=== PATIENT | male | born 1980 | race Hispanic/Latino ===

== ENCOUNTER 2018-06-16 01:34 | Emergency (ER) | payer OTHER, SELFPAY ==
[2018-06-16] MEDS ORDERED: LIDOCAINE 1% W/EPI 1:100,000 MDV 50 ML VIAL ONE (01:48)
[2018-06-16] MEDS ORDERED: TETANUS & DIPHTHERIA TOX,ADULT 0.5 ML VIAL ONE (01:51)
--- NOTE | 2018-06-16 02:40 | ER ---
Nurse's Notes [facility] Name: Jaleel Olivas Age: 37 yrs Sex: Male : 1980 Arrival Date: 06/16/2018 Time: 01:36 Bed 13 Private MD: Diagnosis: Laceration without foreign body of scalp;Laceration without foreign body of eyelid and periocular area-Right Presentation: 06/16 01:44 Presenting complaint: Patient states: his dog jumped in his lap causing him to trip and bb hit the coffee table with his head he denies LOC has small lac to right upper lid and scalp. Transition of care: patient was not received from another setting of care. Mechanism of Injury: The problem was sustained at home, resulted from a fall. Risk considerations:. Onset of symptoms was June 16, 2018. Risk Assessment: Do you want to hurt yourself or someone else? Patient reports no desire to harm self or others. Initial Sepsis Screen: Does the patient meet any 2 criteria? No. Patient's initial sepsis screen is negative. Does the patient have a suspected source of infection? No. Patient's initial sepsis screen is negative. Care prior to arrival: None. 01:44 Method Of Arrival: Ambulatory bb 01:44 Acuity: LARRY 3 bb Triage Assessment: 01:57 Neuro: Reports. tl2 Historical: - Allergies: 01:48 Codeine; bb 01:48 Tape; bb - Home Meds: 01:48 Complera oral oral [Active]; Metformin Oral [Active]; Lisinopril Oral [Active]; bb - PMHx: 01:48 HIV; Diabetes - NIDDM; Hypertension; bb - PSHx: 01:48 Appendectomy; bb - Immunization history:: Adult Immunizations up to date, Last tetanus immunization: unknown. - Social history:: Smoking status: Patient/guardian denies using tobacco, Patient uses alcohol, occasionally. Patient/guardian denies using street drugs. - Ebola Screening: : No symptoms or risks identified at this time. Screenin:54 Abuse screen: Denies threats or abuse. Nutritional screening: No deficits noted. tl2 Tuberculosis screening: No symptoms or risk factors identified. Fall Risk None identified. Assessment: 01:54 General: Appears in no apparent distress. comfortable, Behavior is calm, cooperative, tl2 appropriate for age. Pain: Complains of pain in scalp and face. Neuro: Level of Consciousness is awake, alert, obeys commands, Oriented to person, place, time, situation. Cardiovascular: Denies chest pain. Respiratory: Airway is patent Respiratory effort is even, unlabored, Respiratory pattern is regular, symmetrical. Derm: Skin is pink, warm \T\ dry. Injury Description: Laceration sustained to right eye is clean, 0.5 to 2.5 cm long, not bleeding, was sustained 30-60 minutes ago. a small amount of bleeding noted at this time. Injury Description: Laceration sustained to left parietal area is clean, 0.5 to 2.5 cm long, not bleeding, was sustained 30-60 minutes ago. a small amount of bleeding noted at this time. 02:29 Reassessment: Patient appears in no apparent distress at this time. Patient and/or tl2 family updated on plan of care and expected duration. Pain level reassessed. Patient is alert, oriented x 3, equal unlabored respirations, skin warm/dry/pink. 02:49 Reassessment: Patient appears in no apparent distress at this time. Patient and/or tl2 family updated on plan of care and expected duration. Pain level reassessed. Patient is alert, oriented x 3, equal unlabored respirations, skin warm/dry/pink. Pt verbalized understanding of discharge instructions, need for follow up and wound care. Vital Signs: 01:48 BP 158 / 114; Pulse 83; Resp 16 S; Temp 98.7(O); Pulse Ox 96% on R/A; Weight 77.11 kg bb (R); Height 5 ft. 4 in. (162.56 cm) (R); Pain 7/10; 02:29 BP 155 / 97; Pulse 67; Resp 18; Pulse Ox 98% on R/A; tl2 01:48 Body Mass Index 29.18 (77.11 kg, 162.56 cm) bb [place] Coma Score: 01:41 Eye Response: spontaneous(4). Verbal Response: oriented(5). Motor Response: obeys cp commands(6). Total: 15. 01:44 Eye Response: spontaneous(4). Verbal Response: oriented(5). Motor Response: obeys bb commands(6). Total: 15. 02:38 Eye Response: spontaneous(4). Verbal Response: oriented(5). Motor Response: obeys cp commands(6). Total: 15. ED Course: 01:36 Patient arrived in ED. es 01:39 Matthieu Santiago PA is PHCP. cp 01:39 Wily Bill MD is Attending Physician. cp 01:45 Hali Lopez, RN is Primary Nurse. tl2 01:46 Triage completed. bb 01:48 Arm band placed on Patient placed in an exam room, on a stretcher, on pulse oximetry. bb Family accompanied patient. 01:54 Patient has correct armband on for positive identification. Bed in low position. Call tl2 light in reach. 02:29 Assist provider with laceration repair on right eye that was 2.5 cm. or less using tl2 sutures. Set up tray. Performed by Matthieu BURGOS Dressed with Neosporin, Patient tolerated well. Patient did not have IV access during this emergency room visit. 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 Exp: tl2 07/26/2019. Lot #: [id number]. } Route: IM; Site: right deltoid; 02:59 Follow up: Response: No adverse reaction tl2 Outcome: 02:39 Discharge ordered by . cp 02:49 Discharged to home ambulatory, with family. tl2 02:49 Condition: stable 02:49 Discharge instructions given to patient, family, Instructed on discharge instructions, follow up and referral plans. medication usage, wound care, Demonstrated understanding of instructions, follow-up care, medications, wound care. 02:59 Patient left the ED. tl2 Signatures: Aster Melgar Brenda, RN RN Matthieu Mina PA PA cp Knox, Taylor, RN RN tl2
--- NOTE | 2018-06-16 02:40 | EDPHYS ---
Physician Documentation [facility] Name: Jaleel Olivas Age: 37 yrs Sex: Male : 1980 Arrival Date: 06/16/2018 Time: 01:36 Bed 13 Private MD: ED Physician Wily Bill HPI: 06/16 01:41 This 37 yrs old Male presents to ER via Unassigned with complaints of Head cp Injury-Adult, Eye Injury. 01:41 The patient or guardian reports injury, a laceration. cp 01:41 Context of injury: The problem was sustained at home, resulted from trip and fall with cp head striking coffee table. Onset: The symptoms/episode began/occurred just prior to arrival. Associated signs and symptoms: Loss of consciousness: This patient did not experience any loss of consciousness. Pertinent negatives: nausea, neck pain, vomiting. Historical: - Allergies: 01:48 Codeine; bb 01:48 Tape; bb - Home Meds: 01:48 Complera oral oral [Active]; Metformin Oral [Active]; Lisinopril Oral [Active]; bb - PMHx: 01:48 HIV; Diabetes - NIDDM; Hypertension; bb - PSHx: 01:48 Appendectomy; bb - Immunization history:: Adult Immunizations up to date, Last tetanus immunization: unknown. - Social history:: Smoking status: Patient/guardian denies using tobacco, Patient uses alcohol, occasionally. Patient/guardian denies using street drugs. - Ebola Screening: : No symptoms or risks identified at this time. ROS: 01:48 Eyes: Negative for injury, pain, redness, and discharge. cp 01:48 Constitutional: Negative for body aches, chills, fever, poor PO intake. 01:48 Neck: Negative for pain with movement, pain at rest, stiffness, tenderness, bony tenderness. 01:48 Cardiovascular: Negative for chest pain, edema, palpitations. 01:48 Respiratory: Negative for cough, shortness of breath, wheezing. 01:48 Abdomen/GI: Negative for abdominal pain, nausea, vomiting, diarrhea, constipation. 01:48 Skin: Positive for laceration(s), of the face and scalp. 01:48 Neuro: Negative for altered mental status, headache, loss of consciousness, syncope, near syncope, weakness. 01:48 All other systems are negative. Exam: 01:50 Constitutional: The patient appears in no acute distress, alert, awake, non-toxic, well cp developed, well nourished. 01:50 Head/face: Noted is a laceration(s), that is deep, of the right side of the back of cp head and upper corner right eye, Sinus tenderness, is not appreciated. 01:50 Eyes: Pupils: equal, round, and reactive to light and accomodation, Extraocular movements: intact throughout, Conjunctiva: normal, no exudate, no injection, Sclera: no appreciated abnormality. 01:50 ENT: External ear(s): are unremarkable, Ear canal(s): are normal, clear, Nose: is normal, Mouth: Lips: moist, Oral mucosa: pink and intact, moist, Posterior pharynx: is normal, airway is patent. 01:50 Neck: C-spine: vertebral tenderness, is not appreciated, crepitus, is not appreciated, ROM/movement: is normal, is supple, without pain, no range of motions limitations, no nuchal rigidity. 01:50 Chest/axilla: Inspection: normal, Palpation: is normal, no crepitus, no tenderness. 01:50 Cardiovascular: Rate: normal, Rhythm: regular. 01:50 Respiratory: the patient does not display signs of respiratory distress, Respirations: normal, no use of accessory muscles, no retractions, no splinting, no tachypnea. 01:50 Abdomen/GI: Exam negative for discomfort, distension, guarding, Inspection: abdomen appears normal. 01:50 Back: pain, is absent, ROM is normal. 01:50 Neuro: Orientation: to person, place \T\ time. Mentation: lucid, able to follow commands, Cerebellar function: is grossly normal, Motor: moves all fours, strength is normal, Sensation: no obvious gross deficits. Vital Signs: 01:48 BP 158 / 114; Pulse 83; Resp 16 S; Temp 98.7(O); Pulse Ox 96% on R/A; Weight 77.11 kg bb (R); Height 5 ft. 4 in. (162.56 cm) (R); Pain 7/10; 02:29 BP 155 / 97; Pulse 67; Resp 18; Pulse Ox 98% on R/A; tl2 01:48 Body Mass Index 29.18 (77.11 kg, 162.56 cm) [place] Coma Score: 01:41 Eye Response: spontaneous(4). Verbal Response: oriented(5). Motor Response: obeys cp commands(6). Total: 15. 01:44 Eye Response: spontaneous(4). Verbal Response: oriented(5). Motor Response: obeys bb commands(6). Total: 15. 02:38 Eye Response: spontaneous(4). Verbal Response: oriented(5). Motor Response: obeys cp commands(6). Total: 15. Laceration: 02:35 Wound Repair of 1.5cm ( 0.6in ) subcutaneous laceration to scalp. Linear shaped.. cp Distal neuro/vascular/tendon intact. Anesthesia: none with none. Wound prep: Moderate cleansing by nurse. Skin closed with 2 1-0 Cropsey using staple gun. Dressed with Bacitracin. Patient tolerated well. 02:35 Wound Repair of 1.5cm ( 0.6in ) subcutaneous laceration to corner above right eye. cp Linear shaped.. Distal neuro/vascular/tendon intact. Anesthesia: Wound infiltrated with 2 mls of 1% lidocaine, Local anesthetic administered with 1% lidocaine w/ Epi. Wound prep: Moderate cleansing by nurse. Skin closed with 3 6-0 Prolene using interrupted sutures and sterile technique. Dressed with Bacitracin, bandaid. Patient tolerated well. MDM: 01:39 Patient medically screened. cp 02:38 Data reviewed: vital signs, nurses notes, and as a result, I will discharge patient. 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 Exp: tl2 07/26/2019. Lot #: [id number]. } Route: IM; Site: right deltoid; 02:59 Follow up: Response: No adverse reaction tl2 Disposition: 02:49 Chart complete. cp 03:00 Co-signature as Attending Physician, Wily Bill MD. jennifer Disposition: 06/16/18 02:39 Discharged to Home. Impression: Laceration without foreign body of scalp, Laceration without foreign body of eyelid and periocular area - Right. - Condition is Stable. - Discharge Instructions: Head Injury, Adult, Laceration Care, Adult, Stitches, Cropsey, or Adhesive Wound Closure. - Medication Reconciliation Form, Thank You Letter, Antibiotic Education, Prescription Opioid Use form. - Follow up: Private Physician; When: 5 - 6 days; Reason: Staple/Suture removal. - Problem is new. - Symptoms have improved. Signatures: Wily Bill MD MD pkl Ballard, Brenda RN RN Matthieu Mina PA PA cp Knox, Taylor, RN RN tl2 Corrections: (The following items were deleted from the chart) 02:59 02:39 06/16/2018 02:39 Discharged to Home. Impression: Laceration without foreign body tl2 of scalp; Laceration without foreign body of eyelid and periocular area - Right. Condition is Stable. Forms are Medication Reconciliation Form, Thank You Letter, Antibiotic Education, Prescription Opioid Use. Follow up: Private Physician; When: 5 - 6 days; Reason: Staple/Suture removal. Problem is new. Symptoms have improved. cp
== END 2018-06-16 02:59 | disposition home or self-care (01) ==
LOC: ER 01:34
PROC: 0JQ00ZZ Repair Scalp Subcutaneous Tissue and Fascia, Open Approach (ICD-10-PCS; principal; 2018-06-16)
PROC: 08QNXZZ Repair Right Upper Eyelid, External Approach (ICD-10-PCS; 2018-06-16)
DX: S01.111A Laceration without foreign body of right eyelid and periocular area, initial encounter (principal); S01.01XA Laceration without foreign body of scalp, initial encounter; W01.190A Fall on same level from slipping, tripping and stumbling with subsequent striking against furniture, initial encounter; Y93.01 Activity, walking, marching and hiking; Y92.019 Unspecified place in single-family (private) house as the place of occurrence of the external cause; Z88.5 Allergy status to narcotic agent; Z91.048 Other nonmedicinal substance allergy status; Z21 Asymptomatic human immunodeficiency virus [HIV] infection status; E11.9 Type 2 diabetes mellitus without complications; Z79.84 Long term (current) use of oral hypoglycemic drugs; I10 Essential (primary) hypertension
CPT/HCPCS: 90714; 99283

== ENCOUNTER 2019-04-23 19:08 | Inpatient (IN) | payer OTHER ==
--- OUTSIDE RECORDS SUMMARY | 2019-04-23 19:11 | XMS REPORT ---
:1980 Author Organization [facility] Address [address] [place] [address] Phone Allergies, Adverse Reactions, Alerts Allergy Name Reaction Description Start Date Severity Status Provider CODEJIMI rash Moderate Active Nestor Thomas OD Conditions or Problems Problem Name Problem Onset Status Entry Provider Comment Standard Annotate Code Date Date Description Diabetes 250.00 Active Rupert Diabetes mellitus, 04/17 04/17 Karie MASSEY mellitus without type II mention of complication, type II or unspecified type, not stated as uncontrolled Hyperlipidemi 272.4 Active Rupert Other and a 11/21 07/20 Karie MASSEY unspecified hyperlipidemia Preventive V70.0 Active Rupert Routine general health care 11/21 11/21 Karie MASSEY medical examination at a health care facility ANXIETY Active Dc Anxiety state, DISORDER, 07/21 07/21 Cesar schroederified UNSPECIFIED Hallucination 780.1 Active Dc Hallucinations s 06/09 06/09 Cesar MASSEY HEPATITIS B, 070.32 Active Rupert 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 without mention of hepatic coma, chronic, without mention of hepatitis delta PTSD 309.81 Active Rupert Posttraumatic 05/06 05/06 Karie MASSEY stress disorder HIV INFECTION 042 02/2009 Active Rupert Human No OI's, 04/17 Karie MASSEY immunodeficiency willie ~ virus [HIV] 259 disease Hypertension 401.9 2009 Active Rupert Unspecified 05/06 Karie MASSEY essential hypertension Screening for V77.91 Inactive Rupert Screening for hyperlipidemi 11/21 11/21 Karie MASSEY lipoid disorders a Myopia - OU 367.1 2016/0 Inactive Rupert Myopia 06/09 11/21 Karie MASSEY Myopia - OU 367.1 Inactive Rupert Myopia 06/09 12/21 aKrie MASSEY Myopia - OU ICD-367.1 Inactive Rupert Tiwari MD Regular 367.21 Inactive Rupert Regular astigmatismKarie MD astigmatism bilateral Regular 367.21 Inactive Rupert Regular astigmatismKarie MD astigmatism bilateral Regular ICD-367.21 Inactive Rupert astigmatismKarie MD bilateral Screening V73.89 Inactive Casa Zhang Screening examination for Oneil MASSEY examination for other specified other specified viral diseases viral diseases Screening ICD-V73.89 Inactive Casa Zhang examination for Oneil MASSEY other specified viral diseases ASTIGMATISM 367.20 Inactive Rupert Valdez MD unspecified ASTIGMATISM ICD-367.20 Inactive Rupert Tiwari MD MYOPIA 367.1 Inactive Rupert Tiwari MD Myopia MYOPIA ICD-367.1 Inactive Rupert Tiwari MD SPECIAL V73.89 Inactive Rupert MYERS MD examination for EXAMINATION OTH other specified SPEC VIRAL DZ viral diseases SPECIAL SCREENING ICD-V73.89 Inactive Rupert Tiwari EXAMINATION OTH MD SPEC VIRAL DZ Medication List Medication Instructions Start Stop Generic NDC Status Provider Patient Date Date Name Instruction ANTABUSE 250 1 By DISULFIRAM 89692936583 Active Zishan Active MG ORAL Mouth Samiuddin TABLET Every MD Day METFORMIN HCL 1 by METFORMIN HCL 35890129585 Active Rupert Active 500 MG ORAL mouth Karie MASSEY TABLET twice a day NICOTINE NICOTINE 57178005871 Active Sneha Active 14- [place]st MG/24HR TRANSDERMAL KIT LEXAPRO 10 MG 1 By ESCITALOPRAM 42873782461 Active Dc Active ORAL TABLET Mouth OXALATE Samiuddin Every MD Day LISINOPRIL 20 1 by LISINOPRIL 88594812805 Active Rupert Active MG ORAL mouth Karie MASSEY TABLET every day COMPLERA 1 by EMTRICITAB-RIL 45082694724 Active Rupert Active 200-25-300 MG mouth PIVIR-TENOFOVI Karie MASSEY ORAL TABLET daily R with food RISPERDAL 2 1 By RISPERDAL 2 843756 RISPERIDONE Inactive MG ORAL Mouth at MG ORAL TABLET bedtime TABLET MIRTAZAPINE MIRTAZAPINE MIRTAZAPINE Inactive TABLET TABLET TABS RISPERDAL 1 By RISPERIDONE 82113590067 No Zishan Active 2 MG ORAL Mouth at Longer Samiuddin TABLET bedtime Active MIRTAZAPIN MIRTAZAPINE 45505882943 No Zishan Active E TABLET TABS Longer Samijose c Active Advance Directives Directive Description Start Date DISCUSSED - NO DECISION MADE Immunizations Vaccine Administration Date Value Standard Description influenza immunization given elsewhere influenza virus vaccine, (Flu Vax) has been unspecified formulation administered influenza immunization given elsewhere influenza virus vaccine, (Flu Vax) has been unspecified formulation administered pneumococcal given pneumococcal immunization polysaccharide vaccine, administered 23 valent influenza immunization given influenza virus vaccine, (Flu Vax) has been unspecified formulation administered PEDIATRIC PNEUMOCOCCAL given pneumococcal conjugate VACCINE ([id number]) #1 vaccine, 13 valent Vital Signs Date Name Value Unit Range Description blood pressure, diastolic 99 mm[Hg] BP sethi blood pressure, systolic 155 mm[Hg] BP sys height E&M 65 [in_us] Bdy height pulse rate E&M 91` /min Heart rate weight E&M 157 [lb_av] Weight Measured blood pressure, diastolic, second 86 mm[Hg] BP sethi observation blood pressure, diastolic 86 mm[Hg] BP sethi blood pressure, systolic, second 136 mm[Hg] BP sys observation blood pressure, systolic 136 mm[Hg] BP sys height E&M 65 [in_us] Bdy height pulse rate E&M 102 /min Heart rate respiratory rate E&M 16 /min Resp rate temperature E&M 98.1 [degF] Body temperature weight E&M 153 [lb_av] Weight Measured blood pressure, diastolic 89 mm[Hg] BP sethi blood pressure, systolic 166 mm[Hg] BP sys height E&M 65 [in_us] Bdy height pulse rate E&M 83 /min Heart rate weight E&M 161 [lb_av] Weight Measured Diagnostic Results Date Name Value Unit Range Description Lab Report: CD4/CD8 Ratio Profile, Comp. Metabolic Panel (14), Lipid Munoz ... - Serology Hepatitis B virus DNA, by Polymerase Chain HBV DNA not detected Reaction Lab Report: LIPID PANEL, STANDARD, COMPREHENSIVE METABOLIC PANEL, LYMPHO ... - Chemistry cholesterol, non-HDL, total 154 MG/DL (CALC) mg/dL <130 Lab Report: CD4/CD8 Ratio Profile, Comp. Metabolic Panel (14), Lipid Munoz ... - Chemistry very low density lipoproteins VLDLCH mg/dL mg/dL 5-40 Office Visit: H&P - Chemistry hepatitis B surface antigen reactive Lab Report: HIV 1 RNA, QUANTITATIVE REAL TIME PCR - Chemistry HIV-1 RNA (log 10) <1.30 DETECTED Log copies/mL NOT DETECTED Lab Report: LIPID PANEL, STANDARD, COMPREHENSIVE METABOLIC PANEL, LYMPHO ... - Chemistry chloride, serum 105 mmol/L 98-110 Office Visit: H&P - Microbiology hepatitis A antibody, total Reactive Lab Report: LIPID PANEL, STANDARD, COMPREHENSIVE METABOLIC PANEL, LYMPHO ... - Chemistry urea nitrogen, blood 10 mg/dL 7-25 Lab Report: LIPID PANEL, STANDARD, COMPREHENSIVE METABOLIC PANEL, LYMPHO ... - Hematology Absolute Eosinophil count 100 {Cells}/uL 15-500 Lab Report: QuantiFERON TB Gold (In Tube), QuantiFERON In Tube - Hematology Quantiferon Gold TB blood test for tuberculosis Negative Negative screening Lab Report: LIPID PANEL, STANDARD, COMPREHENSIVE METABOLIC PANEL, LYMPHO ... - Hematology mean corpuscular hemoglobin concentration, RBC 35.4 G/DL % 32.0- 36.0 Lab Report: LIPID PANEL, STANDARD, COMPREHENSIVE METABOLIC PANEL, LYMPHO ... - Chemistry cholesterol/HDL ratio, serum, percent 7.4 (calc) <5.0 Lab Report: LIPID PANEL, STANDARD, COMPREHENSIVE METABOLIC PANEL, LYMPHO ... - Hematology erythrocyte (RBC) count 5.19 MILLION/UL 10*6/mm3 4.20-5.80 Lab Report: CD4/CD8 Ratio Profile, Comp. Metabolic Panel (14), Lipid Munoz ... - Serology hepatitis C antibody, serum 0.1 0.0-0.9 Lab Report: LIPID PANEL, STANDARD, COMPREHENSIVE METABOLIC PANEL, LYMPHO ... - Chemistry absolute CD8 [phone] Lab Report: LIPID PANEL, STANDARD, COMPREHENSIVE METABOLIC PANEL, LYMPHO ... - Hematology mean platelet volume 11.2 fL 7.5-12.5 Lab Report: CD4/CD8 Ratio Profile, Comp. Metabolic Panel (14), Lipid Munoz ... - Chemistry Absolute Neutrophils 7.3 X10E3/UL 10*3/uL 1.4-7.0 Lab Report: LIPID PANEL, STANDARD, COMPREHENSIVE METABOLIC PANEL, LYMPHO ... - Chemistry LDL cholesterol, serum LDL cholesterol not mg/dL calculated. Triglyceride le... mg/dL (calc) urea nitrogen/creatinine ratio, NOT APPLICABLE (calc) 6-22 serum Lab Report: LIPID PANEL, STANDARD, COMPREHENSIVE METABOLIC PANEL, LYMPHO ... - Hematology mean corpuscular volume, RBC 88.1 fL 80.0-100.0 Office Visit: H&P - Serology Hepatitis C virus (HCV) RNA, PCR, quantitative Not-detected [iU]/ mL Lab Report: LIPID PANEL, STANDARD, COMPREHENSIVE METABOLIC PANEL, LYMPHO ... - Chemistry HDL cholesterol, serum 24 mg/dL >40 Lab Report: LIPID PANEL, STANDARD, COMPREHENSIVE METABOLIC PANEL, LYMPHO ... - Hematology monocytes as percent of blood leukocytes 4.2 % Lab Report: LIPID PANEL, STANDARD, COMPREHENSIVE METABOLIC PANEL, LYMPHO ... - Chemistry albumin/globulin ratio, serum 1.7 (calc) 1.0-2.5 creatinine, serum 0.96 mg/dL 0.60-1.35 Lab Report: LIPID PANEL, STANDARD, COMPREHENSIVE METABOLIC PANEL, LYMPHO ... - Hematology Absolute Monocyte count 349 {Cells}/uL 200-950 Lab Report: LIPID PANEL, STANDARD, COMPREHENSIVE METABOLIC PANEL, LYMPHO ... - Chemistry cholesterol, serum 178 mg/dL <200 bilirubin, serum, total 0.7 mg/dL 0.2-1.2 Lab Report: CD4/CD8 Ratio Profile, Comp. Metabolic Panel (14), Lipid Munoz ... - Hematology Eosinophil Absolute Count 0.2 X10E3/UL 10*3/uL 0.0-0.4 Lab Report: Chlamydia/GC Amplification - Lab chlamydia DNA probe Negative Negative Lab Report: LIPID PANEL, STANDARD, COMPREHENSIVE METABOLIC PANEL, LYMPHO ... - Chemistry aspartate aminotransferase (SGOT), serum 51 U/L 10-40 Lab Report: LIPID PANEL, STANDARD, COMPREHENSIVE METABOLIC PANEL, LYMPHO ... - Hematology red blood cell distribution width 13.1 % 11.0-15.0 Lab Report: LIPID PANEL, STANDARD, COMPREHENSIVE METABOLIC PANEL, LYMPHO ... - Chemistry globulins, serum, total 2.6 G/DL (CALC) g/dL 1.9-3.7 Lab Report: LIPID PANEL, STANDARD, COMPREHENSIVE METABOLIC PANEL, LYMPHO ... - Hematology leukocyte count, blood 8.3 THOUSAND/UL 10*3/mm3 3.8-10.8 Lab Report: LIPID PANEL, STANDARD, COMPREHENSIVE METABOLIC PANEL, LYMPHO ... - Chemistry potassium, serum 3.9 mmol/L 3.5-5.3 albumin, serum 4.4 g/dL 3.6-5.1 Lab Report: CD4/CD8 Ratio Profile, Comp. Metabolic Panel (14), Lipid Munoz ... - Chemistry immature granulocytes, percentage of total cells, blood 0 % Not Estab. Lab Report: CD4/CD8 Ratio Profile, Comp. Metabolic Panel (14), Lipid Munoz ... - Hematology lymphocyte count, blood, automated 2.4 X10E3/UL 10*3/mm3 0.7- 3.1 Lab Report: LIPID PANEL, STANDARD, COMPREHENSIVE METABOLIC PANEL, LYMPHO ... - Hematology hematocrit, blood 45.7 % 38.5-50.0 Lab Report: Chlamydia/GC Amplification - Microbiology Neisseria gonorrhoeae DNA probe Negative Negative Lab Report: LIPID PANEL, STANDARD, COMPREHENSIVE METABOLIC PANEL, LYMPHO ... - Chemistry sodium, serum 139 mmol/L 135-146 Office Visit: H&P - Serology toxoplasma gondii antibody, IgG <3 Lab Report: LIPID PANEL, STANDARD, COMPREHENSIVE METABOLIC PANEL, LYMPHO ... - Hematology neutrophils as percent of blood leukocytes 75.3 % basophils as percent of blood leukocytes 0.4 % Lab Report: HIV 1 RNA, QUANTITATIVE REAL TIME PCR - Serology HIV-1RNA, serum, by PCR, <20 DETECTED copies/mL {Copies}/mL NOT DETECTED quantitative Lab Report: LIPID PANEL, STANDARD, COMPREHENSIVE METABOLIC PANEL, LYMPHO ... - Serology rapid plasma reagin antibody, serum REACTIVE NON-REACTIVE Lab Report: LIPID PANEL, STANDARD, COMPREHENSIVE METABOLIC PANEL, LYMPHO ... - Chemistry CD4/CD8 ratio 1.52 0.86-5.00 Absolute Neutrophil count 6250 {Cells}/uL 4201-0670 carbon dioxide, venous blood 24 mmol/L 20-32 triglyceride, serum, fasting 407 mg/dL <150 calcium, serum 9.1 mg/dL 8.6-10.3 alanine aminotransferase (SGPT), serum 79 U/L 9-46 Lab Report: LIPID PANEL, STANDARD, COMPREHENSIVE METABOLIC PANEL, LYMPHO ... - Hematology mean corpuscular hemoglobin, RBC 31.2 pg 27.0-33.0 Lab Report: LIPID PANEL, STANDARD, COMPREHENSIVE METABOLIC PANEL, LYMPHO ... - Chemistry protein, total, serum 7.0 g/dL 6.1-8.1 Lab Report: CD4/CD8 Ratio Profile, Comp. Metabolic Panel (14), Lipid Munoz ... - Lab Treponema pallidum antibodies, by particle Positive Negative agglutination Lab Report: LIPID PANEL, STANDARD, COMPREHENSIVE METABOLIC PANEL, LYMPHO ... - Chemistry alkaline phosphatase, serum 87 U/L 40-115 Lab Report: LIPID PANEL, STANDARD, COMPREHENSIVE METABOLIC PANEL, LYMPHO ... - Hematology T-helper cells (CD4) as percent of blood lymphocytes 44 % 30-61 hemoglobin, blood 16.2 g/dL 13.2-17.1 T-suppressor cells (CD8) as percent of blood 29 % 12-42 lymphocytes lymphocytes as percent of blood leukocytes 18.9 % Lab Report: CD4/CD8 Ratio Profile, Comp. Metabolic Panel (14), Lipid Munoz ... - Chemistry hemoglobin A1C, blood, as % of total hemoglobin 6.4 % 4.8-5.6 Lab Report: LIPID PANEL, STANDARD, COMPREHENSIVE METABOLIC PANEL, LYMPHO ... - Hematology eosinophils as percent of blood leukocytes 1.2 % Lab Report: LIPID PANEL, STANDARD, COMPREHENSIVE METABOLIC PANEL, LYMPHO ... - Genetics/fertility eGFR if 114 mL/min/1.73m2 > OR=60 Lab Report: LIPID PANEL, STANDARD, COMPREHENSIVE METABOLIC PANEL, LYMPHO ... - Hematology basophil count, absolute 33 cells/uL 0-200 Lab Report: CD4/CD8 Ratio Profile, Comp. Metabolic Panel (14), Lipid Munoz ... - Chemistry globulin, serum 2.8 1.5-4.5 Lab Report: LIPID PANEL, STANDARD, COMPREHENSIVE METABOLIC PANEL, LYMPHO ... - Chemistry Estimated Glomerular Filtration 98 mL/min/1.73m2 > OR=60 Rate (calc) lymphocytes, absolute 1569 CELLS/UL 10*3/uL 850-3900 Office Visit: H&P - Serology hepatitis B surface antibody Non-reactive Lab Report: CD4/CD8 Ratio Profile, Comp. Metabolic Panel (14), Lipid Munoz ... - Hematology eosinophils as percent of blood leukocytes 2 % Not Estab. Lab Report: LIPID PANEL, STANDARD, COMPREHENSIVE METABOLIC PANEL, LYMPHO ... - Chemistry blood glucose, random 217 mg/dL 65-99 Lab Report: LIPID PANEL, STANDARD, COMPREHENSIVE METABOLIC PANEL, LYMPHO ... - Serology Treponema pallidum Ab, serum REACTIVE NON-REACTIVE Lab Report: LIPID PANEL, STANDARD, COMPREHENSIVE METABOLIC PANEL, LYMPHO ... - Hematology T-helper cells (CD4) count 663 CELLS/UL uL 490-1740 Lab Report: CD4/CD8 Ratio Profile, Comp. Metabolic Panel (14), Lipid Munoz ... - Hematology monocyte count, blood, automated 0.3 X10E3/UL 10*3/uL 0.1-0.9 Lab Report: LIPID PANEL, STANDARD, COMPREHENSIVE METABOLIC PANEL, LYMPHO ... - Hematology platelet count 230 THOUSAND/UL 10*3/mm3 140-400 Encounters Date Encounter Provider Code Facility Est Patient Exp Dc Guerrero MD CPT-08422 [facility] 10:34:43 PRINTING PRESS OPERATOR APPRENTICE Problem - 66985 [facility] Vst, Est Level Rupert Tiwari MD CPT-10576 [facility] 10:28:43 PRINTING PRESS OPERATOR APPRENTICE IV Est Patient Exp Dc Guerrero MD CPT-13062 [facility] 14:35:11 PRINTING PRESS OPERATOR APPRENTICE Problem - 88630 [facility] Vst, Est Level Rupert Tiwari MD CPT-98661 [facility] 10:30:49 PRINTING PRESS OPERATOR APPRENTICE IV Ofc Vst, Est Level Rupert Tiwari MD CPT-27077 [facility] 13:01:29 CDT IV Ofc Vst, Est Level Rupert Tiwari MD CPT-88728 [facility] 11:52:13 CDT IV Est Patient Exp Dc Guerrero MD CPT-88638 [facility] 17:52:05 PRINTING PRESS OPERATOR APPRENTICE Problem - 83363 [facility] Vst, Est Level Rupert Tiwari MD CPT-19014 [facility] 09:48:56 PRINTING PRESS OPERATOR APPRENTICE IV Est Patient Exp Dc Guerrero MD CPT-87855 [facility] 12:48:05 CDT Problem - 64351 [facility] Vst, New Level Rupert Tiwari MD CPT-41136 [facility] 10:53:43 CDT IV Procedures Code Procedure Name Date Entry Date Standard Description CPT-41683 Est Patient Intermediate Opt - 00285 11:18:32 PRINTING PRESS OPERATOR APPRENTICE CPT-97614 Pneumovax Vaccine PPSV23 12:57:50 CDT CPT-74620 INFLUENZA VACCINE QUADRIVALENT 3 YRS PLUS IM 09:45:57 PRINTING PRESS OPERATOR APPRENTICE CPT-84563 Dispensing Visit (UNLIVSTED OPHTHALMOLOGICAL 09:54:51 CDT SERVICE/PROCEDURE) CPT-79307 Diagnostic evaluation with [facility] - 52714 13:55:50 CDT CPT-07834 Est Patient Intermediate Opt - 19387 09:56:48 CDT CPT-45452 Est Patient Intermediate Opth - 95256 09:13:29 CDT CPT-76704 Prevnar (PCV13) IM 10:33:40 CDT CPT-81659 Dispensing Visit (UNLIVSTED OPHTHALMOLOGICAL 13:23:10 PRINTING PRESS OPERATOR APPRENTICE SERVICE/PROCEDURE) CPT-80825 Est Patient Intermediate Opt - 23791 16:00:58 PRINTING PRESS OPERATOR APPRENTICE CPT-09691 New Patient Intermediate [facility] - 99840 15:26:36 PRINTING PRESS OPERATOR APPRENTICE
--- OUTSIDE RECORDS SUMMARY | 2019-04-23 19:11 | XMS REPORT ---
:1980 Author Organization [facility] Address [address] Daniel [address] [place] [id number] Care Team Providers Name Role Phone Unavailable Unavailable Unavailable Problems This patient has no known problems. Allergies, Adverse Reactions, Alerts This patient has no known allergies or adverse reactions. Medications This patient has no known medications.
--- NOTE | 2019-04-23 19:48 | ER ---
Nurse's Notes [facility] Name: Jaleel Olivas Age: 38 yrs Sex: Male : 1980 Arrival Date: 04/23/2019 Time: 19:10 Bed 19 Private MD: Diagnosis: Type 2 diabetes mellitus;Abscess of anal and rectal regions;Human immunodeficiency virus [HIV] disease;Elevated white blood cell count Presentation: 04/23 19:23 Presenting complaint: Patient states: Cough, fatigue, fever x 1 week; States having lp1 "bumps on my bottom" that were noticed yesterday, pain when sitting. Transition of care: patient was not received from another setting of care. Onset of symptoms was April 23, 2019. Risk Assessment: Do you want to hurt yourself or someone else? Patient reports no desire to harm self or others. Initial Sepsis Screen: Does the patient meet any 2 criteria? No. Patient's initial sepsis screen is negative. Does the patient have a suspected source of infection? No. Patient's initial sepsis screen is negative. Care prior to arrival: None. 19:23 Method Of Arrival: Ambulatory lp1 19:23 Acuity: LARRY 3 lp1 Triage Assessment: 19:38 General: Appears in no apparent distress. Behavior is calm, cooperative, appropriate ak1 for age. Pain: Complains of pain in gluteal cleft. EENT: No signs and/or symptoms were reported regarding the EENT system. Neuro: No deficits noted. Cardiovascular: No deficits noted. Respiratory: No deficits noted. GI: No signs and/or symptoms were reported involving the gastrointestinal system. : No signs and/or symptoms were reported regarding the genitourinary system. Derm: Reports multiple small rectal abscess. Musculoskeletal: No signs and/or symptoms reported regarding the musculoskeletal system. Historical: - Allergies: 19:26 Codeine; lp1 19:26 Tape; lp1 - Home Meds: 19:26 Complera Oral [Active]; lisinopril Oral [Active]; Metformin Oral [Active]; lp1 - PMHx: 19:26 Diabetes - NIDDM; HIV; Hypertension; lp1 - PSHx: 19:26 Appendectomy; lp1 - Immunization history:: Adult Immunizations up to date. - Social history:: Smoking status: Patient/guardian denies using tobacco. - Ebola Screening: : No symptoms or risks identified at this time. - Family history:: not pertinent. Screenin:37 Abuse screen: Denies threats or abuse. Denies injuries from another. Nutritional ak1 screening: No deficits noted. Tuberculosis screening: No symptoms or risk factors identified. Fall Risk None identified. Assessment: 19:39 Reassessment: see triage assessment. General: Appears in no apparent distress. 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 ak1 22:03 Reassessment: Patient appears in no apparent distress at this time. No changes from ak1 previously documented assessment. Patient and/or family updated on plan of care and expected duration. Pain level reassessed. Patient states feeling better. Patient states symptoms have improved. Vital Signs: 19:24 BP 162 / 103; Pulse 118; Resp 18; Temp 99.1(O); Pulse Ox 98% on R/A; Weight 72.57 kg; lp1 Height 5 ft. 5 in. (165.10 cm); Pain 6/10; 22:04 BP 144 / 101; Pulse 99; Resp 16; Temp 98.6(O); Pulse Ox 100% on R/A; Pain 3/10; ak1 19:24 Body Mass Index 26.63 (72.57 kg, 165.10 cm) lp1 ED Course: 19:10 Patient arrived in ED. es 19:24 Triage completed. lp1 19:26 Arm band placed on right wrist. lp1 19:27 Matthieu Bowen MD is Attending Physician. anita 19:37 Giana Hua, NASEEM is Primary Nurse. ak1 19:39 Patient has correct armband on for positive identification. Bed in low position. Call ak1 light in reach. Side rails up X 1. Adult w/ patient. Pulse ox on. NIBP on. 19:46 Addison Gates MD is Hospitalizing Provider. anita 20:12 XRAY Chest (1 view) In Process Unspecified. EDMS 22:02 No provider procedures requiring assistance completed. Inserted saline lock: 20 gauge ak1 in right antecubital area, using aseptic technique. ,using aseptic technique. placed by andie Blood collected. 22:03 Patient admitted, IV remains in place. ak1 Administered Medications: 20:01 Drug: Zofran 4 mg Route: IVP; Site: right antecubital; ak1 21:08 Follow up: Response: No adverse reaction ak1 20:02 Drug: NS 0.9% 1000 ml Route: IV; Rate: 1 bolus; Site: right antecubital; ak1 21:07 Follow up: IV Status: Completed infusion; IV Intake: 1000ml ak1 20:02 Drug: NS 0.9% 1000 ml Route: IV; Rate: 125 ml/hr; Site: right antecubital; ak1 21:52 Follow up: IV Status: Infusion continued upon admission ak1 20: Drug: Zosyn 3.375 grams Route: IVPB; Infused Over: 60 mins; Site: right antecubital; ak1 21:07 Follow up: IV Status: Completed infusion; IV Intake: 100ml ak1 20: Drug: fentaNYL (PF) 50 mcg Route: IVP; Site: right antecubital; ak1 21:08 Follow up: Response: No adverse reaction ak1 21:08 Drug: Flagyl 500 mg Volume: 100 ml; Route: IVPB; Rate: 200 ml/hr; Infused Over: 30 ak1 mins; Site: right antecubital; 21:52 Follow up: IV Status: Completed infusion; IV Intake: 100ml ak1 Point of Care Testing: Blood Glucose: 19:55 Blood Glucose: 274 mg/dL; ak1 Ranges: Intake: 21:07 IV: 100ml; Total: 100ml. ak1 21:07 IV: 1000ml; Total: 1100ml. ak1 21:52 IV: 100ml; Total: 1200ml. ak1 Outcome: 19:47 Decision to Hospitalize by Provider. anita 20:09 Condition: stable ak1 20:09 Instructed on the need for admit. 22:56 Admitted to Med/surg accompanied by tech, family with patient, via wheelchair, room ak1 414, with chart, Report called to [facility] nurse for 414 23:16 Patient left the ED. ak1 Signatures: Dispatcher [employer] Matthieu Dunn MD MD cha Salyer, Edna es Pena, Laura, RN RN lp1 Giana Hua RN RN ak1
--- NOTE | 2019-04-23 19:48 | EDPHYS ---
Physician Documentation [facility] Name: Jaleel Olivas Age: 38 yrs Sex: Male : 1980 Arrival Date: 04/23/2019 Time: 19:10 Bed 19 Private MD: ED Physician Matthieu Bowen HPI: 04/23 19:40 This 38 yrs old Male presents to ER via Ambulatory with complaints of Cyst. anita 19:40 The patient presents with an abscess of the gluteal cleft, The patient presents with anita cellulitis of the gluteal cleft, the patient presents with a swollen area of the gluteal cleft. Description: erythematous, pointed, swollen, tense. Onset: The symptoms/episode began/occurred 3 day(s) ago. Possible cause(s): unknown. Associated signs and symptoms: Pertinent positives: erythema, fever, swelling. Modifying factors: the symptoms are alleviated by remaining still, the symptoms are aggravated by pressure, squeezing the lesion and expressing the contents. The patient has experienced similar episodes in the past, a few times. Historical: - Allergies: 19:26 Codeine; lp1 19:26 Tape; lp1 - Home Meds: 19:26 Complera Oral [Active]; lisinopril Oral [Active]; Metformin Oral [Active]; lp1 - PMHx: 19:26 Diabetes - NIDDM; HIV; Hypertension; lp1 - PSHx: 19:26 Appendectomy; lp1 - Immunization history:: Adult Immunizations up to date. - Social history:: Smoking status: Patient/guardian denies using tobacco. - Ebola Screening: : No symptoms or risks identified at this time. - Family history:: not pertinent. ROS: 19:40 Constitutional: Negative for fever, chills, and weight loss, Eyes: Negative for injury, anita pain, redness, and discharge, ENT: Negative for injury, pain, and discharge, Neck: Negative for injury, pain, and swelling, Cardiovascular: Negative for chest pain, palpitations, and edema, Respiratory: Negative for shortness of breath, cough, wheezing, and pleuritic chest pain, Abdomen/GI: Negative for abdominal pain, nausea, vomiting, diarrhea, and constipation, Back: Negative for injury and pain, : Negative for injury, bleeding, discharge, and swelling, MS/Extremity: Negative for injury and deformity, Neuro: Negative for headache, weakness, numbness, tingling, and seizure, Psych: Negative for depression, anxiety, suicide ideation, homicidal ideation, and hallucinations, Allergy/Immunology: Negative for hives, rash, and allergies, Endocrine: Negative for neck swelling, polydipsia, polyuria, polyphagia, and marked weight changes, Hematologic/Lymphatic: Negative for swollen nodes, abnormal bleeding, and unusual bruising. 19:40 Skin: Positive for cellulitis, of the gluteal cleft. Exam: 19:40 Head/Face: Normocephalic, atraumatic. Eyes: Pupils equal round and reactive to light, anita extra-ocular motions intact. Lids and lashes normal. Conjunctiva and sclera are non-icteric and not injected. Cornea within normal limits. Periorbital areas with no swelling, redness, or edema. ENT: Nares patent. No nasal discharge, no septal abnormalities noted. Tympanic membranes are normal and external auditory canals are clear. Oropharynx with no redness, swelling, or masses, exudates, or evidence of obstruction, uvula midline. Mucous membranes moist. Neck: Trachea midline, no thyromegaly or masses palpated, and no cervical lymphadenopathy. Supple, full range of motion without nuchal rigidity, or vertebral point tenderness. No Meningismus. Chest/axilla: Normal chest wall appearance and motion. Nontender with no deformity. No lesions are appreciated. Respiratory: Lungs have equal breath sounds bilaterally, clear to auscultation and percussion. No rales, rhonchi or wheezes noted. No increased work of breathing, no retractions or nasal flaring. Abdomen/GI: Soft, non-tender, with normal bowel sounds. No distension or tympany. No guarding or rebound. No evidence of tenderness throughout. Back: No spinal tenderness. No costovertebral tenderness. Full range of motion. Male : Normal genitalia with no discharge or lesions. Skin: Warm, dry with normal turgor. Normal color with no rashes, no lesions, and no evidence of cellulitis. 19:40 Constitutional: The patient appears febrile. 19:40 Cardiovascular: Rate: tachycardic, Rhythm: regular, Pulses: Pulses are 4+ in bilateral radial, brachial, femoral, popliteal, posterior tibial and and dorsalis pedis arteries.. Heart sounds: normal, Edema: is not appreciated. 19:40 Abdomen/GI: Inspection: abdomen appears normal, Bowel sounds: normal, Palpation: abdomen is soft and non-tender, Rectal exam: swelling, that is moderate, tenderness, that is moderate, right perirectal abscess. Liver: no appreciated palpable abnormalities, Hernia: not appreciated. Vital Signs: 19:24 BP 162 / 103; Pulse 118; Resp 18; Temp 99.1(O); Pulse Ox 98% on R/A; Weight 72.57 kg; lp1 Height 5 ft. 5 in. (165.10 cm); Pain 6/10; 22:04 BP 144 / 101; Pulse 99; Resp 16; Temp 98.6(O); Pulse Ox 100% on R/A; Pain 3/10; ak1 19:24 Body Mass Index 26.63 (72.57 kg, 165.10 cm) lp1 MDM: 19:27 Patient medically screened. [facility] 19:45 Data reviewed: vital signs, nurses notes, lab test result(s), EKG, radiologic studies, [facility] CT scan, plain films. 04/23 19:40 Order name: Basic Metabolic Panel [facility] 04/23 19:40 Order name: CBC with Diff [facility] 04/23 19:40 Order name: LFT's; Complete Time: 20:35 [facility] 04/23 19:40 Order name: Magnesium; Complete Time: 20:35 [facility] 04/23 19:40 Order name: NT PRO-BNP; Complete Time: 20:35 [facility] 04/23 19:40 Order name: PT-INR; Complete Time: 20:35 [facility] 04/23 19:40 Order name: Troponin (emerg Dept Use Only); Complete Time: 20:35 [facility] 04/23 19:40 Order name: XRAY Chest (1 view); Complete Time: 20:35 [facility] 04/23 19:41 Order name: Basic Metabolic Panel; Complete Time: 20:35 [facility] 04/23 19:42 Order name: CBC with Automated Diff; Complete Time: 20:35 [facility] 04/23 19:45 Order name: CT Abd/Pelvis - PO and IV Contrast [facility] 04/23 19:40 Order name: EKG; Complete Time: 19:42 [facility] 04/23 19:40 Order name: Cardiac monitoring; Complete Time: 20:04 [facility] 04/23 19:40 Order name: EKG - Nurse/Tech; Complete Time: 20:04 [facility] 04/23 19:40 Order name: IV Saline Lock; Complete Time: 20:03 [facility] 04/23 19:40 Order name: Labs collected and sent; Complete Time: 20:03 [facility] 04/23 19:40 Order name: O2 Per Protocol; Complete Time: 20:03 [facility] 04/23 19:40 Order name: O2 Sat Monitoring; Complete Time: 20:03 [facility] 04/23 19:40 Order name: Blood Glucose Level; Complete Time: 20:03 [facility] Administered Medications: 20:01 Drug: Zofran 4 mg Route: IVP; Site: right antecubital; ak1 21:08 Follow up: Response: No adverse reaction ak1 20:02 Drug: NS 0.9% 1000 ml Route: IV; Rate: 1 bolus; Site: right antecubital; ak1 21:07 Follow up: IV Status: Completed infusion; IV Intake: 1000ml ak1 20:02 Drug: NS 0.9% 1000 ml Route: IV; Rate: 125 ml/hr; Site: right antecubital; ak1 21:52 Follow up: IV Status: Infusion continued upon admission ak1 20:02 Drug: Zosyn 3.375 grams Route: IVPB; Infused Over: 60 mins; Site: right antecubital; ak1 21:07 Follow up: IV Status: Completed infusion; IV Intake: 100ml ak1 20:02 Drug: fentaNYL (PF) 50 mcg Route: IVP; Site: right antecubital; ak1 21:08 Follow up: Response: No adverse reaction ak1 21:08 Drug: Flagyl 500 mg Volume: 100 ml; Route: IVPB; Rate: 200 ml/hr; Infused Over: 30 ak1 mins; Site: right antecubital; 21:52 Follow up: IV Status: Completed infusion; IV Intake: 100ml ak1 Point of Care Testing: Blood Glucose: 19:55 Blood Glucose: 274 mg/dL; ak1 Ranges: Critical Glucose Levels:Adult <50 mg/dl or >400 mg/dl <40 mg/dl or >180 mg/dl Disposition: 04/23/19 19:47 Hospitalization ordered by Addison Gates for Inpatient Admission. Preliminary diagnosis are Type 2 diabetes mellitus, Abscess of anal and rectal regions, Human immunodeficiency virus [HIV] disease, Elevated white blood cell count. - Bed requested for Telemetry/Medrg (Inpatient). - Status is Inpatient Admission. ak1 - Condition is Fair. - Problem is new. - Symptoms have improved. UTI on Admission? No Signatures: Dispatcher [employer] Matthieu Dnun MD MD cha Pena, Laura, RN RN lp1 Giana Hua RN RN ak1 Cait Wilder RN RN cg Corrections: (The following items were deleted from the chart) 19:49 19:47 Hospitalization Ordered by Addison Gates MD for Inpatient Admission. Preliminary [facility] diagnosis is Type 2 diabetes mellitus; Abscess of anal and rectal regions. Bed requested for Telemetry/MedSurg (Inpatient). Status is Inpatient Admission. Condition is Fair. Problem is new. Symptoms have improved. UTI on Admission? No. [facility] 20:35 19:49 04/23/2019 19:47 Hospitalization Ordered by Addison Gates MD for Inpatient anita Admission. Preliminary diagnosis is Type 2 diabetes mellitus; Abscess of anal and rectal regions; Human immunodeficiency virus [HIV] disease. Bed requested for Telemetry/MedSurg (Inpatient). Status is Inpatient Admission. Condition is Fair. Problem is new. Symptoms have improved. UTI on Admission? No. [facility] 20:53 20:35 04/23/2019 19:47 Hospitalization Ordered by Addison Gates MD for Inpatient cg Admission. Preliminary diagnosis is Type 2 diabetes mellitus; Abscess of anal and rectal regions; Human immunodeficiency virus [HIV] disease; Elevated white blood cell count. Bed requested for Telemetry/MedSurg (Inpatient). Status is Inpatient Admission. Condition is Fair. Problem is new. Symptoms have improved. UTI on Admission? No. [facility] 23:16 20:53 04/23/2019 19:47 Hospitalization Ordered by Addison Gates MD for Inpatient ak1 Admission. Preliminary diagnosis is Type 2 diabetes mellitus; Abscess of anal and rectal regions; Human immunodeficiency virus [HIV] disease; Elevated white blood cell count. Bed requested for Telemetry/MedSurg (Inpatient). Status is Inpatient Admission. Condition is Fair. Problem is new. Symptoms have improved. UTI on Admission? No. cg
[2019-04-23] MEDS ORDERED: PIPER/TAZO/NS 3.375gm 3.375 GM/100 ML BAG ONE (20:02)
[2019-04-23] MEDS ORDERED: ONDANSETRON 4 MG/2 ML VIAL ONE (20:02)
[2019-04-23] MEDS ORDERED: FENTANYL CITR 100 MCG/2 ML ONE (20:02)
[2019-04-23] MEDS ORDERED: NA CHLORIDE 0.9% 2,000 ML ONE (20:02)
[2019-04-23] MEDS ORDERED: METRONIDAZOLE 500mg IVPB 500 MG/100 ML BAG IV ONE (20:02)
[2019-04-23 20:13] LABS: Absolute Lymphocytes (CBC) 1.6 K/uL (0.7-4.9); Basophils % 0.2 % (0-1.3); Eosinophils % 0.8 % (0-4.4); Hematocrit 49.3 % (39.6-49.0); Lymphocytes % 10.4 % (15.3-44.8); MPV 9.4 fL (7.6-11.3); Monocytes % 6.2 % (3.3-12.3); RBC Red Blood Cell Count 5.55 M/uL (4.33-5.43)
--- NOTE | 2019-04-23 20:20 | RAD REPORT ---
EXAM DESCRIPTION: RAD - Chest Single View - 04/23/2019 8:11 pm CLINICAL HISTORY: COUGH Chest pain. COMPARISON: <Comparisons> FINDINGS: Portable technique limits examination quality. The lungs are grossly clear. The heart is normal in size. No displaced fractures. IMPRESSION: No acute intrathoracic process suspected.
[2019-04-23 20:21] LABS: Protime INR 1.08
[2019-04-23 20:23] LABS: ALT/SGPT 44 U/L (12-78); AST/SGOT 12 U/L (15-37); Alkaline Phosphatase 122 U/L (45-117); BUN Blood Urea Nitrogen 7 mg/dL (7-18); Bicarbonate 24 mmol/L (21-32); Bilirubin Direct 0.2 mg/dL (0-0.2); Bilirubin Total 0.9 mg/dL (0.2-1.0); Glucose Level 297 mg/dL (74-106); Magnesium 2.3 mg/dL (1.8-2.4); NT PRO-BNP 24 pg/mL (<125); Potassium 3.6 mmol/L (3.5-5.1); Protein, Total 7.9 g/dL (6.4-8.2); Sodium Level 137 mmol/L (136-145); Troponin (Emerg Dept Use Only) < 0.02 ng/mL (0.0-0.045)
--- NOTE | 2019-04-23 21:02 | P.HP ---
Certification for Inpatient Patient admitted to: Inpatient With expected LOS: >2 Midnights Practitioner: I am a practitioner with admitting privileges, knowledge of patient current condition, hospital course, and medical plan of care. Services: Services provided to patient in accordance with Admission requirements found in Title 42 Section 412.3 of the Code of Federal Regulations Patient History Date of Service: 04/23/19 Reason for admission: perianal abscess History of Present Illness: Mr Olivas is a 38 years old male with history of HIV, DM II, HTN, who has been with some cough and lethargic for the last week, also subjective fever. Yesterday, he noticed bumps in his buttock area. Today, the bumps became more tender and decided to come to ED for evaluation. At arrival temp was 99.1F, WBC 15.5K. At physical exam, he has multiple perianal bumps. He is not on any distress. Allergies codeine Allergy (Unverified 06/16/18 03:05) Unknown Tape Allergy (Uncoded 06/16/18 03:05) Unknown Home medications list reviewed: Yes - Past Medical/Surgical History -: HIV -: DM II -: HTN -: Appendectomy - Family History Family History: Reviewed- Non-Contributory - Social History Smoking Status: Never smoker Alcohol use: Yes CD- Drugs: No Place of Residence: Home Review of Systems 10-point ROS is otherwise unremarkable Physical Examination - Physical Exam General: Alert, In no apparent distress HEENT: Atraumatic, PERRLA, Mucous membr. moist/pink, EOMI, Sclerae nonicteric Neck: Supple, 2+ carotid pulse no bruit, No LAD, Without JVD or thyroid abnormality Respiratory: Clear to auscultation bilaterally, Normal air movement Cardiovascular: Regular rate/rhythm, Normal S1 S2 Gastrointestinal: Normal bowel sounds, No tenderness Musculoskeletal: No tenderness Integumentary: No rashes, Other (perianal multiple pinpoint lesions, no secretions or ope wounds noted. No crepitus.) Neurological: Normal gait, Normal speech, Normal strength at 5/5 x4 extr, Normal tone, Normal affect Lymphatics: No axilla or inguinal lymphadenopathy - Studies Laboratory Data (last 24 hrs) 04/23/19 19:52: PT 12.7 H, INR 1.08 04/23/19 19:52: WBC 15.5 H, Hgb 16.7, Hct 49.3 H, Plt Count 183 04/23/19 19:52: Sodium 137, Potassium 3.6, BUN 7, Creatinine 1.06, Glucose 297 H , Magnesium 2.3, Total Bilirubin 0.9, AST 12 L, ALT 44, Alkaline Phosphatase 122 H Assessment and Plan - Problems (Diagnosis) (1) Perianal abscess Current Visit: Yes Status: Acute (2) HIV (human immunodeficiency virus infection) Current Visit: Yes Status: Acute Qualifiers: HIV symptom status: asymptomatic Qualified Code(s): Z21 - Asymptomatic human immunodeficiency virus [HIV] infection status (3) HTN (hypertension) Current Visit: Yes Status: Acute Qualifiers: Hypertension type: essential hypertension Qualified Code(s): I10 - Essential (primary) hypertension (4) Diabetes mellitus, type II Current Visit: Yes Status: Acute Qualifiers: Diabetes mellitus termite treater insulin use: without termite treater use Diabetes mellitus complication status: with other specified complication Qualified Code (s): E11.69 - Type 2 diabetes mellitus with other specified complication - Plan Will admit the patient to start IV antibiotics, pending pelvic CT scan, consult Dr Crawley for evaluation and recommendations. - Advance Directives Does patient have a Living Will: No Does patient have a Durable POA for Healthcare: No - Code Status/Comfort Care Code Status Assessed: Yes Code Status: Full Code
[2019-04-23] MEDS ORDERED: ONDANSETRON 4 MG/2 ML VIAL IV PRN (23:19)
[2019-04-23] MEDS: INSULIN -REGULAR HUMAN 50 UNIT/0.5 ML ML SQ SCH (23:19)
[2019-04-23] MEDS ORDERED: POTASSIUM CL SA 10 MEQ TAB PO ONE (23:54)
[2019-04-24] MEDS: NA CHLORIDE 0.9% 1,000 ML IV SCH ×3 (00:06→21:03)
[2019-04-24] MEDS: ACETAMINOPHEN 500 MG TAB PO PRN ×2 (00:06→11:26)
[2019-04-24] MEDS: CIPROFLOXACIN 400mg IV 400 MG/200 ML BAG IV SCH ×4 (01:04→21:04)
[2019-04-24] MEDS: TRAMADOL HCL 50 MG TAB PO PRN ×3 (01:22→23:03)
[2019-04-24 01:58] LABS: Urine Appearance CLEAR; Urine Bilirubin NEGATIVE (NEG); Urine Blood NEGATIVE (NEG); Urine Color YELLOW; Urine Glucose 3+ (NEG); Urine Protein NEGATIVE (NEG); Urine Specific Gravity >=1.030 (1.005-1.030); Urine pH 5.5 (5.0-7.0)
[2019-04-24 02:02] LABS: Urine Microscopic Reflex NO UMIC
[2019-04-24] MEDS: METRONIDAZOLE 500mg IVPB 500 MG/100 ML BAG IV SCH ×3 (02:05→17:00)
[2019-04-24 05:43] LABS: Absolute Lymphocytes (CBC) 2.6 K/uL (0.7-4.9); Basophils % 0.3 % (0-1.3); Eosinophils % 1.3 % (0-4.4); Hematocrit 44.7 % (39.6-49.0); Lymphocytes % 21.1 % (15.3-44.8); MPV 9.2 fL (7.6-11.3); Monocytes % 7.4 % (3.3-12.3); RBC Red Blood Cell Count 5.13 M/uL (4.33-5.43)
[2019-04-24 05:49] LABS: Potassium 3.9 mmol/L (3.5-5.1)
[2019-04-24] MEDS: INSULIN -REGULAR HUMAN 50 UNIT/0.5 ML ML SQ SCH ×4 (07:30→21:03)
--- NOTE | 2019-04-24 07:55 | EKG ---
Test Date: 2019-04-23 Test Time: 19:59:45 Licensed Massage Therapist: [id number] MEASUREMENT RESULTS: Intervals: Rate: 109 WV: 124 QRSD: 76 QT: 310 QTc: 417 [place]: P: 51 WV: 124 QRS: 13 T: 29 INTERPRETIVE STATEMENTS: Sinus tachycardia Minimal voltage criteria for LVH, may be normal variant Borderline ECG No previous ECG available for comparison Electronically Signed On 04-24-19 07:54:27 CDT by Mukesh Daniel
[2019-04-24] MEDS ORDERED: PROPOFOL 200 MG/20 ML VIAL IV ONE ×2 (08:43→09:43)
[2019-04-24] MEDS ORDERED: FENTANYL CITR 100 MCG/2 ML ONE ×2 (08:44→09:48)
[2019-04-24] MEDS ORDERED: LIDOCAINE 2% MPF 5 ML VIAL ONE (08:44)
[2019-04-24] MEDS ORDERED: Mastisol Adhesive Liq ONE (08:47)
[2019-04-24] MEDS ORDERED: POTASSIUM CL SA 10 MEQ TAB PO ONE (09:00)
[2019-04-24] MEDS ORDERED: ENOXAPARIN 40 MG/0.4 ML SQ SCH (09:00)
[2019-04-24] MEDS ORDERED: DEXAMETHASONE 4 MG/ML VIAL ONE (09:24)
[2019-04-24] MEDS ORDERED: ONDANSETRON 4 MG/2 ML VIAL ONE (09:24)
--- NOTE | 2019-04-24 09:58 | RAD REPORT ---
EXAM DESCRIPTION: Abdomen Pelvis W Contrast CLINICAL HISTORY: 38 years Male sasha rectal abscess;Abd pain COMPARISON: None TECHNIQUE: Images were obtained in axial, sagittal, and coronal planes. Intravenous contrast was adm inistered. This exam was performed according to our departmental dose-optimization program which includes use of Automated Exposure Control, adjustment of the mA and/or kV according to patient size and/or use of i terative reconstruction technique. FINDINGS: Suspected fatty change involving the liver. Unremarkable pancreas, gallbladder, and adrena l glands bilaterally. Spleen is enlarged measuring 13.7 cm in greatest dimension. Contrast within sto mach. No obstructing renal calcifications bilaterally. No hydronephrosis bilaterally. Unremarkable bladder. Appendix identified consistent with history of prior appendectomy. No bowel obstruction, perforation, or inflammation. Diverticulosis distal left colon with no associated inflammatory change. Increased attenuation anal fissure with minimal ill-defined fluid. The findings could be consistent with cellul itis and phlegmon. No well-circumscribed enhancing fluid collection sasha-anal region. No dilatation abdominal aorta. Unremarkable portal vein. No adenopathy. Dependent atelectatic change right lung base medially. No acute osseous abnormality. IMPRESSION: Findings consistent with cellulitis and possibly phlegmon in region of anal fissure. No enhancing fluid collection or focal abscess seen. Fatty change involving the liver. Enlarged spleen. Electronically signed by: Jennifer Conley MD 04/23/2019 10:36 PM CDT Due to temporary technical issues with the PACS/Fluency reporting system, reports are being signed by the in house radiologist as a courtesy to ensure prompt reporting. The interpreting radiologist is f ully responsible for the content of the report.
--- NOTE | 2019-04-24 09:59 | P.BOP ---
Preoperative diagnosis: perianal pain, DM, HIV+, perianal abscess Postoperative diagnosis: same Primary procedure: EUA, anoscopy, rigid proctoscopy Secondary procedure: Incision and drainage of perianal complex abscess Estimated blood loss: <10cc Specimen: pus Findings: see dictation Anesthesia: General Complications: None Drain(s): Other (1/" nugauze) Transferred to: Recovery Room Condition: Good
--- NOTE | 2019-04-24 15:12 | HP ---
Date of Admission: 04/23/2019 Diagnoses: Perianal tenderness, perianal abscess. History Of Present Illness: This is the case of a 38-year-old patient with multiple medical problems , comes to us with perianal tenderness. The patient has history of hypertension and HIV positive. Hafsa tian was diagnosed with a perianal abscess and a surgical consult was obtained. He does not remember an y trauma. He remembers that it may be before he was HIV. He has history of a perianal abscess in th e past that sometimes open and close on its own. He does remember any workup done for that. He jose es any dysuria, hematuria, hematochezia, or melena. He denies any recent travelling out of the [facility]. He denies any trauma. Denies any family member sick at home. Past Medical History: HIV positive, diabetes, hypertension. Past Surgical History: Include appendectomy. Social History: He does not smoke. He does not drink alcohol. Review of Systems: Ten points, otherwise unremarkable. Physical Examination: General: The patient is awake and alert. HEENT: Pupils are equal and reactive, anicteric. Neck: Supple. Chest: Clear. Abdomen: Soft and depressible. Nontender, nondistended. Bowel sounds positive. Pelvis: The perianal area is tender, it is difficult to examine due to tenderness, so we going to fi nalize the examination under anesthesia. The patient has perianal tenderness with purulent discharge . Cannot rule out a fistula. Extremities: Good capillary refill. Laboratory Data: Blood work shows a WBC count of 15.5, hemoglobin of 16.7. INR of 1.08. Sodium is 137, creatinine is 1.06. CAT scan of the abdomen and pelvis, official result is still pending, altho ug preliminary shows finding consistent with cellulitis and phlegmon over the perianal region consis tent with an abscess. Impression: This is the case of a 38-year-old patient with perianal abscess. Examination under anes thesia, anoscopy, rigid proctoscopy, incision and drainage of perineal abscess fully explained, which consist but not limited to infection, bleeding, damage to adjacent structures, anesthesia complicati on, anal stricture and incontinence, ME, and even . He also understands this may not relieve mendoza tian symptoms. He might need more than one surgical intervention. He understands he may require wound care. He understand, even though he might have some other pathology in that area, we may not be able to diagnose it at this moment, so he was advised to follow with colorectal surgeon, since based on w hat he is telling us with histories in the past, we cannot rule out that he has been having fistulas in the past. He understood. ELLIE Voice ID: [id number]
--- NOTE | 2019-04-24 16:05 | P.PN ---
Subjective Date of Service: 04/24/19 Chief Complaint: perianal abscess Patient seen and examined at bedside. Chart reviewed and case discussed with nursing staff. Pending surgical I&D today Review of Systems 10-point ROS is otherwise unremarkable Physical Examination - Vital Signs Temperature: 96.5 F Blood Pressure: 149/87 Pulse: 102 Respirations: 19 Pulse Ox (%): 94 - Physical Exam General: Alert, In no apparent distress HEENT: Atraumatic, PERRLA, EOMI Neck: Supple, JVD not distended Respiratory: Clear to auscultation bilaterally, Normal air movement Cardiovascular: Regular rate/rhythm, Normal S1 S2 Gastrointestinal: Normal bowel sounds, No tenderness Musculoskeletal: No tenderness Integumentary: No rashes Neurological: Normal speech, Normal tone, Normal affect Lymphatics: No axilla or inguinal lymphadenopathy - Studies Laboratory Data (last 24 hrs) 04/23/19 19:52: PT 12.7 H, INR 1.08 04/23/19 19:52: WBC 15.5 H, Hgb 16.7, Hct 49.3 H, Plt Count 183 04/23/19 19:52: Sodium 137, Potassium 3.6, BUN 7, Creatinine 1.06, Glucose 297 H , Magnesium 2.3, Total Bilirubin 0.9, AST 12 L, ALT 44, Alkaline Phosphatase 122 H Assessment And Plan - Current Problems (Diagnosis) (1) Perianal abscess Current Visit: Yes Status: Acute Plan: - Continue IV antibiotics - Pending surgical I&D today - Pain control (2) HIV (human immunodeficiency virus infection) Current Visit: Yes Status: Acute Plan: Continue home medications Qualifiers: HIV symptom status: asymptomatic Qualified Code(s): Z21 - Asymptomatic human immunodeficiency virus [HIV] infection status (3) HTN (hypertension) Current Visit: No Status: Chronic Plan: Continue home medications Qualifiers: Hypertension type: essential hypertension Qualified Code(s): I10 - Essential (primary) hypertension (4) Diabetes mellitus, type II Current Visit: No Status: Chronic Plan: Accuchecks and sliding scale insulin Strict BS monitoring Qualifiers: Diabetes mellitus middle or intermediate school principal insulin use: without halfway use Diabetes mellitus complication status: with other specified complication Qualified Code (s): E11.69 - Type 2 diabetes mellitus with other specified complication - Plan DVT prophylaxis: Encourage ambulation GI prophylaxis: None Diet: NPO till surgery; 1800 diabetic diet afterwards Disposition: Pending symptomatic improvement.
--- NOTE | 2019-04-24 16:17 | OP ---
Date of Procedure: 04/24/2019 Surgeon: Edward Crawley MD Preoperative Diagnoses: Perianal pain, diabetes, human immunodeficiency virus-positive, perianal abs cess. Postoperative Diagnoses: Perianal pain, diabetes, human immunodeficiency virus-positive, perianal ab scess. Procedures: Examination under anesthesia, anoscopy, rigid proctoscopy, incision and drainage of a co mplex perianal abscess. Anesthesia: General plus local. Packing: Nu Gauze quarter of an inch. Indications: This is the case of a 38-year-old patient with perianal abscess. Fully explained the b enefits, alternatives, and risks of above suggested procedures which include, but not limited to infe ction, bleeding, damage to adjacent structures, anesthesia complication, anal stricture and incontine nce, IA, and even . He also understands this may not relieve any symptoms. He might need more than one surgical intervention. He states he has those before, so we are recommending to him when th is improves to see his colorectal surgeon to trying to diagnose any other pathology including inflamm atory bowel disease or fistulas that may just be leading to the recurrence of this disease. He under stood, signed a consent. Description Of Procedure: The patient was brought to the operating room, placed in supine position. Anesthesia was done without complication. The patient was placed in lithotomy position for protecti on. Rectal examination was done after the time-out, followed by a rigid proctoscopy all the way abou t 9-10 cm. We could not advance anymore. There was a large amount of stool present. So, we went to the area of the perianal region, put an anoscope, with a window on the side to allow us to identify the anal canal. We could not see any specific fistula coming through this abscess. Once again, with the inflammation and the previous apparently scar tissue in that area, it is hard to diagnose at thi s moment with all the inflammation. We made an incision in the area of abscess, pus was obtained imm ediately. We found a cavity with multiple loculations. We explored all those loculations and remove d the pus, and cultured the pus, obtained hemostasis, and then packed the area with iodoform packing, quarter of an inch. Local anesthetic was applied over the area. The patient tolerated the procedur e well. Sponge count and instrument counts were correct. The patient was sent to Recovery in stable condition. HM/MODL Voice ID: [id number] Report ID: [id number]
[2019-04-24] MEDS: RILPIVIRINE PO SCH (17:33)
[2019-04-24] MEDS: TENOFOV PO SCH (17:33)
[2019-04-24] MEDS: EMTRICITAB PO SCH (17:33)
[2019-04-25] MEDS: METRONIDAZOLE 500mg IVPB 500 MG/100 ML BAG IV SCH ×2 (00:48→08:29)
[2019-04-25 05:54] LABS: BUN Blood Urea Nitrogen 12 mg/dL (7-18); Bicarbonate 23 mmol/L (21-32); Glucose Level 195 mg/dL (74-106); Potassium 3.7 mmol/L (3.5-5.1); Sodium Level 141 mmol/L (136-145)
[2019-04-25] MEDS: TRAMADOL HCL 50 MG TAB PO PRN (06:46)
[2019-04-25] MEDS: INSULIN -REGULAR HUMAN 50 UNIT/0.5 ML ML SQ SCH ×2 (07:30→11:23)
[2019-04-25] MEDS: TENOFOV PO SCH (08:29)
[2019-04-25] MEDS: RILPIVIRINE PO SCH (08:29)
[2019-04-25] MEDS: NA CHLORIDE 0.9% 1,000 ML IV SCH (08:29)
[2019-04-25] MEDS: EMTRICITAB PO SCH (08:29)
[2019-04-25] MEDS ORDERED: EMTRICITAB PO SCH (09:00)
[2019-04-25] MEDS ORDERED: RILPIVIRINE PO SCH (09:00)
[2019-04-25] MEDS ORDERED: LISINOPRIL 20 MG TAB PO SCH (09:00)
[2019-04-25] MEDS ORDERED: TENOFOV PO SCH (09:00)
[2019-04-25] MEDS ORDERED: POTASSIUM CL SA 10 MEQ TAB PO ONE (09:00)
[2019-04-25] MEDS: CIPROFLOXACIN 400mg IV 400 MG/200 ML BAG IV SCH (10:56)
--- NOTE | 2019-04-25 11:07 | P.DS ---
Admission Date: 04/23/19 Discharge Date: 04/25/19 Disposition: ROUTINE DISCHARGE Discharge Condition: GOOD Reason for Admission: perianal abscess Consultations: General surgery, Dr. Crawley Procedures: Perianal abscess, incision and drainage - Problems (1) Perianal abscess Current Visit: Yes Status: Acute (2) HIV (human immunodeficiency virus infection) Current Visit: Yes Status: Acute Qualifiers: HIV symptom status: asymptomatic Qualified Code(s): Z21 - Asymptomatic human immunodeficiency virus [HIV] infection status (3) HTN (hypertension) Current Visit: No Status: Chronic Qualifiers: Hypertension type: essential hypertension Qualified Code(s): I10 - Essential (primary) hypertension (4) Diabetes mellitus, type II Current Visit: No Status: Chronic Qualifiers: Diabetes mellitus long-term insulin use: without regulatory affairs analyst use Diabetes mellitus complication status: with other specified complication Qualified Code (s): E11.69 - Type 2 diabetes mellitus with other specified complication Brief History of Present Illness: Mr Olivas is a 38 years old male with history of HIV, DM II, HTN, who has been with some cough and lethargic for the last week, also subjective fever. Yesterday, he noticed bumps in his buttock area. Today, the bumps became more tender and decided to come to ED for evaluation. At arrival temp was 99.1F, WBC 15.5K. At physical exam, he has multiple perianal bumps. He is not on any distress. Hospital Course: Patient was admitted for perianal abscess. General surgery was consulted. Started on IV antibiotics. He underwent incision and drainage of the perianal abscess. Cultures were sent. His pain was controlled. He was discharged home on oral ciprofloxacin. He will follow up with general surgery in 1-2 weeks. He was taught wound care and instructions were given to him. He otherwise remained stable throughout the stay History of his diagnosis and treatment plan were discussed with him. All questions were answered and he was then discharged home in a safe and stable manner. Vital Signs/Physical Exam: Temp Pulse Resp BP Pulse Ox 97.9 F 78 20 139/83 97 04/25/19 08:00 04/25/19 08:27 04/25/19 08:00 04/25/19 08:27 04/25/19 08:00 General: Alert, In no apparent distress, Oriented x3 HEENT: Atraumatic, PERRLA, EOMI Neck: Supple, JVD not distended Respiratory: Clear to auscultation bilaterally, Normal air movement Cardiovascular: Regular rate/rhythm, Normal S1 S2 Gastrointestinal: Normal bowel sounds, No tenderness Musculoskeletal: No tenderness Integumentary: Other (Perianal abscess status post drainage. Area of incision looks well) Neurological: Normal speech, Normal tone, Normal affect Lymphatics: No axilla or inguinal lymphadenopathy Laboratory Data at Discharge: WBC 12.3 K/uL (4.3-10.9) H D 04/24/19 05:21 Hgb 15.8 g/dL (13.6-17.9) 04/24/19 05:21 Hct 44.7 % (39.6-49.0) 04/24/19 05:21 Plt Count 186 K/uL (152-406) 04/24/19 05:21 PT 12.7 SECONDS (9.5-12.5) H 04/23/19 19:52 INR 1.08 04/23/19 19:52 Sodium 141 mmol/L (136-145) 04/25/19 05:16 Potassium 3.7 mmol/L (3.5-5.1) 04/25/19 05:16 BUN 12 mg/dL (7-18) 04/25/19 05:16 Creatinine 0.80 mg/dL (0.55-1.3) 04/25/19 05:16 Glucose 195 mg/dL (74-106) H 04/25/19 05:16 Magnesium 2.3 mg/dL (1.8-2.4) 04/23/19 19:52 Total Bilirubin 0.9 mg/dL (0.2-1.0) 04/23/19 19:52 AST 12 U/L (15-37) L 04/23/19 19:52 ALT 44 U/L (12-78) 04/23/19 19:52 Alkaline Phosphatase 122 U/L (45-117) H 04/23/19 19:52 Home Medications: Emtricitab/Rilpivirine/Tenofov [Complera Tablet] 1 each PO DAILY 04/24/19 Emtricitab/Rilpivirine/Tenofov [Complera Tablet] 1 tab PO DAILY 04/24/19 Lisinopril [Prinivil*] 1 tab PO DAILY 04/24/19 Metformin HCl 1 tab PO BID 04/24/19 Ciprofloxacin HCl [Cipro 500 MG Tablet] 500 mg PO BID #10 tab 04/25/19 traMADol HCL [Ultram*] 50 mg PO Q6H PRN #30 tab 04/25/19 New Medications: Ciprofloxacin HCl [Cipro 500 MG Tablet] 500 mg PO BID #10 tab traMADol HCL [Ultram*] 50 mg PO Q6H PRN #30 tab PRN Reason: Pain Scale 5-7 (Moderate) Patient Discharge Instructions: bactroban ointment and sterile gauze to perianal area qid. Sitz bath qid. Please follow up with your primary care physician in 1 week. Return to the Emergency room for worsening symptoms. Diet: ADA Activity: No lifting more than 10 lbs Followup: Edward Crawley MD [ACTIVE - CAN ADMIT] - 1 Week Time spent managing pt's care (in minutes): 45
[2019-04-25] MEDS ORDERED: MUPIROCIN 2% OINT 22GM TUBE TOP SCH (13:00)
--- NOTE | 2019-04-25 13:42 | PN ---
Date of Progress Note: 04/25/2019 Status post I and D of perianal abscess. The patient is doing great, tolerating diet. Passing flatu s. Review of Systems: Ten points otherwise unremarkable. Physical Examination: Abdomen: Soft and depressible. Intact perianal area. Extremity: Full range of motion. Culture is still pending. Plan: The patient is under the care of Dr. Perez. She will be discharging the patient most likely t pham. The patient has a friend who will be doing dressing changes although, the area is so sensitive that he might not pack, in that case we are recommending the Bactroban and a sterile gauze over that area with sitz baths 4 times a day and after every bowel movement. We will encourage the patient to take his antibiotics as prescribed. Avoid constipation, avoid any trauma to the area and follow up in my office in 1 week. STEVIE/TULIO Voice ID: [id number] Report ID: [id number]
== END 2019-04-25 13:22 | disposition home or self-care (01) | DRG 348 ==
LOC: ER 19:08 → ERHOLD 20:47 → 4TH 23:07
PROVIDERS: ADMIT Internal Medicine; ATTEND Family Medicine
PROC: 0D9Q8ZZ Drainage of Anus, Via Natural or Artificial Opening Endoscopic (ICD-10-PCS; principal; 2019-04-24 08:45)
DX: K61.0 Anal abscess (principal); B20 Human immunodeficiency virus [HIV] disease; E11.9 Type 2 diabetes mellitus without complications; I10 Essential (primary) hypertension
CPT/HCPCS: 36415; 71045; 74177; 80048; 80076; 81003; 82962; 83605; 83735; 83880; 84484; 85025; 85610; 87070; 87075; 87205; 93005; 96365; 96367; 96375; J0744; J1650; J2405; J2543; J2704; J3010; J7030; Q9967

== ENCOUNTER 2019-11-01 16:40 | Emergency (ER) | payer OTHER ==
--- OUTSIDE RECORDS SUMMARY | 2019-11-01 16:42 | XMS REPORT ---
:1980 [facility] Address [address] Daniel [address] [place] [id number] Care Team Providers Name Role Phone Unavailable Unavailable Unavailable Problems This patient has no known problems. Allergies, Adverse Reactions, Alerts This patient has no known allergies or adverse reactions. Medications This patient has no known medications.
--- OUTSIDE RECORDS SUMMARY | 2019-11-01 16:44 | XMS REPORT ---
:[address] [facility] Address [address] [place] [address] Phone Allergies, Adverse Reactions, Alerts Allergy Name Reaction Description Start Date Severity Status Provider CODEINE rash Moderate Active Nestorgaye Guzman OD Conditions or Problems Problem Name Problem Onset Status Entry Provider Comment Standard Annotate Code Date Date Description abscess, 566 Active Rupert Abscess of anal perianal 04/26 04/26 Karie MASSEY and rectal regions Diabetes 250.00 Active Rupert Diabetes mellitus, 04/17 [...] Dc Anxiety state, DISORDER, 07/21 07/21 Cesar lozano UNSPECIFIED Hallucination 780.1 Active Dc Hallucinations s [...] lipoid disorders a Myopia - OU 367.1 Inactive Rupert Myopia 06/09 11/21 Karie MASSEY Myopia - OU 367.1 Inactive Rupert Myopia 06/09 12/21 Karie MASSEY Myopia - OU ICD-367.1 Inactive Rupert Tiwari MD Regular 367.21 Inactive Rupert Regular astigmatismKarie MD astigmatism bilateral Regular 367.21 Inactive Rupert Regular astigmatismKarie MD astigmatism bilateral Regular ICD-367.21 Inactive Rupert astigmatism, Karie MASSEY bilateral Screening V73.89 Inactive Casa Zhang Screening [...] Rupert Tiwari MD SPECIAL V73.89 Inactive Rupert Pardo SCREENING MD examination for EXAMINATION OTH other specified SPEC VIRAL DZ viral diseases SPECIAL SCREENING ICD-V73.89 Inactive Rupert Tiwari EXAMINATION OTH SPEC VIRAL DZ Medication List Medication Instructions Start Stop Generic NDC Status Provider Patient Date Date Name Instruction ANTABUSE 250 1 By DISULFIRAM 62803422288 Active Zishan Active MG ORAL Mouth Samiuddin TABLET Every MD Day METFORMIN HCL 1 by METFORMIN HCL 14231052331 Active Rupert Active 500 MG ORAL mouth Karie MASSEY TABLET twice a day NICOTINE NICOTINE 38267232669 Active Sneha Active -14-7 [place] MG/24HR TRANSDERMAL KIT LEXAPRO 10 MG 1 By ESCITALOPRAM 22278938395 Active Zishan Active ORAL TABLET Mouth OXALATE Samiuddin Every MD Day LISINOPRIL 20 1 by LISINOPRIL 68587359080 Active Rupert Active MG ORAL mouth Karie MASSEY TABLET every day COMPLERA 1 by EMTRICITAB-RIL 57367019241 Active Rupert Active 200-25-300 MG mouth PIVIR-TENOFOVI Karie MASSEY ORAL TABLET daily R with food RISPERDAL 2 1 By RISPERDAL 2 [id number] RISPERIDONE Inactive MG ORAL Mouth at MG ORAL TABLET bedtime TABLET MIRTAZAPINE MIRTAZAPINE MIRTAZAPINE Inactive TABLET TABLET TABS RISPERDAL 1 By RISPERIDONE [id number] No Zishan Active 2 MG ORAL Mouth at Longer Samiudbrendan TABLET bedtime Active MIRTAZAPIN MIRTAZAPINE 37504060237 No Zishan Active E TABLET TABS Longer Cesar Active Advance Directives Directive Description Start Date [...] administered PEDIATRIC PNEUMOCOCCAL given pneumococcal conjugate VACCINE ([id number]) #1 vaccine, 13 valent Vital Signs Date Name Value Unit Range Description blood pressure, diastolic 98 mm[Hg] BP sethi blood pressure, systolic 144 mm[Hg] BP sys height E&M 65 [in_us] Bdy height pulse rate E&M 112 /min Heart rate temperature E&M 98.1 [degF] Body temperature weight E&M 145 [lb_av] Weight Measured blood pressure, diastolic 99 mm[Hg] BP sethi [...] CD4/CD8 Ratio Profile, Comp. Metabolic Panel (14), HBV RT PC ... - Serology Hepatitis B virus DNA, by Polymerase Chain HBV DNA not detected Reaction Lab Report: Lipid Panel - Chemistry very low density lipoproteins 66 mg/dL 5-40 Lab Report: LIPID PANEL, STANDARD, COMPREHENSIVE METABOLIC PANEL, LYMPHO ... - Chemistry cholesterol, non-HDL, total 154 MG/DL (CALC) mg/dL <130 Office Visit: H&P - Chemistry hepatitis B surface antigen reactive Lab Report: HIV 1 RNA, QUANTITATIVE REAL TIME PCR - Chemistry HIV-1 RNA (log 10) <1.30 DETECTED Log copies/mL NOT DETECTED Lab Report: CD4/CD8 Ratio Profile, Comp. Metabolic Panel (14), HBV RT PC ... - Chemistry chloride, serum 103 mmol/L 96-106 Office Visit: H&P - Microbiology hepatitis A antibody, total Reactive Lab Report: CD4/CD8 Ratio Profile, Comp. Metabolic Panel (14), HBV RT PC ... - Chemistry urea nitrogen, blood 11 mg/dL 6-24 Lab Report: LIPID PANEL, STANDARD, COMPREHENSIVE METABOLIC PANEL, LYMPHO ... - Hematology Absolute Eosinophil count 100 {Cells}/uL 15-500 Lab Report: QuantiFERON TB Gold (In Tube), QuantiFERON In Tube - Hematology Quantiferon Gold TB blood test for tuberculosis Negative Negative screening Lab Report: CD4/CD8 Ratio Profile, Comp. Metabolic Panel (14), HBV RT PC ... - Hematology mean corpuscular hemoglobin 34.7 G/DL % 31.5-35.7 concentration, RBC erythrocyte (RBC) count 5.52 X10E6/UL 10*6/mm3 4.14-5.80 Lab Report: LIPID PANEL, STANDARD, COMPREHENSIVE METABOLIC PANEL, LYMPHO ... - Chemistry cholesterol/HDL ratio, serum, percent 7.4 (calc) <5.0 Lab Report: CD4/CD8 Ratio Profile, Comp. Metabolic Panel (14), HBV RT PC ... - Serology hepatitis C antibody, serum <0.1 0.0-0.9 Lab Report: CD4/CD8 Ratio Profile, Comp. Metabolic Panel (14), HBV RT PC ... - Chemistry absolute CD8 395 483-036 9517/06/21 Absolute Neutrophils 6.9 X10E3/UL 10*3/uL 1.4-7.0 Lab Report: LIPID PANEL, STANDARD, COMPREHENSIVE METABOLIC PANEL, LYMPHO ... - Hematology mean platelet volume 11.2 fL 7.5-12.5 Lab Report: Lipid Panel - Chemistry LDL cholesterol, serum 62 mg/dL 0-99 Lab Report: CD4/CD8 Ratio Profile, Comp. Metabolic Panel (14), HBV RT PC ... - Chemistry urea nitrogen/creatinine ratio, serum 12 9-20 Lab Report: CD4/CD8 Ratio Profile, Comp. Metabolic Panel (14), HBV RT PC ... - Hematology mean corpuscular volume, RBC 88 fL 79-97 Office Visit: H&P - Serology Hepatitis C virus (HCV) RNA, PCR, quantitative Not-detected [iU]/ mL Lab Report: Lipid Panel - Chemistry HDL cholesterol, serum 27 mg/dL >39 Lab Report: CD4/CD8 Ratio Profile, Comp. Metabolic Panel (14), HBV RT PC ... - Hematology monocytes as percent of blood leukocytes 5 % Not Estab. Lab Report: CD4/CD8 Ratio Profile, Comp. Metabolic Panel (14), HBV RT PC ... - Chemistry albumin/globulin ratio, serum 1.6 1.2-2.2 creatinine, serum 0.90 mg/dL 0.76-1.27 Lab Report: LIPID PANEL, STANDARD, COMPREHENSIVE METABOLIC PANEL, LYMPHO ... - Hematology Absolute Monocyte count 349 {Cells}/uL 200-950 Lab Report: Lipid Panel - Chemistry cholesterol, serum 155 mg/dL 100-199 Lab Report: CD4/CD8 Ratio Profile, Comp. Metabolic Panel (14), HBV RT PC ... - Chemistry bilirubin, serum, total 0.3 mg/dL 0.0-1.2 Lab Report: CD4/CD8 Ratio Profile, Comp. Metabolic Panel (14), HBV RT PC ... - Hematology Eosinophil Absolute Count 0.1 X10E3/UL 10*3/uL 0.0-0.4 Lab Report: Chlamydia/GC Amplification - Lab chlamydia DNA probe Negative Negative Lab Report: CD4/CD8 Ratio Profile, Comp. Metabolic Panel (14), HBV RT PC ... - Chemistry aspartate aminotransferase (SGOT), serum 34 U/L 0-40 Lab Report: CD4/CD8 Ratio Profile, Comp. Metabolic Panel (14), HBV RT PC ... - Hematology red blood cell distribution width 13.2 % 12.3-15.4 Lab Report: LIPID PANEL, STANDARD, COMPREHENSIVE METABOLIC PANEL, LYMPHO ... - Chemistry globulins, serum, total 2.6 G/DL (CALC) g/dL 1.9-3.7 Lab Report: CD4/CD8 Ratio Profile, Comp. Metabolic Panel (14), HBV RT PC ... - Hematology leukocyte count, blood 8.9 X10E3/UL 10*3/mm3 3.4-10.8 Lab Report: CD4/CD8 Ratio Profile, Comp. Metabolic Panel (14), HBV RT PC ... - Chemistry potassium, serum 4.5 mmol/L 3.5-5.2 albumin, serum 4.4 g/dL 3.5-5.5 immature granulocytes, percentage of total cells, 1 % Not Estab. blood Lab Report: CD4/CD8 Ratio Profile, Comp. Metabolic Panel (14), HBV RT PC ... - Hematology lymphocyte count, blood, automated 1.3 X10E3/UL 10*3/mm3 0.7- 3.1 hematocrit, blood 48.7 % 37.5-51.0 Lab Report: Chlamydia/GC Amplification - Microbiology Neisseria gonorrhoeae DNA probe Negative Negative Lab Report: CD4/CD8 Ratio Profile, Comp. Metabolic Panel (14), HBV RT PC ... - Chemistry sodium, serum 139 mmol/L 134-144 Office Visit: H&P - Serology toxoplasma gondii antibody, IgG <3 Lab Report: CD4/CD8 Ratio Profile, Comp. Metabolic Panel (14), HBV RT PC ... - Hematology neutrophils as percent of blood leukocytes 78 % Not Estab. basophils as percent of blood leukocytes 0 % Not Estab. Lab Report: CD4/CD8 Ratio Profile, Comp. Metabolic Panel (14), HBV RT PC ... - Serology HIV-1RNA, serum, by PCR, quantitative 30 {Copies}/mL rapid plasma reagin antibody, serum 1:1 NonRea<1:1 Lab Report: CD4/CD8 Ratio Profile, Comp. Metabolic Panel (14), HBV RT PC ... - Chemistry CD4/CD8 ratio 1.45 0.92-3.72 carbon dioxide, venous blood 19 mmol/L 20-29 Lab Report: LIPID PANEL, STANDARD, COMPREHENSIVE METABOLIC PANEL, LYMPHO ... - Chemistry Absolute Neutrophil count 6250 {Cells}/uL 3447-7623 Lab Report: Lipid Panel - Chemistry triglyceride, serum, fasting 331 mg/dL 0-149 Lab Report: CD4/CD8 Ratio Profile, Comp. Metabolic Panel (14), HBV RT PC ... - Chemistry calcium, serum 8.9 mg/dL 8.7-10.2 alanine aminotransferase (SGPT), serum 47 U/L 0-44 Lab Report: CD4/CD8 Ratio Profile, Comp. Metabolic Panel (14), HBV RT PC ... - Hematology mean corpuscular hemoglobin, RBC 30.6 pg 26.6-33.0 Lab Report: CD4/CD8 Ratio Profile, Comp. Metabolic Panel (14), HBV RT PC ... - Chemistry protein, total, serum 7.2 g/dL 6.0-8.5 Lab Report: CD4/CD8 Ratio Profile, Comp. Metabolic Panel (14), HBV RT PC ... - Lab Treponema pallidum antibodies, by particle Positive Negative agglutination Lab Report: CD4/CD8 Ratio Profile, Comp. Metabolic Panel (14), HBV RT PC ... - Chemistry alkaline phosphatase, serum 101 U/L 39-117 Lab Report: CD4/CD8 Ratio Profile, Comp. Metabolic Panel (14), HBV RT PC ... - Hematology T-helper cells (CD4) as percent of blood 44.1 % 30.8-58.5 lymphocytes hemoglobin, blood 16.9 g/dL 13.0-17.7 T-suppressor cells (CD8) as percent of blood 30.4 % 12.0-35.5 lymphocytes lymphocytes as percent of blood leukocytes 15 % Not Estab. Lab Report: CD4/CD8 Ratio Profile, Comp. Metabolic Panel (14), HBV RT PC ... - Chemistry hemoglobin A1C, blood, as % of total hemoglobin 10.3 % 4.8-5.6 Lab Report: LIPID PANEL, STANDARD, COMPREHENSIVE METABOLIC PANEL, LYMPHO ... - Hematology eosinophils as percent of blood leukocytes 1.2 % Lab Report: CD4/CD8 Ratio Profile, Comp. Metabolic Panel (14), HBV RT PC ... - Genetics/fertility eGFR if 123 mL/min/1.73m2 >59 Lab Report: CD4/CD8 Ratio Profile, Comp. Metabolic Panel (14), HBV RT PC ... - Hematology basophil count, absolute 0.0 x10E3/uL 0.0-0.2 Lab Report: CD4/CD8 Ratio Profile, Comp. Metabolic Panel (14), HBV RT PC ... - Chemistry globulin, serum 2.8 1.5-4.5 Estimated Glomerular Filtration Rate (calc) 106 mL/min/1.73m2 > 59 Lab Report: LIPID PANEL, STANDARD, COMPREHENSIVE METABOLIC PANEL, LYMPHO ... - Chemistry lymphocytes, absolute 1569 CELLS/UL 10*3/uL 850-3900 Office Visit: H&P - Serology hepatitis B surface antibody Non-reactive Lab Report: CD4/CD8 Ratio Profile, Comp. Metabolic Panel (14), HBV RT PC ... - Hematology eosinophils as percent of blood leukocytes 1 % Not Estab. Lab Report: CD4/CD8 Ratio Profile, Comp. Metabolic Panel (14), HBV RT PC ... - Chemistry blood glucose, random 325 mg/dL 65-99 Lab Report: LIPID PANEL, STANDARD, COMPREHENSIVE METABOLIC PANEL, LYMPHO ... - Serology Treponema pallidum Ab, serum REACTIVE NON-REACTIVE Lab Report: CD4/CD8 Ratio Profile, Comp. Metabolic Panel (14), HBV RT PC ... - Hematology monocyte count, blood, automated 0.5 X10E3/UL 10*3/uL 0.1-0.9 T-helper cells (CD4) count 573 /UL uL 359-1519 platelet count 267 X10E3/UL 10*3/mm3 150-450 Encounters Date Encounter Provider Code Facility Ofc Vst, Est Level Rupert Tiwari MD CPT-29880 [facility] 16:06:34 CDT IV Est Patient Exp Dc Guerrero MD [facility]-[id number] [facility] 10:34:43 [employer]EDER Problem - 14048 [facility] Ofc Vst, Est Level Rupert Tiwari MD CPT-66399 [facility] 10:28:43 [employer] IV Est Patient Exp Dc Guerrero MD [facility]-63988 [facility] 14:35:11 [employer] Problem - 11106 [facility] Ofc Vst, Est Level Rupert Tiwari MD CPT-90724 [facility] 10:30:49 [employer] IV Ofc Vst, Est Level Rupert Tiwari MD CPT-12801 [facility] 13:01:29 CDT IV Ofc Vst, Est Level Rupert Tiwari MD [facility]-[id number] [facility] 11:52:13 CDT IV Est Patient Exp Dc Guerrero MD [facility]-69634 [facility] 17:52:05 [employer]ER Problem - 09979 [facility] Ofc Vst, Est Level Rupert Tiwari MD CPT-77688 [facility] 09:48:56 [employer] IV Est Patient Exp Dc Guerrero MD [facility]-56447 [facility] 12:48:05 CDT Problem - 93743 [facility] Ofc Vst, New Level Rupert Tiwari MD CPT-72232 [facility] 10:53:43 CDT IV Procedures Code Procedure Name Date Entry Date Standard Description CPT-26036 Est Patient Intermediate Opth - 12098 11:18:32 [employer] CPT-32869 Pneumovax Vaccine PPSV23 12:57:50 CDT CPT-66165 INFLUENZA VACCINE QUADRIVALENT 3 YRS PLUS IM 09:45:57 [employer] CPT-19271 Dispensing Visit (UNLIVSTED OPHTHALMOLOGICAL 09:54:51 CDT SERVICE/PROCEDURE) CPT-89676 Diagnostic evaluation with medical - 42318 13:55:50 CDT CPT-87207 Est Patient Intermediate Opt - 19978 09:56:48 CDT CPT-45328 Est Patient Intermediate Opth - 43708 09:13:29 CDT CPT-29717 Prevnar (PCV13) IM 10:33:40 CDT CPT-83252 Dispensing Visit (UNLIVSTED OPHTHALMOLOGICAL 13:23:10 [employer] SERVICE/PROCEDURE) CPT-46461 Est Patient Intermediate Opt - 68828 16:00:58 [employer] CPT-96376 New Patient Intermediate Opth - 32316 15:26:36 [employer]
--- OUTSIDE RECORDS SUMMARY | 2019-11-01 16:45 | XMS REPORT ---
:1980 Author Name Admin, Johnson Address Unavailable Unavailable , PROBLEMS Condition Status Date Provider Notes abscess, perianal active Rupert Tiwari Diabetes mellitus, type II active Rupert Tiawri Hyperlipidemia active Rupert Tiwari Preventive health care active Rupert Tiwari ANXIETY DISORDER, UNSPECIFIED active Dc Guerrero Hallucinations active Dc Guerrero Screening examination for other completed - [place] specified viral diseases Regular astigmatism, bilateral completed - Rupert Tiwari Myopia - OU completed - Rupert Tiwari HEPATITIS B, CHRONIC active Rupert Tiwari PTSD active Rupert Tiwari SPECIAL SCREENING EXAMINATION completed - Rupert Tiwari OTH SPEC VIRAL DZ MYOPIA completed - Rupert Tiwari ASTIGMATISM completed - Rupert Tiwari ENCOUNTERS Date Type Provider Location Encounter Diagnosis Ambulatory Araceli Thomson [facility] [place] UNK 5 - Encounter Medicine 5 Ambulatory Rupert Emery [facility] [place] UNK 2 - Encounter Karie Sheikhbeth Medicine [place] 2 MedAdherence Ambulatory Rupert Borrero UNK 8 - Encounter Karie [facility] 8 MedAdherence, Ambulatory Johnson Admin YES Prep UNK 1 - Encounter [facility] 1 Health Ambulatory Rupert Emery [facility] [place] UNK 6 - Encounter Karie [place] [facility] [place] 6 MedAdherence Ambulatory Araceli [facility]ameierrez [facility] Adult UNK 2 - Encounter Medicine 2 Ambulatory Rupert Emery [facility] Adult UNK 5 - Encounter [facility] 5 Ambulatory Rupert Emery [facility] Adult UNK 1 - Encounter [facility] 1 Ambulatory Caterina Macedo [facility] [place] UNK 4 - Encounter Derickjesse Wilder [facility] 4 Ambulatory Rupert Emery LM Adult UNK 1 - Encounter [facility] 1 Ambulatory Rupert Emery LM Adult UNK 1 - Encounter [facility] 1 Ambulatory Rupert Emery LM Adult abscess, perianal 1 - Encounter [facility] Derick Medicine Meño 1 Ambulatory Caterina [place] UNK 0 - Encounter Agustina Simpson 0 Ambulatory Rupert Emery LM Adult UNK 0 - Encounter [facility] 0 Ambulatory Rupert Emery [facility] Adult UNK 0 - Encounter [place] Medicine 0 Ambulatory Isabel Gomez UNK 8 - Encounter [facility] 8 Ambulatory Marni Caruso [facility] Adult UNK 4 - Encounter MedAdherence, Medicine 4 Ambulatory Kelli [facility] Public UNK 5 - Encounter [facility] 5 Ambulatory Dc Guerrero [facility] Behavioral UNK 2 - [facility] [address] [facility] UNK 8 - [facility] 8 Health Ambulatory Caterina Macedo [facility] Adult UNK 5 - Encounter Medicine 5 Ambulatory Rupert Emery [facility] Adult UNK 5 - Encounter [facility] 5 Ambulatory Rupert Emery [facility] Adult UNK 5 - Encounter [facility] Caterina Medicine [place] 5 Ambulatory Rupert Emery [facility] Adult UNK 0 - Encounter [place] [facility] Medicine 0 Ambulatory Rupert Emery [facility] Adult UNK 0 - Encounter [place] [facility] Medicine 0 Ambulatory [facility] UNK 0 - Encounter [facility] Lizy Mcgregor [place] [id number] Health Ambulatory Rupert Emery [facility] Adult UNK 0 - Encounter [facility] [place] 0 Ambulatory Rupert Emery [facility] Adult UNK 3 - Encounter [facility] Marni Medicine [place] 3 MedAdherence, Ambulatory Vanessa Loomis [facility] UNK 0 - [facility] Rupert Emery [facility] Adult UNK 6 - Encounter [place] Medicine 6 Ambulatory Rupert Emery [facility] Adult UNK 6 - Encounter [place] [facility] Medicine 6 Ambulatory Rupert Emery [facility] Adult UNK 6 - Encounter [place] [facility] Medicine 6 Ambulatory Rupert Emery [facility] Adult UNK 7 - Encounter [place] [facility] Medicine 7 Ambulatory Rupert Emery [facility] Adult UNK 9 - Encounter [facility] Marni Sr Medicine 9 Ambulatory Rupert Emery [facility] Adult UNK 7 - Encounter [place] [facility] Medicine Marni Sr 7 Ambulatory Rupert Emery [facility] Adult UNK 2 - Encounter [facility] Marni Sr Medicine 2 Ambulatory Rupert Emery LM Adult UNK 1 - Encounter [place] [facility] Medicine Marni Sr 1 Ambulatory Elva Borrero UNK 8 - [facility]counter [facility] 8 Ambulatory Denise Wilder LM Adult UNK 5 - Encounter Medicine 5 Ambulatory Rupert Emery LM Adult UNK 5 - Encounter [facility] Medicine 5 Ambulatory Rupert Emery LM Adult UNK 5 - Encounter [facility] Medicine 5 Ambulatory Rupert Emery [facility] Adult Myopia - OURegular 5 - Encounter [facility] Caterina Medicine astigmatism, bilateral [place] 5 Ambulatory Ashlee Verdugo LM Vision UNK 5 - Encounter 5 Ambulatory Rupert Emery [facility] Adult UNK 9 - Encounter [place] Medicine 9 Ambulatory Ashlee Meloers LM Vision UNK 9 - Encounter 9 Ambulatory Nestor Guzman LM Vision UNK 9 - Encounter 9 Ambulatory Nestor Guzman [facility] Vision UNK 9 - Encounter 9 Ambulatory Nestor Guzman [facility] Vision UNK 9 - Encounter 9 Ambulatory Nestor Rosado [facility] Vision Myopia - OURegular 9 - Encounter Verdugo astigmatism, bilateral 9 Ambulatory Rupert Emery [facility] Adult UNK 7 - Encounter [facility] Marni Sr Medicine 7 Ambulatory Silvia Hassan [facility] Adult UNK 7 - Encounter [facility] Marni Medicine Sr 7 Ambulatory Rupert Emery LM Adult UNK 6 - Encounter [facility] Marni Sr Medicine 6 Ambulatory Silvia Hassan [facility] Adult UNK 1 - Encounter [facility] Marni Medicine Sr 1 Ambulatory Leticia Valle UNK 0 - Encounter Practice 0 Ambulatory Valerie Borrero UNK 0 - Encounter [place] 0 Pediatrics Ambulatory Rupert Emery [facility] Adult UNK 6 - Encounter [facility] Marni Sr Medicine 6 Ambulatory Rupert Emery [facility] Adult UNK 4 - Encounter [facility] Medicine 4 Ambulatory Rupert Emery [facility] Adult Hyperlipidemia 4 - Encounter [facility] Caterina Medicine [place] 4 Ambulatory Rupert Emery [facility] Adult UNK 1 - Encounter [facility] Medicine 1 Ambulatory Denise Meño [facility] Adult UNK 1 - Encounter Medicine 1 Ambulatory Rupert Emery [facility] Adult UNK 0 - Encounter [place] [facility] Medicine 0 Ambulatory Camila Woodard [facility] Social UNK 2 - Encounter Services 2 Ambulatory Samantha Cast [facility] Social UNK 2 - Encounter Services 2 Ambulatory Rupert Emery [facility] Adult UNK 2 - Encounter [place] [facility] Medicine 2 Ambulatory Rupert Emery [facility] Adult UNK 2 - Encounter [facility] Medicine 2 Ambulatory Rupert Emery [facility] Adult Diabetes mellitus, type II 2 - Encounter [facility] Caterina Medicine [place] 2 Ambulatory Kasia Meserve [facility] Social UNK 0 - Encounter Services 0 Ambulatory Kasia Meserve [facility] Social UNK 7 - Encounter Services 7 Ambulatory Kasia Meserve [facility] Social UNK 3 - Encounter Services 3 Ambulatory Kasia Meserve [facility] Social UNK 3 - Encounter Services 3 Ambulatory Kasia Meserve [facility] Social UNK 0 - Encounter Services 0 Ambulatory Robby Masters [facility] Behavioral UNK 7 - Encounter Health 7 Ambulatory Robby Masters [facility] Behavioral UNK 7 - Encounter Health 7 Ambulatory Robby Masters [facility] UNK 6 - Encounter [facility] Health 6 Ambulatory Robby Masters [facility] Behavioral UNK 6 - Encounter [facility] Health 6 Ambulatory Az Islas [facility] Adult UNK 1 - Encounter Medicine 1 Ambulatory Rupert Michelleotilia Rupert [facility] Adult UNK 5 - Encounter [facility] Medicine 5 Ambulatory Rupert Emery [facility] Adult UNK 5 - Encounter [place] [facility] Medicine 5 Ambulatory Saloni Jeffery [facility] Adult UNK 4 - Encounter Medicine 4 Ambulatory Robby Masters [facility] Behavioral UNK 2 - Encounter Health 2 Ambulatory Robby Masters [facility] Behavioral UNK 2 - Encounter Health 2 Ambulatory Rupert Tiwari Rupert [facility] Adult UNK 1 - Encounter [facility] Medicine 1 Ambulatory Rupert Emery [facility] Adult UNK 1 - Encounter [place] [facility] Medicine 1 Ambulatory Sneha Dan [facility] Adult UNK 3 - Encounter Medicine 3 Ambulatory Kasia Betancur [facility] Social UNK 1 - Encounter [facility] Services 1 Ambulatory Kasia Craneerve [facility] Social UNK 1 - Encounter [facility] Services 1 Ambulatory Casa Riggs [facility] Vision UNK 5 - Encounter Casa Riggs [facility] [address] [facility] UNK 5 - En[facility] D[facility] 5 Health Ambulatory Jinregis Guerrero [facility] UNK 5 - Encounter Dc Albarado[facility]ose [facility] Clinic [facility] 5 Health Ambulatory Jinshregis Albaradoiuddin [facility] UNK 2 - Encounter Dc Laraudbrendan Health 2 Ambulatory Jinshregis Albaradoiuddin [facility] Behavioral UNK 2 - Encounter Dc Guerrero Health 2 Ambulatory Zishan Periuddin [facility] Behavioral UNK 2 - Encounter Dc Guerrero Health [facility] 2 Ambulatory Jinregis Albaradoiudbrendan [facility] Behavioral UNK 1 - Encounter Dc Guerrero Health [facility] 1 Ambulatory Rupert Emery [facility] Adult UNK 6 - Encounter [place] [facility] Medicine 6 Ambulatory Rupert Emery [facility] Adult UNK 8 - Encounter [place] [facility] Medicine 8 Ambulatory Rupert Emery [facility] Adult UNK 6 - Encounter [place] [facility] Medicine 6 Ambulatory Rupert Emery [facility] Adult UNK 6 - Encounter [facility] Medicine 6 Ambulatory Caterina Macedo LM Adult UNK 6 - Encounter Medicine 6 Ambulatory Rupert Emery [facility] Adult UNK 6 - Encounter [facility] Medicine 6 Ambulatory Rupert Emery [facility] Adult Myopia - OURegular 6 - Encounter [facility] Caterina Medicine astigmatism, [place] bilateralPreventive health 6 careHyperlipidemia Ambulatory Jinshregis Albaradoiuddin [facility] Behavioral UNK 5 - Encounter Dc Guerrero Health 5 Ambulatory Jinregis Albaradoiuddin [facility] Behavioral UNK 4 - Encounter Dc Guerrero Health [facility] 4 Ambulatory Sneha Dan [facility] Adult UNK 9 - Encounter Medicine 9 Ambulatory Jinshan Periuddin [facility] Behavioral UNK 8 - Encounter Dc Guerrero Health 8 Ambulatory Jinshan Periuddin [facility] Behavioral UNK 8 - Encounter Dc Guerrero Health [facility] 8 Ambulatory Rupert Emery [facility] Adult UNK 0 - Encounter [place] Medicine 0 Ambulatory Rupert Eganraymundootilia Emery [facility] Adult UNK 5 - Encounter [place] [facility] Medicine 5 Ambulatory [facility] ANXIETY DISORDER, UNSPECIFIED 5 - Encounter [facility] 5 Health Ambulatory Shirley Shashank [facility] Vision UNK 5 - Encounter 5 Ambulatory Rupert Karie Emery [facility] UNK 6 - Encounter [facility] 6 Abad Contact Center Ambulatory Jinshregis Albaradoiudbrendan [facility] Behavioral UNK 6 - Encounter Dc Guerrero Health 6 Ambulatory iJnregis Albaardoiuddin [facility] Behavioral UNK 6 - Encounter Jinregis Guerrero Health [facility] 6 Ambulatory Kasia Meserve [facility] Social UNK 0 - Encounter Services 0 Ambulatory Kasia Meserve [facility] Social UNK 9 - Encounter Services 9 Ambulatory Caterina Macedo Legacy UNK 6 - [facility]counter [facility] 6 Contact Center Ambulatory Shirley Encarnacion [facility] Vision UNK 4 - Encounter 4 Ambulatory [facility] Hallucinations 4 - Encounter [facility] Carlos Alberto [facility] 4 Health Ambulatory Casa Riggs [facility] Vision UNK 4 - Encounter [facility] 4 Ambulatory Casa Riggs [facility] Vision UNK 4 - Encounter [facility] 4 Ambulatory Casa Riggs [facility] Vision Screening examination for 4 - Encounter Cas[facility] Riggs other specified viral Nitza Alex diseases 4 Ambulatory Nestor Guzman [facility] Vision UNK 4 - Encounter 4 Ambulatory Nestor Thomas [facility] Vision UNK 4 - Encounter 4 Ambulatory Nestor Thomas [facility] Vision UNK 4 - Encounter 4 Ambulatory Nestor Thomas [facility] Vision Myopia - OURegular 4 - Encounter Shirley Encarnacion astigmatism, bilateral 4 Ambulatory Wan Barnhart C Adult UNK 2 - Encounter Jerome Medicine 2 Ambulatory Kasia Meserve [facility] Social UNK 4 - Encounter Services 4 Ambulatory Kasia Meserve [facility] Social UNK 3 - Encounter Services 3 Ambulatory Kasia Meserve [facility] Social UNK 2 - Encounter Services 2 Ambulatory Kasia Meserve [facility] Social UNK 8 - Encounter Services 8 Ambulatory Rupert Emery [facility] Adult UNK 8 - Encounter [facility] Medicine 8 Ambulatory Kasia Meserve [facility] Social UNK 7 - Encounter Services 7 Ambulatory Kasia Meserve [facility] Social UNK 1 - Encounter Amanda Fuentes Services Yolie Santiago 1 Ambulatory Rupert Emery [facility] Adult UNK 1 - Encounter [facility] Medicine 1 Ambulatory Rupert Emery [facility] Adult UNK 1 - Encounter [facility] Medicine 1 Ambulatory Rupert Emery [facility] Adult ASTIGMATISMMYOPIASPECIAL 1 - Encounter [facility] Amanda Medicine SCREENING EXAMINATION OTH Fuentes Caterina SPEC VIRAL DZPTSDHEPATITIS B, 1 Remington Urbano CHRONIC Santiago Ambulatory Ameena Siomara [facility] Adult UNK 1 - Encounter Medicine 1 Ambulatory Ameena Siomara [facility] Adult UNK 1 - Encounter Medicine 1 Ambulatory Ameena Siomara [facility] Adult UNK 1 - Encounter Medicine 1 Ambulatory Ivory Fontanez [facility] Behavioral UNK 0 - Encounter Health 0 Ambulatory Kaleigh Finney [facility] Adult UNK 3 - Encounter Medicine 3 Ambulatory Kiel Billy [facility] UNK 0 - Encounter [facility] 0 Ambulatory Rupert Emery [facility] UNK 0 - Encounter [facility] 0 Ambulatory Jamal [facility] UNK 0 - Encounter [facility] 0 Ambulatory Nestor Guzman [facility] Vision UNK 0 - Encounter [facility] 0 Ambulatory Shirley Encarnacion C Vision UNK 0 - Encounter 0 Ambulatory Shirley Encarnacion C Vision UNK 1 - Encounter 1 Ambulatory Casa Riggs [facility] Vision SPECIAL SCREENING EXAMINATION 1 - Encounter Cas[facility] Riggs OTH SPEC VIRAL DZ Nitza Alex 1 Ambulatory Nestor Guzman [facility] Vision ASTIGMATISMMYOPIA 1 - Encounter Shirley Encarnacion 1 Ambulatory Alejandro Saenz [facility] Adult UNK 1 - Encounter Medicine 1 VITAL SIGNS No Information Available ALLERGIES Allergy Name Onset Date Reaction Criticality Status CODEINE rash Unable to assess criticality active REASON FOR REFERRAL No Information Available RESULTS Date Observation Value Provider Reference Interpretation Location Range hepatitis C <0.1 [facility] 0.0-0.9 04/26 antibody, serum " Treponema pallidum Positive [facility] Negative Abnormal antibodies, by particle agglutination " rapid plasma 1:1 [facility] NonRea<1:1 High reagin antibody, serum " hemoglobin A1C, 10.3 % [facility] 4.8-5.6 High blood, as % of total hemoglobin " HIV-1RNA, serum, 30 /mL [facility] by PCR, quantitative " Hepatitis B virus HBV DNA not [facility] DNA, by Polymerase detected Chain Reaction " alanine 47 1/L [facility] 0-44 High aminotransferase (SGPT), serum " aspartate 34 1/L [facility] 0-40 aminotransferase (SGOT), serum " alkaline 101 1/L [facility] 39-117 phosphatase, serum " bilirubin, serum, 0.3 mg/dL [facility] 0.0-1.2 total " albumin/globulin 1.6 [facility] 1.2-2.2 ratio, serum " globulin, serum 2.8 [facility] 1.5-4.5 " albumin, serum 4.4 g/dL [facility] 3.5-5.5 " protein, total, 7.2 g/dL [facility] 6.0-8.5 serum " calcium, serum 8.9 mg/dL [facility] 8.7-10.2 " carbon dioxide, 19 mmol/L [facility] 20-29 Low venous blood " chloride, serum 103 mmol/L [facility] 96-106 " potassium, serum 4.5 mmol/L [facility] 3.5-5.2 " sodium, serum 139 mmol/L [facility] 134-144 " urea 12 [facility] 9-20 nitrogen/creatinin e ratio, serum " eGFR if 123 [facility] >59 Czech mL/min/((173/1 00).m2) " Estimated 106 [facility] >59 Glomerular mL/min/((173/1 Filtration Rate 00).m2) (calc) " creatinine, serum 0.90 mg/dL [facility] 0.76-1.27 " urea nitrogen, 11 mg/dL [facility] 6-24 blood " blood glucose, 325 mg/dL [facility] 65-99 High random " immature 1 % [facility] Not Estab. granulocytes, percentage of total cells, blood " basophil count, 0.0 x10E3/uL [facility] 0.0-0.2 absolute " Eosinophil 0.1 X10E3/UL [facility] 0.0-0.4 Absolute Count " monocyte count, 0.5 X10E3/UL [facility] 0.1-0.9 blood, automated " lymphocyte count, 1.3 X10E3/UL [facility] 0.7-3.1 blood, automated " Absolute 6.9 X10E3/UL [facility] 1.4-7.0 Neutrophils " basophils as 0 % [facility] Not Estab. percent of blood leukocytes " eosinophils as 1 % [facility] Not Estab. percent of blood leukocytes " monocytes as 5 % [facility] Not Estab. percent of blood leukocytes " lymphocytes as 15 % [facility] Not Estab. percent of blood leukocytes " neutrophils as 78 % [facility] Not Estab. percent of blood leukocytes " platelet count 267 X10E3/UL [facility] 150-450 " red blood cell 13.2 % [facility] 12.3-15.4 distribution width " mean corpuscular 34.7 G/DL [facility] 31.5-35.7 hemoglobin concentration, RBC " mean corpuscular 30.6 pg [facility] 26.6-33.0 hemoglobin, RBC " mean corpuscular 88 fL [facility] 79-97 volume, RBC " hematocrit, blood 48.7 % [facility] 37.5-51.0 " hemoglobin, blood 16.9 g/dL [facility] 13.0-17.7 " erythrocyte (RBC) 5.52 X10E6/UL [facility] 4.14-5.80 count " leukocyte count, 8.9 X10E3/UL [facility] 3.4-10.8 blood " CD4/CD8 ratio 1.45 [facility] 0.92-3.72 " T-suppressor cells 30.4 % [facility] 12.0-35.5 (CD8) as percent of blood lymphocytes " absolute CD8 395 [facility] 109-897 " T-helper cells 44.1 % [facility] 30.8-58.5 (CD4) as percent of blood lymphocytes " T-helper cells 573 /UL [facility] 359-1519 (CD4) count 2018/ LDL cholesterol, 62 mg/dL [facility] 0-99 6/21 serum " very low density 66 mg/dL [facility] 5-40 High lipoproteins " HDL cholesterol, 27 mg/dL [facility] >39 Low serum " triglyceride, 331 mg/dL [facility] 0-149 High serum, fasting " cholesterol, serum 155 mg/dL [facility] 392-201 2980/1 rapid plasma REACTIVE [facility] NON-REACTIV Abnormal [facility] 12/26 reagin antibody, E Diagnostic serum [facility] [address] [place] [phone] Dr[address] Elijah gaspar;RGA [facility] [address] [place] [phone] Anne Hussein " Treponema pallidum REACTIVE [facility] NON-REACTIV Abnormal [facility] Ab, serum E Diagnostic [facility] [address] [place] [phone] [address] Elijah gaspar;RGA [facility] [address] [place] [phone] Anne Hussein " basophils as 0.4 % [facility] Normal [facility] percent of blood Diagnostic leukocytes [address] [phone] Dr[address] Elijah gaspar;RGA [facility] [address] [place] [phone] Anne Hussein " eosinophils as 1.2 % [facility] Normal [facility] percent of blood Diagnostic leukocytes [facility] [address] [place] [phone] [address] Elijah gaspar;R[facility] [address] [place] [phone] Anne Hussein " monocytes as 4.2 % [facility] Normal [facility] percent of blood Diagnostic leukocytes [facility] [address] [place] [phone] [address] Elijah gaspar;RGA [facility] [address] [place] [phone] Anne Hussein " lymphocytes as 18.9 % [facility] Normal [facility] percent of blood Diagnostic leukocytes [facility] [address] [place] [phone] [address] Elijah gaspar;R[facility] [address] [place] [phone] Anne Hussein " neutrophils as 75.3 % [facility] Normal [facility] percent of blood Diagnostic leukocytes [facility] [address] [place] [phone] [address] Elijah gaspar;RGA [facility] [address] [facility] [phone] Anne Hussein " basophil count, 33 cells/uL [facility] 0-200 Normal [facility] absolute Diagnostic [facility] [address] [place] [phone] [address] Elijah gaspar;RGA [facility] [address] [place] [phone] Anne Hussein " Absolute 100 cells/mcL [facility] 15-500 Normal [facility] Eosinophil count Diagnostic [facility] [address] [place] [phone] Dr[address] Elijah gaspar;RGA [facility] [address] [place] [phone] Anne Hussein " Absolute Monocyte 349 cells/mcL [facility] 200-950 Normal [facility] count Diagnostic [facility] [address] [place] [address] [place] [phone] Dr[address] Elijah gaspar;RGA [facility] [address] [place] [phone] Anne Hussein " Absolute 6250 cells/mcL [facility] 1634-4680 Normal [facility] Neutrophil count Diagnostic [facility] [address] [place] [address] [place] [phone] Dr[address] Elijah gaspar;RGA [facility] [address] [facility] [phone] Anne Hussein " mean platelet 11.2 fL [facility] 7.5-12.5 Normal [facility] volume Diagnostic [facility] [address] [place] [phone] [address] Elijah gaspar;RGA [facility] [address] [facility] [phone] Anne Hussein " platelet count 230 [facility] 140-400 Normal [facility] THOUSAND/UL Diagnostic [facility] [address] [place] [address] [place] [phone] Dr[address] Elijah gaspar;RGA [facility] [address] [facility] [phone] Anne Hussein " red blood cell 13.1 % [facility] 11.0-15.0 Normal [facility] distribution width Diagnostic [facility] [address] [place] [phone] [address] Elijah gaspar;RGA [facility] [address] [place] [phone] Anne Hussein " mean corpuscular 35.4 G/DL [facility] 32.0-36.0 Normal [facility] hemoglobin Diagnostic concentration, RBC [facility] [address] [place] [phone] [address] Elijah gaspar;RGA [facility] [address] [place] [phone] Anne Hussein " mean corpuscular 31.2 pg [facility] 27.0-33.0 Normal [facility] hemoglobin, RBC Diagnostic [facility] [address] [place] [phone] [address] Elijah gaspar;RGA [facility] [address] [place] [phone] Anne Hussein" mean corpuscular 88.1 fL [facility] 80.0-100.0 Normal [facility] volume, RBC Diagnostic [facility] [address] [place] [phone] [address] Elijah gaspar;RGA [facility] [address] [place] [phone] Anne Hussein " hematocrit, blood 45.7 % [facility] 38.5-50.0 Normal [facility] Diagnostic [facility] [address] [place] [phone] [address] Elijah gaspar;RGA [facility] [address] [place] [phone] Anne Hussein" hemoglobin, blood 16.2 g/dL [facility] 13.2-17.1 Normal [facility] Diagnostic [facility] [address] [place] [phone] [address] Elijah gaspar;RGA [facility] [address] [place] [phone] Anne Hussein " erythrocyte (RBC) 5.19 [facility] 4.20-5.80 Normal [facility] count MILLION/UL Diagnostic [facility] [address] [place] [phone] [address] Elijah gaspar;RGA [facility] [address] [place] [phone] Anne Hussein " leukocyte count, 8.3 [facility] 3.8-10.8 Normal [facility] blood THOUSAND/UL Diagnostic [facility] [address] [place] [phone] [address] Elijah gaspar;RGA [facility] [address] [place] [phone] Anne Hussein " lymphocytes, 1569 CELLS/UL LinkLogic [phone] Normal [facility] absolute Diagnostic [facility] [address] [place] [phone] Dr[address] Elijah gaspar;RGA [facility] [address] [place] [phone] Anne Hussein" CD4/CD8 ratio 1.52 LinkLogic 0.86-5.00 Normal [facility] Diagnostic [facility] [address] [place] [phone] Dr[address] Elijah gaspar;RGA [facility] [address] [place] [phone] Anne Hussein " absolute CD8 436 LinkLogic 180-1170 Normal [facility] Diagnostic [facility] [address] [place] [phone] Dr[address] Elijah gaspar;RGA [facility] [address] [place] [phone] Anne Hussein" T-suppressor cells 29 % LinkLogic 12-42 Normal [facility] (CD8) as percent Diagnostic of blood [facility] lymphocytes Lab [address] [place] [address] [place] [phone] Dr[address] Elijah gaspar;RGA [facility] [address] [facility] [phone] Anne Hussein" T-helper cells 663 CELLS/UL LinkLogic 490-1740 Normal [facility] (CD4) count Diagnostic [facility] [address] [place] [phone] [address] Elijah gaspar;RGA [facility] [address] [place] [phone] Anne Hussein" T-helper cells 44 % LinkLogic 30-61 Normal [facility] (CD4) as percent Diagnostic of blood [facility] lymphocytes Lab [address] [place] [phone] [address] Elijah gaspar;RGA [facility] [address] [place] [phone] Anne Hussein" alanine 79 1/L LinkLogic 9-46 High [facility] aminotransferase Diagnostic (SGPT), serum [facility] [address] [place] [phone] [address] Elijah gaspar;RGA [facility] [address] [place] [phone] Anne Hussein" aspartate 51 1/L LinkLogic 10-40 High [facility] aminotransferase Diagnostic (SGOT), serum [facility] [address] [place] [phone] [address] Elijah gaspar;RGA [facility] [address] [place] [phone] Anne Hussein" alkaline 87 1/L LinkLogic 40-115 Normal [facility] phosphatase, serum Diagnostic [facility] [address] [place] [phone] [address] Elijah gaspar;RGA [facility] [address] [place] [phone] Anne Hussein" bilirubin, serum, 0.7 mg/dL LinkLogic 0.2-1.2 Normal [facility] total Diagnostic [facility] [address] [place] [phone] [address] Elijah gaspar;RGA [facility] [address] [place] [phone] Anne Hussein" albumin/globulin 1.7 (calc) LinkLogic 1.0-2.5 Normal [facility] ratio, serum Diagnostic [facility] [address] [place] [phone] [address] Elijah gaspar;RGA [facility] [address] [place] [phone] Anne Hussein" globulins, serum, 2.6 G/DL LinkLogic 1.9-3.7 Normal [facility] total (CALC) Diagnostic [facility] [address] [place] [phone] [address] Elijah gaspar;RGA [facility] [address] [place] [phone] Anne Hussein" albumin, serum 4.4 g/dL LinkLogic 3.6-5.1 Normal [facility] Diagnostic [facility] [address] [place] [phone] [address] Elijah gaspar;RGA [facility] [address] [place] [phone] Anne Hussein" protein, total, 7.0 g/dL LinkLogic 6.1-8.1 Normal [facility] serum Diagnostic [facility] [address] [place] [phone] Dr[address] Elijah gaspar;RGA [facility] [address] [place] [phone] Anne Hussein" calcium, serum 9.1 mg/dL LinkLogic 8.6-10.3 Normal [facility] Diagnostic [facility] [address] [place] [phone] [address] Elijah gaspar;RGA [facility] [address] [place] [phone] Anne Hussein" carbon dioxide, 24 mmol/L LinkLogic 20-32 Normal [facility] venous blood Diagnostic [facility] [address] [place] [phone] [address] Elijah gaspar;RGA [facility] [address] [place] [phone] Anne Hussein" chloride, serum 105 mmol/L LinkLogic 98-110 Normal [facility] Diagnostic [facility] [address] [place] [phone] [address] Elijah gaspar;RGA [facility] [address] [place] [phone] Anne Hussein" potassium, serum 3.9 mmol/L LinkLogic 3.5-5.3 Normal [facility] Diagnostic [facility] [address] [place] [phone] [address] Elijah gaspar;RGA [facility] [address] [place] [phone] Anne Hussein " sodium, serum 139 mmol/L LinkLogic 135-146 Normal [facility] Diagnostic [facility] [address] [place] [phone] [address] Elijah gaspar;A [facility] [address] [place] [phone] Anne Hussein " urea NOT APPLICABLE LinkLogic 6-22 [facility] nitrogen/creatinin (calc) Diagnostic e ratio, serum [facility] [address] [place] [phone] [address] Elijah gaspar;A [facility] [address] [place] [phone] Anne Hussein " eGFR if 114 LinkLogic > OR=60 Normal [facility] Czech mL/min/((173/1 Diagnostic 00).m2) [facility] [address] [place] [phone] [address] Elijah gaspar;A [facility] [address] [place] [phone] Anne Hussein " Estimated 98 LinkLogic > OR=60 Normal [facility] Glomerular mL/min/((173/1 Diagnostic Filtration Rate 00).m2) [facility] (calc) Lab [address] [place] [phone] [address] Elijah gaspar;A [facility] [address] [place] [phone] Anne Hussein " creatinine, serum 0.96 mg/dL LinkLogic 0.60-1.35 Normal [facility] Diagnostic [facility] [address] [place] [phone] [address] Elijah gaspar;RGA [facility] [address] [place] [phone] Anne Hussein " urea nitrogen, 10 mg/dL LinkLogic 7-25 Normal [facility] blood Diagnostic [facility] [address] [place] [phone] [address] Elijah gaspar;RGA [facility] [address] [place] [phone] Anne Hussein" blood glucose, 217 mg/dL LinkLogic 65-99 High [facility] random Diagnostic [facility] [address] [place] [phone] [address] Elijah gaspar;RGA [facility] [address] [facility] [phone] Anne Hussein " cholesterol, 154 MG/DL LinkLogic <130 High [facility] non-HDL, total (CALC) Diagnostic [facility] [address] [place] [phone] [address] Elijah gaspar;RGA [facility] [address] [place] [phone] Anne Hussein " cholesterol/HDL 7.4 (calc) LinkLogic <5.0 High [facility] ratio, serum, Diagnostic percent [facility] [address] [place] [phone] [address] Elijah gaspar;RGA [facility] [address] [place] [phone] Anne Hussein " LDL cholesterol, LDL LinkLogic [facility] serum cholesterol Diagnostic not [facility] calculated. Lab [address] [place] [address]... mg/dL Blvd (calc) [facility] [phone] [address] Elijah gaspar;RGA [facility] [address] [facility] [phone] Anne Hussein" triglyceride, 407 mg/dL LinkLogic <150 High [facility] serum, fasting Diagnostic [facility] [address] [place] [phone] [address] Elijah gaspar;RGA [facility] [address] [facility] [phone] Anne Hussein " HDL cholesterol, 24 mg/dL LinkLogic >40 Low [facility] serum Diagnostic [facility] [address] [place] [phone] [address] Elijah gaspar;RGA [facility] [address] [facility] [phone] Anne Hussein" cholesterol, serum 178 mg/dL LinkLogic <200 Normal [facility] Diagnostic [facility] [address] [place] [address] [place] [phone] Dr. Eljiah Wilson ge;RGA [facility] [address] [facility] [address] [facility] [phone] Anne Hussein HIV-1 RNA (log 10) <1.30 DETECTED LinkLogic NOT Abnormal [facility] 2/20 Log copies/mL DETECTED Diagnostic -[place] [facility] [address] [place] [phone] [address] Elijah Wilson ge " HIV-1RNA, serum, <20 DETECTED LinkLogic NOT Abnormal [facility] by PCR, copies/mL DETECTED Diagnostic quantitative -[place] [address] [place] [phone] [address] Elijah gaspar HIV-1RNA, serum, <20 copies/mL LinkLogic 05/21 by PCR, quantitative Treponema pallidum Positive LinkLogic Negative Abnormal 05/21 antibodies, by particle agglutination " rapid plasma 1:2 LinkLogic NonRea<1:1 High reagin antibody, serum " hemoglobin A1C, 6.4 % LinkLogic 4.8-5.6 High blood, as % of total hemoglobin " Hepatitis B virus HBV DNA not LinkLogic DNA, by Polymerase detected Chain Reaction " LDL cholesterol, TRIGHI mg/dL LinkLogic 0-99 serum " very low density VLDLCH mg/dL LinkLogic 5-40 lipoproteins " HDL cholesterol, 22 mg/dL LinkLogic >39 Low serum " triglyceride, 401 mg/dL LinkLogic 0-149 High serum, fasting " cholesterol, serum 159 mg/dL LinkLogic 100-199 " alanine 121 1/L LinkLogic 0-44 High aminotransferase (SGPT), serum " aspartate 41 1/L LinkLogic 0-40 High aminotransferase (SGOT), serum " alkaline 85 1/L LinkLogic 39-117 phosphatase, serum " bilirubin, serum, 0.3 mg/dL LinkLogic 0.0-1.2 total " albumin/globulin 1.6 LinkLogic 1.2-2.2 ratio, serum " globulin, serum 2.8 LinkLogic 1.5-4.5 " albumin, serum 4.5 g/dL LinkLogic 3.5-5.5 " protein, total, 7.3 g/dL LinkLogic 6.0-8.5 serum " calcium, serum 9.3 mg/dL LinkLogic 8.7-10.2 " carbon dioxide, 21 mmol/L LinkLogic 20-29 venous blood " chloride, serum 102 mmol/L LinkLogic 96-106 " potassium, serum 3.9 mmol/L LinkLogic 3.5-5.2 " sodium, serum 141 mmol/L LinkLogic 134-144 " urea 11 LinkLogic 9-20 nitrogen/creatinin e ratio, serum " eGFR if 101 LinkLogic >59 Czech mL/min/((173/1 00).m2) " Estimated 87 LinkLogic >59 Glomerular mL/min/((173/1 Filtration Rate 00).m2) (calc) " creatinine, serum 1.07 mg/dL LinkLogic 0.76-1.27 " urea nitrogen, 12 mg/dL LinkLogic 6-20 blood " blood glucose, 315 mg/dL LinkLogic 65-99 High random " immature 0 % LinkLogic Not Estab. granulocytes, percentage of total cells, blood " basophil count, 0.0 x10E3/uL LinkLogic 0.0-0.2 absolute " Eosinophil 0.2 X10E3/UL LinkLogic 0.0-0.4 Absolute Count " monocyte count, 0.3 X10E3/UL LinkLogic 0.1-0.9 blood, automated " lymphocyte count, 2.4 X10E3/UL LinkLogic 0.7-3.1 blood, automated " Absolute 7.3 X10E3/UL LinkLogic 1.4-7.0 High Neutrophils " basophils as 0 % LinkLogic Not Estab. percent of blood leukocytes " eosinophils as 2 % LinkLogic Not Estab. percent of blood leukocytes " monocytes as 3 % LinkLogic Not Estab. percent of blood leukocytes " lymphocytes as 24 % LinkLogic Not Estab. percent of blood leukocytes " neutrophils as 71 % LinkLogic Not Estab. percent of blood leukocytes " platelet count 217 X10E3/UL LinkLogic 150-379 " red blood cell 14.2 % LinkLogic 12.3-15.4 distribution width " mean corpuscular 34.6 G/DL LinkLogic 31.5-35.7 hemoglobin concentration, RBC " mean corpuscular 32.6 pg LinkLogic 26.6-33.0 hemoglobin, RBC " mean corpuscular 94 fL LinkLogic 79-97 volume, RBC " hematocrit, blood 47.4 % LinkLogic 37.5-51.0 " hemoglobin, blood 16.4 g/dL LinkLogic 13.0-17.7 " erythrocyte (RBC) 5.03 X10E6/UL LinkLogic 4.14-5.80 count " leukocyte count, 10.2 X10E3/UL LinkLogic 3.4-10.8 blood " CD4/CD8 ratio 1.64 LinkLogic 0.92-3.72 " T-suppressor cells 28.7 % LinkLogic 12.0-35.5 (CD8) as percent of blood lymphocytes " absolute CD8 689 LinkLogic 109-897 " T-helper cells 47.1 % LinkLogic 30.8-58.5 (CD4) as percent of blood lymphocytes " T-helper cells 1130 /UL LinkLogic 359-1519 (CD4) count Quantiferon Gold Negative LinkLogic Negative 05/22 TB blood test for tuberculosis screening hepatitis C 0.1 LinkLogic 0.0-0.9 11/24 antibody, serum " Treponema pallidum Positive LinkLogic Negative Abnormal antibodies, by particle agglutination " rapid plasma 1:2 LinkLogic NonRea<1:1 High reagin antibody, serum " hemoglobin A1C, 6.2 % LinkLogic 4.8-5.6 High blood, as % of total hemoglobin " HIV-1RNA, serum, <20 copies/mL LinkLogic by PCR, quantitative " LDL cholesterol, TRIGHI mg/dL LinkLogic 0-99 serum " very low density VLDLCH mg/dL LinkLogic 5-40 lipoproteins " HDL cholesterol, 22 mg/dL LinkLogic >39 Low serum " triglyceride, 471 mg/dL LinkLogic 0-149 High serum, fasting " cholesterol, serum 159 mg/dL LinkLogic 100-199 " alanine 92 1/L LinkLogic 0-44 High aminotransferase (SGPT), serum " aspartate 49 1/L LinkLogic 0-40 High aminotransferase (SGOT), serum " alkaline 79 1/L LinkLogic 39-117 phosphatase, serum " bilirubin, serum, 0.4 mg/dL LinkLogic 0.0-1.2 total " albumin/globulin 1.5 LinkLogic 1.2-2.2 ratio, serum " globulin, serum 3.1 LinkLogic 1.5-4.5 " albumin, serum 4.6 g/dL LinkLogic 3.5-5.5 " protein, total, 7.7 g/dL LinkLogic 6.0-8.5 serum " calcium, serum 9.6 mg/dL LinkLogic 8.7-10.2 " carbon dioxide, 27 mmol/L LinkLogic 18-29 venous blood " chloride, serum 100 mmol/L LinkLogic 96-106 " potassium, serum 4.6 mmol/L LinkLogic 3.5-5.2 " sodium, serum 143 mmol/L LinkLogic 134-144 " urea 12 LinkLogic 9-20 nitrogen/creatinin e ratio, serum " eGFR if 99 LinkLogic >59 Czech mL/min/((173/1 00).m2) " Estimated 86 LinkLogic >59 Glomerular mL/min/((173/1 Filtration Rate 00).m2) (calc) " creatinine, serum 1.08 mg/dL LinkLogic 0.76-1.27 " urea nitrogen, 13 mg/dL LinkLogic 6-20 blood " blood glucose, 178 mg/dL LinkLogic 65-99 High random " immature 1 % LinkLogic Not Estab. granulocytes, percentage of total cells, blood " basophil count, 0.0 x10E3/uL LinkLogic 0.0-0.2 absolute " Eosinophil 0.1 X10E3/UL LinkLogic 0.0-0.4 Absolute Count " monocyte count, 0.3 X10E3/UL LinkLogic 0.1-0.9 blood, automated " lymphocyte count, 1.9 X10E3/UL LinkLogic 0.7-3.1 blood, automated " Absolute 4.7 X10E3/UL LinkLogic 1.4-7.0 Neutrophils " basophils as 0 % LinkLogic Not Estab. percent of blood leukocytes " eosinophils as 2 % LinkLogic Not Estab. percent of blood leukocytes " monocytes as 4 % LinkLogic Not Estab. percent of blood leukocytes " lymphocytes as 26 % LinkLogic Not Estab. percent of blood leukocytes " neutrophils as 67 % LinkLogic Not Estab. percent of blood leukocytes " platelet count 247 X10E3/UL LinkLogic 150-379 " red blood cell 13.7 % LinkLogic 12.3-15.4 distribution width " mean corpuscular 34.8 G/DL LinkLogic 31.5-35.7 hemoglobin concentration, RBC " mean corpuscular 31.4 pg LinkLogic 26.6-33.0 hemoglobin, RBC " mean corpuscular 90 fL LinkLogic 79-97 volume, RBC " hematocrit, blood 47.7 % LinkLogic 37.5-51.0 " hemoglobin, blood 16.6 g/dL LinkLogic 13.0-17.7 " erythrocyte (RBC) 5.29 X10E6/UL LinkLogic 4.14-5.80 count " leukocyte count, 7.1 X10E3/UL LinkLogic 3.4-10.8 blood " CD4/CD8 ratio 1.39 LinkLogic 0.92-3.72 " T-suppressor cells 32.4 % LinkLogic 12.0-35.5 (CD8) as percent of blood lymphocytes " absolute CD8 616 LinkLogic 109-897 " T-helper cells 44.9 % LinkLogic 30.8-58.5 (CD4) as percent of blood lymphocytes " T-helper cells 853 /UL LinkLogic 359-1519 (CD4) count Treponema pallidum Positive LinkLogic Negative Abnormal 06/16 antibodies, by particle agglutination " rapid plasma 1:4 LinkLogic NonRea<1:1 High reagin antibody, serum " hemoglobin A1C, 6.8 % LinkLogic 4.8-5.6 High blood, as % of total hemoglobin " HIV-1RNA, serum, 40 /mL LinkLogic by PCR, quantitative " LDL cholesterol, 68 mg/dL LinkLogic 0-99 serum " very low density 78 mg/dL LinkLogic 5-40 High lipoproteins " HDL cholesterol, 25 mg/dL LinkLogic >39 Low serum " triglyceride, 390 mg/dL LinkLogic 0-149 High serum, fasting " cholesterol, serum 171 mg/dL LinkLogic 100-199 " alanine 77 1/L LinkLogic 0-44 High aminotransferase (SGPT), serum " aspartate 46 1/L LinkLogic 0-40 High aminotransferase (SGOT), serum " alkaline 89 1/L LinkLogic 39-117 phosphatase, serum " bilirubin, serum, 0.4 mg/dL LinkLogic 0.0-1.2 total " albumin/globulin 1.7 LinkLogic 1.2-2.2 ratio, serum " globulin, serum 2.6 LinkLogic 1.5-4.5 " albumin, serum 4.4 g/dL LinkLogic 3.5-5.5 " protein, total, 7.0 g/dL LinkLogic 6.0-8.5 serum " calcium, serum 9.3 mg/dL LinkLogic 8.7-10.2 " carbon dioxide, 25 mmol/L LinkLogic 18-29 venous blood " chloride, serum 102 mmol/L LinkLogic 96-106 " potassium, serum 4.6 mmol/L LinkLogic 3.5-5.2 " sodium, serum 142 mmol/L LinkLogic 134-144 " urea 9 LinkLogic 9-20 nitrogen/creatinin e ratio, serum " eGFR if 127 LinkLogic >59 Czech mL/min/((173/1 00).m2) " Estimated 110 LinkLogic >59 Glomerular mL/min/((173/1 Filtration Rate 00).m2) (calc) " creatinine, serum 0.86 mg/dL LinkLogic 0.76-1.27 " urea nitrogen, 8 mg/dL LinkLogic 6-20 blood " blood glucose, 236 mg/dL LinkLogic 65-99 High random " immature 0 % LinkLogic granulocytes, percentage of total cells, blood " basophil count, 0.0 x10E3/uL LinkLogic 0.0-0.2 absolute " Eosinophil 0.2 X10E3/UL LinkLogic 0.0-0.4 Absolute Count " monocyte count, 0.3 X10E3/UL LinkLogic 0.1-0.9 blood, automated " lymphocyte count, 2.1 X10E3/UL LinkLogic 0.7-3.1 blood, automated " Absolute 5.2 X10E3/UL LinkLogic 1.4-7.0 Neutrophils " basophils as 1 % LinkLogic percent of blood leukocytes " eosinophils as 2 % LinkLogic percent of blood leukocytes " monocytes as 4 % LinkLogic percent of blood leukocytes " lymphocytes as 26 % LinkLogic percent of blood leukocytes " neutrophils as 67 % LinkLogic percent of blood leukocytes " platelet count 239 X10E3/UL LinkLogic 150-379 " red blood cell 13.0 % LinkLogic 12.3-15.4 distribution width " mean corpuscular 35.0 G/DL LinkLogic 31.5-35.7 hemoglobin concentration, RBC " mean corpuscular 31.1 pg LinkLogic 26.6-33.0 hemoglobin, RBC " mean corpuscular 89 fL LinkLogic 79-97 volume, RBC " hematocrit, blood 46.9 % LinkLogic 37.5-51.0 " hemoglobin, blood 16.4 g/dL LinkLogic 12.6-17.7 " erythrocyte (RBC) 5.27 X10E6/UL LinkLogic 4.14-5.80 count " leukocyte count, 7.8 X10E3/UL LinkLogic 3.4-10.8 blood " CD4/CD8 ratio 1.20 LinkLogic 0.92-3.72 " T-suppressor cells 34.8 % LinkLogic 12.0-35.5 (CD8) as percent of blood lymphocytes " absolute CD8 731 LinkLogic 109-897 " T-helper cells 41.9 % LinkLogic 30.8-58.5 (CD4) as percent of blood lymphocytes " T-helper cells 880 /UL LinkLogic 359-1519 (CD4) count Treponema pallidum Positive LinkLogic Negative Abnormal 01/18 antibodies, by particle agglutination " rapid plasma 1:4 LinkLogic NonRea<1:1 High reagin antibody, serum " HIV-1RNA, serum, <20 copies/mL LinkLogic by PCR, quantitative " Hepatitis B virus <10 LinkLogic DNA, by Polymerase Chain Reaction " LDL cholesterol, TRIGHI mg/dL LinkLogic 0-99 serum " very low density VLDLCH mg/dL LinkLogic 5-40 lipoproteins " HDL cholesterol, 17 mg/dL LinkLogic >39 Low serum " triglyceride, 559 mg/dL LinkLogic 0-149 Panic high serum, fasting " cholesterol, serum 174 mg/dL LinkLogic 100-199 " alanine 90 1/L LinkLogic 0-44 High aminotransferase (SGPT), serum " aspartate 66 1/L LinkLogic 0-40 High aminotransferase (SGOT), serum " alkaline 104 1/L LinkLogic 39-117 phosphatase, serum " bilirubin, serum, 0.4 mg/dL LinkLogic 0.0-1.2 total " albumin/globulin 1.3 LinkLogic 1.2-2.2 ratio, serum " globulin, serum 3.0 LinkLogic 1.5-4.5 " albumin, serum 4.0 g/dL LinkLogic 3.5-5.5 " protein, total, 7.0 g/dL LinkLogic 6.0-8.5 serum " calcium, serum 9.0 mg/dL LinkLogic 8.7-10.2 " carbon dioxide, 22 mmol/L LinkLogic 18-29 venous blood " chloride, serum 100 mmol/L LinkLogic 96-106 " potassium, serum 4.3 mmol/L LinkLogic 3.5-5.2 " sodium, serum 139 mmol/L LinkLogic 134-144 " urea 8 LinkLogic 8-19 nitrogen/creatinin e ratio, serum " eGFR if 107 LinkLogic >59 Czech mL/min/((173/1 00).m2) " Estimated 93 LinkLogic >59 Glomerular mL/min/((173/1 Filtration Rate 00).m2) (calc) " creatinine, serum 1.02 mg/dL LinkLogic 0.76-1.27 " urea nitrogen, 8 mg/dL LinkLogic 6-20 blood " blood glucose, 313 mg/dL LinkLogic 65-99 High random " immature 0 % LinkLogic granulocytes, percentage of total cells, blood " basophil count, 0.0 x10E3/uL LinkLogic 0.0-0.2 absolute " Eosinophil 0.3 X10E3/UL LinkLogic 0.0-0.4 Absolute Count " monocyte count, 0.4 X10E3/UL LinkLogic 0.1-0.9 blood, automated " lymphocyte count, 1.6 X10E3/UL LinkLogic 0.7-3.1 blood, automated " Absolute 5.9 X10E3/UL LinkLogic 1.4-7.0 Neutrophils " basophils as 0 % LinkLogic percent of blood leukocytes " eosinophils as 3 % LinkLogic percent of blood leukocytes " monocytes as 5 % LinkLogic percent of blood leukocytes " lymphocytes as 19 % LinkLogic percent of blood leukocytes " neutrophils as 73 % LinkLogic percent of blood leukocytes " platelet count 192 X10E3/UL LinkLogic 150-379 " red blood cell 13.7 % LinkLogic 12.3-15.4 distribution width " mean corpuscular 34.7 G/DL LinkLogic 31.5-35.7 hemoglobin concentration, RBC " mean corpuscular 32.0 pg LinkLogic 26.6-33.0 hemoglobin, RBC " mean corpuscular 92 fL LinkLogic 79-97 volume, RBC " hematocrit, blood 48.1 % LinkLogic 37.5-51.0 " hemoglobin, blood 16.7 g/dL LinkLogic 12.6-17.7 " erythrocyte (RBC) 5.22 X10E6/UL LinkLogic 4.14-5.80 count " leukocyte count, 8.3 X10E3/UL LinkLogic 3.4-10.8 blood " CD4/CD8 ratio 1.43 LinkLogic 0.92-3.72 " T-suppressor cells 32.0 % LinkLogic 12.0-35.5 (CD8) as percent of blood lymphocytes " absolute CD8 512 LinkLogic 109-897 " T-helper cells 45.9 % LinkLogic 30.8-58.5 (CD4) as percent of blood lymphocytes " T-helper cells 734 /UL LinkLogic 359-1519 (CD4) count Neisseria Negative LinkLogic Negative 01/18 gonorrhoeae DNA probe " chlamydia DNA Negative LinkLogic Negative probe Quantiferon Gold Negative LinkLogic Negative 07/21 TB blood test for tuberculosis screening " Treponema pallidum Positive LinkLogic Negative Abnormal antibodies, by particle agglutination " rapid plasma 1:2 LinkLogic NonRea<1:1 High reagin antibody, serum " HIV-1RNA, serum, <20 copies/mL LinkLogic by PCR, quantitative " LDL cholesterol, TRIGHI mg/dL LinkLogic 0-99 serum " very low density VLDLCH mg/dL LinkLogic 5-40 lipoproteins " HDL cholesterol, 19 mg/dL LinkLogic >39 Low serum " triglyceride, 452 mg/dL LinkLogic 0-149 High serum, fasting " cholesterol, serum 144 mg/dL LinkLogic 100-199 " alanine 128 1/L LinkLogic 0-44 High aminotransferase (SGPT), serum " aspartate 65 1/L LinkLogic 0-40 High aminotransferase (SGOT), serum " alkaline 115 1/L LinkLogic 39-117 phosphatase, serum " bilirubin, serum, 0.6 mg/dL LinkLogic 0.0-1.2 total " albumin/globulin 1.5 LinkLogic 1.1-2.5 ratio, serum " globulin, serum 2.8 LinkLogic 1.5-4.5 " albumin, serum 4.2 g/dL LinkLogic 3.5-5.5 " protein, total, 7.0 g/dL LinkLogic 6.0-8.5 serum " calcium, serum 8.8 mg/dL [facility] 8.7-10.2 " carbon dioxide, 18 mmol/L [facility] 18-29 venous blood " chloride, serum 101 mmol/L [facility] 97-108 " potassium, serum 4.0 mmol/L [facility] 3.5-5.2 " sodium, serum 139 mmol/L [facility] 134-144 " urea 10 [facility] 8-19 nitrogen/creatinin e ratio, serum " eGFR if 121 [facility] >59 Czech mL/min/((173/1 00).m2) " Estimated 105 [facility] >59 Glomerular mL/min/((173/1 Filtration Rate 00).m2) (calc) " creatinine, serum 0.93 mg/dL [facility] 0.76-1.27 " urea nitrogen, 9 mg/dL [facility] 6-20 blood " blood glucose, 362 mg/dL [facility] 65-99 High random " immature 0 % [facility] granulocytes, percentage of total cells, blood " basophil count, 0.0 x10E3/uL [facility] 0.0-0.2 absolute " Eosinophil 0.2 X10E3/UL [facility] 0.0-0.4 Absolute Count " monocyte count, 0.3 X10E3/UL [facility] 0.1-0.9 blood, automated " lymphocyte count, 1.6 X10E3/UL [facility] 0.7-3.1 blood, automated " Absolute 3.7 X10E3/UL [facility] 1.4-7.0 Neutrophils " basophils as 0 % [facility] percent of blood leukocytes " eosinophils as 3 % [facility] percent of blood leukocytes " monocytes as 5 % [facility] percent of blood leukocytes " lymphocytes as 27 % [facility] percent of blood leukocytes " neutrophils as 65 % [facility] percent of blood leukocytes " platelet count 165 X10E3/UL [facility] 150-379 " red blood cell 13.6 % [facility] 12.3-15.4 distribution width " mean corpuscular 34.6 G/DL [facility] 31.5-35.7 hemoglobin concentration, RBC " mean corpuscular 31.0 pg [facility] 26.6-33.0 hemoglobin, RBC " mean corpuscular 90 fL [facility] 79-97 volume, RBC " hematocrit, blood 45.6 % [facility] 37.5-51.0 " hemoglobin, blood 15.8 g/dL [facility] 12.6-17.7 " erythrocyte (RBC) 5.09 X10E6/UL [facility] 4.14-5.80 count " leukocyte count, 5.8 X10E3/UL [facility] 3.4-10.8 blood " CD4/CD8 ratio 1.39 [facility] 0.92-3.72 " T-suppressor cells 31.0 % [facility] 12.0-35.5 (CD8) as percent of blood lymphocytes " absolute CD8 496 [facility] 109-897 " T-helper cells 43.2 % [facility] 30.8-58.5 (CD4) as percent of blood lymphocytes " T-helper cells 691 /UL [facility] 359-1519 (CD4) count hepatitis A Reactive Rupert 6 antibody, total [place] hepatitis B Non-reactive 6 surface antibody [place] T-helper cells 42 % Rupert 6/10 (CD4) as percent [place] of blood lymphocytes HIV-1RNA, serum, <20 Rupert 6/10 by PCR, [place] quantitative T-helper cells 677 uL Rupert 6/10 (CD4) count [place] toxoplasma gondii <3 Rupert 6/10 antibody, IgG [place] rapid plasma 1:2 Rupert 6/10 reagin antibody, [place] serum Hepatitis C virus Not-detected 04/15 (HCV) RNA, PCR, [place] quantitative hepatitis C Non-reactive Rupert 6/10 antibody, serum [place] hepatitis B reactive Rupert 04/15 surface antigen [facility] protein, total, 7.6 g/dL [facility] 04/15 serum [place] " albumin, serum 4.0 g/dL [facility] bilirubin, serum, 0.5 mg/dL [facility] alanine 103 1/L Rupert aminotransferase [place] (SGPT), serum " aspartate 54 1/L [facility] aminotransferase [place] (SGOT), serum erythrocyte (RBC) 5.26 10*6/mm3 [facility] platelet count 228 10*3/mm3 [facility] " hematocrit, blood 46.8 % [facility] hemoglobin, blood 16.5 g/dL [facility] " leukocyte count, 0.74 10*3/mm3 [facility] blood [facility] triglyceride, 330 mg/dL [facility] 04/15 serum, fasting [facility] " LDL cholesterol, 88 mg/dL [facility] serum [facility] " HDL cholesterol, 23 mg/dL [facility] serum [facility] cholesterol, serum 153 mg/dL [facility] 04/15 [facility] creatinine, serum 0.9 mg/dL [facility] " urea nitrogen, 10 mg/dL [facility] blood [facility] " potassium, serum 4.1 mmol/L [facility] sodium, serum 142 mmol/L [facility] 04/15 [facility] HIV-1RNA, serum, 75 /mL [facility] 02/28 by PCR, [facility] quantitative " T-helper cells 783 uL [facility] (CD4) count [facility] HISTORY OF IMMUNIZATIONS No Information Available HISTORY OF MEDICATION USE Medication Instructions Dates Provider Comments ANTABUSE 250 MG ORAL 1 By Mouth Every Day Zishan Samiuddin TABLET METFORMIN HCL 500 MG 1 by mouth twice a Rupert [place] ORAL TABLET day NICOTINE - Sneha Hurst MG/24HR TRANSDERMAL KIT LEXAPRO 10 MG ORAL 1 By Mouth Every Day Zishan Samiuddin TABLET RISPERDAL 2 MG ORAL 1 By Mouth at bedtime - Zishan Samiuddin TABLET LISINOPRIL 20 MG TAKE 1 TABLET BY Naomie S [place] TABLET MOUTH EVERY DAY MedAdherence MIRTAZAPINE TABLET - Dc Larauddin COMPLERA 200-25-300 1 by mouth daily with Rupert [place] MG ORAL TABLET food SOCIAL HISTORY Date Observation Value Provider drug use, illicit Never Derickjesse Wilder " alcohol use Currently Derick Wilder " social history E&M Single. N Derick Meño ot homeless. Born in [place]. City: [place]. State: [place]. E mployed full-time. [employer] . Highest education level: some college. S ex at : Male. Sexual orientation: Botello. Gender identity: Male. Gender of partner(s): Male. Age of first sexual intercourse: 16. Sexually Active: No. kaci fuentes " social history reviewed E&M reviewed today Derickjesse Wilder " sexual orientation Bot[place] Derick Wilder " assessment of health Adequate Derick Meño literacy ([facility] 2014 Standards, 3C10) " passive cigarette smoke No Derick Wilder exposure " smoking status former smoker Derick Wilder " Exercise Program Referral Pool Derickjesse Wilder " Weight Management Counseling Pool Wilder Provided " Nutrition intervention Pool Wilder time of call 04/25/2019 11:55 AM Agustina Simpson time of call 02/08/2019 1:57 PM Kelli Lyles smoking status former smoker Dc Guerrero sexual orientation Bot[place] Rupert Tiwari " assessment of health Adequate Caterina Macedo literacy ([facility] 2014 Standards, 3C10) " drug use, illicit Never Caterina Macedo " alcohol use Currently Caterina Macedo " smoking status former smoker Caterina Macedo " social history E&M Single. N Caterina Macedo ot homeless. Born [place] City: [place]. State: [place]. E mployed full-time. [employer] . Highest education level: some college. S ex at : Male. Sexual orientation: Botello. Gender identity: Male. Gender of partner(s): Male. Age of first sexual intercourse: 16. Sexually Active: No. d gina " social history reviewed E&M reviewed today Caterina Macedo " Exercise Program Referral T Caterina Macedo " Weight Management Counseling T Caterina Macedo Provided " Nutrition intervention T Caterina Macedo smoking status former smoker Dc Guerrero sexual orientation Bot[place] Rupert Tiwari " drug use, illicit Never Caterina Macedo " alcohol use Currently Caterina Macedo " social history E&M Single. N Caterina Macedo ot homeless. Born in [facility]. City: [place]. State: [place]. E mployed full-time. [employer] . Highest education level: some college. S ex at : Male. Sexual orientation: Botello. Gender identity: Male. Gender of partner(s): Male. Age of first sexual intercourse: 16. Sexually Active: No. kaci fuentes " social history reviewed E&M reviewed today Caterina Macedo " passive cigarette smoke No Caterina Macedo exposure " smoking status former smoker Caterina Macedo " assessment of health Adequate Caterina Macedo literacy ([facility] 2014 Standards, 3C10) " Exercise Program Referral T Caterina Macedo " Weight Management Counseling T Caterina Macedo Provided " Nutrition intervention T Caterina Macedo sexual orientation Bot[place] Rupert Tiwari " drug use, illicit Never Caterina Macedo " alcohol use Currently Caterina Macedo " social history E&M Single. N Caterina Macedo ot homeless. Born in [facility]. City: [place]. State: [place]. E mployed full-time. [employer] . Highest education level: some college. S ex at : Male. Sexual orientation: Botello. Gender identity: Male. Gender of partner(s): Male. Age of first sexual intercourse: 16. Sexually Active: No. d gina " social history reviewed E&M reviewed today Caterina Macedo " passive cigarette smoke No Caterina Macedo exposure " smoking status former smoker Caterina Macedo " assessment of health Adequate Caterina Macedo literacy ([facility] 2014 Standards, 3C10) smoking, advice to quit Yes Rupert Eganpatrice " Exercise Program Referral T Caterina Macedo " Weight Management Counseling T Caterina Macedo Provided " Nutrition intervention T Caterina Macedo " assessment of health Adequate Caterina Macedo literacy ([facility] 2014 Standards, 3C10) " passive cigarette smoke No Caterina Macedo exposure " smoking status current every day smoker Caterina Ponceard " social history E&M Single. N Caterina Macedo ot homeless. Born in [facility]. City: [place]. State: [place]. E mployed full-time. [employer] . Highest education level: some college. S ex at : Male. Sexual orientation: Botello. Gender identity: Male. Gender of partner(s): Male. Age of first sexual intercourse: 16. Sexually Active: No. d gina " social history reviewed E&M reviewed today Caterina Macedo " alcohol use Currently Caterina Macedo smoking status current every day smoker Jinelmer Larajose c sexual orientation Botello Rupert Tiwari " smoking, advice to quit Yes Rupert Tiwari " Exercise Program Referral Pool Tiwari " Weight Management Counseling T Rupert Tiwari Provided " Nutrition intervention Pool Tiwari " alcohol use Currently Caterina Macedo " social history E&M Single. N Caterina Macedo ot homeless. Born in [facility]. City: [place]. State: [place]. E mployed full-time. [employer] . Highest education level: some college. S ex at : Male. Sexual orientation: Botello. Gender identity: Male. Gender of partner(s): Male. Age of first sexual intercourse: 16. Sexually Active: No. d gina " social history reviewed E&M reviewed today Caterina Macedo " passive cigarette smoke No Caterina Macedo exposure " smoking status current every day smoker Caterina Macedo smoking/tobacco cessation, Education done, Cessation Sneha Dan patient education and information provided counseling " tobacco use (cigarettes, Currently Sneha Sy cigar, chew, pipe) " smoking status current some day smoker Sneha aDn smoking status current some day smoker Migelregis Cesar time of call 07/12/2016 4:28 PM Maribeth Abad drug use, illicit Never Dc Guerrero " alcohol use, frequency few times per month Dc Guerrero " alcohol use Currently Dc Guerrero " smoking status current some day smoker Dc Guerrero " home/family situation, LIves with sister and his Dc Guerrero assessment father and her 2 sons.Counts on them for work. " family support Grew up in a two parent Dc Guerrero family with a younger sister. 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 sexual orientation Bot[place] Shirley Shashank alcohol use, number maximum 9 drinks per month Rupert Tiwari drinks per occasion " Exercise Program Referral Pool Tiwari " Weight Management Counseling Pool Tiwari Provided " Nutrition intervention Pool Tiwari " drug use, illicit Never Caterina Macedo " alcohol use, frequency few times per month Caterina Macedo " alcohol use Currently Caterina Macedo " social history reviewed E&M reviewed today Caterina Macedo " social history E&M Single. N Caterina Macedo ot homeless. Born in [facility]. City: [place]. State: [place]. E mployed full-time. [employer] . Highest education level: some college. S ex at : Male. Sexual orientation: Botello. Gender identity: Male. Gender of partner(s): Male. Age of first sexual intercourse: 16. Sexually Active: No. d gina " sexual orientation Bot[place] Caterina Macedo " sex at Male Caterinamichael Macedo " Occupation #1 [employer] Caterina Macedo " patient considered to be No Caterina Macedo homeless " passive cigarette smoke No Caterina Macedo exposure " smoking status former smoker Rupert Tiwari smoking status never smoker Shirley Encarnacion " social history reviewed E&M reviewed today Shirley Encarnacion FUNCTIONAL STATUS No Information Available MENTAL STATUS Date Observation Value Provider mental status examination: alert and oriented to Rupert Tiwari orientation E&M person, place, and time " assessment of mood and affect good eye contact, normal Rupert Tiwari E&M affect " Generalized Anxiety Disorder 0 Derick Wilder Questionnaire - Question 2 " Generalized Anxiety Disorder 0 Derick Wilder Questionnaire - Question 1 mental status assessment, good Dc Guerrero judgment " insight (mental status exam) good Zishan Samiuddin " Mental Status Exam: adequate fund of Zishan Samiuddin intelligence information, intact memory processes, oriented to person, oriented to place, oriented to time, oriented to situation, oriented to reality, average " hallucinations none Zishan Samiuddin " thought content (mental lucid Zishan Samiuddin status exam) (E&M) " mental status assessment, goal-directed, logical Zishan Samiuddin process " mental status assessment, alert, attentive, clear Zishan Samiuddin sensorium " affect (mental status exam) congruent, euthymic, normal Zishan Samiuddin intensity, normal range " mood (mental status exam) anxious, pleasant Zishan Samiuddin " mental status assessment, normal flow, normal pace, Zishan Samiuddin speech activity normal pressure, normal rate, normal tone, normal volume, spontaneous " mental status assessment, normal gait, normal Zishan Samiuddin motor activity posture, fidgety " behavior (mental status exam) appropriate, candid, Zishan Samiuddin cooperative, good eye contact, polite, responsive " mental appearance (mental adequate hygiene, Zishan Samiuddin status exam) appropriate dress, looks like stated age, neat mental status examination: alert and oriented to Rupert Tiwari orientation E&M person, place, and time " assessment of mood and affect good eye contact, normal Rupert Tiwari E&M affect mental status assessment, good Zishan Samiuddin judgment " insight (mental status exam) good Zishan Samiuddin " Mental Status Exam: adequate fund of Zishan Samiuddin intelligence information, intact memory processes, oriented to person, oriented to place, oriented to time, oriented to situation, oriented to reality, average " hallucinations none Zishan Samiuddin " thought content (mental lucid Zishan Samiuddin status exam) (E&M) " mental status assessment, goal-directed, logical Zishan Samiuddin process " mental status assessment, alert, attentive, clear Zishan Samiuddin sensorium " affect (mental status exam) congruent, euthymic, normal Zishan Samiuddin intensity, normal range, constricted " mood (mental status exam) anxious, frustrated Zishan Samiuddin " mental status assessment, normal flow, normal pace, Zian Samiuddin speech activity normal pressure, normal rate, normal tone, normal volume, spontaneous " mental status assessment, normal gait, normal Zishan Samiuddin motor activity posture, fidgety " behavior (mental status exam) appropriate, candid, Zishan Samiuddin cooperative, good eye contact, polite, responsive " mental appearance (mental adequate hygiene, [facility]) appropriate dress, looks like stated age, neat mental status examination: alert and oriented to Rupert [place] orientation E&M person, place, and time " assessment of mood and affect good eye contact, normal Rupert [place] E&M affect " Generalized Anxiety Disorder 0 Caterina Macedo Questionnaire - Question 2 " Generalized Anxiety Disorder 0 Caterina Macedo Questionnaire - Question 1 mental status examination: alert and oriented to Rupert [place] orientation E&M person, place, and time " assessment of mood and affect good eye contact, normal Rupert [place] E&M affect " Generalized Anxiety Disorder 0 Caterina Macedo Questionnaire - Question 2 " Generalized Anxiety Disorder 0 Caterina Macedo Questionnaire - Question 1 mental status examination: alert and oriented to Rupert [place] orientation E&M person, place, and time " assessment of mood and affect good eye contact, normal Rupert [place] E&M affect " Generalized Anxiety Disorder 0 Caterina Macedo Questionnaire - Question 2 " Generalized Anxiety Disorder 0 Caterina Macedo Questionnaire - Question 1 mental status assessment, good Dc Albaradoikatdin judgment " insight (mental status exam) good Jinregis Albaradoiuddin " Mental Status Exam: adequate fund of [facility] intelligence information, intact memory processes, oriented to person, oriented to place, oriented to time, oriented to situation, oriented to reality, average " hallucinations none Migelan ePriuddin " thought content (mental lucid [facility] status exam) (E&M) " mental status assessment, able to abstract, Migelan Periuddin process goal-directed, logical " mental status assessment, alert, attentive, clear Dc Albaradoiuddin sensorium " affect (mental status exam) congruent, euthymic, normal Zishan Samiuddin intensity, normal range " mood (mental status exam) pleasant Zishan Samiuddin " mental status assessment, normal flow, normal pace, Zishan Samiuddin speech activity normal pressure, normal rate, normal tone, normal volume, spontaneous " mental status assessment, normal gait, normal posture Zishan Samiuddin motor activity " behavior (mental status exam) appropriate, candid, Zishan Samiuddin cooperative, good eye contact, polite, responsive " mental appearance (mental adequate hygiene, Zishan Samiuddin status exam) appropriate dress, looks like stated age, neat assessment of mood and affect good eye contact, normal Rupert Tiwari E&M affect " Generalized Anxiety Disorder 0 Caterina Macedo Questionnaire - Question 2 " Generalized Anxiety Disorder 0 Caterina Macedo Questionnaire - Question 1 mental status assessment, good Zishan Samiuddin judgment " insight (mental status exam) good Zishan Samiuddin " Mental Status Exam: adequate fund of Zishan Samiuddin intelligence information, intact memory processes, oriented to person, oriented to place, oriented to time, oriented to situation, oriented to reality, average " hallucinations none Zishan Samiuddin " thought content (mental lucid Zishan Samiuddin status exam) (E&M) " mental status assessment, able to abstract, Zishan Samiuddin process goal-directed, logical " mental status assessment, alert, attentive, clear Zishan Samiuddin sensorium " affect (mental status exam) congruent, euthymic, normal Zishan Samiuddin intensity, normal range " mood (mental status exam) pleasant Zishan Samiuddin " mental status assessment, normal flow, normal pace, Zishan Samiuddin speech activity normal pressure, normal rate, normal tone, normal volume, spontaneous " mental status assessment, normal gait, normal posture Zishan Samiuddin motor activity " behavior (mental status exam) appropriate, candid, Zishan Samiuddin cooperative, good eye contact, polite, responsive " mental appearance (mental adequate hygiene, Zishan Samiuddin status exam) appropriate dress, looks like stated age, neat mental status assessment, good Zishan Samiuddin judgment " insight (mental status exam) good Zishan Samiuddin " Mental Status Exam: adequate fund of Dc Laraudbrendan intelligence information, intact memory processes, oriented to person, oriented to place, oriented to time, oriented to situation, oriented to reality, average " hallucinations none Jinelmer Albaradoiuddin " thought content (mental lucid [facility] status exam) (E&M) " mental status assessment, able to abstract, Jinelmer Albaradoiuddin process goal-directed, logical " mental status assessment, alert, attentive, clear Jinelmer Samiuddin sensorium " affect (mental status exam) congruent, euthymic, normal Zishan Samiuddin intensity, normal range " mood (mental status exam) pleasant Dc Albaradoiuddin " mental status assessment, normal flow, normal pace, Zian Samiuddin speech activity normal pressure, normal rate, normal tone, normal volume, spontaneous " mental status assessment, normal gait, normal posture Ziperryan Samiuddin motor activity " behavior (mental status exam) appropriate, candid, Jinelmer Albaradoiuddin cooperative, good eye contact, polite, responsive " mental appearance (mental adequate hygiene, Migelan Samiuddin status exam) appropriate dress, looks like stated age, neat " anxiety worry a lot, restlessness, Dc Albaradoiuddin irritability assessment of mood and affect good eye contact, normal [facility] E&M affect " mental status examination: alert and oriented to [facility] orientation E&M person, place, and time Generalized Anxiety Disorder 0 Caterina Macedo Questionnaire - Question 2 " Generalized Anxiety Disorder 0 Caterina Macedo Questionnaire - Question 1 assessment of mood and affect good eye contact, normal [facility] E&M affect " mental status examination: alert and oriented to [facility] orientation E&M person, place, and time MEDICAL EQUIPMENT No Information Available FAMILY HISTORY No Information Available INSURANCE PROVIDERS Payer name Policy type / Coverage type Covered green party ID Sliding Fee - Cat 3 [employer] insurance [employer] [id number] Copay Assistance - Financial Services Other [id number] Stevo Stephenson 101-200% Other [id number] Sliding Fee - Cat 3 [employer] insurance company Stevo Stephenson 101-200% Other Sliding Fee - Cat 2 [employer] insurance [employer] FAMILY PLANNING*TITLE V Medicaid Primary Health Care Ron Other Stevo White 101-200% Other *Stevo White 0-100% Other Sliding Fee - Cat 1 Commercial insurance company Sliding Fee - Cat 3 Commercial insurance company [id number] Stevo White 101-200% Other [id number] Premium Assistance -Financial Services Other [id number] [facility] Primary Health Care Ron Other [id number] Family Planning/WHFPT Medicaid [id number] Sliding Fee Scale Commercial insurance company Stevo White up to 300% Other [id number] ADVANCE DIRECTIVES Name Date DISCUSSED - NO DECISION MADE TREATMENT PLAN Name return to clinic return to clinic Date Name HBV RT PCR, Quant (Graph) HCV Antibody RPR, Rfx Qn RPR/Confirm TP Comp. Metabolic Panel (14) CBC With Differential/Platelet CD4/CD8 Ratio Profile Lipid Panel RNA, Real Time PCR (Graph) Hemoglobin A1c RPR, Rfx Qn RPR/Confirm TP Comp. Metabolic Panel (14) CBC With Differential/Platelet CD4/CD8 Ratio Profile Lipid Panel RNA, Real Time PCR (Graph) QuantiFERON TB Gold (In Tube) HBV RT PCR, Quant (Graph) RPR, Rfx Qn RPR/Confirm TP Comp. Metabolic Panel (14) CBC With Differential/Platelet CD4/CD8 Ratio Profile Lipid Panel RNA, Real Time PCR (Graph) Hemoglobin A1c Hemoglobin A1c HCV Antibody RPR, Rfx Qn RPR/Confirm TP Comp. Metabolic Panel (14) CBC With Differential/Platelet CD4/CD8 Ratio Profile Lipid Panel RNA, Real Time PCR (Graph) RPR, Rfx Qn RPR/Confirm TP Comp. Metabolic Panel (14) CBC With Differential/Platelet CD4/CD8 Ratio Profile Lipid Panel RNA, Real Time PCR (Graph) Hemoglobin A1c HBV RT PCR, Quant (Graph) RPR, Rfx Qn RPR/Confirm TP Comp. Metabolic Panel (14) CBC With Differential/Platelet CD4/CD8 Ratio Profile Lipid Panel RNA, Real Time PCR (Graph) Chlamydia/GC Amplification (Urine) QuantiFERON TB Gold (In Tube) Lipid Panel RPR, Rfx Qn RPR/Confirm TP Comp. Metabolic Panel (14) CD4/CD8 Ratio Profile RNA, Real Time PCR (Graph) Ofc Vst, Est Level IV Est Patient Exp Problem - 70404 Ofc Vst, Est Level IV Est Patient Exp Problem - 84419 Ofc Vst, Est Level IV INFLUENZA VACCINE QUADRIVALENT 3 YRS PLUS IM Spherocyl, SV, plano to +/- 4.00d sphere, 0.12 to 2.00d cyl, per lens Frames, purchases Est Patient Intermediate Opth - 88180 Ofc Vst, Est Level IV Pneumovax Vaccine [id number] Ofc Vst, Est Level IV Primary Care Medical Case Management Primary Care Medical Case Management Primary Care Medical Case Management Est Patient Exp Problem - 08988 Ofc Vst, Est Level IV INFLUENZA VACCINE QUADRIVALENT 3 YRS PLUS IM Est Patient Exp Problem - 23785 Dispensing Visit (UNLIVSTED OPHTHALMOLOGICAL SERVICE/PROCEDURE) Primary Care Medical Case Management Primary Care Medical Case Management Frames, purchases Spherocyl, SV, plano to +/- 4.00d sphere, 0.12 to 2.00d cyl, per lens Diagnostic evaluation with medical - 20864 Est Patient Intermediate Opth - 74614 Est Patient Intermediate Opth - 22591 Primary Care Medical Case Management Primary Care Medical Case Management Primary Care Medical Case Management Primary Care Medical Case Management Primary Care Medical Case Management Behavioral Health - Psychiatry Primary Care - Service Planning Comprehensive Primary Care - Assesment-Comprehensive [facility] Primary Care Medical Case Management Ofc Vst, New Level IV Behavioral Health - Psychiatry Prevnar (PCV13) IM Dispensing Visit (UNLIVSTED OPHTHALMOLOGICAL SERVICE/PROCEDURE) Frames, purchases Spherocyl, SV, plano to +/- 4.00d sphere, 0.12 to 2.00d cyl, per lens Est Patient Intermediate Opth - 60880 New Patient Intermediate Opth - 46055 HISTORY OF PROCEDURES Procedure Date Procedure Name Provider Procedure Notes Status Spherocyl, SV, plano to Ashlee Verdugo completed +/- 4.00d sphere, 0.12 to 2.00d cyl, per lens Frames, purchases Ashlee Johnston Frame completed Est Patient Intermediate Nestor Guzman completed Opth - 14964 Primary Care Medical Case Kasia Mesjavier Time spent with completed Management patient: 15 Primary Care Medical Case Kasia Mesjavier Time spent with completed Management patient: 10 Primary Care Medical Case Kasia Meserve Time spent with completed Management patient: Dispensing Visit Shirley Encarnacion completed (UNLIVSTED OPHTHALMOLOGICAL SERVICE/PROCEDURE) Primary Care Medical Case Kasia Meserve Time spent with completed Management patient: 15 Primary Care Medical Case Kasia Meserve Time spent with completed Management patient: 30 Frames, purchases Shirley Encarnacion completed Spherocyl, SV, plano to Shirley Encarnacion completed +/- 4.00d sphere, 0.12 to 2.00d cyl, per lens Diagnostic evaluation Dc Guerrero completed with medical - 72320 Est Patient Intermediate Casa Riggs completed Opth - 70625 Est Patient Intermediate Nestor Guzman completed Opth - 23183 Primary Care Medical Case Kasia Meserve Time spent with completed Management patient: 15 Primary Care Medical Case Kasia Meserve Time spent with completed Management patient: 15 Primary Care Medical Case Kasia Meserve Time spent with completed Management patient: 15 Primary Care Medical Case Kasia Meserve Time spent with completed Management patient: 15 Primary Care Medical Case Kasia Meserve Time spent with completed Management patient: 10 Primary Care - Service Kasia Meserve Time spent with completed Planning Comprehensive patient: 30 Primary Care - Kasia Meserve Time spent with completed Assesment-Comprehensive patient: 30 [facility]CM-[facility] Primary Care Medical Case Kasia Meserve Time spent with completed Management patient: 105 Dispensing Visit Shirley Encarnacion completed (UNLIVSTED OPHTHALMOLOGICAL SERVICE/PROCEDURE) Frames, purchases Shirley Encarnacion completed Spherocyl, SV, plano to Shirley Encarnacion completed +/- 4.00d sphere, 0.12 to 2.00d cyl, per lens Est Patient Intermediate Casa Riggs completed Opth - 83412 New Patient Intermediate Nestor Guzman completed Opth - 04298 GOALS No Information Available HEALTH CONCERNS No Information Available
--- NOTE | 2019-11-01 17:35 | RAD REPORT ---
EXAM DESCRIPTION: CT - Stone Protocol - 11/01/2019 5:23 pm CLINICAL HISTORY: Abdominal pain. COMPARISON: April 2019 TECHNIQUE: Computed axial tomography of the abdomen pelvis was obtained without oral or IV contrast. Lack of IV and oral contrast limits evaluation of solid organs, bowel, and vessels. Coronal reformat stefany images were obtained and reviewed. All CT scans are performed using dose optimization technique as appropriate and may include automated exposure control or mA/KV adjustment according to patient size. FINDINGS: A renal calculus is not seen. An ureteral calculus is not noted. A bladder calculus is not present. The liver,, pancreas and adrenals appear grossly normal The spleen is mildly enlarged There is no evidence of diverticulitis. Mild stranding within the subcutaneous fat of the right flank IMPRESSION: Negative for a genitourinary calculus Mild splenomegaly Mild stranding within the subcutaneous fat of the right flank may indicate a mild cellulitis
--- NOTE | 2019-11-01 18:30 | ER ---
Nurse's Notes [facility] Name: Jaleel Olivas Age: 39 yrs Sex: Male : 1980 Arrival Date: 11/01/2019 Time: 16:41 Bed 18 Private MD: Diagnosis: right flank pain, cellulitis right flank Presentation: 11/01 16:58 Presenting complaint: Patient states: R side pain from abdomen to R back spine. Transition of care: patient was not received from another setting of care. Onset of symptoms was October 29, 2019. Risk Assessment: Do you want to hurt yourself or someone else? Patient reports no desire to harm self or others. Initial Sepsis Screen: Does the patient meet any 2 criteria? No. Patient's initial sepsis screen is negative. Does the patient have a suspected source of infection? No. Patient's initial sepsis screen is negative. Care prior to arrival: None. 16:58 Method Of Arrival: Ambulatory 16:58 Acuity: LARRY 3 Triage Assessment: 16:59 General: Appears in no apparent distress. uncomfortable, Behavior is cooperative, appropriate for age. Pain: Complains of pain in right flank, anterior aspect of right lateral abdomen, posterior aspect of right lateral abdomen, right upper quadrant and right lower quadrant Pain currently is 9 out of 10 on a pain scale. Neuro: No deficits noted. Respiratory: No deficits noted. Historical: - Allergies: 16:59 Codeine (Hives); 16:59 Tape; - Home Meds: 16:59 Metformin Oral [Active]; Complera Oral [Active]; lisinopril Oral [Active]; - PMHx: 16:59 Diabetes - NIDDM; HIV; Hypertension; - PSHx: 16:59 Appendectomy; - Immunization history:: Adult Immunizations up to date. - Social history:: Smoking status: Patient/guardian denies using tobacco, Patient/guardian denies using alcohol, street drugs. - Ebola Screening: : Patient negative for fever greater than or equal to 101.5 degrees Fahrenheit, and additional compatible Ebola Virus Disease symptoms Patient denies exposure to infectious person Patient denies travel to an Ebola-affected area in the 21 days before illness onset No symptoms or risks identified at this time. Screenin:59 Abuse screen: Denies threats or abuse. Denies injuries from another. Nutritional ch screening: No deficits noted. Tuberculosis screening: No symptoms or risk factors identified. Fall Risk None identified. Assessment: 17:59 Reassessment: Patient appears in no apparent distress at this time. Patient and/or ch family updated on plan of care and expected duration. Pain level reassessed. Patient is alert, oriented x 3, equal unlabored respirations, skin warm/dry/pink. 18:16 General: Appears in no apparent distress. comfortable, Behavior is cooperative, ae4 anxious. Pain: Complains of pain in anterior aspect of left lateral abdomen, posterior aspect of left lateral abdomen, right upper quadrant and right lower quadrant Pain currently is 6 out of 10 on a pain scale. Pain: Aggravated by repositioning, Patient states he has to lie on his back to be comfortable. Neuro: Level of Consciousness is awake, alert, obeys commands, Oriented to person, place, time, situation, Appropriate for age. Cardiovascular: Patient's skin is warm and dry. Respiratory: Airway is patent Respiratory effort is even, unlabored, Respiratory pattern is regular, symmetrical. GI: Abdomen is round non-distended, Abd is soft Abdomen is tender to palpation in right upper quadrant. : Denies burning with urination, urinary frequency. EENT: No signs and/or symptoms were reported regarding the EENT system. Derm: Skin is normal. Musculoskeletal: No signs and/or symptoms reported regarding the musculoskeletal system. Vital Signs: 16:59 BP 162 / 101; Pulse 84; Resp 16; Temp 98.8(O); Pulse Ox 100% on R/A; Weight 75.75 kg; Height 5 ft. 4 in. (162.56 cm); Pain 9/10; 18:05 BP 161 / 92; Pulse 80; Resp 17; Pulse Ox 98% on R/A; ae4 16:59 Body Mass Index 28.67 (75.75 kg, 162.56 cm) ED Course: 16:41 Patient arrived in ED. ag5 16:58 Triage completed. 16:59 Arm band placed on left wrist. Patient placed in waiting room. 17:17 Hernan Yadav [facility]-C [facility]. la1 17:17 Augie Boland MD is Attending Physician. la1 17:24 CT Stone Protocol In Process Unspecified. EDMS 17:51 Syd Connor, RN is Primary Nurse. ae4 17:59 No apparent distress. Resting quietly. ch 17:59 Patient has correct armband on for positive identification. Bed in low position. Call light in reach. 17:59 No provider procedures requiring assistance completed. 18:06 Augie Boland MD is Attending Physician. kdr 18:58 Patient did not have IV access during this emergency room visit. ae4 Administered Medications: 18:41 Drug: Clindamycin 300 mg Route: PO; ae4 19:00 Follow up: Response: Medication administered at discharge. ae4 18:41 Drug: Bactrim (160 mg-800 mg (DS) 1 tablet Route: PO; ae4 19:00 Follow up: Response: Medication administered at discharge. ae4 Outcome: 18:29 Discharge ordered by . kdr 18:58 Discharged to home ambulatory. ae4 18:58 Condition: stable 18:58 Discharge instructions given to patient, Instructed on discharge instructions, follow up and referral plans. Demonstrated understanding of instructions, Prescriptions given X 3. 19:00 Patient left the ED. ae4 Signatures: Dispatcher [employer] EDMS Camila Amaya, RN RN Augie Boland MD MD kdr Hernan Yadav, [employer]-C [employer] TE[employer]ER-Cla1 Amy Lanza ag5 Syd Connor, RN RN ae4
--- NOTE | 2019-11-01 18:30 | EDPHYS ---
Physician Documentation [facility] Name: Jaleel Olivas Age: 39 yrs Sex: Male : 1980 Arrival Date: 11/01/2019 Time: 16:41 Bed 18 Private MD: ED Physician Augie Boland HPI: 11/01 18:31 This 39 yrs old Male presents to ER via Ambulatory with complaints of Side kdr Pain. 18:31 The patient presents with Right inferior flank pain. Onset: The symptoms/episode kdr began/occurred gradually, 3 day(s) ago. The symptoms do not radiate. Associated signs and symptoms: none. The symptoms are described as achy, steady, vague. Modifying factors: The symptoms are alleviated by nothing, the symptoms are aggravated by movement, touching the area. Severity of pain: At its worst the pain was mild in the emergency department the pain is unchanged. The patient has not experienced similar symptoms in the past. The patient has not recently seen a physician. Historical: - Allergies: 16:59 Codeine (Hives); ch 16:59 Tape; ch - Home Meds: 16:59 Metformin Oral [Active]; Complera Oral [Active]; lisinopril Oral [Active]; ch - PMHx: 16:59 Diabetes - NIDDM; HIV; Hypertension; ch - PSHx: 16:59 Appendectomy; ch - Immunization history:: Adult Immunizations up to date. - Social history:: Smoking status: Patient/guardian denies using tobacco, Patient/guardian denies using alcohol, street drugs. - Ebola Screening: : Patient negative for fever greater than or equal to 101.5 degrees Fahrenheit, and additional compatible Ebola Virus Disease symptoms Patient denies exposure to infectious person Patient denies travel to an Ebola-affected area in the 21 days before illness onset No symptoms or risks identified at this time. ROS: 18:31 Constitutional: Negative for fever, chills, and weight loss, Eyes: Negative for injury, kdr pain, redness, and discharge, Neck: Negative for injury, pain, and swelling, Cardiovascular: Negative for chest pain, palpitations, and edema, Respiratory: Negative for shortness of breath, cough, wheezing, and pleuritic chest pain, Back: Negative for injury and pain, : Negative for injury, bleeding, discharge, and swelling, MS/Extremity: Negative for injury and deformity, Skin: Negative for injury, rash, and discoloration, Neuro: Negative for headache, weakness, numbness, tingling, and seizure activity. 18:31 Abdomen/GI: Positive for abdominal pain, of the anterior aspect of right lateral abdomen and posterior aspect of right lateral abdomen, Negative for diarrhea, constipation, abdominal cramps, abdominal distension, black/tarry stool, rectal pain, rectal bleeding, bowel incontinence. Exam: 18:31 Constitutional: This is a well developed, well nourished patient who is awake, alert, kdr and in no acute distress. Head/Face: Normocephalic, atraumatic. Eyes: Pupils equal round and reactive to light, extra-ocular motions intact. Lids and lashes normal. Conjunctiva and sclera are non-icteric and not injected. Cornea within normal limits. Periorbital areas with no swelling, redness, or edema. Neck: Trachea midline, no thyromegaly or masses palpated, and no cervical lymphadenopathy. Supple, full range of motion without nuchal rigidity, or vertebral point tenderness. No Meningismus. Chest/axilla: Normal chest wall appearance and motion. Nontender with no deformity. No lesions are appreciated. Cardiovascular: Regular rate and rhythm with a normal S1 and S2. No gallops, murmurs, or rubs. Normal PMI, no JVD. No pulse deficits. Respiratory: Lungs have equal breath sounds bilaterally, clear to auscultation and percussion. No rales, rhonchi or wheezes noted. No increased work of breathing, no retractions or nasal flaring. Back: No spinal tenderness. No costovertebral tenderness. Full range of motion. Skin: Warm, dry with normal turgor. Normal color with no rashes, no lesions, and no evidence of cellulitis. MS/ Extremity: Pulses equal, no cyanosis. Neurovascular intact. Full, normal range of motion. Neuro: Awake and alert, GCS 15, oriented to person, place, time, and situation. Cranial nerves II-XII grossly intact. Motor strength 5/5 in all extremities. Sensory grossly intact. Cerebellar exam normal. Normal gait. Psych: Awake, alert, with orientation to person, place and time. Behavior, mood, and affect are within normal limits. 18:31 Abdomen/GI: Inspection: abdomen appears normal, Bowel sounds: normal, Palpation: soft, mild abdominal tenderness, in the anterior aspect of right lateral abdomen and posterior aspect of right lateral abdomen. Vital Signs: 16:59 BP 162 / 101; Pulse 84; Resp 16; Temp 98.8(O); Pulse Ox 100% on R/A; Weight 75.75 kg; ch Height 5 ft. 4 in. (162.56 cm); Pain 9/10; 18:05 BP 161 / 92; Pulse 80; Resp 17; Pulse Ox 98% on R/A; ae4 16:59 Body Mass Index 28.67 (75.75 kg, 162.56 cm) ch MDM: 18:29 Patient medically screened. kdr 18:31 Data reviewed: vital signs, nurses notes, lab test result(s), radiologic studies. kdr Counseling: I had a detailed discussion with the patient and/or guardian regarding: the historical points, exam findings, and any diagnostic results supporting the discharge/admit diagnosis, lab results, radiology results, the need for outpatient follow up. 11/01 18:13 Order name: Urine Dipstick--Ancillary (enter results) hb 11/01 17:12 Order name: CT Stone Protocol; Complete Time: 18:17 snw Administered Medications: 18:41 Drug: Clindamycin 300 mg Route: PO; ae4 19:00 Follow up: Response: Medication administered at discharge. ae4 18:41 Drug: Bactrim (160 mg-800 mg (DS) 1 tablet Route: PO; ae4 19:00 Follow up: Response: Medication administered at discharge. ae4 Disposition: 11/01/19 18:29 Discharged to Home. Impression: right flank pain, cellulitis right flank. - Condition is Stable. - Discharge Instructions: Cellulitis, Adult, Hjrc-ob-Rlut, Flank Pain, Aonl-na-Hlje. - Prescriptions for Clindamycin HCl 300 mg Oral Capsule - take 1 capsule by ORAL route every 6 hours for 10 days; 40 capsule. Tramadol 50 mg Oral Tablet - take 1 tablet by ORAL route every 8 hours as needed; 12 tablet. Bactrim DS 800- 160 mg Oral Tablet - take 1 tablet by ORAL route every 12 hours for 10 days; 20 tablet. - Medication Reconciliation Form, Thank You Letter, Antibiotic Education, Prescription Opioid Use form. - Follow up: Private Physician; When: 2 - 3 days; Reason: If symptoms return, Further diagnostic work-up, Recheck today's complaints, Continuance of care, Re-evaluation by your physician. - Problem is new. - Symptoms have improved. Signatures: Dispatcher [employer] EDCamila Felix, RN RN Augie Boland MD MD kdr Syd Connor RN RN ae4 Corrections: (The following items were deleted from the chart) 19:00 18:29 11/01/2019 18:29 Discharged to Home. Impression: right flank pain, cellulitis ae4 right flank. Condition is Stable. Forms are Medication Reconciliation Form, Thank You Letter, Antibiotic Education, Prescription Opioid Use. Follow up: Private Physician; When: 2 - 3 days; Reason: If symptoms return, Further diagnostic work-up, Recheck today's complaints, Continuance of care, Re-evaluation by your physician. Problem is new. Symptoms have improved. kdr
[2019-11-01] MEDS ORDERED: SMZ./TMP. 800/160 MG TABLET ONE (18:40)
[2019-11-01 18:42] LABS: Urine Blood NEGATIVE (NEG); Urine Glucose 2+ (NEG); Urine Protein TRACE (NEG); Urine Specific Gravity 1.025 (1.005-1.030); Urine pH 5.5 (5.0-7.0)
[2019-11-01 19:09] VITALS: TEMP 98.8
[2019-11-01 19:10] VITALS: BP 161/92; O2SAT 98
== END 2019-11-01 19:00 | disposition home or self-care (01) ==
LOC: ER 16:40
DX: L03.311 Cellulitis of abdominal wall (principal); I10 Essential (primary) hypertension; E11.9 Type 2 diabetes mellitus without complications; Z21 Asymptomatic human immunodeficiency virus [HIV] infection status; Z88.5 Allergy status to narcotic agent; Z91.048 Other nonmedicinal substance allergy status
CPT/HCPCS: 74176; 76377; 81003; 99283

== ENCOUNTER 2019-12-23 20:14 | Emergency (ER) | payer OTHER ==
--- OUTSIDE RECORDS SUMMARY | 2019-12-23 20:16 | XMS REPORT ---
:1980 Author [facility] Address [address] Daniel [address] [place] [id number] Care Team Providers Name Role Phone Unavailable Unavailable Unavailable Problems This patient has no known problems. Allergies, Adverse Reactions, Alerts This patient has no known allergies or adverse reactions. Medications This patient has no known medications.
--- OUTSIDE RECORDS SUMMARY | 2019-12-23 20:17 | XMS REPORT ---
:1980 Author Organization [facility] Address [address] [place] [address] Phone Allergies, Adverse Reactions, Alerts Allergy Name [...] Name Instruction ANTABUSE 250 1 By DISULFIRAM [id number] Active Zishan Active MG ORAL Mouth Samiuddin TABLET Every MD Day METFORMIN HCL 1 by METFORMIN HCL 08326449508 Active Rupert Active 500 MG ORAL mouth Karie MASSEY TABLET twice a day NICOTINE NICOTINE 20625309080 Active Sneha Active -14-7 [place] MG/24HR TRANSDERMAL KIT LEXAPRO 10 MG 1 By ESCITALOPRAM 18403015197 Active Zishan Active ORAL TABLET Mouth OXALATE Samiuddin Every MD Day LISINOPRIL 20 1 by LISINOPRIL 67186430709 Active Rupert Active MG ORAL mouth Kaire MASSEY TABLET every day COMPLERA 1 by EMTRICITAB-RIL 71968870651 Active Rupert Active 200-25-300 MG mouth PIVIR-TENOFOVI Karie MASSEY ORAL TABLET daily R with food RISPERDAL 2 1 By RISPERDAL 2 [id number] RISPERIDONE Inactive MG ORAL Mouth at MG ORAL TABLET bedtime TABLET MIRTAZAPINE MIRTAZAPINE MIRTAZAPINE Inactive TABLET TABLET TABS RISPERDAL 1 By RISPERIDONE [id number] No Zishan Active 2 MG ORAL Mouth at Longer Samiudbrendan TABLET bedtime Active MIRTAZAPIN MIRTAZAPINE 42534952420 No Zishan Active E TABLET TABS Longer [...] administered PEDIATRIC PNEUMOCOCCAL given pneumococcal conjugate VACCINE ([id number]) #1 vaccine, 13 valent Vital Signs Date [...] PC ... - Chemistry absolute CD8 395 928-018 0203/06/21 Absolute Neutrophils 6.9 X10E3/UL 10*3/uL 1.4-7.0 Lab [...] - Chemistry Absolute Neutrophil count 6250 {Cells}/uL [id number] Lab Report: Lipid Panel - Chemistry triglyceride, [...] Ofc Vst, Est Level Rupert Tiwari MD CPT-91026 [facility] 16:06:34 CDT IV Est Patient Exp Dc Guerrero MD [facility]-81785 [facility] 10:34:43 CATTERY OPERATOR Problem - 96510 [facility] Ofc Vst, Est Level Rupert Tiwari MD CPT-28279 [facility] 10:28:43 CATTERY OPERATOR IV Est Patient Exp Dc Guerrero MD [facility]-62624 [facility] 14:35:11 CATTERY OPERATOR Problem - 71552 [facility] Ofc Vst, Est Level Rupert Tiwari MD CPT-68657 [facility] 10:30:49 CATTERY OPERATOR IV Ofc Vst, Est Level Rupert Tiwari MD CPT-34778 [facility] 13:01:29 CDT IV Ofc Vst, Est Level Rupert Tiwari MD [facility]-86550 [facility] 11:52:13 CDT IV Est Patient Exp Dc Guerrero MD [facility]-77133 [facility] 17:52:05 CATTERY OPERATOR Problem - 10720 [facility] Ofc Vst, Est Level Rupert Tiwari MD CPT-49047 [facility] 09:48:56 CATTERY OPERATOR IV Est Patient Exp Dc Guerrero MD [facility]-40342 [facility] 12:48:05 CDT Problem - 60469 [facility] Ofc Vst, New Level Rupert Tiwari MD CPT-20642 [facility] 10:53:43 CDT IV Procedures Code Procedure Name Date Entry Date Standard Description CPT-05104 Est Patient Intermediate Opth - 84753 11:18:32 CATTERY OPERATOR CPT-33445 Pneumovax Vaccine PPSV23 12:57:50 CDT CPT-04806 INFLUENZA VACCINE QUADRIVALENT 3 YRS PLUS IM 09:45:57 CATTERY OPERATOR CPT-14703 Dispensing Visit (UNLIVSTED OPHTHALMOLOGICAL 09:54:51 CDT SERVICE/PROCEDURE) CPT-13400 Diagnostic evaluation with medical - 41008 13:55:50 CDT CPT-92782 Est Patient Intermediate Opt - 67122 09:56:48 CDT CPT-69691 Est Patient Intermediate Opth - 43258 09:13:29 CDT CPT-49276 Prevnar (PCV13) IM 10:33:40 CDT CPT-63154 Dispensing Visit (UNLIVSTED OPHTHALMOLOGICAL 13:23:10 CATTERY OPERATOR SERVICE/PROCEDURE) CPT-98650 Est Patient Intermediate Opt - 11436 16:00:58 CATTERY OPERATOR CPT-24388 New Patient Intermediate Opth - 20269 15:26:36 CATTERY OPERATOR
--- OUTSIDE RECORDS SUMMARY | 2019-12-23 20:21 | XMS REPORT ---
:1980 Author Name Admin, [place] Address Unavailable Unavailable , PROBLEMS Condition Status Date Provider Notes abscess, perianal active Rupert Tiwari Diabetes mellitus, type II active Rupert Tiwari Hyperlipidemia active Rupert Tiwari Preventive health care [...] Date Type Provider Location Encounter Diagnosis Ambulatory Rupert Emery [facility] Adult UNK 8 - Encounter Nempatrice Elva Medicine Saulo Dhillon 8 Ambulatory [place] Extra Hours Legacy UNK 8 - Encounter [facility] 8 Ambulatory [place] Extra Hours Legacy UNK 8 - Encounter [facility] 8 Ambulatory Rupert Levinerose UNK 2 - Encounter [facility] [place] 2 MedAdherence Ambulatory Rupert Emery [facility] Adult UNK 9 - Encounter Karie Nique Medicine White 9 MedAdherence, Ambulatory Araceli Cotterrez [facility] Adult UNK 5 - Encounter Medicine 5 Ambulatory Rpuert Emery [facility] Adult UNK 2 - Encounter Nem[place] Jaci Medicine David 2 MedAdherence Ambulatory [facility] UNK 8 - Encounter Nemecek [facility] 8 MedAdherence, Ambulatory [place] Admin YES Prep UNK 1 - Encounter [facility] 1 Health Ambulatory Rupert Emery [facility] Adult UNK 6 - Encounter Nemraymundok Naomie Medicine S [place] 6 MedAdherence Ambulatory Araceli Cotterrez [facility] Adult UNK 2 - Encounter Medicine 2 Ambulatory Rupert Emery [facility] Adult UNK 5 - Encounter Nemecek [facility] Medicine 5 Ambulatory Rupert Emery [facility] Adult UNK 1 - Encounter Nemecek [facility] Medicine 1 Ambulatory Caterina Macedo [facility] Adult UNK 4 - Encounter Derickjesse Wilder Medicine 4 Ambulatory Rupert Emery [facility] Adult UNK 1 - Encounter Nemecek [facility] Medicine 1 Ambulatory Rupert Emery [facility] Adult UNK 1 - Encounter [place] Medicine 1 Ambulatory Rupert Emery [facility] Adult abscess, perianal 1 - Encounter Nemecek Derick Medicine Meño 1 Ambulatory Caterina Macedo [place] UNK 0 - Encounter Agustina Simpson 0 Ambulatory Rupert Emery [facility] Adult UNK 0 - Encounter [place] Medicine 0 Ambulatory Rupert Emery [facility] Adult UNK 0 - Encounter Nemecek [facility] Medicine 0 Ambulatory Isabel Gomez UNK 8 - Encounter [facility] 8 Ambulatory Marni Caruso [facility] Adult UNK 4 - Encounter MedAdherence, Medicine 4 Ambulatory K[facility] Public UNK 5 - [facility] UNK 2 - Encounter [facility] 2 Ambulatory [facility] UNK 8 [facility] Encounter [facility] Lizy Balbzia Behavioral 8 Health Ambulatory Caterina Macedo [facility] Adult UNK 5 - Encounter Medicine 5 Ambulatory Rupert Emery [facility] Adult UNK 5 - Encounter Nem[place] Medicine 5 Ambulatory Rupert Emery [facility] Adult UNK 5 - Encounter Nemecek Caterina Medicine [place] 5 Ambulatory Rupert Emery [facility] Adult UNK 0 - Encounter Nemecek [facility] Medicine 0 Ambulatory Rupert Emery [facility] Adult UNK 0 - Encounter Nemecek [facility] Medicine 0 Ambulatory [facility] UNK 0 - Encounter [facility] Lizy Deionzia Behavioral 0 Health Ambulatory Rupert Emery [facility] Adult UNK 0 - Encounter Nemecek Tigre Medicine [place] 0 Ambulatory Rupert Emery [facility] Adult UNK 3 - Encounter Nem[place] Marni Medicine Zuly 3 MedAdherence, Ambulatory Vanessa Loomis Legacy UNK [...] Nemecek Marni Sr Medicine 9 Ambulatory Rupert Eganraymundootilia Emery [facility] Adult UNK 7 - Encounter Nemecek [facility] Medicine Marni Sr 7 Ambulatory Rupert Emery [facility] Adult UNK 2 - Encounter [place] Marni Sr Medicine 2 Ambulatory Rupert Eganraymundootilia Emery LM Adult UNK 1 - Encounter Nemecek [facility] Medicine Marni Sr 1 Ambulatory Elva Kevin Roqueacy UNK 8 - [facility]counter [facility] 8 Ambulatory Denise Meño [facility] Adult UNK 5 - Encounter Medicine 5 Ambulatory Rupert Emery LM Adult UNK 5 - Encounter Nemece[place] Medicine 5 Ambulatory Rupert Emery LM Adult UNK 5 - Encounter Nemece[place] Medicine 5 Ambulatory Rupert Emery [facility] Adult Myopia - OURegular 5 - Encounter Nemecek Caterina Medicine astigmatism, bilateral [place] 5 Ambulatory Ashlee Lucina C Vision UNK 5 - Encounter 5 Ambulatory Rupert Emery LM Adult UNK 9 - Encounter Nemecek [facility] Medicine 9 Ambulatory Ashlee Verdugo [facility] Vision UNK 9 - Encounter 9 Ambulatory Nestor Guzman [facility] Vision UNK 9 - Encounter 9 Ambulatory Nestor Guzman [facility] Vision UNK 9 - Encounter 9 Ambulatory Nestor Guzman C Vision UNK 9 - Encounter 9 Ambulatory Nestor Rosado [facility] Vision Myopia - OURegular 9 - Encounter Verdugo astigmatism, bilateral 9 Ambulatory Rupert Emery [facility] Adult UNK 7 - Encounter Nem[place] Marni Sr Medicine 7 Ambulatory Silvia Mo [facility] Adult UNK 7 - Encounter [facility] Marni Medicine Sr 7 Ambulatory Rupert Emery [facility] Adult UNK 6 - Encounter [place] Marni Sr Medicine 6 Ambulatory Silvia Mo [facility] Adult UNK 1 - Encounter LinkLogic Marni Medicine Sr 1 Ambulatory Leticia Jackson [facility] UNK 0 - Encounter Practice 0 Ambulatory Valerie Moore [facility] UNK 0 - Encounter [place] 0 Pediatrics Ambulatory Rupert Emery [facility] Adult UNK 6 - Encounter [place] Marni Sr Medicine 6 Ambulatory Rupert Emery [facility] Adult UNK 4 - Encounter Nemecek Medicine 4 Ambulatory Rupert Emery [facility] Adult Hyperlipidemia 4 - Encounter Nemecek Caterina Medicine [place] 4 Ambulatory Rupert Emery [facility] Adult UNK 1 - Encounter Nemecek [facility] Medicine 1 Ambulatory Denise Wilder [facility] Adult UNK 1 - Encounter Medicine [...] - Encounter [facility] Health 6 Ambulatory Az sIlas [facility] Adult UNK 1 - Encounter Medicine 1 Ambulatory Rupert Emery [facility] Adult UNK 5 - Encounter Nemecek [facility] Medicine 5 Ambulatory Rupert Emery [facility] Adult UNK 5 - Encounter Nemecek [facility] Medicine 5 Ambulatory Saloni Gil [facility] Adult UNK 4 - Encounter Medicine 4 Ambulatory Robby Masters [facility] Behavioral UNK 2 - Encounter Health 2 Ambulatory Robby Masters [facility] Behavioral UNK 2 - Encounter Health 2 Ambulatory Rupert Emery [facility] Adult UNK 1 - Encounter Nemecek [facility] Medicine 1 Ambulatory Rupert Emery [facility] Adult UNK 1 - Encounter Nemecek [facility] Medicine 1 Ambulatory Sneha Dan [facility] Adult UNK 3 - Encounter Medicine 3 Ambulatory Kasia Betancur [facility] Social UNK 1 - Encounter [facility] Services 1 Ambulatory Kasia Betancur [facility] Social UNK 1 - Encounter [facility] Services 1 Ambulatory Casa Riggs [facility] Vision UNK 5 - Encounter Casa Zhang Riggs [facility] 5 [facility] [place] UNK 5 - Encounter [facility] 5 Health [facility] [place] UNK 5 - Encounter [facility] 5 Health Ambulatory Zishan Samiuddin [facility] Behavioral UNK 2 - Encounter Zishan Samiuddin Health 2 Ambulatory Zishan Samiuddin [facility] Behavioral UNK 2 - Encounter Zishan Samiuddin Health 2 Ambulatory Zishan Samiuddin [facility] Behavioral UNK 2 - Encounter Zishan Samiuddin Health [facility] 2 Ambulatory Zishan Samiuddin [facility] Behavioral UNK 1 - Encounter Zishan Samiuddin Health [facility] 1 Ambulatory Rupret Emery [facility] Adult UNK 6 - Encounter Nemecek [facility] Medicine 6 Ambulatory Rupert Emery [facility] Adult UNK 8 - Encounter Nemecek [facility] Medicine 8 Ambulatory Rupert Emery [facility] Adult UNK 6 - Encounter Nemecek [facility] Medicine 6 Ambulatory Rupert Emery [facility] Adult UNK 6 - Encounter Nemecek Medicine 6 Ambulatory Caterina Macedo [facility] Adult UNK 6 - Encounter Medicine 6 Ambulatory Rupert Emery [facility] Adult UNK 6 - Encounter Nemece[place] Medicine 6 Ambulatory Rupert Emery [facility] Adult Myopia - OURegular 6 - Encounter Nemecek Caterina Medicine astigmatism, [facility] bilateralPreventive [facility] 6 careHyperlipidemia Ambulatory Zishan Samiuddin [facility] Behavioral UNK 5 - Encounter Zishan Samiuddin Health 5 Ambulatory Zishan Samiuddin [facility] Behavioral UNK 4 - Encounter Zishan Samiuddin Health [facility] 4 Ambulatory Sneha Dan [facility] Adult UNK 9 - Encounter Medicine 9 Ambulatory Zishan Samiuddin [facility] Behavioral UNK 8 - Encounter Zishan Samiuddin Health 8 Ambulatory Zishan Samiuddin [facility] Behavioral UNK 8 - Encounter Zishan Samiuddin Health [facility] 8 Ambulatory Rupert Emery LM Adult UNK 0 - Encounter Nemecek [facility] Medicine 0 Ambulatory Rupert Emery [facility] Adult UNK 5 - Encounter Nemecek [facility] Medicine 5 Ambulatory [facility] ANXIETY DISORDER, UNSPECIFIED 5 - Encounter [facility] 5 Health Ambulatory Shirley Encarnacion [facility] Vision UNK 5 - Encounter 5 Ambulatory Rupert Emery [facility] UNK 6 - Encounter Karie Vega [facility] 6 [facility] Ambulatory Zishan Samiuddin [facility] Behavioral UNK 6 - Encounter Zishan Samiuddin Health 6 Ambulatory Zishan Samiuddin [facility] Behavioral UNK 6 - Encounter Zishan Samiuddin Health [facility] 6 Ambulatory Kasia Meserve [facility] Social UNK 0 - Encounter Services 0 Ambulatory Kasia Meserve [facility] Social UNK 9 - Encounter Services 9 Ambulatory Caterina Macedo Legacy UNK 6 - Encounter Julio Govea [facility] 6 Contact Center Ambulatory Shirley Encarnacion [facility] Vision UNK 4 - Encounter 4 Ambulatory [facility] Hallucinations 4 - Encounter [facility] Carlos Alberto [place] [address] Health Ambulatory Casa Riggs [facility] Vision UNK 4 - Encounter Casa Riggs 4 Ambulatory Casa Riggs [facility] Vision UNK 4 - Encounter Casa Riggs 4 Ambulatory Casa Riggs [facility] Vision Screening examination for 4 - Encounter Casa Riggs other specified viral Nitza Alex diseases 4 Ambulatory Nestor Dicks [facility] Vision UNK 4 - Encounter 4 Ambulatory Nestor Darios [facility] Vision UNK 4 - Encounter 4 Ambulatory Nestor Darios [facility] Vision UNK 4 - Encounter 4 Ambulatory Nestor Darios C Vision Myopia - OURegular 4 - Encounter Shirley Encarnacion astigmatism, bilateral 4 Ambulatory Wan Barnhart [facility] Adult UNK 2 - Encounter Jerome Medicine [...] - Encounter Nemecek Medicine 8 Ambulatory Kasia Betancur [facility] Social UNK 7 - Encounter Services 7 Ambulatory Kasia Betancur [facility] Social UNK 1 - Encounter Amanda Fuentes Services Yolie Santiago 1 Ambulatory Rupert Emery [facility] Adult UNK 1 - Encounter Nemecek Medicine 1 Ambulatory Rupert Eganpatrice Rupert [facility] Adult UNK 1 - Encounter Nemecek Medicine 1 Ambulatory Rupert Emery [facility] Adult ASTIGMATISMMYOPIASPECIAL 1 - Encounter Nemecek Amanda Medicine SCREENING EXAMINATION OTH Fuentes Caterina SPEC VIRAL DZPTSDHEPATITIS B, 1 [place] Yolie CHRONIC Santiago Ambulatory Ameena Siomara [facility] Adult UNK 1 - Encounter Medicine 1 Ambulatory Ameena Siomara [facility] Adult UNK 1 - Encounter Medicine 1 Ambulatory Ameena Siomara [facility] Adult UNK 1 - Encounter Medicine 1 Ambulatory Thida Fontanez [facility] Behavioral UNK 0 - Encounter Health 0 Ambulatory Kaleigh Finney [facility] Adult UNK 3 - Encounter Medicine 3 Ambulatory Kiel Billy [facility] UNK 0 - Encounter [facility] 0 Ambulatory Rupert Emery [facility] UNK 0 - Encounter Nemecek [facility] 0 Ambulatory Jamal [facility] UNK 0 - Encounter [facility] 0 Ambulatory Nestor Guzman [facility] Vision UNK 0 - Encounter [facility] 0 Ambulatory Shirley Encarnacion [facility] Vision UNK 0 - Encounter 0 Ambulatory Shirley Encarnacion [facility] Vision UNK 1 - Encounter 1 Ambulatory Casa Riggs [facility] Vision SPECIAL SCREENING EXAMINATION 1 - Encounter Casa Riggs OTH SPEC VIRAL DZ Nitza Alex 1 Ambulatory Nestor Guzman [facility] Vision ASTIGMATISMMYOPIA 1 - Encounter Shirley Encarnacion 1 Ambulatory Alejandroregis Saenz [facility] Adult UNK 1 - Encounter Medicine 1 [...] serum " eGFR if 123 [facility] >59 Malagasy mL/min/((173/1 00).m2) " Estimated 106 [facility]ic >59 [...] cells 573 /UL [facility] [phone] (CD4) count LDL cholesterol, 62 mg/dL [facility] 0-99 04/26 serum " very low density 66 mg/dL [facility] 5-40 High lipoproteins " HDL cholesterol, 27 mg/dL [facility] >39 Low serum " triglyceride, 331 mg/dL [facility] 0-149 High serum, fasting " cholesterol, serum 155 mg/dL [facility] [phone]/1 rapid plasma REACTIVE [facility] NON-REACTIV Abnormal [facility] 12/26 reagin antibody, E Diagnostic serum [facility] [address] [place] [phone] [address] Elijah gaspar;RGA [facility] Diagnostic [facility] [address] [place] [phone] Anne Hussein " Treponema pallidum REACTIVE [facility] NON-REACTIV Abnormal [facility] Ab, serum E Diagnostic [facility] [address] [place] [phone] Dr[address] Elijah gaspar;RGA [facility] [address] [place] [phone] Anne Hussein " basophils as 0.4 % [facility] Normal [facility] percent of blood Diagnostic leukocytes [facility] [address] [place] [phone] Dr[address] Elijah gasapr;RGA [facility] [address] [place] [phone] Anne Hussein " eosinophils as 1.2 % [facility] Normal [facility] percent of blood Diagnostic leukocytes [facility] [address] [place] [phone] Dr[address] Elijah gaspar;RGA [facility] [address] [place] [phone] Anne Hussein " monocytes as 4.2 % [facility] Normal [facility] percent of blood Diagnostic leukocytes [facility]-[place] [facility] [address] [facility] [place] [address] Dr. Elijah gaspar;RGA [facility] [address] [facility] [address] Anne Hussein " lymphocytes as 18.9 % [facility] Normal [facility] percent of blood Diagnostic leukocytes [facility] [address] [place] [address] [place] [address] [address] Elijah gaspar;RGA [facility] [address] [facility] [address] Anne Hussein " neutrophils as 75.3 % [facility] Normal [facility] percent of blood Diagnostic leukocytes [facility] [address] [place] [phone] Dr[address] Elijah gaspar;RGA [facility] [address] [place] [phone] Anne Hussein " basophil count, 33 cells/uL [facility] 0-200 Normal [facility] absolute Diagnostic [facility] [address] [place] [address] [place] [address] [address] Elijah gaspar;RGA [facility] [address] [place] [phone] Anne Hussein " Absolute 100 cells/mcL [facility] 15-500 Normal [facility] Eosinophil count Diagnostic [facility] [address] [facility] [place] [address] Dr[address] Elijah gaspar;RGA [facility] [address] [place] [address] Anne Hussein " Absolute Monocyte 349 cells/mcL [facility] 200-950 Normal [facility] count Diagnostic [facility] [address] [facility] [place] [place] [address] Dr[address] Elijah gapsar;RGA [facility] [address] [facility] [address] Anne Hussein " Absolute 6250 cells/mcL [facility] 5424-4696 Normal [facility] Neutrophil count Diagnostic [facility] [address] [place] [address] [place] [phone] [address] Elijah gaspar;RGA [facility] [address] [facility] [address] Anne Hussein " mean platelet 11.2 fL [facility] 7.5-12.5 Normal [facility] volume Diagnostic [facility] [address] [place] [phone] Dr[address] Elijah gaspar;RGA [facility] [address] [place] [phone] Anne Hussein " platelet count 230 [facility] 140-400 Normal [facility] THOUSAND/UL Diagnostic [facility] [address] [place] [address] Dr[address] Elijah gaspar;RGA [facility] [address] [place] [phone] Anne Hussein " red blood cell 13.1 % [facility] 11.0-15.0 Normal [facility] distribution width Diagnostic [facility] [address] [place] [phone] Dr[address] Elijah gaspar;RGA [facility] [address] [place] [address] Anne Hussein " mean corpuscular 35.4 G/DL [facility] 32.0-36.0 Normal [facility] hemoglobin Diagnostic concentration, RBC -[place] [facility] [address] [place] [address] Dr[address] Elijah gaspar;RGA [facility] [address] [place] [address] Anne Hussein" mean corpuscular 31.2 pg [facility]ic 27.0-33.0 Normal [facility] hemoglobin, RBC Diagnostic [facility] [address] [place] [address] Dr[address] Elijah gaspar;RGA [facility] [address] [place] [address] Anne Hussein " mean corpuscular 88.1 fL [facility] 80.0-100.0 Normal [facility] volume, RBC Diagnostic [facility] [address] [place] [address] [place] [address] Dr[address] Elijah gaspar;RGA [facility] [address] [facility] [address] Anne Hussein " hematocrit, blood 45.7 % [facility] 38.5-50.0 Normal [facility] Diagnostic [facility] [address] [place] [phone] Dr[address] Elijah gaspar;RGA [facility] [address] [place] [address] Anne Hussein" hemoglobin, blood 16.2 g/dL [facility] 13.2-17.1 Normal [facility] Diagnostic [facility] [address] [place] [phone] Dr[address] Elijah gaspar;RGA [facility] [address] [place] [address] Anne Hussein" erythrocyte (RBC) 5.19 [facility]ic 4.20-5.80 Normal [facility] count MILLION/UL Diagnostic [facility] [address] [place] [address] Dr[address] Elijah gaspar;RGA [facility] [address] [place] [phone] Anne Hussein" leukocyte count, 8.3 [facility]Logic 3.8-10.8 Normal [facility] blood THOUSAND/UL Diagnostic [facility] [address] [place] [address] Dr[address] Elijah gaspar;RGA [facility] [address] [place] [address] Anne Hussein" lymphocytes, 1569 CELLS/UL [facility]ic 850-3900 Normal [facility] absolute Diagnostic [facility] [address] [place] [address] Dr[address] Elijah gaspar;RGA [facility] [address] [place] [address] Anne Hussein" CD4/CD8 ratio 1.52 [facility] 0.86-5.00 Normal [facility] Diagnostic [facility] [address] [place] [address] Dr[address] Elijah gaspar;RGA [facility] [address] [place] [address] Anne Hussein" absolute CD8 436 [facility]Logic 180-1170 Normal [facility] Diagnostic [facility] [address] [place] [address] Dr[address] Elijah gaspar;RGA [facility] [address] [place] [address] Anne Hussein" T-suppressor cells 29 % [facility] 12-42 Normal [facility] (CD8) as percent Diagnostic of blood [facility] Lab [address] [place] [address] [address] Elijah gaspar;RGA [facility] [address] [place] [address] Anne Hussein " T-helper cells 663 CELLS/UL [facility] 490-1740 Normal [facility] (CD4) count Diagnostic [facility] [address] [place] [address] Dr[address] Elijah gaspar;RGA [facility] [address] [place] [address] Anne Hussein " T-helper cells 44 % [facility]ic 30-61 Normal [facility] (CD4) as percent Diagnostic of blood [facility] lymphocytes Lab [address] [place] [phone] [address] Elijah gaspar;RGA [facility] [address] [place] [address] Anne Hussein " alanine 79 1/L [facility] 9-46 High [facility] aminotransferase Diagnostic (SGPT), serum [facility] [address] [place] [address] Dr[address] Elijah gaspar;RGA [facility] [address] [place] [address] Anne Hussein" aspartate 51 1/L [facility] 10-40 High [facility] aminotransferase Diagnostic (SGOT), [facility] [address] [place] [address] Dr[address] Elijah gaspar;RGA [facility] [address] [place] [address] Anne Hussein" alkaline 87 1/L [facility] 40-115 Normal [facility] phosphatase, serum Diagnostic [facility] [address] [place] [address] Dr[address] Elijah gaspar;RGA [facility] [address] [place] [address] Anne Hussein " bilirubin, serum, 0.7 mg/dL [facility] 0.2-1.2 Normal [facility] total Diagnostic [facility] [address] [place] [address] Dr[address] Elijah gaspar;RGA [facility] [address] [place] [address] Anne Hussein" albumin/globulin 1.7 (calc) [facility]ic 1.0-2.5 Normal [facility] ratio, serum Diagnostic [facility] [address] [place] [address] Dr[address] Elijah gaspar;RGA [facility] [address] [place] [address] Anne Hussein" globulins, serum, 2.6 G/DL [facility] 1.9-3.7 Normal [facility] total (CALC) Diagnostic [facility] [address] [place] [phone] Dr[address] Elijah gaspar;RGA [facility] [address] [place] [address] Anne Hussein" albumin, serum 4.4 g/dL [facility] 3.6-5.1 Normal [facility] Diagnostic [facility] [address] [place] [address] Dr[address] Elijah gaspar;RGA [facility] [address] [place] [address] Anne Hussein" protein, total, 7.0 g/dL [facility] 6.1-8.1 Normal [facility] serum Diagnostic [facility] [address] [place] [address] Dr[address] Elijah gaspar;RGA [facility] [address] [place] [address] Anne Hussein" calcium, serum 9.1 mg/dL [facility] 8.6-10.3 Normal [facility] Diagnostic [facility] [address] [place] [address] Dr[address] Elijah gaspar;RGA [facility] [address] [place] [address] Anne Hussein" carbon dioxide, 24 mmol/L [facility] 20-32 Normal [facility] venous blood Diagnostic [facility] [address] [place] [phone] [address] Elijah gaspar;RGA [facility] [facility] [address] [place] [phone] Anne Hussein" chloride, serum 105 mmol/L LinkLogic 98-110 Normal [facility] [address] [place] [phone] Dr[address] Elijah gaspar;RGA [facility] [address] [place] [phone] Anne Hussein" potassium, serum 3.9 mmol/L LinkLogic 3.5-5.3 Normal [facility] [address] [place] [phone] Dr. Elijah gaspar;RGA [facility] [address] [place] [phone] Anne Hussein" sodium, serum 139 mmol/L LinkLogic 135-146 Normal [facility] [address] [place] [phone] Dr[address] Elijah gaspar;RGA [facility] [address] [place] [phone] Anne Hussein " urea NOT APPLICABLE LinkLogic 6-22 [facility] nitrogen/creatinin (calc) Diagnostic e ratio, serum [facility] [address] [place] [phone] [address] Elijah gaspar;A [facility] [address] [place] [phone] Anne Hussein " eGFR if 114 LinkLogic > OR=60 Normal IG [facility] Malagasy mL/min/((173/1 Diagnostic 00).m2) [facility] [facility] [address] [place] [phone] Dr[address] Elijah gaspar;A [facility] [address] [place] [phone] Anne Hussein " Estimated 98 LinkLogic > OR=60 Normal [facility] Glomerular mL/min/((173/1 Diagnostic Filtration Rate 00).m2) [facility] (calc) Lab [address] [place] [phone] Dr[address] Elijah gaspar;RGA [facility] [address] [facility] [phone] Anne Hussein" creatinine, serum 0.96 mg/dL LinkLogic 0.60-1.35 Normal IG [facility] [address] [place] [address] [place] [phone] Dr[address] Elijah gaspar;RGA [facility] [address] [place] [phone] Anne Hussein" urea nitrogen, 10 mg/dL LinkLogic 7-25 Normal IG [facility] blood Diagnostic [facility] [address] [place], [place] [address] [place] [phone] Dr[address] Elijah gaspar;RGA [facility] [address] [place] [phone] Anne Hussein " blood glucose, 217 mg/dL LinkLogic 65-99 High IG [facility] random [facility] [address] [place] [address] [place] [phone] Dr[address] Eljiah gaspar;RGA [facility] [address] [place] [phone] Anne Hussein " cholesterol, 154 MG/DL LinkLogic <130 High IG [facility] non-HDL, total (CALC) Diagnostic [facility] [address] [facility] [place] [phone] [address] Elijah gaspar;RGA [facility] [address] [place] [phone] Anne Hussein" cholesterol/HDL 7.4 (calc) LinkLogic <5.0 High [facility] ratio, serum, Diagnostic percent [facility] [address] [facility] [place] [phone] Dr[address] Elijah gaspar;RGA [facility] [address] [place] [phone] Anne Hussein" LDL cholesterol, LDL LinkLogic IG [facility] serum cholesterol Diagnostic not [facility] calculated. Lab [address] [place] [address]... mg/dL Blvd (calc) [place] [phone] Dr. Elijah gaspar;RGA [facility] [address] [facility] [phone] Anne Hussein " triglyceride, 407 mg/dL LinkLogic <150 High IG [facility] serum, fasting Diagnostic [facility] [address] [place] [phone] Dr[address] Elijah gaspar;RGA [facility] [address] [place] [phone] Anne Hussein " HDL cholesterol, 24 mg/dL LinkLogic >40 Low IG [facility] serum Diagnostic [facility] [address] [place] [phone] Dr[address] Elijah gaspar;RGA [facility] [address] [place] [phone] Anne Hussein " cholesterol, serum 178 mg/dL LinkLogic <200 Normal [facility] [address] [place] [phone] Dr[address] Elijah gaspar;RGA [facility] [address] [place] [phone] Anne Hussein HIV-1 RNA (log 10) <1.30 DETECTED LinkLogic NOT Abnormal [facility] 2/20 Log copies/mL DETECTED Diagnostic [facility] [address] [place] [phone] [address] Elijah gaspar " HIV-1RNA, serum, <20 DETECTED LinkLogic NOT Abnormal [facility] by PCR, copies/mL DETECTED Diagnostic quantitative [facility] [address] [place] [phone] [address] Elijah gaspar HIV-1RNA, serum, <20 copies/mL [...] serum " eGFR if 101 LinkLogic >59 Malagasy mL/min/((173/1 00).m2) " Estimated 87 LinkLogic >59 [...] serum " eGFR if 99 LinkLogic >59 Malagasy mL/min/((173/1 00).m2) " Estimated 86 LinkLogic >59 [...] serum " eGFR if 127 LinkLogic >59 Malagasy mL/min/((173/1 00).m2) " Estimated 110 LinkLogic >59 [...] serum " eGFR if 107 LinkLogic >59 Malagasy mL/min/((173/1 00).m2) " Estimated 93 LinkLogic >59 [...] " chlamydia DNA Negative LinkLogic Negative probe 2016/0 Quantiferon Gold Negative LinkLogic Negative 07/21 TB [...] serum " eGFR if 121 LinkLogic >59 Malagasy mL/min/((173/1 00).m2) " Estimated 105 LinkLogic >59 [...] [phone] (CD4) count hepatitis A Reactive Rupert 6/10 antibody, total [place] hepatitis B Non-reactive 04/15 surface antibody [place] T-helper cells 42 % 04/15 (CD4) as percent [place] of blood lymphocytes HIV-1RNA, serum, <20 04/15 by PCR, [place] quantitative T-helper cells 677 uL 04/15 (CD4) count [facility] toxoplasma gondii <3 Rupert 04/15 antibody, IgG [facility] rapid plasma 1:2 04/15 reagin antibody, [place] serum Hepatitis C virus Not-detected 04/15 (HCV) RNA, PCR, [place] quantitative hepatitis C Non-reactive 04/15 antibody, serum [place] hepatitis B reactive 04/15 surface antigen [facility] protein, total, 7.6 g/dL 04/15 serum [place] " albumin, serum 4.0 g/dL [facility] bilirubin, serum, 0.5 mg/dL Rupert 04/15 total [place] " alanine 103 1/L Rupert aminotransferase [place] (SGPT), serum " aspartate 54 1/L Rupert aminotransferase [place] (SGOT), serum erythrocyte (RBC) 5.26 10*6/mm3 04/15 count [facility] platelet count 228 10*3/mm3 04/15 [facility] " hematocrit, blood 46.8 % [facility] hemoglobin, blood 16.5 g/dL Rupert 04/15 [facility] " leukocyte count, 0.74 10*3/mm3 [facility] [place] [facility], 330 mg/dL Rupert 04/15 serum, fasting [place] " LDL cholesterol, 88 mg/dL [facility] [place] [facility] serum [facility] " HDL cholesterol, 23 mg/dL [facility] [place] [facility] serum [facility] cholesterol, serum 153 mg/dL 04/15 [facility] creatinine, serum 0.9 mg/dL 04/15 [facility] " urea nitrogen, 10 mg/dL [facility] [place] [facility] blood [facility] " potassium, serum 4.1 mmol/L [facility] sodium, serum 142 mmol/L 04/15 [facility] HIV-1RNA, serum, 75 /mL Casa Zhang 02/28 by PCR, [facility] quantitative " T-helper cells 783 uL Casa Zhang (CD4) count [facility] HISTORY OF IMMUNIZATIONS No Information Available HISTORY OF MEDICATION USE Medication Instructions Dates Provider Comments ANTABUSE 250 MG ORAL 1 By Mouth Every Day Zishan Samiuddin TABLET METFORMIN HCL 500 MG 1 by mouth twice a Rupert Eganecek ORAL TABLET day NICOTINE - Sneha Hurst MG/24HR TRANSDERMAL KIT LEXAPRO 10 MG ORAL 1 By Mouth Every Day Zian Samiuddin TABLET RISPERDAL 2 MG ORAL 1 By Mouth at bedtime - Zishan Samiuddin TABLET LISINOPRIL 20 MG TAKE 1 TABLET BY Naomie S Cuau[place]em[place] TABLET MOUTH EVERY DAY [facility] MIRTAZAPINE TABLET - Zian Samiuddin COMPLERA TAKE ONE TABLET BY Naomie S Cu[place]em[place] MOUTH ONCE DAILY WITH [facility] FOOD. STORE IN ORIGINAL BOTTLE AT ROOM TEMPERATURE. SOCIAL HISTORY Date Observation Value Provider drug use, illicit Never Derick Wilder " alcohol use Currently Derick Wilder " social history E&M Single. N Derick Wilder ot homeless. Born in [facility]. City: [place]. State: [place]. E mployed full-time. [employer] . Highest education level: some college. S ex at : Male. Sexual orientation: Botello. Gender identity: Male. Gender of partner(s): Male. Age of first sexual intercourse: 16. Sexually Active: No. d bradleyen " social history reviewed E&M reviewed today Derick Wilder " sexual orientation Botello Derick Wilder " assessment of health Adequate Derick Wilder literacy ([facility] 2014 Standards, 3C10) " passive cigarette smoke No Derick Wilder exposure " smoking status former smoker Derick Wilder " Exercise Program Referral Pool Wilder " Weight Management Counseling Pool Wilder Provided " Nutrition intervention Pool Wilder time of call 04/25/2019 11:55 AM Agustina Simpson time of call 02/08/2019 1:57 PM Kelli Lyles smoking status former smoker Dc Guerrero sexual orientation Botello Rupert Tiwari " assessment of health Adequate Caterina Macedo literacy ([facility] 2014 Standards, 3C10) " drug use, illicit Never Caterina Macedo " alcohol use Currently Caterina Macedo " smoking status former smoker Caterina Macedo " social history E&M Single. N Caterina Macedo ot homeless. Born in [facility]. City: [place]. State: [place]. E mployed full-time. [employer] . Highest [...] Rupert Tiwari " drug use, illicit Never Caetrina Macedo " alcohol use Currently Caterina Macedo " social history E&M Single. N Caterina Macedo ot homeless. Born in [facility]. City: [place]. State: [place]. E mployed full-time. [employer] . Highest [...] assessment of health Adequate Caterina Macedo literacy ([facility] 2014 Standards, 3C10) " Exercise Program Referral T Caterina Macedo " Weight Management Counseling T Caterina Macedo Provided " Nutrition intervention T Caterina Macedo sexual orientation Botello Rupert Michelleotilia " drug use, illicit Never Caterina Macedo " alcohol use Currently Caterina Macedo " social history E&M Single. N Caterina Macedo ot homeless. Born in [facility]. City: [place]. State: [place]. E mployed full-time. [employer] [...] assessment of health Adequate Caterina Macedo literacy ([facility] 2014 Standards, 3C10) smoking, advice to quit Yes Rupert Nemecek " Exercise Program Referral T Caterina Macedo " Weight Management Counseling T Caterina Macedo Provided " Nutrition intervention T Caterina Macedo " assessment of health Adequate Caterina Macedo literacy ([facility] 2014 Standards, 3C10) " passive cigarette smoke No Caterina Macedo exposure " smoking status current every day smoker Caterina Macedo " social history E&M Single. N Caterina Macedo ot homeless. Born in [facility]. City: [place]. State: [place]. E mployed full-time. [employer] . Highest education level: some college. S ex at : Male. Sexual orientation: Botello. Gender identity: Male. Gender of partner(s): Male. Age of first sexual intercourse: 16. Sexually Active: No. d riven " social history reviewed E&M reviewed today Caterina Macedo " alcohol use Currently Caterina Macedo smoking status current every day smoker Dc Guerrero sexual orientation Botello Rupert Tiwari " smoking, advice to quit Yes Rupert Jigneshecek " Exercise Program Referral T Rupert Michellek " Weight Management Counseling T Rupert Martinezk Provided " Nutrition intervention T Rupert Nemraymundok " alcohol use Currently Caterina Macedo " social history E&M Single. N Caterina Macedo ot homeless. Born in [facility]. City: [place]. State: [place]. E mployed full-time. [employer] [...] counseling " tobacco use (cigarettes, Currently Sneha Cates cigar, chew, pipe) " smoking status current some day smoker Sneha Dan smoking status current some day smoker Dc Guerrero time of call 07/12/2016 4:28 PM Maribeth Pollo drug use, illicit Never Dc Guerrero " [...] with a younger sister. Father was a [employer] employee and mother worked as a postal employee mother of scleroderma. sexual orientation Botello Shirley Encarnacion alcohol use, number maximum 9 drinks per [...] N Caterina Macedo ot homeless. Born in [facility]. City: [place]. State: [place]. E mployed full-time. [employer] . Highest education level: some college. S ex at : Male. Sexual orientation: Botello. Gender identity: Male. Gender of partner(s): Male. Age of first sexual intercourse: 16. Sexually Active: No. d gina " sexual orientation Botello Caterina Macedo " sex at Male Caterina Macedo " Occupation #1 [employer] Caterina Macedo " patient considered to be No Caterina Macedo homeless " passive cigarette smoke No Caterina Macedo exposure " smoking status former smoker Rupert Eganpatrice smoking status never smoker Shirley Encarnacion " [...] 2 " Generalized Anxiety Disorder 0 Derick Meño Questionnaire - Question 1 mental status assessment, [...] judgment " insight (mental status exam) good [facility] Al[facility]adoi[facility] " Mental Status Exam: adequate fund of [facility] Larajose c intelligence information, intact memory processes, oriented to person, oriented to place, oriented to time, oriented to situation, oriented to reality, average " hallucinations none [facility] " thought content (mental lucid [facility] status exam) (E&M) " mental status assessment, goal-directed, logical [facility] Albaradoananthudbrendan process " mental status assessment, alert, attentive, clear [facility] Albaradoiuddin sensorium " affect (mental status exam) congruent, euthymic, normal [facility] Samiuddin intensity, normal range, constricted " mood (mental status exam) anxious, frustrated [facility] Albaradoiuddin " mental status assessment, normal flow, normal pace, [facility] Periuddin speech activity normal pressure, normal rate, normal tone, normal volume, spontaneous " mental status assessment, normal gait, normal [facility] Samiuddin motor activity posture, fidgety " behavior (mental status exam) appropriate, candid, Jinregis Albaradoiudbrendan cooperative, good eye contact, polite, responsive " mental appearance (mental adequate hygiene, [facility] Preiuddin status exam) appropriate dress, looks like stated [...] neat " anxiety worry a lot, restlessness, Zishan Samiuddin irritability assessment of mood and affect good eye contact, normal Casa Riggs E&M affect " mental status examination: alert and oriented to Casa Riggs orientation E&M person, place, and time [...] name Policy type / Coverage type Covered democrat ID Sliding Fee - Cat 1 Commercial insurance company *Stevo White 0-100% Other Stveo White 101-200% Other Stevo White 101-200% Other FAMILY PLANNING*TITLE V Medicaid Primary Health Care Ron Other Stevo White 101-200% Other Copay Assistance - Financial Services Other [id number] Sliding Fee - Cat 3 Commercial insurance company [id number] Stevo White 101-200% Other [id number] Sliding Fee - Cat 3 Commercial insurance company Stevo White 101-200% Other Sliding Fee - Cat 2 Commercial insurance company FAMILY PLANNING*TITLE V Medicaid Primary Health Care Ron Other Stevo White 101-200% Other Sliding Fee - Cat 3 Commercial insurance company [id number] Stevo White 101-200% Other [id number] Premium Assistance -Financial Services Other [id number] P[place] BCBS HMO MEDICAL/MARKETPLACE Blue Shield Primary Health Care Ron Other [id number] Family Planning/WHFPT Medicaid [id number] Sliding Fee Scale Commercial insurance company Stevo White up to 300% Other [id number] ADVANCE DIRECTIVES Name Date DISCUSSED - NO DECISION MADE TREATMENT PLAN Name return to clinic return to clinic Date Name RPR, Rfx Qn RPR/Confirm TP Comp. Metabolic Panel (14) CBC With Differential/Platelet CD4/CD8 Ratio Profile Lipid Panel RNA, Real Time PCR (Graph) HBV RT PCR, Quant (Graph) HCV Antibody [...] Level IV Est Patient Exp Problem - 05433 Ofc Vst, Est Level IV Est Patient Exp Problem - 22213 Ofc Vst, Est Level IV INFLUENZA VACCINE QUADRIVALENT 3 YRS PLUS IM Spherocyl, SV, plano to +/- 4.00d sphere, 0.12 [address] 2.[address]d cyl, per lens Frames, purchases Est Patient Intermediate Opth - 21618 Ofc Vst, Est Level IV Pneumovax Vaccine PPSV23 Ofc Vst, Est Level IV Primary Care Medical Case Management Primary Care Medical Case Management Primary Care Medical Case Management Est Patient Exp Problem - 41563 Ofc Vst, Est Level IV INFLUENZA VACCINE QUADRIVALENT 3 YRS PLUS IM Est Patient Exp Problem - 67767 Dispensing Visit (UNLIVSTED OPHTHALMOLOGICAL SERVICE/PROCEDURE) Primary Care Medical Case Management Primary Care Medical Case Management Frames, purchases Spherocyl, SV, plano to +/- 4.00d sphere, 0.12 to 2.00d cyl, per lens Diagnostic evaluation with medical - 04940 Est Patient Intermediate Opth - 26624 Est Patient Intermediate Opth - 63138 Primary Care Medical Case Management Primary Care Medical Case Management Primary Care Medical Case Management Primary Care Medical Case Management Primary Care Medical Case Management Behavioral Health - Psychiatry Primary Care - Service Planning Comprehensive Primary Care - Assesment-Comprehensive [facility] Primary Care Medical Case Management Ofc Vst, New Level IV Behavioral Health - Psychiatry Prevnar (PCV13) IM Dispensing Visit (UNLIVSTED OPHTHALMOLOGICAL SERVICE/PROCEDURE) Frames, purchases Spherocyl, SV, plano to +/- 4.00d sphere, 0.12 to 2.00d cyl, per lens Est Patient Intermediate Opth - 81151 New Patient Intermediate Opth - 21479 HISTORY OF PROCEDURES Procedure Date Procedure Name Provider Procedure Notes Status Spherocyl, SV, plano to Ashlee Verdugo completed +/- 4.00d sphere, 0.12 to 2.00d cyl, per lens Frames, purchases Ashlee Johnston Narinder completed Est Patient Intermediate Nestor Guzman completed Opth - 96345 Primary Care Medical Case Kasia Meserve Time spent with completed Management patient: 15 Primary Care Medical Case Kasia Meserve Time spent with completed Management patient: 10 Primary Care Medical Case Kasia Meserve Time spent with completed Management patient: 10 Dispensing Visit Shirley Encarnacion completed (UNLIVSTED OPHTHALMOLOGICAL SERVICE/PROCEDURE) Primary Care Medical Case Kasia Meserve Time spent with completed Management patient: 15 Primary Care Medical Case Kasia Meserve Time spent with completed Management patient: 30 Frames, purchases Shirley Encarnacion completed Spherocyl, SV, plano to Shirley Encarnacion completed +/- 4.00d sphere, 0.12 to 2.00d cyl, per lens Diagnostic evaluation Dc Guerrero completed with [facility] - 48697 Est Patient Intermediate Casa Riggs completed Opt - 84334 Est Patient Intermediate Nestor Guzman completed Opt - 46044 Primary Care Medical Case Kasia Meserve Time [...] Patient Intermediate Casa Riggs completed Opth - 05218 New Patient Intermediate eNstor Guzman completed Opth - 56867 GOALS No Information Available HEALTH CONCERNS No Information Available
--- OUTSIDE RECORDS SUMMARY | 2019-12-23 20:23 | XMS REPORT | Summary of Care ---
:1980 Author Organization [facility] Address [address] [place] [address] Care Team Providers Name Role Phone Rupert Tiwari MD Primary Care Provider Reason for Referral (Routine) Status Reason Specialty Diagnoses / Referred By Referred To Procedures Contact Contact New Request Endocrinology Diagnoses Type 2 diabetes mellitus without complication, without long-term current use of insulin Apolinar Smith, Diabetes & Procedures CONSULT/REFERRAL DIABETES EDUCATION CLASS PA Metabolism [address] [facility] [id number] [place] [address] Reason for Visit Reason Comments Establish Care Encounter Details Date Type Department Care Team Description 12/02/2019 Office Visit [facility] Apolinar Smith, Human immunodeficiency virus (HIV) disease (Primary Dx); Infectious Diseases- [place] History of latent syphilis; [address] Type 2 diabetes mellitus without complication, without long- term current use of insulin; [facility] [id number] Chronic hepatitis B; [address] [place], [place] Hyperlipidemia, unspecified hyperlipidemia [address] [address] [place], [place] [phone] [id number] Allergies Active Allergy Reactions Severity Noted Date Comments Codeine Rash High 04/06/2011 documented as of this encounter (statuses as of 12/10/2019) Medications Medication Sig Dispensed Refills Start Date End Date Status geftixjtqf-ltukcyyd-c Take 200 mg 90 tablet 3 12/10/2019 Active enofo ala (ODEFSEY) by mouth 200-25-25 mg daily. Take TabIndications: Human one immunodeficiency 200/25/25 virus (HIV) disease mg tablet once daily with food mirtazapine (REMERON) Take 1 Tab 30 Tab 5 06/24/2015 Discontinued 15 mg tablet by mouth at 0 bedtime. lisinopril Take 1 Tab 30 Tab 5 01/27/2016 Discontinued (PRINIVIL,ZESTRIL) 10 by mouth 0 (Reorder) mg tablet daily. emtricitab-rilpivirin TAKE ONE 30 Tab 3 02/09/2016 Discontinued e-tenofov (COMPLERA) TABLET BY 0 200-25-300 mg per MOUTH ONE tablet TIME DAILY WITH A FULL MEAL. risperiDONE Take 1 30 tablet 5 05/20/2016 Discontinued (RISPERDAL) 0.5 mg tablet by 0 tablet mouth every morning. metFORMIN 500 mg Take 1 0 12/02/2019 Discontinued tablet tablet by 0 (Reorder) mouth 2 (two) times daily with meals. lisinopril 20 mg 1 po once 0 12/02/2019 Discontinued tablet daily 0 (Reorder) documented as of this encounter (statuses as of 12/10/2019) Active Problems Problem Noted Date Intractable diarrhea 11/29/2014 Hypertriglyceridemia 02/06/2013 Depressive disorder 08/01/2012 Overview: ICD10 Diagnosis Term Industrial Registered Nurse Utility History of latent syphilis 02/29/2012 Chronic hepatitis B 10/24/2011 Herpes zoster 04/06/2011 Overview: ICD10 Diagnosis Term Industrial Registered Nurse Utility Human immunodeficiency virus (HIV) disease 04/06/2011 documented as of this encounter (statuses as of 12/10/2019) Resolved Problems Problem Noted Date Resolved Date Preauricular lymphadenopathy 12/09/2011 05/30/2012 HCV (hepatitis C virus) 04/06/2011 10/24/2011 Early syphilis, other primary syphilis 04/06/2011 02/29/2012 documented as of this encounter (statuses as of 12/10/2019) Immunizations Name Administration Dates Next Due HEPATITIS A 04/23/2014, 01/08/2010, 04/16/2009 Influenza Virus Vaccine 09/18/2019, 08/01/2012, 07/25/2011 Influenza Virus Vaccine Quad IM 3+ 09/17/2014 YRS Influenza Virus Vaccine Quad IM 6-35 09/17/2014 (Deferred: Vaccine [place] Unavailable) PPD (TB) 08/01/2012, 04/19/2011, 07/02/2010 Pneumococcal 13 Conjugate, PCV13 09/17/2014 (Prevnar 13) Pneumococcal Polysaccharide, PPSV23 04/19/2011, 04/16/2009 (PNEUMOVAX) TDAP (ADACEL) VACCINE 04/19/2011 Tdap 04/16/2009 documented as of this encounter Social History Tobacco Use Types Packs/Day Years Used Date Former Smoker Cigarettes 0.3 7 Quit: 12/07/2013 Smokeless Tobacco: Never Used Alcohol Use Drinks/Week oz/Week Comments No Sex Assigned at Date Recorded Not on file Job Start Date Occupation Industry Not on file Not on file Not on file Travel History Travel Start Travel End No recent travel history available. documented as of this encounter Last Filed Vital Signs Vital Sign Reading Time Taken Comments Blood Pressure 175/95 12/02/2019 10:14 AM FOURDRINIER TENDER Pulse 103 12/02/2019 10:14 AM FOURDRINIER TENDER Temperature 36.9 C (98.5 F) 12/02/2019 10:14 AM FOURDRINIER TENDER Respiratory Rate 18 12/02/2019 10:14 AM FOURDRINIER TENDER Oxygen Saturation - - Inhaled Oxygen Concentration - - Weight 67.3 kg (148 lb 4.8 oz) 12/02/2019 10:14 AM FOURDRINIER TENDER Height 165.1 cm (5' 5") 12/02/2019 10:14 AM FOURDRINIER TENDER Body Mass Index 24.68 12/02/2019 10:14 AM FOURDRINIER TENDER documented in this encounter Progress Notes Apolinar Smith PA - 12/02/2019 10:30 AM CST [facility] ID Clinic Visit ROBERT: 12/02/2019 Chief Complaint: HIV patient re-establishing care Jaleel Olivas is a 39 year old male with PMH seen below who is here today to re -establish HIV care.Patient was last seen at our clinic in 2015 and then transferred to [facility] due to insurance coverage. Patient was not happy with his care at [facility] so decided to come back. He was first diagnosed with HIV in 2008 and has only been on Complera ART. He is tolerating Complera well and reports good adherence. Patient has not had any opportunistic infections or STDs since last seen at our clinic. Patient was hospitalized at [facility] for a week for a perianal abscess on 09/2019. His was on antibiotics and his sister had to pack his wound. His wound is healed and has had no complications. Patient has had RUQ abdominal pain every day for ~ a year. He describes it as a sharp, constant painthat last 10-15 minutes. He does not associate this pain after eating food. He has tried antacids but does not improve symptoms. Patient has lost ~ 15 lbs within last 6 months. He has had chronic non-bloody diarrhea 4x day but denies fever, N/V, jaundice, hematuria, polydipsia, or hx or kidney stones. Patient was diagnosed with T2DM ~ 3years ago and is currently taking Metformin. He complains of increased frequency and nocturia x5. He checks his blood glucose before breakfast, lunch and dinner everyday with glucose ranging from 160-300. He reports eating a lot of swedish food, candy and cokes. Patient's father has hx of T2DM. He denies polydipsia, dysuria, vision changes, or paresthias of lower extremities. ALLERGIES Allergies Allergen Reactions Codeine Rash MEDICATIONS Current Outpatient Medications Medication Sig Dispense Refill lisinopril 20 mg tablet 1 po once daily metFORMIN 500 mg tablet Take 1 tablet by mouth 2 (two) times daily with meals. No current facility-administered medications for this visit. HISTORY Past Medical History: Diagnosis Date Anxiety disorder 05/16/11 Chronic hepatitis B 2008 HBeAg seroconversion in 07/17 Depressive disorder followed by Dr. Dorado Diabetes mellitus Herpes zoster HIV (human immunodeficiency virus infection) 2008 baseline genotype - K103N per outside facility clinic note HTN (hypertension) 10/24/11 Hypertriglyceridemia Nonalcoholic hepatosteatosis 11/29/14 - CT scan, obesity, trigs, HBV infection PTSD (post-traumatic stress disorder) 05/16/11 Social phobia 05/16/11 Syphilis 2009 probably latent (titer at that time unknown), Bicillin injection x 3, RPR persistently (+) since then Family History Problem Relation Age of Onset Psychiatry Father bipolar No family status information on file. REVIEW OF SYSTEMS General: (+) weight loss, (-) fever, (-) chills, (-) dizziness, (-) fatigue Skin: (-) rash, (-) lesion HEENT: (+) dry mouth, (-) headache, (-) change in vision, (-) nasal discharge, ( -) sore throat Neck: (-) pain, (-) difficulty swallowing Hem/Lymph: (-) bleeding disorder Respiratory system: (-) cough, (-) shortness of breath, (-) dyspnea on exertion Cardiovascular: (-) chest pain, (-) palpitations Gastrointestinal: (+) abdominal pain, (+) diarrhea, (-) nausea, (-) vomiting, (- ) constipation Genitourinary: (+) increased frequency, (+) nocturia, (-) dysuria, (-) hematuria Endocrine: (-) heat intolerance, (-) cold intolerance, (-) polydipsia Neurological: (-) numbness, (-) tingling, (-) weakness Back: (-) pain Extremities / musculoskeletal: (-) muscle pain, (-) joint pain Psycho / social: (+) anxiety, (+) depression PHYSICAL EXAM BP (!) 175/95 | Pulse 103 | Temp 36.9 C (98.5 F) (Oral) | Resp 18 | Ht 5 ' 5" (1.651 m) | Wt148 lb 4.8 oz (67.3 kg) | BMI 24.68 kg/m Wt Readings from Last 2 Encounters: 12/02/19 148 lb 4.8 oz (67.3 kg) 02/28/19 163 lb (73.9 kg) General:elevated BP on exam (did not take BP medication), well appearing, NAD HEENT:PERRL; EOMI; oropharynx clear; moist mucous membranes Neck:supple, no lymphadenopathy Lungs:CTAB, no wheezing or rhonchi Cardio: not tachycardic on exam; RRR; S1, S2 normal; no murmurs, rubs or gallops Abdomen:LUQ pain to palpation, soft, non-distended abdomen with normactive bowel sounds; no hepatosplenomegaly Extremities:no clubbing, cyanosis, or edema Skin:no rashes Neuro:cranial nerves II through XII grossly intact; sensation grossly intact; muscle strength 5 out of 5 in all four extremities Lymphatic:no significant lymphadenopathy LABORATORY 01/27/2016 CO6=005 (48%) 12/02/2019 HIV- INL=574 copies/mL Component Latest Ref Rng & Units 12/02/2019 1:00 PM GLUCOSE-Q 65 - 99 mg/dL 211 (H) UREA NITROGEN (BUN)-Q 7 - 25 mg/dL 10 CREATININE-Q 0.60 - 1.35 mg/dL 1.01 eGFR NON-AFR. IRISH-Q > OR=60 mL/min/1.73m2 92 eGFR -Q > OR=60 mL/min/1.73m2 107 BUN/CREATININE RATIO-Q 6 - 22 (calc) NOT APPLICABLE SODIUM-Q 135 - 146 mmol/L 139 POTASSIUM-Q 3.5 - 5.3 mmol/L 4.0 CHLORIDE-Q 98 - 110 mmol/L 105 CARBON DIOXIDE-Q 20 - 32 mmol/L 27 CALCIUM-Q 8.6 - 10.3 mg/dL 9.3 PROTEIN, TOTAL-Q 6.1 - 8.1 g/dL 8.3 (H) ALBUMIN-Q 3.6 - 5.1 g/dL 4.4 GLOBULIN-Q 1.9 - 3.7 g/dL (calc) 3.9 (H) ALBUMIN/GLOBULIN RATIO-Q 1.0 - 2.5 (calc) 1.1 BILIRUBIN, TOTAL-Q 0.2 - 1.2 mg/dL 0.6 ALKALINE PHOSPHATASE-Q 40 - 115 U/L 78 AST-Q 10 - 40 U/L 32 ALT-Q 9 - 46 U/L 50 (H) Component Latest Ref Rng & Units 12/02/2019 1:00 PM WHITE BLOOD CELL COUNT-Q 3.8 - 10.8 Thousand/uL 6.7 RED BLOOD CELL COUNT-Q 4.20 - 5.80 Million/uL 5.96 (H) HEMOGLOBIN-Q 13.2 - 17.1 g/dL 17.9 (H) HEMATOCRIT-Q 38.5 - 50.0 % 52.0 (H) MCV-Q 80.0 - 100.0 fL 87.2 MCH-Q 27.0 - 33.0 pg 30.0 MCHC-Q 32.0 - 36.0 g/dL 34.4 RDW-Q 11.0 - 15.0 % 16.0 (H) PLATELET COUNT-Q 140 - 400 Thousand/uL 176 MPV-Q 7.5 - 12.5 fL 10.2 Component Latest Ref Rng & Units 12/02/2019 1:00 PM HEMOGLOBIN A1c-Q <5.7 % of total Hgb 6.9 (H) Component Latest Ref Rng & Units 12/02/2019 1:00 PM CHOLESTEROL, TOTAL-Q <200 mg/dL 170 HDL CHOLESTEROL-Q >40 mg/dL 28 (L) TRIGLYCERIDES-Q <150 mg/dL 463 (H) [id number] mg/dL (calc) SEE NOTE CHOL/HDLC RATIO-Q <5.0 (calc) 6.1 (H) NON-HDL CHOLESTEROL-Q <130 mg/dL (calc) 142 (H) ASSESSMENT/PLAN 1. HIV - patient was diagnosed with HIV in 2008, was receiving care at [facility] before coming here - patient's last VL was 300 copies/mL and CD4 was 895 - stop Complera - start taking Odefsey 2. T2DM without complications - patient was diagnosed ~3 years ago, has increased urinary frequency, nocturia x5, weight loss but denies paresthesia - patient's diabetes was being monitored by PCP at [facility] - continue taking metformin 500 mg BID - patient's HbA1C was 6.9 today - discussed with patient may need to go on insulin (Lantus) if blood sugars are not controlled - educated patient on proper diet and limiting sugars, carbohydrates - continue checking blood glucose before breakfast, lunch, and dinner 3. H/o latent Syphilis - diagnosed in 2008, patient's last RPR was 1:4 on 04/23/2014 - repeat RPR 4. Chronic Hep B - patient's lab results include: HBsAB negative, HBsAg positive, HBV PCR pending - patient has RUQ pain with no fever, jaundice, N/V - Odefsey used to treat Hep B 5. Hyperlipidemia - patient's triglycerides were 463 (patient was not fasting) - need to repeat labs when patient has been fasting - may need to add a fibrate medication 6. Essential Hypertension - patient's blood pressure was 175/95 (did not take BP in the morning) - continue taking lisinopril 20 mg 7. Healthcare Maintenance - received influenza vaccine 09/2019 RTC in 2 weeks documented in this encounter Plan of Treatment Date Type Specialty Care Team Description 12/17/2019 Office Visit Infectious Disease Apolinar Smith PA [id number] [place] [address] [phone] Name Type Priority Associated Diagnoses Order Schedule LIPID PANEL LAB Routine Hyperlipidemia, unspecified Expected: (56513)(TOTAL hyperlipidemia type 12/02/2019, CHOLESTEROL, Expires: 12/02/2020 TRIGLYCERIDES, HDL) COMP. METABOLIC PANEL LAB Routine Human immunodeficiency virus Expected: ([id number]) (HIV) disease 12/02/2019, Expires: 12/02/2020 CBC WITH DIFF LAB Routine Human immunodeficiency virus Expected: (HIV) disease 12/02/2019, Expires: 12/02/2020 PROTHROMBIN TIME / INR LAB Routine Chronic hepatitis B Expected: 12/02/2019, Expires: 12/02/2020 HEPATITIS B SURFACE AG LAB Routine Chronic hepatitis B Expected: 12/02/2019, Expires: 12/02/2020 HEPATITIS B SURFACE AB LAB Routine Chronic hepatitis B Expected: 12/02/2019, Expires: 12/02/2020 HEPATITIS BE AB LAB Routine Chronic hepatitis B Expected: 12/02/2019, Expires: 12/02/2020 HEPATITIS BE AG LAB Routine Chronic hepatitis B Expected: 12/02/2019, Expires: 12/02/2020 THYROID STIMULATING LAB Routine Hyperlipidemia, unspecified Expected: HORMONE (tsh) hyperlipidemia type 12/02/2019, Expires: 12/02/2020 GLYCOSYLATED HEMOGLOBIN LAB Routine Type 2 diabetes mellitus Expected: (A1C) without complication, 12/02/2019, without long-term current Expires: 12/02/2020 use of insulin URINALYSIS LAB Routine Type 2 diabetes mellitus Expected: without complication, 12/02/2019, without long-term current Expires: 12/02/2020 use of insulin Misc. Sendout- HIV-1 RNA LAB Routine Human immunodeficiency virus Expected: Quantitative RT-PCR (HIV) disease 12/02/2019, ([id number]) via [facility] Expires: 12/02/2020 Diagnostics Misc. Sendout- LAB Routine Human immunodeficiency virus Expected: Lymphocyte Subset Panel (HIV) disease 12/02/2019, 5 (5051) via [facility] Expires: 12/02/2020 Diagnostics MICROALBUMIN URINE LAB Routine Type 2 diabetes mellitus Expected: without complication, 12/02/2019, without long-term current Expires: 12/02/2020 use of insulin SYPHILIS FOLLOW UP LAB Routine History of latent syphilis Expected: 12/02/2019, Expires: 12/02/2020 HBV BY REAL-TIME PCR LAB Routine Chronic hepatitis B Expected: 12/02/2019, Expires: 12/02/2020 Health Maintenance Due Date Last Done Comments EYE EXAM 1988 FOOT EXAM 1996 HgA1C 06/01/2020 12/02/2019 CREATININE (SERUM) 12/02/2020 12/02/2019, 02/28/2019, 01/27/2016, Additional history exists LDL-C 12/02/2020 12/02/2019, 01/27/2016, 04/23/2014, Additional history exists URINE MICROALBUMIN 12/02/2020 12/02/2019 DTaP,Tdap,and Td Vaccines (3 - Td) 04/19/2021 04/19/2011, 04/16/2009 PNEUMOCOCCAL 0-64 YEARS COMBINED Completed 09/17/2014, 04/19/2011, SERIES 04/16/2009 INFLUENZA VACCINE Completed 09/18/2019, 09/17/2014, 08/01/2012, Additional history exists documented as of this encounter Results Not on filedocumented in this encounter Visit Diagnoses Diagnosis Human immunodeficiency virus (HIV) disease - Primary Human immunodeficiency virus [HIV] disease History of latent syphilis Personal history of other infectious and parasitic disease Type 2 diabetes mellitus without complication, without long-term current use of insulin Chronic hepatitis B Viral hepatitis B without mention of hepatic coma, chronic, without mention of hepatitis delta Hyperlipidemia, unspecified hyperlipidemia type documented in this encounter (Work) [id number] documented as of this encounter Advance Directives Type Date 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
--- OUTSIDE RECORDS SUMMARY | 2019-12-23 20:23 | XMS REPORT | Summary of Care ---
:1980 Author Organization [facility] - [facility] Address [address] [place] [address] Care Team Providers Name Role Phone Rupert Tiwari MD Primary Care Provider Reason for Visit Reason Comments LAB Encounter Details Date Type Department Care Team Description 12/02/2019 Yarn Sizer Visit [facility] Apolinar Smith PA [address] [facility] [id number] [place], [place] [id number] Chronic hepatitis B [facility] Allergies Active Allergy Reactions Severity Noted Date Comments Codeine Rash High 04/06/2011 documented as of this encounter (statuses as of 12/02/2019) Medications Medication Sig Dispensed Refills Start Date End Date Status emtricitab-rilpivirine TAKE ONE TABLET BY 30 Tab 3 02/09/2016 Active -tenofov (COMPLERA) MOUTH ONE TIME 200-25-300 mg per DAILY WITH A FULL tablet MEAL. metFORMIN 500 mg Take 1 tablet by 0 12/02/2019 Active tablet mouth 2 (two) times daily with meals. lisinopril 20 mg 1 po once daily 0 12/02/2019 Active tablet documented as of this encounter (statuses as of 12/02/2019) Active Problems Problem Noted Date Intractable diarrhea 11/29/2014 Hypertriglyceridemia 02/06/2013 Depressive disorder 08/01/2012 Overview: ICD10 Diagnosis Term Maintenance Trainer Utility History of latent syphilis 02/29/2012 Chronic hepatitis B 10/24/2011 Herpes zoster 04/06/2011 Overview: ICD10 Diagnosis Term Maintenance Trainer Utility Human immunodeficiency virus (HIV) disease 04/06/2011 documented as of this encounter (statuses as of 12/02/2019) Resolved Problems Problem Noted Date Resolved Date Preauricular lymphadenopathy 12/09/2011 05/30/2012 HCV (hepatitis C virus) 04/06/2011 10/24/2011 Early syphilis, other primary syphilis 04/06/2011 02/29/2012 documented as of this encounter (statuses as of 12/02/2019) Immunizations Name Administration Dates Next Due HEPATITIS [...] of this encounter Last Filed Vital Signs Not on filedocumented in this encounter Plan of Treatment Date Type Specialty Care Team Description 12/17/2019 Office Visit Infectious Disease Apolinar Smith PA [address] [facility] [facility] [id number] [place], [place] [id number] Health Maintenance Due Date Last Done Comments HgA1C 1979 EYE EXAM 1988 URINE MICROALBUMIN 1988 FOOT EXAM 1996 LDL-C 01/26/2017 01/27/2016, 04/23/2014, 02/06/2013, Additional history exists CREATININE (SERUM) 02/29/2020 02/28/2019, 01/27/2016, 06/24/2015, Additional history exists INFLUENZA VACCINE (#1) 2020 09/17/2014, 08/01/2012, Postponed from 07/25/2011 07/07/2019 (Refused) DTaP,Tdap,and Td Vaccines 04/19/2021 04/19/2011, 04/16/2009 (3 - Td) PNEUMOCOCCAL 0-64 YEARS Completed 09/17/2014, 04/19/2011, COMBINED SERIES 04/16/2009 documented as of this encounter Results Not on filedocumented in this encounter Visit Diagnoses Diagnosis Chronic hepatitis B Viral hepatitis B without mention of hepatic coma, chronic, without mention of hepatitis delta documented in this encounter (Work) [id number] documented as of this encounter Advance Directives Type Date Recorded 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
--- OUTSIDE RECORDS SUMMARY | 2019-12-23 20:23 | XMS REPORT | Summary of Care ---
:1980 Author Organization [facility] - Health Address [address] [place] [address] Care Team Providers Name Role Phone Rupert Tiwari MD Primary Care Provider Encounter Details Date Type Department Care Team Description 12/02/2019 Orders Only [facility] Doctor Unassigned, No [address] [facility] [place] [address] [address] [place] [address] Allergies Active Allergy Reactions Severity Noted Date Comments Codeine Rash High 04/06/2011 documented as of this encounter (statuses as of 12/02/2019) Medications Medication Sig Dispensed Refills Start Date End Date Status mirtazapine (REMERON) Take 1 Tab by 30 Tab 5 06/24/2015 Active 15 mg tablet mouth at bedtime. lisinopril Take 1 Tab by 30 Tab 5 01/27/2016 Active (PRINIVIL,ZESTRIL) 10 mouth daily. mg tablet emtricitab-rilpivirine- TAKE ONE TABLET 30 Tab 3 02/09/2016 Active tenofov (COMPLERA) BY MOUTH ONE TIME 200-25-300 mg per DAILY WITH A FULL tablet MEAL. risperiDONE (RISPERDAL) Take 1 tablet by 30 tablet 5 05/20/2016 Active 0.5 mg tablet mouth every morning. documented as of this encounter (statuses as of 12/02/2019) Active Problems Problem Noted Date Intractable diarrhea 11/29/2014 Hypertriglyceridemia 02/06/2013 Depressive disorder 08/01/2012 Overview: ICD10 Diagnosis Term Finish Machine Tender Utility History of latent syphilis 02/29/2012 Chronic hepatitis B 10/24/2011 Herpes zoster 04/06/2011 Overview: ICD10 Diagnosis Term Finish Machine Tender Utility Human immunodeficiency virus (HIV) disease 04/06/2011 documented as of this encounter (statuses as of 12/02/2019) Resolved Problems Problem Noted Date Resolved Date Preauricular lymphadenopathy 12/09/2011 05/30/2012 HCV (hepatitis C virus) 04/06/2011 10/24/2011 Early syphilis, other primary syphilis 04/06/2011 02/29/2012 documented as of this encounter (statuses as of 12/02/2019) Immunizations Name Administration Dates Next Due HEPATITIS A 04/23/2014, 01/08/2010, 04/16/2009 Influenza Virus Vaccine 08/01/2012, 07/25/2011 Influenza Virus Vaccine Quad IM [...] Treatment Date Type Specialty Care Team Description 12/02/2019 Office Visit Infectious Disease [facility] [id number] [place] [address] [phone] Health Maintenance Due Date Last Done Comments INFLUENZA VACCINE (#1) 2019 09/17/2014, 08/01/2012, 07/25/2011 DTaP,Tdap,and Td Vaccines (3 - Td) 04/19/2021 04/19/2011, 04/16/2009 PNEUMOCOCCAL 0-64 YEARS COMBINED Completed 09/17/2014, 04/19/2011, SERIES 04/16/2009 documented as of this encounter Procedures Procedure Name Priority Date/Time Associated Diagnosis Comments ASSIGNMENT OF BENEFITS Routine 12/02/2019 9:30 AM POOLROOM/POOLHALL MANAGER documented in this encounter Results Not on filedocumented in this encounter Insurance Payer Benefit Plan / Group Subscriber ID Effective Dates Phone Address Type [employer]ETNA A[employer] [facility] [id number] 2017-Present PPO documented as of this encounter Advance Directives Type Date Recorded 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
--- OUTSIDE RECORDS SUMMARY | 2019-12-23 20:23 | XMS REPORT | Summary of Care ---
:1980 Author Organization [address] [address] Care Team Providers Name Role Phone Rupert Tiwari MD Primary Care Provider Reason for Visit Reason Comments Case Management Faxed diagnosis proof to [facility] Encounter Details Date Type Department Care Team Description 12/02/2019 Case Management [facility] Sofya Hightower MA Case Management [address] (Faxed diagnosis Diseases- [place] [facility] [place] [address] [place] [address], [address] [place] [address] Allergies Active Allergy Reactions Severity Noted Date Comments Codeine Rash High 04/06/2011 documented as of this encounter (statuses as of 12/02/2019) Medications Medication Sig Dispensed Refills Start Date End Date Status metFORMIN 500 mg Take 1 tablet by 0 12/02/2019 Active tablet mouth 2 (two) times daily with meals. lisinopril 20 mg 1 po once daily 0 12/02/2019 Active tablet documented as of this encounter (statuses as of 12/02/2019) Active Problems Problem Noted Date Intractable diarrhea 11/29/2014 Hypertriglyceridemia 02/06/2013 Depressive disorder 08/01/2012 Overview: ICD10 Diagnosis Term Donor Services Technician Utility History of latent syphilis 02/29/2012 Chronic hepatitis B 10/24/2011 Herpes zoster 04/06/2011 Overview: ICD10 Diagnosis Term Donor Services Technician Utility Human immunodeficiency virus (HIV) disease 04/06/2011 [...] Signs Not on filedocumented in this encounter Progress Notes Sofya Hightower MA - 12/02/2019 4:10 PM CSTReceived faxed [facility], a written authorization to release this information, signed by the patient, was attached to the request. Completed verification of diagnosis form, obtained clinic provider's signature, and faxed to [facility]. Received confirmation that fax was successful. A total of 30 minutes was taken to complete this encounter for a non-Stevo White patient. documented in this encounter Plan of Treatment Date Type Specialty Care Team Description 12/17/2019 Office Visit Infectious Disease Apolinar Smith PA [id number] [place] [address] [phone] Health Maintenance Due Date Last Done Comments [...] Effective Dates Phone Address Type AETNA AETNA [facility] C[facility] [id number] 2017-Present PPO documented as of this encounter Advance Directives Type Date Recorded Patient Rfid Analyst Explanation Advance Directives and Living 06/24/2015 10:21 AM Will Power of Crossbow Maker 06/24/2015 10:21 AM
--- OUTSIDE RECORDS SUMMARY | 2019-12-23 20:23 | XMS REPORT ---
:1980 Author Name Admin, [place] Address Unavailable Unavailable , PROBLEMS Condition Status Date Provider Notes abscess, perianal active Rupert Tiwari Diabetes mellitus, type II active Rupert Tiwari Hyperlipidemia active Rupert Tiwari Preventive health care active Rupert Tiwari ANXIETY DISORDER, UNSPECIFIED active cD Guerrero Hallucinations active Dc Guerrero Screening examination [...] Provider Location Encounter Diagnosis Ambulatory Rupert Emery [facility] [place] UNK 5 - Encounter [facility] Uzair [facility] Ramirez Stefanie 5 Ambulatory Araceli Thomson [facility] [place] UNK 0 - Encounter Medicine 0 Ambulatory Rupert Emery [facility] [place] UNK 8 - Encounter [place] [facility] Medicine 8 Ambulatory Rupert Emery [facility] [place] UNK 8 - Encounter [place] Elva Medicine Saulo Dhillon 8 Ambulatory [place] Extra Hours [facility] UNK 8 - Encounter [facility] 2019/12/2 Health Services 8 Ambulatory [place] Extra Hours [facility] UNK 8 - Encounter [facility] 8 Ambulatory Rupert Franco UNK 2 - Encounter [facility] [place] 2 MedAdherence Ambulatory Rupert Tiwari [facility] Adult UNK 9 - Encounter [place] Nique Medicine White 9 MedAdherence, Ambulatory Araceli Cotterrez [facility] Adult UNK 5 - Encounter Medicine 5 Ambulatory Rupert Emery [facility] Adult UNK 2 - Encounter [place] Jaci Medicine Brink 2 MedAdherence Ambulatory Rupert Jigneshraymundootilia Rupert Borrero UNK 8 - Encounter [place] Marni [facility] 8 MedAdherence, Ambulatory [place] Admin YES Prep UNK 1 - Encounter [facility] Behavioral 1 Health Ambulatory Rupert Emery [facility] Adult UNK 6 - Encounter [place] Naomie Medicine S [place] 6 MedAdherence Ambulatory Araceli Thomson [facility] Adult UNK 2 - Encounter Medicine 2 Ambulatory Rupert Emery [facility] Adult UNK 5 - Encounter [place] [facility] Medicine 5 Ambulatory Rupert Emery [facility] Adult UNK 1 - Encounter [place] [facility] Medicine 1 Ambulatory Caterinabryon Palafox [facility] Adult UNK 4 - Encounter Derick Meño Medicine 4 Ambulatory Rupert Emery [facility] Adult UNK 1 - Encounter [place] [facility] Medicine 1 Ambulatory Rupert Emery [facility] Adult UNK 1 - Encounter [place] Medicine 1 Ambulatory Rupert Emery [facility] Adult abscess, perianal 1 - Encounter [place] Derick Medicine Meño 1 Ambulatory Acterina [place] UNK 0 - Encounter Agustina Simpson 0 Ambulatory Rupert Emery [facility] Adult UNK 0 - Encounter [place] Medicine 0 Ambulatory Rupert Emery [facility] Adult UNK 0 - Encounter [place] [facility] Medicine 0 Ambulatory Isabel Gomez UNK 8 - Encounter [facility] 8 Ambulatory Marni Caruso [facility] [place]K 4 - Encounter MedAdherence, Medicine 4 Ambulatory K[facility] Public UNK 5 - Encounter [facility] 5 Ambulatory [facility] Behavioral UNK 2 - Encounter [facility] 2 Ambulatory [facility] UNK 8 - Encounter [facility] Lizy Mcgregor [facility] 8 Health Ambulatory Caterina Palafox [facility] Adult UNK 5 - Encounter Medicine 5 Ambulatory Rupert Emery [facility] Adult UNK 5 - Encounter [place] Medicine 5 Ambulatory Rupert Emery [facility] Adult UNK 5 - Encounter [place] Caterina Medicine Pal[place] 5 Ambulatory Rupert Emery [facility] Adult UNK 0 - Encounter [place] [facility] Medicine 0 Ambulatory Rupert Emery [facility] Adult UNK 0 - Encounter [place] [facility] Medicine 0 Ambulatory [facility] UNK 0 - Encounter [facility] Lizy Mcgregor Behavioral 0 Health Ambulatory Rupert Emery [facility] Adult UNK 0 - Encounter [facility]re [facility] [place] 0 Ambulatory Rupert Emery [facility] Adult UNK 3 - Encounter [place] Marni Medicine Josekenyettaeybelen 3 MedAdherence, Ambulatory Vanessa Borrero UNK 0 - Encounter [facility] [...] [place] Marni Sr Medicine 9 Ambulatory Rupert mEery [facility] Adult UNK 7 - Encounter [place] [facility] Medicine Marni Orin 7 Ambulatory Rupert Emery [facility] Adult UNK 2 - Encounter [place] Marni Sr Medicine 2 Ambulatory Rupert Emery [facility] Adult UNK 1 - Encounter [place] [facility] Medicine Marni Sr 1 Ambulatory Elva [facility] UNK 8 - [facility] 8 Ambulatory Denise Wilder [facility] Adult UNK 5 - Encounter Medicine 5 Ambulatory Rupert Emery [facility] Adult UNK 5 - Encounter [place] Medicine 5 Ambulatory Rupert Emery [facility] Adult UNK 5 - Encounter [place] Medicine 5 Ambulatory Rupert Emery LM Adult Myopia - OURegular 5 - Encounter [place] Caterina Medicine astigmatism, bilateral Palafox 5 Ambulatory Ashlee Verdugo [facility] Vision UNK 5 - Encounter 5 Ambulatory Rupert Emery LM Adult UNK 9 - Encounter [place] [facility] Medicine 9 Ambulatory Ashlee Verdugo [facility] Vision UNK 9 - Encounter 9 Ambulatory Nestor Bishophamzah [facility] Vision UNK 9 - Encounter 9 Ambulatory Nestor Guzman [facility] Vision UNK 9 - Encounter 9 Ambulatory Nestor Bishophamzah [facility] Vision UNK 9 - Encounter 9 Ambulatory Nestor Guzman Ashlee [facility] Vision Myopia - OURegular 9 - Encounter Ver[place]go astigmatism, bilateral 9 Ambulatory Rupert Emery C Adult UNK 7 - Encounter [place] Marni Sr Medicine 7 Ambulatory Silvia Mo [facility] Adult UNK 7 - Encounter [facility] Marni Medicine Sr 7 Ambulatory Rupert Emery [facility] [place] UNK 6 - Encounter [place] Marni Sr Medicine 6 Ambulatory Silvia Hassan [facility] Adult UNK 1 - Encounter [facility] Marni Medicine Sr 1 Ambulatory Leticia [facility] UNK 0 - Encounter Practice 0 Ambulatory Valerie Oscar [facility] UNK 0 - Encounter [place] 0 Pediatrics Ambulatory Rupert Emery [facility] [place] UNK 6 - Encounter [place] Marni Sr Medicine 6 Ambulatory Rupert Emery [facility] Adult UNK 4 - Encounter [place] Medicine 4 Ambulatory Rupert Emery [facility] Adult Hyperlipidemia 4 - Encounter [place] Caterina Medicine Palaf[place] 4 Ambulatory Rupert Emery [facility] Adult UNK 1 - Encounter [place] [facility] Medicine 1 Ambulatory Denise Wilder [facility] Adult UNK 1 - Encounter Medicine 1 Ambulatory Rupert Emery [facility] [place] UNK 0 - Encounter [place] [facility] Medicine 0 Ambulatory Camila Woodard [facility] Social UNK 2 - Encounter Services 2 Ambulatory Samantha Cast [facility] Social UNK 2 - Encounter Services 2 Ambulatory Rupert Jigneshraymundootilia Rupert [facility] Adult UNK 2 - Encounter [place] [facility] Medicine 2 Ambulatory Rupert Emery [facility] Adult UNK 2 - Encounter [place] Medicine 2 Ambulatory Rupert Michelleotilia Emery [facility] Adult Diabetes mellitus, type II 2 - Encounter [place] Caterina Medicine Pal[place] 2 Ambulatory Kasia Meserve [facility] Social UNK [...] - Encounter [facility] Services 1 Ambulatory Casa Zhang Oneil [facility] Vision UNK 5 - Encounter Casa Riggs [facility] UNK 5 - Encounter [facility] Kiel Billy [facility] 5 Health [facility] UNK 5 - Encounter [facility]an [facility] [...] Encounter Zishan Samiudd[facility] Health [facility] 1 Ambulatory Rupert Emery [facility] Adult UNK 6 - Encounter [place] [facility] Medicine 6 Ambulatory Rupert Emery [facility] Adult UNK 8 - Encounter [place] [facility] Medicine 8 Ambulatory Rupert Emery [facility] Adult UNK 6 - Encounter [place] [facility] Medicine 6 Ambulatory Rupert Jigneshpatrice Emery [facility] Adult UNK 6 - Encounter [place] Medicine 6 Ambulatory Caterina Palafox [facility] Adult UNK 6 - Encounter Medicine 6 Ambulatory Rupert Michelleotilia Emery [facility] Adult UNK 6 - Encounter [place] Medicine 6 Ambulatory Rupert Tiwari Rupert [facility] Adult Myopia - OURegular 6 - Encounter [place] Caterina Medicine astigmatism, Palafox bilateralPreventive health 6 careHyperlipidemia Ambulatory Zishan Samiuddin [facility] Behavioral UNK 5 - [facility] 5 Ambulatory Zishan Samiuddin C Behavioral UNK 4 - Encounter [facility] 4 Ambulatory Sneha Dan [facility] Adult UNK 9 - Encounter Medicine 9 Ambulatory Zishan Samiuddin [facility] Behavioral UNK 8 - Encounter Zishan Samiuddin Health 8 Ambulatory Zishan Samiuddin [facility] Behavioral UNK 8 - Encounter [facility] 8 Ambulatory Rupert Emery [facility] Adult UNK 0 - Encounter [place] [facility] Medicine 0 Ambulatory Rupert Emery [facility] Adult UNK 5 - Encounter [place] [facility] Medicine 5 [facility] ANXIETY DISORDER, UNSPECIFIED 5 - Encounter [facility] Kiel Billy Behavioral 5 Health Ambulatory Shirley Encarnacion [facility] Vision UNK 5 - Encounter 5 Ambulatory Rupert Emery [facility] UNK 6 - Encounter Karie Vega [facility] 6 Abad [facility] Ambulatory [facility]ian [facility] UNK 6 - Encounter Jin[facility]is [facility] 6 Ambulatory Zian Periuddin [facility] Behavioral UNK 6 - Encounter [facility] 6 Ambulatory Kasia Meserve [facility] Social UNK 0 - Encounter Services 0 Ambulatory Kasia Meserve [facility] Social UNK 9 - Encounter Services 9 Ambulatory Caterina Palafox [facility] UNK 6 - Encounter Julio Govea [facility] 6 Contact Center Ambulatory Shirley Encarnacion [facility] Vision UNK 4 - Encounter 4 Ambulatory [facility] Hallucinations 4 - Encounter [facility] Carlos Alberto Bowen Behavior[facility] 4 Health Ambulatory Casa Riggs C Vision UNK 4 - Encounter Casa Zhang Riggs 4 Ambulatory Casa Zhang Riggs [facility] Vision UNK 4 - Encounter Casa Cosmeyer 4 Ambulatory Casa Zhang Riggs C Vision Screening examination for 4 - Encounter Casa Riggs other specified viral Nitza Alex diseases 4 Ambulatory Nestorgaye Bishops [facility] Vision UNK 4 - Encounter 4 Ambulatory Nestorgaye Bishops [facility] Vision UNK 4 - Encounter 4 Ambulatory Nestorgaye Bishops [facility] Vision UNK 4 - Encounter 4 Ambulatory Nestorgaye Bishops [facility] Vision Myopia - OURegular 4 - Encounter Shirley Shashank astigmatism, bilateral 4 Ambulatory Wan Boggsh [facility] Adult UNK 2 - Encounter Jerome [...] Fuentes Caterina SPEC VIRAL DZPTSDHEPATITIS B, 1 Palafox Yolie CHRONIC Santiago Ambulatory Ameena Siomara [facility] [...] - Encounter [facility] 0 Ambulatory Nestor Guzman [facility] Vision UNK 0 - Encounter [facility] 0 Ambulatory Shirley Encarnacion [facility] Vision UNK 0 - Encounter 0 Ambulatory Shirley Encarnacion [facility] Vision UNK 1 - Encounter 1 Ambulatory Casa Riggs [facility] Vision SPECIAL SCREENING EXAMINATION 1 - Encounter Casa Riggs OTH SPEC VIRAL DZ Nitza Alex 1 Ambulatory Nestor Guzman [facility] Vision ASTIGMATISMMYOPIA 1 - Encounter Shirley Encarnacion 1 Ambulatory Alejandro Saenz [facility] [place] UNK 1 - Encounter Medicine 1 VITAL SIGNS Date Observation Value Provider temperature E&M 98.1 [degF] Derick Wilder " blood pressure, diastolic 98 mm[Hg] Derick Wilder " blood pressure, systolic 144 mm[Hg] Derick Wilder " pulse rate E&M 112 /min Derick Wilder " oxygen saturation, oximetry 98 % Derick Wilder " weight E&M 145 lbs. Derick Wilder " weight in kilograms E&M 65.91 kg Derick Wilder " blood pressure, site #1 left arm Derick Wilder " Blood Pressure Position 01 sitting Derick Wilder " method used to obtain blood pressure automatic Derick Wilder " temperature site oral Derick Wilder " height E&M 65 [in_i] Derick Wilder " height in centimeters E&M 165.10 cm Derick Wilder method used to obtain blood pressure automatic Lizy Balbir " Blood Pressure Position 01 sitting Lizy Balbir " blood pressure, site #1 right arm Lizy Balbir " blood pressure, diastolic 99 mm[Hg] Lizy Balbir " blood pressure, systolic 155 mm[Hg] Lizy Balbir " pulse rate E&M 91` Lizy Deionoa " weight E&M 157 lbs. Lizy Balboa " weight in kilograms E&M 71.36 kg Lizy Mcgregor " height E&M 65 [in_i] Lizy Balbir " height in centimeters E&M 165.10 cm Lizy Mcgregor BP diastolic #1 105 mm[Hg] Rupert Tiwari " BP systolic #1 171 mm[Hg] Rupert Tiwari " blood pressure, diastolic, second observation 86 mm[Hg] Rupert Tiwari " blood pressure, systolic, second observation 136 mm[Hg] Rupert Tiwari " weight E&M 153 lbs. Caterina Palafox " weight in kilograms E&M 69.55 kg Caterina Palafox " oxygen saturation, oximetry 98 % Caterina Palafox " method used to obtain blood pressure automatic Caterina Palafox " Blood Pressure Position 01 sitting Caterina Palafox " blood pressure, site #1 left arm Caterina Palafox " blood pressure, diastolic 86 mm[Hg] Rupert Tiwari " blood pressure, systolic 136 mm[Hg] Rupert Tiwari " respiratory rate E&M 16 /min Caterina Palafox " pulse rate E&M 102 /min Caterina Palafox " temperature site oral Caterina Palafox " temperature E&M 98.1 [degF] Caterina Palafox " height E&M 65 [in_i] Caterina Palafox " height in centimeters E&M 165.10 cm Caterina Palafox method used to obtain blood pressure automatic Lizy Balboa " Blood Pressure Position 01 sitting Lizy Deionoa " blood pressure, site #1 right arm Lizy Deionoa " blood pressure, diastolic 89 mm[Hg] Lizy Deionoa " blood pressure, systolic 166 mm[Hg] Lizy Balboa " pulse rate E&M 83 /min Lizy Deionoa " weight E&M 161 lbs. Lizy Deionoa " weight in kilograms E&M 73.18 kg Lizy Deionoa " height E&M 65 [in_i] Lizy Balboa " height in centimeters E&M 165.10 cm Lizy Balboa blood pressure, diastolic 90 mm[Hg] Caterina Palafox " blood pressure, systolic 139 mm[Hg] Caterina Palafox " method used to obtain blood pressure automatic Caterina Palafox " Blood Pressure Position 01 sitting Caterina Palafox " blood pressure, site #1 left arm Caterina Palafox " respiratory rate E&M 16 /min Caterina Palafox " pulse rate E&M 66 /min Caterina Palafox " oxygen saturation, oximetry 98 % Caterina Palafox " temperature site tympanic Caterina Palafox " temperature E&M 98.1 [degF] Caterina Palafox " height E&M 65 [in_i] Caterina Palafox " height in centimeters E&M 165.10 cm Caterina Palafox " weight E&M 161 lbs. Caterina Palafox " weight in kilograms E&M 73.18 kg Caterina Palafox blood pressure, diastolic 87 mm[Hg] Caterina Palafox " blood pressure, systolic 138 mm[Hg] Caterina Palafox " pulse rate E&M 76 /min Caterina Palafox " respiratory rate E&M 16 /min Caterina Palafox " method used to obtain blood pressure automatic Caterina Palafox " Blood Pressure Position 01 sitting Caterina Palafox " blood pressure, site #1 left arm Caterina Palafox " temperature site tympanic Caterina Palafox " oxygen saturation, oximetry 97 % Caterina Palafox " temperature E&M 98.7 [degF] Caterina Palafox " weight E&M 161.80 lbs. Caterina Palafox " weight in kilograms E&M 73.55 kg Caterina Palafox " height E&M 65 [in_i] Caterina Palafox " height in centimeters E&M 165.10 cm Caterina Palafox method used to obtain blood pressure manual Caterina Palafox " blood pressure, diastolic 100 mm[Hg] Caterina Palafox " blood pressure, systolic 138 mm[Hg] Caterina Palafox " Blood Pressure Position 01 sitting Caterina Palafox " blood pressure, site #1 right arm Caterina Palafox " temperature site tympanic Caterina Palafox " pulse rate E&M 103 /min Caterina Palafox " respiratory rate E&M 16 /min Caterina Palafox " oxygen saturation, oximetry 98 % Caterina Palafox " temperature E&M 99.5 [degF] Caterina Palafox " weight E&M 151 lbs. Caterina Palafox " weight in kilograms E&M 68.64 kg Caterina Palafox " height E&M 65 [in_i] Caterina Palafox " height in centimeters E&M 165.10 cm Caterinamichael Palafox method used to obtain blood pressure automatic Kiel Billy " Blood Pressure Position 01 sitting Kiel Billy " blood pressure, site #1 right arm Kiel Billy " blood pressure, diastolic 88 mm[Hg] Kiel Billy " blood pressure, systolic 135 mm[Hg] Kiel Billy " pulse rate E&M 92 /min Kiel Billy " weight E&M 175.13 lbs. Kiel Billy " weight in kilograms E&M 79.60 kg Kiel Billy " height E&M 65 [in_i] Kiel Billy " height in centimeters E&M 165.10 cm Kiel Billy method used to obtain blood pressure manual Caterina Palafox " blood pressure, diastolic 80 mm[Hg] Caterina Palafox " blood pressure, systolic 130 mm[Hg] Caterina Palafox " pulse rate E&M 85 /min Caterina Palafox " Blood Pressure Position 01 sitting Caterinamichael Palafox " blood pressure, site #1 right arm Caterina Palafox " temperature site tympanic Caterina Palafox " oxygen saturation, oximetry 98 % Caterina Palafox " temperature E&M 97.5 [degF] Caterina Palafox " weight E&M 175 lbs. Caterina Palafox " weight in kilograms E&M 79.55 kg Caterina Palafox " height E&M 65 [in_i] Caterina Palafox " height in centimeters E&M 165.10 cm Caterina Palafox method used to obtain blood pressure automatic Kiel Billy " Blood Pressure Position 01 sitting Kiel Billy " blood pressure, site #1 right arm Kiel Billy " blood pressure, diastolic 87 mm[Hg] Kiel Billy " blood pressure, systolic 138 mm[Hg] Kiel Billy " pulse rate E&M 96 /min Kiel Billy " weight E&M 175.25 lbs. Kiel Billy " weight in kilograms E&M 79.66 kg Kiel Billy " height E&M 65 [in_i] Kiel Billy " height in centimeters E&M 165.10 cm Kiel Billy method used to obtain blood pressure automatic Carlos Alberto Andrés " Blood Pressure Position 01 sitting Carlos Albreto Andrés " blood pressure, site #1 left arm Carlos Alberto Andrés " blood pressure, diastolic 90 mm[Hg] Carlos Alberto Andrés " blood pressure, systolic 132 mm[Hg] Carlos Alberto Andrés " pulse rate E&M 89 /min Carlos Alberto Bowen " height E&M 65 [in_i] Carlos Alberto Andrés " height in centimeters E&M 165.10 cm Carlos Alberto Bowen blood pressure, diastolic 84 mm[Hg] Caterina Palafox " blood pressure, systolic 132 mm[Hg] Caterina Palafox " method used to obtain blood pressure automatic Caterina Palafox " Blood Pressure Position 01 sitting Caterina Palafox " blood pressure, site #1 left arm Caterina Palafox " temperature site tympanic Caterina Palafox " pulse rate E&M 97 /min Caterina Palafox " temperature E&M 97.5 [degF] Caterina Palafox " oxygen saturation, oximetry 98 % Caterina Palafox " weight E&M 181.60 lbs. Caterina Palafox " weight in kilograms E&M 82.55 kg Caterina Palafox " height E&M 65 [in_i] Caterina Palafox " height in centimeters E&M 165.10 cm Caterina Palafox ALLERGIES Allergy Name Onset Date Reaction Criticality Status CODEINE rash Unable to assess criticality active REASON FOR REFERRAL No Information Available RESULTS Date Observation Value Provider Reference Interpretation Location Range Treponema pallidum Reactive [facility] Non Abnormal 01/03 antibodies, by Reactive particle agglutination " rapid plasma 1:2 [facility] NonRea<1:1 High reagin antibody, serum " HIV-1RNA, serum, 500 /mL [facility] by PCR, quantitative " LDL cholesterol, 89 mg/dL [facility] 0-99 serum " very low density 54 mg/dL [facility] 5-40 High lipoproteins " HDL cholesterol, 29 mg/dL [facility] >39 Low serum " triglyceride, 272 mg/dL [facility] 0-149 High serum, fasting " cholesterol, serum 172 mg/dL [facility] 100-199 " alanine 63 1/L [facility] 0-44 High aminotransferase (SGPT), serum " aspartate 37 1/L [facility] 0-40 aminotransferase (SGOT), serum " alkaline 80 1/L [facility] 39-117 phosphatase, serum " bilirubin, serum, 0.6 mg/dL [facility] 0.0-1.2 total " albumin/globulin 1.2 [facility] 1.2-2.2 ratio, serum " globulin, serum 3.7 [facility] 1.5-4.5 " albumin, serum 4.3 g/dL [facility] 3.5-5.5 " protein, total, 8.0 g/dL [facility] 6.0-8.5 serum " calcium, serum 8.8 mg/dL [facility] 8.7-10.2 " carbon dioxide, 20 mmol/L [facility] 20-29 venous blood " chloride, serum 100 mmol/L [facility] 96-106 " potassium, serum 4.0 mmol/L [facility] 3.5-5.2 " sodium, serum 134 mmol/L [facility] 134-144 " urea 12 [facility] 9-20 nitrogen/creatinin e ratio, serum " eGFR if 101 [facility] >59 [place] mL/min/((173/1 00).m2) " Estimated 88 [facility] >59 Gl[place] mL/min/((173/1 Filtration Rate 00).m2) (calc) " creatinine, serum 1.05 mg/dL [facility] 0.76-1.27 " urea nitrogen, 13 mg/dL [facility] 6-24 blood " blood glucose, 327 mg/dL [facility] 65-99 High random " immature 0 % [facility] Not Estab. granulocytes, percentage of total cells, blood " basophil count, 0.0 x10E3/uL [facility] 0.0-0.2 absolute " Eosinophil 0.1 X10E3/UL [facility] 0.0-0.4 Absolute Count " monocyte count, 0.2 X10E3/UL [facility] 0.1-0.9 blood, automated " lymphocyte count, 1.6 X10E3/UL [facility] 0.7-3.1 blood, automated " Absolute 3.9 X10E3/UL [facility] 1.4-7.0 Neutrophils " basophils as 0 % [facility] Not Estab. percent of blood leukocytes " eosinophils as 2 % [facility] Not Estab. percent of blood leukocytes " monocytes as 4 % [facility] Not Estab. percent of blood leukocytes " lymphocytes as 28 % [facility] Not Estab. percent of blood leukocytes " neutrophils as 66 % [facility] Not Estab. percent of blood leukocytes " platelet count 177 X10E3/UL [facility] 150-450 " red blood cell 14.7 % [facility] 12.3-15.4 distribution width " mean corpuscular 34.5 G/DL [facility] 31.5-35.7 hemoglobin concentration, RBC " mean corpuscular 29.3 pg [facility] 26.6-33.0 hemoglobin, RBC " mean corpuscular 85 fL [facility] 79-97 volume, RBC " hematocrit, blood 44.0 % [facility] 37.5-51.0 " hemoglobin, blood 15.2 g/dL [facility] 13.0-17.7 " erythrocyte (RBC) 5.19 X10E6/UL [facility] 4.14-5.80 count " leukocyte count, 5.9 X10E3/UL [facility] 3.4-10.8 blood " CD4/CD8 ratio 0.81 [facility] 0.92-3.72 Low " T-suppressor cells 46.6 % [facility] 12.0-35.5 High (CD8) as percent of blood lymphocytes " absolute CD8 746 [facility] 109-897 " T-helper cells 37.8 % [facility] 30.8-58.5 (CD4) as percent of blood lymphocytes " T-helper cells 605 /UL [facility] 359-1519 (CD4) count 2019/0 hepatitis C <0.1 [facility] 0.0-0.9 04/26 antibody, [...] serum " eGFR if 123 [facility] >59 [place] mL/min/((173/1 00).m2) " Estimated 106 [facility] >59 [...] count LDL cholesterol, 62 mg/dL [facility] 0-99 6 serum " very low density 66 mg/dL [facility] 5-40 High lipoproteins " HDL cholesterol, 27 mg/dL [facility] >39 Low serum " triglyceride, 331 mg/dL [facility] 0-149 High serum, fasting " cholesterol, serum 155 mg/dL [facility] 786-325 9471/1 rapid plasma REACTIVE [facility] NON-REACTIV Abnormal [facility] 12/26 reagin antibody, E Diagnostic serum [facility] [address] [facility] [phone] [address] Elijah Wilson ge;RGA [facility] [address] [facility] [phone] Anne Hussein " Treponema pallidum REACTIVE [facility] NON-REACTIV Abnormal [facility] Ab, serum [facility] [address] [place] [address] [place] [phone] [address] Elijah gaspar;RGA [facility] [address] [facility] [place] [phone] Anne Hussein " basophils as 0.4 % [facility] Normal [facility] percent of blood Diagnostic leukocytes -[facility] [address] [place] [phone] [address] Elijah gaspar;RGA [facility] [address] [facility] [place] [phone] Anne Hussein " eosinophils as 1.2 % [facility] Normal [facility] percent of blood Diagnostic leukocytes -[facility] [address] [place] [phone] [address] Elijah gaspar;RGA [facility] [address] [facility] [phone] Anne Hussein " monocytes as 4.2 % [facility] Normal [facility] percent of blood Diagnostic leukocytes [facility] [address] [place] [phone] [address] Elijah gaspar;RGA [facility] [address] [place] [phone] Anne Hussein " lymphocytes as 18.9 % LinkLogic Normal [facility] percent of blood Diagnostic leukocytes [facility] [address] [place] [address] [place] [address] [address] Eliajh gaspar;R[facility] Diagnostic [facility] [address] [facility] [address] Anne Hussein " neutrophils as 75.3 % LinkLogic Normal [facility] percent of blood Diagnostic leukocytes -[facility] [address] [place] [address] [place] [address] [address] Elijah gaspar;RGA [facility] [address] [facility] [place] [address] Anne Hussein " basophil count, 33 cells/uL LinkLogic 0-200 Normal [facility] absolute Diagnostic [facility] [address] [place] [phone] [address] Elijah gaspar;RGA [facility] [address] [facility] [place] [address] Anne Hussein " Absolute 100 cells/mcL LinkLogic 15-500 Normal [facility] Eosinophil count Diagnostic [facility] [address] [facility] [place] [place] [address] Dr. Elijah gaspar;RGA [facility] [address] [facility] [place] [facility] [address] Anne Hussein " Absolute Monocyte 349 cells/mcL LinkLogic 200-950 Normal [facility] count Diagnostic [facility] [address] [place] [address] [place] [address] Dr[address] Elijah gaspar;RGA [facility] [address] [facility] [place] [facility] [address] Anne Hussein " Absolute 6250 cells/mcL LinkLogic 5789-9382 Normal [facility] Neutrophil count Diagnostic [facility] [address] [place] [address] [place] [address] [address] Elijah gaspar;RGA [facility] [address] [place] [address] Anne Hussein" mean platelet 11.2 fL LinkLogic 7.5-12.5 Normal [facility] volume Diagnostic [facility] [address] [facility] [place] [place] [address] Dr[address] Elijah gaspar;RGA [facility] [address] [facility] [place] [facility] [address] Anne Hussein " platelet count 230 LinkLogic 140-400 Normal [facility] THOUSAND/UL Diagnostic [facility] [address] [facility] [address] Dr. Elijah gaspar;RGA [facility] [address] [facility] [place] [facility] [address] Anne Hussein " red blood cell 13.1 % LinkLogic 11.0-15.0 Normal [facility] distribution width Diagnostic [facility] [address] [facility] [place] [place] [address] Dr[address] Elijah gaspar;RGA [facility] [address] [facility] [place] [facility] [address] Anne Hussein " mean corpuscular 35.4 G/DL LinkLogic 32.0-36.0 Normal [facility] hemoglobin Diagnostic concentration, RBC [facility] [address] [facility] [address] Dr[address] Elijah gaspar;RGA [facility] [address] [place] [address] Anne Hussein" mean corpuscular 31.2 pg LinkLogic 27.0-33.0 Normal [facility] hemoglobin, RBC Diagnostic [facility] [address] [place] [address] [address] Elijah gaspar;RGA [facility] [address] [place] [address] Anne Hussein" mean corpuscular 88.1 fL LinkLogic 80.0-100.0 Normal [facility] volume, RBC Diagnostic [facility] [address] [place] [address] [address] Elijah gaspar;RGA [facility] [address] [place] [address] Anne Hussein" hematocrit, blood 45.7 % LinkLogic 38.5-50.0 Normal [facility] Diagnostic [facility] [address] [place] [phone] [address] Elijah gaspar;RGA [facility] [address] [place] [address] Anne Hussein" hemoglobin, blood 16.2 g/dL LinkLogic 13.2-17.1 Normal [facility] Diagnostic [facility] [address] [place] [address] [address] Elijah gaspar;RGA [facility] [address] [place] [address] Anne Hussein" erythrocyte (RBC) 5.19 LinkLogic 4.20-5.80 Normal [facility] count MILLION/UL Diagnostic [facility] [address] [place] [address] [address] Elijah gaspar;RGA [facility] [address] [place] [address] Anne Hussein" leukocyte count, 8.3 LinkLogic 3.8-10.8 Normal [facility] blood THOUSAND/UL Diagnostic [facility] [address] [place] [phone] [address] Elijah gaspar;RGA [facility] [address] [place] [address] Anne Hussein " lymphocytes, 1569 CELLS/UL LinkLogic 850-3900 Normal [facility] absolute Diagnostic [facility] [address] [place] [address] [address] Elijah gaspar;RGA [facility] [address] [place] [address] Anne Hussein" CD4/CD8 ratio 1.52 LinkLogic 0.86-5.00 Normal [facility] Diagnostic [facility] [address] [place] [phone] [address] Elijah gaspar;RGA [facility] [address] [place] [address] Anne Hussein" absolute CD8 436 LinkLogic 180-1170 Normal [facility] Diagnostic [facility] [address] [place] [address] [address] Elijah gaspar;RGA [facility] [address] [place] [address] Anne Hussein " T-suppressor cells 29 % LinkLogic 12-42 Normal [facility] (CD8) as percent Diagnostic of blood [facility] lymphocytes Lab [address] [place] [phone] [address] Elijah gaspar;RGA [facility] [address] [place] [address] Anne Hussein " T-helper cells 663 CELLS/UL LinkLogic 490-1740 Normal [facility] (CD4) count Diagnostic [facility] [address] [place] [phone] [address] Elijah gaspar;RGA [facility] [address] [place] [address] Anne Hussein " T-helper cells 44 % LinkLogic 30-61 Normal [facility] (CD4) as percent Diagnostic of blood [facility] lymphocytes Lab [address] [place] [phone] [address] Elijah gaspar;RGA [facility] [address] [place] [address] Anne Hussein" alanine 79 1/L LinkLogic 9-46 High [facility] aminotransferase Diagnostic (SGPT), serum [facility] [address] [place] [phone] [address] Elijah gaspar;RGA [facility] [address] [place] [phone] Anne Hussein" aspartate 51 1/L LinkLogic 10-40 High [facility] aminotransferase Diagnostic (SGOT), serum [facility] [address] [place] [address] [place] [address] Dr[address] Elijah gaspar;RGA [facility] [address] [place] [address] Anne Hussein" alkaline 87 1/L LinkLogic 40-115 Normal [facility] phosphatase, serum Diagnostic [facility] [address] [place] [address] [place] [address] Dr[address] Elijah gaspar;RGA [facility] [address] [place] [address] Anne Hussein" bilirubin, serum, 0.7 mg/dL LinkLogic 0.2-1.2 Normal [facility] total Diagnostic [facility] [address] [place] [address] [place] [address] Dr[address] Elijah gaspar;RGA [facility] [address] [place] [address] Anne Hussein" albumin/globulin 1.7 (calc) LinkLogic 1.0-2.5 Normal [facility] ratio, serum Diagnostic [facility] [address] [place] [address] [place] [address] Dr[address] Elijah gaspar;RGA [facility] [address] [place] [phone] Anne Hussein" globulins, serum, 2.6 G/DL LinkLogic 1.9-3.7 Normal [facility] total (CALC) Diagnostic [facility] [address] [place] [address] [place] [address] Dr[address] Elijah gaspar;RGA [facility] [address] [place] [phone] Anne Hussein" albumin, serum 4.4 g/dL LinkLogic 3.6-5.1 Normal [facility] Diagnostic [facility] [address] [place] [address] [place] [address] Dr[address] Elijah gaspar;RGA [facility] [address] [place] [address] Anne Hussein" protein, total, 7.0 g/dL LinkLogic 6.1-8.1 Normal [facility] serum Diagnostic [facility] [address] [place] [phone] [address] Elijah gaspar;RGA [facility] [address] [place] [address] Anne Hussein" calcium, serum 9.1 mg/dL LinkLogic 8.6-10.3 Normal [facility] Diagnostic [facility] [address] [place] [phone] [address] Elijah gaspar;RGA [facility] [address] [place] [address] Anne Hussein" carbon dioxide, 24 mmol/L LinkLogic 20-32 Normal [facility] venous blood Diagnostic [facility] [address] [place] [phone] [address] Elijah gaspar;RGA [facility] [address] [place] [address] Anne Hussein" chloride, serum 105 mmol/L LinkLogic 98-110 Normal [facility] Diagnostic [facility] [address] [place] [address] [address] Elijah gaspar;RGA [facility] [address] [place] [phone] Anne Hussein" potassium, serum 3.9 mmol/L LinkLogic 3.5-5.3 Normal [facility] Diagnostic [facility] [address] [place] [phone] [address] Elijah gaspar;RGA [facility] [address] [place] [address] Anne Hussein" sodium, serum 139 mmol/L LinkLogic 135-146 Normal [facility] Diagnostic [facility] [address] [place] [phone] [address] Elijah gaspar;RGA [facility] [address] [place] [address] Anne Hussein" urea NOT APPLICABLE LinkLogic 6-22 [facility] nitrogen/creatinin (calc) Diagnostic e ratio, serum [facility] [address] [place] [phone] [address] Elijah gaspar;RGA [facility] [address] [place] [address] Anne Hussein " eGFR if 114 LinkLogic > OR=60 Normal [facility] Nigerien mL/min/((173/1 Diagnostic 00).m2) [facility] [address] [place] [phone] [address] Elijah gaspar;RGA [facility] [address] [place] [address] Anne Hussein " Estimated 98 LinkLogic > OR=60 Normal [facility] Glomerular mL/min/((173/1 Diagnostic Filtration Rate 00).m2) [facility] (calc) Lab [address] [place] [phone] [address] Elijah gaspar;RGA [facility] [address] [place] [phone] Anne Hussein " creatinine, serum 0.96 mg/dL LinkLogic 0.60-1.35 Normal [facility] Diagnostic [facility] [address] [place] [phone] Dr[address] Elijah gaspar;RGA [facility] [address] [place] [address] Anne Hussein " urea nitrogen, 10 mg/dL LinkLogic 7-25 Normal [facility] blood Diagnostic [facility] [address] [place] [phone] [address] Elijah gaspar;RGA [facility] [address] [place] [address] Anne Hussein " blood glucose, 217 mg/dL LinkLogic 65-99 High [facility] random Diagnostic [facility] [address] [place] [phone] [address] Elijah gapsar;RGA [facility] [address] [place] [address] Anne Hussein " cholesterol, 154 MG/DL LinkLogic <130 High [facility] non-HDL, total (CALC) Diagnostic [facility] [address] [place] [phone] [address] Elijah gaspar;RGA [facility] [address] [facility] [place] [facility] [address] Anne Hussein " cholesterol/HDL 7.4 (calc) LinkLogic <5.0 High [facility] ratio, serum, Diagnostic percent [facility] [address] [place] [phone] [address] Elijah gaspar;RGA [facility] [address] [place] [phone] Anne Hussein " LDL cholesterol, LDL LinkLogic [facility] serum cholesterol Diagnostic not [facility] calculated. Lab [facility] Triglyceride [place] le... mg/dL Blvd (calc) [facility] [address] Dr[address] Elijah gaspar;RGA [facility] [address] [place] [phone] Anne Hussein " triglyceride, 407 mg/dL LinkLogic <150 High [facility] serum, fasting Diagnostic [facility] [address] [place] [address] [place] [address] Dr[address] Elijah gaspar;RGA [facility] [address] [place] [address] Anne Hussein " HDL cholesterol, 24 mg/dL LinkLogic >40 Low [facility] serum Diagnostic [facility] [address] [place] [phone] [address] Elijah gaspar;RGA [facility] [address] [place] [phone] Anne Hussein " cholesterol, serum 178 mg/dL LinkLogic <200 Normal [facility] Diagnostic [facility] [address] [place] [address] [place] [address] Dr[address] Elijah gaspar;RGA [facility] [address] [place] [address] Anne Hussein HIV-1 RNA (log 10) <1.30 DETECTED LinkLogic NOT Abnormal [facility] 2/20 Log copies/mL DETECTED Diagnostic [facility] [address] [place] [phone] [address] Elijah gaspar " HIV-1RNA, serum, <20 DETECTED LinkLogic NOT Abnormal [facility] by PCR, copies/mL DETECTED Diagnostic quantitative [facility] [address] [facility] [place] [address] [address] Elijah Wilson HIV-1RNA, serum, <20 copies/mL LinkLogic 05/21 by [...] serum " eGFR if 101 LinkLogic >59 Nigerien mL/min/((173/1 00).m2) " Estimated 87 LinkLogic >59 [...] serum " eGFR if 99 LinkLogic >59 Nigerien mL/min/((173/1 00).m2) " Estimated 86 LinkLogic >59 [...] serum " eGFR if 127 LinkLogic >59 Nigerien mL/min/((173/1 00).m2) " Estimated 110 LinkLogic >59 [...] serum " eGFR if 107 LinkLogic >59 Nigerien mL/min/((173/1 00).m2) " Estimated 93 LinkLogic >59 [...] serum " eGFR if 121 LinkLogic >59 Nigerien mL/min/((173/1 00).m2) " Estimated 105 LinkLogic >59 [...] LinkLogic 359-1519 (CD4) count hepatitis A Reactive 04/15 antibody, total [place] hepatitis B Non-reactive 04/15 surface antibody [place] T-helper cells 42 % Rupert 04/15 (CD4) as percent [place] of blood lymphocytes HIV-1RNA, serum, <20 [facility] 04/15 by PCR, [place] quantitative T-helper cells 677 uL [facility] 04/15 (CD4) count [place] toxoplasma gondii <3 04/15 antibody, IgG [place] rapid plasma 1:2 04/15 reagin antibody, [place] serum Hepatitis C virus Not-detected 04/15 (HCV) RNA, PCR, [place] quantitative hepatitis C Non-reactive 04/15 antibody, serum [place] hepatitis B reactive 04/15 surface antigen [place] protein, total, 7.6 g/dL [facility] 04/15 serum [place] " albumin, serum 4.0 g/dL [facility] [place] bilirubin, serum, 0.5 mg/dL [facility] 04/15 total [place] " alanine 103 1/L [facility] aminotransferase [place] (SGPT), serum " aspartate 54 1/L [facility] aminotransferase [place] (SGOT), serum erythrocyte (RBC) 5.26 10*6/mm3 [facility] 04/[address] [facility] platelet count 228 10*3/mm3 [facility] 04/[address] [facility] " hematocrit, blood 46.8 % [facility] hemoglobin, blood 16.5 g/dL [facility] 04/[address] [facility] " leukocyte count, 0.74 10*3/mm3 [facility] triglyceride, 330 mg/dL [facility] 04/15 serum, fasting [facility]" LDL cholesterol, 88 mg/dL [facility] serum [facility]" HDL cholesterol, 23 mg/dL [facility] serum [facility] cholesterol, serum 153 mg/dL [facility] 04/[address] [facility] creatinine, serum 0.9 mg/dL [facility] 04/15 [facility]" urea nitrogen, 10 mg/dL [facility]" potassium, serum 4.1 mmol/L [facility] sodium, serum 142 mmol/L [facility] 04/[address] [facility] HIV-1RNA, serum, 75 /mL [facility] 02/28 by PCR, [facility] quantitative " T-helper cells 783 uL [facility] (CD4) count [facility] HISTORY OF IMMUNIZATIONS No Information Available HISTORY OF MEDICATION USE Medication Instructions Dates Provider Comments ANTABUSE 250 MG ORAL 1 By Mouth Every Day [facility] METFORMIN HCL 500 MG 1 by mouth twice a Rupert Martinezk ORAL TABLET day NICOTINE -14-7 Sneha Hurst MG/24HR TRANSDERMAL KIT LEXAPRO 10 MG ORAL 1 By Mouth Every Day [facility] TABLET RISPERDAL 2 MG ORAL 1 By Mouth at bedtime - Zian Samiuddin TABLET LISINOPRIL 20 MG TAKE 1 TABLET BY Naomie S [place] TABLET MOUTH EVERY DAY [facility] COMPLERA TAKE ONE TABLET BY Naomie S [place] MOUTH ONCE DAILY WITH [facility] FOOD. STORE IN ORIGINAL BOTTLE AT ROOM TEMPERATURE. SOCIAL HISTORY Date Observation Value Provider drug use, illicit Never Derick Wilder " alcohol use Currently Derick Wilder " social history E&M Single. N Derick Wilder ot homeless. Born in [facility]. City: [place]. State: [place]. E mployed full-time. [employer] . Highest education level: some college. S ex at : Male. Sexual orientation: Botello. Gender identity: Male. Gender of partner(s): Male. Age of first sexual intercourse: 16. Sexually Active: No. d riven " social history reviewed E&M reviewed today Derick Wilder " sexual orientation [place] Derick Wilder " assessment of health Adequate Derick Wilder literacy ([employer] 2014 Standards, 3C10) " passive cigarette smoke No Derick Wilder exposure " smoking status former smoker Derick Wilder " Exercise Program Referral Pool Wilder " Weight Management Counseling Pool Wilder Provided " Nutrition intervention Pool Wilder time of call 04/25/2019 11:55 AM Agustina Simpson time of call 02/08/2019 1:57 PM Kelli Lyles smoking status former smoker Dc Cesar sexual orientation [place] Rupert Tiwari " assessment of health Adequate Caterina Palafox literacy ([employer] 2014 Standards, 3C10) " drug use, illicit Never Caterina Palafox " alcohol use Currently Caterina Palafox " smoking status former smoker Caterina Palafox " social history E&M Single. N Caterina Palafox ot homeless. Born in [facility]. City: [place]. State: [place]. E mployed full-time. [employer] . Highest education level: some college. S ex at : Male. Sexual orientation: Botello. Gender identity: Male. Gender of partner(s): Male. Age of first sexual intercourse: 16. Sexually Active: No. d riven " social history reviewed E&M reviewed today Caterina Palafox " Exercise Program Referral T Caterina Palafox " Weight Management Counseling T Caterina Palafox Provided " Nutrition intervention T Caterina Palafox smoking status former smoker Dc Laarjose c sexual orientation [place] Rupert Karie " drug use, illicit Never Caterina Palafox " alcohol use Currently Caterina Palafox " social history E&M Single. N Caterina Palafox ot homeless. Born in [facility]. City: [place]. State: [place]. E mployed full-time. [employer] . Highest education level: some college. S ex at : Male. Sexual orientation: Botello. Gender identity: Male. Gender of partner(s): Male. Age of first sexual intercourse: 16. Sexually Active: No. d gina " social history reviewed E&M reviewed today Caterina Palafox " passive cigarette smoke No Caterina Palafox exposure " smoking status former smoker Caterina Palafox " assessment of health Adequate Caterina Palafox literacy ([employer] 2014 Standards, 3C10) " Exercise Program Referral T Caterina Palafox " Weight Management Counseling T Caterina Palafox Provided " Nutrition intervention T Caterina Palafox sexual orientation [place] Rupert Tiwari " drug use, illicit Never Caterina Palafox " alcohol use Currently Caterina Palafox " social history E&M Single. N Caterina Palafox ot homeless. Born in [facility]. City: [place]. State: [place]. E mployed full-time. [employer] . Highest education level: some college. S ex at : Male. Sexual orientation: Botello. Gender identity: Male. Gender of partner(s): Male. Age of first sexual intercourse: 16. Sexually Active: No. d gina " social history reviewed E&M reviewed today Caterina Palafox " passive cigarette smoke No Caterina Palafox exposure " smoking status former smoker Caterina Palafox " assessment of health Adequate Caterina Palafox literacy ([employer] 2014 Standards, 3C10) smoking, advice to quit Yes Rupert Tiwari " Exercise Program Referral T Caterina Palafox " Weight Management Counseling T Caterina Palafox Provided " Nutrition intervention T Caterina Palafox " assessment of health Adequate Caterina Palafox literacy ([employer] 2014 Standards, 3C10) " passive cigarette smoke No Caterina Palafox exposure " smoking status current every day smoker Caterina Palafox " social history E&M Single. N Caterina Palafox ot homeless. Born [place]. City: [place]. State: [place]. E mployed full-time. [employer] . Highest education level: some college. S ex at : Male. Sexual orientation: Botello. Gender identity: Male. Gender of partner(s): Male. Age of first sexual intercourse: 16. Sexually Active: No. d gina " social history reviewed E&M reviewed today Caterina Palafox " alcohol use Currently Caterina Palafox smoking status current every day smoker Dc Guerrero sexual orientation Rosmery Tiwari " smoking, advice to quit Yes Rupert Tiwari " Exercise Program Referral Pool Tiwari " Weight Management Counseling T Rupert Tiwari Provided " Nutrition intervention T Rupert Tiwari " alcohol use Currently Caterina Palafox " social history E&M Single. N Caterina Palafox ot homeless. Born in [facility]. City: [place]. State: [place]. E mployed full-time. [employer] . Highest education level: some college. S ex at : Male. Sexual orientation: Botello. Gender identity: Male. Gender of partner(s): Male. Age of first sexual intercourse: 16. Sexually Active: No. kaci fuentes " social history reviewed E&M reviewed today Caterina Palafox " passive cigarette smoke No Caterina Palafox exposure " smoking status current every day smoker Caterina Palafox smoking/tobacco cessation, Education done, Cessation Sneha Dan patient education and information provided counseling " tobacco use (cigarettes, Currently Sneha Hurst cigar, chew, pipe) " smoking status current some day smoker Sneha Dan smoking status current some day smoker Dc Guerrero time of call 07/12/2016 4:28 PM Maribeth Abad drug use, illicit Never Dc Larajose c " alcohol use, frequency few times per month Jinelmer Larajose c " alcohol use Currently Dc Guerrero " smoking status current some day smoker Dc Larajose c " home/family situation, LIves with sister and his Dc Guerrero assessment father and her 2 sons.Counts on them for work. " family support Grew up in a two parent Dc Guerrero family with a younger sister. 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 sexual orientation Rosmery Encarnacion alcohol use, number maximum 9 drinks per month Rupert Tiwari drinks per occasion " Exercise Program Referral Pool Tiwari " Weight Management Counseling Pool Tiwari Provided " Nutrition intervention Pool Tiwari " drug use, illicit Never Caterina Palafox " alcohol use, frequency few times per month Caterinamichael Palafox " alcohol use Currently Caterinamichael Palafox " social history reviewed E&M reviewed today Caterina Palafox " social history E&M Single. N Caterina Palafox ot homeless. Born in [facility]. City: [place]. State: [place]. E mployed full-time. [employer] . Highest education level: some college. S ex at : Male. Sexual orientation: Botello. Gender identity: Male. Gender of partner(s): Male. Age of first sexual intercourse: 16. Sexually Active: No. d bradleyen " sexual orientation Botello Caterina Palafox " sex at Male Caterina Palafox " Occupation #1 [employer] Caterina Palafox " patient considered to be No Caterina Palafox homeless " passive cigarette smoke No Caterinamichael Palafox exposure " smoking status former smoker Rupert [...] judgment " insight (mental status exam) good Dc Guerrero " Mental Status Exam: adequate fund of Dc Guerrero intelligence information, intact memory processes, oriented to person, oriented to place, oriented to time, oriented to situation, oriented to reality, average " hallucinations none Dc Guerrero " thought content (mental lucid Dc Guerrero status exam) (E&M) " mental status assessment, goal-directed, logical Dc Guerrero process " mental status assessment, alert, attentive, [...] affect " Generalized Anxiety Disorder 0 Caterina Palafox Questionnaire - Question 2 " Generalized Anxiety Disorder 0 Caterina Palafox Questionnaire - Question 1 mental status examination: alert and oriented to Rupert Nemecek orientation E&M person, place, and time " assessment of mood and affect good eye contact, normal Rupert Nemecek E&M affect " Generalized Anxiety Disorder 0 Caterina Palafox Questionnaire - Question 2 " Generalized Anxiety Disorder 0 Caterina Palafox Questionnaire - Question 1 mental status examination: alert and oriented to Rupert Nemecek orientation E&M person, place, and time " assessment of mood and affect good eye contact, normal Rupert Nemecek E&M affect " Generalized Anxiety Disorder 0 Caterina Palafox Questionnaire - Question 2 " Generalized Anxiety Disorder 0 Caterina Palafox Questionnaire - Question 1 mental status assessment, [...] affect " Generalized Anxiety Disorder 0 Caterina Palafox Questionnaire - Question 2 " Generalized Anxiety Disorder 0 Caterina Palafox Questionnaire - Question 1 mental status assessment, [...] " mental status assessment, alert, attentive, clear Migelan Cesar sensorium " affect (mental status exam) congruent, euthymic, normal Migelan Samiuddin intensity, normal range " mood (mental status exam) pleasant Zishan Samiuddin " mental status assessment, normal flow, normal pace, Ziperryan Samiuddin speech activity normal pressure, normal rate, normal tone, normal volume, spontaneous " mental status assessment, normal gait, normal posture Dc Albaradoijose c motor activity " behavior (mental status exam) appropriate, candid, Dc Samiuddin cooperative, good eye contact, polite, responsive " mental appearance (mental adequate hygiene, Migelan Samiuddin status exam) appropriate dress, looks like stated age, neat " anxiety worry a lot, restlessness, Dc Samiudbrendan irritability assessment of mood and affect good eye contact, normal [place] E&M affect " mental status examination: alert and oriented to [place] orientation E&M person, place, and time Generalized Anxiety Disorder 0 Caterina Palafox Questionnaire - Question 2 " Generalized Anxiety Disorder 0 Caterina Palafox Questionnaire - Question 1 assessment of mood and affect good eye contact, normal [place] E&M affect " mental status examination: alert and oriented to [place] orientation E&M person, place, and time MEDICAL EQUIPMENT No Information Available FAMILY HISTORY No Information Available INSURANCE PROVIDERS Payer name Policy type / Coverage type Covered alliance party ID Stevo White 101-200% Other [id number] Title X Other [id number] Sliding Fee - Cat 3 Rep[employer]Pal insurance [employer] [id number] Stevo White 101-200% Other FAMILY PLANNING*TITLE V Medicaid Primary Health Care Ron Other Stevo White 101-200% Other Copay Assistance - Financial Services Other [id number] Sliding Fee - Cat 3 Commercial insurance [employer] [id number] Stevo White 101-200% Other [id number] Sliding Fee - Cat 3 Commercial insurance company Stevo White 101-200% Other Sliding Fee - Cat 2 Commercial insurance company FAMILY PLANNING*TITLE V Medicaid Primary Health Care Ron Other Stevo White 101-200% Other *Stevo White 0-100% Other Sliding Fee - Cat 1 Commercial insurance company Sliding Fee - Cat 3 Commercial insurance [employer] [id number] Stevo White 101-200% Other [id number] Premium Assistance -Financial Services Other [id number] Pymt [facility] HMO MEDICAL/MARKETPLACE [facility] Primary Health Care Ron Other [id number] Family Planning/WHFPT Medicaid [id number] Sliding Fee Scale Commercial insurance [employer] Stevo Stephenson up to 300% Other [id number] ADVANCE DIRECTIVES Name Date DISCUSSED - NO [...] Level IV Est Patient Exp Problem - 49408 Ofc Vst, Est Level IV Est Patient Exp Problem - 64391 Ofc Vst, Est Level IV INFLUENZA VACCINE QUADRIVALENT 3 YRS PLUS IM Spherocyl, SV, plano to +/- 4.00d sphere, 0.12 to 2.00d cyl, per lens Frames, purchases Est Patient Intermediate Opth - 41700 Ofc Vst, Est Level IV Pneumovax Vaccine PPSV23 Ofc Vst, Est Level IV Primary Care Medical Case Management Primary Care Medical Case Management Primary Care Medical Case Management Est Patient Exp Problem - 51017 Ofc Vst, Est Level IV INFLUENZA VACCINE QUADRIVALENT 3 YRS PLUS IM Est Patient Exp Problem - 82447 Dispensing Visit (UNLIVSTED OPHTHALMOLOGICAL SERVICE/PROCEDURE) Primary Care Medical Case Management Primary Care Medical Case Management Frames, purchases Spherocyl, SV, plano to +/- 4.00d sphere, 0.12 to 2.00d cyl, per lens Diagnostic evaluation with medical - 02297 Est Patient Intermediate Opth - 92764 Est Patient Intermediate Opth - 05665 Primary Care Medical Case Management Primary Care Medical Case Management Primary Care Medical Case Management Primary Care Medical Case Management Primary Care Medical Case Management Behavioral Health - Psychiatry Primary Care - Service Planning Comprehensive Primary Care - Assesment-Comprehensive [facility] Primary Care Medical Case Management Ofc Vst, New Level IV Behavioral Health - Psychiatry Prevnar (PCV13) IM Dispensing Visit (UNLIVSTED OPHTHALMOLOGICAL SERVICE/PROCEDURE) Frames, purchases Spherocyl, SV, plano to +/- 4.00d sphere, 0.12 to 2.00d cyl, per lens Est Patient Intermediate Opth - 50508 New Patient Intermediate Opth - 47644 HISTORY OF PROCEDURES Procedure Date Procedure Name Provider Procedure Notes Status Spherocyl, SV, plano to Ashlee Verdugo completed +/- 4.00d sphere, 0.12 to 2.00d cyl, per lens Frames, purchases Ashlee Barcenas completed Est Patient Intermediate Nestor Guzman completed Opth - 03502 Primary Care Medical Case Kasia Betancur Time spent with completed Management patient: 15 Primary Care Medical Case Kasia Betancur Time spent with completed Management patient: 10 Primary Care Medical Case Kasia Betancur Time spent with completed Management patient: Dispensing [...] evaluation Dc Guerrero completed with medical - 15070 Est Patient Intermediate Casa Riggs completed Opth - 86465 Est Patient Intermediate Nestor Guzman completed Opth - 92538 Primary Care Medical Case Kasia Meserve Time [...] Patient Intermediate Cas[place] Riggs completed Opth - 65734 New Patient Intermediate Nestor Guzman completed Opth - 08191 GOALS No Information Available HEALTH CONCERNS No Information Available
--- OUTSIDE RECORDS SUMMARY | 2019-12-23 20:24 | XMS REPORT | Summary of Care ---
:1980 Author Organization [facility] - [facility] Address [address] [place] [address] Care Team Providers Name Role Phone Rupert Tiwari MD Primary Care Provider Reason for Visit Reason Comments Refill Request Encounter Details Date Type Department Care Team Description 12/07/2019 Refill [facility], LORETTA Jiang Refill Request Diseases- [address] [id number] [place] [address] [place] [phone] [place] [address] Allergies Active Allergy Reactions Severity Noted Date Comments Codeine Rash High 04/06/2011 documented as of this encounter (statuses as of 12/23/2019) Medications Medication Sig Dispensed Refills Start Date End Date Status xuwucqbxdn-mlogoafy-cker Take 200 mg by 90 tablet 3 12/10/2019 Active fo ala (ODEFSEY) mouth daily. 200-25-25 mg Take one TabIndications: Human 200/25/25 mg immunodeficiency virus tablet once (HIV) disease daily with food amoxicillin 500 mg Take 1 capsule 20 capsule 0 12/06/2019 Active capsuleIndications: by mouth 2 Strep pharyngitis (two) times daily. lisinopril 20 mg 1 po once daily 30 tablet 11 12/06/2019 Active tabletIndications: Essential hypertension metFORMIN 1,000 mg 1 po BID 60 tablet 11 12/06/2019 Active tabletIndications: Type 2 diabetes mellitus without complication, without long-term current use of insulin documented as of this encounter (statuses as of 12/23/2019) Active Problems Problem Noted Date Intractable diarrhea 11/29/2014 Hypertriglyceridemia 02/06/2013 Depressive disorder 08/01/2012 Overview: ICD10 Diagnosis Term Continuous Improvement Consultant Utility History of latent syphilis 02/29/2012 Chronic hepatitis B 10/24/2011 Herpes zoster 04/06/2011 Overview: ICD10 Diagnosis Term Continuous Improvement Consultant Utility Human immunodeficiency virus (HIV) disease 04/06/2011 documented as of this encounter (statuses as of 12/23/2019) Resolved Problems Problem Noted Date Resolved Date Preauricular lymphadenopathy 12/09/2011 05/30/2012 HCV (hepatitis C virus) 04/06/2011 10/24/2011 Early syphilis, other primary syphilis 04/06/2011 02/29/2012 documented as of this encounter (statuses as of 12/23/2019) Immunizations Name Administration Dates Next Due HEPATITIS [...] Treatment Date Type Specialty Care Team Description 01/13/2020 Appointment Radiology Apolinar Smith PA [id number] [place] [address] [phone] 03/16/2020 Office Visit Infectious Disease Apolinar Smith PA [id number] [place] [address] [phone] Health Maintenance Due Date Last Done Comments [...] filedocumented in this encounter Visit Diagnoses Diagnosis Type 2 diabetes mellitus without complication, without long-term current use of insulin Essential hypertension Unspecified essential hypertension documented in this encounter Insurance Payer Benefit Plan / Group Subscriber ID Effective Dates Phone Address Type AETNA AETNA [facility] [id number] 2017-Present PPO documented as of this encounter Advance Directives Type Date Recorded 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
--- OUTSIDE RECORDS SUMMARY | 2019-12-23 20:24 | XMS REPORT | Summary of Care ---
:1980 Author Organization [facility] Address [address] [place] [address] Care Team Providers Name Role Phone Rupert Tiwari MD Primary Care Provider Reason for Referral (Routine) Status Reason Specialty Diagnoses / Referred By Referred To Procedures Contact Contact New Request Endocrinology Diagnoses Type 2 diabetes mellitus without complication, without long-term current use of insulin Apolinar Smith, Diabetes & Procedures CONSULT/REFERRAL DIABETES EDUCATION CLASS PA Metabolism [address] [facility] [id number] [place] [address] Reason for Visit Reason Comments Establish Care Encounter Details Date Type Department Care Team Description 12/02/2019 Office Visit [facility] Apolinar Smith, Human immunodeficiency virus (HIV) disease (Primary Dx); Infectious Diseases- [place] History of latent syphilis; [address] Type 2 diabetes mellitus without complication, without long- term current use of insulin; [facility] [id number] Chronic hepatitis B; [address] [place], [place] Hyperlipidemia, unspecified hyperlipidemia type [address] [address] [place], [place] [phone] [address] Allergies Active Allergy Reactions Severity Noted Date Comments Codeine Rash High 04/06/2011 documented as of this encounter (statuses as of 12/10/2019) Medications Medication Sig Dispensed Refills Start Date End Date Status jgwmblqplj-uutkjdjc-w Take 200 mg 90 tablet 3 12/10/2019 [...] Depressive disorder 08/01/2012 Overview: ICD10 Diagnosis Term Urinalysis Technician Utility History of latent syphilis 02/29/2012 Chronic hepatitis B 10/24/2011 Herpes zoster 04/06/2011 Overview: ICD10 Diagnosis Term Urinalysis Technician Utility Human immunodeficiency virus (HIV) disease [...] Comments Blood Pressure 175/95 12/02/2019 10:14 AM SEPARATIONS SCIENTIST Pulse 103 12/02/2019 10:14 AM SEPARATIONS SCIENTIST Temperature 36.9 C (98.5 F) 12/02/2019 10:14 AM SEPARATIONS SCIENTIST Respiratory Rate 18 12/02/2019 10:14 AM SEPARATIONS SCIENTIST Oxygen Saturation - - Inhaled Oxygen Concentration - - Weight 67.3 kg (148 lb 4.8 oz) 12/02/2019 10:14 AM SEPARATIONS SCIENTIST Height 165.1 cm (5' 5") 12/02/2019 10:14 AM SEPARATIONS SCIENTIST Body Mass Index 24.68 12/02/2019 10:14 AM SEPARATIONS SCIENTIST documented in this encounter Progress Notes Apolinar Smith PA - 12/02/2019 10:30 AM CST [facility] ID Clinic Visit ROBERT: 12/02/2019 Chief Complaint: HIV patient re-establishing care Jaleel Olivas is a 39 year old male with PMH seen below who is here today to re -establish HIV care.Patient was last seen at our clinic in 2015 and then transferred to [facility] due to insurance coverage. Patient was not happy with his care at [facility] so decided to come back. He was first diagnosed with HIV in 2008 and has only been on Complera ART. He is tolerating Complera well and reports good adherence. Patient has not had any opportunistic infections or STDs since last seen at our clinic. Patient was hospitalized at [facility] for a week for a perianal [...] 160-300. He reports eating a lot of estonian food, candy and cokes. Patient's father has [...] four extremities Lymphatic:no significant lymphadenopathy LABORATORY 01/27/2016 XW4=688 (48%) 12/02/2019 HIV- WXI=483 copies/mL Component Latest Ref Rng & Units 12/02/2019 1:00 PM GLUCOSE-Q 65 - 99 mg/dL 211 (H) UREA NITROGEN (BUN)-Q 7 - 25 mg/dL 10 CREATININE-Q 0.60 - 1.35 mg/dL 1.01 eGFR NON-AFR. LATVIAN-Q > OR=60 mL/min/1.73m2 92 eGFR -Q > [...] 28 (L) TRIGLYCERIDES-Q <150 mg/dL 463 (H) EQV-DOAUSPMHPSV-M mg/dL (calc) SEE NOTE CHOL/HDLC RATIO-Q <5.0 (calc) 6.1 (H) NON-HDL CHOLESTEROL-Q <130 mg/dL (calc) 142 (H) ASSESSMENT/PLAN 1. HIV - patient was diagnosed with HIV in 2008, was receiving care at [facility] before coming here - patient's last VL was 300 copies/mL and CD4 was 895 - stop Complera - start taking Odefsey 2. T2DM without complications - patient was diagnosed ~3 years ago, has increased urinary frequency, nocturia x5, weight loss but denies paresthesia - patient's diabetes was being monitored by PCP at [facility] - continue taking metformin 500 mg BID [...] Disease Apolinar Smith PA [id number] [place] [address] [phone] Name Type Priority Associated Diagnoses Order Schedule LIPID PANEL LAB Routine Hyperlipidemia, unspecified Expected: ([id number])(TOTAL hyperlipidemia type 12/02/2019, CHOLESTEROL, Expires: 12/02/2020 TRIGLYCERIDES, HDL) COMP. METABOLIC PANEL LAB Routine Human immunodeficiency virus Expected: (07544) (HIV) disease 12/02/2019, Expires: 12/02/2020 CBC WITH [...] virus Expected: Quantitative RT-PCR (HIV) disease 12/02/2019, ([id number]) via [facility] Expires: 12/02/2020 Diagnostics Misc. Sendout- LAB Routine Human immunodeficiency virus Expected: Lymphocyte Subset Panel (HIV) disease 12/02/2019, 5 (2177) via [facility] Expires: 12/02/2020 Diagnostics MICROALBUMIN URINE [...] hyperlipidemia type documented in this encounter (Work) 04196 documented as of this encounter Advance Directives Type Date Recorded Patient Record Filing Clerk Explanation Advance Directives and Living 06/24/2015 10:21 AM Will Power of Assembler [employer] 06/24/2015 10:21 AM
[2019-12-23] MEDS ORDERED: ONDANSETRON 4 MG/2 ML VIAL ONE (20:54)
[2019-12-23] MEDS ORDERED: MAGNE/ALUM HYDROXD 30 ML UCUP ONE (20:54)
[2019-12-23] MEDS ORDERED: MORPHINE 4 MG/ML SYR ONE (20:54)
[2019-12-23] MEDS ORDERED: FAMOTIDINE 20 MG/2 ML VIAL IV ONE (20:54)
[2019-12-23] MEDS ORDERED: LIDOCAINE VISCOUS 2% SOLN 15 ML UDC ONE (20:54)
[2019-12-23] MEDS ORDERED: NA CHLORIDE 0.9% 1,000 ML ONE (20:54)
[2019-12-23 21:05] LABS: Basophils % 0.4 % (0-1.3); Hematocrit 48.1 % (39.6-49.0); Lymphocytes % 11.9 % (15.3-44.8); MPV 8.3 fL (7.6-11.3); RBC Red Blood Cell Count 5.44 M/uL (4.33-5.43)
[2019-12-23 21:19] LABS: Albumin 3.6 g/dL (3.4-5.0); Bilirubin Direct 0.3 mg/dL (0-0.2); Bilirubin Total 1.1 mg/dL (0.2-1.0); Potassium 3.6 mmol/L (3.5-5.1); Protein, Total 8.3 g/dL (6.4-8.2)
[2019-12-23 21:41] LABS: Platelet Estimate ADEQ; Urine White Blood Cell Casts OK
[2019-12-23 21:42] LABS: Blood Morphology Comment NOT SEEN (NOT SEEN); Platelets, Giant SEEN
--- NOTE | 2019-12-23 22:31 | ER ---
Nurse's Notes [facility] Name: Jaleel Olivas Age: 39 yrs Sex: Male : 1980 Arrival Date: 12/23/2019 Time: 20:16 Bed 15 Private MD: Diagnosis: Upper abdominal pain, unspecified;Acute upper respiratory infection, unspecified Presentation: 12/23 20:28 Presenting complaint: Patient states: FEVER STARTED THIS MORNING AT 8AM. TOOK TYLENOL, rv LAST DOSE WAS AT 3PM. ALSO COMPLAINING OF ABDOMINAL PAIN, 06/15. Transition of care: patient was not received from another setting of care. Onset of symptoms was December 23, 2019 at 08:00. Risk Assessment: Do you want to hurt yourself or someone else? Patient reports no desire to harm self or others. Initial Sepsis Screen: Does the patient meet any 2 criteria? HR > 90 bpm. No. Patient's initial sepsis screen is negative. Does the patient have a suspected source of infection? Yes: Acute abdominal pain. Care prior to arrival: None. 20:28 Method Of Arrival: Ambulatory rv 20:28 Acuity: LARRY 3 rv Triage Assessment: 21:21 General: Behavior is calm, cooperative. rv Historical: - Allergies: 20:35 Codeine (Hives); rv 20:35 Tape; rv - PMHx: 20:35 Diabetes - NIDDM; HIV; Hypertension; rv - PSHx: 20:35 Appendectomy; rv - Immunization history:: Adult Immunizations up to date. - Coronavirus screen:: The patient has NOT traveled to [place] in the past 14 days. Proceed with normal triage process as indicated. The patient has NOT had contact with known/suspected case of Coronavirus? Proceed with normal triage procedures. - Social history:: Patient/guardian denies using alcohol, street drugs, The patient lives with family, Smoking status: Reported history of juuling and/or vaping. - Family history:: not pertinent. - Ebola Screening: : No symptoms or risks identified at this time. Screenin:36 Abuse screen: Denies threats or abuse. Denies injuries from another. Nutritional rv screening: No deficits noted. Tuberculosis screening: No symptoms or risk factors identified. Fall Risk None identified. Assessment: 20:36 General: Appears in no apparent distress. Pain: Complains of pain in abdomen. Neuro: rv Level of Consciousness is awake, alert, obeys commands, Oriented to person, place, time, situation. Cardiovascular: Patient's skin is warm and dry. Respiratory: Airway is patent. GI: Abdomen is flat, non-distended, Bowel sounds present X 4 quads. Abd is soft and non tender X 4 quads. Derm: Skin is intact. 22:39 Reassessment: Patient appears in no apparent distress at this time. Patient and/or rv family updated on plan of care and expected duration. Pain level reassessed. Patient is alert, oriented x 3, equal unlabored respirations, skin warm/dry/pink. DR MERCEDES WEXPLAINED THE TEST RESULTS TO THE PATIENT AND THE PLAN OF CARE AFTER DISHCARGE., ADVISED TO FF UP WITH GI DOCTOR. Vital Signs: 20:27 BP 150 / 103; Pulse 118; Resp 20; Temp 100.1; Pulse Ox 94% on R/A; Weight 68.04 kg; rv Height 5 ft. 5 in. (165.10 cm); Pain 8/10; 21:15 BP 150 / 95; Pulse 116; Resp 18; Pulse Ox 96% on R/A; rv 21:25 Temp 99.7(O); rv 22:00 BP 141 / 95; Pulse 114; Resp 18; Pulse Ox 96% on R/A; rv 22:40 BP 144 / 96; Pulse 106; Resp 19; Pulse Ox 96% on R/A; rv 20:27 Body Mass Index 24.96 (68.04 kg, 165.10 cm) rv ED Course: 20:16 Patient arrived in ED. ag3 20:22 Alfonso Mercedes MD is Attending Physician. ma2 20:27 Robson Hernandez RN is Primary Nurse. rv 20:34 Triage completed. rv 20:37 Arm band placed on right wrist. rv 20:37 Patient has correct armband on for positive identification. Pulse ox on. NIBP on. rv 20:45 Inserted saline lock: 18 gauge in right antecubital area, using aseptic technique. cm6 22:30 Michael Mandujano MD is Referral Physician. ma2 22:40 No provider procedures requiring assistance completed. IV discontinued, intact, rv bleeding controlled, No redness/swelling at site. Pressure dressing applied. Administered Medications: 20:58 Drug: GI Cocktail without - (Maalox Suspension 30 ml, Lidocaine Liquid 2 % 15 rv ml) Route: PO; 22:18 Follow up: Response: No adverse reaction; Pain is decreased rv 20:58 Drug: NS 0.9% 1000 ml Route: IV; Rate: 1 bolus; Site: right antecubital; rv 22:18 Follow up: IV Status: Completed infusion; IV Intake: 1000ml rv 20:59 Drug: Pepcid 20 mg Route: IVP; Site: right antecubital; rv 22:18 Follow up: Response: No adverse reaction rv 20:59 Drug: Zofran 4 mg Route: IVP; Site: right antecubital; rv 22:18 Follow up: Response: No adverse reaction rv 20:59 Drug: morphine 4 mg {Note: RASS 0.} Route: IVP; Site: right antecubital; rv 22:20 Follow up: Response: No adverse reaction; Pain is decreased; RASS: Alert and Calm (0) rv Intake: 22:18 IV: 1000ml; Total: 1000ml. rv Outcome: 22:30 Discharge ordered by MD. rodriguez 22:40 Discharged to home ambulatory. rv 22:40 Condition: good 22:40 Discharge instructions given to patient, Instructed on discharge instructions, follow up and referral plans. medication usage, Demonstrated understanding of instructions, follow-up care, medications, Prescriptions given X 2. 22:41 Patient left the ED. rv Signatures: Alfonso Mercedes MD MD ma2 Robson Hernandez RN RN Bela Billy 3 Rocio Cassidy 6
--- NOTE | 2019-12-23 22:31 | EDPHYS ---
Physician Documentation [facility] Name: Jaleel Olivas Age: 39 yrs Sex: Male : 1980 Arrival Date: 12/23/2019 Time: 20:16 Bed 15 Private MD: ED Physician Alfonso De Dios HPI: 12/23 22:27 This 39 yrs old Male presents to ER via Ambulatory with complaints of Fever. ma2 22:27 The patient reports fever, not measured (subjective). Onset: The symptoms/episode ma2 began/occurred gradually. Associated signs and symptoms: Pertinent positives: chest pain, nausea, runny nose, sinus congestion, sinus drainage, Pertinent negatives: abdominal pain, arthralgias, backache, cough, nausea, runny nose. Severity of symptoms: At their worst the symptoms were moderate in the emergency department the symptoms are unchanged. The patient has not experienced similar symptoms in the past. has URI symptoms, and epigastric burning . Historical: - Allergies: 20:35 Codeine (Hives); rv 20:35 Tape; rv - PMHx: 20:35 Diabetes - NIDDM; HIV; Hypertension; rv - PSHx: 20:35 Appendectomy; rv - Immunization history:: Adult Immunizations up to date. - Coronavirus screen:: The patient has NOT traveled to [place] in the past 14 days. Proceed with normal triage process as indicated. The patient has NOT had contact with known/suspected case of Coronavirus? Proceed with normal triage procedures. - Social history:: Patient/guardian denies using alcohol, street drugs, The patient lives with family, Smoking status: Reported history of juuling and/or vaping. - Family history:: not pertinent. - Ebola Screening: : No symptoms or risks identified at this time. ROS: 22:27 Constitutional: Negative for fever, chills, and weight loss. ma2 22:27 All other systems are negative. Exam: 22:27 Constitutional: This is a well developed, well nourished patient who is awake, alert, ma2 and in no acute distress. Eyes: Pupils equal round and reactive to light, extra-ocular motions intact. Lids and lashes normal. Conjunctiva and sclera are non-icteric and not injected. Cornea within normal limits. Periorbital areas with no swelling, redness, or edema. ENT: red oropharynx, otherwise Nares patent. No nasal discharge, no septal abnormalities noted. Tympanic membranes are normal and external auditory canals are clear. Oropharynx with no redness, swelling, or masses, exudates, or evidence of obstruction, uvula midline. Mucous membranes moist. Neck: Trachea midline, no thyromegaly or masses palpated, and no cervical lymphadenopathy. Supple, full range of motion without nuchal rigidity, or vertebral point tenderness. No Meningismus. Chest/axilla: Normal chest wall appearance and motion. Nontender with no deformity. No lesions are appreciated. Cardiovascular: Regular rate and rhythm with a normal S1 and S2. No gallops, murmurs, or rubs. Normal PMI, no JVD. No pulse deficits. Respiratory: Lungs have equal breath sounds bilaterally, clear to auscultation and percussion. No rales, rhonchi or wheezes noted. No increased work of breathing, no retractions or nasal flaring. Abdomen/GI: Soft, non-tender, with normal bowel sounds. No distension or tympany. No guarding or rebound. No evidence of tenderness throughout. Skin: Warm, dry with normal turgor. Normal color with no rashes, no lesions, and no evidence of cellulitis. MS/ Extremity: Pulses equal, no cyanosis. Neurovascular intact. Full, normal range of motion. Neuro: Awake and alert, GCS 15, oriented to person, place, time, and situation. Cranial nerves II-XII grossly intact. Motor strength 5/5 in all extremities. Sensory grossly intact. Cerebellar exam normal. Normal gait. Vital Signs: 20:27 BP 150 / 103; Pulse 118; Resp 20; Temp 100.1; Pulse Ox 94% on R/A; Weight 68.04 kg; rv Height 5 ft. 5 in. (165.10 cm); Pain 8/10; 21:15 BP 150 / 95; Pulse 116; Resp 18; Pulse Ox 96% on R/A; rv 21:25 Temp 99.7(O); rv 22:00 BP 141 / 95; Pulse 114; Resp 18; Pulse Ox 96% on R/A; rv 22:40 BP 144 / 96; Pulse 106; Resp 19; Pulse Ox 96% on R/A; rv 20:27 Body Mass Index 24.96 (68.04 kg, 165.10 cm) rv MDM: 20:22 Patient medically screened. ma2 22:27 Differential diagnosis: viral Infection, URI, gastroenteritis. Data reviewed: vital ma2 signs, nurses notes. Counseling: I had a detailed discussion with the patient and/or guardian regarding: the historical points, exam findings, and any diagnostic results supporting the discharge/admit diagnosis, the presence of at least one elevated blood pressure reading (>120/80) during this emergency department visit, the need for outpatient follow up. Response to treatment: the patient's symptoms have markedly improved after treatment. 12/23 20:34 Order name: Basic Metabolic Panel; Complete Time: 22:23 tn2 12/23 20:34 Order name: CBC with Diff; Complete Time: 22:23 [facility] 12/23 20:34 Order name: Creatinine for Radiology; Complete Time: 22:23 tn2 12/23 20:34 Order name: Hepatic Function; Complete Time: 22:23 tn2 12/23 20:34 Order name: Lipase; Complete Time: 22:23 [facility] 12/23 20:34 Order name: Flu; Complete Time: 22:23 tn2 12/23 20:34 Order name: Strep; Complete Time: 22:23 tn2 12/23 21:32 Order name: Throat Culture [facility] 12/23 21:43 Order name: CBC Smear Scan; Complete Time: 22:23 [facility] 12/23 22:28 Order name: Urine Dipstick--Ancillary (enter results) [place] 12/23 20:34 Order name: IV Saline Lock; Complete Time: 20:58 tn2 12/23 20:34 Order name: Labs collected and sent; Complete Time: 20:58 tn2 12/23 20:34 Order name: Urine Dipstick-Ancillary (obtain specimen); Complete Time: 22:18 ma2 Administered Medications: 20:58 Drug: GI Cocktail without - (Maalox Suspension 30 ml, Lidocaine Liquid 2 % 15 rv ml) Route: PO; 22:18 Follow up: Response: No adverse reaction; Pain is decreased rv 20:58 Drug: NS 0.9% 1000 ml Route: IV; Rate: 1 bolus; Site: right antecubital; rv 22:18 Follow up: IV Status: Completed infusion; IV Intake: 1000ml rv 20:59 Drug: Pepcid 20 mg Route: IVP; Site: right antecubital; rv 22:18 Follow up: Response: No adverse reaction rv 20:59 Drug: Zofran 4 mg Route: IVP; Site: right antecubital; rv 22:18 Follow up: Response: No adverse reaction rv 20:59 Drug: morphine 4 mg {Note: RASS 0.} Route: IVP; Site: right antecubital; rv 22:20 Follow up: Response: No adverse reaction; Pain is decreased; RASS: Alert and Calm (0) rv Disposition: 12/23/19 22:30 Discharged to Home. Impression: Upper abdominal pain, unspecified, Acute upper respiratory infection, unspecified. - Condition is Stable. - Discharge Instructions: Gastritis, Adult, Upper Respiratory Infection, Adult. - Prescriptions for Zithromax Z- Cecilio 250 mg Oral Tablet - take 1 tablet by ORAL route as directed for 5 days Day 1 - take two (2) tablets one time. Day 2, 3, 4 , 5 take one (1) tablet once daily.; 6 tablet. Pepcid 20 mg Oral Tablet - take 1 tablet by ORAL route once daily; 20 tablet. - Medication Reconciliation Form, Thank You Letter, Antibiotic Education, Prescription Opioid Use, Work release form form. - Follow up: Private Physician; When: Tomorrow; Reason: Continuance of care. Follow up: Michael Mandujano MD; When: Tomorrow; Reason: Continuance of care. Signatures: Dispatcher [employer] EDMS Alfonso De Dios MD MD ma2 Robson Hernandez RN RN rv Corrections: (The following items were deleted from the chart) 22:41 22:30 12/23/2019 22:30 Discharged to Home. Impression: Upper abdominal pain, rv unspecified; Acute upper respiratory infection, unspecified. Condition is Stable. Forms are Medication Reconciliation Form, Thank You Letter, Antibiotic Education, Prescription Opioid Use. Follow up: Private Physician; When: Tomorrow; Reason: Continuance of care. Follow up: Michael Mandujano; When: Tomorrow; Reason: Continuance of care. jennifer
[2019-12-23 22:33] LABS: Urine Blood NEGATIVE (NEG); Urine Glucose TRACE (NEG); Urine Protein 1+ (NEG); Urine pH 5.5 (5.0-7.0)
[2019-12-24 01:23] VITALS: TEMP 99.7; O2SAT 96
[2019-12-24 01:26] VITALS: BP 144/96
== END 2019-12-23 22:41 | disposition home or self-care (01) ==
LOC: ER 20:14
DX: J06.9 Acute upper respiratory infection, unspecified (principal); R10.10 Upper abdominal pain, unspecified; Z88.6 Allergy status to analgesic agent
CPT/HCPCS: 96361; 87070; 85025; 80048; 36415; 80076; 87081; 81003; 83690; 87804 ×2; 96375; 96374; 99284; J7030; J2405

== ENCOUNTER 2020-04-24 09:00 | Emergency (ER) | payer OTHER ==
--- OUTSIDE RECORDS SUMMARY | 2020-04-24 09:39 | XMS REPORT | Continuity of Care Document ---
:1980 Author Organization [facility] t Address [address] [place] [address] Care Team Providers Name Role Phone Luis BURGOS Attending Clinician Problems This patient has no known problems. Allergies, Adverse Reactions, Alerts This patient has no known allergies or adverse reactions. Medications This patient has no known medications. Procedures This patient has no known procedures. Encounters Start End Encounter Admission Attending Care Care Encounter Source Date/Time Date/Time Type Type Clinicians Facility Department ID 2020-03-26 2020-03-26 Telephone [place] [id number] 00:00:00 00:00:00 [facility] [id number] [place] [id number] 2020-02-26 2020-02-26 [facility] [id number] 00:00:00 00:00:00 [facility] [id number] [place] [id number] 2019-12-06 2019-12-06 Telephone [facility] [id number] 00:00:00 00:00:00 [facility] [id number] Results This patient has no known results.
--- OUTSIDE RECORDS SUMMARY | 2020-04-24 09:40 | XMS REPORT | Summary of Care ---
:1980 Author Organization [facility] - [facility] Address [address] [place] [address] Care Team Providers Name Role Phone Apolinar Smith Primary Care Provider Encounter Details Date Type Department Care Team Description 12/26/2019 Patient Secure [facility] Internal Doctor Denis ramírez, [facility] [address], [place], [place] [address] 105 [place] [address] Allergies Active Allergy Reactions Severity Noted Date Comments Codeine Rash High 04/06/2011 documented as of this encounter (statuses as of 02/01/2020) Medications Medication Sig Dispensed Refills Start Date End Date Status lisinopril 20 mg 1 po once daily 30 tablet 11 12/06/2019 Active tabletIndications: Essential hypertension metFORMIN 1,000 mg 1 po BID 60 tablet 11 12/06/2019 Active tabletIndications: Type 2 diabetes mellitus without complication, without long-term current use of insulin traMADol 100 mg 24 hr Take 1 tablet by 12 tablet 0 12/26/2019 Active tabletIndications: mouth daily. Abdominal pain, unspecified abdominal location documented as of this encounter (statuses as of 02/01/2020) Active Problems Problem Noted Date Intractable diarrhea 11/29/2014 Hypertriglyceridemia 02/06/2013 Depressive disorder 08/01/2012 Overview: ICD10 Diagnosis Term Geophysical Data Technician Utility History of latent syphilis 02/29/2012 Chronic hepatitis B 10/24/2011 Herpes zoster 04/06/2011 Overview: ICD10 Diagnosis Term Geophysical Data Technician Utility Human immunodeficiency virus (HIV) disease 04/06/2011 documented as of this encounter (statuses as of 02/01/2020) Resolved Problems Problem Noted Date Resolved Date Preauricular lymphadenopathy 12/09/2011 05/30/2012 HCV (hepatitis C virus) 04/06/2011 10/24/2011 Early syphilis, other primary syphilis 04/06/2011 0 02/29/2012 documented as of this encounter (statuses as of 02/01/2020) Immunizations Name Administration Dates Next Due HEPATITIS A 04/23/2014, 01/08/2010, 04/16/2009 Influenza Virus Vaccine 09/18/2019, 08/01/2012, 07/25/2011 Influenza Virus Vaccine Quad IM 3+ 09/17/2014 YRS Influenza Virus Vaccine Quad IM 6-35 09/17/2014 (Deferred: V accine [place] Unavailable) PPD (TB) 08/01/2012, 04/19/2011, 07/02/2010 Pneumococcal 13 Conjugate, PCV13 09/17/2014 (Prevnar 13) Pneumococcal Polysaccharide, PPSV23 04/19/2011, 04/16/2009 (PNEUMOVAX) TDAP (ADACEL) VACCINE 04/19/2011 Tdap 04/16/2009 documented as of this encounter Social History Tobacco Use Types Packs/Day Years Used Date Former Smoker Cigarettes 0.3 7 Quit: 12/07/19 14 Smokeless Tobacco: Never Used Alcohol Use Drinks/Week [...] Treatment Date Type Specialty Care Team Description 02/04/2020 Telemedicine Visit Gastroenterology Sheryl Aquino am, MD [address] [place] [address] [phone] 03/16/2020 Office Visit Infectious Disease Apolinar Smith PA [address] [place] [phone] Health Maintenance Due Date Last Done Comments EYE EXAM 1988 FOOT EXAM 1996 HgA1C 06/01/2020 12/02/2019 LDL-C 12/02/2020 12/02/2019, 01/27/2016, 04/23/2014, Additional history exists URINE MICROALBUMIN 12/02/2020 12/02/2019 CREATININE (SERUM) 12/26/2020 12/26/2019, 12/02/2019, 02/28/2019, Additional history exists DTaP,Tdap,and Td Vaccines (3 - Td) 04/19/2021 04/19/2011, 0 04/16/2009 PNEUMOCOCCAL 0-64 YEARS COMBINED Completed 09/17/2014, , SERIES 04/16/2009 INFLUENZA VACCINE Completed 09/18/2019, 09/17/2014, 08/01/2012, Additional history exists documented as of this encounter Results Not on filedocumented in this encounter Insurance Payer Benefit Plan / Group Subscriber ID Effective Dates Phone Address Type AETNA AETNA [facility] C[facility] [id number] 2017-Present PPO documented as of this encounter Advance Directives Type Date Recorded Patient Drafter Apprentice Explanati on Advance Directives and Living 06/24/2015 10:21 AM Will Power of Rotary Pump Operator 06/24/2015 10:21 AM
--- OUTSIDE RECORDS SUMMARY | 2020-04-24 09:40 | XMS REPORT | Summary of Care ---
:1980 Author Organization [facility] - [facility] Address [address] [place] [address] Care Team Providers Name Role Phone Apolinar Smith Primary Care Provider Reason for Visit Reason Comments Refill Request Encounter Details Date Type Department Care Team Description 01/27/2020 Refill [facility] Infectious Jarvis Smith PA Refill Request Diseases- [id number] [place] [address] [place] [address] [place] [address] Allergies Active Allergy Reactions Severity Noted Date Comments Codeine Rash High 04/06/2011 documented as of this encounter (statuses as of 01/27/2020) Medications Medication Sig Dispensed Refills Start End Date Status Date lisinopril 20 mg 1 po once 30 tablet 11 Act debbie tabletIndications: daily 0 Essential hypertension metFORMIN 1,000 mg 1 po BID 60 tablet 11 A ctive tabletIndications: 0 Type 2 diabetes mellitus without complication, without long-term current use of insulin traMADol 100 mg 24 hr Take 1 12 tablet 0 Active tabletIndications: tablet by 0 Abdominal pain, mouth daily. unspecified abdominal location aamthnrwul-kiqpgzwl-r Take 200 mg 90 tablet 3 Active enofo ala (ODEFSEY) by mouth 0 200-25-25 mg daily. Take TabIndications: Human one immunodeficiency 200/25/25 mg virus (HIV) disease tablet once daily with food ihwrqrolxb-ptcaxvjn-r Take 200 mg 90 tablet 3 Discontinued enofo ala (ODEFSEY) by mouth 0 20 (Reorder) 200-25-25 mg daily. Take TabIndications: Human one immunodeficiency 200/25/25 mg virus (HIV) disease tablet once daily with food amoxicillin 500 mg Take 1 20 capsule 0 01/27/20 Discontinued capsuleIndications: capsule by 0 20 Strep pharyngitis mouth 2 (two) times daily. documented as of this encounter (statuses as of 01/27/2020) Active Problems Problem Noted Date Intractable diarrhea 11/29/2014 Hypertriglyceridemia 02/06/2013 Depressive disorder 08/01/2012 Overview: ICD10 Diagnosis Term Etcher Photoengraving Utility History of latent syphilis 02/29/2012 Chronic hepatitis B 10/24/2011 Herpes zoster 04/06/2011 Overview: ICD10 Diagnosis Term Etcher Photoengraving Utility Human immunodeficiency virus (HIV) disease 04/06/2011 documented as of this encounter (statuses as of 01/27/2020) Resolved Problems Problem Noted Date Resolved Date Preauricular lymphadenopathy 12/09/2011 05/30/2012 HCV (hepatitis C virus) 04/06/2011 10/24/2011 Early syphilis, other primary syphilis 04/06/2011 0 02/29/2012 documented as of this encounter (statuses as of 01/27/2020) Immunizations Name Administration Dates Next Due HEPATITIS [...] Date Type Specialty Care Team Description 02/04/2020 Office Visit Gastroenterology Sheryl Aquino MD [address] [place] [phone] 03/16/2020 Office Visit Infectious Disease Apolinar Smith PA [address] [place] [phone] Health Maintenance Due Date Last Done [...] Visit Diagnoses Diagnosis Human immunodeficiency virus (HIV) disea se Human immunodeficiency virus [HIV] disea se documented in this encounter Insurance Payer Benefit Plan / Group Subscriber ID Effective Dates Phone Address Type AETNA AETNA [facility] [id number] 2017-Present PPO documented as of this encounter Advance Directives Type Date Recorded Patient 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
--- OUTSIDE RECORDS SUMMARY | 2020-04-24 09:40 | XMS REPORT | Summary of Care ---
:1980 Author Organization [facility] Address [address] [place] [address] Care Team Providers Name Role Phone Apolinar Smith Primary Care Provider Reason for Visit Reason Comments Abdominal Pain Encounter Details Date Type Department Care Team Description 02/04/2020 Telemedicine Visit [facility] Jacky Guadalupe MD [address] [place] [phone] ERRONEOUS Gastroenterology-G Sheryl Aquino MD [address] [place] [phone] ENCOUNTER--DISREGLYDIA Lombardo (Primary Dx) [address] [place] [address] Allergies Active Allergy Reactions Severity Noted Date Comments Codeine Rash High 04/06/2011 documented as of this encounter (statuses as of 02/04/2020) Medications Medication Sig Dispensed Refills Start Date End Date Status lisinopril 20 mg 1 po once daily 30 tablet 11 12/06/2019 Active tabletIndications: Essential hypertension metFORMIN 1,000 mg 1 po BID 60 tablet 11 12/06/2019 Active tabletIndications: Type 2 diabetes mellitus without complication, without long-term current use of insulin traMADol 100 mg 24 hr Take 1 tablet 12 tablet 0 12/26/2019 Active tabletIndications: by mouth daily. Abdominal pain, unspecified abdominal location gipyjsiqor-kqwrqdol-qbqsk Take 200 mg by 90 tablet 3 0 Active o ala (ODEFSEY) 200-25-25 mouth daily. mg TabIndications: Human Take one immunodeficiency virus 200/25/25 mg (HIV) disease tablet once daily with food documented as of this encounter (statuses as of 02/04/2020) Active Problems Problem Noted Date Intractable diarrhea 11/29/2014 Hypertriglyceridemia 02/06/2013 Depressive disorder 08/01/2012 Overview: ICD10 Diagnosis Term Prescriptionist Utility History of latent syphilis 02/29/2012 Chronic hepatitis B 10/24/2011 Herpes zoster 04/06/2011 Overview: ICD10 Diagnosis Term Prescriptionist Utility Human immunodeficiency virus (HIV) disease 04/06/2011 documented as of this encounter (statuses as of 02/04/2020) Resolved Problems Problem Noted Date Resolved Date Preauricular lymphadenopathy 12/09/2011 05/30/2012 HCV (hepatitis C virus) 04/06/2011 10/24/2011 Early syphilis, other primary syphilis 04/06/2011 0 02/29/2012 documented as of this encounter (statuses as of 02/04/2020) Immunizations Name Administration Dates Next Due HEPATITIS [...] on filedocumented in this encounter Progress Notes Tayyem, Obada Hisham Sa'Eed, MD - 02/04/2020 8:30 AM CDTMultiple attempts to call the patient were unsuccessful. Left a VM for the patient to call back documented in this encounter Plan of Treatment Date Type Specialty Care Team Description 03/16/2020 Office Visit Infectious Disease East[facility] PA [address] [place] [phone] Health Maintenance Due Date Last Done [...] filedocumented in this encounter Visit Diagnoses Diagnosis ERRONEOUS ENCOUNTER--DISREGARD - Primary documented in this encounter Insurance Payer Benefit Plan / Subscriber ID Effective Dates Phone Addre ss Type Group AETNA AETNA T[employer] CARE [id number] 2017-Present PPO AGENCY GENERIC AGENCY GENERIC [id number] 2019-Present Agency (Work) [id number] documented as of this encounter Advance Directives Type Date Recorded Patient Speech Communication Professor Explanati on Advance Directives and Living 06/24/2015 10:21 AM Will Power of Engineer Station Mainline 06/24/2015 10:21 AM
--- OUTSIDE RECORDS SUMMARY | 2020-04-24 09:40 | XMS REPORT | Summary of Care ---
:1980 Author Organization [facility] - [address] [address] Care Team Providers Name Role Phone Apolinar Smith Primary Care Provider Reason for Referral (Routine) Status Reason Specialty Diagnoses / Referred By Referred To Procedures Contact Contact New Request Psychiatry Diagnoses Bipolar affective disorder, remission status unspecified PTSD (post-traumatic stress disorder) Apolinar Smith PA Procedures CONSULT/REFERRAL PSYCHIATRY ADULT [address] [place] [address] Reason for Visit Reason Comments Referral/consult Encounter Details Date Type Department Care Team Description 02/14/2020 Telephone [facility] Infectious Jarvis Smith PA Referral/consult Diseases- [place] [address] [place] [phone] Allergies Active Allergy Reactions Severity Noted Date Comments Codeine Rash High 04/06/2011 documented as of this encounter (statuses as of 02/14/2020) Medications Medication Sig Dispensed Refills Start Date [...] mouth daily. Abdominal pain, unspecified abdominal location ewnuzgdxee-ntwksags-psiri Take 200 mg by 90 tablet 3 0 Active o ala (ODEFSEY) 200-25-25 mouth daily. mg TabIndications: Human Take one immunodeficiency virus 200/25/25 mg (HIV) disease tablet once daily with food documented as of this encounter (statuses as of 02/14/2020) Active Problems Problem Noted Date Intractable diarrhea 11/29/2014 Hypertriglyceridemia 02/06/2013 Depressive disorder 08/01/2012 Overview: ICD10 Diagnosis Term Extrusion Press Supervisor Utility History of latent syphilis 02/29/2012 Chronic hepatitis B 10/24/2011 Herpes zoster 04/06/2011 Overview: ICD10 Diagnosis Term Extrusion Press Supervisor Utility Human immunodeficiency virus (HIV) disease 04/06/2011 documented as of this encounter (statuses as of 02/14/2020) Resolved Problems Problem Noted Date Resolved Date Preauricular lymphadenopathy 12/09/2011 05/30/2012 HCV (hepatitis C virus) 04/06/2011 10/24/2011 Early syphilis, other primary syphilis 04/06/2011 0 02/29/2012 documented as of this encounter (statuses as of 02/14/2020) Immunizations Name Administration Dates Next Due HEPATITIS A 04/23/2014, 01/08/2010, 04/16/2009 Influenza Virus Vaccine 09/18/2019, 08/01/2012, 07/25/2011 Influenza Virus Vaccine Quad IM 3+ 09/17/2014 YRS Influenza Virus Vaccine Quad IM 6-35 09/17/2014 (Deferred: [place] Unavailable) PPD (TB) 08/01/2012, 04/19/2011, 07/02/2010 [...] filedocumented in this encounter Plan of Treatment Health Maintenance Due Date Last Done Comments [...] filedocumented in this encounter Visit Diagnoses Diagnosis Bipolar affective disorder, remission st atus unspecified - Primary PTSD (post-traumatic stress disorder) Posttraumatic stress disorder documented in this encounter Insurance Payer Benefit Plan / Subscriber ID Effective Dates Phone Addre ss Type Group AETNA AETNA [facility] CARE [id number] 2017-Present PPO AGENCY GENERIC AGENCY GENERIC [id number] 2019-Present Agency documented as of this encounter Advance Directives Type Date Recorded Patient Spinning Supervisor Explanati on Advance Directives and Living 06/24/2015 10:21 AM Will Power of Heater Mechanic 06/24/2015 10:21 AM
--- OUTSIDE RECORDS SUMMARY | 2020-04-24 09:41 | XMS REPORT | Summary of Care ---
:1980 Author Organization [facility] Address [address] [place] [address] Care Team Providers Name Role Phone Apolinar Smith Primary Care Provider Reason for Visit Reason Comments Refill Request Encounter Details Date Type Department Care Team Description 02/26/2020 Refill [facility] Infectious Jarvis Smith PA Refill Request Diseases- [address] [id number] [place] [address] [place] [address] [place] [address] Allergies Active Allergy Reactions Severity Noted Date Comments Codeine Rash High 04/06/2011 documented as of this encounter (statuses as of 02/26/2020) Medications Medication Sig Dispensed Refills Start Date End Date Status metFORMIN 1,000 mg 1 po BID 60 tablet 11 12/06/2019 Active tabletIndications: Type 2 diabetes mellitus without complication, without long-term current use of insulin traMADol 100 mg 24 hr Take 1 12 tablet 0 12/26/2019 Active tabletIndications: tablet by Abdominal pain, mouth unspecified abdominal daily. location [id number] Take 200 mg 90 tablet 3 01/27/2020 Active enofo ala (ODEFSEY) by mouth 200-25-25 mg daily. Take TabIndications: Human one immunodeficiency 200/25/25 virus (HIV) disease mg tablet once daily with food lisinopril 20 mg 1 po once 90 tablet 1 02/26/2020 Ac tive tabletIndications: daily Essential hypertension lisinopril 20 mg 1 po once 30 tablet 11 12/06/2019 Di scontinued tabletIndications: daily 0 ( Reorder) Essential hypertension documented as of this encounter (statuses as of 02/26/2020) Active Problems Problem Noted Date Intractable diarrhea 11/29/2014 Hypertriglyceridemia 02/06/2013 Depressive disorder 08/01/2012 Overview: ICD10 Diagnosis Term Marketing Effectiveness Manager Utility History of latent syphilis 02/29/2012 Chronic hepatitis B 10/24/2011 Herpes zoster 04/06/2011 Overview: ICD10 Diagnosis Term Marketing Effectiveness Manager Utility Human immunodeficiency virus (HIV) disease 04/06/2011 documented as of this encounter (statuses as of 02/26/2020) Resolved Problems Problem Noted Date Resolved Date Preauricular lymphadenopathy 12/09/2011 05/30/2012 HCV (hepatitis C virus) 04/06/2011 10/24/2011 Early syphilis, other primary syphilis 04/06/2011 0 02/29/2012 documented as of this encounter (statuses as of 02/26/2020) Immunizations Name Administration Dates Next Due HEPATITIS [...] filedocumented in this encounter Visit Diagnoses Diagnosis Essential hypertension Unspecified essential hypertension documented in this encounter Insurance Payer Benefit Plan / Subscriber ID Effective Dates Phone Addre ss Type Group AETNA AETNA [facility] [id number] 2017-Present PPO AGENCY GENERIC AGENCY GENERIC [id number] 2019-Present Agency documented as of this encounter Advance Directives Type Date Recorded Patient Machine Clothing Worker Explanati on Advance Directives and Living 06/24/2015 10:21 AM Will Power of Automatic Nailing Machine Feeder 06/24/2015 10:21 AM
--- OUTSIDE RECORDS SUMMARY | 2020-04-24 09:41 | XMS REPORT | Summary of Care ---
:1980 Author Organization [facility] Address [address] [place] [address] Care Team Providers Name Role Phone Rupert Tiwari MD Primary Care Provider Reason for Visit Reason Comments Sore Throat Encounter Details Date Type Department Care Team Description 12/06/2019 Telephone [facility], LORETTA Valderrama Sore Throat Diseases[address] [id number] [place] [address] [place] [address] [place] [address] Allergies Active Allergy Reactions Severity Noted Date Comments Codeine Rash High 04/06/2011 documented as of this encounter (statuses as of 02/26/2020) Medications Medication Sig Dispensed Refills Start Date End Date Status lisinopril 20 mg 1 po once 30 tablet 11 12/06/2019 Ac tive tabletIndications: daily Essential hypertension metFORMIN 1,000 mg 1 po BID 60 tablet 11 12/06/2019 Active tabletIndications: Type 2 diabetes mellitus without complication, without long-term current use of insulin metFORMIN 500 mg Take 1 0 12/02/2019 Di scontinued tablet tablet by 0 (Reorder) mouth 2 (two) times daily with meals. lisinopril 20 mg 1 po once 0 12/02/2019 Di scontinued tablet daily 0 (Reorder) amoxicillin 500 mg Take 1 20 capsule 0 12/06/2019 Discontinued capsuleIndications capsule by 0 : Strep mouth 2 pharyngitis (two) times daily. documented as of this encounter (statuses as of 02/26/2020) Active Problems Problem Noted Date Intractable diarrhea 11/29/2014 Hypertriglyceridemia 02/06/2013 Depressive disorder 08/01/2012 Overview: ICD10 Diagnosis Term Truck Unloader Utility History of latent syphilis 02/29/2012 Chronic hepatitis B 10/24/2011 Herpes zoster 04/06/2011 Overview: ICD10 Diagnosis Term Truck Unloader Utility Human immunodeficiency virus (HIV) disease 04/06/2011 [...] this encounter Visit Diagnoses Diagnosis Essential hypertension - Primary Unspecified essential hypertension Type 2 diabetes mellitus without complic ation, without long-term current use of insulin Strep pharyngitis Streptococcal sore throat documented in this encounter Insurance Payer Benefit Plan / Group Subscriber ID Effective Dates Phone Address Type AETNA AETNA [facility] [id number] 2017-Present PPO documented as of this encounter Advance Directives Type Date Recorded Patient Gamemaster Explanati on Advance Directives and Living 06/24/2015 10:21 AM Will Power of Gold Miner 06/24/2015 10:21 AM
--- OUTSIDE RECORDS SUMMARY | 2020-04-24 09:41 | XMS REPORT | Summary of Care ---
:1980 Author Organization [facility] Address [address] [place] [id number] Care Team Providers Name Role Phone Rupert Tiwari MD Primary Care Provider Reason for Visit Reason Comments Sore Throat Encounter Details Date Type Department Care Team Description 12/06/2019 Telephone [facility], LORETTA Valderrama Sore Throat Diseases[address] EX[address] [place] [address] [place] [address] [place] [address] Allergies Active Allergy Reactions [...] Depressive disorder 08/01/2012 Overview: ICD10 Diagnosis Term Pickle Water Pump Operator Utility History of latent syphilis 02/29/2012 Chronic hepatitis B 10/24/2011 Herpes zoster 04/06/2011 Overview: ICD10 Diagnosis Term Pickle Water Pump Operator Utility Human immunodeficiency virus (HIV) disease 04/06/2011 [...] Effective Dates Phone Address Type AETNA AETNA [facility] [id number] 2017-Present PPO documented as of this encounter Advance Directives Type Date Recorded Patient Hand Coper Explanati on Advance Directives and Living 06/24/2015 10:21 AM Will Power of Medical Educator 06/24/2015 10:21 AM
--- OUTSIDE RECORDS SUMMARY | 2020-04-24 09:42 | XMS REPORT | Summary of Care ---
:1980 Author Organization [facility] Address [address] [place] [address] Care Team Providers Name Role Phone Apolinar Smith Primary Care Provider Reason for Visit Reason Comments Erroneous encounter-disregard Encounter Details Date Type Department Care Team Description 03/26/2020 Telephone [facility] Infectious Jarvis Smith PA Erroneous Diseases- [address] encounter-disregard [facility] Clinics GE[address] [facility] [place], [place] 6th Floor [address] [place], [place] [phone] [address] Allergies Active Allergy Reactions Severity Noted Date Comments Codeine Rash High 04/06/2011 documented as of this encounter (statuses as of 04/01/2020) Medications Medication Sig Dispensed Refills Start Date End Date Status metFORMIN 1,000 mg 1 po BID 60 tablet 11 12/06/2019 Active tabletIndications: Type 2 diabetes mellitus without complication, without long-term current use of insulin traMADol 100 mg 24 hr Take 1 tablet 12 tablet 0 12/26/2019 Active tabletIndications: by mouth daily. Abdominal pain, unspecified abdominal location [id number] Take 200 mg by 90 tablet 3 0 Active o ala (ODEFSEY) 200-25-25 mouth daily. mg TabIndications: Human Take one immunodeficiency virus 200/25/25 mg (HIV) disease tablet once daily with food lisinopril 20 mg 1 po once daily 90 tablet 1 02/26/2020 Active tabletIndications: Essential hypertension documented as of this encounter (statuses as of 04/01/2020) Active Problems Problem Noted Date Intractable diarrhea 11/29/2014 Hypertriglyceridemia 02/06/2013 Depressive disorder 08/01/2012 Overview: ICD10 Diagnosis Term Client Technologies Analyst Utility History of latent syphilis 02/29/2012 Chronic hepatitis B 10/24/2011 Herpes zoster 04/06/2011 Overview: ICD10 Diagnosis Term Client Technologies Analyst Utility Human immunodeficiency virus (HIV) disease 04/06/2011 documented as of this encounter (statuses as of 04/01/2020) Resolved Problems Problem Noted Date Resolved Date Preauricular lymphadenopathy 12/09/2011 05/30/2012 HCV (hepatitis C virus) 04/06/2011 10/24/2011 Early syphilis, other primary syphilis 04/06/2011 0 02/29/2012 documented as of this encounter (statuses as of 04/01/2020) Immunizations Name Administration Dates Next Due HEPATITIS [...] Phone Addre ss Type Group AETNA AETNA [facility] [id number] 2017-Present PPO AGENCY GENERIC AGENCY GENERIC [id number] 2019-Present Agency documented as of this encounter Advance Directives Type Date Recorded Patient Storage Facility Rental Clerk Explanati on Advance Directives and Living 06/24/2015 10:21 AM Will Power of Webmaster 06/24/2015 10:21 AM
[2020-04-24] MEDS ORDERED: BUPIVACAINE 0.5% PF 10 ML VIAL ONE (09:53)
[2020-04-24] MEDS ORDERED: LIDOCAINE 1% MPF 5 ML VIAL ONE (09:53)
--- NOTE | 2020-04-24 11:00 | EDPHYS ---
Physician Documentation [facility] Name: Jaleel Olivas Age: 39 yrs Sex: Male : 1980 Arrival Date: 04/24/2020 Time: 09:03 Bed 16 Private MD: ED Physician Augie Boland HPI: 04/24 09:46 This 39 yrs old Male presents to ER via Ambulatory with complaints of Finger kdr Swelling - Right index. 09:46 The patient or guardian reports deformity, pain, swelling, tenderness. The complaints kdr affect the dorsal aspect of distal phalanx of right index finger. Context: The problem was sustained at work, resulted from an unknown cause. Onset: The symptoms/episode began/occurred gradually, 1 week(s) ago. Modifying factors: The symptoms are alleviated by nothing, the symptoms are aggravated by movement, Touching the area and pressure. Associated signs and symptoms: The patient has no apparent associated signs or symptoms. Severity of symptoms: At their worst the symptoms were mild, in the emergency department the symptoms are unchanged. The patient has not experienced similar symptoms in the past. The patient has not recently seen a physician. Historical: - Allergies: 09:38 Codeine (Hives); sv 09:38 Tape; sv - PMHx: 09:38 Diabetes - NIDDM; HIV; Hypertension; sv - PSHx: 09:38 Appendectomy; sv - Immunization history:: Adult Immunizations up to date, Flu vaccine is up to date. - Social history:: Smoking status: . ROS: 09:46 Constitutional: Negative for fever, chills, and weight loss, Eyes: Negative for injury, kdr pain, redness, and discharge, Neck: Negative for injury, pain, and swelling, Cardiovascular: Negative for chest pain, palpitations, and edema, Respiratory: Negative for shortness of breath, cough, wheezing, and pleuritic chest pain, Abdomen/GI: Negative for abdominal pain, nausea, vomiting, diarrhea, and constipation, Back: Negative for injury and pain, : Negative for injury, bleeding, discharge, and swelling, Skin: Negative for injury, rash, and discoloration, Neuro: Negative for headache, weakness, numbness, tingling, and seizure activity. Psych: Negative for depression, anxiety, suicide ideation, homicidal ideation, and hallucinations, Allergy/Immunology: Negative for hives, rash, and allergies, Endocrine: Negative for neck swelling, polydipsia, polyuria, polyphagia, and marked weight changes, Hematologic/Lymphatic: Negative for swollen nodes, abnormal bleeding, and unusual bruising. 09:46 MS/extremity: Positive for erythema, pain, swelling, tenderness, warmth, of the dorsal aspect of distal phalanx of right index finger. Exam: 09:46 Constitutional: This is a well developed, well nourished patient who is awake, alert, kdr and in no acute distress. Head/Face: Normocephalic, atraumatic. Eyes: Pupils equal round and reactive to light, extra-ocular motions intact. Lids and lashes normal. Conjunctiva and sclera are non-icteric and not injected. Cornea within normal limits. Periorbital areas with no swelling, redness, or edema. 09:46 Musculoskeletal/extremity: Extremities: grossly normal except: noted in the dorsal aspect of distal phalanx of right index finger: decreased ROM, erythema, pain, swelling, tenderness. Vital Signs: 09:36 BP 148 / 115; Pulse 82; Resp 18; Temp 98.2; Pulse Ox 99% ; Weight 72.57 kg; Height 5 sv ft. 4 in. (162.56 cm); Pain 8/10; 10:14 BP 126 / 85; Pulse 82; Resp 16; Pulse Ox 98% ; sv 09:36 Body Mass Index 27.46 (72.57 kg, 162.56 cm) sv Procedures: 10:54 I \T\ D: Incision and drainage was performed for an abscess of the left Index finger kdr paronychium Prepped with Betadine, Anesthetized with 3 ml's 1% Lidocaine. .25% Marcaine 3 ml. Incised with Blunt scissor dissection. Drained small amount purulent fluid. Dressing: sterile 4x4 gauze, the patient tolerated the procedure well. Nerve block: (digital) of dorsal aspect of distal phalanx of left index finger Medication: Lidocaine 1% without epinephrine Marcaine 0.5%, Amount: 6 mls were injected, Effect: the patient's symptoms are improved, Set up for procedure. Performed by Augie Boland MD Patient tolerated well. MDM: 09:17 Patient medically screened. kb 09:46 Data reviewed: vital signs, nurses notes. Counseling: I had a detailed discussion with kdr the patient and/or guardian regarding: the historical points, exam findings, and any diagnostic results supporting the discharge/admit diagnosis, the need for outpatient follow up. 04/24 10:10 Order name: I\T\D Setup; Complete Time: 10:10 sv Administered Medications: 10:29 Drug: Lidocaine (1 %) 5 mg {Note: given to Dr Boland for procedure.} Route: sv Infiltration; 10:29 Drug: Marcaine (0.25 %) 5 ml {Note: given to Dr Boland for procedure.} Route: sv Infiltration; Disposition: 04/24/20 11:00 Discharged to Home. Impression: Paronychia - left index finger. - Condition is Stable. - Discharge Instructions: Paronychia, [id number]. - Prescriptions for Keflex 500 mg Oral Capsule - take 1 capsule by ORAL route every 8 hours for 10 days; 30 capsule. Tramadol 50 mg Oral Tablet - take 1 tablet by ORAL route every 8 hours as needed; 12 tablet. - Work release form, Medication Reconciliation Form, Thank You Letter, Antibiotic Education, Prescription Opioid Use form. - Follow up: Private Physician; When: 2 - 3 days; Reason: If symptoms return, Further diagnostic work-up, Recheck today's complaints, Continuance of care, Re-evaluation by your physician. - Problem is new. - Symptoms have improved. Signatures: Batsheva Barkley, CHURCH HISTORY PROFESSOR-C CHURCH HISTORY PROFESSOR-Ckb Regina Ascencio RN RN Augie Mahoney MD MD [facility] [employer]: (The following items were deleted from the chart) 11:25 11:00 04/24/2020 11:00 Discharged to Home. Impression: Paronychia - left index finger. sv Condition is Stable. Discharge Instructions: Paronychia, [id number]. Prescriptions for Keflex 500 mg Oral Capsule - take 1 capsule by ORAL route every 8 hours for 10 days; 30 capsule, Tramadol 50 mg Oral Tablet - take 1 tablet by ORAL route every 8 hours as needed; 12 tablet. and Forms are Medication Reconciliation Form, Thank You Letter, Antibiotic Education, Prescription Opioid Use. Follow up: Private Physician; When: 2 - 3 days; Reason: If symptoms return, Further diagnostic work-up, Recheck today's complaints, Continuance of care, Re-evaluation by your physician. Problem is new. Symptoms have improved. kdr
--- NOTE | 2020-04-24 11:00 | ER ---
Nurse's Notes [facility] Name: Jaleel Olivas Age: 39 yrs Sex: Male : 1980 Arrival Date: 04/24/2020 Time: 09:03 Bed 16 Private MD: Diagnosis: Paronychia - left index finger Presentation: 04/24 09:36 Chief complaint: Patient states: left 2nd digit swelling and pain. Reports about 2 sv weeks ago it started swelling and he popped it and it drained but the swelling started again. Reports pressure and sharp pain shooting up his hand. Coronavirus screen: Proceed with normal triage. Patient denies a cough. Patient denies shortness of breath or difficulty breathing. Patient denies measured and/or subjective temperature greater than 100.4F prior to today's visit. Patient denies travel on a cruise ship or to a country the [facility] currently lists as an affected area. Patient denies contact with known and/or suspected case of COVID-19. Ebola Screen: No symptoms or risks identified at this time. Initial Sepsis Screen: Does the patient meet any 2 criteria? No. Patient's initial sepsis screen is negative. Does the patient have a suspected source of infection? Yes: Skin breakdown/wound. Risk Assessment: Do you want to hurt yourself or someone else? Patient reports no desire to harm self or others. Onset of symptoms was April 2020. 09:36 Method Of Arrival: Ambulatory sv 09:36 Acuity: LARRY 2 sv Triage Assessment: 09:36 General: Appears in no apparent distress. uncomfortable, well developed, Behavior is sv cooperative, appropriate for age, anxious. Pain: Complains of pain in dorsal aspect of distal phalanx of right index finger Pain radiates to right hand Pain currently is 8 out of 10 on a pain scale. Quality of pain is described as pressure, sharp, Pain began 2 weeks ago Is continuous. Neuro: Level of Consciousness is awake, alert, obeys commands, Oriented to person, place, time, situation, Moves all extremities. Full function Gait is steady, Speech is normal. Respiratory: Airway is patent Respiratory effort is even, unlabored, Respiratory pattern is regular, symmetrical. Derm: Skin is pink, warm \T\ dry. Abscess located on dorsal aspect of distal phalanx of right index finger has no drainage, is red, was lanced by patient prior to arrival, swelling noted. Musculoskeletal: Range of motion: limited in DIP of right index finger. Historical: - Allergies: 09:38 Codeine (Hives); sv 09:38 Tape; sv - PMHx: 09:38 Diabetes - NIDDM; HIV; Hypertension; sv - PSHx: 09:38 Appendectomy; sv - Immunization history:: Adult Immunizations up to date, Flu vaccine is up to date. - Social history:: Smoking status: . Screenin:36 Abuse screen: Denies threats or abuse. Denies injuries from another. Nutritional sv screening: No deficits noted. Tuberculosis screening: No symptoms or risk factors identified. Fall Risk None identified. Assessment: 10:13 Reassessment: Patient appears in no apparent distress at this time. No changes from previously documented assessment. Patient and/or family updated on plan of care and expected duration. Pain level reassessed. Patient is alert, oriented x 3, equal unlabored respirations, skin warm/dry/pink. Waiting for I\T\D to be done. 11:25 Reassessment: Patient appears in no apparent distress at this time. Patient and/or sv family updated on plan of care and expected duration. Pain level reassessed. Patient is alert, oriented x 3, equal unlabored respirations, skin warm/dry/pink. Patient denies pain at this time. Patient states feeling better. Patient states symptoms have improved. Vital Signs: 09:36 BP 148 / 115; Pulse 82; Resp 18; Temp 98.2; Pulse Ox 99% ; Weight 72.57 kg; Height 5 sv ft. 4 in. (162.56 cm); Pain 8/10; 10:14 BP 126 / 85; Pulse 82; Resp 16; Pulse Ox 98% ; sv 09:36 Body Mass Index 27.46 (72.57 kg, 162.56 cm) sv ED Course: 09:03 Patient arrived in ED. as 09:15 Regina Ascencio RN is Primary Nurse. sv 09:17 Batsheva Barkley FNP-C is PHCP. kb 09:17 Augie Boland MD is Attending Physician. kb 09:36 Arm band placed on. sv 09:36 Patient has correct armband on for positive identification. Bed in low position. Call sv light in reach. Pulse ox on. NIBP on. Door closed. Head of bed elevated. 09:37 Triage completed. sv 09:50 Assist provider with I \T\ D: Set up I\T\D tray. sv 10:53 Assist provider with I \T\ D: of an abscess on right index finger Performed by Augie Boland MD Patient tolerated well. 11:25 Patient did not have IV access during this emergency room visit. sv Administered Medications: 10:29 Drug: Lidocaine (1 %) 5 mg {Note: given to Dr Boland for procedure.} Route: sv Infiltration; 10:29 Drug: Marcaine (0.25 %) 5 ml {Note: given to Dr Boland for procedure.} Route: sv Infiltration; Outcome: 11:00 Discharge ordered by . kdr 11:25 Discharged to home ambulatory. sv 11:25 Condition: stable 11:25 Discharge instructions given to patient, Instructed on discharge instructions, follow up and referral plans. no drinking with medication, no driving heavy equipment, medication usage, wound care, Demonstrated understanding of instructions, follow-up care, medications, wound care, Prescriptions given X 2. 11:25 Patient left the ED. sv Signatures: Batsheva Barkley, FIELD CONTROL INSPECTOR-C FIELD CONTROL INSPECTOR-Regina العلي, Augie Zamudio RN, MD MD kdr Martinez, Amelia as
[2020-04-24 11:31] VITALS: TEMP 98.2
[2020-04-24 11:32] VITALS: BP 126/85; O2SAT 98
== END 2020-04-24 11:25 | disposition home or self-care (01) ==
LOC: ER 09:00
PROC: 0H9GXZZ Drainage of Left Hand Skin, External Approach (ICD-10-PCS; principal; 2020-04-24)
DX: L03.012 Cellulitis of left finger (principal); Z88.6 Allergy status to analgesic agent
CPT/HCPCS: 64450; 99284

== ENCOUNTER 2021-03-22 00:44 | Emergency (ER) | payer OTHER, SELFPAY ==
--- OUTSIDE RECORDS SUMMARY | 2021-03-22 00:51 | XMS REPORT | Continuity of Care Document ---
:1980 Author Organization [facility] t Address [address] [place] [address] Care Team Providers Name Role Phone Luis BURGOS Attending Clinician Chan Erickson DO Attending Clinician Karie Attending Clinician [phone] James Watts Attending Clinician Unavailable Berto Attending Clinician Unavailable Saulo Dhillon Attending Clinician Unavailable Extra Hours Attending Clinician Unavailable Cuauhtemoc MedAdherence, S Attending Clinician Unavailable Christopher MedAdherence, Attending Clinician Unavailable David MedAdherence Attending Clinician Unavailable Zuly MedAdherence, Attending Clinician Unavailable Calin Attending Clinician Unavailable Vivienne Attending Clinician Unavailable Meño Attending Clinician Unavailable Calvin Attending Clinician Unavailable Meño Attending Clinician Unavailable Nato Attending Clinician Unavailable Rafal Attending Clinician Unavailable Cesar Attending Clinician [phone] Balbir Attending Clinician [phone] Harsh Attending Clinician Unavailable Ebonie Attending Clinician Unavailable Orin Attending Clinician Unavailable Kevin Attending Clinician Unavailable Meño Attending Clinician Unavailable Lucina Attending Clinician Unavailable Thomas Attending Clinician [phone] Mo Attending Clinician Unavailable Kailash Attending Clinician Unavailable Oscar Attending Clinician Unavailable Yamilet Attending Clinician [phone] Cast Attending Clinician Unavailable Pipe Attending Clinician [phone] Grace Attending Clinician [phone] Roshan Attending Clinician Unavailable Jeffery Attending Clinician Unavailable Sy Attending Clinician Unavailable Wenceslao Attending Clinician Unavailable Leatha Riggs Attending Clinician [phone] Shashank Attending Clinician [phone] Pollo Attending Clinician Unavailable Xuan Attending Clinician Unavailable Reg Attending Clinician Unavailable Andrés Attending Clinician Unavailable Abi Attending Clinician [phone] Bronwyn Jerome Attending Clinician Unavailable Gina Attending Clinician [phone] Jack Attending Clinician Unavailable Siomara Attending Clinician Unavailable Estee Attending Clinician [phone] Garcia Attending Clinician [phone] Dany Attending Clinician Unavailable Karie Unavailable [phone] Cesar Unavailable [phone] Riggs Leatha Unavailable [phone] Payers Payer Name Policy Type Policy Number Effective Date Expiration Date S chetna Stephenson 11 [id number] 2019 2020 Legacy 101-200% 00:00:00 00:00:00 [facility] Stevo Stephenson 11 [id number] 2019 2020 Legacy 101-200% 00:00:00 00:00:00 [facility] Stevo [facility] CI [id number] 2019 2020 Legacy 101-200% 00:00:00 00:00:00 [facility] Stevo Stephenson 11 [id number] 2018 2019 Legacy 101-200% 00:00:00 00:00:00 [facility] Stevo Stephenson 11 [id number] 2016 2017 Legacy 101-200% 00:00:00 00:00:00 [facility] Stevo Stephenson 11 [id number] 2012 2017 Legacy 101-200% 00:00:00 00:00:00 [facility] Health Problems Condition Condition Condition Status Onset Resolution Last Treating Co mments Source Name Details Category Date Date Treatment Clinician Date abscess, Condition Active 2019-04-26 Nempatrice, [facility] perianal 04-26 16:07:35 Rupert Clark i 00:00: ty 00 Health Diabetes Condition Active 2017-12-21 Nemecek, [facility] mellitus, 04-17 10:15:14 Rupert lezama type II 00:00: ty 00 Health Hyperlipid Condition Active 2015-112017-07-20 Nemecek, [facility] emia 11-21 20:06:19 Rupert Garcia 00:00: ty 00 Health Preventive Condition Active 2015-112017-04-17 Nemecek, [facility] health 11-21 11:44:53 Rupert Garcia care 00:00: ty 00 Health ANXIETY Condition Active 2016-09-21 Cesar [facility] DISORDER, 07-21 09:37:47 Zishan Commu ni UNSPECIFIE 00:00: ty D 00 Health Hallucinat Condition Active 2016-09-21 Adair Guerrero ions 06-09 09:37:47 Dc Garcia 00:00: ty 00 Health HEPATITIS Condition Active 2017-04-17 Adair Tiwari B, CHRONIC 05-06 11:44:53 Rupert Quevedo uni 00:00: ty 00 Health PTSD Condition Active 2016-09-21 Jerry Tiwari egacy 05-06 09:37:47 Rupert Clarki 00:00: ty 00 Health History of Past Illness Condition Condition Condition Status Onset Resolution Last Treating Co mments Source Name Details Category Date Date Treatment Clinician Date Regular Condition Inactiv 2017-12-21 2017-12-21 Adair Tiwari astigmatis e 06-09 00:00:00 10:31:37 Rupert Villagomez mmuni m, 00:00: ty bilateral 00 Health Myopia - Condition Inactiv 2017-12-21 2017-12-21 Adair Tiwari OU e 06-09 00:00:00 10:31:37 Rupert Commun i 00:00: ty 00 Health Screening Condition Inactiv 2016-06-16 2016-06-09 Adair Riggs examinatio e 06-09 00:00:00 09:56:49 [facility] for 00:00: ty other 00 Health specified viral diseases SPECIAL Condition Inactiv 2011-112016-05-06 2016-05-06 Adair Tiwari SCREENING e 12-17 00:00:00 10:53:58 Rupert rosado EXAMINATIO 00:00: ty N OTH SPEC 00 Health VIRAL DZ MYOPIA Condition Inactiv 2011-112016-05-06 2016-05-06 Adair Tiwari e 12-17 00:00:00 10:53:58 Rupert Commun i 00:00: ty 00 Health ASTIGMATIS Condition Inactiv 2011-112016-05-06 2016-05-06 Adair Tiwari M e 12-17 00:00:00 10:53:58 Rupert Commun i 00:00: ty 00 Health Allergies, Adverse Reactions, Alerts Allergy Allergy Status Severity Reaction(s) Onset Inactive Treating Comm ents Source Name Type Date Date Clinician CODEINE Drug Active rash 2011-11 [facility] allergy 2-11 Communi (disorde 00:00: ty r) 00 Health Social History Social Habit Start Date Stop Date Quantity Comments Source social history 2019-04-26 2019-04-26 reviewed today [facility] reviewed E&M 15:28:24 15:28:24 Health drug use, illicit 2019-04-26 2019-04-26 Never [facility] 15:28:24 15:28:24 Health alcohol use 2019-04-26 2019-04-26 Currently [facility] ity 15:28:24 15:28:24 Health social history E&M 2019-04-26 2019-04-26 Single. Not [facility] 15:28:24 15:28:24 homeless. Born Health in [facility]. City: [place]. State: [place]. Employed full-time. [employer] . Highest education level: some college. Sex at : Male. Sexual orientation: Botello. Gender identity: Male. Gender of partner(s): Male. Age of first sexual intercourse: 16. Sexually Active: No. driven sexual orientation 2019-04-26 2019-04-26 Bot[place] [facility] 15:28:24 15:28:24 Health passive cigarette 2019-04-26 2019-04-26 No [facility] smoke exposure 15:28:24 15:28:24 Health assessment of 2019-04-26 2019-04-26 Adequate [facility] unity health literacy 15:28:24 15:28:24 Health ([facility] 2014 Standards, 3C10) time of call 2019-04-25 2019-04-25 04/25/2019 11:55 [facility] 11:55:04 11:55:04 AM Health smoking, advice to 2017-04-17 2017-04-17 Yes [facility] quit 10:47:27 10:47:27 Health tobacco use 2016-09-14 2016-09-14 Currently [facility] (cigarettes, cigar, 10:38:38 10:38:38 Healt h chew, pipe) alcohol use, 2016-06-09 2016-06-09 few times per [facility] Co mmunity frequency 11:43:33 11:43:33 month Health home/family 2016-06-09 2016-06-09 LIves with [facility] ity situation, 11:43:33 11:43:33 sister and his Health assessment father and her 2 sons.Counts on them for work. family support 2016-06-09 2016-06-09 Grew up in a two [facility] 11:43:33 11:43:33 parent family Health with a younger sister. Father was a [employer] employee and mother worked as a postal employee mother of scleroderma. alcohol use, number 2016-05-06 2016-05-06 9 drinks per Leg [facility] maximum drinks per 09:53:46 09:53:46 month Health occasion sex at 2016-05-06 2016-05-06 Male [facility] Commu nity 09:53:46 09:53:46 Health Occupation #1 2016-05-06 2016-05-06 [facility] 09:53:46 09:53:46 Health patient considered 2016-05-06 2016-05-06 No [facility] to be homeless 09:53:46 09:53:46 Health Smoking Status Start Date Stop Date Source Ex-smoker (finding) 2019-04-26 15:28:24 2019-04-26 [facility] [employer] 15:28:24 Smokes tobacco daily 2017-04-17 10:47:27 [facility] (finding) Occasional tobacco smoker 2016-09-14 10:38:38 [facility] (finding) Never smoked tobacco [facility] (finding) Medications Ordered Filled Start Stop Current Ordering Indication Dosage Frequency Signature Comments Components Source Medication Medication Date Date Medication? Clinician (SIG) Name Name GELA 2018-11 Yes Rupert TAKE ONE [facility] (EMTRICITAB 1-27 Nemecek TABLET BY Communi -RILPIVIR-T 00:00: MOUTH ONCE ty ENOFOVIR) 00 DAILY WITH [facility] 200-25-300 FOOD. MG TABS STORE IN ORIGINAL BOTTLE AT ROOM TEMPERATUR E. (LISINOPRIL Yes Rupert 1{Table 1xD TAKE 1 L egacy ) 20 MG 7-15 Nemecek t} TABLET BY Comm uni TABS 00:00: MOUTH ty 00 EVERY DAY Health ANTABUSE 2017-11 Yes Zishan 1{Table 1xD 1 By Mouth [facility] (DISULFIRAM 2-20 Samiuddin t} Every Day Communi ) 250 MG 00:00: ty TABS 00 Health (METFORMIN Yes Rupert 1 by mouth L egacy HCL) 500 MG 6-12 Nemecek twice a Co mmuni TABS 00:00: day ty 00 Health (NICOTINE) 2015-11 Yes [facility] -14-7 1-25 Communi MG/24HR KIT 00:00: ty 00 Health LEXAPRO Yes Zishan 1 By Mouth Mala riojas (ESCITALOPR 9-15 Samiuddin Every Day Communi AM OXALATE) 00:00: ty 10 MG TABS 00 Health RISPERDAL 2018- No Robby 1 By Mouth L egacy (RISPERIDON 06-09 Masters at bedtime Communi E) 2 MG 00:00: 00:00 ty TABS 00 :00 Health MIRTAZAPINE 2011-11 2018- No [facility] (MIRTAZAPIN 12-17 Communi E TABS) 00:00: 00:00 ty TABS 00 :00 Health Vital Signs Vital Name Observation Time Observation Value Comments Source temperature E&M 2019-04-26 15:28:24 98.1 [degF] [facility] Health blood pressure, 2019-04-26 15:28:24 98 mm[Hg] [facility] diastolic Health blood pressure, 2019-04-26 15:28:24 144 mm[Hg] [facility] systolic Health pulse rate E&M 2019-04-26 15:28:24 112 /min [facility] oxygen saturation, 2019-04-26 15:28:24 98 % Mala riojas [facility] oximetry Health weight E&M 2019-04-26 15:28:24 145 [lb_av] [facility] weight in kilograms 2019-04-26 15:28:24 65.91 kg L egacy [facility] E& Health temperature site 2019-04-26 15:28:24 oral Lega cy [facility] Health height in 2019-04-26 15:28:24 165.10 cm [facility] C ommunity centimeters E&M Health blood pressure, 2018-12-24 09:50:41 99 mm[Hg] [facility] diastolic Health blood pressure, 2018-12-24 09:50:41 155 mm[Hg] [facility] systolic Health pulse rate E&M 2018-12-24 09:50:41 91` /min [facility] weight E&M 2018-12-24 09:50:41 157 [lb_av] [facility] C ommunity Health weight in kilograms 2018-12-24 09:50:41 71.36 [address] [facility] E&M Health height in 2018-12-24 09:50:41 165.10 cm [facility] C ommunity centimeters E&M Health blood pressure, 2018-12-21 09:56:09 86 mm[Hg] Leg[facility] diastolic Health blood pressure, 2018-12-21 09:56:09 136 mm[Hg] [facility] systolic Health weight E&M 2018-12-21 09:56:09 153 [lb_av] [facility] C ommunity Health weight in kilograms 2018-12-21 09:56:09 69.55 kg L [facility] E&M Health oxygen saturation, 2018-12-21 09:56:09 98 % [facility] oximetry Health respiratory rate E&M 2018-12-21 09:56:09 16 /min [facility] Health pulse rate E&M 2018-12-21 09:56:09 102 /min [facility] Health temperature site 2018-12-21 09:56:09 oral Lega [facility] Health temperature E&M 2018-12-21 09:56:09 98.1 [degF] [facility] Health height in 2018-12-21 09:56:09 165.10 cm [facility] C ommunity centimeters E&M Health blood pressure, 2018-10-25 11:52:22 89 mm[Hg] [facility] diastolic Health blood pressure, 2018-10-25 11:52:22 166 mm[Hg] [facility] systolic Health pulse rate E&M 2018-10-25 11:52:22 83 /min [facility] Health weight E&M 2018-10-25 11:52:22 161 [lb_av] [facility] C ommunity Health weight in kilograms 2018-10-25 11:52:22 73.18 kg L [facility] E& Health height in 2018-10-25 11:52:22 165.10 cm [facility] C ommunity centimeters E&M Health blood pressure, 2017-12-21 10:04:46 90 mm[Hg] [facility] diastolic Health blood pressure, 2017-12-21 10:04:46 139 mm[Hg] Leg[facility] y [facility] systolic Health respiratory rate E&M 2017-12-21 10:04:46 16 /min [facility] Health pulse rate E&M 2017-12-21 10:04:46 66 /min [facility] oxygen saturation, 2017-12-21 10:04:46 98 % [facility] oximetry Health temperature site 2017-12-21 10:04:46 tympanic Lega [facility] Health temperature E&M 2017-12-21 10:04:46 98.1 [degF] [facility] Health height in 2017-12-21 10:04:46 165.10 cm [facility] C ommunity centimeters E&M Health weight E&M 2017-12-21 10:04:46 161 [lb_av] [facility] weight in kilograms 2017-12-21 10:04:46 73.18 kg L [facility] E& Health blood pressure, 2017-07-20 12:39:39 87 mm[Hg] [facility] diastolic Health blood pressure, 2017-07-20 12:39:39 138 mm[Hg] [facility] systolic Health pulse rate E&M 2017-07-20 12:39:39 76 /min [facility] Health respiratory rate E&M 2017-07-20 12:39:39 16 /min [facility] temperature site 2017-07-20 12:39:39 tympanic Lega [facility] oxygen saturation, 2017-07-20 12:39:39 97 % [facility] temperature E&M 2017-07-20 12:39:39 98.7 [degF] [facility] Health weight E&M 2017-07-20 12:39:39 161.80 [lb_av] [facility] Health weight in kilograms 2017-07-20 12:39:39 73.55 kg [facility] E& Health height in 2017-07-20 12:39:39 165.10 cm [facility] C ommunity centimeters E&M Health blood pressure, 2017-04-17 10:47:27 100 mm[Hg] [facility] diastolic Health blood pressure, 2017-04-17 10:47:27 138 mm[Hg] [facility] systolic Health temperature site 2017-04-17 10:47:27 tympanic Lega [facility] Health pulse rate E&M 2017-04-17 10:47:27 103 /min [facility] Health respiratory rate E&M 2017-04-17 10:47:27 16 /min [facility] oxygen saturation, 2017-04-17 10:47:27 98 % [facility] oximetry Health temperature E&M 2017-04-17 10:47:27 99.5 [degF] [facility] Health weight E&M 2017-04-17 10:47:27 151 [lb_av] [facility] weight in kilograms 2017-04-17 10:47:27 68.64 kg L [facility] E& Health height in 2017-04-17 10:47:27 165.10 cm [facility] C ommunity centimeters E&M Health blood pressure, 2016-10-20 10:15:15 88 mm[Hg] [facility] diastolic Health blood pressure, 2016-10-20 10:15:15 135 mm[Hg] [facility] systolic Health pulse rate E&M 2016-10-20 10:15:15 92 /min [facility] Health weight E&M 2016-10-20 10:15:15 175.13 [lb_av] [facility] weight [facility] 2016-10-20 10:15:15 79.60 kg [facility] E& Health height in 2016-10-20 10:15:15 165.10 [facility] centimeters E&M Health blood pressure, 2016-09-21 09:13:37 80 mm[Hg] [facility] diastolic Health blood pressure, 2016-09-21 09:13:37 130 mm[Hg] Leg[facility] y [facility] systolic Health pulse rate E&M 2016-09-21 09:13:37 85 /min [facility] temperature site 2016-09-21 09:13:37 tympanic Lega [facility] Health oxygen saturation, 2016-09-21 09:13:37 98 % [facility] oximetry Health temperature E&M 2016-09-21 09:13:37 97.5 [degF] [facility] Health weight E&M 2016-09-21 09:13:37 175 [lb_av] [facility] C ommunity Health weight in kilograms 2016-09-21 09:13:37 79.55 kg [facility] E&M Health height in 2016-09-21 09:13:37 165.10 cm [facility] C ommunity centimeters E&M Health blood pressure, 2016-07-21 12:17:59 87 mm[Hg] Leg[facility] y [facility] diastolic Health blood pressure, 2016-07-21 12:17:59 138 mm[Hg] Leg[facility] y [facility] systolic Health pulse rate E&M 2016-07-21 12:17:59 96 /min [facility] Health weight E&M 2016-07-21 12:17:59 175.25 [lb_av] [facility] Health weight in kilograms 2016-07-21 12:17:59 79.66 kg [facility] E& Health height in 2016-07-21 12:17:59 165.10 cm [facility] C ommunity centimeters E&M Health blood pressure, 2016-06-09 11:43:33 90 mm[Hg] Leg[facility] diastolic Health blood pressure, 2016-06-09 11:43:33 132 mm[Hg] Leg[facility] systolic Health pulse rate E&M 2016-06-09 11:43:33 89 /min [facility] height in 2016-06-09 11:43:33 165.10 cm [facility] C ommunity centimeters E&M Health blood pressure, 2016-05-06 09:53:46 84 mm[Hg] Leg[facility] y [facility] diastolic Health blood pressure, 2016-05-06 09:53:46 132 mm[Hg] [facility] systolic Health temperature site 2016-05-06 09:53:46 tympanic Lega cy [facility] Health pulse rate E&M 2016-05-06 09:53:46 97 /min [facility] Health temperature E&M 2016-05-06 09:53:46 97.5 [degF] [facility] Health oxygen saturation, 2016-05-06 09:53:46 98 % [facility] oximetry Health weight E&M 2016-05-06 09:53:46 181.60 [lb_av] [facility] Health weight in kilograms 2016-05-06 09:53:46 82.55 kg [facility] E&M Health height in 2016-05-06 09:53:46 165.10 cm [facility] C ommunity centimeters E&M Health Procedures Procedure Date / Time Performing Clinician Source Performed Spherocyl, SV, plano to +/- 2017-11-26 11:18:56 Ashlee Verdugo [facility] 4.00d sphere, 0.12 to 2.00d Heal th cyl, per lens Frames, purchases 2017-11-26 11:18:34 Ashlee Verdugo [facility] Est Patient Intermediate 2017-11-24 11:18:26 Nestor Guzman [facility] [id number] [place] [address] Primary Care Medical Case 2017-02-23 17:27:29 Kasia Betancur [facility] Primary Care Medical Case 2017-02-16 17:56:43 [facility] Primary Care Medical Case 2017-02-13 18:42:43 Kasia Betancur [facility] Dispensing Visit (UNLIVSTED 2016-07-21 09:54:30 [facility]EDURE[facility] Primary Care Medical Case 2016-07-05 19:13:18 Kasia Bteancur [facility] Primary Care Medical Case 2016-07-04 17:24:31 [facility] Frames, purchases 2016-06-14 10:10:24 Shirley Encarnacion [facility] Spherocyl, SV, plano to +/- 2016-06-14 10:09:52 Shirley Encarnacion [facility] 4.00d sphere, 0.12 to 2.00d Heal th cyl, per lens Diagnostic evaluation with 2016-06-09 13:54:25 Dc Guerrero [facility] [address] Health Est Patient Intermediate 2016-06-09 09:55:53 Casa Riggs [facility] [address] Health Est Patient Intermediate 2016-06-09 09:13:24 Nestor Guzman [facility] [id number] [place] [address] Primary Care Medical Case 2016-05-19 16:23:45 Kasia Betancur [facility] Primary Care Medical Case 2016-05-18 18:11:23 Kasia Betancur [facility] Primary Care Medical Case 2016-05-17 17:22:38 Kasia Betancur [facility] Primary Care Medical Case 2016-05-13 16:51:20 Kasia Betancur [facility] Primary Care Medical Case 2016-05-12 17:31:08 Kasia Betancur [facility] Primary Care - Service 2016-05-06 13:01:[address] [facility] Primary Care - 2016-05-06 13:01:29 Marimar Betancurasmita Roqueje Commu nity Assesment-Comprehensive Health [facility] Primary Care Medical Case 2016-05-06 13:01:29 Kasia Betancur [facility] Health Dispensing Visit (UNLIVSTED 2012-10-25 13:23:10 [facility] SERVICE/PROCEDURE) Frames, purchases 2012-10-16 16:24:53 [facility] Health Spherocyl, SV, plano to +/- 2012-10-16 16:24:23 [facility] Shirley [facility] 4.00d sphere, 0.12 to 2.00d Heal th cyl, per lens Est Patient Intermediate 2012-10-16 16:00:28 Casa Riggs [facility] [address] [facility] New Patient Intermediate 2012-10-16 15:26:36 Nestor Guzman [facility] [address] Health Encounters Start End Encounter Admission Attending Care Care Encounter Source Date/Time Date/Time Type Type Clinicians Facility Department ID 2021-02-12 2021-02-12 Refill [facility] [id number] 00:00:00 00:00:00 [facility] [id number] CLINICS [id number] 2021-02-11 2021-02-11 Telephone [facility] [id number] 00:00:00 00:00:00 [facility] [id number] CLINICS [id number] 2021-02-10 2021-02-[address]840[address]114 [id number] 00:00:00 00:00:00 [facility] [id number] CLINICS [id number] 2021-02-08 2021-02-[id number] 1545 [id number] 00:00:00 00:00:00 [facility] [id number] [facility] [id number] 2021-02-07 2021-02-[id number] 00:00:00 00:00:00 [facility] [id number] [facility] [id number] 2021-02-03 2021-02-[id number] 00:00:00 00:00:00 [facility] [id number] [facility] [id number] 2021-01-21 2021-01-21 Patient [facility] [id number] 00:00:00 00:00:00 Outreach [facility] [id number] [facility] [id number] GOPI [id number] 2020-10-26 2020-10-[id number] 10:46:04 11:16:04 Visit [facility] [id number] CLINICS [id number] 2019-11-20 2019-11-20 Office Rupert Tiwari [facility] Adult En counter/ [facility] 00:00:00 00:00:00 Visit Uzair Sidhu Medic ine [id number] [facility] [id number] [facility] 2019-11-15 2019-11-15 Office Berto [facility] Adult Encou nter/ [facility] 00:00:00 00:00:00 Visit Araceli Medicine [id number] Co mmuni [id number] [facility] 2019-11-02 2019-11-02 Office LATA TiwariFORMERLY [facility] Adult Encount er/ [facility] 00:00:00 00:00:00 Visit Rupert Medicine [id number] Co mmuni [id number] [facility] 2019-11-02 2019-11-02 Office KarieRupert LATAFORMERLY [facility] Adult En counter/ Legacy 00:00:00 00:00:00 Visit Elva Nur [facility] [id number] [facility] [id number] [facility] 2019-11-02 2019-11-02 Office Extra [facility] Legacy Encounter/ Legacy 00:00:00 00:00:00 Visit Hours, [facility] [id number] [facility] [id number] [facility] 2019-11-02 2019-11-02 Office Extra [facility] Legacy Encounter/ Legacy 00:00:00 00:00:00 Visit [facility], [facility] [id number] [facility] [id number] [facility] 2019-10-17 2019-10-17 Office Rupert Tiwari [facility] Legacy Enco unter/ Legacy 00:00:00 00:00:00 Visit Naomie Nick [id number] [facility] [id number] [facility] 2019-10-14 2019-10-14 Office Rupert TiwariFORMERLY [facility] Adult En counter/ Legacy 00:00:00 00:00:00 Visit Chaney Nique Medi [facility] [id number] [facility] [id number] [facility] 2019-09-30 2019-09-30 Office Berto [facility] Adult Encou nter/ Legacy 00:00:00 00:00:00 Visit Araceli Medicine [id number] Co mmuni 852476 [facility] 2019-09-17 2019-09-17 Office Rupert Tiwari [facility] Adult En counter/ Legacy 00:00:00 00:00:00 Visit Jaci Gallardo Medicine [id number] [facility] 135062 [facility] 2019-08-23 2019-08-23 Office Rupert Tiwari Legacy Enco unter/ Legacy 00:00:00 00:00:00 Visit Zuly Cristobal,Marni ommunity [id number] [facility] [id number] [facility] Health 2019-07-17 2019-07-17 Signal Repairer, [facility] YES Prep Encounter / Legacy 00:00:00 00:00:00 Visit [facility] [id number] [facility] [id number] [facility] 2019-05-21 2019-05-21 Office Rupert Tiwari [facility] Adult En counter/ Legacy 00:00:00 00:00:00 Visit Naomie Nick Medicine [id number] [facility] 899105 [facility] 2019-05-17 2019-05-17 Office Berto [facility] Adult Encou nter/ Legacy 00:00:00 00:00:00 Visit Araceli Agustin [id number] Co mmuni [id number] [facility] 2019-04-30 2019-04-30 Office Karie [facility] Adult Encount er/ Legacy 00:00:00 00:00:00 Visit Rupert Agustin [id number] Co mmuni [id number] [facility] 2019-04-29 2019-04-29 Office Caterina Palafox [facility] Adult Encounter/ Legacy 00:00:00 00:00:00 Visit Derick Wilder [id number] [facility] 854909 [facility] 2019-04-26 2019-04-26 Office Karie [facility] Adult Encount er/ Legacy 00:00:00 00:00:00 Visit Rupert Agustin [id number] Co mmuni [id number] [facility] 2019-04-26 2019-04-26 Office Karie [facility] Adult Encount er/ Legacy 00:00:00 00:00:00 Visit Rupert Agustin [id number] Co mmuni 813339 [facility] 2019-04-26 2019-04-26 Office Karie [facility] Adult Encount er/ Legacy 00:00:00 00:00:00 Visit Rupert Agustin [id number] Co mmuni 522016 [facility] 2019-04-26 2019-04-26 Office Rueprt Tiwari [facility] Adult En counter/ Legacy 00:00:00 00:00:00 Visit Derick Wilder [id number] [facility] 132725 Health 2019-04-25 2019-04-25 Office Caterina Palafox [facility] Mary Ann Ridguerrero e Encounter/ Legacy 00:00:00 00:00:00 Visit Agustina Simpson [id number] [facility] 941133 ty Health 2019-04-25 2019-04-25 Office Karie [facility] Adult Encount er/ Legacy 00:00:00 00:00:00 Visit [facility] [id number] Co mmuni [id number] Health 2019-04-25 2019-04-25 Office Karie [facility] Adult Encount er/ Legacy 00:00:00 00:00:00 Visit Rupert [facility] [id number] Co mmuni 845274 Health 2019-03-13 2019-03-13 Office Isabel Wilder [facility] [place] nto Encounter/ Legacy 00:00:00 00:00:00 Visit Clarissa Dutton Family [id number] [facility] Practice 138250 [facility] 2019-02-27 2019-02-27 Office Zuly [facility] Adult Encount er/ Legacy 00:00:00 00:00:00 [facility] [id number] 9 [facility] e,, Marni [id number] Health 2019-02-08 2019-02-08 Office [facility]ter/ Legacy 00:00:00 00:00:00 [id number] monii Services 183617 [facility] 2019-01-15 2019-01-15 Office Cesar [facility] Encount er/ Legacy 00:00:00 00:00:00 Visit Dc Saldana [id number] [facility] 147476 Health 2018-12-24 2018-12-24 Office Dc Guerrero [facility] Kenzie Encounter/ Legacy 00:00:00 00:00:00 Visit Lizy Mcgregor [place] [id number] [facility] 527435 [facility] 2018-12-21 2018-12-21 Office Vivienne [facility] Adult Encounte r/ Legacy 00:00:00 00:00:00 Visit Caterina [facility] [id number] Co mmuni [id number] Health 2018-12-21 2018-12-21 Office Karie [facility] Adult Encount er/ Legacy 00:00:00 00:00:00 Visit Rupert [facility] [id number] Co mmuni [id number] [facility] 2018-12-21 2018-12-21 Office Rupert TiwariFORMERLY [facility] Adult En counter/ Legacy 00:00:00 00:00:00 Visit Caterina Palafox [facility] [id number] Communi 448860 [facility] 2018-10-25 2018-10-25 Office Karie [facility] Adult Encount er/ Legacy 00:00:00 00:00:00 Visit Rupert [facility] [id number] Co mmuni [id number] [facility] 2018-10-25 2018-10-25 Office Karie [facility] Adult Encount er/ Legacy 00:00:00 00:00:00 Visit Rupert [facility] [id number] Co mmuni [id number] [facility] 2018-10-25 2018-10-25 Office Dc Guerrero [facility] Branard Encounter/ Legacy 00:00:00 00:00:00 Visit [facility] [id number] [facility] [id number] [facility] 2018-10-25 2018-10-25 Office Rupert Tiwari [facility] Adult En counter/ Legacy 00:00:00 00:00:00 Visit [facility] [id number] Communi 730983 [facility] 2018-10-08 2018-10-08 Office Rupert Tiwari [facility] Adult En counter/ Legacy 00:00:00 00:00:00 Visit Greer Lori M edicine [id number] Commun [id number] [facility] 2018-10-05 2018-10-05 Office SANJAY Loomis Legje Encounter / Legacy 00:00:00 00:00:00 [facility] [id number] [facility] [id number] [facility] Health 2018-05-22 2018-05-22 Office Karie [facility] Adult Encount er/ Legacy 00:00:00 00:00:00 Visit [facility] [id number] Co mmuni 250296 [facility] 2018-05-21 2018-05-21 Office Karie [facility] Adult Encount er/ Legacy 00:00:00 00:00:00 Visit Rupert [facility] [id number] Co mmviveki [id number] Health 2018-05-21 2018-05-21 Office LATA TiwariFORMERLY [facility] Adult Encount er/ Legacy 00:00:00 00:00:00 Visit Rupert [facility] [id number] Co mmuni [id number] [facility] 2018-05-21 2018-05-21 Office Karie [facility] Adult Encount er/ Legacy 00:00:00 00:00:00 Visit Rupert [facility] [id number] Co mmuni [id number] [facility] 2018-04-03 2018-04-03 Office Rupert Tiwari [facility] Adult En counter/ Legacy 00:00:00 00:00:00 Visit Marni Sr Medicine [id number] Commun [id number] [facility] 2018-04-01 2018-04-01 Office Rupert Tiwari [facility] Adult En counter/ Legacy 00:00:00 00:00:00 Visit Marni Sr Medicine [id number] Commun [id number] [facility] 2018-03-07 2018-03-07 Office Rupert Tiwari [facility] Adult En counter/ Legacy 00:00:00 00:00:00 Visit Marni Sr Medicine [id number] Communi [id number] [facility] 2018-03-06 2018-03-06 Office Rupert TiwariFORMERLY [facility] Adult En counter/ Legacy 00:00:00 00:00:00 Visit Marni Sr Medicine [id number] Commun [id number] [facility] 2018-01-03 2018-01-03 Office LATA Brown Legje Encounter/ Legacy 00:00:00 00:00:00 Visit [facility] [id number] C [facility] 228318 [facility] 2017-12-21 2017-12-21 Office LATA WilderFORMERLY [facility] Adult Encounte r/ Legacy 00:00:00 00:00:00 Visit Denise [facility] [id number] [facility] 287534 [facility] 2017-12-21 2017-12-21 Office Karie [facility] Adult Encount er/ Legacy 00:00:00 00:00:00 Visit [facility] [id number] Co mmuni [id number] [facility] 2017-12-21 2017-12-21 Office Karie [facility] Adult Encount er/ Legacy 00:00:00 00:00:00 Visit [facility] [id number] Co mmuni 213236 [facility] 2017-12-21 2017-12-21 Office Rupert Tiwari [facility] Adult En counter/ Legacy 00:00:00 00:00:00 Visit Caterina Palafox [facility] [id number] Communi 680776 [facility] 2017-12-21 2017-12-21 Office Lucina [facility] Vision Encoun ter/ Legacy 00:00:00 00:00:00 Visit Ashlee [id number] Com alonzo 065750 [facility] 2017-11-24 2017-11-24 Office Jigneshraymundootilia [facility] Adult Encount er/ Legacy 00:00:00 00:00:00 Visit [facility] [id number] Co mmuni [id number] [facility] 2017-11-24 2017-11-24 Office Lucina [facility] Vision Encoun ter/ Legacy 00:00:00 00:00:00 Visit Ashlee [id number] Com alonzo 095916 [facility] 2017-11-24 2017-11-24 Office Nestor Guzman [facility] Vision Enc ounter/ Legacy 00:00:00 00:00:00 Visit [id number] Com alonzo 710500 [facility] 2017-11-24 2017-11-24 Office Nestor Guzman [facility] Vision Enc ounter/ Legacy 00:00:00 00:00:00 Visit [id number] Com alonzo 284865 [facility] 2017-11-24 2017-11-24 Office Nestor Guzman [facility] Vision Enc ounter/ Legacy 00:00:00 00:00:00 Visit [id number] Com alonzo 074978 [facility] 2017-11-24 2017-11-24 Office Nestor Guzman [facility] Vision Enc ounter/ Legacy 00:00:00 00:00:00 Visit Ashlee Verdugo [id number] Communi 797106 [facility] 2017-11-22 2017-11-22 Office Rupert TiwariFORMERLY [facility] Adult En counter/ Legacy 00:00:00 00:00:00 Visit Marni Sr Medicine [id number] Communi [id number] Health 2017-11-22 2017-11-22 Office Silvia Hassan LM Adult En counter/ Legacy 00:00:00 00:00:00 Visit Marni Sr Medicine [id number] Communi [id number] [facility] 2017-11-21 2017-11-21 Office Rupert Tiwari LM Adult En counter/ Legacy 00:00:00 00:00:00 Visit Marni Sr Medicine [id number] Communi 529046 [facility] 2017-11-16 2017-11-16 Office MoSilviaFORMERLY [facility] Adult En counter/ Legacy 00:00:00 00:00:00 Visit Marni Sr Medicine [id number] Communi 328883 [facility] 2017-11-15 2017-11-15 Office LATA Linder Jackson Encount er/ Legacy 00:00:00 00:00:00 Visit Leticia Family [id number] [facility] alonzo Practice 577477 [facility] 2017-10-05 2017-10-05 Office LATA Moore Legacy Encounte r/ Legacy 00:00:00 00:00:00 Visit Valerie Fernandes [id number] [facility] Piyush [id number] ty Pediatrics Healt h 2017-08-01 2017-08-01 Office Rupert TiwariFORMERLY [facility] Adult En counter/ Legacy 00:00:00 00:00:00 Visit Marni Sr Medicine [id number] Communi 577302 [facility] 2017-07-20 2017-07-20 Office LATA TiwariFORMERLY [facility] Adult Encount er/ Legacy 00:00:00 00:00:00 Visit Rupert Medicine [id number] Co mmuni 490253 [facility] 2017-07-20 2017-07-20 Office Rupert TiwariFORMERLY [facility] Adult En counter/ Legacy 00:00:00 00:00:00 Visit Caterina Palafox Medicine [id number] Communi 205636 [facility] 2017-06-16 2017-06-16 Office LATA TiwariFORMERLY [facility] Adult Encount er/ Legacy 00:00:00 00:00:00 Visit Rupert Medicine [id number] Co mmuni 428241 Health 2017-06-16 2017-06-16 Office Meño [facility] Adult Encounte r/ Legacy 00:00:00 00:00:00 Visit [facility] [id number] [facility] [id number] Health 2017-05-15 2017-05-15 Office Karie [facility] Adult Encount er/ Legacy 00:00:00 00:00:[facility] [id number] Co mmuni [id number] Health 2017-04-17 2017-04-17 Office Yamilet [facility] Social Encoun ter/ Legacy 00:00:00 00:00:00 Visit Camila Services [id number] Communi [id number] [facility] 2017-04-17 2017-04-17 Office Cast [facility] Social Enc ounter/ Legacy 00:00:00 00:00:00 Visit Samantha Services [id number] Co mmuni [id number] [facility] 2017-04-17 2017-04-17 Office Karie [facility] Adult Encount er/ Legacy 00:00:00 00:00:00 [facility] [id number] Co mmuni [id number] Health 2017-04-17 2017-04-17 Office Karie [facility] Adult Encount er/ Legacy 00:00:00 00:00:00 Visit Rupert Medicine [id number] Co mmuni [id number] [facility] 2017-04-17 2017-04-17 Office Rupert Tiwari [facility] Adult En counter/ Legacy 00:00:00 00:00:00 Visit Caterina Palafox Medicine [id number] Communi [id number] Health 2017-02-23 2017-02-23 Office Pipe [facility] Social Encoun ter/ Legacy 00:00:00 00:00:00 Visit Kasia Services [id number] Co mmuni [id number] ty Health 2017-02-20 2017-02-20 Office Pipe [facility] Social Encoun ter/ Legacy 00:00:00 00:00:00 Visit Kasia Services [id number] Co mmuni 028123 ty Health 2017-02-16 2017-02-16 Office Meserve, [facility] Social Encoun ter/ Legacy 00:00:00 00:00:00 Visit Kasia Services [id number] Co mmuni 459216 ty Health 2017-02-16 2017-02-16 Office Meserve, [facility] Social Encoun ter/ Legacy 00:00:00 00:00:00 Visit Kasia Services [id number] Co mmuni 167981 ty Health 2017-02-13 2017-02-13 Office Meserve, [facility] Social Encoun ter/ Legacy 00:00:00 00:00:00 Visit Kasia Services [id number] Co mmuni [id number] Health 2017-01-30 2017-01-30 Office [facility] En[facility] / Legacy 00:00:00 00:00:00 Visit Robby Behavioral [id number] [facility] Health [id number] Health 2017-01-30 2017-01-30 Office [facility] Encounter / Legacy 00:00:00 00:00:00 Visit [facility] [id number] [facility] Health 570273 Health 2017-01-29 2017-01-29 Office [facility] En[facility] / Legacy 00:00:00 00:00:00 Visit Robby Behavioral [id number] [facility] Health 952372 ty Health 2017-01-29 2017-01-29 [facility] LM Encounter / Legacy 00:00:00 00:00:00 Visit [facility] Behavioral [id number] [facility] Health 262136 Health 2017-01-24 2017-01-24 Office [facility] Adult Encount er/ Legacy 00:00:00 00:00:00 Visit Az Medicine [id number] C ommuni 525905 ty Health 2017-01-18 2017-01-18 Office [facility] Adult Encount er/ Legacy 00:00:00 00:00:00 Visit Rupert Medicine [id number] Co mmuni 174097 ty Health 2017-01-18 2017-01-18 Office Karie [facility] Adult Encount er/ Legacy 00:00:00 00:00:00 Visit Rupert Medicine [id number] Co mmuni [id number] [facility] 2017-01-17 2017-01-17 Office Jeffery [facility] Adult Encounte r/ Legacy 00:00:00 00:00:00 Visit Saloni Medicine [id number] Co mmuni [id number] ty Health 2016-12-28 2016-12-28 Office [facility] Encounter / Legacy 00:00:00 00:00:00 Visit Robby Behavioral [id number] [facility] [id number] ty Health 2016-12-28 2016-12-28 Office [facility] Encounter / Legacy 00:00:00 00:00:00 Visit Robby Behavioral [id number] [facility] 949483 Health 2016-11-28 2016-11-28 Office Sy [facility] Adult Encounte r/ Legacy 00:00:00 00:00:00 Visit Sneha Agustin [id number] [facility] [id number] Health 2016-10-20 2016-10-20 Office Dc Guerrero [facility] Kenzie Encounter/ Legacy 00:00:00 00:00:00 Visit Wenceslao [facility] [id number] [facility] 952769 ty Behavioral Healt Health 2016-10-20 2016-10-20 Office Dc Guerrero [facility] Kenzie Encounter/ Legacy 00:00:00 00:00:00 Visit Wenceslao [facility] [id number] [facility] 788165 ty Behavioral Healt h Health 2016-10-17 2016-10-17 Office Cesar [facility] Encount er/ Legacy 00:00:00 00:00:00 Visit Dc Saldana [id number] [facility] 432184 Health 2016-10-17 2016-10-17 Office Cesar [facility] Encount er/ Legacy 00:00:00 00:00:00 Visit Dc Saldana [id number] [facility] [id number] Health 2016-10-17 2016-10-17 Office Cesar [facility] Encount er/ Legacy 00:00:00 00:00:00 Visit Dc Saldana [id number] [facility] [id number] Health 2016-10-16 2016-10-16 Office Cesar [facility] Encount er/ Legacy 00:00:00 00:00:00 Visit Dc Behavioral [id number] [facility] Health [id number] ty Health 2016-09-21 2016-09-21 Office Michelle [facility] Adult Encount er/ Legacy 00:00:00 00:00:00 Visit [facility] [id number] Co mmuni [id number] ty Health 2016-09-21 2016-09-21 Office [facility] Adult Encount er/ Legacy 00:00:00 00:00:00 Visit [facility] [id number] Co mmuni 186945 ty Health 2016-09-21 2016-09-21 [facility]/ Legacy 00:00:00 00:00:00 Visit [facility] [id number] Co mmuni [id number] ty Health 2016-09-21 2016-09-21 Office Vivienne [facility] Adult Encounte r/ Legacy 00:00:00 00:00:00 Visit Caterina Medicine [id number] Co mmuni 978919 ty Health 2016-09-21 2016-09-21 Office Karie [facility] Adult Encount er/ Legacy 00:00:00 00:00:00 Visit [facility] [id number] Co mmuni [id number] ty Health 2016-09-21 2016-09-21 Office Rupert Tiwari [facility] Adult En counter/ Legacy 00:00:00 00:00:00 Visit Caterina Palafox Medicine [id number] [facility] 453206 ty Health 2016-09-20 2016-09-20 Office Cesar [facility] Encount er/ Legacy 00:00:00 00:00:00 Visit Dc Behavioral [id number] [facility] Health 572017 ty Health 2016-09-19 2016-09-19 Office Cesar [facility] Encount er/ Legacy 00:00:00 00:00:00 Visit Dc Behavioral [id number] [facility] Health 059911 ty Health 2016-09-14 2016-09-14 Office Sy [facility] Adult Encounte r/ Legacy 00:00:00 00:00:00 Visit Sneha Agustin [id number] [facility] [id number] Health 2016-09-02 2016-09-02 Office Cesar [facility] Encount er/ Legacy 00:00:00 00:00:00 Visit Dc Saldana [id number] [facility] [id number] Health 2016-09-02 2016-09-02 Office Cesar [facility] Encount er/ Legacy 00:00:00 00:00:00 Visit Dc Saldana [id number] [facility] [id number] Health 2016-07-21 2016-07-21 Office Oneil [facility] Vision Encount er/ Legacy 00:00:00 00:00:00 Visit Casa Zhang [id number] Co mmuni [id number] Health 2016-07-21 2016-07-21 Office Karie [facility] Adult Encount er/ Legacy 00:00:00 00:00:00 Visit Rupert Agustin [id number] Co mmuni [id number] Health 2016-07-21 2016-07-21 Office Dc Guerrero [facility] Branard Encounter/ Legacy 00:00:00 00:00:00 Visit [facility]enceslao [facility] [id number] [facility] [id number] [facility] Health 2016-07-21 2016-07-21 Office Shashank [facility] Vision Encoun ter/ Legacy 00:00:00 00:00:00 Visit Shirley [id number] [facility] alonzo [id number] Health 2016-07-12 2016-07-12 Office Rupert Tiwari [facility] Legacy Enco unter/ Legacy 00:00:00 00:00:00 Visit Silvia Hassan [facility] [id number] [facility] 375908 [facility] Health [facility] 2016-07-12 2016-07-12 Office Cesar [facility] Encount er/ Legacy 00:00:00 00:00:00 Visit Dc Saldana [id number] [facility] 911489 Health 2016-07-12 2016-07-12 Office Cesar [facility] Encount er/ Legacy 00:00:00 00:00:00 Visit Dc Saldana [id number] [facility] 236402 [facility] 2016-07-05 2016-07-05 Office Pipe [facility] Social Encoun ter/ Legacy 00:00:00 00:00:00 Visit Kasia Services [id number] Co mmuni [id number] Health 2016-07-04 2016-07-04 Office Pipe [facility] Social Encoun ter/ Legacy 00:00:00 00:00:00 Visit Kasia Services [id number] Co mmuni [id number] [facility] 2016-07-01 2016-07-01 Office Palafox Caterina [facility] Legacy En counter/ Legacy 00:00:00 00:00:00 Visit Julio Govea [facility] [id number] [facility] 649314 [facility] Health Contact Center 2016-06-09 2016-06-09 Office Shashank [facility] Vision Encoun ter/ Legacy 00:00:00 00:00:00 Visit Shirley [id number] Com alonzo [id number] [facility] 2016-06-09 2016-06-09 Office Dc Guerrero [facility] Kenzie Encounter/ Legacy 00:00:00 00:00:00 Visit [facility] [id number] [facility] 934309 [facility] 2016-06-09 2016-06-09 Office Oneil [facility] Vision Encount er/ Legacy 00:00:00 00:00:00 Visit aCsa Zhang [id number] Co mmuni [id number] [facility] 2016-06-09 2016-06-09 Office Oneil [facility] Vision Encount er/ Legacy 00:00:00 00:00:00 Visit Casa Zhang [id number] Co mmuni [id number] Health 2016-06-09 2016-06-09 Office Casa Riggs [facility] Visio n Encounter/ Legacy 00:00:00 00:00:00 Visit Nitza Alex [id number] [facility] [id number] [facility] 2016-06-09 2016-06-09 Office Nestor Guzman [facility] Vision Enc ounter/ Legacy 00:00:00 00:00:00 Visit [id number] Com alonzo [id number] Health 2016-06-09 2016-06-09 Office Nestor Guzman [facility] Vision Enc ounter/ Legacy 00:00:00 00:00:00 Visit [id number] Com alonzo 370010 ty Health 2016-06-09 2016-06-09 Office Nestor Guzman [facility] Vision Enc ounter/ Legacy 00:00:00 00:00:00 Visit [id number] Com alonzo [id number] ty Health 2016-06-09 2016-06-09 Office Nestor Guzman [facility] Vision Enc ounter/ Legacy 00:00:00 00:00:00 Visit Shirley Encarnacion [id number] [facility] [id number] Health 2016-06-07 2016-06-07 Office Queenie [facility] Adult Encounte r/ Legacy 00:00:00 00:00:00 Visit [facility] [id number] [facility] [id number] [facility] 2016-05-19 2016-05-19 [facility] Social Encoun ter/ Legacy 00:00:00 00:00:00 Visit [facility] [id number] [facility] [id number] [facility] 2016-05-18 2016-05-18 [facility] Social Encoun ter/ Legacy 00:00:00 00:00:00 Visit [facility] [id number] [facility] [id number] [facility] 2016-05-17 2016-05-17 [facility] Encoun ter/ Legacy 00:00:00 00:00:00 Visit [facility] [id number] [facility] [id number] Health 2016-05-13 2016-05-13 [facility] Adult Encount er/ Legacy 00:00:00 00:00:00 Visit [facility] [id number] [facility] [id number] Health 2016-05-13 2016-05-13 [facility] Social Encoun ter/ Legacy 00:00:00 00:00:00 Visit [facility] [id number] [facility] [id number] Health 2016-05-13 2016-05-13 Office Karie [facility] Adult Encount er/ Legacy 00:00:00 00:00:00 Visit [facility] [id number] [facility] m[facility] [id number] ty Health 2016-05-12 2016-05-12 Office Pipe [facility] Social Encoun ter/ Legacy 00:00:00 00:00:00 Visit [facility] [id number] [facility] [id number] [facility] 2016-05-06 2016-05-06 [facility] Legacy 00:00:00 00:00:00 Visit [facility] [id number] [facility] [id number] ty Health 2016-05-06 2016-05-06 [facility] Legacy 00:00:00 00:00:00 Visit [facility] [id number] [facility] [id number] ty Health 2016-05-06 2016-05-06 [facility] Encoun ter/ Legacy 00:00:00 00:00:00 Visit [facility] [id number] [facility] [id number] ty Health 2016-05-06 2016-05-06 Office Pipe [facility] Social Encoun ter/ Legacy 00:00:00 00:00:00 Visit [facility] [id number] [facility] [id number] ty Health 2016-05-06 2016-05-06 Office Kasia Betancur [facility] Social E ncounter/ Legacy 00:00:00 00:00:00 Visit Amanda Fuentes [id number] Yolie Santiago [id number] Health 2016-05-06 2016-05-06 [facility] Adult Encount er/ Legacy 00:00:00 00:00:00 Visit [facility] [id number] [facility] [id number] ty [facility] 2016-05-06 2016-05-06 [facility] Legacy 00:00:00 00:00:00 Visit [facility] [id number] [facility] [id number] ty Health 2016-05-06 2016-05-06 Office Rupert Tiwari [facility] Adult En counter/ Legacy 00:00:00 00:00:00 Visit Amanda [facility] [id number] Caterina [place] [id number] ty Santiago, [facility] 2016-05-06 2016-05-06 Office Siomara, [facility] Adult Encounte r/ Legacy 00:00:00 00:00:00 Visit [facility] [id number] [facility] [id number] Health 2016-05-06 2016-05-06 Office Siomara, [facility] Adult Encounte r/ Legacy 00:00:00 00:00:00 Visit [facility] [id number] [facility] [id number] Health 2016-05-06 2016-05-06 [facility] Adult Encounte r/ Legacy 00:00:00 00:00:00 Visit [facility] [id number] [facility] [id number] Health 2016-05-05 2016-05-05 Office Ivory Fontanez [facility] Encoun ter/ Legacy 00:00:00 00:00:00 Visit Behavioral [id number] [facility] [id number] [facility] 2016-04-28 2016-04-28 Office Rge [facility] Adult Encount er/ Legacy 00:00:00 00:00:00 Visit [facility] [id number] [facility] [id number] Health 2016-04-15 2016-04-15 Office Karie [facility] Adult Encount er/ Legacy 00:00:00 00:00:00 Visit [facility] [id number] [facility] [id number] Health 2016-04-15 2016-04-15 Office Kiel Billy [facility] Legacy Encoun ter/ Legacy 00:00:00 00:00:00 Visit [facility] [id number] [facility] [id number] 2016-04-15 2016-04-15 Office Karie [facility] Legacy Encounter / Legacy 00:00:00 00:00:00 [facility] [id number] [facility] [id number] 2014-09-04 2014-09-04 Office Garcia [facility] Manuel Encounter/ Legacy 00:00:00 00:00:00 Visit [facility] [id number] [facility] alonzo [id number] [facility] 2012-10-25 2012-10-25 Office Nestor Guzman [facility] Vision Enc ounter/ Legacy 00:00:00 00:00:00 Visit [id number] Com alonzo [id number] [facility] 2012-10-25 2012-10-25 Office Shashank [facility] Vision Encoun ter/ Legacy 00:00:00 00:00:00 Visit Shirley [id number] Com alonzo [id number] [facility] 2012-10-16 2012-10-16 Office Shashank [facility] Vision Encoun ter/ Legacy 00:00:00 00:00:00 Visit Shirley [id number] [facility] alonzo [id number] [facility] 2012-10-16 2012-10-16 Office Casa Riggs [facility] Visio n Encounter/ Legacy 00:00:00 00:00:00 [id number] [facility] [id number] 2012-10-16 2012-10-16 Office Nestor Guzman [facility] Vision Enc ounter/ Legacy 00:00:00 00:00:00 Visit Shirley Encarnacion [id number] [facility] 713434 [facility] 2012-10-16 2012-10-16 Office Dany [facility] Adult Encounte r/ Legacy 00:00:00 00:00:00 Visit [facility] [id number] [facility] [id number] [facility] Results Test Description Test Time Test Comments Results Result Comments Source Treponema pallidum antibodies, by particle agglutination 07-18-28 11:10:00 Test Item Value Reference Range Interpretation Comme nts Treponema pallidum antibodies, by particle agglutination Reactiv e Non Reactive A (test code = 94464-1) [facility] Center[facility] reagin antibody, [id number] 11:10:00 Test Item Value Reference Range Interpretation Comments rapid plasma reagin antibody, serum 1:2 NonRea<1:1 H (test code = 308) [facility] CenterHIV-1RNA, serum, by PCR, [id number] 11:10:00 Test Item Value Reference Range Interpretation Comments HIV-1RNA, serum, by PCR, quantitative 500 /mL (test code = 52176) [facility] CenterLDL cholesterol, [id number] 11:10:00 Test Item Value Reference Range Interpretation Comments LDL cholesterol, serum (test code = 89 mg/dL 0-99 2088-1) [facility] Centervery low density sokihwshxeei1870-95-57 11:10:00 Test Item Value Reference Range Interpretation Comments very low density lipoproteins (test 54 mg/dL 5-40 H code = 2548) [facility] CenterHDL cholesterol, [id number] 11:10:00 Test Item Value Reference Range Interpretation Comments HDL cholesterol, serum (test code = 29 mg/dL >39 L 2084-9) [facility] Centertriglyceride, serum, [id number] 11:10:00 Test Item Value Reference Range Interpretation Comments triglyceride, serum, fasting (test 272 mg/dL 0-149 H code = 2571-8) [facility] Centercholesterol, [id number] 11:10:00 Test Item Value Reference Range Interpretation Comments cholesterol, serum (test code = 172 mg/dL 293-189 3957-3) [facility] Centeralanine aminotransferase (SGPT), [id number] 11:10:00 Test Item Value Reference Range Interpretation Comments alanine aminotransferase (SGPT), serum 63 1/L 0-44 H (test code = 40) [facility] Centeraspartate aminotransferase (SGOT), [id number] 11:10:00 Test Item Value Reference Range Interpretation Comments aspartate aminotransferase (SGOT), 37 1/L 0-40 serum (test code = 39) [facility] Centeralkaline phosphatase, [id number] 11:10:00 Test Item Value Reference Range Interpretation Comments alkaline phosphatase, serum (test code 80 1/L 39-117 = 3) [facility] Centerbilirubin, serum, [id number] 11:10:00 Test Item Value Reference Range Interpretation Comments bilirubin, serum, total (test code 0.6 mg/dL 0.0-1.2 = 43) [facility] Centeralbumin/globulin ratio, [id number] 11:10:00 Test Item Value Reference Range Interpretation Comments albumin/globulin ratio, serum (test 1.2 1.2-2.2 code = 146) [facility] Healthglobulin, [id number] 11:10:00 Test Item Value Reference Range Interpretation Comments globulin, serum (test code = 3059) 3.7 1.5-4.5 [facility] Centeralbumin, [id number] 11:10:00 Test Item Value Reference Range Interpretation Comments albumin, serum (test code = 2) 4.3 g/dL 3.5-5.5 [facility] Healthprotein, total, [id number] 11:10:00 Test Item Value Reference Range Interpretation Comments protein, total, serum (test code = 8.0 g/dL 6.0-8.5 36) [facility] Healthcalcium, [id number] 11:10:00 Test Item Value Reference Range Interpretation Comments calcium, serum (test code = 11) 8.8 mg/dL 8.7-10.2 [facility] Centercarbon dioxide, venous [id number] 11:10:00 Test Item Value Reference Range Interpretation Comments carbon dioxide, venous blood (test 20 mmol/L code = 15) [facility] Centerchloride, [id number] 11:10:00 Test Item Value Reference Range Interpretation Comments chloride, serum (test code = 13) 100 mmol/L 96-106 [facility] Centerpotassium, [id number] 11:10:00 Test Item Value Reference Range Interpretation Comments potassium, serum (test code = 35) 4.0 mmol/L 3.5-5.2 [facility] Centersodium, [id number] 11:10:00 Test Item Value Reference Range Interpretation Comments sodium, serum (test code = 159) 134 mmol/L 134-144 [facility] Centerurea nitrogen/creatinine ratio, [id number] 11:10:00 Test Item Value Reference Range Interpretation Comments urea nitrogen/creatinine ratio, serum 12 9-20 (test code = 2462) [facility] HealtheGFR if [id number] 11:10:00 Test Item Value Reference Range Interpretation Comments eGFR if 101 >59 (test code = 744976) mL/min/((173/100).m2) [facility] CenterEstimated Glomerular Filtration Rate (calc)2019-11-02 11:10:00 Test Item Value Reference Range Interpretation Comments Estimated Glomerular 88 >59 Filtration Rate (calc) mL/min/((173/100).m2 (test code = 98546) ) [facility] Centercreatinine, [id number] 11:10:00 Test Item Value Reference Range Interpretation Comments creatinine, serum (test code = 18) 1.05 mg/dL 0.76-1.27 [facility] Healthurea nitrogen, [id number] 11:10:00 Test Item Value Reference Range Interpretation Comments urea nitrogen, blood (test code = 9) 13 mg/dL 6-24 [facility] Centerblood glucose, [id number] 11:10:00 Test Item Value Reference Range Interpretation Comments blood glucose, random (test code = 327 mg/dL 65-99 H 8) [facility] Centerimmature granulocytes, percentage of total cells, blood 2019-11-02 11:10:00 Test Item Value Reference Range Interpretation Comments immature granulocytes, percentage of 0 % total cells, blood (test code = 010627) [facility] Centerbasophil count, [id number] 11:10:00 Test Item Value Reference Range Interpretation Comments basophil count, absolute (test 0.0 x10E3/uL 0.0-0.2 code = 57365) [facility] CenterEosinophil Absolute [id number] 11:10:00 Test Item Value Reference Range Interpretation Comments Eosinophil Absolute Count (test 0.1 X10E3/UL 0.0-0.4 code = 999049) [facility] Centermonocyte count, blood, [id number] 11:10:00 Test Item Value Reference Range Interpretation Comments monocyte count, blood, automated 0.2 X10E3/UL 0.1-0.9 (test code = 3076) [facility] Centerlymphocyte count, blood, [id number] 11:10:00 Test Item Value Reference Range Interpretation Comments lymphocyte count, blood, 1.6 X10E3/UL 0.7-3.1 automated (test code = 3074) [facility] CenterAbsolute [id number] 11:10:00 Test Item Value Reference Range Interpretation Comments Absolute Neutrophils (test code 3.9 X10E3/UL 1.4-7.0 = 63162) [facility] Centerbasophils as percent of blood [id number] 11:10:00 Test Item Value Reference Range Interpretation Comments basophils as percent of blood 0 % leukocytes (test code = 2426) [facility] Centereosinophils as percent of blood [id number] 11:10:00 Test Item Value Reference Range Interpretation Comments eosinophils as percent of blood 2 % leukocytes (test code = 4170) [facility] Healthmonocytes as percent of blood [id number] 11:10:00 Test Item Value Reference Range Interpretation Comments monocytes as percent of blood 4 % leukocytes (test code = 2421) [facility] Centerlymphocytes as percent of blood [id number] 11:10:00 Test Item Value Reference Range Interpretation Comments lymphocytes as percent of blood 28 % leukocytes (test code = 317) [facility] Healthneutrophils as percent of blood okfmzjpuqm6763-10-68 11:10:00 Test Item Value Reference Range Interpretation Comments neutrophils as percent of blood 66 % leukocytes (test code = 316) [facility] Centerplatelet [id number] 11:10:00 Test Item Value Reference Range Interpretation Comments platelet count (test code = 66) 177 X10E3/UL 150-450 [facility] Centerred blood cell distribution [id number] 11:10:00 Test Item Value Reference Range Interpretation Comments red blood cell distribution width 14.7 % 12.3-15.4 (test code = 1030) [facility] corpuscular hemoglobin concentration, [id number] 11:10:00 Test Item Value Reference Range Interpretation Comments mean corpuscular hemoglobin 34.5 G/DL 31.5-35.7 concentration, RBC (test code = 1029) [facility] corpuscular hemoglobin, [id number] 11:10:00 Test Item Value Reference Range Interpretation Comments mean corpuscular hemoglobin, RBC 29.3 pg 26.6-33.0 (test code = 1031) [facility] Centeran corpuscular volume, [id number] 11:10:00 Test Item Value Reference Range Interpretation Comments mean corpuscular volume, RBC (test code 85 fL 79-97 = 315) [facility] Centerhematocrit, [id number] 11:10:00 Test Item Value Reference Range Interpretation Comments hematocrit, blood (test code = 64) 44.0 % 37.5-51.0 [facility] Centerhemoglobin, [id number] 11:10:00 Test Item Value Reference Range Interpretation Comments hemoglobin, blood (test code = 65) 15.2 g/dL 13.0-17.7 [facility] Centererythrocyte (RBC) [id number] 11:10:00 Test Item Value Reference Range Interpretation Comments erythrocyte (RBC) count (test 5.19 X10E6/UL 4.14-5.80 code = 67) [facility] Centerleukocyte count, [id number] 11:10:00 Test Item Value Reference Range Interpretation Comments leukocyte count, blood (test 5.9 X10E3/UL 3.4-10.8 code = 68) [facility] CenterCD4/CD8 [id number] 11:10:00 Test Item Value Reference Range Interpretation Comments CD4/CD8 ratio (test code = 75644) 0.81 0.92-3.72 L [facility] CenterT-suppressor cells (CD8) as percent of blood lymphocytes 2019-11-02 11:10:00 Test Item Value Reference Range Interpretation Comments T-suppressor cells (CD8) as percent of 46.6 % 12.0-35.5 H blood lymphocytes (test code = 3517) [facility] Centerabsolute [id number] 11:10:00 Test Item Value Reference Range Interpretation Comments absolute CD8 (test code = 13071) 626 109-262 [facility] CenterT-helper cells (CD4) as percent of blood lymphocytes 2019-11-02 11:10:00 Test Item Value Reference Range Interpretation Comments T-helper cells (CD4) as percent of 37.8 % 30.8-58.5 blood lymphocytes (test code = 8123-2) [facility] CenterT-helper cells (CD4) [id number] 11:10:00 Test Item Value Reference Range Interpretation Comments T-helper cells (CD4) count (test code 605 /UL 359-1519 = 01821-9) [facility] CenterLDL cholesterol, [id number] 16:37:00 Test Item Value Reference Range Interpretation Comments LDL cholesterol, serum (test code = 62 mg/dL 0-99 9-1) [facility] [id number] 16:37:00 Test Item Value Reference Range Interpretation Comments very low density lipoproteins (test 66 mg/dL 5-40 H code = 2548) [facility] CenterHDL cholesterol, [id number] 16:37:00 Test Item Value Reference Range Interpretation Comments HDL cholesterol, serum (test code = 27 mg/dL >39 L 5-9) [facility] Centertriglyceride, serum, [id number] 16:37:00 Test Item Value Reference Range Interpretation Comments triglyceride, serum, fasting (test 331 mg/dL 0-149 H code = 2571-8) [facility] Centercholesterol, [id number] 16:37:00 Test Item Value Reference Range Interpretation Comments cholesterol, serum (test code = 155 mg/dL 871-546 0884-3) [facility] Centerhepatitis C antibody, [id number] 16:26:00 Test Item Value Reference Range Interpretation Comments hepatitis C antibody, serum (test code <0.1 0.0-0.9 = 2722) [facility] CenterTreponema pallidum antibodies, by particle agglutination 2019-04-26 16:26:00 Test Item Value Reference Range Interpretation Comments Treponema pallidum antibodies, by Positive Negative A particle agglutination (test code = 24102-8) [facility] Centerrapid plasma reagin antibody, [id number] 16:26:00 Test Item Value Reference Range Interpretation Comments rapid plasma reagin antibody, serum 1:1 NonRea<1:1 H (test code = 308) [facility] Centerhemoglobin A1C, blood, as % of total [id number] 16:26:00 Test Item Value Reference Range Interpretation Comments hemoglobin A1C, blood, as % of total 10.3 % 4.8-5.6 H hemoglobin (test code = 4548-4) [facility] CenterHIV-1RNA, serum, by PCR, [id number] 16:26:00 Test Item Value Reference Range Interpretation Comments HIV-1RNA, serum, by PCR, quantitative 30 /mL (test code = 39725) [facility], by Polymer[facility] Chain Reaction 2019-04-26 16:26:00 Test Item Value Reference Range Interpretation Comments Hepatitis B virus DNA, HBV DNA not detected by Polymerase Chain Reaction (test code = 73556) [facility] Centeralanine aminotransferase (SGPT), [id number] 16:26:00 Test Item Value Reference Range Interpretation Comments alanine aminotransferase (SGPT), serum 47 1/L 0-44 H (test code = 40) [facility] Healthaspartate aminotransferase (SGOT), [id number] 16:26:00 Test Item Value Reference Range Interpretation Comments aspartate aminotransferase (SGOT), 34 1/L 0-40 serum (test code = 39) [facility] Centeralkaline phosphatase, [id number] 16:26:00 Test Item Value Reference Range Interpretation Comments alkaline phosphatase, serum (test 101 1/L 39-117 code = 3) [facility] Centerbilirubin, serum, [id number] 16:26:00 Test Item Value Reference Range Interpretation Comments bilirubin, serum, total (test code 0.3 mg/dL 0.0-1.2 = 43) [facility] Healthalbumin/globulin ratio, [id number] 16:26:00 Test Item Value Reference Range Interpretation Comments albumin/globulin ratio, serum (test 1.6 1.2-2.2 code = 146) [facility] Healthglobulin, [id number] 16:26:00 Test Item Value Reference Range Interpretation Comments globulin, serum (test code = 3059) 2.8 1.5-4.5 [facility] Healthalbumin, [id number] 16:26:00 Test Item Value Reference Range Interpretation Comments albumin, serum (test code = 2) 4.4 g/dL 3.5-5.5 [facility] Centerprotein, total, [id number] 16:26:00 Test Item Value Reference Range Interpretation Comments protein, total, serum (test code = 7.2 g/dL 6.0-8.5 36) [facility] Centercalcium, [id number] 16:26:00 Test Item Value Reference Range Interpretation Comments calcium, serum (test code = 11) 8.9 mg/dL 8.7-10.2 [facility] Centercarbon dioxide, venous [id number] 16:26:00 Test Item Value Reference Range Interpretation Comments carbon dioxide, venous blood (test 19 mmol/L 20-29 L code = 15) [facility] Centerchloride, [id number] 16:26:00 Test Item Value Reference Range Interpretation Comments chloride, serum (test code = 13) 103 mmol/L 96-106 [facility] Healthpotassium, [id number] 16:26:00 Test Item Value Reference Range Interpretation Comments potassium, serum (test code = 35) 4.5 mmol/L 3.5-5.2 [facility] Centersodium, [id number] 16:26:00 Test Item Value Reference Range Interpretation Comments sodium, serum (test code = 159) 139 mmol/L 134-144 [facility] Centerurea nitrogen/creatinine ratio, [id number] 16:26:00 Test Item Value Reference Range Interpretation Comments urea nitrogen/creatinine ratio, serum 12 9-20 (test code = 2462) [facility] CentereGFR if [id number] 16:26:00 Test Item Value Reference Range Interpretation Comments eGFR if 123 >59 (test code = 040387) mL/min/((173/100).m2) [facility] CenterEstimated Glomerular Filtration Rate (calc)2019-04-26 16:26:00 Test Item Value Reference Range Interpretation Comments Estimated Glomerular 106 >59 Filtration Rate (calc) mL/min/((173/100).m2 (test code = 38177) ) [facility] Centercreatinine, [id number] 16:26:00 Test Item Value Reference Range Interpretation Comments creatinine, serum (test code = 18) 0.90 mg/dL 0.76-1.27 [facility] Centerurea nitrogen, [id number] 16:26:00 Test Item Value Reference Range Interpretation Comments urea nitrogen, blood (test code = 9) 11 mg/dL 6-24 [facility] Centerblood glucose, [id number] 16:26:00 Test Item Value Reference Range Interpretation Comments blood glucose, random (test code = 325 mg/dL 65-99 H 8) [facility] Centerimmature granulocytes, percentage of total cells, blood 2019-04-26 16:26:00 Test Item Value Reference Range Interpretation Comments immature granulocytes, percentage of 1 % total cells, blood (test code = 489574) [facility] Centerbasophil count, [id number] 16:26:00 Test Item Value Reference Range Interpretation Comments basophil count, absolute (test 0.0 x10E3/uL 0.0-0.2 code = 26985) [facility] CenterEosinophil Absolute [id number] 16:26:00 Test Item Value Reference Range Interpretation Comments Eosinophil Absolute Count (test 0.1 X10E3/UL 0.0-0.4 code = 581085) [facility] Healthmonocyte count, blood, [id number] 16:26:00 Test Item Value Reference Range Interpretation Comments monocyte count, blood, automated 0.5 X10E3/UL 0.1-0.9 (test code = 3076) [facility] Centerlymphocyte count, blood, [id number] 16:26:00 Test Item Value Reference Range Interpretation Comments lymphocyte count, blood, 1.3 X10E3/UL 0.7-3.1 automated (test code = 3074) [facility] HealthAbsolute [id number] 16:26:00 Test Item Value Reference Range Interpretation Comments Absolute Neutrophils (test code 6.9 X10E3/UL 1.4-7.0 = 59157) [facility] percent of blood xlyoypbgfw5672-00-05 16:26:00 Test Item Value Reference Range Interpretation Comments basophils as percent of blood 0 % leukocytes (test code = 2426) [facility] Centereosinophils as percent of blood [id number] 16:26:00 Test Item Value Reference Range Interpretation Comments eosinophils as percent of blood 1 % leukocytes (test code = 4170) [facility] Healthmonocytes as percent of blood wkkrnawwcm6305-01-81 16:26:00 Test Item Value Reference Range Interpretation Comments monocytes as percent of blood 5 % leukocytes (test code = 2421) [facility] Centerlymphocytes as percent of blood [id number] 16:26:00 Test Item Value Reference Range Interpretation Comments lymphocytes as percent of blood 15 % leukocytes (test code = 317) [facility] Centerneutrophils as percent of blood cfafzqsriz2066-71-10 16:26:00 Test Item Value Reference Range Interpretation Comments neutrophils as percent of blood 78 % leukocytes (test code = 316) [facility] Centerplatelet mlahe0060-07-15 16:26:00 Test Item Value Reference Range Interpretation Comments platelet count (test code = 66) 267 X10E3/UL 150-450 [facility] Centerred blood cell distribution [id number] 16:26:00 Test Item Value Reference Range Interpretation Comments red blood cell distribution width 13.2 % 12.3-15.4 (test code = 1030) [facility] corpuscular hemoglobin concentration, [id number] 16:26:00 Test Item Value Reference Range Interpretation Comments mean corpuscular hemoglobin 34.7 G/DL 31.5-35.7 concentration, RBC (test code = 1029) [facility] corpuscular hemoglobin, [id number] 16:26:00 Test Item Value Reference Range Interpretation Comments mean corpuscular hemoglobin, RBC 30.6 pg 26.6-33.0 (test code = 1031) [facility] corpuscular volume, [id number] 16:26:00 Test Item Value Reference Range Interpretation Comments mean corpuscular volume, RBC (test code 88 fL 79-97 = 315) [facility] Centerhematocrit, [id number] 16:26:00 Test Item Value Reference Range Interpretation Comments hematocrit, blood (test code = 64) 48.7 % 37.5-51.0 [facility] Centerhemoglobin, [id number] 16:26:00 Test Item Value Reference Range Interpretation Comments hemoglobin, blood (test code = 65) 16.9 g/dL 13.0-17.7 [facility] Centererythrocyte (RBC) [id number] 16:26:00 Test Item Value Reference Range Interpretation Comments erythrocyte (RBC) count (test 5.52 X10E6/UL 4.14-5.80 code = 67) [facility] Centerleukocyte count, [id number] 16:26:00 Test Item Value Reference Range Interpretation Comments leukocyte count, blood (test 8.9 X10E3/UL 3.4-10.8 code = 68) [facility] CenterCD4/CD8 [id number] 16:26:00 Test Item Value Reference Range Interpretation Comments CD4/CD8 ratio (test code = 95278) 1.45 0.92-3.72 [facility] CenterT-suppressor cells (CD8) as percent of blood lymphocytes 2019-04-26 16:26:00 Test Item Value Reference Range Interpretation Comments T-suppressor cells (CD8) as percent of 30.4 % 12.0-35.5 blood lymphocytes (test code = 3517) [facility] Centerabsolute [id number] 16:26:00 Test Item Value Reference Range Interpretation Comments absolute CD8 (test code = 30958) 395 109-897 [facility] CenterT-helper cells (CD4) as percent of blood lymphocytes 2019-04-26 16:26:00 Test Item Value Reference Range Interpretation Comments T-helper cells (CD4) as percent of 44.1 % 30.8-58.5 blood lymphocytes (test code = 8123-2) [facility] CenterT-helper cells (CD4) [id number] 16:26:00 Test Item Value Reference Range Interpretation Comments T-helper cells (CD4) count (test code 573 /UL 359-8249 = 48801-4) [facility] CenterHIV-1 RNA (log 10)2018-10-25 10:41:00 Test Item Value Reference Range Interpretation Comments HIV-1 RNA (log 10) <1.30 DETECTED Log NOT DETECTED A (test code = 34815) copies/mL [facility] CenterHIV-1RNA, serum, by PCR, [id number] 10:41:00 Test Item Value Reference Range Interpretation Comments HIV-1RNA, serum, by PCR, <20 DETECTED NOT DETECTED A quantitative (test code = copies/mL 25287) [facility] Centerrapid plasma reagin antibody, [id number] 10:40:00 Test Item Value Reference Range Interpretation Comments rapid plasma reagin antibody, serum REACTIVE NON-REACTIVE A (test code = 308) [facility] CenterTreponema pallidum Ab, [id number] 10:40:00 Test Item Value Reference Range Interpretation Comments Treponema pallidum Ab, serum (test REACTIVE NON-REACTIVE A code = 08131-5) [facility] Centerbasophils as percent of blood dxppekwwbc3165-19-96 10:40:00 Test Item Value Reference Range Interpretation Comments basophils as percent of blood 0.4 % N leukocytes (test code = 2426) [facility] Centereosinophils as percent of blood mhjyccsjpx1460-22-22 10:40:00 Test Item Value Reference Range Interpretation Comments eosinophils as percent of blood 1.2 % N leukocytes (test code = 1019) [facility] Healthmonocytes as percent of blood qqcbgyulul1526-09-76 10:40:00 Test Item Value Reference Range Interpretation Comments monocytes as percent of blood 4.2 % N leukocytes (test code = 2421) [facility] Centerlymphocytes as percent of blood [id number] 10:40:00 Test Item Value Reference Range Interpretation Comments lymphocytes as percent of blood 18.9 % N leukocytes (test code = 317) [facility] Centerneutrophils as percent of blood dtqpgvxbpo0750-00-39 10:40:00 Test Item Value Reference Range Interpretation Comments neutrophils as percent of blood 75.3 % N leukocytes (test code = 316) [facility] Centerbasophil count, cplwxugn4276-21-62 10:40:00 Test Item Value Reference Range Interpretation Comments basophil count, absolute (test 33 cells/uL 0-200 N code = 83651) [facility] CenterAbsolute Eosinophil [id number] 10:40:00 Test Item Value Reference Range Interpretation Comments Absolute Eosinophil count (test 100 cells/mcL 15-500 N code = 49778) [facility] CenterAbsolute Monocyte [id number] 10:40:00 Test Item Value Reference Range Interpretation Comments Absolute Monocyte count (test 349 cells/mcL 200-950 N code = 01383) [facility] CenterAbsolute Neutrophil [id number] 10:40:00 Test Item Value Reference Range Interpretation Comments Absolute Neutrophil count 6250 cells/mcL 7033-7294 N (test code = 05507) [facility]an platelet [id number] 10:40:00 Test Item Value Reference Range Interpretation Comments mean platelet volume (test code = 11.2 fL 7.5-12.5 N 2784) [facility] Centerplatelet [id number] 10:40:00 Test Item Value Reference Range Interpretation Comments platelet count (test code = 230 THOUSAND/UL 140-400 N 66) [facility] Centerred blood cell distribution etada1879-06-10 10:40:00 Test Item Value Reference Range Interpretation Comments red blood cell distribution width 13.1 % 11.0-15.0 N (test code = 1030) [facility] Centeran corpuscular hemoglobin concentration, [id number] 10:40:00 Test Item Value Reference Range Interpretation Comments mean corpuscular hemoglobin 35.4 G/DL 32.0-36.0 N concentration, RBC (test code = 1029) [facility] Centermean corpuscular hemoglobin, [id number] 10:40:00 Test Item Value Reference Range Interpretation Comments mean corpuscular hemoglobin, RBC 31.2 pg 27.0-33.0 N (test code = 1031) [facility] Centermean corpuscular volume, [id number] 10:40:00 Test Item Value Reference Range Interpretation Comments mean corpuscular volume, RBC (test 88.1 fL 80.0-100.0 N code = 315) [facility] Centerhematocrit, [id number] 10:40:00 Test Item Value Reference Range Interpretation Comments hematocrit, blood (test code = 64) 45.7 % 38.5-50.0 N [facility] Centerhemoglobin, [id number] 10:40:00 Test Item Value Reference Range Interpretation Comments hemoglobin, blood (test code = 65) 16.2 g/dL 13.2-17.1 N [facility] Centererythrocyte (RBC) [id number] 10:40:00 Test Item Value Reference Range Interpretation Comments erythrocyte (RBC) count (test 5.19 MILLION/UL 4.20-5.80 N code = 67) [facility] Centerleukocyte count, [id number] 10:40:00 Test Item Value Reference Range Interpretation Comments leukocyte count, blood (test 8.3 THOUSAND/UL 3.8-10.8 N code = 68) [facility] Centerlymphocytes, [id number] 10:40:00 Test Item Value Reference Range Interpretation Comments lymphocytes, absolute (test 1569 CELLS/UL 850-3900 N code = 71155) [facility] CenterCD4/CD8 [id number] 10:40:00 Test Item Value Reference Range Interpretation Comments CD4/CD8 ratio (test code = 79277) 1.52 0.86-5.00 N [facility] Centerabsolute [id number] 10:40:00 Test Item Value Reference Range Interpretation Comments absolute CD8 (test code = 16965) 471 619-8287 N [facility] CenterT-suppressor cells (CD8) as percent of blood lymphocytes 2018-10-25 10:40:00 Test Item Value Reference Range Interpretation Comments T-suppressor cells (CD8) as percent of 29 % 12-42 N blood lymphocytes (test code = 3517) [facility] CenterT-helper cells (CD4) [id number] 10:40:00 Test Item Value Reference Range Interpretation Comments T-helper cells (CD4) count (test 663 CELLS/UL 490-1740 N code = 64042-7) [facility] CenterT-helper cells (CD4) as percent of blood lymphocytes 2018-10-25 10:40:00 Test Item Value Reference Range Interpretation Comments T-helper cells (CD4) as percent of 44 % 30-61 N blood lymphocytes (test code = 8123-2) [facility] Centeralanine aminotransferase (SGPT), [id number] 10:40:00 Test Item Value Reference Range Interpretation Comments alanine aminotransferase (SGPT), serum 79 1/L 9-46 H (test code = 40) [facility] Centeraspartate aminotransferase (SGOT), [id number] 10:40:00 Test Item Value Reference Range Interpretation Comments aspartate aminotransferase (SGOT), 51 1/L 10-40 H serum (test code = 39) [facility] Centeralkaline phosphatase, [id number] 10:40:00 Test Item Value Reference Range Interpretation Comments alkaline phosphatase, serum (test code 87 1/L 40-115 N = 3) [facility] Centerbilirubin, serum, [id number] 10:40:00 Test Item Value Reference Range Interpretation Comments bilirubin, serum, total (test code 0.7 mg/dL 0.2-1.2 N = 43) [facility] Centeralbumin/globulin ratio, [id number] 10:40:00 Test Item Value Reference Range Interpretation Comments albumin/globulin ratio, serum 1.7 (calc) 1.0-2.5 N (test code = 146) [facility] Centerglobulins, serum, [id number] 10:40:00 Test Item Value Reference Range Interpretation Comments globulins, serum, total (test 2.6 G/DL (CALC) 1.9-3.7 N code = 3078) [facility] Centeralbumin, [id number] 10:40:00 Test Item Value Reference Range Interpretation Comments albumin, serum (test code = 2) 4.4 g/dL 3.6-5.1 N [facility] Centerprotein, total, [id number] 10:40:00 Test Item Value Reference Range Interpretation Comments protein, total, serum (test code = 7.0 g/dL 6.1-8.1 N 36) [facility] Centercalcium, [id number] 10:40:00 Test Item Value Reference Range Interpretation Comments calcium, serum (test code = 11) 9.1 mg/dL 8.6-10.3 N [facility] Centercarbon dioxide, venous [id number] 10:40:00 Test Item Value Reference Range Interpretation Comments carbon dioxide, venous blood (test 24 mmol/L 20-32 N code = 15) [facility] Centerchloride, [id number] 10:40:00 Test Item Value Reference Range Interpretation Comments chloride, serum (test code = 13) 105 mmol/L 98-110 N [facility] Centerpotassium, [id number] 10:40:00 Test Item Value Reference Range Interpretation Comments potassium, serum (test code = 35) 3.9 mmol/L 3.5-5.3 N [facility] Centersodium, [id number] 10:40:00 Test Item Value Reference Range Interpretation Comments sodium, serum (test code = 159) 139 mmol/L 135-146 N [facility] Centerurea nitrogen/creatinine ratio, [id number] 10:40:00 Test Item Value Reference Range Interpretation Comments urea NOT APPLICABLE (calc) 6-22 nitrogen/creatinine ratio, serum (test code = 2462) [facility] CentereGFR if [id number] 10:40:00 Test Item Value Reference Range Interpretation Comments eGFR if 114 > OR = 60 N (test code = 985810) mL/min/((173/100).m2) [facility] CenterEstimated Glomerular Filtration Rate (calc)2018-10-25 10:40:00 Test Item Value Reference Range Interpretation Comments Estimated Glomerular 98 > OR = 60 N Filtration Rate (calc) mL/min/((173/100).m2 (test code = 06561) ) [facility]creatinine, [id number] 10:40:00 Test Item Value Reference Range Interpretation Comments creatinine, serum (test code = 18) 0.96 mg/dL 0.60-1.35 N [facility] Centerurea nitrogen, [id number] 10:40:00 Test Item Value Reference Range Interpretation Comments urea nitrogen, blood (test code = 9) 10 mg/dL 7-25 N [facility] Centerblood glucose, [id number] 10:40:00 Test Item Value Reference Range Interpretation Comments blood glucose, random (test code = 217 mg/dL 65-99 H 8) [facility] Centercholesterol, non-HDL, [id number] 10:40:00 Test Item Value Reference Range Interpretation Comments cholesterol, non-HDL, total 154 MG/DL (CALC) <130 H (test code = 67959) [facility] Centercholesterol/HDL ratio, serum, [id number] 10:40:00 Test Item Value Reference Range Interpretation Comments cholesterol/HDL ratio, serum, 7.4 (calc) <5.0 H percent (test code = 2404) [facility] CenterLDL cholesterol, [id number] 10:40:00 Test Item Value Reference Range Interpretation Comments LDL cholesterol, LDL cholesterol not serum (test code = calculated. Triglyceride 9-1) le... mg/dL (calc) [facility] Centertriglyceride, serum, [id number] 10:40:00 Test Item Value Reference Range Interpretation Comments triglyceride, serum, fasting (test 407 mg/dL <150 H code = 2571-8) [facility] CenterHDL cholesterol, [id number] 10:40:00 Test Item Value Reference Range Interpretation Comments HDL cholesterol, serum (test code = 24 mg/dL >40 L 5-9) [facility] Centercholesterol, [id number] 10:40:00 Test Item Value Reference Range Interpretation Comments cholesterol, serum (test code = 178 mg/dL <200 N 2093-3) [facility] CenterQuantiferon Gold TB blood test for tuberculosis screening 2018-05-22 09:03:00 Test Item Value Reference Range Interpretation Comments Quantiferon Gold TB blood test for Negative Negative tuberculosis screening (test code = 102912) [facility] CenterHIV-1RNA, serum, by PCR, [id number] 08:46:00 Test Item Value Reference Range Interpretation Comments HIV-1RNA, serum, by PCR, <20 copies/mL quantitative (test code = 77776) [facility] CenterTreponema pallidum antibodies, by particle agglutination 2018-05-21 08:44:00 Test Item Value Reference Range Interpretation Comments Treponema pallidum antibodies, by Positive Negative A particle agglutination (test code = 42717-6) [facility] Centerrapid plasma reagin antibody, [id number] 08:44:00 Test Item Value Reference Range Interpretation Comments rapid plasma reagin antibody, serum 1:2 NonRea<1:1 H (test code = 308) [facility] Centerhemoglobin A1C, blood, as % of total [id number] 08:44:00 Test Item Value Reference Range Interpretation Comments hemoglobin A1C, blood, as % of total 6.4 % 4.8-5.6 H hemoglobin (test code = 4548-4) [facility] CenterHepatitis B virus DNA, by Polymerase Chain Reaction 2018-05-21 08:44:00 Test Item Value Reference Range Interpretation Comments Hepatitis B virus DNA, HBV DNA not detected by Polymerase Chain Reaction (test code = 41770) [facility] CenterLDL cholesterol, [id number] 08:44:00 Test Item Value Reference Range Interpretation Comments LDL cholesterol, serum (test TRIGHI mg/dL 0-99 code = 2089-1) [facility] Centervery low density [id number] 08:44:00 Test Item Value Reference Range Interpretation Comments very low density lipoproteins VLDLCH mg/dL 5-40 (test code = 2548) [facility] CenterHDL cholesterol, [id number] 08:44:00 Test Item Value Reference Range Interpretation Comments HDL cholesterol, serum (test code = 22 mg/dL >39 L 2085-9) [facility] Centertriglyceride, serum, [id number] 08:44:00 Test Item Value Reference Range Interpretation Comments triglyceride, serum, fasting (test 401 mg/dL 0-149 H code = 2571-8) [facility] Centercholesterol, [id number] 08:44:00 Test Item Value Reference Range Interpretation Comments cholesterol, serum (test code = 159 mg/dL 939-844 7000-3) [facility] Centeralanine aminotransferase (SGPT), [id number] 08:44:00 Test Item Value Reference Range Interpretation Comments alanine aminotransferase (SGPT), 121 1/L 0-44 H serum (test code = 40) [facility] Centeraspartate aminotransferase (SGOT), [id number] 08:44:00 Test Item Value Reference Range Interpretation Comments aspartate aminotransferase (SGOT), 41 1/L 0-40 H serum (test code = 39) [facility] Centeralkaline phosphatase, [id number] 08:44:00 Test Item Value Reference Range Interpretation Comments alkaline phosphatase, serum (test code 85 1/L 39-117 = 3) [facility] Centerbilirubin, serum, [id number] 08:44:00 Test Item Value Reference Range Interpretation Comments bilirubin, serum, total (test code 0.3 mg/dL 0.0-1.2 = 43) [facility] Healthalbumin/globulin ratio, [id number] 08:44:00 Test Item Value Reference Range Interpretation Comments albumin/globulin ratio, serum (test 1.6 1.2-2.2 code = 146) [facility] Healthglobulin, [id number] 08:44:00 Test Item Value Reference Range Interpretation Comments globulin, serum (test code = 3059) 2.8 1.5-4.5 [facility] Healthalbumin, [id number] 08:44:00 Test Item Value Reference Range Interpretation Comments albumin, serum (test code = 2) 4.5 g/dL 3.5-5.5 [facility] Centerprotein, total, [id number] 08:44:00 Test Item Value Reference Range Interpretation Comments protein, total, serum (test code = 7.3 g/dL 6.0-8.5 36) [facility] Centercalcium, [id number] 08:44:00 Test Item Value Reference Range Interpretation Comments calcium, serum (test code = 11) 9.3 mg/dL 8.7-10.2 [facility] Centercarbon dioxide, venous [id number] 08:44:00 Test Item Value Reference Range Interpretation Comments carbon dioxide, venous blood (test 21 mmol/L 20-29 code = 15) [facility] Healthchloride, [id number] 08:44:00 Test Item Value Reference Range Interpretation Comments chloride, serum (test code = 13) 102 mmol/L 96-106 [facility] Healthpotassium, [id number] 08:44:00 Test Item Value Reference Range Interpretation Comments potassium, serum (test code = 35) 3.9 mmol/L 3.5-5.2 [facility] Centersodium, [id number] 08:44:00 Test Item Value Reference Range Interpretation Comments sodium, serum (test code = 159) 141 mmol/L 134-144 [facility] Centerurea nitrogen/creatinine ratio, [id number] 08:44:00 Test Item Value Reference Range Interpretation Comments urea nitrogen/creatinine ratio, serum 11 9-20 (test code = 2462) [facility] HealtheGFR if Hjgcsvmr3421-22-06 08:44:00 Test Item Value Reference Range Interpretation Comments eGFR if 101 >59 (test code = 495691) mL/min/((173/100).m2) [facility] CenterEstimated Glomerular Filtration Rate (calc)2018-05-21 08:44:00 Test Item Value Reference Range Interpretation Comments Estimated Glomerular 87 >59 Filtration Rate (calc) mL/min/((173/100).m2 (test code = 93096) ) [facility] Centercreatinine, [id number] 08:44:00 Test Item Value Reference Range Interpretation Comments creatinine, serum (test code = 18) 1.07 mg/dL 0.76-1.27 [facility] Centerurea nitrogen, [id number] 08:44:00 Test Item Value Reference Range Interpretation Comments urea nitrogen, blood (test code = 9) 12 mg/dL 6-20 [facility] Centerblood glucose, [id number] 08:44:00 Test Item Value Reference Range Interpretation Comments blood glucose, random (test code = 315 mg/dL 65-99 H 8) [facility] Centerimmature granulocytes, percentage of total cells, blood 2018-05-21 08:44:00 Test Item Value Reference Range Interpretation Comments immature granulocytes, percentage of 0 % total cells, blood (test code = 623398) [facility] Centerbasophil count, [id number] 08:44:00 Test Item Value Reference Range Interpretation Comments basophil count, absolute (test 0.0 x10E3/uL 0.0-0.2 code = 38761) [facility] HealthEosinophil Absolute [id number] 08:44:00 Test Item Value Reference Range Interpretation Comments Eosinophil Absolute Count (test 0.2 X10E3/UL 0.0-0.4 code = 616337) [facility] Healthmonocyte count, blood, [id number] 08:44:00 Test Item Value Reference Range Interpretation Comments monocyte count, blood, automated 0.3 X10E3/UL 0.1-0.9 (test code = 3076) [facility] Healthlymphocyte count, blood, bzqzszurs7855-38-79 08:44:00 Test Item Value Reference Range Interpretation Comments lymphocyte count, blood, 2.4 X10E3/UL 0.7-3.1 automated (test code = 3074) [facility] HealthAbsolute [id number] 08:44:00 Test Item Value Reference Range Interpretation Comments Absolute Neutrophils (test code 7.3 X10E3/UL 1.4-7.0 H = 41370) [facility] Healthbasophils as percent of blood migufmahat8430-60-80 08:44:00 Test Item Value Reference Range Interpretation Comments basophils as percent of blood 0 % leukocytes (test code = 2426) [facility] Healtheosinophils as percent of blood sckhmfjykb7157-26-46 08:44:00 Test Item Value Reference Range Interpretation Comments eosinophils as percent of blood 2 % leukocytes (test code = 4170) [facility] Healthmonocytes as percent of blood ecwhgvfgmh3245-00-22 08:44:00 Test Item Value Reference Range Interpretation Comments monocytes as percent of blood 3 % leukocytes (test code = 2421) [facility] Healthlymphocytes as percent of blood qamirdrzcr7143-49-05 08:44:00 Test Item Value Reference Range Interpretation Comments lymphocytes as percent of blood 24 % leukocytes (test code = 317) [facility] Centerneutrophils as percent of blood hwvsanorsj8145-09-98 08:44:00 Test Item Value Reference Range Interpretation Comments neutrophils as percent of blood 71 % leukocytes (test code = 316) [facility] Healthplatelet [id number] 08:44:00 Test Item Value Reference Range Interpretation Comments platelet count (test code = 66) 217 X10E3/UL 150-379 [facility] Centerred [facility] cell distribution [id number] 08:44:00 Test Item Value Reference Range Interpretation Comments red blood cell distribution width 14.2 % 12.3-15.4 (test code = 1030) [facility] corpus[facility] hemoglobin concentration, [id number] 08:44:00 Test Item Value Reference Range Interpretation Comments mean corpuscular hemoglobin 34.6 G/DL 31.5-35.7 concentration, RBC (test code = 1029) [facility] Centeran corpuscular hemoglobin, [id number] 08:44:00 Test Item Value Reference Range Interpretation Comments mean corpuscular hemoglobin, RBC 32.6 pg 26.6-33.0 (test code = 1031) [facility] corpuscular volume, [id number] 08:44:00 Test Item Value Reference Range Interpretation Comments mean corpuscular volume, RBC (test code 94 fL 79-97 = 315) [facility] Centerhematocrit, [id number] 08:44:00 Test Item Value Reference Range Interpretation Comments hematocrit, blood (test code = 64) 47.4 % 37.5-51.0 [facility] Centerhemoglobin, [id number] 08:44:00 Test Item Value Reference Range Interpretation Comments hemoglobin, blood (test code = 65) 16.4 g/dL 13.0-17.7 [facility] Centererythrocyte (RBC) [id number] 08:44:00 Test Item Value Reference Range Interpretation Comments erythrocyte (RBC) count (test 5.03 X10E6/UL 4.14-5.80 code = 67) [facility] Centerleukocyte count, [id number] 08:44:00 Test Item Value Reference Range Interpretation Comments leukocyte count, blood (test 10.2 X10E3/UL 3.4-10.8 code = 68) [facility] CenterCD4/CD8 [id number] 08:44:00 Test Item Value Reference Range Interpretation Comments CD4/CD8 ratio (test code = 37257) 1.64 0.92-3.72 [facility] CenterT-suppressor cells (CD8) as percent of blood lymphocytes 2018-05-21 08:44:00 Test Item Value Reference Range Interpretation Comments T-suppressor cells (CD8) as percent of 28.7 % 12.0-35.5 blood lymphocytes (test code = 3517) [facility] Centerabsolute [id number] 08:44:00 Test Item Value Reference Range Interpretation Comments absolute CD8 (test code = 61279) 689 109-897 [facility] CenterT-helper cells (CD4) as percent of blood lymphocytes 2018-05-21 08:44:00 Test Item Value Reference Range Interpretation Comments T-helper cells (CD4) as percent of 47.1 % 30.8-58.5 blood lymphocytes (test code = 8123-2) [facility] CenterT-helper cells (CD4) [id number] 08:44:00 Test Item Value Reference Range Interpretation Comments T-helper cells (CD4) count (test 1130 /UL 359-1519 code = 40539-5) [facility] Centerhepatitis C antibody, [id number] 11:58:00 Test Item Value Reference Range Interpretation Comments hepatitis C antibody, serum (test code 0.1 0.0-0.9 = 2722) [facility] CenterTreponema pallidum antibodies, by particle agglutination 2017-11-24 11:58:00 Test Item Value Reference Range Interpretation Comments Treponema pallidum antibodies, by Positive Negative A particle agglutination (test code = 14262-4) [facility] Centerrapid plasma reagin antibody, [id number] 11:58:00 Test Item Value Reference Range Interpretation Comments rapid plasma reagin antibody, serum 1:2 NonRea<1:1 H (test code = 308) [facility] Centerhemoglobin A1C, blood, as % of total [id number] 11:58:00 Test Item Value Reference Range Interpretation Comments hemoglobin A1C, blood, as % of total 6.2 % 4.8-5.6 H hemoglobin (test code = 4548-4) [facility] CenterHIV-1RNA, serum, by PCR, [id number] 11:58:00 Test Item Value Reference Range Interpretation Comments HIV-1RNA, serum, by PCR, <20 copies/mL quantitative (test code = 42948) [facility] CenterLDL cholesterol, [id number] 11:58:00 Test Item Value Reference Range Interpretation Comments LDL cholesterol, serum (test TRIGHI mg/dL 0-99 code = 2089-1) [facility] Centervery low density ubqajqhuzpgs0283-87-99 11:58:00 Test Item Value Reference Range Interpretation Comments very low density lipoproteins VLDLCH mg/dL 5-40 (test code = 2548) [facility] CenterHDL cholesterol, [id number] 11:58:00 Test Item Value Reference Range Interpretation Comments HDL cholesterol, serum (test code = 22 mg/dL >39 L 5-9) [facility] Centertriglyceride, serum, [id number] 11:58:00 Test Item Value Reference Range Interpretation Comments triglyceride, serum, fasting (test 471 mg/dL 0-149 H code = 2571-8) [facility] Centercholesterol, [id number] 11:58:00 Test Item Value Reference Range Interpretation Comments cholesterol, serum (test code = 159 mg/dL 136-882 5501-3) [facility] Centeralanine aminotransferase (SGPT), [id number] 11:58:00 Test Item Value Reference Range Interpretation Comments alanine aminotransferase (SGPT), serum 92 1/L 0-44 H (test code = 40) [facility] Centeraspartate aminotransferase (SGOT), [id number] 11:58:00 Test Item Value Reference Range Interpretation Comments aspartate aminotransferase (SGOT), 49 1/L 0-40 H serum (test code = 39) [facility] Centeralkaline phosphatase, [id number] 11:58:00 Test Item Value Reference Range Interpretation Comments alkaline phosphatase, serum (test code 79 1/L 39-117 = 3) [facility] Centerbilirubin, serum, [id number] 11:58:00 Test Item Value Reference Range Interpretation Comments bilirubin, serum, total (test code 0.4 mg/dL 0.0-1.2 = 43) [facility] Centeralbumin/globulin ratio, [id number] 11:58:00 Test Item Value Reference Range Interpretation Comments albumin/globulin ratio, serum (test 1.5 1.2-2.2 code = 146) [facility] Centerglobulin, [id number] 11:58:00 Test Item Value Reference Range Interpretation Comments globulin, serum (test code = 3059) 3.1 1.5-4.5 [facility] Healthalbumin, [id number] 11:58:00 Test Item Value Reference Range Interpretation Comments albumin, serum (test code = 2) 4.6 g/dL 3.5-5.5 [facility] Centerprotein, total, [id number] 11:58:00 Test Item Value Reference Range Interpretation Comments protein, total, serum (test code = 7.7 g/dL 6.0-8.5 36) [facility] Centercalcium, [id number] 11:58:00 Test Item Value Reference Range Interpretation Comments calcium, serum (test code = 11) 9.6 mg/dL 8.7-10.2 [facility] Centercarbon dioxide, venous [id number] 11:58:00 Test Item Value Reference Range Interpretation Comments carbon dioxide, venous blood (test 27 mmol/L - code = 15) [facility] Centerchloride, [id number] 11:58:00 Test Item Value Reference Range Interpretation Comments chloride, serum (test code = 13) 100 mmol/L 96-106 [facility] Centerpotassium, [id number] 11:58:00 Test Item Value Reference Range Interpretation Comments potassium, serum (test code = 35) 4.6 mmol/L 3.5-5.2 [facility] Centersodium, [id number] 11:58:00 Test Item Value Reference Range Interpretation Comments sodium, serum (test code = 159) 143 mmol/L 134-144 [facility] Centerurea nitrogen/creatinine ratio, [id number] 11:58:00 Test Item Value Reference Range Interpretation Comments urea nitrogen/creatinine ratio, serum 12 9-20 (test code = 2462) [facility] CentereGFR if [id number] 11:58:00 Test Item Value Reference Range Interpretation Comments eGFR if 99 >59 (test code = 469568) mL/min/((173/100).m2) [facility] CenterEstimated Glomerular Filtration Rate (calc)2017-11-24 11:58:00 Test Item Value Reference Range Interpretation Comments Estimated Glomerular 86 >59 Filtration Rate (calc) mL/min/((173/100).m2 (test code = 24196) ) [facility] Healthcreatinine, [id number] 11:58:00 Test Item Value Reference Range Interpretation Comments creatinine, serum (test code = 18) 1.08 mg/dL 0.76-1.27 [facility] Centerurea nitrogen, [id number] 11:58:00 Test Item Value Reference Range Interpretation Comments urea nitrogen, blood (test code = 9) 13 mg/dL 6-20 [facility] Centerblood glucose, [id number] 11:58:00 Test Item Value Reference Range Interpretation Comments blood glucose, random (test code = 178 mg/dL 65-99 H 8) [facility] Centerimmature granulocytes, percentage of total cells, blood 2017-11-24 11:58:00 Test Item Value Reference Range Interpretation Comments immature granulocytes, percentage of 1 % total cells, blood (test code = 273248) [facility] Centerbasophil count, [id number] 11:58:00 Test Item Value Reference Range Interpretation Comments basophil count, absolute (test 0.0 x10E3/uL 0.0-0.2 code = 93231) [facility] CenterEosinophil Absolute [id number] 11:58:00 Test Item Value Reference Range Interpretation Comments Eosinophil Absolute Count (test 0.1 X10E3/UL 0.0-0.4 code = 233692) [facility] Centermonocyte count, blood, [id number] 11:58:00 Test Item Value Reference Range Interpretation Comments monocyte count, blood, automated 0.3 X10E3/UL 0.1-0.9 (test code = 3076) [facility] Centerlymphocyte count, blood, ndjjqcpsm5573-33-15 11:58:00 Test Item Value Reference Range Interpretation Comments lymphocyte count, blood, 1.9 X10E3/UL 0.7-3.1 automated (test code = 3074) [facility] CenterAbsolute Njfptvcbenx3005-27-79 11:58:00 Test Item Value Reference Range Interpretation Comments Absolute Neutrophils (test code 4.7 X10E3/UL 1.4-7.0 = 54169) [facility] Centerbasophils as percent of blood rewmcbenxf5838-66-82 11:58:00 Test Item Value Reference Range Interpretation Comments basophils as percent of blood 0 % leukocytes (test code = 2426) [facility] Centereosinophils as percent of blood sgkgzejshq2595-42-88 11:58:00 Test Item Value Reference Range Interpretation Comments eosinophils as percent of blood 2 % leukocytes (test code = 4170) [facility] Healthmonocytes as percent of blood ptwclzpncx9024-85-00 11:58:00 Test Item Value Reference Range Interpretation Comments monocytes as percent of blood 4 % leukocytes (test code = 2421) [facility] Centerlymphocytes as percent of blood fdwliagvcb4992-72-35 11:58:00 Test Item Value Reference Range Interpretation Comments lymphocytes as percent of blood 26 % leukocytes (test code = 317) [facility] Centerneutrophils as percent of blood adislzttde4983-33-04 11:58:00 Test Item Value Reference Range Interpretation Comments neutrophils as percent of blood 67 % leukocytes (test code = 316) [facility] Centerplatelet [id number] 11:58:00 Test Item Value Reference Range Interpretation Comments platelet count (test code = 66) 247 X10E3/UL 150-379 [facility] Centerred blood cell distribution [id number] 11:58:00 Test Item Value Reference Range Interpretation Comments red blood cell distribution width 13.7 % 12.3-15.4 (test code = 1030) [facility] corpuscular hemoglobin concentration, [id number] 11:58:00 Test Item Value Reference Range Interpretation Comments mean corpuscular hemoglobin 34.8 G/DL 31.5-35.7 concentration, RBC (test code = 1029) [facility] corpuscular hemoglobin, [id number] 11:58:00 Test Item Value Reference Range Interpretation Comments mean corpuscular hemoglobin, RBC 31.4 pg 26.6-33.0 (test code = 1031) [facility] corpuscular volume, [id number] 11:58:00 Test Item Value Reference Range Interpretation Comments mean corpuscular volume, RBC (test code 90 fL 79-97 = 315) [facility] Centerhematocrit, [id number] 11:58:00 Test Item Value Reference Range Interpretation Comments hematocrit, blood (test code = 64) 47.7 % 37.5-51.0 [facility] Centerhemoglobin, [id number] 11:58:00 Test Item Value Reference Range Interpretation Comments hemoglobin, blood (test code = 65) 16.6 g/dL 13.0-17.7 [facility] Centererythrocyte (RBC) [id number] 11:58:00 Test Item Value Reference Range Interpretation Comments erythrocyte (RBC) count (test 5.29 X10E6/UL 4.14-5.80 code = 67) [facility] Centerleukocyte count, [id number] 11:58:00 Test Item Value Reference Range Interpretation Comments leukocyte count, blood (test 7.1 X10E3/UL 3.4-10.8 code = 68) [facility] CenterCD4/CD8 [id number] 11:58:00 Test Item Value Reference Range Interpretation Comments CD4/CD8 ratio (test code = 81596) 1.39 0.92-3.72 [facility] CenterT-suppressor cells (CD8) as percent of blood lymphocytes 2017-11-24 11:58:00 Test Item Value Reference Range Interpretation Comments T-suppressor cells (CD8) as percent of 32.4 % 12.0-35.5 blood lymphocytes (test code = 3517) [facility] Centerabsolute [id number] 11:58:00 Test Item Value Reference Range Interpretation Comments absolute CD8 (test code = 24778) 616 109-827 [facility] CenterT-helper cells (CD4) as percent of blood lymphocytes 2017-11-24 11:58:00 Test Item Value Reference Range Interpretation Comments T-helper cells (CD4) as percent of 44.9 % 30.8-58.5 blood lymphocytes (test code = 8123-2) [facility] CenterT-helper cells (CD4) [id number] 11:58:00 Test Item Value Reference Range Interpretation Comments T-helper cells (CD4) count (test code 853 /UL 359-1519 = 91734-8) [facility] CenterTreponema pallidum antibodies, by particle agglutination 2017-06-16 09:37:00 Test Item Value Reference Range Interpretation Comments Treponema pallidum antibodies, by Positive Negative A particle agglutination (test code = 55176-1) [facility] Centerrapid plasma reagin antibody, [id number] 09:37:00 Test Item Value Reference Range Interpretation Comments rapid plasma reagin antibody, serum 1:4 NonRea<1:1 H (test code = 308) [facility] Centerhemoglobin A1C, blood, as % of total [id number] 09:37:00 Test Item Value Reference Range Interpretation Comments hemoglobin A1C, blood, as % of total 6.8 % 4.8-5.6 H hemoglobin (test code = 4548-4) [facility] CenterHIV-1RNA, serum, by PCR, [id number] 09:37:00 Test Item Value Reference Range Interpretation Comments HIV-1RNA, serum, by PCR, quantitative 40 /mL (test code = 64771) [facility] CenterLDL cholesterol, [id number] 09:37:00 Test Item Value Reference Range Interpretation Comments LDL cholesterol, serum (test code = 68 mg/dL 0-99 2088-1) [facility] Centervery low density hehljbflnfkc5285-83-98 09:37:00 Test Item Value Reference Range Interpretation Comments very low density lipoproteins (test 78 mg/dL 5-40 H code = 2548) [facility] CenterHDL cholesterol, [id number] 09:37:00 Test Item Value Reference Range Interpretation Comments HDL cholesterol, serum (test code = 25 mg/dL >39 L 5-9) [facility] Centertriglyceride, serum, [id number] 09:37:00 Test Item Value Reference Range Interpretation Comments triglyceride, serum, fasting (test 390 mg/dL 0-149 H code = 2571-8) [facility] Centercholesterol, [id number] 09:37:00 Test Item Value Reference Range Interpretation Comments cholesterol, serum (test code = 171 mg/dL 295-958 2589-3) [facility] Centeralanine aminotransferase (SGPT), [id number] 09:37:00 Test Item Value Reference Range Interpretation Comments alanine aminotransferase (SGPT), serum 77 1/L 0-44 H (test code = 40) [facility] Centeraspartate aminotransferase (SGOT), [id number] 09:37:00 Test Item Value Reference Range Interpretation Comments aspartate aminotransferase (SGOT), 46 1/L 0-40 H serum (test code = 39) [facility] Centeralkaline phosphatase, [id number] 09:37:00 Test Item Value Reference Range Interpretation Comments alkaline phosphatase, serum (test code 89 1/L 39-117 = 3) [facility] Centerbilirubin, serum, [id number] 09:37:00 Test Item Value Reference Range Interpretation Comments bilirubin, serum, total (test code 0.4 mg/dL 0.0-1.2 = 43) [facility] Healthalbumin/globulin ratio, [id number] 09:37:00 Test Item Value Reference Range Interpretation Comments albumin/globulin ratio, serum (test 1.7 1.2-2.2 code = 146) [facility] Healthglobulin, [id number] 09:37:00 Test Item Value Reference Range Interpretation Comments globulin, serum (test code = 3059) 2.6 1.5-4.5 [facility] Healthalbumin, [id number] 09:37:00 Test Item Value Reference Range Interpretation Comments albumin, serum (test code = 2) 4.4 g/dL 3.5-5.5 [facility] Centerprotein, total, [id number] 09:37:00 Test Item Value Reference Range Interpretation Comments protein, total, serum (test code = 7.0 g/dL 6.0-8.5 36) [facility] Centercalcium, [id number] 09:37:00 Test Item Value Reference Range Interpretation Comments calcium, serum (test code = 11) 9.3 mg/dL 8.7-10.2 [facility] Centercarbon dioxide, venous [id number] 09:37:00 Test Item Value Reference Range Interpretation Comments carbon dioxide, venous blood (test 25 mmol/L 18-29 code = 15) [facility] Centerchloride, [id number] 09:37:00 Test Item Value Reference Range Interpretation Comments chloride, serum (test code = 13) 102 mmol/L 96-106 [facility] Centerpotassium, [id number] 09:37:00 Test Item Value Reference Range Interpretation Comments potassium, serum (test code = 35) 4.6 mmol/L 3.5-5.2 [facility] Centersodium, [id number] 09:37:00 Test Item Value Reference Range Interpretation Comments sodium, serum (test code = 159) 142 mmol/L 134-144 [facility] Centerurea nitrogen/creatinine ratio, [id number] 09:37:00 Test Item Value Reference Range Interpretation Comments urea nitrogen/creatinine ratio, serum 9 9-20 (test code = 2462) [facility] HealtheGFR if Apyqcvqb6756-71-80 09:37:00 Test Item Value Reference Range Interpretation Comments eGFR if 127 >59 (test code = 773057) mL/min/((173/100).m2) [facility] CenterEstimated Glomerular Filtration Rate (calc)2017-06-16 09:37:00 Test Item Value Reference Range Interpretation Comments Estimated Glomerular 110 >59 Filtration Rate (calc) mL/min/((173/100).m2 (test code = 96457) ) [facility] Centercreatinine, [id number] 09:37:00 Test Item Value Reference Range Interpretation Comments creatinine, serum (test code = 18) 0.86 mg/dL 0.76-1.27 [facility] Centerurea nitrogen, [id number] 09:37:00 Test Item Value Reference Range Interpretation Comments urea nitrogen, blood (test code = 9) 8 mg/dL 6-20 [facility] Centerblood glucose, [id number] 09:37:00 Test Item Value Reference Range Interpretation Comments blood glucose, random (test code = 236 mg/dL 65-99 H 8) [facility] Centerimmature granulocytes, percentage of total cells, blood 2017-06-16 09:37:00 Test Item Value Reference Range Interpretation Comments immature granulocytes, percentage of 0 % total cells, blood (test code = 110442) [facility] Centerbasophil count, [id number] 09:37:00 Test Item Value Reference Range Interpretation Comments basophil count, absolute (test 0.0 x10E3/uL 0.0-0.2 code = 79397) [facility] CenterEosinophil Absolute [id number] 09:37:00 Test Item Value Reference Range Interpretation Comments Eosinophil Absolute Count (test 0.2 X10E3/UL 0.0-0.4 code = 297034) [facility] Centermonocyte count, blood, [id number] 09:37:00 Test Item Value Reference Range Interpretation Comments monocyte count, blood, automated 0.3 X10E3/UL 0.1-0.9 (test code = 3076) [facility] Centerlymphocyte count, blood, [id number] 09:37:00 Test Item Value Reference Range Interpretation Comments lymphocyte count, blood, 2.1 X10E3/UL 0.7-3.1 automated (test code = 3074) [facility] CenterAbsolute Ljsuyhjnele8023-65-61 09:37:00 Test Item Value Reference Range Interpretation Comments Absolute Neutrophils (test code 5.2 X10E3/UL 1.4-7.0 = 23554) [facility] Centerbasophils as percent of blood oyfybmpkli3849-08-20 09:37:00 Test Item Value Reference Range Interpretation Comments basophils as percent of blood 1 % leukocytes (test code = 2426) [facility] Centereosinophils as percent of blood dxaynldeoh4367-66-64 09:37:00 Test Item Value Reference Range Interpretation Comments eosinophils as percent of blood 2 % leukocytes (test code = 4170) [facility] Healthmonocytes as percent of blood snbnjsnckn8129-92-93 09:37:00 Test Item Value Reference Range Interpretation Comments monocytes as percent of blood 4 % leukocytes (test code = 2421) [facility] Centerlymphocytes as percent of blood uxgquufzmh2940-82-81 09:37:00 Test Item Value Reference Range Interpretation Comments lymphocytes as percent of blood 26 % leukocytes (test code = 317) [facility] Centerneutrophils as percent of blood rxachulzsc1525-93-87 09:37:00 Test Item Value Reference Range Interpretation Comments neutrophils as percent of blood 67 % leukocytes (test code = 316) [facility] Centerplatelet [id number] 09:37:00 Test Item Value Reference Range Interpretation Comments platelet count (test code = 66) 239 X10E3/UL 150-379 [facility] Centerred blood cell distribution vnyxa3821-07-19 09:37:00 Test Item Value Reference Range Interpretation Comments red blood cell distribution width 13.0 % 12.3-15.4 (test code = 1030) [facility] Centermean corpuscular hemoglobin concentration, [id number] 09:37:00 Test Item Value Reference Range Interpretation Comments mean corpuscular hemoglobin 35.0 G/DL 31.5-35.7 concentration, RBC (test code = 1029) [facility] Centermean corpuscular hemoglobin, [id number] 09:37:00 Test Item Value Reference Range Interpretation Comments mean corpuscular hemoglobin, RBC 31.1 pg 26.6-33.0 (test code = 1031) [facility]an corpuscular volume, [id number] 09:37:00 Test Item Value Reference Range Interpretation Comments mean corpuscular volume, RBC (test code 89 fL 79-97 = 315) [facility] Centerhematocrit, [id number] 09:37:00 Test Item Value Reference Range Interpretation Comments hematocrit, blood (test code = 64) 46.9 % 37.5-51.0 [facility] Centerhemoglobin, [id number] 09:37:00 Test Item Value Reference Range Interpretation Comments hemoglobin, blood (test code = 65) 16.4 g/dL 12.6-17.7 [facility] Centererythrocyte (RBC) [id number] 09:37:00 Test Item Value Reference Range Interpretation Comments erythrocyte (RBC) count (test 5.27 X10E6/UL 4.14-5.80 code = 67) [facility] Centerleukocyte count, [id number] 09:37:00 Test Item Value Reference Range Interpretation Comments leukocyte count, blood (test 7.8 X10E3/UL 3.4-10.8 code = 68) [facility] CenterCD4/CD8 [id number] 09:37:00 Test Item Value Reference Range Interpretation Comments CD4/CD8 ratio (test code = 34549) 1.20 0.92-3.72 [facility] CenterT-suppressor cells (CD8) as percent of blood lymphocytes 2017-06-16 09:37:00 Test Item Value Reference Range Interpretation Comments T-suppressor cells (CD8) as percent of 34.8 % 12.0-35.5 blood lymphocytes (test code = 3517) [facility] Centerabsolute [id number] 09:37:00 Test Item Value Reference Range Interpretation Comments absolute CD8 (test code = 67575) 731 109-897 [facility] CenterT-helper cells (CD4) as percent of blood lymphocytes 2017-06-16 09:37:00 Test Item Value Reference Range Interpretation Comments T-helper cells (CD4) as percent of 41.9 % 30.8-58.5 blood lymphocytes (test code = 8123-2) [facility] CenterT-helper cells (CD4) [id number] 09:37:00 Test Item Value Reference Range Interpretation Comments T-helper cells (CD4) count (test code 880 /UL 359-1519 = 60680-4) [facility] CenterNeisseria gonorrhoeae DNA [id number] 09:48:00 Test Item Value Reference Range Interpretation Comments Neisseria gonorrhoeae DNA probe Negative Negative (test code = 13645-8) [facility] Centerchlamydia DNA [id number] 09:48:00 Test Item Value Reference Range Interpretation Comments chlamydia DNA probe (test code = Negative Negative 49261-8) [facility] CenterTreponema pallidum antibodies, by particle agglutination 2017-01-18 09:31:00 Test Item Value Reference Range Interpretation Comments Treponema pallidum antibodies, by Positive Negative A particle agglutination (test code = 27415-2) [facility] Centerrapid plasma reagin antibody, [id number] 09:31:00 Test Item Value Reference Range Interpretation Comments rapid plasma reagin antibody, serum 1:4 NonRea<1:1 H (test code = 308) [facility] CenterHIV-1RNA, serum, by PCR, [id number] 09:31:00 Test Item Value Reference Range Interpretation Comments HIV-1RNA, serum, by PCR, <20 copies/mL quantitative (test code = 47813) [facility] CenterHepatitis B virus DNA, by Polymerase Chain Reaction 2017-01-18 09:31:00 Test Item Value Reference Range Interpretation Comments Hepatitis B virus DNA, by Polymerase <10 Chain Reaction (test code = 31448) [facility] CenterLDL cholesterol, gqrfm5029-04-19 09:31:00 Test Item Value Reference Range Interpretation Comments LDL cholesterol, serum (test TRIGHI mg/dL 0-99 code = 2089-1) [facility] Centervery low density arczklcmgqtp2436-19-39 09:31:00 Test Item Value Reference Range Interpretation Comments very low density lipoproteins VLDLCH mg/dL 5-40 (test code = 2548) [facility] CenterHDL cholesterol, [id number] 09:31:00 Test Item Value Reference Range Interpretation Comments HDL cholesterol, serum (test code = 17 mg/dL >39 L 5-9) [facility] Centertriglyceride, serum, [id number] 09:31:00 Test Item Value Reference Range Interpretation Comments triglyceride, serum, fasting (test 559 mg/dL 0-149 HH code = 2571-8) [facility] Centercholesterol, [id number] 09:31:00 Test Item Value Reference Range Interpretation Comments cholesterol, serum (test code = 174 mg/dL 919-373 2790-3) [facility] Centeralanine aminotransferase (SGPT), [id number] 09:31:00 Test Item Value Reference Range Interpretation Comments alanine aminotransferase (SGPT), serum 90 1/L 0-44 H (test code = 40) [facility] Centeraspartate aminotransferase (SGOT), [id number] 09:31:00 Test Item Value Reference Range Interpretation Comments aspartate aminotransferase (SGOT), 66 1/L 0-40 H serum (test code = 39) [facility] Centeralkaline phosphatase, [id number] 09:31:00 Test Item Value Reference Range Interpretation Comments alkaline phosphatase, serum (test 104 1/L 39-117 code = 3) [facility] Centerbilirubin, serum, [id number] 09:31:00 Test Item Value Reference Range Interpretation Comments bilirubin, serum, total (test code 0.4 mg/dL 0.0-1.2 = 43) [facility] Centeralbumin/globulin ratio, [id number] 09:31:00 Test Item Value Reference Range Interpretation Comments albumin/globulin ratio, serum (test 1.3 1.2-2.2 code = 146) [facility] Centerglobulin, [id number] 09:31:00 Test Item Value Reference Range Interpretation Comments globulin, serum (test code = 3059) 3.0 1.5-4.5 [facility] Centeralbumin, [id number] 09:31:00 Test Item Value Reference Range Interpretation Comments albumin, serum (test code = 2) 4.0 g/dL 3.5-5.5 [facility] Healthprotein, total, [id number] 09:31:00 Test Item Value Reference Range Interpretation Comments protein, total, serum (test code = 7.0 g/dL 6.0-8.5 36) [facility] Centercalcium, [id number] 09:31:00 Test Item Value Reference Range Interpretation Comments calcium, serum (test code = 11) 9.0 mg/dL 8.7-10.2 [facility] Centercarbon dioxide, venous [id number] 09:31:00 Test Item Value Reference Range Interpretation Comments carbon dioxide, venous blood (test 22 mmol/L 18-29 code = 15) [facility] Centerchloride, [id number] 09:31:00 Test Item Value Reference Range Interpretation Comments chloride, serum (test code = 13) 100 mmol/L 96-106 [facility] Centerpotassium, [id number] 09:31:00 Test Item Value Reference Range Interpretation Comments potassium, serum (test code = 35) 4.3 mmol/L 3.5-5.2 [facility] Centersodium, [id number] 09:31:00 Test Item Value Reference Range Interpretation Comments sodium, serum (test code = 159) 139 mmol/L 134-144 [facility] Centerurea nitrogen/creatinine ratio, [id number] 09:31:00 Test Item Value Reference Range Interpretation Comments urea nitrogen/creatinine ratio, serum 8 8-19 (test code = 2462) [facility] HealtheGFR if Mkwmpqoa0328-58-52 09:31:00 Test Item Value Reference Range Interpretation Comments eGFR if 107 >59 (test code = 604004) mL/min/((173/100).m2) [facility] CenterEstimated Glomerular Filtration Rate (calc)2017-01-18 09:31:00 Test Item Value Reference Range Interpretation Comments Estimated Glomerular 93 >59 Filtration Rate (calc) mL/min/((173/100).m2 (test code = 26871) ) [facility] Centercreatinine, [id number] 09:31:00 Test Item Value Reference Range Interpretation Comments creatinine, serum (test code = 18) 1.02 mg/dL 0.76-1.27 [facility] Healthurea nitrogen, [id number] 09:31:00 Test Item Value Reference Range Interpretation Comments urea nitrogen, blood (test code = 9) 8 mg/dL 6-20 [facility] Centerblood glucose, [id number] 09:31:00 Test Item Value Reference Range Interpretation Comments blood glucose, random (test code = 313 mg/dL 65-99 H 8) [facility] Centerimmature granulocytes, percentage of total cells, blood 2017-01-18 09:31:00 Test Item Value Reference Range Interpretation Comments immature granulocytes, percentage of 0 % total cells, blood (test code = 404911) [facility] Centerbasophil count, [id number] 09:31:00 Test Item Value Reference Range Interpretation Comments basophil count, absolute (test 0.0 x10E3/uL 0.0-0.2 code = 61668) [facility] CenterEosinophil Absolute [id number] 09:31:00 Test Item Value Reference Range Interpretation Comments Eosinophil Absolute Count (test 0.3 X10E3/UL 0.0-0.4 code = 059869) [facility] Centermonocyte count, blood, dsmucdudr2309-57-57 09:31:00 Test Item Value Reference Range Interpretation Comments monocyte count, blood, automated 0.4 X10E3/UL 0.1-0.9 (test code = 3076) [facility] Centerlymphocyte count, blood, dlksyptcf4499-74-15 09:31:00 Test Item Value Reference Range Interpretation Comments lymphocyte count, blood, 1.6 X10E3/UL 0.7-3.1 automated (test code = 3074) [facility] CenterAbsolute Kuqzyetkbfv4740-80-08 09:31:00 Test Item Value Reference Range Interpretation Comments Absolute Neutrophils (test code 5.9 X10E3/UL 1.4-7.0 = 53825) [facility] Centerbasophils as percent of blood cpjgaujxog7213-86-57 09:31:00 Test Item Value Reference Range Interpretation Comments basophils as percent of blood 0 % leukocytes (test code = 2426) [facility] Centereosinophils as percent of blood azabsfbxnx5957-34-66 09:31:00 Test Item Value Reference Range Interpretation Comments eosinophils as percent of blood 3 % leukocytes (test code = 4170) [facility] Healthmonocytes as percent of blood elmliqchau7195-24-29 09:31:00 Test Item Value Reference Range Interpretation Comments monocytes as percent of blood 5 % leukocytes (test code = 2421) [facility] Centerlymphocytes as percent of blood abymwywini4154-02-01 09:31:00 Test Item Value Reference Range Interpretation Comments lymphocytes as percent of blood 19 % leukocytes (test code = 317) [facility] Centerneutrophils as percent of blood qypegbbjpx2036-55-21 09:31:00 Test Item Value Reference Range Interpretation Comments neutrophils as percent of blood 73 % leukocytes (test code = 316) [facility] Centerplatelet [id number] 09:31:00 Test Item Value Reference Range Interpretation Comments platelet count (test code = 66) 192 X10E3/UL 150-379 [facility] Centerred blood cell distribution ysfww2379-01-01 09:31:00 Test Item Value Reference Range Interpretation Comments red blood cell distribution width 13.7 % 12.3-15.4 (test code = 1030) [facility] corpuscular hemoglobin concentration, [id number] 09:31:00 Test Item Value Reference Range Interpretation Comments mean corpuscular hemoglobin 34.7 G/DL 31.5-35.7 concentration, RBC (test code = 1029) [facility] corpuscular hemoglobin, [id number] 09:31:00 Test Item Value Reference Range Interpretation Comments mean corpuscular hemoglobin, RBC 32.0 pg 26.6-33.0 (test code = 1031) [facility] corpuscular volume, [id number] 09:31:00 Test Item Value Reference Range Interpretation Comments mean corpuscular volume, RBC (test code 92 fL 79-97 = 315) [facility] Centerhematocrit, [id number] 09:31:00 Test Item Value Reference Range Interpretation Comments hematocrit, blood (test code = 64) 48.1 % 37.5-51.0 [facility] Centerhemoglobin, [id number] 09:31:00 Test Item Value Reference Range Interpretation Comments hemoglobin, blood (test code = 65) 16.7 g/dL 12.6-17.7 [facility] Centererythrocyte (RBC) [id number] 09:31:00 Test Item Value Reference Range Interpretation Comments erythrocyte (RBC) count (test 5.22 X10E6/UL 4.14-5.80 code = 67) [facility] Centerleukocyte count, [id number] 09:31:00 Test Item Value Reference Range Interpretation Comments leukocyte count, blood (test 8.3 X10E3/UL 3.4-10.8 code = 68) [facility] CenterCD4/CD8 [id number] 09:31:00 Test Item Value Reference Range Interpretation Comments CD4/CD8 ratio (test code = 74330) 1.43 0.92-3.72 [facility] CenterT-suppressor cells (CD8) as percent of blood lymphocytes 2017-01-18 09:31:00 Test Item Value Reference Range Interpretation Comments T-suppressor cells (CD8) as percent of 32.0 % 12.0-35.5 blood lymphocytes (test code = 3517) [facility] Centerabsolute [id number] 09:31:00 Test Item Value Reference Range Interpretation Comments absolute CD8 (test code = 87710) 512 109-897 [facility] CenterT-helper cells (CD4) as percent of blood lymphocytes 2017-01-18 09:31:00 Test Item Value Reference Range Interpretation Comments T-helper cells (CD4) as percent of 45.9 % 30.8-58.5 blood lymphocytes (test code = 8123-2) [facility] CenterT-helper cells (CD4) [id number] 09:31:00 Test Item Value Reference Range Interpretation Comments T-helper cells (CD4) count (test code 734 /UL 359-1519 = 84388-8) [facility] CenterQuantiferon Gold TB blood test for tuberculosis screening 2016-07-21 10:14:00 Test Item Value Reference Range Interpretation Comments Quantiferon Gold TB blood test for Negative Negative tuberculosis screening (test code = 169977) [facility] CenterTreponema pallidum antibodies, by particle agglutination 2016-07-21 10:14:00 Test Item Value Reference Range Interpretation Comments Treponema pallidum antibodies, by Positive Negative A particle agglutination (test code = 48951-1) [facility] Centerrapid plasma reagin antibody, [id number] 10:14:00 Test Item Value Reference Range Interpretation Comments rapid plasma reagin antibody, serum 1:2 NonRea<1:1 H (test code = 308) [facility] CenterHIV-1RNA, serum, by PCR, rzjjtvnapkwf2214-03-14 10:14:00 Test Item Value Reference Range Interpretation Comments HIV-1RNA, serum, by PCR, <20 copies/mL quantitative (test code = 99686) [facility] CenterLDL cholesterol, [id number] 10:14:00 Test Item Value Reference Range Interpretation Comments LDL cholesterol, serum (test TRIGHI mg/dL 0-99 code = 2089-1) [facility] Centervery low density zwaffsvetaos1143-19-29 10:14:00 Test Item Value Reference Range Interpretation Comments very low density lipoproteins VLDLCH mg/dL 5-40 (test code = 2548) [facility] CenterHDL cholesterol, [id number] 10:14:00 Test Item Value Reference Range Interpretation Comments HDL cholesterol, serum (test code = 19 mg/dL >39 L 5-9) [facility] Centertriglyceride, serum, [id number] 10:14:00 Test Item Value Reference Range Interpretation Comments triglyceride, serum, fasting (test 452 mg/dL 0-149 H code = 2571-8) [facility] Centercholesterol, [id number] 10:14:00 Test Item Value Reference Range Interpretation Comments cholesterol, serum (test code = 144 mg/dL 797-851 5815-3) [facility] Centeralanine aminotransferase (SGPT), [id number] 10:14:00 Test Item Value Reference Range Interpretation Comments alanine aminotransferase (SGPT), 128 1/L 0-44 H serum (test code = 40) [facility] Centeraspartate aminotransferase (SGOT), [id number] 10:14:00 Test Item Value Reference Range Interpretation Comments aspartate aminotransferase (SGOT), 65 1/L 0-40 H serum (test code = 39) [facility] Centeralkaline phosphatase, [id number] 10:14:00 Test Item Value Reference Range Interpretation Comments alkaline phosphatase, serum (test 115 1/L 39-117 code = 3) [facility]bilirubin, serum, [id number] 10:14:00 Test Item Value Reference Range Interpretation Comments bilirubin, serum, total (test code 0.6 mg/dL 0.0-1.2 = 43) [facility] Healthalbumin/globulin ratio, [id number] 10:14:00 Test Item Value Reference Range Interpretation Comments albumin/globulin ratio, serum (test 1.5 1.1-2.5 code = 146) [facility] Healthglobulin, [id number] 10:14:00 Test Item Value Reference Range Interpretation Comments globulin, serum (test code = 3059) 2.8 1.5-4.5 [facility] Healthalbumin, [id number] 10:14:00 Test Item Value Reference Range Interpretation Comments albumin, serum (test code = 2) 4.2 g/dL 3.5-5.5 [facility] Healthprotein, total, [id number] 10:14:00 Test Item Value Reference Range Interpretation Comments protein, total, serum (test code = 7.0 g/dL 6.0-8.5 36) [facility] Healthcalcium, [id number] 10:14:00 Test Item Value Reference Range Interpretation Comments calcium, serum (test code = 11) 8.8 mg/dL 8.7-10.2 [facility] Centercarbon dioxide, venous [id number] 10:14:00 Test Item Value Reference Range Interpretation Comments carbon dioxide, venous blood (test 18 mmol/L 18-29 code = 15) [facility] Healthchloride, [id number] 10:14:00 Test Item Value Reference Range Interpretation Comments chloride, serum (test code = 13) 101 mmol/L 97-108 [facility] Healthpotassium, [id number] 10:14:00 Test Item Value Reference Range Interpretation Comments potassium, serum (test code = 35) 4.0 mmol/L 3.5-5.2 [facility] Centersodium, [id number] 10:14:00 Test Item Value Reference Range Interpretation Comments sodium, serum (test code = 159) 139 mmol/L 134-144 [facility] Centerurea nitrogen/creatinine ratio, [id number] 10:14:00 Test Item Value Reference Range Interpretation Comments urea nitrogen/creatinine ratio, serum 10 8-19 (test code = 2462) [facility] HealtheGFR if Nvriewsm0698-84-74 10:14:00 Test Item Value Reference Range Interpretation Comments eGFR if 121 >59 (test code = 658839) mL/min/((173/100).m2) [facility] CenterEstimated Glomerular Filtration Rate (calc)2016-07-21 10:14:00 Test Item Value Reference Range Interpretation Comments Estimated Glomerular 105 >59 Filtration Rate (calc) mL/min/((173/100).m2 (test code = 85868) ) [facility] Centercreatinine, [id number] 10:14:00 Test Item Value Reference Range Interpretation Comments creatinine, serum (test code = 18) 0.93 mg/dL 0.76-1.27 [facility] Centerurea nitrogen, [id number] 10:14:00 Test Item Value Reference Range Interpretation Comments urea nitrogen, blood (test code = 9) 9 mg/dL 6-20 [facility] Centerblood glucose, [id number] 10:14:00 Test Item Value Reference Range Interpretation Comments blood glucose, random (test code = 362 mg/dL 65-99 H 8) [facility] Centerimmature granulocytes, percentage of total cells, blood 2016-07-21 10:14:00 Test Item Value Reference Range Interpretation Comments immature granulocytes, percentage of 0 % total cells, blood (test code = 715575) [facility] Centerbasophil count, [id number] 10:14:00 Test Item Value Reference Range Interpretation Comments basophil count, absolute (test 0.0 x10E3/uL 0.0-0.2 code = 52668) [facility] CenterEosinophil Absolute [id number] 10:14:00 Test Item Value Reference Range Interpretation Comments Eosinophil Absolute Count (test 0.2 X10E3/UL 0.0-0.4 code = 256178) [facility] Centermonocyte count, blood, eoyhlntvt3819-64-34 10:14:00 Test Item Value Reference Range Interpretation Comments monocyte count, blood, automated 0.3 X10E3/UL 0.1-0.9 (test code = 3076) [facility] Centerlymphocyte count, blood, wmibozjvf5093-52-01 10:14:00 Test Item Value Reference Range Interpretation Comments lymphocyte count, blood, 1.6 X10E3/UL 0.7-3.1 automated (test code = 3074) [facility] CenterAbsolute Ehpxbzizefi4892-19-44 10:14:00 Test Item Value Reference Range Interpretation Comments Absolute Neutrophils (test code 3.7 X10E3/UL 1.4-7.0 = 79673) [facility] Centerbasophils as percent of blood fgsgxhorix5677-93-89 10:14:00 Test Item Value Reference Range Interpretation Comments basophils as percent of blood 0 % leukocytes (test code = 2426) [facility] Centereosinophils as percent of blood bmnvlylivc9867-80-69 10:14:00 Test Item Value Reference Range Interpretation Comments eosinophils as percent of blood 3 % leukocytes (test code = 4170) [facility] Healthmonocytes as percent of blood yxbhnyohsg9285-08-88 10:14:00 Test Item Value Reference Range Interpretation Comments monocytes as percent of blood 5 % leukocytes (test code = 2421) [facility] Centerlymphocytes as percent of blood oicolxcsaz1337-94-73 10:14:00 Test Item Value Reference Range Interpretation Comments lymphocytes as percent of blood 27 % leukocytes (test code = 317) [facility] Centerneutrophils as percent of blood icetizhbvs0454-98-55 10:14:00 Test Item Value Reference Range Interpretation Comments neutrophils as percent of blood 65 % leukocytes (test code = 316) [facility] Centerplatelet [id number] 10:14:00 Test Item Value Reference Range Interpretation Comments platelet count (test code = 66) 165 X10E3/UL 150-379 [facility] Centerred blood cell distribution [id number] 10:14:00 Test Item Value Reference Range Interpretation Comments red blood cell distribution width 13.6 % 12.3-15.4 (test code = 1030) [facility]an corpuscular hemoglobin concentration, [id number] 10:14:00 Test Item Value Reference Range Interpretation Comments mean corpuscular hemoglobin 34.6 G/DL 31.5-35.7 concentration, RBC (test code = 1029) [facility] Centeran corpuscular hemoglobin, [id number] 10:14:00 Test Item Value Reference Range Interpretation Comments mean corpuscular hemoglobin, RBC 31.0 pg 26.6-33.0 (test code = 1031) [facility] Centermean corpuscular volume, [id number] 10:14:00 Test Item Value Reference Range Interpretation Comments mean corpuscular volume, RBC (test code 90 fL 79-97 = 315) [facility] Centerhematocrit, [id number] 10:14:00 Test Item Value Reference Range Interpretation Comments hematocrit, blood (test code = 64) 45.6 % 37.5-51.0 [facility] Centerhemoglobin, [id number] 10:14:00 Test Item Value Reference Range Interpretation Comments hemoglobin, blood (test code = 65) 15.8 g/dL 12.6-17.7 [facility] Centererythrocyte (RBC) [id number] 10:14:00 Test Item Value Reference Range Interpretation Comments erythrocyte (RBC) count (test 5.09 X10E6/UL 4.14-5.80 code = 67) [facility] Centerleukocyte count, [id number] 10:14:00 Test Item Value Reference Range Interpretation Comments leukocyte count, blood (test 5.8 X10E3/UL 3.4-10.8 code = 68) [facility] CenterCD4/CD8 brvva1789-70-37 10:14:00 Test Item Value Reference Range Interpretation Comments CD4/CD8 ratio (test code = 73659) 1.39 0.92-3.72 [facility] CenterT-suppressor cells (CD8) as percent of blood lymphocytes 2016-07-21 10:14:00 Test Item Value Reference Range Interpretation Comments T-suppressor cells (CD8) as percent of 31.0 % 12.0-35.5 blood lymphocytes (test code = 3517) [facility] Centerabsolute [id number] 10:14:00 Test Item Value Reference Range Interpretation Comments absolute CD8 (test code = 25718) 520 109-455 [facility] CenterT-helper cells (CD4) as percent of blood lymphocytes 2016-07-21 10:14:00 Test Item Value Reference Range Interpretation Comments T-helper cells (CD4) as percent of 43.2 % 30.8-58.5 blood lymphocytes (test code = 8123-2) [facility] HealthT-helper cells (CD4) [id number] 10:14:00 Test Item Value Reference Range Interpretation Comments T-helper cells (CD4) count (test code 691 /UL 359-1519 = 41053-9) [facility] Centerhepatitis A antibody, [id number] 12:15:41 Test Item Value Reference Range Interpretation Comments hepatitis A antibody, total (test Reactive code = 75) [facility] [id number] 12:14:34 Test Item Value Reference Range Interpretation Comments hepatitis B surface antibody Non-reactive (test code = 78) [facility] CenterT-helper cells (CD4) as percent of blood lymphocytes 2016-04-15 12:13:24 Test Item Value Reference Range Interpretation Comments T-helper cells (CD4) as percent of 42 % blood lymphocytes (test code = 8123-2) [facility] CenterHIV-1RNA, serum, by PCR, [id number] 12:13:09 Test Item Value Reference Range Interpretation Comments HIV-1RNA, serum, by PCR, quantitative <20 (test code = 41162) [facility] CenterT-[facility] cells (CD4) [id number] 12:12:46 Test Item Value Reference Range Interpretation Comments T-helper cells (CD4) count (test code 677 uL = 73197-2) [facility] Centertoxoplasma gondii antibody, [id number] 12:11:51 Test Item Value Reference Range Interpretation Comments toxoplasma gondii antibody, IgG (test <3 code = 2430) [facility] Centerrapid plasma reagin antibody, [id number] 12:11:28 Test Item Value Reference Range Interpretation Comments rapid plasma reagin antibody, serum 1:2 (test code = 308) [facility] PCR, [id number] 12:10:46 Test Item Value Reference Range Interpretation Comments Hepatitis C virus (HCV) RNA, Not-detected PCR, quantitative (test code = 94689) [facility] [id number] 12:10:17 Test Item Value Reference Range Interpretation Comments hepatitis C antibody, serum Non-reactive (test code = 2722) [facility] surface [id number] 12:09:48 Test Item Value Reference Range Interpretation Comments hepatitis B surface antigen (test reactive code = 79) [facility] Healthprotein, total, [id number] 12:08:51 Test Item Value Reference Range Interpretation Comments protein, total, serum (test code = 7.6 g/dL 36) [facility] Healthalbumin, [id number] 12:08:51 Test Item Value Reference Range Interpretation Comments albumin, serum (test code = 2) 4.0 g/dL [facility]bilirubin, serum, [id number] 12:08:50 Test Item Value Reference Range Interpretation Comments bilirubin, serum, total (test code 0.5 mg/dL = 43) [facility] Centeralanine aminotransferase (SGPT), [id number] 12:08:50 Test Item Value Reference Range Interpretation Comments alanine aminotransferase (SGPT), 103 1/L serum (test code = 40) [facility] Centeraspartate aminotransferase (SGOT), [id number] 12:08:50 Test Item Value Reference Range Interpretation Comments aspartate aminotransferase (SGOT), 54 1/L serum (test code = 39) [facility] Centererythrocyte (RBC) [id number] 12:07:48 Test Item Value Reference Range Interpretation Comments erythrocyte (RBC) count (test 5.26 10*6/mm3 code = 67) [facility] Healthplatelet [id number] 12:07:47 Test Item Value Reference Range Interpretation Comments platelet count (test code = 66) 228 10*3/mm3 [facility] Centerhematocrit, [id number] 12:07:47 Test Item Value Reference Range Interpretation Comments hematocrit, blood (test code = 64) 46.8 % [facility] Centerhemoglobin, [id number] 12:07:46 Test Item Value Reference Range Interpretation Comments hemoglobin, blood (test code = 65) 16.5 g/dL [facility] Centerleukocyte count, [id number] 12:07:46 Test Item Value Reference Range Interpretation Comments leukocyte count, blood (test 0.74 10*3/mm3 code = 68) [facility] Centertriglyceride, serum, [id number] 12:06:54 Test Item Value Reference Range Interpretation Comments triglyceride, serum, fasting (test 330 mg/dL code = 2571-8) [facility] CenterLDL cholesterol, [id number] 12:06:54 Test Item Value Reference Range Interpretation Comments LDL cholesterol, serum (test code = 88 mg/dL 2088-11) [facility] CenterHDL cholesterol, [id number] 12:06:54 Test Item Value Reference Range Interpretation Comments HDL cholesterol, serum (test code = 23 mg/dL 2085-07) [facility] Centercholesterol, [id number] 12:06:53 Test Item Value Reference Range Interpretation Comments cholesterol, serum (test code = 153 mg/dL 2092-) [facility] Centercreatinine, [id number] 12:06:25 Test Item Value Reference Range Interpretation Comments creatinine, serum (test code = 18) 0.9 mg/dL [facility] Centerurea nitrogen, [id number] 12:06:25 Test Item Value Reference Range Interpretation Comments urea nitrogen, blood (test code = 9) 10 mg/dL [facility] Centerpotassium, [id number] 12:06:25 Test Item Value Reference Range Interpretation Comments potassium, serum (test code = 35) 4.1 mmol/L [facility] Centersodium, [id number] 12:06:24 Test Item Value Reference Range Interpretation Comments sodium, serum (test code = 159) 142 mmol/L [facility] CenterHIV-1RNA, serum, by PCR, [id number] 15:52:58 Test Item Value Reference Range Interpretation Comments HIV-1RNA, serum, by PCR, quantitative 75 /mL (test code = 46589) [facility] CenterT-helper cells (CD4) [id number] 15:52:58 Test Item Value Reference Range Interpretation Comments T-helper cells (CD4) count (test code 783 uL = 54766-7) [facility]
--- NOTE | 2021-03-22 03:25 | ER ---
Nurse's Notes [facility] Name: Jaleel Olivas Age: 40 yrs Sex: Male : 1980 Arrival Date: 03/22/2021 Time: 00:47 Bed 27 Private MD: Diagnosis: Dental pain. Dental caries Presentation: 03/22 01:05 Chief complaint: Patient states: has a broken infected tooth on bottom left side, is iw having a lot of pain 10/10. Coronavirus screen: At this time, the client does not indicate any symptoms associated with coronavirus-19. Ebola Screen: Patient negative for fever greater than or equal to 101.5 degrees Fahrenheit, and additional compatible Ebola Virus Disease symptoms Patient denies exposure to infectious person. Patient denies travel to an Ebola-affected area in the 21 days before illness onset. No symptoms or risks identified at this time. Initial Sepsis Screen: Does the patient meet any 2 criteria? No. Patient's initial sepsis screen is negative. Does the patient have a suspected source of infection? No. Patient's initial sepsis screen is negative. Risk Assessment: Do you want to hurt yourself or someone else? Patient reports no desire to harm self or others. Onset of symptoms was March 18, 2021. 01:05 Method Of Arrival: Ambulatory iw 01:05 Acuity: LARRY 4 iw Historical: - Allergies: 01:07 Codeine (Hives); iw 01:07 Tape; iw - PMHx: 01:07 Diabetes - NIDDM; HIV; Hypertension; iw - PSHx: 01:07 Appendectomy; iw - Immunization history:: Adult Immunizations Client reports receiving the 2nd dose of the Covid vaccine. - Social history:: Smoking status: Patient denies any tobacco usage or history of. Vital Signs: 01:05 BP 162 / 110; Pulse 88; Resp 16; Temp 97.4; Pulse Ox 100% on R/A; Weight 68.04 kg; iw Height 5 ft. 6 in. (167.64 cm); Pain 10/10; 01:05 Body Mass Index 24.21 (68.04 kg, 167.64 cm) iw ED Course: 00:47 Patient arrived in ED. am4 01:07 Triage completed. iw 01:07 Arm band placed on. iw 02:36 Wily Bill MD is Attending Physician. pkl 03:14 Marilu Farley, RN is Primary Nurse. iw Administered Medications: 03:26 Drug: TORadol (ketorolac) 30 mg Route: IM; Site: left deltoid; iw 03:26 Drug: Clindamycin 300 mg Route: PO; iw Outcome: 03:25 Discharge ordered by . pkl 04:04 Patient left the ED. iw Signatures: Wily Bill MD MD pkl Marilu Farley, RN RN Alondra Crawley [place]
--- NOTE | 2021-03-22 03:26 | EDPHYS ---
Physician Documentation [facility] Name: Jaleel Olivas Age: 40 yrs Sex: Male : 1980 Arrival Date: 03/22/2021 Time: 00:47 Bed 27 Private MD: ED Physician Wily Bill HPI: 03/22 03:19 This 40 yrs old Male presents to ER via Ambulatory with complaints of pkl Toothache. 03:19 The patient presents with broken tooth/teeth, pain. Onset: The symptoms/episode pkl began/occurred 3 day(s) ago. The patient has experienced similar episodes in the past, several times. Historical: - Allergies: 01:07 Codeine (Hives); iw 01:07 Tape; iw - PMHx: 01:07 Diabetes - NIDDM; HIV; Hypertension; iw - PSHx: 01:07 Appendectomy; iw - Immunization history:: Adult Immunizations Client reports receiving the 2nd dose of the Covid vaccine. - Social history:: Smoking status: Patient denies any tobacco usage or history of. ROS: 03:19 Eyes: Negative for injury, pain, redness, and discharge. pkl 03:19 ENT: Positive for dental pain. 03:19 Neck: Negative for stiffness. 03:19 Cardiovascular: Negative for chest pain. 03:19 Respiratory: Negative for cough, shortness of breath. 03:19 Abdomen/GI: Negative for abdominal pain, nausea, vomiting, and diarrhea. 03:19 Back: Negative for acute changes. 03:19 : Negative for urinary symptoms. 03:19 MS/extremity: Negative for acute changes. 03:19 Skin: Negative for rash. 03:19 Neuro: Negative for altered mental status. Exam: 03:19 Head/Face: Normocephalic, atraumatic. pkl 03:19 Eyes: Exam is negative for acute changes. 03:19 ENT: Dental exam: dental caries, that is moderate, specifically in the lower left second molar (#18). 03:19 Neck: Exam negative for acute changes. 03:19 Chest/axilla: Exam negative for acute changes. 03:19 Cardiovascular: Rate: normal, Rhythm: regular. 03:19 Respiratory: the patient does not display signs of respiratory distress, Respirations: normal, Breath sounds: are clear throughout. 03:19 Abdomen/GI: Bowel sounds: normal, Palpation: abdomen is soft and non-tender, in all quadrants. 03:19 Back: Exam negative for acute changes. 03:19 : Exam negative for acute changes. 03:19 Musculoskeletal/extremity: Exam is negative for acute changes. 03:19 Skin: Exam negative for rash. 03:19 Neuro: Orientation: is normal, Mentation: is normal, Cranial nerves: grossly normal, Motor: is normal. Vital Signs: 01:05 BP 162 / 110; Pulse 88; Resp 16; Temp 97.4; Pulse Ox 100% on R/A; Weight 68.04 kg; iw Height 5 ft. 6 in. (167.64 cm); Pain 10/10; 01:05 Body Mass Index 24.21 (68.04 kg, 167.64 cm) iw MDM: 02:36 Patient medically screened. pkl 03:19 Data reviewed: vital signs, nurses notes. pkl Administered Medications: 03:26 Drug: TORadol (ketorolac) 30 mg Route: IM; Site: left deltoid; iw 03:26 Drug: Clindamycin 300 mg Route: PO; iw Disposition: 03/22/21 03:25 Discharged to Home. Impression: Dental pain. Dental caries. - Condition is Stable. - Prescriptions for Clindamycin HCl 300 mg Oral Capsule - take 1 capsule by ORAL route every 6 hours for 7 days; 28 capsule. - Medication Reconciliation Form, Thank You Letter, Antibiotic Education, Prescription Opioid Use form. - Follow up: Private Physician; When: 1 - 2 days; Reason: Re-evaluation by your physician. - Problem is new. - Symptoms are unchanged. Signatures: Wily Bill MD MD pkl Marilu Farley RN RN Corrections: (The following items were deleted from the chart) 04:04 03:25 03/22/2021 03:25 Discharged to Home. Impression: Dental pain. Dental caries. iw Condition is Stable. Forms are Medication Reconciliation Form, Thank You Letter, Antibiotic Education, Prescription Opioid Use. Follow up: Private Physician; When: 1 - 2 days; Reason: Re-evaluation by your physician. Problem is new. Symptoms are unchanged. pkl
[2021-03-22] MEDS ORDERED: KETOROLAC 30 MG/ML INJ ONE (03:37)
[2021-03-22 04:09] VITALS: BP 162/110; TEMP 97.4; O2SAT 100
== END 2021-03-22 04:04 | disposition home or self-care (01) ==
LOC: ER 00:44
DX: K02.9 Dental caries, unspecified (principal); E11.9 Type 2 diabetes mellitus without complications; I10 Essential (primary) hypertension
CPT/HCPCS: 96372; 99282

== ENCOUNTER 2021-06-08 15:34 | Emergency (ER) | payer BC ==
--- OUTSIDE RECORDS SUMMARY | 2021-06-08 15:41 | XMS REPORT | Continuity of Care Document ---
:1980 Author Organization [facility] t Address [address] [place] [address] Care Team Providers Name Role Phone [place] Attending Clinician Karie Attending Clinician [phone] Meño Attending Clinician Unavailable Cesar Attending Clinician [phone] Balbir Attending Clinician [phone] Vivienne Attending Clinician Unavailable Thomas Attending Clinician [phone] Lucina Attending Clinician Unavailable Wenceslao Attending Clinician Unavailable Shashank Attending Clinician [id number] Gina Attending Clinician [phone] Jack Attending Clinician Unavailable Karie Unavailable [phone] Cesar Unavailable [phone] Leatha Riggs Unavailable [phone] Problems Condition Condition Condition Status Onset Resolution Last Treating Co mments Source Name Details Category Date Date Treatment Clinician Date abscess, Condition Active 2019-04-26 Adair Tiwari perianal 04-26 16:07:35 Rupert Clark i 00:00: ty 00 Health Diabetes Condition Active 2017-12-21 Adair Tiwari mellitus, 6- 10:15:14 Rupert Barajas ni type II 00:00: ty 00 Health Hyperlipid Condition Active 2015-112017-07-20 Adair Tiwari emia 11-21 20:06:19 Rupert Garcia 00:00: ty 00 Health Preventive Condition Active 2015-112017-04-17 Adair Tiwari health 11-21 11:44:53 Rupert Garcia care 00:00: ty 00 Health ANXIETY Condition Active 2016-09-21 Samiuddin, [facility] DISORDER, 07-21 09:37:47 Dc Commu ni UNSPECIFIE 00:00: ty D 00 Health Hallucinat Condition Active 2016-09-21 Perrosy, [facility] ions 06-09 09:37:47 Dc Garcia 00:00: ty 00 Health HEPATITIS Condition Active 2017-04-17 Adair Tiwari B, CHRONIC 05-06 11:44:53 Rupert Comm uni 00:00: ty 00 Health PTSD Condition Active 2016-09-21 Karie L egacy 05-06 09:37:47 Rupert Garcia 00:00: ty 00 Health Hypertensi Condition Active 2017-12-21 Mya Tiwariacy on 10:15:14 Rupert Clarki ty Health HIV Condition Active 2017-12-21 Karie, No OI's, [facility] INFECTION 10:15:14 Rupert willie ~ Comm uni 259 ty Health History of Past Illness Condition Condition Condition Status Onset Resolution Last Treating Co mments Source Name Details Category Date Date Treatment Clinician Date Regular Condition Inactiv 2017-12-21 2017-12-21 Adair Tiwari astigmatis e 06-09 00:00:00 10:31:37 Rupert Villagomez mmuni m, 00:00: ty bilateral 00 Health Myopia - Condition Inactiv 2017-12-21 2017-12-21 Adair Tiwari OU e 06-09 00:00:00 10:31:37 Rupert Clark i 00:00: ty 00 Health Screening Condition Inactiv 2016-06-16 2016-06-09 Adair Riggs examinatio e 06-09 00:00:00 09:56:49 Casa Garcia n for 00:00: ty other 00 Health specified viral diseases SPECIAL Condition Inactiv 2011-112016-05-06 2016-05-06 Mya Tiwariacy SCREENING e 12-17 00:00:00 10:53:58 Rupert rosado EXAMINATIO 00:00: ty N OTH SPEC 00 Health VIRAL DZ MYOPIA Condition Inactiv 2011-112016-05-06 2016-05-06 Karie [facility] e 12-17 00:00:00 10:53:58 Rupert Calrk i 00:00: ty 00 Health ASTIGMATIS Condition Inactiv 2011-112016-05-06 2016-05-06 Adair Tiwari e 2-11 00:00:00 10:53:58 Rupert Commun i 00:00: ty 00 Health Allergies, Adverse Reactions, Alerts Allergy Allergy Status Severity Reaction(s) Onset Inactive Treating Comm ents Source Name Type Date Date Clinician CODEINE Drug Active Low rash 2011-11 [facility] allergy Criticali 2-11 Commun i (disorde ty 00:00: ty r) 00 Health Social History Social Habit Start Date Stop Date Quantity Comments Source albumin, serum 2019-11-02 2019-11-02 4.3 g/dL [facility] munity 11:10:00 11:10:00 Health drug use 2019-04-26 2019-04-26 Never [facility] ty 15:28:24 15:28:24 Health alcohol use 2019-04-26 2019-04-26 Currently Legacy [facility] ity 15:28:24 15:28:24 Health passive cigarette 2019-04-26 2019-04-26 No [facility] smoke exposure 15:28:24 15:28:24 Health social history 2019-04-26 2019-04-26 reviewed today [facility] reviewed E&M 15:28:24 15:28:24 Health social history E&M 2019-04-26 2019-04-26 Single. Not [facility] 15:28:24 15:28:24 homeless. Born Health in [facility]. City: [place]. State: [place]. Employed full-time. [employer] . Highest education level: some college. Sex at : Male. Sexual orientation: [place]. Gender identity: Male. Gender of partner(s): Male. Age of first sexual intercourse: 16. Sexually Active: No. driven sexual orientation 2019-04-26 2019-04-26 [place] [facility] 15:28:24 15:28:24 Health PHQ2 Questionairre 2019-04-26 2019-04-26 [facility] Score 15:28:24 15:28:24 Health assessment of health 2019-04-26 2019-04-26 Adequate [facility] literacy ([facility] 15:28:24 15:28:24 Healt 2014 Standards, 3C10) time of call 2019-04-25 2019-04-25 04/25/2019 11:55 [facility] 11:55:04 11:55:04 AM Health smoking, advice to 2017-04-17 2017-04-17 Yes [facility] quit 10:47:27 10:47:27 Health cigarettes, number 2016-09-21 2016-09-21 [facility] smoked per day 09:13:37 09:13:37 Health age when patient 2016-09-14 2016-09-14 [facility] began smoking 10:38:38 10:38:38 Health tobacco use 2016-09-14 2016-09-14 Currently [facility] (cigarettes, cigar, 10:38:38 10:38:38 Healt h chew, pipe) alcohol use, 2016-06-09 2016-06-09 few times per [facility] frequency 11:43:33 11:43:33 month Health home/family 2016-06-09 2016-06-09 LIves with [facility] situation, assessment 11:43:33 11:43:33 sister and his Health father and her 2 sons.Counts on them for work. family support 2016-06-09 2016-06-09 Grew up in a two [facility] 11:43:33 11:43:33 parent family Health with a younger sister. Father was a [employer] employee and mother worked as a postal employee mother of scleroderma. Occupation #1 2016-05-06 2016-05-06 [employer] [facility] Comm unity 09:53:46 09:53:46 Health alcohol use, number 2016-05-06 2016-05-06 9 drinks per [facility] maximum drinks per 09:53:46 09:53:46 month Health occasion smoking, year quit 2016-05-06 2016-05-06 [facility] 09:53:46 09:53:46 Health sex at 2016-05-06 2016-05-06 Male [facility] 09:53:46 09:53:46 Health patient considered to 2016-05-06 2016-05-06 No [facility] be homeless 09:53:46 09:53:46 Health Smoking Status Start Date Stop Date Source Ex-smoker (finding) 2019-04-26 15:28:24 2019-04-26 [facility] Health 15:28:24 Smokes tobacco daily 2017-04-17 10:47:27 [facility] (finding) Occasional tobacco smoker 2016-09-14 10:38:38 [place]a shine [facility] (finding) Never smoked tobacco [facility] (finding) Medications Ordered Filled Start Stop Current Ordering Indication Dosage Frequency Signature Comments Components Source Medication Medication Date Date Medication? Clinician (SIG) Name Name GELA 2018-11 Yes Rupert TAKE ONE [facility] (EMTRICITAB 1-27 [place] TABLET BY Communi -RILPIVIR-T 00:00: MOUTH ONCE ty ENOFOVIR) 00 DAILY WITH [facility] [phone] FOOD. MG TABS STORE IN ORIGINAL BOTTLE AT ROOM TEMPERATUR E. (LISINOPRIL Yes Rupert 1{Table 1xD TAKE 1 L egacy ) 20 MG 7-15 [place] t} TABLET BY Comm uni TABS 00:00: MOUTH ty 00 EVERY DAY Health ANTABUSE 2017-11 Yes Zishan 1 1xD 1 By Mouth L egacy 250 MG ORAL 2-20 Samiuddin Every Day Communi TABLET 00:00: ty 00 Health (METFORMIN Yes Rupert 1 by mouth L egacy HCL) 500 MG 6-12 [place] twice a Co mmuni TABS 00:00: day ty 00 Health (NICOTINE) 2015-11 Yes [facility] 21-14-7 1-25 Communi MG/24HR KIT 00:00: ty 00 Health LEXAPRO Yes Zishan 1 By Mouth Mala riojas (ESCITALOPR 9-15 Samiuddin Every Day Communi AM OXALATE) 00:00: ty 10 MG TABS 00 Health RISPERDAL 2018- No Robby 1 By Mouth L egacy (RISPERIDON 8 12-20 Masters at bedtime Communi E) 2 MG 00:00: 00:00 ty TABS 00 :00 Health MIRTAZAPINE 2011- 2018- No [facility] (MIRTAZAPIN 2-11 12-20 Communi E TABS) 00:00: 00:00 ty TABS 00 :00 Health Immunizations Ordered Immunization Filled Immunization Date Status Commen ts Source Name Name flu vax 2018-07-07 Completed [facility] ty 10:03:13 Health flu vax 2017-09-06 Completed [facility] ty 11:35:57 Health pneumovax 2017-07-20 Completed [facility] ty 12:39:39 Health flu vax 2016-09-21 Completed [facility] Communi ty 09:13:37 Health pneumped1 2016-05-06 Completed [facility] ty 09:53:46 Health Vital Signs Vital Name Observation Time Observation Value Comments Source temperature E&M 2019-04-26 15:28:24 98.1 [degF] [facility] blood pressure, 2019-04-26 15:28:24 98 mm[Hg] [facility] diastolic Health blood pressure, 2019-04-26 15:28:24 144 mm[Hg] [facility] systolic Health pulse rate 2019-04-26 15:28:24 112 /min [facility] Health oxygen saturation, 2019-04-26 15:28:24 98 [facility] weight E&M 2019-04-26 15:28:24 145 [lb_av] [facility] Health weight in kilograms 2019-04-26 15:28:24 65.91 kg [facility] E&M Health height in 2019-04-26 15:28:24 165.10 cm [facility] centimeters E&M Health temperature site 2019-04-26 15:28:24 oral [facility] blood pressure, 2018-12-24 09:50:41 99 mm[Hg] [facility] diastolic Health blood pressure, 2018-12-24 09:50:41 155 mm[Hg] [facility] systolic Health pulse rate 2018-12-24 09:50:41 91` /min [facility] Health weight E&M 2018-12-24 09:50:41 157 [lb_av] [facility] Health weight in kilograms 2018-12-24 09:50:41 71.36 kg [facility] E&M Health height in 2018-12-24 09:50:41 165.10 cm [facility]ity centimeters E&M Health blood pressure, 2018-12-21 09:56:09 86 mm[Hg] [facility] Community diastolic Health blood pressure, 2018-12-21 09:56:09 136 mm[Hg] [facility] systolic Health weight E&M 2018-12-21 09:56:09 153 [lb_av] [facility] Health weight in kilograms 2018-12-21 09:56:09 69.55 kg [facility] E& Health oxygen saturation, 2018-12-21 09:56:09 98 /min Mala [facility] oximetry Health respiratory rate E&M 2018-12-21 09:56:09 16 [facility] 2018-12-21 09:56:09 102 /min [facility] Health temperature E&M 2018-12-21 09:56:09 98.1 [degF] [facility] Health height in 2018-12-21 09:56:09 165.10 cm [facility] om[facility]ity centimeters E&M Health temperature site 2018-12-21 09:56:09 oral [facility] Health blood pressure, 2018-10-25 11:52:22 89 mm[Hg] [facility] diastolic Health blood pressure, 2018-10-25 11:52:22 166 mm[Hg] Leg[facility] systolic Health pulse rate 2018-10-25 11:52:22 83 /min [facility] Health weight E&M 2018-10-25 11:52:22 161 [lb_av] [facility] Health weight in kilograms 2018-10-25 11:52:22 73.18 kg [facility] E& Health height in 2018-10-25 11:52:22 165.10 cm [facility] om[facility] centimeters E&M Health blood pressure, 2017-12-21 10:04:46 90 mm[Hg] Leg[facility] diastolic Health blood pressure, 2017-12-21 10:04:46 139 mm[Hg] [facility] systolic Health respiratory rate E&M 2017-12-21 10:04:46 16 [facility] 2017-12-21 10:04:46 66 /min [facility] Health oxygen saturation, 2017-12-21 10:04:46 98 /min [facility] oximetry Health temperature E&M 2017-12-21 10:04:46 98.1 [degF] [facility] Health height in 2017-12-21 10:04:46 165.10 cm [facility] om[facility] centimeters E&M Health weight E&M 2017-12-21 10:04:46 161 [lb_av] [facility] Health weight in kilograms 2017-12-21 10:04:46 73.18 kg [facility] E& Health temperature site 2017-12-21 10:04:46 tympanic [facility] Health blood pressure, 2017-07-20 12:39:39 87 mm[Hg] [facility] diastolic Health blood pressure, 2017-07-20 12:39:39 138 mm[Hg] [facility] systolic Health pulse rate 2017-07-20 12:39:39 76 /min [facility] respiratory rate E&M 2017-07-20 12:39:39 16 /min [facility] oxygen saturation, 2017-07-20 12:39:39 97 /min [facility] oximetry Health temperature E&M 2017-07-20 12:39:39 98.7 [degF] [facility] Health weight E&M 2017-07-20 12:39:39 161.80 [lb_av] [facility] Health weight in kilograms 2017-07-20 12:39:39 73.55 kg [facility] E& Health height in 2017-07-20 12:39:39 165.10 cm [facility] centimeters E&M Health temperature site 2017-07-20 12:39:39 tympanic [facility] Health blood pressure, 2017-04-17 10:47:27 100 mm[Hg] Leg[facility] diastolic Health blood pressure, 2017-04-17 10:47:27 138 mm[Hg] [facility] systolic Health pulse rate 2017-04-17 10:47:27 103 /min [facility] Health respiratory rate E&M 2017-04-17 10:47:27 16 /min [facility] oxygen saturation, 2017-04-17 10:47:27 98 /min [facility] oximetry Health temperature E&M 2017-04-17 10:47:27 99.5 [degF] [facility] Health weight E&M 2017-04-17 10:47:27 151 [lb_av] [facility] weight in kilograms 2017-04-17 10:47:27 68.64 kg [facility] E& Health height in 2017-04-17 10:47:27 165.10 cm [facility] centimeters E&M Health temperature site 2017-04-17 10:47:27 tympanic [facility] Health blood pressure, 2016-10-20 10:15:15 88 mm[Hg] Leg[facility] diastolic Health blood pressure, 2016-10-20 10:15:15 135 mm[Hg] [facility] systolic Health pulse rate 2016-10-20 10:15:15 92 /min [facility] Health weight E&M 2016-10-20 10:15:15 175.13 [facility]av[facility] 2016-10-20 10:15:15 79.60 kg [facility] E& Health height in 2016-10-20 10:15:15 165.10 cm [facility] om[facility] centimeters E&M Health blood pressure, 2016-09-21 09:13:37 80 mm[Hg] Leg[facility] diastolic Health blood pressure, 2016-09-21 09:13:37 130 mm[Hg] [facility] systolic Health pulse rate 2016-09-21 09:13:37 85 /[facility], 2016-09-21 09:13:37 98 /min [facility] oximetry Health temperature E&M 2016-09-21 09:13:37 97.5 [degF] [facility] Health weight E&M 2016-09-21 09:13:37 175 [lb_av] [facility] in [facility] 2016-09-21 09:13:37 79.55 kg [facility] E& Health height in 2016-09-21 09:13:37 165.10 cm [facility] om[facility] centimeters E&M Health temperature site 2016-09-21 09:13:37 tympanic [facility] Health blood pressure, 2016-07-21 12:17:59 87 mm[Hg] Leg[facility] diastolic Health blood pressure, 2016-07-21 12:17:59 138 mm[Hg] [facility] systolic Health pulse rate 2016-07-21 12:17:59 96 /min [facility] Health weight E&M 2016-07-21 12:17:59 175.25 [lb_av] [facility] weight [facility] 2016-07-21 12:17:59 79.66 kg [facility] E&M Health height in 2016-07-21 12:17:59 165.10 cm [facility] ommunity centimeters E&M Health blood pressure, 2016-06-09 11:43:33 90 mm[Hg] Leg[facility] diastolic Health blood pressure, 2016-06-09 11:43:33 132 mm[Hg] Leg[facility] systolic Health pulse rate 2016-06-09 11:43:33 89 /min [facility] Health height in 2016-06-09 11:43:33 165.10 cm [facility] ommunity centimeters E&M Health blood pressure, 2016-05-06 09:53:46 84 mm[Hg] Leg[facility] diastolic Health blood pressure, 2016-05-06 09:53:46 132 mm[Hg] [facility] systolic Health pulse rate 2016-05-06 09:53:46 97 /min [facility] Health temperature E&M 2016-05-06 09:53:46 97.5 [degF] [facility] Health oxygen saturation, 2016-05-06 09:53:46 98 /min [facility] oximetry Health weight E&M 2016-05-06 09:53:46 181.60 [lb_av] [facility] weight in kilograms 2016-05-06 09:53:46 82.55 kg [facility] E& Health height in 2016-05-06 09:53:46 165.10 cm [facility] ommunity centimeters E&M Health temperature site 2016-05-06 09:53:46 tympanic [facility] Health Procedures Procedure Date / Time Performing Clinician Source Performed Spherocyl, SV, plano to +/- 2017-11-26 11:18:56 Carlos Verdugoie Adair [facility] 4.00d sphere, 0.12 to 2.00d Heal th cyl, per lens Frames, purchases 2017-11-26 11:18:34 Carlos Verdugoie Adair [facility] Health Est Patient Intermediate 2017-11-24 11:18:[address] [facility] [id number] [facility] Primary Care Medical Case 2017-02-23 17:27:29 Kasia Betancur [facility] Primary Care Medical Case 2017-02-16 17:56:43 Kasia Betancur [facility] Primary Care Medical Case 2017-02-13 18:42:43 Kasia Betancur [facility] Health Dispensing Visit (UNLIVSTED 2016-07-21 09:54:30 Shirley Encranacion [facility] OPHTHALMOLOGICAL Health SERVICE/PROCEDURE) Primary Care Medical Case 2016-07-05 19:13:18 Kasia Betancur [facility] Primary Care Medical Case 2016-07-04 17:24:31 RoyceKasia herrera [facility] Health Frames, purchases 2016-06-14 10:10:24 Shirley Encarnacion Co [facility]ity Health Spherocyl, SV, plano to +/- 2016-06-14 10:09:52 Shirley Encarnacion [facility] 4.00d sphere, 0.12 to 2.00d Heal th cyl, per lens Diagnostic evaluation with 2016-06-09 13:54:25 Dc Guerrero [facility] [id number] Health Est Patient Intermediate 2016-06-09 09:55:53 Casa Riggs [facility] [address] Health Est Patient Intermediate 2016-06-09 09:13:[address] [facility] [id number] [place] [address] Primary Care Medical Case 2016-05-19 16:23:45 PipeKasia [facility] Primary Care Medical Case 2016-05-18 18:11:23 PipeKasia [facility] Primary Care Medical Case 2016-05-17 17:22:38 Pipe Kasia Medeiros [facility] Primary Care Medical Case 2016-05-13 16:51:20 Pipe [facility] Primary Care Medical Case 2016-05-12 17:31:08 Pipe Kasia Le shine [facility] Health Behavioral Health - 2016-05-12 14:26:13 Kasia Betancur C ommunity Psychiatry Health Primary Care - Service 2016-05-06 13:01:29 Kasia Betancur y Community Planning Comprehensive Health Primary Care - 2016-05-06 13:01:29 [facility] Primary Care Medical Case 2016-05-06 13:01:29 Kasia Betancur ericakeya [facility] Management Health Behavioral Health - 2016-05-06 10:34:33 Rupert Tiwari ommunity Psychiatry Health Dispensing Visit (UNLIVSTED 2012-10-25 13:23:10 Shirley Encarnacion [facility] OPHTHALMOLOGICAL Health SERVICE/PROCEDURE) Frames, purchases 2012-10-16 16:24:53 Shirley Encarnacion Hi mmunity Health Spherocyl, SV, plano to +/- 2012-10-16 16:24:23 Shirley Encarnacion [facility] 4.00d sphere, 0.12 to 2.00d Heal th cyl, per lens Est Patient Intermediate 2012-10-16 16:00:28 Casa Riggs [facility] [address] [facility] New Patient Intermediate 2012-10-16 15:26:[address] [facility] [address] Health Encounters Start End Encounter Admission Attending Care Care Encounter Source Date/Time Date/Time Type Type Clinicians Facility Department ID 2021-05-24 2021-05-24 Office [facility] [id number] 09:45:39 10:15:39 Visit [facility] [id number] [facility] [id number] 2019-04-26 2019-04-26 Office Rupert Tiwari [facility] [id number] [id number] [facility] 00:00:00 00:00:00 Visit Derick Wilder [id number] formerly [facility] 2018-12-24 2018-12-24 Office Dc Guerrero [facility] [id number] [facility] 00:00:00 00:00:00 Visit Lizy Mcgregor [id number] formerly [facility] 2018-12-21 2018-12-21 Office Rupert Tiwari [facility] [id number] [facility] 00:00:00 00:00:00 Visit Caterina Palafox [id number] formerly [facility] 2018-10-25 2018-10-25 Office Dc Guerrero [facility] [id number] [facility] 00:00:00 00:00:00 Visit Lizy Mcgregor [id number] formerly [facility] 2017-12-21 2017-12-21 Office KarieRupert [facility] [id number] [id number] [facility] 00:00:00 00:00:00 Visit Caterina Palafox [id number] formerly [facility] 2017-11-24 2017-11-24 [facility] [id number] [facility] 00:00:00 00:00:00 Visit Ashlee Verdugo [id number] [facility] 2017-07-20 2017-07-20 [facility] 1533 [id number] [facility] 00:00:00 00:00:00 Visit Caterina Palafox [id number] formerly [facility] 2017-04-17 2017-04-17 Office KarieRupert [facility] 1533 [id number] [facility] 00:00:00 00:00:00 Visit Caterina Palafox [id number] formerly [facility] 2016-10-20 2016-10-20 Office MarcoDc woodall [facility] [id number] [facility] 00:00:00 00:00:00 Visit Kiel Billy [id number] [facility] 2016-09-21 2016-09-21 Office Rupert Tiwari [facility] [id number] [facility] 00:00:00 00:00:00 Visit Caterina Palafox [id number] formerly [facility] 2016-07-21 2016-07-21 Office MarcoDc woodall [facility] [id number] [facility] 00:00:00 00:00:00 Visit Kiel Billy [id number] [facility] 2016-06-09 2016-06-09 Office Nestor Guzman [facility] [id number] [facility] 00:00:00 00:00:00 Visit Shirley Encarnacion [id number] formerly [facility] 2016-05-06 2016-05-06 Office Rupert Tiwari [facility] [id number] [facility] 00:00:00 00:00:00 Visit [facility] Fu[facility] [address] [facility] Results Test Description Test Time Test Comments Results Result Comments Source Treponema pallidum antibodies, by particle agglutination 07-18-28 11:10:00 Test Item Value Reference Range Interpretation Comme nts Treponema pallidum antibodies, by particle agglutination Reactiv e Non Reactive A (test code = 31486-6) [facility] [id number] 11:10:00 Test Item Value Reference Range Interpretation Comments LDL cholesterol, serum (test code = 89 mg/dL 0-99 2088-1) [facility], [id number] 11:10:00 Test Item Value Reference Range Interpretation Comments HDL cholesterol, serum (test code = 29 mg/dL >39 L 2085-07) [facility], serum, [id number] 11:10:00 Test Item Value Reference Range Interpretation Comments triglyceride, serum, fasting (test 272 mg/dL 0-149 H code = 2571-8) [facility], [id number] 11:10:00 Test Item Value Reference Range Interpretation Comments cholesterol, serum (test code = 172 mg/dL 398-625 9521-3) [facility] cells (CD4) as percent of blood lymphocytes 2019-11-02 11:10:00 Test Item Value Reference Range Interpretation Comments T-helper cells (CD4) as percent of 37.8 % 30.8-58.5 blood lymphocytes (test code = 8123-2) [facility] (CD4) [id number] 11:10:00 Test Item Value Reference Range Interpretation Comments T-helper cells (CD4) count (test code 605 /UL [id number] = 59285-8) [facility] cells (CD8) as percent of blood lymphocytes 2019-11-02 11:10:00 Test Item Value Reference Range Interpretation Comments T-suppressor cells (CD8) as percent of 46.6 % 12.0-35.5 H blood lymphocytes (test code = 3517) [facility] [id number] 11:10:00 Test Item Value Reference Range Interpretation Comments absolute CD8 (test code = 897 (unknown unit) [phone]) [facility]id [facility] reagin antibody, [id number] 11:10:00 Test Item Value Reference Range Interpretation Comments rapid plasma reagin 1:2 See_Comment H [Automa stefany message] The antibody, serum (test system which generated code = 5291-0) this result t ransmitted reference range : NonRea<1:1. The reference range was not u sed to interpret this result as normal/abnormal . [facility] HospitalHIV-1RNA, serum, by PCR, luxoxcucpdnq0828-70-76 11:10:00 Test Item Value Reference Range Interpretation Comments HIV-1RNA, serum, by PCR, quantitative 500 /mL (test code = 90403) [facility] Hospitalvery low density [id number] 11:10:00 Test Item Value Reference Range Interpretation Comments very low density lipoproteins (test 54 mg/dL 5-40 H code = 2091-7) [facility] Hospitalalanine aminotransferase (SGPT), [id number] 11:10:00 Test Item Value Reference Range Interpretation Comments alanine aminotransferase (SGPT), serum 63 1/L 0-44 H (test code = 1742-6) [facility] Hospitalaspartate aminotransferase (SGOT), opakq7677-95-74 11:10:00 Test Item Value Reference Range Interpretation Comments aspartate aminotransferase (SGOT), 37 1/L 0-40 serum (test code = 1920-8) [facility] Hospitalalkaline phosphatase, [id number] 11:10:00 Test Item Value Reference Range Interpretation Comments alkaline phosphatase, serum (test code 80 1/L 39-117 = 1783-0) [facility] Hospitalbilirubin, serum, [id number] 11:10:00 Test Item Value Reference Range Interpretation Comments bilirubin, serum, total (test code 0.6 mg/dL 0.0-1.2 = 1975-2) [facility] Hospitalalbumin/globulin ratio, [id number] 11:10:00 Test Item Value Reference Range Interpretation Comments albumin/globulin ratio, 1.2 (unknown unit) 1.2-2.2 serum (test code = 1759-0) [facility] Hospitalglobulin, [id number] 11:10:00 Test Item Value Reference Range Interpretation Comments globulin, serum (test code 3.7 (unknown unit) 1.5-4.5 = 2336-6) [facility] Healthalbumin, [id number] 11:10:00 Test Item Value Reference Range Interpretation Comments albumin, serum (test code = 1751-7) 4.3 g/dL 3.5-5.5 [facility] Hospitalprotein, total, vqmoj0031-96-81 11:10:00 Test Item Value Reference Range Interpretation Comments protein, total, serum (test code = 8.0 g/dL 6.0-8.5 2885-2) [facility] Hospitalcalcium, [id number] 11:10:00 Test Item Value Reference Range Interpretation Comments calcium, serum (test code = 1999-8) 8.8 mg/dL 8.7-10.2 [facility] Hospitalcarbon dioxide, venous [id number] 11:10:00 Test Item Value Reference Range Interpretation Comments carbon dioxide, venous blood (test 20 mmol/L code = 7-1) [facility] Hospitalchloride, [id number] 11:10:00 Test Item Value Reference Range Interpretation Comments chloride, serum (test code = 100 mmol/L 96-106 5-0) [facility] Hospitalpotassium, sxkno7936-09-48 11:10:00 Test Item Value Reference Range Interpretation Comments potassium, serum (test code = 4.0 mmol/L 3.5-5.2 2823-3) [facility] Hospitalsodium, [id number] 11:10:00 Test Item Value Reference Range Interpretation Comments sodium, serum (test code = 2951-2) 134 mmol/L 134-144 [facility] Hospitalurea nitrogen/creatinine ratio, qoeet4617-64-41 11:10:00 Test Item Value Reference Range Interpretation Comments urea nitrogen/creatinine 12 (unknown unit) 9-20 ratio, serum (test code = 3097-3) [facility] HealtheGFR if Qeszidvp6912-56-68 11:10:00 Test Item Value Reference Range Interpretation Comments eGFR if 101 mL/min/{1.73 m2} >59 (test code = 99756-3) [facility] HospitalEstimated Glomerular Filtration Rate (calc)2019-11-02 11:10:00 Test Item Value Reference Range Interpretation Comments Estimated Glomerular 88 mL/min/{1.73 m2} >59 Filtration Rate (calc) (test code = 27471-2) [facility] Healthcreatinine, [id number] 11:10:00 Test Item Value Reference Range Interpretation Comments creatinine, serum (test code = 1.05 mg/dL 0.76-1.27 2160-0) [facility] Hospitalurea nitrogen, [id number] 11:10:00 Test Item Value Reference Range Interpretation Comments urea nitrogen, blood (test code = 13 mg/dL 6-24 3094-0) [facility] Hospitalblood glucose, zblmxj4067-82-27 11:10:00 Test Item Value Reference Range Interpretation Comments blood glucose, random (test code = 327 mg/dL 65-99 H 2339-0) [facility] Hospitalimmature granulocytes, percentage of total cells, blood 2019-11-02 11:10:00 Test Item Value Reference Range Interpretation Comments immature granulocytes, percentage of 0 % total cells, blood (test code = 14041-3) [facility] Hospitalbasophil count, ftdkkvdf8047-39-42 11:10:00 Test Item Value Reference Range Interpretation Comments basophil count, absolute (test 0.0 x10E3/uL 0.0-0.2 code = 10067-6) [facility] HospitalEosinophil Absolute Fyghq5324-80-17 11:10:00 Test Item Value Reference Range Interpretation Comments Eosinophil Absolute Count (test 0.1 X10E3/UL 0.0-0.4 code = 15834-4) [facility] Hospitalmonocyte count, blood, crgapevpo5626-19-22 11:10:00 Test Item Value Reference Range Interpretation Comments monocyte count, blood, automated 0.2 X10E3/UL 0.1-0.9 (test code = 742-7) [facility] Hospitallymphocyte count, blood, qisdlfanv8020-11-88 11:10:00 Test Item Value Reference Range Interpretation Comments lymphocyte count, blood, 1.6 X10E3/UL 0.7-3.1 automated (test code = 731-0) [facility] HospitalAbsolute Mvdfapcekgw2970-26-48 11:10:00 Test Item Value Reference Range Interpretation Comments Absolute Neutrophils (test code 3.9 X10E3/UL 1.4-7.0 = 73324-8) [facility] percent of blood fjrvvdmfuw4169-45-09 11:10:00 Test Item Value Reference Range Interpretation Comments basophils as percent of blood 0 % leukocytes (test code = 707-0) [facility] Healtheosinophils as percent of blood wvwcqecmzt1650-25-07 11:10:00 Test Item Value Reference Range Interpretation Comments eosinophils as percent of blood 2 % leukocytes (test code = 713-8) [facility] Healthmonocytes as percent of blood zhtfsjqnnu2686-45-47 11:10:00 Test Item Value Reference Range Interpretation Comments monocytes as percent of blood 4 % leukocytes (test code = 5905-5) [facility] Hospitallymphocytes as percent of blood gzjbeccacs2431-36-12 11:10:00 Test Item Value Reference Range Interpretation Comments lymphocytes as percent of blood 28 % leukocytes (test code = 736-9) [facility] Hospitalneutrophils as percent of blood efkljhuirk7902-56-13 11:10:00 Test Item Value Reference Range Interpretation Comments neutrophils as percent of blood 66 % leukocytes (test code = 770-8) [facility] Hospitalplatelet mypbu0940-00-77 11:10:00 Test Item Value Reference Range Interpretation Comments platelet count (test code = 177 X10E3/UL 150-450 777-3) [facility] Hospitalred blood cell distribution [id number] 11:10:00 Test Item Value Reference Range Interpretation Comments red blood cell distribution width 14.7 % 12.3-15.4 (test code = 788-0) [facility] corpuscular hemoglobin concentration, [id number] 11:10:00 Test Item Value Reference Range Interpretation Comments mean corpuscular hemoglobin 34.5 G/DL 31.5-35.7 concentration, RBC (test code = 786-4) [facility], [id number] 11:10:00 Test Item Value Reference Range Interpretation Comments mean corpuscular hemoglobin, RBC 29.3 pg 26.6-33.0 (test code = 785-6) [facility] corpuscular volume, [id number] 11:10:00 Test Item Value Reference Range Interpretation Comments mean corpuscular volume, RBC (test code 85 fL 79-97 = 787-2) [facility] Hospitalhematocrit, scxye5222-75-19 11:10:00 Test Item Value Reference Range Interpretation Comments hematocrit, blood (test code = 4544-3) 44.0 % 37.5-51.0 [facility] Hospitalhemoglobin, cjiwn4383-27-57 11:10:00 Test Item Value Reference Range Interpretation Comments hemoglobin, blood (test code = 15.2 g/dL 13.0-17.7 718-7) [facility] Hospitalerythrocyte (RBC) rzayr0891-28-43 11:10:00 Test Item Value Reference Range Interpretation Comments erythrocyte (RBC) count (test 5.19 X10E6/UL 4.14-5.80 code = 789-8) [facility] Hospitalleukocyte count, atpgh2276-82-35 11:10:00 Test Item Value Reference Range Interpretation Comments leukocyte count, blood (test 5.9 X10E3/UL 3.4-10.8 code = 6690-2) [facility] HospitalCD4/CD8 horpi9443-33-39 11:10:00 Test Item Value Reference Range Interpretation Comments CD4/CD8 ratio (test code 0.81 (unknown unit) 0.92-3.72 L = 68506) [facility] HospitalLDL cholesterol, [id number] 16:37:00 Test Item Value Reference Range Interpretation Comments LDL cholesterol, serum (test code = 62 mg/dL 0-99 2088-1) [facility] HospitalHDL cholesterol, [id number] 16:37:00 Test Item Value Reference Range Interpretation Comments HDL cholesterol, serum (test code = 27 mg/dL >39 L 5-9) [facility] Hospitaltriglyceride, serum, [id number] 16:37:00 Test Item Value Reference Range Interpretation Comments triglyceride, serum, fasting (test 331 mg/dL 0-149 H code = 2571-8) [facility] Hospitalcholesterol, wpakg2660-94-22 16:37:00 Test Item Value Reference Range Interpretation Comments cholesterol, serum (test code = 155 mg/dL 488-143 9212-3) [facility] Hospitalvery low density qamfcwqcpjrr3981-32-41 16:37:00 Test Item Value Reference Range Interpretation Comments very low density lipoproteins (test 66 mg/dL 5-40 H code = 2091-7) [facility] HospitalTreponema pallidum antibodies, by particle agglutination 2019-04-26 16:26:00 Test Item Value Reference Range Interpretation Comments Treponema pallidum antibodies, by Positive Negative A particle agglutination (test code = 02333-5) [facility] Hospitalhemoglobin A1C, blood, as % of total xvnlqpwgzu5668-96-86 16:26:00 Test Item Value Reference Range Interpretation Comments hemoglobin A1C, blood, as % of total 10.3 % 4.8-5.6 H hemoglobin (test code = 4548-4) [facility] HospitalT-helper cells (CD4) as percent of blood lymphocytes 2019-04-26 16:26:00 Test Item Value Reference Range Interpretation Comments T-helper cells (CD4) as percent of 44.1 % 30.8-58.5 blood lymphocytes (test code = 8123-2) [facility] HospitalT-helper cells (CD4) adzym9959-99-09 16:26:00 Test Item Value Reference Range Interpretation Comments T-helper cells (CD4) count (test code 573 /UL 359-3049 = 96055-2) [facility] Hospitalhepatitis C antibody, [id number] 16:26:00 Test Item Value Reference Range Interpretation Comments hepatitis C antibody, serum (test code <0.1 0.0-0.9 = 5199-5) [facility] Hospitalrapid plasma reagin antibody, [id number] 16:26:00 Test Item Value Reference Range Interpretation Comments rapid plasma reagin 1:1 See_Comment H [Automa stefany message] The antibody, serum (test system which generated code = 5291-0) this result t ransmitted reference range : NonRea<1:1. The reference range was not u sed to interpret this result as normal/abnormal . [facility] HospitalHIV-1RNA, serum, by PCR, sxewzrhxeloj6265-98-53 16:26:00 Test Item Value Reference Range Interpretation Comments HIV-1RNA, serum, by PCR, quantitative 30 /mL (test code = 89337) [facility] Phoenixtis B virus DNA, by Polymerase Chain Reaction 2019-04-26 16:26:00 Test Item Value Reference Range Interpretation Comments Hepatitis B virus DNA, HBV DNA not detected by Polymerase Chain Reaction (test code = 24244) [facility] Hospitalalanine aminotransferase (SGPT), rhgef5233-35-07 16:26:00 Test Item Value Reference Range Interpretation Comments alanine aminotransferase (SGPT), serum 47 1/L 0-44 H (test code = 1742-6) [facility] Hospitalaspartate aminotransferase (SGOT), abdmh4543-91-36 16:26:00 Test Item Value Reference Range Interpretation Comments aspartate aminotransferase (SGOT), 34 1/L 0-40 serum (test code = 1920-8) [facility] Hospitalalkaline phosphatase, fgekc3507-88-92 16:26:00 Test Item Value Reference Range Interpretation Comments alkaline phosphatase, serum (test 101 1/L 39-117 code = 1783-0) [facility] Hospitalbilirubin, serum, [id number] 16:26:00 Test Item Value Reference Range Interpretation Comments bilirubin, serum, total (test code 0.3 mg/dL 0.0-1.2 = 1975-2) [facility] Healthalbumin/globulin ratio, pnpwh8522-12-25 16:26:00 Test Item Value Reference Range Interpretation Comments albumin/globulin ratio, 1.6 (unknown unit) 1.2-2.2 serum (test code = 1759-0) [facility] Healthglobulin, wjfwm9427-36-04 16:26:00 Test Item Value Reference Range Interpretation Comments globulin, serum (test code 2.8 (unknown unit) 1.5-4.5 = 2336-6) [facility] Healthalbumin, [id number] 16:26:00 Test Item Value Reference Range Interpretation Comments albumin, serum (test code = 1751-7) 4.4 g/dL 3.5-5.5 [facility] Hospitalprotein, total, [id number] 16:26:00 Test Item Value Reference Range Interpretation Comments protein, total, serum (test code = 7.2 g/dL 6.0-8.5 2885-2) [facility] Hospitalcalcium, tudrx2932-31-09 16:26:00 Test Item Value Reference Range Interpretation Comments calcium, serum (test code = 2000-8) 8.9 mg/dL 8.7-10.2 [facility] Hospitalcarbon dioxide, venous [id number] 16:26:00 Test Item Value Reference Range Interpretation Comments carbon dioxide, venous blood (test 19 mmol/L 20-29 L code = 7-1) [facility] Healthchloride, [id number] 16:26:00 Test Item Value Reference Range Interpretation Comments chloride, serum (test code = 103 mmol/L 96-106 2075-0) [facility] Healthpotassium, leofe8411-01-70 16:26:00 Test Item Value Reference Range Interpretation Comments potassium, serum (test code = 4.5 mmol/L 3.5-5.2 2823-3) [facility] Hospitalsodium, [id number] 16:26:00 Test Item Value Reference Range Interpretation Comments sodium, serum (test code = 2951-2) 139 mmol/L 134-144 [facility] Hospitalurea nitrogen/creatinine ratio, wiqza4190-35-86 16:26:00 Test Item Value Reference Range Interpretation Comments urea nitrogen/creatinine 12 (unknown unit) 9-20 ratio, serum (test code = 3097-3) [facility] HealtheGFR if Ywmmzwdp8543-41-31 16:26:00 Test Item Value Reference Range Interpretation Comments eGFR if 123 mL/min/{1.73 m2} >59 (test code = 37795-4) [facility] HospitalEstimated Glomerular Filtration Rate (calc)2019-04-26 16:26:00 Test Item Value Reference Range Interpretation Comments Estimated Glomerular 106 mL/min/{1.73 m2} >59 Filtration Rate (calc) (test code = 36858-4) [facility] Hospitalcreatinine, dwdea6445-00-00 16:26:00 Test Item Value Reference Range Interpretation Comments creatinine, serum (test code = 0.90 mg/dL 0.76-1.27 2160-0) [facility] Hospitalurea nitrogen, acvin1155-75-82 16:26:00 Test Item Value Reference Range Interpretation Comments urea nitrogen, blood (test code = 11 mg/dL 6-24 3094-0) [facility] Hospitalblood glucose, iiuqnt0629-26-31 16:26:00 Test Item Value Reference Range Interpretation Comments blood glucose, random (test code = 325 mg/dL 65-99 H 2339-0) [facility] Hospitalimmature granulocytes, percentage of total cells, blood 2019-04-26 16:26:00 Test Item Value Reference Range Interpretation Comments immature granulocytes, percentage of 1 % total cells, blood (test code = 67340-5) [facility] Hospitalbasophil count, [id number] 16:26:00 Test Item Value Reference Range Interpretation Comments basophil count, absolute (test 0.0 x10E3/uL 0.0-0.2 code = 17521-4) [facility] HealthEosinophil Absolute Zrnpm2789-21-11 16:26:00 Test Item Value Reference Range Interpretation Comments Eosinophil Absolute Count (test 0.1 X10E3/UL 0.0-0.4 code = 01686-9) [facility] Hospitalmonocyte count, blood, fjxbstjsq2869-62-15 16:26:00 Test Item Value Reference Range Interpretation Comments monocyte count, blood, automated 0.5 X10E3/UL 0.1-0.9 (test code = 742-7) [facility] Hospitallymphocyte count, blood, usgztfnrn7330-44-35 16:26:00 Test Item Value Reference Range Interpretation Comments lymphocyte count, blood, 1.3 X10E3/UL 0.7-3.1 automated (test code = 731-0) [facility] HealthAbsolute Lvkqkbekbgh8689-17-92 16:26:00 Test Item Value Reference Range Interpretation Comments Absolute Neutrophils (test code 6.9 X10E3/UL 1.4-7.0 = 39233-9) [facility] Hospitalbasophils as percent of blood juvitpjzbx3667-82-91 16:26:00 Test Item Value Reference Range Interpretation Comments basophils as percent of blood 0 % leukocytes (test code = 707-0) [facility] Healtheosinophils as percent of blood ulsviwzqdz6216-60-71 16:26:00 Test Item Value Reference Range Interpretation Comments eosinophils as percent of blood 1 % leukocytes (test code = 713-8) [facility] Healthmonocytes as percent of blood sencttmvuk6162-66-73 16:26:00 Test Item Value Reference Range Interpretation Comments monocytes as percent of blood 5 % leukocytes (test code = 5905-5) [facility] Hospitallymphocytes as percent of blood cuinrhpcbb7547-07-67 16:26:00 Test Item Value Reference Range Interpretation Comments lymphocytes as percent of blood 15 % leukocytes (test code = 736-9) [facility] Hospitalneutrophils as percent of blood chfxoahloi2346-56-58 16:26:00 Test Item Value Reference Range Interpretation Comments neutrophils as percent of blood 78 % leukocytes (test code = 770-8) [facility] Hospitalplatelet qstyk4389-63-63 16:26:00 Test Item Value Reference Range Interpretation Comments platelet count (test code = 267 X10E3/UL 150-450 777-3) [facility] Hospitalred blood cell distribution skngb0087-27-77 16:26:00 Test Item Value Reference Range Interpretation Comments red blood cell distribution width 13.2 % 12.3-15.4 (test code = 788-0) [facility] corpuscular hemoglobin concentration, [id number] 16:26:00 Test Item Value Reference Range Interpretation Comments mean corpuscular hemoglobin 34.7 G/DL 31.5-35.7 concentration, RBC (test code = 786-4) [facility] corpuscular hemoglobin, [id number] 16:26:00 Test Item Value Reference Range Interpretation Comments mean corpuscular hemoglobin, RBC 30.6 pg 26.6-33.0 (test code = 785-6) [facility] corpuscular volume, [id number] 16:26:00 Test Item Value Reference Range Interpretation Comments mean corpuscular volume, RBC (test code 88 fL 79-97 = 787-2) [facility] Hospitalhematocrit, [id number] 16:26:00 Test Item Value Reference Range Interpretation Comments hematocrit, blood (test code = 4544-3) 48.7 % 37.5-51.0 [facility] Hospitalhemoglobin, [id number] 16:26:00 Test Item Value Reference Range Interpretation Comments hemoglobin, blood (test code = 16.9 g/dL 13.0-17.7 718-7) [facility] Hospitalerythrocyte (RBC) nzujz8400-48-85 16:26:00 Test Item Value Reference Range Interpretation Comments erythrocyte (RBC) count (test 5.52 X10E6/UL 4.14-5.80 code = 789-8) [facility] Hospitalleukocyte count, yfpvh1113-33-15 16:26:00 Test Item Value Reference Range Interpretation Comments leukocyte count, blood (test 8.9 X10E3/UL 3.4-10.8 code = 6690-2) [facility] HospitalCD4/CD8 agiob0945-10-08 16:26:00 Test Item Value Reference Range Interpretation Comments CD4/CD8 ratio (test code 1.45 (unknown unit) 0.92-3.72 = 07032) [facility] HospitalT-suppressor cells (CD8) as percent of blood lymphocytes 2019-04-26 16:26:00 Test Item Value Reference Range Interpretation Comments T-suppressor cells (CD8) as percent of 30.4 % 12.0-35.5 blood lymphocytes (test code = 3517) [facility] Hospitalabsolute [id number] 16:26:00 Test Item Value Reference Range Interpretation Comments absolute CD8 (test code = 395 (unknown unit) 109-611 20328) [facility] HospitalHIV-1 RNA (log 10)2018-10-25 10:41:00 Test Item Value Reference Range Interpretation Comments HIV-1 RNA (log 10) <1.30 DETECTED Log NOT DETECTED A (test code = 76860) copies/mL [facility] HospitalHIV-1RNA, serum, by PCR, psfuuhwdgueo8909-36-88 10:41:00 Test Item Value Reference Range Interpretation Comments HIV-1RNA, serum, by PCR, <20 DETECTED NOT DETECTED A quantitative (test code = copies/mL 52453) [facility] HospitalTreponema pallidum Ab, xpdni2660-35-24 10:40:00 Test Item Value Reference Range Interpretation Comments Treponema pallidum Ab, serum (test REACTIVE NON-REACTIVE A code = 89115-0) [facility] HospitalT-helper cells (CD4) uhjkd3985-35-02 10:40:00 Test Item Value Reference Range Interpretation Comments T-helper cells (CD4) count (test 663 CELLS/UL 490-1740 N code = 37668-7) [facility] HospitalT-helper cells (CD4) as percent of blood lymphocytes 2018-10-25 10:40:00 Test Item Value Reference Range Interpretation Comments T-helper cells (CD4) as percent of 44 % 30-61 N blood lymphocytes (test code = 8123-2) [facility] HospitalLDL cholesterol, mamwv0449-51-26 10:40:00 Test Item Value Reference Range Interpretation Comments LDL cholesterol, LDL cholesterol not serum (test code = calculated. Triglyceride 9-1) le... mg/dL (calc) [facility] Hospitaltriglyceride, serum, bqngead3634-20-24 10:40:00 Test Item Value Reference Range Interpretation Comments triglyceride, serum, fasting (test 407 mg/dL <150 H code = 2571-8) [facility] HospitalHDL cholesterol, fvvxl9559-84-71 10:40:00 Test Item Value Reference Range Interpretation Comments HDL cholesterol, serum (test code = 24 mg/dL >40 L 5-9) [facility] Hospitalcholesterol, qtacn0764-23-55 10:40:00 Test Item Value Reference Range Interpretation Comments cholesterol, serum (test code = 178 mg/dL <200 N 3-3) [facility] Hospitalrapid plasma reagin antibody, [id number] 10:40:00 Test Item Value Reference Range Interpretation Comments rapid plasma reagin antibody, serum REACTIVE NON-REACTIVE A (test code = 5291-0) [facility] Hospitalbasophils as percent of blood vhuralnham5929-81-17 10:40:00 Test Item Value Reference Range Interpretation Comments basophils as percent of blood 0.4 % N leukocytes (test code = 707-0) [facility] Hospitaleosinophils as percent of blood bbmtfokurp7338-54-25 10:40:00 Test Item Value Reference Range Interpretation Comments eosinophils as percent of blood 1.2 % N leukocytes (test code = 714-6) [facility] Healthmonocytes as percent of blood mhljrktzdw9114-69-60 10:40:00 Test Item Value Reference Range Interpretation Comments monocytes as percent of blood 4.2 % N leukocytes (test code = 5905-5) [facility] Hospitallymphocytes as percent of blood nglbjvxirk9882-42-68 10:40:00 Test Item Value Reference Range Interpretation Comments lymphocytes as percent of blood 18.9 % N leukocytes (test code = 736-9) [facility] Hospitalneutrophils as percent of blood idulwdsoft4847-49-55 10:40:00 Test Item Value Reference Range Interpretation Comments neutrophils as percent of blood 75.3 % N leukocytes (test code = 770-8) [facility] Hospitalbasophil count, xtvzsxzq0389-89-96 10:40:00 Test Item Value Reference Range Interpretation Comments basophil count, absolute (test 33 cells/uL 0-200 N code = 25625-5) [facility] HospitalAbsolute Eosinophil [id number] 10:40:00 Test Item Value Reference Range Interpretation Comments Absolute Eosinophil count (test 100 cells/mcL 15-500 N code = 12292-1) [facility] HospitalAbsolute Monocyte xjmmn4419-13-95 10:40:00 Test Item Value Reference Range Interpretation Comments Absolute Monocyte count (test 349 cells/mcL 200-950 N code = 82216-2) [facility]il [id number] 10:40:00 Test Item Value Reference Range Interpretation Comments Absolute Neutrophil count 6250 cells/mcL 8737-8249 N (test code = 75194-1) [facility] [id number] 10:40:00 Test Item Value Reference Range Interpretation Comments mean platelet volume (test code = 11.2 fL 7.5-12.5 N 776-5) [facility] [id number] 10:40:00 Test Item Value Reference Range Interpretation Comments platelet count (test code = 230 THOUSAND/UL 140-400 N 777-3) [facility]red [facility] cell distribution [id number] 10:40:00 Test Item Value Reference Range Interpretation Comments red blood cell distribution width 13.1 % 11.0-15.0 N (test code = 788-0) [facility] corpuscular hemoglobin concentration, [id number] 10:40:00 Test Item Value Reference Range Interpretation Comments mean corpuscular hemoglobin 35.4 G/DL 32.0-36.0 N concentration, RBC (test code = 786-4) [facility] corpuscular hemoglobin, [id number] 10:40:00 Test Item Value Reference Range Interpretation Comments mean corpuscular hemoglobin, RBC 31.2 pg 27.0-33.0 N (test code = 785-6) [facility] corpuscular volume, [id number] 10:40:00 Test Item Value Reference Range Interpretation Comments mean corpuscular volume, RBC (test 88.1 fL 80.0-100.0 N code = 787-2) [facility] Hospitalhematocrit, gsiwe9367-07-70 10:40:00 Test Item Value Reference Range Interpretation Comments hematocrit, blood (test code = 4544-3) 45.7 % 38.5-50.0 N [facility] Hospitalhemoglobin, [id number] 10:40:00 Test Item Value Reference Range Interpretation Comments hemoglobin, blood (test code = 16.2 g/dL 13.2-17.1 N 718-7) [facility] Hospitalerythrocyte (RBC) izmbp9867-78-07 10:40:00 Test Item Value Reference Range Interpretation Comments erythrocyte (RBC) count (test 5.19 MILLION/UL 4.20-5.80 N code = 789-8) [facility] Hospitalleukocyte count, [id number] 10:40:00 Test Item Value Reference Range Interpretation Comments leukocyte count, blood (test 8.3 THOUSAND/UL 3.8-10.8 N code = 6690-2) [facility] Hospitallymphocytes, tvrayeiy3310-34-81 10:40:00 Test Item Value Reference Range Interpretation Comments lymphocytes, absolute (test 1569 CELLS/UL 850-3900 N code = 51737-6) [facility] HospitalCD4/CD8 [id number] 10:40:00 Test Item Value Reference Range Interpretation Comments CD4/CD8 ratio (test code 1.52 (unknown unit) 0.86-5.00 N = 45074) [facility] Hospitalabsolute [id number] 10:40:00 Test Item Value Reference Range Interpretation Comments absolute CD8 (test code = 436 (unknown unit) 180-1170 N 03890) [facility] HospitalT-suppressor cells (CD8) as percent of blood lymphocytes 2018-10-25 10:40:00 Test Item Value Reference Range Interpretation Comments T-suppressor cells (CD8) as percent of 29 % 12-42 N blood lymphocytes (test code = 3517) [facility] Hospitalalanine aminotransferase (SGPT), ujgeg5229-97-53 10:40:00 Test Item Value Reference Range Interpretation Comments alanine aminotransferase (SGPT), serum 79 1/L 9-46 H (test code = 1742-6) [facility] Hospitalaspartate aminotransferase (SGOT), zryjy5849-35-43 10:40:00 Test Item Value Reference Range Interpretation Comments aspartate aminotransferase (SGOT), 51 1/L 10-40 H serum (test code = 1920-8) [facility] Hospitalalkaline phosphatase, [id number] 10:40:00 Test Item Value Reference Range Interpretation Comments alkaline phosphatase, serum (test code 87 1/L 40-115 N = 1783-0) [facility] Hospitalbilirubin, serum, [id number] 10:40:00 Test Item Value Reference Range Interpretation Comments bilirubin, serum, total (test code 0.7 mg/dL 0.2-1.2 N = 1975-2) [facility] Hospitalalbumin/globulin ratio, [id number] 10:40:00 Test Item Value Reference Range Interpretation Comments albumin/globulin ratio, serum 1.7 (calc) 1.0-2.5 N (test code = 1759-0) [facility] Hospitalglobulins, serum, [id number] 10:40:00 Test Item Value Reference Range Interpretation Comments globulins, serum, total (test 2.6 G/DL (CALC) 1.9-3.7 N code = 2336-6) [facility] Hospitalalbumin, [id number] 10:40:00 Test Item Value Reference Range Interpretation Comments albumin, serum (test code = 1751-7) 4.4 g/dL 3.6-5.1 N [facility] Hospitalprotein, total, [id number] 10:40:00 Test Item Value Reference Range Interpretation Comments protein, total, serum (test code = 7.0 g/dL 6.1-8.1 N 2885-2) [facility] Hospitalcalcium, [id number] 10:40:00 Test Item Value Reference Range Interpretation Comments calcium, serum (test code = 1999-8) 9.1 mg/dL 8.6-10.3 N [facility] Hospitalcarbon dioxide, venous [id number] 10:40:00 Test Item Value Reference Range Interpretation Comments carbon dioxide, venous blood (test 24 mmol/L 20-32 N code = 2026-1) [facility] Hospitalchloride, [id number] 10:40:00 Test Item Value Reference Range Interpretation Comments chloride, serum (test code = 105 mmol/L 98-110 N 2075-0) [facility] Healthpotassium, [id number] 10:40:00 Test Item Value Reference Range Interpretation Comments potassium, serum (test code = 3.9 mmol/L 3.5-5.3 N 2823-3) [facility] Hospitalsodium, [id number] 10:40:00 Test Item Value Reference Range Interpretation Comments sodium, serum (test code = 2951-2) 139 mmol/L 135-146 N [facility] Hospitalurea nitrogen/creatinine ratio, [id number] 10:40:00 Test Item Value Reference Range Interpretation Comments urea NOT APPLICABLE (calc) 6-22 nitrogen/creatinine ratio, serum (test code = 3097-3) [facility] HospitaleGFR if Zhogvdfr9215-37-93 10:40:00 Test Item Value Reference Range Interpretation Comments eGFR if 114 See_Comment N [Automated message] Trin[place]adian (test mL/min/{1.73 The system wh ich code = 00864-3) m2} generated th is result transmitted ref erence range: > OR = 6 0. The reference range was not used to int erpret this result as normal/abnormal . [facility] HospitalEstimated Glomerular Filtration Rate (calc)2018-10-25 10:40:00 Test Item Value Reference Range Interpretation Comments Estimated Glomerular 98 See_Comment N [Autom ated message] Filtration Rate mL/min/{1.73 [facility] ([facility]) (test code = m2} generate d this 54048-6) result transmit stefany reference range : > OR = 60. The reference range was not used to interpret this result as normal/abnormal . [facility] Hospitalcreatinine, [id number] 10:40:00 Test Item Value Reference Range Interpretation Comments creatinine, serum (test code = 0.96 mg/dL 0.60-1.35 N 2160-0) [facility] Hospitalurea nitrogen, [id number] 10:40:00 Test Item Value Reference Range Interpretation Comments urea nitrogen, blood (test code = 10 mg/dL 7-25 N 3094-0) [facility] Hospitalblood glucose, [id number] 10:40:00 Test Item Value Reference Range Interpretation Comments blood glucose, random (test code = 217 mg/dL 65-99 H 2339-0) [facility] Hospitalcholesterol, non-HDL, axjvs3652-14-98 10:40:00 Test Item Value Reference Range Interpretation Comments cholesterol, non-HDL, total 154 MG/DL (CALC) <130 H (test code = 43845) [facility] Hospitalcholesterol/HDL ratio, serum, [id number] 10:40:00 Test Item Value Reference Range Interpretation Comments cholesterol/HDL ratio, serum, 7.4 (calc) <5.0 H percent (test code = 2404) [facility] HospitalQuantiferon Gold TB blood test for tuberculosis screening 2018-05-22 09:03:00 Test Item Value Reference Range Interpretation Comments Quantiferon Gold TB blood test for Negative Negative tuberculosis screening (test code = 52551-8) [facility] HospitalHIV-1RNA, serum, by PCR, ymvgglmwwixp2122-59-27 08:46:00 Test Item Value Reference Range Interpretation Comments HIV-1RNA, serum, by PCR, <20 copies/mL quantitative (test code = 94012) [facility] HospitalTreponema pallidum antibodies, by particle agglutination 2018-05-21 08:44:00 Test Item Value Reference Range Interpretation Comments Treponema pallidum antibodies, by Positive Negative A particle agglutination (test code = 26277-7) [facility] Hospitalhemoglobin A1C, blood, as % of total zjoifmfsgs5229-93-35 08:44:00 Test Item Value Reference Range Interpretation Comments hemoglobin A1C, blood, as % of total 6.4 % 4.8-5.6 H hemoglobin (test code = 4548-4) [facility] HospitalLDL cholesterol, [id number] 08:44:00 Test Item Value Reference Range Interpretation Comments LDL cholesterol, serum (test TRIGHI mg/dL 0-99 code = 2089-1) [facility] HospitalHDL cholesterol, [id number] 08:44:00 Test Item Value Reference Range Interpretation Comments HDL cholesterol, serum (test code = 22 mg/dL >39 L 5-9) [facility] Hospitaltriglyceride, serum, [id number] 08:44:00 Test Item Value Reference Range Interpretation Comments triglyceride, serum, fasting (test 401 mg/dL 0-149 H code = 2571-8) [facility] Hospitalcholesterol, [id number] 08:44:00 Test Item Value Reference Range Interpretation Comments cholesterol, serum (test code = 159 mg/dL 871-594 5554-3) [facility] HospitalT-helper cells (CD4) as percent of blood lymphocytes 2018-05-21 08:44:00 Test Item Value Reference Range Interpretation Comments T-helper cells (CD4) as percent of 47.1 % 30.8-58.5 blood lymphocytes (test code = 8123-2) [facility] HospitalT-helper cells (CD4) [id number] 08:44:00 Test Item Value Reference Range Interpretation Comments T-helper cells (CD4) count (test 1130 /UL 359-1519 code = 15609-3) [facility] Hospitalrapid plasma reagin antibody, rginz0809-11-14 08:44:00 Test Item Value Reference Range Interpretation Comments rapid plasma reagin 1:2 See_Comment H [Automa stefany message] The antibody, serum (test system which generated code = 5291-0) this result t ransmitted reference range : NonRea<1:1. The reference range was not u sed to interpret this result as normal/abnormal . [facility] HospitalHepatitis B virus DNA, by Polymerase Chain Reaction 2018-05-21 08:44:00 Test Item Value Reference Range Interpretation Comments Hepatitis B virus DNA, HBV DNA not detected by Polymerase Chain Reaction (test code = 43458) [facility] Hospitalvery low density uhmhgfqolnrc5026-74-86 08:44:00 Test Item Value Reference Range Interpretation Comments very low density lipoproteins VLDLCH mg/dL 5-40 (test code = 2091-7) [facility] Hospitalalanine aminotransferase (SGPT), idhuj2613-70-85 08:44:00 Test Item Value Reference Range Interpretation Comments alanine aminotransferase (SGPT), 121 1/L 0-44 H serum (test code = 1742-6) [facility] Hospitalaspartate aminotransferase (SGOT), [id number] 08:44:00 Test Item Value Reference Range Interpretation Comments aspartate aminotransferase (SGOT), 41 1/L 0-40 H serum (test code = 1920-8) [facility]alk[facility], [id number] 08:44:00 Test Item Value Reference Range Interpretation Comments alkaline phosphatase, serum (test code 85 1/L 39-117 = 1783-0) [facility] Healthbilirubin, serum, [id number] 08:44:00 Test Item Value Reference Range Interpretation Comments bilirubin, serum, total (test code 0.3 mg/dL 0.0-1.2 = 1975-2) [facility] Healthalbumin/globulin ratio, mwjfe6400-08-04 08:44:00 Test Item Value Reference Range Interpretation Comments albumin/globulin ratio, 1.6 (unknown unit) 1.2-2.2 serum (test code = 1759-0) [facility] Healthglobulin, [id number] 08:44:00 Test Item Value Reference Range Interpretation Comments globulin, serum (test code 2.8 (unknown unit) 1.5-4.5 = 2336-6) [facility] Healthalbumin, uwgat5049-84-83 08:44:00 Test Item Value Reference Range Interpretation Comments albumin, serum (test code = 1751-7) 4.5 g/dL 3.5-5.5 [facility] Hospitalprotein, total, [id number] 08:44:00 Test Item Value Reference Range Interpretation Comments protein, total, serum (test code = 7.3 g/dL 6.0-8.5 2885-2) [facility] Hospitalcalcium, [id number] 08:44:00 Test Item Value Reference Range Interpretation Comments calcium, serum (test code = 1999-8) 9.3 mg/dL 8.7-10.2 [facility] Hospitalcarbon dioxide, venous jmqxd7832-23-18 08:44:00 Test Item Value Reference Range Interpretation Comments carbon dioxide, venous blood (test 21 mmol/L 20-29 code = 2026-1) [facility] Healthchloride, arsnz2640-49-31 08:44:00 Test Item Value Reference Range Interpretation Comments chloride, serum (test code = 102 mmol/L 96-106 5-0) [facility] Hospitalpotassium, [id number] 08:44:00 Test Item Value Reference Range Interpretation Comments potassium, serum (test code = 3.9 mmol/L 3.5-5.2 2823-3) [facility] Hospitalsodium, vwtue6376-05-11 08:44:00 Test Item Value Reference Range Interpretation Comments sodium, serum (test code = 2951-2) 141 mmol/L 134-144 [facility] Hospitalurea nitrogen/creatinine ratio, [id number] 08:44:00 Test Item Value Reference Range Interpretation Comments urea nitrogen/creatinine 11 (unknown unit) 9-20 ratio, serum (test code = 3097-3) [facility] HealtheGFR if Shhdaayo5826-15-35 08:44:00 Test Item Value Reference Range Interpretation Comments eGFR if 101 mL/min/{1.73 m2} >59 (test code = 41197-2) [facility] HospitalEstimated Glomerular Filtration Rate (calc)2018-05-21 08:44:00 Test Item Value Reference Range Interpretation Comments Estimated Glomerular 87 mL/min/{1.73 m2} >59 Filtration Rate (calc) (test code = 05140-8) [facility] Hospitalcreatinine, [id number] 08:44:00 Test Item Value Reference Range Interpretation Comments creatinine, serum (test code = 1.07 mg/dL 0.76-1.27 2160-0) [facility] Hospitalurea nitrogen, [id number] 08:44:00 Test Item Value Reference Range Interpretation Comments urea nitrogen, blood (test code = 12 mg/dL 6-20 3094-0) [facility] Hospitalblood glucose, biorlq1837-18-24 08:44:00 Test Item Value Reference Range Interpretation Comments blood glucose, random (test code = 315 mg/dL 65-99 H 2339-0) [facility] Hospitalimmature granulocytes, percentage of total cells, blood 2018-05-21 08:44:00 Test Item Value Reference Range Interpretation Comments immature granulocytes, percentage of 0 % total cells, blood (test code = 12983-2) [facility] Hospitalbasophil count, zpysgsrk9717-99-28 08:44:00 Test Item Value Reference Range Interpretation Comments basophil count, absolute (test 0.0 x10E3/uL 0.0-0.2 code = 22534-9) [facility] HospitalEosinophil Absolute [id number] 08:44:00 Test Item Value Reference Range Interpretation Comments Eosinophil Absolute Count (test 0.2 X10E3/UL 0.0-0.4 code = 87898-7) [facility] Healthmonocyte count, blood, zjagrohtp8305-78-53 08:44:00 Test Item Value Reference Range Interpretation Comments monocyte count, blood, automated 0.3 X10E3/UL 0.1-0.9 (test code = 742-7) [facility] Hospitallymphocyte count, blood, flhdgfgvw7038-70-50 08:44:00 Test Item Value Reference Range Interpretation Comments lymphocyte count, blood, 2.4 X10E3/UL 0.7-3.1 automated (test code = 731-0) [facility] HospitalAbsolute Uydloorealk2650-60-69 08:44:00 Test Item Value Reference Range Interpretation Comments Absolute Neutrophils (test code 7.3 X10E3/UL 1.4-7.0 H = 15887-0) [facility] Hospitalbasophils as percent of blood kjhqmsduey3369-94-58 08:44:00 Test Item Value Reference Range Interpretation Comments basophils as percent of blood 0 % leukocytes (test code = 707-0) [facility] Hospitaleosinophils as percent of blood mncuybufqe2910-45-99 08:44:00 Test Item Value Reference Range Interpretation Comments eosinophils as percent of blood 2 % leukocytes (test code = 713-8) [facility] Healthmonocytes as percent of blood tozgcobgtg7113-12-44 08:44:00 Test Item Value Reference Range Interpretation Comments monocytes as percent of blood 3 % leukocytes (test code = 5905-5) [facility] Hospitallymphocytes as percent of blood kwmcmddrmm4407-35-79 08:44:00 Test Item Value Reference Range Interpretation Comments lymphocytes as percent of blood 24 % leukocytes (test code = 736-9) [facility] Hospitalneutrophils as percent of blood fsuccpnepw8822-91-08 08:44:00 Test Item Value Reference Range Interpretation Comments neutrophils as percent of blood 71 % leukocytes (test code = 770-8) [facility] Hospitalplatelet vaohe3716-53-38 08:44:00 Test Item Value Reference Range Interpretation Comments platelet count (test code = 217 X10E3/UL 150-379 777-3) [facility] Hospitalred blood cell distribution esphr6159-08-52 08:44:00 Test Item Value Reference Range Interpretation Comments red blood cell distribution width 14.2 % 12.3-15.4 (test code = 788-0) [facility] Hospitalmean corpuscular hemoglobin concentration, [id number] 08:44:00 Test Item Value Reference Range Interpretation Comments mean corpuscular hemoglobin 34.6 G/DL 31.5-35.7 concentration, RBC (test code = 786-4) [facility] Hospitalmean corpuscular hemoglobin, [id number] 08:44:00 Test Item Value Reference Range Interpretation Comments mean corpuscular hemoglobin, RBC 32.6 pg 26.6-33.0 (test code = 785-6) [facility] corpuscular volume, [id number] 08:44:00 Test Item Value Reference Range Interpretation Comments mean corpuscular volume, RBC (test code 94 fL 79-97 = 787-2) [facility] Hospitalhematocrit, kkfma1462-24-55 08:44:00 Test Item Value Reference Range Interpretation Comments hematocrit, blood (test code = 4544-3) 47.4 % 37.5-51.0 [facility] Hospitalhemoglobin, [id number] 08:44:00 Test Item Value Reference Range Interpretation Comments hemoglobin, blood (test code = 16.4 g/dL 13.0-17.7 718-7) [facility] Hospitalerythrocyte (RBC) mohqs7858-21-93 08:44:00 Test Item Value Reference Range Interpretation Comments erythrocyte (RBC) count (test 5.03 X10E6/UL 4.14-5.80 code = 789-8) [facility] Hospitalleukocyte count, qqnon6933-92-00 08:44:00 Test Item Value Reference Range Interpretation Comments leukocyte count, blood (test 10.2 X10E3/UL 3.4-10.8 code = 6690-2) [facility] HospitalCD4/CD8 petew0746-01-66 08:44:00 Test Item Value Reference Range Interpretation Comments CD4/CD8 ratio (test code 1.64 (unknown unit) 0.92-3.72 = 28678) [facility] HospitalT-suppressor cells (CD8) as percent of blood lymphocytes 2018-05-21 08:44:00 Test Item Value Reference Range Interpretation Comments T-suppressor cells (CD8) as percent of 28.7 % 12.0-35.5 blood lymphocytes (test code = 3517) [facility] Hospitalabsolute [id number] 08:44:00 Test Item Value Reference Range Interpretation Comments absolute CD8 (test code = 689 (unknown unit) 016-832 20232) [facility] HospitalTreponema pallidum antibodies, by particle agglutination 2017-11-24 11:58:00 Test Item Value Reference Range Interpretation Comments Treponema pallidum antibodies, by Positive Negative A particle agglutination (test code = 69994-2) [facility] Hospitalhemoglobin A1C, blood, as % of total jfjnditddi4182-89-25 11:58:00 Test Item Value Reference Range Interpretation Comments hemoglobin A1C, blood, as % of total 6.2 % 4.8-5.6 H hemoglobin (test code = 4548-4) [facility] HospitalLDL cholesterol, jcglo8834-12-71 11:58:00 Test Item Value Reference Range Interpretation Comments LDL cholesterol, serum (test TRIGHI mg/dL 0-99 code = 2089-1) [facility] HospitalHDL cholesterol, snfcj0919-76-79 11:58:00 Test Item Value Reference Range Interpretation Comments HDL cholesterol, serum (test code = 22 mg/dL >39 L 5-9) [facility] Hospitaltriglyceride, serum, ftzbiuq8055-67-47 11:58:00 Test Item Value Reference Range Interpretation Comments triglyceride, serum, fasting (test 471 mg/dL 0-149 H code = 2571-8) [facility] Hospitalcholesterol, [id number] 11:58:00 Test Item Value Reference Range Interpretation Comments cholesterol, serum (test code = 159 mg/dL 232-527 2757-3) [facility] HospitalT-helper cells (CD4) as percent of blood lymphocytes 2017-11-24 11:58:00 Test Item Value Reference Range Interpretation Comments T-helper cells (CD4) as percent of 44.9 % 30.8-58.5 blood lymphocytes (test code = 8123-2) [facility] HospitalT-helper cells (CD4) fhmnu0016-19-53 11:58:00 Test Item Value Reference Range Interpretation Comments T-helper cells (CD4) count (test code 853 /UL 359-1519 = 42072-7) [facility] Hospitalhepatitis C antibody, [id number] 11:58:00 Test Item Value Reference Range Interpretation Comments hepatitis C antibody, 0.1 (unknown unit) 0.0-0.9 serum (test code = 5199-5) [facility] Hospitalrapid plasma reagin antibody, [id number] 11:58:00 Test Item Value Reference Range Interpretation Comments rapid plasma reagin 1:2 See_Comment H [Automa stefany message] The antibody, serum (test system which generated code = 5291-0) this result t ransmitted reference range : NonRea<1:1. The reference range was not u sed to interpret this result as normal/abnormal . [facility] HospitalHIV-1RNA, serum, by PCR, luofkaiyagcs4177-57-76 11:58:00 Test Item Value Reference Range Interpretation Comments HIV-1RNA, serum, by PCR, <20 copies/mL quantitative (test code = 05946) [facility] vwpbthzviyls0819-53-37 11:58:00 Test Item Value Reference Range Interpretation Comments very low density lipoproteins VLDLCH mg/dL 5-40 (test code = 2091-7) [facility] Hospitalalanine aminotransferase (SGPT), xvsja6444-33-21 11:58:00 Test Item Value Reference Range Interpretation Comments alanine aminotransferase (SGPT), serum 92 1/L 0-44 H (test code = 1742-6) [facility] Hospitalaspartate aminotransferase (SGOT), oldnf2569-68-53 11:58:00 Test Item Value Reference Range Interpretation Comments aspartate aminotransferase (SGOT), 49 1/L 0-40 H serum (test code = 1920-8) [facility] Hospitalalkaline phosphatase, uqaje7161-33-27 11:58:00 Test Item Value Reference Range Interpretation Comments alkaline phosphatase, serum (test code 79 1/L 39-117 = 1783-0) [facility] Hospitalbilirubin, serum, [id number] 11:58:00 Test Item Value Reference Range Interpretation Comments bilirubin, serum, total (test code 0.4 mg/dL 0.0-1.2 = 1975-2) [facility] Hospitalalbumin/globulin ratio, [id number] 11:58:00 Test Item Value Reference Range Interpretation Comments albumin/globulin ratio, 1.5 (unknown unit) 1.2-2.2 serum (test code = 1759-0) [facility] Healthglobulin, mtnpq6258-88-60 11:58:00 Test Item Value Reference Range Interpretation Comments globulin, serum (test code 3.1 (unknown unit) 1.5-4.5 = 2336-6) [facility] Healthalbumin, [id number] 11:58:00 Test Item Value Reference Range Interpretation Comments albumin, serum (test code = 1751-7) 4.6 g/dL 3.5-5.5 [facility] Healthprotein, total, [id number] 11:58:00 Test Item Value Reference Range Interpretation Comments protein, total, serum (test code = 7.7 g/dL 6.0-8.5 2885-2) [facility] Healthcalcium, fyjmf4054-10-20 11:58:00 Test Item Value Reference Range Interpretation Comments calcium, serum (test code = 2000-8) 9.6 mg/dL 8.7-10.2 [facility] Hospitalcarbon dioxide, venous dsyxu8024-88-14 11:58:00 Test Item Value Reference Range Interpretation Comments carbon dioxide, venous blood (test 27 mmol/L code = 2026-1) [facility] Healthchloride, duudo9671-69-98 11:58:00 Test Item Value Reference Range Interpretation Comments chloride, serum (test code = 100 mmol/L 96-106 5-0) [facility] Healthpotassium, pbkph5298-99-24 11:58:00 Test Item Value Reference Range Interpretation Comments potassium, serum (test code = 4.6 mmol/L 3.5-5.2 2823-3) [facility] Healthsodium, eohoq8889-94-06 11:58:00 Test Item Value Reference Range Interpretation Comments sodium, serum (test code = 2951-2) 143 mmol/L 134-144 [facility] Healthurea nitrogen/creatinine ratio, vpctx0826-08-00 11:58:00 Test Item Value Reference Range Interpretation Comments urea nitrogen/creatinine 12 (unknown unit) 9-20 ratio, serum (test code = 3097-3) [facility] HealtheGFR if Qupvledm1938-33-65 11:58:00 Test Item Value Reference Range Interpretation Comments eGFR if 99 mL/min/{1.73 m2} >59 (test code = 62409-6) [facility]Estim[facility] Glomer[facility] Filtration Rate (calc)2017-11-24 11:58:00 Test Item Value Reference Range Interpretation Comments Estimated Glomerular 86 mL/min/{1.73 m2} >59 Filtration Rate (calc) (test code = 34236-4) [facility] Hospitalcreatinine, xrjim7587-17-78 11:58:00 Test Item Value Reference Range Interpretation Comments creatinine, serum (test code = 1.08 mg/dL 0.76-1.27 2160-0) [facility] Hospitalurea nitrogen, zbqxk8416-69-18 11:58:00 Test Item Value Reference Range Interpretation Comments urea nitrogen, blood (test code = 13 mg/dL 6-20 3094-0) [facility] Hospitalblood glucose, fkrrnq7429-97-89 11:58:00 Test Item Value Reference Range Interpretation Comments blood glucose, random (test code = 178 mg/dL 65-99 H 2339-0) [facility] Hospitalimmature granulocytes, percentage of total cells, blood 2017-11-24 11:58:00 Test Item Value Reference Range Interpretation Comments immature granulocytes, percentage of 1 % total cells, blood (test code = 65446-0) [facility] Hospitalbasophil count, gwktihln9377-13-48 11:58:00 Test Item Value Reference Range Interpretation Comments basophil count, absolute (test 0.0 x10E3/uL 0.0-0.2 code = 49276-8) [facility] HospitalEosinophil Absolute Hgkff3700-94-90 11:58:00 Test Item Value Reference Range Interpretation Comments Eosinophil Absolute Count (test 0.1 X10E3/UL 0.0-0.4 code = 40168-5) [facility] Hospitalmonocyte count, blood, smusndffc0982-18-72 11:58:00 Test Item Value Reference Range Interpretation Comments monocyte count, blood, automated 0.3 X10E3/UL 0.1-0.9 (test code = 742-7) [facility] Hospitallymphocyte count, blood, xjyssswty0369-27-75 11:58:00 Test Item Value Reference Range Interpretation Comments lymphocyte count, blood, 1.9 X10E3/UL 0.7-3.1 automated (test code = 731-0) [facility] HospitalAbsolute Dprmthusqxt7857-35-73 11:58:00 Test Item Value Reference Range Interpretation Comments Absolute Neutrophils (test code 4.7 X10E3/UL 1.4-7.0 = 54849-2) [facility] Hospitalbasophils as percent of blood ctmrrflrbc7925-01-55 11:58:00 Test Item Value Reference Range Interpretation Comments basophils as percent of blood 0 % leukocytes (test code = 707-0) [facility] Healtheosinophils as percent of blood lyxbtiwavk3639-29-79 11:58:00 Test Item Value Reference Range Interpretation Comments eosinophils as percent of blood 2 % leukocytes (test code = 713-8) [facility] Healthmonocytes as percent of blood vhsliqceqx5337-10-73 11:58:00 Test Item Value Reference Range Interpretation Comments monocytes as percent of blood 4 % leukocytes (test code = 5905-5) [facility] Hospitallymphocytes as percent of blood orzyepzvag3821-08-36 11:58:00 Test Item Value Reference Range Interpretation Comments lymphocytes as percent of blood 26 % leukocytes (test code = 736-9) [facility] Hospitalneutrophils as percent of blood buuncuhbev4290-27-43 11:58:00 Test Item Value Reference Range Interpretation Comments neutrophils as percent of blood 67 % leukocytes (test code = 770-8) [facility] Hospitalplatelet yyjdj6632-27-26 11:58:00 Test Item Value Reference Range Interpretation Comments platelet count (test code = 247 X10E3/UL 150-379 777-3) [facility] Hospitalred blood cell distribution spjph0151-86-25 11:58:00 Test Item Value Reference Range Interpretation Comments red blood cell distribution width 13.7 % 12.3-15.4 (test code = 788-0) [facility], OAX2768-09-32 11:58:00 Test Item Value Reference Range Interpretation Comments mean corpuscular hemoglobin 34.8 G/DL 31.5-35.7 concentration, RBC (test code = 786-4) [facility] hemoglobin, WXE2703-37-62 11:58:00 Test Item Value Reference Range Interpretation Comments mean corpuscular hemoglobin, RBC 31.4 pg 26.6-33.0 (test code = 785-6) [facility] Hospitalmean corpuscular volume, YNZ2643-03-66 11:58:00 Test Item Value Reference Range Interpretation Comments mean corpuscular volume, RBC (test code 90 fL 79-97 = 787-2) [facility] Hospitalhematocrit, mqwek0032-10-97 11:58:00 Test Item Value Reference Range Interpretation Comments hematocrit, blood (test code = 4544-3) 47.7 % 37.5-51.0 [facility] Hospitalhemoglobin, suwpw9425-76-59 11:58:00 Test Item Value Reference Range Interpretation Comments hemoglobin, blood (test code = 16.6 g/dL 13.0-17.7 718-7) [facility] Hospitalerythrocyte (RBC) ivvwc3731-22-91 11:58:00 Test Item Value Reference Range Interpretation Comments erythrocyte (RBC) count (test 5.29 X10E6/UL 4.14-5.80 code = 789-8) [facility] Hospitalleukocyte count, wrhqq0165-25-32 11:58:00 Test Item Value Reference Range Interpretation Comments leukocyte count, blood (test 7.1 X10E3/UL 3.4-10.8 code = 6690-2) [facility] HospitalCD4/CD8 xakto8872-70-97 11:58:00 Test Item Value Reference Range Interpretation Comments CD4/CD8 ratio (test code 1.39 (unknown unit) 0.92-3.72 = 18708) [facility] HospitalT-suppressor cells (CD8) as percent of blood lymphocytes 2017-11-24 11:58:00 Test Item Value Reference Range Interpretation Comments T-suppressor cells (CD8) as percent of 32.4 % 12.0-35.5 blood lymphocytes (test code = 3517) [facility] Hospitalabsolute [id number] 11:58:00 Test Item Value Reference Range Interpretation Comments absolute CD8 (test code = 616 (unknown unit) [phone]) [facility] HospitalTreponema pallidum antibodies, by particle agglutination 2017-06-16 09:37:00 Test Item Value Reference Range Interpretation Comments Treponema pallidum antibodies, by Positive Negative A particle agglutination (test code = 14230-5) [facility] Hospitalhemoglobin A1C, blood, as % of total ljcesycidp9312-20-05 09:37:00 Test Item Value Reference Range Interpretation Comments hemoglobin A1C, blood, as % of total 6.8 % 4.8-5.6 H hemoglobin (test code = 4548-4) [facility] HospitalLDL cholesterol, fullq6585-93-15 09:37:00 Test Item Value Reference Range Interpretation Comments LDL cholesterol, serum (test code = 68 mg/dL 0-99 2088-1) [facility] HospitalHDL cholesterol, nxhdv1849-64-85 09:37:00 Test Item Value Reference Range Interpretation Comments HDL cholesterol, serum (test code = 25 mg/dL >39 L 2084-9) [facility] Hospitaltriglyceride, serum, pubacht8834-36-12 09:37:00 Test Item Value Reference Range Interpretation Comments triglyceride, serum, fasting (test 390 mg/dL 0-149 H code = 2571-8) [facility] Hospitalcholesterol, pzxce2811-36-26 09:37:00 Test Item Value Reference Range Interpretation Comments cholesterol, serum (test code = 171 mg/dL 789-387 5499-3) [facility] HospitalT-helper cells (CD4) as percent of blood lymphocytes 2017-06-16 09:37:00 Test Item Value Reference Range Interpretation Comments T-helper cells (CD4) as percent of 41.9 % 30.8-58.5 blood lymphocytes (test code = 8123-2) [facility] HospitalT-helper cells (CD4) yzrwn4689-02-03 09:37:00 Test Item Value Reference Range Interpretation Comments T-helper cells (CD4) count (test code 880 /UL 359-1519 = 41101-1) [facility] Hospitalrapid plasma reagin antibody, iuxxz9203-35-43 09:37:00 Test Item Value Reference Range Interpretation Comments rapid plasma reagin 1:4 See_Comment H [Automa stefany message] The antibody, serum (test system which generated code = 5291-0) this result t ransmitted reference range : NonRea<1:1. The reference range was not u sed to interpret this result as normal/abnormal . [facility]HIV-1RNA, serum, by PCR, iwvnydedsjjj7258-52-20 09:37:00 Test Item Value Reference Range Interpretation Comments HIV-1RNA, serum, by PCR, quantitative 40 /mL (test code = 78206) [facility] Hospitalvery low density mwhlmhgjkocu0806-09-15 09:37:00 Test Item Value Reference Range Interpretation Comments very low density lipoproteins (test 78 mg/dL 5-40 H code = 2091-7) [facility] Hospitalalanine aminotransferase (SGPT), rrxnk3344-90-53 09:37:00 Test Item Value Reference Range Interpretation Comments alanine aminotransferase (SGPT), serum 77 1/L 0-44 H (test code = 1742-6) [facility] Hospitalaspartate aminotransferase (SGOT), szqqv0699-01-43 09:37:00 Test Item Value Reference Range Interpretation Comments aspartate aminotransferase (SGOT), 46 1/L 0-40 H serum (test code = 1920-8) [facility] Hospitalalkaline phosphatase, dtkle9308-11-86 09:37:00 Test Item Value Reference Range Interpretation Comments alkaline phosphatase, serum (test code 89 1/L 39-117 = 1783-0) [facility] Hospitalbilirubin, serum, hpjus3128-03-36 09:37:00 Test Item Value Reference Range Interpretation Comments bilirubin, serum, total (test code 0.4 mg/dL 0.0-1.2 = 1975-2) [facility] Hospitalalbumin/globulin ratio, qqgoj0894-64-06 09:37:00 Test Item Value Reference Range Interpretation Comments albumin/globulin ratio, 1.7 (unknown unit) 1.2-2.2 serum (test code = 1759-0) [facility] Healthglobulin, pfixc3183-57-86 09:37:00 Test Item Value Reference Range Interpretation Comments globulin, serum (test code 2.6 (unknown unit) 1.5-4.5 = 2336-6) [facility] Hospitalalbumin, jmdiw4581-83-06 09:37:00 Test Item Value Reference Range Interpretation Comments albumin, serum (test code = 1751-7) 4.4 g/dL 3.5-5.5 [facility] Hospitalprotein, total, ctyez0265-64-12 09:37:00 Test Item Value Reference Range Interpretation Comments protein, total, serum (test code = 7.0 g/dL 6.0-8.5 2885-2) [facility] Hospitalcalcium, fqqbq0173-76-51 09:37:00 Test Item Value Reference Range Interpretation Comments calcium, serum (test code = 1999-8) 9.3 mg/dL 8.7-10.2 [facility] Hospitalcarbon dioxide, venous bdchv5896-91-44 09:37:00 Test Item Value Reference Range Interpretation Comments carbon dioxide, venous blood (test 25 mmol/L 18-29 code = 7-1) [facility] Hospitalchloride, gxvfm8459-89-24 09:37:00 Test Item Value Reference Range Interpretation Comments chloride, serum (test code = 102 mmol/L 96-106 5-0) [facility] Hospitalpotassium, manlw2160-54-82 09:37:00 Test Item Value Reference Range Interpretation Comments potassium, serum (test code = 4.6 mmol/L 3.5-5.2 2823-3) [facility] Hospitalsodium, cwipy0079-56-21 09:37:00 Test Item Value Reference Range Interpretation Comments sodium, serum (test code = 2951-2) 142 mmol/L 134-144 [facility] Hospitalurea nitrogen/creatinine ratio, egpff6875-36-78 09:37:00 Test Item Value Reference Range Interpretation Comments urea nitrogen/creatinine 9 (unknown unit) 9-20 ratio, serum (test code = 3097-3) [facility] HealtheGFR if Hrlunmqb1283-55-10 09:37:00 Test Item Value Reference Range Interpretation Comments eGFR if 127 mL/min/{1.73 m2} >59 (test code = 22997-9) [facility] HospitalEstimated Glomerular Filtration Rate (calc)2017-06-16 09:37:00 Test Item Value Reference Range Interpretation Comments Estimated Glomerular 110 mL/min/{1.73 m2} >59 Filtration Rate (calc) (test code = 35793-4) [facility] Hospitalcreatinine, vlwhs1837-17-74 09:37:00 Test Item Value Reference Range Interpretation Comments creatinine, serum (test code = 0.86 mg/dL 0.76-1.27 0-0) [facility] Hospitalurea nitrogen, yfxii9789-86-39 09:37:00 Test Item Value Reference Range Interpretation Comments urea nitrogen, blood (test code = 8 mg/dL 6-20 3094-0) [facility] Hospitalblood glucose, oozayt5568-56-17 09:37:00 Test Item Value Reference Range Interpretation Comments blood glucose, random (test code = 236 mg/dL 65-99 H 2339-0) [facility] Hospitalimmature granulocytes, percentage of total cells, blood 2017-06-16 09:37:00 Test Item Value Reference Range Interpretation Comments immature granulocytes, percentage of 0 % total cells, blood (test code = 78167-5) [facility] Hospitalbasophil count, wnibrffu0623-45-83 09:37:00 Test Item Value Reference Range Interpretation Comments basophil count, absolute (test 0.0 x10E3/uL 0.0-0.2 code = 39336-3) [facility] HospitalEosinophil Absolute Njmmv7390-17-31 09:37:00 Test Item Value Reference Range Interpretation Comments Eosinophil Absolute Count (test 0.2 X10E3/UL 0.0-0.4 code = 01458-6) [facility] Hospitalmonocyte count, blood, ouwrxazve2901-78-17 09:37:00 Test Item Value Reference Range Interpretation Comments monocyte count, blood, automated 0.3 X10E3/UL 0.1-0.9 (test code = 742-7) [facility] Hospitallymphocyte count, blood, mplmiieew5848-72-74 09:37:00 Test Item Value Reference Range Interpretation Comments lymphocyte count, blood, 2.1 X10E3/UL 0.7-3.1 automated (test code = 731-0) [facility] HospitalAbsolute Raetdrtpdzn7431-15-37 09:37:00 Test Item Value Reference Range Interpretation Comments Absolute Neutrophils (test code 5.2 X10E3/UL 1.4-7.0 = 58523-4) [facility] Hospitalbasophils as percent of blood wzpvlulyry2916-50-89 09:37:00 Test Item Value Reference Range Interpretation Comments basophils as percent of blood 1 % leukocytes (test code = 707-0) [facility] Hospitaleosinophils as percent of blood gfafjxveiu5083-72-66 09:37:00 Test Item Value Reference Range Interpretation Comments eosinophils as percent of blood 2 % leukocytes (test code = 713-8) [facility] Hospitalmonocytes as percent of blood hketfaqdig8632-87-64 09:37:00 Test Item Value Reference Range Interpretation Comments monocytes as percent of blood 4 % leukocytes (test code = 5905-5) [facility] Hospitallymphocytes as percent of blood krqyvcanbi2475-46-45 09:37:00 Test Item Value Reference Range Interpretation Comments lymphocytes as percent of blood 26 % leukocytes (test code = 736-9) [facility] Hospitalneutrophils as percent of blood kcdvjnlisd5117-27-22 09:37:00 Test Item Value Reference Range Interpretation Comments neutrophils as percent of blood 67 % leukocytes (test code = 770-8) [facility] Hospitalplatelet jxigd4201-33-02 09:37:00 Test Item Value Reference Range Interpretation Comments platelet count (test code = 239 X10E3/UL 150-379 777-3) [facility] Hospitalred blood cell distribution hliqs3806-21-91 09:37:00 Test Item Value Reference Range Interpretation Comments red blood cell distribution width 13.0 % 12.3-15.4 (test code = 788-0) [facility] corpuscular hemoglobin concentration, [id number] 09:37:00 Test Item Value Reference Range Interpretation Comments mean corpuscular hemoglobin 35.0 G/DL 31.5-35.7 concentration, RBC (test code = 786-4) [facility] corpuscular hemoglobin, [id number] 09:37:00 Test Item Value Reference Range Interpretation Comments mean corpuscular hemoglobin, RBC 31.1 pg 26.6-33.0 (test code = 785-6) [facility] corpuscular volume, [id number] 09:37:00 Test Item Value Reference Range Interpretation Comments mean corpuscular volume, RBC (test code 89 fL 79-97 = 787-2) [facility] Hospitalhematocrit, rydoi3925-89-73 09:37:00 Test Item Value Reference Range Interpretation Comments hematocrit, blood (test code = 4544-3) 46.9 % 37.5-51.0 [facility] Hospitalhemoglobin, jpokp2818-96-47 09:37:00 Test Item Value Reference Range Interpretation Comments hemoglobin, blood (test code = 16.4 g/dL 12.6-17.7 718-7) [facility] Hospitalerythrocyte (RBC) lxbqm2062-66-05 09:37:00 Test Item Value Reference Range Interpretation Comments erythrocyte (RBC) count (test 5.27 X10E6/UL 4.14-5.80 code = 789-8) [facility] Hospitalleukocyte count, bvbae6803-46-52 09:37:00 Test Item Value Reference Range Interpretation Comments leukocyte count, blood (test 7.8 X10E3/UL 3.4-10.8 code = 6690-2) [facility] HospitalCD4/CD8 smugr2686-01-24 09:37:00 Test Item Value Reference Range Interpretation Comments CD4/CD8 ratio (test code 1.20 (unknown unit) 0.92-3.72 = 99324) [facility] HospitalT-suppressor cells (CD8) as percent of blood lymphocytes 2017-06-16 09:37:00 Test Item Value Reference Range Interpretation Comments T-suppressor cells (CD8) as percent of 34.8 % 12.0-35.5 blood lymphocytes (test code = 3517) [facility] Hospitalabsolute [id number] 09:37:00 Test Item Value Reference Range Interpretation Comments absolute CD8 (test code = 731 (unknown unit) [phone]) [facility] HospitalNeisseria gonorrhoeae DNA wtofm2637-00-48 09:48:00 Test Item Value Reference Range Interpretation Comments Neisseria gonorrhoeae DNA probe Negative Negative (test code = 36202-4) [facility] Hospitalchlamydia DNA yipwo9873-80-79 09:48:00 Test Item Value Reference Range Interpretation Comments chlamydia DNA probe (test code = Negative Negative 93123-6) [facility] HospitalTreponema pallidum antibodies, by particle agglutination 2017-01-18 09:31:00 Test Item Value Reference Range Interpretation Comments Treponema pallidum antibodies, by Positive Negative A particle agglutination (test code = 24961-9) [facility] HospitalLDL cholesterol, jnaob6688-52-56 09:31:00 Test Item Value Reference Range Interpretation Comments LDL cholesterol, serum (test TRIGHI mg/dL 0-99 code = 2089-1) [facility] HospitalHDL cholesterol, awovv7267-52-79 09:31:00 Test Item Value Reference Range Interpretation Comments HDL cholesterol, serum (test code = 17 mg/dL >39 L 2085-9) [facility] Hospitaltriglyceride, serum, dejhenv2936-31-26 09:31:00 Test Item Value Reference Range Interpretation Comments triglyceride, serum, fasting (test 559 mg/dL 0-149 HH code = 2571-8) [facility] Hospitalcholesterol, ebqat4604-52-70 09:31:00 Test Item Value Reference Range Interpretation Comments cholesterol, serum (test code = 174 mg/dL 556-587 2007-3) [facility] HospitalT-helper cells (CD4) as percent of blood lymphocytes 2017-01-18 09:31:00 Test Item Value Reference Range Interpretation Comments T-helper cells (CD4) as percent of 45.9 % 30.8-58.5 blood lymphocytes (test code = 8123-2) [facility] HospitalT-helper cells (CD4) uevdm6746-01-23 09:31:00 Test Item Value Reference Range Interpretation Comments T-helper cells (CD4) count (test code 734 /UL 359-1519 = 09492-9) [facility] Hospitalrapid plasma reagin antibody, mgdsm9911-36-69 09:31:00 Test Item Value Reference Range Interpretation Comments rapid plasma reagin 1:4 See_Comment H [[employer] stefany message] The antibody, serum (test system which generated code = 5291-0) this result t ransmitted reference range : NonRea<1:1. The reference range was not u sed to interpret this result as normal/abnormal . [facility] HospitalHIV-1RNA, serum, by PCR, vfsoxipvswls4011-37-24 09:31:00 Test Item Value Reference Range Interpretation Comments HIV-1RNA, serum, by PCR, <20 copies/mL quantitative (test code = 49527) [facility] HospitalHepatitis B virus DNA, by Polymerase Chain Reaction 2017-01-18 09:31:00 Test Item Value Reference Range Interpretation Comments Hepatitis B virus DNA, by Polymerase <10 Chain Reaction (test code = 35290) [facility] Hospitalver low density ardruluryeeo4142-97-55 09:31:00 Test Item Value Reference Range Interpretation Comments very low density lipoproteins VLDLCH mg/dL 5-40 (test code = 2091-7) [facility] Hospitalalanine aminotransferase (SGPT), irrss5375-19-92 09:31:00 Test Item Value Reference Range Interpretation Comments alanine aminotransferase (SGPT), serum 90 1/L 0-44 H (test code = 1742-6) [facility] Hospitalaspartate aminotransferase (SGOT), qqqcn4221-25-46 09:31:00 Test Item Value Reference Range Interpretation Comments aspartate aminotransferase (SGOT), 66 1/L 0-40 H serum (test code = 1920-8) [facility] Hospitalalkaline phosphatase, hwinn7070-11-92 09:31:00 Test Item Value Reference Range Interpretation Comments alkaline phosphatase, serum (test 104 1/L 39-117 code = 1783-0) [facility] Hospitalbilirubin, serum, xgjsu4980-76-27 09:31:00 Test Item Value Reference Range Interpretation Comments bilirubin, serum, total (test code 0.4 mg/dL 0.0-1.2 = 1975-2) [facility] Hospitalalbumin/globulin ratio, wwdbi4679-93-99 09:31:00 Test Item Value Reference Range Interpretation Comments albumin/globulin ratio, 1.3 (unknown unit) 1.2-2.2 serum (test code = 1759-0) [facility] Healthglobulin, uqtwk4227-78-22 09:31:00 Test Item Value Reference Range Interpretation Comments globulin, serum (test code 3.0 (unknown unit) 1.5-4.5 = 2336-6) [facility] Healthalbumin, pqefz9731-30-66 09:31:00 Test Item Value Reference Range Interpretation Comments albumin, serum (test code = 1751-7) 4.0 g/dL 3.5-5.5 [facility] Hospitalprotein, total, mwuoy7187-15-85 09:31:00 Test Item Value Reference Range Interpretation Comments protein, total, serum (test code = 7.0 g/dL 6.0-8.5 2885-2) [facility] Hospitalcalcium, [id number] 09:31:00 Test Item Value Reference Range Interpretation Comments calcium, serum (test code = 2000-8) 9.0 mg/dL 8.7-10.2 [facility] Hospitalcarbon dioxide, venous mtagp7318-29-32 09:31:00 Test Item Value Reference Range Interpretation Comments carbon dioxide, venous blood (test 22 mmol/L 18-29 code = 2027-1) [facility] Healthchloride, xlmso3871-03-38 09:31:00 Test Item Value Reference Range Interpretation Comments chloride, serum (test code = 100 mmol/L 96-106 2075-0) [facility] Healthpotassium, nwxik3053-13-01 09:31:00 Test Item Value Reference Range Interpretation Comments potassium, serum (test code = 4.3 mmol/L 3.5-5.2 2823-3) [facility] Hospitalsodium, iomkt2345-52-50 09:31:00 Test Item Value Reference Range Interpretation Comments sodium, serum (test code = 2951-2) 139 mmol/L 134-144 [facility] Hospitalurea nitrogen/creatinine ratio, yujgg5373-03-05 09:31:00 Test Item Value Reference Range Interpretation Comments urea nitrogen/creatinine 8 (unknown unit) 8-19 ratio, serum (test code = 3097-3) [facility] HealtheGFR if Wxccolel3569-70-29 09:31:00 Test Item Value Reference Range Interpretation Comments eGFR if 107 mL/min/{1.73 m2} >59 (test code = 18324-4) [facility] HospitalEstimated Glomerular Filtration Rate (calc)2017-01-18 09:31:00 Test Item Value Reference Range Interpretation Comments Estimated Glomerular 93 mL/min/{1.73 m2} >59 Filtration Rate (calc) (test code = 91880-6) [facility] Hospitalcreatinine, dlxkm1347-25-64 09:31:00 Test Item Value Reference Range Interpretation Comments creatinine, serum (test code = 1.02 mg/dL 0.76-1.27 2160-0) [facility] Hospitalurea nitrogen, vkcso1478-82-56 09:31:00 Test Item Value Reference Range Interpretation Comments urea nitrogen, blood (test code = 8 mg/dL 6-20 3094-0) [facility] Hospitalblood glucose, jdzmbl2790-65-77 09:31:00 Test Item Value Reference Range Interpretation Comments blood glucose, random (test code = 313 mg/dL 65-99 H 2339-0) [facility] Hospitalimmature granulocytes, percentage of total cells, blood 2017-01-18 09:31:00 Test Item Value Reference Range Interpretation Comments immature granulocytes, percentage of 0 % total cells, blood (test code = 16103-4) [facility], [id number] 09:31:00 Test Item Value Reference Range Interpretation Comments basophil count, absolute (test 0.0 x10E3/uL 0.0-0.2 code = 52118-1) [facility] HealthEosinophil Absolute [id number] 09:31:00 Test Item Value Reference Range Interpretation Comments Eosinophil Absolute Count (test 0.3 X10E3/UL 0.0-0.4 code = 30569-8) [facility] Healthmonocyte count, blood, [id number] 09:31:00 Test Item Value Reference Range Interpretation Comments monocyte count, blood, automated 0.4 X10E3/UL 0.1-0.9 (test code = 742-7) [facility]allymph[facility], blood, gsnjszlnf7528-78-19 09:31:00 Test Item Value Reference Range Interpretation Comments lymphocyte count, blood, 1.6 X10E3/UL 0.7-3.1 automated (test code = 731-0) [facility] HealthAbsolute Eabpbqbtnws9312-58-16 09:31:00 Test Item Value Reference Range Interpretation Comments Absolute Neutrophils (test code 5.9 X10E3/UL 1.4-7.0 = 35194-2) [facility]basophils as percent of blood avgqrnxyyk7105-05-35 09:31:00 Test Item Value Reference Range Interpretation Comments basophils as percent of blood 0 % leukocytes (test code = 707-0) [facility] Healtheosinophils as percent of blood jlmqqiowty3827-28-57 09:31:00 Test Item Value Reference Range Interpretation Comments eosinophils as percent of blood 3 % leukocytes (test code = 713-8) [facility] Healthmonocytes as percent of blood ouqkyuurla3995-41-00 09:31:00 Test Item Value Reference Range Interpretation Comments monocytes as percent of blood 5 % leukocytes (test code = 5905-5) [facility]allymphocytes as percent of blood hojxnmscat9854-91-53 09:31:00 Test Item Value Reference Range Interpretation Comments lymphocytes as percent of blood 19 % leukocytes (test code = 736-9) [facility] Hospitalneutrophils as percent of blood njflrlrwly1838-07-05 09:31:00 Test Item Value Reference Range Interpretation Comments neutrophils as percent of blood 73 % leukocytes (test code = 770-8) [facility] Hospitalplatelet [id number] 09:31:00 Test Item Value Reference Range Interpretation Comments platelet count (test code = 192 X10E3/UL 150-379 777-3) [facility] Hospitalred blood cell distribution hbhne0447-65-74 09:31:00 Test Item Value Reference Range Interpretation Comments red blood cell distribution width 13.7 % 12.3-15.4 (test code = 788-0) [facility], [id number] 09:31:00 Test Item Value Reference Range Interpretation Comments mean corpuscular hemoglobin 34.7 G/DL 31.5-35.7 concentration, RBC (test code = 786-4) [facility] corpuscular hemoglobin, [id number] 09:31:00 Test Item Value Reference Range Interpretation Comments mean corpuscular hemoglobin, RBC 32.0 pg 26.6-33.0 (test code = 785-6) [facility] corpuscular volume, [id number] 09:31:00 Test Item Value Reference Range Interpretation Comments mean corpuscular volume, RBC (test code 92 fL 79-97 = 787-2) [facility] Hospitalhematocrit, [id number] 09:31:00 Test Item Value Reference Range Interpretation Comments hematocrit, blood (test code = 4544-3) 48.1 % 37.5-51.0 [facility] Hospitalhemoglobin, gimdr6840-72-51 09:31:00 Test Item Value Reference Range Interpretation Comments hemoglobin, blood (test code = 16.7 g/dL 12.6-17.7 718-7) [facility] Hospitalerythrocyte (RBC) plzos8989-96-85 09:31:00 Test Item Value Reference Range Interpretation Comments erythrocyte (RBC) count (test 5.22 X10E6/UL 4.14-5.80 code = 789-8) [facility] Hospitalleukocyte count, ftvcy6225-83-08 09:31:00 Test Item Value Reference Range Interpretation Comments leukocyte count, blood (test 8.3 X10E3/UL 3.4-10.8 code = 6690-2) [facility] HospitalCD4/CD8 ldrci3475-73-73 09:31:00 Test Item Value Reference Range Interpretation Comments CD4/CD8 ratio (test code 1.43 (unknown unit) 0.92-3.72 = 21161) [facility] HospitalT-suppressor cells (CD8) as percent of blood lymphocytes 2017-01-18 09:31:00 Test Item Value Reference Range Interpretation Comments T-suppressor cells (CD8) as percent of 32.0 % 12.0-35.5 blood lymphocytes (test code = 3517) [facility] Hospitalabsolute [id number] 09:31:00 Test Item Value Reference Range Interpretation Comments absolute CD8 (test code = 512 (unknown unit) 959-337 14850) [facility] HospitalTreponema pallidum antibodies, by particle agglutination 2016-07-21 10:14:00 Test Item Value Reference Range Interpretation Comments Treponema pallidum antibodies, by Positive Negative A particle agglutination (test code = 38344-2) [facility] HospitalLDL cholesterol, [id number] 10:14:00 Test Item Value Reference Range Interpretation Comments LDL cholesterol, serum (test TRIGHI mg/dL 0-99 code = 2089-1) [facility] HospitalHDL cholesterol, qknha0533-18-51 10:14:00 Test Item Value Reference Range Interpretation Comments HDL cholesterol, serum (test code = 19 mg/dL >39 L 5-9) [facility] Hospitaltriglyceride, serum, txuomjg8146-27-02 10:14:00 Test Item Value Reference Range Interpretation Comments triglyceride, serum, fasting (test 452 mg/dL 0-149 H code = 2571-8) [facility] Hospitalcholesterol, rixtz8752-74-77 10:14:00 Test Item Value Reference Range Interpretation Comments cholesterol, serum (test code = 144 mg/dL 977-712 7104-3) [facility] HospitalT-helper cells (CD4) as percent of blood lymphocytes 2016-07-21 10:14:00 Test Item Value Reference Range Interpretation Comments T-helper cells (CD4) as percent of 43.2 % 30.8-58.5 blood lymphocytes (test code = 8123-2) [facility] HospitalT-helper cells (CD4) qtllv2459-45-91 10:14:00 Test Item Value Reference Range Interpretation Comments T-helper cells (CD4) count (test code 691 /UL 359-1519 = 72451-9) [facility] HospitalQuantiferon Gold TB blood test for tuberculosis screening 2016-07-21 10:14:00 Test Item Value Reference Range Interpretation Comments Quantiferon Gold TB blood test for Negative Negative tuberculosis screening (test code = 11668-1) [facility] Hospitalrapid plasma reagin antibody, [id number] 10:14:00 Test Item Value Reference Range Interpretation Comments rapid plasma reagin 1:2 See_Comment H [Automa stefany message] The antibody, serum (test system which generated code = 5291-0) this result t ransmitted reference range : NonRea<1:1. The reference range was not u sed to interpret this result as normal/abnormal . [facility] HospitalHIV-1RNA, serum, by PCR, [id number] 10:14:00 Test Item Value Reference Range Interpretation Comments HIV-1RNA, serum, by PCR, <20 copies/mL quantitative (test code = 74443) [facility] low density jxorbnszouua0063-34-42 10:14:00 Test Item Value Reference Range Interpretation Comments very low density lipoproteins VLDLCH mg/dL 5-40 (test code = 2091-7) [facility] Hospitalalanine aminotransferase (SGPT), [id number] 10:14:00 Test Item Value Reference Range Interpretation Comments alanine aminotransferase (SGPT), 128 1/L 0-44 H serum (test code = 1742-6) [facility] Hospitalaspartate aminotransferase (SGOT), zzijo3588-69-70 10:14:00 Test Item Value Reference Range Interpretation Comments aspartate aminotransferase (SGOT), 65 1/L 0-40 H serum (test code = 1920-8) [facility] Hospitalalkaline phosphatase, pswtg4319-93-27 10:14:00 Test Item Value Reference Range Interpretation Comments alkaline phosphatase, serum (test 115 1/L 39-117 code = 1783-0) [facility] Hospitalbilirubin, serum, [id number] 10:14:00 Test Item Value Reference Range Interpretation Comments bilirubin, serum, total (test code 0.6 mg/dL 0.0-1.2 = 1975-2) [facility] Healthalbumin/globulin ratio, dyrlq1034-16-36 10:14:00 Test Item Value Reference Range Interpretation Comments albumin/globulin ratio, 1.5 (unknown unit) 1.1-2.5 serum (test code = 1759-0) [facility] Healthglobulin, [id number] 10:14:00 Test Item Value Reference Range Interpretation Comments globulin, serum (test code 2.8 (unknown unit) 1.5-4.5 = 2336-6) [facility] Healthalbumin, [id number] 10:14:00 Test Item Value Reference Range Interpretation Comments albumin, serum (test code = 1751-7) 4.2 g/dL 3.5-5.5 [facility] Healthprotein, total, [id number] 10:14:00 Test Item Value Reference Range Interpretation Comments protein, total, serum (test code = 7.0 g/dL 6.0-8.5 2885-2) [facility] Healthcalcium, wbzoz8919-15-50 10:14:00 Test Item Value Reference Range Interpretation Comments calcium, serum (test code = 1999-8) 8.8 mg/dL 8.7-10.2 [facility] Hospitalcarbon dioxide, venous [id number] 10:14:00 Test Item Value Reference Range Interpretation Comments carbon dioxide, venous blood (test 18 mmol/L 18-29 code = 2026-1) [facility] Healthchloride, [id number] 10:14:00 Test Item Value Reference Range Interpretation Comments chloride, serum (test code = 101 mmol/L 97-108 5-0) [facility] Healthpotassium, [id number] 10:14:00 Test Item Value Reference Range Interpretation Comments potassium, serum (test code = 4.0 mmol/L 3.5-5.2 2823-3) [facility] Hospitalsodium, ymjgd9565-79-73 10:14:00 Test Item Value Reference Range Interpretation Comments sodium, serum (test code = 2951-2) 139 mmol/L 134-144 [facility] Hospitalurea nitrogen/creatinine ratio, feapa0303-11-13 10:14:00 Test Item Value Reference Range Interpretation Comments urea nitrogen/creatinine 10 (unknown unit) 8-19 ratio, serum (test code = 3097-3) [facility] HealtheGFR if Wvvdyqnf0596-83-45 10:14:00 Test Item Value Reference Range Interpretation Comments eGFR if 121 mL/min/{1.73 m2} >59 (test code = 01482-4) [facility] HospitalEstimated Glomerular Filtration Rate (calc)2016-07-21 10:14:00 Test Item Value Reference Range Interpretation Comments Estimated Glomerular 105 mL/min/{1.73 m2} >59 Filtration Rate (calc) (test code = 67902-6) [facility] Hospitalcreatinine, [id number] 10:14:00 Test Item Value Reference Range Interpretation Comments creatinine, serum (test code = 0.93 mg/dL 0.76-1.27 2160-0) [facility] Hospitalurea nitrogen, gqfzs7168-06-17 10:14:00 Test Item Value Reference Range Interpretation Comments urea nitrogen, blood (test code = 9 mg/dL 6-20 3094-0) [facility] Hospitalblood glucose, skqhwd2815-34-98 10:14:00 Test Item Value Reference Range Interpretation Comments blood glucose, random (test code = 362 mg/dL 65-99 H 2339-0) [facility] Hospitalimmature granulocytes, percentage of total cells, blood 2016-07-21 10:14:00 Test Item Value Reference Range Interpretation Comments immature granulocytes, percentage of 0 % total cells, blood (test code = 08567-4) [facility] Hospitalbasophil count, nemubalg5956-39-15 10:14:00 Test Item Value Reference Range Interpretation Comments basophil count, absolute (test 0.0 x10E3/uL 0.0-0.2 code = 54315-3) [facility] HospitalEosinophil Absolute Agzci8022-90-59 10:14:00 Test Item Value Reference Range Interpretation Comments Eosinophil Absolute Count (test 0.2 X10E3/UL 0.0-0.4 code = 86012-2) [facility] Hospitalmonocyte count, blood, mvulucjvu3171-38-42 10:14:00 Test Item Value Reference Range Interpretation Comments monocyte count, blood, automated 0.3 X10E3/UL 0.1-0.9 (test code = 742-7) [facility] Hospitallymphocyte count, blood, szjmfezst3447-23-66 10:14:00 Test Item Value Reference Range Interpretation Comments lymphocyte count, blood, 1.6 X10E3/UL 0.7-3.1 automated (test code = 731-0) [facility] HospitalAbsolute Sbnucwhdezk4503-51-63 10:14:00 Test Item Value Reference Range Interpretation Comments Absolute Neutrophils (test code 3.7 X10E3/UL 1.4-7.0 = 25211-7) [facility] Hospitalbasophils as percent of blood dtbuqoczfv3518-90-64 10:14:00 Test Item Value Reference Range Interpretation Comments basophils as percent of blood 0 % leukocytes (test code = 707-0) [facility] Hospitaleosinophils as percent of blood hjpcxxwqar1342-70-81 10:14:00 Test Item Value Reference Range Interpretation Comments eosinophils as percent of blood 3 % leukocytes (test code = 713-8) [facility] Healthmonocytes as percent of blood lorduambax4687-92-91 10:14:00 Test Item Value Reference Range Interpretation Comments monocytes as percent of blood 5 % leukocytes (test code = 5905-5) [facility] Hospitallymphocytes as percent of blood lajyamdzrm8881-86-95 10:14:00 Test Item Value Reference Range Interpretation Comments lymphocytes as percent of blood 27 % leukocytes (test code = 736-9) [facility] Hospitalneutrophils as percent of blood gwtuezogyq8664-84-64 10:14:00 Test Item Value Reference Range Interpretation Comments neutrophils as percent of blood 65 % leukocytes (test code = 770-8) [facility] Hospitalplatelet ayqfy1763-09-68 10:14:00 Test Item Value Reference Range Interpretation Comments platelet count (test code = 165 X10E3/UL 150-379 777-3) [facility] Hospitalred blood cell distribution vhlco7350-37-20 10:14:00 Test Item Value Reference Range Interpretation Comments red blood cell distribution width 13.6 % 12.3-15.4 (test code = 788-0) [facility] Hospitalmean corpuscular hemoglobin concentration, [id number] 10:14:00 Test Item Value Reference Range Interpretation Comments mean corpuscular hemoglobin 34.6 G/DL 31.5-35.7 concentration, RBC (test code = 786-4) [facility] Hospitalmean corpuscular hemoglobin, [id number] 10:14:00 Test Item Value Reference Range Interpretation Comments mean corpuscular hemoglobin, RBC 31.0 pg 26.6-33.0 (test code = 785-6) [facility] Hospitalmean corpuscular volume, [id number] 10:14:00 Test Item Value Reference Range Interpretation Comments mean corpuscular volume, RBC (test code 90 fL 79-97 = 787-2) [facility] Hospitalhematocrit, zztoo8214-85-11 10:14:00 Test Item Value Reference Range Interpretation Comments hematocrit, blood (test code = 4544-3) 45.6 % 37.5-51.0 [facility] Hospitalhemoglobin, qzjad0284-00-40 10:14:00 Test Item Value Reference Range Interpretation Comments hemoglobin, blood (test code = 15.8 g/dL 12.6-17.7 718-7) [facility] Hospitalerythrocyte (RBC) mkhbb3327-88-72 10:14:00 Test Item Value Reference Range Interpretation Comments erythrocyte (RBC) count (test 5.09 X10E6/UL 4.14-5.80 code = 789-8) [facility] Hospitalleukocyte count, kyhrz7792-07-87 10:14:00 Test Item Value Reference Range Interpretation Comments leukocyte count, blood (test 5.8 X10E3/UL 3.4-10.8 code = 6690-2) [facility] HospitalCD4/CD8 xwxrn0099-00-36 10:14:00 Test Item Value Reference Range Interpretation Comments CD4/CD8 ratio (test code 1.39 (unknown unit) 0.92-3.72 = 30556) [facility] HospitalT-suppressor cells (CD8) as percent of blood lymphocytes 2016-07-21 10:14:00 Test Item Value Reference Range Interpretation Comments T-suppressor cells (CD8) as percent of 31.0 % 12.0-35.5 blood lymphocytes (test code = 3517) [facility] Hospitalabsolute [id number] 10:14:00 Test Item Value Reference Range Interpretation Comments absolute CD8 (test code = 496 (unknown unit) [phone]) [facility] Hospitalhepatitis A antibody, [id number] 12:15:41 Test Item Value Reference Range Interpretation Comments hepatitis A antibody, total (test Reactive code = 75) [facility] Hospitalhepatitis B surface ewpypncv3797-34-82 12:14:34 Test Item Value Reference Range Interpretation Comments hepatitis B surface antibody Non-reactive (test code = 78) [facility] HospitalT-helper cells (CD4) as percent of blood lymphocytes 2016-04-15 12:13:24 Test Item Value Reference Range Interpretation Comments T-helper cells (CD4) as percent of 42 % blood lymphocytes (test code = 8123-2) [facility] HospitalHIV-1RNA, serum, by PCR, tvfbqngdhqme3933-76-20 12:13:09 Test Item Value Reference Range Interpretation Comments HIV-1RNA, serum, by PCR, quantitative <20 (test code = 29189) [facility] HospitalT-helper cells (CD4) uxrsq7610-89-58 12:12:46 Test Item Value Reference Range Interpretation Comments T-helper cells (CD4) count (test code 677 uL = 23597-6) [facility] Hospitaltoxoplasma gondii antibody, [id number] 12:11:51 Test Item Value Reference Range Interpretation Comments toxoplasma gondii antibody, IgG (test <3 code = 2430) [facility] Hospitalrapid plasma reagin antibody, [id number] 12:11:28 Test Item Value Reference Range Interpretation Comments rapid plasma reagin antibody, serum 1:2 (test code = 5291-0) [facility]pat[facility] virus (HCV) RNA, PCR, kgiktjzunjxp5155-68-53 12:10:46 Test Item Value Reference Range Interpretation Comments Hepatitis C virus (HCV) RNA, Not-detected PCR, quantitative (test code = 43645) [facility] [id number] 12:10:17 Test Item Value Reference Range Interpretation Comments hepatitis C antibody, serum Non-reactive (test code = 5199-5) [facility] surface afcoweh8960-46-32 12:09:48 Test Item Value Reference Range Interpretation Comments hepatitis B surface antigen (test reactive code = 79) [facility] Hospitalprotein, total, [id number] 12:08:51 Test Item Value Reference Range Interpretation Comments protein, total, serum (test code = 7.6 g/dL 2885-2) [facility] Healthalbumin, cwrsh7952-84-82 12:08:51 Test Item Value Reference Range Interpretation Comments albumin, serum (test code = 1751-7) 4.0 g/dL [facility] Hospitalbilirubin, serum, [id number] 12:08:50 Test Item Value Reference Range Interpretation Comments bilirubin, serum, total (test code 0.5 mg/dL = 1975-2) [facility] Hospitalalanine aminotransferase (SGPT), ofaue0740-80-69 12:08:50 Test Item Value Reference Range Interpretation Comments alanine aminotransferase (SGPT), 103 1/L serum (test code = 1742-6) [facility] Hospitalaspartate aminotransferase (SGOT), rqudo0098-74-94 12:08:50 Test Item Value Reference Range Interpretation Comments aspartate aminotransferase (SGOT), 54 1/L serum (test code = 1920-8) [facility] Hospitalerythrocyte (RBC) [id number] 12:07:48 Test Item Value Reference Range Interpretation Comments erythrocyte (RBC) count (test 5.26 10*6/mm3 code = 789-8) [facility] Hospitalplatelet [id number] 12:07:47 Test Item Value Reference Range Interpretation Comments platelet count (test code = 228 10*3/mm3 777-3) [facility] Hospitalhematocrit, fotqw3025-91-96 12:07:47 Test Item Value Reference Range Interpretation Comments hematocrit, blood (test code = 4544-3) 46.8 % [facility] Hospitalhemoglobin, [id number] 12:07:46 Test Item Value Reference Range Interpretation Comments hemoglobin, blood (test code = 16.5 g/dL 718-7) [facility] Hospitalleukocyte count, dnjxf4163-92-75 12:07:46 Test Item Value Reference Range Interpretation Comments leukocyte count, blood (test 0.74 10*3/mm3 code = 6690-2) [facility] Hospitaltriglyceride, serum, ngrcefm1025-16-75 12:06:54 Test Item Value Reference Range Interpretation Comments triglyceride, serum, fasting (test 330 mg/dL code = 2571-8) [facility] HospitalLDL cholesterol, [id number] 12:06:54 Test Item Value Reference Range Interpretation Comments LDL cholesterol, serum (test code = 88 mg/dL 2088-1) [facility] HospitalHDL cholesterol, lrbho3023-08-90 12:06:54 Test Item Value Reference Range Interpretation Comments HDL cholesterol, serum (test code = 23 mg/dL 2084-9) [facility] Hospitalcholesterol, ubdsw2110-01-60 12:06:53 Test Item Value Reference Range Interpretation Comments cholesterol, serum (test code = 153 mg/dL 3-3) [facility] Hospitalcreatinine, ffymn3749-56-31 12:06:25 Test Item Value Reference Range Interpretation Comments creatinine, serum (test code = 0.9 mg/dL 2160-0) [facility] Hospitalurea nitrogen, [id number] 12:06:25 Test Item Value Reference Range Interpretation Comments urea nitrogen, blood (test code = 10 mg/dL 3094-0) [facility] Hospitalpotassium, vioeo8761-95-62 12:06:25 Test Item Value Reference Range Interpretation Comments potassium, serum (test code = 4.1 mmol/L 2823-3) [facility] Hospitalsodium, vrlfd9862-85-98 12:06:24 Test Item Value Reference Range Interpretation Comments sodium, serum (test code = 2951-2) 142 mmol/L [facility] HospitalT-helper cells (CD4) [id number] 15:52:58 Test Item Value Reference Range Interpretation Comments T-helper cells (CD4) count (test code 783 uL = 16875-3) [facility] HospitalHIV-1RNA, serum, by PCR, googhwfqdvlk6825-47-43 15:52:58 Test Item Value Reference Range Interpretation Comments HIV-1RNA, serum, by PCR, quantitative 75 /mL (test code = 28973) [facility]
[2021-06-08 17:32] LABS: Absolute Lymphocytes (CBC) 0.5 K/uL (0.7-4.9); Basophils % 0.4 % (0-1.3); Hematocrit 50.7 % (39.6-49.0); Lymphocytes % 3.6 % (15.3-44.8); MPV 8.3 fL (7.6-11.3); RBC Red Blood Cell Count 5.67 M/uL (4.33-5.43)
[2021-06-08 17:43] LABS: Protime INR 1.09
[2021-06-08 17:50] LABS: ALT/SGPT 31 U/L (12-78); AST/SGOT 13 U/L (15-37); Albumin 4.6 g/dL (3.4-5.0); Alkaline Phosphatase 74 U/L (45-117); BUN Blood Urea Nitrogen 18 mg/dL (7-18); Bicarbonate 25 mmol/L (21-32); Bilirubin Direct 0.2 mg/dL (0-0.2); Bilirubin Total 1.2 mg/dL (0.2-1.0); Glucose Level 153 mg/dL (74-106); Magnesium 2.3 mg/dL (1.8-2.4); NT PRO-BNP 48 pg/mL (<125); Protein, Total 8.4 g/dL (6.4-8.2); Sodium Level 144 mmol/L (136-145); Troponin (Emerg Dept Use Only) < 0.02 ng/mL (0.0-0.045)
[2021-06-08 17:53] LABS: Blood Morphology Comment NOT SEEN (NOT SEEN); Platelet Estimate ADEQ; White Blood Cell Scan OK (OK)
--- NOTE | 2021-06-08 18:07 | RAD REPORT ---
EXAM DESCRIPTION: Ricky Single View06/08/2021 5:22 pm CLINICAL HISTORY: Chest pain COMPARISON: 2014 FINDINGS: The lungs appear clear of acute infiltrate. The heart is normal size IMPRESSION: No acute abnormalities displayed
--- NOTE | 2021-06-08 19:43 | RAD REPORT ---
EXAM DESCRIPTION: CT - Abdomen Pelvis W Contrast - 06/08/2021 7:23 pm CLINICAL HISTORY: Abdominal pain COMPARISON: 2019 TECHNIQUE: Computed axial tomography of the abdomen pelvis was obtained. 100 cc Isovue-300 was admin istered intravenously. Oral contrast was not requested which limits evaluation of bowel. All CT scans are performed using dose optimization technique as appropriate and may include automated exposure control or mA/KV adjustment according to patient size. FINDINGS: The liver, spleen, pancreas, adrenal and kidneys appear unremarkable. There is no evidence of diverticulitis. Fluid within nondilated small bowel. Mild gastric distention. Small umbilical hernia IMPRESSION: Mild gastric distention Fluid within nondilated small bowel is a nonspecific finding but can be seen with an enteritis
[2021-06-08] MEDS ORDERED: NA CHLORIDE 0.9% 1,000 ML ONE (19:50)
[2021-06-08] MEDS ORDERED: ONDANSETRON 4 MG/2 ML VIAL ONE (19:50)
[2021-06-08] MEDS ORDERED: MORPHINE 4 MG/ML SYR ONE (19:50)
[2021-06-08] MEDS ORDERED: KETOROLAC 30 MG/ML INJ ONE (20:47)
--- NOTE | 2021-06-08 20:55 | EDPHYS ---
Physician Documentation [facility] Name: Jaleel Olivas Age: 40 yrs Sex: Male : 1980 Arrival Date: 06/08/2021 Time: 15:37 Bed 24 Private MD: ED Physician Matthieu Bowen HPI: 06/08 18:17 This 40 yrs old Male presents to ER via Ambulatory with complaints of Back pm1 Pain, Abdominal Pain. 18:17 The patient presents with abdominal pain in the upper abdomen. Onset: The pm1 symptoms/episode began/occurred today. The symptoms do not radiate. Associated signs and symptoms: Pertinent positives: nausea, vomiting, and diarrhea, chest pain, Pertinent negatives: shortness of breath. The symptoms are described as crampy. Modifying factors: The symptoms are alleviated by nothing, the symptoms are aggravated by nothing. Severity of pain: in the emergency department the pain has improved. The patient has experienced similar episodes in the past, multiple times. The patient has been recently seen by a physician: an infectious disease specialist, Informed that his counts are good. Patient presents to the ER with complaints of abdominal pain to upper quadrant with nausea vomiting and diarrhea that started today. Patient is also reports right-sided chest pain radiating to right arm. He has had multiple episodes of the same presentation of abdominal pain and chest pain for the past year that come and go.. Historical: - Allergies: 16:57 Codeine (Hives); aa5 16:57 Tape; aa5 - Home Meds: 16:57 lisinopril Oral [Active]; Metformin Oral [Active]; aa5 16:58 Odefsey oral [Active]; lamotrigine 25 mg oral tab [Active]; Trulicity 1.5 mg/0.5 mL aa5 subcutaneous pnij [Active]; fenofibrate 40 mg oral tab [Active]; 21:18 Complera Oral [Active]; iw - PMHx: 16:57 Diabetes - NIDDM; HIV; Hypertension; aa5 - Immunization history:: David and David Flu vaccine is up to date. - Social history:: Smoking status: Reported history of juuling and/or vaping. ROS: 18:17 Constitutional: Negative for fever, chills, and weight loss. pm1 18:17 Respiratory: Negative for shortness of breath, cough, wheezing, and pleuritic chest pain, Back: Negative for injury and pain, : Negative for injury, bleeding, discharge, and swelling, MS/Extremity: Negative for injury and deformity, Skin: Negative for injury, rash, and discoloration, Neuro: Negative for headache, weakness, numbness, tingling, and seizure. 18:17 Cardiovascular: Positive for chest pain, Negative for edema, palpitations. 18:17 Abdomen/GI: Positive for abdominal pain, nausea, vomiting, and diarrhea, Negative for constipation. 18:17 All other systems are negative. Exam: 18:17 Constitutional: This is a well developed, well nourished patient who is awake, alert, pm1 and in no acute distress. Head/Face: Normocephalic, atraumatic. 18:17 Back: No spinal tenderness. No costovertebral tenderness. Full range of motion. Skin: Warm, dry with normal turgor. Normal color with no rashes, no lesions, and no evidence of cellulitis. MS/ Extremity: Pulses equal, no cyanosis. Neurovascular intact. Full, normal range of motion. 18:17 Eyes: Exam is negative for acute changes, Periorbital structures: appear normal, Extraocular movements: no acute changes. 18:17 ENT: Exam is negative for acute changes, Mouth: Lips: normal, Oral mucosa: normal, pink and intact, moist. 18:17 Chest/axilla: Exam negative for acute changes. 18:17 Cardiovascular: Exam negative for acute changes, Rate: normal, Rhythm: regular, Pulses: no pulse deficits are appreciated. 18:17 Respiratory: Exam negative for acute changes, respiratory distress, shortness of breath, Breath sounds: are clear throughout. 18:17 Abdomen/GI: Inspection: abdomen appears normal, Bowel sounds: normal, Palpation: abdomen is soft and non-tender, in all quadrants. 18:17 Neuro: Exam negative for acute changes, Orientation: is normal, Mentation: is normal, Motor: is normal, moves all fours. Vital Signs: 16:56 BP 136 / 99; Pulse 117; Resp 18 S; Temp 99.2(TE); Pulse Ox 99% on R/A; Weight 62.14 kg aa5 (R); Height 5 ft. 5 in. (165.10 cm) (R); Pain 9/10; 21:09 BP 116 / 81; Pulse 87; Resp 16; Pulse Ox 98% on R/A; ak2 16:56 Body Mass Index 22.80 (62.14 kg, 165.10 cm) aa5 MDM: 18:17 Patient medically screened. pm1 20:23 Data reviewed: vital signs. Data interpreted: Pulse oximetry: on room air is 99 %. pm1 Interpretation: normal. 20:23 Counseling: I had a detailed discussion with the patient and/or guardian regarding: the pm1 historical points, exam findings, and any diagnostic results supporting the discharge/admit diagnosis. 06/08 17:05 Order name: Basic Metabolic Panel; Complete Time: 18:17 aa5 06/08 17:06 Order name: CBC with Diff; Complete Time: 18:17 aa5 06/08 17:06 Order name: LFT's; Complete Time: 18:17 aa5 06/08 17:06 Order name: Magnesium; Complete Time: 18:17 aa5 06/08 17:06 Order name: NT PRO-BNP; Complete Time: 18:17 aa5 06/08 17:06 Order name: PT-INR; Complete Time: 18:17 aa5 06/08 17:06 Order name: Troponin (emerg Dept Use Only); Complete Time: 18:17 aa5 06/08 17:06 Order name: XRAY Chest (1 view); Complete Time: 18:17 aa5 06/08 17:53 Order name: CBC Smear Scan; Complete Time: 18:17 EDMS 06/08 18:40 Order name: CT Abd/Pelvis - IV Contrast Only; Complete Time: 19:47 pm1 06/08 20:29 Order name: Flu; Complete Time: 03:17 pm1 06/08 17:05 Order name: EKG - Nurse/Tech; Complete Time: 17:05 aa5 06/08 17:06 Order name: IV Saline Lock; Complete Time: 18:11 aa5 06/08 17:06 Order name: Labs collected and sent; Complete Time: 18:11 aa5 Administered Medications: 19:29 Drug: NS 0.9% 1000 ml Route: IV; Rate: 1000 ml; Site: left antecubital; iw 20:20 Follow up: IV Status: Completed infusion iw 21:20 Follow up: IV Intake: 1000ml iw 19:29 Drug: morphine 4 mg Route: IVP; Site: left antecubital; iw 21:19 Follow up: Response: No adverse reaction iw 19:29 Drug: Zofran (Ondansetron) 4 mg Route: IVP; Site: left antecubital; iw 21:20 Follow up: Response: No adverse reaction iw 20:34 Drug: Ketorolac 15 mg Route: IVP; Site: left antecubital; ak2 21:20 Follow up: Response: No adverse reaction iw 20:56 Drug: Flagyl (metroNIDAZOLE) 500 mg Volume: 100 ml; Route: IVPB; Rate: 200 ml/hr; ak2 Infused Over: 30 mins; Site: left antecubital; 21:19 Follow up: Response: No adverse reaction; IV Intake: 100ml iw 21:20 Follow up: IV Status: Completed infusion iw 21:28 Follow up: Response: No adverse reaction; IV Intake: 250ml iw 20:56 Drug: Cipro (ciprofloxacin) 500 mg Route: PO; ak2 21:19 Follow up: Response: No adverse reaction iw Disposition: 06/09 07:08 Co-signature as Attending Physician, Matthieu Bowen MD I agree with the assessment and anita plan of care. Disposition Summary: 06/08/21 20:54 Discharge Ordered Location: Home pm1 Problem: new pm1 Symptoms: have improved pm1 Condition: Stable pm1 Diagnosis - Vomiting pm1 - Diarrhea, unspecified pm1 - Abdominal pain, unspecified pm1 Followup: pm1 - With: Emergency Department - When: As needed - Reason: Worsening of condition Followup: pm1 - With: Private Physician - When: 2 - 3 days - Reason: Recheck today's complaints, Continuance of care, Re-evaluation by your physician Discharge Instructions: - Discharge Summary Sheet pm1 - Abdominal Pain, Adult pm1 - Food Choices to Help Relieve Diarrhea, Adult pm1 - Diarrhea, Adult pm1 - Nausea and Vomiting, Adult pm1 Forms: - Medication Reconciliation Form pm1 - Thank You Letter pm1 - Antibiotic Education pm1 - Prescription Opioid Use pm1 Prescriptions: - dicyclomine 20 mg Oral tablet - take 1 tablet by ORAL route every 6 hours As needed; 20 tablet; Refills: 0, pm1 Product Selection Permitted - ondansetron 4 mg Oral tablet,disintegrating - place 1 tablet by TRANSLINGUAL route every 8 hours As needed; 15 tablet; pm1 Refills: 0, Product Selection Permitted - Flagyl 500 mg Oral Tablet - take 1 tablet by ORAL route every 8 hours for 10 days; 30 tablet; Refills: 0, pm1 Product Selection Permitted - Cipro 500 mg Oral Tablet - take 1 tablet by ORAL route every 12 hours for 10 days; 20 tablet; Refills: 0, pm1 Product Selection Permitted Signatures: Dispatcher [employer] EDMS Matthieu Bowen MD MD cha Williams, Irene RN Paulette Pardo RN RN aa5 Olegario Urban, CLIP WRAPPER CLIP WRAPPER pm1 Kaleb Palafox2 Corrections: (The following items were deleted from the chart) 06/08 17:07 17:06 CBC without Diff+H.LAB.BRZ ordered. EDMS EDMS 20:50 20:30 CORONAVIRUS+MR.LAB.BRZ ordered. EDMS EDMS
--- NOTE | 2021-06-08 20:55 | ER ---
Nurse's Notes [facility] Name: Jaleel Olivas Age: 40 yrs Sex: Male : 1980 Arrival Date: 06/08/2021 Time: 15:37 Bed 24 Private MD: Diagnosis: Vomiting;Diarrhea, unspecified;Abdominal pain, unspecified Presentation: 06/08 16:56 Chief complaint: Patient states: upper abd pain and vomiting/diarrhea that began today. aa5 Pt also reports tingling to right arm that began this morning and upper back pain. Coronavirus screen: At this time, the client does not indicate any symptoms associated with coronavirus-19. Ebola Screen: Patient negative for fever greater than or equal to 101.5 degrees Fahrenheit, and additional compatible Ebola Virus Disease symptoms. Initial Sepsis Screen: Does the patient meet any 2 criteria? No. Patient's initial sepsis screen is negative. Does the patient have a suspected source of infection? No. Patient's initial sepsis screen is negative. Risk Assessment: Do you want to hurt yourself or someone else? Patient reports no desire to harm self or others. Onset of symptoms was June 08, 2021. 16:56 Method Of Arrival: Ambulatory aa5 16:56 Acuity: LARRY 3 aa5 Triage Assessment: 21:18 General: Appears in no apparent distress. Behavior is calm, cooperative. Pain: Denies iw pain. Cardiovascular: No deficits noted. Historical: - Allergies: 16:57 Codeine (Hives); aa5 16:57 Tape; aa5 - Home Meds: 16:57 lisinopril Oral [Active]; Metformin Oral [Active]; aa5 16:58 Odefsey oral [Active]; lamotrigine 25 mg oral tab [Active]; Trulicity 1.5 mg/0.5 mL aa5 subcutaneous pnij [Active]; fenofibrate 40 mg oral tab [Active]; 21:18 Complera Oral [Active]; iw - PMHx: 16:57 Diabetes - NIDDM; HIV; Hypertension; aa5 - Immunization history:: David and David Flu vaccine is up to date. - Social history:: Smoking status: Reported history of juuling and/or vaping. Screenin:17 Abuse screen: Denies threats or abuse. Denies injuries from another. Nutritional iw screening: No deficits noted. Tuberculosis screening: No symptoms or risk factors identified. Fall Risk None identified. Assessment: 21:18 Pain: Pain does not radiate. Pain began suddenly. iw Vital Signs: 16:56 BP 136 / 99; Pulse 117; Resp 18 S; Temp 99.2(TE); Pulse Ox 99% on R/A; Weight 62.14 kg aa5 (R); Height 5 ft. 5 in. (165.10 cm) (R); Pain 9/10; 21:09 BP 116 / 81; Pulse 87; Resp 16; Pulse Ox 98% on R/A; ak2 16:56 Body Mass Index 22.80 (62.14 kg, 165.10 cm) aa5 ED Course: 15:37 Patient arrived in ED. mr 16:56 Arm band placed on. aa5 16:57 Triage completed. aa5 17:15 Initial lab(s) drawn, by me, sent to lab. Inserted saline lock: 20 gauge in left aa5 forearm, using aseptic technique. Blood collected. 17:16 Patient placed in waiting room, Patient notified of wait time. aa5 17:22 XRAY Chest (1 view) In Process Unspecified. EDMS 17:39 Marilu Farley, NASEEM is Primary Nurse. iw 18:12 Olegario Urban NP is PHCP. pm1 18:12 Matthieu Bowen MD is Attending Physician. pm1 19:23 CT Abd/Pelvis - IV Contrast Only In Process Unspecified. EDMS 21:18 Patient has correct armband on for positive identification. cardiac monitor on. Pulse iw ox on. NIBP on. 21:18 No provider procedures requiring assistance completed. Patient did not have IV access iw during this emergency room visit. 21:18 Patient maintains SpO2 saturation greater than 95% on room air. iw Administered Medications: 19:29 Drug: NS 0.9% 1000 ml Route: IV; Rate: 1000 ml; Site: left antecubital; iw 20:20 Follow up: IV Status: Completed infusion iw 21:20 Follow up: IV Intake: 1000ml iw 19:29 Drug: morphine 4 mg Route: IVP; Site: left antecubital; iw 21:19 Follow up: Response: No adverse reaction iw 19:29 Drug: Zofran (Ondansetron) 4 mg Route: IVP; Site: left antecubital; iw 21:20 Follow up: Response: No adverse reaction iw 20:34 Drug: Ketorolac 15 mg Route: IVP; Site: left antecubital; ak2 21:20 Follow up: Response: No adverse reaction iw 20:56 Drug: Flagyl (metroNIDAZOLE) 500 mg Volume: 100 ml; Route: IVPB; Rate: 200 ml/hr; ak2 Infused Over: 30 mins; Site: left antecubital; 21:19 Follow up: Response: No adverse reaction; IV Intake: 100ml iw 21:20 Follow up: IV Status: Completed infusion iw 21:28 Follow up: Response: No adverse reaction; IV Intake: 250ml iw 20:56 Drug: Cipro (ciprofloxacin) 500 mg Route: PO; ak2 21:19 Follow up: Response: No adverse reaction iw Intake: 21:19 IV: 100ml; Total: 100ml. iw 21:20 IV: 1000ml; Total: 1100ml. iw 21:28 IV: 250ml; Total: 1350ml. iw Outcome: 20:54 Discharge ordered by . pm1 21:09 Discharged to home ambulatory. ak2 21:09 Condition: good 21:09 Discharge instructions given to patient. 21:10 Patient left the ED. ak2 Signatures: Dispatcher [employer] Clover Shafer Irene, RN RN iw Paulette Bishop RN RN aa5 Olegario Urban, CHELSIE SPRINKLER INSTALLER pm1 Kaleb Palafox ak2
[2021-06-08] MEDS ORDERED: METRONIDAZOLE 500mg IVPB 500 MG/100 ML BAG IV ONE (20:58)
[2021-06-08] MEDS ORDERED: CIPROFLOXACIN HCL 500 MG TAB ONE (20:58)
[2021-06-08 21:52] VITALS: TEMP 99.2
[2021-06-08 21:53] VITALS: BP 116/81; O2SAT 98
--- NOTE | 2021-06-09 17:00 | EKG ---
Test Date: 2021-06-08 Test Time: 17:03:03 Scrap Sorter: CHER MEASUREMENT RESULTS: Intervals: Rate: 117 OH: 112 QRSD: 70 QT: 290 QTc: 404 Damar: P: 60 OH: 112 QRS: 48 T: 65 INTERPRETIVE STATEMENTS: Sinus tachycardia Otherwise normal ECG Compared to ECG 04/23/2019 19:59:45 Left ventricular hypertrophy no longer present Electronically Signed On 06-09-21 16:58:53 CDT by Brent Bradford
== END 2021-06-08 21:10 | disposition home or self-care (01) ==
LOC: ER 15:34
DX: R19.7 Diarrhea, unspecified (principal); R11.10 Vomiting, unspecified; I10 Essential (primary) hypertension; E11.9 Type 2 diabetes mellitus without complications; Z21 Asymptomatic human immunodeficiency virus [HIV] infection status; Z88.5 Allergy status to narcotic agent; Z91.048 Other nonmedicinal substance allergy status; Z20.822 Contact with and (suspected) exposure to COVID-19
CPT/HCPCS: 93005; 85025; 80048; 36415; 83735; 85610; 80076; 84484; 83880; 87804 ×2; 74177; 71045; U0003; J7030; J2405; 96361; 96365; 96375; 99285

== ENCOUNTER 2021-08-20 23:38 | Emergency (ER) | payer BC ==
[2021-08-21] MEDS ORDERED: CASIRIVIMAB/IMDEVIMAB 10 ML VIAL ONE (02:11)
[2021-08-21] MEDS ORDERED: NA CHLORIDE 0.9% 250 ML ONE (02:13)
[2021-08-21 02:14] LABS: Absolute Lymphocytes (CBC) 1.4 K/uL (0.7-4.9); Basophils % 0.4 % (0-1.3); Hematocrit 43.5 % (39.6-49.0); Lymphocytes % 22.3 % (15.3-44.8); MPV 8.3 fL (7.6-11.3); RBC Red Blood Cell Count 4.88 M/uL (4.33-5.43)
[2021-08-21 02:15] LABS: Protime INR 1.15
[2021-08-21 02:38] LABS: ALT/SGPT 37 U/L (12-78); AST/SGOT 21 U/L (15-37); Albumin 4.1 g/dL (3.4-5.0); Alkaline Phosphatase 80 U/L (45-117); BUN Blood Urea Nitrogen 12 mg/dL (7-18); Bicarbonate 24 mmol/L (21-32); Bilirubin Direct 0.2 mg/dL (0-0.2); Bilirubin Total 0.7 mg/dL (0.2-1.0); Ferritin 126.9 ng/mL (26-388); Glucose Level 99 mg/dL (74-106); Magnesium 2.4 mg/dL (1.8-2.4); Potassium 3.3 mmol/L (3.5-5.1); Protein, Total 7.9 g/dL (6.4-8.2); Sodium Level 141 mmol/L (136-145); Troponin (Emerg Dept Use Only) < 0.02 ng/mL (0.0-0.045)
[2021-08-21] MEDS ORDERED: POTASSIUM 25 MEQ EFFERV TAB ONE (04:05)
--- NOTE | 2021-08-21 04:13 | ER ---
Nurse's Notes [facility] Name: Jaleel Olivas Age: 40 yrs Sex: Male : 1980 Arrival Date: 08/20/2021 Time: 23:44 Bed 25 Private MD: Diagnosis: SARS-associated coronavirus as the cause of diseases classified elsewhere Presentation: 08/21 00:25 Chief complaint: Patient states: C/o headache, dry cough, body aches, chills, dry mouth sj1 since 08/18/21. + covid test on 08/19/21. Coronavirus screen: Vaccine status: Patient reports receiving the 1st dose of the Covid vaccine. David \T\ David chills, congestion, cough unrelated to allergies, diarrhea, fatigue, headache, sore throat, Client presents with at least one sign or symptom that may indicate coronavirus-19. Standard/surgical mask placed on the client. Client reports previous positive COVID test result. Date of collection: August 19, 2021. Ebola Screen: Patient negative for fever greater than or equal to 101.5 degrees Fahrenheit, and additional compatible Ebola Virus Disease symptoms Patient denies exposure to infectious person. Patient denies travel to an Ebola-affected area in the 21 days before illness onset. No symptoms or risks identified at this time. Initial Sepsis Screen: Does the patient meet any 2 criteria? No. Patient's initial sepsis screen is negative. Does the patient have a suspected source of infection? No. Patient's initial sepsis screen is negative. Risk Assessment: Do you want to hurt yourself or someone else? Patient reports no desire to harm self or others. Onset of symptoms was August 18, 2021. 00:25 Method Of Arrival: Ambulatory sj1 00:25 Acuity: LARRY 3 sj1 Triage Assessment: 00:30 General: Appears in no apparent distress. Behavior is calm, cooperative, appropriate sj1 for age. Pain: Complains of pain in headache, gen body aches. EENT: Reports sore throat. Neuro: No deficits noted. Cardiovascular: No deficits noted. Respiratory: Reports cough that is dry, Onset: The symptoms/episode began/occurred 08/18/21. Respiratory: the patient has mild shortness of breath. GI: No deficits noted. : No deficits noted. Derm: No deficits noted. Musculoskeletal: Reports gen body aches. Historical: - Allergies: 00:30 Codeine (Hives); sj1 00:30 Tape; sj1 - PMHx: 00:30 Diabetes - NIDDM; HIV; Hypertension; sj1 - Immunization history:: Adult Immunizations up to date, Client reports receiving the David \T\ David single-dose vaccine. - Social history:: Smoking status: Reported history of juuling and/or vaping. Patient/guardian denies using alcohol, street drugs. Screenin:23 Abuse screen: Denies threats or abuse. Denies injuries from another. Nutritional mr2 screening: No deficits noted. Tuberculosis screening: No symptoms or risk factors identified. Never had TB. Possible symptoms: None. Fall Risk IV access (20 points). Gait-. Assessment: 01:00 Cardiovascular: Rhythm is sinus rhythm. Respiratory: Airway is patent Respiratory mr2 effort is even, Breath sounds are clear. Vital Signs: 00:25 BP 155 / 100; Pulse 91; Resp 17 S; Temp 98.7(O); Pulse Ox 99% on R/A; Weight 68.04 kg sj1 (R); Height 5 ft. 5 in. (165.10 cm) (R); Pain 10/10; 02:00 BP 138 / 88; Pulse 84; Resp 17; Temp 98.5; Pulse Ox 100% on R/A; Weight 74.84 kg; mr2 Height 5 ft. 7 in. (170.18 cm); Pain 3/10; 02:00 Body Mass Index 25.84 (74.84 kg, 170.18 cm) mr2 ED Course: 08/20 23:44 Patient arrived in ED. ja2 08/21 00:06 Matthieu Santiago PA is PHCP. cp 00:06 Isauro Santamaria MD is Attending Physician. cp 00:30 Triage completed. sj1 00:39 Fly Newell, NASEEM is Primary Nurse. mr2 01:28 XRAY Chest (1 view) In Process Unspecified. EDMS 01:30 No provider procedures requiring assistance completed. Inserted saline lock: 20 gauge mr2 in left antecubital area, using aseptic technique. 02:50 Patient has correct armband on for positive identification. Bed in low position. Call mr2 light in reach. Side rails up X2. 04:14 IV discontinued. mr2 04:15 Arm band placed on right wrist. mr2 Administered Medications: 02:06 Drug: NS 0.9% 1000 ml Route: IV; Rate: 1 bolus; Site: left antecubital; mr2 02:06 Drug: Casirivimab-Imdevimab Dose Pack 120 mg/mL-120 mg/mL (EUA) 260 ml Route: IV; Rate: mr2 calculated rate; Site: left antecubital; 02:07 Drug: NS 0.9% 1000 ml Route: IV; Rate: 1 bolus; Site: left antecubital; mr2 03:50 Drug: Potassium Effervescent Tablet 50 mEq Route: PO; mr2 Outcome: 04:12 Discharge ordered by . german 04:15 Discharged to home ambulatory. mr2 04:15 Condition: stable 04:15 Instructed on discharge instructions, medication usage. 06:40 Patient left the ED. mr2 Signatures: Dispatcher [employer] EDMS Matthieu Santiago PA PA cp Alexander, Jessica ja2 Reynard, Mike, RN RN mr2 Geetha Hernandez RN RN sj1
--- NOTE | 2021-08-21 04:13 | EDPHYS ---
Physician Documentation [facility] Name: Jaleel Olivas Age: 40 yrs Sex: Male : 1980 Arrival Date: 08/20/2021 Time: 23:44 Bed 25 Private MD: ED Physician Isauro Santamaria HPI: 08/21 01:18 This 40 yrs old Male presents to ER via Ambulatory with complaints of cp Breathing Difficulty, Cough, Headache, COVID+. 01:18 The patient or guardian reports cough, that is intermittent. cp 01:18 Onset: The symptoms/episode began/occurred 3 day(s) ago. cp 01:18 Patient reports testing positive for COVID-19 2 days ago with symptoms starting 3 days cp ago. Patient reports he did receive the [employer] David COVID-19 vaccine in the past. Historical: - Allergies: 00:30 Codeine (Hives); sj1 00:30 Tape; sj1 - PMHx: 00:30 Diabetes - NIDDM; HIV; Hypertension; sj1 - Immunization history:: Adult Immunizations up to date, Client reports receiving the David \T\ David single-dose vaccine. - Social history:: Smoking status: Reported history of juuling and/or vaping. Patient/guardian denies using alcohol, street drugs. ROS: 01:20 Constitutional: Negative for chills, fever, poor PO intake. cp 01:20 Eyes: Negative for injury, pain, redness, and discharge. cp 01:20 ENT: Negative for ear pain, sore throat, difficulty swallowing, difficulty handling secretions. 01:20 Cardiovascular: Negative for chest pain, edema, palpitations. 01:20 Respiratory: Positive for cough, with no reported sputum, shortness of breath. 01:20 Abdomen/GI: Negative for abdominal pain, vomiting, diarrhea, constipation. 01:20 Neuro: Positive for headache, Negative for altered mental status, weakness. Exam: 01:25 Constitutional: The patient appears in no acute distress, alert, awake, cp non-diaphoretic, non-toxic, well developed, well nourished. 01:25 Head/Face: Normocephalic, atraumatic. cp 01:25 Eyes: Periorbital structures: appear normal, Conjunctiva: normal, no exudate, no injection, Sclera: no appreciated abnormality, Lids and lashes: appear normal, bilaterally. 01:25 ENT: External ear(s): are unremarkable, Nose: is normal, Mouth: Lips: moist, Oral mucosa: moist, Posterior pharynx: Airway: no evidence of obstruction, patent. 01:25 Neck: ROM/movement: is normal, is supple, without pain, no range of motions limitations, no meningismus. 01:25 Chest/axilla: Inspection: normal, Palpation: is normal, no crepitus, no tenderness. 01:25 Cardiovascular: Rate: normal, Rhythm: regular, Edema: is not appreciated, JVD: is not appreciated. 01:25 Respiratory: the patient does not display signs of respiratory distress, Respirations: normal, no use of accessory muscles, no retractions, labored breathing, is not present, Breath sounds: are clear throughout, no decreased breath sounds, no stridor, no wheezing. 01:25 Abdomen/GI: Inspection: abdomen appears normal, Palpation: abdomen is soft and non-tender, in all quadrants. 01:25 Back: pain, is absent, ROM is normal. 01:25 Neuro: Orientation: to person, place \T\ time. Mentation: is normal. 04:10 ECG was reviewed by the Attending Physician. cp Vital Signs: 00:25 BP 155 / 100; Pulse 91; Resp 17 S; Temp 98.7(O); Pulse Ox 99% on R/A; Weight 68.04 kg sj1 (R); Height 5 ft. 5 in. (165.10 cm) (R); Pain 10/10; 02:00 BP 138 / 88; Pulse 84; Resp 17; Temp 98.5; Pulse Ox 100% on R/A; Weight 74.84 kg; mr2 Height 5 ft. 7 in. (170.18 cm); Pain 3/10; 02:00 Body Mass Index 25.84 (74.84 kg, 170.18 cm) mr2 MDM: 00:39 Patient medically screened. cp 01:30 Differential diagnosis: bronchitis, flu, pneumonia, respiratory failure, pulmonary cp embolism. 03:10 Data reviewed: vital signs, nurses notes, lab test result(s), radiologic studies, plain cp films. 08/21 01:16 Order name: Basic Metabolic Panel cp 08/21 01:16 Order name: CBC with Diff cp 08/21 01:16 Order name: LFT's cp 08/21 01:16 Order name: Magnesium cp 08/21 01:16 Order name: PT-INR; Complete Time: 02:34 cp 08/21 02:38 Interpretation: Normal except: PT 13.2. cp 08/21 01:16 Order name: Troponin (emerg Dept Use Only); Complete Time: 03:08 cp 08/21 01:16 Order name: XRAY Chest (1 view) cp 08/21 01:16 Order name: CRP; Complete Time: 03:08 cp 08/21 03:08 Interpretation: Abnormal: C-REACTIVE PROT 11.30. cp 08/21 01:16 Order name: Ferritin; Complete Time: 03:08 cp 08/21 01:16 Order name: Basic Metabolic Panel; Complete Time: 03:08 EDMS 08/21 03:09 Interpretation: Normal except: K 3.3; CL 109; GFR 66; CA 8.4. 08/21 01:16 Order name: CBC with Automated Diff; Complete Time: 02:34 EDMS 08/21 02:35 Interpretation: Reviewed. cp 08/21 01:16 Order name: Liver (Hepatic) Function; Complete Time: 03:08 EDMS 08/21 03:09 Interpretation: Normal except: GLOB 3.8. cp 08/21 01:16 Order name: Magnesium; Complete Time: 03:08 EDMS 08/21 01:25 Order name: D-Dimer; Complete Time: 02:34 cp 08/21 02:36 Interpretation: Within normal limits: D-DIMER < 215. 08/21 01:16 Order name: EKG; Complete Time: 01:16 cp 08/21 01:16 Order name: Cardiac monitoring 08/21 01:16 Order name: EKG - Nurse/Tech 08/21 01:16 Order name: IV Saline Lock 08/21 01:16 Order name: Labs collected and sent 08/21 01:16 Order name: O2 Per Protocol 08/21 01:16 Order name: O2 Sat Monitoring EC:10 Rate is 85 beats/min. Rhythm is regular. NH interval is normal. QRS interval is normal. cp QT interval is normal. T waves are Inverted in lead aVR. Interpreted by me. Reviewed by me. Administered Medications: 02:06 Drug: NS 0.9% 1000 ml Route: IV; Rate: 1 bolus; Site: left antecubital; mr2 02:06 Drug: Casirivimab-Imdevimab Dose Pack 120 mg/mL-120 mg/mL (EUA) 260 ml Route: IV; Rate: mr2 calculated rate; Site: left antecubital; 02:07 Drug: NS 0.9% 1000 ml Route: IV; Rate: 1 bolus; Site: left antecubital; mr2 03:50 Drug: Potassium Effervescent Tablet 50 mEq Route: PO; mr2 Disposition: 06:44 Co-signature as Attending Physician, Isauro Santamaria MD Did not see or evaluate patient. ps1 Signature is for administrative purposes and not an endorsement of care provided. . Disposition Summary: 08/21/21 04:12 Discharge Ordered Location: Home cp Problem: new cp Symptoms: have improved cp Condition: Stable cp Diagnosis - SARS-associated coronavirus as the cause of diseases classified elsewhere cp Followup: cp - With: Private Physician - When: 2 - 3 days - Reason: Worsening of condition Discharge Instructions: - Discharge Summary Sheet cp - COVID-19 cp - Things to Know about the COVID-19 Pandemic - [facility] cp - 10 Things You Can Do to Manage Your COVID-19 Symptoms at Home - [facility] cp - COVID-19: Quarantine vs. Isolation - [facility] cp - Prevent the Spread of COVID-19 if You Are Sick - [facility] cp Forms: - Medication Reconciliation Form cp - Thank You Letter cp - Antibiotic Education cp - Prescription Opioid Use cp Prescriptions: - Ibuprofen 800 mg Oral Tablet - take 1 tablet by ORAL route every 8 hours As needed take with food; 30 tablet; cp Refills: 0, Product Selection Permitted - Tessalon Perles 100 mg Oral Capsule - take 2 capsule by ORAL route every 8 hours As needed; 20 capsule; Refills: 0, cp Product Selection Permitted Signatures: Dispatcher [employer] EDMS Matthieu Santiago PA PA cp Isauro Santamaria MD MD ps1 Fly Newell RN RN mr2 Geetha Hernandez RN RN sj1 Corrections: (The following items were deleted from the chart) 03:09 03:09 Normal except: K 3.3; CL 109; GFR 66. cp cp
[2021-08-21 06:48] VITALS: BP 138/88; TEMP 98.5; O2SAT 100
--- NOTE | 2021-08-21 07:40 | RAD REPORT ---
EXAM DESCRIPTION: RAD - Chest Single View - 08/21/2021 1:28 am CLINICAL HISTORY: SOB COMPARISON: Single-view chest June 08 TECHNIQUE: AP portable chest image was obtained 08/21/2021 1:28 am . FINDINGS: Lung volumes are low. No acute lung parenchymal process seen. Interstitial pattern matches comparison. Heart and vasculature are normal. No measurable pleural effusion and no pneumothorax. No acute bony abnormality seen. No acute aortic findings suspected. IMPRESSION: No acute cardiopulmonary process. No significant change from comparison study.
--- NOTE | 2021-08-23 09:03 | EKG ---
Test Date: 2021-08-21 Test Time: 04:04:28 [employer] Operator: EYAL MEASUREMENT RESULTS: Intervals: Rate: 85 WA: 134 QRSD: 80 QT: 358 QTc: 426 [place]: P: 32 WA: 134 QRS: 41 T: 49 INTERPRETIVE STATEMENTS: Normal sinus rhythm Normal ECG Compared to ECG 06/08/2021 17:03:03 Sinus tachycardia no longer present Electronically Signed On 08-23-21 08:57:52 CDT by Brent Bradford
== END 2021-08-21 06:40 | disposition home or self-care (01) ==
LOC: ER 23:38
DX: U07.1 COVID-19 (principal); I10 Essential (primary) hypertension; Z21 Asymptomatic human immunodeficiency virus [HIV] infection status; Z88.5 Allergy status to narcotic agent; Z91.048 Other nonmedicinal substance allergy status
CPT/HCPCS: 93005; 85025; 80048; 36415; 83735; 85610; 85379; 80076; 84484; 82728; 86140; 71045; 96374; 99284; J7050

== ENCOUNTER 2022-07-05 10:10 | Emergency (ER) | payer BC ==
--- OUTSIDE RECORDS SUMMARY | 2022-07-05 10:18 | XMS REPORT | Continuity of Care Document ---
:1980 Author Organization [facility] t Address [address] [place] [place] [address] Care Team Providers Name Role Phone Lesly Lea MD Primary Care Physician [email or web address] Attending Clinician Unavailable DAVE SMITH Attending Clinician Unavailable Chari Siddiqi MD Attending Clinician [phone] Dave Lam Attending Clinician Rupert Tiwari Attending Clinician [phone] Derick Wilder Attending Clinician Unavailable Dc Guerrero Attending Clinician [phone] Lizy Mcgregor Attending Clinician [phone] Caterina Palafox Attending Clinician Unavailable Nestor Guzman Attending Clinician [phone] Ashlee Verdugo Attending Clinician Unavailable Kiel Billy Attending Clinician Unavailable Shirley Encarnacion Attending Clinician [phone] Amanda Fuentes Attending Clinician [phone] Yolie Santiago Attending Clinician Unavailable Rupert Tiwari Unavailable [phone] Dc Guerrero Unavailable [phone] Casa Riggs Unavailable [phone] Payers Payer Name Policy Type Policy Number Effective Date Expiration Date S chetna Sliding Fee - Cat P [id number] 2019 2020 3 00:00:00 00:00:00 Sliding Fee - Cat P [id number] 2017 3 00:00:00 [facility] NIYAH FARIAS [id number] 2021 ADVANTAGE HMO 00:00:00 AGENCY GENERIC [id number] 2022 2022 00:00:00 00:00:00 Problems Condition Condition Condition Status Onset Resolution Last Treating Co mments Source Name Details Category Date Date Treatment Clinician Date abscess, Condition Active 2019-04-26 Adair Tiwari perianal 04-26 16:07:35 Rupert Clark i 00:00: ty 00 Health Diabetes Condition Active 2017-12-21 Adair Tiwari mellitus, 04-17 10:15:14 Rupert Commu ni type II 00:00: ty 00 Health Hyperlipid Condition Active 2015-112017-07-20 Adair Tiwari emia 11-21 20:06:19 Rupert Garcia 00:00: ty 00 Health Preventive Condition Active 2015-112017-04-17 Adair Tiwari health 11-21 11:44:53 Rupert Garcia care 00:00: ty 00 Health ANXIETY Condition Active 2016-09-21 Samiuddin, [facility] DISORDER, 07-21 09:37:47 Dc Barajas ni UNSPECIFIE 00:00: ty D 00 Health Hallucinat Condition Active 2016-09-21 Samiuddin, [facility] ions 06-09 09:37:47 Dc Garcia 00:00: ty 00 Health HEPATITIS Condition Active 2017-04-17 Adair Tiwari B, CHRONIC 05-06 11:44:53 Rupert aleman 00:00: ty 00 Health PTSD Condition Active 2016-09-21 Michelleotilia L egacy 05-06 09:37:47 Rupert Garcia 00:00: ty 00 Health Intractabl Intractabl Disease Active U [place] e diarrhea e diarrhea 1-24 it y of 00:00: [place] 00 Medical Branch Hypertrigl Hypertrigl Disease Active U lidiaers yceridemia yceridemia 4-03 it y of 00:00: [place] 00 Medical Branch Depressive Depressive Disease Active Overview : Univers disorder disorder 9- Formattin ity of 00:00: g of this [place] 00 note Medical might be Branch different from the original. ICD10 Diagnosis Term Curtain Stitcher Utility History of History of Disease Active U [place] latent latent 4-25 ity of syphilis syphilis 00:00: [place] 00 Medical Branch Chronic Chronic Disease Recurre 2010-11 Lilian s hepatitis hepatitis nce 2-19 ity of B B 00:00: [place] 00 Medical Branch Herpes Herpes Disease Active Overview: Lilian s zoster zoster - Formattin ity of 00:00: g of this [place] 00 note Medical might be Branch different from the original. 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 04-06 it y of ciency ciency 00:00: [place] virus virus 00 Medical (HIV) (HIV) Branch disease disease Hypertensi Condition Active 2017-12-21 Adair Tiwari on 10:15:14 Rupert Garcia ty Health HIV Condition Active 2017-12-21 Karie, No OI's, Adair INFECTION 10:15:14 Rupert willie ~ Comm uni [...] Adair Tiwari e 12-17 00:00:00 10:53:58 Rupert Clark i 00:00: ty 00 Health ASTIGMATIS Condition Inactiv 2011-112016-05-06 2016-05-06 Nemecek, [facility] M e 2-11 00:00:00 10:53:58 Rupert Commun i 00:00: ty 00 Health Allergies, Adverse Reactions, Alerts Allergy Allergy Status Severity Reaction(s) Onset Inactive Treating Comm ents Source Name Type Date Date Clinician CODEINE Drug Active Low rash 2011- [facility] allergy Criticali 2-11 Commun i (disorde ty 00:00: ty r) 00 Health CODEINE DRUG Active High Rash Univers INGREDI 04-06 ity of 00:00: [place] 00 Medical Branch Codeine Propensi Active Rash 2010- Univers ty to 04-06 ity of adverse 00:00: [place] reaction 00 Medical s to Branch drug Social History Social Habit Start Date Stop Date Quantity Comments Source Exposure to 2022-04-13 2022-04-23 Not sure University SARS-CoV-2 (event) 00:00:00 07:57:00 [facility] Alcohol intake 2021-12-28 2021-12-28 Current University of 00:00:00 00:00:00 non-drinker of [facility] alcohol Branch (finding) albumin, serum 2019-11-02 2019-11-02 4.3 g/dL [facility] 11:10:00 11:10:00 Health drug use 2019-04-26 2019-04-26 Never [facility] ty 15:28:24 15:28:24 Health alcohol use 2019-04-26 2019-04-26 Currently [facility] ity 15:28:24 15:28:24 Health social history 2019-04-26 2019-04-26 reviewed today [facility] reviewed E&M 15:28:24 15:28:24 Health social history E&M 2019-04-26 2019-04-26 Single. Not [facility] [facility] 15:28:24 15:28:24 homeless. Born Health in [facility]. City: [place]. State: [place]. Employed full-time. [employer] . Highest education level: some college. Sex at : Male. Sexual orientation: [place]. Gender identity: Male. Gender of partner(s): Male. Age of first sexual intercourse: 16. Sexually Active: No. driven sexual orientation 2019-04-26 2019-04-26 [facility] 15:28:24 15:28:24 Health PHQ2 Questionairre 2019-04-26 2019-04-26 [facility] Score 15:28:24 15:28:24 Health assessment of health 2019-04-26 2019-04-26 Adequate [place] [facility] literacy (NC[facility] 15:28:24 15:28:24 Steve ross 2014 Standards, 3C10) time of call 2019-04-25 2019-04-25 04/25/2019 11:55 [facility] 11:55:04 11:55:04 AM Health smoking, advice to 2017-04-17 2017-04-17 Yes [facility] quit 10:47:27 10:47:27 Health cigarettes, number 2016-09-21 2016-09-21 [facility] smoked per day 09:13:37 09:13:37 Health age when patient 2016-09-14 2016-09-14 [facility] began smoking 10:38:38 10:38:38 Health tobacco use 2016-09-14 2016-09-14 Currently [facility] ity (cigarettes, cigar, 10:38:38 10:38:38 Steve ross chew, pipe) alcohol use, 2016-06-09 2016-06-09 few times per [facility] frequency 11:43:33 11:43:33 month Health home/family 2016-06-09 2016-06-09 LIves with [facility] ity situation, 11:43:33 11:43:33 sister and his Health assessment father and her 2 sons.Counts on them for work. family support 2016-06-09 2016-06-09 Grew up in a two [place] [facility] 11:43:33 11:43:33 parent family Health with a younger sister. Father was a [employer] employee and mother worked as a postal employee mother of scleroderma. Occupation #1 2016-05-06 2016-05-06 [employer] [facility] 09:53:46 09:53:46 Health alcohol use, number 2016-05-06 2016-05-06 9 drinks per [facility] Community maximum drinks per 09:53:46 09:53:46 month Health occasion smoking, year quit 2016-05-06 2016-05-06 [facility] 09:53:46 09:53:46 Health sex at 2016-05-06 2016-05-06 Male [facility] 09:53:46 09:53:46 Health patient considered 2016-05-06 2016-05-06 No [facility] to be homeless 09:53:46 09:53:46 Health Tobacco use and 2014-04-23 2014-04-23 Smokeless Universit y of exposure 00:00:00 00:00:00 tobacco non-user [facility] dical Branch Cigarettes smoked 2014-04-23 2014-04-23 Univers ity of current (pack per 00:00:00 [facility] - Reported Branch Cigarette pack-years 2014-04-23 2014-04-23 [facility] ersity of 00:00:00 00:00:00 [facility] History of tobacco 2013-12-07 Cigarette Smoker University of use 00:00:00 [facility] Sex Ass[birth year] At [birth year] Universit y of 00:00:00 00:00:00 [facility] Smoking Status Start Date Stop Date Source Smokes tobacco daily 2017-04-17 10:47:27 [facility] Health (finding) Occasional tobacco 2016-09-14 10:38:38 [facility] Vendalize smoker (finding) Ex-smoker 2014-04-23 00:00:00 2014-04-23 [place] o f [place] 00:00:00 Medical [place] [facility] [employer] (finding) Medications Ordered Filled Start Stop Current Ordering Indication Dosage Frequency Signature Comments Components Source Medication Medication Date Date Medication? Clinician (SIG) Name Name CELIA Yes USE [employer] HELEN 14 7- DIRECTED ity of DAY SENSOR 00:00: EVERY 14 Zaki as Kit DAYS Medical Branch [facility] Yes USE [employer] HELEN 14 7-05 DIRECTED ity of DAY SENSOR 00:00: EVERY 14 Zaki as Kit 00 DAYS Medical [facility] Yes [id number] INJECT U nivers 1.5 mg/0.5 6-09 1.5MG ity of mL PnIj 00:00: UNDER THE [place] SKIN Medical WEEKLY Branch [facility] Yes [id number] INJECT U nivers 1.5 mg/0.5 6-09 1.5MG ity of mL PnIj 00:00: UNDER THE [place] SKIN Medical WEEKLY Branch [facility] Yes [id number] INJECT U nivers 1.5 mg/0.5 6-09 1.5MG ity of mL PnIj 00:00: UNDER THE [place] 00 SKIN Medical WEEKLY Branch ODEFSEY 2021-0 Yes [id number] TAKE 1 Univ ers 200-25-25 3-07 TABLET BY ity o f mg Tab 00:00: MOUTH [place] 00 EVERY DAY Medical WITH FOOD Branch lisinopriL 2021-0 Yes [id number] TAKE 1 U nivers 20 mg 3-07 TABLET BY ity of tablet 00:00: MOUTH EVERY DAY Medical Branch metFORMIN 2021-0 Yes [id number] TAKE 1 U nivers 1,000 mg 3-07 TABLET BY ity of tablet 00:00: MOUTH 00 TWICE A Medical DAY Branch ODEFSEY 2021-0 Yes [id number] TAKE 1 Univ ers 200-25-25 3-07 TABLET BY ity o f mg Tab 00:00: MOUTH EVERY DAY Medical WITH FOOD Branch lisinopriL 2021-0 Yes [id number] TAKE 1 U nivers 20 mg 3-07 TABLET BY ity of tablet 00:00: MOUTH EVERY DAY Medical Branch metFORMIN 2021-0 Yes [id number] TAKE 1 U nivers 1,000 mg 3-07 TABLET BY ity of tablet 00:00: MOUTH 00 TWICE A Medical DAY Branch ODEFSEY 2021-0 Yes [id number] TAKE 1 Univ ers 200-25-25 3-07 TABLET BY ity o f mg Tab 00:00: MOUTH EVERY DAY Medical WITH FOOD Branch lisinopriL 2021-0 Yes [id number] TAKE 1 U nivers 20 mg 3-07 TABLET BY ity of tablet 00:00: MOUTH 00 EVERY DAY Medical Branch metFORMIN 2021-0 Yes [id number] TAKE 1 U nivers 1,000 mg 3-07 TABLET BY ity of tablet 00:00: MOUTH 00 TWICE A Medical DAY Branch FENOFIBRATE 2021-0 Yes [id number] TAKE ONE Univers 48 mg 3-04 TABLET BY ity of tablet 00:00: MOUTH [place] 00 DAILY Medical Branch FENOFIBRATE 2021-0 Yes [id number] TAKE ONE Univers 48 mg 3-04 TABLET BY ity of tablet 00:00: MOUTH 00 DAILY Medical Branch FENOFIBRATE 2021-0 Yes [id number] TAKE ONE Univers 48 mg 3-04 TABLET BY ity of tablet 00:00: MOUTH [place] 00 DAILY Medical Branch FENOFIBRATE 2021- No [id number] TAKE ONE Univers 48 mg 11-1104 TABLET BY ity of tablet 00:00: 00:00 MOUTH [place] 00 :00 DAILY Medical Branch FENOFIBRATE 2021- No [id number] TAKE ONE Univers 48 mg 11-11-04 TABLET BY ity of tablet 00:00: 00:00 MOUTH [place] 00 :00 DAILY Medical Branch ondansetron 2020-11 Yes [id number] 8mg Take 1 Univers (ZOFRAN 0-14 tablet by ity of ODT) 8 mg 00:00: mouth [place] disintegrat 00 every 8 Medic al ing tablet (eight) Branch hours as needed for Nausea and Vomiting (N/V). ondansetron 2020-11 Yes [id number] 8mg Take 1 Univers (ZOFRAN 0-14 tablet by ity of ODT) 8 mg 00:00: mouth [place] disintegrat 00 every 8 Medic al ing tablet (eight) Branch hours as needed for Nausea and Vomiting (N/V). ondansetron 2020-11 Yes [id number] 8mg Take 1 Univers (ZOFRAN 0-14 tablet by ity of ODT) 8 mg 00:00: mouth [place] disintegrat 00 every 8 Medic al ing tablet (eight) Branch hours as needed for Nausea and Vomiting (N/V). dulaglutide Yes [id number] 1.5mg inject 1.5 Univers (TRULICITY) 7-19 mg under ity of 1.5 mg/0.5 00:00: the skin Zaki as mL PnIj 00 weekly. Medical Branch dulaglutide Yes [id number] 1.5mg inject 1.5 Univers (TRULICITY) 7-19 mg under ity of 1.5 mg/0.5 00:00: the skin [place]aki as mL PnIj 00 weekly. Medical Branch dulaglutide 2021- No [id number] 1.5mg inject 1.5 Univers (TRULICITY) 7-19 06-09 mg under ity of 1.5 mg/0.5 00:00: 00:00 [place] mL PnIj 00 :00 weekly. Medical Branch flash Yes [id number] 1{kit} 1 Kit as U nivers glucose 6-21 needed (to ity of scanning 00:00: check [place] reader 00 glucose Medical (FREESTYLE levels). [facility] HELEN 14 DAY READER) [facility] flash Yes [id number] 1{kit} 1 Kit as U nivers glucose 6-21 needed (to ity of scanning 00:00: check [place] reader 00 glucose Medical (FREESTYLE levels). [facility] HELEN 14 DAY READER) [facility] flash Yes [id number] 1{kit} 1 Kit as U nivers glucose 6-21 needed (to ity of scanning 00:00: check [place] reader 00 glucose Medical (FREESTYLE levels). [facility] HELEN 14 DAY READER) [facility] flash Yes [id number] 1{kit} 1 Kit as U nivers glucose 6-21 needed (to ity of scanning 00:00: check [place] reader 00 glucose Medical (FREESTYLE levels). [facility] HELEN 14 DAY READER) [facility] flash Yes [id number] 1{kit} 1 Kit as U nivers glucose 6-21 needed (to ity of scanning 00:00: check [place] reader 00 glucose Medical (FREESTYLE levels). [facility] HELEN 14 DAY READER) [facility] emtricitab- 2021- No [id number] 200mg Take 200 Univers rilpivir-te 02-12 mg by ity of nofo ala 00:00: 00:00 mouth [place] (ODPORSHASEY) 00 :00 daily. Medical 200-25-25 Take one Branch mg Tab 200/25/25 mg tablet once daily with food lisinopriL 2021- No [id number] 1 po once Univers 20 mg 02-12 daily ity of tablet 00:00: 00:00 [place] 00 :00 Medical Branch metFORMIN 2020-2021- No [id number] 1 po BID Univers 1,000 mg 02-12 ity of tablet 00:00: 00:00 [place] 00 :00 Medical Branch emtricitab- 2020-2021- No [id number] 200mg Take 200 Univers rilpivir-te 02-12 mg by ity of nofo ala 00:00: 00:00 mouth [place] (ODEFSEY) 00 :00 daily. Medical 200-25-25 Take one Branch mg Tab 200/25/25 mg tablet once daily with food lisinopriL 2021- No [id number] 1 po once Univers 20 mg 02-12 daily ity of tablet 00:00: 00:00 [place] 00 :00 Medical Branch metFORMIN 2021- No [id number] 1 po BID Univers 1,000 mg 02-12 ity of tablet 00:00: 00:00 [place] 00 : Medical Branch lamoTRIgine Yes 25mg Take 25 mg Univers 25 mg 4-01 by mouth ity of tablet 00:00: daily. Medical Branch lamoTRIgine Yes 25mg Take 25 mg Univers 25 mg 4-01 by mouth ity of tablet 00:00: daily. Medical Branch lamoTRIgine Yes 25mg Take 25 mg Univers 25 mg 4-01 by mouth ity of tablet 00:00: daily. [place] Medical Branch COMPLERA 2018-11 Yes Rupert TAKE ONE [facility] (EMTRICITAB 1-27 [place] TABLET BY Communi -RILPIVIR-T 00:00: MOUTH ONCE ty ENOFOVIR) 00 DAILY WITH [facility] 200-25-300 FOOD. MG TABS STORE IN ORIGINAL BOTTLE AT ROOM TEMPERATUR E. (LISINOPRIL Yes Rupert 1{Table 1xD TAKE 1 L egacy ) 20 MG 7-15 Nemecek t} TABLET BY Comm uni TABS 00:00: MOUTH ty 00 EVERY DAY Health ANTABUSE 2017-11 Yes Ziperryan 1 1xD 1 By Mouth L egacy 250 MG ORAL 2-20 Samiuddin Every Day Communi TABLET 00:00: ty 00 Health (METFORMIN Yes Rupert 1 by mouth L egacy HCL) 500 MG 6-12 [place] twice a Co mmuni TABS 00:00: day ty 00 Health (NICOTINE) 2015-11 Yes [facility] 21-14-7 1-25 Communi MG/24HR KIT 00:00: ty 00 Health LEXAPRO Yes Zishan 1 By Mouth Le g[place] (ESCITALOPR 9-15 Samiuddin Every Day Communi AM OXALATE) 00:00: ty 10 MG TABS 00 Health RISPERDAL No Robby 1 By Mouth L egacy (RISPERIDON 06-09 Masters at bedtime Communi E) 2 MG 00:00: 00:00 ty TABS 00 :00 Health MIRTAZAPINE 2011- 2018- No [place] [facility] (MIRTAZAPIN 12-17 Communi E TABS) 00:00: 00:00 ty TABS 00 :00 Health Immunizations Ordered Immunization Filled Immunization Date Status Commen ts Source Name Name Meningococcal 2022-04-25 Completed University of Polysaccharide 00:00:00 [place] Medi richard (groups A, C, Y and Branc h W-135) conjugate vaccine (MCV4P) Meningococcal 2022-04-25 Completed University of Polysaccharide 00:00:00 [place] Medi richard (groups A, C, Y and Branc h W-135) conjugate vaccine (MCV4P) SARS-COV-2 COVID-19 2021-09-14 Completed Unive rsity of MODERNA 0.25ML 00:00:00 [place] Medi richard BOOSTER VACCINE Branch SARS-COV-2 COVID-19 2021-09-14 Completed Unive rsity of MODERNA 0.25ML 00:00:00 [place] Medi richard BOOSTER VACCINE Branch SARS-COV-2 COVID-19 2021-09-14 Completed Unive rsity of MODERNA 0.25ML 00:00:00 [place] Medi richard BOOSTER VACCINE Branch SARS-COV-2 COVID-19 2021-09-14 Completed Unive rsity of MODERNA 0.25ML 00:00:00 [place] Medi richard BOOSTER VACCINE Branch SARS-COV-2 COVID-19 2021-09-14 Completed Unive rsity of MODERNA 0.25ML 00:00:00 [place] Medi richard BOOSTER VACCINE Branch Influenza Virus 2021-08-11 Completed Universit y of Vaccine Quad IM 6-35 00:00:00 Zaki s Medical MO Branch Influenza Virus 2021-08-11 Completed Universit y of Vaccine Quad IM, 00:00:00 [place] Me dical Preserv and ABX Free Bran ch 6 MO-64 YRS Pneumococcal 2021-08-11 Completed University o f Polysaccharide, 00:00:00 [place] Med ical PPSV23 (PNEUMOVAX) Branch Influenza Virus 2021-08-11 Completed Universit y of Vaccine Quad IM 6-35 00:00:00 [facility] Influenza Virus 2021-08-11 Completed Universit y of Vaccine Quad IM, 00:00:00 [facility] dical Preserv and ABX Free Bran ch 6 MO-64 YRS Pneumococcal 2021-08-11 Completed University o f Polysaccharide, 00:00:00 [place] Med ical PPSV23 (PNEUMOVAX) Branch Influenza Virus 2021-08-11 Completed Universit y of Vaccine Quad IM 6-35 00:00:00 [facility] Influenza Virus 2021-08-11 Completed Universit y of Vaccine Quad IM, 00:00:00 [facility] dical Preserv and ABX Free Bran ch 6 MO-64 YRS Pneumococcal 2021-08-11 Completed University o f Polysaccharide, 00:00:00 [place] Med ical PPSV23 (PNEUMOVAX) Branch Influenza Virus 2021-08-11 Completed Universit y of Vaccine Quad IM 6-35 00:00:00 [facility] Influenza Virus 2021-08-11 Completed Universit y of Vaccine Quad IM, 00:00:00 [facility] dical Preserv and ABX Free Bran ch 6 MO-64 YRS Pneumococcal 2021-08-11 Completed University o f Polysaccharide, 00:00:00 [place] Med ical PPSV23 (PNEUMOVAX) Branch Influenza Virus 2021-08-11 Completed Universit y of Vaccine Quad IM 6-35 00:00:00 [facility] Influenza Virus 2021-08-11 Completed Universit y of Vaccine Quad IM, 00:00:00 [facility] dical Preserv and ABX Free Bran ch 6 MO-64 YRS Pneumococcal 2021-08-11 Completed University o f Polysaccharide, 00:00:00 [place] Med ical PPSV23 (PNEUMOVAX) Branch Influenza Virus 2019-09-18 Completed Universit y of Vaccine 00:00:00 [facility] Influenza Virus 2019-09-18 Completed Universit y of Vaccine 00:00:00 [facility] Influenza Virus 2019-09-18 Completed Universit y of Vaccine 00:00:00 [facility] Influenza Virus 2019-09-18 Completed Universit y of Vaccine 00:00:00 [facility] Influenza Virus 2019-09-18 Completed Universit y of Vaccine 00:00:00 [facility] flu vax 2018-07-07 Completed [facility] ty 10:03:13 Health flu vax 2017-09-06 Completed [facility] ty 11:35:57 Health pneumovax 2017-07-20 Completed [facility] ty 12:39:39 Health flu vax 2016-09-21 Completed [facility] ty 09:13:37 Health pneumped1 2016-05-06 Completed [facility] ty 09:53:46 Health Pneumococcal 13 2014-09-17 Completed Universit y of Conjugate, PCV13 00:00:00 [place] Me dical (Prevnar 13) [place] Influenza Virus 2014-09-17 Completed Universit y of Vaccine Quad IM 3+ 00:00:00 [facility] Pneumococcal 13 2014-09-17 Completed Universit y of Conjugate, PCV13 00:00:00 [place] Me dical (Prevnar 13) [place] Influenza Virus 2014-09-17 Completed Universit y of Vaccine Quad IM 3+ 00:00:00 [facility] Pneumococcal 13 2014-09-17 Completed Universit y of Conjugate, PCV13 00:00:00 [place] Me dical (Prevnar 13) [place] Influenza Virus 2014-09-17 Completed Universit y of Vaccine Quad IM 3+ 00:00:00 [facility] Pneumococcal 13 2014-09-17 Completed Universit y of Conjugate, PCV13 00:00:00 [place] Me dical (Prevnar 13) [place] Influenza Virus 2014-09-17 Completed Universit y of Vaccine Quad IM 3+ 00:00:00 [facility] Pneumococcal 13 2014-09-17 Completed Universit y of Conjugate, PCV13 00:00:00 [facility] dical (Prevnar 13) [place] Influenza Virus 2014-09-17 Completed Universit y of Vaccine Quad IM 3+ 00:00:00 [facility] HEPATITIS A 2014-04-23 Completed University of 00:00:00 [facility] HEPATITIS A 2014-04-23 Completed University of 00:00:00 [facility] HEPATITIS A 2014-04-23 Completed University of 00:00:00 [facility] HEPATITIS A 2014-04-23 Completed University of 00:00:00 [facility] HEPATITIS A 2014-04-23 Completed University of 00:00:00 [facility] PPD (TB) 2012-08-01 Completed University of 00:00:00 [facility] Influenza Virus 2012-08-01 Completed Universit y of Vaccine 00:00:00 [facility] PPD (TB) 2012-08-01 Completed University of 00:00:00 [facility] Influenza Virus 2012-08-01 Completed Universit y of Vaccine 00:00:00 [facility] PPD (TB) 2012-08-01 Completed University of 00:00:00 [facility] Influenza Virus 2012-08-01 Completed Universit y of Vaccine 00:00:00 [facility] PPD (TB) 2012-08-01 Completed University of 00:00:00 [facility] Influenza Virus 2012-08-01 Completed Universit y of Vaccine 00:00:00 [facility] PPD (TB) 2012-08-01 Completed University of 00:00:00 [facility] Influenza Virus 2012-08-01 Completed Universit y of Vaccine 00:00:00 [facility] Influenza Virus 2011-07-25 Completed Universit y of Vaccine 00:00:00 [facility] Influenza Virus 2011-07-25 Completed Universit y of Vaccine 00:00:00 [facility] Influenza Virus 2011-07-25 Completed Universit y of Vaccine 00:00:00 [facility] Influenza Virus 2011-07-25 Completed Universit y of Vaccine 00:00:00 [facility] Influenza Virus 2011-07-25 Completed Universit y of Vaccine 00:00:00 [facility] TDAP (ADACEL) VACCINE 2011-04-19 Completed Uni versity of 00:00:00 [facility] Pneumococcal 2011-04-19 Completed University o f Polysaccharide, 00:00:00 [place] Med ical PPSV23 (PNEUMOVAX) Branch PPD (TB) 2011-04-19 Completed University of 00:00:00 [facility] TDAP (ADACEL) VACCINE 2011-04-19 Completed Uni versity of 00:00:00 [facility] Pneumococcal 2011-04-19 Completed University o f Polysaccharide, 00:00:00 [place] Med ical PPSV23 (PNEUMOVAX) Branch PPD (TB) 2011-04-19 Completed University of 00:00:00 [facility] TDAP (ADACEL) VACCINE 2011-04-19 Completed Uni versity of 00:00:00 [facility] Pneumococcal 2011-04-19 Completed University o f Polysaccharide, 00:00:00 [place] [facility] PPSV23 (PNEUMOVAX) Branch PPD (TB) 2011-04-19 Completed [facility] 00:00:00 [facility] TDAP (ADACEL) VACCINE 2011-04-19 Completed Uni versity of 00:00:00 [facility] Pneumococcal 2011-04-19 Completed University o f Polysaccharide, 00:00:00 [place] [facility] PPSV23 (PNEUMOVAX) Branch PPD (TB) 2011-04-19 Completed [facility] of 00:00:00 [facility] TDAP (ADACEL) VACCINE 2011-04-19 Completed Uni versity of 00:00:00 [facility] Pneumococcal 2011-04-19 Completed University o f Polysaccharide, 00:00:00 [place] [facility] PPSV23 (PNEUMOVAX) Branch PPD (TB) 2011-04-19 Completed [facility] 00:00:00 [facility] PPD (TB) 2010-07-02 Completed [facility] of 00:00:00 [facility] PPD (TB) 2010-07-02 Completed [facility] of 00:00:00 [facility] PPD (TB) 2010-07-02 Completed University of 00:00:00 [facility] PPD (TB) 2010-07-02 Completed University of 00:00:00 [facility] PPD (TB) 2010-07-02 Completed [facility] of 00:00:00 [facility] HEPATITIS A 2010-01-08 Completed University of 00:00:00 [facility] HEPATITIS A 2010-01-08 Completed University of 00:00:00 [facility] HEPATITIS A 2010-01-08 Completed University of 00:00:00 [facility] HEPATITIS A 2010-01-08 Completed University of 00:00:00 [facility] HEPATITIS A 2010-01-08 Completed University of 00:00:00 [facility] HEPATITIS A 2009-04-16 Completed [facility] of 00:00:00 [facility] Pneumococcal 2009-04-16 Completed University o f Polysaccharide, 00:00:00 [place] [facility] PPSV23 (PNEUMOVAX) Branch TDAP 2009-04-16 Completed [facility] of 00:00:00 [facility] HEPATITIS A 2009-04-16 Completed [facility] of 00:00:00 [facility] Pneumococcal 2009-04-16 Completed University o f Polysaccharide, 00:00:00 [place] [facility] PPSV23 (PNEUMOVAX) Branch TDAP 2009-04-16 Completed [facility] of 00:00:00 [facility] HEPATITIS A 2009-04-16 Completed [facility] of 00:00:00 [facility] Pneumococcal 2009-04-16 Completed University o f Polysaccharide, 00:00:00 [place] [facility] PPSV23 (PNEUMOVAX) Branch TDAP 2009-04-16 Completed [facility] of 00:00:00 [facility] HEPATITIS A 2009-04-16 Completed [facility] of 00:00:00 [facility] Pneumococcal 2009-04-16 Completed University o f Polysaccharide, 00:00:00 [place] [facility] PPSV23 (PNEUMOVAX) Branch TDAP 2009-04-16 Completed [facility] of 00:00:00 [facility] HEPATITIS A 2009-04-16 Completed [facility] of 00:00:00 [facility] Pneumococcal 2009-04-16 Completed University o f Polysaccharide, 00:00:00 [place] [facility] PPSV23 (PNEUMOVAX) Branch TD 2009-04-16 Completed [facility] of 00:00:00 [facility] Vital Signs Vital Name Observation Time Observation Value Comments Source Systolic blood 2021-12-28 22:18:00 150 mm[Hg] [facility] Diastolic blood 2021-12-28 22:18:00 91 mm[Hg[facility] 2021-12-28 22:18:00 85 /min [facility] Body temperature 2021-12-28 22:16:00 36.78 Christin [facility] Respiratory rate 2021-12-28 22:16:00 16 /min [facility] Body height 2021-12-28 22:16:00 165.1 cm [facility] Body weight 2021-12-28 22:16:00 67.586 kg [facility] BMI 2021-12-28 22:16:00 24.79 kg/m2 [facility] temperature E&M 2019-04-26 15:28:24 98.1 [degF] [facility] blood pressure, 2019-04-26 15:28:24 98 mm[Hg] [facility] diastolic Health blood pressure, 2019-04-26 15:28:24 144 mm[Hg] [facility] systolic Health pulse rate 2019-04-26 15:28:24 112 /min [facility], 2019-04-26 15:28:24 98 /min Mala riojas [facility] oximetry Health weight E&M 2019-04-26 15:28:24 145 [lb_av] [facility] weight in kilograms 2019-04-26 15:28:24 65.91 kg L [facility] E& Health height in 2019-04-26 15:28:24 165.10 cm [facility] centimeters E&M Health temperature site 2019-04-26 15:28:24 oral Lega cy [facility] Health blood pressure, 2018-12-24 09:50:41 99 mm[Hg] [facility] y [facility] diastolic Health blood pressure, 2018-12-24 09:50:41 155 mm[Hg] [facility] systolic Health pulse rate 2018-12-24 09:50:41 91` /min [facility] weight E&M 2018-12-24 09:50:41 157 [lb_av] [facility] weight in kilograms 2018-12-24 09:50:41 71.36 kg L [facility] E& Health height in 2018-12-24 09:50:41 165.10 cm [facility] centimeters [facility] blood pressure, 2018-12-21 09:56:09 86 mm[Hg] [facility] y [facility] diastolic Health blood pressure, 2018-12-21 09:56:09 136 mm[Hg] [facility] y [facility] systolic Health weight E&M 2018-12-21 09:56:09 153 [lb_av] [facility] weight in kilograms 2018-12-21 09:56:09 69.55 kg L [facility] E& Health oxygen saturation, 2018-12-21 09:56:09 98 /min [facility] oximetry Health respiratory rate E&M 2018-12-21 09:56:09 16 /min [facility] Health pulse rate 2018-12-21 09:56:09 102 /min [facility] Health temperature E&M 2018-12-21 09:56:09 98.1 [degF] [facility] Health height in 2018-12-21 09:56:09 165.10 cm [facility] centimeters [facility]&M Health temperature site 2018-12-21 09:56:09 oral Lega [facility] Health blood pressure, 2018-10-25 11:52:22 89 mm[Hg] [facility] diastolic Health blood pressure, 2018-10-25 11:52:22 166 mm[Hg] [facility] y [facility] systolic Health pulse rate 2018-10-25 11:52:22 83 /min [facility] weight E&M 2018-10-25 11:52:22 161 [lb_av] [facility] weight in kilograms 2018-10-25 11:52:22 73.18 kg L [facility] E&M Health height in 2018-10-25 11:52:22 165.10 cm [facility] centimeters [facility] blood pressure, 2017-12-21 10:04:46 90 mm[Hg] [facility] y [facility] diastolic Health blood pressure, 2017-12-21 10:04:46 139 mm[Hg] [facility] y [facility] systolic Health respiratory rate E&M 2017-12-21 10:04:46 16 /min [facility] Health pulse rate 2017-12-21 10:04:46 66 /min [facility] oxygen saturation, 2017-12-21 10:04:46 98 /min [facility] oximetry Health temperature E&M 2017-12-21 10:04:46 98.1 [degF] [facility] y [facility] Health height in 2017-12-21 10:04:46 165.10 cm [facility] centimeters [facility]M Health weight E&M 2017-12-21 10:04:46 161 [lb_av] [facility] weight in kilograms 2017-12-21 10:04:46 73.18 kg L [facility] E&M Health temperature site 2017-12-21 10:04:46 tympanic Lega cy [facility] Health blood pressure, 2017-07-20 12:39:39 87 mm[Hg] [facility] y [facility] diastolic Health blood pressure, 2017-07-20 12:39:39 138 mm[Hg] [facility] systolic Health pulse rate 2017-07-20 12:39:39 76 /min [facility] respiratory rate E&M 2017-07-20 12:39:39 16 /min [facility] Health oxygen saturation, 2017-07-20 12:39:39 97 /min [facility] oximetry Health temperature E&M 2017-07-20 12:39:39 98.7 [degF] [facility] Health weight E&M 2017-07-20 12:39:39 161.80 [lb_av] [facility] weight in kilograms 2017-07-20 12:39:39 73.55 kg L [facility] E& Health height in 2017-07-20 12:39:39 165.10 [facility] temperature site 2017-07-20 12:39:39 tympanic Lega [facility] Health blood pressure, 2017-04-17 10:47:27 100 mm[Hg] [facility] diastolic Health blood pressure, 2017-04-17 10:47:27 138 mm[Hg] [facility] systolic Health pulse rate 2017-04-17 10:47:27 103 /min [facility] Health respiratory rate E&M 2017-04-17 10:47:27 16 /min [facility] oxygen saturation, 2017-04-17 10:47:27 98 /min [facility] oximetry Health temperature E&M 2017-04-17 10:47:27 99.5 [degF] [facility] 2017-04-17 10:47:27 151 [facility]lb[facility]av[facility] in [facility] 2017-04-17 10:47:27 68.64 kg L [facility] E& Health height in 2017-04-17 10:47:27 165.10 cm [facility] centimeters [facility]M Health temperature site 2017-04-17 10:47:27 tympanic Lega [facility] Health blood pressure, 2016-10-20 10:15:15 88 mm[Hg] [facility] diastolic Health blood pressure, 2016-10-20 10:15:15 135 mm[Hg] [facility] systolic Health pulse rate 2016-10-20 10:15:15 92 /min [facility] weight E&M 2016-10-20 10:15:15 175.13 [lb_av] [facility] Health weight in kilograms 2016-10-20 10:15:15 79.60 kg L [facility] E& Health height in 2016-10-20 10:15:15 165.10 cm [facility] centimeters [facility] Health blood pressure, 2016-09-21 09:13:37 80 mm[Hg] [facility] diastolic Health blood pressure, 2016-09-21 09:13:37 130 mm[Hg] [facility] systolic Health pulse rate 2016-09-21 09:13:37 85 /min [facility] oxygen saturation, 2016-09-21 09:13:37 98 /min Mala riojas [facility] oximetry Health temperature E&M 2016-09-21 09:13:37 97.5 [degF] [facility] Health weight E&M 2016-09-21 09:13:37 175 [lb_av] [facility] weight in kilograms 2016-09-21 09:13:37 79.55 kg L [facility] E&M Health height in 2016-09-21 09:13:37 165.10 cm [facility] centimeters [facility] Health temperature site 2016-09-21 09:13:37 tympanic Lega cy [facility] Health blood pressure, 2016-07-21 12:17:59 87 mm[Hg] [facility] y [facility] diastolic Health blood pressure, 2016-07-21 12:17:59 138 mm[Hg] [facility] systolic Health pulse rate 2016-07-21 12:17:59 96 /min [facility] Health weight E&M 2016-07-21 12:17:59 175.25 [lb_av] [facility] weight in kilograms 2016-07-21 12:17:59 79.66 kg L [facility] E& Health height in 2016-07-21 12:17:59 165.10 cm [facility] centimeters [facility] blood pressure, 2016-06-09 11:43:33 90 mm[Hg] [facility] diastolic Health blood pressure, 2016-06-09 11:43:33 132 mm[Hg] [facility] systolic Health pulse rate 2016-06-09 11:43:33 89 /min [facility] height in 2016-06-09 11:43:33 165.10 cm [facility] centimeters [facility] blood pressure, 2016-05-06 09:53:46 84 mm[Hg] [facility] diastolic Health blood pressure, 2016-05-06 09:53:46 132 mm[Hg] [facility] Health pulse rate 2016-05-06 09:53:46 97 /min [facility] Health temperature E&M 2016-05-06 09:53:46 97.5 [degF] [facility] oxygen saturation, 2016-05-06 09:53:46 98 /min [facility] oximetry Health weight E&M 2016-05-06 09:53:46 181.60 [lb_av] [facility] weight in kilograms 2016-05-06 09:53:46 82.55 kg L [facility] E&M Health height in 2016-05-06 09:53:46 165.10 cm [facility] centimeters [facility]M Health temperature site 2016-05-06 09:53:46 tympanic Lega [facility] Procedures Procedure Date / Time Performing Clinician Source Performed Spherocyl, SV, plano to +/- 2017-11-26 11:18:56 Ashlee Verdugo [facility] 4.00d sphere, 0.12 to 2.00d Heal th cyl, per lens Frames, purchases 2017-11-26 11:18:34 Ashlee Verdugo [facility] Est Patient Intermediate 2017-11-24 11:18:26 Nestor Guzman [facility] [address] [facility] Primary Care Medical Case 2017-02-23 17:27:29 Kasia Betancur [facility] Primary Care Medical Case 2017-02-16 17:56:43 Kasia Betancur [facility] Primary Care Medical Case 2017-02-13 18:42:43 Kasia Betancur [facility] Health Dispensing Visit (UNLIVSTED 2016-07-21 09:54:30 Shirley Encarnacion [facility] OPHTHALMOLOGICAL Health SERVICE/PROCEDURE) Primary Care Medical Case 2016-07-05 19:13:18 Kasia Betancur [facility] Primary Care Medical Case 2016-07-04 17:24:31 Kasia Betancur [facility] Health Frames, purchases 2016-06-14 10:10:24 Shirley Encarnacion [facility] Health Spherocyl, SV, plano to +/- 2016-06-14 10:09:52 Shirley Encarnacion [facility] 4.00d sphere, 0.12 to 2.00d Heal th cyl, per lens Diagnostic evaluation with 2016-06-09 13:54:25 Dc Guerrero [facility] [id number] Health Est Patient Intermediate 2016-06-09 09:55:53 Casa Riggs [facility] 8[address] Health Est Patient Intermediate 2016-06-09 09:13:24 Nestor Guzman [facility] [id number] [place] [address] Primary Care Medical Case 2016-05-19 16:23:45 Pipe Kasia Le [facility] Primary Care Medical Case 2016-05-18 18:11:23 Pipe Kasia Le [facility] Primary Care Medical Case 2016-05-17 17:22:38 [facility] Medical Case 2016-05-13 16:51:20 Pipe [facility] Primary [facility] Medical Case 2016-05-12 17:31:08 Pipe Kasia Le shine [facility] - 2016-05-12 14:26:13 Kasia Betancur ommunity Psychiatry [facility] Primary Care - Service 2016-05-06 13:01:29 Kasia Betancur y [facility] Primary Care - 2016-05-06 13:01:29 Kasia Betancuru nity Assesment-Comprehensive [facility] Primary Care Medical Case 2016-05-06 13:01:29 Kasia Betancur ericakeya [facility] - 2016-05-06 10:34:33 Rupert Tiwari ommunity Psychiatry Health Dispensing Visit (UNLIVSTED 2012-10-25 13:23:10 Shirley Encarnacion [facility] OPHTHALMOLOGICAL Health SERVICE/PROCEDURE) Frames, purchases 2012-10-16 16:24:53 Shirley Encarnacion Ms [facility]ity Health Spherocyl, SV, plano to +/- 2012-10-16 16:24:23 Shirley Encarnacion [facility] 4.00d sphere, 0.12 to 2.00d Heal th cyl, per lens Est Patient Intermediate 2012-10-16 16:00:28 Casa Riggs [facility] [address] [facility] New Patient Intermediate 2012-10-16 15:26:36 Nestor Guzman [facility] [address] [facility] Encounters Start End Encounter Admission Attending Care Care Encounter Source Date/Time Date/Time Type Type Clinicians Facility Department ID 2021-08-22 Outpatient [email or web address] [facility] [id number] [facility] 11:53:14 [id number] [facility] 2021-08-22 Outpatient [email or web address] [facility] [id number] [facility] 11:24:01 [id number] [facility] 2021-08-19 Outpatient [email or web address] [facility] [id number] [facility] 21:31:10 [id number] [facility] 2021-08-19 [email or web address] [id number] [facility] 20:07:41 [id number] [facility] 2021-08-19 [email or web address] [id number] [facility] 20:00:57 [id number] [facility] 2022-07-25 2022-07-25 Outpatient [facility] [id number] Univers 14:30:00 14:30:00 DAVE [id number] [facility] 2022-07-25 2022-07-25 Outpatient [facility] [id number] Univers 14:30:00 14:30:00 DAVE [facility] 2022-05-30 2022-05-30 CAMACHO Nolan [id number] Univers 00:00:00 00:00:00 [facility] [id number] ity [facility] [id number] Fly goodson [id number] [address] 2022-05-11 2022-05-11 Outpatient [facility] [id number] Univers 00:00:00 00:00:00 DAVE [id number] [facility] 2022-05-11 2022-05-11 Outpatient [facility] [id number] Univers 00:00:00 00:00:00 DAVE [facility] 2022-05-02 2022-05-02 [facility] [id number] Univers 00:00:00 00:00:00 Chari A Y HEALTH [id number] ity [id number] [id number] [address] 2022-04-25 2022-04-25 Outpatient R [facility] [id number] Univers 14:00:00 14:00:00 [place] [id number] [facility] 2022-04-25 2022-04-25 Outpatient R [facility] [id number] Univers 14:00:00 14:00:00 [facility] 2022-04-19 2022-04-19 Outpatient R [facility] [id number] Univers 10:30:00 10:30:00 [place] [id number] [facility] 2022-04-05 2022-04-05 [facility], [facility] [id number] Univers 00:00:00 00:00:00 Chari Smith HEALTH [id number] [id number] [address] 2022-03-29 2022-03-29 Outpatient R [facility] [id number] Univers 14:00:00 14:00:00 [place] [id number] [facility] 2022-03-29 2022-03-29 Outpatient R [facility] [id number] Univers 14:00:00 14:00:00 [facility] 2021-12-28 2021-12-28 Office [facility], [facility] [id number] Univers 16:30:00 17:00:00 Visit Dave HEALTH [id number] i ty of [id number] [id number] [address] 2021-11-30 2021-11-30 [facility] [id number] Univers 11:30:00 11:30:00 DAVE keya [facility] 2021-05-24 2021-05-24 Office CAMACHO Smith [id number] 09:45:39 10:15:39 Visit Dave [facility] [id number] [facility] [id number] 2019-04-26 2019-04-26 [facility] 1533 [id number] Legacy 00:00:00 00:00:00 Visit Derick Wilder 11137 [facility] Vend[facility] 2018-12-24 2018-12-24 Office Dc Guerrero [facility] [id number] Legacy 00:00:00 00:00:00 Visit Lizy Mcgregor [id number] [facility] 2018-12-21 2018-12-21 Office Rupert Tiwari [facility] 1533 [id number] Legacy 00:00:00 00:00:00 Visit PalafoxCaterina 47637 [facility] 2018-10-25 2018-10-25 Office Dc Guerrero [facility] [id number] Legacy 00:00:00 00:00:00 Visit Balbir Lizy 13267 [facility] Health 2017-12-21 2017-12-21 Office Rupert Tiwari [facility] 1533 [id number] Legacy 00:00:00 00:00:00 Visit PalafoxCaterina 50436 [facility] 2017-11-24 2017-11-24 Office Nestor Guzman [facility] [id number] Legacy 00:00:00 00:00:00 Visit Ashlee Verdugo 43255 [facility] 2017-07-20 2017-07-20 Office Rupert Tiwari [facility] 1533 [id number] Legacy 00:00:00 00:00:00 Visit PalafoxCaterina 29254 [facility] 2017-04-17 2017-04-17 [facility] 15[facility] [id number] Legacy 00:00:00 00:00:00 Visit Caterina Palafox 072[address] [facility] 2016-10-20 2016-10-20 Office Dc Guerrero [facility] [id number] Legacy 00:00:00 00:00:00 Visit Kiel Billy 09075 [facility] 2016-09-21 2016-09-21 Office Rupert Tiwari [facility] 1533 [id number] Legacy 00:00:00 00:00:00 Visit Caterina Palafox 19344 [facility] 2016-07-21 2016-07-21 Office Dc Guerrero [facility] [id number] Legacy 00:00:00 00:00:00 Visit Kiel Billy 54544 [facility] 2016-06-09 2016-06-09 Office Nestor Guzman [facility] [id number] Legacy 00:00:00 00:00:00 Visit Shirley Encarnacion 82128 [facility] 2016-05-06 2016-05-06 Office Rupert Tiwari [facility] 1533 [id number] Legacy 00:00:00 00:00:00 Visit [facility] Fuentes 6[address] [facility] Results Test Description Test Time Test Comments Results Result Comments Source Treponema pallidum antibodies, by particle agglutination 07-18-28 11:10:00 Test Item Value Reference Range Interpretation Comme nts Treponema pallidum antibodies, by particle agglutination Reactiv e Non Reactive A (test code = 43092-3) [facility] [id number] 11:10:00 Test Item Value Reference Range Interpretation Comments LDL cholesterol, serum (test code = 89 mg/dL 0-99 2088-1) [facility], [id number] 11:10:00 Test Item Value Reference Range Interpretation Comments HDL cholesterol, serum (test code = 29 mg/dL >39 L 2084-9) [facility], serum, [id number] 11:10:00 Test Item Value Reference Range Interpretation Comments triglyceride, serum, fasting (test 272 mg/dL 0-149 H code = 2571-8) [facility] [id number] 11:10:00 Test Item Value Reference Range Interpretation Comments cholesterol, serum (test code = 172 mg/dL 251-954 1282-3) [facility] cells (CD4) as percent of blood lymphocytes 2019-11-02 11:10:00 Test Item Value Reference Range Interpretation Comments T-helper cells (CD4) as percent of 37.8 % 30.8-58.5 blood lymphocytes (test code = 8123-2) [facility] cells (CD4) [id number] 11:10:00 Test Item Value Reference Range Interpretation Comments T-helper cells (CD4) count (test code 605 /UL 359-1519 = 02678-8) [facility]-suppressor cells (CD8) as percent of blood lymphocytes 2019-11-02 11:10:00 Test Item Value Reference Range Interpretation Comments T-suppressor cells (CD8) as percent of 46.6 % 12.0-35.5 H blood lymphocytes (test code = 3517) [facility] [id number] 11:10:00 Test Item Value Reference Range Interpretation Comments absolute CD8 (test code = 746 (unknown unit) 109-042 11169) [facility] Creek[facility] plasma reagin antibody, [id number] 11:10:00 Test Item Value Reference Range Interpretation Comments rapid plasma reagin 1:2 See_Comment H [Automa stefany message] The antibody, serum (test system which generated code = 5291-0) this result t ransmitted reference range : NonRea<1:1. The reference range was not u sed to interpret this result as normal/abnormal . [facility]-1RNA, serum, by PCR, [id number] 11:10:00 Test Item Value Reference Range Interpretation Comments HIV-1RNA, serum, by PCR, quantitative 500 /mL (test code = 46326) [facility] low density wxtpaicjeigt8716-88-05 11:10:00 Test Item Value Reference Range Interpretation Comments very low density lipoproteins (test 54 mg/dL 5-40 H code = 2091-7) [facility] ([facility]), vxelh1690-91-94 11:10:00 Test Item Value Reference Range Interpretation Comments alanine aminotransferase (SGPT), serum 63 1/L 0-44 H (test code = 1742-6) [facility] Healthaspartate aminotransferase (SGOT), [id number] 11:10:00 Test Item Value Reference Range Interpretation Comments aspartate aminotransferase (SGOT), 37 1/L 0-40 serum (test code = 1920-8) [facility], [id number] 11:10:00 Test Item Value Reference Range Interpretation Comments alkaline phosphatase, serum (test code 80 1/L 39-117 = 1783-0) [facility] Healthbilirubin, serum, [id number] 11:10:00 Test Item Value Reference Range Interpretation Comments bilirubin, serum, total (test code 0.6 mg/dL 0.0-1.2 = 1975-2) [facility] Healthalbumin/globulin ratio, [id number] 11:10:00 Test Item Value Reference Range Interpretation Comments albumin/globulin ratio, 1.2 (unknown unit) 1.2-2.2 serum (test code = 1759-0) [facility] Healthglobulin, [id number] 11:10:00 Test Item Value Reference Range Interpretation Comments globulin, serum (test code 3.7 (unknown unit) 1.5-4.5 = 2336-6) [facility] Healthalbumin, [id number] 11:10:00 Test Item Value Reference Range Interpretation Comments albumin, serum (test code = 1751-7) 4.3 g/dL 3.5-5.5 [facility], total, [id number] 11:10:00 Test Item Value Reference Range Interpretation Comments protein, total, serum (test code = 8.0 g/dL 6.0-8.5 2885-2) [facility]calcium, [id number] 11:10:00 Test Item Value Reference Range Interpretation Comments calcium, serum (test code = 1999-8) 8.8 mg/dL 8.7-10.2 [facility], venous epxdg2519-26-82 11:10:00 Test Item Value Reference Range Interpretation Comments carbon dioxide, venous blood (test 20 mmol/L 20-29 code = 7-1) [facility] Healthchloride, [id number] 11:10:00 Test Item Value Reference Range Interpretation Comments chloride, serum (test code = 100 mmol/L 96-106 2075-0) [facility] Healthpotassium, [id number] 11:10:00 Test Item Value Reference Range Interpretation Comments potassium, serum (test code = 4.0 mmol/L 3.5-5.2 2823-3) [facility]odium, kdzgl1874-80-93 11:10:00 Test Item Value Reference Range Interpretation Comments sodium, serum (test code = 2951-2) 134 mmol/L 134-144 [facility] Creekurea nitrogen/creatinine ratio, malvv8171-16-40 11:10:00 Test Item Value Reference Range Interpretation Comments urea nitrogen/creatinine 12 (unknown unit) 9-20 ratio, serum (test code = 3097-3) [facility] HealtheGFR if Zixlxgky5855-17-12 11:10:00 Test Item Value Reference Range Interpretation Comments eGFR if 101 mL/min/{1.73 m2} >59 (test code = 74303-1) [facility] CreekEstimated Glomerular Filtration Rate (calc)2019-11-02 11:10:00 Test Item Value Reference Range Interpretation Comments Estimated Glomerular 88 mL/min/{1.73 m2} >59 Filtration Rate (calc) (test code = 27796-5) [facility]creatinine, yrkzt8352-62-17 11:10:00 Test Item Value Reference Range Interpretation Comments creatinine, serum (test code = 1.05 mg/dL 0.76-1.27 2160-0) [facility] Creekurea nitrogen, tmfbz2975-71-01 11:10:00 Test Item Value Reference Range Interpretation Comments urea nitrogen, blood (test code = 13 mg/dL 6-24 3094-0) [facility]blood glucose, jejezu9209-72-37 11:10:00 Test Item Value Reference Range Interpretation Comments blood glucose, random (test code = 327 mg/dL 65-99 H 2339-0) [facility] Creekimmature granulocytes, percentage of total cells, blood 2019-11-02 11:10:00 Test Item Value Reference Range Interpretation Comments immature granulocytes, percentage of 0 % total cells, blood (test code = 36186-2) [facility]bas[facility], vkdpxfbe0935-47-19 11:10:00 Test Item Value Reference Range Interpretation Comments basophil count, absolute (test 0.0 x10E3/uL 0.0-0.2 code = 11719-9) [facility] HealthEosinophil Absolute [id number] 11:10:00 Test Item Value Reference Range Interpretation Comments Eosinophil Absolute Count (test 0.1 X10E3/UL 0.0-0.4 code = 87792-4) [facility] Healthmonocyte count, blood, [id number] 11:10:00 Test Item Value Reference Range Interpretation Comments monocyte count, blood, automated 0.2 X10E3/UL 0.1-0.9 (test code = 742-7) [facility]lymphocyte count, blood, rumefrbnj7984-96-99 11:10:00 Test Item Value Reference Range Interpretation Comments lymphocyte count, blood, 1.6 X10E3/UL 0.7-3.1 automated (test code = 731-0) [facility]Absolute Lzvkshegudz6411-54-99 11:10:00 Test Item Value Reference Range Interpretation Comments Absolute Neutrophils (test code 3.9 X10E3/UL 1.4-7.0 = 37959-4) [facility] Healthbasophils as percent of blood zvbsylvhsd9313-70-12 11:10:00 Test Item Value Reference Range Interpretation Comments basophils as percent of blood 0 % leukocytes (test code = 707-0) [facility] Healtheosinophils as percent of blood ewokpstnja7101-14-99 11:10:00 Test Item Value Reference Range Interpretation Comments eosinophils as percent of blood 2 % leukocytes (test code = 713-8) [facility] Healthmonocytes as percent of blood mipjeasinz2371-20-59 11:10:00 Test Item Value Reference Range Interpretation Comments monocytes as percent of blood 4 % leukocytes (test code = 5905-5) [facility]lymphocytes as percent of blood ddothpjnum6552-81-03 11:10:00 Test Item Value Reference Range Interpretation Comments lymphocytes as percent of blood 28 % leukocytes (test code = 736-9) [facility] Creekneutrophils as percent of blood nbrgxkfnfi7468-25-05 11:10:00 Test Item Value Reference Range Interpretation Comments neutrophils as percent of blood 66 % leukocytes (test code = 770-8) [facility] Creekplatelet btibd6883-02-56 11:10:00 Test Item Value Reference Range Interpretation Comments platelet count (test code = 177 X10E3/UL 150-450 777-3) [facility]red blood cell distribution gvmoz9686-04-18 11:10:00 Test Item Value Reference Range Interpretation Comments red blood cell distribution width 14.7 % 12.3-15.4 (test code = 788-0) [facility] corpuscular hemoglobin concentration, HFM6082-08-54 11:10:00 Test Item Value Reference Range Interpretation Comments mean corpuscular hemoglobin 34.5 G/DL 31.5-35.7 concentration, RBC (test code = 786-4) [facility] corpuscular hemoglobin, [id number] 11:10:00 Test Item Value Reference Range Interpretation Comments mean corpuscular hemoglobin, RBC 29.3 pg 26.6-33.0 (test code = 785-6) [facility] corpuscular volume, [id number] 11:10:00 Test Item Value Reference Range Interpretation Comments mean corpuscular volume, RBC (test code 85 fL 79-97 = 787-2) [facility]hematocrit, mddid7719-49-44 11:10:00 Test Item Value Reference Range Interpretation Comments hematocrit, blood (test code = 4544-3) 44.0 % 37.5-51.0 [facility] Creekhemoglobin, [id number] 11:10:00 Test Item Value Reference Range Interpretation Comments hemoglobin, blood (test code = 15.2 g/dL 13.0-17.7 718-7) [facility] Creekerythrocyte (RBC) mszdo8185-80-22 11:10:00 Test Item Value Reference Range Interpretation Comments erythrocyte (RBC) count (test 5.19 X10E6/UL 4.14-5.80 code = 789-8) [facility]leukocyte count, lmlwf0483-96-18 11:10:00 Test Item Value Reference Range Interpretation Comments leukocyte count, blood (test 5.9 X10E3/UL 3.4-10.8 code = 6690-2) [facility] CreekCD4/CD8 srxzi6684-21-70 11:10:00 Test Item Value Reference Range Interpretation Comments CD4/CD8 ratio (test code 0.81 (unknown unit) 0.92-3.72 L = 00764) [facility] CreekLDL cholesterol, ehswe8141-83-84 16:37:00 Test Item Value Reference Range Interpretation Comments LDL cholesterol, serum (test code = 62 mg/dL 0-99 9-1) [facility]HDL cholesterol, [id number] 16:37:00 Test Item Value Reference Range Interpretation Comments HDL cholesterol, serum (test code = 27 mg/dL >39 L 5-9) [facility] Creektriglyceride, serum, vdpcuzs6385-35-01 16:37:00 Test Item Value Reference Range Interpretation Comments triglyceride, serum, fasting (test 331 mg/dL 0-149 H code = 2571-8) [facility]cholesterol, glcno2214-78-12 16:37:00 Test Item Value Reference Range Interpretation Comments cholesterol, serum (test code = 155 mg/dL 233-500 7759-3) [facility] Creekvery low density feaxhfwbhjnn6063-77-20 16:37:00 Test Item Value Reference Range Interpretation Comments very low density lipoproteins (test 66 mg/dL 5-40 H code = 2091-7) [facility] CreekTreponema pallidum antibodies, by particle agglutination 2019-04-26 16:26:00 Test Item Value Reference Range Interpretation Comments Treponema pallidum antibodies, by Positive Negative A particle agglutination (test code = 16326-1) [facility] Creekhemoglobin A1C, blood, as % of total gjtydpsplh0781-86-38 16:26:00 Test Item Value Reference Range Interpretation Comments hemoglobin A1C, blood, as % of total 10.3 % 4.8-5.6 H hemoglobin (test code = 4548-4) [facility] CreekT-helper cells (CD4) as percent of blood lymphocytes 2019-04-26 16:26:00 Test Item Value Reference Range Interpretation Comments T-helper cells (CD4) as percent of 44.1 % 30.8-58.5 blood lymphocytes (test code = 8123-2) [facility] CreekT-helper cells (CD4) cslab0713-13-99 16:26:00 Test Item Value Reference Range Interpretation Comments T-helper cells (CD4) count (test code 573 /UL 359-1519 = 54669-7) [facility] Creekhepatitis C antibody, rjyda6439-95-46 16:26:00 Test Item Value Reference Range Interpretation Comments hepatitis C antibody, serum (test code <0.1 0.0-0.9 = 5199-5) [facility] Creekrapid plasma reagin antibody, [id number] 16:26:00 Test Item Value Reference Range Interpretation Comments rapid plasma reagin 1:1 See_Comment H [Automa stefany message] The antibody, serum (test system which generated code = 5291-0) this result t ransmitted reference range : NonRea<1:1. The reference range was not u sed to interpret this result as normal/abnormal . [facility]HIV-1RNA, serum, by PCR, pcrvmwcqgogg9758-41-18 16:26:00 Test Item Value Reference Range Interpretation Comments HIV-1RNA, serum, by PCR, quantitative 30 /mL (test code = 50581) [facility], by Polymer[facility] Chain Reaction 2019-04-26 16:26:00 Test Item Value Reference Range Interpretation Comments Hepatitis B virus DNA, HBV DNA not detected by Polymerase Chain Reaction (test code = 95498) [facility] aminotransferase (SGPT), [id number] 16:26:00 Test Item Value Reference Range Interpretation Comments alanine aminotransferase (SGPT), serum 47 1/L 0-44 H (test code = 1742-6) [facility] Creekaspartate aminotransferase (SGOT), reucg2515-08-46 16:26:00 Test Item Value Reference Range Interpretation Comments aspartate aminotransferase (SGOT), 34 1/L 0-40 serum (test code = 1920-8) [facility] Creekalkaline phosphatase, kqoev9684-90-32 16:26:00 Test Item Value Reference Range Interpretation Comments alkaline phosphatase, serum (test 101 1/L 39-117 code = 1783-0) [facility]bilirubin, serum, [id number] 16:26:00 Test Item Value Reference Range Interpretation Comments bilirubin, serum, total (test code 0.3 mg/dL 0.0-1.2 = 1975-2) [facility] Healthalbumin/globulin ratio, [id number] 16:26:00 Test Item Value Reference Range Interpretation Comments albumin/globulin ratio, 1.6 (unknown unit) 1.2-2.2 serum (test code = 1759-0) [facility] Healthglobulin, [id number] 16:26:00 Test Item Value Reference Range Interpretation Comments globulin, serum (test code 2.8 (unknown unit) 1.5-4.5 = 2336-6) [facility] Healthalbumin, [id number] 16:26:00 Test Item Value Reference Range Interpretation Comments albumin, serum (test code = 1751-7) 4.4 g/dL 3.5-5.5 [facility]protein, total, wbjfe1468-71-04 16:26:00 Test Item Value Reference Range Interpretation Comments protein, total, serum (test code = 7.2 g/dL 6.0-8.5 2885-2) [facility]calcium, ewulv3714-55-34 16:26:00 Test Item Value Reference Range Interpretation Comments calcium, serum (test code = 1999-) 8.9 mg/dL 8.7-10.2 [facility]carbon dioxide, venous [id number] 16:26:00 Test Item Value Reference Range Interpretation Comments carbon dioxide, venous blood (test 19 mmol/L 20-29 L code = 2026-1) [facility] Creekchloride, gluml0780-63-52 16:26:00 Test Item Value Reference Range Interpretation Comments chloride, serum (test code = 103 mmol/L 96-106 5-0) [facility] Creekpotassium, [id number] 16:26:00 Test Item Value Reference Range Interpretation Comments potassium, serum (test code = 4.5 mmol/L 3.5-5.2 2823-3) [facility] C[facility]ksodium, gdjyy6461-21-91 16:26:00 Test Item Value Reference Range Interpretation Comments sodium, serum (test code = 2951-2) 139 mmol/L 134-144 [facility] Creekurea nitrogen/creatinine ratio, [id number] 16:26:00 Test Item Value Reference Range Interpretation Comments urea nitrogen/creatinine 12 (unknown unit) 9-20 ratio, serum (test code = 3097-3) [facility] HealtheGFR if Loyaykqz1537-79-89 16:26:00 Test Item Value Reference Range Interpretation Comments eGFR if 123 mL/min/{1.73 m2} >59 (test code = 44774-6) [facility] CreekEstimated Glomerular Filtration Rate (calc)2019-04-26 16:26:00 Test Item Value Reference Range Interpretation Comments Estimated Glomerular 106 mL/min/{1.73 m2} >59 Filtration Rate (calc) (test code = 74785-6) [facility]creatinine, [id number] 16:26:00 Test Item Value Reference Range Interpretation Comments creatinine, serum (test code = 0.90 mg/dL 0.76-1.27 2160-0) [facility]urea nitrogen, qvfgq1665-79-36 16:26:00 Test Item Value Reference Range Interpretation Comments urea nitrogen, blood (test code = 11 mg/dL 6-24 3094-0) [facility]blood glucose, mbywas5078-87-80 16:26:00 Test Item Value Reference Range Interpretation Comments blood glucose, random (test code = 325 mg/dL 65-99 H 2339-0) [facility] Creekimmature granulocytes, percentage of total cells, blood 2019-04-26 16:26:00 Test Item Value Reference Range Interpretation Comments immature granulocytes, percentage of 1 % total cells, blood (test code = 48719-6) [facility] Creekbasophil count, yqojkhyg8448-20-92 16:26:00 Test Item Value Reference Range Interpretation Comments basophil count, absolute (test 0.0 x10E3/uL 0.0-0.2 code = 57081-5) [facility] CreekEosinophil Absolute Whwth4409-54-52 16:26:00 Test Item Value Reference Range Interpretation Comments Eosinophil Absolute Count (test 0.1 X10E3/UL 0.0-0.4 code = 21793-8) [facility] Creekmonocyte count, blood, cnochktse7103-25-33 16:26:00 Test Item Value Reference Range Interpretation Comments monocyte count, blood, automated 0.5 X10E3/UL 0.1-0.9 (test code = 742-7) [facility] Creeklymphocyte count, blood, lfecwseni7794-75-40 16:26:00 Test Item Value Reference Range Interpretation Comments lymphocyte count, blood, 1.3 X10E3/UL 0.7-3.1 automated (test code = 731-0) [facility]Absolute Echjvrlwrmi3560-31-67 16:26:00 Test Item Value Reference Range Interpretation Comments Absolute Neutrophils (test code 6.9 X10E3/UL 1.4-7.0 = 55563-3) [facility] Creekbasophils as percent of blood snemryrdru9963-96-51 16:26:00 Test Item Value Reference Range Interpretation Comments basophils as percent of blood 0 % leukocytes (test code = 707-0) [facility] Creekeosinophils as percent of blood svtexyhaco4365-57-82 16:26:00 Test Item Value Reference Range Interpretation Comments eosinophils as percent of blood 1 % leukocytes (test code = 713-8) [facility] Creekmonocytes as percent of blood kwzzizvphc4991-81-70 16:26:00 Test Item Value Reference Range Interpretation Comments monocytes as percent of blood 5 % leukocytes (test code = 5905-5) [facility] Creeklymphocytes as percent of blood cjnlebfigw8694-13-31 16:26:00 Test Item Value Reference Range Interpretation Comments lymphocytes as percent of blood 15 % leukocytes (test code = 736-9) [facility] Creekneutrophils as percent of blood bxnxdhdflg1892-77-30 16:26:00 Test Item Value Reference Range Interpretation Comments neutrophils as percent of blood 78 % leukocytes (test code = 770-8) [facility] Creekplatelet efdgu0620-48-44 16:26:00 Test Item Value Reference Range Interpretation Comments platelet count (test code = 267 X10E3/UL 150-450 777-3) [facility] Creekred blood cell distribution luuxu1980-36-73 16:26:00 Test Item Value Reference Range Interpretation Comments red blood cell distribution width 13.2 % 12.3-15.4 (test code = 788-0) [facility] Creekmean corpuscular hemoglobin concentration, [id number] 16:26:00 Test Item Value Reference Range Interpretation Comments mean corpuscular hemoglobin 34.7 G/DL 31.5-35.7 concentration, RBC (test code = 786-4) [facility]mean corpuscular hemoglobin, [id number] 16:26:00 Test Item Value Reference Range Interpretation Comments mean corpuscular hemoglobin, RBC 30.6 pg 26.6-33.0 (test code = 785-6) [facility]mean corpuscular volume, [id number] 16:26:00 Test Item Value Reference Range Interpretation Comments mean corpuscular volume, RBC (test code 88 fL 79-97 = 787-2) [facility]hematocrit, dczah6583-54-01 16:26:00 Test Item Value Reference Range Interpretation Comments hematocrit, blood (test code = 4544-3) 48.7 % 37.5-51.0 [facility] Creekhemoglobin, vulkr4168-35-64 16:26:00 Test Item Value Reference Range Interpretation Comments hemoglobin, blood (test code = 16.9 g/dL 13.0-17.7 718-7) [facility] Creekerythrocyte (RBC) ymbwn8734-51-71 16:26:00 Test Item Value Reference Range Interpretation Comments erythrocyte (RBC) count (test 5.52 X10E6/UL 4.14-5.80 code = 789-8) [facility] Creekleukocyte count, xpasr9289-36-39 16:26:00 Test Item Value Reference Range Interpretation Comments leukocyte count, blood (test 8.9 X10E3/UL 3.4-10.8 code = 6690-2) [facility] CreekCD4/CD8 jonkp7816-51-27 16:26:00 Test Item Value Reference Range Interpretation Comments CD4/CD8 ratio (test code 1.45 (unknown unit) 0.92-3.72 = 21189) [facility] CreekT-suppressor cells (CD8) as percent of blood lymphocytes 2019-04-26 16:26:00 Test Item Value Reference Range Interpretation Comments T-suppressor cells (CD8) as percent of 30.4 % 12.0-35.5 blood lymphocytes (test code = 3517) [facility] Creekabsolute [id number] 16:26:00 Test Item Value Reference Range Interpretation Comments absolute CD8 (test code = 395 (unknown unit) 044-472 56425) [facility]HIV-1 RNA (log 10)2018-10-25 10:41:00 Test Item Value Reference Range Interpretation Comments HIV-1 RNA (log 10) <1.30 DETECTED Log NOT DETECTED A (test code = 86246) copies/mL [facility]HIV-1RNA, serum, by PCR, ycdlkyipgrgl8947-62-20 10:41:00 Test Item Value Reference Range Interpretation Comments HIV-1RNA, serum, by PCR, <20 DETECTED NOT DETECTED A quantitative (test code = copies/mL 86498) [facility] CreekTreponema pallidum Ab, yybfv0628-40-03 10:40:00 Test Item Value Reference Range Interpretation Comments Treponema pallidum Ab, serum (test REACTIVE NON-REACTIVE A code = 30329-1) [facility] CreekT-helper cells (CD4) dvdqm6779-17-23 10:40:00 Test Item Value Reference Range Interpretation Comments T-helper cells (CD4) count (test 663 CELLS/UL 490-1740 N code = 10063-9) [facility] CreekT-helper cells (CD4) as percent of blood lymphocytes 2018-10-25 10:40:00 Test Item Value Reference Range Interpretation Comments T-helper cells (CD4) as percent of 44 % 30-61 N blood lymphocytes (test code = 8123-2) [facility] CreekLDL cholesterol, aqjem5487-34-73 10:40:00 Test Item Value Reference Range Interpretation Comments LDL cholesterol, LDL cholesterol not serum (test code = calculated. Triglyceride 9-1) le... mg/dL (calc) [facility]triglyceride, serum, nhytigj6945-07-94 10:40:00 Test Item Value Reference Range Interpretation Comments triglyceride, serum, fasting (test 407 mg/dL <150 H code = 2571-8) [facility] CreekHDL cholesterol, ejpdc8680-22-31 10:40:00 Test Item Value Reference Range Interpretation Comments HDL cholesterol, serum (test code = 24 mg/dL >40 L 5-9) [facility] Creekcholesterol, xsmtj6250-12-89 10:40:00 Test Item Value Reference Range Interpretation Comments cholesterol, serum (test code = 178 mg/dL <200 N 2093-3) [facility] Creekrapid plasma reagin antibody, eoltd7877-93-51 10:40:00 Test Item Value Reference Range Interpretation Comments rapid plasma reagin antibody, serum REACTIVE NON-REACTIVE A (test code = 5291-0) [facility] Healthbasophils as percent of blood hnqinwegve6439-83-67 10:40:00 Test Item Value Reference Range Interpretation Comments basophils as percent of blood 0.4 % N leukocytes (test code = 707-0) [facility] Creekeosinophils as percent of blood lhrmeifjoc9785-99-21 10:40:00 Test Item Value Reference Range Interpretation Comments eosinophils as percent of blood 1.2 % N leukocytes (test code = 714-6) [facility] Healthmonocytes as percent of blood dpewhexvsk1643-86-22 10:40:00 Test Item Value Reference Range Interpretation Comments monocytes as percent of blood 4.2 % N leukocytes (test code = 5905-5) [facility] Creeklymphocytes as percent of blood bskgpgnvzc8249-62-52 10:40:00 Test Item Value Reference Range Interpretation Comments lymphocytes as percent of blood 18.9 % N leukocytes (test code = 736-9) [facility] Creekneutrophils as percent of blood viykasiqqq8607-43-41 10:40:00 Test Item Value Reference Range Interpretation Comments neutrophils as percent of blood 75.3 % N leukocytes (test code = 770-8) [facility] Creekbasophil count, ihunmwtz1927-82-86 10:40:00 Test Item Value Reference Range Interpretation Comments basophil count, absolute (test 33 cells/uL 0-200 N code = 61952-1) [facility]Absolute Eosinophil ttwns3106-10-45 10:40:00 Test Item Value Reference Range Interpretation Comments Absolute Eosinophil count (test 100 cells/mcL 15-500 N code = 99102-7) [facility]Absolute Monocyte twasi0251-15-76 10:40:00 Test Item Value Reference Range Interpretation Comments Absolute Monocyte count (test 349 cells/mcL 200-950 N code = 79236-0) [facility]Absolute Neutrophil ibvok3264-02-27 10:40:00 Test Item Value Reference Range Interpretation Comments Absolute Neutrophil count 6250 cells/mcL 8802-8359 N (test code = 05982-8) [facility]mean platelet ictwjl6879-58-06 10:40:00 Test Item Value Reference Range Interpretation Comments mean platelet volume (test code = 11.2 fL 7.5-12.5 N 776-5) [facility] Creekplatelet mhnzx7919-07-03 10:40:00 Test Item Value Reference Range Interpretation Comments platelet count (test code = 230 THOUSAND/UL 140-400 N 777-3) [facility] Creekred blood cell distribution iygdu5294-07-85 10:40:00 Test Item Value Reference Range Interpretation Comments red blood cell distribution width 13.1 % 11.0-15.0 N (test code = 788-0) [facility] corpuscular hemoglobin concentration, [id number] 10:40:00 Test Item Value Reference Range Interpretation Comments mean corpuscular hemoglobin 35.4 G/DL 32.0-36.0 N concentration, RBC (test code = 786-4) [facility] corpuscular hemoglobin, [id number] 10:40:00 Test Item Value Reference Range Interpretation Comments mean corpuscular hemoglobin, RBC 31.2 pg 27.0-33.0 N (test code = 785-6) [facility] corpuscular volume, [id number] 10:40:00 Test Item Value Reference Range Interpretation Comments mean corpuscular volume, RBC (test 88.1 fL 80.0-100.0 N code = 787-2) [facility]oc[facility] [id number] 10:40:00 Test Item Value Reference Range Interpretation Comments hematocrit, blood (test code = 4544-3) 45.7 % 38.5-50.0 N [facility]hemoglobin, [id number] 10:40:00 Test Item Value Reference Range Interpretation Comments hemoglobin, blood (test code = 16.2 g/dL 13.2-17.1 N 718-7) [facility] Creekerythrocyte (RBC) [id number] 10:40:00 Test Item Value Reference Range Interpretation Comments erythrocyte (RBC) count (test 5.19 MILLION/UL 4.20-5.80 N code = 789-8) [facility]leukocyte count, [id number] 10:40:00 Test Item Value Reference Range Interpretation Comments leukocyte count, blood (test 8.3 THOUSAND/UL 3.8-10.8 N code = 6690-2) [facility]lymphocytes, [id number] 10:40:00 Test Item Value Reference Range Interpretation Comments lymphocytes, absolute (test 1569 CELLS/UL 850-3900 N code = 55778-5) [facility] CreekCD4/CD8 [id number] 10:40:00 Test Item Value Reference Range Interpretation Comments CD4/CD8 ratio (test code 1.52 (unknown unit) 0.86-5.00 N = 76241) [facility]absolute [id number] 10:40:00 Test Item Value Reference Range Interpretation Comments absolute CD8 (test code = 436 (unknown unit) 180-1170 N 85179) [facility] CreekT-suppressor cells (CD8) as percent of blood lymphocytes 2018-10-25 10:40:00 Test Item Value Reference Range Interpretation Comments T-suppressor cells (CD8) as percent of 29 % 12-42 N blood lymphocytes (test code = 3517) [facility]alanine aminotransferase (SGPT), [id number] 10:40:00 Test Item Value Reference Range Interpretation Comments alanine aminotransferase (SGPT), serum 79 1/L 9-46 H (test code = 1742-6) [facility] Creekaspartate aminotransferase (SGOT), [id number] 10:40:00 Test Item Value Reference Range Interpretation Comments aspartate aminotransferase (SGOT), 51 1/L 10-40 H serum (test code = 1920-8) [facility] Creekalkaline phosphatase, [id number] 10:40:00 Test Item Value Reference Range Interpretation Comments alkaline phosphatase, serum (test code 87 1/L 40-115 N = 1783-0) [facility]bilirubin, serum, [id number] 10:40:00 Test Item Value Reference Range Interpretation Comments bilirubin, serum, total (test code 0.7 mg/dL 0.2-1.2 N = 1975-2) [facility]albumin/globulin ratio, [id number] 10:40:00 Test Item Value Reference Range Interpretation Comments albumin/globulin ratio, serum 1.7 (calc) 1.0-2.5 N (test code = 1759-0) [facility]globulins, serum, [id number] 10:40:00 Test Item Value Reference Range Interpretation Comments globulins, serum, total (test 2.6 G/DL (CALC) 1.9-3.7 N code = 2336-6) [facility] Healthalbumin, [id number] 10:40:00 Test Item Value Reference Range Interpretation Comments albumin, serum (test code = 1751-7) 4.4 g/dL 3.6-5.1 N [facility] Healthprotein, total, [id number] 10:40:00 Test Item Value Reference Range Interpretation Comments protein, total, serum (test code = 7.0 g/dL 6.1-8.1 N 2885-2) [facility]calcium, [id number] 10:40:00 Test Item Value Reference Range Interpretation Comments calcium, serum (test code = 1999-8) 9.1 mg/dL 8.6-10.3 N [facility] Creekcarbon dioxide, venous [id number] 10:40:00 Test Item Value Reference Range Interpretation Comments carbon dioxide, venous blood (test 24 mmol/L 20-32 N code = 2026-1) [facility] Creekchloride, [id number] 10:40:00 Test Item Value Reference Range Interpretation Comments chloride, serum (test code = 105 mmol/L 98-110 N 5-0) [facility]potassium, [id number] 10:40:00 Test Item Value Reference Range Interpretation Comments potassium, serum (test code = 3.9 mmol/L 3.5-5.3 N 2823-3) [facility] Creeksodium, [id number] 10:40:00 Test Item Value Reference Range Interpretation Comments sodium, serum (test code = 2951-2) 139 mmol/L 135-146 N [facility] Creekurea nitrogen/creatinine ratio, [id number] 10:40:00 Test Item Value Reference Range Interpretation Comments urea NOT APPLICABLE (calc) 6-22 nitrogen/creatinine ratio, serum (test code = 3097-3) [facility] HealtheGFR if Skwmjnxm3214-34-76 10:40:00 Test Item Value Reference Range Interpretation Comments eGFR if 114 See_Comment N [Automated message] Sudanese (test mL/min/{1.73 The system wh ich code = 17693-9) m2} generated th is result transmitted ref erence range: > OR = 6 0. The reference range was not used to int erpret this result as normal/abnormal . [facility] CreekEstimated Glomerular Filtration Rate (calc)2018-10-25 10:40:00 Test Item Value Reference Range Interpretation Comments Estimated Glomerular 98 See_Comment N [Autom ated message] Filtration Rate mL/min/{1.73 The system w hich (calc) (test code = m2} generate d this 53304-8) result transmit stefany reference range : > OR = 60. The reference range was not used to interpret this result as normal/abnormal . [facility] Creekcreatinine, [id number] 10:40:00 Test Item Value Reference Range Interpretation Comments creatinine, serum (test code = 0.96 mg/dL 0.60-1.35 N 2160-0) [facility] Creekurea nitrogen, [id number] 10:40:00 Test Item Value Reference Range Interpretation Comments urea nitrogen, blood (test code = 10 mg/dL 7-25 N 3094-0) [facility]blood glucose, [id number] 10:40:00 Test Item Value Reference Range Interpretation Comments blood glucose, random (test code = 217 mg/dL 65-99 H 2339-0) [facility]cholesterol, non-HDL, [id number] 10:40:00 Test Item Value Reference Range Interpretation Comments cholesterol, non-HDL, total 154 MG/DL (CALC) <130 H (test code = 71326) [facility]cholesterol/HDL ratio, serum, doydrvb7922-26-85 10:40:00 Test Item Value Reference Range Interpretation Comments cholesterol/HDL ratio, serum, 7.4 (calc) <5.0 H percent (test code = 2404) [facility] CreekQuantiferon Gold TB blood test for tuberculosis screening 2018-05-22 09:03:00 Test Item Value Reference Range Interpretation Comments Quantiferon Gold TB blood test for Negative Negative tuberculosis screening (test code = 75208-6) [facility] CreekHIV-1RNA, serum, by PCR, bqoaqfxjrrgp2633-03-94 08:46:00 Test Item Value Reference Range Interpretation Comments HIV-1RNA, serum, by PCR, <20 copies/mL quantitative (test code = 98485) [facility] CreekTreponema pallidum antibodies, by particle agglutination 2018-05-21 08:44:00 Test Item Value Reference Range Interpretation Comments Treponema pallidum antibodies, by Positive Negative A particle agglutination (test code = 80869-3) [facility] Creekhemoglobin A1C, blood, as % of total rcudkzdazo1099-22-60 08:44:00 Test Item Value Reference Range Interpretation Comments hemoglobin A1C, blood, as % of total 6.4 % 4.8-5.6 H hemoglobin (test code = 4548-4) [facility] CreekLDL cholesterol, [id number] 08:44:00 Test Item Value Reference Range Interpretation Comments LDL cholesterol, serum (test TRIGHI mg/dL 0-99 code = 2089-1) [facility] CreekHDL cholesterol, [id number] 08:44:00 Test Item Value Reference Range Interpretation Comments HDL cholesterol, serum (test code = 22 mg/dL >39 L 5-9) [facility] Creektriglyceride, serum, [id number] 08:44:00 Test Item Value Reference Range Interpretation Comments triglyceride, serum, fasting (test 401 mg/dL 0-149 H code = 2571-8) [facility]cholesterol, [id number] 08:44:00 Test Item Value Reference Range Interpretation Comments cholesterol, serum (test code = 159 mg/dL 500-154 9158-3) [facility] CreekT-helper cells (CD4) as percent of blood lymphocytes 2018-05-21 08:44:00 Test Item Value Reference Range Interpretation Comments T-helper cells (CD4) as percent of 47.1 % 30.8-58.5 blood lymphocytes (test code = 8123-2) [facility] CreekT-helper cells (CD4) [id number] 08:44:00 Test Item Value Reference Range Interpretation Comments T-helper cells (CD4) count (test 1130 /UL 359-1519 code = 63818-4) [facility] Creekrapid plasma reagin antibody, [id number] 08:44:00 Test Item Value Reference Range Interpretation Comments rapid plasma reagin 1:2 See_Comment H [Automa stefany message] The antibody, serum (test system which generated code = 5291-0) this result t ransmitted reference range : NonRea<1:1. The reference range was not u sed to interpret this result as normal/abnormal . [facility] CreekHepatitis B virus DNA, by Polymerase Chain Reaction 2018-05-21 08:44:00 Test Item Value Reference Range Interpretation Comments Hepatitis B virus DNA, HBV DNA not detected by Polymerase Chain Reaction (test code = 12305) [facility] Creekvery low density [id number] 08:44:00 Test Item Value Reference Range Interpretation Comments very low density lipoproteins VLDLCH mg/dL 5-40 (test code = 2091-7) [facility]alanine aminotransferase (SGPT), oxtyu7681-08-28 08:44:00 Test Item Value Reference Range Interpretation Comments alanine aminotransferase (SGPT), 121 1/L 0-44 H serum (test code = 1742-6) [facility] Creekaspartate aminotransferase (SGOT), [id number] 08:44:00 Test Item Value Reference Range Interpretation Comments aspartate aminotransferase (SGOT), 41 1/L 0-40 H serum (test code = 1920-8) [facility] Creekalkaline phosphatase, [id number] 08:44:00 Test Item Value Reference Range Interpretation Comments alkaline phosphatase, serum (test code 85 1/L 39-117 = 1783-0) [facility]bilirubin, serum, [id number] 08:44:00 Test Item Value Reference Range Interpretation Comments bilirubin, serum, total (test code 0.3 mg/dL 0.0-1.2 = 1975-2) [facility]albumin/globulin ratio, [id number] 08:44:00 Test Item Value Reference Range Interpretation Comments albumin/globulin ratio, 1.6 (unknown unit) 1.2-2.2 serum (test code = 1759-0) [facility] Creekglobulin, [id number] 08:44:00 Test Item Value Reference Range Interpretation Comments globulin, serum (test code 2.8 (unknown unit) 1.5-4.5 = 2336-6) [facility] Creekalbumin, [id number] 08:44:00 Test Item Value Reference Range Interpretation Comments albumin, serum (test code = 1751-7) 4.5 g/dL 3.5-5.5 [facility] Healthprotein, total, [id number] 08:44:00 Test Item Value Reference Range Interpretation Comments protein, total, serum (test code = 7.3 g/dL 6.0-8.5 2885-2) [facility]calcium, [id number] 08:44:00 Test Item Value Reference Range Interpretation Comments calcium, serum (test code = 1999-8) 9.3 mg/dL 8.7-10.2 [facility]carbon dioxide, venous [id number] 08:44:00 Test Item Value Reference Range Interpretation Comments carbon dioxide, venous blood (test 21 mmol/L - code = 7-1) [facility] Creekchloride, [id number] 08:44:00 Test Item Value Reference Range Interpretation Comments chloride, serum (test code = 102 mmol/L 96-106 5-0) [facility] Creekpotassium, [id number] 08:44:00 Test Item Value Reference Range Interpretation Comments potassium, serum (test code = 3.9 mmol/L 3.5-5.2 2823-3) [facility]reeksodium, [id number] 08:44:00 Test Item Value Reference Range Interpretation Comments sodium, serum (test code = 2951-2) 141 mmol/L 134-144 [facility] Creekurea nitrogen/creatinine ratio, [id number] 08:44:00 Test Item Value Reference Range Interpretation Comments urea nitrogen/creatinine 11 (unknown unit) 9-20 ratio, serum (test code = 3097-3) [facility] HealtheGFR if [id number] 08:44:00 Test Item Value Reference Range Interpretation Comments eGFR if 101 mL/min/{1.73 m2} >59 (test code = 81398-8) [facility] CreekEstimated Glomerular Filtration Rate (calc)2018-05-21 08:44:00 Test Item Value Reference Range Interpretation Comments Estimated Glomerular 87 mL/min/{1.73 m2} >59 Filtration Rate (calc) (test code = 18497-8) [facility] Creekcreatinine, [id number] 08:44:00 Test Item Value Reference Range Interpretation Comments creatinine, serum (test code = 1.07 mg/dL 0.76-1.27 2160-0) [facility] Healthurea nitrogen, [id number] 08:44:00 Test Item Value Reference Range Interpretation Comments urea nitrogen, blood (test code = 12 mg/dL 6-20 3094-0) [facility]blood glucose, [id number] 08:44:00 Test Item Value Reference Range Interpretation Comments blood glucose, random (test code = 315 mg/dL 65-99 H 2339-0) [facility] Creekimmature granulocytes, percentage of total cells, blood 2018-05-21 08:44:00 Test Item Value Reference Range Interpretation Comments immature granulocytes, percentage of 0 % total cells, blood (test code = 82495-1) [facility] Creekbasophil count, [id number] 08:44:00 Test Item Value Reference Range Interpretation Comments basophil count, absolute (test 0.0 x10E3/uL 0.0-0.2 code = 84494-2) [facility] CreekEosinophil Absolute [id number] 08:44:00 Test Item Value Reference Range Interpretation Comments Eosinophil Absolute Count (test 0.2 X10E3/UL 0.0-0.4 code = 01443-4) [facility] Creekmonocyte count, blood, lpwnvdwtx0675-21-89 08:44:00 Test Item Value Reference Range Interpretation Comments monocyte count, blood, automated 0.3 X10E3/UL 0.1-0.9 (test code = 742-7) [facility] Creeklymphocyte count, blood, zctkkyhlg9023-45-58 08:44:00 Test Item Value Reference Range Interpretation Comments lymphocyte count, blood, 2.4 X10E3/UL 0.7-3.1 automated (test code = 731-0) [facility] CreekAbsolute Odyprwieoms7529-56-24 08:44:00 Test Item Value Reference Range Interpretation Comments Absolute Neutrophils (test code 7.3 X10E3/UL 1.4-7.0 H = 96508-9) [facility] Creekbasophils as percent of blood jpftcerqec7456-10-89 08:44:00 Test Item Value Reference Range Interpretation Comments basophils as percent of blood 0 % leukocytes (test code = 707-0) [facility] Healtheosinophils as percent of blood fphuinairu1157-45-04 08:44:00 Test Item Value Reference Range Interpretation Comments eosinophils as percent of blood 2 % leukocytes (test code = 713-8) [facility] Healthmonocytes as percent of blood flbriozexc4176-02-49 08:44:00 Test Item Value Reference Range Interpretation Comments monocytes as percent of blood 3 % leukocytes (test code = 5905-5) [facility]lymphocytes as percent of blood njbubzxjbj7356-96-51 08:44:00 Test Item Value Reference Range Interpretation Comments lymphocytes as percent of blood 24 % leukocytes (test code = 736-9) [facility] Creekneutrophils as percent of blood sazgyekuvw8070-77-49 08:44:00 Test Item Value Reference Range Interpretation Comments neutrophils as percent of blood 71 % leukocytes (test code = 770-8) [facility] Creekplatelet kvbuo1883-19-97 08:44:00 Test Item Value Reference Range Interpretation Comments platelet count (test code = 217 X10E3/UL 150-379 777-3) [facility] Creekred blood cell distribution icrig8774-29-84 08:44:00 Test Item Value Reference Range Interpretation Comments red blood cell distribution width 14.2 % 12.3-15.4 (test code = 788-0) [facility] corpuscular hemoglobin concentration, [id number] 08:44:00 Test Item Value Reference Range Interpretation Comments mean corpuscular hemoglobin 34.6 G/DL 31.5-35.7 concentration, RBC (test code = 786-4) [facility] corpuscular hemoglobin, [id number] 08:44:00 Test Item Value Reference Range Interpretation Comments mean corpuscular hemoglobin, RBC 32.6 pg 26.6-33.0 (test code = 785-6) [facility] corpuscular volume, [id number] 08:44:00 Test Item Value Reference Range Interpretation Comments mean corpuscular volume, RBC (test code 94 fL 79-97 = 787-2) [facility]hematocrit, omgmr9286-01-07 08:44:00 Test Item Value Reference Range Interpretation Comments hematocrit, blood (test code = 4544-3) 47.4 % 37.5-51.0 [facility] Creekhemoglobin, [id number] 08:44:00 Test Item Value Reference Range Interpretation Comments hemoglobin, blood (test code = 16.4 g/dL 13.0-17.7 718-7) [facility] Creekerythrocyte (RBC) [id number] 08:44:00 Test Item Value Reference Range Interpretation Comments erythrocyte (RBC) count (test 5.03 X10E6/UL 4.14-5.80 code = 789-8) [facility] Creekleukocyte count, [id number] 08:44:00 Test Item Value Reference Range Interpretation Comments leukocyte count, blood (test 10.2 X10E3/UL 3.4-10.8 code = 6690-2) [facility] CreekCD4/CD8 ppbzp1177-55-65 08:44:00 Test Item Value Reference Range Interpretation Comments CD4/CD8 ratio (test code 1.64 (unknown unit) 0.92-3.72 = 13765) [facility] CreekT-suppressor cells (CD8) as percent of blood lymphocytes 2018-05-21 08:44:00 Test Item Value Reference Range Interpretation Comments T-suppressor cells (CD8) as percent of 28.7 % 12.0-35.5 blood lymphocytes (test code = 3517) [facility] Creekabsolute [id number] 08:44:00 Test Item Value Reference Range Interpretation Comments absolute CD8 (test code = 689 (unknown unit) 552-574 08947) [facility] CreekTreponema pallidum antibodies, by particle agglutination 2017-11-24 11:58:00 Test Item Value Reference Range Interpretation Comments Treponema pallidum antibodies, by Positive Negative A particle agglutination (test code = 69918-1) [facility]hemoglobin A1C, blood, as % of total swdfjnvchz7585-60-53 11:58:00 Test Item Value Reference Range Interpretation Comments hemoglobin A1C, blood, as % of total 6.2 % 4.8-5.6 H hemoglobin (test code = 4548-4) [facility] CreekLDL cholesterol, [id number] 11:58:00 Test Item Value Reference Range Interpretation Comments LDL cholesterol, serum (test TRIGHI mg/dL 0-99 code = 2089-1) [facility] CreekHDL cholesterol, [id number] 11:58:00 Test Item Value Reference Range Interpretation Comments HDL cholesterol, serum (test code = 22 mg/dL >39 L 5-9) [facility] Creektriglyceride, serum, [id number] 11:58:00 Test Item Value Reference Range Interpretation Comments triglyceride, serum, fasting (test 471 mg/dL 0-149 H code = 2571-8) [facility]cholesterol, [id number] 11:58:00 Test Item Value Reference Range Interpretation Comments cholesterol, serum (test code = 159 mg/dL 020-508 0051-3) [facility] CreekT-helper cells (CD4) as percent of blood lymphocytes 2017-11-24 11:58:00 Test Item Value Reference Range Interpretation Comments T-helper cells (CD4) as percent of 44.9 % 30.8-58.5 blood lymphocytes (test code = 8123-2) [facility] CreekT-helper cells (CD4) [id number] 11:58:00 Test Item Value Reference Range Interpretation Comments T-helper cells (CD4) count (test code 853 /UL 359-1519 = 40084-9) [facility] Creekhepatitis C antibody, [id number] 11:58:00 Test Item Value Reference Range Interpretation Comments hepatitis C antibody, 0.1 (unknown unit) 0.0-0.9 serum (test code = 5199-5) [facility] Creekrapid plasma reagin antibody, [id number] 11:58:00 Test Item Value Reference Range Interpretation Comments rapid plasma reagin 1:2 See_Comment H [Automa stefany message] The antibody, serum (test system which generated code = 5291-0) this result t ransmitted reference range : NonRea<1:1. The reference range was not u sed to interpret this result as normal/abnormal . [facility] CreekHIV-1RNA, serum, by PCR, dhxyhnkczqsr8453-04-15 11:58:00 Test Item Value Reference Range Interpretation Comments HIV-1RNA, serum, by PCR, <20 copies/mL quantitative (test code = 41143) [facility] Creekvery low density vqqavxemanno7572-51-65 11:58:00 Test Item Value Reference Range Interpretation Comments very low density lipoproteins VLDLCH mg/dL 5-40 (test code = 2091-7) [facility] Creekalanine aminotransferase (SGPT), [id number] 11:58:00 Test Item Value Reference Range Interpretation Comments alanine aminotransferase (SGPT), serum 92 1/L 0-44 H (test code = 1742-6) [facility] Creekaspartate aminotransferase (SGOT), krhky6059-61-33 11:58:00 Test Item Value Reference Range Interpretation Comments aspartate aminotransferase (SGOT), 49 1/L 0-40 H serum (test code = 1920-8) [facility] Creekalkaline phosphatase, [id number] 11:58:00 Test Item Value Reference Range Interpretation Comments alkaline phosphatase, serum (test code 79 1/L 39-117 = 1783-0) [facility]bilirubin, serum, [id number] 11:58:00 Test Item Value Reference Range Interpretation Comments bilirubin, serum, total (test code 0.4 mg/dL 0.0-1.2 = 1975-2) [facility] Creekalbumin/globulin ratio, [id number] 11:58:00 Test Item Value Reference Range Interpretation Comments albumin/globulin ratio, 1.5 (unknown unit) 1.2-2.2 serum (test code = 1759-0) [facility] Healthglobulin, [id number] 11:58:00 Test Item Value Reference Range Interpretation Comments globulin, serum (test code 3.1 (unknown unit) 1.5-4.5 = 2336-6) [facility] Healthalbumin, [id number] 11:58:00 Test Item Value Reference Range Interpretation Comments albumin, serum (test code = 1751-7) 4.6 g/dL 3.5-5.5 [facility]protein, total, [id number] 11:58:00 Test Item Value Reference Range Interpretation Comments protein, total, serum (test code = 7.7 g/dL 6.0-8.5 2885-2) [facility] Creekcalcium, [id number] 11:58:00 Test Item Value Reference Range Interpretation Comments calcium, serum (test code = 1999-8) 9.6 mg/dL 8.7-10.2 [facility]carbon dioxide, venous liglz1646-95-85 11:58:00 Test Item Value Reference Range Interpretation Comments carbon dioxide, venous blood (test 27 mmol/L code = 2026-1) [facility] Creekchloride, [id number] 11:58:00 Test Item Value Reference Range Interpretation Comments chloride, serum (test code = 100 mmol/L 96-106 2075-0) [facility] Healthpotassium, [id number] 11:58:00 Test Item Value Reference Range Interpretation Comments potassium, serum (test code = 4.6 mmol/L 3.5-5.2 2823-3) [facility] Creeksodium, [id number] 11:58:00 Test Item Value Reference Range Interpretation Comments sodium, serum (test code = 2951-2) 143 mmol/L 134-144 [facility] Creekurea nitrogen/creatinine ratio, [id number] 11:58:00 Test Item Value Reference Range Interpretation Comments urea nitrogen/creatinine 12 (unknown unit) 9-20 ratio, serum (test code = 3097-3) [facility] HealtheGFR if Gnrneimf1713-45-11 11:58:00 Test Item Value Reference Range Interpretation Comments eGFR if 99 mL/min/{1.73 m2} >59 (test code = 21049-1) [facility] CreekEstimated Glomerular Filtration Rate (calc)2017-11-24 11:58:00 Test Item Value Reference Range Interpretation Comments Estimated Glomerular 86 mL/min/{1.73 m2} >59 Filtration Rate (calc) (test code = 66589-6) [facility] Creekcreatinine, [id number] 11:58:00 Test Item Value Reference Range Interpretation Comments creatinine, serum (test code = 1.08 mg/dL 0.76-1.27 2160-0) [facility] Creekurea nitrogen, ltwes3871-47-23 11:58:00 Test Item Value Reference Range Interpretation Comments urea nitrogen, blood (test code = 13 mg/dL 6-20 3094-0) [facility], dkurac4938-66-13 11:58:00 Test Item Value Reference Range Interpretation Comments blood glucose, random (test code = 178 mg/dL 65-99 H 2339-0) [facility] Creekimmature granulocytes, percentage of total cells, blood 2017-11-24 11:58:00 Test Item Value Reference Range Interpretation Comments immature granulocytes, percentage of 1 % total cells, blood (test code = 19159-7) [facility] Healthbasophil count, attuvmkq4757-56-03 11:58:00 Test Item Value Reference Range Interpretation Comments basophil count, absolute (test 0.0 x10E3/uL 0.0-0.2 code = 61899-6) [facility] HealthEosinophil Absolute Eswde9764-79-28 11:58:00 Test Item Value Reference Range Interpretation Comments Eosinophil Absolute Count (test 0.1 X10E3/UL 0.0-0.4 code = 74318-5) [facility]monocyte count, blood, ajlmmomjg4484-90-63 11:58:00 Test Item Value Reference Range Interpretation Comments monocyte count, blood, automated 0.3 X10E3/UL 0.1-0.9 (test code = 742-7) [facility]lymphocyte count, blood, xjryrcnto1724-55-34 11:58:00 Test Item Value Reference Range Interpretation Comments lymphocyte count, blood, 1.9 X10E3/UL 0.7-3.1 automated (test code = 731-0) [facility]Absolute Lvschdtscmb9216-65-56 11:58:00 Test Item Value Reference Range Interpretation Comments Absolute Neutrophils (test code 4.7 X10E3/UL 1.4-7.0 = 87314-1) [facility]basophils as percent of blood jlwpikceec4347-04-17 11:58:00 Test Item Value Reference Range Interpretation Comments basophils as percent of blood 0 % leukocytes (test code = 707-0) [facility] Healtheosinophils as percent of blood qdwuvitazi6389-23-22 11:58:00 Test Item Value Reference Range Interpretation Comments eosinophils as percent of blood 2 % leukocytes (test code = 713-8) [facility] Healthmonocytes as percent of blood wyisuseppc1098-26-46 11:58:00 Test Item Value Reference Range Interpretation Comments monocytes as percent of blood 4 % leukocytes (test code = 5905-5) [facility]lymphocytes as percent of blood vguvggnbpj2392-46-22 11:58:00 Test Item Value Reference Range Interpretation Comments lymphocytes as percent of blood 26 % leukocytes (test code = 736-9) [facility] Creekneutrophils as percent of blood wzhzmmhvsx7437-83-58 11:58:00 Test Item Value Reference Range Interpretation Comments neutrophils as percent of blood 67 % leukocytes (test code = 770-8) [facility] Creekplatelet abxks7927-46-93 11:58:00 Test Item Value Reference Range Interpretation Comments platelet count (test code = 247 X10E3/UL 150-379 777-3) [facility]red blood cell distribution lgevu5650-04-03 11:58:00 Test Item Value Reference Range Interpretation Comments red blood cell distribution width 13.7 % 12.3-15.4 (test code = 788-0) [facility] corpuscular hemoglobin concentration, QFA1233-60-95 11:58:00 Test Item Value Reference Range Interpretation Comments mean corpuscular hemoglobin 34.8 G/DL 31.5-35.7 concentration, RBC (test code = 786-4) [facility] corpuscular hemoglobin, [id number] 11:58:00 Test Item Value Reference Range Interpretation Comments mean corpuscular hemoglobin, RBC 31.4 pg 26.6-33.0 (test code = 785-6) [facility] corpuscular volume, [id number] 11:58:00 Test Item Value Reference Range Interpretation Comments mean corpuscular volume, RBC (test code 90 fL 79-97 = 787-2) [facility]hematocrit, iisxk3275-89-51 11:58:00 Test Item Value Reference Range Interpretation Comments hematocrit, blood (test code = 4544-3) 47.7 % 37.5-51.0 [facility]hemoglobin, kpvdq9401-98-64 11:58:00 Test Item Value Reference Range Interpretation Comments hemoglobin, blood (test code = 16.6 g/dL 13.0-17.7 718-7) [facility] Creekerythrocyte (RBC) rlema8865-43-14 11:58:00 Test Item Value Reference Range Interpretation Comments erythrocyte (RBC) count (test 5.29 X10E6/UL 4.14-5.80 code = 789-8) [facility] Creekleukocyte count, upbyt4032-40-61 11:58:00 Test Item Value Reference Range Interpretation Comments leukocyte count, blood (test 7.1 X10E3/UL 3.4-10.8 code = 6690-2) [facility] CreekCD4/CD8 xcqmr6945-96-33 11:58:00 Test Item Value Reference Range Interpretation Comments CD4/CD8 ratio (test code 1.39 (unknown unit) 0.92-3.72 = 80837) [facility] CreekT-suppressor cells (CD8) as percent of blood lymphocytes 2017-11-24 11:58:00 Test Item Value Reference Range Interpretation Comments T-suppressor cells (CD8) as percent of 32.4 % 12.0-35.5 blood lymphocytes (test code = 3517) [facility]absolute [id number] 11:58:00 Test Item Value Reference Range Interpretation Comments absolute CD8 (test code = 616 (unknown unit) 248-508 12072) [facility] CreekTreponema pallidum antibodies, by particle agglutination 2017-06-16 09:37:00 Test Item Value Reference Range Interpretation Comments Treponema pallidum antibodies, by Positive Negative A particle agglutination (test code = 31328-6) [facility] Creekhemoglobin A1C, blood, as % of total niatyplnas6586-20-30 09:37:00 Test Item Value Reference Range Interpretation Comments hemoglobin A1C, blood, as % of total 6.8 % 4.8-5.6 H hemoglobin (test code = 4548-4) [facility]LDL cholesterol, jkgbu4640-07-15 09:37:00 Test Item Value Reference Range Interpretation Comments LDL cholesterol, serum (test code = 68 mg/dL 0-99 2088-) [facility]HDL cholesterol, nygpp0172-82-38 09:37:00 Test Item Value Reference Range Interpretation Comments HDL cholesterol, serum (test code = 25 mg/dL >39 L 2084-9) [facility] Creektriglyceride, serum, kkmcjmg5906-56-34 09:37:00 Test Item Value Reference Range Interpretation Comments triglyceride, serum, fasting (test 390 mg/dL 0-149 H code = 2571-8) [facility]cholesterol, [id number] 09:37:00 Test Item Value Reference Range Interpretation Comments cholesterol, serum (test code = 171 mg/dL 636-242 1677-3) [facility] CreekT-helper cells (CD4) as percent of blood lymphocytes 2017-06-16 09:37:00 Test Item Value Reference Range Interpretation Comments T-helper cells (CD4) as percent of 41.9 % 30.8-58.5 blood lymphocytes (test code = 8123-2) [facility] CreekT-helper cells (CD4) vnqoe0339-86-65 09:37:00 Test Item Value Reference Range Interpretation Comments T-helper cells (CD4) count (test code 880 /UL 359-1519 = 93779-3) [facility] Creekrapid plasma reagin antibody, vbuqv1367-54-14 09:37:00 Test Item Value Reference Range Interpretation Comments rapid plasma reagin 1:4 See_Comment H [Automa stefany message] The antibody, serum (test system which generated code = 5291-0) this result t ransmitted reference range : NonRea<1:1. The reference range was not u sed to interpret this result as normal/abnormal . [facility] CreekHIV-1RNA, serum, by PCR, uweagipkstym9152-74-24 09:37:00 Test Item Value Reference Range Interpretation Comments HIV-1RNA, serum, by PCR, quantitative 40 /mL (test code = 98417) [facility] Creekvery low density ppvovxbifbdt4269-85-92 09:37:00 Test Item Value Reference Range Interpretation Comments very low density lipoproteins (test 78 mg/dL 5-40 H code = 2091-7) [facility]alanine aminotransferase (SGPT), fnmlf0843-17-88 09:37:00 Test Item Value Reference Range Interpretation Comments alanine aminotransferase (SGPT), serum 77 1/L 0-44 H (test code = 1742-6) [facility] Creekaspartate aminotransferase (SGOT), wderz2555-69-67 09:37:00 Test Item Value Reference Range Interpretation Comments aspartate aminotransferase (SGOT), 46 1/L 0-40 H serum (test code = 1920-8) [facility] Creekalkaline phosphatase, qeiyq4124-21-21 09:37:00 Test Item Value Reference Range Interpretation Comments alkaline phosphatase, serum (test code 89 1/L 39-117 = 1783-0) [facility] Healthbilirubin, serum, lipmg8727-69-09 09:37:00 Test Item Value Reference Range Interpretation Comments bilirubin, serum, total (test code 0.4 mg/dL 0.0-1.2 = 1975-2) [facility] Healthalbumin/globulin ratio, htgvl0213-59-42 09:37:00 Test Item Value Reference Range Interpretation Comments albumin/globulin ratio, 1.7 (unknown unit) 1.2-2.2 serum (test code = 1759-0) [facility] Healthglobulin, xmfww2124-88-30 09:37:00 Test Item Value Reference Range Interpretation Comments globulin, serum (test code 2.6 (unknown unit) 1.5-4.5 = 2336-6) [facility] Healthalbumin, nhxcc0984-07-30 09:37:00 Test Item Value Reference Range Interpretation Comments albumin, serum (test code = 1751-7) 4.4 g/dL 3.5-5.5 [facility] Healthprotein, total, lqavm1940-07-45 09:37:00 Test Item Value Reference Range Interpretation Comments protein, total, serum (test code = 7.0 g/dL 6.0-8.5 2885-2) [facility] Healthcalcium, jzhjw5486-66-18 09:37:00 Test Item Value Reference Range Interpretation Comments calcium, serum (test code = 1999-8) 9.3 mg/dL 8.7-10.2 [facility]carbon dioxide, venous ysbyg2331-87-36 09:37:00 Test Item Value Reference Range Interpretation Comments carbon dioxide, venous blood (test 25 mmol/L 18-29 code = 7-1) [facility] Healthchloride, sjdyi1603-78-05 09:37:00 Test Item Value Reference Range Interpretation Comments chloride, serum (test code = 102 mmol/L 96-106 5-0) [facility]potassium, huphz0077-47-13 09:37:00 Test Item Value Reference Range Interpretation Comments potassium, serum (test code = 4.6 mmol/L 3.5-5.2 2823-3) [facility] Creeksodium, fjfbw2547-43-54 09:37:00 Test Item Value Reference Range Interpretation Comments sodium, serum (test code = 2951-2) 142 mmol/L 134-144 [facility] Creekurea nitrogen/creatinine ratio, yxbtv2861-52-29 09:37:00 Test Item Value Reference Range Interpretation Comments urea nitrogen/creatinine 9 (unknown unit) 9-20 ratio, serum (test code = 3097-3) [facility] HealtheGFR if Tevdnevc8158-26-32 09:37:00 Test Item Value Reference Range Interpretation Comments eGFR if 127 mL/min/{1.73 m2} >59 (test code = 47471-1) [facility] CreekEstimated Glomerular Filtration Rate (calc)2017-06-16 09:37:00 Test Item Value Reference Range Interpretation Comments Estimated Glomerular 110 mL/min/{1.73 m2} >59 Filtration Rate (calc) (test code = 26149-7) [facility]creatinine, jfsak6119-06-84 09:37:00 Test Item Value Reference Range Interpretation Comments creatinine, serum (test code = 0.86 mg/dL 0.76-1.27 2160-0) [facility] Creekurea nitrogen, adkvl7085-95-03 09:37:00 Test Item Value Reference Range Interpretation Comments urea nitrogen, blood (test code = 8 mg/dL 6-20 3094-0) [facility]blood glucose, uzfteq1379-21-58 09:37:00 Test Item Value Reference Range Interpretation Comments blood glucose, random (test code = 236 mg/dL 65-99 H 2339-0) [facility] Creekimmature granulocytes, percentage of total cells, blood 2017-06-16 09:37:00 Test Item Value Reference Range Interpretation Comments immature granulocytes, percentage of 0 % total cells, blood (test code = 09411-2) [facility] Creekbasophil count, gaiqpvqd6651-60-65 09:37:00 Test Item Value Reference Range Interpretation Comments basophil count, absolute (test 0.0 x10E3/uL 0.0-0.2 code = 28587-1) [facility] CreekEosinophil Absolute Obzdr1774-09-17 09:37:00 Test Item Value Reference Range Interpretation Comments Eosinophil Absolute Count (test 0.2 X10E3/UL 0.0-0.4 code = 52108-9) [facility] Healthmonocyte count, blood, cqmcaugbz3760-35-58 09:37:00 Test Item Value Reference Range Interpretation Comments monocyte count, blood, automated 0.3 X10E3/UL 0.1-0.9 (test code = 742-7) [facility]lymphocyte count, blood, wyaxszapu2582-05-19 09:37:00 Test Item Value Reference Range Interpretation Comments lymphocyte count, blood, 2.1 X10E3/UL 0.7-3.1 automated (test code = 731-0) [facility] HealthAbsolute Cbytrpgfnrk7581-37-41 09:37:00 Test Item Value Reference Range Interpretation Comments Absolute Neutrophils (test code 5.2 X10E3/UL 1.4-7.0 = 56650-2) [facility]basophils as percent of blood ynuqdvwlua2246-60-52 09:37:00 Test Item Value Reference Range Interpretation Comments basophils as percent of blood 1 % leukocytes (test code = 707-0) [facility] Creekeosinophils as percent of blood xtdzphvjmg5172-73-78 09:37:00 Test Item Value Reference Range Interpretation Comments eosinophils as percent of blood 2 % leukocytes (test code = 713-8) [facility] Healthmonocytes as percent of blood abnmfcohsh2878-56-25 09:37:00 Test Item Value Reference Range Interpretation Comments monocytes as percent of blood 4 % leukocytes (test code = 5905-5) [facility]lymphocytes as percent of blood tkxjtdcksf9001-70-31 09:37:00 Test Item Value Reference Range Interpretation Comments lymphocytes as percent of blood 26 % leukocytes (test code = 736-9) [facility] Creekneutrophils as percent of blood vqajbbwcct4812-88-00 09:37:00 Test Item Value Reference Range Interpretation Comments neutrophils as percent of blood 67 % leukocytes (test code = 770-8) [facility] Creekplatelet mukwv8618-76-05 09:37:00 Test Item Value Reference Range Interpretation Comments platelet count (test code = 239 X10E3/UL 150-379 777-3) [facility]red blood cell distribution vdshl1926-21-19 09:37:00 Test Item Value Reference Range Interpretation Comments red blood cell distribution width 13.0 % 12.3-15.4 (test code = 788-0) [facility] corpuscular hemoglobin concentration, [id number] 09:37:00 Test Item Value Reference Range Interpretation Comments mean corpuscular hemoglobin 35.0 G/DL 31.5-35.7 concentration, RBC (test code = 786-4) [facility] corpuscular hemoglobin, [id number] 09:37:00 Test Item Value Reference Range Interpretation Comments mean corpuscular hemoglobin, RBC 31.1 pg 26.6-33.0 (test code = 785-6) [facility] corpuscular volume, IYF0593-20-50 09:37:00 Test Item Value Reference Range Interpretation Comments mean corpuscular volume, RBC (test code 89 fL 79-97 = 787-2) [facility]hematocrit, guorp0866-49-46 09:37:00 Test Item Value Reference Range Interpretation Comments hematocrit, blood (test code = 4544-3) 46.9 % 37.5-51.0 [facility] Creekhemoglobin, wmoir1781-14-36 09:37:00 Test Item Value Reference Range Interpretation Comments hemoglobin, blood (test code = 16.4 g/dL 12.6-17.7 718-7) [facility] Creekerythrocyte (RBC) vlvek8442-63-71 09:37:00 Test Item Value Reference Range Interpretation Comments erythrocyte (RBC) count (test 5.27 X10E6/UL 4.14-5.80 code = 789-8) [facility]leukocyte count, xcchy3034-33-44 09:37:00 Test Item Value Reference Range Interpretation Comments leukocyte count, blood (test 7.8 X10E3/UL 3.4-10.8 code = 6690-2) [facility] CreekCD4/CD8 cwwys7867-24-15 09:37:00 Test Item Value Reference Range Interpretation Comments CD4/CD8 ratio (test code 1.20 (unknown unit) 0.92-3.72 = 35131) [facility] CreekT-suppressor cells (CD8) as percent of blood lymphocytes 2017-06-16 09:37:00 Test Item Value Reference Range Interpretation Comments T-suppressor cells (CD8) as percent of 34.8 % 12.0-35.5 blood lymphocytes (test code = 3517) [facility] Healthabsolute [id number] 09:37:00 Test Item Value Reference Range Interpretation Comments absolute CD8 (test code = 731 (unknown unit) [phone]) [facility] CreekNeisseria gonorrhoeae DNA vddeu1551-86-71 09:48:00 Test Item Value Reference Range Interpretation Comments Neisseria gonorrhoeae DNA probe Negative Negative (test code = 26684-8) [facility] Creekchlamydia DNA eohpk6842-07-25 09:48:00 Test Item Value Reference Range Interpretation Comments chlamydia DNA probe (test code = Negative Negative 06958-7) [facility] CreekTreponema pallidum antibodies, by particle agglutination 2017-01-18 09:31:00 Test Item Value Reference Range Interpretation Comments Treponema pallidum antibodies, by Positive Negative A particle agglutination (test code = 92309-0) [facility] CreekLDL cholesterol, emrjp4849-64-43 09:31:00 Test Item Value Reference Range Interpretation Comments LDL cholesterol, serum (test TRIGHI mg/dL 0-99 code = 2089-1) [facility]HDL cholesterol, irwrj0413-28-18 09:31:00 Test Item Value Reference Range Interpretation Comments HDL cholesterol, serum (test code = 17 mg/dL >39 L 5-9) [facility]triglyceride, serum, bxdrona8425-88-12 09:31:00 Test Item Value Reference Range Interpretation Comments triglyceride, serum, fasting (test 559 mg/dL 0-149 HH code = 2571-8) [facility]cholesterol, oozpj1794-39-42 09:31:00 Test Item Value Reference Range Interpretation Comments cholesterol, serum (test code = 174 mg/dL 170-924 7412-3) [facility] CreekT-helper cells (CD4) as percent of blood lymphocytes 2017-01-18 09:31:00 Test Item Value Reference Range Interpretation Comments T-helper cells (CD4) as percent of 45.9 % 30.8-58.5 blood lymphocytes (test code = 8123-2) [facility] CreekT-helper cells (CD4) xmfrt8017-05-90 09:31:00 Test Item Value Reference Range Interpretation Comments T-helper cells (CD4) count (test code 734 /UL 359-1519 = 60282-1) [facility] Creekrapid plasma reagin antibody, wilqy1839-83-02 09:31:00 Test Item Value Reference Range Interpretation Comments rapid plasma reagin 1:4 See_Comment H [[employer] stefany message] The antibody, serum (test system which generated code = 5291-0) this result t ransmitted reference range : NonRea<1:1. The reference range was not u sed to interpret this result as normal/abnormal . [facility]HIV-1RNA, serum, by PCR, unrqdjikhumo7808-98-85 09:31:00 Test Item Value Reference Range Interpretation Comments HIV-1RNA, serum, by PCR, <20 copies/mL quantitative (test code = 33272) [facility] CreekHepatitis B virus DNA, by Polymerase Chain Reaction 2017-01-18 09:31:00 Test Item Value Reference Range Interpretation Comments Hepatitis B virus DNA, by Polymerase <10 Chain Reaction (test code = 55060) [facility] Creekvery low density buvbskgtlibz7408-45-44 09:31:00 Test Item Value Reference Range Interpretation Comments very low density lipoproteins VLDLCH mg/dL 5-40 (test code = 2091-7) [facility]alanine aminotransferase (SGPT), efjag3297-02-64 09:31:00 Test Item Value Reference Range Interpretation Comments alanine aminotransferase (SGPT), serum 90 1/L 0-44 H (test code = 1742-6) [facility] Creekaspartate aminotransferase (SGOT), omism3195-95-90 09:31:00 Test Item Value Reference Range Interpretation Comments aspartate aminotransferase (SGOT), 66 1/L 0-40 H serum (test code = 1920-8) [facility] Creekalkaline phosphatase, kraib1697-24-82 09:31:00 Test Item Value Reference Range Interpretation Comments alkaline phosphatase, serum (test 104 1/L 39-117 code = 1783-0) [facility]bilirubin, serum, dhngi6066-75-26 09:31:00 Test Item Value Reference Range Interpretation Comments bilirubin, serum, total (test code 0.4 mg/dL 0.0-1.2 = 1975-2) [facility]album[facility]/globulin ratio, xwaiq2567-49-17 09:31:00 Test Item Value Reference Range Interpretation Comments albumin/globulin ratio, 1.3 (unknown unit) 1.2-2.2 serum (test code = 1759-0) [facility] Healthglobulin, senry6359-28-55 09:31:00 Test Item Value Reference Range Interpretation Comments globulin, serum (test code 3.0 (unknown unit) 1.5-4.5 = 2336-6) [facility] Healthalbumin, asrrl2607-98-64 09:31:00 Test Item Value Reference Range Interpretation Comments albumin, serum (test code = 1751-7) 4.0 g/dL 3.5-5.5 [facility]protein, total, jmscg2617-60-71 09:31:00 Test Item Value Reference Range Interpretation Comments protein, total, serum (test code = 7.0 g/dL 6.0-8.5 2885-2) [facility] Creekcalcium, deewc7172-38-20 09:31:00 Test Item Value Reference Range Interpretation Comments calcium, serum (test code = 1999-8) 9.0 mg/dL 8.7-10.2 [facility]carbon dioxide, venous ascct3429-67-25 09:31:00 Test Item Value Reference Range Interpretation Comments carbon dioxide, venous blood (test 22 mmol/L 18-29 code = 2026-1) [facility] Creekchloride, bdgdr2011-05-19 09:31:00 Test Item Value Reference Range Interpretation Comments chloride, serum (test code = 100 mmol/L 96-106 5-0) [facility] Creekpotassium, vxojx3859-80-57 09:31:00 Test Item Value Reference Range Interpretation Comments potassium, serum (test code = 4.3 mmol/L 3.5-5.2 2823-3) [facility] Creeksodium, wmqmx3640-86-35 09:31:00 Test Item Value Reference Range Interpretation Comments sodium, serum (test code = 2951-2) 139 mmol/L 134-144 [facility] Creekurea nitrogen/creatinine ratio, ygvby1757-31-26 09:31:00 Test Item Value Reference Range Interpretation Comments urea nitrogen/creatinine 8 (unknown unit) 8-19 ratio, serum (test code = 3097-3) [facility] HealtheGFR if Pbbkpmhe4091-26-22 09:31:00 Test Item Value Reference Range Interpretation Comments eGFR if 107 mL/min/{1.73 m2} >59 (test code = 19840-1) [facility] CreekEstimated Glomerular Filtration Rate (calc)2017-01-18 09:31:00 Test Item Value Reference Range Interpretation Comments Estimated Glomerular 93 mL/min/{1.73 m2} >59 Filtration Rate (calc) (test code = 41477-7) [facility] Creekcreatinine, menge6136-44-53 09:31:00 Test Item Value Reference Range Interpretation Comments creatinine, serum (test code = 1.02 mg/dL 0.76-1.27 2160-0) [facility] Creekurea nitrogen, bqfql0068-19-74 09:31:00 Test Item Value Reference Range Interpretation Comments urea nitrogen, blood (test code = 8 mg/dL 6-20 3094-0) [facility]blood glucose, hiywxh5503-06-20 09:31:00 Test Item Value Reference Range Interpretation Comments blood glucose, random (test code = 313 mg/dL 65-99 H 2339-0) [facility] Creekimmature granulocytes, percentage of total cells, blood 2017-01-18 09:31:00 Test Item Value Reference Range Interpretation Comments immature granulocytes, percentage of 0 % total cells, blood (test code = 66713-6) [facility] Creekbasophil count, ndpocnqr2982-58-11 09:31:00 Test Item Value Reference Range Interpretation Comments basophil count, absolute (test 0.0 x10E3/uL 0.0-0.2 code = 48686-5) [facility] CreekEosinophil Absolute Mlslo1670-37-54 09:31:00 Test Item Value Reference Range Interpretation Comments Eosinophil Absolute Count (test 0.3 X10E3/UL 0.0-0.4 code = 43571-7) [facility] Creekmonocyte count, blood, nrdajswoi8580-66-15 09:31:00 Test Item Value Reference Range Interpretation Comments monocyte count, blood, automated 0.4 X10E3/UL 0.1-0.9 (test code = 742-7) [facility] Creeklymphocyte count, blood, kdehabtuh8219-46-14 09:31:00 Test Item Value Reference Range Interpretation Comments lymphocyte count, blood, 1.6 X10E3/UL 0.7-3.1 automated (test code = 731-0) [facility] CreekAbsolute Chldgojawsg7266-13-37 09:31:00 Test Item Value Reference Range Interpretation Comments Absolute Neutrophils (test code 5.9 X10E3/UL 1.4-7.0 = 64226-1) [facility] Creekbasophils as percent of blood kbuiaeihkf6428-46-17 09:31:00 Test Item Value Reference Range Interpretation Comments basophils as percent of blood 0 % leukocytes (test code = 707-0) [facility] C[facility]keosinophils as percent of blood umdgdlbejy0235-75-04 09:31:00 Test Item Value Reference Range Interpretation Comments eosinophils as percent of blood 3 % leukocytes (test code = 713-8) [facility] Creekmonocytes as percent of blood xtuicbdrnj8438-64-92 09:31:00 Test Item Value Reference Range Interpretation Comments monocytes as percent of blood 5 % leukocytes (test code = 5905-5) [facility] percent of blood [id number] 09:31:00 Test Item Value Reference Range Interpretation Comments lymphocytes as percent of blood 19 % leukocytes (test code = 736-9) [facility]neutrophils as percent of blood mapgysuqky1249-52-87 09:31:00 Test Item Value Reference Range Interpretation Comments neutrophils as percent of blood 73 % leukocytes (test code = 770-8) [facility] Creekplatelet [id number] 09:31:00 Test Item Value Reference Range Interpretation Comments platelet count (test code = 192 X10E3/UL 150-379 777-3) [facility]red blood cell distribution [id number] 09:31:00 Test Item Value Reference Range Interpretation Comments red blood cell distribution width 13.7 % 12.3-15.4 (test code = 788-0) [facility] corpuscular hemoglobin concentration, [id number] 09:31:00 Test Item Value Reference Range Interpretation Comments mean corpuscular hemoglobin 34.7 G/DL 31.5-35.7 concentration, RBC (test code = 786-4) [facility], [id number] 09:31:00 Test Item Value Reference Range Interpretation Comments mean corpuscular hemoglobin, RBC 32.0 pg 26.6-33.0 (test code = 785-6) [facility] corpuscular volume, [id number] 09:31:00 Test Item Value Reference Range Interpretation Comments mean corpuscular volume, RBC (test code 92 fL 79-97 = 787-2) [facility]hematocrit, [id number] 09:31:00 Test Item Value Reference Range Interpretation Comments hematocrit, blood (test code = 4544-3) 48.1 % 37.5-51.0 [facility]hemoglobin, [id number] 09:31:00 Test Item Value Reference Range Interpretation Comments hemoglobin, blood (test code = 16.7 g/dL 12.6-17.7 718-7) [facility] Creekerythrocyte (RBC) [id number] 09:31:00 Test Item Value Reference Range Interpretation Comments erythrocyte (RBC) count (test 5.22 X10E6/UL 4.14-5.80 code = 789-8) [facility]leukocyte count, [id number] 09:31:00 Test Item Value Reference Range Interpretation Comments leukocyte count, blood (test 8.3 X10E3/UL 3.4-10.8 code = 6690-2) [facility] CreekCD4/CD8 [id number] 09:31:00 Test Item Value Reference Range Interpretation Comments CD4/CD8 ratio (test code 1.43 (unknown unit) 0.92-3.72 = 31191) [facility] CreekT-suppressor cells (CD8) as percent of blood lymphocytes 2017-01-18 09:31:00 Test Item Value Reference Range Interpretation Comments T-suppressor cells (CD8) as percent of 32.0 % 12.0-35.5 blood lymphocytes (test code = 3517) [facility]absolute [id number] 09:31:00 Test Item Value Reference Range Interpretation Comments absolute CD8 (test code = 512 (unknown unit) [phone]) [facility] CreekTreponema pallidum antibodies, by particle agglutination 2016-07-21 10:14:00 Test Item Value Reference Range Interpretation Comments Treponema pallidum antibodies, by Positive Negative A particle agglutination (test code = 49775-4) [facility] CreekLDL cholesterol, [id number] 10:14:00 Test Item Value Reference Range Interpretation Comments LDL cholesterol, serum (test TRIGHI mg/dL 0-99 code = 2089-1) [facility]HDL cholesterol, [id number] 10:14:00 Test Item Value Reference Range Interpretation Comments HDL cholesterol, serum (test code = 19 mg/dL >39 L 5-9) [facility]triglyceride, serum, [id number] 10:14:00 Test Item Value Reference Range Interpretation Comments triglyceride, serum, fasting (test 452 mg/dL 0-149 H code = 2571-8) [facility]cholesterol, [id number] 10:14:00 Test Item Value Reference Range Interpretation Comments cholesterol, serum (test code = 144 mg/dL 453-665 6343-3) [facility] CreekT-helper cells (CD4) as percent of blood lymphocytes 2016-07-21 10:14:00 Test Item Value Reference Range Interpretation Comments T-helper cells (CD4) as percent of 43.2 % 30.8-58.5 blood lymphocytes (test code = 8123-2) [facility] CreekT-helper cells (CD4) [id number] 10:14:00 Test Item Value Reference Range Interpretation Comments T-helper cells (CD4) count (test code 691 /UL 359-1519 = 28269-7) [facility] CreekQuantiferon Gold TB blood test for tuberculosis screening 2016-07-21 10:14:00 Test Item Value Reference Range Interpretation Comments Quantiferon Gold TB blood test for Negative Negative tuberculosis screening (test code = 67551-2) [facility] Creekrapid plasma reagin antibody, [id number] 10:14:00 Test Item Value Reference Range Interpretation Comments rapid plasma reagin 1:2 See_Comment H [Automa stefany message] The antibody, serum (test system which generated code = 5291-0) this result t ransmitted reference range : NonRea<1:1. The reference range was not u sed to interpret this result as normal/abnormal . [facility] CreekHIV-1RNA, serum, by PCR, [id number] 10:14:00 Test Item Value Reference Range Interpretation Comments HIV-1RNA, serum, by PCR, <20 copies/mL quantitative (test code = 82734) [facility] Creekvery low density oranqiitxcap5504-42-16 10:14:00 Test Item Value Reference Range Interpretation Comments very low density lipoproteins VLDLCH mg/dL 5-40 (test code = 2091-7) [facility]alanine aminotransferase (SGPT), [id number] 10:14:00 Test Item Value Reference Range Interpretation Comments alanine aminotransferase (SGPT), 128 1/L 0-44 H serum (test code = 1742-6) [facility] Creekaspartate aminotransferase (SGOT), [id number] 10:14:00 Test Item Value Reference Range Interpretation Comments aspartate aminotransferase (SGOT), 65 1/L 0-40 H serum (test code = 1920-8) [facility] Creekalkaline phosphatase, [id number] 10:14:00 Test Item Value Reference Range Interpretation Comments alkaline phosphatase, serum (test 115 1/L 39-117 code = 1783-0) [facility]bilirubin, serum, [id number] 10:14:00 Test Item Value Reference Range Interpretation Comments bilirubin, serum, total (test code 0.6 mg/dL 0.0-1.2 = 1975-2) [facility]albumin/globulin ratio, [id number] 10:14:00 Test Item Value Reference Range Interpretation Comments albumin/globulin ratio, 1.5 (unknown unit) 1.1-2.5 serum (test code = 1759-0) [facility] Healthglobulin, [id number] 10:14:00 Test Item Value Reference Range Interpretation Comments globulin, serum (test code 2.8 (unknown unit) 1.5-4.5 = 2336-6) [facility] Healthalbumin, [id number] 10:14:00 Test Item Value Reference Range Interpretation Comments albumin, serum (test code = 1751-7) 4.2 g/dL 3.5-5.5 [facility]protein, total, [id number] 10:14:00 Test Item Value Reference Range Interpretation Comments protein, total, serum (test code = 7.0 g/dL 6.0-8.5 2885-2) [facility] Creekcalcium, [id number] 10:14:00 Test Item Value Reference Range Interpretation Comments calcium, serum (test code = 1999-8) 8.8 mg/dL 8.7-10.2 [facility]carbon dioxide, venous [id number] 10:14:00 Test Item Value Reference Range Interpretation Comments carbon dioxide, venous blood (test 18 mmol/L 18-29 code = 2026-1) [facility] Creekchloride, [id number] 10:14:00 Test Item Value Reference Range Interpretation Comments chloride, serum (test code = 101 mmol/L 97-108 5-0) [facility] Healthpotassium, [id number] 10:14:00 Test Item Value Reference Range Interpretation Comments potassium, serum (test code = 4.0 mmol/L 3.5-5.2 2823-3) [facility] Creeksodium, [id number] 10:14:00 Test Item Value Reference Range Interpretation Comments sodium, serum (test code = 2951-2) 139 mmol/L 134-144 [facility] Creekurea nitrogen/creatinine ratio, [id number] 10:14:00 Test Item Value Reference Range Interpretation Comments urea nitrogen/creatinine 10 (unknown unit) 8-19 ratio, serum (test code = 3097-3) [facility] HealtheGFR if Avvfbgkz3640-46-62 10:14:00 Test Item Value Reference Range Interpretation Comments eGFR if 121 mL/min/{1.73 m2} >59 (test code = 51300-8) [facility] CreekEstimated Glomerular Filtration Rate (calc)2016-07-21 10:14:00 Test Item Value Reference Range Interpretation Comments Estimated Glomerular 105 mL/min/{1.73 m2} >59 Filtration Rate (calc) (test code = 78941-8) [facility] Creekcreatinine, [id number] 10:14:00 Test Item Value Reference Range Interpretation Comments creatinine, serum (test code = 0.93 mg/dL 0.76-1.27 0-0) [facility] Creekurea nitrogen, [id number] 10:14:00 Test Item Value Reference Range Interpretation Comments urea nitrogen, blood (test code = 9 mg/dL 6-20 3094-0) [facility]blood glucose, [id number] 10:14:00 Test Item Value Reference Range Interpretation Comments blood glucose, random (test code = 362 mg/dL 65-99 H 2339-0) [facility] Creekimmature granulocytes, percentage of total cells, blood 2016-07-21 10:14:00 Test Item Value Reference Range Interpretation Comments immature granulocytes, percentage of 0 % total cells, blood (test code = 34677-5) [facility] Creekbasophil count, [id number] 10:14:00 Test Item Value Reference Range Interpretation Comments basophil count, absolute (test 0.0 x10E3/uL 0.0-0.2 code = 55131-3) [facility] CreekEosinophil Absolute [id number] 10:14:00 Test Item Value Reference Range Interpretation Comments Eosinophil Absolute Count (test 0.2 X10E3/UL 0.0-0.4 code = 54221-5) [facility] Creekmonocyte count, blood, uwdqzfwsy0474-67-82 10:14:00 Test Item Value Reference Range Interpretation Comments monocyte count, blood, automated 0.3 X10E3/UL 0.1-0.9 (test code = 742-7) [facility]lymphocyte count, blood, [id number] 10:14:00 Test Item Value Reference Range Interpretation Comments lymphocyte count, blood, 1.6 X10E3/UL 0.7-3.1 automated (test code = 731-0) [facility] CreekAbsolute Npjjpxlnimm7695-81-24 10:14:00 Test Item Value Reference Range Interpretation Comments Absolute Neutrophils (test code 3.7 X10E3/UL 1.4-7.0 = 25982-9) [facility] Creekbasophils as percent of blood xohnvmjcwa4965-59-57 10:14:00 Test Item Value Reference Range Interpretation Comments basophils as percent of blood 0 % leukocytes (test code = 707-0) [facility] Creekeosinophils as percent of blood hegruptwgi6473-43-98 10:14:00 Test Item Value Reference Range Interpretation Comments eosinophils as percent of blood 3 % leukocytes (test code = 713-8) [facility] Healthmonocytes as percent of blood [id number] 10:14:00 Test Item Value Reference Range Interpretation Comments monocytes as percent of blood 5 % leukocytes (test code = 5905-5) [facility] Creeklymphocytes as percent of blood mdigibosba9756-04-26 10:14:00 Test Item Value Reference Range Interpretation Comments lymphocytes as percent of blood 27 % leukocytes (test code = 736-9) [facility] Creekneutrophils as percent of blood pplqatjljd4990-79-41 10:14:00 Test Item Value Reference Range Interpretation Comments neutrophils as percent of blood 65 % leukocytes (test code = 770-8) [facility] Creekplatelet [id number] 10:14:00 Test Item Value Reference Range Interpretation Comments platelet count (test code = 165 X10E3/UL 150-379 777-3) [facility] Creekred blood cell distribution [id number] 10:14:00 Test Item Value Reference Range Interpretation Comments red blood cell distribution width 13.6 % 12.3-15.4 (test code = 788-0) [facility] corpuscular hemoglobin concentration, [id number] 10:14:00 Test Item Value Reference Range Interpretation Comments mean corpuscular hemoglobin 34.6 G/DL 31.5-35.7 concentration, RBC (test code = 786-4) [facility] corpuscular hemoglobin, [id number] 10:14:00 Test Item Value Reference Range Interpretation Comments mean corpuscular hemoglobin, RBC 31.0 pg 26.6-33.0 (test code = 785-6) [facility] corpuscular volume, [id number] 10:14:00 Test Item Value Reference Range Interpretation Comments mean corpuscular volume, RBC (test code 90 fL 79-97 = 787-2) [facility]hematocrit, [id number] 10:14:00 Test Item Value Reference Range Interpretation Comments hematocrit, blood (test code = 4544-3) 45.6 % 37.5-51.0 [facility] Creekhemoglobin, [id number] 10:14:00 Test Item Value Reference Range Interpretation Comments hemoglobin, blood (test code = 15.8 g/dL 12.6-17.7 718-7) [facility] Creekerythrocyte (RBC) [id number] 10:14:00 Test Item Value Reference Range Interpretation Comments erythrocyte (RBC) count (test 5.09 X10E6/UL 4.14-5.80 code = 789-8) [facility] Creekleukocyte count, [id number] 10:14:00 Test Item Value Reference Range Interpretation Comments leukocyte count, blood (test 5.8 X10E3/UL 3.4-10.8 code = 6690-2) [facility] CreekCD4/CD8 [id number] 10:14:00 Test Item Value Reference Range Interpretation Comments CD4/CD8 ratio (test code 1.39 (unknown unit) 0.92-3.72 = 72405) [facility] CreekT-suppressor cells (CD8) as percent of blood lymphocytes 2016-07-21 10:14:00 Test Item Value Reference Range Interpretation Comments T-suppressor cells (CD8) as percent of 31.0 % 12.0-35.5 blood lymphocytes (test code = 3517) [facility] Creekabsolute [id number] 10:14:00 Test Item Value Reference Range Interpretation Comments absolute CD8 (test code = 496 (unknown unit) 991-561 66994) [facility] Creekhepatitis A antibody, [id number] 12:15:41 Test Item Value Reference Range Interpretation Comments hepatitis A antibody, total (test Reactive code = 75) [facility] surface ewmikpgx2673-24-20 12:14:34 Test Item Value Reference Range Interpretation Comments hepatitis B surface antibody Non-reactive (test code = 78) [facility] CreekT-helper cells (CD4) as percent of blood lymphocytes 2016-04-15 12:13:24 Test Item Value Reference Range Interpretation Comments T-helper cells (CD4) as percent of 42 % blood lymphocytes (test code = 8123-2) [facility] CreekHIV-1RNA, serum, by PCR, [id number] 12:13:09 Test Item Value Reference Range Interpretation Comments HIV-1RNA, serum, by PCR, quantitative <20 (test code = 47435) [facility] CreekT-helper cells (CD4) cjzys4397-81-91 12:12:46 Test Item Value Reference Range Interpretation Comments T-helper cells (CD4) count (test code 677 uL = 23848-2) [facility] Creektoxoplasma gondii antibody, [id number] 12:11:51 Test Item Value Reference Range Interpretation Comments toxoplasma gondii antibody, IgG (test <3 code = 2430) [facility] Creekrapid plasma reagin antibody, [id number] 12:11:28 Test Item Value Reference Range Interpretation Comments rapid plasma reagin antibody, serum 1:2 (test code = 5291-0) [facility] CreekHepatitis C virus (HCV) RNA, PCR, udyihmxszevx3867-54-15 12:10:46 Test Item Value Reference Range Interpretation Comments Hepatitis C virus (HCV) RNA, Not-detected PCR, quantitative (test code = 49800) [facility] antibody, [id number] 12:10:17 Test Item Value Reference Range Interpretation Comments hepatitis C antibody, serum Non-reactive (test code = 5199-5) [facility] Creekhepatitis B surface [id number] 12:09:48 Test Item Value Reference Range Interpretation Comments hepatitis B surface antigen (test reactive code = 79) [facility] Creekprotein, total, [id number] 12:08:51 Test Item Value Reference Range Interpretation Comments protein, total, serum (test code = 7.6 g/dL 2885-2) [facility] Healthalbumin, vhqor0086-27-02 12:08:51 Test Item Value Reference Range Interpretation Comments albumin, serum (test code = 1751-7) 4.0 g/dL [facility]bilirubin, serum, [id number] 12:08:50 Test Item Value Reference Range Interpretation Comments bilirubin, serum, total (test code 0.5 mg/dL = 1975-2) [facility]alanine aminotransferase (SGPT), [id number] 12:08:50 Test Item Value Reference Range Interpretation Comments alanine aminotransferase (SGPT), 103 1/L serum (test code = 1742-6) [facility] Creekaspartate aminotransferase (SGOT), [id number] 12:08:50 Test Item Value Reference Range Interpretation Comments aspartate aminotransferase (SGOT), 54 1/L serum (test code = 1920-8) [facility] Creekerythrocyte (RBC) tcdjd1509-12-00 12:07:48 Test Item Value Reference Range Interpretation Comments erythrocyte (RBC) count (test 5.26 10*6/mm3 code = 789-8) [facility] Healthplatelet [id number] 12:07:47 Test Item Value Reference Range Interpretation Comments platelet count (test code = 228 10*3/mm3 777-3) [facility]hematocrit, [id number] 12:07:47 Test Item Value Reference Range Interpretation Comments hematocrit, blood (test code = 4544-3) 46.8 % [facility]hemoglobin, gejrv0501-23-43 12:07:46 Test Item Value Reference Range Interpretation Comments hemoglobin, blood (test code = 16.5 g/dL 718-7) [facility]leukocyte count, [id number] 12:07:46 Test Item Value Reference Range Interpretation Comments leukocyte count, blood (test 0.74 10*3/mm3 code = 6690-2) [facility] Creektriglyceride, serum, idkjvpe8784-89-89 12:06:54 Test Item Value Reference Range Interpretation Comments triglyceride, serum, fasting (test 330 mg/dL code = 2571-8) [facility] CreekLDL cholesterol, [id number] 12:06:54 Test Item Value Reference Range Interpretation Comments LDL cholesterol, serum (test code = 88 mg/dL 2088-) [facility]HDL cholesterol, [id number] 12:06:54 Test Item Value Reference Range Interpretation Comments HDL cholesterol, serum (test code = 23 mg/dL 2084-9) [facility]cholesterol, lxlsl8563-76-22 12:06:53 Test Item Value Reference Range Interpretation Comments cholesterol, serum (test code = 153 mg/dL 2092-3) [facility] Creekcreatinine, [id number] 12:06:25 Test Item Value Reference Range Interpretation Comments creatinine, serum (test code = 0.9 mg/dL 0-0) [facility] Creekurea nitrogen, jhkyg3939-33-38 12:06:25 Test Item Value Reference Range Interpretation Comments urea nitrogen, blood (test code = 10 mg/dL 3094-0) [facility] Creekpotassium, btyqw9654-07-59 12:06:25 Test Item Value Reference Range Interpretation Comments potassium, serum (test code = 4.1 mmol/L 2823-3) [facility] [id number] 12:06:24 Test Item Value Reference Range Interpretation Comments sodium, serum (test code = 2951-2) 142 mmol/L [facility] CreekT-helper cells (CD4) [id number] 15:52:58 Test Item Value Reference Range Interpretation Comments T-helper cells (CD4) count (test code 783 uL = 17429-8) [facility]HIV-1RNA, serum, by PCR, kzwdxcvhgfit1293-26-87 15:52:58 Test Item Value Reference Range Interpretation Comments HIV-1RNA, serum, by PCR, quantitative 75 /mL (test code = 74940) [facility]
[2022-07-05] MEDS ORDERED: FAMOTIDINE 20 MG/2 ML VIAL IV ONE (11:01)
[2022-07-05] MEDS ORDERED: NA CHLORIDE 0.9% 1,000 ML ONE (11:01)
[2022-07-05] MEDS ORDERED: ONDANSETRON 4 MG/2 ML VIAL ONE (11:01)
[2022-07-05 11:28] LABS: Albumin 4.1 g/dL (3.4-5.0); Bilirubin Total 0.6 mg/dL (0.2-1.0); Potassium 3.8 mmol/L (3.5-5.1); Protein, Total 7.8 g/dL (6.4-8.2)
[2022-07-05 11:52] LABS: Absolute Lymphocytes (CBC) 1.9 K/uL (0.7-4.9); Hematocrit 48.4 % (39.6-49.0); Lymphocytes % 28.2 % (15.3-44.8); MCV 89.4 fL (80-100); RBC Red Blood Cell Count 5.41 M/uL (4.33-5.43)
--- NOTE | 2022-07-05 12:35 | ER ---
Nurse's Notes [facility] Name: Jaleel Olivas Age: 41 yrs Sex: Male : 1980 Arrival Date: 07/05/2022 Time: 10:12 Bed 26 Private MD: Diagnosis: Noninfective gastroenteritis and colitis, unspecified Presentation: 07/05 10:29 Chief complaint: Patient states: abd pain + body aches since last . +D,+N, tw2 intolerance of food. liquid stools. bloating. 10:32 Coronavirus screen: diarrhea, nausea, Client presents with at least one sign or symptom tw2 that may indicate coronavirus-19. Standard/surgical mask placed on the client. Provider contacted for isolation considerations. Ebola Screen: Patient denies travel to an Ebola-affected area in the 21 days before illness onset. Initial Sepsis Screen: Does the patient meet any 2 criteria? No. Patient's initial sepsis screen is negative. Does the patient have a suspected source of infection? No. Patient's initial sepsis screen is negative. Risk Assessment: Do you want to hurt yourself or someone else? Patient reports no desire to harm self or others. Onset of symptoms was July 05, 2022. 10:32 Acuity: LARRY 3 tw2 10:32 Method Of Arrival: Ambulatory tw2 Triage Assessment: 10:33 General: Appears in no apparent distress. slender, well groomed, Behavior is calm, tw2 cooperative, appropriate for age. Pain: Complains of pain in abdomen. Neuro: Level of Consciousness is awake, alert, obeys commands, Oriented to person, place, time, situation. GI: Reports lower abdominal pain, upper abdominal pain, bloating, diarrhea, nausea. Historical: - Allergies: 10:31 Codeine (Hives); tw2 10:31 Tape; tw2 - PMHx: 10:31 HIV; Diabetes - NIDDM; Hypertension; tw2 - Immunization history:: Adult Immunizations Client reports receiving the 2nd dose of the Covid vaccine. - Social history:: Smoking status: Reported history of juuling and/or vaping. Patient uses alcohol, only on a social basis. Screenin:53 Abuse screen: Denies threats or abuse. Nutritional screening: No deficits noted. tw2 Tuberculosis screening: No symptoms or risk factors identified. Fall Risk None identified. Assessment: 10:53 Neuro: Level of Consciousness is awake, alert, obeys commands, Oriented to person, tw2 place, time, situation. Respiratory: Airway is patent Respiratory effort is even, unlabored, Respiratory pattern is regular, symmetrical. GI: na Abd is soft X 4 quads. 12:05 General: Received care of pt from triage, ambulatory without distress. Pt reports upper kb3 abdominal bloating and pressure, diarrhea, nausea, body aches since . Pt reports feeling better since medications were administered in triage. States no needs at this time. Call light within reach. Placed on monitors. Vital Signs: 10:32 BP 173 / 104; Pulse 81; Resp 17; Temp 98.6(O); Pulse Ox 100% on R/A; Weight 68.04 kg; tw2 Height 5 ft. 4 in. (162.56 cm); Pain 8/10; 12:05 BP 175 / 94; Pulse 64; Resp 20; Pulse Ox 100% ; kb3 12:51 BP 156 / 99; Pulse 60; Resp 16; Pulse Ox 100% ; Pain 2/10; kb3 10:32 Body Mass Index 25.75 (68.04 kg, 162.56 cm) tw2 ED Course: 10:12 Patient arrived in ED. mr 10:16 [facility] jh7 10:16 Sergio Ghotra DO is Attending Physician. jh7 10:29 Arm band placed on. tw2 10:33 Triage completed. tw2 10:53 Bed in low position. Call light in reach. tw2 11:01 Inserted saline lock: 20 gauge in left antecubital area, using aseptic technique. Blood kc6 collected. 11:02 COVID-19 SARS RT PCR (Document "Date of Onset" if Symptomatic) Sent. kc6 11:02 Flu Sent. kc6 11:02 CMP Sent. kc6 11:02 CBC with Diff Sent. kc6 11:36 Marilu Farley, RN is Primary Nurse. iw 12:11 Primary Nurse role handed off by Marilu Farley, RN kb3 12:11 Ira Ponce, RN is Primary Nurse. kb3 12:51 No provider procedures requiring assistance completed. IV discontinued, intact, kb3 bleeding controlled, No redness/swelling at site. Administered Medications: 11:05 Drug: Zofran (Ondansetron) 4 mg Route: IVP; Site: left antecubital; tw2 12:52 Follow up: Response: No adverse reaction kb3 11:07 Drug: NS 0.9% 1000 ml Route: IV; Rate: 1 bolus; Site: left antecubital; tw2 12:15 Follow up: Response: No adverse reaction; IV Status: Completed infusion; IV Intake: kb3 1000ml 11:07 Drug: Pepcid (famotidine) 20 mg Route: IVP; Site: left antecubital; tw2 12:52 Follow up: Response: No adverse reaction kb3 12:43 Drug: Ketorolac 15 mg Route: IVP; Site: left antecubital; kb3 12:52 Follow up: Response: No adverse reaction kb3 12:43 Drug: Bentyl (dicyclomine) 20 mg Route: PO; kb3 12:52 Follow up: Response: No adverse reaction kb3 Medication: 10:35 VIS not applicable for this client. tw2 Intake: 12:15 IV: 1000ml; Total: 1000ml. kb3 Outcome: 12:34 Discharge ordered by . 7 12:51 Discharged to home ambulatory. kb3 12:51 Condition: stable 12:51 Discharge instructions given to patient, Instructed on discharge instructions, follow up and referral plans. medication usage, Demonstrated understanding of instructions, follow-up care, medications, Prescriptions given X 2. 12:53 Patient left the ED. kb3 Signatures: Clover Minor Marilu Farley, RN NASEEM iw Katharina Villela RN RN tw2 Stacie Vann FNP CLIENT SOLUTIONS MANAGER 7 Waleska Boyer 6 Ira Ponce, RN RN kb3 Corrections: (The following items were deleted from the chart) 10:33 10:29 Chief complaint: Patient states: abd pain + body aches since last . tw2 +D,+N, intolerance of food. liquid stools. tw2
--- NOTE | 2022-07-05 12:35 | EDPHYS ---
Physician Documentation [facility] Name: Jaleel Olivas Age: 41 yrs Sex: Male : 1980 Arrival Date: 07/05/2022 Time: 10:12 Bed 26 Private MD: ED Physician Sergio Ghotra HPI: 07/05 10:37 This 41 yrs old Male presents to ER via Ambulatory with complaints of jh7 Abdominal Pain, Body aches. 10:37 The patient presents with abdominal pain that is diffuse. Onset: The symptoms/episode jh7 began/occurred 6 day(s) ago. Associated signs and symptoms: Pertinent positives: nausea, vomiting, and diarrhea, Body aches. 41-year-old male presents with diffuse abdominal pain, body aches, nausea/vomiting/diarrhea since last . Denies any recent travel. The patient is HIV positive and is compliant with medications.. Historical: - Allergies: 10:31 Codeine (Hives); tw2 10:31 Tape; tw2 - PMHx: 10:31 HIV; Diabetes - NIDDM; Hypertension; tw2 - Immunization history:: Adult Immunizations Client reports receiving the 2nd dose of the Covid vaccine. - Social history:: Smoking status: Reported history of juuling and/or vaping. Patient uses alcohol, only on a social basis. ROS: 10:37 Eyes: Negative for injury, pain, redness, and discharge, ENT: Negative for injury, jh7 pain, and discharge, Neck: Negative for injury, pain, and swelling, Cardiovascular: Negative for chest pain, palpitations, and edema, Respiratory: Negative for shortness of breath, cough, wheezing, and pleuritic chest pain, Back: Negative for injury and pain, Skin: Negative for injury, rash, and discoloration, Neuro: Negative for headache, weakness, numbness, tingling, and seizure. 10:37 Constitutional: Positive for body aches, Negative for fever. 10:37 Abdomen/GI: Positive for abdominal pain, nausea, vomiting, and diarrhea, abdominal cramps, Negative for black/tarry stool, rectal pain. 10:37 All other systems are negative. Exam: 10:37 Constitutional: This is a well developed, well nourished patient who is awake, alert, jh7 and in no acute distress. Head/Face: Normocephalic, atraumatic. ENT: Nares patent. No nasal discharge, no septal abnormalities noted. Oropharynx with no redness, swelling, or masses, exudates, or evidence of obstruction, uvula midline. Mucous membranes moist. Neck: Trachea midline, no thyromegaly or masses palpated, and no cervical lymphadenopathy. Supple, full range of motion without nuchal rigidity, or vertebral point tenderness. No Meningismus. Cardiovascular: Regular rate and rhythm with a normal S1 and S2. No gallops, murmurs, or rubs. Normal PMI, no JVD. No pulse deficits. Respiratory: Lungs have equal breath sounds bilaterally, clear to auscultation and percussion. No rales, rhonchi or wheezes noted. No increased work of breathing, no retractions or nasal flaring. Back: No spinal tenderness. No costovertebral tenderness. Full range of motion. Skin: Warm, dry with normal turgor. Normal color with no rashes, no lesions, and no evidence of cellulitis. MS/ Extremity: Pulses equal, no cyanosis. Neurovascular intact. Full, normal range of motion. Neuro: Awake and alert, GCS 15, oriented to person, place, time, and situation. Motor strength 5/5 in all extremities. Sensory grossly intact. Normal gait. 10:37 Abdomen/GI: Inspection: abdomen appears normal, Bowel sounds: hyperactive, Palpation: abdomen is soft and non-tender. Vital Signs: 10:32 BP 173 / 104; Pulse 81; Resp 17; Temp 98.6(O); Pulse Ox 100% on R/A; Weight 68.04 kg; tw2 Height 5 ft. 4 in. (162.56 cm); Pain 8/10; 12:05 BP 175 / 94; Pulse 64; Resp 20; Pulse Ox 100% ; kb3 12:51 BP 156 / 99; Pulse 60; Resp 16; Pulse Ox 100% ; Pain 2/10; kb3 10:32 Body Mass Index 25.75 (68.04 kg, 162.56 cm) tw2 MDM: 10:16 Patient medically screened. [facility] 13:15 Differential diagnosis: non-specific abd pain, Gastroenteritis. Data reviewed: [facility] signs, nurses notes, lab test result(s). Data interpreted: Pulse oximetry: is 100 %. Interpretation: normal. Counseling: I had a detailed discussion with the patient and/or guardian regarding: the historical points, exam findings, and any diagnostic results supporting the discharge/admit diagnosis, to return to the emergency department if symptoms worsen or persist or if there are any questions or concerns that arise at home. Response to treatment: the patient's symptoms have markedly improved after treatment. 07/05 10:35 Order name: CBC with Diff; Complete Time: 12: [facility] 07/05 10:35 Order name: CMP; Complete Time: 11:52 [facility] 07/05 10:35 Order name: Flu; Complete Time: 12: [facility] 07/05 10:35 Order name: COVID-19 SARS RT PCR (Document "Date of Onset" if Symptomatic); Complete [facility] Time: 12:33 07/05 10:35 Order name: IV Start; Complete Time: 11:02 tw2 Administered Medications: 11:05 Drug: Zofran (Ondansetron) 4 mg Route: IVP; Site: left antecubital; tw2 12:52 Follow up: Response: No adverse reaction kb3 11:07 Drug: NS 0.9% 1000 ml Route: IV; Rate: 1 bolus; Site: left antecubital; tw2 12:15 Follow up: Response: No adverse reaction; IV Status: Completed infusion; IV Intake: kb3 1000ml 11:07 Drug: Pepcid (famotidine) 20 mg Route: IVP; Site: left antecubital; tw2 12:52 Follow up: Response: No adverse reaction kb3 12:43 Drug: Ketorolac 15 mg Route: IVP; Site: left antecubital; kb3 12:52 Follow up: Response: No adverse reaction kb3 12:43 Drug: Bentyl (dicyclomine) 20 mg Route: PO; kb3 12:52 Follow up: Response: No adverse reaction kb3 Disposition: 11:26 Co-signature as Attending Physician, Sergio Ghotra DO I agree with the assessment and ms3 plan of care. Disposition Summary: 07/05/22 12:34 Discharge Ordered Location: Home jh Problem: new jh7 Symptoms: have improved jh7 Condition: Stable jh7 Diagnosis - Noninfective gastroenteritis and colitis, unspecified jh7 Followup: [facility] - With: Private Physician - When: 2 - 3 days - Reason: Recheck today's complaints Discharge Instructions: - Discharge Summary Sheet jh7 - Diarrhea, Adult jh7 - Viral Gastroenteritis, Adult jh7 Forms: - Medication Reconciliation Form jh7 - Thank You Letter jh7 Prescriptions: - ondansetron 4 mg Oral tablet,disintegrating - place 1 tablet by TRANSLINGUAL route 4 times per day As needed; 20 tablet; jh7 Refills: 0, Product Selection Permitted - Levsin 0.125 mg Oral Tablet - take 1 tablet by ORAL route every 8 hours; 30 tablet; Refills: 0, Product jh7 Selection Permitted Signatures: Dispatcher [employer] Katharina Majano, RN RN tw2 Sergio Ghotra, DO ms3 Stacie Vann, CASINO [employer]AGE SUPERVISOR [employer] SUPERVISOR jh7 Ira Ponce, RN RN kb3
[2022-07-05] MEDS ORDERED: KETOROLAC 30 MG/ML INJ ONE (12:48)
[2022-07-05] MEDS ORDERED: DICYCLOMINE HCL 10 MG CAP ONE (12:48)
[2022-07-05 13:15] VITALS: TEMP 98.6; O2SAT 100
[2022-07-05 13:33] VITALS: BP 156/99
== END 2022-07-05 12:53 | disposition home or self-care (01) ==
LOC: ER 10:10
DX: K52.9 Noninfective gastroenteritis and colitis, unspecified (principal); I10 Essential (primary) hypertension; E11.9 Type 2 diabetes mellitus without complications; Z21 Asymptomatic human immunodeficiency virus [HIV] infection status; Z88.5 Allergy status to narcotic agent; Z91.048 Other nonmedicinal substance allergy status; Z20.822 Contact with and (suspected) exposure to COVID-19
CPT/HCPCS: 85025; 36415; 80053; 87804 ×2; U0003; J7030; J2405

== ENCOUNTER 2022-11-14 13:45 | Emergency (ER) | payer BC ==
--- OUTSIDE RECORDS SUMMARY | 2022-11-14 13:57 | XMS REPORT | Continuity of Care Document ---
:1980 Author Organization [facility] t Address [address] [place]. [address] [place] [address] Care Team Providers Name Role Phone Lesly Lea MD Primary Care Physician APOLINAR SMIHT Attending Clinician Unavailable Myrna Pratt Attending Clinician Unavailable Apolinar Lam Attending Clinician Visit, [facility] Id Nurse Attending Clinician Unavailable [facility] Attending Clinician Unavailable Doctor Unassigned, [place] Attending Clinician Unavailable Chari Siddiqi MD Attending Clinician [phone] BRAD HARRIS Attending Clinician Unavailable Regis Amanda RN, Awa Rodriguez Attending Clinician Unavailable Nurse, Pcp Immunization Attending Clinician Unavailable Hiram Erickson DO Attending Clinician HIRAM ERICKSON Attending Clinician Unavailable Cait Hendrickson RN Attending Clinician Unavailable Josep Cobos Attending Clinician JOSEP GUERRIER Attending Clinician Unavailable Patti García RN Attending Clinician Unavailable Only, Ang Db Test Attending Clinician Unavailable Unknown, Attending Attending Clinician Unavailable UNKNOWN, ATTENDING Attending Clinician Unavailable [facility] Attending Clinician Unavailable SEE BLACKWELL Attending Clinician Unavailable FIONA ESCOBEDO Attending Clinician Unavailable Lab, Adc Fam Pob I Attending Clinician Unavailable Fiona Kwon Attending Clinician Anatoly GUSMAN, Anastasia Edwards Attending Clinician Unavailable Reid Pelayo DO Attending Clinician ELISA MONTENEGRO Attending Clinician Unavailable Sheryl Aquino MD Attending Clinician [phone] Jacky Guadalupe MD Attending Clinician MARISOL ODONNELL Attending Clinician Unavailable Marisol Patrick Attending Clinician Sofya Hightower MA Attending Clinician Unavailable Cecy Tiwari Attending Clinician [phone] Uzair Sidhu Attending Clinician Unavailable Araceli Thomson Attending Clinician Unavailable Extra Hours, Salo Attending Clinician Unavailable Elva Nur Attending Clinician Unavailable Cuauhtemoc MedAdherence, Naomie Zhang Attending Clinician Unavailab Luna MedAdherence,, Chuck Attending Clinician Unavailable David MedAdherence, Jaci Attending Clinician Unavailaltagracia Caruso MedAdherence,, Marni Attending Clinician Unavailable Admin, [place] Attending Clinician Unavailable Caterina Palafox Attending Clinician Unavailable Derick Wilder Attending Clinician Unavailable Agustina Simpson Attending Clinician Unavailable Isabel Wilder Attending Clinician Unavailable Clarissa Dutton Attending Clinician Unavailable Kelli Lyles Attending Clinician Unavailable Dc Guerrero Attending Clinician [phone] Lizy Mcgregor Attending Clinician [phone] Tigre House Attending Clinician Unavailable Vanessa Loomis Attending Clinician Unavailable Marni Sr Attending Clinician Unavailable Elva Brown Attending Clinician Unavailable Denise Wilder Attending Clinician Unavailable Ashlee Verdugo Attending Clinician Unavailable Nestor Guzman Attending Clinician [phone] Silvia Hassan Attending Clinician Unavailable Leticia Linder Attending Clinician Unavailable Valerie Moore Attending Clinician Unavailable Camila Woodard Attending Clinician [phone] Samantha Cast Attending Clinician Unavailable Kasia Betancur Attending Clinician [phone] Robby Edwards Attending Clinician [phone] Az Islas Attending Clinician Unavailable Saloni Gil Attending Clinician Unavailable Sneha Dan Attending Clinician Unavailable Kiel Billy Attending Clinician Unavailable Casa Riggs Attending Clinician [phone] Shirley Encarnacion Attending Clinician [phone] Maribeth Abad Attending Clinician Unavailable Julio Govea Attending Clinician Unavailable Kaleigh Finney Attending Clinician Unavailable Carlos Alberto Bowen Attending Clinician Unavailable Nitza Alex Attending Clinician [phone] Wan Jeromeh Attending Clinician Unavailable Amanda Fuentes Attending Clinician [phone] Yolie Santiago Attending Clinician Unavailable Ameena Stringer Attending Clinician Unavailable Ivory Fontanez Attending Clinician [phone] Jamal Zelaya Attending Clinician [phone] Alejandro Saenz Attending Clinician Unavailable MARISOL ODONNELL Admitting Clinician Unavailable Cecy Tiwari Unavailable [phone] Dc Guerrero Unavailable [phone] [facility] Leatha Unavailable [id number] Payers Payer Name Policy Type Policy Number Effective Date Expiration Date S chetna [employer]ETNA [facility] [id number] 2017 00:00:00 AGENCY GENERIC [id number] 2019 00:00:00 [facility] BCBS BLUE [id number] 2021 [facility] AETNA 11 [id number] 2019 2020 [facility] 00:00:00 00:00:00 [facility] AETNA 11 [id number] 2019 2020 [facility] 00:00:00 00:00:00 [facility] AETNA CI [id number] 2019 2020 [facility] 00:00:00 00:00:00 [facility] AETNA 11 [id number] 2018 2019 [facility] 00:00:00 00:00:00 [facility] AETNA 11 [id number] 2016 2017 [facility] 00:00:00 00:00:00 [facility] AETNA 11 [id number] 2012 2017 [facility] 00:00:00 00:00:00 Community [facility] Problems Condition Condition Condition Status Onset Resolution Last Treating Co mments Source Name Details Category Date Date Treatment Clinician Date abscess, Condition Active 2019-04-26 Karie Legje perianal 04-26 16:07:35 Cecy Clark i 00:00: ty [address] [place] [address] Diabetes Condition Active 2017-12-21 Karie Adair mellitus, 04-17 10:15:14 Cecy Commu ni type II 00:00: ty 00 Health Hyperlipid Condition Active 2015-112017-07-20 Adair Tiwari emia 11-21 20:06:19 Cecy Garcia 00:00: ty 00 Health Preventive Condition Active 2015-112017-04-17 Adair Tiwari health 11-21 11:44:53 Cecy Clarki care 00:00: ty 00 Health ANXIETY Condition Active 2016-09-21 Cesar [facility] DISORDER, 07-21 09:37:47 Jinregis Commu ni UNSPECIFIE 00:00: ty D 00 Health Hallucinat Condition Active 2016-09-21 Adair Guerrero ions 06-09 09:37:47 Dc Garcia 00:00: ty 00 Health HEPATITIS Condition Active 2017-04-17 Adair Tiwari B, CHRONIC 05-06 11:44:53 Cecy Quevedo uni 00:00: ty 00 Health PTSD Condition Active 2016-09-21 Jerry Tiwari egacy 05-06 09:37:47 Cecy Garcia 00:00: ty 00 Health Intractabl Intractabl Disease Active U nivers e diarrhea e diarrhea 1-24 it y of 00:00: [place] 00 Medical Branch Hypertrigl Hypertrigl Disease Active U nivers yceridemia yceridemia 4-03 it y of 00:00: [place] 00 Medical Branch 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 ICD10 Diagnosis Term Behavioral Sciences Department Chair Utility History of History of Disease Active U nivers latent latent 4-25 ity of syphilis syphilis 00:00: [place] 00 Medical Branch Chronic Chronic Disease Recurre 2010-11 Univer s hepatitis hepatitis nce 2-19 ity of B B 00:00: [place] 00 Medical Branch Herpes Herpes Disease Active Overview: Univer s zoster zoster 04-06 Formattin ity of 00:00: g of this note Medical might be Branch different from the original. 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 04-06 it y of ciency ciency 00:00: [place] virus virus 00 Medical (HIV) (HIV) Branch disease disease Hypertensi Condition Active 2017-12-21 Adair Tiwari on 10:15:14 Cecy Communi ty Health HIV Condition Active 2017-12-21 Karie, No OI's, [facility] INFECTION 10:15:14 Cecy willie ~ Comm uni 259 ty Health History of Past Illness Condition Condition Condition Status Onset Resolution Last Treating Co mments Source Name Details Category Date Date Treatment Clinician Date Regular Condition Inactiv 2017-12-21 2017-12-21 Adair Tiwari astigmatis e 06-09 00:00:00 10:31:37 Cecy Co mmuni m, 00:00: ty bilateral 00 Health Myopia - Condition Inactiv 2017-12-21 2017-12-21 Adair Tiwari OU e 06-09 00:00:00 10:31:37 Ceyc Clark i 00:00: ty 00 Health Screening Condition Inactiv 2016-06-16 2016-06-09 Adair Riggs examinatio e 06-09 00:00:00 09:56:49 Casa Garcia n for 00:00: ty other 00 Health specified viral diseases SPECIAL Condition Inactiv 2011-112016-05-06 2016-05-06 Adair Tiwari SCREENING e 12-17 00:00:00 10:53:58 Cecy rosado EXAMINATIO 00:00: ty N OTH SPEC 00 Health VIRAL DZ MYOPIA Condition Inactiv 2011-112016-05-06 2016-05-06 Adair Tiwari e 12-17 00:00:00 10:53:58 Cecy Clark i 00:00: ty 00 Health ASTIGMATIS Condition Inactiv 2011-112016-05-06 2016-05-06 Adair Tiwari M e 12-17 00:00:00 10:53:58 Cecy Clark i 00:00: ty 00 Health Allergies, Adverse Reactions, Alerts Allergy Allergy Status Severity Reaction(s) Onset Inactive Treating Comm ents Source Name Type Date Date Clinician CODEINE Drug Active Low rash 2011-11 [facility] allergy Criticali 12-17 Commun i (disorde ty 00:00: ty r) 00 Health CODEINE DRUG Active High Rash Univers INGREDI 04-06 ity of 00:00: [place] 00 Medical Branch Codeine Propensi Active Rash Univers ty to 04-06 ity of adverse 00:00: [place] reaction 00 Medical s to Branch drug Social History Social Habit Start Date Stop Date Quantity Comments Source Exposure to 2022-09-30 2022-10-10 Not sure University SARS-CoV-2 (event) 00:00:00 11:13:00 [facility] Alcohol intake 2022-10-10 2022-10-10 Current University of 00:00:00 00:00:00 non-drinker of [facility] alcohol [place] (finding) Cigarettes smoked 2022-09-12 2022-09-12 Univers ity of current (pack per 00:00:00 00:00:00 [facility] ) - Reported Branch Cigarette pack-years 2022-09-12 2022-09-12 Univ ersity of 00:00:00 00:00:00 [facility] Tobacco use and 2022-09-12 2022-09-12 Smokeless Universit y of exposure 00:00:00 00:00:00 tobacco non-user [facility] albumin, serum 2019-11-02 2019-11-02 4.3 g/dL [facility] Com munity 11:10:00 11:10:00 Health drug use 2019-04-26 2019-04-26 Never [facility] Communi ty 15:28:24 15:28:24 Health alcohol use 2019-04-26 2019-04-26 Currently [facility] ity 15:28:24 15:28:24 Health social history 2019-04-26 2019-04-26 reviewed today [facility] reviewed E&M 15:28:24 15:28:24 Health social history E&M 2019-04-26 2019-04-26 Single. Not [facility] Community 15:28:24 15:28:24 homeless. Born Health in [facility]. City: [place]. State: [place]. Employed full-time. [employer] . Highest education [...] 2019-04-26 Adequate [facility] literacy (NCQA [facility] 15:28:24 15:28:24 Steve ross 2014 Standards, 3C10) time of call 2019-04-25 2019-04-25 04/25/2019 11:55 [facility] 11:55:04 11:55:04 AM Health smoking, advice to 2017-04-17 2017-04-17 Yes [facility] quit 10:47:27 10:47:27 Health cigarettes, number 2016-09-21 2016-09-[facility] 09:13:37 09:13:37 Health age [...] with a younger sister. Father was a [employer] employee and mother worked as a postal [...] 09:53:46 Health patient considered 2016-05-06 2016-05-06 [facility] 09:53:46 09:53:46 Health History of tobacco 2013-12-07 Cigarette Smoker University of use 00:00:00 [facility] Sex [birth year] At [birth year] Universit y of 00:00:00 00:00:00 [facility] Smoking Status Start Date Stop Date Source Ex-smoker 2022-09-12 00:00:00 2022-09-12 University o f [place] 00:00:[address] [facility] Smokes tobacco daily 2017-04-17 10:47:27 [facility] (finding) Occasional tobacco 2016-09-14 10:38:38 [facility] smoker (finding) Never smoked tobacco [facility] (finding) Medications Ordered Filled Start Stop Current Ordering Indication Dosage Frequency Signature Comments Components Source Medication Medication Date Date Medication? Clinician (SIG) Name Name [facility] 2021-11 Yes [id number] INJECT U nivers 1.5 mg/0.5 2-21 1.5MG ity of mL PnIj 00:00: UNDER THE [place] 00 SKIN Medical WEEKLY Branch lisinopriL 2021-11 Yes [id number] TAKE ONE Univers 40 mg 1-07 TABLET BY ity of tablet 00:00: MOUTH [place] DAILY Medical Branch lisinopriL 2021-11 Yes [id number] TAKE ONE Univers 40 mg 1-07 TABLET BY ity of tablet 00:00: [facility] DAILY Medical Branch lisinopriL 2021-11 Yes [id number] TAKE ONE Univers 40 mg 1-07 TABLET BY ity of tablet 00:00: MOUTH [place] DAILY Medical Branch lisinopriL 2021-11 Yes [id number] TAKE ONE Univers 40 mg 1-07 TABLET BY ity of tablet 00:00: MOUTH [place] DAILY Medical Branch lisinopriL 2021-11 Yes [id number] TAKE ONE Univers 40 mg 1-07 TABLET BY ity of tablet 00:00: MOUTH [place] DAILY Medical Branch lisinopriL 2021-11 Yes [id number] TAKE ONE Univers 40 mg 1-07 TABLET BY ity of tablet 00:00: MOUTH [place] DAILY Medical [facility] Yes [id number] INJECT U nivers 1.5 mg/0.5 9-28 1.5MG ity of mL PnIj 00:00: UNDER THE [place] SKIN Medical WEEKLY Branch TRULICITY Yes [id number] INJECT U nivers 1.5 mg/0.5 9-28 1.5MG ity of mL PnIj 00:00: UNDER THE SKIN Medical WEEKLY Branch TRULICITY 2021-0 Yes [id number] INJECT U nivers 1.5 mg/0.5 9-28 1.5MG ity of mL PnIj 00:00: UNDER THE [place] SKIN Medical WEEKLY Branch TRULICITY 2021-0 Yes [id number] INJECT U nivers 1.5 mg/0.5 9-28 1.5MG ity of mL PnIj 00:00: UNDER THE [place] SKIN Medical WEEKLY Branch TRULICITY Yes [id number] INJECT U nivers 1.5 mg/0.5 9-28 1.5MG ity of mL PnIj 00:00: UNDER THE [place] SKIN Medical WEEKLY Branch TRULICITY Yes [id number] INJECT U nivers 1.5 mg/0.5 9-28 1.5MG ity of mL PnIj 00:00: UNDER THE [place] SKIN Medical WEEKLY Branch TRULICITY 0 2021- No [id number] INJECT Univers 1.5 mg/0.5 9-28 12-21 1.5MG ity of mL PnIj 00:00: 00:00 UNDER THE [facility] 00 :00 SKIN Medical WEEKLY Branch FENOFIBRATE 2021-0 Yes [id number] TAKE ONE Univers 48 mg 9-09 TABLET BY ity of tablet 00:00: MOUTH DAILY Medical Branch metFORMIN 2-0 Yes [id number] TAKE ONE Univers 1,000 mg 9-09 TABLET BY ity of tablet 00:00: MOUTH TWICE A Medical DAY Branch lisinopriL 2021-0 Yes [id number] TAKE ONE Univers 20 mg 9-09 TABLET BY ity of tablet 00:00: MOUTH DAILY Medical Branch ODEFSEY 2021-0 Yes [id number] TAKE ONE Un nilsa 200-25-25 9-09 TABLET BY ity o f mg Tab 00:00: MOUTH DAILY WITH Medical FOOD Branch FENOFIBRATE 2021-0 Yes [id number] TAKE ONE Univers 48 mg 9-09 TABLET BY ity of tablet 00:00: MOUTH [place] 00 DAILY Medical Branch metFORMIN 2022-0 Yes [id number] TAKE ONE Univers 1,000 mg 9-09 TABLET BY ity of tablet 00:00: MOUTH [place] 00 TWICE A Medical DAY Branch lisinopriL 2022-0 Yes [id number] TAKE ONE Univers 20 mg 9-09 TABLET BY ity of tablet 00:00: MOUTH [place] 00 DAILY Medical Branch ODEFSEY 2022-0 Yes [id number] TAKE ONE Un nilsa 200-25-25 9-09 TABLET BY ity o f mg Tab 00:00: MOUTH [place] 00 DAILY WITH Medical FOOD Branch FENOFIBRATE 2022-0 Yes [id number] TAKE ONE Univers 48 mg 9-09 TABLET BY ity of tablet 00:00: MOUTH [place] 00 DAILY Medical Branch metFORMIN 2022-0 Yes [id number] TAKE ONE Univers 1,000 mg 9-09 TABLET BY ity of tablet 00:00: MOUTH [place] 00 TWICE A Medical DAY Branch lisinopriL 2022-0 Yes [id number] TAKE ONE Univers 20 mg 9-09 TABLET BY ity of tablet 00:00: MOUTH [place] 00 DAILY Medical Branch ODEFSEY 2022-0 Yes [id number] TAKE ONE Un nilsa 200-25-25 9-09 TABLET BY ity o f mg Tab 00:00: MOUTH [place] 00 DAILY WITH Medical FOOD Branch FENOFIBRATE 2022-0 Yes [id number] TAKE ONE Univers 48 mg 9-09 TABLET BY ity of tablet 00:00: MOUTH [place] 00 DAILY Medical Branch metFORMIN 2022-0 Yes [id number] TAKE ONE Univers 1,000 mg 9-09 TABLET BY ity of tablet 00:00: MOUTH [place] 00 TWICE A Medical DAY Branch lisinopriL 2022-0 Yes [id number] TAKE ONE Univers 20 mg 9-09 TABLET BY ity of tablet 00:00: MOUTH [place] 00 DAILY Medical Branch ODEFSEY 2022-0 Yes [id number] TAKE ONE Un nilsa 200-25-25 9-09 TABLET BY ity o f mg Tab 00:00: MOUTH [place] 00 DAILY WITH Medical FOOD Branch FENOFIBRATE 2022-0 Yes [id number] TAKE ONE Univers 48 mg 9-09 TABLET BY ity of tablet 00:00: MOUTH [place] 00 DAILY Medical Branch metFORMIN 2022-0 Yes [id number] TAKE ONE Univers 1,000 mg 9-09 TABLET BY ity of tablet 00:00: MOUTH [place] 00 TWICE A Medical DAY Branch ODEFSEY 2022-0 Yes [id number] TAKE ONE Un nilsa 200-25-25 9-09 TABLET BY ity o f mg Tab 00:00: MOUTH [place] 00 DAILY WITH Medical FOOD Branch FENOFIBRATE 2022-0 Yes [id number] TAKE ONE Univers 48 mg 9-09 TABLET BY ity of tablet 00:00: MOUTH [place] 00 DAILY Medical Branch metFORMIN 2022-0 Yes [id number] TAKE ONE Univers 1,000 mg 9-09 TABLET BY ity of tablet 00:00: MOUTH [place] 00 TWICE A Medical DAY Branch ODEFSEY 2022-0 Yes [id number] TAKE ONE Un nilsa 200-25-25 9-09 TABLET BY ity o f mg Tab 00:00: MOUTH [place] 00 DAILY WITH Medical FOOD Branch FENOFIBRATE 2-0 Yes [id number] TAKE ONE Univers 48 mg 9-09 TABLET BY ity of tablet 00:00: MOUTH [place] 00 DAILY Medical Branch metFORMIN 2022-0 Yes [id number] TAKE ONE Univers 1,000 mg 9-09 TABLET BY ity of tablet 00:00: MOUTH [place] 00 TWICE A Medical DAY Branch ODEFSEY 2022-0 Yes [id number] TAKE ONE Un nilsa 200-25-25 9-09 TABLET BY ity o f mg Tab 00:00: MOUTH [place] 00 DAILY WITH Medical FOOD Branch FENOFIBRATE 2022-0 Yes [id number] TAKE ONE Univers 48 mg 9-09 TABLET BY ity of tablet 00:00: MOUTH [place] 00 DAILY Medical Branch metFORMIN 2022-0 Yes [id number] TAKE ONE Univers 1,000 mg 9-09 TABLET BY ity of tablet 00:00: MOUTH [place] 00 TWICE A Medical DAY Branch ODEFSEY 2022-0 Yes [id number] TAKE ONE Un nilsa 200-25-25 9-09 TABLET BY ity o f mg Tab 00:00: MOUTH [place] 00 DAILY WITH Medical FOOD Branch FENOFIBRATE 2022-0 Yes [id number] TAKE ONE Univers 48 mg 9-09 TABLET BY ity of tablet 00:00: MOUTH [place] 00 DAILY Medical Branch metFORMIN 2022-0 Yes [id number] TAKE ONE Univers 1,000 mg 9-09 TABLET BY ity of tablet 00:00: MOUTH [place] 00 TWICE A Medical DAY Branch ODEFSEY 2022-0 Yes [id number] TAKE ONE Un nilsa 200-25-25 9-09 TABLET BY ity o f mg Tab 00:00: MOUTH 00 DAILY WITH Medical FOOD Branch FENOFIBRATE 2021-0 Yes [id number] TAKE ONE Univers 48 mg 9-09 TABLET BY ity of tablet 00:00: MOUTH [place] 00 DAILY Medical Branch metFORMIN 2021-0 Yes [id number] TAKE ONE Univers 1,000 mg 9-09 TABLET BY ity of tablet 00:00: MOUTH 00 TWICE A Medical DAY Branch ODEFSEY 2021-0 Yes [id number] TAKE ONE Un nilsa 200-25-25 9-09 TABLET BY ity o f mg Tab 00:00: MOUTH 00 DAILY WITH Medical FOOD Branch FREESTYLE Yes USE Univer s HELEN 14 7-05 DIRECTED ity of DAY SENSOR 00:00: EVERY 14 [place] DAYS Medical Branch FREESTYLE Yes USE Univer s HELEN 14 7-05 DIRECTED ity of DAY SENSOR 00:00: EVERY 14 [place] DAYS Medical Branch FREESTYLE Yes USE Univer s HELEN 14 7-05 DIRECTED ity of DAY SENSOR 00:00: EVERY 14 [place] 00 DAYS Medical Branch FREESTYLE 2021-0 Yes USE Univer s HELEN 14 7-05 DIRECTED ity of DAY SENSOR 00:00: EVERY 14 [place] DAYS Medical Branch FREESTYLE 2021-0 Yes USE Univer s HELEN 14 7-05 DIRECTED ity of DAY SENSOR 00:00: EVERY 14 [place] 00 DAYS Medical Branch FREESTYLE 2021-0 Yes USE Univer s HELEN 14 7-05 DIRECTED ity of DAY SENSOR 00:00: EVERY 14 [place] 00 DAYS Medical Branch FREESTYLE 2021-0 Yes USE Univer s HELEN 14 7-05 DIRECTED ity of DAY SENSOR 00:00: EVERY 14 [place] 00 DAYS Medical Branch FREESTYLE 2021-0 Yes USE Univer s HELEN 14 7-05 DIRECTED ity of DAY SENSOR 00:00: EVERY 14 [place] 00 DAYS Medical Branch FREESTYLE 0 Yes USE Univer s HELEN 14 7-05 DIRECTED ity of DAY SENSOR 00:00: EVERY 14 [place] 00 DAYS Medical Branch FREESTYLE 0 Yes USE Univer s HELEN 14 7-05 DIRECTED ity of DAY SENSOR 00:00: EVERY 14 [place] 00 Medical Branch TRULICITY Yes [id number] INJECT U nivers 1.5 mg/0.5 6-09 1.5MG ity of mL PnIj 00:00: UNDER THE [place] SKIN Medical WEEKLY Branch TRULICITY Yes [id number] INJECT U nivers 1.5 mg/0.5 6-09 1.5MG ity of mL PnIj 00:00: UNDER THE [place] SKIN Medical WEEKLY Branch TRULICITY 0 2021- No [id number] INJECT Univers 1.5 mg/0.5 -08-03 1.5MG ity of mL PnIj 00:00: 00:00 [place] THE [place] 00 :[place] SKIN Medical WEEKLY Branch ODEFSEY Yes [id number] TAKE 1 Univ ers 200-25-25 3-07 TABLET BY ity o f mg Tab 00:00: MOUTH [place] 00 EVERY DAY Medical WITH FOOD Branch lisinopriL Yes [id number] TAKE 1 U nivers 20 mg 3-07 TABLET BY ity of tablet 00:00: MOUTH [place] 00 EVERY DAY Medical Branch metFORMIN 2021-0 Yes [id number] TAKE 1 U nivers 1,000 mg 3-07 TABLET BY ity of tablet 00:00: MOUTH [place] 00 TWICE A Medical DAY Branch ODEFSEY 2021-0 2021- No [id number] TAKE 1 Uni vers 200-25-25 3-07 -09 TABLET BY ity of mg Tab 00:00: 00:00 MOUTH [place] 00 :00 EVERY DAY Medical WITH FOOD Branch lisinopriL 2021-0 2- No [id number] TAKE 1 Univers 20 mg 3-07 - TABLET BY ity of tablet 00:00: 00:00 MOUTH [place] 00 :00 EVERY DAY Medical Branch metFORMIN 2021-0 2021- No [id number] TAKE 1 Univers 1,000 mg 3-07 -09 TABLET BY ity o f tablet 00:00: 00:00 MOUTH [place] 00 :00 TWICE A Medical DAY Branch FENOFIBRATE 2021-0 Yes [id number] TAKE ONE Univers 48 mg 3-04 TABLET BY ity of tablet 00:00: MOUTH [place] 00 DAILY Medical Branch FENOFIBRATE 2021- No [id number] TAKE ONE Univers 48 mg 3-04 09-09 TABLET BY ity of tablet 00:00: 00:00 MOUTH [place] 00 :00 DAILY Medical Branch ondansetron 2020-11- No [id number] 8mg Take 1 Univers (ZOFRAN 0-14 06-20 tablet by ity of ODT) 8 mg 00:00: 00:00 mouth [place] disintegrat 00 :00 every 8 Medic al ing tablet (eight) Branch hours as needed for Nausea and Vomiting (N/V). flash Yes [id number] 1{kit} 1 Kit as U nivers glucose 6-21 needed (to ity of scanning 00:00: check [place] reader 00 glucose Medical (FREESTYLE levels). [facility] HELEN 14 DAY READER) [facility] flash Yes [id number] 1{kit} 1 Kit as U nivers glucose 6-21 needed (to ity of scanning 00:00: check [place] reader 00 glucose Medical (FREESTYLE levels). [facility] HELEN 14 DAY READER) [facility] flash Yes [id number] 1{kit} 1 Kit as U nivers glucose 6-21 needed (to ity of scanning 00:00: check [place] reader 00 glucose Medical (FREESTYLE levels). [facility] HELEN 14 DAY READER) [facility] flash Yes [id number] 1{kit} 1 Kit as U nivers glucose 6-21 needed (to ity of scanning 00:00: check [place] reader 00 glucose Medical (FREESTYLE levels). [facility] HELEN 14 DAY READER) [facility] flash Yes [id number] 1{kit} 1 Kit as U nivers glucose 6-21 needed (to ity of scanning 00:00: check [place] reader 00 glucose Medical (FREESTYLE levels). [facility] HELEN 14 DAY READER) [facility] flash Yes [id number] 1{kit} 1 Kit as U nivers glucose 6-21 needed (to ity of scanning 00:00: check [place] reader 00 glucose Medical (FREESTYLE levels). [facility] HELEN 14 DAY READER) [facility] flash Yes [id number] 1{kit} 1 Kit as U nivers glucose 6-21 needed (to ity of scanning 00:00: check [place] reader 00 glucose Medical (FREESTYLE levels). [facility] h HELEN 14 DAY READER) [facility] flash Yes [id number] 1{kit} 1 Kit as U nivers glucose 6-21 needed (to ity of scanning 00:00: check [place] reader 00 glucose Medical (FREESTYLE levels). [facility] HELEN 14 DAY READER) [facility] flash Yes [id number] 1{kit} 1 Kit as U nivers glucose 6-21 needed (to ity of scanning 00:00: check [place] reader 00 glucose Medical (FREESTYLE levels). [facility] HELEN 14 DAY READER) [facility] flash Yes [id number] 1{kit} 1 Kit as U nivers glucose 6-21 needed (to ity of scanning 00:00: check [place] reader 00 glucose Medical (FREESTYLE levels). [facility] HELEN 14 DAY READER) [facility] flash Yes [id number] 1{kit} 1 Kit as U nivers glucose 6-21 needed (to ity of scanning 00:00: check [place] reader 00 glucose Medical (FREESTYLE levels). [facility] HELEN 14 DAY READER) [facility] lamoTRIgine 2021- No 25mg Take 25 mg Univers 25 mg 02-04-20 by mouth ity of tablet 00:00: 00:00 daily. [place] 00 :00 Medical Branch COMPLERA 2018-11 Yes Cecy TAKE ONE [place] [facility] (EMTRICITAB 1-27 [place] TABLET BY Communi -RILPIVIR-T 00:00: MOUTH ONCE ty ENOFOVIR) [address] [facility] 200-25-300 FOOD. MG TABS STORE IN ORIGINAL BOTTLE AT ROOM TEMPERATUR E. (LISINOPRIL Yes Cecy 1{Table 1xD TAKE 1 L egacy ) 20 MG 7-15 [place] t} TABLET BY Comm uni TABS 00:00: MOUTH ty 00 EVERY DAY Health ANTABUSE 2017-11 Yes Zishan 1 1xD 1 By Mouth L egacy 250 MG ORAL 2-20 Samiuddin Every Day Communi TABLET 00:00: ty 00 Health (METFORMIN Yes Cecy 1 by mouth L egacy HCL) 500 MG 6-12 [place] twice a Co mmuni TABS 00:00: day ty 00 Health (NICOTINE) 2015-11 Yes [facility] -14-7 1-25 Communi MG/24HR KIT 00:00: ty 00 Health LEXAPRO Yes Zishan 1 By Mouth Le shine (ESCITALOPR 9-15 Samiudd[facility] Every Day Communi AM OXALATE) 00:00: ty 10 MG TABS 00 Health RISPERDAL 2018- No Robby 1 By Mouth L egacy (RISPERIDON 06-09 [facility] at bedtime Communi E) 2 MG 00:00: 00:00 ty TABS 00 :00 Health MIRTAZAPINE 2011-11 2018- No [facility] y (MIRTAZAPIN 2-10-25 Communi E TABS) 00:00: 00:00 ty TABS 00 :00 Health Immunizations Ordered Immunization Filled Immunization Date Status Commen ts Source Name Name VACCINIA, SMALLPOX 2022-10-11 Completed Univer sity of MONKEYPOX VACCINE 00:00:00 [place] [facility] LIVE, ADULT LOW DOSE Bran ch 0.1ML, PF,ID SMALLPOX MONKEYPOX 2022-10-11 Completed Univer sity of VACCINE LIVE JYNNEOS, 00:00:00 [facility] ADULT LOW DOSE 0.1ML, [facility] PF,ID Influenza Virus 2022-09-12 Completed Universit y of Vaccine Quad IM, 00:00:00 [facility] dical Preserv and ABX Free Bran ch 6 MO-64 YRS SARS-COV-2 COVID-19 2022-09-12 Completed Unive rsity of VACCINE 12 YRS+, 00:00:00 [place] [facility] BIVALENT 0.5ML, IM, Branc h (MODERNA BOOSTER) VACCINIA, SMALLPOX 2022-09-12 Completed Univer sity of MONKEYPOX VACCINE 00:00:00 [place] [facility] LIVE, 0.5ML, PF,SQ Branch Influenza Virus 2022-09-12 Completed Universit y of Vaccine Quad IM, 00:00:00 [place] [facility] Preserv and ABX Free Bran ch 6 MO-64 YRS SARS-COV-2 COVID-19 2022-09-12 Completed Unive rsity of VACCINE 12 YRS+, 00:00:00 [place] [facility] BIVALENT 0.5ML, IM, Branc h (MODERNA BOOSTER) VACCINIA, SMALLPOX 2022-09-12 Completed Univer sity of MONKEYPOX VACCINE 00:00:00 [place] [facility] LIVE, 0.5ML, PF,SQ Branch Influenza Virus 2022-09-12 Completed Universit y of Vaccine Quad IM, 00:00:00 [place] [facility] Preserv and ABX Free Bran ch 6 MO-64 YRS SARS-COV-2 COVID-19 2022-09-12 Completed Unive rsity of VACCINE 12 YRS+, 00:00:00 [place] [facility] BIVALENT 0.5ML, IM, Branc h (MODERNA BOOSTER) VACCINIA, SMALLPOX 2022-09-12 Completed Univer sity of MONKEYPOX VACCINE 00:00:00 [place] [facility] LIVE, 0.5ML, PF,SQ Branch Influenza Virus 2022-09-12 Completed Universit y of Vaccine Quad IM, 00:00:00 [place] [facility] Preserv and ABX Free Bran ch 6 MO-64 YRS SARS-COV-2 COVID-19 2022-09-12 Completed Unive rsity of VACCINE 12 YRS+, 00:00:00 [place] [facility] BIVALENT 0.5ML, IM, Branc h (MODERNA BOOSTER) VACCINIA, SMALLPOX 2022-09-12 Completed Univer sity of MONKEYPOX VACCINE 00:00:00 [place] [facility] LIVE, 0.5ML, PF,SQ Branch Influenza Virus 2022-09-12 Completed Universit y of Vaccine Quad IM, 00:00:00 [place] [facility] Preserv and ABX Free Bran ch 6 MO-64 YRS SARS-COV-2 COVID-19 2022-09-12 Completed Unive rsity of VACCINE 12 YRS+, 00:00:00 [place] [facility] BIVALENT 0.5ML, IM, Branc h (MODERNA BOOSTER) SMALLPOX MONKEYPOX 2022-09-12 Completed Univer sity of VACCINE LIVE JYNNEOS, 00:00:00 [facility] 0.5ML,PF,SQ Branch Meningococcal 2022-04-25 Completed University of Polysaccharide 00:00:00 [place] [facility] richard (groups A, C, Y and Branc h W-135) conjugate vaccine (MCV4P) Meningococcal 2022-04-25 Completed University of Polysaccharide 00:00:00 [place] [facility] (groups A, C, Y and Branc h W-135) conjugate vaccine (MCV4P) Meningococcal 2022-04-25 Completed University of Polysaccharide 00:00:00 [place] [facility] (groups A, C, Y and Branc h W-135) conjugate vaccine (MCV4P) Meningococcal 2022-04-25 Completed University of Polysaccharide 00:00:00 [place] [facility] (groups A, C, Y and Branc h W-135) conjugate vaccine (MCV4P) Meningococcal 2022-04-25 Completed University of Polysaccharide 00:00:00 [place] [facility] (groups A, C, Y and Branc h W-135) conjugate vaccine (MCV4P) Meningococcal 2022-04-25 Completed University of Polysaccharide 00:00:00 [place] [facility] (groups A, C, Y and Branc h W-135) conjugate vaccine (MCV4P) Meningococcal 2022-04-25 Completed University of Polysaccharide 00:00:00 [place] [facility] (groups A, C, Y and Branc h W-135) conjugate vaccine (MCV4P) Meningococcal 2022-04-25 Completed University of Polysaccharide 00:00:00 [place] [facility] (groups A, C, Y and Branc h W-135) conjugate vaccine (MCV4P) Meningococcal 2022-04-25 Completed University of Polysaccharide 00:00:00 [place] [facility] (groups A, C, Y and Branc h W-135) conjugate vaccine (MCV4P) Meningococcal 2022-04-25 Completed University of Polysaccharide 00:00:00 [place] [facility] (groups A, C, Y and Branc h W-135) conjugate vaccine (MCV4P) Meningococcal 2022-04-25 Completed University of Polysaccharide 00:00:00 [place] [facility] (groups A, C, Y and [...] y of Vaccine Quad IM 6-35 00:00:00 [facility] Influenza Virus 2021-08-11 Completed Universit y of Vaccine Quad IM, 00:00:00 [facility] dical Preserv and ABX Free Bran ch 6 MO-64 YRS Pneumococcal 2021-08-11 Completed University o f Polysaccharide, 00:00:00 [facility] ical PPSV23 (PNEUMOVAX) Branch Influenza Virus 2021-08-11 Completed Universit y of Vaccine Quad IM 6-35 00:00:00 [facility] Influenza Virus 2021-08-11 Completed Universit y of Vaccine Quad IM, 00:00:00 [facility] dical Preserv and ABX Free Bran ch 6 MO-64 YRS Pneumococcal 2021-08-11 Completed University o f Polysaccharide, 00:00:00 [facility] ical PPSV23 (PNEUMOVAX) [place] Influenza Virus 2021-08-11 Completed Universit y of Vaccine Quad IM 6-35 00:00:00 [facility] Influenza Virus 2021-08-11 Completed Universit y of Vaccine Quad IM, 00:00:00 [facility] dical Preserv and ABX Free Bran ch 6 MO-64 YRS Pneumococcal 2021-08-11 Completed University o f Polysaccharide, 00:00:00 [facility] ical PPSV23 (PNEUMOVAX) [place] Influenza Virus 2021-08-11 Completed Universit y of Vaccine Quad IM 6-35 00:00:00 [facility] Influenza Virus 2021-08-11 Completed Universit y of Vaccine Quad IM, 00:00:00 [facility] dical Preserv and ABX Free Bran ch 6 MO-64 YRS Pneumococcal 2021-08-11 Completed University o f Polysaccharide, 00:00:00 [facility] ical PPSV23 (PNEUMOVAX) [place] Influenza Virus 2021-08-11 Completed Universit y of Vaccine Quad IM 6-35 00:00:00 [facility] Influenza Virus 2021-08-11 Completed Universit y of Vaccine Quad IM, 00:00:00 [facility] dical Preserv and ABX Free Bran ch 6 MO-64 YRS Pneumococcal 2021-08-11 Completed University o f Polysaccharide, 00:00:00 [facility] ical PPSV23 (PNEUMOVAX) [place] Influenza Virus 2021-08-11 Completed Universit y of Vaccine Quad IM 6-35 00:00:00 [facility] Influenza Virus 2021-08-11 Completed Universit y of Vaccine Quad IM, 00:00:00 [facility] dical Preserv and ABX Free Bran ch 6 MO-64 YRS Pneumococcal 2021-08-11 Completed University o f Polysaccharide, 00:00:00 [facility] ical PPSV23 (PNEUMOVAX) [place] Influenza Virus 2021-08-11 Completed Universit y of Vaccine Quad IM 6-35 00:00:00 [facility] Influenza Virus 2021-08-11 Completed Universit y of Vaccine Quad IM, 00:00:00 [facility] dical Preserv and ABX Free Bran ch 6 MO-64 YRS Pneumococcal 2021-08-11 Completed University o f Polysaccharide, 00:00:00 [facility] ical PPSV23 (PNEUMOVAX) [place] Influenza Virus 2021-08-11 Completed Universit y of Vaccine Quad IM 6-35 00:00:00 [facility] Influenza Virus 2021-08-11 Completed Universit y of Vaccine Quad IM, 00:00:00 [facility] dical Preserv and ABX Free Bran ch 6 MO-64 YRS Pneumococcal 2021-08-11 Completed University o f Polysaccharide, 00:00:00 [facility] ical PPSV23 (PNEUMOVAX) [place] Influenza Virus 2021-08-11 Completed Universit y of Vaccine Quad IM 6-35 00:00:00 [facility] Influenza Virus 2021-08-11 Completed Universit y of Vaccine Quad IM, 00:00:00 [facility] dical Preserv and ABX Free Bran ch 6 MO-64 YRS Pneumococcal 2021-08-11 Completed University o f Polysaccharide, 00:00:00 [facility] ical PPSV23 (PNEUMOVAX) [place] Influenza Virus 2021-08-11 Completed Universit y of Vaccine Quad IM 6-35 00:00:00 [facility] Influenza Virus 2021-08-11 Completed Universit y of Vaccine Quad IM, 00:00:00 [facility] dical Preserv and ABX Free Bran ch 6 MO-64 YRS Pneumococcal 2021-08-11 Completed University o f Polysaccharide, 00:00:00 [facility] ical PPSV23 (PNEUMOVAX) [place] Influenza Virus 2021-08-11 Completed Universit y of Vaccine Quad IM 6-35 00:00:00 [facility] Influenza Virus 2021-08-11 Completed Universit y of Vaccine Quad IM, 00:00:00 [facility] dical Preserv and ABX Free Bran ch 6 MO-64 YRS Pneumococcal 2021-08-11 Completed University o f Polysaccharide, 00:00:00 [facility] ical PPSV23 (PNEUMOVAX) [place] Influenza Virus 2019-09-18 Completed Universit y of Vaccine 00:00:00 [facility] Influenza Virus 2019-09-18 Completed Universit y of Vaccine 00:00:00 [facility] Influenza Virus 2019-09-18 Completed Universit y of Vaccine 00:00:00 [facility] Influenza Virus 2019-09-18 Completed Universit y of Vaccine 00:00:00 [facility] Influenza Virus 2019-09-18 Completed Universit y of Vaccine 00:00:00 [facility] Influenza Virus 2019-09-18 Completed Universit y of Vaccine 00:00:00 [facility] Influenza Virus 2019-09-18 Completed Universit y of Vaccine 00:00:00 [facility] Influenza Virus 2019-09-18 Completed Universit y of Vaccine 00:00:00 [facility] Influenza Virus 2019-09-18 Completed Universit y of Vaccine 00:00:00 [facility] Influenza Virus 2019-09-18 Completed Universit y of Vaccine 00:00:00 [facility] Influenza Virus 2019-09-18 Completed Universit y of Vaccine 00:00:00 [facility] flu vax 2018-07-07 Completed [facility] 10:03:13 [facility] flu vax 2017-09-06 Completed [facility] 11:35:57 Health pneumovax 2017-07-20 Completed [facility] 12:39:39 Health flu vax 2016-09-21 Completed [facility] 09:13:37 Health pneumped1 2016-05-06 Completed [facility] 09:53:46 Health Pneumococcal 13 2014-09-17 Completed Universit y of Conjugate, PCV13 00:00:00 [place] [facility] (Prevnar 13) Branch Influenza Virus 2014-09-17 Completed Universit y of Vaccine Quad IM 3+ 00:00:00 [facility] Pneumococcal 13 2014-09-17 Completed Universit y of Conjugate, PCV13 00:00:00 [place] [facility] (Prevnar 13) Branch Influenza Virus 2014-09-17 Completed Universit y of Vaccine Quad IM 3+ 00:00:00 [facility] Pneumococcal 13 2014-09-17 Completed Universit y of Conjugate, PCV13 00:00:00 [place] [facility] (Prevnar 13) Branch Influenza Virus 2014-09-17 Completed Universit y of Vaccine Quad IM 3+ 00:00:00 [facility] Pneumococcal 13 2014-09-17 Completed Universit y of Conjugate, PCV13 00:00:00 [place] [facility] (Prevnar 13) [place] Influenza Virus 2014-09-17 Completed Universit y of Vaccine Quad IM 3+ 00:00:00 [facility] Pneumococcal 13 2014-09-17 Completed Universit y of Conjugate, PCV13 00:00:00 [place] [facility] (Prevnar 13) [place] Influenza Virus 2014-09-17 Completed Universit y of Vaccine Quad IM 3+ 00:00:00 [facility] Pneumococcal 13 2014-09-17 Completed Universit y of Conjugate, PCV13 00:00:00 [place] [facility] (Prevnar 13) [place] Influenza Virus 2014-09-17 Completed Universit y of Vaccine Quad IM 3+ 00:00:00 [facility] Pneumococcal 13 2014-09-17 Completed Universit y of Conjugate, PCV13 00:00:00 [facility] dical (Prevnar 13) [place] Influenza Virus 2014-09-17 Completed Universit y of Vaccine Quad IM 3+ 00:00:00 [facility] Pneumococcal 13 2014-09-17 Completed Universit y of Conjugate, PCV13 00:00:00 [facility] dical (Prevnar 13) [place] Influenza Virus 2014-09-17 Completed Universit y of Vaccine Quad IM 3+ 00:00:00 [facility] Pneumococcal 13 2014-09-17 Completed Universit y of Conjugate, PCV13 00:00:00 [facility] dical (Prevnar 13) [place] Influenza Virus 2014-09-17 Completed Universit y of Vaccine Quad IM 3+ 00:00:00 [facility] Pneumococcal 13 2014-09-17 Completed Universit y of Conjugate, PCV13 00:00:00 [facility] dical (Prevnar 13) [place] Influenza Virus 2014-09-17 Completed Universit y of Vaccine Quad IM 3+ 00:00:00 [facility] Pneumococcal 13 2014-09-17 Completed Universit y of Conjugate, PCV13 00:00:00 [facility] dical (Prevnar 13) [place] Influenza Virus 2014-09-17 Completed Universit y of Vaccine Quad IM 3+ 00:00:00 [facility] HEPATITIS A 2014-04-23 Completed University of 00:00:00 [facility] HEPATITIS A 2014-04-23 Completed University of 00:00:00 [facility] HEPATITIS A 2014-04-23 Completed University of 00:00:00 [facility] HEPATITIS A 2014-04-23 Completed University of 00:00:00 [facility] HEPATITIS A 2014-04-23 Completed University of 00:00:00 [facility] HEPATITIS A 2014-04-23 Completed University of 00:00:00 [facility] HEPATITIS A 2014-04-23 Completed University of 00:00:00 [facility] HEPATITIS A 2014-04-23 Completed University of 00:00:00 [facility] HEPATITIS A 2014-04-23 Completed University of 00:00:00 [facility] HEPATITIS A 2014-04-23 Completed University of 00:00:00 [facility] HEPATITIS A 2014-04-23 Completed University of 00:00:00 [facility] PPD (TB) 2012-08-01 Completed University of 00:00:00 [facility] Influenza Virus 2012-08-01 Completed Universit y of Vaccine 00:00:00 [facility] PPD (TB) 2012-08-01 Completed University of 00:00:00 [facility] Influenza Virus 2012-08-01 Completed Universit y of Vaccine 00:00:00 [facility] PPD (TB) 2012-08-01 Completed University of 00:00:00 [facility] Influenza Virus 2012-08-01 Completed Universit y of Vaccine 00:00:00 [facility] PPD (TB) 2012-08-01 Completed University of 00:00:00 [facility] Influenza Virus 2012-08-01 Completed Universit y of Vaccine 00:00:00 [facility] PPD (TB) 2012-08-01 Completed University of 00:00:00 [facility] Influenza Virus 2012-08-01 Completed Universit y of Vaccine 00:00:00 [facility] PPD (TB) 2012-08-01 Completed University of 00:00:00 [facility] Influenza Virus 2012-08-01 Completed Universit y of Vaccine 00:00:00 [facility] PPD (TB) 2012-08-01 Completed University of 00:00:00 [facility] Influenza Virus 2012-08-01 Completed Universit y of Vaccine 00:00:00 [facility] PPD (TB) 2012-08-01 Completed University of 00:00:00 [facility] Influenza Virus 2012-08-01 Completed Universit y of Vaccine 00:00:00 [facility] PPD (TB) 2012-08-01 Completed University of 00:00:00 [facility] Influenza Virus 2012-08-01 Completed Universit y of Vaccine 00:00:00 [facility] PPD (TB) 2012-08-01 Completed University of 00:00:00 [facility] Influenza Virus 2012-08-01 Completed Universit y of Vaccine 00:00:00 [facility] PPD (TB) 2012-08-01 Completed University of 00:00:00 [facility] Influenza Virus 2012-08-01 Completed Universit y of Vaccine 00:00:00 [facility] Influenza Virus 2011-07-25 Completed Universit y of Vaccine 00:00:00 [facility] Influenza Virus 2011-07-25 Completed Universit y of Vaccine 00:00:00 [facility] Influenza Virus 2011-07-25 Completed Universit y of Vaccine 00:00:00 [facility] Influenza Virus 2011-07-25 Completed Universit y of Vaccine 00:00:00 [facility] Influenza Virus 2011-07-25 Completed Universit y of Vaccine 00:00:00 [facility] Influenza Virus 2011-07-25 Completed Universit y of Vaccine 00:00:00 [facility] Influenza Virus 2011-07-25 Completed Universit y of Vaccine 00:00:00 [facility] Influenza Virus 2011-07-25 Completed Universit y of Vaccine 00:00:00 [facility] Influenza Virus 2011-07-25 Completed Universit y of Vaccine 00:00:00 [facility] Influenza Virus 2011-07-25 Completed Universit y of Vaccine 00:00:00 [facility] Influenza Virus 2011-07-25 Completed Universit y of Vaccine 00:00:00 [facility] TDAP (ADACEL) VACCINE 2011-04-19 Completed Uni versity of 00:00:00 [facility] Pneumococcal 2011-04-19 Completed University o f Polysaccharide, 00:00:00 [place] [facility] PPSV23 (PNEUMOVAX) Branch PPD (TB) 2011-04-19 Completed University of 00:00:00 [facility] TDAP (ADACEL) VACCINE 2011-04-19 Completed Uni versity of 00:00:00 [facility] Pneumococcal 2011-04-19 Completed University o f Polysaccharide, 00:00:00 [place] [facility] PPSV23 (PNEUMOVAX) Branch PPD (TB) 2011-04-19 Completed University of 00:00:00 [facility] TDAP (ADACEL) VACCINE 2011-04-19 Completed Uni versity of 00:00:00 [facility] Pneumococcal 2011-04-19 Completed University o f Polysaccharide, 00:00:00 [place] [facility] PPSV23 (PNEUMOVAX) Branch PPD (TB) 2011-04-19 Completed University of 00:00:00 [facility] TDAP (ADACEL) VACCINE 2011-04-19 Completed Uni versity of 00:00:00 [facility] Pneumococcal 2011-04-19 Completed University o f Polysaccharide, 00:00:00 [place] [facility] PPSV23 (PNEUMOVAX) Branch PPD (TB) 2011-04-19 Completed University of 00:00:00 [facility] TDAP (ADACEL) VACCINE 2011-04-19 Completed Uni versity of 00:00:00 [facility] Pneumococcal 2011-04-19 Completed University o f Polysaccharide, 00:00:00 [place] [facility] PPSV23 (PNEUMOVAX) Branch PPD (TB) 2011-04-19 Completed University of 00:00:00 [facility] TDAP (ADACEL) VACCINE 2011-04-19 Completed Uni versity of 00:00:00 [facility] Pneumococcal 2011-04-19 Completed University o f Polysaccharide, 00:00:00 [place] [facility] PPSV23 (PNEUMOVAX) Branch PPD (TB) 2011-04-19 Completed University of 00:00:00 [facility] TDAP (ADACEL) VACCINE 2011-04-19 Completed Uni versity of 00:00:00 [facility] Pneumococcal 2011-04-19 Completed University o f Polysaccharide, 00:00:00 [place] [facility] PPSV23 (PNEUMOVAX) Branch PPD (TB) 2011-04-19 Completed University of 00:00:00 [facility] TDAP (ADACEL) VACCINE 2011-04-19 Completed Uni versity of 00:00:00 [facility] Pneumococcal 2011-04-19 Completed University o f Polysaccharide, 00:00:00 [place] [facility] PPSV23 (PNEUMOVAX) Branch PPD (TB) 2011-04-19 Completed University of 00:00:00 [facility] TDAP (ADACEL) VACCINE 2011-04-19 Completed Uni versity of 00:00:00 [facility] Pneumococcal 2011-04-19 Completed University o f Polysaccharide, 00:00:00 [place] [facility] PPSV23 (PNEUMOVAX) Branch PPD (TB) 2011-04-19 Completed University of 00:00:00 [facility] TDAP (ADACEL) VACCINE 2011-04-19 Completed Uni versity of 00:00:00 [facility] Pneumococcal 2011-04-19 Completed University o f Polysaccharide, 00:00:00 [place] [facility] PPSV23 (PNEUMOVAX) Branch PPD (TB) 2011-04-19 Completed University of 00:00:00 [facility] TDAP (ADACEL) VACCINE 2011-04-19 Completed Uni versity of 00:00:00 [facility] Pneumococcal 2011-04-19 Completed University o f Polysaccharide, 00:00:00 [facility] ical PPSV23 (PNEUMOVAX) Branch PPD (TB) 2011-04-19 Completed University of 00:00:00 [facility] PPD (TB) 2010-07-02 Completed University of 00:00:00 [facility] PPD (TB) 2010-07-02 Completed University of 00:00:00 [facility] PPD (TB) 2010-07-02 Completed University of 00:00:00 [facility] PPD (TB) 2010-07-02 Completed University of 00:00:00 [facility] PPD (TB) 2010-07-02 Completed University of 00:00:00 [facility] PPD (TB) 2010-07-02 Completed University of 00:00:00 [facility] PPD (TB) 2010-07-02 Completed University of 00:00:00 [facility] PPD (TB) 2010-07-02 Completed University of 00:00:00 [facility] PPD (TB) 2010-07-02 Completed University of 00:00:00 [facility] PPD (TB) 2010-07-02 Completed University of 00:00:00 [facility] PPD (TB) 2010-07-02 Completed University of 00:00:00 [facility] HEPATITIS A 2010-01-08 Completed University of 00:00:00 [facility] HEPATITIS A 2010-01-08 Completed University of 00:00:00 [facility] HEPATITIS A 2010-01-08 Completed University of 00:00:00 [facility] HEPATITIS A 2010-01-08 Completed University of 00:00:00 [facility] HEPATITIS A 2010-01-08 Completed University of 00:00:00 [facility] HEPATITIS A 2010-01-08 Completed University of 00:00:00 [facility] HEPATITIS A 2010-01-08 Completed University of 00:00:00 [facility] HEPATITIS A 2010-01-08 Completed University of 00:00:00 [facility] HEPATITIS A 2010-01-08 Completed University of 00:00:00 [facility] HEPATITIS A 2010-01-08 Completed University of 00:00:00 [facility] HEPATITIS A 2010-01-08 Completed University of 00:00:00 [facility] TDAP 2009-04-16 Completed University of 00:00:00 [facility] HEPATITIS A 2009-04-16 Completed University of 00:00:00 [facility] Branch Pneumococcal 2009-04-16 Completed University o f Polysaccharide, 00:00:00 [place] [facility] PPSV23 (PNEUMOVAX) Branch TDAP 2009-04-16 Completed University of 00:00:00 [facility] HEPATITIS A 2009-04-16 Completed University of 00:00:00 [facility] Pneumococcal 2009-04-16 Completed University o f Polysaccharide, 00:00:00 [place] [facility] PPSV23 (PNEUMOVAX) Branch TDAP 2009-04-16 Completed University of 00:00:00 [facility] HEPATITIS A 2009-04-16 Completed University of 00:00:00 [facility] Branch Pneumococcal 2009-04-16 Completed University o f Polysaccharide, 00:00:00 [place] [facility] PPSV23 (PNEUMOVAX) Branch TDAP 2009-04-16 Completed University of 00:00:00 [facility] HEPATITIS A 2009-04-16 Completed University of 00:00:00 [facility] Pneumococcal 2009-04-16 Completed University o f Polysaccharide, 00:00:00 [place] [facility] PPSV23 (PNEUMOVAX) Branch TDAP 2009-04-16 Completed University of 00:00:00 [facility] HEPATITIS A 2009-04-16 Completed University of 00:00:00 [facility] Pneumococcal 2009-04-16 Completed University o f Polysaccharide, 00:00:00 [place] [facility] PPSV23 (PNEUMOVAX) Branch TDAP 2009-04-16 Completed University of 00:00:00 [facility] HEPATITIS A 2009-04-16 Completed University of 00:00:00 [facility] Pneumococcal 2009-04-16 Completed University o f Polysaccharide, 00:00:00 [place] [facility] PPSV23 (PNEUMOVAX) Branch TDAP 2009-04-16 Completed University of 00:00:00 [facility] HEPATITIS A 2009-04-16 Completed University of 00:00:00 [facility] Pneumococcal 2009-04-16 Completed University o f Polysaccharide, 00:00:00 [place] [facility] PPSV23 (PNEUMOVAX) Branch TDAP 2009-04-16 Completed University of 00:00:00 [facility] HEPATITIS A 2009-04-16 Completed University of 00:00:00 [facility] Pneumococcal 2009-04-16 Completed University o f Polysaccharide, 00:00:00 [place] [facility] PPSV23 (PNEUMOVAX) Branch TDAP 2009-04-16 Completed University of 00:00:00 [facility] HEPATITIS A 2009-04-16 Completed University of 00:00:00 [facility] Pneumococcal 2009-04-16 Completed University o f Polysaccharide, 00:00:00 [place] [facility] PPSV23 (PNEUMOVAX) Branch TDAP 2009-04-16 Completed University of 00:00:00 [facility] HEPATITIS A 2009-04-16 Completed University of 00:00:00 [facility] Pneumococcal 2009-04-16 Completed University o f Polysaccharide, 00:00:00 [place] [facility] PPSV23 (PNEUMOVAX) Branch TDAP 2009-04-16 Completed University of 00:00:00 [facility] HEPATITIS A 2009-04-16 Completed [facility] of 00:00:00 [facility] Pneumococcal 2009-04-16 Completed University o f Polysaccharide, 00:00:00 [place] [facility] PPSV23 (PNEUMOVAX) Branch Vital Signs Vital Name Observation Time Observation Value Comments Source Systolic blood 2022-10-10 18:03:00 147 mm[Hg] Univer sity of pressure [facility] Diastolic blood 2022-10-10 18:03:00 94 mm[Hg] Unive [facility] Heart rate 2022-10-10 18:03:00 86 /min [facility] Body temperature 2022-10-10 18:01:00 36.89 Christin [facility] Respiratory rate 2022-10-10 18:01:00 18 /min [facility] Body height 2022-10-10 18:01:[address] [facility] Body weight 2022-10-10 18:01:[address] [facility] BMI 2022-10-10 18:01:00 24.46 kg/m2 [facility] Oxygen saturation in 2022-10-10 18:01:00 98 /min [facility] Arterial blood by [facility] Pulse oximetry Branch Systolic blood 2022-04-25 19:06:00 164 mm[Hg] Univer sity of pressure [facility] Diastolic blood 2022-04-25 19:06:00 93 mm[Hg] Unive rsity of pressure [facility] Heart rate 2022-04-25 19:06:00 76 /min [facility] Body temperature 2022-04-25 19:05:00 36.67 [facility]in [facility] 2022-04-25 19:05:[address] [facility] Body weight 2022-04-25 19:05:[address] [facility] BMI 2022-04-25 19:05:00 25.95 kg/m2 [facility] temperature E&M 2019-04-26 15:28:24 98.1 [degF] Legac [facility] Health blood pressure, 2019-04-26 15:28:24 98 mm[Hg] Legac [facility] diastolic Health blood pressure, 2019-04-26 15:28:24 144 mm[Hg] Legac y [facility] systolic Health pulse rate 2019-04-26 15:28:24 112 /min [facility] oxygen saturation, 2019-04-26 15:28:24 98 /min [facility] oximetry Health weight E&M 2019-04-26 15:28:24 145 [lb_av] [facility] weight in kilograms 2019-04-26 15:28:24 65.91 kg L [facility] Health height in 2019-04-26 15:28:24 165.10 cm [facility] centimeters [facility] Health temperature site 2019-04-26 15:28:24 oral Lega cy [facility] Health blood pressure, 2018-12-24 09:50:41 99 mm[Hg] Legac y [facility] diastolic Health blood pressure, 2018-12-24 09:50:41 155 mm[Hg] Legac y [facility] systolic Health pulse rate 2018-12-24 09:50:41 91` /min [facility] weight E&M 2018-12-24 09:50:41 157 [lb_av] [facility] weight in kilograms 2018-12-24 09:50:41 71.36 kg L [facility] height in 2018-12-24 09:50:41 165.10 cm [facility] centimeters [facility] blood pressure, 2018-12-21 09:56:09 86 mm[Hg] Legac y [facility] diastolic Health blood pressure, 2018-12-21 09:56:09 136 mm[Hg] Legac y [facility] systolic Health weight E&M 2018-12-21 09:56:09 153 [lb_av] [facility] weight in kilograms 2018-12-21 09:56:09 69.55 kg L [facility] oxygen saturation, 2018-12-21 09:56:09 98 /min Tadeo [facility] oximetry Health respiratory rate E&M 2018-12-21 09:56:09 16 /min [facility] pulse rate 2018-12-21 09:56:09 102 /min [facility] temperature E&M 2018-12-21 09:56:09 98.1 [degF] Legac y [facility] Health height in 2018-12-21 09:56:09 165.10 cm [facility] centimeters [facility]M Health temperature site 2018-12-21 09:56:09 oral Lega cy [facility] Health blood pressure, 2018-10-25 11:52:22 89 mm[Hg] Legac y [facility] diastolic Health blood pressure, 2018-10-25 11:52:22 166 mm[Hg] Legac y [facility] systolic Health pulse rate 2018-10-25 11:52:22 83 /min [facility] weight E&M 2018-10-25 11:52:22 161 [lb_av] [facility] weight in kilograms 2018-10-25 11:52:22 73.18 kg L [facility] E& Health height in 2018-10-25 11:52:22 165.10 cm [facility] centimeters [facility] Health blood pressure, 2017-12-21 10:04:46 90 mm[Hg] Legac y [facility] diastolic Health blood pressure, 2017-12-21 10:04:46 139 mm[Hg] Legac y [facility] systolic Health respiratory rate E&M 2017-12-21 10:04:46 16 /min [facility] Health pulse rate 2017-12-21 10:04:46 66 /min [facility] oxygen saturation, 2017-12-21 10:04:46 98 /[facility] 2017-12-21 10:04:46 98.1 [degF] Legac [facility] Health height in 2017-12-21 10:04:46 165.10 cm [facility] E&M Health weight E&M 2017-12-21 10:04:46 161 [lb_av] [facility] weight in kilograms 2017-12-21 10:04:46 73.18 kg L [facility] E& Health temperature site 2017-12-21 10:04:46 tympanic Lega [facility] Health blood pressure, 2017-07-20 12:39:39 87 mm[Hg] Legac [facility] diastolic Health blood pressure, 2017-07-20 12:39:39 138 mm[Hg] Legac [facility] systolic Health pulse rate 2017-07-20 12:39:39 76 /min [facility] Health respiratory rate E&M 2017-07-20 12:39:39 16 /min [facility] oxygen saturation, 2017-07-20 12:39:39 97 /min [facility] E&M 2017-07-20 12:39:39 98.7 [degF] [facility] E&M 2017-07-20 12:39:39 161.80 [lb_av] [facility] Health weight in kilograms 2017-07-20 12:39:39 73.55 kg L [facility] E Health height in 2017-07-20 12:39:39 165.10 cm [facility] centimeters E&M Health temperature site 2017-07-20 12:39:39 tympanic Lega [facility] Health blood pressure, 2017-04-17 10:47:27 100 mm[Hg] Legac [facility] diastolic Health blood pressure, 2017-04-17 10:47:27 138 mm[Hg] Legac [facility] systolic Health pulse rate 2017-04-17 10:47:27 103 /min [facility] respiratory rate E&M 2017-04-17 10:47:27 16 /min [facility] oxygen saturation, 2017-04-17 10:47:27 98 /min [facility] E&M 2017-04-17 10:47:27 99.5 [degF] Legac y [facility] Health weight E&M 2017-04-17 10:47:27 151 [lb_av] [facility] weight in kilograms 2017-04-17 10:47:27 68.64 kg L [facility] height in 2017-04-17 10:47:27 165.10 cm [facility] centimeters [facility]M Health temperature site 2017-04-17 10:47:27 tympanic Lega [facility] Health blood pressure, 2016-10-20 10:15:15 88 mm[Hg] Legac y [facility] diastolic Health blood pressure, 2016-10-20 10:15:15 135 mm[Hg] Legac y [facility] systolic Health pulse rate 2016-10-20 10:15:15 92 /min [facility] weight E&M 2016-10-20 10:15:15 175.13 [lb_av] [facility] weight in kilograms 2016-10-20 10:15:15 79.60 kg L [facility] E& Health height in 2016-10-20 10:15:15 165.10 cm [facility] centimeters E& Health blood pressure, 2016-09-21 09:13:37 80 mm[Hg] Legac y [facility] diastolic Health blood pressure, 2016-09-21 09:13:37 130 mm[Hg] Legac y [facility] systolic Health pulse rate 2016-09-21 09:13:37 85 /min [facility] oxygen saturation, 2016-09-21 09:13:37 98 /min Tadeo riojas [facility] oximetry Health temperature E&M 2016-09-21 09:13:37 97.5 [degF] Legac y [facility] Health weight E&M 2016-09-21 09:13:37 175 [lb_av] [facility] weight in kilograms 2016-09-21 09:13:37 79.55 kg L [facility] height in 2016-09-21 09:13:37 165.10 cm [facility] centimeters [facility] Health temperature site 2016-09-21 09:13:37 tympanic Lega [facility] Health blood pressure, 2016-07-21 12:17:59 87 mm[Hg] Legac y [facility] diastolic Health blood pressure, 2016-07-21 12:17:59 138 mm[Hg] Legac y [facility] systolic Health pulse rate 2016-07-21 12:17:59 96 /min [facility] weight E&M 2016-07-21 12:17:59 175.25 [lb_av] [facility] weight in kilograms 2016-07-21 12:17:59 79.66 kg L [facility] height in 2016-07-21 12:17:59 165.10 cm [facility] centimeters E&M Health blood pressure, 2016-06-09 11:43:33 90 mm[Hg] Legac y [facility] diastolic Health blood pressure, 2016-06-09 11:43:33 132 mm[Hg] Legac [facility] systolic Health pulse rate 2016-06-09 11:43:33 89 /min [facility] height in 2016-06-09 11:43:33 165.10 [facility] E[facility]M Health blood pressure, 2016-05-06 09:53:46 84 mm[Hg] Legac y [facility] diastolic Health blood pressure, 2016-05-06 09:53:46 132 mm[Hg] Legac y [facility] systolic Health pulse rate 2016-05-06 09:53:46 97 /min [facility] temperature E&M 2016-05-06 09:53:46 97.5 [degF] [facility] oxygen saturation, 2016-05-06 09:53:46 98 /min Tadeo shine [facility] oximetry Health weight E&M 2016-05-06 09:53:46 181.60 [lb_av] [facility] weight in kilograms 2016-05-06 09:53:46 82.55 kg L [facility] E& Health height in 2016-05-06 09:53:46 165.10 cm [facility] centimeters E&M Health temperature site 2016-05-06 09:53:46 tympanic Lega [facility] Procedures Procedure Date / Time Performing Clinician Source Performed SMALLPOX, MONKEYPOX 2022-10-10 17:45:22 Luis, [facility] VACCINE, 18+ YRS, 0.1 Medical Br anch ML,ID IMMTRAC2 CONSENT 2022-10-10 06:01:00 Doctor Unassigned, [facility] [place] [facility] IMMTRAC2 CONSENT 2022-09-12 06:01:00 Doctor Unassigned, [facility] [place] [facility] MENACTRA (MCV4-D) VACCINE 2022-04-25 20:08:00 Apolinar Smith [facility] Spherocyl, SV, plano to 2017-11-26 11:18:56 Verdugo, Ashlee freeman Community +/- 4.00d sphere, 0.12 to Health 2.00d cyl, per lens Frames, purchases 2017-11-26 11:18:[address] [facility] munity Health Est Patient Intermediate 2017-11-24 11:18:26 Nestor Guzman [facility] [id number] [place] [address] Primary Care Medical Case 2017-02-23 17:27:29 Kasia Betancur [facility] Primary Care Medical Case 2017-02-16 17:56:43 Kasia Betancur [facility] Primary Care Medical Case 2017-02-13 18:42:43 [facility] Health Dispensing Visit 2016-07-21 09:54:30 Shirley Encarnacion Com munity (UNLIVSTED Health OPHTHALMOLOGICAL SERVICE/PROCEDURE) Primary Care Medical Case 2016-07-05 19:13:18 [facility] Primary Care Medical Case 2016-07-04 17:24:31 [facility] Health Frames, purchases 2016-06-14 10:10:24 Shirley [facility]acion [facility] Health Spherocyl, SV, plano to 2016-06-14 10:09:52 Shirley Encarnacion [facility] +/- 4.00d sphere, 0.12 to Health 2.00d cyl, per lens Diagnostic evaluation with 2016-06-09 13:54:25 [facility] [address] Health Est Patient Intermediate 2016-06-09 09:55:53 Casa Riggs [facility] Opt - [id number] Health Est Patient Intermediate 2016-06-09 09:13:24 Nestor Guzman [facility] [address] [facility] Primary Care Medical Case 2016-05-19 16:23:45 Kasia Betancur [facility] Primary Care Medical Case 2016-05-18 18:11:23 Kasia Betancur [facility] Primary Care Medical Case 2016-05-17 17:22:38 Kasia Betancur [facility] Primary Care Medical Case 2016-05-13 16:51:20 Kasia Betancur [facility] Primary Care Medical Case 2016-05-12 17:31:08 Kasia Betancur [facility] Health Behavioral Health - 2016-05-12 14:26:13 Kasia Betancur ommunity Psychiatry [facility] Primary Care - Service 2016-05-06 13:01:29 Kasia Betancur y [facility] Primary Care - 2016-05-06 13:01:29 Kasia Betancur Commu nity Assesment-Comprehensive Health [facility] Primary Care Medical Case 2016-05-06 13:01:29 Kasia Betancur [facility] Behavioral Health - 2016-05-06 10:34:33 Cecy Tiwari ommunity Psychiatry Health Dispensing Visit 2012-10-25 13:23:10 Shirley Encarnacion Com munity (UNLIVSTED Health OPHTHALMOLOGICAL SERVICE/PROCEDURE) Frames, purchases 2012-10-16 16:24:53 Shirley Encarnacion Co mmunity Health Spherocyl, SV, plano to 2012-10-16 16:24:23 Shirley Encarnacion [facility] +/- 4.00d sphere, 0.12 to Health 2.00d cyl, per lens Est Patient Intermediate 2012-10-16 16:00:28 Casa Riggs [facility] [address] [facility] New Patient Intermediate 2012-10-16 15:26:36 Nestor Guzman [facility] [address] Health Encounters Start End Encounter Admission Attending Care Care Encounter Source Date/Time Date/Time Type Type Clinicians Facility Department ID 2022-08-04 Outpatient CHW W [id number] [facility] 14:33:[address] [place] [address] 2021-09-04 Emergency [facility] [id number] Univers 03:30:10 ity [facility] 2023-03-13 2023-03-13 [facility] [id number] Univers 13:00:00 13:00:00 APOLINAR morgan [facility] 2022-10-24 2022-10-24 Outpatient Santa, ALDEN W [id number] [facility] 14:09:00 14:09:00 [facility] 2022-10-24 2022-10-24 Refill Luis, UNIVERSIT [id number] Univers 00:00:00 00:00:00 [facility] 350.1.13.10 i ty [place] [id number] [facility] [address] [place] 2022-10-10 2022-10-10 Nurse Visit, [facility] Id Nurse UNIVERSIT 1.2. [id number] Univers 13:30:00 13:45:00 Visit Apolinar Smith [facility] 350.1.13.10 ity of [place] [id number] [place] [id number] [place] 2022-10-10 2022-10-10 [facility] [id number] Univers 13:30:00 13:30:00 APOLINAR keya [facility] 2022-10-10 2022-10-10 Pot Operator [facility] UNIVERSIT [id number] Univers 12:45:00 13:00:00 Visit Apolinar Smith [facility] 350.1.13.10 ity [place] [id number] [facility] [address] 2022-10-10 2022-10-10 Orders Doctor CECY [id number] Univers 00:00:00 00:00:00 Only Unassigned, LISA 350.1.13.10 ity of [place] [facility] 4.2.7.2.686 Zaki as [id number] [facility] [address] 2022-09-12 2022-09-12 Pot Operator [facility] UNIVERSIT [id number] Univers 15:00:00 15:15:00 Visit Apolinar Smith [facility] 350.1.13.10 it[place] [id number] [facility] [address] 2022-09-12 2022-09-12 Outpatient [facility] [id number] Univers 15:00:00 15:00:00 [facility] 2022-09-12 2022-09-12 Orders Doctor CECY [id number] Univers 00:00:00 00:00:00 Only Unassigned, LISA 350.1.13.10 ity of [place] [facility] 4.2.7.2.686 Zaki as [id number] [facility] [address] 2022-08-02 2022-08-02 [facility] 1.2.840.114 [id number] Univers 00:00:00 00:00:00 Chari Smith HEALTH 350.1.13.10 it[place] [id number] [facility] [address] 2022-07-25 2022-07-25 Outpatient R [facility] [id number] Univers 14:30:00 14:30:00 [facility] 2022-07-12 2022-07-12 Refjared Manzano [facility] 1.2.840.114 [id number] Univers 00:00:00 00:00:00 Chari Smith HEALTH 350.1.13.10 ity [place] [id number] [facility] [address] 2022-07-12 2022-07-12 [facility] [id number] Univers 00:00:00 00:00:00 [facility] HEALTH 350.1.13.10 i ty [place] [id number] [facility] [address] [place] 2022-06-27 2022-06-27 [facility] [id number] Univers 00:00:00 00:00:00 Apolinar Y HEALTH 350.1.13.10 i [place] [id number] [address] 2022-05-30 2022-05-30 [facility] Manzano, UNIVERSIT 1.2.840.114 [id number] Univers 00:00:00 00:00:00 Chari A Y HEALTH 350.1.13.10 [place] [id number] [address] 2022-05-11 2022-05-11 Outpatient [facility] [id number] Univers 00:00:00 00:00:00 [facility] 2022-05-02 2022-05-02 [facility], UNIVERSIT 1.2.840.114 [id number] Univers 00:00:00 00:00:00 Chari A [place] HEALTH 350.1.13.10 ity [place] [id number] [address] 2022-04-25 2022-04-25 Office [facility] [id number] Univers 14:00:00 14:30:00 Visit Apolinar Y HEALTH 350.1.13.10 i ty [place] [id number] [address] 2022-04-25 2022-04-25 Outpatient R [facility] [id number] Univers 14:00:00 14:00:00 [facility] 2022-04-05 2022-04-05 [facility], UNIVERSIT 1.2.840.114 [id number] Univers 00:00:00 00:00:00 Chari A [place] HEALTH 350.1.13.10 ity [place] [id number] [address] 2022-03-29 2022-03-29 Outpatient R [facility] [id number] Univers 14:00:00 14:00:00 APOLINAR morgan [facility] 2022-01-21 2022-01-21 [facility] [id number] Univers 13:00:00 13:00:00 BRAD morgan [facility] 2022-01-12 2022-01-12 Pot Operator [facility] UNIVERSIT 1.2.840.114 [id number] Univers 08:15:00 08:30:00 Visit Apolinar Smith [facility] 350.1.13.10 ity [place] [id number] [facility] [address] 2022-01-12 2022-01-12 Outpatient R [facility] [id number] Univers 08:15:00 08:15:00 APOLINAR [facility] 2022-01-07 2022-01-07 [facility] [id number] Univers 00:00:00 00:00:00 [facility] 350.1.13.10 i ty of [place] [id number] [place] [address] [place] 2022-01-07 2022-01-07 Refill Devang [facility] 1.2.840.114 [id number] Univers 00:00:00 00:00:00 Chari A HEALTH 350.1.13.10 ity of [place] [id number] [place] [address] [place] 2021-12-28 2021-12-28 Office [facility] [id number] Univers 16:30:00 17:00:00 Visit [facility] 350.1.13.10 i ty of [place] [id number] [place] [address] [place] 2021-12-28 2021-12-28 Outpatient R [facility] [id number] Univers 16:30:00 16:30:00 [facility] 2021-12-28 2021-12-28 Case Regis Amanda, UN[facility]ERS[facility] 1.2.840.114 [id number] Univers 00:00:00 00:00:00 Management Awa Smith [facility] 350.1.13.10 ity of [place] [id number] [facility] [address] 2021-12-21 2021-12-21 Outpatient R [facility] [id number] Univers 15:00:00 15:00:00 [facility] 2021-11-30 2021-11-30 Outpatient R [facility] [id number] Univers 11:30:00 11:30:00 [facility] 2021-11-30 2021-11-30 Outpatient R [facility] [id number] Univers 11:30:00 11:30:00 [facility] 2021-11-12 2021-11-12 Outpatient R [facility] [id number] Univers 10:00:00 10:00:00 [facility] 2021-11-10 2021-11-10 Refjared Smith [facility] [id number] Univers 00:00:00 00:00:00 [facility] 350.1.13.10 i ty of [place] [id number] [facility] [address] 2021-09-24 2021-09-24 Orders Doctor CECY 1.2.840.114 [id number] Univers 00:00:00 00:00:00 Only Unassigned, LISA 350.1.13.10 ity of [place] [facility] 4.2.7.2.686 Zaki as [id number] [facility] [address] 2021-09-14 2021-09-14 Imm/Inj Nurse, Pcp Immunization [facility] 1. 2.840.114 [id number] Univers 16:48:04 16:58:04 Visit Hiram Erickson PRIMARY 350.1.13. 10 ity of [place] [facility] [id number] Wi dical [address] 2021-09-14 2021-09-14 Outpatient R DRE [facility] [id number] Univers 16:50:00 16:50:00 HIRAM [facility] 2021-09-14 2021-09-14 [facility] [id number] Univers 00:00:00 00:00:00 [facility] 350.1.13.10 i ty of [place] [id number] [facility] [address] 2021-08-20 2021-08-20 Telephone CECY Hendrickson [id number] Univers 00:00:00 00:00:00 Cait GONZALEZ 350.1.13.10 it y of [facility] 4.2.7.2.686 Zaki as [id number] [facility] [address] [place] 2021-08-19 2021-08-19 Urgent [facility] 1.2.840.114 [id number] Univers 09:47:45 10:07:45 Care [facility] 350.1.13.10 it y [facility] 4.2.7.2.686 Zaki as Nixon?Blea [id number] [address] Medical Office Building 2021-08-19 2021-08-19 [facility] [id number] Univers 10:00:00 10:00:00 [facility] 2021-08-11 2021-08-11 Pot Operator [facility] UNIVERSIT 1.2.840.114 [id number] Univers 10:49:45 10:58:54 Visit Luis [facility] 350.1.13.10 ity of [place] [id number] [facility] [address] 2021-08-11 2021-08-11 Office [facility] 1.2.287.258 [id number] Univers 10:00:00 10:30:00 Visit [facility] 350.1.13.10 i ty [place] [id number] [facility] [address] 2021-08-11 2021-08-11 Outpatient R [facility] [id number] Univers 10:00:00 10:00:00 [facility] 2021-08-11 2021-08-11 [facility] [id number] Univers 10:00:00 10:00:00 APOLINAR keya [facility] 2021-08-07 2021-08-07 Letter CECY García 1.2.840.114 [id number] Univers 00:00:00 00:00:00 (Out) Patti GONZALEZ 350.1.13.10 it y of [facility] 4.2.7.2.686 Zaki as [id number] [facility] [address] 2021-08-06 2021-08-06 Laboratory Only, Ang Db Test [facility] 1.2.8 40.114 [id number] Univers 10:48:16 11:16:47 Only Unknown, Attending Health 350.1.13.10 ity [facility] 4.2.7.2.686 Zaki as Nixon?Blea [phone] [address] Medical Office Building 2021-08-06 2021-08-06 Outpatient R SREE [facility] [id number] Univers 11:00:00 11:00:00 ATTENDING [facility] 2021-07-27 2021-07-27 Outpatient R ZAHRAA [facility] [id number] Univers 09:00:00 09:00:00 SHAWNEE keya [facility] 2021-07-26 2021-07-26 [facility] [id number] Univers 13:00:00 13:00:00 APOLINAR [facility] 2021-07-26 2021-07-26 CAMACHO Zavaleta 1.2.613.690 [id number] Univers 00:00:00 00:00:00 Apolinar [facility] 350.1.13.10 i ty of [facility] [place].7.2.[place] [id number] [facility] [address] 2021-06-23 2021-06-23 Outpatient R ROSALVA [facility] [id number] Univers 13:15:00 13:15:00 SEE keya [facility] 2021-05-24 2021-05-24 [facility] [id number] Univers 10:30:00 10:30:00 APOLINAR morgan [facility] 2021-05-24 2021-05-24 [facility] 1.2.775.164 [id number] Univers 09:45:39 10:15:39 Visit Apolinar Smith [facility] 350.1.13.10 i ty of [place] [id number] [place] [address] [place] 2021-05-24 2021-05-24 Office [facility] 1.2.513.970 [id number] 09:45:39 10:15:39 Visit Apolinar Smith [facility] 350.1.13.10 CLINICS 4.2.7.2.686 [id number] [facility] 2021-05-05 2021-05-05 Refill [facility] 1.2.888.619 [id number] Univers 00:00:00 00:00:00 Aoplinar Smith [facility] 350.1.13.10 i ty of [place] [id number] [place] [address] [place] 2021-04-26 2021-04-26 Pot Operator [facility] UNIVERSIT 1.2.840.114 [id number] Univers 11:56:12 12:11:12 Visit Apolinar Smith [facility] 350.1.13.10 ity of [place] [id number] [facility] [address] 2021-04-26 2021-04-26 Office [facility] 1.2.736.451 [id number] Univers 11:02:28 11:55:04 Visit Apolinar Smith [facility] 350.1.13.10 i ty of [place] [id number] [place] [address] [place] 2021-04-26 2021-04-26 Outpatient R [facility] [id number] Univers 11:00:00 11:55:04 APOLINAR keya [facility] 2021-04-26 2021-04-26 Outpatient R [facility] [id number] Univers 11:00:00 11:00:00 APOLINAR [facility] 2021-02-12 2021-02-12 [facility] 1.2.799.967 [id number] Univers 00:00:00 00:00:00 [facility] HEALTH 350.1.13.10 i ty of [place] [id number] [place] [address] 2021-02-11 2021-02-11 Telephone [facility] 1.2.840.114 [id number] Univers 00:00:00 00:00:00 [facility] HEALTH 350.1.13.10 i ty [place] [id number] [address] 2021-02-10 2021-02-10 Outpatient DRE [facility] [id number] Univers 15:10:00 15:10:00 HIRAM morgan [facility] 2021-02-10 2021-02-10 [facility] 1.2.840.114 [id number] Univers 00:00:00 00:00:00 [facility] 350.1.13.10 i ty [place] [id number] [address] 2021-02-08 2021-02-08 [facility] 1.2.046.005 [id number] Univers 00:00:00 00:00:00 [facility]ALTH 350.1.13.10 i ty of [place] [id number] [address] 2021-02-07 2021-02-07 [facility] 1.2.146.625 [id number] Univers 00:00:00 00:00:00 [facility] HEALTH 350.1.13.10 i ty [place] [id number] [address] 2021-02-03 2021-02-03 Telephone [facility] 1.2.840.114 [id number] Univers 00:00:00 00:00:00 [facility] HEALTH 350.1.13.10 i ty [place] [id number] [address] 2021-01-21 2021-01-21 Patient Dre [facility] 1.2.840.114 [id number] Univers 00:00:00 00:00:00 Outreach Hiram PRIMARY 350.1.13.10 i ty of [facility] [place].2.7.2.[place] [id number] Wi dical [address] 2020-11-30 2020-11-30 Outpatient R DOUGLAS [facility] [id number] Univers 18:20:00 18:20:00 FIONA [facility] 2020-11-30 2020-11-30 Laboratory Lab, [facility] Fam Pob I [facility] 1.2. 840.114 [id number] Univers 17:53:14 18:13:14 Only [facility] 350.1.13.10 ity of [place] 4.2.7.2.686 Zaki as Xuan [phone] Wi dical nal [address] Office Building One 2020-10-26 2020-10-26 Pot Operator [facility] UNIVERSIT 1.2.840.114 [id number] Univers 11:41:13 11:56:13 Visit Luis [facility] 350.1.13.10 ity of CL[place] [id number] [facility] [address] 2020-10-26 2020-10-26 Office [facility] 1.2.071.386 [id number] Univers 10:46:04 11:16:04 Visit [facility] 350.1.13.10 i ty of [place] [id number] [place] [address] [place] 2020-10-26 2020-10-26 Outpatient R LUIS [facility] [id number] Univers 11:00:00 11:00:00 APOLINAR [facility] 2020-09-12 2020-09-12 Telephone Mitch SAM 1.2.840.114 [id number] Univers 00:00:00 00:00:00 Anastasia colón 350.1.13.10 ity of [facility] 4.2.7.2.686 Zaki as [id number] [facility] [address] 2020-09-10 2020-09-10 Emergency Pierce, TRAUMA 1.2.102.638 [id number] Univers 15:49:00 20:08:00 [facility] 350.1.13.10 it[place] [id number] [facility] [address] 2020-03-26 2020-03-26 Telephone [facility] 1.2.840.114 [id number] Univers 00:00:00 00:00:00 [facility] 350.1.13.10 i ty [place] [id number] [address] 2020-02-26 2020-02-26 Refill [facility] 1.2.111.198 [id number] Univers 00:00:00 00:00:00 [facility] 350.1.13.10 i ty [place] [id number] [address] 2020-02-24 2020-02-24 Outpatient R SELF, [facility] [id number] Univers 10:15:00 10:15:00 ELISA ity o f [facility] 2020-02-14 2020-02-14 Telephone [facility] 1.2.840.114 [id number] Univers 00:00:00 00:00:00 [facility] 350.1.13.10 i ty of [place] [id number] [address] 2020-02-04 2020-02-04 Outpatient R [facility] [id number] Univers 08:30:00 08:30:00 ity of [facility] 2020-02-04 2020-02-04 Telemedici Sheryl Aquino UNIVERSIT 1.2.840.114 [id number] Univers 07:20:02 07:50:02 ne Visit AnayeliJacky [facility] 350.1.13.1 0 ity of CL[place] [id number] [address] 2020-01-27 2020-01-27 Refill [place], UNIVERSIT 1.2.362.218 [id number] Univers 00:00:00 00:00:00 [facility] HEALTH 350.1.13.10 i ty of [place] [id number] [address] 2019-12-26 2019-12-26 Emergency X BELLE, [facility] ERT [id number] Univers 14:27:10 19:05:00 MARISOL ity [facility] 2019-12-26 2019-12-26 Emergency Odonnell, TRAUMA 1.2.840.114 [id number] Univers 14:27:10 19:05:00 [facility] 350.1.13.10 it y of [place].2.[place] [id number] [facility] [address] 2019-12-26 2019-12-26 Patient Doctor [facility] 1.2.840.114 [id number] Univers 00:00:00 00:00:00 Secure Msg Unassigned, PRIMARY 350.1.13.10 ity of [place].2.7.2.[place]AV[place] [phone] Wi dical [address] 2019-12-25 2019-12-25 Telephone East, [facility] 1.2.840.114 [id number] Univers 00:00:00 00:00:00 [facility] HEALTH 350.1.13.10 i ty [place] [id number] [address] 2019-12-17 2019-12-17 Outpatient R [facility] [id number] Univers 10:30:00 11:59:42 APOLINAR ity [facility] 2019-12-17 2019-12-17 Office East, [facility] 1.2.659.254 [id number] Univers 10:08:35 11:59:42 Visit [facility] 350.1.13.10 i ty of [place] [id number] [address] 2019-12-14 2019-12-14 Patient Doctor CECY 1.2.840.114 [id number] Univers 00:00:00 00:00:00 Secure Msg Unassigned, LISA 350.1.13.10 ity of [place] [facility] 4.2.7.2.686 Zaki as [id number] [facility] [address] 2019-12-07 2019-12-07 Refill [facility] 1.2.246.556 [id number] Univers 00:00:00 00:00:00 [facility] 350.1.13.10 i ty of [place] [id number] [facility] [address] 2019-12-06 2019-12-06 Telephone [facility] 1.2.840.114 [id number] Univers 00:00:00 00:00:00 [facility] 350.1.13.10 i ty of [place] [id number] [place] [address] [place] 2019-12-02 2019-12-02 Pot Operator [facility] UNIVERSIT 1.2.840.114 [id number] Univers 12:24:39 13:04:27 Visit Luis [facility] 350.1.13.10 ity of CL[place] [id number] [facility] [address] 2019-12-02 2019-12-02 Office [facility] 1.2.994.933 [id number] Univers 09:31:38 12:19:07 Visit [facility] 350.1.13.10 i ty of [place] [id number] [facility] [address] 2019-12-02 2019-12-02 Orders Doctor CECY 1.2.840.114 [id number] Univers 00:00:00 00:00:00 Only Unassigned, LISA 350.1.13.10 ity of [place] [facility] 4.2.7.2.686 Zaki as [id number] [facility] [address] 2019-12-02 2019-12-02 [facility] 1.2.088.485 [id number] Univers 00:00:00 00:00:00 Management Sofya [facility] HEALTH 350.1.13.10 ity of [place] [id number] Medi richard [address] 2019-11-20 2019-11-20 Office Karie Cecy [facility] Adult En counter/ Legacy 00:00:00 00:00:00 Visit Uzair Sidhu Medic ine [id number] [facility] 452402 ty Health 2019-11-15 2019-11-15 Office Thomson, LC LM Adult Encou nter/ Legacy 00:00:00 00:00:00 Visit Araceli Medicine [id number] Co mmuni 262191 ty Health 2019-11-02 2019-11-02 Office Extra [facility] Legacy Encounter/ Legacy 00:00:00 00:00:00 Visit [facility] [id number] [facility] 231133 ty Services Health 2019-11-02 2019-11-02 Office Extra LC Legacy Encounter/ Legacy 00:00:00 00:00:00 Visit [facility] [id number] [facility] 327421 Services Health 2019-11-02 2019-11-[address] [facility] Adult Encount er/ Legacy 00:00:00 00:00:00 Visit [facility] [id number] Co mmuni 672977 [facility] 2019-11-02 2019-11-[address] [facility] Adult En counter/ Legacy 00:00:00 00:00:00 Visit Elva Nur Medicine [id number] [facility] 048233 ty Health 2019-10-17 2019-10-17 Office Cecy Tiwari Legacy Enco unter/ Legacy 00:00:00 00:00:00 Visit Naomie Nick [id number] [facility] 791692 Pharmacy Health 2019-10-14 2019-10-[address] [facility] Adult En counter/ Legacy 00:00:00 00:00:00 Visit Chaney Nique Medi [facility] [id number] [facility] 611075 ty Health 2019-09-30 2019-09-30 Office Berto [facility] Adult Encou nter/ Legacy 00:00:00 00:00:00 Visit Araceli Medicine [id number] Co mmuni 349991 [facility] 2019-09-17 2019-09-17 Office Cecy Tiwari [facility] Adult En counter/ Legacy 00:00:00 00:00:00 Visit Jaci Gallardo [facility] [id number] [facility] 861507 [facility] 2019-08-23 2019-08-23 Office Cecy Tiwari [facility] Legacy Enco unter/ Legacy 00:00:00 00:00:00 Visit Zuly Cristobal,Marni ommunity [id number] [facility] 964670 [facility] 2019-07-17 2019-07-17 Product Manager Financial Services [facility] YES Prep Encounter / Legacy 00:00:00 00:00:00 Visit [facility] [id number] [facility] [place] 592487 [facility] 2019-05-21 2019-05-21 Office Cecy Tiwari [facility] Adult En counter/ Legacy 00:00:00 00:00:00 Visit Naomie Nick [facility] [id number] [facility] 619975 [facility] 2019-05-17 2019-05-17 Office Berto [facility] Adult Encou nter/ Legacy 00:00:00 00:00:00 Visit Araceli [facility] [id number] Co mmuni 976706 [facility] 2019-04-30 2019-04-30 Office Karie [facility] Adult Encount er/ Legacy 00:00:00 00:00:00 Visit Cecy [facility] [id number] Co mmuni 921988 [facility] 2019-04-29 2019-04-29 Office Caterina Palafox [facility] Adult Encounter/ Legacy 00:00:00 00:00:00 Visit Derick Wilder [id number] [facility] 469407 [facility] 2019-04-26 2019-04-26 Office Karie [facility] Adult Encount er/ Legacy 00:00:00 00:00:00 Visit Cecy [facility] [id number] Co mmuni 273684 [facility] 2019-04-26 2019-04-26 Office Karie [facility] Adult Encount er/ Legacy 00:00:00 00:00:00 Visit Cecy [facility] [id number] Co mmuni 288932 ty Health 2019-04-26 2019-04-26 Office Karie [facility] Adult Encount er/ Legacy 00:00:00 00:00:00 Visit Cecy [facility] [id number] Co mmuni 856032 ty Health 2019-04-26 2019-04-26 Office Cecy iTwari [facility] Adult En counter/ Legacy 00:00:00 00:00:00 Visit Derick Wilder [id number] Communi 954101 ty Health 2019-04-25 2019-04-25 Office Caterina Palafox [facility] Maptadeo Ridg e Encounter/ Legacy 00:00:00 00:00:00 Visit Agustina Simpson [id number] [facility] 076278 ty Health 2019-04-25 2019-04-25 Office Karie [facility] Adult Encount er/ Legacy 00:00:00 00:00:00 Visit Cecy [facility] [id number] Co annmarieuni 694589 Health 2019-04-25 2019-04-25 Office Karie [facility] Adult Encount er/ Legacy 00:00:00 00:00:00 Visit Cecy [facility] [id number] Co mmuni 803658 Health 2019-03-13 2019-03-13 Office Isabel Wilder [facility] Poe Jeana nto Encounter/ Legacy 00:00:00 00:00:00 Visit Clarissa Dutton Family [id number] [facility] Practice 971092 Health 2019-02-27 2019-02-27 Office Zuly [facility] Adult Encount er/ Legacy 00:00:00 [facility]:00[id number] Communi e,, Marni 207770 Health 2019-02-08 2019-02-08 Office Mariano-Evert [facility] Public Enc ounter/ Legacy 00:00:00 00:00:00 Visit Kelli short [facility] [id number] Co mmviveki Services 300141 Health 2019-01-15 2019-01-15 Office Cesar [facility] Encount er/ Legacy 00:00:00 00:00:00 Visit Dc Saldana [id number] [facility] 100619 Health 2018-12-24 2018-12-24 Office Dc Guerrero [facility] Branard Encounter/ Legacy 00:00:00 00:00:00 Visit [facility] 083740 2264 [facility] 738567 [facility] Health 2018-12-21 2018-12-21 Office Vivienne [facility] Adult Encounte r/ Legacy 00:00:00 00:00:00 Visit Caterina [facility] [id number] Co mmuni 436617 [facility] 2018-12-21 2018-12-21 Office Karie [facility] Adult Encount er/ Legacy 00:00:00 00:00:00 Visit [facility] [id number] Co mmuni 946619 [facility] 2018-12-21 2018-12-21 Office Cecy Tiwari [facility] Adult En counter/ Legacy 00:00:00 00:00:00 Visit Caterina Palafox [facility] 52660 73513 [facility] 615300 [facility] 2018-10-25 2018-10-25 Office Karie [facility] Adult Encount er/ Legacy 00:00:00 00:00:00 Visit [facility] [id number] Co mmuni 462304 [facility] 2018-10-25 2018-10-25 Office Karie [facility] Adult Encount er/ Legacy 00:00:00 00:00:00 Visit [facility] [id number] Co mmuni 530678 [facility] 2018-10-25 2018-10-25 Office Dc Guerrero [facility] Kenzie Encounter/ Legacy 00:00:00 00:00:00 Visit [facility] 451914 3513 [facility] 569842 [facility] 2018-10-25 2018-10-25 Office Cecy Tiwari [facility] Adult En counter/ Legacy 00:00:00 00:00:00 Visit [place] [id number] 564 [facility] 506904 Health 2018-10-08 2018-10-08 Office Cecy Tiwari [facility] Adult En counter/ Legacy 00:00:00 00:00:00 Visit Zuly Cristobal,Marni edicine [id number] [facility] 393719 [facility] 2018-10-05 2018-10-05 Office Ebonie [facility] Legacy Encounter / Legacy 00:00:00 00:00:00 Visit [facility] [id number] [facility] 506704 [facility] Health 2018-05-22 2018-05-[address] [facility] Adult Encount er/ Legacy 00:00:00 00:00:00 Visit [facility] [id number] Co mmuni 318724 [facility] 2018-05-21 2018-05-21 Office Nemraymundok [facility] Adult Encount er/ Legacy 00:00:00 00:00:00 Visit [facility] [id number] Co mmuni 525156 [facility] 2018-05-21 2018-05-21 Office Karie [facility] Adult Encount er/ Legacy 00:00:00 00:00:00 Visit [facility] [id number] Co mmuni 702253 [facility] 2018-05-21 2018-05-21 Office Karie [facility] Adult Encount er/ Legacy 00:00:00 00:00:00 Visit [facility] [id number] Co mmuni 313113 [facility] 2018-04-03 2018-04-03 Office Cecy Tiwari [facility] Adult En counter/ Legacy 00:00:00 00:00:00 Visit Marni Sr [id number] Commun 787427 [facility] 2018-04-01 2018-04-[address] [facility] Adult En counter/ Legacy 00:00:00 00:00:00 Visit Marni Sr Medicine [id number] Communi 513699 [facility] 2018-03-07 2018-03-[address] [facility] Adult En counter/ Legacy 00:00:00 00:00:00 Visit Marni Sr Medicine [id number] Communi 757328 [facility] 2018-03-06 2018-03-[address] [facility] Adult En counter/ Legacy 00:00:00 00:00:00 Visit Marni Sr Medicine [id number] Communi 424080 [facility] 2018-01-03 2018-01-03 Office LATA Brown Legacy Encounter/ Legacy 00:00:00 00:00:00 Visit [facility] [id number] C [facility] 239985 [facility] 2017-12-21 2017-12-21 Office Meño [facility] Adult Encounte r/ Legacy 00:00:00 00:00:00 Visit [facility] [id number] C ommuni 698932 [facility] 2017-12-21 2017-12-21 Office Karie [facility] Adult Encount er/ Legacy 00:00:00 00:00:00 Visit [facility] [id number] Co mmuni 647327 [facility] 2017-12-21 2017-12-21 Office Karie [facility] Adult Encount er/ Legacy 00:00:00 00:00:00 Visit [facility] [id number] Co mmuni 294596 [facility] 2017-12-21 2017-12-21 Office Cecy Tiwari [facility] Adult En counter/ Legacy 00:00:00 00:00:00 Visit Caterina Palafox [facility] [id number] 10224 Communi 256927 [facility] 2017-12-21 2017-12-21 Office Lucina [facility] Vision Encoun ter/ Legacy 00:00:00 00:00:00 Visit Ashlee [id number] Com alonzo 059391 [facility] 2017-11-24 2017-11-24 Office Nestor Guzman [facility] Vision Enc ounter/ Legacy 00:00:00 00:00:00 Visit [id number] Com alonzo 637996 [facility] 2017-11-24 2017-11-24 Office Nestor Guzman [facility] Vision Enc ounter/ Legacy 00:00:00 00:00:00 Visit [id number] Com alonzo 247543 [facility] 2017-11-24 2017-11-24 Office Nestor Guzman [facility] Vision Enc ounter/ Legacy 00:00:00 00:00:00 Visit [id number] Com alonzo 082019 [facility] 2017-11-24 2017-11-24 Office Nestor Guzman [facility] Vision Enc ounter/ Legacy 00:00:00 00:00:00 Visit Ashlee Verdugo [id number] Communi 233452 [facility] 2017-11-24 2017-11-24 Office Karie [facility] Adult Encount er/ Legacy 00:00:00 00:00:00 Visit Cecy [facility] [id number] Co mmuni 609868 Health 2017-11-24 2017-11-24 Office Verdugo [facility] Vision Encoun ter/ Legacy 00:00:00 00:00:00 Visit Ashlee [id number] [facility] alonzo 753641 Health 2017-11-22 2017-11-22 Office Cecy Tiwari [facility] Adult En counter/ Legacy 00:00:00 00:00:00 Visit Marni Sr Medicine [id number] Communi 703833 Health 2017-11-22 2017-11-22 Office Silvia Hassan [facility] Adult En counter/ Legacy 00:00:00 00:00:00 Visit Marni Sr Medicine [id number] Communi 958625 [facility] 2017-11-21 2017-11-21 Office Cecy Tiwari [facility] Adult En counter/ Legacy 00:00:00 00:00:00 Visit Marni Sr Medicine [id number] Communi [id number] [facility] 2017-11-16 2017-11-16 Office Silvia Hassan [facility] Adult En counter/ Legacy 00:00:00 00:00:00 Visit Marni Sr Medicine [id number] Communi 534505 [facility] 2017-11-15 2017-11-15 Office Kailash [facility] Jackson Encount er/ Legacy 00:00:00 00:00:00 Visit Leticia Family [id number] Com [facility] Practice [id number] Health 2017-10-05 2017-10-05 Office Oscar [facility] Legacy Encounte r/ Legacy 00:00:00 00:00:00 Visit Valerie Fernandes [id number] Communi Piyush 910185 ty Pediatrics Healt h 2017-08-01 2017-08-01 Office Cecy Tiwari [facility] Adult En counter/ Legacy 00:00:00 00:00:00 Visit Marni Sr Medicine [id number] Communi [id number] Health 2017-07-20 2017-07-20 Office Karie [facility] Adult Encount er/ Legacy 00:00:00 00:00:00 Visit [facility] [id number] Co mmuni 428063 [facility] 2017-07-20 2017-07-20 Office Cecy Tiwari [facility] Adult En counter/ Legacy 00:00:00 00:00:00 Visit Caterina Palafox Medicine [id number] Eduardoi 651028 [facility] 2017-06-16 2017-06-16 Office Karie [facility] Adult Encount er/ Legacy 00:00:00 00:00:00 Visit [facility] [id number] Co mmuni 425797 [facility] 2017-06-16 2017-06-16 Office Meño [facility] Adult Encounte r/ Legacy 00:00:00 00:00:00 Visit [facility] [id number] Kristi sinha 915776 [facility] 2017-05-15 2017-05-15 Office Karie [facility] Adult Encount er/ Legacy 00:00:00 00:00:00 Visit [facility] [id number] Co mmuni 788325 [facility] 2017-04-17 2017-04-17 Office Yamilet [facility] Social Encoun ter/ Legacy 00:00:00 00:00:00 Visit Camila Services [id number] Communi 731578 [facility] 2017-04-17 2017-04-17 [facility]ter/ Legacy 00:00:00 00:00:00 Visit Samantha Services [id number] Co mmuni 709963 [facility] 2017-04-17 2017-04-17 Office Karie [facility] Adult Encount er/ Legacy 00:00:00 00:00:00 Visit [facility] [id number] Co mmuni 535735 [facility] 2017-04-17 2017-04-17 Office Karie [facility] Adult Encount er/ Legacy 00:00:00 00:00:00 Visit [facility] [id number] Co mmuni 289080 [facility] 2017-04-17 2017-04-17 Office Cecy Tiwari [facility] Adult En counter/ Legacy 00:00:00 00:00:00 Visit Caterina Palafox Medicine [id number] [facility] 973528 ty Health 2017-02-23 2017-02-23 Office Meserve, [facility] Social Encoun ter/ Legacy 00:00:00 00:00:00 Visit Kasia Services [id number] Co mmuni 634300 ty Health 2017-02-20 2017-02-20 Office Meserve, [facility] Social Encoun ter/ Legacy 00:00:00 00:00:00 Visit Kasia Services [id number] Co mmuni 052867 ty Health 2017-02-16 2017-02-16 Office Meserve, [facility] Social Encoun ter/ Legacy 00:00:00 00:00:00 Visit Kasia Services [id number] Co mmuni 671066 ty Health 2017-02-16 2017-02-16 Office Meserve, [facility] Social Encoun ter/ Legacy 00:00:00 00:00:00 Visit Kasia Services [id number] Co mmuni 393016 ty Health 2017-02-13 2017-02-13 Office Meserve, [facility] Social Encoun ter/ Legacy 00:00:00 00:00:00 Visit Kasia Services [id number] Co mmuni 819518 ty Health 2017-01-30 2017-01-30 Office Masters, [facility] LM Encounter / Legacy 00:00:00 00:00:00 Visit [facility] [id number] [facility] Health 643220 ty Health 2017-01-30 2017-01-30 Office Masters, [facility] Encounter / Legacy 00:00:00 00:00:00 Visit [facility] [id number] [facility] 414569 ty Health 2017-01-29 2017-01-29 Office Masters, [facility] Encounter / Legacy 00:00:00 00:00:00 Visit [facility] [id number] [facility] 022410 ty Health 2017-01-29 2017-01-29 Office Masters, [facility] Encounter / Legacy 00:00:00 00:00:00 Visit [facility] [id number] [facility] Health 244037 ty Health 2017-01-24 2017-01-24 Office Islas, [facility] LM Adult Encount er/ Legacy 00:00:00 00:00:00 Visit Az Medicine [id number] Kristi ommuni 771690 Health 2017-01-18 2017-01-18 [facility] Legacy 00:00:00 00:00:00 Visit Cecy Medicine [id number] Co mmuni [id number] Health 2017-01-18 2017-01-18 Office Karie [facility] Adult Encount er/ Legacy 00:00:00 00:00:00 Visit Cecy Medicine [id number] Co mmuni 543775 Health 2017-01-17 2017-01-17 [facility]/ Legacy 00:00:00 00:00:00 Visit Saloni Medicine [id number] Co mmuni 441420 Health 2016-12-28 2016-12-28 Office [facility] Encounter / Legacy 00:00:00 00:00:00 Visit Robby Behavioral [id number] [facility] 829086 [facility] 2016-12-28 2016-12-28 Office [facility] Encounter / Legacy 00:00:00 00:00:00 Visit Robby Behavioral [id number] [facility] 729263 [facility] 2016-11-28 2016-11-28 [facility] En[facility]te r/ Legacy 00:00:00 00:00:00 Visit Sneha Agustin [id number] [facility] 702819 [facility] 2016-10-20 2016-10-20 Office Dc Guerrero [facility] Branrobb Encounter/ Legacy 00:00:00 00:00:00 Visit Kiel Billy [place] [id number] [facility] 925079 Behavioral [facility] Health 2016-10-20 2016-10-20 Office Dc Guerrero [facility] Kenzie Encounter/ Legacy 00:00:00 00:00:00 Visit Kiel Billy [place] [id number] [facility] 630559 Behavioral [facility] Health 2016-10-17 2016-10-17 Office Cesar [facility] Encount er/ Legacy 00:00:00 00:00:00 Visit Dc Saldana [id number] [facility] 644237 Health 2016-10-17 2016-10-17 Office Cesar [facility] Encount er/ Legacy 00:00:00 00:00:00 Visit Dc Behavioral [id number] [facility] Health 841006 ty Health 2016-10-17 2016-10-17 Office Cesar [facility] Encount er/ Legacy 00:00:00 00:00:00 Visit Dc Behavioral [id number] [facility] 675664 Health 2016-10-16 2016-10-16 Office Cesar [facility] Encount er/ Legacy 00:00:00 00:00:00 Visit Dc Behavioral [id number] [facility] Health 114837 ty Health 2016-09-21 2016-09-21 Office Karie [facility] Adult Encount er/ Legacy 00:00:00 00:00:00 Visit Cecy Medicine [id number] Co mmuni 559028 ty Health 2016-09-21 2016-09-21 Office Karie [facility] Adult Encount er/ Legacy 00:00:00 00:00:00 Visit Cecy Medicine [id number] Co mmuni 618612 ty Health 2016-09-21 2016-09-21 Office Karie [facility] Adult Encount er/ Legacy 00:00:00 00:00:00 Visit Cecy Medicine [id number] Co mmuni 388760 ty Health 2016-09-21 2016-09-21 Office Vivienne [facility] Adult Encounte r/ Legacy 00:00:00 00:00:00 Visit Caterina Medicine [id number] Co mmuni 845331 ty Health 2016-09-21 2016-09-21 Office Karie [facility] Adult Encount er/ Legacy 00:00:00 00:00:00 Visit Cecy Medicine [id number] Co mmuni 012321 ty Health 2016-09-21 2016-09-21 Office Cecy Tiwari [facility] Adult En counter/ Legacy 00:00:00 00:00:00 Visit Caterina Palafox [id number] [facility] 759878 ty Health 2016-09-20 2016-09-20 Office Cesar [facility] Encount er/ Legacy 00:00:00 00:00:00 Visit Dc Behavioral [id number] [facility] 046138 Health 2016-09-19 2016-09-19 Office Cesar [facility] Encount er/ Legacy 00:00:00 00:00:00 Visit Dc Behavioral [id number] [facility] 891094 Health 2016-09-14 2016-09-14 Office Sy [facility] Adult Encounte r/ Legacy 00:00:00 00:00:00 Visit Sneha Agustin [id number] [facility] 297996 Health 2016-09-02 2016-09-02 Office Cesar [facility] Encount er/ Legacy 00:00:00 00:00:00 Visit Dc Behavioral [id number] [facility] 443656 Health 2016-09-02 2016-09-02 Office Perjose c [facility] Encount er/ Legacy 00:00:00 00:00:00 Visit Dc Behavioral [id number] [facility] 427419 Health 2016-07-21 2016-07-21 Office Oneil [facility] Vision Encount er/ Legacy 00:00:00 00:00:00 Visit Casa Zhang [id number] Co mmuni 756418 Health 2016-07-21 2016-07-21 Office Karie [facility] Adult Encount er/ Legacy 00:00:00 00:00:00 Visit Cecy Agustin [id number] Co mmuni 778690 Health 2016-07-21 2016-07-21 Office Dc Guerrero [facility] Branard Encounter/ Legacy 00:00:00 00:00:00 Visit Wenceslao [facility] [id number] [facility] 837086 Behavioral Healt h Health 2016-07-21 2016-07-21 Office Shashank [facility] Vision Encoun ter/ Legacy 00:00:00 00:00:00 Visit Shirley [id number] [facility] alonzo 435195 Health 2016-07-12 2016-07-12 Office Cecy Tiwari [facility] Legacy Enco unter/ Legacy 00:00:00 00:00:00 Visit Silvia Hassan [facility] [id number] [facility] 732965 [facility] Health Contact Center 2016-07-12 2016-07-12 Office Cesar [facility] Encount er/ Legacy 00:00:00 00:00:00 Visit Dc Behavioral [id number] [facility] 825450 Health 2016-07-12 2016-07-12 Office Cesar [facility] Encount er/ Legacy 00:00:00 00:00:00 Visit Dc Behavioral [id number] [facility] 557348 Health 2016-07-05 2016-07-05 Office Pipe [facility] Social Encoun ter/ Legacy 00:00:00 00:00:00 Visit Kasia Services [id number] Co mmuni 443524 Health 2016-07-04 2016-07-04 Office Pipe [facility] Social Encoun ter/ Legacy 00:00:00 00:00:00 Visit Kasia Services [id number] Co mmuni 155121 [facility] 2016-07-01 2016-07-01 Office Caterina Palafox [facility] Legacy En counter/ Legacy 00:00:00 00:00:00 Visit Julio Govea [facility] [id number] [facility] 969402 [facility] Health Contact Center 2016-06-09 2016-06-09 Office Shashank [facility] Vision Encoun ter/ Legacy 00:00:00 00:00:00 Visit Shirley [id number] [facility] alonzo 577465 Health 2016-06-09 2016-06-09 Office Dc Guerrero [facility] Branard Encounter/ Legacy 00:00:00 00:00:00 Visit Andrés Carlos Alberto [place] [id number] [facility] 247058 [facility] Health 2016-06-09 2016-06-09 Office Oneil [facility] Vision Encount er/ Legacy 00:00:00 00:00:00 Visit Casa Zhang [id number] Co mmuni 719458 Health 2016-06-09 2016-06-09 Office Oneil [facility] Vision Encount er/ Legacy 00:00:00 00:00:00 Visit Casa Zhang [id number] Co mmuni 333459 Health 2016-06-09 2016-06-09 Office Casa Riggs [facility] Visio n Encounter/ Legacy 00:00:00 00:00:00 Visit Nitza Alex [id number] [facility] 751042 [facility] 2016-06-09 2016-06-09 Office Nestor Guzman [facility] Vision Enc ounter/ Legacy 00:00:00 00:00:00 Visit [id number] Com alonzo [id number] Health 2016-06-09 2016-06-09 Office Nestor Guzman [facility] Vision Enc ounter/ Legacy 00:00:00 00:00:00 Visit [id number] Com alonzo 170582 [facility] 2016-06-09 2016-06-09 Office Nestor Guzman [facility] Vision Enc ounter/ Legacy 00:00:00 00:00:00 Visit [id number] Com alonzo 242529 [facility] 2016-06-09 2016-06-09 Office Nestor Guzman [facility] Vision Enc ounter/ Legacy 00:00:00 00:00:00 Visit Shirley Encarnacion [id number] [facility] 528875 [facility] 2016-06-07 2016-06-07 Office Queenie [facility] Adult Encounte r/ Legacy 00:00:00 00:00:00 Visit [facility] [id number] [facility] 800496 [facility] 2016-05-19 2016-05-19 [facility] Encoun ter/ Legacy 00:00:00 00:00:00 Visit Kasia Services [id number] Co mmuni 479242 [facility] 2016-05-18 2016-05-18 [facility] Social Encoun ter/ Legacy 00:00:00 00:00:00 Visit Kasia Services [id number] Co mmuni 425373 [facility] 2016-05-17 2016-05-17 [facility] Encoun ter/ Legacy 00:00:00 00:00:00 Visit Kasia Services [id number] Co mmuni 304637 [facility] 2016-05-13 2016-05-13 Office Karie [facility] Adult Encount er/ Legacy 00:00:00 00:00:00 Visit [facility] [id number] Co mmuni 300505 ty Health 2016-05-13 2016-05-13 Office Pipe, [facility] Social Encoun ter/ Legacy 00:00:00 00:00:00 Visit Aksia Services [id number] Co mmuni 311815 ty Health 2016-05-13 2016-05-13 [facility]/ Legacy 00:00:00 00:00:00 Visit Cecy Medicine [id number] Co mmuni 507907 ty Health 2016-05-12 2016-05-12 Office [facility], [facility] Social Encoun ter/ Legacy 00:00:00 00:00:00 Visit Kasia Services [id number] Co mmuni 306452 ty Health 2016-05-06 2016-05-06 [facility] Encount er/ Legacy 00:00:00 00:00:00 Visit Cecy Medicine [id number] Co mmuni 632173 ty Health 2016-05-06 2016-05-06 [facility] Encount er/ Legacy 00:00:00 00:00:00 Visit Cecy Medicine [id number] Co mmuni 238043 ty Health 2016-05-06 2016-05-06 [facility] Encoun ter/ Legacy 00:00:00 00:00:00 Visit Kasia Services [id number] Co mmuni 870278 ty Health 2016-05-06 2016-05-06 [facility] Social Encoun ter/ Legacy 00:00:00 00:00:00 Visit Kasia Services [id number] Co mmuni 538017 ty Health 2016-05-06 2016-05-06 Office Kasia Betancur [facility] Social E ncounter/ Legacy 00:00:00 00:00:00 Visit Amanda Fuentes [id number] Yolie Swartz 305093 ty Health 2016-05-06 2016-05-06 [facility]/ Legacy 00:00:00 00:00:00 Visit Cecy Medicine [id number] Co mmuni 208280 ty Health 2016-05-06 2016-05-06 Office Karie [facility] Adult Encount er/ Legacy 00:00:00 00:00:00 Visit Cecy Medicine [id number] Co mmuni 429545 Health 2016-05-06 2016-05-06 Office Cecy Tiwari [facility] Adult En counter/ Legacy 00:00:00 00:00:00 Visit Amanda Fuentes Medicine [id number] [facility] Palafox Caterina 443307 [facility] 2016-05-06 2016-05-06 [facility] Encounte r/ Legacy 00:00:00 00:00:00 Visit [facility] Medicine [id number] Co mmuni 934061 Health 2016-05-06 2016-05-06 [facility] Encounte r/ Legacy 00:00:00 00:00:00 Visit [facility] Medicine [id number] Co mmuni 323923 Health 2016-05-06 2016-05-06 Office Siomara [facility] Adult Encounte r/ Legacy 00:00:00 00:00:00 [facility] [id number] Co mmuni 146140 Health 2016-05-05 2016-05-05 Office Ivory Fontanez [facility] Encoun ter/ Legacy 00:00:00 00:00:00 Visit Behavioral [id number] [facility] 658318 [facility] 2016-04-28 2016-04-28 Office Reg [facility] Adult Encount er/ Legacy 00:00:00 00:00:00 Visit Kaleigh Medicine [id number] Co mmuni 580797 Health 2016-04-15 2016-04-15 Office Karie [facility] Adult Encount er/ Legacy 00:00:00 00:00:00 Visit Cecy [facility] [id number] Co mmuni 253699 Health 2016-04-15 2016-04-15 Office Kiel Billy [facility] En[facility] ter/ Legacy 00:00:00 00:00:00 Visit [facility] [id number] [facility] 216730 [facility] Health 2016-04-15 2016-04-15 Office Karie [facility] Encounter / Legacy 00:00:00 00:00:00 Visit [facility] [id number] [facility] 677921 [facility] Health 2014-09-04 2014-09-04 Office Garcia [facility] Manuel Encounter/ Legacy 00:00:00 00:00:00 Visit [facility] [id number] Com alonzo 503057 [facility] 2012-10-25 2012-10-25 Office Nestor Guzman [facility] Vision Enc ounter/ Legacy 00:00:00 00:00:00 Visit [id number] Com alonzo 741329 [facility] 2012-10-25 2012-10-25 Office Shashank [facility] Vision Encoun ter/ Legacy 00:00:00 00:00:00 Visit Shirley [id number] Com alonzo 996489 [facility] 2012-10-16 2012-10-16 Office Shashank [facility] Vision Encoun ter/ Legacy 00:00:00 00:00:00 Visit Shirley [id number] Com alonzo 824019 [facility] 2012-10-16 2012-10-16 Office Casa Riggs [facility] Visio n Encounter/ Legacy 00:00:00 00:00:00 Visit Nitza Alex [id number] Communi 071230 [facility] 2012-10-16 2012-10-16 Office Nestor Guzman [facility] Vision Enc ounter/ Legacy 00:00:00 00:00:00 Visit Shirley Encarnacion [id number] Communi 224789 [facility] 2012-10-16 2012-10-16 Office Dany [facility] Adult Encounte r/ Legacy 00:00:00 00:00:00 Visit [facility] [id number] Co mmuni 054586 [facility] Results Test Description Test Time Test Comments Results Result Comments Source Treponema pallidum antibodies, by particle agglutination 07-18-28 11:10:00 Test Item Value Reference Range Interpretation Comme nts Treponema pallidum antibodies, by particle agglutination Reactiv e Non Reactive A (test code = 90473-0) [facility], [id number] 11:10:00 Test Item Value Reference Range Interpretation Comments LDL cholesterol, serum (test code = 89 mg/dL 02088-11) [facility], [id number] 11:10:00 Test Item Value Reference Range Interpretation Comments HDL cholesterol, serum (test code = 29 mg/dL >39 L 2084-9) [facility]rig[facility], serum, [id number] 11:10:00 Test Item Value Reference Range Interpretation Comments triglyceride, serum, fasting (test 272 mg/dL 0-149 H code = 2571-8) [facility]cholesterol, [id number] 11:10:00 Test Item Value Reference Range Interpretation Comments cholesterol, serum (test code = 172 mg/dL 090-334 6285-3) [facility]-helper cells (CD4) as percent of blood lymphocytes 2019-11-02 11:10:00 Test Item Value Reference Range Interpretation Comments T-helper cells (CD4) as percent of 37.8 % 30.8-58.5 blood lymphocytes (test code = 8123-2) [facility] cells (CD4) [id number] 11:10:00 Test Item Value Reference Range Interpretation Comments T-helper cells (CD4) count (test code 605 /UL 359-8719 = 73977-3) [facility]-suppressor cells (CD8) as percent of blood lymphocytes 2019-11-02 11:10:00 Test Item Value Reference Range Interpretation Comments T-suppressor cells (CD8) as percent of 46.6 % 12.0-35.5 H blood lymphocytes (test code = 3517) [facility] [id number] 11:10:00 Test Item Value Reference Range Interpretation Comments absolute CD8 (test code = 746 (unknown unit) 285-601 42690) [facility] Johnston[facility]id plasma reagin antibody, [id number] 11:10:00 Test Item Value Reference Range Interpretation Comments rapid plasma reagin 1:2 See_Comment H [Automa stefany message] The antibody, serum (test system which generated code = 5291-0) this result t ransmitted reference range : NonRea<1:1. The reference range was not u sed to interpret this result as normal/abnormal . [facility]HIV-1RNA, serum, by PCR, [id number] 11:10:00 Test Item Value Reference Range Interpretation Comments HIV-1RNA, serum, by PCR, quantitative 500 /mL (test code = 57149) [facility] Johnstonvery low density [id number] 11:10:00 Test Item Value Reference Range Interpretation Comments very low density lipoproteins (test 54 mg/dL 5-40 H code = 2091-7) [facility] Johnstonalanine aminotransferase (SGPT), [id number] 11:10:00 Test Item Value Reference Range Interpretation Comments alanine aminotransferase (SGPT), serum 63 1/L 0-44 H (test code = 1742-6) [facility] Johnstonaspartate aminotransferase (SGOT), [id number] 11:10:00 Test Item Value Reference Range Interpretation Comments aspartate aminotransferase (SGOT), 37 1/L 0-40 serum (test code = 1920-8) [facility] Johnstonalkaline phosphatase, [id number] 11:10:00 Test Item Value Reference Range Interpretation Comments alkaline phosphatase, serum (test code 80 1/L 39-117 = 1783-0) [facility] Johnstonbilirubin, serum, [id number] 11:10:00 Test Item Value Reference Range Interpretation Comments bilirubin, serum, total (test code 0.6 mg/dL 0.0-1.2 = 1975-2) [facility] Johnstonalbumin/globulin ratio, [id number] 11:10:00 Test Item Value Reference Range Interpretation Comments albumin/globulin ratio, 1.2 (unknown unit) 1.2-2.2 serum (test code = 1759-0) [facility] Healthglobulin, [id number] 11:10:00 Test Item Value Reference Range Interpretation Comments globulin, serum (test code 3.7 (unknown unit) 1.5-4.5 = 2336-6) [facility] Healthalbumin, [id number] 11:10:00 Test Item Value Reference Range Interpretation Comments albumin, serum (test code = 1751-7) 4.3 g/dL 3.5-5.5 [facility], total, [id number] 11:10:00 Test Item Value Reference Range Interpretation Comments protein, total, serum (test code = 8.0 g/dL 6.0-8.5 2885-2) [facility] Johnstoncalcium, [id number] 11:10:00 Test Item Value Reference Range Interpretation Comments calcium, serum (test code = 1999-8) 8.8 mg/dL 8.7-10.2 [facility]carbon dioxide, venous [id number] 11:10:00 Test Item Value Reference Range Interpretation Comments carbon dioxide, venous blood (test 20 mmol/L 20- code = 2026-1) [facility] Healthchloride, [id number] 11:10:00 Test Item Value Reference Range Interpretation Comments chloride, serum (test code = 100 mmol/L 96-106 5-0) [facility] Healthpotassium, [id number] 11:10:00 Test Item Value Reference Range Interpretation Comments potassium, serum (test code = 4.0 mmol/L 3.5-5.2 2823-3) [facility] Johnstonsodium, [id number] 11:10:00 Test Item Value Reference Range Interpretation Comments sodium, serum (test code = 2951-2) 134 mmol/L 134-144 [facility] Johnstonurea nitrogen/creatinine ratio, [id number] 11:10:00 Test Item Value Reference Range Interpretation Comments urea nitrogen/creatinine 12 (unknown unit) 9-20 ratio, serum (test code = 3097-3) [facility] JohnstoneGFR if [id number] 11:10:00 Test Item Value Reference Range Interpretation Comments eGFR if 101 mL/min/{1.73 m2} >59 (test code = 76550-0) [facility] JohnstonEstimated Glomerular Filtration Rate (calc)2019-11-02 11:10:00 Test Item Value Reference Range Interpretation Comments Estimated Glomerular 88 mL/min/{1.73 m2} >59 Filtration Rate (calc) (test code = 54511-9) [facility] Johnstoncreatinine, [id number] 11:10:00 Test Item Value Reference Range Interpretation Comments creatinine, serum (test code = 1.05 mg/dL 0.76-1.27 2160-0) [facility] Johnston[facility] nitrogen, [id number] 11:10:00 Test Item Value Reference Range Interpretation Comments urea nitrogen, blood (test code = 13 mg/dL 24 3094-0) [facility] [id number] 11:10:00 Test Item Value Reference Range Interpretation Comments blood glucose, random (test code = 327 mg/dL 65-99 H 2339-0) [facility]imm[facility] granulocytes, percentage of total cells, blood 2019-11-02 11:10:00 Test Item Value Reference Range Interpretation Comments immature granulocytes, percentage of 0 % total cells, blood (test code = 28618-0) [facility] Healthbasophil count, axmtohav1128-61-04 11:10:00 Test Item Value Reference Range Interpretation Comments basophil count, absolute (test 0.0 x10E3/uL 0.0-0.2 code = 60192-1) [facility] HealthEosinophil Absolute [id number] 11:10:00 Test Item Value Reference Range Interpretation Comments Eosinophil Absolute Count (test 0.1 X10E3/UL 0.0-0.4 code = 23976-8) [facility] count, blood, [id number] 11:10:00 Test Item Value Reference Range Interpretation Comments monocyte count, blood, automated 0.2 X10E3/UL 0.1-0.9 (test code = 742-7) [facility]lymph[facility], blood, sxxoftncr8658-31-40 11:10:00 Test Item Value Reference Range Interpretation Comments lymphocyte count, blood, 1.6 X10E3/UL 0.7-3.1 automated (test code = 731-0) [facility] Rtvvdtsqjjv1444-40-16 11:10:00 Test Item Value Reference Range Interpretation Comments Absolute Neutrophils (test code 3.9 X10E3/UL 1.4-7.0 = 22269-5) [facility]ophils as percent of blood kiugxqwmxf3421-24-85 11:10:00 Test Item Value Reference Range Interpretation Comments basophils as percent of blood 0 % leukocytes (test code = 707-0) [facility] Healtheosinophils as percent of blood okhkzxvpxu7303-29-82 11:10:00 Test Item Value Reference Range Interpretation Comments eosinophils as percent of blood 2 % leukocytes (test code = 713-8) [facility] Healthmonocytes as percent of blood vyflrhsukj2552-89-00 11:10:00 Test Item Value Reference Range Interpretation Comments monocytes as percent of blood 4 % leukocytes (test code = 5905-5) [facility]lymphocytes as percent of blood xszceuilza4749-84-78 11:10:00 Test Item Value Reference Range Interpretation Comments lymphocytes as percent of blood 28 % leukocytes (test code = 736-9) [facility] Johnstonneutrophils as percent of blood dbouxzsonw9504-34-32 11:10:00 Test Item Value Reference Range Interpretation Comments neutrophils as percent of blood 66 % leukocytes (test code = 770-8) [facility] Johnstonplatelet qmzlp1879-12-86 11:10:00 Test Item Value Reference Range Interpretation Comments platelet count (test code = 177 X10E3/UL 150-450 777-3) [facility] cell distribution bqnjv1761-70-18 11:10:00 Test Item Value Reference Range Interpretation Comments red blood cell distribution width 14.7 % 12.3-15.4 (test code = 788-0) [facility] corpuscular hemoglobin concentration, [id number] 11:10:00 Test Item Value Reference Range Interpretation Comments mean corpuscular hemoglobin 34.5 G/DL 31.5-35.7 concentration, RBC (test code = 786-4) [facility] corpuscular hemoglobin, [id number] 11:10:00 Test Item Value Reference Range Interpretation Comments mean corpuscular hemoglobin, RBC 29.3 pg 26.6-33.0 (test code = 785-6) [facility] corpuscular volume, [id number] 11:10:00 Test Item Value Reference Range Interpretation Comments mean corpuscular volume, RBC (test code 85 fL 79-97 = 787-2) [facility]hematocrit, osmkz6009-88-88 11:10:00 Test Item Value Reference Range Interpretation Comments hematocrit, blood (test code = 4544-3) 44.0 % 37.5-51.0 [facility]hemoglobin, clrer4797-74-13 11:10:00 Test Item Value Reference Range Interpretation Comments hemoglobin, blood (test code = 15.2 g/dL 13.0-17.7 718-7) [facility]erythrocyte (RBC) wdzri0596-52-88 11:10:00 Test Item Value Reference Range Interpretation Comments erythrocyte (RBC) count (test 5.19 X10E6/UL 4.14-5.80 code = 789-8) [facility]leukocyte count, xzcox1702-89-65 11:10:00 Test Item Value Reference Range Interpretation Comments leukocyte count, blood (test 5.9 X10E3/UL 3.4-10.8 code = 6690-2) [facility] JohnstonCD4/CD8 xoany5889-35-51 11:10:00 Test Item Value Reference Range Interpretation Comments CD4/CD8 ratio (test code 0.81 (unknown unit) 0.92-3.72 L = 14453) [facility] JohnstonLDL cholesterol, njjbg0582-40-06 16:37:00 Test Item Value Reference Range Interpretation Comments LDL cholesterol, serum (test code = 62 mg/dL 0-99 2088-1) [facility]HDL cholesterol, tyjyo7049-89-54 16:37:00 Test Item Value Reference Range Interpretation Comments HDL cholesterol, serum (test code = 27 mg/dL >39 L 2084-9) [facility]stontriglyceride, serum, melusoq9633-73-03 16:37:00 Test Item Value Reference Range Interpretation Comments triglyceride, serum, fasting (test 331 mg/dL 0-149 H code = 2571-8) [facility]cholesterol, sfict2606-89-90 16:37:00 Test Item Value Reference Range Interpretation Comments cholesterol, serum (test code = 155 mg/dL 304-101 5947-3) [facility]very low density wkekhqmauanu3427-61-61 16:37:00 Test Item Value Reference Range Interpretation Comments very low density lipoproteins (test 66 mg/dL 5-40 H code = 2091-7) [facility] JohnstonTreponema pallidum antibodies, by particle agglutination 2019-04-26 16:26:00 Test Item Value Reference Range Interpretation Comments Treponema pallidum antibodies, by Positive Negative A particle agglutination (test code = 54289-9) [facility] Johnstonhemoglobin A1C, blood, as % of total uslzauvmfq0044-18-33 16:26:00 Test Item Value Reference Range Interpretation Comments hemoglobin A1C, blood, as % of total 10.3 % 4.8-5.6 H hemoglobin (test code = 4548-4) [facility] JohnstonT-helper cells (CD4) as percent of blood lymphocytes 2019-04-26 16:26:00 Test Item Value Reference Range Interpretation Comments T-helper cells (CD4) as percent of 44.1 % 30.8-58.5 blood lymphocytes (test code = 8123-2) [facility] JohnstonT-helper cells (CD4) ucvcd7487-98-59 16:26:00 Test Item Value Reference Range Interpretation Comments T-helper cells (CD4) count (test code 573 /UL 359-1519 = 85447-6) [facility] Johnstonhepatitis C antibody, mesmp9546-42-51 16:26:00 Test Item Value Reference Range Interpretation Comments hepatitis C antibody, serum (test code <0.1 0.0-0.9 = 5199-5) [facility] Johnstonrapid plasma reagin antibody, madla8907-45-87 16:26:00 Test Item Value Reference Range Interpretation Comments rapid plasma reagin 1:1 See_Comment H [Automa stefany message] The antibody, serum (test system which generated code = 5291-0) this result t ransmitted reference range : NonRea<1:1. The reference range was not u sed to interpret this result as normal/abnormal . [facility]HIV-1RNA, serum, by PCR, uazcsjbhqias4664-71-54 16:26:00 Test Item Value Reference Range Interpretation Comments HIV-1RNA, serum, by PCR, quantitative 30 /mL (test code = 50244) [facility], by Polymer[facility] Chain Reaction 2019-04-26 16:26:00 Test Item Value Reference Range Interpretation Comments Hepatitis B virus DNA, HBV DNA not detected by Polymerase Chain Reaction (test code = 48989) [facility] Johnstonalanine aminotransferase (SGPT), [id number] 16:26:00 Test Item Value Reference Range Interpretation Comments alanine aminotransferase (SGPT), serum 47 1/L 0-44 H (test code = 1742-6) [facility] Johnstonaspartate aminotransferase (SGOT), hawey1354-84-15 16:26:00 Test Item Value Reference Range Interpretation Comments aspartate aminotransferase (SGOT), 34 1/L 0-40 serum (test code = 1920-8) [facility] Johnstonalkaline phosphatase, ectrd1846-84-23 16:26:00 Test Item Value Reference Range Interpretation Comments alkaline phosphatase, serum (test 101 1/L 39-117 code = 1783-0) [facility] Healthbilirubin, serum, [id number] 16:26:00 Test Item Value Reference Range Interpretation Comments bilirubin, serum, total (test code 0.3 mg/dL 0.0-1.2 = 1975-2) [facility] Healthalbumin/globulin ratio, [id number] 16:26:00 Test Item Value Reference Range Interpretation Comments albumin/globulin ratio, 1.6 (unknown unit) 1.2-2.2 serum (test code = 1759-0) [facility] Healthglobulin, muwnn3907-17-20 16:26:00 Test Item Value Reference Range Interpretation Comments globulin, serum (test code 2.8 (unknown unit) 1.5-4.5 = 2336-6) [facility] Healthalbumin, ukqhx8306-08-64 16:26:00 Test Item Value Reference Range Interpretation Comments albumin, serum (test code = 1751-7) 4.4 g/dL 3.5-5.5 [facility]protein, total, [id number] 16:26:00 Test Item Value Reference Range Interpretation Comments protein, total, serum (test code = 7.2 g/dL 6.0-8.5 2885-2) [facility]calcium, [id number] 16:26:00 Test Item Value Reference Range Interpretation Comments calcium, serum (test code = 1999-8) 8.9 mg/dL 8.7-10.2 [facility]carbon dioxide, venous qszng9054-06-68 16:26:00 Test Item Value Reference Range Interpretation Comments carbon dioxide, venous blood (test 19 mmol/L 20-29 L code = 2026-1) [facility] Johnstonchloride, afbzd6843-72-05 16:26:00 Test Item Value Reference Range Interpretation Comments chloride, serum (test code = 103 mmol/L 96-106 5-0) [facility] Johnstonpotassium, rlyci0199-55-64 16:26:00 Test Item Value Reference Range Interpretation Comments potassium, serum (test code = 4.5 mmol/L 3.5-5.2 2823-3) [facility] Johnstonsodium, venuq2479-90-03 16:26:00 Test Item Value Reference Range Interpretation Comments sodium, serum (test code = 2951-2) 139 mmol/L 134-144 [facility] Johnstonurea nitrogen/creatinine ratio, [id number] 16:26:00 Test Item Value Reference Range Interpretation Comments urea nitrogen/creatinine 12 (unknown unit) 9-20 ratio, serum (test code = 3097-3) [facility] HealtheGFR if Nfvspalh7273-47-81 16:26:00 Test Item Value Reference Range Interpretation Comments eGFR if 123 mL/min/{1.73 m2} >59 (test code = 78680-5) [facility] JohnstonEstimated Glomerular Filtration Rate (calc)2019-04-26 16:26:00 Test Item Value Reference Range Interpretation Comments Estimated Glomerular 106 mL/min/{1.73 m2} >59 Filtration Rate (calc) (test code = 10229-2) [facility] Johnstoncreatinine, [id number] 16:26:00 Test Item Value Reference Range Interpretation Comments creatinine, serum (test code = 0.90 mg/dL 0.76-1.27 2160-0) [facility] Johnstonurea nitrogen, kooxq9531-38-96 16:26:00 Test Item Value Reference Range Interpretation Comments urea nitrogen, blood (test code = 11 mg/dL 6-24 3094-0) [facility]blood glucose, [id number] 16:26:00 Test Item Value Reference Range Interpretation Comments blood glucose, random (test code = 325 mg/dL 65-99 H 2339-0) [facility] Johnstonimmature granulocytes, percentage of total cells, blood 2019-04-26 16:26:00 Test Item Value Reference Range Interpretation Comments immature granulocytes, percentage of 1 % total cells, blood (test code = 91388-9) [facility] Johnstonbasophil count, dwnhhkhu9487-11-44 16:26:00 Test Item Value Reference Range Interpretation Comments basophil count, absolute (test 0.0 x10E3/uL 0.0-0.2 code = 67339-6) [facility] JohnstonEosinophil Absolute Dfrbt0510-03-16 16:26:00 Test Item Value Reference Range Interpretation Comments Eosinophil Absolute Count (test 0.1 X10E3/UL 0.0-0.4 code = 38798-8) [facility] Healthmonocyte count, blood, mvakhhhqp5834-73-79 16:26:00 Test Item Value Reference Range Interpretation Comments monocyte count, blood, automated 0.5 X10E3/UL 0.1-0.9 (test code = 742-7) [facility] Johnstonlymphocyte count, blood, uwgaviczu6992-27-60 16:26:00 Test Item Value Reference Range Interpretation Comments lymphocyte count, blood, 1.3 X10E3/UL 0.7-3.1 automated (test code = 731-0) [facility]Absolute Jpuhrolfhjb4357-37-17 16:26:00 Test Item Value Reference Range Interpretation Comments Absolute Neutrophils (test code 6.9 X10E3/UL 1.4-7.0 = 37655-8) [facility] Johnstonbasophils as percent of blood qpimtbickd6015-50-80 16:26:00 Test Item Value Reference Range Interpretation Comments basophils as percent of blood 0 % leukocytes (test code = 707-0) [facility] Johnstoneosinophils as percent of blood lgpcckunct3644-09-68 16:26:00 Test Item Value Reference Range Interpretation Comments eosinophils as percent of blood 1 % leukocytes (test code = 713-8) [facility] Healthmonocytes as percent of blood jjpthaiays4465-88-23 16:26:00 Test Item Value Reference Range Interpretation Comments monocytes as percent of blood 5 % leukocytes (test code = 5905-5) [facility] Johnstonlymphocytes as percent of blood nwwbrigwrl8725-38-95 16:26:00 Test Item Value Reference Range Interpretation Comments lymphocytes as percent of blood 15 % leukocytes (test code = 736-9) [facility] Johnstonneutrophils as percent of blood evxmnmlzoj0517-60-07 16:26:00 Test Item Value Reference Range Interpretation Comments neutrophils as percent of blood 78 % leukocytes (test code = 770-8) [facility] Johnstonplatelet vfbmo8184-43-98 16:26:00 Test Item Value Reference Range Interpretation Comments platelet count (test code = 267 X10E3/UL 150-450 777-3) [facility] Johnstonred blood cell distribution mluur4311-72-36 16:26:00 Test Item Value Reference Range Interpretation Comments red blood cell distribution width 13.2 % 12.3-15.4 (test code = 788-0) [facility] corpuscular hemoglobin concentration, [id number] 16:26:00 Test Item Value Reference Range Interpretation Comments mean corpuscular hemoglobin 34.7 G/DL 31.5-35.7 concentration, RBC (test code = 786-4) [facility] hemoglobin, [id number] 16:26:00 Test Item Value Reference Range Interpretation Comments mean corpuscular hemoglobin, RBC 30.6 pg 26.6-33.0 (test code = 785-6) [facility] corpuscular volume, [id number] 16:26:00 Test Item Value Reference Range Interpretation Comments mean corpuscular volume, RBC (test code 88 fL 79-97 = 787-2) [facility]hematocrit, xpisn3284-56-64 16:26:00 Test Item Value Reference Range Interpretation Comments hematocrit, blood (test code = 4544-3) 48.7 % 37.5-51.0 [facility]hemoglobin, [id number] 16:26:00 Test Item Value Reference Range Interpretation Comments hemoglobin, blood (test code = 16.9 g/dL 13.0-17.7 718-7) [facility] Johnstonerythrocyte (RBC) bgyqu5518-34-96 16:26:00 Test Item Value Reference Range Interpretation Comments erythrocyte (RBC) count (test 5.52 X10E6/UL 4.14-5.80 code = 789-8) [facility]leukocyte count, eibqo6362-66-48 16:26:00 Test Item Value Reference Range Interpretation Comments leukocyte count, blood (test 8.9 X10E3/UL 3.4-10.8 code = 6690-2) [facility] JohnstonCD4/CD8 ljwja7682-38-20 16:26:00 Test Item Value Reference Range Interpretation Comments CD4/CD8 ratio (test code 1.45 (unknown unit) 0.92-3.72 = 46033) [facility] JohnstonT-suppressor cells (CD8) as percent of blood lymphocytes 2019-04-26 16:26:00 Test Item Value Reference Range Interpretation Comments T-suppressor cells (CD8) as percent of 30.4 % 12.0-35.5 blood lymphocytes (test code = 3517) [facility]absolute [id number] 16:26:00 Test Item Value Reference Range Interpretation Comments absolute CD8 (test code = 395 (unknown unit) [phone]) [facility]HIV-1 RNA (log 10)2018-10-25 10:41:00 Test Item Value Reference Range Interpretation Comments HIV-1 RNA (log 10) <1.30 DETECTED Log NOT DETECTED A (test code = 31059) copies/mL [facility]HIV-1RNA, serum, by PCR, pirqqokqkxqj6963-25-78 10:41:00 Test Item Value Reference Range Interpretation Comments HIV-1RNA, serum, by PCR, <20 DETECTED NOT DETECTED A quantitative (test code = copies/mL 58287) [facility] JohnstonTreponema pallidum Ab, vikla4074-42-46 10:40:00 Test Item Value Reference Range Interpretation Comments Treponema pallidum Ab, serum (test REACTIVE NON-REACTIVE A code = 67584-0) [facility] JohnstonT-helper cells (CD4) atssp0003-90-73 10:40:00 Test Item Value Reference Range Interpretation Comments T-helper cells (CD4) count (test 663 CELLS/UL 490-1740 N code = 03670-7) [facility] JohnstonT-helper cells (CD4) as percent of blood lymphocytes 2018-10-25 10:40:00 Test Item Value Reference Range Interpretation Comments T-helper cells (CD4) as percent of 44 % 30-61 N blood lymphocytes (test code = 8123-2) [facility] JohnstonLDL cholesterol, nlrwi8721-88-46 10:40:00 Test Item Value Reference Range Interpretation Comments LDL cholesterol, LDL cholesterol not serum (test code = calculated. Triglyceride 9-1) le... mg/dL (calc) [facility]stontriglyceride, serum, vsxkxfp0674-70-74 10:40:00 Test Item Value Reference Range Interpretation Comments triglyceride, serum, fasting (test 407 mg/dL <150 H code = 2571-8) [facility] JohnstonHDL cholesterol, buswk8967-45-47 10:40:00 Test Item Value Reference Range Interpretation Comments HDL cholesterol, serum (test code = 24 mg/dL >40 L 2085-9) [facility] Johnstoncholesterol, wayhs4844-46-23 10:40:00 Test Item Value Reference Range Interpretation Comments cholesterol, serum (test code = 178 mg/dL <200 N 2093-3) [facility] Johnstonrapid plasma reagin antibody, hyklr7757-59-15 10:40:00 Test Item Value Reference Range Interpretation Comments rapid plasma reagin antibody, serum REACTIVE NON-REACTIVE A (test code = 5291-0) [facility] Healthbasophils as percent of blood fxpfhvppfc3311-92-78 10:40:00 Test Item Value Reference Range Interpretation Comments basophils as percent of blood 0.4 % N leukocytes (test code = 707-0) [facility]stoneosinophils as percent of blood kyjzmrrmgj9027-18-97 10:40:00 Test Item Value Reference Range Interpretation Comments eosinophils as percent of blood 1.2 % N leukocytes (test code = 714-6) [facility] Johnstonmonocytes as percent of blood rwpeazrqtf0084-93-47 10:40:00 Test Item Value Reference Range Interpretation Comments monocytes as percent of blood 4.2 % N leukocytes (test code = 5905-5) [facility] Johnstonlymphocytes as percent of blood htjruzabzt0982-13-81 10:40:00 Test Item Value Reference Range Interpretation Comments lymphocytes as percent of blood 18.9 % N leukocytes (test code = 736-9) [facility] Johnstonneutrophils as percent of blood zqfealazhm1790-48-70 10:40:00 Test Item Value Reference Range Interpretation Comments neutrophils as percent of blood 75.3 % N leukocytes (test code = 770-8) [facility]basophil count, tcnqvhpb5015-30-47 10:40:00 Test Item Value Reference Range Interpretation Comments basophil count, absolute (test 33 cells/uL 0-200 N code = 36887-1) [facility]Absolute Eosinophil rrwez3555-87-06 10:40:00 Test Item Value Reference Range Interpretation Comments Absolute Eosinophil count (test 100 cells/mcL 15-500 N code = 42185-9) [facility]Absolute Monocyte wsqld2910-96-20 10:40:00 Test Item Value Reference Range Interpretation Comments Absolute Monocyte count (test 349 cells/mcL 200-950 N code = 58380-7) [facility]Absolute Neutrophil crtuh2147-45-01 10:40:00 Test Item Value Reference Range Interpretation Comments Absolute Neutrophil count 6250 cells/mcL 7242-5815 N (test code = 19371-0) [facility] platelet qzpxzn5822-82-22 10:40:00 Test Item Value Reference Range Interpretation Comments mean platelet volume (test code = 11.2 fL 7.5-12.5 N 776-5) [facility] Johnstonplatelet pnxxl6188-77-97 10:40:00 Test Item Value Reference Range Interpretation Comments platelet count (test code = 230 THOUSAND/UL 140-400 N 777-3) [facility] Johnstonred blood cell distribution tmhne0201-03-34 10:40:00 Test Item Value Reference Range Interpretation Comments red blood cell distribution width 13.1 % 11.0-15.0 N (test code = 788-0) [facility] corpuscular hemoglobin concentration, [id number] 10:40:00 Test Item Value Reference Range Interpretation Comments mean corpuscular hemoglobin 35.4 G/DL 32.0-36.0 N concentration, RBC (test code = 786-4) [facility] corpuscular hemoglobin, [id number] 10:40:00 Test Item Value Reference Range Interpretation Comments mean corpuscular hemoglobin, RBC 31.2 pg 27.0-33.0 N (test code = 785-6) [facility] corpuscular volume, [id number] 10:40:00 Test Item Value Reference Range Interpretation Comments mean corpuscular volume, RBC (test 88.1 fL 80.0-100.0 N code = 787-2) [facility]hematocrit, ytpfb8315-15-16 10:40:00 Test Item Value Reference Range Interpretation Comments hematocrit, blood (test code = 4544-3) 45.7 % 38.5-50.0 N [facility] Johnstonhemoglobin, [id number] 10:40:00 Test Item Value Reference Range Interpretation Comments hemoglobin, blood (test code = 16.2 g/dL 13.2-17.1 N 718-7) [facility] Johnstonerythrocyte (RBC) cbmkt5282-63-64 10:40:00 Test Item Value Reference Range Interpretation Comments erythrocyte (RBC) count (test 5.19 MILLION/UL 4.20-5.80 N code = 789-8) [facility] Johnstonleukocyte count, giaxh1487-19-22 10:40:00 Test Item Value Reference Range Interpretation Comments leukocyte count, blood (test 8.3 THOUSAND/UL 3.8-10.8 N code = 6690-2) [facility] Johnstonlymphocytes, lxwojtca3595-73-97 10:40:00 Test Item Value Reference Range Interpretation Comments lymphocytes, absolute (test 1569 CELLS/UL 850-3900 N code = 73684-7) [facility] JohnstonCD4/CD8 rfywa1845-97-22 10:40:00 Test Item Value Reference Range Interpretation Comments CD4/CD8 ratio (test code 1.52 (unknown unit) 0.86-5.00 N = 57268) [facility]absolute [id number] 10:40:00 Test Item Value Reference Range Interpretation Comments absolute CD8 (test code = 436 (unknown unit) 180-1170 N 32818) [facility] JohnstonT-suppressor cells (CD8) as percent of blood lymphocytes 2018-10-25 10:40:00 Test Item Value Reference Range Interpretation Comments T-suppressor cells (CD8) as percent of 29 % 12-42 N blood lymphocytes (test code = 3517) [facility] Johnstonalanine aminotransferase (SGPT), iyrmv7213-09-07 10:40:00 Test Item Value Reference Range Interpretation Comments alanine aminotransferase (SGPT), serum 79 1/L 9-46 H (test code = 1742-6) [facility] Johnstonaspartate aminotransferase (SGOT), vdbpc7956-35-79 10:40:00 Test Item Value Reference Range Interpretation Comments aspartate aminotransferase (SGOT), 51 1/L 10-40 H serum (test code = 1920-8) [facility] Johnstonalkaline phosphatase, hfvhd0624-10-24 10:40:00 Test Item Value Reference Range Interpretation Comments alkaline phosphatase, serum (test code 87 1/L 40-115 N = 1783-0) [facility] Johnstonbilirubin, serum, [id number] 10:40:00 Test Item Value Reference Range Interpretation Comments bilirubin, serum, total (test code 0.7 mg/dL 0.2-1.2 N = 1975-2) [facility] Healthalbumin/globulin ratio, wsuyi1916-71-45 10:40:00 Test Item Value Reference Range Interpretation Comments albumin/globulin ratio, serum 1.7 (calc) 1.0-2.5 N (test code = 1759-0) [facility] Johnstonglobulins, serum, nxxtw3631-10-29 10:40:00 Test Item Value Reference Range Interpretation Comments globulins, serum, total (test 2.6 G/DL (CALC) 1.9-3.7 N code = 2336-6) [facility] Healthalbumin, [id number] 10:40:00 Test Item Value Reference Range Interpretation Comments albumin, serum (test code = 175-7) 4.4 g/dL 3.6-5.1 N [facility] Johnstonprotein, total, tjwnq7012-75-55 10:40:00 Test Item Value Reference Range Interpretation Comments protein, total, serum (test code = 7.0 g/dL 6.1-8.1 N 5-2) [facility] Johnstoncalcium, zvtou7141-98-37 10:40:00 Test Item Value Reference Range Interpretation Comments calcium, serum (test code = 2000-06) 9.1 mg/dL 8.6-10.3 N [facility] Johnstoncarbon dioxide, venous boube1148-12-82 10:40:00 Test Item Value Reference Range Interpretation Comments carbon dioxide, venous blood (test 24 mmol/L 20-32 N code = 2026-1) [facility] Johnstonchloride, evqvj5474-48-07 10:40:00 Test Item Value Reference Range Interpretation Comments chloride, serum (test code = 105 mmol/L 98-110 N 5-0) [facility] [id number] 10:40:00 Test Item Value Reference Range Interpretation Comments potassium, serum (test code = 3.9 mmol/L 3.5-5.3 N 2823-3) [facility]onsodium, hnjwc0657-55-72 10:40:00 Test Item Value Reference Range Interpretation Comments sodium, serum (test code = 2951-2) 139 mmol/L 135-146 N [facility] Johnstonurea nitrogen/creatinine ratio, innct6454-77-47 10:40:00 Test Item Value Reference Range Interpretation Comments urea NOT APPLICABLE (calc) 6-22 nitrogen/creatinine ratio, serum (test code = 3097-3) [facility] JohnstoneGFR if Bzowmlsy1525-15-44 10:40:00 Test Item Value Reference Range Interpretation Comments eGFR if 114 See_Comment N [Automated message] Beninese (test mL/min/{1.73 The system wh ich code = 86787-3) m2} generated th is result transmitted ref erence range: > OR = 6 0. The reference range was not used to int erpret this result as normal/abnormal . [facility] JohnstonEstimated Glomerular Filtration Rate (calc)2018-10-25 10:40:00 Test Item Value Reference Range Interpretation Comments Estimated Glomerular 98 See_Comment N [Autom ated message] Filtration Rate mL/min/{1.73 The system w hich (calc) (test code = m2} generate d this 04130-3) result transmit stefany reference range : > OR = 60. The reference range was not used to interpret this result as normal/abnormal . [facility] Johnstoncreatinine, ltmue5016-86-67 10:40:00 Test Item Value Reference Range Interpretation Comments creatinine, serum (test code = 0.96 mg/dL 0.60-1.35 N 2160-0) [facility] nitrogen, scnfr9528-88-82 10:40:00 Test Item Value Reference Range Interpretation Comments urea nitrogen, blood (test code = 10 mg/dL 7-25 N 3094-0) [facility] Johnstonblood glucose, eesjuj4310-04-36 10:40:00 Test Item Value Reference Range Interpretation Comments blood glucose, random (test code = 217 mg/dL 65-99 H 2339-0) [facility]cholesterol, non-HDL, reety8504-22-16 10:40:00 Test Item Value Reference Range Interpretation Comments cholesterol, non-HDL, total 154 MG/DL (CALC) <130 H (test code = 20943) [facility]ch[facility]/HDL ratio, serum, mxvnqdz9621-09-48 10:40:00 Test Item Value Reference Range Interpretation Comments cholesterol/HDL ratio, serum, 7.4 (calc) <5.0 H percent (test code = 2404) [facility] JohnstonQuantiferon Gold TB blood test for tuberculosis screening 2018-05-22 09:03:00 Test Item Value Reference Range Interpretation Comments Quantiferon Gold TB blood test for Negative Negative tuberculosis screening (test code = 08941-7) [facility]HIV-1RNA, serum, by PCR, egecprgehozv4005-32-65 08:46:00 Test Item Value Reference Range Interpretation Comments HIV-1RNA, serum, by PCR, <20 copies/mL quantitative (test code = 51738) [facility] JohnstonTreponema pallidum antibodies, by particle agglutination 2018-05-21 08:44:00 Test Item Value Reference Range Interpretation Comments Treponema pallidum antibodies, by Positive Negative A particle agglutination (test code = 74271-6) [facility] Johnstonhemoglobin A1C, blood, as % of total famtjyrmdo0044-71-40 08:44:00 Test Item Value Reference Range Interpretation Comments hemoglobin A1C, blood, as % of total 6.4 % 4.8-5.6 H hemoglobin (test code = 4548-4) [facility] JohnstonLDL cholesterol, vfzku8400-10-40 08:44:00 Test Item Value Reference Range Interpretation Comments LDL cholesterol, serum (test TRIGHI mg/dL 0-99 code = 2089-1) [facility] JohnstonHDL cholesterol, vftrn4832-34-39 08:44:00 Test Item Value Reference Range Interpretation Comments HDL cholesterol, serum (test code = 22 mg/dL >39 L 5-9) [facility]stontriglyceride, serum, xjpodnj3302-29-67 08:44:00 Test Item Value Reference Range Interpretation Comments triglyceride, serum, fasting (test 401 mg/dL 0-149 H code = 2571-8) [facility] Johnstoncholesterol, [id number] 08:44:00 Test Item Value Reference Range Interpretation Comments cholesterol, serum (test code = 159 mg/dL 062-892 6769-3) [facility] JohnstonT-helper cells (CD4) as percent of blood lymphocytes 2018-05-21 08:44:00 Test Item Value Reference Range Interpretation Comments T-helper cells (CD4) as percent of 47.1 % 30.8-58.5 blood lymphocytes (test code = 8123-2) [facility] JohnstonT-helper cells (CD4) fveza7776-33-75 08:44:00 Test Item Value Reference Range Interpretation Comments T-helper cells (CD4) count (test 1130 /UL 359-1519 code = 26243-5) [facility] Johnstonrapid plasma reagin antibody, ojvdc5078-35-85 08:44:00 Test Item Value Reference Range Interpretation Comments rapid plasma reagin 1:2 See_Comment H [Automa stefany message] The antibody, serum (test system which generated code = 5291-0) this result t ransmitted reference range : NonRea<1:1. The reference range was not u sed to interpret this result as normal/abnormal . [facility] JohnstonHepatitis B virus DNA, by Polymerase Chain Reaction 2018-05-21 08:44:00 Test Item Value Reference Range Interpretation Comments Hepatitis B virus DNA, HBV DNA not detected by Polymerase Chain Reaction (test code = 03087) [facility] Johnstonvery low density bduqxneuhwvi9249-35-20 08:44:00 Test Item Value Reference Range Interpretation Comments very low density lipoproteins VLDLCH mg/dL 5-40 (test code = 2091-7) [facility] Johnstonalanine aminotransferase (SGPT), tlazg6520-20-26 08:44:00 Test Item Value Reference Range Interpretation Comments alanine aminotransferase (SGPT), 121 1/L 0-44 H serum (test code = 1742-6) [facility] Johnstonaspartate aminotransferase (SGOT), fdjqk8700-41-99 08:44:00 Test Item Value Reference Range Interpretation Comments aspartate aminotransferase (SGOT), 41 1/L 0-40 H serum (test code = 1920-8) [facility] Johnstonalkaline phosphatase, sswfj0746-10-62 08:44:00 Test Item Value Reference Range Interpretation Comments alkaline phosphatase, serum (test code 85 1/L 39-117 = 1783-0) [facility]bilirubin, serum, dokjs2338-31-38 08:44:00 Test Item Value Reference Range Interpretation Comments bilirubin, serum, total (test code 0.3 mg/dL 0.0-1.2 = 1975-2) [facility] Johnstonalbumin/globulin ratio, frtkb0226-90-40 08:44:00 Test Item Value Reference Range Interpretation Comments albumin/globulin ratio, 1.6 (unknown unit) 1.2-2.2 serum (test code = 1759-0) [facility] Healthglobulin, cookf3491-69-27 08:44:00 Test Item Value Reference Range Interpretation Comments globulin, serum (test code 2.8 (unknown unit) 1.5-4.5 = 2336-6) [facility] Healthalbumin, coiwv2248-01-00 08:44:00 Test Item Value Reference Range Interpretation Comments albumin, serum (test code = 1751-7) 4.5 g/dL 3.5-5.5 [facility] Healthprotein, total, rzkbc1776-27-61 08:44:00 Test Item Value Reference Range Interpretation Comments protein, total, serum (test code = 7.3 g/dL 6.0-8.5 2885-2) [facility] Healthcalcium, rmdwh2043-04-57 08:44:00 Test Item Value Reference Range Interpretation Comments calcium, serum (test code = 1999-8) 9.3 mg/dL 8.7-10.2 [facility] Johnstoncarbon dioxide, venous vpcit4822-34-31 08:44:00 Test Item Value Reference Range Interpretation Comments carbon dioxide, venous blood (test 21 mmol/L 20-29 code = 2026-1) [facility] Healthchloride, khbnw7136-00-91 08:44:00 Test Item Value Reference Range Interpretation Comments chloride, serum (test code = 102 mmol/L 96-106 5-0) [facility] Healthpotassium, [id number] 08:44:00 Test Item Value Reference Range Interpretation Comments potassium, serum (test code = 3.9 mmol/L 3.5-5.2 2823-3) [facility] Healthsodium, jreqc3376-79-70 08:44:00 Test Item Value Reference Range Interpretation Comments sodium, serum (test code = 2951-2) 141 mmol/L 134-144 [facility]urea nitrogen/creatinine ratio, quszp2339-87-79 08:44:00 Test Item Value Reference Range Interpretation Comments urea nitrogen/creatinine 11 (unknown unit) 9-20 ratio, serum (test code = 3097-3) [facility] HealtheGFR if Jcrcztzj3906-64-85 08:44:00 Test Item Value Reference Range Interpretation Comments eGFR if 101 mL/min/{1.73 m2} >59 (test code = 95368-7) [facility] JohnstonEstimated Glomerular Filtration Rate (calc)2018-05-21 08:44:00 Test Item Value Reference Range Interpretation Comments Estimated Glomerular 87 mL/min/{1.73 m2} >59 Filtration Rate (calc) (test code = 68699-4) [facility] Johnstoncreatinine, rwfvt1980-58-02 08:44:00 Test Item Value Reference Range Interpretation Comments creatinine, serum (test code = 1.07 mg/dL 0.76-1.27 2160-0) [facility]ure[facility] nitrogen, pwgkb7525-25-36 08:44:00 Test Item Value Reference Range Interpretation Comments urea nitrogen, blood (test code = 12 mg/dL 6-20 3094-0) [facility] Johnstonblood glucose, khxben0840-96-64 08:44:00 Test Item Value Reference Range Interpretation Comments blood glucose, random (test code = 315 mg/dL 65-99 H 2339-0) [facility] Johnstonimmature granulocytes, percentage of total cells, blood 2018-05-21 08:44:00 Test Item Value Reference Range Interpretation Comments immature granulocytes, percentage of 0 % total cells, blood (test code = 78065-5) [facility] Johnstonbasophil count, frhwisaj2794-93-25 08:44:00 Test Item Value Reference Range Interpretation Comments basophil count, absolute (test 0.0 x10E3/uL 0.0-0.2 code = 45581-2) [facility] JohnstonEosinophil Absolute Agzoy4513-79-47 08:44:00 Test Item Value Reference Range Interpretation Comments Eosinophil Absolute Count (test 0.2 X10E3/UL 0.0-0.4 code = 71355-6) [facility] Johnstonmonocyte count, blood, brzopvnni5403-86-39 08:44:00 Test Item Value Reference Range Interpretation Comments monocyte count, blood, automated 0.3 X10E3/UL 0.1-0.9 (test code = 742-7) [facility] Johnstonlymphocyte count, blood, lrczoivbp5472-64-60 08:44:00 Test Item Value Reference Range Interpretation Comments lymphocyte count, blood, 2.4 X10E3/UL 0.7-3.1 automated (test code = 731-0) [facility] JohnstonAbsolute Lhhjuugplan1482-55-75 08:44:00 Test Item Value Reference Range Interpretation Comments Absolute Neutrophils (test code 7.3 X10E3/UL 1.4-7.0 H = 18548-3) [facility] Johnstonbasophils as percent of blood uiqfgcbzoh9347-30-46 08:44:00 Test Item Value Reference Range Interpretation Comments basophils as percent of blood 0 % leukocytes (test code = 707-0) [facility] Johnstoneosinophils as percent of blood bpvoknmwqq6953-36-49 08:44:00 Test Item Value Reference Range Interpretation Comments eosinophils as percent of blood 2 % leukocytes (test code = 713-8) [facility] Healthmonocytes as percent of blood nlyaoudpvu2150-53-64 08:44:00 Test Item Value Reference Range Interpretation Comments monocytes as percent of blood 3 % leukocytes (test code = 5905-5) [facility] Johnstonlymphocytes as percent of blood kyiieqhthl2517-67-39 08:44:00 Test Item Value Reference Range Interpretation Comments lymphocytes as percent of blood 24 % leukocytes (test code = 736-9) [facility] Johnstonneutrophils as percent of blood iefetwgpqw8444-30-16 08:44:00 Test Item Value Reference Range Interpretation Comments neutrophils as percent of blood 71 % leukocytes (test code = 770-8) [facility] Johnstonplatelet iwopr0587-31-02 08:44:00 Test Item Value Reference Range Interpretation Comments platelet count (test code = 217 X10E3/UL 150-379 777-3) [facility] Johnstonred blood cell distribution mywaw0698-68-65 08:44:00 Test Item Value Reference Range Interpretation Comments red blood cell distribution width 14.2 % 12.3-15.4 (test code = 788-0) [facility] corpuscular hemoglobin concentration, [id number] 08:44:00 Test Item Value Reference Range Interpretation Comments mean corpuscular hemoglobin 34.6 G/DL 31.5-35.7 concentration, RBC (test code = 786-4) [facility] corpuscular hemoglobin, [id number] 08:44:00 Test Item Value Reference Range Interpretation Comments mean corpuscular hemoglobin, RBC 32.6 pg 26.6-33.0 (test code = 785-6) [facility]mean corpuscular volume, [id number] 08:44:00 Test Item Value Reference Range Interpretation Comments mean corpuscular volume, RBC (test code 94 fL 79-97 = 787-2) [facility] Johnstonhematocrit, qxhpj8084-04-26 08:44:00 Test Item Value Reference Range Interpretation Comments hematocrit, blood (test code = 4544-3) 47.4 % 37.5-51.0 [facility] Johnstonhemoglobin, jowgq0337-10-54 08:44:00 Test Item Value Reference Range Interpretation Comments hemoglobin, blood (test code = 16.4 g/dL 13.0-17.7 718-7) [facility] Johnstonerythrocyte (RBC) movxh2507-19-64 08:44:00 Test Item Value Reference Range Interpretation Comments erythrocyte (RBC) count (test 5.03 X10E6/UL 4.14-5.80 code = 789-8) [facility] Johnstonleukocyte count, bydih8214-43-70 08:44:00 Test Item Value Reference Range Interpretation Comments leukocyte count, blood (test 10.2 X10E3/UL 3.4-10.8 code = 6690-2) [facility] JohnstonCD4/CD8 ccgsk0729-88-06 08:44:00 Test Item Value Reference Range Interpretation Comments CD4/CD8 ratio (test code 1.64 (unknown unit) 0.92-3.72 = 60410) [facility] JohnstonT-suppressor cells (CD8) as percent of blood lymphocytes 2018-05-21 08:44:00 Test Item Value Reference Range Interpretation Comments T-suppressor cells (CD8) as percent of 28.7 % 12.0-35.5 blood lymphocytes (test code = 3517) [facility] Johnstonabsolute [id number] 08:44:00 Test Item Value Reference Range Interpretation Comments absolute CD8 (test code = 689 (unknown unit) 365-514 88964) [facility] JohnstonT-suppressor cells (CD8) as percent of blood lymphocytes 2017-11-24 11:58:00 Test Item Value Reference Range Interpretation Comments T-suppressor cells (CD8) as percent of 32.4 % 12.0-35.5 blood lymphocytes (test code = 3517) [facility] Healthabsolute [id number] 11:58:00 Test Item Value Reference Range Interpretation Comments absolute CD8 (test code = 616 (unknown unit) [phone]) [facility] JohnstonTreponema pallidum antibodies, by particle agglutination 2017-11-24 11:58:00 Test Item Value Reference Range Interpretation Comments Treponema pallidum antibodies, by Positive Negative A particle agglutination (test code = 27617-2) [facility] Johnstonhemoglobin A1C, blood, as % of total mgmrcrmzvs0678-47-80 11:58:00 Test Item Value Reference Range Interpretation Comments hemoglobin A1C, blood, as % of total 6.2 % 4.8-5.6 H hemoglobin (test code = 4548-4) [facility] JohnstonLDL cholesterol, vkbse7368-39-61 11:58:00 Test Item Value Reference Range Interpretation Comments LDL cholesterol, serum (test TRIGHI mg/dL 0-99 code = 2089-1) [facility] JohnstonHDL cholesterol, lsadx6421-68-70 11:58:00 Test Item Value Reference Range Interpretation Comments HDL cholesterol, serum (test code = 22 mg/dL >39 L 5-9) [facility] Johnstontriglyceride, serum, rmddynh3692-61-99 11:58:00 Test Item Value Reference Range Interpretation Comments triglyceride, serum, fasting (test 471 mg/dL 0-149 H code = 2571-8) [facility] Johnstoncholesterol, hiyui0627-69-32 11:58:00 Test Item Value Reference Range Interpretation Comments cholesterol, serum (test code = 159 mg/dL 617-748 7265-3) [facility] JohnstonT-helper cells (CD4) as percent of blood lymphocytes 2017-11-24 11:58:00 Test Item Value Reference Range Interpretation Comments T-helper cells (CD4) as percent of 44.9 % 30.8-58.5 blood lymphocytes (test code = 8123-2) [facility] JohnstonT-helper cells (CD4) fewwu3154-95-53 11:58:00 Test Item Value Reference Range Interpretation Comments T-helper cells (CD4) count (test code 853 /UL 359-1519 = 28956-2) [facility] Johnstonhepatitis C antibody, ruhki8973-42-43 11:58:00 Test Item Value Reference Range Interpretation Comments hepatitis C antibody, 0.1 (unknown unit) 0.0-0.9 serum (test code = 5199-5) [facility] Johnstonrapid plasma reagin antibody, fcbkh5653-12-91 11:58:00 Test Item Value Reference Range Interpretation Comments rapid plasma reagin 1:2 See_Comment H [Automa stefany message] The antibody, serum (test system which generated code = 5291-0) this result t ransmitted reference range : NonRea<1:1. The reference range was not u sed to interpret this result as normal/abnormal . [facility]HIV-1RNA, serum, by PCR, zhzodqxlphhr2187-02-32 11:58:00 Test Item Value Reference Range Interpretation Comments HIV-1RNA, serum, by PCR, <20 copies/mL quantitative (test code = 66154) [facility] Johnstonvery low density usynqqxjlzut5431-38-76 11:58:00 Test Item Value Reference Range Interpretation Comments very low density lipoproteins VLDLCH mg/dL 5-40 (test code = 2091-7) [facility] Johnstonalanine aminotransferase (SGPT), kdlbv6260-06-41 11:58:00 Test Item Value Reference Range Interpretation Comments alanine aminotransferase (SGPT), serum 92 1/L 0-44 H (test code = 1742-6) [facility] Johnstonaspartate aminotransferase (SGOT), jhcuj3626-50-77 11:58:00 Test Item Value Reference Range Interpretation Comments aspartate aminotransferase (SGOT), 49 1/L 0-40 H serum (test code = 1920-8) [facility] Johnstonalkaline phosphatase, quqwy8665-13-19 11:58:00 Test Item Value Reference Range Interpretation Comments alkaline phosphatase, serum (test code 79 1/L 39-117 = 1783-0) [facility] Johnstonbilirubin, serum, ixgtw6764-35-93 11:58:00 Test Item Value Reference Range Interpretation Comments bilirubin, serum, total (test code 0.4 mg/dL 0.0-1.2 = 1975-2) [facility] Johnstonalbumin/globulin ratio, nhwht8726-72-48 11:58:00 Test Item Value Reference Range Interpretation Comments albumin/globulin ratio, 1.5 (unknown unit) 1.2-2.2 serum (test code = 1759-0) [facility] Healthglobulin, ihhhy9890-64-73 11:58:00 Test Item Value Reference Range Interpretation Comments globulin, serum (test code 3.1 (unknown unit) 1.5-4.5 = 2336-6) [facility] Healthalbumin, mhnlg6688-93-29 11:58:00 Test Item Value Reference Range Interpretation Comments albumin, serum (test code = 1751-7) 4.6 g/dL 3.5-5.5 [facility] Healthprotein, total, vuenx4697-77-67 11:58:00 Test Item Value Reference Range Interpretation Comments protein, total, serum (test code = 7.7 g/dL 6.0-8.5 2885-2) [facility] Healthcalcium, rgqda2121-73-55 11:58:00 Test Item Value Reference Range Interpretation Comments calcium, serum (test code = 2000-8) 9.6 mg/dL 8.7-10.2 [facility] Johnstoncarbon dioxide, venous bjgax0745-14-31 11:58:00 Test Item Value Reference Range Interpretation Comments carbon dioxide, venous blood (test 27 mmol/L - code = 2026-1) [facility] Healthchloride, yqzrj6057-43-10 11:58:00 Test Item Value Reference Range Interpretation Comments chloride, serum (test code = 100 mmol/L 96-106 5-0) [facility] Johnstonpotassium, kzbwv3162-34-06 11:58:00 Test Item Value Reference Range Interpretation Comments potassium, serum (test code = 4.6 mmol/L 3.5-5.2 2823-3) [facility] Healthsodium, etets4383-32-53 11:58:00 Test Item Value Reference Range Interpretation Comments sodium, serum (test code = 2951-2) 143 mmol/L 134-144 [facility] Johnstonurea nitrogen/creatinine ratio, llzca1608-93-67 11:58:00 Test Item Value Reference Range Interpretation Comments urea nitrogen/creatinine 12 (unknown unit) 9-20 ratio, serum (test code = 3097-3) [facility] HealtheGFR if Ipgatgft3590-37-15 11:58:00 Test Item Value Reference Range Interpretation Comments eGFR if 99 mL/min/{1.73 m2} >59 (test code = 85510-5) [facility] JohnstonEstimated Glomerular Filtration Rate (calc)2017-11-24 11:58:00 Test Item Value Reference Range Interpretation Comments Estimated Glomerular 86 mL/min/{1.73 m2} >59 Filtration Rate (calc) (test code = 23950-1) [facility] Johnstoncreatinine, hvunb2933-25-98 11:58:00 Test Item Value Reference Range Interpretation Comments creatinine, serum (test code = 1.08 mg/dL 0.76-1.27 2160-0) [facility] Johnstonurea nitrogen, oyvwi7034-12-22 11:58:00 Test Item Value Reference Range Interpretation Comments urea nitrogen, blood (test code = 13 mg/dL 6-20 3094-0) [facility] Johnstonblood glucose, gvhtne4443-24-94 11:58:00 Test Item Value Reference Range Interpretation Comments blood glucose, random (test code = 178 mg/dL 65-99 H 2339-0) [facility] Johnstonimmature granulocytes, percentage of total cells, blood 2017-11-24 11:58:00 Test Item Value Reference Range Interpretation Comments immature granulocytes, percentage of 1 % total cells, blood (test code = 68946-0) [facility] Johnstonbasophil count, myrnkmbo1651-75-66 11:58:00 Test Item Value Reference Range Interpretation Comments basophil count, absolute (test 0.0 x10E3/uL 0.0-0.2 code = 08921-9) [facility] JohnstonEosinophil Absolute Vkbnd3679-30-34 11:58:00 Test Item Value Reference Range Interpretation Comments Eosinophil Absolute Count (test 0.1 X10E3/UL 0.0-0.4 code = 48352-3) [facility] Johnstonmonocyte count, blood, lnmhymrqb5776-37-65 11:58:00 Test Item Value Reference Range Interpretation Comments monocyte count, blood, automated 0.3 X10E3/UL 0.1-0.9 (test code = 742-7) [facility] Johnstonlymphocyte count, blood, bbacmfvno1904-22-21 11:58:00 Test Item Value Reference Range Interpretation Comments lymphocyte count, blood, 1.9 X10E3/UL 0.7-3.1 automated (test code = 731-0) [facility] JohnstonAbsolute Thjospswpwz0297-16-24 11:58:00 Test Item Value Reference Range Interpretation Comments Absolute Neutrophils (test code 4.7 X10E3/UL 1.4-7.0 = 65982-1) [facility] Johnstonbasophils as percent of blood kkzevqulnq1235-42-20 11:58:00 Test Item Value Reference Range Interpretation Comments basophils as percent of blood 0 % leukocytes (test code = 707-0) [facility] Johnstoneosinophils as percent of blood wvmwywwxtk9597-49-74 11:58:00 Test Item Value Reference Range Interpretation Comments eosinophils as percent of blood 2 % leukocytes (test code = 713-8) [facility] Johnstonmonocytes as percent of blood djumffakzf4422-91-82 11:58:00 Test Item Value Reference Range Interpretation Comments monocytes as percent of blood 4 % leukocytes (test code = 5905-5) [facility] Johnstonlymphocytes as percent of blood yarwstdsxk9151-60-37 11:58:00 Test Item Value Reference Range Interpretation Comments lymphocytes as percent of blood 26 % leukocytes (test code = 736-9) [facility] Johnstonneutrophils as percent of blood zlvighzizi3933-03-44 11:58:00 Test Item Value Reference Range Interpretation Comments neutrophils as percent of blood 67 % leukocytes (test code = 770-8) [facility] Johnstonplatelet vlwcy1579-88-62 11:58:00 Test Item Value Reference Range Interpretation Comments platelet count (test code = 247 X10E3/UL 150-379 777-3) [facility] Johnstonred blood cell distribution iibgu4123-46-04 11:58:00 Test Item Value Reference Range Interpretation Comments red blood cell distribution width 13.7 % 12.3-15.4 (test code = 788-0) [facility], NGY6423-21-17 11:58:00 Test Item Value Reference Range Interpretation Comments mean corpuscular hemoglobin 34.8 G/DL 31.5-35.7 concentration, RBC (test code = 786-4) [facility] hemoglobin, [id number] 11:58:00 Test Item Value Reference Range Interpretation Comments mean corpuscular hemoglobin, RBC 31.4 pg 26.6-33.0 (test code = 785-6) [facility]mean corpuscular volume, [id number] 11:58:00 Test Item Value Reference Range Interpretation Comments mean corpuscular volume, RBC (test code 90 fL 79-97 = 787-2) [facility] Johnstonhematocrit, uucij2318-37-51 11:58:00 Test Item Value Reference Range Interpretation Comments hematocrit, blood (test code = 4544-3) 47.7 % 37.5-51.0 [facility] Johnstonhemoglobin, tcafs1949-40-46 11:58:00 Test Item Value Reference Range Interpretation Comments hemoglobin, blood (test code = 16.6 g/dL 13.0-17.7 718-7) [facility] Johnstonerythrocyte (RBC) ayjuq4344-27-09 11:58:00 Test Item Value Reference Range Interpretation Comments erythrocyte (RBC) count (test 5.29 X10E6/UL 4.14-5.80 code = 789-8) [facility] Johnstonleukocyte count, bddzo3670-89-82 11:58:00 Test Item Value Reference Range Interpretation Comments leukocyte count, blood (test 7.1 X10E3/UL 3.4-10.8 code = 6690-2) [facility] JohnstonCD4/CD8 lbiyx7419-85-43 11:58:00 Test Item Value Reference Range Interpretation Comments CD4/CD8 ratio (test code 1.39 (unknown unit) 0.92-3.72 = 64524) [facility] pallid[facility], by particle agglutination 2017-06-16 09:37:00 Test Item Value Reference Range Interpretation Comments Treponema pallidum antibodies, by Positive Negative A particle agglutination (test code = 66427-4) [facility] Johnstonhemoglobin A1C, blood, as % of total smpwuzqgmz7003-54-44 09:37:00 Test Item Value Reference Range Interpretation Comments hemoglobin A1C, blood, as % of total 6.8 % 4.8-5.6 H hemoglobin (test code = 4548-4) [facility] JohnstonLDL cholesterol, ltzyx4354-01-26 09:37:00 Test Item Value Reference Range Interpretation Comments LDL cholesterol, serum (test code = 68 mg/dL 0-99 2088-1) [facility] JohnstonHDL cholesterol, [id number] 09:37:00 Test Item Value Reference Range Interpretation Comments HDL cholesterol, serum (test code = 25 mg/dL >39 L 5-9) [facility]stontriglyceride, serum, kenwavu2803-10-41 09:37:00 Test Item Value Reference Range Interpretation Comments triglyceride, serum, fasting (test 390 mg/dL 0-149 H code = 2571-8) [facility] Johnstoncholesterol, vrgmy4642-92-64 09:37:00 Test Item Value Reference Range Interpretation Comments cholesterol, serum (test code = 171 mg/dL 743-450 6138-3) [facility] JohnstonT-helper cells (CD4) as percent of blood lymphocytes 2017-06-16 09:37:00 Test Item Value Reference Range Interpretation Comments T-helper cells (CD4) as percent of 41.9 % 30.8-58.5 blood lymphocytes (test code = 8123-2) [facility] cells (CD4) [id number] 09:37:00 Test Item Value Reference Range Interpretation Comments T-helper cells (CD4) count (test code 880 /UL 359-1519 = 32106-7) [facility] Johnstonrapid plasma reagin antibody, [id number] 09:37:00 Test Item Value Reference Range Interpretation Comments rapid plasma reagin 1:4 See_Comment H [Automa stefany message] The antibody, serum (test system which generated code = 5291-0) this result t ransmitted reference range : NonRea<1:1. The reference range was not u sed to interpret this result as normal/abnormal . [facility]HIV-1RNA, serum, by PCR, [id number] 09:37:00 Test Item Value Reference Range Interpretation Comments HIV-1RNA, serum, by PCR, quantitative 40 /mL (test code = 08581) [facility] low density pjknhimgpgzp9850-25-97 09:37:00 Test Item Value Reference Range Interpretation Comments very low density lipoproteins (test 78 mg/dL 5-40 H code = 2091-7) [facility]onalanine aminotransferase (SGPT), [id number] 09:37:00 Test Item Value Reference Range Interpretation Comments alanine aminotransferase (SGPT), serum 77 1/L 0-44 H (test code = 1742-6) [facility] Johnstonaspartate aminotransferase (SGOT), rquty2012-61-50 09:37:00 Test Item Value Reference Range Interpretation Comments aspartate aminotransferase (SGOT), 46 1/L 0-40 H serum (test code = 1920-8) [facility] Johnstonalkaline phosphatase, whbjk1437-44-40 09:37:00 Test Item Value Reference Range Interpretation Comments alkaline phosphatase, serum (test code 89 1/L 39-117 = 1783-0) [facility]bilirubin, serum, [id number] 09:37:00 Test Item Value Reference Range Interpretation Comments bilirubin, serum, total (test code 0.4 mg/dL 0.0-1.2 = 1975-2) [facility] Healthalbumin/globulin ratio, [id number] 09:37:00 Test Item Value Reference Range Interpretation Comments albumin/globulin ratio, 1.7 (unknown unit) 1.2-2.2 serum (test code = 1759-0) [facility] Healthglobulin, [id number] 09:37:00 Test Item Value Reference Range Interpretation Comments globulin, serum (test code 2.6 (unknown unit) 1.5-4.5 = 2336-6) [facility] Healthalbumin, qfdwp1086-93-01 09:37:00 Test Item Value Reference Range Interpretation Comments albumin, serum (test code = 1751-7) 4.4 g/dL 3.5-5.5 [facility] Healthprotein, total, [id number] 09:37:00 Test Item Value Reference Range Interpretation Comments protein, total, serum (test code = 7.0 g/dL 6.0-8.5 2885-2) [facility] Johnstoncalcium, kbtjv7411-93-87 09:37:00 Test Item Value Reference Range Interpretation Comments calcium, serum (test code = 2000-8) 9.3 mg/dL 8.7-10.2 [facility] Johnstoncarbon dioxide, venous zookd2110-57-04 09:37:00 Test Item Value Reference Range Interpretation Comments carbon dioxide, venous blood (test 25 mmol/L 18-29 code = 2027-1) [facility] Healthchloride, [id number] 09:37:00 Test Item Value Reference Range Interpretation Comments chloride, serum (test code = 102 mmol/L 96-106 5-0) [facility] Healthpotassium, gdbgl8724-27-91 09:37:00 Test Item Value Reference Range Interpretation Comments potassium, serum (test code = 4.6 mmol/L 3.5-5.2 2823-3) [facility] Johnstonsodium, xpnlx1675-06-10 09:37:00 Test Item Value Reference Range Interpretation Comments sodium, serum (test code = 2951-2) 142 mmol/L 134-144 [facility] Johnstonurea nitrogen/creatinine ratio, uxkxl8765-36-49 09:37:00 Test Item Value Reference Range Interpretation Comments urea nitrogen/creatinine 9 (unknown unit) 9-20 ratio, serum (test code = 3097-3) [facility] HealtheGFR if Liwcaknj0161-75-96 09:37:00 Test Item Value Reference Range Interpretation Comments eGFR if 127 mL/min/{1.73 m2} >59 (test code = 04159-9) [facility] JohnstonEstimated Glomerular Filtration Rate (calc)2017-06-16 09:37:00 Test Item Value Reference Range Interpretation Comments Estimated Glomerular 110 mL/min/{1.73 m2} >59 Filtration Rate (calc) (test code = 27800-2) [facility] Johnstoncreatinine, clurh0724-61-67 09:37:00 Test Item Value Reference Range Interpretation Comments creatinine, serum (test code = 0.86 mg/dL 0.76-1.27 2160-0) [facility] Johnstonurea nitrogen, [id number] 09:37:00 Test Item Value Reference Range Interpretation Comments urea nitrogen, blood (test code = 8 mg/dL 6-20 3094-0) [facility] Johnstonblood glucose, aundxz2016-71-05 09:37:00 Test Item Value Reference Range Interpretation Comments blood glucose, random (test code = 236 mg/dL 65-99 H 2339-0) [facility] Johnstonimmature granulocytes, percentage of total cells, blood 2017-06-16 09:37:00 Test Item Value Reference Range Interpretation Comments immature granulocytes, percentage of 0 % total cells, blood (test code = 50620-4) [facility] Johnstonbasophil count, cflffewd5116-44-45 09:37:00 Test Item Value Reference Range Interpretation Comments basophil count, absolute (test 0.0 x10E3/uL 0.0-0.2 code = 85366-4) [facility] HealthEosinophil Absolute Kbuxy0966-05-68 09:37:00 Test Item Value Reference Range Interpretation Comments Eosinophil Absolute Count (test 0.2 X10E3/UL 0.0-0.4 code = 71122-8) [facility] Healthmonocyte count, blood, droirtnsm4326-95-75 09:37:00 Test Item Value Reference Range Interpretation Comments monocyte count, blood, automated 0.3 X10E3/UL 0.1-0.9 (test code = 742-7) [facility] Johnstonlymphocyte count, blood, vmgqgtiru0205-46-48 09:37:00 Test Item Value Reference Range Interpretation Comments lymphocyte count, blood, 2.1 X10E3/UL 0.7-3.1 automated (test code = 731-0) [facility] JohnstonAbsolute Iszjnzninem7341-16-35 09:37:00 Test Item Value Reference Range Interpretation Comments Absolute Neutrophils (test code 5.2 X10E3/UL 1.4-7.0 = 12758-7) [facility] Johnstonbasophils as percent of blood mwmegweryg1613-63-59 09:37:00 Test Item Value Reference Range Interpretation Comments basophils as percent of blood 1 % leukocytes (test code = 707-0) [facility] Healtheosinophils as percent of blood avdokcpdri9521-73-22 09:37:00 Test Item Value Reference Range Interpretation Comments eosinophils as percent of blood 2 % leukocytes (test code = 713-8) [facility] Healthmonocytes as percent of blood juvkscjujg9365-12-31 09:37:00 Test Item Value Reference Range Interpretation Comments monocytes as percent of blood 4 % leukocytes (test code = 5905-5) [facility] Johnstonlymphocytes as percent of blood isbbtzlznx0204-65-28 09:37:00 Test Item Value Reference Range Interpretation Comments lymphocytes as percent of blood 26 % leukocytes (test code = 736-9) [facility] Healthneutrophils as percent of blood kkuopaanue2261-31-13 09:37:00 Test Item Value Reference Range Interpretation Comments neutrophils as percent of blood 67 % leukocytes (test code = 770-8) [facility] Johnstonplatelet dindk9413-30-15 09:37:00 Test Item Value Reference Range Interpretation Comments platelet count (test code = 239 X10E3/UL 150-379 777-3) [facility] Johnstonred blood cell distribution nqtrl9119-76-84 09:37:00 Test Item Value Reference Range Interpretation Comments red blood cell distribution width 13.0 % 12.3-15.4 (test code = 788-0) [facility] corpuscular hemoglobin concentration, [id number] 09:37:00 Test Item Value Reference Range Interpretation Comments mean corpuscular hemoglobin 35.0 G/DL 31.5-35.7 concentration, RBC (test code = 786-4) [facility] corpuscular hemoglobin, [id number] 09:37:00 Test Item Value Reference Range Interpretation Comments mean corpuscular hemoglobin, RBC 31.1 pg 26.6-33.0 (test code = 785-6) [facility], [id number] 09:37:00 Test Item Value Reference Range Interpretation Comments mean corpuscular volume, RBC (test code 89 fL 79-97 = 787-2) [facility]hematocrit, snefi3410-97-24 09:37:00 Test Item Value Reference Range Interpretation Comments hematocrit, blood (test code = 4544-3) 46.9 % 37.5-51.0 [facility] Johnstonhemoglobin, lnnqp9699-36-07 09:37:00 Test Item Value Reference Range Interpretation Comments hemoglobin, blood (test code = 16.4 g/dL 12.6-17.7 718-7) [facility] Johnstonerythrocyte (RBC) ouowt5758-98-40 09:37:00 Test Item Value Reference Range Interpretation Comments erythrocyte (RBC) count (test 5.27 X10E6/UL 4.14-5.80 code = 789-8) [facility] Johnstonleukocyte count, [id number] 09:37:00 Test Item Value Reference Range Interpretation Comments leukocyte count, blood (test 7.8 X10E3/UL 3.4-10.8 code = 6690-2) [facility] JohnstonCD4/CD8 vqejv7294-87-26 09:37:00 Test Item Value Reference Range Interpretation Comments CD4/CD8 ratio (test code 1.20 (unknown unit) 0.92-3.72 = 04020) [facility] JohnstonT-suppressor cells (CD8) as percent of blood lymphocytes 2017-06-16 09:37:00 Test Item Value Reference Range Interpretation Comments T-suppressor cells (CD8) as percent of 34.8 % 12.0-35.5 blood lymphocytes (test code = 3517) [facility] Johnstonabsolute [id number] 09:37:00 Test Item Value Reference Range Interpretation Comments absolute CD8 (test code = 731 (unknown unit) 525-701 29967) [facility] JohnstonNeisseria gonorrhoeae DNA zruyk8365-15-77 09:48:00 Test Item Value Reference Range Interpretation Comments Neisseria gonorrhoeae DNA probe Negative Negative (test code = 04778-2) [facility] Johnstonchlamydia DNA rtzdg1676-63-25 09:48:00 Test Item Value Reference Range Interpretation Comments chlamydia DNA probe (test code = Negative Negative 85987-1) [facility] JohnstonTreponema pallidum antibodies, by particle agglutination 2017-01-18 09:31:00 Test Item Value Reference Range Interpretation Comments Treponema pallidum antibodies, by Positive Negative A particle agglutination (test code = 69027-0) [facility] JohnstonLDL cholesterol, ycxzl1644-13-28 09:31:00 Test Item Value Reference Range Interpretation Comments LDL cholesterol, serum (test TRIGHI mg/dL 0-99 code = 2089-1) [facility] JohnstonHDL cholesterol, sveia4226-85-43 09:31:00 Test Item Value Reference Range Interpretation Comments HDL cholesterol, serum (test code = 17 mg/dL >39 L 5-9) [facility] Johnstontriglyceride, serum, zjvjhpn5886-41-37 09:31:00 Test Item Value Reference Range Interpretation Comments triglyceride, serum, fasting (test 559 mg/dL 0-149 HH code = 2571-8) [facility] Johnstoncholesterol, [id number] 09:31:00 Test Item Value Reference Range Interpretation Comments cholesterol, serum (test code = 174 mg/dL 347-950 9131-3) [facility] JohnstonT-helper cells (CD4) as percent of blood lymphocytes 2017-01-18 09:31:00 Test Item Value Reference Range Interpretation Comments T-helper cells (CD4) as percent of 45.9 % 30.8-58.5 blood lymphocytes (test code = 8123-2) [facility] JohnstonT-helper cells (CD4) hgcpk3544-98-32 09:31:00 Test Item Value Reference Range Interpretation Comments T-helper cells (CD4) count (test code 734 /UL 359-1519 = 41846-6) [facility] Johnstonrapid plasma reagin antibody, vqafx5240-40-75 09:31:00 Test Item Value Reference Range Interpretation Comments rapid plasma reagin 1:4 See_Comment H [[employer]oma stefany message] The antibody, serum (test system which generated code = 5291-0) this result t ransmitted reference range : NonRea<1:1. The reference range was not u sed to interpret this result as normal/abnormal . [facility]HIV-1RNA, serum, by PCR, brjclmhnrqbu1379-83-53 09:31:00 Test Item Value Reference Range Interpretation Comments HIV-1RNA, serum, by PCR, <20 copies/mL quantitative (test code = 25260) [facility] JohnstonHepatitis B virus DNA, by Polymerase Chain Reaction 2017-01-18 09:31:00 Test Item Value Reference Range Interpretation Comments Hepatitis B virus DNA, by Polymerase <10 Chain Reaction (test code = 38347) [facility] low density rlopppfqsdec6655-02-33 09:31:00 Test Item Value Reference Range Interpretation Comments very low density lipoproteins VLDLCH mg/dL 5-40 (test code = 2091-7) [facility] Johnstonalanine aminotransferase (SGPT), ahfze8834-29-64 09:31:00 Test Item Value Reference Range Interpretation Comments alanine aminotransferase (SGPT), serum 90 1/L 0-44 H (test code = 1742-6) [facility] Johnstonaspartate aminotransferase (SGOT), nlasm8278-91-10 09:31:00 Test Item Value Reference Range Interpretation Comments aspartate aminotransferase (SGOT), 66 1/L 0-40 H serum (test code = 1920-8) [facility] Healthalkaline phosphatase, lricf8391-02-33 09:31:00 Test Item Value Reference Range Interpretation Comments alkaline phosphatase, serum (test 104 1/L 39-117 code = 1783-0) [facility] Healthbilirubin, serum, [id number] 09:31:00 Test Item Value Reference Range Interpretation Comments bilirubin, serum, total (test code 0.4 mg/dL 0.0-1.2 = 1975-2) [facility] Healthalbumin/globulin ratio, gxrth8150-01-29 09:31:00 Test Item Value Reference Range Interpretation Comments albumin/globulin ratio, 1.3 (unknown unit) 1.2-2.2 serum (test code = 1759-0) [facility] Healthglobulin, jhhgt7314-23-52 09:31:00 Test Item Value Reference Range Interpretation Comments globulin, serum (test code 3.0 (unknown unit) 1.5-4.5 = 2336-6) [facility] Healthalbumin, yxfum5545-05-06 09:31:00 Test Item Value Reference Range Interpretation Comments albumin, serum (test code = 1751-7) 4.0 g/dL 3.5-5.5 [facility] Healthprotein, total, riuty2872-56-59 09:31:00 Test Item Value Reference Range Interpretation Comments protein, total, serum (test code = 7.0 g/dL 6.0-8.5 2885-2) [facility] Johnstoncalcium, bgawj8555-70-72 09:31:00 Test Item Value Reference Range Interpretation Comments calcium, serum (test code = 1999-8) 9.0 mg/dL 8.7-10.2 [facility] Johnstoncarbon dioxide, venous cxwyt8410-75-38 09:31:00 Test Item Value Reference Range Interpretation Comments carbon dioxide, venous blood (test 22 mmol/L 18-29 code = 7-1) [facility] Johnstonchloride, tzvlq0656-38-04 09:31:00 Test Item Value Reference Range Interpretation Comments chloride, serum (test code = 100 mmol/L 96-106 5-0) [facility] Johnstonpotassium, hwsqu0070-42-99 09:31:00 Test Item Value Reference Range Interpretation Comments potassium, serum (test code = 4.3 mmol/L 3.5-5.2 2823-3) [facility] Johnstonsodium, yiigc5045-36-85 09:31:00 Test Item Value Reference Range Interpretation Comments sodium, serum (test code = 2951-2) 139 mmol/L 134-144 [facility] Johnstonurea nitrogen/creatinine ratio, gcewi3102-14-58 09:31:00 Test Item Value Reference Range Interpretation Comments urea nitrogen/creatinine 8 (unknown unit) 8-19 ratio, serum (test code = 3097-3) [facility] JohnstoneGFR if Wnpcfydo4348-92-03 09:31:00 Test Item Value Reference Range Interpretation Comments eGFR if 107 mL/min/{1.73 m2} >59 (test code = 20082-9) [facility] JohnstonEstimated Glomerular Filtration Rate (calc)2017-01-18 09:31:00 Test Item Value Reference Range Interpretation Comments Estimated Glomerular 93 mL/min/{1.73 m2} >59 Filtration Rate (calc) (test code = 15844-6) [facility] Johnstoncreatinine, jkjkv3668-85-08 09:31:00 Test Item Value Reference Range Interpretation Comments creatinine, serum (test code = 1.02 mg/dL 0.76-1.27 2160-0) [facility] Johnstonurea nitrogen, rkoro1804-87-52 09:31:00 Test Item Value Reference Range Interpretation Comments urea nitrogen, blood (test code = 8 mg/dL 6-20 3094-0) [facility] Johnstonblood glucose, kdgtyz8430-11-73 09:31:00 Test Item Value Reference Range Interpretation Comments blood glucose, random (test code = 313 mg/dL 65-99 H 2339-0) [facility] Johnstonimmature granulocytes, percentage of total cells, blood 2017-01-18 09:31:00 Test Item Value Reference Range Interpretation Comments immature granulocytes, percentage of 0 % total cells, blood (test code = 71929-8) [facility] Johnstonbasophil count, ikutkiow3339-44-18 09:31:00 Test Item Value Reference Range Interpretation Comments basophil count, absolute (test 0.0 x10E3/uL 0.0-0.2 code = 82625-2) [facility] JohnstonEosinophil Absolute Eyesl5093-56-65 09:31:00 Test Item Value Reference Range Interpretation Comments Eosinophil Absolute Count (test 0.3 X10E3/UL 0.0-0.4 code = 53421-7) [facility] Healthmonocyte count, blood, swezrxjuq3640-36-65 09:31:00 Test Item Value Reference Range Interpretation Comments monocyte count, blood, automated 0.4 X10E3/UL 0.1-0.9 (test code = 742-7) [facility] Johnstonlymphocyte count, blood, zluvuqxrg8410-71-04 09:31:00 Test Item Value Reference Range Interpretation Comments lymphocyte count, blood, 1.6 X10E3/UL 0.7-3.1 automated (test code = 731-0) [facility] JohnstonAbsolute Sswpavvndgv9457-81-36 09:31:00 Test Item Value Reference Range Interpretation Comments Absolute Neutrophils (test code 5.9 X10E3/UL 1.4-7.0 = 48064-3) [facility] Johnstonbasophils as percent of blood fujldxbmwe3864-61-59 09:31:00 Test Item Value Reference Range Interpretation Comments basophils as percent of blood 0 % leukocytes (test code = 707-0) [facility] Johnstoneosinophils as percent of blood xqzeobftbh3615-70-10 09:31:00 Test Item Value Reference Range Interpretation Comments eosinophils as percent of blood 3 % leukocytes (test code = 713-8) [facility] Healthmonocytes as percent of blood oalkijhftk3985-85-47 09:31:00 Test Item Value Reference Range Interpretation Comments monocytes as percent of blood 5 % leukocytes (test code = 5905-5) [facility] Johnstonlymphocytes as percent of blood nljxbjojcs8128-94-32 09:31:00 Test Item Value Reference Range Interpretation Comments lymphocytes as percent of blood 19 % leukocytes (test code = 736-9) [facility] Johnstonneutrophils as percent of blood yrcikfwymh5421-18-04 09:31:00 Test Item Value Reference Range Interpretation Comments neutrophils as percent of blood 73 % leukocytes (test code = 770-8) [facility] Johnstonplatelet flpee7184-47-84 09:31:00 Test Item Value Reference Range Interpretation Comments platelet count (test code = 192 X10E3/UL 150-379 777-3) [facility] Johnstonred blood cell distribution mlcqm1341-55-95 09:31:00 Test Item Value Reference Range Interpretation Comments red blood cell distribution width 13.7 % 12.3-15.4 (test code = 788-0) [facility] corpuscular hemoglobin concentration, [id number] 09:31:00 Test Item Value Reference Range Interpretation Comments mean corpuscular hemoglobin 34.7 G/DL 31.5-35.7 concentration, RBC (test code = 786-4) [facility] corpuscular hemoglobin, HBU1204-74-85 09:31:00 Test Item Value Reference Range Interpretation Comments mean corpuscular hemoglobin, RBC 32.0 pg 26.6-33.0 (test code = 785-6) [facility] corpuscular volume, XKQ2271-45-03 09:31:00 Test Item Value Reference Range Interpretation Comments mean corpuscular volume, RBC (test code 92 fL 79-97 = 787-2) [facility] Johnstonhematocrit, xeevm7491-21-71 09:31:00 Test Item Value Reference Range Interpretation Comments hematocrit, blood (test code = 4544-3) 48.1 % 37.5-51.0 [facility] Johnstonhemoglobin, xdeyq0398-27-00 09:31:00 Test Item Value Reference Range Interpretation Comments hemoglobin, blood (test code = 16.7 g/dL 12.6-17.7 718-7) [facility] Johnstonerythrocyte (RBC) ljcsw7083-16-77 09:31:00 Test Item Value Reference Range Interpretation Comments erythrocyte (RBC) count (test 5.22 X10E6/UL 4.14-5.80 code = 789-8) [facility] Johnstonleukocyte count, weodt5151-62-74 09:31:00 Test Item Value Reference Range Interpretation Comments leukocyte count, blood (test 8.3 X10E3/UL 3.4-10.8 code = 6690-2) [facility] JohnstonCD4/CD8 rlvtq9692-35-25 09:31:00 Test Item Value Reference Range Interpretation Comments CD4/CD8 ratio (test code 1.43 (unknown unit) 0.92-3.72 = 81581) [facility] JohnstonT-suppressor cells (CD8) as percent of blood lymphocytes 2017-01-18 09:31:00 Test Item Value Reference Range Interpretation Comments T-suppressor cells (CD8) as percent of 32.0 % 12.0-35.5 blood lymphocytes (test code = 3517) [facility] Johnstonabsolute [id number] 09:31:00 Test Item Value Reference Range Interpretation Comments absolute CD8 (test code = 512 (unknown unit) 302.345.28193) [facility] JohnstonTreponema pallidum antibodies, by particle agglutination 2016-07-21 10:14:00 Test Item Value Reference Range Interpretation Comments Treponema pallidum antibodies, by Positive Negative A particle agglutination (test code = 59733-7) [facility] JohnstonLDL cholesterol, ziabg6592-52-17 10:14:00 Test Item Value Reference Range Interpretation Comments LDL cholesterol, serum (test TRIGHI mg/dL 0-99 code = 2089-1) [facility] JohnstonHDL cholesterol, pihuk7365-50-25 10:14:00 Test Item Value Reference Range Interpretation Comments HDL cholesterol, serum (test code = 19 mg/dL >39 L 5-9) [facility] Johnstontriglyceride, serum, wbqvxba6277-11-80 10:14:00 Test Item Value Reference Range Interpretation Comments triglyceride, serum, fasting (test 452 mg/dL 0-149 H code = 2571-8) [facility] Johnstoncholesterol, rpskw6222-97-38 10:14:00 Test Item Value Reference Range Interpretation Comments cholesterol, serum (test code = 144 mg/dL 097-974 0293-3) [facility] JohnstonT-helper cells (CD4) as percent of blood lymphocytes 2016-07-21 10:14:00 Test Item Value Reference Range Interpretation Comments T-helper cells (CD4) as percent of 43.2 % 30.8-58.5 blood lymphocytes (test code = 8123-2) [facility] JohnstonT-helper cells (CD4) kxkgu7730-98-65 10:14:00 Test Item Value Reference Range Interpretation Comments T-helper cells (CD4) count (test code 691 /UL 359-1519 = 40500-8) [facility] JohnstonQuantiferon Gold TB blood test for tuberculosis screening 2016-07-21 10:14:00 Test Item Value Reference Range Interpretation Comments Quantiferon Gold TB blood test for Negative Negative tuberculosis screening (test code = 56717-9) [facility] Johnstonrapid plasma reagin antibody, tmhym3451-96-48 10:14:00 Test Item Value Reference Range Interpretation Comments rapid plasma reagin 1:2 See_Comment H [[employer] stefany message] The antibody, serum (test system which generated code = 5291-0) this result t ransmitted reference range : NonRea<1:1. The reference range was not u sed to interpret this result as normal/abnormal . [facility] JohnstonHIV-1RNA, serum, by PCR, urexotlmddwg3250-16-63 10:14:00 Test Item Value Reference Range Interpretation Comments HIV-1RNA, serum, by PCR, <20 copies/mL quantitative (test code = 60736) [facility] low density gotvzsljxtfu5905-00-76 10:14:00 Test Item Value Reference Range Interpretation Comments very low density lipoproteins VLDLCH mg/dL 5-40 (test code = 2091-7) [facility]), [id number] 10:14:00 Test Item Value Reference Range Interpretation Comments alanine aminotransferase (SGPT), 128 1/L 0-44 H serum (test code = 1742-6) [facility] Johnstonaspartate aminotransferase (SGOT), [id number] 10:14:00 Test Item Value Reference Range Interpretation Comments aspartate aminotransferase (SGOT), 65 1/L 0-40 H serum (test code = 1920-8) [facility] Johnstonalk[facility] phosphatase, [id number] 10:14:00 Test Item Value Reference Range Interpretation Comments alkaline phosphatase, serum (test 115 1/L 39-117 code = 1783-0) [facility], serum, [id number] 10:14:00 Test Item Value Reference Range Interpretation Comments bilirubin, serum, total (test code 0.6 mg/dL 0.0-1.2 = 1975-2) [facility]onalbumin/globulin ratio, [id number] 10:14:00 Test Item Value Reference Range Interpretation Comments albumin/globulin ratio, 1.5 (unknown unit) 1.1-2.5 serum (test code = 1759-0) [facility]onglobulin, [id number] 10:14:00 Test Item Value Reference Range Interpretation Comments globulin, serum (test code 2.8 (unknown unit) 1.5-4.5 = 2336-6) [facility] Healthalbumin, [id number] 10:14:00 Test Item Value Reference Range Interpretation Comments albumin, serum (test code = 1751-7) 4.2 g/dL 3.5-5.5 [facility] Healthprotein, total, [id number] 10:14:00 Test Item Value Reference Range Interpretation Comments protein, total, serum (test code = 7.0 g/dL 6.0-8.5 2885-2) [facility]calcium, [id number] 10:14:00 Test Item Value Reference Range Interpretation Comments calcium, serum (test code = 2000-8) 8.8 mg/dL 8.7-10.2 [facility] dioxide, venous [id number] 10:14:00 Test Item Value Reference Range Interpretation Comments carbon dioxide, venous blood (test 18 mmol/L 18-29 code = 7-1) [facility] Johnstonchloride, [id number] 10:14:00 Test Item Value Reference Range Interpretation Comments chloride, serum (test code = 101 mmol/L 97-108 5-0) [facility]potassium, [id number] 10:14:00 Test Item Value Reference Range Interpretation Comments potassium, serum (test code = 4.0 mmol/L 3.5-5.2 2823-3) [facility]onsodium, [id number] 10:14:00 Test Item Value Reference Range Interpretation Comments sodium, serum (test code = 2951-2) 139 mmol/L 134-144 [facility] Johnstonurea nitrogen/creatinine ratio, [id number] 10:14:00 Test Item Value Reference Range Interpretation Comments urea nitrogen/creatinine 10 (unknown unit) 8-19 ratio, serum (test code = 3097-3) [facility] HealtheGFR if [id number] 10:14:00 Test Item Value Reference Range Interpretation Comments eGFR if 121 mL/min/{1.73 m2} >59 (test code = 53308-5) [facility] JohnstonEstimated Glomerular Filtration Rate (calc)2016-07-21 10:14:00 Test Item Value Reference Range Interpretation Comments Estimated Glomerular 105 mL/min/{1.73 m2} >59 Filtration Rate (calc) (test code = 44657-9) [facility] Johnstoncreatinine, [id number] 10:14:00 Test Item Value Reference Range Interpretation Comments creatinine, serum (test code = 0.93 mg/dL 0.76-1.27 2160-0) [facility] nitrogen, [id number] 10:14:00 Test Item Value Reference Range Interpretation Comments urea nitrogen, blood (test code = 9 mg/dL 6-20 3094-0) [facility] Johnstonblood glucose, [id number] 10:14:00 Test Item Value Reference Range Interpretation Comments blood glucose, random (test code = 362 mg/dL 65-99 H 2339-0) [facility] Johnstonimmature granulocytes, percentage of total cells, blood 2016-07-21 10:14:00 Test Item Value Reference Range Interpretation Comments immature granulocytes, percentage of 0 % total cells, blood (test code = 40178-4) [facility] Johnstonbasophil count, [id number] 10:14:00 Test Item Value Reference Range Interpretation Comments basophil count, absolute (test 0.0 x10E3/uL 0.0-0.2 code = 18947-0) [facility] JohnstonEosinophil Absolute [id number] 10:14:00 Test Item Value Reference Range Interpretation Comments Eosinophil Absolute Count (test 0.2 X10E3/UL 0.0-0.4 code = 17480-7) [facility] Johnstonmonocyte count, blood, [id number] 10:14:00 Test Item Value Reference Range Interpretation Comments monocyte count, blood, automated 0.3 X10E3/UL 0.1-0.9 (test code = 742-7) [facility] Johnstonlymphocyte count, blood, [id number] 10:14:00 Test Item Value Reference Range Interpretation Comments lymphocyte count, blood, 1.6 X10E3/UL 0.7-3.1 automated (test code = 731-0) [facility]Absolute Euwafdwfzsx7085-76-38 10:14:00 Test Item Value Reference Range Interpretation Comments Absolute Neutrophils (test code 3.7 X10E3/UL 1.4-7.0 = 62710-2) [facility] Johnstonbasophils as percent of blood [id number] 10:14:00 Test Item Value Reference Range Interpretation Comments basophils as percent of blood 0 % leukocytes (test code = 707-0) [facility]stoneosinophils as percent of blood quctqkxqxw4007-82-98 10:14:00 Test Item Value Reference Range Interpretation Comments eosinophils as percent of blood 3 % leukocytes (test code = 713-8) [facility] Healthmonocytes as percent of blood infkyvhmml4862-99-05 10:14:00 Test Item Value Reference Range Interpretation Comments monocytes as percent of blood 5 % leukocytes (test code = 5905-5) [facility] Johnstonlymphocytes as percent of blood yfxgocliqy8148-10-76 10:14:00 Test Item Value Reference Range Interpretation Comments lymphocytes as percent of blood 27 % leukocytes (test code = 736-9) [facility] Johnstonneutrophils as percent of blood qkuejsypha4134-61-67 10:14:00 Test Item Value Reference Range Interpretation Comments neutrophils as percent of blood 65 % leukocytes (test code = 770-8) [facility] Johnstonplatelet [id number] 10:14:00 Test Item Value Reference Range Interpretation Comments platelet count (test code = 165 X10E3/UL 150-379 777-3) [facility] Johnstonred blood cell distribution siuzv8632-95-29 10:14:00 Test Item Value Reference Range Interpretation Comments red blood cell distribution width 13.6 % 12.3-15.4 (test code = 788-0) [facility] corpuscular hemoglobin concentration, [id number] 10:14:00 Test Item Value Reference Range Interpretation Comments mean corpuscular hemoglobin 34.6 G/DL 31.5-35.7 concentration, RBC (test code = 786-4) [facility] corpuscular hemoglobin, [id number] 10:14:00 Test Item Value Reference Range Interpretation Comments mean corpuscular hemoglobin, RBC 31.0 pg 26.6-33.0 (test code = 785-6) [facility] corpuscular volume, [id number] 10:14:00 Test Item Value Reference Range Interpretation Comments mean corpuscular volume, RBC (test code 90 fL 79-97 = 787-2) [facility]hematocrit, [id number] 10:14:00 Test Item Value Reference Range Interpretation Comments hematocrit, blood (test code = 4544-3) 45.6 % 37.5-51.0 [facility] Johnstonhemoglobin, [id number] 10:14:00 Test Item Value Reference Range Interpretation Comments hemoglobin, blood (test code = 15.8 g/dL 12.6-17.7 718-7) [facility] Johnstonerythrocyte (RBC) [id number] 10:14:00 Test Item Value Reference Range Interpretation Comments erythrocyte (RBC) count (test 5.09 X10E6/UL 4.14-5.80 code = 789-8) [facility]leukocyte count, [id number] 10:14:00 Test Item Value Reference Range Interpretation Comments leukocyte count, blood (test 5.8 X10E3/UL 3.4-10.8 code = 6690-2) [facility] JohnstonCD4/CD8 [id number] 10:14:00 Test Item Value Reference Range Interpretation Comments CD4/CD8 ratio (test code 1.39 (unknown unit) 0.92-3.72 = 22454) [facility] JohnstonT-suppressor cells (CD8) as percent of blood lymphocytes 2016-07-21 10:14:00 Test Item Value Reference Range Interpretation Comments T-suppressor cells (CD8) as percent of 31.0 % 12.0-35.5 blood lymphocytes (test code = 3517) [facility]absolute [id number] 10:14:00 Test Item Value Reference Range Interpretation Comments absolute CD8 (test code = 496 (unknown unit) [phone]) [facility] Johnstonhepatitis A antibody, [id number] 12:15:41 Test Item Value Reference Range Interpretation Comments hepatitis A antibody, total (test Reactive code = 75) [facility] Johnstonhepatitis B surface [id number] 12:14:34 Test Item Value Reference Range Interpretation Comments hepatitis B surface antibody Non-reactive (test code = 78) [facility] JohnstonT-helper cells (CD4) as percent of blood lymphocytes 2016-04-15 12:13:24 Test Item Value Reference Range Interpretation Comments T-helper cells (CD4) as percent of 42 % blood lymphocytes (test code = 8123-2) [facility] JohnstonHIV-1RNA, serum, by PCR, loqkuleqqzgf2433-22-00 12:13:09 Test Item Value Reference Range Interpretation Comments HIV-1RNA, serum, by PCR, quantitative <20 (test code = 57327) [facility] JohnstonT-helper cells (CD4) [id number] 12:12:46 Test Item Value Reference Range Interpretation Comments T-helper cells (CD4) count (test code 677 uL = 90010-5) [facility]stontoxoplasma gondii antibody, [id number] 12:11:51 Test Item Value Reference Range Interpretation Comments toxoplasma gondii antibody, IgG (test <3 code = 2430) [facility] Johnstonrapid plasma reagin antibody, [id number] 12:11:28 Test Item Value Reference Range Interpretation Comments rapid plasma reagin antibody, serum 1:2 (test code = 5291-0) [facility], PCR, inzvrscjronc8406-46-30 12:10:46 Test Item Value Reference Range Interpretation Comments Hepatitis C virus (HCV) RNA, Not-detected PCR, quantitative (test code = 37225) [facility], [id number] 12:10:17 Test Item Value Reference Range Interpretation Comments hepatitis C antibody, serum Non-reactive (test code = 5199-5) [facility]he[facility] B surface [id number] 12:09:48 Test Item Value Reference Range Interpretation Comments hepatitis B surface antigen (test reactive code = 79) [facility] Johnstonprotein, total, [id number] 12:08:51 Test Item Value Reference Range Interpretation Comments protein, total, serum (test code = 7.6 g/dL 2885-2) [facility] Healthalbumin, [id number] 12:08:51 Test Item Value Reference Range Interpretation Comments albumin, serum (test code = 1751-7) 4.0 g/dL [facility]bilirubin, serum, [id number] 12:08:50 Test Item Value Reference Range Interpretation Comments bilirubin, serum, total (test code 0.5 mg/dL = 1975-2) [facility]onalanine aminotransferase (SGPT), [id number] 12:08:50 Test Item Value Reference Range Interpretation Comments alanine aminotransferase (SGPT), 103 1/L serum (test code = 1742-6) [facility] Johnstonaspartate aminotransferase (SGOT), [id number] 12:08:50 Test Item Value Reference Range Interpretation Comments aspartate aminotransferase (SGOT), 54 1/L serum (test code = 1920-8) [facility] Johnstonerythrocyte (RBC) [id number] 12:07:48 Test Item Value Reference Range Interpretation Comments erythrocyte (RBC) count (test 5.26 10*6/mm3 code = 789-8) [facility] Healthplatelet [id number] 12:07:47 Test Item Value Reference Range Interpretation Comments platelet count (test code = 228 10*3/mm3 777-3) [facility]hematocrit, [id number] 12:07:47 Test Item Value Reference Range Interpretation Comments hematocrit, blood (test code = 4544-3) 46.8 % [facility] Johnstonhemoglobin, [id number] 12:07:46 Test Item Value Reference Range Interpretation Comments hemoglobin, blood (test code = 16.5 g/dL 718-7) [facility]leukocyte count, [id number] 12:07:46 Test Item Value Reference Range Interpretation Comments leukocyte count, blood (test 0.74 10*3/mm3 code = 6690-2) [facility]ontriglyceride, serum, [id number] 12:06:54 Test Item Value Reference Range Interpretation Comments triglyceride, serum, fasting (test 330 mg/dL code = 2571-8) [facility] JohnstonLDL cholesterol, [id number] 12:06:54 Test Item Value Reference Range Interpretation Comments LDL cholesterol, serum (test code = 88 mg/dL 2088-11) [facility] JohnstonHDL cholesterol, [id number] 12:06:54 Test Item Value Reference Range Interpretation Comments HDL cholesterol, serum (test code = 23 mg/dL 2085-07) [facility] Johnstoncholesterol, [id number] 12:06:53 Test Item Value Reference Range Interpretation Comments cholesterol, serum (test code = 153 mg/dL 2093-3) [facility] Johnstoncreatinine, [id number] 12:06:25 Test Item Value Reference Range Interpretation Comments creatinine, serum (test code = 0.9 mg/dL 2160-0) [facility] Johnstonurea nitrogen, [id number] 12:06:25 Test Item Value Reference Range Interpretation Comments urea nitrogen, blood (test code = 10 mg/dL 3094-0) [facility] Johnstonpotassium, ewgup1975-02-29 12:06:25 Test Item Value Reference Range Interpretation Comments potassium, serum (test code = 4.1 mmol/L 2823-3) [facility]stonsodium, [id number] 12:06:24 Test Item Value Reference Range Interpretation Comments sodium, serum (test code = 2951-2) 142 mmol/L [facility] JohnstonT-helper cells (CD4) [id number] 15:52:58 Test Item Value Reference Range Interpretation Comments T-helper cells (CD4) count (test code 783 uL = 87632-0) [facility]HIV-1RNA, serum, by PCR, [id number] 15:52:58 Test Item Value Reference Range Interpretation Comments HIV-1RNA, serum, by PCR, quantitative 75 /mL (test code = 98286) [facility]
[2022-11-14] MEDS ORDERED: PANTOPRAZOLE 40 MG INJ ONE (14:43)
[2022-11-14] MEDS ORDERED: ONDANSETRON 4 MG/2 ML VIAL ONE (14:43)
[2022-11-14] MEDS ORDERED: NA CHLORIDE 0.9% 1,000 ML ONE (14:43)
[2022-11-14 15:11] LABS: Absolute Lymphocytes (CBC) 1.5 K/uL (0.7-4.9); Hematocrit 47.8 % (39.6-49.0); Lymphocytes % 21.9 % (15.3-44.8); MCV 90.2 fL (80-100); MPV 8.4 fL (7.6-11.3)
[2022-11-14 15:32] LABS: Bilirubin Total 0.4 mg/dL (0.2-1.0); Potassium 3.8 mmol/L (3.5-5.1); Protein, Total 7.7 g/dL (6.4-8.2)
--- NOTE | 2022-11-14 15:59 | RAD REPORT ---
EXAM DESCRIPTION: CTAbdomen Pelvis W Contrast - 11/14/2022 3:45 pm CLINICAL HISTORY: Abdominal pain. Abdominal pain, acute, nonlocalized COMPARISON: Abdomen Pelvis W Contrast dated 06/08/2021; Abdomen Pelvis W Contrast dated 04/23/2019 TECHNIQUE: Biphasic CT imaging of the abdomen and pelvis was performed with 100 ml non-ionic IV cont rast. All CT scans are performed using dose optimization technique as appropriate and may include automated exposure control or mA/KV adjustment according to patient size. FINDINGS: The lung bases are clear. The liver, spleen, pancreas, adrenal glands and kidneys are within normal limits. No bowel obstruction, free air, free fluid or abscess. Nonvisualized appendix. Moderate stool retenti on throughout the colon. No evidence of significant lymphadenopathy. No suspicious bony findings. IMPRESSION: No acute intra-abdominal or pelvic finding.
--- NOTE | 2022-11-14 16:06 | EDPHYS ---
Physician Documentation [facility] Name: Jaleel Olivas Age: 42 yrs Sex: Male : 1980 Arrival Date: 11/14/2022 Time: 13:49 Bed 30 Private MD: ED Physician Matthieu Bowen HPI: 11/14 15:04 This 42 yrs old Male presents to ER via Ambulatory with complaints of Rectal en Bleeding, Abdominal Pain. 15:04 42-year-old male with HIV on retroviral's presents to ED with diffuse abdominal pain by en 2 days with loose maroon stools by 4 days. He reports night sweats without weight loss. No fevers or chills. No cough, shortness of breath, dyspnea exertion. Last CD4 count was 2 months ago. He does not recall the number but reports his viral load was undetectable at that time.. Historical: - Allergies: 14:08 Codeine (Hives); iw 14:08 Tape; iw - Home Meds: 14:08 HIV med [Active]; Metformin Oral [Active]; Lisinopril Oral [Active]; Trulicity iw subcutaneous [Active]; - PMHx: 14:08 Diabetes - NIDDM; HIV; Hypertension; iw - PSHx: 14:08 Appendectomy; iw - Immunization history:: Client reports receiving the 2nd dose of the Covid vaccine. - Social history:: Smoking status: Reported history of juuling and/or vaping. ROS: 15:04 Constitutional: + Night sweats. No fevers or chills en 15:04 Abdomen/GI: Positive for abdominal pain, nausea, diarrhea, With maroon stool. 15:04 Back: 15:04 All other systems are negative. Exam: 15:04 Constitutional: This is a well developed, well nourished patient who is awake, alert, en and in no acute distress. Head/Face: Normocephalic, atraumatic. ENT: Nares patent. No nasal discharge, no septal abnormalities noted. Tympanic membranes are normal and external auditory canals are clear. Oropharynx with no redness, swelling, or masses, exudates, or evidence of obstruction, uvula midline. Mucous membranes moist. Cardiovascular: Regular rate and rhythm with a normal S1 and S2. No gallops, murmurs, or rubs. Normal PMI, no JVD. No pulse deficits. Respiratory: Lungs have equal breath sounds bilaterally, clear to auscultation and percussion. No rales, rhonchi or wheezes noted. No increased work of breathing, no retractions or nasal flaring. Abdomen/GI: Soft, non-tender, with normal bowel sounds. No distension or tympany. No guarding or rebound. No evidence of tenderness throughout. Back: No spinal tenderness. No costovertebral tenderness. Full range of motion. Vital Signs: 14:10 BP 173 / 103; Pulse 88; Resp 18; Temp 98.6; Pulse Ox 100% on R/A; Weight 65.77 kg; iw Height 5 ft. 5 in. (165.10 cm); Pain 8/10; 15:15 BP 182 / 107; Pulse 87; Resp 18; Pulse Ox 100% on R/A; eh3 14:10 Body Mass Index 24.13 (65.77 kg, 165.10 cm) iw MDM: 14:04 Patient medically screened. en 15:04 Differential diagnosis: hemorrhoids, fissure, abscess, Colitis, ischemic colitis, lower en GI bleeding, diverticulitis, peptic ulcer disease. Data reviewed: vital signs, nurses notes, lab test result(s), radiologic studies, CT scan. 16:04 ED course: CT of the abdomen reviewed. No acute process identified. Given patient's en immunocompromise status, will DC home with Rudi and Idania for infectious colitis. He is followed by a clinic in [place] is instructed to follow-up with them for stool study should symptoms persist. Patient also with elevated blood pressure in the ED. He is asymptomatic. Instructed to keep a blood pressure log and follow-up with primary care doctor.. 11/14 14:31 Order name: CBC with Diff; Complete Time: 15:19 en 11/14 14:31 Order name: CMP; Complete Time: 15:45 en 11/14 14:31 Order name: Lipase; Complete Time: 15:45 en 11/14 14:31 Order name: CT Abd/Pelvis - IV Contrast Only; Complete Time: 16:04 en 11/14 14:31 Order name: IV Saline Lock; Complete Time: 15:01 en 11/14 14:31 Order name: Labs collected and sent; Complete Time: 15:01 en Administered Medications: 14:50 Drug: NS 0.9% 1000 ml Route: IV; Rate: 1 bolus; Site: left antecubital; 3 16:17 Follow up: IV Status: Completed infusion; IV Intake: 1000ml 3 14:50 Drug: Zofran (Ondansetron) 4 mg Route: IVP; Site: left antecubital; 3 16:17 Follow up: Response: No adverse reaction 3 14:50 Drug: ProTONIX (pantoprazole) 40 mg Route: IVP; Site: left antecubital; 3 16:17 Follow up: Response: No adverse reaction 3 Disposition Summary: 11/14/22 16:05 Discharge Ordered Location: Home en Problem: new en Symptoms: are unchanged en Condition: Stable en Diagnosis - Diarrhea, unspecified en - Essential (primary) hypertension en Followup: en - With: Private Physician - When: 1 - 2 days - Reason: Recheck today's complaints Discharge Instructions: - Discharge Summary Sheet en - Hypertension, Adult, Ygaj-fh-Vuzx en - Diarrhea, Adult, Uilz-sr-Swis en Forms: - Medication Reconciliation Form en - Thank You Letter en - Antibiotic Education en - Prescription Opioid Use en Prescriptions: - Flagyl 500 mg Oral Tablet - take 1 tablet by ORAL route every 6 hours for 10 days; 40 tablet; Refills: 0, en Product Selection Permitted - Cipro 500 mg Oral Tablet - take 1 tablet by ORAL route every 12 hours for 7 days; 14 tablet; Refills: 0, en Product Selection Permitted Signatures: Dispatcher [employer] Marilu Montana RN RN Madai Morrow RN RN 3 Jaci Hyman PA PA en Corrections: (The following items were deleted from the chart) 16:07 16:04 ED course: CT of the abdomen reviewed. No acute process identified. Given en patient's immunocompromise status, will DC home with Cipro and Flagyl for infectious colitis. He is followed by a clinic in [place] is instructed to follow-up with them for stool study should symptoms persist.. en
--- NOTE | 2022-11-14 16:06 | ER ---
Nurse's Notes [facility] Name: Jaleel Olivas Age: 42 yrs Sex: Male : 1980 Arrival Date: 11/14/2022 Time: 13:49 Bed 30 Private MD: Diagnosis: Diarrhea, unspecified;Essential (primary) hypertension Presentation: 11/14 14:08 Chief complaint: Patient states: abd pain and rectal bleeding since yesterday. iw Coronavirus screen: At this time, the client does not indicate any symptoms associated with coronavirus-19. Ebola Screen: Patient negative for fever greater than or equal to 101.5 degrees Fahrenheit, and additional compatible Ebola Virus Disease symptoms Patient denies exposure to infectious person. Patient denies travel to an Ebola-affected area in the 21 days before illness onset. No symptoms or risks identified at this time. Initial Sepsis Screen: Does the patient meet any 2 criteria? No. Patient's initial sepsis screen is negative. Does the patient have a suspected source of infection? No. Patient's initial sepsis screen is negative. Risk Assessment: Do you want to hurt yourself or someone else? Patient reports no desire to harm self or others. Onset of symptoms was November 13, 2022. 14:08 Method Of Arrival: Ambulatory iw 14:08 Method Of Arrival: Ambulatory iw 14:08 Acuity: LARRY 3 iw Historical: - Allergies: 14:08 Codeine (Hives); iw 14:08 Tape; iw - Home Meds: 14:08 HIV med [Active]; Metformin Oral [Active]; Lisinopril Oral [Active]; Trulicity iw subcutaneous [Active]; - PMHx: 14:08 Diabetes - NIDDM; HIV; Hypertension; iw - PSHx: 14:08 Appendectomy; iw - Immunization history:: Client reports receiving the 2nd dose of the Covid vaccine. - Social history:: Smoking status: Reported history of juuling and/or vaping. Screenin:30 [facility] ED Fall Risk Assessment (Adult) History of falling in the last 3 months, eh3 including since admission No falls in past 3 months (0 pts) Confusion or Disorientation No (0 pts) Intoxicated or Sedated No (0 pts) Impaired Gait No (0 pts) Mobility Assist Device Used No (0 pt) Altered Elimination Yes (1 pt) Score/Fall Risk Level 0 - 2 = Low Risk. Abuse screen: Denies threats or abuse. Denies injuries from another. Nutritional screening: No deficits noted. Tuberculosis screening: No symptoms or risk factors identified. Assessment: 14:30 General: Appears in no apparent distress. comfortable, Behavior is calm, cooperative, eh3 appropriate for age. Pain: Denies pain. Neuro: Level of Consciousness is awake, alert, obeys commands, Oriented to person, place, time, situation. Cardiovascular: Capillary refill < 3 seconds Patient's skin is warm and dry. Respiratory: Airway is patent Respiratory effort is even, unlabored, Respiratory pattern is regular, symmetrical. GI: Abdomen is round non-distended, Bowel sounds present X 4 quads. Abd is soft and non tender Reports rectal bleeding. : No signs and/or symptoms were reported regarding the genitourinary system. EENT: No signs and/or symptoms were reported regarding the EENT system. Derm: No signs and/or symptoms reported regarding the dermatologic system. Musculoskeletal: No signs and/or symptoms reported regarding the musculoskeletal system. 15:15 Reassessment: Patient appears in no apparent distress at this time. Patient and/or eh3 family updated on plan of care and expected duration. Pain level reassessed. Patient is alert, oriented x 3, equal unlabored respirations, skin warm/dry/pink. Vital Signs: 14:10 BP 173 / 103; Pulse 88; Resp 18; Temp 98.6; Pulse Ox 100% on R/A; Weight 65.77 kg; iw Height 5 ft. 5 in. (165.10 cm); Pain 8/10; 15:15 BP 182 / 107; Pulse 87; Resp 18; Pulse Ox 100% on R/A; eh3 14:10 Body Mass Index 24.13 (65.77 kg, 165.10 cm) iw ED Course: 13:49 Patient arrived in ED. rg4 14:03 Jaci Hyman PA is PHCP. en 14:03 Matthieu Bowen MD is Attending Physician. en 14:08 Triage completed. iw 14:10 Arm band placed on. iw 14:30 Patient has correct armband on for positive identification. Placed in gown. Bed in low eh3 position. Call light in reach. Side rails up X2. Pulse ox on. NIBP on. Door closed. Noise minimized. Lights dimmed. Warm blanket given. 14:34 Madai Morrow, RN is Primary Nurse. eh3 14:45 Inserted saline lock: 20 gauge in left antecubital area, using aseptic technique. Blood eh3 collected. 15:47 CT Abd/Pelvis - IV Contrast Only In Process Unspecified. EDMS 16:18 No provider procedures requiring assistance completed. IV discontinued, intact, eh3 bleeding controlled, No redness/swelling at site. Pressure dressing applied. Administered Medications: 14:50 Drug: NS 0.9% 1000 ml Route: IV; Rate: 1 bolus; Site: left antecubital; eh3 16:17 Follow up: IV Status: Completed infusion; IV Intake: 1000ml eh3 14:50 Drug: Zofran (Ondansetron) 4 mg Route: IVP; Site: left antecubital; eh3 16:17 Follow up: Response: No adverse reaction eh3 14:50 Drug: ProTONIX (pantoprazole) 40 mg Route: IVP; Site: left antecubital; eh3 16:17 Follow up: Response: No adverse reaction eh3 Medication: 16:18 VIS not applicable for this client. eh3 Intake: 16:17 IV: 1000ml; Total: 1000ml. eh3 Outcome: 16:05 Discharge ordered by . en 16:18 Discharged to home ambulatory. eh3 16:18 Condition: stable 16:18 Discharge instructions given to patient, Instructed on discharge instructions, follow up and referral plans. medication usage, Demonstrated understanding of instructions, follow-up care, medications, Prescriptions given X 2. 16:18 Patient left the ED. eh3 Signatures: Dispatcher [employer] EDMS Marilu Farley RN RN iw Garcia, Rubi rg4 Madai Morrow, NASEEM RN eh3 Jaci Hyman PA PA en Corrections: (The following items were deleted from the chart) 14:11 14:10 Pulse 88bpm; Resp 18bpm; Pulse Ox 100% RA; Temp 98.6F; 65.77 kg; Height 5 ft. 5 iw in.; BMI: 24.1; Pain 8/10; iw
[2022-11-14 18:38] VITALS: TEMP 98.6; O2SAT 100
[2022-11-14 18:40] VITALS: BP 182/107
== END 2022-11-14 16:18 | disposition home or self-care (01) ==
LOC: ER 13:45
DX: R19.7 Diarrhea, unspecified (principal); I10 Essential (primary) hypertension; Z21 Asymptomatic human immunodeficiency virus [HIV] infection status; Z88.5 Allergy status to narcotic agent; Z91.048 Other nonmedicinal substance allergy status
CPT/HCPCS: 85025; 36415; 83690; 80053; 74177; Q9967; C9113; J7030; J2405; 96361; 96374; 96375; 99284

== ENCOUNTER 2023-01-24 12:11 | Emergency (ER) | payer BC ==
--- OUTSIDE RECORDS SUMMARY | 2023-01-24 12:23 | XMS REPORT | Continuity of Care Document ---
:1980 Author Organization [facility] t Address [address] [facility]. [address] [place] [address] Care Team Providers Name Role Phone Lesly Lea MD Primary Care Physician APOLINAR SMITH Attending Clinician Unavailable Apolinar Lam Attending Clinician Myrna Pratt Attending Clinician Unavailable Visit, [facility] Id Nurse Attending Clinician Unavailable [facility]-Lab Attending Clinician Unavailable Doctor Unassigned, [place] Attending Clinician Unavailable Chari Siddiqi MD Attending Clinician [phone] BRAD HARRIS Attending Clinician Unavailable Regis [...] Clinician Unavailable Sheryl Aquino MD Attending Clinician [phone] Jacky Guadalupe MD Attending Clinician MARISOL ODONNELL Attending Clinician Unavailable Marisol Patrick Attending Clinician Sofya Hightower MA Attending Clinician Unavailable Cecy Tiwari Attending Clinician [phone] Uzair Sidhu Attending Clinician Unavailable Araceli Thomson Attending Clinician Unavailable Elva Nur Attending Clinician Unavailable Extra Hours, [place] Attending Clinician Unavailable Cuauhtemoc MedAdherence, Naomie Goodson Attending Clinician Unavailab Luna MedAdherence,, Chuck Attending Clinician Unavailable David MedAdherence, Jaci Attending Clinician Unavailaltagracia Caruso MedAdherence,, Marni Attending Clinician Unavailable Admin, [place] Attending Clinician Unavailable Caterina Palafox Attending Clinician Unavailable Derick Wilder Attending Clinician Unavailable Agustina Simpson Attending Clinician Unavailable Isabel Wilder Attending Clinician Unavailable Clarissa Dutton Attending Clinician Unavailable Kelli Lyles Attending Clinician Unavailable Dc Guerrero Attending Clinician [phone] Lizy Mcgregor Attending Clinician [phone] Tigre House Attending Clinician Unavailable Vanessa Loomis Attending Clinician Unavailable Marni Sr Attending Clinician Unavailable Elva Brown Attending Clinician Unavailable Denise Wilder Attending Clinician Unavailable Ashlee Verdugo Attending Clinician Unavailable Nestor Guzman Attending Clinician [phone] Silvia Hassan Attending Clinician Unavailable Leticia Linder Attending Clinician Unavailable Valerie Moore Attending Clinician Unavailable Camila Woodard Attending Clinician [phone] Samantha Cast Attending Clinician Unavailable Kasia Betancur Attending Clinician [phone] Robby Edwards Attending Clinician [phone] Az Islas Attending Clinician Unavailable Saloni Gil Attending Clinician Unavailable Sneha Dan Attending Clinician Unavailable Kiel Billy Attending Clinician Unavailable Casa Riggs Attending Clinician [phone] Shirley Encarnacion Attending Clinician [phone] Maribeth Abad Attending Clinician Unavailable Julio Govea Attending Clinician Unavailable Kaleigh Finney Attending Clinician Unavailable Carlos Alberto Bowen Attending Clinician Unavailable Nitza Alex Attending Clinician [phone] Wan Jeromeh Attending Clinician Unavailable Amanda Fuentes Attending Clinician [phone] Yolie Santiago Attending Clinician Unavailable Ameena Stringer Attending Clinician Unavailable Ivory Fontanez Attending Clinician [phone] Jamal Zelaya Attending Clinician [phone] Alejandro Saenz Attending Clinician Unavailable MARISOL ODONNELL Admitting Clinician Unavailable Cecy Tiwari Unavailable [phone] Dc Guerrero Unavailable [phone] RiggsCasa Leatha Unavailable [id number] Payers Payer Name Policy Type Policy Number Effective Date Expiration Date S chetna AETNA [facility] [id number] 2017 00:00:00 [facility] [id number] 2019 00:00:00 [facility] BCBS BLUE [id number] 2021 ADVANTAGE O 00:00:00 AETNA 11 [id number] 2019 2020 [facility] 00:00:00 00:00:00 [facility] Health AETNA 11 [id number] 2019 2020 [facility] 00:00:00 00:00:00 [facility] AETNA CI [id number] 2019 2020 [facility] 00:00:00 00:00:00 [facility] Health AETNA 11 [id number] 2018 2019 [facility] 00:00:00 00:00:00 [facility] Health AETNA 11 [id number] 2016 2017 [facility] 00:00:00 00:00:00 [facility] Health AETNA 11 [id number] 2012 2017 [facility] 00:00:00 00:00:00 Community Health Problems Condition Condition Condition Status Onset Resolution Last Treating Co mments Source Name Details Category Date Date Treatment Clinician Date abscess, Condition Active 2019-04-26 Karie Legje perianal 04-26 16:07:35 Cecy Clark i 00:00: ty [address] [place] [address] Diabetes Condition Active 2017-12-21 [place], [facility] mellitus, 6-12 10:15:14 Cecy Quevedou ni type II 00:00: ty 00 Health Hyperlipid Condition Active 2015-112017-07-20 Adair Tiwari emia 11-21 20:06:19 Cecy Garcia 00:00: ty 00 Health Preventive Condition Active 2015-112017-04-17 Adair Tiwari health 11-21 11:44:53 Cecy Garcia care 00:00: ty 00 Health ANXIETY Condition Active 2016-09-21 Adair Guerrero DISORDER, 07-21 09:37:47 Jinregis Quevedou ni UNSPECIFIE 00:00: ty D 00 Health Hallucinat Condition Active 2016-09-21 Adair Guerrero ions 06-09 09:37:47 Dc Garcia 00:00: ty 00 Health HEPATITIS Condition Active 2017-04-17 Adair Tiwari B, CHRONIC 05-06 11:44:53 Cecy aleman 00:00: ty 00 Health PTSD Condition [...] different from the original. ICD10 Diagnosis Term Radio [employer] Utility History of History of Disease Active [...] different from the original. ICD10 Diagnosis Term Radio [employer] Utility Human Human Disease Active Univers immunodefi [...] Adair Tiwari OU e 06-09 00:00:00 10:31:37 Cecy Commun i 00:00: ty 00 Health Screening [...] Tiwari M e 12-17 00:00:00 10:53:58 Cecy Commun i 00:00: ty 00 Health Allergies, Adverse Reactions, Alerts Allergy Allergy Status Severity Reaction(s) Onset Inactive Treating Comm ents Source Name Type Date Date Clinician CODEINE Drug Active Low rash 2011-11 [facility] allergy Criticali -11 Commun i (disorde ty 00:00: ty r) [...] Not sure University SARS-CoV-2 (event) 00:00:00 11:13:00 [facility] Alcohol intake 2022-10-10 2022-10-10 Current University of 00:00:00 00:00:00 non-drinker of [facility] alcohol Branch (finding) Cigarettes smoked 2022-09-12 2022-09-12 Univers ity of current (pack per 00:00:00 00:00:00 [facility] ) - Reported Branch Cigarette pack-years 2022-09-12 2022-09-12 Univ ersity of 00:00:00 00:00:00 [facility] Tobacco use and 2022-09-12 2022-09-12 Smokeless Universit y of exposure 00:00:00 00:00:00 tobacco non-user [facility] albumin, serum 2019-11-02 2019-11-02 4.3 g/dL [facility]unity 11:10:00 11:10:00 Health drug use 2019-04-26 2019-04-26 Never [facility] ty 15:28:24 15:28:24 Health alcohol use 2019-04-26 2019-04-26 Currently [facility] ity 15:28:24 15:28:24 Health social history 2019-04-26 2019-04-26 reviewed today [facility] reviewed E&M 15:28:24 15:28:24 Health social history E&M 2019-04-26 2019-04-26 Single. Not [facility] Community 15:28:24 15:28:24 homeless. Born Health in [facility]. City: [place]. State: [place]. Employed full-time. [employer] . Highest education [...] [facility] 15:28:24 15:28:24 Healpetar ross 2014 Standards, 3C10) time of call 2019-04-25 2019-04-25 04/25/2019 11:55 [facility] 11:55:04 11:55:04 AM Health smoking, advice to 2017-04-17 2017-04-17 Yes [facility] quit 10:47:27 10:47:27 Health cigarettes, number 2016-09-21 2016-09-21 [facility] smoked per day 09:13:37 09:13:37 Health age when patient 2016-09-14 2016-09-14 [facility] began smoking 10:38:38 10:38:38 Health tobacco use 2016-09-14 2016-09-14 Currently [facility] (cigarettes, cigar, 10:38:38 10:38:38 Healpetar ross chew, pipe) alcohol use, 2016-06-09 2016-06-09 [...] with a younger sister. Father was a [employer] employee and mother worked as a postal [...] 09:53:46 Health patient considered 2016-05-06 2016-05-06 No [facility] to be homeless 09:53:46 09:53:46 Health History of tobacco 2013-12-07 Cigarette Smoker University of use 00:00:00 [facility] Sex [birth year] At [birth year] Universit y of 00:00:00 00:00:00 [facility] Smoking Status Start Date Stop Date Source Ex-smoker 2022-09-12 00:00:00 2022-09-12 University o [facility] [place] 00:00:00 [facility] Smokes tobacco daily 2017-04-17 10[facility]47:[facility] Occasional tobacco 2016-09-14 10:38:38 [facility] smoker (finding) Never smoked tobacco [facility] (finding) Medications Ordered Filled Start Stop Current Ordering Indication Dosage Frequency Signature Comments Components Source Medication Medication Date Date Medication? Clinician (SIG) Name Name dulaglutide Yes [id number] INJECT Univers (TRULICITY) 2-16 1.5MG ity of 1.5 mg/0.5 00:00: [place] SKIN Medical WEEKLY Branch FENOFIBRATE Yes [id number] TAKE ONE Univers 48 mg 1-19 TABLET BY ity of tablet 00:00: MOUTH [place] DAILY Medical Branch FENOFIBRATE Yes [id number] TAKE ONE Univers 48 mg 1-19 TABLET BY ity of tablet 00:00: MOUTH [place] DAILY Medical Branch TRULICITY 2021-11 Yes [id number] INJECT U nivers 1.5 mg/0.5 2-21 1.5MG ity of mL PnIj 00:00: UNDER THE [place] SKIN Medical WEEKLY Branch TRULICITY 2021-11 Yes [id number] INJECT U nivers 1.5 mg/0.5 2-21 1.5MG ity of mL PnIj 00:00: UNDER THE [place] SKIN Medical WEEKLY Branch TRULICITY 2021-11- No [id number] INJECT Univers 1.5 mg/0.5 2-21 02-16 1.5MG ity of mL PnIj 00:00[place] 00[place] Medical WEEKLY Branch lisinopriL 2022-1 Yes [id number] TAKE ONE Univers 40 mg 1-07 TABLET BY ity of tablet 00:00: [facility] DAILY Medical Branch lisinopriL 2021- Yes [id number] TAKE ONE Univers 40 mg 1-07 TABLET BY ity of tablet 00:00: [facility] DAILY Medical Branch lisinopriL 2021- Yes [id number] TAKE ONE Univers 40 mg 1-07 TABLET BY ity of tablet 00:00: [facility] DAILY Medical Branch lisinopriL 2021-11 Yes [id number] TAKE ONE Univers 40 mg 1-07 TABLET BY ity of tablet 00:00: [facility] DAILY Medical Branch lisinopriL 2021-11 Yes [id number] TAKE ONE Univers 40 mg 1-07 TABLET BY ity of tablet 00:00: [facility] DAILY Medical Branch lisinopriL 2021-11 Yes [id number] TAKE ONE Univers 40 mg 1-07 TABLET BY ity of tablet 00:00: [facility] DAILY Medical Branch lisinopriL 2021-11 Yes [id number] TAKE ONE Univers 40 mg 1-07 TABLET BY ity of tablet 00:00: [facility] DAILY Medical Branch lisinopriL 2021- Yes [id number] TAKE ONE Univers 40 mg 1-07 TABLET BY ity of tablet 00:00: [facility] DAILY Medical Branch lisinopriL 2021-11 Yes [id number] TAKE ONE Univers 40 mg 1-07 TABLET BY ity of tablet 00:00: [facility] DAILY Medical Branch lisinopriL 2021-11 Yes [id number] TAKE ONE Univers 40 mg 1-07 TABLET BY ity of tablet 00:00: [facility] DAILY Medical Branch TRULICITY 2021-0 Yes [id number] INJECT U nivers 1.5 mg/0.5 9-28 1.5MG ity of mL PnIj 00:00: UNDER THE [place] SKIN Medical WEEKLY Branch TRULICITY 2-0 Yes [id number] INJECT U nivers 1.5 mg/0.5 9-28 1.5MG ity of mL PnIj 00:00: UNDER THE [place] SKIN Medical WEEKLY Branch TRULICITY 2021-0 Yes [id number] INJECT U nivers 1.5 mg/0.5 9-28 1.5MG ity of mL PnIj 00:00: UNDER THE [place] SKIN Medical WEEKLY Branch TRULICITY Yes [id number] INJECT U nivers 1.5 mg/0.5 9-28 1.5MG ity of mL PnIj 00:00: UNDER THE [place] SKIN Medical WEEKLY Branch TRULICITY Yes [id number] INJECT U nivers 1.5 mg/0.5 9-28 1.5MG ity of mL PnIj 00:00: UNDER THE [place] SKIN Medical WEEKLY Branch ULICITY Yes [id number] INJECT U nivers 1.5 mg/0.5 9-28 1.5MG ity of mL PnIj 00:00: UNDER THE [place] SKIN Medical WEEKLY Branch TRULICITY 2021- No [id number] INJECT Univers 1.5 mg/0.5 9-28 12-21 1.5MG ity of mL PnIj 00:00: 00:00 UNDER THE [facility] 00 :00 SKIN Medical WEEKLY Branch ULICITY 2021- No [id number] INJECT Univers 1.5 mg/0.5 9-28 12-21 1.5MG ity of mL PnIj 00:00: 00:00 UNDER THE [facility] 00 :00 SKIN Medical WEEKLY Branch ULICITY 2021- No [id number] INJECT Univers 1.5 mg/0.5 9-28 12-21 1.5MG ity of mL PnIj 00:00: 00:00 UNDER THE [facility] 00 :00 SKIN Medical WEEKLY Branch FENOFIBRATE 2021-0 Yes [id number] TAKE ONE Univers 48 mg 9-09 TABLET BY ity of tablet 00:00: MOUTH 00 DAILY Medical Branch metFORMIN 2021-0 Yes [id number] TAKE ONE Univers 1,000 mg 9-09 TABLET BY ity of tablet 00:00: MOUTH TWICE A Medical DAY Branch lisinopriL 2021-0 Yes [id number] TAKE ONE Univers 20 mg 9-09 TABLET BY ity of tablet 00:00: MOUTH DAILY Medical Branch ODEFSEY 2021-0 Yes [id number] TAKE ONE Un nilsa 200-25-25 9-09 TABLET BY ity o f mg Tab 00:00: MOUTH DAILY WITH Medical FOOD Branch FENOFIBRATE 2021-0 Yes [id number] TAKE ONE Univers 48 mg 9-09 TABLET BY ity of tablet 00:00: MOUTH [place] 00 DAILY Medical Branch metFORMIN 2022-0 Yes [id number] TAKE ONE Univers 1,000 mg 9-09 TABLET BY ity of tablet 00:00: MOUTH [place] 00 TWICE A Medical DAY Branch lisinopriL 2022-0 Yes [id number] TAKE ONE Univers 20 mg 9-09 TABLET BY ity of tablet 00:00: MOUTH [place] 00 DAILY Medical Branch ODEFSEY 2022-0 Yes [id number] TAKE ONE Un nilsa 200-25-25 9-09 TABLET BY ity o f mg Tab 00:00: MOUTH [place] 00 DAILY WITH Medical FOOD Branch FENOFIBRATE 2022-0 Yes [id number] TAKE ONE Univers 48 mg 9-09 TABLET BY ity of tablet 00:00: MOUTH [place] 00 DAILY Medical Branch metFORMIN 2022-0 Yes [id number] TAKE ONE Univers 1,000 mg 9-09 TABLET BY ity of tablet 00:00: MOUTH [place] 00 TWICE A Medical DAY Branch lisinopriL 2022-0 Yes [id number] TAKE ONE Univers 20 mg 9-09 TABLET BY ity of tablet 00:00: MOUTH [place] 00 DAILY Medical Branch ODEFSEY 2022-0 Yes [id number] TAKE ONE Un nilsa 200-25-25 9-09 TABLET BY ity o f mg Tab 00:00: MOUTH [place] 00 DAILY WITH Medical FOOD Branch FENOFIBRATE 2022-0 Yes [id number] TAKE ONE Univers 48 mg 9-09 TABLET BY ity of tablet 00:00: MOUTH [place] 00 DAILY Medical Branch metFORMIN 2022-0 Yes [id number] TAKE ONE Univers 1,000 mg 9-09 TABLET BY ity of tablet 00:00: MOUTH [place] 00 TWICE A Medical DAY Branch lisinopriL 2022-0 Yes [id number] TAKE ONE Univers 20 mg 9-09 TABLET BY ity of tablet 00:00: MOUTH [place] 00 DAILY Medical Branch ODEFSEY 2022-0 Yes [id number] TAKE ONE Un nilsa 200-25-25 9-09 TABLET BY ity o f mg Tab 00:00: MOUTH [place] 00 DAILY WITH Medical FOOD Branch FENOFIBRATE 2022-0 Yes [id number] TAKE ONE Univers 48 mg 9-09 TABLET BY ity of tablet 00:00: MOUTH [place] 00 DAILY Medical Branch metFORMIN 2022-0 Yes [id number] TAKE ONE Univers 1,000 mg 9-09 TABLET BY ity of tablet 00:00: MOUTH [place] 00 TWICE A Medical DAY Branch ODEFSEY 2022-0 Yes [id number] TAKE ONE Un nilsa 200-25-25 9-09 TABLET BY ity o f mg Tab 00:00: MOUTH [place] 00 DAILY WITH Medical FOOD Branch FENOFIBRATE 2022-0 Yes [id number] TAKE ONE Univers 48 mg 9-09 TABLET BY ity of tablet 00:00: MOUTH [place] 00 DAILY Medical Branch metFORMIN 2022-0 Yes [id number] TAKE ONE Univers 1,000 mg 9-09 TABLET BY ity of tablet 00:00: MOUTH [place] 00 TWICE A Medical DAY Branch ODEFSEY 2022-0 Yes [id number] TAKE ONE Un nilsa 200-25-25 9-09 TABLET BY ity o f mg Tab 00:00: MOUTH [place] 00 DAILY WITH Medical FOOD Branch FENOFIBRATE 2022-0 Yes [id number] TAKE ONE Univers 48 mg 9-09 TABLET BY ity of tablet 00:00: MOUTH [place] 00 DAILY Medical Branch metFORMIN 2022-0 Yes [id number] TAKE ONE Univers 1,000 mg 9-09 TABLET BY ity of tablet 00:00: MOUTH [place] 00 TWICE A Medical DAY Branch ODEFSEY 2022-0 Yes [id number] TAKE ONE Un nilsa 200-25-25 9-09 TABLET BY ity o f mg Tab 00:00: MOUTH [place] 00 DAILY WITH Medical FOOD Branch FENOFIBRATE 2022-0 Yes [id number] TAKE ONE Univers 48 mg 9-09 TABLET BY ity of tablet 00:00: MOUTH [place] 00 DAILY Medical Branch metFORMIN 2022-0 Yes [id number] TAKE ONE Univers 1,000 mg 9-09 TABLET BY ity of tablet 00:00: MOUTH [place] 00 TWICE A Medical DAY Branch ODEFSEY 2022-0 Yes [id number] TAKE ONE Un nilsa 200-25-25 9-09 TABLET BY ity o f mg Tab 00:00: MOUTH [place] 00 DAILY WITH Medical FOOD Branch FENOFIBRATE 2022-0 Yes [id number] TAKE ONE Univers 48 mg 9-09 TABLET BY ity of tablet 00:00: MOUTH [place] 00 DAILY Medical Branch metFORMIN 2022-0 Yes [id number] TAKE ONE Univers 1,000 mg 9-09 TABLET BY ity of tablet 00:00: MOUTH [place] 00 TWICE A Medical DAY Branch ODEFSEY 2022-0 Yes [id number] TAKE ONE Un nilsa 200-25-25 9-09 TABLET BY ity o f mg Tab 00:00: MOUTH [place] 00 DAILY WITH Medical FOOD Branch FENOFIBRATE 2022-0 Yes [id number] TAKE ONE Univers 48 mg 9-09 TABLET BY ity of tablet 00:00: MOUTH [place] 00 DAILY Medical Branch metFORMIN 2022-0 Yes [id number] TAKE ONE Univers 1,000 mg 9-09 TABLET BY ity of tablet 00:00: MOUTH [place] 00 TWICE A Medical DAY Branch ODEFSEY 2022-0 Yes [id number] TAKE ONE Un nilsa 200-25-25 9-09 TABLET BY ity o f mg Tab 00:00: MOUTH [place] 00 DAILY WITH Medical FOOD Branch metFORMIN 2022-0 Yes [id number] TAKE ONE Univers 1,000 mg 9-09 TABLET BY ity of tablet 00:00: MOUTH [place] 00 TWICE A Medical DAY Branch ODEFSEY 2022-0 Yes [id number] TAKE ONE Un nilsa 200-25-25 9-09 TABLET BY ity o f mg Tab 00:00: MOUTH [place] 00 DAILY WITH Medical FOOD Branch metFORMIN 2022-0 Yes [id number] TAKE ONE Univers 1,000 mg 9-09 TABLET BY ity of tablet 00:00: MOUTH [place] 00 TWICE A Medical DAY Branch ODEFSEY 2-0 Yes [id number] TAKE ONE Un nilsa 200-25-25 9-09 TABLET BY ity o f mg Tab 00:00: MOUTH [place] 00 DAILY WITH Medical FOOD Branch metFORMIN 2022-0 Yes [id number] TAKE ONE Univers 1,000 mg 9-09 TABLET BY ity of tablet 00:00: MOUTH [place] 00 TWICE A Medical DAY Branch ODEFSEY 2022-0 Yes [id number] TAKE ONE Un nilsa 200-25-25 9-09 TABLET BY ity o f mg Tab 00:00: MOUTH [place] 00 DAILY WITH Medical FOOD Branch metFORMIN 2022-0 Yes [id number] TAKE ONE Univers 1,000 mg 9-09 TABLET BY ity of tablet 00:00: MOUTH [place] 00 TWICE A Medical DAY Branch ODEFSEY 2022-0 Yes [id number] TAKE ONE Un nilsa 200-25-25 9-09 TABLET BY ity o f mg Tab 00:00: MOUTH [place] 00 DAILY WITH Medical FOOD Branch FENOFIBRATE 2022-0 2023- No [id number] TAKE ONE Univers 48 mg 9-09 -19 TABLET BY ity of tablet 00:00: 00:00 [facility] 00 :00 DAILY Medical Branch FENOFIBRATE 2021-0 3- No [id number] TAKE ONE Univers 48 mg 07-15 TABLET BY ity of tablet 00:00: 00:00 MOUTH [place] 00 :00 DAILY Medical Branch FENOFIBRATE 2021-0 3- No [id number] TAKE ONE Univers 48 mg 07-15 TABLET BY ity of tablet 00:00: 00:00 [facility] 00 :00 DAILY Medical Branch lisinopriL 2021-0 2022- No [id number] TAKE ONE Univers 20 mg 07-15 TABLET BY ity of tablet 00:00: 00:00 [facility] 00 :00 DAILY Medical Branch lisinopriL 2021-0 2- No [id number] TAKE ONE Univers 20 mg 07-15 TABLET BY ity of tablet 00:00: 00:00 [facility] 00 :00 DAILY Medical Branch FREESTYLE 0 Yes USE Univer [...] SENSOR 00:00: EVERY 14 [place] as Kit Medical Branch FREESTYLE 2021-0 Yes USE Univer s HELEN 14 7-05 DIRECTED ity of DAY SENSOR 00:00: EVERY 14 [place] 00 DAYS Medical Branch FREESTYLE Yes USE Univer s HELEN 14 7- DIRECTED ity of DAY SENSOR 00:00: EVERY 14 [place] 00 Medical Branch FREESTYLE 2021-0 Yes USE Univer s HELEN 14 7-05 DIRECTED ity of DAY SENSOR 00:00: EVERY 14 [place] Medical Branch FREESTYLE 2021- Yes USE Univer s HELEN 14 7- DIRECTED ity of DAY SENSOR 00:00: EVERY 14 [place] Medical Branch FREESTYLE Yes USE Univer s HELEN 14 - DIRECTED ity of DAY SENSOR 00:00: EVERY 14 [place] Medical Branch FREESTYLE Yes USE Univer s HELEN 14 - DIRECTED ity of DAY SENSOR 00:00: EVERY 14 [place] Medical Branch FREESTYLE Yes USE Univer s HELEN 14 05-10 DIRECTED ity of DAY SENSOR 00:00: EVERY 14 [place] Medical Branch TRULICITY Yes [id number] INJECT U nivers 1.5 mg/0.5 6-09 1.5MG ity of mL PnIj 00:00: UNDER THE [place] SKIN Medical WEEKLY Branch TRULICITY 2021-0 Yes [id number] INJECT U nivers 1.5 mg/0.5 6-09 1.5MG ity of mL PnIj 00:00: UNDER THE [place] SKIN Medical WEEKLY Branch TRULICITY 202-0 2021- No [id number] INJECT Univers 1.5 mg/0.5 6- 09-28 1.5MG ity of mL PnIj 00:00: 00[facility]EEK[facility] Branch ODEFSEY 2021-0 Yes [id number] TAKE 1 Univ ers 200-25-25 3-07 TABLET BY ity o f mg Tab 00:00: MOUTH DAY Medical WITH FOOD Branch lisinopriL 0 Yes [id number] TAKE 1 U nivers 20 mg 3-07 TABLET BY ity of tablet 00:00: MOUTH EVERY DAY Medical Branch metFORMIN 2021-0 Yes [id number] TAKE 1 U nivers 1,000 mg 3-07 TABLET BY ity of tablet 00:00: MOUTH [place] 00 TWICE A Medical DAY Branch ODEFSEY 2021- No [id number] TAKE 1 Uni vers 200-25-25 3-05 14- TABLET BY ity of mg Tab 00:00: 00:00 MOUTH [place] 00 :00 EVERY DAY Medical WITH FOOD Branch lisinopriL 2021- No [id number] TAKE 1 Univers 20 mg 01-10 TABLET BY ity of tablet 00:00: 00:00 MOUTH [place] 00 :00 EVERY DAY Medical Branch metFORMIN 2021- No [id number] TAKE 1 Univers 1,000 mg 01-10 TABLET BY ity o f tablet 00:00: 00:00 MOUTH [place] 00 :00 TWICE A Medical DAY Branch FENOFIBRATE Yes [id number] TAKE ONE Univers 48 mg 3-04 TABLET BY ity of tablet 00:00: MOUTH [place] 00 DAILY Medical Branch FENOFIBRATE 2021- No [id number] TAKE ONE Univers 48 mg 3-04 - TABLET BY ity of tablet 00:00: 00:00 MOUTH [place] 00 :00 DAILY Medical Branch ondansetron 2020-11- No [id number] 8mg Take 1 Univers (ZOFRAN 0-14 06-20 tablet by ity of ODT) 8 mg 00:00: 00:00 mouth [place] disintegrat 00 :00 every 8 Medic al ing tablet (eight) Branch hours as needed for Nausea and Vomiting (N/V). flash Yes [id number] 1{kit} 1 Kit as U nivers glucose 6-21 needed (to ity of scanning 00:00: check [place] reader 00 glucose Medical (FREESTYLE levels). [facility] h HELEN 14 DAY READER) [facility] flash Yes [id number] 1{kit} 1 Kit as U nivers glucose 6-21 needed (to ity of scanning 00:00: check [place] reader 00 glucose Medical (FREESTYLE levels). [facility] h HELEN 14 DAY READER) [facility] flash Yes [id number] 1{kit} 1 Kit as U nivers glucose 6-21 needed (to ity of scanning 00:00: check [place] reader 00 glucose Medical (FREESTYLE levels). [facility] HELEN 14 DAY READER) Mis flash 2020-0 Yes [id number] 1{kit} 1 Kit as U nivers glucose 6-21 needed (to ity of scanning 00:00: check [place] reader 00 glucose Medical (FREESTYLE levels). [facility] HELEN 14 DAY READER) Mis flash 2020-0 Yes [id number] 1{kit} 1 Kit as U nivers glucose 6-21 needed (to ity of scanning 00:00: check [place] reader 00 glucose Medical (FREESTYLE levels). [facility] HELEN 14 DAY READER) Mis flash 2020-0 Yes [id number] 1{kit} 1 Kit as U nivers glucose 6-21 needed (to ity of scanning 00:00: check [place] reader 00 glucose Medical (FREESTYLE levels). [facility] HELEN 14 DAY READER) Mis flash 2020- Yes [id number] 1{kit} 1 Kit as U nivers glucose 6-21 needed (to ity of scanning 00:00: check [place] reader 00 glucose Medical (FREESTYLE levels). [facility] HELEN 14 DAY READER) Mis flash 2020- Yes [id number] 1{kit} 1 Kit as U nivers glucose 6-21 needed (to ity of scanning 00:00: check [place] reader 00 glucose Medical (FREESTYLE levels). [facility] HELEN 14 DAY READER) Mis flash 2020- Yes [id number] 1{kit} 1 Kit as U nivers glucose 6-21 needed (to ity of scanning 00:00: check [place] reader 00 glucose Medical (FREESTYLE levels). [facility] HELEN 14 DAY READER) Mis flash 2020- Yes [id number] 1{kit} 1 Kit as U nivers glucose 6-21 needed (to ity of scanning 00:00: check [place] reader 00 glucose Medical (FREESTYLE levels). [facility] HELEN 14 DAY READER) Mis flash 2020-0 Yes [id number] 1{kit} 1 Kit as U nivers glucose 6-21 needed (to ity of scanning 00:00: check [place] reader 00 glucose Medical (FREESTYLE levels). [facility] HELEN 14 DAY READER) Mis flash 2020- Yes [id number] 1{kit} 1 Kit as U nivers glucose 6-21 needed (to ity of scanning 00:00: check [place] reader 00 glucose Medical (FREESTYLE levels). [facility] h HELEN 14 DAY READER) [facility] flash Yes [id number] 1{kit} 1 Kit as U nivers glucose 6-21 needed (to ity of scanning 00:00: check [place] reader 00 glucose Medical (FREESTYLE levels). [facility] HELEN 14 DAY READER) [facility] flash Yes [id number] 1{kit} 1 Kit as U nivers glucose 6-21 needed (to ity of scanning 00:00: check [place] reader 00 glucose Medical (FREESTYLE levels). [facility] HELEN 14 DAY READER) [facility] flash Yes [id number] 1{kit} 1 Kit as U nivers glucose 6-21 needed (to ity of scanning 00:00: check [place] reader 00 glucose Medical (FREESTYLE levels). [facility] HELEN 14 DAY READER) [facility] lamoTRIgine 2021- No 25mg Take 25 mg Univers 25 mg 4 06-20 by mouth ity of tablet 00:00: 00:00 daily. [place] 00 :00 Medical Branch COMPLERA 2018-11 Yes Cecy TAKE ONE [place] (EMTRICITAB 1-27 [place] TABLET BY Communi -RILPIVIR-T 00:00: MOUTH ONCE ty ENOFOVIR) 00 DAILY WITH [facility] [id number] FOOD. MG TABS STORE IN ORIGINAL BOTTLE AT ROOM TEMPERATUR E. (LISINOPRIL Yes Cecy 1{Table 1xD TAKE 1 L egacy ) 20 MG 7-15 Nem[place]k t} TABLET BY Comm uni TABS 00:00: MOUTH ty 00 EVERY DAY Health ANTABUSE 2017-11 Yes Dc 1 1xD 1 By Mouth L egacy [...] RISPERDAL 2018- No Robby 1 By Mouth Jerry otto (RISPERIDON 06-09 [facility] at bedtime Communi E) 2 MG 00:00: 00:00 ty TABS 00 :00 Health MIRTAZAPINE 2011-11 2018- No [place] [facility] (MIRTAZAPIN 12-17 Communi E TABS) 00:00: 00:00 ty TABS 00 :00 Health Immunizations Ordered Immunization Filled Immunization Date Status Commen ts Source Name Name VACCINIA, SMALLPOX 2022-10-11 Completed Univer sity of MONKEYPOX VACCINE 00:00:00 [place] [facility] LIVE, ADULT LOW DOSE Bran ch 0.1ML, PF,ID SMALLPOX MONKEYPOX 2022-10-11 Completed Univer sity of VACCINE LIVE JYNNEOS, 00:00:00 [facility] ADULT LOW DOSE 0.1ML, Bra nch PF,ID SMALLPOX MONKEYPOX 2022-10-11 Completed Univer sity of VACCINE LIVE JYNNEOS, 00:00:00 [facility] ADULT LOW DOSE 0.1ML, Bra nch PF,ID SMALLPOX MONKEYPOX 2022-10-11 Completed Univer sity of VACCINE LIVE JYNNEOS, 00:00:00 [facility] ADULT LOW DOSE 0.1ML, Bra nch PF,ID Influenza Virus 2022-09-12 Completed Universit y of Vaccine Quad IM, 00:00:00 [place] [facility] Preserv and ABX Free Bran ch 6 MO-64 YRS SARS-COV-2 COVID-19 2022-09-12 Completed Unive rsity of VACCINE 12 YRS+, 00:00:00 [place] [facility] BIVALENT 0.5ML, IM, Branc h (MODERNA BOOSTER) VACCINIA, SMALLPOX 2022-09-12 Completed Univer sity of MONKEYPOX VACCINE 00:00:00 [facility] edical LIVE, 0.5ML, PF,SQ Branch Influenza Virus 2022-09-12 Completed Universit y of Vaccine Quad IM, 00:00:00 [place] [facility] Preserv and ABX Free Bran [...] JYNNEOS, 00:00:00 [facility] 0.5ML,PF,SQ Branch Influenza Virus 2022-09-12 Completed Universit y of Vaccine Quad IM, 00:00:00 [place] [facility] Preserv and ABX Free Bran ch 6 MO-64 YRS SARS-COV-2 COVID-19 2022-09-12 Completed Unive rsity of VACCINE 12 YRS+, 00:00:00 [place] [facility] BIVALENT 0.5ML, IM, Branc h (MODERNA BOOSTER) SMALLPOX MONKEYPOX 2022-09-12 Completed Univer sity of VACCINE LIVE JYNNEOS, 00:00:00 [facility] 0.5ML,PF,SQ Branch Influenza Virus 2022-09-12 Completed Universit y of Vaccine Quad IM, 00:00:00 [place] [facility] Preserv and ABX Free Bran ch 6 MO-64 YRS SARS-COV-2 COVID-19 2022-09-12 Completed Unive rsity of VACCINE 12 YRS+, 00:00:00 [place] [facility] BIVALENT 0.5ML, IM, Branc h (MODERNA BOOSTER) SMALLPOX MONKEYPOX 2022-09-12 Completed Univer sity of VACCINE LIVE JYNNEOS, 00:00:00 [facility] 0.5ML,PF,SQ Branch Influenza Virus 2022-09-12 Completed Universit y of Vaccine Quad IM, 00:00:00 [place] [facility] Preserv and ABX Free Bran ch 6 MO-64 YRS SARS-COV-2 COVID-19 2022-09-12 Completed Unive rsity of VACCINE 12 YRS+, 00:00:00 [place] [facility] BIVALENT 0.5ML, IM, Branc h (MODERNA BOOSTER) SMALLPOX MONKEYPOX 2022-09-12 Completed Univer sity of VACCINE LIVE JYNNEOS, 00:00:00 [facility] 0.5ML,PF,SQ Branch Influenza Virus 2022-09-12 Completed Universit y [...] Completed Unive rsity of MODERNA 0.25ML 00:00:00 [place] [facility] richard BOOSTER VACCINE Branch SARS-COV-2 COVID-19 2021-09-14 Completed Unive rsity of MODERNA 0.25ML 00:00:00 [place] [facility] richard BOOSTER VACCINE Branch SARS-COV-2 COVID-19 2021-09-14 Completed Unive rsity of MODERNA 0.25ML 00:00:00 [place] [facility] richard BOOSTER VACCINE Branch SARS-COV-2 COVID-19 2021-09-14 Completed Unive rsity of MODERNA 0.25ML 00:00:00 [place] [facility] richard BOOSTER VACCINE Branch SARS-COV-2 COVID-19 2021-09-14 Completed Unive rsity of MODERNA 0.25ML 00:00:00 [place] [facility] richard BOOSTER VACCINE Branch SARS-COV-2 COVID-19 2021-09-14 Completed Unive rsity of MODERNA 0.25ML 00:00:00 [facility] richard BOOSTER VACCINE Branch Influenza Virus 2021-08-11 Completed Universit y of Vaccine Quad IM 6-35 00:00:00 [facility] Influenza Virus 2021-08-11 Completed Universit y of Vaccine Quad IM, 00:00:00 [facility] dical Preserv and ABX Free Bran ch 6 MO-64 YRS Pneumococcal 2021-08-11 Completed University o f Polysaccharide, 00:00:00 [place] [facility] PPSV23 (PNEUMOVAX) Branch Influenza Virus 2021-08-11 Completed Universit y of Vaccine Quad IM 6-35 00:00:00 [facility] Influenza Virus 2021-08-11 Completed Universit y of Vaccine Quad IM, 00:00:00 [facility] dical Preserv and ABX Free Bran ch 6 MO-64 YRS Pneumococcal 2021-08-11 Completed University o f Polysaccharide, 00:00:00 [place] [facility] PPSV23 (PNEUMOVAX) Branch Influenza Virus 2021-08-11 Completed Universit y of Vaccine Quad IM 6-35 00:00:00 [facility] Influenza Virus 2021-08-11 Completed Universit y of Vaccine Quad IM, 00:00:00 [place] [facility] Preserv and ABX Free Bran ch 6 MO-64 YRS Pneumococcal 2021-08-11 Completed University o f Polysaccharide, 00:00:00 [place] [facility] PPSV23 (PNEUMOVAX) [place] Influenza Virus 2021-08-11 Completed Universit y of Vaccine Quad IM 6-35 00:00:00 [facility] Influenza Virus 2021-08-11 Completed Universit y of Vaccine Quad IM, 00:00:00 [place] [facility] Preserv and ABX Free Bran ch 6 MO-64 YRS Pneumococcal 2021-08-11 Completed University o f Polysaccharide, 00:00:00 [facility] ical PPSV23 (PNEUMOVAX) [place] Influenza Virus 2021-08-11 Completed Universit y of Vaccine Quad IM 6-35 00:00:00 [facility] Influenza Virus 2021-08-11 Completed Universit y of Vaccine Quad IM, 00:00:00 [place] [facility] Preserv and ABX Free Bran ch 6 MO-64 YRS Pneumococcal 2021-08-11 Completed University o f Polysaccharide, 00:00:00 [facility] ical PPSV23 (PNEUMOVAX) [place] Influenza Virus 2021-08-11 Completed Universit y of Vaccine Quad IM 6-35 00:00:00 [facility] Influenza Virus 2021-08-11 Completed Universit y of Vaccine Quad IM, 00:00:00 [facility] dical Preserv and ABX Free Bran ch 6 MO-64 YRS Pneumococcal 2021-08-11 Completed University o f Polysaccharide, 00:00:00 [facility] ical PPSV23 (PNEUMOVAX) [place] Influenza Virus 2021-08-11 Completed Universit y of Vaccine Quad IM 6-35 00:00:00 [facility] Influenza Virus 2021-08-11 Completed Universit y of Vaccine Quad IM, 00:00:00 [facility] dical Preserv and ABX Free Bran ch 6 MO-64 YRS Pneumococcal 2021-08-11 Completed University o f Polysaccharide, 00:00:00 [facility] ical PPSV23 (PNEUMOVAX) [place] Influenza Virus 2021-08-11 Completed Universit y of Vaccine Quad IM 6-35 00:00:00 [place] [facility] Influenza Virus 2021-08-11 Completed Universit y of Vaccine Quad IM, 00:00:00 [place] [facility] Preserv and ABX Free Bran ch 6 MO-64 YRS Pneumococcal 2021-08-11 Completed University o f Polysaccharide, 00:00:00 [facility] ical PPSV23 (PNEUMOVAX) [place] Influenza Virus 2021-08-11 Completed Universit y of Vaccine Quad IM 6-35 00:00:00 [facility] Influenza Virus 2021-08-11 Completed Universit y of Vaccine Quad IM, 00:00:00 [place] [facility] Preserv and ABX Free Bran ch 6 MO-64 YRS Pneumococcal 2021-08-11 Completed University o f Polysaccharide, 00:00:00 [facility] ical PPSV23 (PNEUMOVAX) [place] Influenza Virus 2021-08-11 Completed Universit y of Vaccine Quad IM 6-35 00:00:00 [place] [facility] Influenza Virus 2021-08-11 Completed Universit y of Vaccine Quad IM, 00:00:00 [place] [facility] Preserv and ABX Free Bran ch 6 MO-64 YRS Pneumococcal 2021-08-11 Completed University o f Polysaccharide, 00:00:00 [facility] ical PPSV23 (PNEUMOVAX) [place] Influenza Virus 2021-08-11 Completed Universit y of Vaccine Quad IM 6-35 00:00:00 [facility] Influenza Virus 2021-08-11 Completed Universit y of Vaccine Quad IM, 00:00:00 [facility] dical Preserv and ABX Free Bran ch 6 MO-64 YRS Pneumococcal 2021-08-11 Completed University o f Polysaccharide, 00:00:00 [facility] ical PPSV23 (PNEUMOVAX) [place] Influenza Virus 2021-08-11 Completed Universit y of Vaccine Quad IM 6-35 00:00:00 [facility] Influenza Virus 2021-08-11 Completed Universit y of Vaccine Quad IM, 00:00:00 [facility] dical Preserv and ABX Free Bran ch 6 MO-64 YRS Pneumococcal 2021-08-11 Completed University o f Polysaccharide, 00:00:00 [facility] ical PPSV23 (PNEUMOVAX) [place] Influenza Virus 2021-08-11 Completed Universit y of Vaccine Quad IM 6-35 00:00:00 [facility] Influenza Virus 2021-08-11 Completed Universit y of Vaccine Quad IM, 00:00:00 [place] [facility] Preserv and ABX Free Bran ch 6 MO-64 YRS Pneumococcal 2021-08-11 Completed University o f Polysaccharide, 00:00:00 [facility] ical PPSV23 (PNEUMOVAX) [place] Influenza Virus 2021-08-11 Completed Universit y of Vaccine Quad IM 6-35 00:00:00 [facility] Influenza Virus 2021-08-11 Completed Universit y of Vaccine Quad IM, 00:00:00 [place] [facility] Preserv and ABX Free Bran ch 6 MO-64 YRS Pneumococcal 2021-08-11 Completed University o f Polysaccharide, 00:00:00 [facility] ical PPSV23 (PNEUMOVAX) [place] Influenza Virus 2021-08-11 Completed Universit y of Vaccine Quad IM 6-35 00:00:00 [facility] Influenza Virus 2021-08-11 Completed Universit y of Vaccine Quad IM, 00:00:00 [place] [facility] Preserv and ABX Free Bran ch 6 MO-64 YRS Pneumococcal 2021-08-11 Completed University o f Polysaccharide, 00:00:00 [facility] ical PPSV23 (PNEUMOVAX) [place] Influenza Virus 2019-09-18 Completed Universit y of Vaccine 00:00:00 [facility] Influenza Virus 2019-09-18 Completed Universit y of Vaccine 00:00:00 [facility] Influenza Virus 2019-09-18 Completed Universit y of Vaccine 00:00:00 [facility] Influenza Virus 2019-09-18 Completed Universit y of Vaccine 00:00:00 [facility] Influenza Virus 2019-09-18 Completed Universit y of Vaccine 00:00:00 [facility] Influenza Virus 2019-09-18 Completed Universit y of Vaccine 00:00:00 [facility] Influenza Virus 2019-09-18 Completed Universit y of Vaccine 00:00:00 [facility] Influenza Virus 2019-09-18 Completed Universit y of Vaccine 00:00:00 [facility] Influenza Virus 2019-09-18 Completed Universit y of Vaccine 00:00:00 [facility] Influenza Virus 2019-09-18 Completed Universit y of Vaccine 00:00:00 [facility] Influenza Virus 2019-09-18 Completed Universit y of Vaccine 00:00:00 [facility] Influenza Virus 2019-09-18 Completed Universit y of Vaccine 00:00:00 [facility] Influenza Virus 2019-09-18 Completed Universit y of Vaccine 00:00:00 [facility] Influenza Virus 2019-09-18 Completed Universit y of Vaccine 00:00:00 [facility] Influenza Virus 2019-09-18 Completed Universit y of Vaccine 00:00:00 [facility] flu vax 2018-07-07 Completed [facility] 10:03:13 Health flu vax 2017-09-06 Completed [facility] 11:35:57 Health pneumovax 2017-07-20 Completed [facility] 12:39:39 Health flu vax 2016-09-21 Completed [facility] 09:13:37 Health pneumped1 2016-05-06 Completed [facility] 09:53:46 Health Pneumococcal 13 2014-09-17 Completed Universit y of Conjugate, PCV13 00:00:00 [place] [facility] (Prevnar 13) Branch Influenza Virus 2014-09-17 Completed Universit y of Vaccine Quad IM 3+ 00:00:00 [facility] Pneumococcal 13 2014-09-17 Completed Universit y of Conjugate, PCV13 00:00:00 [place] [facility] (Prevnar 13) Branch Influenza Virus 2014-09-17 Completed Universit y of Vaccine Quad IM 3+ 00:00:00 [facility] Pneumococcal 13 2014-09-17 Completed Universit y of Conjugate, PCV13 00:00:00 [place] [facility] (Prevnar 13) Branch Influenza Virus 2014-09-17 Completed Universit y of Vaccine Quad IM 3+ 00:00:00 [facility] Pneumococcal 13 2014-09-17 Completed Universit y of Conjugate, PCV13 00:00:00 [place] [facility] (Prevnar 13) Branch Influenza Virus 2014-09-17 Completed Universit y of Vaccine Quad IM 3+ 00:00:00 [facility] Pneumococcal 13 2014-09-17 Completed Universit y of Conjugate, PCV13 00:00:00 [place] [facility] (Prevnar 13) Branch Influenza Virus 2014-09-17 Completed Universit y of Vaccine Quad IM 3+ 00:00:00 [facility] Pneumococcal 13 2014-09-17 Completed Universit y of Conjugate, PCV13 00:00:00 [place] [facility] (Prevnar 13) Branch Influenza Virus 2014-09-17 Completed Universit y of Vaccine Quad IM 3+ 00:00:00 [facility] Pneumococcal 13 2014-09-17 Completed Universit y of Conjugate, PCV13 00:00:00 [place] [facility] (Prevnar 13) Branch Influenza Virus 2014-09-17 Completed Universit y of Vaccine Quad IM 3+ 00:00:00 [facility] Branch Pneumococcal 13 2014-09-17 Completed Universit y of Conjugate, PCV13 00:00:00 [place] [facility] (Prevnar 13) Branch Influenza Virus 2014-09-17 Completed Universit y of Vaccine Quad IM 3+ 00:00:00 [facility] Pneumococcal 13 2014-09-17 Completed Universit y of Conjugate, PCV13 00:00:00 [place] [facility] (Prevnar 13) Branch Influenza Virus 2014-09-17 Completed Universit y of Vaccine Quad IM 3+ 00:00:00 [facility] Pneumococcal 13 2014-09-17 Completed Universit y of Conjugate, PCV13 00:00:00 [place] [facility] (Prevnar 13) Branch Influenza Virus 2014-09-17 Completed Universit y of Vaccine Quad IM 3+ 00:00:00 [facility] Pneumococcal 13 2014-09-17 Completed Universit y of Conjugate, PCV13 00:00:00 [place] [facility] (Prevnar 13) Branch Influenza Virus 2014-09-17 Completed Universit y of Vaccine Quad IM 3+ 00:00:00 [facility] Pneumococcal 13 2014-09-17 Completed Universit y of Conjugate, PCV13 00:00:00 [place] [facility] (Prevnar 13) Branch Influenza Virus 2014-09-17 Completed Universit y of Vaccine Quad IM 3+ 00:00:00 [facility] Pneumococcal 13 2014-09-17 Completed Universit y of Conjugate, PCV13 00:00:00 [place] [facility] (Prevnar 13) Branch Influenza Virus 2014-09-17 Completed Universit y of Vaccine Quad IM 3+ 00:00:00 [facility] Pneumococcal 13 2014-09-17 Completed Universit y of Conjugate, PCV13 00:00:00 [place] [facility] (Prevnar 13) Branch Influenza Virus 2014-09-17 Completed Universit y of Vaccine Quad IM 3+ 00:00:00 [facility] Pneumococcal 13 2014-09-17 Completed Universit y of Conjugate, PCV13 00:00:00 [place] [facility] (Prevnar 13) Branch Influenza Virus 2014-09-17 Completed Universit y of Vaccine Quad IM 3+ 00:00:00 [facility] HEPATITIS A 2014-04-23 Completed University of 00:00:00 [facility] HEPATITIS A 2014-04-23 Completed University of 00:00:00 [facility] HEPATITIS A 2014-04-23 Completed University of 00:00:00 [facility] Branch HEPATITIS A 2014-04-23 Completed University of 00:00:00 [place] [facility] HEPATITIS A 2014-04-23 Completed University of 00:00:00 [facility] Branch HEPATITIS A 2014-04-23 Completed University of 00:00:00 [facility] Branch HEPATITIS A 2014-04-23 Completed University of 00:00:00 [facility] Branch HEPATITIS A 2014-04-23 Completed University of 00:00:00 [facility] Branch HEPATITIS A 2014-04-23 Completed University of 00:00:00 [facility] Branch HEPATITIS A 2014-04-23 Completed University of 00:00:00 [facility] Branch HEPATITIS A 2014-04-23 Completed University of 00:00:00 [facility] Branch HEPATITIS A 2014-04-23 Completed University of 00:00:00 [facility] Branch HEPATITIS A 2014-04-23 Completed University of 00:00:00 [facility] HEPATITIS A 2014-04-23 Completed University of 00:00:00 [facility] HEPATITIS A 2014-04-23 Completed University of 00:00:00 [facility] PPD (TB) 2012-08-01 Completed University of 00:00:00 [facility] Influenza Virus 2012-08-01 Completed Universit y of Vaccine 00:00:00 [facility] PPD (TB) 2012-08-01 Completed University of 00:00:00 [facility] Influenza Virus 2012-08-01 Completed Universit y of Vaccine 00:00:00 [facility] PPD (TB) 2012-08-01 Completed University of 00:00:00 [facility] Influenza Virus 2012-08-01 Completed Universit y of Vaccine 00:00:00 [facility] PPD (TB) 2012-08-01 Completed University of 00:00:00 [facility] Influenza Virus 2012-08-01 Completed Universit y of Vaccine 00:00:00 [facility] PPD (TB) 2012-08-01 Completed University of 00:00:00 [facility] Influenza Virus 2012-08-01 Completed Universit y of Vaccine 00:00:00 [facility] PPD (TB) 2012-08-01 Completed University of 00:00:00 [facility] Influenza Virus 2012-08-01 Completed Universit y of Vaccine 00:00:00 [facility] PPD (TB) 2012-08-01 Completed University of 00:00:00 [facility] Influenza Virus 2012-08-01 Completed Universit y of Vaccine 00:00:00 [facility] PPD (TB) 2012-08-01 Completed University of 00:00:00 [facility] Influenza Virus 2012-08-01 Completed Universit y of Vaccine 00:00:00 [facility] PPD (TB) 2012-08-01 Completed University of 00:00:00 [facility] Influenza Virus 2012-08-01 Completed Universit y of Vaccine 00:00:00 [facility] PPD (TB) 2012-08-01 Completed University of 00:00:00 [facility] Influenza Virus 2012-08-01 Completed Universit y of Vaccine 00:00:00 [facility] PPD (TB) 2012-08-01 Completed University of 00:00:00 [facility] Influenza Virus 2012-08-01 Completed Universit y of Vaccine 00:00:00 [facility] PPD (TB) 2012-08-01 Completed University of 00:00:00 [facility] Influenza Virus 2012-08-01 Completed Universit y of Vaccine 00:00:00 [facility] PPD (TB) 2012-08-01 Completed University of 00:00:00 [facility] Influenza Virus 2012-08-01 Completed Universit y of Vaccine 00:00:00 [facility] PPD (TB) 2012-08-01 Completed University of 00:00:00 [facility] Influenza Virus 2012-08-01 Completed Universit y of Vaccine 00:00:00 [facility] PPD (TB) 2012-08-01 Completed University of 00:00:00 [facility] Influenza Virus 2012-08-01 Completed Universit y of Vaccine 00:00:00 [facility] Influenza Virus 2011-07-25 Completed Universit y of Vaccine 00:00:00 [facility] Influenza Virus 2011-07-25 Completed Universit y of Vaccine 00:00:00 [facility] Influenza Virus 2011-07-25 Completed Universit y of Vaccine 00:00:00 [facility] Influenza Virus 2011-07-25 Completed Universit y of Vaccine 00:00:00 [facility] Influenza Virus 2011-07-25 Completed Universit y of Vaccine 00:00:00 [facility] Influenza Virus 2011-07-25 Completed Universit y of Vaccine 00:00:00 [facility] Influenza Virus 2011-07-25 Completed Universit y of Vaccine 00:00:00 [facility] Influenza Virus 2011-07-25 Completed Universit y of Vaccine 00:00:00 [facility] Influenza Virus 2011-07-25 Completed Universit y of Vaccine 00:00:00 [facility] Influenza Virus 2011-07-25 Completed Universit y of Vaccine 00:00:00 [facility] Influenza Virus 2011-07-25 Completed Universit y of Vaccine 00:00:00 [facility] Influenza Virus 2011-07-25 Completed Universit y of Vaccine 00:00:00 [facility] Influenza Virus 2011-07-25 Completed Universit y of Vaccine 00:00:00 [facility] Influenza Virus 2011-07-25 Completed Universit y of Vaccine 00:00:00 [facility] Influenza Virus 2011-07-25 Completed Universit y of Vaccine 00:00:00 [facility] TDAP (ADACEL) VACCINE 2011-04-19 Completed Uni versity of 00:00:00 [facility] Pneumococcal 2011-04-19 Completed University o f Polysaccharide, 00:00:00 [place] [facility] PPSV23 (PNEUMOVAX) Branch PPD (TB) 2011-04-19 Completed University of 00:00:00 [facility] TDAP (ADACEL) VACCINE 2011-04-19 Completed Uni versity of 00:00:00 [facility] Pneumococcal 2011-04-19 Completed University o f Polysaccharide, 00:00:00 [place] [facility] PPSV23 (PNEUMOVAX) Branch PPD (TB) 2011-04-19 Completed University of 00:00:00 [facility] TDAP (ADACEL) VACCINE 2011-04-19 Completed Uni versity of 00:00:00 [facility] Pneumococcal 2011-04-19 Completed University o f Polysaccharide, 00:00:00 [place] [facility] PPSV23 (PNEUMOVAX) Branch PPD (TB) 2011-04-19 Completed University of 00:00:00 [facility] TDAP (ADACEL) VACCINE 2011-04-19 Completed Uni versity of 00:00:00 [facility] Pneumococcal 2011-04-19 Completed University o f Polysaccharide, 00:00:00 [place] [facility] PPSV23 (PNEUMOVAX) Branch PPD (TB) 2011-04-19 Completed University of 00:00:00 [facility] TDAP (ADACEL) VACCINE 2011-04-19 Completed Uni versity of 00:00:00 [facility] Pneumococcal 2011-04-19 Completed University o f Polysaccharide, 00:00:00 [place] [facility] PPSV23 (PNEUMOVAX) Branch PPD (TB) 2011-04-19 Completed University of 00:00:00 [facility] TDAP (ADACEL) VACCINE 2011-04-19 Completed Uni versity of 00:00:00 [facility] Pneumococcal 2011-04-19 Completed University o f Polysaccharide, 00:00:00 [place] [facility] PPSV23 (PNEUMOVAX) Branch PPD (TB) 2011-04-19 Completed University of 00:00:00 [facility] TDAP (ADACEL) VACCINE 2011-04-19 Completed Uni versity of 00:00:00 [facility] Pneumococcal 2011-04-19 Completed University o f Polysaccharide, 00:00:00 [place] [facility] PPSV23 (PNEUMOVAX) Branch PPD (TB) 2011-04-19 Completed University of 00:00:00 [facility] TDAP (ADACEL) VACCINE 2011-04-19 Completed Uni versity of 00:00:00 [facility] Pneumococcal 2011-04-19 Completed University o f Polysaccharide, 00:00:00 [place] [facility] PPSV23 (PNEUMOVAX) Branch PPD (TB) 2011-04-19 Completed University of 00:00:00 [facility] TDAP (ADACEL) VACCINE 2011-04-19 Completed Uni versity of 00:00:00 [facility] Pneumococcal 2011-04-19 Completed University o f Polysaccharide, 00:00:00 [place] [facility] PPSV23 (PNEUMOVAX) Branch PPD (TB) 2011-04-19 Completed University of 00:00:00 [facility] TDAP (ADACEL) VACCINE 2011-04-19 Completed Uni versity of 00:00:00 [facility] Pneumococcal 2011-04-19 Completed University o f Polysaccharide, 00:00:00 [place] [facility] PPSV23 (PNEUMOVAX) Branch PPD (TB) 2011-04-19 Completed [facility] of 00:00:00 [facility] TDAP (ADACEL) VACCINE 2011-04-19 Completed Uni versity of 00:00:00 [facility] Pneumococcal 2011-04-19 Completed University o f Polysaccharide, 00:00:00 [place] [facility] PPSV23 (PNEUMOVAX) Branch PPD (TB) 2011-04-19 Completed [facility] 00:00:00 [facility] TDAP (ADACEL) VACCINE 2011-04-19 Completed Uni versity of 00:00:00 [facility] Pneumococcal 2011-04-19 Completed University o f Polysaccharide, 00:00:00 [place] [facility] PPSV23 (PNEUMOVAX) Branch PPD (TB) 2011-04-19 Completed [facility] of 00:00:00 [facility] TDAP (ADACEL) VACCINE 2011-04-19 Completed Uni versity of 00:00:00 [facility] Pneumococcal 2011-04-19 Completed University o f Polysaccharide, 00:00:00 [place] [facility] PPSV23 (PNEUMOVAX) Branch PPD (TB) 2011-04-19 Completed [facility] of 00:00:00 [facility] TDAP (ADACEL) VACCINE 2011-04-19 Completed Uni versity of 00:00:00 [facility] Pneumococcal 2011-04-19 Completed University o f Polysaccharide, 00:00:00 [place] [facility] PPSV23 (PNEUMOVAX) Branch PPD (TB) 2011-04-19 Completed [facility] of 00:00:00 [facility] TDAP (ADACEL) VACCINE 2011-04-19 Completed Uni versity of 00:00:00 [facility] Pneumococcal 2011-04-19 Completed University o f Polysaccharide, 00:00:00 [place] [facility] PPSV23 (PNEUMOVAX) Branch PPD (TB) 2011-04-19 Completed [facility] of 00:00:00 [facility] PPD (TB) 2010-07-02 Completed [facility] of 00:00:00 [facility] PPD (TB) 2010-07-02 Completed [facility] of 00:00:00 [facility] PPD (TB) 2010-07-02 Completed [facility] of 00:00:00 [facility] PPD (TB) 2010-07-02 Completed [facility] of 00:00:00 [facility] PPD (TB) 2010-07-02 Completed [facility] of 00:00:00 [facility] PPD (TB) 2010-07-02 Completed [facility] of 00:00:00 [facility] PPD (TB) 2010-07-02 Completed [facility] of 00:00:00 [facility] PPD (TB) 2010-07-02 Completed [facility] of 00:00:00 [facility] PPD (TB) 2010-07-02 Completed [facility] of 00:00:00 [facility] PPD (TB) 2010-07-02 Completed [facility] of 00:00:00 [facility] PPD (TB) 2010-07-02 Completed [facility] of 00:00:00 [facility] PPD (TB) 2010-07-02 Completed [facility] of 00:00:00 [facility] PPD (TB) 2010-07-02 Completed [facility] of 00:00:00 [facility] PPD (TB) 2010-07-02 Completed [facility] of 00:00:00 [facility] PPD (TB) 2010-07-02 Completed [facility] of 00:00:00 [facility] HEPATITIS A 2010-01-08 Completed [facility] of 00:00:00 [facility] HEPATITIS A 2010-01-08 Completed [facility] of 00:00:00 [facility] HEPATITIS A 2010-01-08 Completed [facility] of 00:00:00 [facility] HEPATITIS A 2010-01-08 Completed [facility] of 00:00:00 [facility] HEPATITIS A 2010-01-08 Completed [facility] of 00:00:00 [facility] HEPATITIS A 2010-01-08 Completed [facility] of 00:00:00 [facility] HEPATITIS A 2010-01-08 Completed [facility] of 00:00:00 [facility] HEPATITIS A 2010-01-08 Completed [facility] of 00:00:00 [facility] HEPATITIS A 2010-01-08 Completed [facility] of 00:00:00 [facility] HEPATITIS A 2010-01-08 Completed [facility] of 00:00:00 [facility] HEPATITIS A 2010-01-08 Completed [facility] of 00:00:00 [facility] HEPATITIS A 2010-01-08 Completed [facility] of 00:00:00 [facility] HEPATITIS A 2010-01-08 Completed [facility] of 00:00:00 [facility] HEPATITIS A 2010-01-08 Completed [facility] of 00:00:00 [facility] HEPATITIS A 2010-01-08 Completed [facility] of 00:00:00 [facility] HEPATITIS A 2009-04-16 Completed [facility] of 00:00:00 [facility] Pneumococcal 2009-04-16 Completed University o f Polysaccharide, 00:00:00 [place] [facility] PPSV23 (PNEUMOVAX) Branch TDAP 2009-04-16 Completed [facility] of 00:00:00 [facility] HEPATITIS A 2009-04-16 Completed [facility] of 00:00:00 [facility] Pneumococcal 2009-04-16 Completed University o f Polysaccharide, 00:00:00 [place] [facility] PPSV23 (PNEUMOVAX) Branch TDAP 2009-04-16 Completed [facility] of 00:00:00 [facility] HEPATITIS A 2009-04-16 Completed [facility] of 00:00:00 [facility] Pneumococcal 2009-04-16 Completed University o f Polysaccharide, 00:00:00 [place] [facility] PPSV23 (PNEUMOVAX) Branch TDAP 2009-04-16 Completed [facility] of 00:00:00 [facility] HEPATITIS A 2009-04-16 Completed [facility] of 00:00:00 [facility] Pneumococcal 2009-04-16 Completed University o f Polysaccharide, 00:00:00 [place] [facility] PPSV23 (PNEUMOVAX) Branch TDAP 2009-04-16 Completed [facility] of 00:00:00 [facility] HEPATITIS A 2009-04-16 Completed [facility] 00:00:00 [facility] Pneumococcal 2009-04-16 Completed University o f Polysaccharide, 00:00:00 [place] [facility] PPSV23 (PNEUMOVAX) Branch TDAP 2009-04-16 Completed [facility] of 00:00:00 [facility] HEPATITIS A 2009-04-16 Completed [facility] of 00:00:00 [facility] Pneumococcal 2009-04-16 Completed University o f Polysaccharide, 00:00:00 [place] [facility] PPSV23 (PNEUMOVAX) Branch TDAP 2009-04-16 Completed [facility] 00:00:00 [facility] HEPATITIS A 2009-04-16 Completed [facility] of 00:00:00 [facility] Pneumococcal 2009-04-16 Completed University o f Polysaccharide, 00:00:00 [place] [facility] PPSV23 (PNEUMOVAX) Branch TDAP 2009-04-16 Completed [facility] of 00:00:00 [facility] HEPATITIS A 2009-04-16 Completed [facility] of 00:00:00 [facility] Pneumococcal 2009-04-16 Completed University o f Polysaccharide, 00:00:00 [place] [facility] PPSV23 (PNEUMOVAX) Branch TDAP 2009-04-16 Completed [facility] of 00:00:00 [facility] HEPATITIS A 2009-04-16 Completed [facility] of 00:00:00 [facility] Pneumococcal 2009-04-16 Completed University o f Polysaccharide, 00:00:00 [place] [facility] PPSV23 (PNEUMOVAX) Branch TDAP 2009-04-16 Completed [facility] of 00:00:00 [facility] HEPATITIS A 2009-04-16 Completed [facility] of 00:00:00 [facility] Pneumococcal 2009-04-16 Completed University o f Polysaccharide, 00:00:00 [place] [facility] PPSV23 (PNEUMOVAX) Branch TDAP 2009-04-16 Completed [facility] 00:00:00 [facility] HEPATITIS A 2009-04-16 Completed [facility] of 00:00:00 [facility] Pneumococcal 2009-04-16 Completed [facility] o f Polysaccharide, 00:00:00 [place] [facility] PPSV23 (PNEUMOVAX) Branch TDAP 2009-04-16 Completed [facility] 00:00:00 [facility] HEPATITIS A 2009-04-16 Completed [facility] of 00:00:00 [facility] Pneumococcal 2009-04-16 Completed [facility] o f Polysaccharide, 00:00:00 [place] [facility] PPSV23 (PNEUMOVAX) Branch TDAP 2009-04-16 Completed [facility] of 00:00:00 [facility] HEPATITIS A 2009-04-16 Completed [facility] of 00:00:00 [facility] Pneumococcal 2009-04-16 Completed [facility] o f Polysaccharide, 00:00:00 [place] [facility] PPSV23 (PNEUMOVAX) Branch TDAP 2009-04-16 Completed [facility] 00:00:00 [facility] HEPATITIS A 2009-04-16 Completed [facility] of 00:00:00 [facility] Pneumococcal 2009-04-16 Completed University o f Polysaccharide, 00:00:00 [place] [facility] PPSV23 (PNEUMOVAX) Branch TDAP 2009-04-16 Completed [facility] 00:00:00 [facility] HEPATITIS A 2009-04-16 Completed [facility] of 00:00:00 [facility] Pneumococcal 2009-04-16 Completed [facility] o f Polysaccharide, 00:00:00 [place] [facility] PPSV23 (PNEUMOVAX) Branch TDAP 2009-04-16 Completed [facility] 00:00:00 [facility] Vital Signs Vital Name Observation Time Observation Value Comments Source Systolic blood 2022-10-10 18:03:00 147 mm[Hg] Univer sity of pressure [facility] Diastolic blood 2022-10-10 18:03:00 94 mm[Hg] Unive rsity of [facility] Heart rate 2022-10-10 18:03:00 86 /min [facility] Body temperature 2022-10-10 18:01:00 36.89 Christin [facility] Respiratory rate 2022-10-10 18:01:00 18 /min [facility] Body height 2022-10-10 18:01:00 165.1 cm [facility] Body weight 2022-10-10 18:01:00 66.679 kg [facility] BMI 2022-10-10 18:01:00 24.46 kg/m2 [facility] Oxygen saturation in 2022-10-10 18:01:00 98 /min [facility] of Arterial blood by [facility] Pulse oximetry Branch Systolic blood 2022-09-12 19:31:00 161 mm[Hg] Univer sity of pressure [facility] Diastolic blood 2022-09-12 19:31:00 90 mm[Hg] Unive rsity of pressure [facility] Heart rate 2022-09-12 19:31:00 83 /min [facility] Body temperature 2022-09-12 19:28:00 36.33 Christin Univ ersity of [facility] Respiratory rate 2022-09-12 19:28:00 18 /min Univ ers[facility] Body height 2022-09-12 19:28:00 165.1 cm [facility] Body weight 2022-09-12 19:28:00 66.679 kg [facility] BMI 2022-09-12 19:28:00 24.46 kg/m2 [facility] Oxygen saturation in 2022-09-12 19:28:00 97 /min [facility] of Arterial blood by [facility] Pulse oximetry Branch Systolic blood 2022-04-25 19:06:00 164 mm[Hg] Univer sity of pressure [facility] Diastolic blood 2022-04-25 19:06:00 93 mm[Hg] Unive rsity of pressure [facility] Heart rate 2022-04-25 19:06:00 76 /min [facility] Body temperature 2022-04-25 19:05:00 36.67 Christin [facility] ers[facility] Body height 2022-04-25 19:05:00 162.6 cm [facility] Body weight 2022-04-25 19:05:00 68.584 kg [facility] BMI 2022-04-25 19:05:00 25.95 kg/m2 [facility] temperature E&M 2019-04-26 15:28:24 98.1 [degF] [facility] blood pressure, 2019-04-26 15:28:24 98 mm[Hg] [facility] blood pressure, 2019-04-26 15:28:24 144 mm[Hg] [facility] systolic [facility] pulse rate 2019-04-26 15:28:24 112 /min [facility] oxygen saturation, 2019-04-26 15:28:24 98 /min [facility] oximetry Health weight E&M 2019-04-26 15:28:24 145 [lb_av] [facility] weight in kilograms 2019-04-26 15:28:24 65.91 kg L [facility] E&M Health height in 2019-04-26 15:28:24 165.10 cm [facility] temperature site 2019-04-26 15:28:24 oral [facility] blood pressure, 2018-12-24 09:50:41 99 mm[Hg] [facility] blood pressure, 2018-12-24 09:50:41 155 mm[Hg] [facility] pulse rate 2018-12-24 09:50:41 91` /min [facility] weight E&M 2018-12-24 09:50:41 157 [lb_av] [facility] weight in kilograms 2018-12-24 09:50:41 71.36 kg L [facility] height in 2018-12-24 09:50:41 165.10 cm [facility] blood pressure, 2018-12-21 09:56:09 86 mm[Hg] [facility] blood pressure, 2018-12-21 09:56:09 136 mm[Hg] [facility] weight E&M 2018-12-21 09:56:09 153 [lb_av] [facility] weight in kilograms 2018-12-21 09:56:09 69.55 kg L [facility] oxygen saturation, 2018-12-21 09:56:09 98 /min Mal[facility] oximetry Health respiratory rate E&M 2018-12-21 09:56:09 16 /min [facility] Health pulse rate 2018-12-21 09:56:09 102 /[facility] temperature E&M 2018-12-21 09:56:09 98.1 [degF] [facility] Health height in 2018-12-21 09:56:09 [facility] temperature site 2018-12-21 09:56:09 oral [facility] Health blood pressure, 2018-10-25 11:52:22 89 mm[Hg] [facility] diastolic Health blood pressure, 2018-10-25 11:52:22 166 mm[Hg] [facility] systolic Health pulse rate 2018-10-25 11:52:22 83 /[facility] weight E&M 2018-10-25 11:52:22 161 [lb_av] [facility] weight in kilograms 2018-10-25 11:52:22 73.18 kg L [facility] E[facility]M Health height in 2018-10-25 11:52:22 [facility] blood pressure, 2017-12-21 10:04:46 90 mm[Hg] [facility] diastolic Health blood pressure, 2017-12-21 10:04:46 139 mm[Hg] [facility] systolic Health respiratory rate E&M 2017-12-21 10:04:46 16 /min [facility] Health pulse rate 2017-12-21 10:04:46 66 /min [facility] oxygen saturation, 2017-12-21 10:04:46 98 /min [facility] oximetry Health temperature E&M 2017-12-21 10:04:46 98.1 [degF] [facility] Health height in 2017-12-21 10:04:46 [facility]M [facility] weight E&M 2017-12-21 10:04:46 161 [lb_av] [facility] weight in kilograms 2017-12-21 10:04:46 73.18 kg L [facility] E&M Health temperature site 2017-12-21 10:04:46 tympanic [facility] Health blood pressure, 2017-07-20 12:39:39 87 mm[Hg] [facility] diastolic Health blood pressure, 2017-07-20 12:39:39 138 mm[Hg] [facility] systolic Health pulse rate 2017-07-20 12:39:39 76 /[facility] respiratory rate E&M 2017-07-20 12:39:39 16 /min [facility] oxygen saturation, 2017-07-20 12:39:39 97 /min [facility] 2017-07-20 12:39:39 98.7 [degF] [facility] Health weight E&M 2017-07-20 12:39:39 161.80 [lb_av] [facility] weight in kilograms 2017-07-20 12:39:39 73.55 kg L [facility] E&M Health height in 2017-07-20 12:39:39 165[facility]10 [facility] temperature site 2017-07-20 12:39:39 tympanic [facility] Health blood pressure, 2017-04-17 10:47:27 100 mm[Hg] [facility] diastolic Health blood pressure, 2017-04-17 10:47:27 138 mm[Hg] [facility] systolic Health pulse rate 2017-04-17 10:47:27 103 /min [facility] respiratory rate E&M 2017-04-17 10:47:27 16 /min [facility] oxygen saturation, 2017-04-17 10:47:27 98 /min [facility] temperature E&M 2017-04-17 10:47:27 99.5 [degF] [facility] Health weight E&M 2017-04-17 10:47:27 151 [lb_av] [facility] weight in kilograms 2017-04-17 10:47:27 68.64 kg L [facility] E& Health height in 2017-04-17 10:47:27 165[facility]10 [facility]M [facility] temperature site 2017-04-17 10:47:27 tympanic [facility] Health blood pressure, 2016-10-20 10:15:15 88 mm[Hg] [facility] diastolic Health blood pressure, 2016-10-20 10:15:15 135 mm[Hg] [facility] systolic Health pulse rate 2016-10-20 10:15:15 92 /min [facility] weight E&M 2016-10-20 10:15:15 175.13 [lb_av] [facility] weight in kilograms 2016-10-20 10:15:15 79.60 kg L [facility] E& Health height in 2016-10-20 10:15:[address] [facility] ommunity centimeters E& Health blood pressure, 2016-09-21 09:13:37 80 mm[Hg] [facility] diastolic Health blood pressure, 2016-09-21 09:13:37 130 mm[Hg] [facility] systolic Health pulse rate 2016-09-21 09:13:37 85 /min [facility] oxygen saturation, 2016-09-21 09:13:37 98 /min [facility] oximetry Health temperature E&M 2016-09-21 09:13:37 97.5 [degF] [facility] Health weight E&M 2016-09-21 09:13:37 175 [lb_av] [facility] weight in kilograms 2016-09-21 09:13:37 79.55 kg L [facility] E& Health height in 2016-09-21 09:13:[address] [facility] ommunity centimeters E&M Health temperature site 2016-09-21 09:13:37 tympanic [facility] Health blood pressure, 2016-07-21 12:17:59 87 mm[Hg] [facility] diastolic Health blood pressure, 2016-07-21 12:17:59 138 mm[Hg] [facility] systolic Health pulse rate 2016-07-21 12:17:59 96 /[facility] weight E&M 2016-07-21 12:17:59 175.25 [lb_av] [facility] weight in kilograms 2016-07-21 12:17:59 79.66 kg L [facility] E& Health height in 2016-07-21 12:17:[address] [facility] ommunity centimeters E&M Health blood pressure, 2016-06-09 11:43:33 90 mm[Hg] [facility] diastolic Health blood pressure, 2016-06-09 11:43:33 132 mm[Hg] [facility] systolic Health pulse rate 2016-06-09 11:43:33 89 /min [facility] height in 2016-06-09 11:43:[address] [facility] ommunity centimeters E&M Health blood pressure, 2016-05-06 09:53:46 84 mm[Hg] [facility] diastolic Health blood pressure, 2016-05-06 09:53:46 132 mm[Hg] [facility] systolic Health pulse rate 2016-05-06 09:53:46 97 /min [facility] temperature E&M 2016-05-06 09:53:46 97.5 [degF] [facility] oxygen saturation, 2016-05-06 09:53:46 98 /min [facility] oximetry Health weight E&M 2016-05-06 09:53:46 181.60 [lb_av] [facility] weight in kilograms 2016-05-06 09:53:46 82.55 [facility] Health height in 2016-05-06 09:53:46 165.10 cm [facility] ommunity centimeters E& Health temperature site 2016-05-06 09:53:46 tympanic [facility] Procedures Procedure Date / Time Performing Clinician Source Performed SMALLPOX, MONKEYPOX 2022-10-10 17:45:22 Apolinar Smith [facility] VACCINE, 18+ YRS, 0.1 Medical Br anch ML,ID IMMTRAC2 CONSENT 2022-10-10 06:01:00 Doctor Unassigned, [facility] [place] [facility] SMALLPOX, MONKEYPOX 2022-09-12 20:46:33 Luis Apolinar [facility] VACCINE, 0.5ML,SQ Medical Branch FLU VACC ([id number]), 6 2022-09-12 20:14:06 [facility]62 [facility], .5ML, IM, QUAD Medica l Branch (FLUCELVAX) SARS-COV-2 COVID-19 2022-09-12 20:14:06 Apolinar Smith [facility] VACCINE 12 YRS+, BIVALENT Medica l Branch 0.5ML, IM (MODERNA BOOSTER) IMMTRAC2 CONSENT 2022-09-12 06:01:00 Doctor Unassigned, [facility] MENACTRA (MCV4-D) VACCINE 2022-04-25 20:08:00 Apolinar Smith [facility] Spherocyl, SV, plano to 2017-11-26 11:18:56 VerdugoAshlee tejada [facility] +/- 4.00d sphere, 0.12 to Health 2.00d cyl, per lens Frames, purchases 2017-11-26 11:18:34 Ashlee Verdugo [facility] Health Est Patient Intermediate 2017-11-24 11:18:26 Nestor Guzman [facility] [id number] [place] [address] Primary Care Medical Case 2017-02-23 17:27:29 [facility] Primary Care Medical Case 2017-02-16 17:56:43 Kasia Betancur [facility] Primary Care Medical Case 2017-02-13 18:42:43 Kasia Betancur [facility] Health Dispensing Visit 2016-07-21 09:54:30 Shirley Encarnacion [facility] (UNLIVSTED Health OPHTHALMOLOGICAL SERVICE/PROCEDURE) Primary Care Medical Case 2016-07-05 19:13:18 Kasia Betancur [facility] Primary Care Medical Case 2016-07-04 17:24:31 Kasia Betancur [facility] Health Frames, purchases 2016-06-14 10:10:24 [facility] Spherocyl, SV, plano to 2016-06-14 10:09:52 Shirley Encarnacion [facility] +/- 4.00d sphere, 0.12 to Health 2.00d cyl, per lens Diagnostic evaluation with 2016-06-09 13:54:25 Dc Guerrero [facility] [id number] Health Est Patient Intermediate 2016-06-09 09:55:53 Casa Riggs [facility] Opt - [id number] Health Est Patient Intermediate 2016-06-09 09:13:24 Nestor Guzman [facility] [address] [facility] Primary Care Medical Case 2016-05-19 16:23:45 Kasia Betancur [facility] Primary Care Medical Case 2016-05-18 18:11:23 Kasia Betancur [facility] Primary Care Medical Case 2016-05-17 17:22:38 Kasia Betancur [facility] Primary Care Medical Case 2016-05-13 16:51:20 Kasia Betancur [facility] Primary Care Medical Case 2016-05-12 17:31:08 Kaisa Betancur [facility] Behavioral Health - 2016-05-12 14:26:13 Kasia Betancur [facility] Psych[facility] Primary Care - Service 2016-05-06 13:01:29 Kasia Betancur [facility] Primary Care - 2016-05-06 13:01:29 Kasia Betancur [facility] Primary Care Medical Case 2016-05-06 13:01:29 Kasia Betancur [facility] Behavioral Health - 2016-05-06 10:34:33 Cecy Tiwari [facility] Psychiatry Health Dispensing Visit 2012-10-25 13:23:10 Shirley Encarnacion Com munity (UNLIVSTED Health OPHTHALMOLOGICAL SERVICE/PROCEDURE) Frames, purchases 2012-10-16 16:24:53 Shirley Encarnacion [facility] Spherocyl, SV, plano to 2012-10-16 16:24:23 Shirley Encarnacion [facility] +/- 4.00d sphere, 0.12 to Health 2.00d cyl, per lens Est Patient Intermediate 2012-10-16 16:00:28 Casa Riggs [facility] [id number] Health New Patient Intermediate 2012-10-16 15:26:36 Nestor Guzman [facility] - [id number] Health Encounters Start End Encounter Admission Attending Care Care Encounter Source Date/Time Date/Time Type Type Clinicians Facility Department ID 2022-08-04 Outpatient [facility] [id number] [facility] 14:33:04 [facility] 2021-09-04 Emergency [facility] [facility] [id number] Univers 03:30[facility]23-[facility]-[address] [facility] [id number] Univers 13:00:00 13:00:00 APOLINAR keya [facility] 2022-12-20 2022-12-20 [facility]ill [facility], [facility]IT 1.2.672.442 [id number] Univers 00:00:00 00:00:00 [facility] 350.1.13.10 i [place] [id number] [address] 2022-11-24 2022-11-24 [facility]ill [facility], [facility] 1.2.032.974 [id number] Univers 00:00:00 00:00:00 [facility] 350.1.13.10 i [place] [id number] [address] 2022-10-24 2022-10-24 Outpatient Santa, ALDEN CHW [id number] [facility] 14:09:00 14:09:00 [facility] 2022-10-24 2022-10-24 [facility] 1.2.618.833 [id number] Univers 00:00:00 00:00:00 [facility] 350.1.13.10 i [place] [id number] [address] 2022-10-10 2022-10-10 Nurse Visit, [facility] Id Nurse UNIVERSIT 1.2. 840.114 [id number] Univers 13:30:00 13:45:00 Visit [facility] 350.1.13.10 ity [place] [id number] [address] 2022-10-10 2022-10-[address] [facility] [id number] Univers 13:30:00 13:30:00 [facility] 2022-10-10 2022-10-10 Content Engineer [facility] UNIVERSIT 1.2.840.114 [id number] Univers 12:45:00 13:00:00 Visit Apolinar Smith [facility] 350.1.13.10 ity of CL[place] [id number] [facility] [address] 2022-10-10 2022-10-10 Orders Doctor CECY 1.2.840.114 [id number] Univers 00:00:00 00:00:00 Only Unassigned, LISA 350.1.13.10 ity of [place] [facility] 4.2.7.2.686 Zaki as [id number] [facility] [address] 2022-09-12 2022-09-12 Content Engineer [facility] UNIVERSIT 1.2.840.114 [id number] Univers 15:00:00 15:15:00 Visit Apolinar Smith [facility] 350.1.13.10 ity of [place] [id number] [facility] [address] 2022-09-12 2022-09-12 Office [facility] 1.2.436.124 [id number] Univers 13:30:00 14:00:00 Visit [facility] 350.1.13.10 i ty [place] [id number] [facility] [address] 2022-09-12 2022-09-[address] [facility] [id number] Univers 13:30:00 13:30:00 APOLINAR ity [facility] 2022-09-12 2022-09-12 Orders Doctor CECY 1.2.840.114 [id number] Univers 00:00:00 00:00:00 Only Unassigned, LISA 350.1.13.10 ity of [place] [facility] 4.2.7.2.686 Zaki as [id number] [facility] [address] 2022-08-02 2022-08-02 Eva [facility] 1.2.840.114 [id number] Univers 00:00:00 00:00:00 [facility] 350.1.13.10 ity of [place] [id number] [address] 2022-07-25 2022-07-[address] [facility] [id number] Univers 14:30:00 14:30:00 APOLINAR morgan [facility] 2022-07-12 2022-07-12 [facility] 1.2.840.114 [id number] Univers 00:00:00 00:00:00 Chari A Y HEALTH 350.1.13.10 ity [place] [id number] [address] 2022-07-12 2022-07-12 [facility] 1.2.649.482 [id number] Univers 00:00:00 00:00:00 Apolinar Y HEALTH 350.1.13.10 i ty [place] [id number] [address] 2022-06-27 2022-06-27 [facility] 1.2.066.024 [id number] Univers 00:00:00 00:00:00 Apolinar Y HEALTH 350.1.13.10 i ty [place] [id number] [address] 2022-05-30 2022-05-30 [facility] 1.2.840.114 [id number] Univers 00:00:00 00:00:00 Chari A Y HEALTH 350.1.13.10 ity of [place] [id number] [address] 2022-05-11 2022-05-[address] [facility] [id number] Univers 00:00:00 00:00:00 APOLINAR morgan [facility] 2022-05-02 2022-05-02 [facility] 1.2.840.114 [id number] Univers 00:00:00 00:00:00 Chari A Y HEALTH 350.1.13.10 ity [place] [id number] [address] 2022-04-25 2022-04-25 Office [facility], [facility] 1.2.157.686 [id number] Univers 14:00:00 14:30:00 Visit [facility] 350.1.13.10 i ty of [place] [id number] [place] [address] [place] 2022-04-25 2022-04-[address] [facility] [id number] Univers 14:00:00 14:00:00 APOLINAR [facility] 2022-04-05 2022-04-05 Refjared Siddiqi UNIVERSIT 1.2.840.114 [id number] Univers 00:00:00 00:00:00 [facility] 350.1.13.10 ity of [place] [id number] [address] 2022-03-29 2022-03-[address] [facility] [id number] Univers 14:00:00 14:00:00 [facility] 2022-01-21 2022-01-21 Outpatient [facility] [id number] Univers 13:00:00 13:00:00 BRAD [facility] 2022-01-12 2022-01-12 Content Engineer [facility] UNIVERSIT 1.2.840.114 [id number] Univers 08:15:00 08:30:00 Visit Luis [facility] 350.1.13.10 ity of [place] [id number] [address] 2022-01-12 2022-01-[address] [facility] [id number] Univers 08:15:00 08:15:00 [facility] 2022-01-07 2022-01-07 Refill Luis [facility] 1.2.875.697 [id number] Univers 00:00:00 00:00:00 [facility] 350.1.13.10 i ty [place] [id number] [address] 2022-01-07 2022-01-07 Refjared Josebeckymaikolasmita, UNIVERSIT 1.2.840.114 [id number] Univers 00:00:00 00:00:00 Chari A HEALTH 350.1.13.10 ity of [place] [id number] [address] 2021-12-28 2021-12-28 Office [facility] 1.2.889.444 [id number] Univers 16:30:00 17:00:00 Visit [facility] 350.1.13.10 i ty of [place] [id number] [address] 2021-12-28 2021-12-[address] [facility] [id number] Univers 16:30:00 16:30:00 [facility] 2021-12-28 2021-12-28 Felipe Leslie, UNIVERSIT 1.2.840.114 [id number] Univers 00:00:00 00:00:00 Management Awa R HEALTH 350.1.13.10 ity of [place] [id number] [address] 2021-12-21 2021-12-[address] [facility] [id number] Univers 15:00:00 15:00:00 [facility] 2021-11-30 2021-11-[address] [facility] [id number] Univers 11:30:00 11:30:00 [facility] 2021-11-30 2021-11-[address] [facility] [id number] Univers 11:30:00 11:30:00 [facility] 2021-11-12 2021-11-[address] [facility] [id number] Univers 10:00:00 10:00:00 [facility] 2021-11-10 2021-11-10 Refill [facility] 1.2.633.204 [id number] Univers 00:00:00 00:00:00 [facility] 350.1.13.10 i ty [place] [id number] [facility] [address] 2021-09-24 2021-09-24 Orders Doctor CECY 1.2.840.114 [id number] Univers 00:00:00 00:00:00 Only Unassigned, LISA 350.1.13.10 ity of [place] [facility] 4.2.7.2.686 Zaki as [id number] [facility] [address] 2021-09-14 2021-09-14 Imm/Inj Nurse, Pcp Immunization [facility] 1. 2.840.114 [id number] Univers 16:48:04 16:58:04 Visit Hiram [facility] 350.1.13. 10 ity of C[place] [id number] [facility] [address] 2021-09-14 2021-09-14 Outpatient R DRE [facility] [id number] Univers 16:50:00 16:50:00 HIRAM ity [facility] 2021-09-14 2021-09-14 [facility] 1.2.528.621 [id number] Univers 00:00:00 00:00:00 [facility] 350.1.13.10 i ty of [place] [id number] [facility] [address] 2021-08-20 2021-08-20 Telephone CECY Hendrickson 1.2.961.551 [id number] Univers 00:00:00 00:00:00 Cait GONZALEZ 350.1.13.10 it y of HOSPITAL 4.2.7.2.686 Zaki as [id number] [facility] [address] 2021-08-19 2021-08-19 Urgent Adan [facility] 1.2.840.114 [id number] Univers 09:47:45 10:07:45 [facility] 350.1.13.10 it y of [place] 4.2.7.2.686 Zaki as Nixon?Blea [phone] Pa dical kney [address] [facility] 2021-08-19 2021-08-19 Outpatient R ADAN [facility] [id number] Univers 10:00:00 10:00:00 JOSEP [facility] 2021-08-11 2021-08-11 Content Engineer [facility] UNIVERSIT 1.2.840.114 [id number] Univers 10:49:45 10:58:54 Visit Apolinar Smith [facility] 350.1.13.10 ity of CL[place] [id number] [facility] [address] 2021-08-11 2021-08-11 Office Luis, [facility] 1.2.603.968 [id number] Univers 10:00:00 10:30:00 [facility] 350.1.13.10 i ty [place] [id number] [facility] [address] 2021-08-11 2021-08-11 [facility] [id number] Univers 10:00:00 10:00:00 [facility] 2021-08-11 2021-08-[address] [facility] [id number] Univers 10:00:00 10:00:00 [facility] 2021-08-07 2021-08-07 Letter CECY García 1.2.840.114 [id number] Univers 00:00:00 00:00:00 (Out) Patti GONZALEZ 350.1.13.10 it y of [facility] 4.2.7.2.686 Zaki as [id number] [facility] [address] 2021-08-06 2021-08-06 Laboratory Only, Ang Db Test [facility] 1.2.8 40.114 [id number] Univers 10:48:16 11:16:47 Only Unknown, [facility] Health 350.1.13.10 ity [facility] 4.2.7.2.686 Zaki as Nixon?Blea [phone] [address] [facility] Office Building 2021-08-06 2021-08-06 Outpatient R UNKNOWN, [facility] [id number] Univers 11:00:00 11:00:00 ATTENDING [facility] 2021-07-27 2021-07-27 Outpatient [facility] [id number] Univers 09:00:00 09:00:00 SHAWNEE morgan [facility] 2021-07-26 2021-07-26 Outpatient [facility] [id number] Univers 13:00:00 13:00:00 APOLINAR keya [facility] 2021-07-26 2021-07-26 [facility] 1.2.439.662 [id number] Univers 00:00:00 00:00:00 [facility] 350.1.13.10 i [place] [id number] [address] 2021-06-23 2021-06-23 Outpatient [facility] [id number] Univers 13:15:00 13:15:00 SEE morgan [facility] 2021-05-24 2021-05-24 Outpatient [facility] [id number] Univers 10:30:00 10:30:00 APOLIANR morgan [facility] 2021-05-24 2021-05-24 Office East, UNIVERSIT 1.2.513.961 [id number] 09:45:39 10:15:39 Visit [facility] 350.1.13.10 CLINICS 4.2.7.2.686 [id number] [facility] 2021-05-24 2021-05-24 Office [facility], [facility] 1.2.721.068 [id number] Univers 09:45:39 10:15:39 Visit [facility] 350.1.13.10 i ty [place] [id number] [address] 2021-05-05 2021-05-05 [facility] 1.2.806.922 [id number] Univers 00:00:00 00:00:00 [facility] 350.1.13.10 i ty [place] [id number] [address] 2021-04-26 2021-04-26 Content Engineer [facility] UNIVERSIT 1.2.840.114 [id number] Univers 11:56:12 12:11:12 Visit Luis [facility] 350.1.13.10 ity of CLINICS [place] [id number] [facility] [address] 2021-04-26 2021-04-26 Office [facility] 1.2.354.292 [id number] Univers 11:02:28 11:55:04 Visit [facility] 350.1.13.10 i ty of CL[place] [id number] [place] [address] [place] 2021-04-26 2021-04-[address] [facility] [id number] Univers 11:00:00 11:55:04 [facility] 2021-04-26 2021-04-[address] [facility] [id number] Univers 11:00:00 11:00:00 [facility] 2021-02-12 2021-02-12 Refill [facility] 1.2.949.834 [id number] Univers 00:00:00 00:00:00 [facility] 350.1.13.10 i ty of [place] [id number] [address] 2021-02-11 2021-02-11 Telephone [facility] 1.2.840.114 [id number] Univers 00:00:00 00:00:00 [facility] 350.1.13.10 i ty of CL[place]ICS [place].2.[place] [id number] [place] [address] [place] 2021-02-10 2021-02-10 Outpatient [facility] [id number] Univers 15:10:00 15:10:00 HIRAM [facility] 2021-02-10 2021-02-10 Telephone [facility] 1.2.840.114 [id number] Univers 00:00:00 00:00:00 [facility] 350.1.13.10 i ty of [place] [id number] [address] 2021-02-08 2021-02-08 [facility] 1.2.845.079 [id number] Univers 00:00:00 00:00:00 [facility] 350.1.13.10 i ty of [place] [id number] [address] 2021-02-07 2021-02-07 [facility] 1.2.469.366 [id number] Univers 00:00:00 00:00:00 [facility] 350.1.13.10 i ty [place] [id number] [address] 2021-02-03 2021-02-03 [facility] 1.2.840.114 [id number] Univers 00:00:00 00:00:00 [facility] 350.1.13.10 i ty of CL[place] [id number] [address] 2021-01-21 2021-01-21 [facility] 1.2.840.114 [id number] Univers 00:00:00 00:00:00 Outreach [facility] 350.1.13.10 i ty of [facility] 4.2.7.2.[place] [id number] Pa dical [address] [place] [address] 2020-11-30 2020-11-30 Outpatient R DOUGLAS [facility] [id number] Univers 18:20:00 18:20:00 FIONA morgan [facility] 2020-11-30 2020-11-30 Laboratory Lab, Adc Fam Pob I [facility] 1.2. 840.114 [id number] Univers 17:53:14 18:13:14 Only [facility] 350.1.13.10 ity [facility] 4.2.7.2.686 Zaki as Professio [phone] Pa dical nal [address] Office Building One 2020-10-26 2020-10-26 Content Engineer [facility] 1.2.840.114 [id number] Univers 11:41:13 11:56:13 Visit [facility] 350.1.13.10 ity of CLINICS 4.2.[place].2.[place] [id number] [facility] [address] 2020-10-26 2020-10-26 Office [facility] 1.2.514.306 [id number] Univers 10:46:04 11:16:04 Visit [facility] 350.1.13.10 i ty of CLINICS [place].2.[place] [id number] [place] [address] [place] 2020-10-26 2020-10-26 Outpatient [facility] [id number] Univers 11:00:00 11:00:00 [facility] 2020-09-12 2020-09-12 Telephone Mitch SAM 1.2.840.114 [id number] Univers 00:00:00 00:00:00 Anastasia colón LISA 350.1.13.10 ity of [facility] 4.2.7.2.686 Zaki as [id number] [facility] [address] 2020-09-10 2020-09-10 Emergency Pierce, TRAUMA 1.2.305.621 [id number] Univers 15:49:00 20:08:00 [facility] 350.1.13.10 it[place]2.[place].2.[place] [id number] [facility] [address] 2020-03-26 2020-03-26 Telephone [facility] 1.2.840.114 [id number] Univers 00:00:00 00:00:00 [facility] 350.1.13.10 i ty of CL[place]ICS [place].2.[place] [id number] [place] [address] [place] 2020-02-26 2020-02-26 Refill [facility] 1.2.786.220 [id number] Univers 00:00:00 00:00:00 [facility] HEALTH 350.1.13.10 i ty of CL[place] [id number] [address] 2020-02-24 2020-02-24 Outpatient R [facility] [id number] Univers 10:15:00 10:15:00 ELISA ity o f [facility] 2020-02-14 2020-02-14 Telephone East, UNIVERSIT 1.2.840.114 [id number] Univers 00:00:00 00:00:00 [facility] 350.1.13.10 i ty of CL[place]ICS 4[place]2.[place].2.[place] [id number] [place] [address] [place] 2020-02-04 2020-02-04 Outpatient R [facility] [id number] Univers 08:30:00 08:30:00 ity of [facility] 2020-02-04 2020-02-04 Telemedici [facility] 1.2.840.114 [id number] Univers 07:20:02 07:50:02 ne Visit Jacky Guadalupe [facility] 350.1.13.1 0 ity of CLINICS 4[place]2.[place].2.[place] [id number] [facility] [address] 2020-01-27 2020-01-27 Refill Luis, UNIVERSIT 1.2.498.531 [id number] Univers 00:00:00 00:00:00 [facility] 350.1.13.10 i ty of CL[place]ICS [place] [id number] [facility] [address] 2019-12-26 2019-12-26 Emergency X BELLE, [facility] ERT [id number] Univers 14:27:10 19:05:00 MARISOL ity of [facility] 2019-12-26 2019-12-26 Emergency Odonnell, TRAUMA 1.2.840.114 [id number] Univers 14:27:10 19:05:00 [facility] 350.1.13.10 it [place] of [place].2.[place] [id number] [facility] [address] 2019-12-26 2019-12-26 Patient Doctor [facility] 1.2.840.114 [id number] Univers 00:00:00 00:00:00 Secure Msg Unassigned, PRIMARY 350.1.13.10 ity of [place] CARE 4.2.7.2.[place]AV[place] [phone] Pa dical [address] 2019-12-25 2019-12-25 Telephone [facility], [facility] 1.2.840.114 [id number] Univers 00:00:00 00:00:00 [facility] 350.1.13.10 i ty of CL[place] [id number] [address] 2019-12-17 2019-12-17 Outpatient [facility] [id number] Univers 10:30:00 11:59:42 [place] ity [facility] 2019-12-17 2019-12-17 Office [facility] 1.2.848.891 [id number] Univers 10:08:35 11:59:42 Visit [facility] 350.1.13.10 i ty of CL[place] [id number] [address] 2019-12-14 2019-12-14 Patient Doctor CECY 1.2.840.114 [id number] Univers 00:00:00 00:00:00 Secure Msg Unassigned, [place] 350.1.13.10 ity of [place] [facility] 4.2.7.2.686 Zaki as [id number] [address] 2019-12-07 2019-12-07 Refill [facility] 1.2.991.081 [id number] Univers 00:00:00 00:00:00 [facility] 350.1.13.10 i ty of CL[place] [id number] [address] 2019-12-06 2019-12-06 Telephone [facility] 1.2.840.114 [id number] Univers 00:00:00 00:00:00 [facility] 350.1.13.10 i ty of CL[place]2.[place] [id number] [address] 2019-12-02 2019-12-02 Content Engineer [facility] UNIVERSIT 1.2.840.114 [id number] Univers 12:24:39 13:04:27 [facility] 350.1.13.10 ity of CL[place] [id number] [facility] [address] 2019-12-02 2019-12-02 Office East, UNIVERSIT 1.2.091.680 [id number] Univers 09:31:38 12:19:07 Visit Apolinar Smith HEALTH 350.1.13.10 i ty of CLINICS 4[place]2.[place].2.[place] [id number] [facility] [address] 2019-12-02 2019-12-02 Orders Doctor CECY 1.2.840.114 [id number] Univers 00:00:00 00:00:00 Only Unassigned, LISA 350.1.13.10 ity of [place] [facility] 4.2.7.2.686 Zaki as [id number] [facility] [address] 2019-12-02 2019-12-02 Case Campbell, UNIVERSIT 1.2.237.007 [id number] Univers 00:00:00 00:00:00 Management Sofya Smith HEALTH 350.1.13.10 ity of CL[place] [id number] [facility] [address] 2019-11-20 2019-11-20 Office Cecy Tiwari [facility] Adult En counter/ Legacy 00:00:00 00:00:00 Visit Uzair Sidhu Medic ine [id number] Communi 829987 [facility] 2019-11-15 2019-11-15 Office Berto [facility] Adult Encou nter/ Legacy 00:00:00 00:00:00 Visit Araceli Medicine [id number] Co mmuni 407778 [facility] 2019-11-02 2019-11-02 Office Karie [facility] Adult Encount er/ Legacy 00:00:00 00:00:00 Visit Cecy Medicine [id number] Co mmuni 563884 [facility] 2019-11-02 2019-11-02 Office Cecy Tiwari [facility] Adult En counter/ Legacy 00:00:00 00:00:00 Visit Elva Nur 18 [id number] Communi 574168 [facility] 2019-11-02 2019-11-02 Office Extra [facility] Legacy Encounter/ Legacy 00:00:00 00:00:00 Visit [facility], [facility] [id number] C [facility] 917248 [facility] 2019-11-02 2019-11-02 Office Extra LATA Legacy Encounter/ Legacy 00:00:00 00:00:00 Visit Beverley, [facility] [id number] C bharath Leong [facility] 784035 [facility] 2019-10-17 2019-10-17 Office Cecy Tiwari Legacy Enco unter/ Legacy 00:00:00 00:00:00 Visit Cuauhtemoc BrownAdherenceNaomie [id number] [facility] 548314 [facility] 2019-10-14 2019-10-14 Office [facility] En counter/ Legacy 00:00:00 00:00:00 Visit Christopher Cristobal,Chuck [facility] [id number] [facility] 291718 [facility] 2019-09-30 2019-09-30 Office LATA Thomson JOE Adult Encou nter/ Legacy 00:00:00 00:00:00 Visit Araceli Medicine [id number] Ga mmuni [id number] [facility] 2019-09-17 2019-09-17 Office [facility] En counter/ Legacy 00:00:00 00:00:00 Visit Jaci Gallardo Medicine [id number] [facility] [id number] [facility] 2019-08-23 2019-08-23 Office Cecy Tiwari Legacy Enco unter/ Legacy 00:00:00 00:00:00 Visit Zuly Cristobal,Marni ommunity [id number] [facility] 135415 [facility] 2019-07-17 2019-07-17 [employer] BuilderLATA YES Prep Encounter / Legacy 00:00:00 00:00:00 Visit [facility] [id number] [facility] [id number] [facility] 2019-05-21 2019-05-21 Office [facility] En counter/ Legacy 00:00:00 00:00:00 Visit Cuauhtemoc MedAdherenceNaomie Medicine [id number] [facility] [id number] [facility] 2019-05-17 2019-05-17 Office Berto [facility] Adult Encou nter/ Legacy 00:00:00 00:00:00 Visit Araceli [facility] [id number] Co mmuni [id number] [facility] 2019-04-30 2019-04-30 Office Karie [facility] Adult Encount er/ Legacy 00:00:00 00:00:00 Visit Cecy [facility] [id number] Co mmviveki [id number] [facility] 2019-04-29 2019-04-29 Office Caterina Palafox [facility] Adult Encounter/ Legacy 00:00:00 00:00:00 Visit Derick Wilder [facility] [id number] 477 Communi [id number] Health 2019-04-26 2019-04-26 Office Karie [facility] Adult Encount er/ Legacy 00:00:00 00:00:00 Visit [facility] Center [id number] Co mmuni [id number] [facility] 2019-04-26 2019-04-26 Office Karie [facility] Adult Encount er/ Legacy 00:00:00 00:00:00 Visit Cecy [facility] [id number] Co mmuni [id number] [facility] 2019-04-26 2019-04-26 Office Karie [facility] Adult Encount er/ Legacy 00:00:00 00:00:00 Visit Cecy [facility] [id number] Co mmuni [id number] [facility] 2019-04-26 2019-04-26 Office Cecy Tiwari [facility] Adult En counter/ Legacy 00:00:00 00:00:00 Visit Derick Wilder Medicine [id number] Communi 828552 [facility] 2019-04-25 2019-04-25 Office Caterina Palafox [facility] [place] Encounter/ Legacy 00:00:00 00:00:00 Visit Agustina Simpson [id number] Communi [id number] [facility] 2019-04-25 2019-04-25 Office Karie [facility] Adult Encount er/ Legacy 00:00:00 00:00:00 Visit Cecy [facility] [id number] Co mmuni [id number] [facility] 2019-04-25 2019-04-25 Office Karie [facility] Adult Encount er/ Legacy 00:00:00 00:00:00 Visit [facility] [id number] Co annmarieuni 247496 [facility] 2019-03-13 2019-03-13 Office Isabel Wilder [facility] [place] ntvandana Encounter/ Legacy 00:00:00 00:00:00 Visit Clarissa Dutton [id number] [facility] [id number] [facility] 2019-02-27 2019-02-27 Office Zuly [facility] Adult Encount er/ Legacy 00:00:00 00:00:00 Visit [facility] Medicine [id number] [facility] asmita,Marni 567895 [facility] 2019-02-08 2019-02-08 Office Hao [facility] Public Enc ounter/ Legacy 00:00:00 00:00:00 [id number] Co alex Services [id number] [facility] 2019-01-15 2019-01-15 Office Cesar [facility] Encount er/ Legacy 00:00:00 00:00:00 Visit Dc Saldana [id number] [facility] 617019 [facility] 2018-12-24 2018-12-24 Office Dc Guerrero [facility] Kenzie Encounter/ Legacy 00:00:00 00:00:00 Visit [facility] [id number] [facility] 243923 [facility] 2018-12-21 2018-12-21 Office Vivienne [facility] Adult Encounte r/ Legacy 00:00:00 00:00:00 Visit Caterina Medicine [id number] Co monii [id number] [facility] 2018-12-21 2018-12-21 Office Karie [facility] Adult Encount er/ Legacy 00:00:00 00:00:00 Visit Cecy Agustin [id number] Co annmarieuni 838147 [facility] 2018-12-21 2018-12-21 Office Cecy Tiwari [facility] Adult En counter/ Legacy 00:00:00 00:00:00 Visit Caterina Palafox [id number] [facility] 540722 [facility] 2018-10-25 2018-10-25 Office Karie [facility] Adult Encount er/ Legacy 00:00:00 00:00:00 Visit [facility] [id number] Co mmuni [id number] Health 2018-10-25 2018-10-25 Office Karie [facility] Adult Encount er/ Legacy 00:00:00 00:00:00 Visit Cecy [facility] [id number] Co mmuni [id number] ty Health 2018-10-25 2018-10-25 Office Dc Guerrero [facility] Branard Encounter/ Legacy 00:00:00 00:00:00 Visit [facility] [id number] 6935 [facility] 578804 [facility] 2018-10-25 2018-10-25 Office Cecy Tiwari [facility] Adult En counter/ Legacy 00:00:00 00:00:00 [facility] [id number] [facility] [id number] Health 2018-10-08 2018-10-08 Office Cecy Tiwari [facility] Adult En counter/ Legacy 00:00:00 00:00:00 Visit [facility]uly [facility] [place] edicine [id number] [facility] [id number] [facility] 2018-10-05 2018-10-05 Office Ebonie [facility] Legje Encounter / Legacy 00:00:00 00:00:00 Visit [facility] [id number] On license of [facility] [id number] [facility] Health 2018-05-22 2018-05-22 Office Karie [facility] Adult Encount er/ Legacy 00:00:00 00:00:00 Visit Cecy [facility] [id number] Co mmuni [id number] ty [facility] 2018-05-21 2018-05-21 Office Karie [facility] Adult Encount er/ Legacy 00:00:00 00:00:00 Visit [facility] [id number] Co mmuni [id number] ty Health 2018-05-21 2018-05-21 Office Karie [facility] Adult Encount er/ Legacy 00:00:00 00:00:00 Visit Cecy [facility] [id number] Co mmuni [id number] ty Health 2018-05-21 2018-05-21 Office Karie [facility] Adult Encount er/ Legacy 00:00:00 00:00:00 Visit [facility] [id number] Co mmuni [id number] [facility] 2018-04-03 2018-04-03 Office Jigneshpatrice Cecy [facility] Adult En counter/ Legacy 00:00:00 00:00:00 Visit Marni Sr Medicine [id number] [facility] 457965 [facility] 2018-04-01 2018-04-01 Office KarieCecy [facility] Adult En counter/ Legacy 00:00:00 00:00:00 Visit Marni Sr Medicine [id number] [facility] 166838 [facility] 2018-03-07 2018-03-07 Office Karie Cecy [facility] Adult En counter/ Legacy 00:00:00 00:00:00 Visit Marni Sr Medicine [id number] [facility] [id number] [facility] 2018-03-06 2018-03-06 Office KarieCeyc [facility] Adult En counter/ Legacy 00:00:00 00:00:00 Visit Marni Sr Medicine [id number] [facility] 503767 [facility] 2018-01-03 2018-01-03 Office Kevin [facility] Legacy Encounter/ Legacy 00:00:00 00:00:00 Visit [facility] [id number] On license of [facility] 849783 [facility] 2017-12-21 2017-12-21 Office Meño [facility] Adult Encounte r/ Legacy 00:00:00 00:00:00 Visit Denise [facility] [id number] [facility] 464204 [facility] 2017-12-21 2017-12-21 Office Karie [facility] Adult Encount er/ Legacy 00:00:00 00:00:00 Visit Cecy [facility] [id number] Co mmuni [id number] [facility] 2017-12-21 2017-12-21 Office Karie [facility] Adult Encount er/ Legacy 00:00:00 00:00:00 Visit Cecy [facility] [id number] Co mmuni [id number] [facility] 2017-12-21 2017-12-21 Office Cecy Tiwari [facility] Adult En counter/ Legacy 00:00:00 00:00:00 Visit Caterina Palafox [id number] [facility] 321318 [facility] 2017-12-21 2017-12-21 Office Lucina [facility] Vision Encoun ter/ Legacy 00:00:00 00:00:00 Visit Ashlee [id number] Com alonzo [id number] [facility] 2017-11-24 2017-11-24 Office Karie [facility] Adult Encount er/ Legacy 00:00:00 00:00:00 Visit Cecy Agustin [id number] Co mmuni [id number] [facility] 2017-11-24 2017-11-24 Office Lucina [facility] Vision Encoun ter/ Legacy 00:00:00 00:00:00 Visit Ashlee [id number] Com alonzo 125443 [facility] 2017-11-24 2017-11-24 Office Nestor Guzman [facility] Vision Enc ounter/ Legacy 00:00:00 00:00:00 Visit [id number] Com alonzo 634140 [facility] 2017-11-24 2017-11-24 Office Nestor Guzman [facility] Vision Enc ounter/ Legacy 00:00:00 00:00:00 Visit [id number] Com alonzo [id number] [facility] 2017-11-24 2017-11-24 Office DarioNestor goodson [facility] Vision Enc ounter/ Legacy 00:00:00 00:00:00 Visit [id number] Com alonzo 764605 [facility] 2017-11-24 2017-11-24 Office Nestor Guzman [facility] Vision Enc ounter/ Legacy 00:00:00 00:00:00 Visit VerdugoAshlee [id number] Communi 582331 [facility] 2017-11-22 2017-11-22 Office Cecy Tiwari [facility] Adult En counter/ Legacy 00:00:00 00:00:00 Visit Marni Sr Medicine [id number] Communi [id number] [facility] 2017-11-22 2017-11-22 Office Silvia Hassan [facility] Adult En counter/ Legacy 00:00:00 00:00:00 Visit Marni Sr Medicine [id number] Communi 363144 [facility] 2017-11-21 2017-11-21 Office Cecy Tiwari [facility] Adult En counter/ Legacy 00:00:00 00:00:00 Visit Marni Sr Medicine [id number] Communi 728603 [facility] 2017-11-16 2017-11-16 Office Silvia Hassan [facility] Adult En counter/ Legacy 00:00:00 00:00:00 Visit Marni Sr Medicine [id number] [facility] 5100[facility] Health 2017-11-15 2017-11-15 Office Kailash [facility] Jackson Encount er/ Legacy 00:00:00 00:00:00 Visit Letciia Valle [id number] [facility] [id number] Health 2017-10-05 2017-10-05 Office Oscar [facility] Legacy Encounte r/ Legacy 00:00:00 00:00:00 Visit Valerie Fernandes [id number] [facility] Piyush 227990 ty Pediatrics Healt h 2017-08-01 2017-08-01 Office Cecy Tiwari [facility] Adult En counter/ Legacy 00:00:00 00:00:00 Visit Marni Sr Medicine [id number] [facility] 5785[facility] 2017-07-20 2017-07-20 Office Karie [facility] Adult Encount er/ Legacy 00:00:00 00:00:00 Visit Cecy [facility] [id number] Co mmuni [id number] Health 2017-07-20 2017-07-20 Office Cecy Tiwari [facility] Adult En counter/ Legacy 00:00:00 00:00:00 Visit Caterina Palafox Medicine [id number] [facility] 280926 Health 2017-06-16 2017-06-16 Office Karie [facility] Adult Encount er/ Legacy 00:00:00 00:00:00 Visit Cecy [facility] [id number] Co mmuni [id number] ty Health 2017-06-16 2017-06-16 Office Meño [facility] Adult Encounte r/ Legacy 00:00:00 00:00:[facility] [id number] Kristi ommuni 873405 Health 2017-05-15 2017-05-15 Office Karie [facility] Adult Encount er/ Legacy 00:00:00 00:00:00 Visit Cecy [facility] [id number] Co mmuni [id number] Health 2017-04-17 2017-04-17 Office Yamilet [facility] Social Encoun ter/ Legacy 00:00:00 00:00:00 Visit Camila Services [id number] Communi [id number] ty Health 2017-04-17 2017-04-17 Office Cast [facility] Social Enc ounter/ Legacy 00:00:00 00:00:00 Visit Samantha Services [id number] Co mmuni [id number] ty Health 2017-04-17 2017-04-17 Office Karie [facility] Adult Encount er/ Legacy 00:00:00 00:00:00 Visit [facility] Medicine [id number] Co mmuni 745853 ty Health 2017-04-17 2017-04-17 Office Karie [facility] Adult Encount er/ Legacy 00:00:00 00:00:00 Visit Cecy Medicine [id number] Co mmuni [id number] ty Health 2017-04-17 2017-04-17 Office Cecy Tiwari [facility] Adult En counter/ Legacy 00:00:00 00:00:00 Visit Vivienne Caterina Medicine [id number] Communi 148717 ty Health 2017-02-23 2017-02-23 Office [facility] Social Encoun ter/ Legacy 00:00:00 00:00:00 Visit Kasia Services [id number] Co mmuni 834649 ty Health 2017-02-20 2017-02-20 Office [facility] Social Encoun ter/ Legacy 00:00:00 00:00:00 Visit Kasia Services [id number] Co mmuni [id number] ty Health 2017-02-16 2017-02-16 Office Pipe, [facility] Social Encoun ter/ Legacy 00:00:00 00:00:00 Visit Kasia Services [id number] Co mmuni [id number] ty Health 2017-02-16 2017-02-16 Office [facility] Social Encoun ter/ Legacy 00:00:00 00:00:00 Visit Kasia Services [id number] Co mmuni [id number] ty Health 2017-02-13 2017-02-13 Office Pipe, [facility] Social Encoun ter/ Legacy 00:00:00 00:00:00 Visit Kasia Services [id number] Co mmuni [id number] Health 2017-01-30 2017-01-30 Office Masters, [facility] LM Encounter / Legacy 00:00:00 00:00:00 Visit Robby Behavioral [id number] [facility] Health [id number] Health 2017-01-30 2017-01-30 [facility] En[facility] / Legacy 00:00:00 00:00:00 Visit [facility] [id number] [facility] Health 612050 ty Health 2017-01-29 2017-01-29 [facility] LM Encounter / Legacy 00:00:00 00:00:00 Visit [facility] [id number] [facility] Health [id number] ty Health 2017-01-29 2017-01-29 Office [facility] Encounter / Legacy 00:00:00 00:00:00 Visit Robby Behavioral [id number] [facility] Health 868674 Health 2017-01-24 2017-01-24 Office [facility] Adult Encount er/ Legacy 00:00:00 00:00:00 Visit Az Medicine [id number] C ommuni [id number] Health 2017-01-18 2017-01-18 [facility]/ Legacy 00:00:00 00:00:00 Visit Cecy Medicine [id number] Co mmuni [id number] Health 2017-01-18 2017-01-18 Office [facility] Adult Encount er/ Legacy 00:00:00 00:00:00 Visit Cecy Medicine [id number] Co mmuni [id number] Health 2017-01-17 2017-01-17 Office [facility] Adult Encounte r/ Legacy 00:00:00 00:00:00 Visit Saloni Medicine [id number] Co mmuni [id number] Health 2016-12-28 2016-12-28 [facility] LM Encounter / Legacy 00:00:00 00:00:00 Visit Robby Behavioral [id number] [facility] Health [id number] Health 2016-12-28 2016-12-28 [facility] LM Encounter / Legacy 00:00:00 00:00:00 Visit Robby Behavioral [id number] [facility] [id number] Health 2016-11-28 2016-11-28 Office Sy [facility] Adult Encounte r/ Legacy 00:00:00 00:00:00 Visit Sneha Agustin [id number] [facility] 550366 Health 2016-10-20 2016-10-20 [address] [facility] card[facility]aregis [facility] Kenzie Encounter/ Legacy 00:00:00 00:00:00 Visit Wenceslao [facility] [id number] [facility] 009577 Behavioral [facility] 2016-10-20 2016-10-20 Office [facility] Branrobb Encounter/ Legacy 00:00:00 00:00:00 Visit Wenceslao [facility] [id number] [facility] 919683 Behavioral [facility] 2016-10-17 2016-10-[address] [facility] Encount er/ Legacy 00:00:00 00:00:00 Visit Jinregis Behavioral [id number] [facility] [id number] Health 2016-10-17 2016-10-17 [facility] er/ Legacy 00:00:00 00:00:00 [facility] [id number] [facility] [id number] Health 2016-10-17 2016-10-[address] [facility] Encount er/ Legacy 00:00:00 00:00:00 Visit Dc Behavioral [id number] [facility] [id number] Health 2016-10-16 2016-10-16 Office [facility] Encount er/ Legacy 00:00:00 00:00:00 Visit Dc Behavioral [id number] [facility] [id number] Health 2016-09-21 2016-09-21 [facility] er/ Legacy 00:00:00 00:00:00 Visit [facility] [id number] Co alex [id number] ty Health 2016-09-21 2016-09-21 [facility] Encount er/ Legacy 00:00:00 00:00:00 Visit Cecy Agustin [id number] Co alex [id number] ty Health 2016-09-21 2016-09-21 Office [facility] Adult Encount er/ Legacy 00:00:00 00:00:00 Visit [facility] [id number] Co mmuni [id number] ty Health 2016-09-21 2016-09-21 Office Palafox [facility] Adult Encounte r/ Legacy 00:00:00 00:00:00 Visit [facility] [id number] Co mmuni [id number] ty Health 2016-09-21 2016-09-21 Office [facility]ilia [facility] Adult Encount er/ Legacy 00:00:00 00:00:00 Visit [facility] [id number] Co mmuni [id number] ty Health 2016-09-21 2016-09-21 Office Cecy Tiwari [facility] Adult En counter/ Legacy 00:00:00 00:00:00 Visit Caterina Palafox [facility] [id number] [facility] 197920 Health 2016-09-20 2016-09-20 Office Perjose [facility] Encount er/ Legacy 00:00:00 00:00:00 Visit Dc Behavioral [id number] [facility] Health 184345 Health 2016-09-19 2016-09-19 [facility] Encount er/ Legacy 00:00:00 00:00:00 Visit Dc Behavioral [id number] [facility] Health 989015 ty Health 2016-09-14 2016-09-14 Office Sy [facility] Adult Encounte r/ Legacy 00:00:00 00:00:00 [facility] [id number] [facility] [id number] Health 2016-09-02 2016-09-02 Office [facility] Encount er/ Legacy 00:00:00 00:00:00 Visit Dc Behavioral [id number] [facility] Health 122359 ty Health 2016-09-02 2016-09-02 Office [facility] Encount er/ Legacy 00:00:00 00:00:00 Visit Dc Behavioral [id number] [facility] Health 249342 ty Health 2016-07-21 2016-07-21 Office Oneil [facility] Vision Encount er/ Legacy 00:00:00 00:00:00 Visit Casa Goodson [id number] Co mmuni [id number] Health 2016-07-21 2016-07-21 Office Karie [facility] Adult Encount er/ Legacy 00:00:00 00:00:00 Visit Cecy Agustin [id number] Co mmuni [id number] Health 2016-07-21 2016-07-21 Office Dc Guerrero [facility] Branard Encounter/ Legacy 00:00:00 00:00:00 Visit Wenceslao [facility] [id number] [facility] [id number] Behavioral [facility] 2016-07-21 2016-07-21 Office Shashank [facility] Vision Encoun ter/ Legacy 00:00:00 00:00:00 Visit Shirley [id number] [facility] 755769 Health 2016-07-12 2016-07-12 Office Cecy Tiwari [facility] unter/ Legacy 00:00:00 00:00:00 Visit Silvia Hassan [facility] [id number] [facility] 910761 [facility] Health [facility] 2016-07-12 2016-07-12 Office Cesar [facility] Encount er/ Legacy 00:00:00 00:00:00 Visit Dc Saldana [id number] [facility] 450458 [facility] 2016-07-12 2016-07-12 Office Cesar [facility] Encount er/ Legacy 00:00:00 00:00:00 Visit Dc Saldana [id number] [facility] 025206 [facility] 2016-07-05 2016-07-05 Office Pipe [facility] Social Encoun ter/ Legacy 00:00:00 00:00:00 Visit Kasia Services [id number] Co mmuni [id number] Health 2016-07-04 2016-07-04 Office Pipe [facility] Social Encoun ter/ Legacy 00:00:00 00:00:00 Visit Kasia Services [id number] Co mmuni [id number] Health 2016-07-01 2016-07-01 Office Caterina Palafox [facility] Legacy En counter/ Legacy 00:00:00 00:00:00 [facility] [id number] [facility] Kaleigh Finney [facility] 518122 Services Health [facility] 2016-06-09 2016-06-09 Office LATA [facility] Vision Encoun ter/ Legacy 00:00:00 00:00:00 Visit Shirley [id number] Com alonzo 563143 [facility] 2016-06-09 2016-06-09 Office Dc Guerrero [facility] Branard Encounter/ Legacy 00:00:00 00:00:00 Visit [facility] [id number] [facility] 080369 [facility] 2016-06-09 2016-06-09 Office Oneil [facility] Vision Encount er/ Legacy 00:00:00 00:00:00 Visit Casa Goodson [id number] Co mmuni [id number] [facility] 2016-06-09 2016-06-09 Office Oneil [facility] Vision Encount er/ Legacy 00:00:00 00:00:00 Visit Casa Goodson [id number] Co mmuni [id number] [facility] 2016-06-09 2016-06-09 Office Casa Riggs [facility] Visio n Encounter/ Legacy 00:00:00 00:00:00 Visit Nitza Alex [id number] [facility] 416857 [facility] 2016-06-09 2016-06-09 Office Nestor Guzman [facility] Vision Enc ounter/ Legacy 00:00:00 00:00:00 Visit [id number] Com alonzo 997679 [facility] 2016-06-09 2016-06-09 Office Nestor Guzman [facility] Vision Enc ounter/ Legacy 00:00:00 00:00:00 Visit [id number] Com alnozo [id number] [facility] 2016-06-09 2016-06-09 Office Nestor Guzman [facility] Vision Enc ounter/ Legacy 00:00:00 00:00:00 Visit [id number] Com alonzo 080330 [facility] 2016-06-09 2016-06-09 Office Nestor Guzman [facility] Vision Enc ounter/ Legacy 00:00:00 00:00:00 Visit Shirley Encarnacion [id number] Commun 278129 [facility] 2016-06-07 2016-06-07 Office [facility] Adult Encounte r/ Legacy 00:00:00 00:00:00 Visit Wan Medicine [id number] [facility] [id number] Health 2016-05-19 2016-05-19 Office Pipe, [facility] Social Encoun ter/ Legacy 00:00:00 00:00:00 Visit Kasia Services [id number] Co mmuni [id number] ty Health 2016-05-18 2016-05-18 Office Mesjavier, [facility] Social Encoun ter/ Legacy 00:00:00 00:00:00 Visit Kasia Services [id number] Co mmuni [id number] ty Health 2016-05-17 2016-05-17 Office Pipe, [facility] Social Encoun ter/ Legacy 00:00:00 00:00:00 Visit Kasia Services [id number] Co mmuni [id number] Health 2016-05-13 2016-05-13 Office [facility] Adult Encount er/ Legacy 00:00:00 00:00:00 Visit Cecy Medicine [id number] Co mmuni [id number] ty Health 2016-05-13 2016-05-13 Office Pipe, [facility] Social Encoun ter/ Legacy 00:00:00 00:00:00 Visit Kasia Services [id number] Co mmuni [id number] ty Health 2016-05-13 2016-05-13 Office [facility] Adult Encount er/ Legacy 00:00:00 00:00:00 Visit Cecy Medicine [id number] Co mmuni [id number] ty Health 2016-05-12 2016-05-12 Office [facility], [facility] Social Encoun ter/ Legacy 00:00:00 00:00:00 Visit Kasia Services [id number] Co mmuni [id number] ty Health 2016-05-06 2016-05-06 Office [facility] Adult Encount er/ Legacy 00:00:00 00:00:00 Visit [facility]y [facility] [id number] Co mmuni [id number] ty Health 2016-05-06 2016-05-06 [facility] Adult Encount er/ Legacy 00:00:00 00:00:00 Visit [facility] [id number] Co mmuni [id number] Health 2016-05-06 2016-05-06 [facility] Social Encoun ter/ Legacy 00:00:00 00:00:00 Visit Kasia [facility] [id number] Co mmuni [id number] ty Health 2016-05-06 2016-05-06 Office Pipe [facility] Social Encoun ter/ Legacy 00:00:00 00:00:00 Visit [facility] [id number] Co mmuni [id number] Health 2016-05-06 2016-05-06 Office Kasia Betancur [facility] Social E ncounter/ Legacy 00:00:00 00:00:00 Visit Amanda Fuentes [facility] [id number] [facility] Eduardo Santiago Yolie [id number] Health 2016-05-06 2016-05-06 Office [facility] Adult Encount er/ Legacy 00:00:00 00:00:00 Visit Cecy Medicine [id number] Co mmuni [id number] [facility] 2016-05-06 2016-05-06 [facility] Legacy 00:00:00 00:00:00 Visit [facility] Medicine [id number] Co mmuni [id number] [facility] 2016-05-06 2016-05-06 Office Cecy Tiwari [facility] Adult En counter/ Legacy 00:00:00 00:00:00 Visit Amanda Fuentes Medicine [id number] 059 Caterina [place] [id number] [facility] 2016[facility] 2016-05-06 Office [facility] Adult Encounte r/ Legacy 00:00:00 00:00:00 Visit Ameena Medicine [id number] Co mmuni [id number] Health 2016-05-06 2016-05-06 Office [facility] Adult Encounte r/ Legacy 00:00:00 00:00:00 Visit Ameena Medicine [id number] Co mmuni [id number] Health 2016-05-06 2016-05-06 Office [facility] Adult Encounte r/ Legacy 00:00:00 00:00:00 Visit Ameena Medicine [id number] Co mmuni [id number] Health 2016-05-05 2016-05-05 Office Ivory Fontanez [facility] Encoun ter/ Legacy 00:00:00 00:00:00 Visit Behavioral [id number] [facility] [id number] Health 2016-04-28 2016-04-28 Office Reg [facility] Adult Encount er/ Legacy 00:00:00 00:00:00 Visit Kaleigh Medicine [id number] Co mmuni [id number] Health 2016-04-15 2016-04-15 Office Jigneshpatrice [facility] Adult Encount er/ Legacy 00:00:00 00:00:00 Visit [facility] [id number] [place] m[place] [id number] Health 2016-04-15 2016-04-15 Office Kiel Billy [facility] Legacy Encoun ter/ Legacy 00:00:00 00:00:00 Visit [facility] [id number] [facility] [place] [id number] [facility] Health 2016-04-15 2016-04-15 Office Karie [facility] Legacy Encounter / Legacy 00:00:00 00:00:00 Visit [facility] [id number] [facility] [id number] [facility] 2014-09-04 2014-09-04 Office Garcia [facility] Manuel Encounter/ Legacy 00:00:00 00:00:00 Visit [facility] [id number] Com alonzo [id number] [facility] 2012-10-25 2012-10-25 Office Nestor Guzman [facility] Vision Enc ounter/ Legacy 00:00:00 00:00:00 Visit [id number] Com alonzo [id number] [facility] 2012-10-25 2012-10-25 Office Shashank [facility] Vision Encoun ter/ Legacy 00:00:00 00:00:00 Visit Shirley [id number] Com alonzo [id number] Health 2012-10-16 2012-10-16 Office Shashank [facility] Vision Encoun ter/ Legacy 00:00:00 00:00:00 Visit Shirley [id number] Com alonzo [id number] Health 2012-10-16 2012-10-16 Office Casa Riggs [facility] Visio n Encounter/ Legacy 00:00:00 00:00:00 Visit Nitza Alex [id number] [facility] [id number] [facility] 2012-10-16 2012-10-16 Office Nestor Guzman [facility] Vision Enc ounter/ Legacy 00:00:00 00:00:00 Visit Shirley Encarnacion [id number] Commun [id number] [facility] 2012-10-16 2012-10-16 Office Dany [facility] Adult Encounte r/ Legacy 00:00:00 00:00:00 Visit [facility] [id number] Ga mmuni [id number] [facility] Results Test Description Test Time Test Comments Results Result Comments Source Treponema pallidum antibodies, by particle agglutination 07-18-28 11:10:00 Test Item Value Reference Range Interpretation Comme nts Treponema pallidum antibodies, by particle agglutination Reactiv e Non Reactive A (test code = 98533-2) [facility] cholesterol, [id number] 11:10:00 Test Item Value Reference Range Interpretation Comments LDL cholesterol, serum (test code = 89 mg/dL 0-99 2088-1) [facility] CarolinaHDL cholesterol, [id number] 11:10:00 Test Item Value Reference Range Interpretation Comments HDL cholesterol, serum (test code = 29 mg/dL >39 L 2084-9) [facility]inatriglyceride, serum, [id number] 11:10:00 Test Item Value Reference Range Interpretation Comments triglyceride, serum, fasting (test 272 mg/dL 0-149 H code = 2571-8) [facility] Carolinacholesterol, [id number] 11:10:00 Test Item Value Reference Range Interpretation Comments cholesterol, serum (test code = 172 mg/dL 704-356 6506-3) [facility] CarolinaT-helper cells (CD4) as percent of blood lymphocytes 2019-11-02 11:10:00 Test Item Value Reference Range Interpretation Comments T-helper cells (CD4) as percent of 37.8 % 30.8-58.5 blood lymphocytes (test code = 8123-2) [facility] CarolinaT-helper cells (CD4) [id number] 11:10:00 Test Item Value Reference Range Interpretation Comments T-helper cells (CD4) count (test code 605 /UL 359-1519 = 55706-2) [facility] CarolinaT-suppressor cells (CD8) as percent of blood lymphocytes 2019-11-02 11:10:00 Test Item Value Reference Range Interpretation Comments T-suppressor cells (CD8) as percent of 46.6 % 12.0-35.5 H blood lymphocytes (test code = 3517) [facility] Carolinaabsolute [id number] 11:10:00 Test Item Value Reference Range Interpretation Comments absolute CD8 (test code = 746 (unknown unit) [phone]) [facility] Carolinarapid plasma reagin antibody, [id number] 11:10:00 Test Item Value Reference Range Interpretation Comments rapid plasma reagin 1:2 See_Comment H [Automa stefany message] The antibody, serum (test system which generated code = 5291-0) this result t ransmitted reference range : NonRea<1:1. The reference range was not u sed to interpret this result as normal/abnormal . [facility] CarolinaHIV-1RNA, serum, by PCR, [id number] 11:10:00 Test Item Value Reference Range Interpretation Comments HIV-1RNA, serum, by PCR, quantitative 500 /mL (test code = 56095) [facility] Carolinavery low density wkpzqxjnvahb5444-84-40 11:10:00 Test Item Value Reference Range Interpretation Comments very low density lipoproteins (test 54 mg/dL 5-40 H code = 2091-7) [facility] Carolinaalanine aminotransferase (SGPT), pylht0689-16-00 11:10:00 Test Item Value Reference Range Interpretation Comments alanine aminotransferase (SGPT), serum 63 1/L 0-44 H (test code = 1742-6) [facility] Carolinaaspartate aminotransferase (SGOT), [id number] 11:10:00 Test Item Value Reference Range Interpretation Comments aspartate aminotransferase (SGOT), 37 1/L 0-40 serum (test code = 1920-8) [facility] Carolinaalkaline phosphatase, [id number] 11:10:00 Test Item Value Reference Range Interpretation Comments alkaline phosphatase, serum (test code 80 1/L 39-117 = 1783-0) [facility] Carolinabilirubin, serum, [id number] 11:10:00 Test Item Value Reference Range Interpretation Comments bilirubin, serum, total (test code 0.6 mg/dL 0.0-1.2 = 1975-2) [facility] Healthalbumin/globulin ratio, [id number] 11:10:00 Test Item Value Reference Range Interpretation Comments albumin/globulin ratio, 1.2 (unknown unit) 1.2-2.2 serum (test code = 1759-0) [facility] Healthglobulin, [id number] 11:10:00 Test Item Value Reference Range Interpretation Comments globulin, serum (test code 3.7 (unknown unit) 1.5-4.5 = 2336-6) [facility] Healthalbumin, [id number] 11:10:00 Test Item Value Reference Range Interpretation Comments albumin, serum (test code = 1751-7) 4.3 g/dL 3.5-5.5 [facility] Carolinaprotein, total, lixkr3847-30-25 11:10:00 Test Item Value Reference Range Interpretation Comments protein, total, serum (test code = 8.0 g/dL 6.0-8.5 2885-2) [facility] Healthcalcium, [id number] 11:10:00 Test Item Value Reference Range Interpretation Comments calcium, serum (test code = 1999-8) 8.8 mg/dL 8.7-10.2 [facility] Carolinacarbon dioxide, venous [id number] 11:10:00 Test Item Value Reference Range Interpretation Comments carbon dioxide, venous blood (test 20 mmol/L code = 2026-1) [facility] Carolinachloride, [id number] 11:10:00 Test Item Value Reference Range Interpretation Comments chloride, serum (test code = 100 mmol/L 96-106 5-0) [facility] Carolinapotassium, [id number] 11:10:00 Test Item Value Reference Range Interpretation Comments potassium, serum (test code = 4.0 mmol/L 3.5-5.2 2823-3) [facility] Carolinasodium, [id number] 11:10:00 Test Item Value Reference Range Interpretation Comments sodium, serum (test code = 2951-2) 134 mmol/L 134-144 [facility] Carolinaurea nitrogen/creatinine ratio, ltlmn8134-28-93 11:10:00 Test Item Value Reference Range Interpretation Comments urea nitrogen/creatinine 12 (unknown unit) 9-20 ratio, serum (test code = 3097-3) [facility] CarolinaeGFR if Etvglndu4478-88-76 11:10:00 Test Item Value Reference Range Interpretation Comments eGFR if 101 mL/min/{1.73 m2} >59 (test code = 04126-4) [facility] CarolinaEstimated Glomerular Filtration Rate (calc)2019-11-02 11:10:00 Test Item Value Reference Range Interpretation Comments Estimated Glomerular 88 mL/min/{1.73 m2} >59 Filtration Rate (calc) (test code = 30436-6) [facility] Carolinacreatinine, [id number] 11:10:00 Test Item Value Reference Range Interpretation Comments creatinine, serum (test code = 1.05 mg/dL 0.76-1.27 2160-0) [facility] Carolinaurea nitrogen, [id number] 11:10:00 Test Item Value Reference Range Interpretation Comments urea nitrogen, blood (test code = 13 mg/dL 6-24 3094-0) [facility] Carolinablood glucose, [id number] 11:10:00 Test Item Value Reference Range Interpretation Comments blood glucose, random (test code = 327 mg/dL 65-99 H 2339-0) [facility] Carolinaimmature granulocytes, percentage of total cells, blood 2019-11-02 11:10:00 Test Item Value Reference Range Interpretation Comments immature granulocytes, percentage of 0 % total cells, blood (test code = 08712-2) [facility] Carolinabasophil count, qzwjpiml2839-87-88 11:10:00 Test Item Value Reference Range Interpretation Comments basophil count, absolute (test 0.0 x10E3/uL 0.0-0.2 code = 69341-1) [facility] CarolinaEosinophil Absolute [id number] 11:10:00 Test Item Value Reference Range Interpretation Comments Eosinophil Absolute Count (test 0.1 X10E3/UL 0.0-0.4 code = 31901-6) [facility] Carolinamonocyte count, blood, jvyqeswmg0065-87-11 11:10:00 Test Item Value Reference Range Interpretation Comments monocyte count, blood, automated 0.2 X10E3/UL 0.1-0.9 (test code = 742-7) [facility] Carolinalymphocyte count, blood, zthoxenyq8825-79-58 11:10:00 Test Item Value Reference Range Interpretation Comments lymphocyte count, blood, 1.6 X10E3/UL 0.7-3.1 automated (test code = 731-0) [facility] CarolinaAbsolute Wdcknynahcb2347-43-04 11:10:00 Test Item Value Reference Range Interpretation Comments Absolute Neutrophils (test code 3.9 X10E3/UL 1.4-7.0 = 73156-3) [facility] Carolinabasophils as percent of blood xymmdilron2272-69-33 11:10:00 Test Item Value Reference Range Interpretation Comments basophils as percent of blood 0 % leukocytes (test code = 707-0) [facility] Carolinaeosinophils as percent of blood hntonazzmp6111-24-51 11:10:00 Test Item Value Reference Range Interpretation Comments eosinophils as percent of blood 2 % leukocytes (test code = 713-8) [facility] Carolinamonocytes as percent of blood pttsdrtyoa6873-17-25 11:10:00 Test Item Value Reference Range Interpretation Comments monocytes as percent of blood 4 % leukocytes (test code = 5905-5) [facility] Carolinalymphocytes as percent of blood sptkckpksz3174-50-03 11:10:00 Test Item Value Reference Range Interpretation Comments lymphocytes as percent of blood 28 % leukocytes (test code = 736-9) [facility] Carolinaneutrophils as percent of blood qpjgbybzub9275-37-75 11:10:00 Test Item Value Reference Range Interpretation Comments neutrophils as percent of blood 66 % leukocytes (test code = 770-8) [facility] Carolinaplatelet ndqun3390-59-75 11:10:00 Test Item Value Reference Range Interpretation Comments platelet count (test code = 177 X10E3/UL 150-450 777-3) [facility] Carolinared blood cell distribution [id number] 11:10:00 Test Item Value Reference Range Interpretation Comments red blood cell distribution width 14.7 % 12.3-15.4 (test code = 788-0) [facility] Carolinamean corpuscular hemoglobin concentration, [id number] 11:10:00 Test Item Value Reference Range Interpretation Comments mean corpuscular hemoglobin 34.5 G/DL 31.5-35.7 concentration, RBC (test code = 786-4) [facility] Carolinamean corpuscular hemoglobin, [id number] 11:10:00 Test Item Value Reference Range Interpretation Comments mean corpuscular hemoglobin, RBC 29.3 pg 26.6-33.0 (test code = 785-6) [facility] Carolinamean corpuscular volume, [id number] 11:10:00 Test Item Value Reference Range Interpretation Comments mean corpuscular volume, RBC (test code 85 fL 79-97 = 787-2) [facility] Carolinahematocrit, [id number] 11:10:00 Test Item Value Reference Range Interpretation Comments hematocrit, blood (test code = 4544-3) 44.0 % 37.5-51.0 [facility] Carolinahemoglobin, [id number] 11:10:00 Test Item Value Reference Range Interpretation Comments hemoglobin, blood (test code = 15.2 g/dL 13.0-17.7 718-7) [facility] Carolinaerythrocyte (RBC) [id number] 11:10:00 Test Item Value Reference Range Interpretation Comments erythrocyte (RBC) count (test 5.19 X10E6/UL 4.14-5.80 code = 789-8) [facility] Carolinaleukocyte count, calkr9230-17-77 11:10:00 Test Item Value Reference Range Interpretation Comments leukocyte count, blood (test 5.9 X10E3/UL 3.4-10.8 code = 6690-2) [facility] CarolinaCD4/CD8 [id number] 11:10:00 Test Item Value Reference Range Interpretation Comments CD4/CD8 ratio (test code 0.81 (unknown unit) 0.92-3.72 L = 01596) [facility] CarolinaLDL cholesterol, [id number] 16:37:00 Test Item Value Reference Range Interpretation Comments LDL cholesterol, serum (test code = 62 mg/dL 0-99 2088-11) [facility] CarolinaHDL cholesterol, [id number] 16:37:00 Test Item Value Reference Range Interpretation Comments HDL cholesterol, serum (test code = 27 mg/dL >39 L 2085-07) [facility] Carolinatriglyceride, serum, [id number] 16:37:00 Test Item Value Reference Range Interpretation Comments triglyceride, serum, fasting (test 331 mg/dL 0-149 H code = 2571-8) [facility] Carolinacholesterol, [id number] 16:37:00 Test Item Value Reference Range Interpretation Comments cholesterol, serum (test code = 155 mg/dL 957-563 8982-3) [facility] Carolinavery low density jokvmjcwmqts6348-24-82 16:37:00 Test Item Value Reference Range Interpretation Comments very low density lipoproteins (test 66 mg/dL 5-40 H code = 2091-7) [facility] CarolinaTreponema pallidum antibodies, by particle agglutination 2019-04-26 16:26:00 Test Item Value Reference Range Interpretation Comments Treponema pallidum antibodies, by Positive Negative A particle agglutination (test code = 67456-9) [facility] Carolinahemoglobin A1C, blood, as % of total jnsymqehhe5208-14-18 16:26:00 Test Item Value Reference Range Interpretation Comments hemoglobin A1C, blood, as % of total 10.3 % 4.8-5.6 H hemoglobin (test code = 4548-4) [facility] CarolinaT-helper cells (CD4) as percent of blood lymphocytes 2019-04-26 16:26:00 Test Item Value Reference Range Interpretation Comments T-helper cells (CD4) as percent of 44.1 % 30.8-58.5 blood lymphocytes (test code = 8123-2) [facility] CarolinaT-helper cells (CD4) [id number] 16:26:00 Test Item Value Reference Range Interpretation Comments T-helper cells (CD4) count (test code 573 /UL 359-1519 = 33881-9) [facility] Carolinahepatitis C antibody, [id number] 16:26:00 Test Item Value Reference Range Interpretation Comments hepatitis C antibody, serum (test code <0.1 0.0-0.9 = 5199-5) [facility] Carolinarapid plasma reagin antibody, [id number] 16:26:00 Test Item Value Reference Range Interpretation Comments rapid plasma reagin 1:1 See_Comment H [Automa tsefany message] The antibody, serum (test system which generated code = 5291-0) this result t ransmitted reference range : NonRea<1:1. The reference range was not u sed to interpret this result as normal/abnormal . [facility] CarolinaHIV-1RNA, serum, by PCR, frqgkyefjvvz3782-34-04 16:26:00 Test Item Value Reference Range Interpretation Comments HIV-1RNA, serum, by PCR, quantitative 30 /mL (test code = 18852) [facility] CarolinaHepatitis B virus DNA, by Polymerase Chain Reaction 2019-04-26 16:26:00 Test Item Value Reference Range Interpretation Comments Hepatitis B virus DNA, HBV DNA not detected by Polymerase Chain Reaction (test code = 70458) [facility] Carolinaalanine aminotransferase (SGPT), [id number] 16:26:00 Test Item Value Reference Range Interpretation Comments alanine aminotransferase (SGPT), serum 47 1/L 0-44 H (test code = 1742-6) [facility] Carolinaaspartate aminotransferase (SGOT), [id number] 16:26:00 Test Item Value Reference Range Interpretation Comments aspartate aminotransferase (SGOT), 34 1/L 0-40 serum (test code = 1920-8) [facility] Carolinaalkaline phosphatase, [id number] 16:26:00 Test Item Value Reference Range Interpretation Comments alkaline phosphatase, serum (test 101 1/L 39-117 code = 1783-0) [facility] Carolinabilirubin, serum, [id number] 16:26:00 Test Item Value Reference Range Interpretation Comments bilirubin, serum, total (test code 0.3 mg/dL 0.0-1.2 = 1975-2) [facility] Carolinaalbumin/globulin ratio, [id number] 16:26:00 Test Item Value Reference Range Interpretation Comments albumin/globulin ratio, 1.6 (unknown unit) 1.2-2.2 serum (test code = 1759-0) [facility] Carolinaglobulin, [id number] 16:26:00 Test Item Value Reference Range Interpretation Comments globulin, serum (test code 2.8 (unknown unit) 1.5-4.5 = 2336-6) [facility] Carolinaalbumin, [id number] 16:26:00 Test Item Value Reference Range Interpretation Comments albumin, serum (test code = 1751-7) 4.4 g/dL 3.5-5.5 [facility] Healthprotein, total, [id number] 16:26:00 Test Item Value Reference Range Interpretation Comments protein, total, serum (test code = 7.2 g/dL 6.0-8.5 2885-2) [facility] Carolinacalcium, [id number] 16:26:00 Test Item Value Reference Range Interpretation Comments calcium, serum (test code = 1999-8) 8.9 mg/dL 8.7-10.2 [facility] Carolinacarbon dioxide, venous [id number] 16:26:00 Test Item Value Reference Range Interpretation Comments carbon dioxide, venous blood (test 19 mmol/L 20-29 L code = 7-1) [facility] Carolinachloride, [id number] 16:26:00 Test Item Value Reference Range Interpretation Comments chloride, serum (test code = 103 mmol/L 96-106 2075-0) [facility] Carolinapotassium, [id number] 16:26:00 Test Item Value Reference Range Interpretation Comments potassium, serum (test code = 4.5 mmol/L 3.5-5.2 2823-3) [facility] Carolinasodium, [id number] 16:26:00 Test Item Value Reference Range Interpretation Comments sodium, serum (test code = 2951-2) 139 mmol/L 134-144 [facility] Carolinaurea nitrogen/creatinine ratio, [id number] 16:26:00 Test Item Value Reference Range Interpretation Comments urea nitrogen/creatinine 12 (unknown unit) 9-20 ratio, serum (test code = 3097-3) [facility] HealtheGFR if [id number] 16:26:00 Test Item Value Reference Range Interpretation Comments eGFR if 123 mL/min/{1.73 m2} >59 (test code = 80057-7) [facility] CarolinaEstimated Glomerular Filtration Rate (calc)2019-04-26 16:26:00 Test Item Value Reference Range Interpretation Comments Estimated Glomerular 106 mL/min/{1.73 m2} >59 Filtration Rate (calc) (test code = 61277-4) [facility] Carolinacreatinine, [id number] 16:26:00 Test Item Value Reference Range Interpretation Comments creatinine, serum (test code = 0.90 mg/dL 0.76-1.27 2160-0) [facility] Healthurea nitrogen, [id number] 16:26:00 Test Item Value Reference Range Interpretation Comments urea nitrogen, blood (test code = 11 mg/dL 6-24 3094-0) [facility] Carolinablood glucose, wqypha6719-80-94 16:26:00 Test Item Value Reference Range Interpretation Comments blood glucose, random (test code = 325 mg/dL 65-99 H 2339-0) [facility] Carolinaimmature granulocytes, percentage of total cells, blood 2019-04-26 16:26:00 Test Item Value Reference Range Interpretation Comments immature granulocytes, percentage of 1 % total cells, blood (test code = 54414-5) [facility] Carolinabasophil count, pxuobmtu5289-98-33 16:26:00 Test Item Value Reference Range Interpretation Comments basophil count, absolute (test 0.0 x10E3/uL 0.0-0.2 code = 33074-9) [facility] CarolinaEosinophil Absolute [id number] 16:26:00 Test Item Value Reference Range Interpretation Comments Eosinophil Absolute Count (test 0.1 X10E3/UL 0.0-0.4 code = 24616-8) [facility] Carolinamonocyte count, blood, gzeeykebe9497-37-28 16:26:00 Test Item Value Reference Range Interpretation Comments monocyte count, blood, automated 0.5 X10E3/UL 0.1-0.9 (test code = 742-7) [facility] Carolinalymphocyte count, blood, xtodjipkg9193-73-92 16:26:00 Test Item Value Reference Range Interpretation Comments lymphocyte count, blood, 1.3 X10E3/UL 0.7-3.1 automated (test code = 731-0) [facility] CarolinaAbsolute Ruzxhbetpif0802-62-88 16:26:00 Test Item Value Reference Range Interpretation Comments Absolute Neutrophils (test code 6.9 X10E3/UL 1.4-7.0 = 08348-7) [facility] Carolinabasophils as percent of blood oeyofkqudu6206-58-16 16:26:00 Test Item Value Reference Range Interpretation Comments basophils as percent of blood 0 % leukocytes (test code = 707-0) [facility] Carolinaeosinophils as percent of blood qgayumaica8491-42-25 16:26:00 Test Item Value Reference Range Interpretation Comments eosinophils as percent of blood 1 % leukocytes (test code = 713-8) [facility] Healthmonocytes as percent of blood [id number] 16:26:00 Test Item Value Reference Range Interpretation Comments monocytes as percent of blood 5 % leukocytes (test code = 5905-5) [facility] as percent of blood [id number] 16:26:00 Test Item Value Reference Range Interpretation Comments lymphocytes as percent of blood 15 % leukocytes (test code = 736-9) [facility]inaneutrophils as percent of blood husxjnatnq2072-02-63 16:26:00 Test Item Value Reference Range Interpretation Comments neutrophils as percent of blood 78 % leukocytes (test code = 770-8) [facility] Carolinaplatelet [id number] 16:26:00 Test Item Value Reference Range Interpretation Comments platelet count (test code = 267 X10E3/UL 150-450 777-3) [facility] Carolinared blood cell distribution [id number] 16:26:00 Test Item Value Reference Range Interpretation Comments red blood cell distribution width 13.2 % 12.3-15.4 (test code = 788-0) [facility] corpuscular hemoglobin concentration, [id number] 16:26:00 Test Item Value Reference Range Interpretation Comments mean corpuscular hemoglobin 34.7 G/DL 31.5-35.7 concentration, RBC (test code = 786-4) [facility] corpuscular hemoglobin, [id number] 16:26:00 Test Item Value Reference Range Interpretation Comments mean corpuscular hemoglobin, RBC 30.6 pg 26.6-33.0 (test code = 785-6) [facility]) corpuscular volume, [id number] 16:26:00 Test Item Value Reference Range Interpretation Comments mean corpuscular volume, RBC (test code 88 fL 79-97 = 787-2) [facility] Carolinahematocrit, [id number] 16:26:00 Test Item Value Reference Range Interpretation Comments hematocrit, blood (test code = 4544-3) 48.7 % 37.5-51.0 [facility] Carolinahemoglobin, [id number] 16:26:00 Test Item Value Reference Range Interpretation Comments hemoglobin, blood (test code = 16.9 g/dL 13.0-17.7 718-7) [facility] Carolinaerythrocyte (RBC) [id number] 16:26:00 Test Item Value Reference Range Interpretation Comments erythrocyte (RBC) count (test 5.52 X10E6/UL 4.14-5.80 code = 789-8) [facility]inaleukocyte count, [id number] 16:26:00 Test Item Value Reference Range Interpretation Comments leukocyte count, blood (test 8.9 X10E3/UL 3.4-10.8 code = 6690-2) [facility] CarolinaCD4/CD8 [id number] 16:26:00 Test Item Value Reference Range Interpretation Comments CD4/CD8 ratio (test code 1.45 (unknown unit) 0.92-3.72 = 60633) [facility] CarolinaT-suppressor cells (CD8) as percent of blood lymphocytes 2019-04-26 16:26:00 Test Item Value Reference Range Interpretation Comments T-suppressor cells (CD8) as percent of 30.4 % 12.0-35.5 blood lymphocytes (test code = 3517) [facility] Carolinaabsolute [id number] 16:26:00 Test Item Value Reference Range Interpretation Comments absolute CD8 (test code = 395 (unknown unit) 342-455 98244) [facility] CarolinaHIV-1 RNA (log 10)2018-10-25 10:41:00 Test Item Value Reference Range Interpretation Comments HIV-1 RNA (log 10) <1.30 DETECTED Log NOT DETECTED A (test code = 99302) copies/mL [facility] CarolinaHIV-1RNA, serum, by PCR, euydsrnzfqbo0748-79-28 10:41:00 Test Item Value Reference Range Interpretation Comments HIV-1RNA, serum, by PCR, <20 DETECTED NOT DETECTED A quantitative (test code = copies/mL 21853) [facility] CarolinaTreponema pallidum Ab, [id number] 10:40:00 Test Item Value Reference Range Interpretation Comments Treponema pallidum Ab, serum (test REACTIVE NON-REACTIVE A code = 51787-5) [facility] CarolinaT-helper cells (CD4) [id number] 10:40:00 Test Item Value Reference Range Interpretation Comments T-helper cells (CD4) count (test 663 CELLS/UL 490-1740 N code = 01554-6) [facility] CarolinaT-helper cells (CD4) as percent of blood lymphocytes 2018-10-25 10:40:00 Test Item Value Reference Range Interpretation Comments T-helper cells (CD4) as percent of 44 % 30-61 N blood lymphocytes (test code = 8123-2) [facility] CarolinaLDL cholesterol, [id number] 10:40:00 Test Item Value Reference Range Interpretation Comments LDL cholesterol, LDL cholesterol not serum (test code = calculated. Triglyceride 9-1) le... mg/dL (calc) [facility]inatriglyceride, serum, [id number] 10:40:00 Test Item Value Reference Range Interpretation Comments triglyceride, serum, fasting (test 407 mg/dL <150 H code = 2571-8) [facility] CarolinaHDL cholesterol, [id number] 10:40:00 Test Item Value Reference Range Interpretation Comments HDL cholesterol, serum (test code = 24 mg/dL >40 L 5-9) [facility]inacholesterol, [id number] 10:40:00 Test Item Value Reference Range Interpretation Comments cholesterol, serum (test code = 178 mg/dL <200 N 2093-3) [facility] Carolinarapid plasma reagin antibody, [id number] 10:40:00 Test Item Value Reference Range Interpretation Comments rapid plasma reagin antibody, serum REACTIVE NON-REACTIVE A (test code = 5291-0) [facility]inabasophils as percent of blood wsdrxcjrel4766-01-48 10:40:00 Test Item Value Reference Range Interpretation Comments basophils as percent of blood 0.4 % N leukocytes (test code = 707-0) [facility] Carolinaeosinophils as percent of blood wosdrpuctx8396-17-46 10:40:00 Test Item Value Reference Range Interpretation Comments eosinophils as percent of blood 1.2 % N leukocytes (test code = 714-6) [facility] Carolinamonocytes as percent of blood nmfwwefbdd9965-39-35 10:40:00 Test Item Value Reference Range Interpretation Comments monocytes as percent of blood 4.2 % N leukocytes (test code = 5905-5) [facility] Carolinalymphocytes as percent of blood clumyuyxxl0903-47-58 10:40:00 Test Item Value Reference Range Interpretation Comments lymphocytes as percent of blood 18.9 % N leukocytes (test code = 736-9) [facility]inaneutrophils as percent of blood khkbrmxzbm6576-05-80 10:40:00 Test Item Value Reference Range Interpretation Comments neutrophils as percent of blood 75.3 % N leukocytes (test code = 770-8) [facility]inabasophil count, [id number] 10:40:00 Test Item Value Reference Range Interpretation Comments basophil count, absolute (test 33 cells/uL 0-200 N code = 81316-3) [facility] CarolinaAbsolute Eosinophil [id number] 10:40:00 Test Item Value Reference Range Interpretation Comments Absolute Eosinophil count (test 100 cells/mcL 15-500 N code = 88538-5) [facility] CarolinaAbsolute Monocyte [id number] 10:40:00 Test Item Value Reference Range Interpretation Comments Absolute Monocyte count (test 349 cells/mcL 200-950 N code = 05770-2) [facility] CarolinaAbsolute Neutrophil [id number] 10:40:00 Test Item Value Reference Range Interpretation Comments Absolute Neutrophil count 6250 cells/mcL 4526-5790 N (test code = 54290-0) [facility] [id number] 10:40:00 Test Item Value Reference Range Interpretation Comments mean platelet volume (test code = 11.2 fL 7.5-12.5 N 776-5) [facility] Carolinaplatelet [id number] 10:40:00 Test Item Value Reference Range Interpretation Comments platelet count (test code = 230 THOUSAND/UL 140-400 N 777-3) [facility]inared blood cell distribution [id number] 10:40:00 Test Item Value Reference Range Interpretation Comments red blood cell distribution width 13.1 % 11.0-15.0 N (test code = 788-0) [facility] corpus[facility] hemoglobin concentration, [id number] 10:40:00 Test Item Value Reference Range Interpretation Comments mean corpuscular hemoglobin 35.4 G/DL 32.0-36.0 N concentration, RBC (test code = 786-4) [facility]inamean corpuscular hemoglobin, [id number] 10:40:00 Test Item Value Reference Range Interpretation Comments mean corpuscular hemoglobin, RBC 31.2 pg 27.0-33.0 N (test code = 785-6) [facility]inamean corpuscular volume, [id number] 10:40:00 Test Item Value Reference Range Interpretation Comments mean corpuscular volume, RBC (test 88.1 fL 80.0-100.0 N code = 787-2) [facility] Carolinahematocrit, [id number] 10:40:00 Test Item Value Reference Range Interpretation Comments hematocrit, blood (test code = 4544-3) 45.7 % 38.5-50.0 N [facility] Carolinahemoglobin, [id number] 10:40:00 Test Item Value Reference Range Interpretation Comments hemoglobin, blood (test code = 16.2 g/dL 13.2-17.1 N 718-7) [facility] Carolinaerythrocyte (RBC) [id number] 10:40:00 Test Item Value Reference Range Interpretation Comments erythrocyte (RBC) count (test 5.19 MILLION/UL 4.20-5.80 N code = 789-8) [facility]inaleukocyte count, [id number] 10:40:00 Test Item Value Reference Range Interpretation Comments leukocyte count, blood (test 8.3 THOUSAND/UL 3.8-10.8 N code = 6690-2) [facility] Carolinalymphocytes, twhfjcsq3269-20-39 10:40:00 Test Item Value Reference Range Interpretation Comments lymphocytes, absolute (test 1569 CELLS/UL 850-3900 N code = 00941-3) [facility] CarolinaCD4/CD8 [id number] 10:40:00 Test Item Value Reference Range Interpretation Comments CD4/CD8 ratio (test code 1.52 (unknown unit) 0.86-5.00 N = 39796) [facility] Carolinaabsolute [id number] 10:40:00 Test Item Value Reference Range Interpretation Comments absolute CD8 (test code = 436 (unknown unit) 180-1170 N 17103) [facility] CarolinaT-suppressor cells (CD8) as percent of blood lymphocytes 2018-10-25 10:40:00 Test Item Value Reference Range Interpretation Comments T-suppressor cells (CD8) as percent of 29 % 12-42 N blood lymphocytes (test code = 3517) [facility] Carolinaalanine aminotransferase (SGPT), [id number] 10:40:00 Test Item Value Reference Range Interpretation Comments alanine aminotransferase (SGPT), serum 79 1/L 9-46 H (test code = 1742-6) [facility] Carolinaaspartate aminotransferase (SGOT), kjotz5678-68-82 10:40:00 Test Item Value Reference Range Interpretation Comments aspartate aminotransferase (SGOT), 51 1/L 10-40 H serum (test code = 1920-8) [facility] Carolinaalkaline phosphatase, [id number] 10:40:00 Test Item Value Reference Range Interpretation Comments alkaline phosphatase, serum (test code 87 1/L 40-115 N = 1783-0) [facility] Carolinabilirubin, serum, [id number] 10:40:00 Test Item Value Reference Range Interpretation Comments bilirubin, serum, total (test code 0.7 mg/dL 0.2-1.2 N = 1975-2) [facility] Carolinaalbumin/globulin ratio, [id number] 10:40:00 Test Item Value Reference Range Interpretation Comments albumin/globulin ratio, serum 1.7 (calc) 1.0-2.5 N (test code = 1759-0) [facility] Carolinaglobulins, serum, [id number] 10:40:00 Test Item Value Reference Range Interpretation Comments globulins, serum, total (test 2.6 G/DL (CALC) 1.9-3.7 N code = 2336-6) [facility] Carolinaalbumin, [id number] 10:40:00 Test Item Value Reference Range Interpretation Comments albumin, serum (test code = 1751-7) 4.4 g/dL 3.6-5.1 N [facility]inaprotein, total, [id number] 10:40:00 Test Item Value Reference Range Interpretation Comments protein, total, serum (test code = 7.0 g/dL 6.1-8.1 N 2885-2) [facility] Carolinacalcium, [id number] 10:40:00 Test Item Value Reference Range Interpretation Comments calcium, serum (test code = 1999-8) 9.1 mg/dL 8.6-10.3 N [facility]inacarbon dioxide, venous [id number] 10:40:00 Test Item Value Reference Range Interpretation Comments carbon dioxide, venous blood (test 24 mmol/L 20-32 N code = 2026-1) [facility]inachloride, [id number] 10:40:00 Test Item Value Reference Range Interpretation Comments chloride, serum (test code = 105 mmol/L 98-110 N 2074-0) [facility]inapotassium, [id number] 10:40:00 Test Item Value Reference Range Interpretation Comments potassium, serum (test code = 3.9 mmol/L 3.5-5.3 N 2823-3) [facility] Carolinasodium, [id number] 10:40:00 Test Item Value Reference Range Interpretation Comments sodium, serum (test code = 2951-2) 139 mmol/L 135-146 N [facility] Carolinaurea nitrogen/creatinine ratio, [id number] 10:40:00 Test Item Value Reference Range Interpretation Comments urea NOT APPLICABLE (calc) 6-22 nitrogen/creatinine ratio, serum (test code = 3097-3) [facility] CarolinaeGFR if Rtnpoqnw5559-59-75 10:40:00 Test Item Value Reference Range Interpretation Comments eGFR if 114 See_Comment N [Automated message] [place] (test mL/min/{1.73 The system ich code = 11418-2) m2} generated th is result transmitted ref erence range: > OR = 6 0. The reference range was not used to int erpret this result as normal/abnormal . [facility] CarolinaEstimated Glomerular Filtration Rate (calc)2018-10-25 10:40:00 Test Item Value Reference Range Interpretation Comments Estimated Glomerular 98 See_Comment N [Autom ated message] Filtration Rate mL/min/{1.73 The system w [facility] (calc) (test code = m2} generate d this 78034-2) result transmit stefany reference range : > OR = 60. The reference range was not used to interpret this result as normal/abnormal . [facility]inacreatinine, [id number] 10:40:00 Test Item Value Reference Range Interpretation Comments creatinine, serum (test code = 0.96 mg/dL 0.60-1.35 N 2160-0) [facility] Carolinaurea nitrogen, [id number] 10:40:00 Test Item Value Reference Range Interpretation Comments urea nitrogen, blood (test code = 10 mg/dL 7-25 N 3094-0) [facility] Carolinablood glucose, [id number] 10:40:00 Test Item Value Reference Range Interpretation Comments blood glucose, random (test code = 217 mg/dL 65-99 H 2339-0) [facility] Carolinacholesterol, non-HDL, [id number] 10:40:00 Test Item Value Reference Range Interpretation Comments cholesterol, non-HDL, total 154 MG/DL (CALC) <130 H (test code = 73671) [facility] Carolinacholesterol/HDL ratio, serum, [id number] 10:40:00 Test Item Value Reference Range Interpretation Comments cholesterol/HDL ratio, serum, 7.4 (calc) <5.0 H percent (test code = 2404) [facility] CarolinaQuantiferon Gold TB blood test for tuberculosis screening 2018-05-22 09:03:00 Test Item Value Reference Range Interpretation Comments Quantiferon Gold TB blood test for Negative Negative tuberculosis screening (test code = 83614-3) [facility] CarolinaHIV-1RNA, serum, by PCR, mmdvoxohoohw6856-41-66 08:46:00 Test Item Value Reference Range Interpretation Comments HIV-1RNA, serum, by PCR, <20 copies/mL quantitative (test code = 36246) [facility] CarolinaTreponema pallidum antibodies, by particle agglutination 2018-05-21 08:44:00 Test Item Value Reference Range Interpretation Comments Treponema pallidum antibodies, by Positive Negative A particle agglutination (test code = 09245-6) [facility] Carolinahemoglobin A1C, blood, as % of total ratqjnkfex8004-42-03 08:44:00 Test Item Value Reference Range Interpretation Comments hemoglobin A1C, blood, as % of total 6.4 % 4.8-5.6 H hemoglobin (test code = 4548-4) [facility] CarolinaLDL cholesterol, [id number] 08:44:00 Test Item Value Reference Range Interpretation Comments LDL cholesterol, serum (test TRIGHI mg/dL 0-99 code = 2089-1) [facility] CarolinaHDL cholesterol, [id number] 08:44:00 Test Item Value Reference Range Interpretation Comments HDL cholesterol, serum (test code = 22 mg/dL >39 L 5-9) [facility] Carolinatriglyceride, serum, [id number] 08:44:00 Test Item Value Reference Range Interpretation Comments triglyceride, serum, fasting (test 401 mg/dL 0-149 H code = 2571-8) [facility] Carolinacholesterol, [id number] 08:44:00 Test Item Value Reference Range Interpretation Comments cholesterol, serum (test code = 159 mg/dL 158-575 5535-3) [facility] CarolinaT-helper cells (CD4) as percent of blood lymphocytes 2018-05-21 08:44:00 Test Item Value Reference Range Interpretation Comments T-helper cells (CD4) as percent of 47.1 % 30.8-58.5 blood lymphocytes (test code = 8123-2) [facility] CarolinaT-helper cells (CD4) [id number] 08:44:00 Test Item Value Reference Range Interpretation Comments T-helper cells (CD4) count (test 1130 /UL 359-1519 code = 82169-8) [facility] Carolinarapid plasma reagin antibody, [id number] 08:44:00 Test Item Value Reference Range Interpretation Comments rapid plasma reagin 1:2 See_Comment H [Automa stefany message] The antibody, serum (test system which generated code = 5291-0) this result t ransmitted reference range : NonRea<1:1. The reference range was not u sed to interpret this result as normal/abnormal . [facility] CarolinaHepatitis B virus DNA, by Polymerase Chain Reaction 2018-05-21 08:44:00 Test Item Value Reference Range Interpretation Comments Hepatitis B virus DNA, HBV DNA not detected by Polymerase Chain Reaction (test code = 34218) [facility] Carolinavery low density kypptriyhddr8421-13-75 08:44:00 Test Item Value Reference Range Interpretation Comments very low density lipoproteins VLDLCH mg/dL 5-40 (test code = 2091-7) [facility] Healthalanine aminotransferase (SGPT), [id number] 08:44:00 Test Item Value Reference Range Interpretation Comments alanine aminotransferase (SGPT), 121 1/L 0-44 H serum (test code = 1742-6) [facility] Carolinaaspartate aminotransferase (SGOT), [id number] 08:44:00 Test Item Value Reference Range Interpretation Comments aspartate aminotransferase (SGOT), 41 1/L 0-40 H serum (test code = 1920-8) [facility] Carolinaalkaline phosphatase, [id number] 08:44:00 Test Item Value Reference Range Interpretation Comments alkaline phosphatase, serum (test code 85 1/L 39-117 = 1783-0) [facility] Carolinabilirubin, serum, [id number] 08:44:00 Test Item Value Reference Range Interpretation Comments bilirubin, serum, total (test code 0.3 mg/dL 0.0-1.2 = 1975-2) [facility] Healthalbumin/globulin ratio, [id number] 08:44:00 Test Item Value Reference Range Interpretation Comments albumin/globulin ratio, 1.6 (unknown unit) 1.2-2.2 serum (test code = 1759-0) [facility] Healthglobulin, [id number] 08:44:00 Test Item Value Reference Range Interpretation Comments globulin, serum (test code 2.8 (unknown unit) 1.5-4.5 = 2336-6) [facility] Healthalbumin, [id number] 08:44:00 Test Item Value Reference Range Interpretation Comments albumin, serum (test code = 1751-7) 4.5 g/dL 3.5-5.5 [facility]inaprotein, total, [id number] 08:44:00 Test Item Value Reference Range Interpretation Comments protein, total, serum (test code = 7.3 g/dL 6.0-8.5 2885-2) [facility] Carolinacalcium, [id number] 08:44:00 Test Item Value Reference Range Interpretation Comments calcium, serum (test code = 1999-8) 9.3 mg/dL 8.7-10.2 [facility] Carolinacarbon dioxide, venous [id number] 08:44:00 Test Item Value Reference Range Interpretation Comments carbon dioxide, venous blood (test 21 mmol/L 20-29 code = 2027-1) [facility] Healthchloride, [id number] 08:44:00 Test Item Value Reference Range Interpretation Comments chloride, serum (test code = 102 mmol/L 96-106 2075-0) [facility] Healthpotassium, [id number] 08:44:00 Test Item Value Reference Range Interpretation Comments potassium, serum (test code = 3.9 mmol/L 3.5-5.2 2823-3) [facility] Carolinasodium, [id number] 08:44:00 Test Item Value Reference Range Interpretation Comments sodium, serum (test code = 2951-2) 141 mmol/L 134-144 [facility] Carolinaurea nitrogen/creatinine ratio, [id number] 08:44:00 Test Item Value Reference Range Interpretation Comments urea nitrogen/creatinine 11 (unknown unit) 9-20 ratio, serum (test code = 3097-3) [facility] HealtheGFR if Ruikqasp5102-70-49 08:44:00 Test Item Value Reference Range Interpretation Comments eGFR if 101 mL/min/{1.73 m2} >59 (test code = 57024-3) [facility] CarolinaEstimated Glomerular Filtration Rate (calc)2018-05-21 08:44:00 Test Item Value Reference Range Interpretation Comments Estimated Glomerular 87 mL/min/{1.73 m2} >59 Filtration Rate (calc) (test code = 07091-1) [facility]inacreatinine, [id number] 08:44:00 Test Item Value Reference Range Interpretation Comments creatinine, serum (test code = 1.07 mg/dL 0.76-1.27 2160-0) [facility] Carolinaurea nitrogen, [id number] 08:44:00 Test Item Value Reference Range Interpretation Comments urea nitrogen, blood (test code = 12 mg/dL 6-20 3094-0) [facility] Carolinablood glucose, sfomtz5771-48-90 08:44:00 Test Item Value Reference Range Interpretation Comments blood glucose, random (test code = 315 mg/dL 65-99 H 2339-0) [facility] Carolinaimmature granulocytes, percentage of total cells, blood 2018-05-21 08:44:00 Test Item Value Reference Range Interpretation Comments immature granulocytes, percentage of 0 % total cells, blood (test code = 59826-3) [facility] Healthbasophil count, [id number] 08:44:00 Test Item Value Reference Range Interpretation Comments basophil count, absolute (test 0.0 x10E3/uL 0.0-0.2 code = 47354-1) [facility] HealthEosinophil Absolute [id number] 08:44:00 Test Item Value Reference Range Interpretation Comments Eosinophil Absolute Count (test 0.2 X10E3/UL 0.0-0.4 code = 73698-5) [facility] Healthmonocyte count, blood, [id number] 08:44:00 Test Item Value Reference Range Interpretation Comments monocyte count, blood, automated 0.3 X10E3/UL 0.1-0.9 (test code = 742-7) [facility] Carolinalymphocyte count, blood, catzlaaek8166-65-11 08:44:00 Test Item Value Reference Range Interpretation Comments lymphocyte count, blood, 2.4 X10E3/UL 0.7-3.1 automated (test code = 731-0) [facility] HealthAbsolute Dxfrjkovkbb7113-81-65 08:44:00 Test Item Value Reference Range Interpretation Comments Absolute Neutrophils (test code 7.3 X10E3/UL 1.4-7.0 H = 21986-2) [facility]inabasophils as percent of blood mngmehioxs4217-21-72 08:44:00 Test Item Value Reference Range Interpretation Comments basophils as percent of blood 0 % leukocytes (test code = 707-0) [facility] Healtheosinophils as percent of blood dvrzpdmvkm1765-52-82 08:44:00 Test Item Value Reference Range Interpretation Comments eosinophils as percent of blood 2 % leukocytes (test code = 713-8) [facility] Healthmonocytes as percent of blood mdnubggcxi1273-98-41 08:44:00 Test Item Value Reference Range Interpretation Comments monocytes as percent of blood 3 % leukocytes (test code = 5905-5) [facility] Carolinalymphocytes as percent of blood plmfnsihtg0878-56-19 08:44:00 Test Item Value Reference Range Interpretation Comments lymphocytes as percent of blood 24 % leukocytes (test code = 736-9) [facility]inaneutrophils as percent of blood eewmjaewqu1088-59-97 08:44:00 Test Item Value Reference Range Interpretation Comments neutrophils as percent of blood 71 % leukocytes (test code = 770-8) [facility] Carolinaplatelet [id number] 08:44:00 Test Item Value Reference Range Interpretation Comments platelet count (test code = 217 X10E3/UL 150-379 777-3) [facility] Carolinared blood cell distribution [id number] 08:44:00 Test Item Value Reference Range Interpretation Comments red blood cell distribution width 14.2 % 12.3-15.4 (test code = 788-0) [facility] ([facility]) corpuscular hemoglobin concentration, [id number] 08:44:00 Test Item Value Reference Range Interpretation Comments mean corpuscular hemoglobin 34.6 G/DL 31.5-35.7 concentration, RBC (test code = 786-4) [facility] ([facility]) corpuscular hemoglobin, [id number] 08:44:00 Test Item Value Reference Range Interpretation Comments mean corpuscular hemoglobin, RBC 32.6 pg 26.6-33.0 (test code = 785-6) [facility] ([facility]) corpuscular volume, [id number] 08:44:00 Test Item Value Reference Range Interpretation Comments mean corpuscular volume, RBC (test code 94 fL 79-97 = 787-2) [facility] Carolinahematocrit, glays6967-38-37 08:44:00 Test Item Value Reference Range Interpretation Comments hematocrit, blood (test code = 4544-3) 47.4 % 37.5-51.0 [facility] Carolinahemoglobin, [id number] 08:44:00 Test Item Value Reference Range Interpretation Comments hemoglobin, blood (test code = 16.4 g/dL 13.0-17.7 718-7) [facility] Carolinaerythrocyte (RBC) [id number] 08:44:00 Test Item Value Reference Range Interpretation Comments erythrocyte (RBC) count (test 5.03 X10E6/UL 4.14-5.80 code = 789-8) [facility]inaleukocyte count, krvgv7621-14-15 08:44:00 Test Item Value Reference Range Interpretation Comments leukocyte count, blood (test 10.2 X10E3/UL 3.4-10.8 code = 6690-2) [facility] CarolinaCD4/CD8 [id number] 08:44:00 Test Item Value Reference Range Interpretation Comments CD4/CD8 ratio (test code 1.64 (unknown unit) 0.92-3.72 = 81443) [facility] CarolinaT-suppressor cells (CD8) as percent of blood lymphocytes 2018-05-21 08:44:00 Test Item Value Reference Range Interpretation Comments T-suppressor cells (CD8) as percent of 28.7 % 12.0-35.5 blood lymphocytes (test code = 3517) [facility] Carolinaabsolute [id number] 08:44:00 Test Item Value Reference Range Interpretation Comments absolute CD8 (test code = 689 (unknown unit) 154-123 52838) [facility] CarolinaTreponema pallidum antibodies, by particle agglutination 2017-11-24 11:58:00 Test Item Value Reference Range Interpretation Comments Treponema pallidum antibodies, by Positive Negative A particle agglutination (test code = 00800-3) [facility] Carolinahemoglobin A1C, blood, as % of total lbemjqcejp3594-86-10 11:58:00 Test Item Value Reference Range Interpretation Comments hemoglobin A1C, blood, as % of total 6.2 % 4.8-5.6 H hemoglobin (test code = 4548-4) [facility] CarolinaLDL cholesterol, nymjm8604-49-43 11:58:00 Test Item Value Reference Range Interpretation Comments LDL cholesterol, serum (test TRIGHI mg/dL 0-99 code = 2089-1) [facility] CarolinaHDL cholesterol, [id number] 11:58:00 Test Item Value Reference Range Interpretation Comments HDL cholesterol, serum (test code = 22 mg/dL >39 L 5-9) [facility]inatriglyceride, serum, [id number] 11:58:00 Test Item Value Reference Range Interpretation Comments triglyceride, serum, fasting (test 471 mg/dL 0-149 H code = 2571-8) [facility]inacholesterol, [id number] 11:58:00 Test Item Value Reference Range Interpretation Comments cholesterol, serum (test code = 159 mg/dL 822-076 1270-3) [facility] CarolinaT-helper cells (CD4) as percent of blood lymphocytes 2017-11-24 11:58:00 Test Item Value Reference Range Interpretation Comments T-helper cells (CD4) as percent of 44.9 % 30.8-58.5 blood lymphocytes (test code = 8123-2) [facility] CarolinaT-helper cells (CD4) [id number] 11:58:00 Test Item Value Reference Range Interpretation Comments T-helper cells (CD4) count (test code 853 /UL 359-1519 = 24640-8) [facility] Carolinahepatitis C antibody, tnudd1418-26-08 11:58:00 Test Item Value Reference Range Interpretation Comments hepatitis C antibody, 0.1 (unknown unit) 0.0-0.9 serum (test code = 5199-5) [facility] Carolinarapid plasma reagin antibody, [id number] 11:58:00 Test Item Value Reference Range Interpretation Comments rapid plasma reagin 1:2 See_Comment H [Automa stefany message] The antibody, serum (test system which generated code = 5291-0) this result t ransmitted reference range : NonRea<1:1. The reference range was not u sed to interpret this result as normal/abnormal . [facility] CarolinaHIV-1RNA, serum, by PCR, [id number] 11:58:00 Test Item Value Reference Range Interpretation Comments HIV-1RNA, serum, by PCR, <20 copies/mL quantitative (test code = 29824) [facility] Carolinavery low density ctjzoexecmnj3073-75-98 11:58:00 Test Item Value Reference Range Interpretation Comments very low density lipoproteins VLDLCH mg/dL 5-40 (test code = 2091-7) [facility] Carolinaalanine aminotransferase (SGPT), xfjze3842-63-71 11:58:00 Test Item Value Reference Range Interpretation Comments alanine aminotransferase (SGPT), serum 92 1/L 0-44 H (test code = 1742-6) [facility] Carolinaaspartate aminotransferase (SGOT), [id number] 11:58:00 Test Item Value Reference Range Interpretation Comments aspartate aminotransferase (SGOT), 49 1/L 0-40 H serum (test code = 1920-8) [facility] Healthalkaline phosphatase, [id number] 11:58:00 Test Item Value Reference Range Interpretation Comments alkaline phosphatase, serum (test code 79 1/L 39-117 = 1783-0) [facility] Healthbilirubin, serum, [id number] 11:58:00 Test Item Value Reference Range Interpretation Comments bilirubin, serum, total (test code 0.4 mg/dL 0.0-1.2 = 1975-2) [facility] Healthalbumin/globulin ratio, [id number] 11:58:00 Test Item Value Reference Range Interpretation Comments albumin/globulin ratio, 1.5 (unknown unit) 1.2-2.2 serum (test code = 1759-0) [facility] Healthglobulin, [id number] 11:58:00 Test Item Value Reference Range Interpretation Comments globulin, serum (test code 3.1 (unknown unit) 1.5-4.5 = 2336-6) [facility] Healthalbumin, [id number] 11:58:00 Test Item Value Reference Range Interpretation Comments albumin, serum (test code = 1751-7) 4.6 g/dL 3.5-5.5 [facility]inaprotein, total, [id number] 11:58:00 Test Item Value Reference Range Interpretation Comments protein, total, serum (test code = 7.7 g/dL 6.0-8.5 2885-2) [facility]inacalcium, [id number] 11:58:00 Test Item Value Reference Range Interpretation Comments calcium, serum (test code = 1999-8) 9.6 mg/dL 8.7-10.2 [facility]inacarbon dioxide, venous [id number] 11:58:00 Test Item Value Reference Range Interpretation Comments carbon dioxide, venous blood (test 27 mmol/L - code = 2026-1) [facility]inachloride, axhys6060-27-83 11:58:00 Test Item Value Reference Range Interpretation Comments chloride, serum (test code = 100 mmol/L 96-106 2075-0) [facility]inapotassium, [id number] 11:58:00 Test Item Value Reference Range Interpretation Comments potassium, serum (test code = 4.6 mmol/L 3.5-5.2 2823-3) [facility]inasodium, lbaia0843-08-17 11:58:00 Test Item Value Reference Range Interpretation Comments sodium, serum (test code = 2951-2) 143 mmol/L 134-144 [facility] Carolinaurea nitrogen/creatinine ratio, khbuj1122-20-53 11:58:00 Test Item Value Reference Range Interpretation Comments urea nitrogen/creatinine 12 (unknown unit) 9-20 ratio, serum (test code = 3097-3) [facility] HealtheGFR if Xwrgentj3692-88-58 11:58:00 Test Item Value Reference Range Interpretation Comments eGFR if 99 mL/min/{1.73 m2} >59 (test code = 04215-3) [facility] CarolinaEstimated Glomerular Filtration Rate (calc)2017-11-24 11:58:00 Test Item Value Reference Range Interpretation Comments Estimated Glomerular 86 mL/min/{1.73 m2} >59 Filtration Rate (calc) (test code = 10398-4) [facility]inacreatinine, [id number] 11:58:00 Test Item Value Reference Range Interpretation Comments creatinine, serum (test code = 1.08 mg/dL 0.76-1.27 2160-0) [facility] Carolinaurea nitrogen, [id number] 11:58:00 Test Item Value Reference Range Interpretation Comments urea nitrogen, blood (test code = 13 mg/dL 6-20 3094-0) [facility]inablood glucose, joacrs3429-81-14 11:58:00 Test Item Value Reference Range Interpretation Comments blood glucose, random (test code = 178 mg/dL 65-99 H 2339-0) [facility] Carolinaimmature granulocytes, percentage of total cells, blood 2017-11-24 11:58:00 Test Item Value Reference Range Interpretation Comments immature granulocytes, percentage of 1 % total cells, blood (test code = 75741-2) [facility] Carolinabasophil count, stomwjlq8385-16-78 11:58:00 Test Item Value Reference Range Interpretation Comments basophil count, absolute (test 0.0 x10E3/uL 0.0-0.2 code = 74074-6) [facility] CarolinaEosinophil Absolute Wnyzb4085-49-33 11:58:00 Test Item Value Reference Range Interpretation Comments Eosinophil Absolute Count (test 0.1 X10E3/UL 0.0-0.4 code = 02007-7) [facility] Healthmonocyte count, blood, tlgwhsrjs9353-50-70 11:58:00 Test Item Value Reference Range Interpretation Comments monocyte count, blood, automated 0.3 X10E3/UL 0.1-0.9 (test code = 742-7) [facility] Carolinalymphocyte count, blood, gcvghlqmr6544-51-61 11:58:00 Test Item Value Reference Range Interpretation Comments lymphocyte count, blood, 1.9 X10E3/UL 0.7-3.1 automated (test code = 731-0) [facility] CarolinaAbsolute Swluacperzk9578-90-59 11:58:00 Test Item Value Reference Range Interpretation Comments Absolute Neutrophils (test code 4.7 X10E3/UL 1.4-7.0 = 25491-4) [facility]inabasophils as percent of blood komojgaepo4161-97-77 11:58:00 Test Item Value Reference Range Interpretation Comments basophils as percent of blood 0 % leukocytes (test code = 707-0) [facility] Carolinaeosinophils as percent of blood oompeleyys0240-91-13 11:58:00 Test Item Value Reference Range Interpretation Comments eosinophils as percent of blood 2 % leukocytes (test code = 713-8) [facility] Healthmonocytes as percent of blood qwohxnykke0648-63-56 11:58:00 Test Item Value Reference Range Interpretation Comments monocytes as percent of blood 4 % leukocytes (test code = 5905-5) [facility] Carolinalymphocytes as percent of blood kmvodclswu0711-69-51 11:58:00 Test Item Value Reference Range Interpretation Comments lymphocytes as percent of blood 26 % leukocytes (test code = 736-9) [facility] Carolinaneutrophils as percent of blood uyinxzuqxw9121-45-77 11:58:00 Test Item Value Reference Range Interpretation Comments neutrophils as percent of blood 67 % leukocytes (test code = 770-8) [facility] Carolinaplatelet sphky3163-23-81 11:58:00 Test Item Value Reference Range Interpretation Comments platelet count (test code = 247 X10E3/UL 150-379 777-3) [facility]inared blood cell distribution [id number] 11:58:00 Test Item Value Reference Range Interpretation Comments red blood cell distribution width 13.7 % 12.3-15.4 (test code = 788-0) [facility] ([facility]) corpuscular hemoglobin concentration, [id number] 11:58:00 Test Item Value Reference Range Interpretation Comments mean corpuscular hemoglobin 34.8 G/DL 31.5-35.7 concentration, RBC (test code = 786-4) [facility], [id number] 11:58:00 Test Item Value Reference Range Interpretation Comments mean corpuscular hemoglobin, RBC 31.4 pg 26.6-33.0 (test code = 785-6) [facility] ([facility]) corpuscular volume, [id number] 11:58:00 Test Item Value Reference Range Interpretation Comments mean corpuscular volume, RBC (test code 90 fL 79-97 = 787-2) [facility] Carolinahematocrit, yeeus4501-88-83 11:58:00 Test Item Value Reference Range Interpretation Comments hematocrit, blood (test code = 4544-3) 47.7 % 37.5-51.0 [facility] Carolinahemoglobin, [id number] 11:58:00 Test Item Value Reference Range Interpretation Comments hemoglobin, blood (test code = 16.6 g/dL 13.0-17.7 718-7) [facility] Carolinaerythrocyte (RBC) cvdib2580-36-98 11:58:00 Test Item Value Reference Range Interpretation Comments erythrocyte (RBC) count (test 5.29 X10E6/UL 4.14-5.80 code = 789-8) [facility]inaleukocyte count, iuqzq2434-72-81 11:58:00 Test Item Value Reference Range Interpretation Comments leukocyte count, blood (test 7.1 X10E3/UL 3.4-10.8 code = 6690-2) [facility] CarolinaCD4/CD8 [id number] 11:58:00 Test Item Value Reference Range Interpretation Comments CD4/CD8 ratio (test code 1.39 (unknown unit) 0.92-3.72 = 18797) [facility] CarolinaT-suppressor cells (CD8) as percent of blood lymphocytes 2017-11-24 11:58:00 Test Item Value Reference Range Interpretation Comments T-suppressor cells (CD8) as percent of 32.4 % 12.0-35.5 blood lymphocytes (test code = 3517) [facility] Healthabsolute [id number] 11:58:00 Test Item Value Reference Range Interpretation Comments absolute CD8 (test code = 616 (unknown unit) [phone]) [facility] CarolinaTreponema pallidum antibodies, by particle agglutination 2017-06-16 09:37:00 Test Item Value Reference Range Interpretation Comments Treponema pallidum antibodies, by Positive Negative A particle agglutination (test code = 82175-8) [facility] Carolinahemoglobin A1C, blood, as % of total fmldkyopay0895-86-46 09:37:00 Test Item Value Reference Range Interpretation Comments hemoglobin A1C, blood, as % of total 6.8 % 4.8-5.6 H hemoglobin (test code = 4548-4) [facility] CarolinaLDL cholesterol, dimkx1680-31-81 09:37:00 Test Item Value Reference Range Interpretation Comments LDL cholesterol, serum (test code = 68 mg/dL 0-99 2088-1) [facility] CarolinaHDL cholesterol, [id number] 09:37:00 Test Item Value Reference Range Interpretation Comments HDL cholesterol, serum (test code = 25 mg/dL >39 L 5-9) [facility]inatriglyceride, serum, gukoxhf1510-01-76 09:37:00 Test Item Value Reference Range Interpretation Comments triglyceride, serum, fasting (test 390 mg/dL 0-149 H code = 2571-8) [facility]inacholesterol, jbfjw5470-90-50 09:37:00 Test Item Value Reference Range Interpretation Comments cholesterol, serum (test code = 171 mg/dL 108-251 3736-3) [facility] CarolinaT-helper cells (CD4) as percent of blood lymphocytes 2017-06-16 09:37:00 Test Item Value Reference Range Interpretation Comments T-helper cells (CD4) as percent of 41.9 % 30.8-58.5 blood lymphocytes (test code = 8123-2) [facility] CarolinaT-helper cells (CD4) pixcp3635-97-17 09:37:00 Test Item Value Reference Range Interpretation Comments T-helper cells (CD4) count (test code 880 /UL 359-1519 = 03696-3) [facility] Carolinarapid plasma reagin antibody, sxguk7771-85-97 09:37:00 Test Item Value Reference Range Interpretation Comments rapid plasma reagin 1:4 See_Comment H [Automa stefany message] The antibody, serum (test system which generated code = 5291-0) this result t ransmitted reference range : NonRea<1:1. The reference range was not u sed to interpret this result as normal/abnormal . [facility] CarolinaHIV-1RNA, serum, by PCR, bgujcbuwhwjp6153-13-90 09:37:00 Test Item Value Reference Range Interpretation Comments HIV-1RNA, serum, by PCR, quantitative 40 /mL (test code = 29143) [facility] low density bcljrftytgfw8137-55-19 09:37:00 Test Item Value Reference Range Interpretation Comments very low density lipoproteins (test 78 mg/dL 5-40 H code = 2091-7) [facility] Carolinaalanine aminotransferase (SGPT), [id number] 09:37:00 Test Item Value Reference Range Interpretation Comments alanine aminotransferase (SGPT), serum 77 1/L 0-44 H (test code = 1742-6) [facility] Carolinaaspartate aminotransferase (SGOT), [id number] 09:37:00 Test Item Value Reference Range Interpretation Comments aspartate aminotransferase (SGOT), 46 1/L 0-40 H serum (test code = 1920-8) [facility] Carolinaalkaline phosphatase, [id number] 09:37:00 Test Item Value Reference Range Interpretation Comments alkaline phosphatase, serum (test code 89 1/L 39-117 = 1783-0) [facility] Carolinabilirubin, serum, [id number] 09:37:00 Test Item Value Reference Range Interpretation Comments bilirubin, serum, total (test code 0.4 mg/dL 0.0-1.2 = 1975-2) [facility] Carolinaalbumin/globulin ratio, [id number] 09:37:00 Test Item Value Reference Range Interpretation Comments albumin/globulin ratio, 1.7 (unknown unit) 1.2-2.2 serum (test code = 1759-0) [facility]inaglobulin, [id number] 09:37:00 Test Item Value Reference Range Interpretation Comments globulin, serum (test code 2.6 (unknown unit) 1.5-4.5 = 2336-6) [facility] Healthalbumin, [id number] 09:37:00 Test Item Value Reference Range Interpretation Comments albumin, serum (test code = 1751-7) 4.4 g/dL 3.5-5.5 [facility] Healthprotein, total, ovkva3216-07-85 09:37:00 Test Item Value Reference Range Interpretation Comments protein, total, serum (test code = 7.0 g/dL 6.0-8.5 2885-2) [facility] Healthcalcium, [id number] 09:37:00 Test Item Value Reference Range Interpretation Comments calcium, serum (test code = 2000-8) 9.3 mg/dL 8.7-10.2 [facility]inacarbon dioxide, venous mgmkc3444-73-91 09:37:00 Test Item Value Reference Range Interpretation Comments carbon dioxide, venous blood (test 25 mmol/L 18-29 code = 7-1) [facility] Healthchloride, [id number] 09:37:00 Test Item Value Reference Range Interpretation Comments chloride, serum (test code = 102 mmol/L 96-106 5-0) [facility]inapotassium, paxlx1177-55-89 09:37:00 Test Item Value Reference Range Interpretation Comments potassium, serum (test code = 4.6 mmol/L 3.5-5.2 2823-3) [facility]inasodium, gupld4046-40-42 09:37:00 Test Item Value Reference Range Interpretation Comments sodium, serum (test code = 2951-2) 142 mmol/L 134-144 [facility] Carolinaurea nitrogen/creatinine ratio, cgabr6376-97-23 09:37:00 Test Item Value Reference Range Interpretation Comments urea nitrogen/creatinine 9 (unknown unit) 9-20 ratio, serum (test code = 3097-3) [facility] HealtheGFR if Xqtqykvr2382-84-05 09:37:00 Test Item Value Reference Range Interpretation Comments eGFR if 127 mL/min/{1.73 m2} >59 (test code = 21633-7) [facility] CarolinaEstimated Glomerular Filtration Rate (calc)2017-06-16 09:37:00 Test Item Value Reference Range Interpretation Comments Estimated Glomerular 110 mL/min/{1.73 m2} >59 Filtration Rate (calc) (test code = 63415-8) [facility]inacreatinine, eypgq1419-12-40 09:37:00 Test Item Value Reference Range Interpretation Comments creatinine, serum (test code = 0.86 mg/dL 0.76-1.27 2160-0) [facility] Carolinaurea nitrogen, dhmxc5975-61-43 09:37:00 Test Item Value Reference Range Interpretation Comments urea nitrogen, blood (test code = 8 mg/dL 6-20 3094-0) [facility]inablood glucose, xrqoba1149-57-16 09:37:00 Test Item Value Reference Range Interpretation Comments blood glucose, random (test code = 236 mg/dL 65-99 H 2339-0) [facility] Carolinaimmature granulocytes, percentage of total cells, blood 2017-06-16 09:37:00 Test Item Value Reference Range Interpretation Comments immature granulocytes, percentage of 0 % total cells, blood (test code = 52906-5) [facility] Carolinabasophil count, ppuorzjx5910-48-43 09:37:00 Test Item Value Reference Range Interpretation Comments basophil count, absolute (test 0.0 x10E3/uL 0.0-0.2 code = 53235-3) [facility] CarolinaEosinophil Absolute Moclt4527-69-64 09:37:00 Test Item Value Reference Range Interpretation Comments Eosinophil Absolute Count (test 0.2 X10E3/UL 0.0-0.4 code = 95011-9) [facility] Carolinamonocyte count, blood, jwhyzxfay9015-38-20 09:37:00 Test Item Value Reference Range Interpretation Comments monocyte count, blood, automated 0.3 X10E3/UL 0.1-0.9 (test code = 742-7) [facility] Carolinalymphocyte count, blood, pgoeecfeq4718-95-32 09:37:00 Test Item Value Reference Range Interpretation Comments lymphocyte count, blood, 2.1 X10E3/UL 0.7-3.1 automated (test code = 731-0) [facility] CarolinaAbsolute Lfqhmzrbuoh2628-53-74 09:37:00 Test Item Value Reference Range Interpretation Comments Absolute Neutrophils (test code 5.2 X10E3/UL 1.4-7.0 = 12551-0) [facility]inabasophils as percent of blood wjjrfdgadf2940-50-34 09:37:00 Test Item Value Reference Range Interpretation Comments basophils as percent of blood 1 % leukocytes (test code = 707-0) [facility] Carolinaeosinophils as percent of blood dstdexvlnx5520-18-99 09:37:00 Test Item Value Reference Range Interpretation Comments eosinophils as percent of blood 2 % leukocytes (test code = 713-8) [facility] Healthmonocytes as percent of blood qqdfzulbme5223-59-31 09:37:00 Test Item Value Reference Range Interpretation Comments monocytes as percent of blood 4 % leukocytes (test code = 5905-5) [facility] Carolinalymphocytes as percent of blood akvqutfskn6370-98-85 09:37:00 Test Item Value Reference Range Interpretation Comments lymphocytes as percent of blood 26 % leukocytes (test code = 736-9) [facility] Carolinaneutrophils as percent of blood teydptjtnr9789-69-95 09:37:00 Test Item Value Reference Range Interpretation Comments neutrophils as percent of blood 67 % leukocytes (test code = 770-8) [facility] Carolinaplatelet jtprn5473-27-72 09:37:00 Test Item Value Reference Range Interpretation Comments platelet count (test code = 239 X10E3/UL 150-379 777-3) [facility] Carolinared blood cell distribution rztni1940-14-85 09:37:00 Test Item Value Reference Range Interpretation Comments red blood cell distribution width 13.0 % 12.3-15.4 (test code = 788-0) [facility] corpuscular hemoglobin concentration, [id number] 09:37:00 Test Item Value Reference Range Interpretation Comments mean corpuscular hemoglobin 35.0 G/DL 31.5-35.7 concentration, RBC (test code = 786-4) [facility]) corpuscular hemoglobin, [id number] 09:37:00 Test Item Value Reference Range Interpretation Comments mean corpuscular hemoglobin, RBC 31.1 pg 26.6-33.0 (test code = 785-6) [facility], [id number] 09:37:00 Test Item Value Reference Range Interpretation Comments mean corpuscular volume, RBC (test code 89 fL 79-97 = 787-2) [facility] Carolinahematocrit, [id number] 09:37:00 Test Item Value Reference Range Interpretation Comments hematocrit, blood (test code = 4544-3) 46.9 % 37.5-51.0 [facility] Carolinahemoglobin, [id number] 09:37:00 Test Item Value Reference Range Interpretation Comments hemoglobin, blood (test code = 16.4 g/dL 12.6-17.7 718-7) [facility] Carolinaerythrocyte (RBC) [id number] 09:37:00 Test Item Value Reference Range Interpretation Comments erythrocyte (RBC) count (test 5.27 X10E6/UL 4.14-5.80 code = 789-8) [facility]inaleukocyte count, [id number] 09:37:00 Test Item Value Reference Range Interpretation Comments leukocyte count, blood (test 7.8 X10E3/UL 3.4-10.8 code = 6690-2) [facility] CarolinaCD4/CD8 [id number] 09:37:00 Test Item Value Reference Range Interpretation Comments CD4/CD8 ratio (test code 1.20 (unknown unit) 0.92-3.72 = 47321) [facility] CarolinaT-suppressor cells (CD8) as percent of blood lymphocytes 2017-06-16 09:37:00 Test Item Value Reference Range Interpretation Comments T-suppressor cells (CD8) as percent of 34.8 % 12.0-35.5 blood lymphocytes (test code = 3517) [facility] Carolinaabsolute [id number] 09:37:00 Test Item Value Reference Range Interpretation Comments absolute CD8 (test code = 731 (unknown unit) 781-653 60474) [facility] CarolinaNeisseria gonorrhoeae DNA [id number] 09:48:00 Test Item Value Reference Range Interpretation Comments Neisseria gonorrhoeae DNA probe Negative Negative (test code = 69180-7) [facility] Carolinachlamydia DNA [id number] 09:48:00 Test Item Value Reference Range Interpretation Comments chlamydia DNA probe (test code = Negative Negative 28738-6) [facility] CarolinaTreponema pallidum antibodies, by particle agglutination 2017-01-18 09:31:00 Test Item Value Reference Range Interpretation Comments Treponema pallidum antibodies, by Positive Negative A particle agglutination (test code = 91443-8) [facility] CarolinaLDL cholesterol, [id number] 09:31:00 Test Item Value Reference Range Interpretation Comments LDL cholesterol, serum (test TRIGHI mg/dL 0-99 code = 2089-1) [facility] CarolinaHDL cholesterol, [id number] 09:31:00 Test Item Value Reference Range Interpretation Comments HDL cholesterol, serum (test code = 17 mg/dL >39 L 5-9) [facility]inatriglyceride, serum, [id number] 09:31:00 Test Item Value Reference Range Interpretation Comments triglyceride, serum, fasting (test 559 mg/dL 0-149 HH code = 2571-8) [facility] Carolinacholesterol, [id number] 09:31:00 Test Item Value Reference Range Interpretation Comments cholesterol, serum (test code = 174 mg/dL 823-986 5471-3) [facility] CarolinaT-helper cells (CD4) as percent of blood lymphocytes 2017-01-18 09:31:00 Test Item Value Reference Range Interpretation Comments T-helper cells (CD4) as percent of 45.9 % 30.8-58.5 blood lymphocytes (test code = 8123-2) [facility] CarolinaT-helper cells (CD4) [id number] 09:31:00 Test Item Value Reference Range Interpretation Comments T-helper cells (CD4) count (test code 734 /UL 359-1519 = 37905-6) [facility] Carolinarapid plasma reagin antibody, [id number] 09:31:00 Test Item Value Reference Range Interpretation Comments rapid plasma reagin 1:4 See_Comment H [Automa stefany message] The antibody, serum (test system which generated code = 5291-0) this result t ransmitted reference range : NonRea<1:1. The reference range was not u sed to interpret this result as normal/abnormal . [facility] CarolinaHIV-1RNA, serum, by PCR, [id number] 09:31:00 Test Item Value Reference Range Interpretation Comments HIV-1RNA, serum, by PCR, <20 copies/mL quantitative (test code = 09444) [facility] CarolinaHepatitis B virus DNA, by Polymerase Chain Reaction 2017-01-18 09:31:00 Test Item Value Reference Range Interpretation Comments Hepatitis B virus DNA, by Polymerase <10 Chain Reaction (test code = 28066) [facility] Carolinaver low density acjaybziwwsq3323-75-49 09:31:00 Test Item Value Reference Range Interpretation Comments very low density lipoproteins VLDLCH mg/dL 5-40 (test code = 2091-7) [facility] Carolinaalanine aminotransferase (SGPT), [id number] 09:31:00 Test Item Value Reference Range Interpretation Comments alanine aminotransferase (SGPT), serum 90 1/L 0-44 H (test code = 1742-6) [facility] Carolinaaspartate aminotransferase (SGOT), qykan0243-43-85 09:31:00 Test Item Value Reference Range Interpretation Comments aspartate aminotransferase (SGOT), 66 1/L 0-40 H serum (test code = 1920-8) [facility] Carolinaalkaline phosphatase, [id number] 09:31:00 Test Item Value Reference Range Interpretation Comments alkaline phosphatase, serum (test 104 1/L 39-117 code = 1783-0) [facility] Carolinabilirubin, serum, [id number] 09:31:00 Test Item Value Reference Range Interpretation Comments bilirubin, serum, total (test code 0.4 mg/dL 0.0-1.2 = 1975-2) [facility] Carolinaalbumin/globulin ratio, [id number] 09:31:00 Test Item Value Reference Range Interpretation Comments albumin/globulin ratio, 1.3 (unknown unit) 1.2-2.2 serum (test code = 1759-0) [facility] Healthglobulin, [id number] 09:31:00 Test Item Value Reference Range Interpretation Comments globulin, serum (test code 3.0 (unknown unit) 1.5-4.5 = 2336-6) [facility] Carolinaalbumin, [id number] 09:31:00 Test Item Value Reference Range Interpretation Comments albumin, serum (test code = 1751-7) 4.0 g/dL 3.5-5.5 [facility] Healthprotein, total, [id number] 09:31:00 Test Item Value Reference Range Interpretation Comments protein, total, serum (test code = 7.0 g/dL 6.0-8.5 2885-2) [facility] Carolinacalcium, [id number] 09:31:00 Test Item Value Reference Range Interpretation Comments calcium, serum (test code = 1999-8) 9.0 mg/dL 8.7-10.2 [facility] Carolinacarbon dioxide, venous [id number] 09:31:00 Test Item Value Reference Range Interpretation Comments carbon dioxide, venous blood (test 22 mmol/L 18-29 code = 7-1) [facility] Carolinachloride, [id number] 09:31:00 Test Item Value Reference Range Interpretation Comments chloride, serum (test code = 100 mmol/L 96-106 5-0) [facility] Carolinapotassium, [id number] 09:31:00 Test Item Value Reference Range Interpretation Comments potassium, serum (test code = 4.3 mmol/L 3.5-5.2 2823-3) [facility] Carolinasodium, [id number] 09:31:00 Test Item Value Reference Range Interpretation Comments sodium, serum (test code = 2951-2) 139 mmol/L 134-144 [facility] Carolinaurea nitrogen/creatinine ratio, [id number] 09:31:00 Test Item Value Reference Range Interpretation Comments urea nitrogen/creatinine 8 (unknown unit) 8-19 ratio, serum (test code = 3097-3) [facility] CarolinaeGFR if Sprmjuaw9786-77-50 09:31:00 Test Item Value Reference Range Interpretation Comments eGFR if 107 mL/min/{1.73 m2} >59 (test code = 21233-5) [facility] CarolinaEstimated Glomerular Filtration Rate (calc)2017-01-18 09:31:00 Test Item Value Reference Range Interpretation Comments Estimated Glomerular 93 mL/min/{1.73 m2} >59 Filtration Rate (calc) (test code = 99125-3) [facility] Carolinacreatinine, [id number] 09:31:00 Test Item Value Reference Range Interpretation Comments creatinine, serum (test code = 1.02 mg/dL 0.76-1.27 2160-0) [facility] Healthurea nitrogen, [id number] 09:31:00 Test Item Value Reference Range Interpretation Comments urea nitrogen, blood (test code = 8 mg/dL 6-20 3094-0) [facility] Carolinablood glucose, nvzkvl3303-88-63 09:31:00 Test Item Value Reference Range Interpretation Comments blood glucose, random (test code = 313 mg/dL 65-99 H 2339-0) [facility] Carolinaimmature granulocytes, percentage of total cells, blood 2017-01-18 09:31:00 Test Item Value Reference Range Interpretation Comments immature granulocytes, percentage of 0 % total cells, blood (test code = 24469-9) [facility] Carolinabasophil count, [id number] 09:31:00 Test Item Value Reference Range Interpretation Comments basophil count, absolute (test 0.0 x10E3/uL 0.0-0.2 code = 75673-3) [facility] CarolinaEosinophil Absolute Trlvo8468-67-81 09:31:00 Test Item Value Reference Range Interpretation Comments Eosinophil Absolute Count (test 0.3 X10E3/UL 0.0-0.4 code = 85037-5) [facility] Carolinamonocyte count, blood, orcohapkd5711-12-64 09:31:00 Test Item Value Reference Range Interpretation Comments monocyte count, blood, automated 0.4 X10E3/UL 0.1-0.9 (test code = 742-7) [facility] Carolinalymphocyte count, blood, mitworlzn8045-12-91 09:31:00 Test Item Value Reference Range Interpretation Comments lymphocyte count, blood, 1.6 X10E3/UL 0.7-3.1 automated (test code = 731-0) [facility] CarolinaAbsolute Gvtnlympkzs3084-71-78 09:31:00 Test Item Value Reference Range Interpretation Comments Absolute Neutrophils (test code 5.9 X10E3/UL 1.4-7.0 = 88614-9) [facility]inabasophils as percent of blood fyhgzlguuo6119-60-97 09:31:00 Test Item Value Reference Range Interpretation Comments basophils as percent of blood 0 % leukocytes (test code = 707-0) [facility] Carolinaeosinophils as percent of blood wmxadtxpbe9098-44-60 09:31:00 Test Item Value Reference Range Interpretation Comments eosinophils as percent of blood 3 % leukocytes (test code = 713-8) [facility] Healthmonocytes as percent of blood gvawmdtemz0895-08-91 09:31:00 Test Item Value Reference Range Interpretation Comments monocytes as percent of blood 5 % leukocytes (test code = 5905-5) [facility] Carolinalymphocytes as percent of blood nzzpcsbqak2390-37-89 09:31:00 Test Item Value Reference Range Interpretation Comments lymphocytes as percent of blood 19 % leukocytes (test code = 736-9) [facility] Carolinaneutrophils as percent of blood rvuhnzvtye8523-79-92 09:31:00 Test Item Value Reference Range Interpretation Comments neutrophils as percent of blood 73 % leukocytes (test code = 770-8) [facility] Carolinaplatelet slvkx6505-63-69 09:31:00 Test Item Value Reference Range Interpretation Comments platelet count (test code = 192 X10E3/UL 150-379 777-3) [facility] Carolinared blood cell distribution [id number] 09:31:00 Test Item Value Reference Range Interpretation Comments red blood cell distribution width 13.7 % 12.3-15.4 (test code = 788-0) [facility] corpuscular hemoglobin concentration, [id number] 09:31:00 Test Item Value Reference Range Interpretation Comments mean corpuscular hemoglobin 34.7 G/DL 31.5-35.7 concentration, RBC (test code = 786-4) [facility] corpuscular hemoglobin, [id number] 09:31:00 Test Item Value Reference Range Interpretation Comments mean corpuscular hemoglobin, RBC 32.0 pg 26.6-33.0 (test code = 785-6) [facility], [id number] 09:31:00 Test Item Value Reference Range Interpretation Comments mean corpuscular volume, RBC (test code 92 fL 79-97 = 787-2) [facility] Carolinahematocrit, [id number] 09:31:00 Test Item Value Reference Range Interpretation Comments hematocrit, blood (test code = 4544-3) 48.1 % 37.5-51.0 [facility] Carolinahemoglobin, [id number] 09:31:00 Test Item Value Reference Range Interpretation Comments hemoglobin, blood (test code = 16.7 g/dL 12.6-17.7 718-7) [facility] Carolinaerythrocyte (RBC) [id number] 09:31:00 Test Item Value Reference Range Interpretation Comments erythrocyte (RBC) count (test 5.22 X10E6/UL 4.14-5.80 code = 789-8) [facility]inaleukocyte count, [id number] 09:31:00 Test Item Value Reference Range Interpretation Comments leukocyte count, blood (test 8.3 X10E3/UL 3.4-10.8 code = 6690-2) [facility] CarolinaCD4/CD8 djynt9806-60-93 09:31:00 Test Item Value Reference Range Interpretation Comments CD4/CD8 ratio (test code 1.43 (unknown unit) 0.92-3.72 = 54448) [facility] CarolinaT-suppressor cells (CD8) as percent of blood lymphocytes 2017-01-18 09:31:00 Test Item Value Reference Range Interpretation Comments T-suppressor cells (CD8) as percent of 32.0 % 12.0-35.5 blood lymphocytes (test code = 3517) [facility] Carolinaabsolute [id number] 09:31:00 Test Item Value Reference Range Interpretation Comments absolute CD8 (test code = 512 (unknown unit) 728-199 59242) [facility] CarolinaHIV-1RNA, serum, by PCR, qubxdksjnvov8527-80-33 10:14:00 Test Item Value Reference Range Interpretation Comments HIV-1RNA, serum, by PCR, <20 copies/mL quantitative (test code = 73267) [facility] Carolinavery low density trxsyengnsql9303-70-75 10:14:00 Test Item Value Reference Range Interpretation Comments very low density lipoproteins VLDLCH mg/dL 5-40 (test code = 2091-7) [facility] Carolinaalanine aminotransferase (SGPT), [id number] 10:14:00 Test Item Value Reference Range Interpretation Comments alanine aminotransferase (SGPT), 128 1/L 0-44 H serum (test code = 1742-6) [facility] Healthaspartate aminotransferase (SGOT), [id number] 10:14:00 Test Item Value Reference Range Interpretation Comments aspartate aminotransferase (SGOT), 65 1/L 0-40 H serum (test code = 1920-8) [facility] Carolinaalkaline phosphatase, [id number] 10:14:00 Test Item Value Reference Range Interpretation Comments alkaline phosphatase, serum (test 115 1/L 39-117 code = 1783-0) [facility] Carolinabilirubin, serum, [id number] 10:14:00 Test Item Value Reference Range Interpretation Comments bilirubin, serum, total (test code 0.6 mg/dL 0.0-1.2 = 1975-2) [facility] Healthalbumin/globulin ratio, [id number] 10:14:00 Test Item Value Reference Range Interpretation Comments albumin/globulin ratio, 1.5 (unknown unit) 1.1-2.5 serum (test code = 1759-0) [facility] Healthglobulin, [id number] 10:14:00 Test Item Value Reference Range Interpretation Comments globulin, serum (test code 2.8 (unknown unit) 1.5-4.5 = 2336-6) [facility] Healthalbumin, [id number] 10:14:00 Test Item Value Reference Range Interpretation Comments albumin, serum (test code = 1751-7) 4.2 g/dL 3.5-5.5 [facility]inaprotein, total, [id number] 10:14:00 Test Item Value Reference Range Interpretation Comments protein, total, serum (test code = 7.0 g/dL 6.0-8.5 2885-2) [facility] Carolinacalcium, [id number] 10:14:00 Test Item Value Reference Range Interpretation Comments calcium, serum (test code = 1999-8) 8.8 mg/dL 8.7-10.2 [facility] Carolinacarbon dioxide, venous [id number] 10:14:00 Test Item Value Reference Range Interpretation Comments carbon dioxide, venous blood (test 18 mmol/L 18-29 code = 7-1) [facility] Carolinachloride, [id number] 10:14:00 Test Item Value Reference Range Interpretation Comments chloride, serum (test code = 101 mmol/L 97-108 2074-0) [facility] Healthpotassium, [id number] 10:14:00 Test Item Value Reference Range Interpretation Comments potassium, serum (test code = 4.0 mmol/L 3.5-5.2 2823-3) [facility]inasodium, [id number] 10:14:00 Test Item Value Reference Range Interpretation Comments sodium, serum (test code = 2951-2) 139 mmol/L 134-144 [facility] Carolinaurea nitrogen/creatinine ratio, [id number] 10:14:00 Test Item Value Reference Range Interpretation Comments urea nitrogen/creatinine 10 (unknown unit) 8-19 ratio, serum (test code = 3097-3) [facility] HealtheGFR if Hlxkijpj6934-15-67 10:14:00 Test Item Value Reference Range Interpretation Comments eGFR if 121 mL/min/{1.73 m2} >59 (test code = 07882-1) [facility] CarolinaEstimated Glomerular Filtration Rate (calc)2016-07-21 10:14:00 Test Item Value Reference Range Interpretation Comments Estimated Glomerular 105 mL/min/{1.73 m2} >59 Filtration Rate (calc) (test code = 74797-3) [facility]inacreatinine, [id number] 10:14:00 Test Item Value Reference Range Interpretation Comments creatinine, serum (test code = 0.93 mg/dL 0.76-1.27 2160-0) [facility] Carolinaurea nitrogen, [id number] 10:14:00 Test Item Value Reference Range Interpretation Comments urea nitrogen, blood (test code = 9 mg/dL 6-20 3094-0) [facility] Carolinablood glucose, qejrts8537-26-02 10:14:00 Test Item Value Reference Range Interpretation Comments blood glucose, random (test code = 362 mg/dL 65-99 H 2339-0) [facility] Carolinaimmature granulocytes, percentage of total cells, blood 2016-07-21 10:14:00 Test Item Value Reference Range Interpretation Comments immature granulocytes, percentage of 0 % total cells, blood (test code = 81536-0) [facility] Carolinabasophil count, avzwnrqt0389-00-57 10:14:00 Test Item Value Reference Range Interpretation Comments basophil count, absolute (test 0.0 x10E3/uL 0.0-0.2 code = 43036-4) [facility] HealthEosinophil Absolute Efozd1951-98-31 10:14:00 Test Item Value Reference Range Interpretation Comments Eosinophil Absolute Count (test 0.2 X10E3/UL 0.0-0.4 code = 51738-4) [facility] Healthmonocyte count, blood, vwywqvgbw6741-14-21 10:14:00 Test Item Value Reference Range Interpretation Comments monocyte count, blood, automated 0.3 X10E3/UL 0.1-0.9 (test code = 742-7) [facility] Healthlymphocyte count, blood, yfnldltts4819-51-31 10:14:00 Test Item Value Reference Range Interpretation Comments lymphocyte count, blood, 1.6 X10E3/UL 0.7-3.1 automated (test code = 731-0) [facility] HealthAbsolute Lkfneeabrjq2327-98-35 10:14:00 Test Item Value Reference Range Interpretation Comments Absolute Neutrophils (test code 3.7 X10E3/UL 1.4-7.0 = 67182-8) [facility] Healthbasophils as percent of blood kwxzsoyglt1015-09-15 10:14:00 Test Item Value Reference Range Interpretation Comments basophils as percent of blood 0 % leukocytes (test code = 707-0) [facility] Healtheosinophils as percent of blood txroldxunj2298-13-80 10:14:00 Test Item Value Reference Range Interpretation Comments eosinophils as percent of blood 3 % leukocytes (test code = 713-8) [facility] Healthmonocytes as percent of blood lqevjjwzqk0390-89-73 10:14:00 Test Item Value Reference Range Interpretation Comments monocytes as percent of blood 5 % leukocytes (test code = 5905-5) [facility] Healthlymphocytes as percent of blood kyfwievqpb6217-71-20 10:14:00 Test Item Value Reference Range Interpretation Comments lymphocytes as percent of blood 27 % leukocytes (test code = 736-9) [facility] Healthneutrophils as percent of blood knovqhxeyz5128-56-89 10:14:00 Test Item Value Reference Range Interpretation Comments neutrophils as percent of blood 65 % leukocytes (test code = 770-8) [facility] Healthplatelet zwvgc9171-91-49 10:14:00 Test Item Value Reference Range Interpretation Comments platelet count (test code = 165 X10E3/UL 150-379 777-3) [facility] Carolinared blood cell distribution [id number] 10:14:00 Test Item Value Reference Range Interpretation Comments red blood cell distribution width 13.6 % 12.3-15.4 (test code = 788-0) [facility] corpus[facility] hemoglobin concentration, [id number] 10:14:00 Test Item Value Reference Range Interpretation Comments mean corpuscular hemoglobin 34.6 G/DL 31.5-35.7 concentration, RBC (test code = 786-4) [facility] corpuscular hemoglobin, [id number] 10:14:00 Test Item Value Reference Range Interpretation Comments mean corpuscular hemoglobin, RBC 31.0 pg 26.6-33.0 (test code = 785-6) [facility] corpuscular volume, [id number] 10:14:00 Test Item Value Reference Range Interpretation Comments mean corpuscular volume, RBC (test code 90 fL 79-97 = 787-2) [facility] Carolinahematocrit, [id number] 10:14:00 Test Item Value Reference Range Interpretation Comments hematocrit, blood (test code = 4544-3) 45.6 % 37.5-51.0 [facility] Carolinahemoglobin, [id number] 10:14:00 Test Item Value Reference Range Interpretation Comments hemoglobin, blood (test code = 15.8 g/dL 12.6-17.7 718-7) [facility] Carolinaerythrocyte (RBC) [id number] 10:14:00 Test Item Value Reference Range Interpretation Comments erythrocyte (RBC) count (test 5.09 X10E6/UL 4.14-5.80 code = 789-8) [facility]inaleukocyte count, opwco6578-92-18 10:14:00 Test Item Value Reference Range Interpretation Comments leukocyte count, blood (test 5.8 X10E3/UL 3.4-10.8 code = 6690-2) [facility] CarolinaCD4/CD8 rtyjv3917-03-23 10:14:00 Test Item Value Reference Range Interpretation Comments CD4/CD8 ratio (test code 1.39 (unknown unit) 0.92-3.72 = 05655) [facility] CarolinaT-suppressor cells (CD8) as percent of blood lymphocytes 2016-07-21 10:14:00 Test Item Value Reference Range Interpretation Comments T-suppressor cells (CD8) as percent of 31.0 % 12.0-35.5 blood lymphocytes (test code = 3517) [facility] Carolinaabsolute [id number] 10:14:00 Test Item Value Reference Range Interpretation Comments absolute CD8 (test code = 496 (unknown unit) 031-735 55220) [facility] CarolinaTreponema pallidum antibodies, by particle agglutination 2016-07-21 10:14:00 Test Item Value Reference Range Interpretation Comments Treponema pallidum antibodies, by Positive Negative A particle agglutination (test code = 82747-0) [facility] CarolinaLDL cholesterol, bjfoh2271-29-04 10:14:00 Test Item Value Reference Range Interpretation Comments LDL cholesterol, serum (test TRIGHI mg/dL 0-99 code = 2089-1) [facility] CarolinaHDL cholesterol, zylis6116-44-23 10:14:00 Test Item Value Reference Range Interpretation Comments HDL cholesterol, serum (test code = 19 mg/dL >39 L 5-9) [facility]inatriglyceride, serum, rapoftt5267-07-20 10:14:00 Test Item Value Reference Range Interpretation Comments triglyceride, serum, fasting (test 452 mg/dL 0-149 H code = 2571-8) [facility] Carolinacholesterol, [id number] 10:14:00 Test Item Value Reference Range Interpretation Comments cholesterol, serum (test code = 144 mg/dL 535-714 0938-3) [facility] CarolinaT-helper cells (CD4) as percent of blood lymphocytes 2016-07-21 10:14:00 Test Item Value Reference Range Interpretation Comments T-helper cells (CD4) as percent of 43.2 % 30.8-58.5 blood lymphocytes (test code = 8123-2) [facility] CarolinaT-helper cells (CD4) juthm6101-55-05 10:14:00 Test Item Value Reference Range Interpretation Comments T-helper cells (CD4) count (test code 691 /UL 359-1519 = 99824-4) [facility] TB blood test for tuberculosis screening 2016-07-21 10:14:00 Test Item Value Reference Range Interpretation Comments Quantiferon Gold TB blood test for Negative Negative tuberculosis screening (test code = 39988-3) [facility]apid plasma reagin antibody, [id number] 10:14:00 Test Item Value Reference Range Interpretation Comments rapid plasma reagin 1:2 See_Comment H [Automa stefany message] The antibody, serum (test system which generated code = 5291-0) this result t ransmitted reference range : NonRea<1:1. The reference range was not u sed to interpret this result as normal/abnormal . [facility] Carolina[facility]patitis A antibody, [id number] 12:15:41 Test Item Value Reference Range Interpretation Comments hepatitis A antibody, total (test Reactive code = 75) [facility] Carolina[facility]patitis B surface [id number] 12:14:34 Test Item Value Reference Range Interpretation Comments hepatitis B surface antibody Non-reactive (test code = 78) [facility] CarolinaT-helper cells (CD4) as percent of blood lymphocytes 2016-04-15 12:13:24 Test Item Value Reference Range Interpretation Comments T-helper cells (CD4) as percent of 42 % blood lymphocytes (test code = 8123-2) [facility] CarolinaHIV-1RNA, serum, by PCR, [id number] 12:13:09 Test Item Value Reference Range Interpretation Comments HIV-1RNA, serum, by PCR, quantitative <20 (test code = 15430) [facility] CarolinaT-helper cells (CD4) [id number] 12:12:46 Test Item Value Reference Range Interpretation Comments T-helper cells (CD4) count (test code 677 uL = 29453-7) [facility] Carolinatoxoplasma gondii antibody, [id number] 12:11:51 Test Item Value Reference Range Interpretation Comments toxoplasma gondii antibody, IgG (test <3 code = 2430) [facility]inarapid plasma reagin antibody, [id number] 12:11:28 Test Item Value Reference Range Interpretation Comments rapid plasma reagin antibody, serum 1:2 (test code = 5291-0) [facility] (HCV) RNA, PCR, [id number] 12:10:46 Test Item Value Reference Range Interpretation Comments Hepatitis C virus (HCV) RNA, Not-detected PCR, quantitative (test code = 47955) [facility] C antibody, [id number] 12:10:17 Test Item Value Reference Range Interpretation Comments hepatitis C antibody, serum Non-reactive (test code = 5199-5) [facility] Carolinahepatitis B surface [id number] 12:09:48 Test Item Value Reference Range Interpretation Comments hepatitis B surface antigen (test reactive code = 79) [facility] Healthprotein, total, [id number] 12:08:51 Test Item Value Reference Range Interpretation Comments protein, total, serum (test code = 7.6 g/dL 2885-2) [facility] Healthalbumin, [id number] 12:08:51 Test Item Value Reference Range Interpretation Comments albumin, serum (test code = 1751-7) 4.0 g/dL [facility]abilirubin, serum, [id number] 12:08:50 Test Item Value Reference Range Interpretation Comments bilirubin, serum, total (test code 0.5 mg/dL = 1975-2) [facility] Carolinaalanine aminotransferase (SGPT), [id number] 12:08:50 Test Item Value Reference Range Interpretation Comments alanine aminotransferase (SGPT), 103 1/L serum (test code = 1742-6) [facility] Carolinaaspartate aminotransferase (SGOT), [id number] 12:08:50 Test Item Value Reference Range Interpretation Comments aspartate aminotransferase (SGOT), 54 1/L serum (test code = 1920-8) [facility] Carolinaerythrocyte (RBC) [id number] 12:07:48 Test Item Value Reference Range Interpretation Comments erythrocyte (RBC) count (test 5.26 10*6/mm3 code = 789-8) [facility] Carolinaplatelet [id number] 12:07:47 Test Item Value Reference Range Interpretation Comments platelet count (test code = 228 10*3/mm3 777-3) [facility] Carolinahematocrit, [id number] 12:07:47 Test Item Value Reference Range Interpretation Comments hematocrit, blood (test code = 4544-3) 46.8 % [facility] Carolinahemoglobin, [id number] 12:07:46 Test Item Value Reference Range Interpretation Comments hemoglobin, blood (test code = 16.5 g/dL 718-7) [facility]inaleukocyte count, [id number] 12:07:46 Test Item Value Reference Range Interpretation Comments leukocyte count, blood (test 0.74 10*3/mm3 code = 6690-2) [facility]inatriglyceride, serum, [id number] 12:06:54 Test Item Value Reference Range Interpretation Comments triglyceride, serum, fasting (test 330 mg/dL code = 2571-8) [facility] CarolinaLDL cholesterol, [id number] 12:06:54 Test Item Value Reference Range Interpretation Comments LDL cholesterol, serum (test code = 88 mg/dL 2088-) [facility] CarolinaHDL cholesterol, [id number] 12:06:54 Test Item Value Reference Range Interpretation Comments HDL cholesterol, serum (test code = 23 mg/dL 2084-9) [facility]inacholesterol, [id number] 12:06:53 Test Item Value Reference Range Interpretation Comments cholesterol, serum (test code = 153 mg/dL 3-3) [facility]inacreatinine, [id number] 12:06:25 Test Item Value Reference Range Interpretation Comments creatinine, serum (test code = 0.9 mg/dL 2160-0) [facility] Carolinaurea nitrogen, [id number] 12:06:25 Test Item Value Reference Range Interpretation Comments urea nitrogen, blood (test code = 10 mg/dL 3094-0) [facility]inapotassium, [id number] 12:06:25 Test Item Value Reference Range Interpretation Comments potassium, serum (test code = 4.1 mmol/L 2823-3) [facility] Carolinasodium, [id number] 12:06:24 Test Item Value Reference Range Interpretation Comments sodium, serum (test code = 2951-2) 142 mmol/L [facility] CarolinaT-helper cells (CD4) [id number] 15:52:58 Test Item Value Reference Range Interpretation Comments T-helper cells (CD4) count (test code 783 uL = 88482-1) [facility] CarolinaHIV-1RNA, serum, by PCR, [id number] 15:52:58 Test Item Value Reference Range Interpretation Comments HIV-1RNA, serum, by PCR, quantitative 75 /mL (test code = 07607) [facility]
--- NOTE | 2023-01-24 13:23 | RAD REPORT ---
EXAM DESCRIPTION: RAD - Chest Pa And Lat (2 Views) - 01/24/2023 1:16 pm CLINICAL HISTORY: COUGH Chest pain. COMPARISON: Chest Single View dated 08/21/2021; Chest Single View dated 06/08/2021; Chest Single View dated 04/23/2019 FINDINGS: The lungs are clear. The heart is normal in size. No displaced fractures. IMPRESSION: No acute or concerning finding suspected.
[2023-01-24] MEDS ORDERED: KETOROLAC 30 MG/ML INJ ONE (13:56)
[2023-01-24] MEDS ORDERED: ONDANSETRON 4 MG/2 ML VIAL ONE (13:56)
[2023-01-24] MEDS ORDERED: NA CHLORIDE 0.9% 1,000 ML ONE (13:56)
[2023-01-24 13:58] LABS: Absolute Lymphocytes (CBC) 1.6 K/uL (0.7-4.9); Hematocrit 46.3 % (39.6-49.0); Lymphocytes % 14.1 % (15.3-44.8); MCV 89.8 fL (80-100); MPV 8.6 fL (7.6-11.3); RBC Red Blood Cell Count 5.16 M/uL (4.33-5.43)
[2023-01-24 14:09] LABS: Potassium 3.7 mEq/L (3.5-5.1)
[2023-01-24 14:11] LABS: Bilirubin Total 0.6 mg/dL (0.2-1.0); Protein, Total 7.2 g/dL (6.4-8.2)
[2023-01-24 14:12] LABS: Albumin 3.6 g/dL (3.4-5.0)
[2023-01-24 14:15] LABS: Specific Gravity > 1.030 (1.005-1.030); Urine Bilirubin NEGATIVE (Negative); Urine Blood Negative (Negative); Urine Clarity Clear (Clear); Urine Color Light-Yellow (Yellow); Urine Glucose 4+ (Over) (Negative); Urine Protein NEGATIVE (Negative); Urine Urobilinogen Normal (Normal); Urine pH 5.5 (5.0-7.0)
[2023-01-24 14:16] LABS: SARS-COV-2 RT PCR NEGATIVE (NEGATIVE)
--- NOTE | 2023-01-24 15:32 | ER ---
Nurse's Notes [facility] Name: Jaleel Olivas Age: 42 yrs Sex: Male : 1980 Arrival Date: 01/24/2023 Time: 12:13 Bed 10 Private MD: Diagnosis: Vomiting;Asymptomatic human immunodeficiency virus [HIV] infection status Presentation: 01/24 12:42 Chief complaint: Patient states: Body aches, chills, hot flashes and N/V since vg1 01/19/2023, intolerance to food and fluids. Also states drainage. Coronavirus screen: Vaccine status: Patient reports receiving the 2nd dose of the covid vaccine. Client denies travel out of the [place] in the last 14 days. Ebola Screen: Patient negative for fever greater than or equal to 101.5 degrees Fahrenheit, and additional compatible Ebola Virus Disease symptoms Patient denies exposure to infectious person. Patient denies travel to an Ebola-affected area in the 21 days before illness onset. Initial Sepsis Screen: Does the patient meet any 2 criteria? No. Patient's initial sepsis screen is negative. Does the patient have a suspected source of infection? No. Patient's initial sepsis screen is negative. Risk Assessment: Do you want to hurt yourself or someone else? Patient reports no desire to harm self or others. Onset of symptoms was January 19, 2023. 12:42 Method Of Arrival: Ambulatory vg1 12:42 Acuity: LARRY 3 vg1 Triage Assessment: 12:42 General: Appears in no apparent distress. uncomfortable, Behavior is calm, cooperative. vg1 Pain: Complains of pain in generalize body Pain currently is 7 out of 10 on a pain scale. Quality of pain is described as aching. Neuro: Level of Consciousness is awake, alert, obeys commands, Oriented to person, place, time, situation. Cardiovascular: Patient's skin is warm and dry. GI: Reports intolerance of fluids, intolerance of food, nausea, vomiting. Historical: - Allergies: 12:48 Codeine (Hives); vg1 12:48 Tape; vg1 - Home Meds: 12:48 Metformin Oral [Active]; lisinopril Oral [Active]; Trulicity subcutaneous [Active]; vg1 Odefsey oral [Active]; - PMHx: 12:48 Diabetes - NIDDM; HIV; Hypertension; vg1 - PSHx: 12:48 Appendectomy; vg1 - Immunization history:: Adult Immunizations up to date. - Social history:: Smoking status: Reported history of juuling and/or vaping. Screenin:30 Abuse screen: Denies threats or abuse. Denies injuries from another. iw Assessment: 15:00 General: Appears in no apparent distress. comfortable, Behavior is calm, cooperative. iw Neuro: Level of Consciousness is awake, alert, obeys commands, Oriented to person, place, time, situation, Moves all extremities. Full function. Cardiovascular: Patient's skin is warm and dry. Respiratory: Respiratory effort is even, unlabored, Respiratory pattern is regular. 16:00 Reassessment: Patient appears in no apparent distress at this time. Patient and/or iw family updated on plan of care and expected duration. Pain level reassessed. Patient is alert, oriented x 3, equal unlabored respirations, skin warm/dry/pink. GI: Abdomen is non-distended. Vital Signs: 12:42 BP 147 / 97; Pulse 87; Resp 16; Temp 98.9(O); Pulse Ox 100% on R/A; Weight 68.04 kg vg1 (R); Height 5 ft. 5 in. (R); Pain 7/10; 12:42 Body Mass Index 24.96 (68.04 kg, 165.1 cm) vg1 12:42 Pain Scale: Adult vg1 ED Course: 12:13 Patient arrived in ED. rg4 12:24 Matthieu Bowen MD is Attending Physician. anita 12:47 Triage completed. vg1 12:48 Arm band placed on. vg1 12:55 COVID-19/FLU A+B Sent. hb 13:17 Chest Pa And Lat (2 Views) XRAY In Process Unspecified. EDMS 13:46 Marilu Farley, RN is Primary Nurse. iw 16:32 No provider procedures requiring assistance completed. IV discontinued, intact, iw bleeding controlled, No redness/swelling at site. Pressure dressing applied. Administered Medications: 14:01 Drug: NS 0.9% IV 1000 ml Route: IV; Rate: 1 bolus; Site: right antecubital; iw 15:00 Follow up: IV Status: Completed infusion iw 14:01 Drug: Ketorolac IVP 30 mg Route: IVP; Site: right antecubital; iw 15:00 Follow up: Response: No adverse reaction; Pain is decreased iw 14:01 Drug: Ondansetron IVP 4 mg Route: IVP; Site: right antecubital; iw 14:30 Follow up: Response: No adverse reaction iw Outcome: 15:31 Discharge ordered by MD. howard 16:30 Discharged to home ambulatory. iw 16:30 Condition: good 16:30 Discharge instructions given to patient, Instructed on discharge instructions, follow up and referral plans. medication usage, Demonstrated understanding of instructions, follow-up care, medications, Prescriptions given X 1. 16:33 Patient left the ED. iw Signatures: Dispatcher [employer] EDMS Matthieu Bowen MD MD cha Williams, Irene, RN RN Kathleen Anguiano, RN Catia Hernandez 4 Afsaneh Wilder RN RN vg1 Corrections: (The following items were deleted from the chart) 12:48 12:42 Pulse 87bpm; Resp 16bpm; Pulse Ox 100% RA; Temp 98.9F Oral; 68.04 kg Reported; vg1 Height 5 ft. 5 in. Reported; BMI: 24.9; Pain 710, Adult; vg1 12:51 12:48 Home Meds: HIV med; vg1 vg1
--- NOTE | 2023-01-24 15:32 | EDPHYS ---
Physician Documentation [facility] Name: Jaleel Olivas Age: 42 yrs Sex: Male : 1980 Arrival Date: 01/24/2023 Time: 12:13 Bed 10 Private MD: ANGELA Physician Matthieu Bowen HPI: 01/24 15:26 This 42 yrs old Male presents to ER via Ambulatory with complaints of anita Vomiting, Body Aches. 15:26 The patient presents to the emergency department with nausea, vomiting, that is anita continuous. Onset: The symptoms/episode began/occurred 1 day(s) ago. Possible causes: unknown. The symptoms are aggravated by nothing. The symptoms are alleviated by nothing. Associated signs and symptoms: Pertinent positives: nausea, vomiting. Severity of symptoms: At their worst the symptoms were mild in the emergency department the symptoms have improved mildly. The patient has experienced similar episodes in the past, several times. Historical: - Allergies: 12:48 Codeine (Hives); vg1 12:48 Tape; vg1 - Home Meds: 12:48 Metformin Oral [Active]; lisinopril Oral [Active]; Trulicity subcutaneous [Active]; vg1 Odefsey oral [Active]; - PMHx: 12:48 Diabetes - NIDDM; HIV; Hypertension; vg1 - PSHx: 12:48 Appendectomy; vg1 - Immunization history:: Adult Immunizations up to date. - Social history:: Smoking status: Reported history of juuling and/or vaping. ROS: 15:28 Constitutional: Negative for fever, chills, and weight loss, Eyes: Negative for injury, anita pain, redness, and discharge, ENT: Negative for injury, pain, and discharge, Neck: Negative for injury, pain, and swelling, Cardiovascular: Negative for chest pain, palpitations, and edema, Respiratory: Negative for shortness of breath, cough, wheezing, and pleuritic chest pain, Back: Negative for injury and pain, : Negative for injury, bleeding, discharge, and swelling, MS/Extremity: Negative for injury and deformity, Skin: Negative for injury, rash, and discoloration, Neuro: Negative for headache, weakness, numbness, tingling, and seizure, Psych: Negative for depression, anxiety, suicide ideation, homicidal ideation, and hallucinations, Allergy/Immunology: Negative for hives, rash, and allergies, Endocrine: Negative for neck swelling, polydipsia, polyuria, polyphagia, and marked weight changes, Hematologic/Lymphatic: Negative for swollen nodes, abnormal bleeding, and unusual bruising. 15:28 Abdomen/GI: Positive for nausea and vomiting. Exam: 15:28 Constitutional: This is a well developed, well nourished patient who is awake, alert, anita and in no acute distress. Head/Face: Normocephalic, atraumatic. Eyes: Pupils equal round and reactive to light, extra-ocular motions intact. Lids and lashes normal. Conjunctiva and sclera are non-icteric and not injected. Cornea within normal limits. Periorbital areas with no swelling, redness, or edema. ENT: Nares patent. No nasal discharge, no septal abnormalities noted. Tympanic membranes are normal and external auditory canals are clear. Oropharynx with no redness, swelling, or masses, exudates, or evidence of obstruction, uvula midline. Mucous membranes moist. Neck: Trachea midline, no thyromegaly or masses palpated, and no cervical lymphadenopathy. Supple, full range of motion without nuchal rigidity, or vertebral point tenderness. No Meningismus. Chest/axilla: Normal chest wall appearance and motion. Nontender with no deformity. No lesions are appreciated. Cardiovascular: Regular rate and rhythm with a normal S1 and S2. No gallops, murmurs, or rubs. Normal PMI, no JVD. No pulse deficits. Respiratory: Lungs have equal breath sounds bilaterally, clear to auscultation and percussion. No rales, rhonchi or wheezes noted. No increased work of breathing, no retractions or nasal flaring. Abdomen/GI: Soft, non-tender, with normal bowel sounds. No distension or tympany. No guarding or rebound. No evidence of tenderness throughout. Back: No spinal tenderness. No costovertebral tenderness. Full range of motion. Male : Normal genitalia with no discharge or lesions. Skin: Warm, dry with normal turgor. Normal color with no rashes, no lesions, and no evidence of cellulitis. 15:28 Musculoskeletal/extremity: DVT Exam: No signs of deep vein thrombosis. no pain, no swelling, no tenderness, negative Homans' sign noted on exam, no appreciated bluish discoloration, no erythema, no increased warmth. Vital Signs: 12:42 BP 147 / 97; Pulse 87; Resp 16; Temp 98.9(O); Pulse Ox 100% on R/A; Weight 68.04 kg vg1 (R); Height 5 ft. 5 in. (R); Pain 7/10; 12:42 Body Mass Index 24.96 (68.04 kg, 165.1 cm) vg1 12:42 Pain Scale: Adult vg1 MDM: 12:24 Patient medically screened. [facility] 15:29 Differential diagnosis: Nonspecific abd pain, gastritis, viral gastroenteritis, anita gastroenteritis. Differential Diagnosis flu. Data reviewed: vital signs, nurses notes, lab test result(s), EKG, radiologic studies, plain films. Consideration of Admission/Observation Escalation of care including admission/observation considered. I considered the following discharge prescriptions or medication management in the emergency department Medications were administered in the Emergency Department. See MAR. Test considered but Not performed: CT: no ct abd pelvis. Care significantly affected by the following chronic conditions: Diabetes, Hypertension, hiv. 01/24 12:27 Order name: CBC with Diff; Complete Time: 15:22 [facility] 01/24 12:27 Order name: Comprehensive Metabolic Panel; Complete Time: 15:22 [facility] 01/24 12:27 Order name: COVID-19/FLU A+B; Complete Time: 15:22 [facility] 01/24 12:27 Order name: Lipase; Complete Time: 15:22 [facility] 01/24 12:27 Order name: Urinalysis (UA w/ reflexes); Complete Time: 15:22 [facility] 01/24 12:27 Order name: Troponin High Sensitivity; Complete Time: 15:22 [facility] 01/24 12:27 Order name: Chest Pa And Lat (2 Views) XRAY; Complete Time: 15:22 [facility] 01/24 12:27 Order name: EKG; Complete Time: 12:28 [facility] 01/24 12:27 Order name: EKG - Nurse/Tech; Complete Time: 16:18 [facility] Administered Medications: 14:01 Drug: NS 0.9% IV 1000 ml Route: IV; Rate: 1 bolus; Site: right antecubital; iw 15:00 Follow up: IV Status: Completed infusion iw 14:01 Drug: Ketorolac IVP 30 mg Route: IVP; Site: right antecubital; iw 15:00 Follow up: Response: No adverse reaction; Pain is decreased iw 14:01 Drug: Ondansetron IVP 4 mg Route: IVP; Site: right antecubital; iw 14:30 Follow up: Response: No adverse reaction iw Disposition Summary: 01/24/23 15:31 Discharge Ordered Location: Home anita Problem: new anita Symptoms: have improved anita Condition: Stable anita Diagnosis - Vomiting anita - Asymptomatic human immunodeficiency virus [HIV] infection status anita Followup: anita - With: Private Physician - When: 2 - 3 days - Reason: Recheck today's complaints, Continuance of care, Re-evaluation by your physician Discharge Instructions: - Discharge Summary Sheet anita - Weakness anita - Fatigue anita - Weakness, [id number] anita - Vomiting, Adult anita Forms: - Medication Reconciliation Form anita - Thank You Letter anita - Antibiotic Education anita - Prescription Opioid Use anita Prescriptions: - Zofran 4 mg Oral Tablet - take 1 tablet by ORAL route every 12 hours As needed; 20 tablet; Refills: 0, anita Product Selection Permitted Signatures: Dispatcher [employer] Matthieu Dunn MD MD cha Williams, Irene, RN RN Afsaneh Givens RN RN vg1 Corrections: (The following items were deleted from the chart) 12:51 12:48 Home Meds: HIV med; vg1 vg1
[2023-01-24] MEDS ORDERED: INSULIN -REGULAR HUMAN 50 UNIT/0.5 ML ML ONE (16:25)
[2023-01-24 17:28] VITALS: BP 147/97; TEMP 98.9; O2SAT 100
--- NOTE | 2023-01-25 17:23 | EKG ---
Test Date: 2023-01-24 Test Time: 16:09:49 Senior Estimator: LILI MEASUREMENT RESULTS: Intervals: Rate: 69 PA: 134 QRSD: 80 QT: 404 QTc: 432 [place]: P: 37 PA: 134 QRS: 75 T: 14 INTERPRETIVE STATEMENTS: Normal sinus rhythm Possible Anterior infarct, age undetermined Abnormal ECG Compared to ECG 01/24/2023 16:09:15 No significant changes Electronically Signed On 01-25-23 17:20:46 CDT by Woody Baker
--- NOTE | 2023-01-25 17:23 | EKG ---
Test Date: 2023-01-24 Test Time: 16:09:15 Informal Waiter/Waitress: LILI MEASUREMENT RESULTS: Intervals: Rate: 69 IA: 134 QRSD: 80 QT: 394 QTc: 422 [place]: P: 42 IA: 134 QRS: 70 T: 11 INTERPRETIVE STATEMENTS: Normal sinus rhythm Possible Anterior infarct, age undetermined Abnormal ECG Compared to ECG 08/21/2021 04:04:28 Myocardial infarct finding now present Electronically Signed On 01-25-23 17:20:47 CDT by Woody Baker
== END 2023-01-24 16:33 | disposition home or self-care (01) ==
LOC: ER 12:11
DX: R11.10 Vomiting, unspecified (principal); Z21 Asymptomatic human immunodeficiency virus [HIV] infection status; E11.9 Type 2 diabetes mellitus without complications; Z20.822 Contact with and (suspected) exposure to COVID-19; Z88.5 Allergy status to narcotic agent; Z91.048 Other nonmedicinal substance allergy status
CPT/HCPCS: 85025; 36415; 81003; 84484; 83690; 80053; 0240U; 71046; J1815; J2405; J7030; 93005; 96361; 96374; 96375; 99284

== ENCOUNTER → 2024-01-31 | Emergency (ER) | payer BC ==
[~2024-01-31] MED LIST: INSULIN GLARGINE 100 UNIT/ML SQ ONE; NA CHLORIDE 0.9% 1,000 ML ONE
--- OUTSIDE RECORDS SUMMARY | 2024-01-31 10:37 | XMS REPORT | Continuity of Care Document ---
Author Name Unknown Address [address] [facility] [address]. [address] [place] [address] [facility] Address [address] [facility]. [address] [place] [address] Care Team Providers Care Insurance Sales Producer Name Role Phone Lesly Lea DO Primary Care Physician [phone] APOLINAR SMITH Attending Clinician Unavailable Sammy Romero MD Attending Clinician [phone] Apolinar Lam Attending Clinician [phone] [facility] Attending Clinician Unavailable Myrna Pratt Attending Clinician Unavailable Visit, [facility] Id Nurse Attending Clinician Unavaila ble Doctor Unassigned, [place] Attending Clinician U Chari Garduno MD Attending Clinician [phone] BRAD HARRIS Attending Clinician Unavailable Regis Amanda RN, Awa Rodriguez Attending Clinician Unava ilpeggy Nurse, Pcp Immunization Attending Clinician Unav ailHiram Sanchez DO Attending Clinician [phone] HIRAM DUPONT Attending Clinician Unavail able Cait Hendrickson RN Attending Clinician Unavailable Josep Cobos Attending Clinician [phone] JOSEP GUERRIER Attending Clinician Unavailable Patti García RN Attending Clinician Unavailab le Only, Ang Db Test Attending Clinician Unavailabl e Unknown, Attending Attending Clinician Unavailab le UNKNOWN, ATTENDING Attending Clinician Unavailab SHAWNEE Tubbs Attending Clinician Unavailabl SEE Mueller Attending Clinician Unavail able FIONA ESCOBEDO Attending Clinician Unavailable Lab, Adc Fam Pob I Attending Clinician Unavailab le Ebrahim Fiona MERA Attending Clinician + [phone] Anatoly GUSMAN, Anastasia Edwards Attending Clinician U kristal Piercevandana OCONNOR VikasMadiha Attending Clinician [phone] ELISA MONTENEGRO Attending Clinician Unavailable Kenia MASSEY, Sheryl Sloan Attending Clinici an Jacky Guadalupe MD Attending Clinician [phone] MARISOL ODONNELL Attending Clinician Unavailable David MERA, Marisol Attending Clinician [phone] Sofya Hightower MA Attending Clinician Unavailab Rupert Rao Attending Clinician [phone] Uzair Sidhu Attending Clinician Melonie Araceli Cheung Attending Clinician Unavailab Elva Wise Attending Clinician Unavailab tadeo Extra HoursSalo Attending Clinician Unavailab tadeo Posadas MedAdherence, Naomie Zhang Attending Clinici an Unavailable Christopher MedAdherence,, Chuck Attending Clinician Un available David Med[facility], Jaci Attending Clinicia n Unavailable Zuly MedAdherence,, Marni Attending Clinician Unavailable Admin, [place] Attending Clinician Unavailable Caterina Palafox Attending Clinician Unavailable Derick Wilder Attending Clinician Unavailable Agustina Simpson Attending Clinician Unavailable Isabel Wilder Attending Clinician Unavailabl Clarissa Reardon Attending Clinician Unavailabl Kelli Ward Attending Clinician Unavaila Dc Darden Attending Clinician [phone] Lizy Mcgregor Attending Clinician [phone] [facility] Attending Clinician Unavailable Vanessa Loomis Attending Clinician Unavailable Marni Sr Attending Clinician Unavailable Elva Brown Attending Clinician Unavailable Denise Wilder Attending Clinician Unavailable Ashlee Verdugo Attending Clinician Unavailable Nestor Guzman Attending Clinician [phone] Silvia Hassan Attending Clinician Unavailable Leticia Linder Attending Clinician Unavailab Valerie Sloan Attending Clinician Unavailable Camila Woodard Attending Clinician [phone] Samantha Cast Attending Clinician UnavailKasia Coronel Attending Clinician [phone] Robby Edwards Attending Clinician [phone] Az Islas Attending Clinician UnavailSaloni Samuel Attending Clinician Unavailable Sneha Dan Attending Clinician Unavailable Kiel Billy Attending Clinician Unavailable Casa Riggs Attending Clinician [phone] Shirley Encarnacion Attending Clinician [phone] Maribeth Abad Attending Clinician Unavailable Julio Govea Attending Clinician Unavailable Kaleigh Finney Attending Clinician Unavailable Carlos Alberto Bowen Attending Clinician Unavailable Nitza Alex Attending Clinician [phone] Wan Jerome Attending Clinician Un available Amanda Fuentes Attending Clinician [phone] Yolie Santiago Attending Clinician Unavailable Ameena Stringer Attending Clinician Unavailable Ivory Fontanez Attending Clinician [phone] Jamal Zelaya Attending Clinician [phone] Alejandro Saenz Attending Clinician Unavailable MARISOL ODONNELL Admitting Clinician Unavailable Rupert Tiwari Unavailable [phone] Dc Guerrero Unavailable [phone] Casa Riggs Unavailable [id number] Payers Payer Name Policy Type Policy Number Effective Date Expirati on Date Source [employer]ET[employer] [facility] [id number] 2017 00:00:00 [place] [facility] [id number] 2019 00:00:00 AETNA 11 [id number] 2019 00:00:00 2020 00:00:00 [facility] AETNA 11 [id number] 2019 00:00:00 2020 00:00:00 [facility] AETNA CI [id number] 2019 00:00:00 2020 00:00:00 [facility] AETNA 11 [id number] 2018 00:00:00 2019 00:00:00 [facility] AETNA 11 [id number] 2016 00:00:00 2017 00:00:00 [facility] [employer]ET[employer] 11 [id number] 2012 00:00:00 2017 00:00:00 [facility] [employer] [facility] Problems Condition Name Condition Details Condition Category Status Onset Date Resolution Date Last Treatment Date Treating Clinician Comments Source abscess, perianal Condition Active 04-26 00:00: 00 2019-04-26 16:07:35 MichelleRupert bingham [facility] Diabetes mellitus, type II Condition Active 04-17 00:00: 00 2017-12-21 10:15:14 KarieRupert [employer] Hyperlipid emia Condition Active 2015-11 00:00: 00 2017-07-20 20:06:19 KarieRupert [facility] Preventive health care Condition Active 2015-11 00:00: 00 2017-04-17 11:44:53 JigneshRupert ibrahim [facility] ANXIETY DISORDER, UNSPECIFIE D Condition Active 07-21 00:00: 00 2016-09-21 09:37:47 CesarDc [facility] Hallucinat ions Condition Active 06-09 00:00: 00 2016-09-21 09:37:47 Cesar Migelregis [facility] HEPATITIS B, CHRONIC Condition Active 05-06 00:00: 00 2017-04-17 11:44:53 MichelleRupert bingham [facility] PTSD Condition Active 05-06 00:00: 00 2016-09-21 09:37:47 KarieRupert [facility] Intractabl e diarrhea Intractabl e diarrhea Disease Active 11-29 00:00: 00 [facility] Hypertrigl yceridemia Hypertrigl yceridemia Disease Active 02-06 00:00: 00 [facility] Depressive disorder Depressive disorder Disease Active 08-01 00:00: 00 Overview: Formattin g of this note might be different from the original. ICD10 Diagnosis Term Care Director Utility [facility] History of latent syphilis History of latent syphilis Disease Active 02-28 00:00: 00 [facility] Chronic hepatitis B Chronic hepatitis B Disease Recurre nce 2010-11 00:00: 00 [facility] Herpes zoster Herpes zoster Disease Active 04-06 00:00: 00 Overview: Formattin g of this note might be different from the original. ICD10 Diagnosis Term Care Director Utility [facility] Human immunodefi ciency virus (HIV) disease Human immunodefi ciency virus (HIV) disease Disease Active 04-06 00:00: 00 [facility] Hypertensi on Condition Active 2017-12-21 10:15:14 Rupert Tiwari [facility] HIV INFECTION Condition Active 2017-12-21 10:15:14 Rupert Tiwari No OI's, willie ~ [address] [facility] History of Past Illness Condition Name Condition Details Condition Category Status Onset Date Resolution Date Last Treatment Date Treating Clinician Comments Source Regular astigmatis m, bilateral Condition Inactiv e 06-09 00:00: 00 2017-12-21 00:00:00 2017-12-21 10:31:37 Rupert Tiwari [facility] Myopia - OU Condition Inactiv e 06-09 00:00: 00 2017-12-21 00:00:00 2017-12-21 10:31:37 Rupert Tiwari [facility] Screening examinatio n for other specified viral diseases Condition Inactiv e 06-09 00:00: 00 2016-06-16 00:00:00 2016-06-09 09:56:49 Casa Riggs [facility] SPECIAL SCREENING EXAMINATIO N OTH SPEC VIRAL DZ Condition Inactiv e 2011-11 00:00: 00 2016-05-06 00:00:00 2016-05-06 10:53:58 Rupert Tiwari [facility] MYOPIA Condition Inactiv e 2011-11 00:00: 00 2016-05-06 00:00:00 2016-05-06 10:53:58 Rupert Tiwari [facility] ASTIGMATIS M Condition Inactiv e 2011-11 00:00: 00 2016-05-06 00:00:00 2016-05-06 10:53:58 Rupert Tiwari [facility] Allergies, Adverse Reactions, Alerts Allergy Name Allergy Type Status Severity Reaction(s) Onset Date Inactive Date Treating Clinician Comments Source CODEINE Drug allergy (disorde r) Active Low Criticali ty rash 2011-11 00:00: [facility] CODE[facility] DRUG INGREDI Active High Rash 04-06 00:00: 00 [facility] Codeine Propensi ty to adverse reaction s to drug Active Rash 04-06 00:00: 00 [facility] Social History Social Habit Start Date Stop Date Quantity Comments [facility] intake 2023-11-28 00:00:00 2023-11-28 00:00:00 Current non-drinker of alcohol (finding) [facility] Exposure to SARS-CoV-2 (event) 2023-04-07 00:00:00 2023-04-17 11:19:00 Not sure [facility] History of Social function 2023-04-17 00:00:00 2023-04-17 00:00:00 [facility] Cigarettes smoked current (pack per day) - Reported 2022-09-12 00:00:00 2022-09-12 00:00:00 [facility] Cigarette pack-years 2022-09-12 00:00:00 2022-09-12 00:00:00 [facility] Tobacco use and exposure 2022-09-12 00:00:00 2022-09-12 00:00:00 Smokeless tobacco non-user [facility] albumin, serum 2019-11-02 11:10:00 2019-11-02 11:10:00 4.3 g/dL [facility] drug use 2019-04-26 15:28:24 2019-04-26 15:28:24 Never [facility] alcohol use 2019-04-26 15:28:24 2019-04-26 15:28:24 Currently Count Includes [facility] social history reviewed E&M 2019-04-26 15:28:24 2019-04-26 15:28:24 reviewed today [facility] social history E&M 2019-04-26 15:28:24 2019-04-26 15:28:24 Single. Not homeless. Born in [facility]. City: [place]. State: [place]. Employed full-time. [employer] . Highest education level: some college. Sex at : Male. Sexual orientation: [place]. Gender identity: Male. Gender of partner(s): Male. Age of first sexual intercourse: 16. Sexually Active: No. driven Count Includes [facility] sexual orientation 2019-04-26 15:28:24 2019-04-26 15:28:24 [place] Count Includes [facility] PHQ2 Questionairre Score 2019-04-26 15:28:24 2019-04-26 15:28:24 Count Includes [facility] assessment of health literacy ([facility] 2014 Standards, 3C10) 2019-04-26 15:28:24 2019-04-26 15:28:24 Adequate Count Includes [facility] time of call 2019-04-25 11:55:04 2019-04-25 11:55:04 04/25/2019 11:55 AM Count Includes [facility] smoking, advice to quit 2017-04-17 10:47:27 2017-04-17 10:47:27 Yes Count Includes [facility] cigarettes, number smoked per day 2016-09-21 09:13:37 2016-09-21 09:13:37 Count Includes [facility] age when patient began smoking 2016-09-14 10:38:38 2016-09-14 10:38:38 Count Includes [facility] tobacco use (cigarettes, cigar, chew, pipe) 2016-09-14 10:38:38 2016-09-14 10:38:38 Currently Count Includes [facility] alcohol use, frequency 2016-06-09 11:43:33 2016-06-09 11:43:33 few times per month Count Includes [facility] home/family situation, assessment 2016-06-09 11:43:33 2016-06-09 11:43:33 LIves with sister and his father and her 2 sons.Counts on them for work. Count Includes [facility] family support 2016-06-09 11:43:33 2016-06-09 11:43:33 Grew up in a two parent family with a younger sister. Father was a [employer] employee and mother worked as a postal employee mother of scleroderma. Count Includes [facility] Occupation #1 2016-05-06 09:53:46 2016-05-06 09:53:46 [employer] Count Includes [facility] alcohol use, number maximum drinks per occasion 2016-05-06 09:53:46 2016-05-06 09:53:46 9 drinks per month Count Includes [facility] smoking, year quit 2016-05-06 09:53:46 2016-05-06 09:53:46 Count Includes [facility] sex at 2016-05-06 09:53:46 2016-05-06 09:53:46 Male Count Includes [facility] patient considered to be homeless 2016-05-06 09:53:46 2016-05-06 09:53:46 No Count Includes [facility] History of tobacco use 2013-12-07 00:00:00 Cigarette Smoker [facility] Sex Assigned At 1980 00:00:00 1980 00:00:00 [facility] Smoking Status Start Date Stop Date Source Ex-smoker 2022-09-12 00:00:00 2022-09-12 00:00:00 [facility] Smokes tobacco daily (finding) 2017-04-17 10:47:27 [facility] Occasional tobacco smoker (finding) 2016-09-14 10:38:38 [facility] Never smoked tobacco (finding) [facility] Medications Ordered Medication Name Filled Medication Name Start Date Stop Date Current Medication? Ordering Clinician Indication Dosage Frequency Signature (SIG) Comments Components Source flash glucose sensor (FREESTYLE HELEN 14 DAY SENSOR) Kit 01-14 00:00: 00 Yes [id number] USE DIRECT EVERY 14 DAY [facility] metformin ER 500 mg 24 hr tablet 01-11 00:00: 00 Yes [id number] Take 4 tabs once daily [facility] fenofibrate 48 mg tablet 01-11 00:00: 00 Yes [id number] 48mg Take 1 tablet by mouth in the morning. [facility] dulaglutide (TRULICITY) 3 mg/0.5 mL PnIj 01-11 00:00: 00 Yes [id number] 3mg inject 1 Pen under the skin weekly. [facility] emtricitab- rilpivir-te nofo ala (ODEFSEY) 200-25-25 mg Tab 01-11 00:00: 00 Yes [id number] 1{tbl} Take 1 tablet by mouth in the morning. [facility] lisinopriL 40 mg tablet 01-11 00:00: 00 Yes [id number] 40mg Take 1 tablet by mouth in the morning. [facility] metformin ER 500 mg 24 hr tablet 01-11 00:00: 00 Yes [id number] Take 4 tabs once daily [facility] fenofibrate 48 mg tablet 01-11 00:00: 00 Yes [id number] 48mg Take 1 tablet by mouth in the morning. [facility] dulaglutide (TRULICITY) 3 mg/0.5 mL PnIj 01-11 00:00: 00 Yes [id number] 3mg inject 1 Pen under the skin weekly. [facility] emtricitab- rilpivir-te nofo ala (ODEFSEY) 200-25-25 mg Tab 01-11 00:00: 00 Yes [id number] 1{tbl} Take 1 tablet by mouth in the morning. [facility] lisinopriL 40 mg tablet 01-11 00:00: 00 Yes [id number] 40mg Take 1 tablet by mouth in the morning. [facility] LISINOPRIL 40 mg tablet 2022-11 00:00: 00 Yes [id number] TAKE ONE TABLET BY MOUTH DAILY [facility] LISINOPRIL 40 mg tablet 2022-11 00:00: 00 Yes [id number] TAKE ONE TABLET BY MOUTH DAILY [facility] LISINOPRIL 40 mg tablet 2022-11 00:00: 00 01-09 00:00 :00 No [id number] TAKE ONE TABLET BY MOUTH DAILY [facility] emtricitab- rilpivir-te nofo ala (ODEFSEY) 200-25-25 mg Tab 08-02 00:00: 00 Yes [id number] TAKE ONE TABLET BY MOUTH DAILY WITH FOOD [facility] emtricitab- rilpivir-te nofo ala (ODEFSEY) 200-25-25 mg Tab 2023-0 9-27 00:00: 00 Yes [id number] TAKE ONE TABLET BY MOUTH DAILY WITH FOOD [facility] emtricitab- rilpivir-te nofo ala (ODEFSEY) 200-25-25 mg Tab 2023-0 9-27 00:00: 00 Yes [id number] TAKE ONE TABLET BY MOUTH DAILY WITH FOOD [facility] emtricitab- rilpivir-te nofo ala (ODEFSEY) 200-25-25 mg Tab 2023-0 9-27 00:00: 00 Yes [id number] TAKE ONE TABLET BY MOUTH DAILY WITH FOOD [facility] emtricitab- rilpivir-te nofo ala (ODEFSEY) 200-25-25 mg Tab 3-0 9-27 00:00: 00 Yes [id number] TAKE ONE TABLET BY MOUTH DAILY WITH FOOD [facility] emtricitab- rilpivir-te nofo ala (ODEFSEY) 200-25-25 mg Tab 2023-0 9-27 00:00: 00 Yes [id number] TAKE ONE TABLET BY MOUTH DAILY WITH FOOD [facility] emtricitab- rilpivir-te nofo ala (ODEFSEY) 200-25-25 mg Tab 3-0 9-27 00:00: 00 Yes [id number] TAKE ONE TABLET BY MOUTH DAILY WITH FOOD [facility] emtricitab- rilpivir-te nofo ala (ODEFSEY) 200-25-25 mg Tab 2023-0 9-27 00:00: 00 Yes [id number] TAKE ONE TABLET BY MOUTH DAILY WITH FOOD [facility] emtricitab- rilpivir-te nofo ala (ODEFSEY) 200-25-25 mg Tab 2023-0 9-27 00:00: 00 Yes [id number] TAKE ONE TABLET BY MOUTH DAILY WITH FOOD [facility] emtricitab- rilpivir-te nofo ala (ODEFSEY) 200-25-25 mg Tab 2023-0 9-27 00:00: 00 01-09 00:00 :00 No [id number] TAKE ONE TABLET BY MOUTH DAILY WITH FOOD [facility] fenofibrate 48 mg tablet 3-0 6-15 00:00: 00 Yes [id number] TAKE ONE TABLET BY MOUTH DAILY [facility] dulaglutide (TRULICITY) 3 mg/0.5 mL PnIj 2023-0 6-15 00:00: 00 Yes [id number] 3mg inject 1 Pen under the skin weekly. [facility] fenofibrate 48 mg tablet 2022-0 6-15 00:00: 00 Yes [id number] TAKE ONE TABLET BY MOUTH DAILY [facility] dulaglutide (TRULICITY) 3 mg/0.5 mL PnIj 2023-0 6-15 00:00: 00 Yes [id number] 3mg inject 1 Pen under the skin weekly. [facility] fenofibrate 48 mg tablet 2022-0 6-15 00:00: 00 Yes [id number] TAKE ONE TABLET BY MOUTH DAILY [facility] dulaglutide (TRULICITY) 3 mg/0.5 mL PnIj 2023-0 6-15 00:00: 00 Yes [id number] 3mg inject 1 Pen under the skin weekly. [facility] fenofibrate 48 mg tablet 2022-0 6-15 00:00: 00 Yes [id number] TAKE ONE TABLET BY MOUTH DAILY [facility] dulaglutide (TRULICITY) 3 mg/0.5 mL PnIj 2023-0 6-15 00:00: 00 Yes [id number] 3mg inject 1 Pen under the skin weekly. [facility] fenofibrate 48 mg tablet 2022-0 6-15 00:00: 00 Yes [id number] TAKE ONE TABLET BY MOUTH DAILY [facility] dulaglutide (TRULICITY) 3 mg/0.5 mL PnIj 2023-0 6-15 00:00: 00 Yes [id number] 3mg inject 1 Pen under the skin weekly. [facility] fenofibrate 48 mg tablet 3-0 6-15 00:00: 00 Yes [id number] TAKE ONE TABLET BY MOUTH DAILY [facility] dulaglutide (TRULICITY) 3 mg/0.5 mL PnIj 2023-0 6-15 00:00: 00 Yes [id number] 3mg inject 1 Pen under the skin weekly. [facility] fenofibrate 48 mg tablet 3-0 6-15 00:00: 00 Yes [id number] TAKE ONE TABLET BY MOUTH DAILY [facility] dulaglutide (TRULICITY) 3 mg/0.5 mL PnIj 3-0 6-15 00:00: 00 Yes [id number] 3mg inject 1 Pen under the skin weekly. [facility] fenofibrate 48 mg tablet 3-0 6-15 00:00: 00 Yes [id number] TAKE ONE TABLET BY MOUTH DAILY [facility] dulaglutide (TRULICITY) 3 mg/0.5 mL PnIj 2023-0 6-15 00:00: 00 Yes [id number] 3mg inject 1 Pen under the skin weekly. [facility] fenofibrate 48 mg tablet 3-0 6-15 00:00: 00 Yes [id number] TAKE ONE TABLET BY MOUTH DAILY [facility] dulaglutide (TRULICITY) 3 mg/0.5 mL PnIj 3-0 6-15 00:00: 00 Yes [id number] 3mg inject 1 Pen under the skin weekly. [facility] fenofibrate 48 mg tablet 2022-0 6-15 00:00: 00 Yes [id number] TAKE ONE TABLET BY MOUTH DAILY [facility] dulaglutide (TRULICITY) 3 mg/0.5 mL PnIj 3-0 6-15 00:00: 00 Yes [id number] 3mg inject 1 Pen under the skin weekly. [facility] fenofibrate 48 mg tablet 3-0 6-15 00:00: 00 01-09 00:00 :00 No [id number] TAKE ONE TABLET BY MOUTH DAILY [facility] dulaglutide (TRULICITY) 3 mg/0.5 mL PnIj 2023-0 6-15 00:00: 00 01-09 00:00 :00 No [id number] 3mg inject 1 Pen under the skin weekly. [facility] dulaglutide (TRULICITY) 1.5 mg/0.5 mL PnIj 2023-0 6-12 00:00: 00 Yes [id number] 1.5mg inject 1 Pen under the skin weekly. [facility] metformin ER 500 mg 24 hr tablet 04-17 00:00: 00 Yes [id number] Take 4 tabs once daily [facility] dulaglutide (TRULICITY) 1.5 mg/0.5 mL PnIj 04-17 00:00: 00 Yes [id number] 1.5mg inject 1 Pen under the skin weekly. [facility] metformin ER 500 mg 24 hr tablet 04-17 00:00: 00 Yes [id number] Take 4 tabs once daily [facility] metformin ER 500 mg 24 hr tablet 04-17 00:00: 00 Yes [id number] Take 4 tabs once daily [facility] metformin ER 500 mg 24 hr tablet 04-17 00:00: 00 Yes [id number] [facility] 24 hr tablet 04-17 00:00: 00 Yes [id number] Take 4 tabs once daily [facility] metformin ER 500 mg 24 hr tablet 04-17 00:00: 00 Yes [id number] Take 4 tabs once daily [facility] metformin ER 500 mg 24 hr tablet 04-17 00:00: 00 Yes [id number] Take 4 tabs once daily [facility] mg 24 hr tablet 04-17 00:00: 00 Yes [id number] Take 4 tabs once daily [facility] metformin ER 500 mg 24 hr tablet 04-17 00:00: 00 Yes [id number] Take 4 tabs once daily [facility] metformin ER 500 mg 24 hr tablet 04-17 00:00: 00 Yes [id number] Take 4 tabs once daily [facility] metformin ER 500 mg 24 hr tablet 04-17 00:00: 00 Yes [id number] Take 4 tabs once daily [facility] 500 mg 24 hr tablet 04-17 00:00: 00 Yes [id number] Take 4 tabs once daily [facility] metformin ER 500 mg 24 hr tablet 3-0 -12 00:00: 00 01-09 00:00 :00 No [id number] Take 4 tabs once daily [facility] dulaglutide (TRULICITY) 1.5 mg/0.5 mL PnIj 3-0 6-12 00:00: 00 04-20 00:00 :00 No [id number] 1.5mg inject 1 Pen under the skin weekly. [facility] dulaglutide (TRULICITY) 1.5 mg/0.5 mL PnIj 2023-0 5-25 00:00: 00 Yes [id number] 1.5mg inject 1 Pen under the skin weekly. Please call our office at to schedule your follow up appointmen t. Thank you [facility] dulaglutide (TRULICITY) 1.5 mg/0.5 mL PnIj 3-0 5-25 00:00: 00 Yes [id number] 1.5mg inject 1 Pen under the skin weekly. Please call our office at [phone] to schedule your follow up appointmen t. Thank you [facility] dulaglutide (TRULICITY) 1.5 mg/0.5 mL PnIj 3-0 5-25 00:00: 00 Yes [id number] 1.5mg inject 1 Pen under the skin weekly. Please call our office at to schedule your follow up appointmen t. Thank you [facility] dulaglutide (TRULICITY) 1.5 mg/0.5 mL PnIj 3-0 5-25 00:00: 00 04-17 00:00 :00 No [id number] 1.5mg inject 1 Pen under the skin weekly. Please call our office at to schedule your follow up appointmen t. Thank you [facility] dulaglutide (TRULICITY) 1.5 mg/0.5 mL PnIj 2023-0 5-25 00:00: 00 04-17 00:00 :00 No [id number] 1.5mg inject 1 Pen under the skin weekly. Please call our office at to schedule your follow up appointmarcelle menjivar Thank you [facility] flash glucose sensor (FREESTYLE HELEN 14 DAY SENSOR) Kit 4-13 00:00: 00 Yes USE DIRECTED EVERY 14 DAYS [facility] flash glucose sensor (FREESTYLE HELEN 14 DAY SENSOR) Kit 0 4-13 00:00: 00 Yes USE DIRECTED EVERY 14 DAYS [facility] flash glucose sensor (FREESTYLE HELEN 14 DAY SENSOR) Kit 4-13 00:00: 00 Yes USE DIRECTED EVERY 14 DAYS [facility] flash glucose sensor (FREESTYLE HELEN 14 DAY SENSOR) Kit 4-13 00:00: 00 04-17 00:00 :00 No USE DIRECTED EVERY 14 DAYS [facility] flash glucose sensor (FREESTYLE HELEN 14 DAY SENSOR) Kit 4-13 00:00: 00 04-17 00:00 :00 No USE DIRECTED EVERY 14 DAYS [facility] dulaglutide (TRULICITY) 1.5 mg/0.5 mL PnIj 0 2-16 00:00: 00 Yes [id number] INJECT 1.5MG UNDER THE SKIN WEEKLY [facility] dulaglutide (TRULICITY) 1.5 mg/0.5 mL PnIj 2022-0 2-16 00:00: 00 Yes [id number] INJECT 1.5MG UNDER THE SKIN WEEKLY [facility] dulaglutide (TRULICITY) 1.5 mg/0.5 mL PnIj 0 2-16 00:00: 00 03-30 00:00 :00 No [id number] INJECT 1.5MG UNDER THE SKIN WEEKLY [facility] FENOFIBRATE 48 mg tablet 1-19 00:00: 00 Yes [id number] TAKE ONE TABLET BY MOUTH DAILY [facility] FENOFIBRATE 48 mg tablet 1-19 00:00: 00 Yes [id number] TAKE ONE TABLET BY MOUTH DAILY [facility] FENOFIBRATE 48 mg tablet 2022-0 1-19 00:00: 00 Yes [id number] TAKE ONE TABLET [facility] MOUTH [facility] mg tablet 0 11-24 00:00: 00 Yes [id number] TAKE ONE TABLET BY MOUTH DAILY [facility] FENOFIBRATE 48 mg tablet 0 11-24 00:00: 00 Yes [id number] TAKE ONE TABLET BY MOUTH DAILY [facility] F[facility] mg tablet 0 11-24 00:00: 00 Yes [id number] TAKE ONE TABLET BY MOUTH DAILY [facility] FENOFIB[facility] 48 mg tablet 0 11-24 00:00: 00 Yes [id number] TAKE ONE TABLET BY MOUTH DAILY [facility] FENOFIBRATE 48 mg tablet 0 11-24 00:00: 00 Yes [id number] TAKE ONE TABLET BY MOUTH DAILY [facility] FENOFIBRATE 48 mg tablet 0 11-24 00:00: 00 04-20 00:00 :00 No [id number] TAKE ONE TABLET BY MOUTH DAILY [facility] TRULICITY 1.5 mg/0.5 mL PnIj 2021-11 00:00: 00 Yes [id number] INJECT 1.5MG UNDER THE SKIN WEEKLY [facility] TRULICITY 1.5 mg/0.5 mL PnIj 2021-11 00:00: 00 Yes [id number] INJECT 1.5MG UNDER THE SKIN WEEKLY [facility] TRULICITY 1.5 mg/0.5 mL PnIj 2021-11 00:00: 00 12-22 00:00 :00 No [id number] INJECT 1.5MG UNDER THE SKIN WEEKLY [facility] lisinopriL 40 mg tablet 2021-11 00:00: 00 Yes [id number] TAKE ONE TABLET BY MOUTH DAILY [facility] lisinopriL 40 mg tablet 2021-11 00:00: 00 Yes [id number] TAKE ONE TABLET BY MOUTH DAILY [facility] lisinopriL 40 mg tablet 2021-11 00:00: 00 Yes [id number] TAKE ONE TABLET BY MOUTH DAILY [facility] lisinopriL 40 mg tablet 2021-11 00:00: 00 Yes [id number] TAKE ONE TABLET BY MOUTH DAILY [facility] lisinopriL 40 mg tablet 2021-11 00:00: 00 Yes [id number] TAKE ONE TABLET BY MOUTH DAILY [facility] lisinopriL 40 mg tablet 2021-11 00:00: 00 Yes [id number] TAKE ONE TABLET BY MOUTH DAILY [facility] lisinopriL 40 mg tablet 2021-11 00:00: 00 Yes [id number] TAKE ONE TABLET BY MOUTH DAILY [facility] lisinopriL 40 mg tablet 2021-11 00:00: 00 Yes [id number] TAKE ONE TABLET BY MOUTH DAILY [facility] lisinopriL 40 mg tablet 2021-11 00:00: 00 Yes [id number] TAKE ONE TABLET BY MOUTH DAILY [facility] lisinopriL 40 mg tablet 2021-11 00:00: 00 Yes [id number] TAKE ONE TABLET BY MOUTH DAILY [facility] lisinopriL 40 mg tablet 2021-11 00:00: 00 Yes [id number] TAKE ONE TABLET BY MOUTH DAILY [facility] l[facility] mg tablet 2021-11 00:00: 00 Yes [id number] TAKE ONE TABLET BY MOUTH DAILY [facility] lisinopriL 40 mg tablet 2021-11 00:00: 00 Yes [id number] TAKE ONE TABLET BY MOUTH DAILY [facility] lisinopriL 40 mg tablet 2021-11 00:00: 00 Yes [id number] TAKE ONE TABLET BY MOUTH DAILY [facility] lisinopriL 40 mg tablet 2021-11 00:00: 00 Yes [id number] TAKE ONE TABLET BY MOUTH DAILY [facility] lisinopriL 40 mg tablet 2021-11 00:00: 00 Yes [id number] TAKE ONE TABLET BY MOUTH DAILY [facility] lisinopriL 40 mg tablet 2021-11 00:00: 00 Yes [id number] TAKE ONE TABLET BY MOUTH DAILY [facility] lisinopriL 40 mg tablet 2021-11 00:00: 00 Yes [id number] TAKE ONE TABLET BY MOUTH DAILY [facility] lisinopriL 40 mg tablet 2021-11 00:00: 00 Yes [id number] TAKE ONE TABLET BY MOUTH DAILY [facility] lisinopriL 40 mg tablet 2021-11 00:00: 00 Yes [id number] TAKE ONE TABLET BY MOUTH DAILY [facility] lisinopriL 40 mg tablet 2021-11 00:00: 00 Yes [id number] TAKE ONE TABLET BY MOUTH DAILY [facility] lisinopriL 40 mg tablet 2021-11 00:00: 00 Yes [id number] TAKE ONE TABLET BY MOUTH DAILY [facility] lisinopriL 40 mg tablet 2021-11 00:00: 00 Yes [id number] TAKE ONE TABLET BY MOUTH DAILY [facility] lisinopriL 40 mg tablet 2021-11 00:00: 00 Yes [id number] TAKE ONE TABLET BY MOUTH DAILY [facility] lisinopriL 40 mg tablet 2021-11 00:00: 00 09-21 00:00 :00 No [id number] TAKE ONE TABLET BY MOUTH DAILY [facility] TRULICITY 1.5 mg/0.5 mL PnIj 2-0 08-03 00:00: 00 Yes [id number] INJECT 1.5MG UNDER THE SKIN WEEKLY [facility] TRULICITY 1.5 mg/0.5 mL PnIj 2-0 08-03 00:00: 00 Yes [id number] INJECT 1.5MG UNDER THE SKIN WEEKLY [facility] TRULICITY 1.5 mg/0.5 mL PnIj 2022-0 08-03 00:00: 00 Yes [id number] INJECT 1.5MG UNDER THE SKIN WEEKLY [facility] TRULICITY 1.5 mg/0.5 mL PnIj 2-0 08-03 00:00: 00 Yes [id number] INJECT 1.5MG UNDER THE SKIN WEEKLY [facility] TRULICITY 1.5 mg/0.5 mL PnIj 2021-0 08-03 00:00: 00 Yes [id number] INJECT 1.5MG UNDER THE SKIN WEEKLY [facility] TRULICITY 1.5 mg/0.5 mL PnIj 0 08-03 00:00: 00 Yes [id number] INJECT 1.5MG UNDER THE SKIN WEEKLY [facility] TRULICITY 1.5 mg/0.5 mL PnIj 08-03 00:00: 00 10-26 00:00 :00 No [id number] INJECT 1.5MG UNDER THE SKIN WEEKLY [facility] TRULICITY 1.5 mg/0.5 mL PnIj 08-03 00:00: 00 10-26 00:00 :00 No [id number] INJECT 1.5MG UNDER THE SKIN WEEKLY [facility] TRULICITY 1.5 mg/0.5 mL PnIj 08-03 00:00: 00 10-26 00:00 :00 No [id number] INJECT 1.5MG UNDER THE SKIN WEEKLY [facility] FENOFIBRATE 48 mg tablet 07-15 00:00: 00 Yes [id number] TAKE ONE TABLET BY MOUTH DAILY [facility] metFORMIN 1,000 mg tablet 07-15 00:00: 00 Yes [id number] TAKE ONE TABLET BY MOUTH TWICE A DAY [facility] lisinopriL 20 mg tablet 07-15 00:00: 00 Yes [id number] TAKE ONE TABLET BY MOUTH DAILY [facility] ODEFSEY 200-25-25 mg Tab 07-15 00:00: 00 Yes [id number] TAKE ONE TABLET BY MOUTH DAILY WITH FOOD [facility] FENOFIBRATE 48 mg tablet 07-15 00:00: 00 Yes [id number] TAKE ONE TABLET BY MOUTH DAILY [facility] metFORMIN 1,000 mg tablet 07-15 00:00: 00 Yes [id number] TAKE ONE TABLET BY MOUTH TWICE A DAY [facility] lisinopriL 20 mg tablet 07-15 00:00: 00 Yes [id number] TAKE ONE TABLET BY MOUTH DAILY [facility] ODEFSEY 200-25-25 mg Tab 2021-0 07-15 00:00: 00 Yes [id number] TAKE ONE TABLET BY MOUTH DAILY WITH FOOD [facility] FENOFIBRATE 48 mg tablet 2021-0 07-15 00:00: 00 Yes [id number] TAKE ONE TABLET BY MOUTH DAILY [facility] metFORMIN 1,000 mg tablet 07-15 00:00: 00 Yes [id number] TAKE ONE TABLET BY MOUTH TWICE A DAY [facility] lisinopriL 20 mg tablet 2021-0 07-15 00:00: 00 Yes [id number] TAKE ONE TABLET BY MOUTH DAILY [facility] ODEFSEY 200-25-25 mg Tab 0 07-15 00:00: 00 Yes [id number] TAKE ONE TABLET BY MOUTH DAILY WITH FOOD [facility] FENOFIBRATE 48 mg tablet 2021-0 07-15 00:00: 00 Yes [id number] TAKE ONE TABLET BY MOUTH DAILY [facility] metFORMIN 1,000 mg tablet 0 07-15 00:00: 00 Yes [id number] TAKE ONE TABLET BY MOUTH TWICE A DAY [facility] lisinopriL 20 mg tablet 2021-0 07-15 00:00: 00 Yes [id number] TAKE ONE TABLET BY MOUTH DAILY [facility] ODEFSEY 200-25-25 mg Tab 2021-0 07-15 00:00: 00 Yes [id number] TAKE ONE TABLET BY MOUTH DAILY WITH FOOD [facility] FENOFIBRATE 48 mg tablet 0 07-15 00:00: 00 Yes [id number] TAKE ONE TABLET BY MOUTH DAILY [facility] metFORMIN 1,000 mg tablet 2021-0 07-15 00:00: 00 Yes [id number] TAKE ONE TABLET BY MOUTH TWICE A DAY [facility] ODEFSEY 200-25-25 mg Tab 2021-0 07-15 00:00: 00 Yes [id number] TAKE ONE TABLET BY MOUTH DAILY WITH FOOD [facility] FENOFIBRATE 48 mg tablet 2021-0 07-15 00:00: 00 Yes [id number] TAKE ONE TABLET BY MOUTH DAILY [facility] metFORMIN 1,000 mg tablet 0 07-15 00:00: 00 Yes [id number] TAKE ONE TABLET BY MOUTH TWICE A DAY [facility] ODEFSEY 200-25-25 mg Tab 07-15 00:00: 00 Yes [id number] TAKE ONE TABLET BY MOUTH DAILY WITH FOOD [facility] FENOFIBRATE 48 mg tablet 07-15 00:00: 00 Yes [id number] TAKE ONE TABLET BY MOUTH DAILY [facility] metFORMIN 1,000 mg tablet 07-15 00:00: 00 Yes [id number] TAKE ONE TABLET BY MOUTH TWICE A DAY [facility] ODEFSEY 200-25-25 mg Tab 07-15 00:00: 00 Yes [id number] TAKE ONE TABLET BY MOUTH DAILY WITH FOOD [facility] FENOFIBRATE 48 mg tablet 07-15 00:00: 00 Yes [id number] TAKE ONE TABLET BY MOUTH DAILY [facility] metFORMIN 1,000 mg tablet 07-15 00:00: 00 Yes [id number] TAKE ONE TABLET BY MOUTH TWICE A DAY [facility] ODEFSEY 200-25-25 mg Tab 07-15 00:00: 00 Yes [id number] TAKE ONE TABLET BY MOUTH DAILY WITH FOOD [facility] FENOFIBRATE 48 mg tablet 07-15 00:00: 00 Yes [id number] TAKE ONE TABLET BY MOUTH DAILY [facility] metFORMIN 1,000 mg tablet 07-15 00:00: 00 Yes [id number] TAKE ONE TABLET BY MOUTH TWICE A DAY [facility] ODEFSEY 200-25-25 mg Tab 07-15 00:00: 00 Yes [id number] TAKE ONE TABLET BY MOUTH DAILY WITH FOOD [facility] FENOFIBRATE 48 mg tablet 07-15 00:00: 00 Yes [id number] TAKE ONE TABLET BY MOUTH DAILY [facility] metFORMIN 1,000 mg tablet 07-15 00:00: 00 Yes [id number] TAKE ONE TABLET BY MOUTH TWICE A DAY [facility] ODEFSEY 200-25-25 mg Tab 2021-0 07-15 00:00: 00 Yes [id number] TAKE ONE TABLET BY MOUTH DAILY WITH FOOD [facility] metFORMIN 1,000 mg tablet 2021-0 07-15 00:00: 00 Yes [id number] TAKE ONE TABLET BY MOUTH TWICE A DAY [facility] ODEFSEY 200-25-25 mg Tab 0 07-15 00:00: 00 Yes [id number] TAKE ONE TABLET BY MOUTH DAILY WITH FOOD [facility] metFORMIN 1,000 mg tablet 2021-0 07-15 00:00: 00 Yes [id number] TAKE ONE TABLET BY MOUTH TWICE A DAY [facility] ODEFSEY 200-25-25 mg Tab 2021-0 07-15 00:00: 00 Yes [id number] TAKE ONE TABLET BY MOUTH DAILY WITH FOOD [facility] metFORMIN 1,000 mg tablet 2021-0 07-15 00:00: 00 Yes [id number] TAKE ONE TABLET BY MOUTH TWICE A DAY [facility] ODEFSEY 200-25-25 mg Tab 2021-0 07-15 00:00: 00 Yes [id number] TAKE ONE TABLET BY MOUTH DAILY WITH FOOD [facility] metFORMIN 1,000 mg tablet 2021-0 07-15 00:00: 00 Yes [id number] TAKE ONE TABLET BY MOUTH TWICE A DAY [facility] ODEFSEY 200-25-25 mg Tab 2021-0 07-15 00:00: 00 Yes [id number] TAKE ONE TABLET BY MOUTH DAILY WITH FOOD [facility] metFORMIN 1,000 mg tablet 2021-0 07-15 00:00: 00 Yes [id number] TAKE ONE TABLET BY MOUTH TWICE A DAY [facility] ODEFSEY 200-25-25 mg Tab 2021-0 07-15 00:00: 00 Yes [id number] TAKE ONE TABLET BY MOUTH DAILY WITH FOOD [facility] metFORMIN 1,000 mg tablet 2021-0 07-15 00:00: 00 Yes [id number] TAKE ONE TABLET BY MOUTH TWICE A DAY [facility] ODEFSEY 200-25-25 mg Tab 2021-0 07-15 00:00: 00 Yes [id number] TAKE ONE TABLET BY MOUTH DAILY WITH FOOD [facility] metFORMIN 1,000 mg tablet 2021-0 07-15 00:00: 00 Yes [id number] TAKE ONE TABLET BY MOUTH TWICE A DAY [facility] ODEFSEY 200-25-25 mg Tab 0 07-15 00:00: 00 Yes [id number] TAKE ONE TABLET BY MOUTH DAILY WITH FOOD [facility] metFORMIN 1,000 mg tablet 0 07-15 00:00: 00 Yes [id number] TAKE ONE TABLET BY MOUTH TWICE A DAY [facility] ODEFSEY 200-25-25 mg Tab 0 07-15 00:00: 00 Yes [id number] TAKE ONE TABLET BY MOUTH DAILY WITH FOOD [facility] ODEFSEY 200-25-25 mg Tab 0 07-15 00:00: 00 Yes [id number] TAKE ONE TABLET BY MOUTH DAILY WITH FOOD [facility] ODEFSEY 200-25-25 mg Tab 07-15 00:00: 00 Yes [id number] TAKE ONE TABLET BY MOUTH DAILY WITH FOOD [facility] ODEFSEY 200-25-25 mg Tab 0 07-15 00:00: 00 Yes [id number] TAKE ONE TABLET BY MOUTH DAILY WITH FOOD [facility] ODEFSEY 200-25-25 mg Tab 0 07-15 00:00: 00 08-02 00:00 :00 No [id number] TAKE ONE TABLET BY MOUTH DAILY WITH FOOD [facility] metFORMIN 1,000 mg tablet 2021-07-15 00:00: 00 04-17 00:00 :00 No [id number] TAKE ONE TABLET BY MOUTH TWICE A DAY [facility] metFORMIN 1,000 mg tablet 2021-07-15 00:00: 00 04-17 00:00 :00 No [id number] TAKE ONE TABLET BY MOUTH TWICE A DAY [facility] FENOFIBRATE 48 mg tablet 2021-07-15 00:00: 00 11-24 00:00 :00 No [id number] TAKE ONE TABLET BY MOUTH DAILY [facility] FENOFIBRATE 48 mg tablet 07-15 00:00: 00 11-24 00:00 :00 No [id number] TAKE ONE TABLET BY MOUTH DAILY [facility] FENOFIBRATE 48 mg tablet 07-15 00:00: 00 11-24 00:00 :00 No [id number] TAKE ONE TABLET BY MOUTH DAILY [facility] lisinopriL 20 mg tablet 07-15 00:00: 00 09-12 00:00 :00 No [id number] TAKE ONE TABLET BY MOUTH DAILY [facility] lisinopriL 20 mg tablet 07-15 00:00: 00 09-12 00:00 :00 No [id number] TAKE ONE TABLET BY MOUTH DAILY [facility] FREESTYLE HELEN 14 DAY SENSOR Kit 05-10 00:00: 00 Yes USE DIRECTED EVERY 14 DAYS [facility] FREESTYLE HELNE 14 DAY SENSOR Kit 05-10 00:00: 00 Yes USE DIRECTED EVERY 14 DAYS [facility] FREESTYLE HELEN 14 DAY SENSOR Kit 0 05-10 00:00: 00 Yes USE DIRECTED EVERY 14 DAYS [facility] FREESTYLE HELEN 14 DAY SENSOR Kit 05-10 00:00: 00 Yes USE DIRECTED EVERY 14 DAYS [facility] FREESTYLE HELEN 14 DAY SENSOR Kit 05-10 00:00: 00 Yes USE DIRECTED EVERY 14 DAYS [facility] FREESTYLE HELEN 14 DAY SENSOR Kit 05-10 00:00: 00 Yes USE DIRECTED EVERY 14 DAYS [facility] FREESTYLE HELEN 14 DAY SENSOR Kit 05-10 00:00: 00 Yes USE DIRECTED EVERY 14 DAYS [facility] FREESTYLE HELEN 14 DAY SENSOR Kit 05-10 00:00: 00 Yes USE DIRECTED EVERY 14 DAYS [facility] FREESTYLE HELEN 14 DAY SENSOR Kit 0 - 00:00: 00 Yes USE DIRECTED EVERY [facility] FREESTYLE HELEN 14 DAY SENSOR Kit 0 05-10 00:00: 00 Yes USE DIRECTED EVERY 14 DAYS [facility] FREESTYLE HELEN 14 DAY SENSOR Kit 0 - 00:00: 00 Yes USE DIRECTED EVERY 14 DAYS [facility] FREESTYLE HELEN 14 DAY SENSOR Kit 05-10 00:00: 00 Yes USE DIRECTED EVERY 14 DAYS [facility] FREESTYLE HELEN 14 DAY SENSOR Kit 0 05-10 00:00: 00 Yes USE DIRECTED EVERY 14 DAYS [facility] FREESTYLE HELEN 14 DAY SENSOR Kit 0 05-10 00:00: 00 Yes USE DIRECTED EVERY 14 DAYS [facility] FREESTYLE HELEN 14 DAY SENSOR Kit 05-10 00:00: 00 - 00:00 :00 No USE DIRECTED EVERY 14 DAYS [facility] TRULICITY 1.5 mg/0.5 mL PnIj 2021-0 04-14 00:00: 00 Yes [id number] INJECT 1.5MG UNDER THE SKIN WEEKLY [facility] TRULICITY 1.5 mg/0.5 mL PnIj 2021-0 04-14 00:00: 00 Yes [id number] INJECT 1.5MG UNDER THE SKIN WEEKLY [facility] TRULICITY 1.5 mg/0.5 mL PnIj 2021-0 04-14 00:00: 00 08-03 00:00 :00 No [id number] INJECT 1.5MG UNDER THE SKIN WEEKLY [facility] ODEFSEY 200-25-25 mg Tab 01-10 00:00: 00 Yes [id number] TAKE 1 TABLET BY MOUTH EVERY DAY WITH FOOD [facility] lisinopriL 20 mg tablet 01-10 00:00: 00 Yes [id number] TAKE 1 TABLET BY MOUTH EVERY DAY [facility] metFORMIN 1,000 mg tablet 01-10 00:00: 00 Yes [id number] TAKE 1 TABLET BY MOUTH TWICE A DAY [facility] ODEFSEY 200-25-25 mg Tab 01-10 00:00: 00 07-15 00:00 :00 No [id number] TAKE 1 TABLET BY MOUTH EVERY DAY WITH FOOD [facility] lisinopriL 20 mg tablet 01-10 00:00: 00 07-15 00:00 :00 No [id number] TAKE 1 TABLET BY MOUTH EVERY DAY [facility] metFORMIN 1,000 mg tablet 01-10 00:00: 00 07-15 00:00 :00 No [id number] TAKE 1 TABLET BY MOUTH TWICE A DAY [facility] FENOFIBRATE 48 mg tablet 01-07 00:00: 00 Yes [id number] TAKE ONE TABLET BY MOUTH DAILY [facility] FENOFIBRATE 48 mg tablet 01-07 00:00: 00 07-15 00:00 :00 No [id number] TAKE ONE TABLET BY MOUTH DAILY [facility] ondansetron (ZOFRAN ODT) 8 mg disintegrat ing tablet 2020-11 00:00: 00 04-25 00:00 :00 No [id number] 8mg Take 1 tablet by mouth every 8 (eight) hours as needed for Nausea and Vomiting (N/V). [facility] flash glucose scanning reader (FREESTYLE HELEN 14 DAY READER) [facility] 04-26 00:00: 00 Yes [id number] 1{kit} 1 Kit as needed (to check glucose levels). [facility] flash glucose scanning reader (FREESTYLE HELEN 14 DAY READER) [facility] 04-26 00:00: 00 Yes [id number] 1{kit} 1 Kit as needed (to check glucose levels). [facility] flash glucose scanning reader (FREESTYLE HELEN 14 DAY READER) [facility] 04-26 00:00: 00 Yes [id number] 1{kit} 1 Kit as needed (to check glucose levels). [facility] flash glucose scanning reader (FREESTYLE HELEN 14 DAY READER) [facility] 04-26 00:00: 00 Yes [id number] 1{kit} 1 Kit as needed (to check glucose levels). [facility] flash glucose scanning reader (FREESTYLE HELEN 14 DAY READER) [facility] 04-26 00:00: 00 Yes [id number] 1{kit} 1 Kit as needed (to check glucose levels). [facility] flash glucose scanning reader (FREESTYLE HELEN 14 DAY READER) [facility] 04-26 00:00: 00 Yes [id number] 1{kit} 1 Kit as needed (to check glucose levels). [facility] flash glucose scanning reader (FREESTYLE HELEN 14 DAY READER) [facility] 04-26 00:00: 00 Yes [id number] 1{kit} 1 Kit as needed (to check glucose levels). [facility] flash glucose scanning reader (FREESTYLE HELEN 14 DAY READER) [facility] 04-26 00:00: 00 Yes [id number] 1{kit} 1 Kit as needed (to check glucose levels). [facility] flash glucose scanning reader (FREESTYLE HELEN 14 DAY READER) [facility] 04-26 00:00: 00 Yes [id number] 1{kit} 1 Kit as needed (to check glucose levels). [facility] flash glucose scanning reader (FREESTYLE HELEN 14 DAY READER) [facility] 04-26 00:00: 00 Yes [id number] 1{kit} 1 Kit as needed (to check glucose levels). [facility] flash glucose scanning reader (FREESTYLE HELEN 14 DAY READER) [facility] 04-26 00:00: 00 Yes [id number] 1{kit} 1 Kit as needed (to check glucose levels). [facility] flash glucose scanning reader (FREESTYLE HELEN 14 DAY READER) [facility] 04-26 00:00: 00 Yes [id number] 1{kit} 1 Kit as needed (to check glucose levels). [facility] flash glucose scanning reader (FREESTYLE HELEN 14 DAY READER) [facility] 04-26 00:00: 00 Yes [id number] 1{kit} 1 Kit as needed (to check glucose levels). [facility] flash glucose scanning reader (FREESTYLE HELEN 14 DAY READER) [facility] 04-26 00:00: 00 Yes [id number] 1{kit} 1 Kit as needed (to check glucose levels). [facility] flash glucose scanning reader (FREESTYLE HELEN 14 DAY READER) [facility] 04-26 00:00: 00 Yes [id number] 1{kit} 1 Kit as needed (to check glucose levels). [facility] flash glucose scanning reader (FREESTYLE HELEN 14 DAY READER) [facility] 04-26 00:00: 00 Yes [id number] 1{kit} 1 Kit as needed (to check glucose levels). [facility] flash glucose scanning reader (FREESTYLE HELEN 14 DAY READER) [facility] 04-26 00:00: 00 Yes [id number] 1{kit} 1 Kit as needed (to check glucose levels). [facility] flash glucose scanning reader (FREESTYLE HELEN 14 DAY READER) [facility] 04-26 00:00: 00 Yes [id number] 1{kit} 1 Kit as needed (to check glucose levels). [facility] flash glucose scanning reader (FREESTYLE HELEN 14 DAY READER) [facility] 04-26 00:00: 00 04-17 00:00 :00 No [id number] 1{kit} 1 Kit as needed (to check glucose levels). [facility] flash glucose scanning reader (FREESTYLE HELEN 14 DAY READER) [facility] 04-26 00:00: 00 04-17 00:00 :00 No [id number] 1{kit} 1 Kit as needed (to check glucose levels). [facility] lamoTRIgine 25 mg tablet 4- 00:00: 00 04-25 00:00 :00 No 25mg Take 25 mg by mouth daily. [facility] COMPLERA (EMTRICITAB -RILPIVIR-T ENOFOVIR) 200-25-300 MG TABS 2018-11 00:00: 00 Yes Rupert Tiwari TAKE ONE TABLET BY MOUTH ONCE DAILY WITH FOOD. STORE IN ORIGINAL BOTTLE AT ROOM TEMPERATUR E. [facility] (LISINOPRIL ) 20 MG TABS 15 00:00: 00 Yes Rupert Tiwari 1{Table t} 1xD TAKE 1 TABLET BY MOUTH EVERY DAY [facility] ANTABUSE 250 MG ORAL TABLET 2017-11 00:00: 00 Yes Dc Guerrero 1 1xD 1 By Mouth Every Day [facility] (METFORMIN HCL) 500 MG TABS 04-17 00:00: 00 Yes Rupert Tiwari 1 by mouth twice a day [facility] (NICOTINE) 21-14-7 MG/24HR KIT 2015-11 00:00: 00 Yes [facility] LEXAPRO (ESCITALOPR AM OXALATE) 10 MG TABS 07-21 00:00: 00 Yes Dc Lundydin 1 By Mouth Every Day [facility] RISPERDAL (RISPERIDON E) 2 MG TABS -04 00:00: 00 10-25 00:00 :00 No Robby Masters 1 By Mouth at bedtime [facility] MIRTAZAPINE (MIRTAZAPIN E TABS) TABS 2011-11 2-11 00:00: 00 10-25 00:00 :00 No [facility] Immunizations Ordered Immunization Name Filled Immunization Name Date Status Comments Source VACCINIA, SMALLPOX MONKEYPOX VACCINE LIVE, ADULT LOW DOSE 0.1ML, PF,ID 2022-10-11 00:00:00 Completed [facility] SMALLPOX MONKEYPOX VACCINE LIVE JYNNEOS, ADULT LOW DOSE 0.1ML, PF,ID 2022-10-11 00:00:00 Completed [facility] SMALLPOX MONKEYPOX VACCINE LIVE JYNNEOS, ADULT LOW DOSE 0.1ML, PF,ID 2022-10-11 00:00:00 Completed [facility] SMALLPOX MONKEYPOX VACCINE LIVE JYNNEOS, ADULT LOW DOSE 0.1ML, PF,ID 2022-10-11 00:00:00 Completed [facility] SMALLPOX MONKEYPOX VACCINE LIVE JYNNEOS, ADULT LOW DOSE 0.1ML, PF,ID 2022-10-11 00:00:00 Completed [facility] SMALLPOX MONKEYPOX VACCINE LIVE JYNNEOS, ADULT LOW DOSE 0.1ML, PF,ID 2022-10-11 00:00:00 Completed [facility] SMALLPOX MONKEYPOX VACCINE LIVE JYNNEOS, ADULT LOW DOSE 0.1ML, PF,ID 2022-10-11 00:00:00 Completed [facility] SMALLPOX MONKEYPOX VACCINE LIVE JYNNEOS, ADULT LOW DOSE 0.1ML, PF,ID 2022-10-11 00:00:00 Completed [facility] SMALLPOX MONKEYPOX VACCINE LIVE JYNNEOS, ADULT LOW DOSE 0.1ML, PF,ID 2022-10-11 00:00:00 Completed [facility] SMALLPOX MONKEYPOX VACCINE LIVE JYNNEOS, ADULT LOW DOSE 0.1ML, PF,ID 2022-10-11 00:00:00 Completed [facility] SMALLPOX MONKEYPOX VACCINE LIVE JYNNEOS, ADULT LOW DOSE 0.1ML, PF,ID 2022-10-11 00:00:00 Completed [facility] Influenza Virus Vaccine Quad IM, Preserv and ABX Free 6 MO-64 YRS 2022-09-12 00:00:00 Completed [facility] SARS-COV-2 COVID-19 VACCINE 12 YRS+, BIVALENT 0.5ML, IM, (MODERNA BOOSTER) 2022-09-12 00:00:00 Completed [facility] VACCINIA, SMALLPOX MONKEYPOX VACCINE LIVE, 0.5ML, PF,SQ 2022-09-12 00:00:00 Completed [facility] Influenza Virus Vaccine Quad IM, Preserv and ABX Free 6 MO-64 YRS 2022-09-12 00:00:00 Completed [facility] SARS-COV-2 COVID-19 VACCINE 12 YRS+, BIVALENT 0.5ML, IM, (MODERNA BOOSTER) 2022-09-12 00:00:00 Completed [facility] VACCINIA, SMALLPOX MONKEYPOX VACCINE LIVE, 0.5ML, PF,SQ 2022-09-12 00:00:00 Completed [facility] Influenza Virus Vaccine Quad IM, Preserv and ABX Free 6 MO-64 YRS 2022-09-12 00:00:00 Completed [facility] SARS-COV-2 COVID-19 VACCINE 12 YRS+, BIVALENT 0.5ML, IM, (MODERNA BOOSTER) 2022-09-12 00:00:00 Completed [facility] VACCINIA, SMALLPOX MONKEYPOX VACCINE LIVE, 0.5ML, PF,SQ 2022-09-12 00:00:00 Completed [facility] Influenza Virus Vaccine Quad IM, Preserv and ABX Free 6 MO-64 YRS 2022-09-12 00:00:00 Completed [facility] SARS-COV-2 COVID-19 VACCINE 12 YRS+, BIVALENT 0.5ML, IM, (MODERNA BOOSTER) 2022-09-12 00:00:00 Completed [facility] VACCINIA, SMALLPOX MONKEYPOX VACCINE LIVE, 0.5ML, PF,SQ 2022-09-12 00:00:00 Completed [facility] Influenza Virus Vaccine Quad IM, Preserv and ABX Free 6 MO-64 YRS 2022-09-12 00:00:00 Completed [facility] SARS-COV-2 COVID-19 VACCINE 12 YRS+, BIVALENT 0.5ML, IM, (MODERNA BOOSTER) 2022-09-12 00:00:00 Completed [facility] SMALLPOX MONKEYPOX VACCINE LIVE JYNNEOS, 0.5ML,PF,SQ 2022-09-12 00:00:00 Completed [facility] Influenza Virus Vaccine Quad IM, Preserv and ABX Free 6 MO-64 YRS 2022-09-12 00:00:00 Completed [facility] SARS-COV-2 COVID-19 VACCINE 12 YRS+, BIVALENT 0.5ML, IM, (MODERNA BOOSTER) 2022-09-12 00:00:00 Completed [facility] SMALLPOX MONKEYPOX VACCINE LIVE JYNNEOS, 0.5ML,PF,SQ 2022-09-12 00:00:00 Completed [facility] Influenza Virus Vaccine Quad IM, Preserv and ABX Free 6 MO-64 YRS 2022-09-12 00:00:00 Completed [facility] SARS-COV-2 COVID-19 VACCINE 12 YRS+, BIVALENT 0.5ML, IM, (MODERNA BOOSTER) 2022-09-12 00:00:00 Completed [facility] SMALLPOX MONKEYPOX VACCINE LIVE JYNNEOS, 0.5ML,PF,SQ 2022-09-12 00:00:00 Completed [facility] Influenza Virus Vaccine Quad IM, Preserv and ABX Free 6 MO-64 YRS 2022-09-12 00:00:00 Completed [facility] SARS-COV-2 COVID-19 VACCINE 12 YRS+, BIVALENT 0.5ML, IM, (MODERNA BOOSTER) 2022-09-12 00:00:00 Completed [facility] SMALLPOX MONKEYPOX VACCINE LIVE JYNNEOS, 0.5ML,PF,SQ 2022-09-12 00:00:00 Completed [facility] Influenza Virus Vaccine Quad IM, Preserv and ABX Free 6 MO-64 YRS 2022-09-12 00:00:00 Completed [facility] SARS-COV-2 COVID-19 VACCINE 12 YRS+, BIVALENT 0.5ML, IM, (MODERNA BOOSTER) 2022-09-12 00:00:00 Completed [facility] SMALLPOX MONKEYPOX VACCINE LIVE JYNNEOS, 0.5ML,PF,SQ 2022-09-12 00:00:00 Completed [facility] Influenza Virus Vaccine Quad IM, Preserv and ABX Free 6 MO-64 YRS 2022-09-12 00:00:00 Completed [facility] SARS-COV-2 COVID-19 VACCINE 12 YRS+, BIVALENT 0.5ML, IM, (MODERNA BOOSTER) 2022-09-12 00:00:00 Completed [facility] SMALLPOX MONKEYPOX VACCINE LIVE JYNNEOS, 0.5ML,PF,SQ 2022-09-12 00:00:00 Completed [facility] Influenza Virus Vaccine Quad IM, Preserv and ABX Free 6 MO-64 YRS 2022-09-12 00:00:00 Completed [facility] SARS-COV-2 COVID-19 VACCINE 12 YRS+, BIVALENT 0.5ML, IM, (MODERNA-BLUE TOP) 2022-09-12 00:00:00 Completed [facility] SMALLPOX MONKEYPOX VACCINE LIVE JYNNEOS, 0.5ML,PF,SQ 2022-09-12 00:00:00 Completed [facility] Influenza Virus Vaccine Quad IM, Preserv and ABX Free 6 MO-64 YRS 2022-09-12 00:00:00 Completed [facility] SARS-COV-2 COVID-19 VACCINE 12 YRS+, BIVALENT 0.5ML, IM, (MODERNA-BLUE TOP) 2022-09-12 00:00:00 Completed [facility] SMALLPOX MONKEYPOX VACCINE LIVE JYNNEOS, 0.5ML,PF,SQ 2022-09-12 00:00:00 Completed [facility] Influenza Virus Vaccine Quad IM, Preserv and ABX Free 6 MO-64 YRS 2022-09-12 00:00:00 Completed [facility] SARS-COV-2 COVID-19 VACCINE 12 YRS+, BIVALENT 0.5ML, IM, (MODERNA-BLUE TOP) 2022-09-12 00:00:00 Completed [facility] SMALLPOX MONKEYPOX VACCINE LIVE JYNNEOS, 0.5ML,PF,SQ 2022-09-12 00:00:00 Completed [facility] Influenza Virus Vaccine Quad IM, Preserv and ABX Free 6 MO-64 YRS 2022-09-12 00:00:00 Completed [facility] SARS-COV-2 COVID-19 VACCINE 12 YRS+, BIVALENT 0.5ML, IM, (MODERNA-BLUE TOP) 2022-09-12 00:00:00 Completed [facility] SMALLPOX MONKEYPOX VACCINE LIVE JYNNEOS, 0.5ML,PF,SQ 2022-09-12 00:00:00 Completed [facility] Influenza Virus Vaccine Quad IM, Preserv and ABX Free 6 MO-64 YRS 2022-09-12 00:00:00 Completed [facility] SARS-COV-2 COVID-19 VACCINE 12 YRS+, BIVALENT 0.5ML, IM, (MODERNA-BLUE TOP) 2022-09-12 00:00:00 Completed [facility] SMALLPOX MONKEYPOX VACCINE LIVE JYNNEOS, 0.5ML,PF,SQ 2022-09-12 00:00:00 Completed [facility] Influenza Virus Vaccine Quad IM, Preserv and ABX Free 6 MO-64 YRS 2022-09-12 00:00:00 Completed [facility] SARS-COV-2 COVID-19 VACCINE 12 YRS+, BIVALENT 0.5ML, IM, (MODERNA-BLUE TOP) 2022-09-12 00:00:00 Completed [facility] SMALLPOX MONKEYPOX VACCINE LIVE JYNNEOS, 0.5ML,PF,SQ 2022-09-12 00:00:00 Completed [facility] Meningococcal Polysaccharide (groups A, C, Y and W-135) conjugate vaccine (MCV4P) 2022-04-25 00:00:00 Completed [facility] Meningococcal Polysaccharide (groups A, C, Y and W-135) conjugate vaccine (MCV4P) 2022-04-25 00:00:00 Completed [facility] Meningococcal Polysaccharide (groups A, C, Y and W-135) conjugate vaccine (MCV4P) 2022-04-25 00:00:00 Completed [facility] Meningococcal Polysaccharide (groups A, C, Y and W-135) conjugate vaccine (MCV4P) 2022-04-25 00:00:00 Completed [facility] Meningococcal Polysaccharide (groups A, C, Y and W-135) conjugate vaccine (MCV4P) 2022-04-25 00:00:00 Completed [facility] Meningococcal Polysaccharide (groups A, C, Y and W-135) conjugate vaccine (MCV4P) 2022-04-25 00:00:00 Completed [facility] Meningococcal Polysaccharide (groups A, C, Y and W-135) conjugate vaccine (MCV4P) 2022-04-25 00:00:00 Completed [facility] Meningococcal Polysaccharide (groups A, C, Y and W-135) conjugate vaccine (MCV4P) 2022-04-25 00:00:00 Completed [facility] Meningococcal Polysaccharide (groups A, C, Y and W-135) conjugate vaccine (MCV4P) 2022-04-25 00:00:00 Completed [facility] Meningococcal Polysaccharide (groups A, C, Y and W-135) conjugate vaccine (MCV4P) 2022-04-25 00:00:00 Completed [facility] Meningococcal Polysaccharide (groups A, C, Y and W-135) conjugate vaccine (MCV4P) 2022-04-25 00:00:00 Completed [facility] Meningococcal Polysaccharide (groups A, C, Y and W-135) conjugate vaccine (MCV4P) 2022-04-25 00:00:00 Completed [facility] Meningococcal Polysaccharide (groups A, C, Y and W-135) conjugate vaccine (MCV4P) 2022-04-25 00:00:00 Completed [facility] Meningococcal Polysaccharide (groups A, C, Y and W-135) conjugate vaccine (MCV4P) 2022-04-25 00:00:00 Completed [facility] Meningococcal Polysaccharide (groups A, C, Y and W-135) conjugate vaccine (MCV4P) 2022-04-25 00:00:00 Completed [facility] Meningococcal Polysaccharide (groups A, C, Y and W-135) conjugate vaccine (MCV4P) 2022-04-25 00:00:00 Completed [facility] Meningococcal Polysaccharide (groups A, C, Y and W-135) conjugate vaccine (MCV4P) 2022-04-25 00:00:00 Completed [facility] Meningococcal Polysaccharide (groups A, C, Y and W-135) conjugate vaccine (MCV4P) 2022-04-25 00:00:00 Completed [facility] Meningococcal Polysaccharide (groups A, C, Y and W-135) conjugate vaccine (MCV4P) 2022-04-25 00:00:00 Completed [facility] Meningococcal Polysaccharide (groups A, C, Y and W-135) conjugate vaccine (MCV4P) 2022-04-25 00:00:00 Completed [facility] Meningococcal Polysaccharide (groups A, C, Y and W-135) conjugate vaccine (MCV4P) 2022-04-25 00:00:00 Completed [facility] Meningococcal Polysaccharide (groups A, C, Y and W-135) conjugate vaccine (MCV4P) 2022-04-25 00:00:00 Completed [facility] SARS-COV-2 COVID-19 MODERNA 0.25ML BOOSTER VACCINE 2021-09-14 00:00:00 Completed [facility] SARS-COV-2 COVID-19 MODERNA 0.25ML BOOSTER VACCINE 2021-09-14 00:00:00 Completed [facility] SARS-COV-2 COVID-19 MODERNA 0.25ML BOOSTER VACCINE 2021-09-14 00:00:00 Completed [facility] SARS-COV-2 COVID-19 MODERNA 0.25ML BOOSTER VACCINE 2021-09-14 00:00:00 Completed [facility] SARS-COV-2 COVID-19 MODERNA 0.25ML BOOSTER VACCINE 2021-09-14 00:00:00 Completed [facility] SARS-COV-2 COVID-19 MODERNA 0.25ML BOOSTER VACCINE 2021-09-14 00:00:00 Completed [facility] SARS-COV-2 COVID-19 MODERNA 0.25ML BOOSTER VACCINE 2021-09-14 00:00:00 Completed [facility] SARS-COV-2 COVID-19 MODERNA 0.25ML BOOSTER VACCINE 2021-09-14 00:00:00 Completed [facility] SARS-COV-2 COVID-19 MODERNA 0.25ML BOOSTER VACCINE 2021-09-14 00:00:00 Completed [facility] SARS-COV-2 COVID-19 MODERNA 0.25ML BOOSTER VACCINE 2021-09-14 00:00:00 Completed [facility] SARS-COV-2 COVID-19 MODERNA 0.25ML BOOSTER VACCINE 2021-09-14 00:00:00 Completed [facility] SARS-COV-2 COVID-19 MODERNA 0.25ML BOOSTER VACCINE 2021-09-14 00:00:00 Completed [facility] SARS-COV-2 COVID-19 MODERNA 0.25ML BOOSTER VACCINE 2021-09-14 00:00:00 Completed [facility] SARS-COV-2 COVID-19 MODERNA 0.25ML BOOSTER VACCINE 2021-09-14 00:00:00 Completed [facility] SARS-COV-2 COVID-19 MODERNA 0.25ML BOOSTER VACCINE 2021-09-14 00:00:00 Completed [facility] SARS-COV-2 COVID-19 MODERNA 0.25ML BOOSTER VACCINE 2021-09-14 00:00:00 Completed [facility] SARS-COV-2 COVID-19 MODERNA 0.25ML BOOSTER VACCINE 2021-09-14 00:00:00 Completed [facility] SARS-COV-2 COVID-19 MODERNA 0.25ML BOOSTER VACCINE 2021-09-14 00:00:00 Completed [facility] SARS-COV-2 COVID-19 MODERNA 0.25ML BOOSTER VACCINE 2021-09-14 00:00:00 Completed [facility] SARS-COV-2 COVID-19 MODERNA 0.25ML BOOSTER VACCINE 2021-09-14 00:00:00 Completed [facility] SARS-COV-2 COVID-19 MODERNA 0.25ML BOOSTER VACCINE 2021-09-14 00:00:00 Completed [facility] SARS-COV-2 COVID-19 MODERNA 0.25ML BOOSTER VACCINE 2021-09-14 00:00:00 Completed [facility] Influenza Virus Vaccine Quad IM 6-35 MO 2021-08-11 00:00:00 Completed [facility] Influenza Virus Vaccine Quad IM, Preserv and ABX Free 6 MO-64 YRS 2021-08-11 00:00:00 Completed [facility] Pneumococcal Polysaccharide, PPSV23 (PNEUMOVAX) 2021-08-11 00:00:00 Completed [facility] Influenza Virus Vaccine Quad IM 6-35 MO 2021-08-11 00:00:00 Completed [facility] Influenza Virus Vaccine Quad IM, Preserv and ABX Free 6 MO-64 YRS 2021-08-11 00:00:00 Completed [facility] Pneumococcal Polysaccharide, PPSV23 (PNEUMOVAX) 2021-08-11 00:00:00 Completed [facility] Influenza Virus Vaccine Quad IM 6-35 MO 2021-08-11 00:00:00 Completed [facility] Influenza Virus Vaccine Quad IM, Preserv and ABX Free 6 MO-64 YRS 2021-08-11 00:00:00 Completed [facility] Pneumococcal Polysaccharide, PPSV23 (PNEUMOVAX) 2021-08-11 00:00:00 Completed [facility] Influenza Virus Vaccine Quad IM 6-35 MO 2021-08-11 00:00:00 Completed [facility] Influenza Virus Vaccine Quad IM, Preserv and ABX Free 6 MO-64 YRS 2021-08-11 00:00:00 Completed [facility] Pneumococcal Polysaccharide, PPSV23 (PNEUMOVAX) 2021-08-11 00:00:00 Completed [facility] Influenza Virus Vaccine Quad IM 6-35 MO 2021-08-11 00:00:00 Completed [facility] Influenza Virus Vaccine Quad IM, Preserv and ABX Free 6 MO-64 YRS 2021-08-11 00:00:00 Completed [facility] Pneumococcal Polysaccharide, PPSV23 (PNEUMOVAX) 2021-08-11 00:00:00 Completed [facility] Influenza Virus Vaccine Quad IM 6-35 MO 2021-08-11 00:00:00 Completed [facility] Influenza Virus Vaccine Quad IM, Preserv and ABX Free 6 MO-64 YRS 2021-08-11 00:00:00 Completed [facility] Pneumococcal Polysaccharide, PPSV23 (PNEUMOVAX) 2021-08-11 00:00:00 Completed [facility] Influenza Virus Vaccine Quad IM 6-35 MO 2021-08-11 00:00:00 Completed [facility] Influenza Virus Vaccine Quad IM, Preserv and ABX Free 6 MO-64 YRS 2021-08-11 00:00:00 Completed [facility] Pneumococcal Polysaccharide, PPSV23 (PNEUMOVAX) 2021-08-11 00:00:00 Completed [facility] Influenza Virus Vaccine Quad IM 6-35 MO 2021-08-11 00:00:00 Completed [facility] Influenza Virus Vaccine Quad IM, Preserv and ABX Free 6 MO-64 YRS 2021-08-11 00:00:00 Completed [facility] Pneumococcal Polysaccharide, PPSV23 (PNEUMOVAX) 2021-08-11 00:00:00 Completed [facility] Influenza Virus Vaccine Quad IM 6-35 MO 2021-08-11 00:00:00 Completed [facility] Influenza Virus Vaccine Quad IM, Preserv and ABX Free 6 MO-64 YRS 2021-08-11 00:00:00 Completed [facility] Pneumococcal Polysaccharide, PPSV23 (PNEUMOVAX) 2021-08-11 00:00:00 Completed [facility] Influenza Virus Vaccine Quad IM 6-35 MO 2021-08-11 00:00:00 Completed [facility] Influenza Virus Vaccine Quad IM, Preserv and ABX Free 6 MO-64 YRS 2021-08-11 00:00:00 Completed [facility] Pneumococcal Polysaccharide, PPSV23 (PNEUMOVAX) 2021-08-11 00:00:00 Completed [facility] Influenza Virus Vaccine Quad IM 6-35 MO 2021-08-11 00:00:00 Completed [facility] Influenza Virus Vaccine Quad IM, Preserv and ABX Free 6 MO-64 YRS 2021-08-11 00:00:00 Completed [facility] Pneumococcal Polysaccharide, PPSV23 (PNEUMOVAX) 2021-08-11 00:00:00 Completed [facility] Influenza Virus Vaccine Quad IM 6-35 MO 2021-08-11 00:00:00 Completed [facility] Influenza Virus Vaccine Quad IM, Preserv and ABX Free 6 MO-64 YRS 2021-08-11 00:00:00 Completed [facility] Pneumococcal Polysaccharide, PPSV23 (PNEUMOVAX) 2021-08-11 00:00:00 Completed [facility] Influenza Virus Vaccine Quad IM 6-35 MO 2021-08-11 00:00:00 Completed [facility] Influenza Virus Vaccine Quad IM, Preserv and ABX Free 6 MO-64 YRS 2021-08-11 00:00:00 Completed [facility] Pneumococcal Polysaccharide, PPSV23 (PNEUMOVAX) 2021-08-11 00:00:00 Completed [facility] Influenza Virus Vaccine Quad IM 6-35 MO 2021-08-11 00:00:00 Completed [facility] Influenza Virus Vaccine Quad IM, Preserv and ABX Free 6 MO-64 YRS 2021-08-11 00:00:00 Completed [facility] Pneumococcal Polysaccharide, PPSV23 (PNEUMOVAX) 2021-08-11 00:00:00 Completed [facility] Influenza Virus Vaccine Quad IM 6-35 MO 2021-08-11 00:00:00 Completed [facility] Influenza Virus Vaccine Quad IM, Preserv and ABX Free 6 MO-64 YRS 2021-08-11 00:00:00 Completed [facility] Pneumococcal Polysaccharide, PPSV23 (PNEUMOVAX) 2021-08-11 00:00:00 Completed [facility] Influenza Virus Vaccine Quad IM 6-35 MO 2021-08-11 00:00:00 Completed [facility] Influenza Virus Vaccine Quad IM, Preserv and ABX Free 6 MO-64 YRS 2021-08-11 00:00:00 Completed [facility] Pneumococcal Polysaccharide, PPSV23 (PNEUMOVAX) 2021-08-11 00:00:00 Completed [facility] Influenza Virus Vaccine Quad IM 6-35 MO 2021-08-11 00:00:00 Completed [facility] Influenza Virus Vaccine Quad IM, Preserv and ABX Free 6 MO-64 YRS 2021-08-11 00:00:00 Completed [facility] Pneumococcal Polysaccharide, PPSV23 (PNEUMOVAX) 2021-08-11 00:00:00 Completed [facility] Influenza Virus Vaccine Quad IM 6-35 MO 2021-08-11 00:00:00 Completed [facility] Influenza Virus Vaccine Quad IM, Preserv and ABX Free 6 MO-64 YRS 2021-08-11 00:00:00 Completed [facility] Pneumococcal Polysaccharide, PPSV23 (PNEUMOVAX) 2021-08-11 00:00:00 Completed [facility] Influenza Virus Vaccine Quad IM 6-35 MO 2021-08-11 00:00:00 Completed [facility] Influenza Virus Vaccine Quad IM, Preserv and ABX Free 6 MO-64 YRS 2021-08-11 00:00:00 Completed [facility] Pneumococcal Polysaccharide, PPSV23 (PNEUMOVAX) 2021-08-11 00:00:00 Completed [facility] Influenza Virus Vaccine Quad IM 6-35 MO 2021-08-11 00:00:00 Completed [facility] Influenza Virus Vaccine Quad IM, Preserv and ABX Free 6 MO-64 YRS 2021-08-11 00:00:00 Completed [facility] Pneumococcal Polysaccharide, PPSV23 (PNEUMOVAX) 2021-08-11 00:00:00 Completed [facility] Influenza Virus Vaccine Quad IM 6-35 MO 2021-08-11 00:00:00 Completed [facility] Influenza Virus Vaccine Quad IM, Preserv and ABX Free 6 MO-64 YRS 2021-08-11 00:00:00 Completed [facility] Pneumococcal Polysaccharide, PPSV23 (PNEUMOVAX) 2021-08-11 00:00:00 Completed [facility] Influenza Virus Vaccine Quad IM 6-35 MO 2021-08-11 00:00:00 Completed [facility] Influenza Virus Vaccine Quad IM, Preserv and ABX Free 6 MO-64 YRS 2021-08-11 00:00:00 Completed [facility] Pneumococcal Polysaccharide, PPSV23 (PNEUMOVAX) 2021-08-11 00:00:00 Completed [facility] Influenza Virus Vaccine 2019-09-18 00:00:00 Completed [facility] Influenza Virus Vaccine 2019-09-18 00:00:00 Completed [facility] Influenza Virus Vaccine 2019-09-18 00:00:00 Completed [facility] Influenza Virus Vaccine 2019-09-18 00:00:00 Completed [facility] Influenza Virus Vaccine 2019-09-18 00:00:00 Completed [facility] Influenza Virus Vaccine 2019-09-18 00:00:00 Completed [facility] Influenza Virus Vaccine 2019-09-18 00:00:00 Completed [facility] Influenza Virus Vaccine 2019-09-18 00:00:00 Completed [facility] Influenza Virus Vaccine 2019-09-18 00:00:00 Completed [facility] Influenza Virus Vaccine 2019-09-18 00:00:00 Completed [facility] Influenza Virus Vaccine 2019-09-18 00:00:00 Completed [facility] Influenza Virus Vaccine 2019-09-18 00:00:00 Completed [facility] Influenza Virus Vaccine 2019-09-18 00:00:00 Completed [facility] Influenza Virus Vaccine 2019-09-18 00:00:00 Completed [facility] Influenza Virus Vaccine 2019-09-18 00:00:00 Completed [facility] Influenza Virus Vaccine 2019-09-18 00:00:00 Completed [facility] Influenza Virus Vaccine 2019-09-18 00:00:00 Completed [facility] Influenza Virus Vaccine 2019-09-18 00:00:00 Completed [facility] Influenza Virus Vaccine 2019-09-18 00:00:00 Completed [facility] Influenza Virus Vaccine 2019-09-18 00:00:00 Completed [facility] Influenza Virus Vaccine 2019-09-18 00:00:00 Completed [facility] Influenza Virus Vaccine 2019-09-18 00:00:00 Completed [facility] flu vax 2018-07-07 10:03:13 Completed Count Includes [facility] flu vax 2017-09-06 11:35:57 Completed Count Includes [facility] pneumovax 2017-07-20 12:39:39 Completed Count Includes [facility] flu vax 2016-09-21 09:13:37 Completed Count Includes [facility] pneumped1 2016-05-06 09:53:46 Completed Count Includes [facility] Pneumococcal 13 Conjugate, PCV13 (Prevnar 13) 2014-09-17 00:00:00 Completed [facility] Influenza Virus Vaccine Quad IM 3+ YRS 2014-09-17 00:00:00 Completed [facility] Pneumococcal 13 Conjugate, PCV13 (Prevnar 13) 2014-09-17 00:00:00 Completed [facility] Influenza Virus Vaccine Quad IM 3+ YRS 2014-09-17 00:00:00 Completed [facility] Pneumococcal 13 Conjugate, PCV13 (Prevnar 13) 2014-09-17 00:00:00 Completed [facility] Influenza Virus Vaccine Quad IM 3+ YRS 2014-09-17 00:00:00 Completed [facility] Pneumococcal 13 Conjugate, PCV13 (Prevnar 13) 2014-09-17 00:00:00 Completed [facility] Influenza Virus Vaccine Quad IM 3+ YRS 2014-09-17 00:00:00 Completed [facility] Pneumococcal 13 Conjugate, PCV13 (Prevnar 13) 2014-09-17 00:00:00 Completed [facility] Influenza Virus Vaccine Quad IM 3+ YRS 2014-09-17 00:00:00 Completed [facility] Pneumococcal 13 Conjugate, PCV13 (Prevnar 13) 2014-09-17 00:00:00 Completed [facility] Influenza Virus Vaccine Quad IM 3+ YRS 2014-09-17 00:00:00 Completed [facility] Pneumococcal 13 Conjugate, PCV13 (Prevnar 13) 2014-09-17 00:00:00 Completed [facility] Influenza Virus Vaccine Quad IM 3+ YRS 2014-09-17 00:00:00 Completed [facility] Pneumococcal 13 Conjugate, PCV13 (Prevnar 13) 2014-09-17 00:00:00 Completed [facility] Influenza Virus Vaccine Quad IM 3+ YRS 2014-09-17 00:00:00 Completed [facility] Pneumococcal 13 Conjugate, PCV13 (Prevnar 13) 2014-09-17 00:00:00 Completed [facility] Influenza Virus Vaccine Quad IM 3+ YRS 2014-09-17 00:00:00 Completed [facility] Pneumococcal 13 Conjugate, PCV13 (Prevnar 13) 2014-09-17 00:00:00 Completed [facility] Influenza Virus Vaccine Quad IM 3+ YRS 2014-09-17 00:00:00 Completed [facility] Pneumococcal 13 Conjugate, PCV13 (Prevnar 13) 2014-09-17 00:00:00 Completed [facility] Influenza Virus Vaccine Quad IM 3+ YRS 2014-09-17 00:00:00 Completed [facility] Pneumococcal 13 Conjugate, PCV13 (Prevnar 13) 2014-09-17 00:00:00 Completed [facility] Influenza Virus Vaccine Quad IM 3+ YRS 2014-09-17 00:00:00 Completed [facility] Pneumococcal 13 Conjugate, PCV13 (Prevnar 13) 2014-09-17 00:00:00 Completed [facility] Influenza Virus Vaccine Quad IM 3+ YRS 2014-09-17 00:00:00 Completed [facility] Pneumococcal 13 Conjugate, PCV13 (Prevnar 13) 2014-09-17 00:00:00 Completed [facility] Influenza Virus Vaccine Quad IM 3+ YRS 2014-09-17 00:00:00 Completed [facility] Pneumococcal 13 Conjugate, PCV13 (Prevnar 13) 2014-09-17 00:00:00 Completed [facility] Influenza Virus Vaccine Quad IM 3+ YRS 2014-09-17 00:00:00 Completed [facility] Pneumococcal 13 Conjugate, PCV13 (Prevnar 13) 2014-09-17 00:00:00 Completed [facility] Influenza Virus Vaccine Quad IM 3+ YRS 2014-09-17 00:00:00 Completed [facility] Pneumococcal 13 Conjugate, PCV13 (Prevnar 13) 2014-09-17 00:00:00 Completed [facility] Influenza Virus Vaccine Quad IM 3+ YRS 2014-09-17 00:00:00 Completed [facility] Pneumococcal 13 Conjugate, PCV13 (Prevnar 13) 2014-09-17 00:00:00 Completed [facility] Influenza Virus Vaccine Quad IM 3+ YRS 2014-09-17 00:00:00 Completed [facility] Pneumococcal 13 Conjugate, PCV13 (Prevnar 13) 2014-09-17 00:00:00 Completed [facility] Influenza Virus Vaccine Quad IM 3+ YRS 2014-09-17 00:00:00 Completed [facility] Pneumococcal 13 Conjugate, PCV13 (Prevnar 13) 2014-09-17 00:00:00 Completed [facility] Influenza Virus Vaccine Quad IM 3+ YRS 2014-09-17 00:00:00 Completed [facility] Pneumococcal 13 Conjugate, PCV13 (Prevnar 13) 2014-09-17 00:00:00 Completed [facility] Influenza Virus Vaccine Quad IM 3+ YRS 2014-09-17 00:00:00 Completed [facility] Pneumococcal 13 Conjugate, PCV13 (Prevnar 13) 2014-09-17 00:00:00 Completed [facility] Influenza Virus Vaccine Quad IM 3+ YRS 2014-09-17 00:00:00 Completed [facility] HEPATITIS A 2014-04-23 00:00:00 Completed [facility] HEPATITIS A 2014-04-23 00:00:00 Completed [facility] HEPATITIS A 2014-04-23 00:00:00 Completed [facility] HEPATITIS A 2014-04-23 00:00:00 Completed [facility] HEPATITIS A 2014-04-23 00:00:00 Completed [facility] HEPATITIS A 2014-04-23 00:00:00 Completed [facility] HEPATITIS A 2014-04-23 00:00:00 Completed [facility] HEPATITIS A 2014-04-23 00:00:00 Completed [facility] HEPATITIS A 2014-04-23 00:00:00 Completed [facility] HEPATITIS A 2014-04-23 00:00:00 Completed [facility] HEPATITIS A 2014-04-23 00:00:00 Completed [facility] HEPATITIS A 2014-04-23 00:00:00 Completed [facility] HEPATITIS A 2014-04-23 00:00:00 Completed [facility] HEPATITIS A 2014-04-23 00:00:00 Completed [facility] HEPATITIS A 2014-04-23 00:00:00 Completed [facility] HEPATITIS A 2014-04-23 00:00:00 Completed [facility] HEPATITIS A 2014-04-23 00:00:00 Completed [facility] HEPATITIS A 2014-04-23 00:00:00 Completed [facility] HEPATITIS A 2014-04-23 00:00:00 Completed [facility] HEPATITIS A 2014-04-23 00:00:00 Completed [facility] HEPATITIS A 2014-04-23 00:00:00 Completed [facility] HEPATITIS A 2014-04-23 00:00:00 Completed [facility] PPD (TB) 2012-08-01 00:00:00 Completed [facility] Influenza Virus Vaccine 2012-08-01 00:00:00 Completed [facility] PPD (TB) 2012-08-01 00:00:00 Completed [facility] Influenza Virus Vaccine 2012-08-01 00:00:00 Completed [facility] PPD (TB) 2012-08-01 00:00:00 Completed [facility] Influenza Virus Vaccine 2012-08-01 00:00:00 Completed [facility] PPD (TB) 2012-08-01 00:00:00 Completed [facility] Influenza Virus Vaccine 2012-08-01 00:00:00 Completed [facility] PPD (TB) 2012-08-01 00:00:00 Completed [facility] Influenza Virus Vaccine 2012-08-01 00:00:00 Completed [facility] PPD (TB) 2012-08-01 00:00:00 Completed [facility] Influenza Virus Vaccine 2012-08-01 00:00:00 Completed [facility] PPD (TB) 2012-08-01 00:00:00 Completed [facility] Influenza Virus Vaccine 2012-08-01 00:00:00 Completed [facility] PPD (TB) 2012-08-01 00:00:00 Completed [facility] Influenza Virus Vaccine 2012-08-01 00:00:00 Completed [facility] PPD (TB) 2012-08-01 00:00:00 Completed [facility] Influenza Virus Vaccine 2012-08-01 00:00:00 Completed [facility] PPD (TB) 2012-08-01 00:00:00 Completed [facility] Influenza Virus Vaccine 2012-08-01 00:00:00 Completed [facility] PPD (TB) 2012-08-01 00:00:00 Completed [facility] Influenza Virus Vaccine 2012-08-01 00:00:00 Completed [facility] PPD (TB) 2012-08-01 00:00:00 Completed [facility] Influenza Virus Vaccine 2012-08-01 00:00:00 Completed [facility] PPD (TB) 2012-08-01 00:00:00 Completed [facility] Influenza Virus Vaccine 2012-08-01 00:00:00 Completed [facility] PPD (TB) 2012-08-01 00:00:00 Completed [facility] Influenza Virus Vaccine 2012-08-01 00:00:00 Completed [facility] PPD (TB) 2012-08-01 00:00:00 Completed [facility] Influenza Virus Vaccine 2012-08-01 00:00:00 Completed [facility] PPD (TB) 2012-08-01 00:00:00 Completed [facility] Influenza Virus Vaccine 2012-08-01 00:00:00 Completed [facility] PPD (TB) 2012-08-01 00:00:00 Completed [facility] Influenza Virus Vaccine 2012-08-01 00:00:00 Completed [facility] PPD (TB) 2012-08-01 00:00:00 Completed [facility] Influenza Virus Vaccine 2012-08-01 00:00:00 Completed [facility] PPD (TB) 2012-08-01 00:00:00 Completed [facility] Influenza Virus Vaccine 2012-08-01 00:00:00 Completed [facility] PPD (TB) 2012-08-01 00:00:00 Completed [facility] Influenza Virus Vaccine 2012-08-01 00:00:00 Completed [facility] PPD (TB) 2012-08-01 00:00:00 Completed [facility] Influenza Virus Vaccine 2012-08-01 00:00:00 Completed [facility] PPD (TB) 2012-08-01 00:00:00 Completed [facility] Influenza Virus Vaccine 2012-08-01 00:00:00 Completed [facility] Influenza Virus Vaccine 2011-07-25 00:00:00 Completed [facility] Influenza Virus Vaccine 2011-07-25 00:00:00 Completed [facility] Influenza Virus Vaccine 2011-07-25 00:00:00 Completed [facility] Influenza Virus Vaccine 2011-07-25 00:00:00 Completed [facility] Influenza Virus Vaccine 2011-07-25 00:00:00 Completed [facility] Influenza Virus Vaccine 2011-07-25 00:00:00 Completed [facility] Influenza Virus Vaccine 2011-07-25 00:00:00 Completed [facility] Influenza Virus Vaccine 2011-07-25 00:00:00 Completed [facility] Influenza Virus Vaccine 2011-07-25 00:00:00 Completed [facility] Influenza Virus Vaccine 2011-07-25 00:00:00 Completed [facility] Influenza Virus Vaccine 2011-07-25 00:00:00 Completed [facility] Influenza Virus Vaccine 2011-07-25 00:00:00 Completed [facility] Influenza Virus Vaccine 2011-07-25 00:00:00 Completed [facility] Influenza Virus Vaccine 2011-07-25 00:00:00 Completed [facility] Influenza Virus Vaccine 2011-07-25 00:00:00 Completed [facility] Influenza Virus Vaccine 2011-07-25 00:00:00 Completed [facility] Influenza Virus Vaccine 2011-07-25 00:00:00 Completed [facility] Influenza Virus Vaccine 2011-07-25 00:00:00 Completed [facility] Influenza Virus Vaccine 2011-07-25 00:00:00 Completed [facility] Influenza Virus Vaccine 2011-07-25 00:00:00 Completed [facility] Influenza Virus Vaccine 2011-07-25 00:00:00 Completed [facility] Influenza Virus Vaccine 2011-07-25 00:00:00 Completed [facility] TDAP (ADACEL) VACCINE 2011-04-19 00:00:00 Completed [facility] Pneumococcal Polysaccharide, PPSV23 (PNEUMOVAX) 2011-04-19 00:00:00 Completed [facility] PPD (TB) 2011-04-19 00:00:00 Completed [facility] TDAP (ADACEL) VACCINE 2011-04-19 00:00:00 Completed [facility] Pneumococcal Polysaccharide, PPSV23 (PNEUMOVAX) 2011-04-19 00:00:00 Completed [facility] PPD (TB) 2011-04-19 00:00:00 Completed [facility] TDAP (ADACEL) VACCINE 2011-04-19 00:00:00 Completed [facility] Pneumococcal Polysaccharide, PPSV23 (PNEUMOVAX) 2011-04-19 00:00:00 Completed [facility] PPD (TB) 2011-04-19 00:00:00 Completed [facility] TDAP (ADACEL) VACCINE 2011-04-19 00:00:00 Completed [facility] Pneumococcal Polysaccharide, PPSV23 (PNEUMOVAX) 2011-04-19 00:00:00 Completed [facility] PPD (TB) 2011-04-19 00:00:00 Completed [facility] TDAP (ADACEL) VACCINE 2011-04-19 00:00:00 Completed [facility] Pneumococcal Polysaccharide, PPSV23 (PNEUMOVAX) 2011-04-19 00:00:00 Completed [facility] PPD (TB) 2011-04-19 00:00:00 Completed [facility] TDAP (ADACEL) VACCINE 2011-04-19 00:00:00 Completed [facility] Pneumococcal Polysaccharide, PPSV23 (PNEUMOVAX) 2011-04-19 00:00:00 Completed [facility] PPD (TB) 2011-04-19 00:00:00 Completed [facility] TDAP (ADACEL) VACCINE 2011-04-19 00:00:00 Completed [facility] Pneumococcal Polysaccharide, PPSV23 (PNEUMOVAX) 2011-04-19 00:00:00 Completed [facility] PPD (TB) 2011-04-19 00:00:00 Completed [facility] TDAP (ADACEL) VACCINE 2011-04-19 00:00:00 Completed [facility] Pneumococcal Polysaccharide, PPSV23 (PNEUMOVAX) 2011-04-19 00:00:00 Completed [facility] PPD (TB) 2011-04-19 00:00:00 Completed [facility] TDAP (ADACEL) VACCINE 2011-04-19 00:00:00 Completed [facility] Pneumococcal Polysaccharide, PPSV23 (PNEUMOVAX) 2011-04-19 00:00:00 Completed [facility] PPD (TB) 2011-04-19 00:00:00 Completed [facility] TDAP (ADACEL) VACCINE 2011-04-19 00:00:00 Completed [facility] Pneumococcal Polysaccharide, PPSV23 (PNEUMOVAX) 2011-04-19 00:00:00 Completed [facility] PPD (TB) 2011-04-19 00:00:00 Completed [facility] TDAP (ADACEL) VACCINE 2011-04-19 00:00:00 Completed [facility] Pneumococcal Polysaccharide, PPSV23 (PNEUMOVAX) 2011-04-19 00:00:00 Completed [facility] PPD (TB) 2011-04-19 00:00:00 Completed [facility] TDAP (ADACEL) VACCINE 2011-04-19 00:00:00 Completed [facility] Pneumococcal Polysaccharide, PPSV23 (PNEUMOVAX) 2011-04-19 00:00:00 Completed [facility] PPD (TB) 2011-04-19 00:00:00 Completed [facility] TDAP (ADACEL) VACCINE 2011-04-19 00:00:00 Completed [facility] Pneumococcal Polysaccharide, PPSV23 (PNEUMOVAX) 2011-04-19 00:00:00 Completed [facility] PPD (TB) 2011-04-19 00:00:00 Completed [facility] TDAP (ADACEL) VACCINE 2011-04-19 00:00:00 Completed [facility] Pneumococcal Polysaccharide, PPSV23 (PNEUMOVAX) 2011-04-19 00:00:00 Completed [facility] PPD (TB) 2011-04-19 00:00:00 Completed [facility] TDAP (ADACEL) VACCINE 2011-04-19 00:00:00 Completed [facility] Pneumococcal Polysaccharide, PPSV23 (PNEUMOVAX) 2011-04-19 00:00:00 Completed [facility] PPD (TB) 2011-04-19 00:00:00 Completed [facility] TDAP (ADACEL) VACCINE 2011-04-19 00:00:00 Completed [facility] Pneumococcal Polysaccharide, PPSV23 (PNEUMOVAX) 2011-04-19 00:00:00 Completed [facility] PPD (TB) 2011-04-19 00:00:00 Completed [facility] TDAP (ADACEL) VACCINE 2011-04-19 00:00:00 Completed [facility] Pneumococcal Polysaccharide, PPSV23 (PNEUMOVAX) 2011-04-19 00:00:00 Completed [facility] PPD (TB) 2011-04-19 00:00:00 Completed [facility] TDAP (ADACEL) VACCINE 2011-04-19 00:00:00 Completed [facility] Pneumococcal Polysaccharide, PPSV23 (PNEUMOVAX) 2011-04-19 00:00:00 Completed [facility] PPD (TB) 2011-04-19 00:00:00 Completed [facility] TDAP (ADACEL) VACCINE 2011-04-19 00:00:00 Completed [facility] Pneumococcal Polysaccharide, PPSV23 (PNEUMOVAX) 2011-04-19 00:00:00 Completed [facility] PPD (TB) 2011-04-19 00:00:00 Completed [facility] TDAP (ADACEL) VACCINE 2011-04-19 00:00:00 Completed [facility] Pneumococcal Polysaccharide, PPSV23 (PNEUMOVAX) 2011-04-19 00:00:00 Completed [facility] PPD (TB) 2011-04-19 00:00:00 Completed [facility] TDAP (ADACEL) VACCINE 2011-04-19 00:00:00 Completed [facility] Pneumococcal Polysaccharide, PPSV23 (PNEUMOVAX) 2011-04-19 00:00:00 Completed [facility] PPD (TB) 2011-04-19 00:00:00 Completed [facility] TDAP (ADACEL) VACCINE 2011-04-19 00:00:00 Completed [facility] Pneumococcal Polysaccharide, PPSV23 (PNEUMOVAX) 2011-04-19 00:00:00 Completed [facility] PPD (TB) 2011-04-19 00:00:00 Completed [facility] PPD (TB) 2010-07-02 00:00:00 Completed [facility] PPD (TB) 2010-07-02 00:00:00 Completed [facility] PPD (TB) 2010-07-02 00:00:00 Completed [facility] PPD (TB) 2010-07-02 00:00:00 Completed [facility] PPD (TB) 2010-07-02 00:00:00 Completed [facility] PPD (TB) 2010-07-02 00:00:00 Completed [facility] PPD (TB) 2010-07-02 00:00:00 Completed [facility] PPD (TB) 2010-07-02 00:00:00 Completed [facility] PPD (TB) 2010-07-02 00:00:00 Completed [facility] PPD (TB) 2010-07-02 00:00:00 Completed [facility] PPD (TB) 2010-07-02 00:00:00 Completed [facility] PPD (TB) 2010-07-02 00:00:00 Completed [facility] PPD (TB) 2010-07-02 00:00:00 Completed [facility] PPD (TB) 2010-07-02 00:00:00 Completed [facility] PPD (TB) 2010-07-02 00:00:00 Completed [facility] PPD (TB) 2010-07-02 00:00:00 Completed [facility] PPD (TB) 2010-07-02 00:00:00 Completed [facility] PPD (TB) 2010-07-02 00:00:00 Completed [facility] PPD (TB) 2010-07-02 00:00:00 Completed [facility] PPD (TB) 2010-07-02 00:00:00 Completed [facility] PPD (TB) 2010-07-02 00:00:00 Completed [facility] PPD (TB) 2010-07-02 00:00:00 Completed [facility] HEPATITIS A 2010-01-08 00:00:00 Completed [facility] HEPATITIS A 2010-01-08 00:00:00 Completed [facility] HEPATITIS A 2010-01-08 00:00:00 Completed [facility] HEPATITIS A 2010-01-08 00:00:00 Completed [facility] HEPATITIS A 2010-01-08 00:00:00 Completed [facility] HEPATITIS A 2010-01-08 00:00:00 Completed [facility] HEPATITIS A 2010-01-08 00:00:00 Completed [facility] HEPATITIS A 2010-01-08 00:00:00 Completed [facility] HEPATITIS A 2010-01-08 00:00:00 Completed [facility] HEPATITIS A 2010-01-08 00:00:00 Completed [facility] HEPATITIS A 2010-01-08 00:00:00 Completed [facility] HEPATITIS A 2010-01-08 00:00:00 Completed [facility] HEPATITIS A 2010-01-08 00:00:00 Completed [facility] HEPATITIS A 2010-01-08 00:00:00 Completed [facility] HEPATITIS A 2010-01-08 00:00:00 Completed [facility] HEPATITIS A 2010-01-08 00:00:00 Completed [facility] HEPATITIS A 2010-01-08 00:00:00 Completed [facility] HEPATITIS A 2010-01-08 00:00:00 Completed [facility] HEPATITIS A 2010-01-08 00:00:00 Completed [facility] HEPATITIS A 2010-01-08 00:00:00 Completed [facility] HEPATITIS A 2010-01-08 00:00:00 Completed [facility] HEPATITIS A 2010-01-08 00:00:00 Completed [facility] HEPATITIS A 2009-04-16 00:00:00 Completed [facility] Pneumococcal Polysaccharide, PPSV23 (PNEUMOVAX) 2009-04-16 00:00:00 Completed [facility] TDAP 2009-04-16 00:00:00 Completed [facility] HEPATITIS A 2009-04-16 00:00:00 Completed [facility] Pneumococcal Polysaccharide, PPSV23 (PNEUMOVAX) 2009-04-16 00:00:00 Completed [facility] TDAP 2009-04-16 00:00:00 Completed [facility] HEPATITIS A 2009-04-16 00:00:00 Completed [facility] Pneumococcal Polysaccharide, PPSV23 (PNEUMOVAX) 2009-04-16 00:00:00 Completed [facility] TDAP 2009-04-16 00:00:00 Completed [facility] HEPATITIS A 2009-04-16 00:00:00 Completed [facility] Pneumococcal Polysaccharide, PPSV23 (PNEUMOVAX) 2009-04-16 00:00:00 Completed [facility] TDAP 2009-04-16 00:00:00 Completed [facility] HEPATITIS A 2009-04-16 00:00:00 Completed [facility] Pneumococcal Polysaccharide, PPSV23 (PNEUMOVAX) 2009-04-16 00:00:00 Completed [facility] TDAP 2009-04-16 00:00:00 Completed [facility] HEPATITIS A 2009-04-16 00:00:00 Completed [facility] Pneumococcal Polysaccharide, PPSV23 (PNEUMOVAX) 2009-04-16 00:00:00 Completed [facility] TDAP 2009-04-16 00:00:00 Completed [facility] HEPATITIS A 2009-04-16 00:00:00 Completed [facility] Pneumococcal Polysaccharide, PPSV23 (PNEUMOVAX) 2009-04-16 00:00:00 Completed [facility] TDAP 2009-04-16 00:00:00 Completed [facility] HEPATITIS A 2009-04-16 00:00:00 Completed [facility] Pneumococcal Polysaccharide, PPSV23 (PNEUMOVAX) 2009-04-16 00:00:00 Completed [facility] TDAP 2009-04-16 00:00:00 Completed [facility] HEPATITIS A 2009-04-16 00:00:00 Completed [facility] Pneumococcal Polysaccharide, PPSV23 (PNEUMOVAX) 2009-04-16 00:00:00 Completed [facility] TDAP 2009-04-16 00:00:00 Completed [facility] HEPATITIS A 2009-04-16 00:00:00 Completed [facility] Pneumococcal Polysaccharide, PPSV23 (PNEUMOVAX) 2009-04-16 00:00:00 Completed [facility] TDAP 2009-04-16 00:00:00 Completed [facility] HEPATITIS A 2009-04-16 00:00:00 Completed [facility] Pneumococcal Polysaccharide, PPSV23 (PNEUMOVAX) 2009-04-16 00:00:00 Completed [facility] TDAP 2009-04-16 00:00:00 Completed [facility] HEPATITIS A 2009-04-16 00:00:00 Completed [facility] Pneumococcal Polysaccharide, PPSV23 (PNEUMOVAX) 2009-04-16 00:00:00 Completed [facility] TDAP 2009-04-16 00:00:00 Completed [facility] HEPATITIS A 2009-04-16 00:00:00 Completed [facility] Pneumococcal Polysaccharide, PPSV23 (PNEUMOVAX) 2009-04-16 00:00:00 Completed [facility] TDAP 2009-04-16 00:00:00 Completed [facility] HEPATITIS A 2009-04-16 00:00:00 Completed [facility] Pneumococcal Polysaccharide, PPSV23 (PNEUMOVAX) 2009-04-16 00:00:00 Completed [facility] TDAP 2009-04-16 00:00:00 Completed [facility] HEPATITIS A 2009-04-16 00:00:00 Completed [facility] Pneumococcal Polysaccharide, PPSV23 (PNEUMOVAX) 2009-04-16 00:00:00 Completed [facility] TDAP 2009-04-16 00:00:00 Completed [facility] HEPATITIS A 2009-04-16 00:00:00 Completed [facility] Pneumococcal Polysaccharide, PPSV23 (PNEUMOVAX) 2009-04-16 00:00:00 Completed [facility] TDAP 2009-04-16 00:00:00 Completed [facility] HEPATITIS A 2009-04-16 00:00:00 Completed [facility] Pneumococcal Polysaccharide, PPSV23 (PNEUMOVAX) 2009-04-16 00:00:00 Completed [facility] TDAP 2009-04-16 00:00:00 Completed [facility] HEPATITIS A 2009-04-16 00:00:00 Completed [facility] Pneumococcal Polysaccharide, PPSV23 (PNEUMOVAX) 2009-04-16 00:00:00 Completed [facility] TDAP 2009-04-16 00:00:00 Completed [facility] HEPATITIS A 2009-04-16 00:00:00 Completed [facility] Pneumococcal Polysaccharide, PPSV23 (PNEUMOVAX) 2009-04-16 00:00:00 Completed [facility] TDAP 2009-04-16 00:00:00 Completed [facility] HEPATITIS A 2009-04-16 00:00:00 Completed [facility] Pneumococcal Polysaccharide, PPSV23 (PNEUMOVAX) 2009-04-16 00:00:00 Completed [facility] TDAP 2009-04-16 00:00:00 Completed [facility] HEPATITIS A 2009-04-16 00:00:00 Completed [facility] Pneumococcal Polysaccharide, PPSV23 (PNEUMOVAX) 2009-04-16 00:00:00 Completed [facility] TDAP 2009-04-16 00:00:00 Completed [facility] HEPATITIS A 2009-04-16 00:00:00 Completed [facility] Pneumococcal Polysaccharide, PPSV23 (PNEUMOVAX) 2009-04-16 00:00:00 Completed [facility] TDAP 2009-04-16 00:00:00 Completed [facility] TDAP (ADACEL) VACCINE Unknown Completed [facility] Pneumococcal Polysaccharide, PPSV23 (PNEUMOVAX) Unknown Completed [facility] PPD (TB) Unknown Completed [facility] HEPATITIS A Unknown Completed [facility] HEPATITIS A Unknown Completed [facility] Pneumococcal Polysaccharide, PPSV23 (PNEUMOVAX) Unknown Completed [facility] PPD (TB) Unknown Completed [facility] TDAP Unknown Completed [facility] Influenza Virus Vaccine Unknown Completed [facility] PPD (TB) Unknown Completed [facility] Influenza Virus Vaccine Unknown Completed [facility] HEPATITIS A Unknown Completed [facility] Pneumococcal 13 Conjugate, PCV13 (Prevnar 13) Unknown Completed [facility] Influenza Virus Vaccine Quad IM 6-35 MO Unknown Completed [facility] Influenza Virus Vaccine Quad IM 3+ YRS Unknown Completed [facility] Influenza Virus Vaccine Unknown Completed [facility] Influenza Virus Vaccine Quad IM, Preserv and ABX Free 6 MO-64 YRS (FLUCELVAX) Unknown Completed [facility] Pneumococcal Polysaccharide, PPSV23 (PNEUMOVAX) Unknown Completed [facility] SARS-COV-2 COVID-19 MODERNA 0.25ML BOOSTER VACCINE Unknown Completed [facility] Meningococcal Polysaccharide (groups A, C, Y and W-135) conjugate vaccine (MCV4P) Unknown Completed [facility] Influenza Virus Vaccine Quad IM, Preserv and ABX Free 6 MO-64 YRS (FLUCELVAX) Unknown Completed [facility] SARS-COV-2 COVID-19 VACCINE 12 YRS+, BIVALENT 0.5ML, IM, (MODERNA-BLUE TOP) Unknown Completed [facility] SMALLPOX MONKEYPOX VACCINE LIVE JYNNEOS, 0.5ML,PF,SQ Unknown Completed [facility] SMALLPOX MONKEYPOX VACCINE LIVE JYNNEOS, ADULT LOW DOSE 0.1ML, PF,ID Unknown Completed [facility] TDAP (ADACEL) VACCINE Unknown Completed [facility] Pneumococcal Polysaccharide, PPSV23 (PNEUMOVAX) Unknown Completed [facility] PPD (TB) Unknown Completed [facility] HEPATITIS A Unknown Completed [facility] HEPATITIS A Unknown Completed [facility] Pneumococcal Polysaccharide, PPSV23 (PNEUMOVAX) Unknown Completed [facility] PPD (TB) Unknown Completed [facility] TDAP Unknown Completed [facility] Influenza Virus Vaccine Unknown Completed [facility] PPD (TB) Unknown Completed [facility] Influenza Virus Vaccine Unknown Completed [facility] HEPATITIS A Unknown Completed [facility] Pneumococcal 13 Conjugate, PCV13 (Prevnar 13) Unknown Completed [facility] Influenza Virus Vaccine Quad IM 6-35 MO Unknown Completed [facility] Influenza Virus Vaccine Quad IM 3+ YRS Unknown Completed [facility] Influenza Virus Vaccine Unknown Completed [facility] Influenza Virus Vaccine Quad IM, Preserv and ABX Free 6 MO-64 YRS (FLUCELVAX) Unknown Completed [facility] Pneumococcal Polysaccharide, PPSV23 (PNEUMOVAX) Unknown Completed [facility] SARS-COV-2 COVID-19 MODERNA 0.25ML BOOSTER VACCINE Unknown Completed [facility] Meningococcal Polysaccharide (groups A, C, Y and W-135) conjugate vaccine (MCV4P) Unknown Completed [facility] TDAP (ADACEL) VACCINE Unknown Completed [facility] Pneumococcal Polysaccharide, PPSV23 (PNEUMOVAX) Unknown Completed [facility] PPD (TB) Unknown Completed [facility] HEPATITIS A Unknown Completed [facility] HEPATITIS A Unknown Completed [facility] Pneumococcal Polysaccharide, PPSV23 (PNEUMOVAX) Unknown Completed [facility] PPD (TB) Unknown Completed [facility] TDAP Unknown Completed [facility] Influenza Virus Vaccine Unknown Completed [facility] PPD (TB) Unknown Completed [facility] Influenza Virus Vaccine Unknown Completed [facility] HEPATITIS A Unknown Completed [facility] Pneumococcal 13 Conjugate, PCV13 (Prevnar 13) Unknown Completed [facility] Influenza Virus Vaccine Quad IM 6-35 MO Unknown Completed [facility] Influenza Virus Vaccine Quad IM 3+ YRS Unknown Completed [facility] Influenza Virus Vaccine Unknown Completed [facility] Influenza Virus Vaccine Quad IM, Preserv and ABX Free 6 MO-64 YRS (FLUCELVAX) Unknown Completed [facility] Pneumococcal Polysaccharide, PPSV23 (PNEUMOVAX) Unknown Completed [facility] SARS-COV-2 COVID-19 MODERNA 0.25ML BOOSTER VACCINE Unknown Completed [facility] TDAP (ADACEL) VACCINE Unknown Completed [facility] Pneumococcal Polysaccharide, PPSV23 (PNEUMOVAX) Unknown Completed [facility] PPD (TB) Unknown Completed [facility] HEPATITIS A Unknown Completed [facility] HEPATITIS A Unknown Completed [facility] Pneumococcal Polysaccharide, PPSV23 (PNEUMOVAX) Unknown Completed [facility] PPD (TB) Unknown Completed [facility] TDAP Unknown Completed [facility] Influenza Virus Vaccine Unknown Completed [facility] PPD (TB) Unknown Completed [facility] Influenza Virus Vaccine Unknown Completed [facility] HEPATITIS A Unknown Completed [facility] Pneumococcal 13 Conjugate, PCV13 (Prevnar 13) Unknown Completed [facility] Influenza Virus Vaccine Quad IM 3+ YRS Unknown Completed [facility] Influenza Virus Vaccine Unknown Completed [facility] TDAP (ADACEL) VACCINE Unknown Completed [facility] Pneumococcal Polysaccharide, PPSV23 (PNEUMOVAX) Unknown Completed [facility] PPD (TB) Unknown Completed [facility] HEPATITIS A Unknown Completed [facility] HEPATITIS A Unknown Completed [facility] Pneumococcal Polysaccharide, PPSV23 (PNEUMOVAX) Unknown Completed [facility] PPD (TB) Unknown Completed [facility] TDAP Unknown Completed [facility] Influenza Virus Vaccine Unknown Completed [facility] PPD (TB) Unknown Completed [facility] Influenza Virus Vaccine Unknown Completed [facility] HEPATITIS A Unknown Completed [facility] Pneumococcal 13 Conjugate, PCV13 (Prevnar 13) Unknown Completed [facility] Influenza Virus Vaccine Quad IM 3+ YRS Unknown Completed [facility] Influenza Virus Vaccine Unknown Completed [facility] TDAP (ADACEL) VACCINE Unknown Completed [facility] Pneumococcal Polysaccharide, PPSV23 (PNEUMOVAX) Unknown Completed [facility] PPD (TB) Unknown Completed [facility] HEPATITIS A Unknown Completed [facility] HEPATITIS A Unknown Completed [facility] Pneumococcal Polysaccharide, PPSV23 (PNEUMOVAX) Unknown Completed [facility] PPD (TB) Unknown Completed [facility] TDAP Unknown Completed [facility] Influenza Virus Vaccine Unknown Completed [facility] PPD (TB) Unknown Completed [facility] Influenza Virus Vaccine Unknown Completed [facility] HEPATITIS A Unknown Completed [facility] Pneumococcal 13 Conjugate, PCV13 (Prevnar 13) Unknown Completed [facility] Influenza Virus Vaccine Quad IM 6-35 MO Unknown Completed [facility] Influenza Virus Vaccine Quad IM 3+ YRS Unknown Completed [facility] Influenza Virus Vaccine Unknown Completed [facility] Influenza Virus Vaccine Quad IM, Preserv and ABX Free 6 MO-64 YRS (FLUCELVAX) Unknown Completed [facility] Pneumococcal Polysaccharide, PPSV23 (PNEUMOVAX) Unknown Completed [facility] SARS-COV-2 COVID-19 MODERNA 0.25ML BOOSTER VACCINE Unknown Completed [facility] Meningococcal Polysaccharide (groups A, C, Y and W-135) conjugate vaccine (MCV4P) Unknown Completed [facility] Influenza Virus Vaccine Quad IM, Preserv and ABX Free 6 MO-64 YRS (FLUCELVAX) Unknown Completed [facility] SARS-COV-2 COVID-19 VACCINE 12 YRS+, BIVALENT 0.5ML, IM, (MODERNA-BLUE TOP) Unknown Completed [facility] SMALLPOX MONKEYPOX VACCINE LIVE JYNNEOS, 0.5ML,PF,SQ Unknown Completed [facility] SMALLPOX MONKEYPOX VACCINE LIVE JYNNEOS, ADULT LOW DOSE 0.1ML, PF,ID Unknown Completed [facility] TDAP (ADACEL) VACCINE Unknown Completed [facility] Pneumococcal Polysaccharide, PPSV23 (PNEUMOVAX) Unknown Completed [facility] PPD (TB) Unknown Completed [facility] HEPATITIS A Unknown Completed [facility] HEPATITIS A Unknown Completed [facility] Pneumococcal Polysaccharide, PPSV23 (PNEUMOVAX) Unknown Completed [facility] PPD (TB) Unknown Completed [facility] TDAP Unknown Completed [facility] Influenza Virus Vaccine Unknown Completed [facility] PPD (TB) Unknown Completed [facility] Influenza Virus Vaccine Unknown Completed [facility] HEPATITIS A Unknown Completed [facility] Pneumococcal 13 Conjugate, PCV13 (Prevnar 13) Unknown Completed [facility] Influenza Virus Vaccine Quad IM 6-35 MO Unknown Completed [facility] Influenza Virus Vaccine Quad IM 3+ YRS Unknown Completed [facility] Influenza Virus Vaccine Unknown Completed [facility] Influenza Virus Vaccine Quad IM, Preserv and ABX Free 6 MO-64 YRS (FLUCELVAX) Unknown Completed [facility] Pneumococcal Polysaccharide, PPSV23 (PNEUMOVAX) Unknown Completed [facility] SARS-COV-2 COVID-19 MODERNA 0.25ML BOOSTER VACCINE Unknown Completed [facility] Meningococcal Polysaccharide (groups A, C, Y and W-135) conjugate vaccine (MCV4P) Unknown Completed [facility] Influenza Virus Vaccine Quad IM, Preserv and ABX Free 6 MO-64 YRS (FLUCELVAX) Unknown Completed [facility] SARS-COV-2 COVID-19 VACCINE 12 YRS+, BIVALENT 0.5ML, IM, (MODERNA-BLUE TOP) Unknown Completed [facility] SMALLPOX MONKEYPOX VACCINE LIVE JYNNEOS, 0.5ML,PF,SQ Unknown Completed [facility] SMALLPOX MONKEYPOX VACCINE LIVE JYNNEOS, ADULT LOW DOSE 0.1ML, PF,ID Unknown Completed [facility] TDAP (ADACEL) VACCINE Unknown Completed [facility] Pneumococcal Polysaccharide, PPSV23 (PNEUMOVAX) Unknown Completed [facility] PPD (TB) Unknown Completed [facility] HEPATITIS A Unknown Completed [facility] HEPATITIS A Unknown Completed [facility] Pneumococcal Polysaccharide, PPSV23 (PNEUMOVAX) Unknown Completed [facility] PPD (TB) Unknown Completed [facility] TDAP Unknown Completed [facility] Influenza Virus Vaccine Unknown Completed [facility] PPD (TB) Unknown Completed [facility] Influenza Virus Vaccine Unknown Completed [facility] HEPATITIS A Unknown Completed [facility] Pneumococcal 13 Conjugate, PCV13 (Prevnar 13) Unknown Completed [facility] Influenza Virus Vaccine Quad IM 6-35 MO Unknown Completed [facility] Influenza Virus Vaccine Quad IM 3+ YRS Unknown Completed [facility] Influenza Virus Vaccine Unknown Completed [facility] Influenza Virus Vaccine Quad IM, Preserv and ABX Free 6 MO-64 YRS (FLUCELVAX) Unknown Completed [facility] Pneumococcal Polysaccharide, PPSV23 (PNEUMOVAX) Unknown Completed [facility] SARS-COV-2 COVID-19 MODERNA 0.25ML BOOSTER VACCINE Unknown Completed [facility] Meningococcal Polysaccharide (groups A, C, Y and W-135) conjugate vaccine (MCV4P) Unknown Completed [facility] Influenza Virus Vaccine Quad IM, Preserv and ABX Free 6 MO-64 YRS (FLUCELVAX) Unknown Completed [facility] SARS-COV-2 COVID-19 VACCINE 12 YRS+, BIVALENT 0.5ML, IM, (MODERNA-BLUE TOP) Unknown Completed [facility] SMALLPOX MONKEYPOX VACCINE LIVE JYNNEOS, 0.5ML,PF,SQ Unknown Completed [facility] SMALLPOX MONKEYPOX VACCINE LIVE JYNNEOS, ADULT LOW DOSE 0.1ML, PF,ID Unknown Completed [facility] TDAP (ADACEL) VACCINE Unknown Completed [facility] Pneumococcal Polysaccharide, PPSV23 (PNEUMOVAX) Unknown Completed [facility] PPD (TB) Unknown Completed [facility] HEPATITIS A Unknown Completed [facility] HEPATITIS A Unknown Completed [facility] Pneumococcal Polysaccharide, PPSV23 (PNEUMOVAX) Unknown Completed [facility] PPD (TB) Unknown Completed [facility] TDAP Unknown Completed [facility] Influenza Virus Vaccine Unknown Completed [facility] PPD (TB) Unknown Completed [facility] Influenza Virus Vaccine Unknown Completed [facility] HEPATITIS A Unknown Completed [facility] Pneumococcal 13 Conjugate, PCV13 (Prevnar 13) Unknown Completed [facility] Influenza Virus Vaccine Quad IM 6-35 MO Unknown Completed [facility] Influenza Virus Vaccine Quad IM 3+ YRS Unknown Completed [facility] Influenza Virus Vaccine Unknown Completed [facility] Influenza Virus Vaccine Quad IM, Preserv and ABX Free 6 MO-64 YRS (FLUCELVAX) Unknown Completed [facility] Pneumococcal Polysaccharide, PPSV23 (PNEUMOVAX) Unknown Completed [facility] SARS-COV-2 COVID-19 MODERNA 0.25ML BOOSTER VACCINE Unknown Completed [facility] Meningococcal Polysaccharide (groups A, C, Y and W-135) conjugate vaccine (MCV4P) Unknown Completed [facility] Influenza Virus Vaccine Quad IM, Preserv and ABX Free 6 MO-64 YRS (FLUCELVAX) Unknown Completed [facility] SARS-COV-2 COVID-19 VACCINE 12 YRS+, BIVALENT 0.5ML, IM, (MODERNA-BLUE TOP) Unknown Completed [facility] SMALLPOX MONKEYPOX VACCINE LIVE JYNNEOS, 0.5ML,PF,SQ Unknown Completed [facility] SMALLPOX MONKEYPOX VACCINE LIVE JYNNEOS, ADULT LOW DOSE 0.1ML, PF,ID Unknown Completed [facility] TDAP (ADACEL) VACCINE Unknown Completed [facility] Pneumococcal Polysaccharide, PPSV23 (PNEUMOVAX) Unknown Completed [facility] PPD (TB) Unknown Completed [facility] HEPATITIS A Unknown Completed [facility] HEPATITIS A Unknown Completed [facility] Pneumococcal Polysaccharide, PPSV23 (PNEUMOVAX) Unknown Completed [facility] PPD (TB) Unknown Completed [facility] TDAP Unknown Completed [facility] Influenza Virus Vaccine Unknown Completed [facility] PPD (TB) Unknown Completed [facility] Influenza Virus Vaccine Unknown Completed [facility] HEPATITIS A Unknown Completed [facility] Pneumococcal 13 Conjugate, PCV13 (Prevnar 13) Unknown Completed [facility] Influenza Virus Vaccine Quad IM 6-35 MO Unknown Completed [facility] Influenza Virus Vaccine Quad IM 3+ YRS Unknown Completed [facility] Influenza Virus Vaccine Unknown Completed [facility] Influenza Virus Vaccine Quad IM, Preserv and ABX Free 6 MO-64 YRS (FLUCELVAX) Unknown Completed [facility] Pneumococcal Polysaccharide, PPSV23 (PNEUMOVAX) Unknown Completed [facility] SARS-COV-2 COVID-19 MODERNA 0.25ML BOOSTER VACCINE Unknown Completed [facility] Meningococcal Polysaccharide (groups A, C, Y and W-135) conjugate vaccine (MCV4P) Unknown Completed [facility] Influenza Virus Vaccine Quad IM, Preserv and ABX Free 6 MO-64 YRS (FLUCELVAX) Unknown Completed [facility] SARS-COV-2 COVID-19 VACCINE 12 YRS+, BIVALENT 0.5ML, IM, (MODERNA-BLUE TOP) Unknown Completed [facility] SMALLPOX MONKEYPOX VACCINE LIVE JYNNEOS, 0.5ML,PF,SQ Unknown Completed [facility] SMALLPOX MONKEYPOX VACCINE LIVE JYNNEOS, ADULT LOW DOSE 0.1ML, PF,ID Unknown Completed [facility] TDAP (ADACEL) VACCINE Unknown Completed [facility] Pneumococcal Polysaccharide, PPSV23 (PNEUMOVAX) Unknown Completed [facility] PPD (TB) Unknown Completed [facility] HEPATITIS A Unknown Completed [facility] HEPATITIS A Unknown Completed [facility] Pneumococcal Polysaccharide, PPSV23 (PNEUMOVAX) Unknown Completed [facility] PPD (TB) Unknown Completed [facility] TDAP Unknown Completed [facility] Influenza Virus Vaccine Unknown Completed [facility] PPD (TB) Unknown Completed [facility] Influenza Virus Vaccine Unknown Completed [facility] HEPATITIS A Unknown Completed [facility] Pneumococcal 13 Conjugate, PCV13 (Prevnar 13) Unknown Completed [facility] Influenza Virus Vaccine Quad IM 6-35 MO Unknown Completed [facility] Influenza Virus Vaccine Quad IM 3+ YRS Unknown Completed [facility] Influenza Virus Vaccine Unknown Completed [facility] Influenza Virus Vaccine Quad IM, Preserv and ABX Free 6 MO-64 YRS (FLUCELVAX) Unknown Completed [facility] Pneumococcal Polysaccharide, PPSV23 (PNEUMOVAX) Unknown Completed [facility] SARS-COV-2 COVID-19 MODERNA 0.25ML BOOSTER VACCINE Unknown Completed [facility] Meningococcal Polysaccharide (groups A, C, Y and W-135) conjugate vaccine (MCV4P) Unknown Completed [facility] Influenza Virus Vaccine Quad IM, Preserv and ABX Free 6 MO-64 YRS (FLUCELVAX) Unknown Completed [facility] SARS-COV-2 COVID-19 VACCINE 12 YRS+, BIVALENT 0.5ML, IM, (MODERNA-BLUE TOP) Unknown Completed [facility] SMALLPOX MONKEYPOX VACCINE LIVE JYNNEOS, 0.5ML,PF,SQ Unknown Completed [facility] SMALLPOX MONKEYPOX VACCINE LIVE JYNNEOS, ADULT LOW DOSE 0.1ML, PF,ID Unknown Completed [facility] SARS-COV-2 COVID-19 TING/J&J VACCINE Unknown Completed [facility] TDAP (ADACEL) VACCINE Unknown Completed [facility] Pneumococcal Polysaccharide, PPSV23 (PNEUMOVAX) Unknown Completed [facility] PPD (TB) Unknown Completed [facility] HEPATITIS A Unknown Completed [facility] HEPATITIS A Unknown Completed [facility] Pneumococcal Polysaccharide, PPSV23 (PNEUMOVAX) Unknown Completed [facility] PPD (TB) Unknown Completed [facility] TDAP Unknown Completed [facility] Influenza Virus Vaccine Unknown Completed [facility] PPD (TB) Unknown Completed [facility] Influenza Virus Vaccine Unknown Completed [facility] HEPATITIS A Unknown Completed [facility] Pneumococcal 13 Conjugate, PCV13 (Prevnar 13) Unknown Completed [facility] Influenza Virus Vaccine Quad IM 6-35 MO Unknown Completed [facility] Influenza Virus Vaccine Quad IM 3+ YRS Unknown Completed [facility] Influenza Virus Vaccine Unknown Completed [facility] Influenza Virus Vaccine Quad IM, Preserv and ABX Free 6 MO-64 YRS (FLUCELVAX) Unknown Completed [facility] Pneumococcal Polysaccharide, PPSV23 (PNEUMOVAX) Unknown Completed [facility] SARS-COV-2 COVID-19 MODERNA 0.25ML BOOSTER VACCINE Unknown Completed [facility] Meningococcal Polysaccharide (groups A, C, Y and W-135) conjugate vaccine (MCV4P) Unknown Completed [facility] Influenza Virus Vaccine Quad IM, Preserv and ABX Free 6 MO-64 YRS (FLUCELVAX) Unknown Completed [facility] SARS-COV-2 COVID-19 VACCINE 12 YRS+, BIVALENT 0.5ML, IM, (MODERNA-BLUE TOP) Unknown Completed [facility] SMALLPOX MONKEYPOX VACCINE LIVE JYNNEOS, 0.5ML,PF,SQ Unknown Completed [facility] SMALLPOX MONKEYPOX VACCINE LIVE JYNNEOS, ADULT LOW DOSE 0.1ML, PF,ID Unknown Completed [facility] SARS-COV-2 COVID-19 TING/J&J VACCINE Unknown Completed [facility] TDAP (ADACEL) VACCINE Unknown Completed [facility] Pneumococcal Polysaccharide, PPSV23 (PNEUMOVAX) Unknown Completed [facility] PPD (TB) Unknown Completed [facility] HEPATITIS A Unknown Completed [facility] HEPATITIS A Unknown Completed [facility] Pneumococcal Polysaccharide, PPSV23 (PNEUMOVAX) Unknown Completed [facility] PPD (TB) Unknown Completed [facility] TDAP Unknown Completed [facility] Influenza Virus Vaccine Unknown Completed [facility] PPD (TB) Unknown Completed [facility] Influenza Virus Vaccine Unknown Completed [facility] HEPATITIS A Unknown Completed [facility] Pneumococcal 13 Conjugate, PCV13 (Prevnar 13) Unknown Completed [facility] Influenza Virus Vaccine Quad IM 6-35 MO Unknown Completed [facility] Influenza Virus Vaccine Quad IM 3+ YRS Unknown Completed [facility] Influenza Virus Vaccine Unknown Completed [facility] Influenza Virus Vaccine Quad IM, Preserv and ABX Free 6 MO-64 YRS (FLUCELVAX) Unknown Completed [facility] Pneumococcal Polysaccharide, PPSV23 (PNEUMOVAX) Unknown Completed [facility] SARS-COV-2 COVID-19 MODERNA 0.25ML BOOSTER VACCINE Unknown Completed [facility] Meningococcal Polysaccharide (groups A, C, Y and W-135) conjugate vaccine (MCV4P) Unknown Completed [facility] Influenza Virus Vaccine Quad IM, Preserv and ABX Free 6 MO-64 YRS (FLUCELVAX) Unknown Completed [facility] SARS-COV-2 COVID-19 VACCINE 12 YRS+, BIVALENT 0.5ML, IM, (MODERNA-BLUE TOP) Unknown Completed [facility] SMALLPOX MONKEYPOX VACCINE LIVE JYNNEOS, 0.5ML,PF,SQ Unknown Completed [facility] SMALLPOX MONKEYPOX VACCINE LIVE JYNNEOS, ADULT LOW DOSE 0.1ML, PF,ID Unknown Completed [facility] SARS-COV-2 COVID-19 TING/J&J VACCINE Unknown Completed [facility] Influenza Virus Vaccine Quad IM, Preserv and ABX Free 6 MO-64 YRS (FLUCELVAX) Unknown Completed [facility] SARS-COV-2 COVID 19 MAGALYS SUCROSE VACCINE 12+, [id number], 0.3 ML (30 MCG), IM PFIZER (NAVARRO TOP) Unknown Completed [facility] TDAP (ADACEL) VACCINE Unknown Completed [facility] Pneumococcal Polysaccharide, PPSV23 (PNEUMOVAX) Unknown Completed [facility] PPD (TB) Unknown Completed [facility] HEPATITIS A Unknown Completed [facility] HEPATITIS A Unknown Completed [facility] Pneumococcal Polysaccharide, PPSV23 (PNEUMOVAX) Unknown Completed [facility] PPD (TB) Unknown Completed [facility] TDAP Unknown Completed [facility] Influenza Virus Vaccine Unknown Completed [facility] PPD (TB) Unknown Completed [facility] Influenza Virus Vaccine Unknown Completed [facility] HEPATITIS A Unknown Completed [facility] Pneumococcal 13 Conjugate, PCV13 (Prevnar 13) Unknown Completed [facility] Influenza Virus Vaccine Quad IM 6-35 MO Unknown Completed [facility] Influenza Virus Vaccine Quad IM 3+ YRS Unknown Completed [facility] Influenza Virus Vaccine Unknown Completed [facility] Influenza Virus Vaccine Quad IM, Preserv and ABX Free 6 MO-64 YRS (FLUCELVAX) Unknown Completed [facility] Pneumococcal Polysaccharide, PPSV23 (PNEUMOVAX) Unknown Completed [facility] SARS-COV-2 COVID-19 MODERNA 0.25ML BOOSTER VACCINE Unknown Completed [facility] Meningococcal Polysaccharide (groups A, C, Y and W-135) conjugate vaccine (MCV4P) Unknown Completed [facility] Influenza Virus Vaccine Quad IM, Preserv and ABX Free 6 MO-64 YRS (FLUCELVAX) Unknown Completed [facility] SARS-COV-2 COVID-19 VACCINE 12 YRS+, BIVALENT 0.5ML, IM, (MODERNA-BLUE TOP) Unknown Completed [facility] SMALLPOX MONKEYPOX VACCINE LIVE JYNNEOS, 0.5ML,PF,SQ Unknown Completed [facility] SMALLPOX MONKEYPOX VACCINE LIVE JYNNEOS, ADULT LOW DOSE 0.1ML, PF,ID Unknown Completed [facility] SARS-COV-2 COVID-19 TING/J&J VACCINE Unknown Completed [facility] Influenza Virus Vaccine Quad IM, Preserv and ABX Free 6 MO-64 YRS (FLUCELVAX) Unknown Completed [facility] SARS-COV-2 COVID 19 MAGALYS SUCROSE VACCINE 12+, [id number], 0.3 ML (30 MCG), IM PFIZER (NAVARRO TOP) Unknown Completed [facility] TDAP (ADACEL) VACCINE Unknown Completed [facility] Pneumococcal Polysaccharide, PPSV23 (PNEUMOVAX) Unknown Completed [facility] PPD (TB) Unknown Completed [facility] HEPATITIS A Unknown Completed [facility] HEPATITIS A Unknown Completed [facility] Pneumococcal Polysaccharide, PPSV23 (PNEUMOVAX) Unknown Completed [facility] PPD (TB) Unknown Completed [facility] TDAP Unknown Completed [facility] Influenza Virus Vaccine Unknown Completed [facility] PPD (TB) Unknown Completed [facility] Influenza Virus Vaccine Unknown Completed [facility] HEPATITIS A Unknown Completed [facility] Pneumococcal 13 Conjugate, PCV13 (Prevnar 13) Unknown Completed [facility] Influenza Virus Vaccine Quad IM 6-35 MO Unknown Completed [facility] Influenza Virus Vaccine Quad IM 3+ YRS Unknown Completed [facility] Influenza Virus Vaccine Unknown Completed [facility] Influenza Virus Vaccine Quad IM, Preserv and ABX Free 6 MO-64 YRS (FLUCELVAX) Unknown Completed [facility] Pneumococcal Polysaccharide, PPSV23 (PNEUMOVAX) Unknown Completed [facility] SARS-COV-2 COVID-19 MODERNA 0.25ML BOOSTER VACCINE Unknown Completed [facility] Meningococcal Polysaccharide (groups A, C, Y and W-135) conjugate vaccine (MCV4P) Unknown Completed [facility] Influenza Virus Vaccine Quad IM, Preserv and ABX Free 6 MO-64 YRS (FLUCELVAX) Unknown Completed [facility] SARS-COV-2 COVID-19 VACCINE 12 YRS+, BIVALENT 0.5ML, IM, (MODERNA-BLUE TOP) Unknown Completed [facility] SMALLPOX MONKEYPOX VACCINE LIVE JYNNEOS, 0.5ML,PF,SQ Unknown Completed [facility] SMALLPOX MONKEYPOX VACCINE LIVE JYNNEOS, ADULT LOW DOSE 0.1ML, PF,ID Unknown Completed [facility] SARS-COV-2 COVID-19 TING/J&J VACCINE Unknown Completed [facility] Influenza Virus Vaccine Quad IM, Preserv and ABX Free 6 MO-64 YRS (FLUCELVAX) Unknown Completed [facility] SARS-COV-2 COVID 19 MAGALYS SUCROSE VACCINE 12+, [id number], 0.3 ML (30 MCG), IM PFIZER (NAVARRO TOP) Unknown Completed [facility] Vital Signs Vital Name Observation Time Observation Value Comments Hamzah basilio Systolic blood pressure 2023-04-17 20:39:00 158 mm[Hg] [facility] Diastolic blood pressure 2023-04-17 20:39:00 95 mm[Hg] [facility] Heart rate 2023-04-17 20:39:00 87 /min [facility] Body temperature 2023-04-17 20:39:00 36.94 Christin [facility] Respiratory rate 2023-04-17 20:39:00 16 /min [facility] Body height 2023-04-17 20:39:00 165.1 cm [facility] Body weight 2023-04-17 20:39:00 63.504 kg [facility] BMI 2023-04-17 20:39:00 23.30 kg/m2 [facility] Oxygen saturation in Arterial blood by Pulse oximetry 2023-04-17 20:39:00 98 /min room air [facility] Systolic blood pressure 2022-10-10 18:03:00 147 mm[Hg] [facility] Diastolic blood pressure 2022-10-10 18:03:00 94 mm[Hg] [facility] Heart rate 2022-10-10 18:03:00 86 /min [facility] Body temperature 2022-10-10 18:01:00 36.89 Christin [facility] Respiratory rate 2022-10-10 18:01:00 18 /min [facility] Body height 2022-10-10 18:01:00 165.1 cm [facility] Body weight 2022-10-10 18:01:00 66.679 kg [facility] BMI 2022-10-10 18:01:00 24.46 kg/m2 [facility] Oxygen saturation in Arterial blood by Pulse oximetry 2022-10-10 18:01:00 98 /min [facility] Systolic blood pressure 2022-09-12 19:31:00 161 mm[Hg] [facility] Diastolic blood pressure 2022-09-12 19:31:00 90 mm[Hg] [facility] Heart rate 2022-09-12 19:31:00 83 /min [facility] Body temperature 2022-09-12 19:28:00 36.33 Christin [facility] Respiratory rate 2022-09-12 19:28:00 18 /min [facility] Body height 2022-09-12 19:28:00 165.1 cm [facility] Body weight 2022-09-12 19:28:00 66.679 kg [facility] BMI 2022-09-12 19:28:00 24.46 kg/m2 [facility] Oxygen saturation in Arterial blood by Pulse oximetry 2022-09-12 19:28:00 97 /min [facility] Systolic blood pressure 2022-04-25 19:06:00 164 mm[Hg] [facility] Diastolic blood pressure 2022-04-25 19:06:00 93 mm[Hg] [facility] Heart rate 2022-04-25 19:06:00 76 /min [facility] Body temperature 2022-04-25 19:05:00 36.67 Christin [facility] Body height 2022-04-25 19:05:00 162.6 cm [facility] Body weight 2022-04-25 19:05:00 68.584 kg [facility] BMI 2022-04-25 19:05:00 25.95 kg/m2 [facility] temperature E&M 2019-04-26 15:28:24 98.1 [degF] Count Includes [facility] blood pressure, diastolic 2019-04-26 15:28:24 98 mm[Hg] [facility] blood pressure, systolic 2019-04-26 15:28:24 144 mm[Hg] [facility] pulse rate 2019-04-26 15:28:24 112 /min [facility] oxygen saturation, oximetry 2019-04-26 15:28:24 98 /min [facility] weight E&M 2019-04-26 15:28:24 145 [lb_av] Lega cy [facility] weight in kilograms E&M 2019-04-26 15:28:24 65.91 kg [facility] height in centimeters E&M 2019-04-26 15:28:24 165.10 cm LegCount includes [facility] temperature site 2019-04-26 15:28:24 oral Count Includes [facility] blood pressure, diastolic 2018-12-24 09:50:41 99 mm[Hg] [facility] blood pressure, systolic 2018-12-24 09:50:41 155 mm[facility]Hg[facility] 2018-12-24 09:50:41 91` /min Legac [facility] weight E&M 2018-12-24 09:50:41 157 [lb_av] Lega [facility] weight in kilograms E&M 2018-12-24 09:50:41 [facility]36 [facility] height in centimeters E&M 2018-12-24 09:50:41 165.10 cm LegCount includes [facility] blood pressure, diastolic 2018-12-21 09:56:09 86 mm[Hg] Leg[facility] includes [facility] blood pressure, systolic 2018-12-21 09:56:09 136 mm[Hg] [facility] 2018-12-21 09:56:09 153 [lb_av] [facility] E&M 2018-12-21 09:56:09 69.55 kg Leg[facility] includes [facility] oxygen saturation, oximetry 2018-12-21 09:56:09 98 /min [facility] respiratory rate E&M 2018-12-21 09:56:09 16 /min [facility] pulse rate 2018-12-21 09:56:09 102 /[facility] 2018-12-21 09:56:09 98.1 [degF] [facility] height in centimeters E&M 2018-12-21 09:56:09 165.10 cm [facility] includes [facility] temperature site 2018-12-21 09:56:09 oral [facility] blood pressure, diastolic 2018-10-25 11:52:22 89 mm[Hg] [facility] includes [facility] blood pressure, systolic 2018-10-25 11:52:22 166 mm[facility]Hg] [facility] 2018-10-25 11:52:22 83 /min [facility]&M 2018-10-25 11:52:22 161 [lb_av] [facility] weight in kilograms E&M 2018-10-25 11:52:22 73.18 kg [facility] includes [facility] height in centimeters E&M 2018-10-25 11:52:22 165.10 cm [facility] includes [facility] blood pressure, diastolic 2017-12-21 10:04:46 90 mm[facility]Hg] [facility], systolic 2017-12-21 10:04:46 139 mm[Hg] [facility] rate E&M 2017-12-21 10:04:46 16 /min [facility] rate 2017-12-21 10:04:46 66 /min Legac [facility] oxygen saturation, oximetry 2017-12-21 10:04:46 98 /[facility] temperature E&M 2017-12-21 10:04:46 98.1 [degF] [facility] height in centimeters E&M 2017-12-21 10:04:46 165[facility]10 [facility] 2017-12-21 10:04:46 161 [lb_av] Lega [facility] weight in kilograms E&M 2017-12-21 10:04:46 73.18 kg [facility] temperature site 2017-12-21 10:04:46 tympanic Count Includes [facility] blood pressure, diastolic 2017-07-20 12:39:39 87 mm[Hg] [facility] includes [facility] blood pressure, systolic 2017-07-20 12:39:39 138 mm[Hg] [facility] includes [facility] pulse rate 2017-07-20 12:39:39 76 /[facility] rate E&M 2017-07-20 12:39:39 16 /min [facility] oxygen saturation, oximetry 2017-07-20 12:39:39 97 /min [facility] temperature E&M 2017-07-20 12:39:39 98.7 [degF] [facility]&M 2017-07-20 12:39:39 161.80 [lb_av] L egacy [facility] weight in kilograms E&M 2017-07-20 12:39:39 73.55 kg [facility] includes [facility] height in centimeters E&M 2017-07-20 12:39:39 165.10 cm [facility] includes [facility] temperature site 2017-07-20 12:39:39 tympanic [facility] blood pressure, diastolic 2017-04-17 10:47:27 100 mm[Hg] [facility] includes [facility] blood pressure, systolic 2017-04-17 10:47:27 138 mm[Hg] [facility] 2017-04-17 10:47:27 103 /min [facility] rate E&M 2017-04-17 10:47:27 16 /min [facility] oxygen saturation, oximetry 2017-04-17 10:47:27 98 /[facility] E&M 2017-04-17 10:47:27 99.5 [degF] [facility] weight E&M 2017-04-17 10:47:27 151 [lb_av] Lega [facility] weight in kilograms E&M 2017-04-17 10:47:27 68.64 kg [facility] includes [facility] height in centimeters E&M 2017-04-17 10:47:27 165.10 cm [facility] includes [facility] temperature site 2017-04-17 10:47:27 tympanic Count Includes [facility] blood pressure, diastolic 2016-10-20 10:15:15 88 mm[Hg] [facility] includes [facility] blood pressure, systolic 2016-10-20 10:15:15 135 mm[Hg] [facility] 2016-10-20 10:15:15 92 /min [facility] 2016-10-20 10:15:15 175.13 [lb_av] L [facility] weight in kilograms E&M 2016-10-20 10:15:15 79.60 kg [facility] includes [facility] height in centimeters E&M 2016-10-20 10:15:15 165.10 cm [facility] includes [facility] blood pressure, diastolic 2016-09-21 09:13:37 80 mm[Hg] [facility] includes [facility] blood pressure, systolic 2016-09-21 09:13:37 130 mm[facility]Hg] [facility] 2016-09-21 09:13:37 85 /min Legac [facility] oxygen saturation, oximetry 2016-09-21 09:13:37 98 /min [facility] temperature E&M 2016-09-21 09:13:37 97.5 [degF] [facility] weight E&M 2016-09-21 09:13:37 175 [lb_av] Lega cy [facility] weight in kilograms E&M 2016-09-21 09:13:37 79.55 [facility] height in centimeters E&M 2016-09-21 09:13:37 165.10 cm [facility] temperature site 2016-09-21 09:13:37 tympanic [facility] blood pressure, diastolic 2016-07-21 12:17:59 87 mm[Hg] [facility] blood pressure, systolic 2016-07-21 12:17:59 138 mm[Hg] [facility] pulse rate 2016-07-21 12:17:59 96 /min Legac y [facility] weight E&M 2016-07-21 12:17:59 175.25 [lb_av] L egacy [facility] weight in kilograms E&M 2016-07-21 12:17:59 79.66 [facility] height in centimeters E&M 2016-07-21 12:17:59 [facility] blood pressure, diastolic 2016-06-09 11:43:33 90 mm[facility]Hg] [facility] blood pressure, systolic 2016-06-09 11:43:33 132 mm[facility]Hg] [facility] pulse rate 2016-06-09 11:43:33 89 /min Legac [facility] height in centimeters E&M 2016-06-09 11:43:33 165.10 [facility] pressure, diastolic 2016-05-06 09:53:46 84 mm[Hg] [facility] blood pressure, systolic 2016-05-06 09:53:46 132 mm[Hg] [facility] pulse rate 2016-05-06 09:53:46 97 /min Legac [facility] temperature E&M 2016-05-06 09:53:46 97.5 [degF] [facility] oxygen saturation, oximetry 2016-05-06 09:53:46 98 /min [facility] weight E&M 2016-05-06 09:53:46 181.60 [lb_av] L [facility] weight in kilograms E&M 2016-05-06 09:53:46 82.55 kg [facility] height in centimeters E&M 2016-05-06 09:53:46 165.10 cm [facility] temperature site 2016-05-06 09:53:46 tympanic Count Includes [facility] Procedures Procedure Date / Time Performed Performing Clinician Source SMALLPOX, MONKEYPOX VACCINE, 18+ YRS, 0.1 ML,ID 2022-10-10 17:45:22 [facility] [id number] CONSENT 2022-10-10 06:01:00 Doctor Shane signed, [place] [facility] SMALLPOX, MONKEYPOX VACCINE, 0.5ML,SQ 2022-09-12 20:46:33 [facility] FLU VACC (), 6 MO-64 YRS, .5ML, IM, QUAD (FLUCELVAX) 2022-09-12 20:14:06 [facility] SARS-COV-2 COVID-19 VACCINE 12 YRS+, BIVALENT 0.5ML, IM (MODERNA BOOSTER) 2022-09-12 20:14:06 [facility] [id number] CONSENT 2022-09-12 06:01:00 Doctor Shane signed, [place] [facility] MENACTRA (MCV4-D) VACCINE 2022-04-25 20:08:00 Rinku Smith [facility] Spherocyl, SV, plano to +/- 4.00d sphere, 0.12 to 2.00d cyl, per lens 2017-11-26 11:18:56 Verdugo Ashlee Count Includes [facility] Frames, purchases 2017-11-26 11:18:34 Lucina Ashlee Count Includes [facility] Est Patient Intermediate Opt - [id number] 2017-11-24 11:18:26 Nestor Guzman Count Includes [facility] Primary Care Medical Case Management 2017-02-23 17:27:29 Kasia Betancur Count Includes [facility] Primary Care Medical Case Management 2017-02-16 17:56:43 Kasia Betancur Count Includes [facility] Primary Care Medical Case Management 2017-02-13 18:42:43 Kasia Betancur Count Includes [facility] Dispensing Visit (UNLIVSTED OPHTHALMOLOGICAL SERVICE/PROCEDURE) 2016-07-21 09:54:30 Shirley Encarnacion Count Includes [facility] Primary Care Medical Case Management 2016-07-05 19:13:18 Kasia Betancur Count Includes [facility] Primary Care Medical Case Management 2016-07-04 17:24:31 Kasia Betancur Count Includes [facility] Frames, purchases 2016-06-14 10:10:24 EncarnacionShirley booker Count Includes [facility] Spherocyl, SV, plano to +/- 4.00d sphere, 0.12 to 2.00d cyl, per lens 2016-06-14 10:09[facility]52 [facility] Diagnostic evaluation with medical - [id number] 2016-06-09 13:54:25 Dc Guerrero Count Includes [facility] Est Patient Intermediate Opt - [id number] 2016-06-09 09:55:53 Casa Riggs Count Includes [facility] Est Patient Intermediate Opt - [id number] 2016-06-09 09:13:24 Nestor Guzman Count Includes [facility] Primary Care Medical Case Management 2016-05-19 16:23:45 Kasia Betancur Count Includes [facility] Primary Care Medical Case Management 2016-05-18 18:11:23 Kasia Betancur Count Includes [facility] Primary Care Medical Case Management 2016-05-17 17:22:38 RoyceKasia herrera Count Includes [facility] Primary Care Medical Case Management 2016-05-13 16:51:20 RoyceKasia herrera Count Includes [facility] Primary Care Medical Case Management 2016-05-12 17:31:08 PipeKasia Count Includes [facility] Behavioral Health - Psychiatry 2016-05-12 14:26:13 Pipe Kasia Count Includes [facility] Primary Care - Service Planning Comprehensive 2016-05-06 13:01:29 PipeKasia Count Includes [facility] Primary Care - Assesment-Comprehensive CCM-MCM 2016-05-06 13:01:29 PipeKasia Count Includes [facility] Primary Care Medical Case Management 2016-05-06 13:01:29 Pipe Kasia Count Includes [facility] Behavioral Health - Psychiatry 2016-05-06 10:34:33 Michelleotilia Rupert Count Includes [facility] Dispensing Visit (UNLIVSTED OPHTHALMOLOGICAL SERVICE/PROCEDURE) 2012-10-25 13:23:10 Shirley Encarnacion Count Includes [facility] Frames, purchases 2012-10-16 16:24:53 EncarnacionShirley booker Count Includes [facility] Spherocyl, SV, plano to +/- 4.00d sphere, 0.12 to 2.00d cyl, per lens 2012-10-16 16:24:23 hSirley Encarnacion Count Includes [facility] Est Patient Intermediate Opt - [id number] 2012-10-16 16:00:28 Casa Riggs Count Includes [facility] New Patient Intermediate Opt - [id number] 2012-10-16 15:26:36 Nestor Guzman Count Includes [facility] Encounters Start Date/Time End Date/Time Encounter Type Admission Type Attending [facility] Care Facility Care Department Encounter ID Source 2022-08-04 14:33:04 Outpatient CHW CHW [id number] 1 1115 [facility] 2021-09-04 03:30:10 Emergency [facility] [id number] [facility] 2024-01-15 00:00:00 2024-01-15 00:00:00 Sammy Mack [facility] 1..840.114 350.1.13.10 4.2.7.2.686 [id number] 089 [id number] [facility] 2024-01-10 00:00:00 2024-01-10 00:00:00 Eva Smith [facility] 1..840.114 350.1.13.10 4.2.7.2.686 [id number] 089 [id number] [facility] 2023-12-26 00:00:00 2023-12-26 00:00:00 Outpatient Michael SMITH APOLINAR [facility] [id number] [facility] 2023-11-28 10:15:00 2023-11-28 10:30:00 Sdc Teacher [facility] 1.2.840.114 350.1.13.10 4.2.7.2.686 [id number] [facility] 2023-11-28 09:00:00 2023-11-28 09:00:00 Outpatient R APOLINAR SMITH [facility] [id number] [facility] 2023-10-23 15:30:00 2023-10-23 15:30:00 Outpatient R LUIS APOLINAR [facility] [id number] [facility] 2023-09-21 00:00:00 2023-09-21 [facility] 1.2.840.114 350.1.13.10 4.2.7.2.686 [id number] 089 [id number] [facility] 2023-09-21 00:00:00 2023-09-21 00:00:00 [facility] 1.2.840.114 350.1.13.10 4.2.7.2.686 [id number] 089 [id number] [facility] 2023-09-04 00:00:00 2023-09-04 00:00:00 Telephone [facility] 1.2.840.114 350.1.13.10 4.2.7.2.686 [id number] 089 [id number] [facility] 2023-09-03 00:00:00 2023-09-03 00:00:00 Telephone [facility] 1.2.840.114 350.1.13.10 4.2.7.2.686 [id number] 089 [id number] [facility] 2023-08-02 00:00:00 2023-08-02 00:00:00 Refill [facility] 1.2.840.114 350.1.13.10 4.2.7.2.686 [id number] 089 [id number] [facility] 2023-04-18 00:00:00 2023-04-18 00:00:00 Refill [facility] 1.2.840.114 350.1.13.10 4.2.7.2.686 [id number] 089 [id number] [facility] 2023-04-17 16:00:00 2023-04-17 16:15:00 Sdc Teacher Visit [facility] 1.2.840.114 350.1.13.10 4.2.7.2.686 [id number] [facility] 2023-04-17 15:00:00 2023-04-17 15:30:00 Office Visit [facility] 1.2.840.114 350.1.13.10 4.2.7.2.686 [id number] 089 [id number] [facility] 2023-04-17 15:00:00 2023-04-17 15:00:[address] [facility] [id number] [facility] 2023-04-17 00:00:00 2023-04-17 00:00:00 Telephone [facility] 1.2840.114 350.1.13.10 4.2.7.2.686 [id number] 089 [id number] [facility] 2023-04-07 14:30:00 2023-04-07 14:30:[address] [facility] [id number] [facility] 2023-03-28 10:30:00 2023-03-28 10:30:[address] [facility] [id number] [facility] 2023-03-22 00:00:00 2023-03-22 00:00:00 Refill [facility] 1.2840.114 350.1.13.10 4.2.7.2.686 [id number] 089 [id number] [facility] 2023-03-13 13:00:00 2023-03-13 13:00:00 Outpatient R APOLINAR SMITH [facility] [id number] [facility] 2023-02-14 00:00:00 2023-02-14 00:00:00 Refill [facility] 1.2.840.114 350.1.13.10 4.2.7.2.686 [id number] 089 [id number] [facility] 2022-12-20 00:00:00 2022-12-20 00:00:00 Refill [facility] 1.2.840.114 350.1.13.10 4.2.7.2.686 [id number] 089 [id number] [facility] 2022-11-24 00:00:00 2022-11-24 00:00:00 Refill [facility] 1.2840.114 350.1.13.10 4.2.7.2.686 [id number] 089 [id number] [facility] 2022-10-24 14:09:00 2022-10-24 14:09:00 Outpatient Myrna Pratt CHW CHW [id number] [facility] 2022-10-24 00:00:00 2022-10-24 00:00:00 Refill [facility] 1.2840.114 350.1.13.10 4.2.7.2.686 [id number] 089 [id number] [facility] 2022-10-10 13:30:00 2022-10-10 13:45:00 Nurse Visit Visit, [facility] Id Nurse [facility] 1.2840.114 350.1.13.10 4.2.7.2.686 [id number] 089 [id number] [facility] 2022-10-10 13:30:00 2022-10-10 13:30:00 Outpatient R APOLINAR SMITH [facility] [id number] [facility] 2022-10-10 12:45:00 2022-10-10 13:00:00 Sdc Teacher Visit [facility] 1.2840.114 350.1.13.10 4.2.7.2.686 [id number] [facility] 2022-10-10 00:00:00 2022-10-10 00:00:00 Orders Only Doctor Unassigned, [place] [facility] 1.2840.114 350.1.13.10 4.2.7.2.686 [id number] [id number] [facility] 2022-09-12 15:00:00 2022-09-12 15:15:00 Sdc Teacher Visit [facility] 1.20.114 350.1.13.10 4.2.7.2.686 [id number] [facility] 2022-09-12 13:30:00 2022-09-12 14:00:00 Office Visit [facility] 1.2.114 350.1.13.10 4.2.7.2.686 [id number] 089 [id number] [facility] 2022-09-12 13:30:00 2022-09-12 13:30:00 Outpatient R APOLINAR SMITH [facility] [id number] [facility] 2022-09-12 00:00:00 2022-09-12 00:00:00 Orders Only Doctor Unassigned, [place] [facility] 1.2840.114 350.1.13.10 4.2.7.2.686 [id number] [id number] [facility] 2022-08-02 00:00:00 2022-08-02 00:00:00 Chari Nolan [facility] 1.2.840.114 350.1.13.10 4.2.7.2.686 [id number] 089 [id number] [facility] 2022-07-25 14:30:00 2022-07-25 14:30:00 Outpatient R APOLINAR SMITH [facility] [id number] [facility] 2022-07-12 00:00:00 2022-07-12 00:00:[address] [facility] 1.0.114 350.1.13.10 4.2.7.2.686 [id number] 089 [id number] [facility] 2022-07-12 00:00:00 2022-07-12 00:00:00 [facility] 1.840.114 350.1.13.10 4.2.7.2.686 [id number] 089 [id number] [facility] 2022-06-27 00:00:00 2022-06-27 00:00:00 [facility] 1.840.114 350.1.13.10 4.2.7.2.686 [id number] 089 [id number] [facility] 2022-05-30 00:00:00 2022-05-30 00:00:00 [facility] 1.840.114 350.1.13.10 4.2.7.2.686 [id number] 089 [id number] [facility] 2022-05-11 00:00:00 2022-05-11 00:00:00 Outpatient R APOLINAR SMITH [facility] [id number] [facility] 2022-05-04 00:00:00 2022-05-04 00:00:00 Patient Secure Msg Doctor Unassigned, [place] [facility] 1..114 350.1.13.10 4.2.7.2.686 [id number] 019 [id number] [facility] 2022-05-02 00:00:00 2022-05-02 00:00:00 Chari Nolan [facility] 1.2840.114 350.1.13.10 4.2.7.2.686 [id number] 089 [id number] [facility] 2022-04-25 14:00:00 2022-04-25 14:30:00 Office Visit [facility] 1..114 350.1.13.10 4.2.7.2.686 [id number] 089 [id number] [facility] 2022-04-25 14:00:00 2022-04-25 14:00:[address] [facility] [id number] [facility] 2022-04-05 00:00:00 2022-04-05 00:00:00 Chari Nolan [facility] 1.840.114 350.1.13.10 4.2.7.2.686 [id number] 089 [id number] [facility] 2022-03-29 14:00:00 2022-03-29 14:00:00 Outpatient R LUIS APOLINAR [facility] [id number] [facility] 2022-01-21 13:00:00 2022-01-21 13:00:00 Outpatient R BRAD HARRIS [facility] [id number] [facility] 2022-01-12 08:15:00 2022-01-12 08:30:00 Sdc [facility] 1.84.114 350.1.13.10 4.2.7.2.686 [id number] [facility] 2022-01-12 08:15:00 2022-01-12 08:15:[address] [facility] [id number] [facility] 2022-01-10 00:00:00 2022-01-10 00:00:00 Patient Secure Msg Doctor Unassigned, [place] [facility] 1..114 350.1.13.10 4.2.7.2.686 [id number] 082 [id number] [facility] 2022-01-07 00:00:00 2022-01-07 00:00:00 Refill Luis [facility] 1..114 350.1.13.10 4.2.7.2.686 [id number] 089 [id number] [facility] 2022-01-07 00:00:00 2022-01-07 00:00:00 Refill Chari Siddiqi [facility] 1..114 350.1.13.10 4.2.7.2.686 [id number] 089 [id number] [facility] 2021-12-28 16:30:00 2021-12-28 17:00:00 Office Visit Luis [facility] 1..114 350.1.13.10 4.2.7.2.686 [id number] 089 [id number] [facility] 2021-12-28 16:30:00 2021-12-28 16:30:00 Outpatient R APOLINAR SMITH [facility] [id number] [facility] 2021-12-28 00:00:00 2021-12-28 00:00:00 Case Management Awa Leslie [facility] 1.114 350.1.13.10 4.2.7.2.686 [id number] 089 [id number] [facility] 2021-12-21 15:00:00 2021-12-21 15:00:00 Outpatient R APOLINAR SMITH [facility] [id number] [facility] 2021-11-30 11:30:00 2021-11-30 11:30:00 Outpatient R APOLINAR SMITH [facility] [id number] [facility] 2021-11-30 11:30:00 2021-11-30 11:30:00 [id number] 2021-11-12 10:00:00 2021-11-12 10:00:[address] [facility] [id number] [facility] 2021-11-10 00:00:00 2021-11-10 00:00:00 Refill [facility] 1.84.114 350.1.13.10 4.2.7.2.686 [id number] 089 [id number] [facility] 2021-09-24 00:00:00 2021-09-24 00:00:00 Orders Only Doctor Unassigned, [place] [facility] 1.84.114 350.1.13.10 4.2.7.2.686 [id number] [id number] [facility] 2021-09-14 16:48:04 2021-09-14 16:58:04 Imm/Inj Visit Nurse, Pcp Immunizatio Hiram Zhang [facility] 1.84.114 350.1.13.10 4.2.7.2.686 [id number] [facility] 2021-09-14 16:50:00 2021-09-14 16:50:00 Outpatient HIRAM ROMAN [facility] [id number] [facility] 2021-09-14 00:00:00 2021-09-14 [facility]00 [facility] 1..114 350.1.13.10 4.2.7.2.686 [id number] 089 [id number] [facility] 2021-08-20 00:00:00 2021-08-20 00:00:00 Telephone Emeka, Cait [facility] 1.2.840.114 350.1.13.10 4.2.7.2.686 [id number] 019 [id number] [facility] 2021-08-19 09:47:45 2021-08-19 10:07:45 Urgent Care Adan [facility] 1.2840.114 350.1.13.10 4.2.7.2.686 [id number] [facility] 2021-08-19 10:00:00 2021-08-19 10:00:00 Outpatient R ADAN [facility] [id number] [facility] 2021-08-11 10:49:45 2021-08-11 10:58:54 Sdc Teacher Visit [facility] 1.2840.114 350.1.13.10 4.2.7.2.686 [id number] [facility] 2021-08-11 10:00:00 2021-08-11 10:30:00 Office Visit [facility] 1.20.114 350.1.13.10 4.2.7.2.686 [id number] 089 [id number] [facility] 2021-08-11 10:00:00 2021-08-11 10:00:00 Outpatient R [facility] [id number] [facility] 2021-08-11 10:00:00 2021-08-11 10:00:00 Outpatient R [facility] [id number] [facility] 2021-08-07 00:00:00 2021-08-07 00:00:00 Letter (Out) Patti García [facility] 1.2840.114 350.1.13.10 4.2.7.2.686 [id number] 019 [id number] [facility] 2021-08-06 10:48:16 2021-08-06 11:16:47 Laboratory Only Only, Ang Db Test Unknown, Attending [facility] 1.840.114 350.1.13.10 4.2.7.2.686 [id number] [facility] 2021-08-06 11:00:00 2021-08-06 11:00:00 Outpatient R UNKNOWN, ATTENDING [facility] [id number] [facility] 2021-07-27 09:00:00 2021-07-27 09:00:00 Outpatient R SHAWNEE VITAL [facility] [id number] [facility] 2021-07-26 13:00:00 2021-07-26 13:00:00 Outpatient R LUIS APOLINAR [facility] [id number] [facility] 2021-07-26 00:00:00 2021-07-26 [facility]:00[facility].114 350.1.13.10 4.2.7.2.686 [id number] 089 [id number] [facility] 2021-06-23 13:15:00 2021-06-23 13:15:00 Outpatient R SEE BLACKWELL [facility] [id number] [facility] 2021-05-26 00:00:00 2021-05-26 00:00:00 Patient Secure Msg Doctor Unassigned, [place] [facility] 1.840.114 350.1.13.10 4.2.7.2.686 [id number] [facility] 2021-05-24 10:30:00 2021-05-24 10:30:00 Outpatient R LUIS APOLINAR [facility] [id number] [facility] 2021-05-24 09:45:39 2021-05-24 10:15:39 Office Visit [facility] .2.840.114 350.1.13.10 4.2.7.2.686 [id number] 089 [id number] 2021-05-24 09:45:39 2021-05-24 10:15:39 Office Visit [facility] 1.2.840.114 350.1.13.10 4.2.7.2.686 [id number] 089 [id number] [facility] 2021-05-05 00:00:00 2021-05-05 00:00:00 Refill [facility] 1.2.840.114 350.1.13.10 4.2.7.2.686 [id number] 089 [id number] [facility] 2021-04-27 00:00:00 2021-04-27 00:00:00 Patient Secure Msg Doctor Unassigned, [place] [facility] 1.2.840.114 350.1.13.10 4.2.7.2.686 [id number] 019 [id number] [facility] 2021-04-26 11:56:12 2021-04-26 12:11:12 Sdc Teacher Visit [facility] 1.2.840.114 350.1.13.10 4.2.7.2.686 [id number] [facility] 2021-04-26 11:02:28 2021-04-26 11:55:04 Office Visit [facility] 1.2.840.114 350.1.13.10 4.2.7.2.686 [id number] 089 [id number] [facility] 2021-04-26 11:00:00 2021-04-26 11:55:[address] [facility] [id number] [facility] 2021-04-26 11:00:00 2021-04-26 11:00:[address] [facility] [id number] [facility] 2021-02-12 00:00:00 2021-02-12 00:00:00 Refill [facility] 1.2.840.114 350.1.13.10 4.2.7.2.686 [id number] 089 [id number] [facility] 2021-02-11 00:00:00 2021-02-11 00:00:00 Telephone [facility] 1.2.840.114 350.1.13.10 4.2.7.2.686 [id number] 089 [id number] [facility] 2021-02-10 15:10:00 2021-02-10 15:10:00 Outpatient HIRAM DUPONT [facility] [id number] [facility] 2021-02-10 00:00:00 2021-02-10 00:00:00 Telephone [facility] 1.2.840.114 350.1.13.10 4.2.7.2.686 [id number] 089 [id number] [facility] 2021-02-08 00:00:00 2021-02-08 00:00:00 Refill [facility] 1.2.840.114 350.1.13.10 4.2.7.2.686 [id number] 089 [id number] [facility] 2021-02-07 00:00:00 2021-02-07 00:00:00 Refill [facility] 1.2.840.114 350.1.13.10 4.2.7.2.686 [id number] 089 [id number] [facility] 2021-02-03 00:00:00 2021-02-03 00:00:00 Telephone [facility] 1.2.840.114 350.1.13.10 4.2.7.2.686 [id number] 089 [id number] [facility] 2021-01-21 00:00:00 2021-01-21 00:00:00 Patient Outreach DreHiram [facility] 1.0.114 350.1.13.10 4.2.7.2.686 [id number] [facility] 2020-11-30 18:20:00 2020-11-30 18:20:00 [facility] [id number] 2020-11-30 17:53:14 2020-11-30 18:13:14 Laboratory Only Lab, Adc [facility] Ananth Douglas [facility] 1..114 350.1.13.10 4.2.7.2.686 [id number] 044 [id number] [facility] 2020-10-26 11:41:13 2020-10-26 11:56:13 Sdc Teacher Visit [facility] 1.20.114 350.1.13.10 4.2.7.2.686 [id number] [facility] 2020-10-26 10:46:04 2020-10-26 11:16:04 Office Visit [facility] 1.2840.114 350.1.13.10 4.2.7.2.686 [id number] 089 [id number] [facility] 2020-10-26 11:00:00 2020-10-26 11:00:00 Outpatient [facility] [id number] [facility] 2020-09-12 00:00:00 2020-09-12 00:00:00 Telephone Anastasia Brito [facility] 1..114 350.1.13.10 4.2.7.2.686 [id number] 025 [id number] [facility] 2020-09-10 15:49:00 2020-09-10 20:08:00 Emergency [facility] 1.2840.114 350.1.13.10 4.2.7.2.686 [id number] [id number] [facility] 2020-03-26 00:00:00 2020-03-26 00:00:00 Telephone [facility] 1.2840.114 350.1.13.10 4.2.7.2.686 [id number] 089 [id number] [facility] 2020-02-26 00:00:00 2020-02-26 00:00:00 Refill [facility] 1.2840.114 350.1.13.10 4.2.7.2.686 [id number] 089 [id number] [facility] 2020-02-24 10:15:00 2020-02-24 10:15:00 Outpatient R ELISA MONTENEGRO [facility] [id number] [facility] 2020-02-14 00:00:00 2020-02-14 00:00:00 Telephone [facility] 1.2840.114 350.1.13.10 4.2.7.2.686 [id number] 089 [id number] [facility] 2020-02-04 08:30:00 2020-02-04 08:30:00 Outpatient R [facility] [id number] [facility] 2020-02-04 07:20:02 2020-02-04 07:50:02 Telemedici ne Visit Sheryl Aquino Steven Mark [facility] 1.2840.114 350.1.13.10 4.2.7.2.686 [id number] 071 [id number] [facility] 2020-01-27 00:00:00 2020-01-27 00:00:00 Refill [facility] 1.2840.114 350.1.13.10 4.2.7.2.686 [id number] 089 [id number] [facility] 2019-12-26 14:27:10 2019-12-26 19:05:00 Emergency X MARISOL ODONNELL [facility] ERT [id number] [facility] 2019-12-26 14:27:10 2019-12-26 19:05:00 Emergency Marisol [facility] 1.2840.114 350.1.13.10 4.2.7.2.686 [id number] [id number] [facility] 2019-12-26 00:00:00 2019-12-26 00:00:00 Patient Secure Msg Doctor Unassigned, [place] [facility] 1.0.114 350.1.13.10 4.2.7.2.686 [id number] [facility] 2019-12-25 00:00:00 2019-12-25 00:00:00 Telephone [facility] 1..114 350.1.13.10 4.2.7.2.686 [id number] 089 [id number] [facility] 2019-12-17 10:30:00 2019-12-17 11:59:42 Outpatient R LUIS APOLINAR [facility] [id number] [facility] 2019-12-17 10:08:35 2019-12-17 11:59:42 Office Visit [facility] 1.0.114 350.1.13.10 4.2.7.2.686 [id number] 089 [id number] [facility] 2019-12-14 00:00:00 2019-12-14 00:00:00 Patient Secure Msg Doctor Unassigned, [place] [facility] 1.20.114 350.1.13.10 4.2.7.2.686 [id number] [facility] 2019-12-07 00:00:00 2019-12-07 00:00:00 Refill [facility] 1.2.840.114 350.1.13.10 4.2.7.2.686 [id number] 089 [id number] [facility] 2019-12-06 00:00:00 2019-12-06 00:00:00 Telephone [facility] 1.2.840.114 350.1.13.10 4.2.7.2.686 [id number] 089 [id number] [facility] 2019-12-02 12:24:39 2019-12-02 13:04:27 Sdc Teacher Visit [facility] 1.2.840.114 350.1.13.10 4.2.7.2.686 [id number] [facility] 2019-12-02 09:31:38 2019-12-02 12:19:07 Office Visit [facility] 1.2.840.114 350.1.13.10 4.2.7.2.686 [id number] 089 [id number] [facility] 2019-12-02 00:00:00 2019-12-02 00:00:00 Orders Only Doctor Unassigned, [place] [facility] 1.2.840.114 350.1.13.10 4.2.7.2.686 [id number] [id number] [facility] 2019-12-02 00:00:00 2019-12-02 00:00:00 Case Management Sofya Hightower [facility] 1.2.840.114 350.1.13.10 4.2.7.2.686 [id number] 089 [id number] [facility] 2019-11-20 00:00:00 2019-11-20 00:00:00 Office Visit Rupert Tiwari Leonardo [facility] Adult Medicine Encounter/ [id number] [facility] 2019-11-15 00:00:2019-11-15 00:00:00 Office Visit Araceli Thomson [facility] Adult Medicine Encounter/ [id number] Ad[facility] 2019-11-02 00:00:00 2019-11-02 00:00:00 Office Visit Rupert Tiwari [facility] Adult Medicine Encounter/ [id number] Legje [facility] 2019-11-02 00:00:00 2019-11-02 00:00:00 Office Visit Rupert Tiwari Nancy [facility] Adult Medicine Encounter/ [id number] Adair [facility] 2019-11-02 00:00:00 2019-11-02 00:00:00 Office Visit Extra HoursSalo [facility] Services Encounter/ [id number] [facility]air [facility] 2019-11-02 00:00:00 2019-11-02 00:00:00 Office Visit Extra HoursSalo [facility] Services Encounter/ [id number] [facility] 2019-10-17 00:00:00 2019-10-17 00:00:00 Office Visit Rupert Tiwari [facility] Encounter/ [id number] [facility] 2019-10-14 00:00:00 2019-10-14 00:00:00 Office Visit Rupert Tiwari MedAdherenc e,Chuck [facility] Adult Medicine Encounter/ [id number] [facility] 2019-09-30 00:00:00 2019-09-30 00:00:00 Office Visit Araceli Thomson [facility] Adult Medicine Encounter/ [id number] Legje [facility] 2019-09-17 00:00:00 2019-09-17 00:00:00 Office Visit Rupert Tiwari MedAdherenc eJaci [facility] Adult Medicine Encounter/ [id number] [facility] 2019-08-23 00:00:00 2019-08-23 00:00:00 Office Visit Rupert Tiwari MedAd[facility] e,Marni [facility] Services Encounter/ [id number] Legje Garcia [facility] 2019-07-17 00:00:00 2019-07-17 00:00:00 [facility] [id number] Legje Garcia [employer] [facility] 2019-05-21 00:00:00 2019-05-21 00:00:00 Office Visit Rupert Tiwari MedAdherenc eNaomie [facility] Adult Medicine Encounter/ [id number] Legje Garcia [facility] 2019-05-17 00:00:00 2019-05-17 00:00:00 Office Visit Araceli Thomson [facility] Adult Medicine Encounter/ [id number] Legje Garcia [facility] 2019-04-30 00:00:00 2019-04-30 00:00:00 Office Visit Rupert Tiwari [facility] Adult Medicine Encounter/ [id number] [facility] 2019-04-29 00:00:00 2019-04-29 00:00:00 Office Visit Caterina Palafox Erick [facility] Adult Medicine Encounter/ [id number] [facility] 2019-04-26 00:00:00 2019-04-26 00:00:00 Office Visit Rupert Tiwari [facility] Adult Medicine Encounter/ [id number] [facility] 2019-04-26 00:00:00 2019-04-26 00:00:00 Office Visit Rupert Tiwari [facility] Adult Medicine Encounter/ [id number] [facility] 2019-04-26 00:00:00 2019-04-26 00:00:00 Office Visit Rupert Tiwari [facility] Adult Medicine Encounter/ [id number] [facility] 2019-04-26 00:00:00 2019-04-26 00:00:00 Office Visit Rupert Tiwari Erick [facility] Adult Medicine Encounter/ [id number] [facility] [facility] 2019-04-25 00:00:00 2019-04-25 00:00:00 Office Visit Caterina Palafox [facility] Encounter/ [id number] [facility] 2019-04-25 00:00:00 2019-04-25 00:00:00 Office Visit Rupert Tiwari [facility] Adult Medicine Encounter/ [id number] [facility] 2019-04-25 00:00:00 2019-04-25 00:00:00 Office Visit Rupert Tiwari [facility] Adult Medicine Encounter/ [id number] [facility] 2019-03-13 00:00:00 2019-03-13 00:00:00 Office Visit Isabel Wilder [facility] Encounter/ [id number] [facility] 2019-02-27 00:00:00 2019-02-27 00:00:00 Office Visit Zuly tian,Marni [facility] Adult Medicine Encounter/ [id number] [facility] 2019-02-08 00:00:00 2019-02-08 00:00:00 Office Visit Kelli Wilkins [facility] Public Health Services Encounter/ [id number] [facility] 2019-01-15 00:00:00 2019-01-15 00:00:00 Office Visit Dc Guerrero [facility] Behavioral Health Encounter/ [id number] [facility] 2018-12-24 00:00:00 2018-12-24 00:00:00 Office Visit Dc Guerrero [facility] Encounter/ [id number] [facility] 2018-12-21 00:00:00 2018-12-21 00:00:00 Office Visit Caterina Palafox [facility] Adult Medicine Encounter/ [id number] [facility] 2018-12-21 00:00:00 2018-12-21 00:00:00 Office Visit Rupert Tiwari [facility] Adult Medicine Encounter/ [id number] [facility] 2018-12-21 00:00:00 2018-12-21 00:00:00 Office Visit Rupert Tiwari Azucena [facility] Adult Medicine Encounter/ [id number] [facility] 2018-10-25 00:00:00 2018-10-25 00:00:00 Office Visit Rupert Tiwari [facility] Adult Medicine Encounter/ [id number] [facility] 2018-10-25 00:00:00 2018-10-25 00:00:00 Office Visit Rupert Tiwari [facility] Adult Medicine Encounter/ [id number] [facility] 2018-10-25 00:00:00 2018-10-25 00:00:00 Office Visit Dc Guerrero [facility] Encounter/ [id number] [facility] 2018-10-25 00:00:00 2018-10-25 00:00:00 Office Visit Rupert Tiwari Jonah [facility] Adult Medicine Encounter/ [id number] [facility] 2018-10-08 00:00:00 2018-10-08 00:00:00 Office Visit Rupert Tiwari MedAdhermary anne e,Marni [facility] Adult Medicine Encounter/ [id number] [facility] 2018-10-05 00:00:00 2018-10-05 00:00:00 Office Visit Vanessa Loomis [facility] Services Encounter/ [id number] [facility] 2018-05-22 00:00:00 2018-05-22 00:00:00 Office Visit Rupert Tiwari [facility] Adult Medicine Encounter/ [id number] [facility] 2018-05-21 00:00:00 2018-05-21 00:00:00 Office Visit Rupert Tiwari [facility] Adult Medicine Encounter/ [id number] [facility] [employer] [facility] 2018-05-21 00:00:00 2018-05-21 00:00:00 Office Visit Rupert Tiwari [facility] Adult Medicine Encounter/ [id number] [facility] 2018-05-21 00:00:00 2018-05-21 00:00:00 Office Visit Rupert Tiwari [facility] Adult Medicine Encounter/ [id number] [facility] 2018-04-03 00:00:00 2018-04-03 00:00:00 Office Visit Rupert Tiwari Lori [facility] Adult Medicine Encounter/ [id number] [facility] 2018-04-01 00:00:00 2018-04-01 00:00:00 Office Visit Rupert Tiwari Lori [facility] Adult Medicine Encounter/ [id number] [facility] 2018-03-07 00:00:00 2018-03-07 00:00:00 Office Visit Rupert Tiwari Lori [facility] Adult Medicine Encounter/ [id number] [facility] 2018-03-06 00:00:00 2018-03-06 00:00:00 Office Visit Rupert Tiwari Lori [facility] Adult Medicine Encounter/ [id number] [facility] 2018-01-03 00:00:00 2018-01-03 00:00:00 Office Visit Elva Brown [facility] Services Encounter/ [id number] [facility] 2017-12-21 00:00:00 2017-12-21 00:00:00 Office Visit Denise Wilder [facility] Adult Medicine Encounter/ [id number] [facility] 2017-12-21 00:00:00 2017-12-21 00:00:00 Office Visit Rupert Tiwari [facility] Adult Medicine Encounter/ [id number] [facility] 2017-12-21 00:00:00 2017-12-21 00:00:00 Office Visit Rupert Tiwari [facility] Adult Medicine Encounter/ [id number] [facility] 2017-12-21 00:00:00 2017-12-21 00:00:00 Office Visit Rupert Tiwari Azucena [facility] Adult Medicine Encounter/ [id number] [facility] 2017-12-21 00:00:00 2017-12-21 00:00:00 Office Visit Ashlee Verdugo [facility] Vision Encounter/ [id number] [facility] 2017-11-24 00:00:00 2017-11-24 00:00:00 Office Visit Rupert Tiwari [facility] Adult Medicine Encounter/ [id number] [facility] 2017-11-24 00:00:00 2017-11-24 00:00:00 Office Visit Ashlee Verdugo [facility] Vision Encounter/ [id number] [facility] 2017-11-24 00:00:00 2017-11-24 00:00:00 Office Visit Nestor Guzman [facility] Vision Encounter/ [id number] [facility] 2017-11-24 00:00:00 2017-11-24 00:00:00 Office Visit Nestor Guzman [facility] Vision Encounter/ [id number] [facility] 2017-11-24 00:00:00 2017-11-24 00:00:00 Office Visit Nestor Guzman [facility] Vision Encounter/ [id number] [facility] 2017-11-24 00:00:00 2017-11-24 00:00:00 Office Visit Nestor Guzman Laurie [facility] Vision Encounter/ [id number] [facility] 2017-11-22 00:00:00 2017-11-22 00:00:00 Office Visit Rupert Tiwari Lori [facility] Adult Medicine Encounter/ [id number] [facility] 2017-11-22 00:00:00 2017-11-22 00:00:00 Office Visit Silvia Hassan Lori [facility] Adult Medicine Encounter/ [id number] [facility] 2017-11-21 00:00:00 2017-11-21 00:00:00 Office Visit Rupert Tiwari Lori [facility] Adult Medicine Encounter/ [id number] [facility] 2017-11-16 00:00:00 2017-11-16 00:00:00 Office Visit Silvia Hassan Lori [facility] Adult Medicine Encounter/ [id number] [facility] 2017-11-15 00:00:00 2017-11-15 00:00:00 Office Visit Leticia Linder [facility] Encounter/ [id number] [facility] 2017-10-05 00:00:00 2017-10-05 00:00:00 Office Visit Valerie Moore [facility] Encounter/ [id number] [facility] 2017-08-01 00:00:00 2017-08-01 00:00:00 Office Visit Rupert Tiwari Lori [facility] Adult Medicine Encounter/ [id number] [facility] 2017-07-20 00:00:00 2017-07-20 00:00:00 Office Visit Rupert Tiwari [facility] Adult Medicine Encounter/ [id number] [facility] 2017-07-20 00:00:00 2017-07-20 00:00:00 Office Visit Rupert Tiwari Azucena [facility] Adult Medicine Encounter/ [id number] [facility] 2017-06-16 00:00:00 2017-06-16 00:00:00 Office Visit Rupert Tiwari [facility] Adult Medicine Encounter/ [id number] [facility] 2017-06-16 00:00:00 2017-06-16 00:00:00 Office Visit Denise Wilder [facility] Adult Medicine Encounter/ [id number] [facility] 2017-05-15 00:00:00 2017-05-15 00:00:00 Office Visit Rupert Tiwari [facility] Adult Medicine Encounter/ [id number] [facility] 2017-04-17 00:00:00 2017-04-17 00:00:00 Office Visit Camila Woodard [facility] Manager Welding Encounter/ [id number] [facility] 2017-04-17 00:00:00 2017-04-17 00:00:00 Office Visit Samantha Cast [facility] Manager Welding Encounter/ [id number] [facility] 2017-04-17 00:00:00 2017-04-17 00:00:00 Office Visit Rupert Tiwari [facility] Adult Medicine Encounter/ [id number] [facility] 2017-04-17 00:00:00 2017-04-17 00:00:00 Office Visit Rupert Tiwari [facility] Adult Medicine Encounter/ [id number] [facility] 2017-04-17 00:00:00 2017-04-17 00:00:00 Office Visit Rupert Tiwari Azucena [facility] Adult Medicine Encounter/ [id number] [facility] 2017-02-23 00:00:00 2017-02-23 00:00:00 Office Visit Kasia Betancur [facility] Manager Welding Encounter/ [id number] [facility] 2017-02-20 00:00:00 2017-02-20 00:00:00 Office Visit Kasia Betancur [facility] Manager Welding Encounter/ [id number] [facility] 2017-02-16 00:00:00 2017-02-16 00:00:00 Office Visit Kasia Betancur [facility] Manager Welding Encounter/ [id number] [facility] 2017-02-16 00:00:00 2017-02-16 00:00:00 Office Visit Kasia Betancur [facility] Manager Welding Encounter/ [id number] [facility] 2017-02-13 00:00:00 2017-02-13 00:00:00 Office Visit Kasia Betancur [facility] Manager Welding Encounter/ [id number] [facility] 2017-01-30 00:00:00 2017-01-30 00:00:00 Office Visit Robby Edwards [facility] Behavioral Health Encounter/ [id number] [facility] 2017-01-30 00:00:00 2017-01-30 00:00:00 Office Visit Robby Edwards [facility] Behavioral Health Encounter/ [id number] [facility] 2017-01-29 00:00:00 2017-01-29 00:00:00 Office Visit Robby Edwards [facility] Behavioral Health Encounter/ [id number] [facility] 2017-01-29 00:00:00 2017-01-29 00:00:00 Office Visit Robby Edwards [facility] Behavioral Health Encounter/ [id number] [facility] 2017-01-24 00:00:00 2017-01-24 00:00:00 Office Visit Az Islas [facility] Adult Medicine Encounter/ [id number] [facility] 2017-01-18 00:00:00 2017-01-18 00:00:00 Office Visit Rupert Tiwari [facility] Adult Medicine Encounter/ [id number] [facility] 2017-01-18 00:00:00 2017-01-18 00:00:00 Office Visit Rupert Tiwari [facility] Adult Medicine Encounter/ [id number] [facility] 2017-01-17 00:00:00 2017-01-17 00:00:00 Office Visit Saloni Gil [facility] Adult Medicine Encounter/ [id number] [facility] 2016-12-28 00:00:00 2016-12-28 00:00:00 Office Visit Robby Edwards [facility] Behavioral Health Encounter/ [id number] [facility] 2016-12-28 00:00:00 2016-12-28 00:00:00 Office Visit Robby Edwards [facility] Behavioral Health Encounter/ [id number] [facility] 2016-11-28 00:00:00 2016-11-28 00:00:00 Office Visit Sneha Dan [facility] Adult Medicine Encounter/ [id number] [facility] 2016-10-20 00:00:00 2016-10-20 00:00:00 Office Visit Dc Guerrero [facility] Encounter/ [id number] [facility] 2016-10-20 00:00:00 2016-10-20 00:00:00 Office Visit Dc Guerrero [facility] Encounter/ [id number] [facility] 2016-10-17 00:00:00 2016-10-17 00:00:00 Office Visit Dc Guerrero [facility] Behavioral Health Encounter/ [id number] [facility] 2016-10-17 00:00:00 2016-10-17 00:00:00 Office Visit Dc Guerrero [facility] Behavioral Health Encounter/ [id number] [facility] 2016-10-17 00:00:00 2016-10-17 00:00:00 Office Visit Dc Guerrero [facility] Behavioral Health Encounter/ [id number] [facility] 2016-10-16 00:00:00 2016-10-16 00:00:00 Office Visit Dc Guerrero [facility] Behavioral Health Encounter/ [id number] [facility] 2016-09-21 00:00:00 2016-09-21 00:00:00 Office Visit Rupert Tiwari [facility] Adult Medicine Encounter/ [id number] [facility] 2016-09-21 00:00:00 2016-09-21 00:00:00 Office Visit Rupert Tiwari [facility] Adult Medicine Encounter/ [id number] [facility] 2016-09-21 00:00:00 2016-09-21 00:00:00 Office Visit Rupert Tiwari [facility] Adult Medicine Encounter/ [id number] [facility] 2016-09-21 00:00:00 2016-09-21 00:00:00 Office Visit Caterina Palafox [facility] Adult Medicine Encounter/ [id number] [facility] 2016-09-21 00:00:00 2016-09-21 00:00:00 Office Visit Rupert Tiwari [facility] Adult Medicine Encounter/ [id number] [facility] 2016-09-21 00:00:00 2016-09-21 00:00:00 Office Visit Rupert Tiwari Azucena [facility] Adult Medicine Encounter/ [id number] [facility] 2016-09-20 00:00:00 2016-09-20 00:00:00 Office Visit Dc Guerrero [facility] Behavioral Health Encounter/ [id number] [facility] 2016-09-19 00:00:00 2016-09-19 00:00:00 Office Visit Dc Guerrero [facility] Behavioral Health Encounter/ [id number] [facility] 2016-09-14 00:00:00 2016-09-14 00:00:00 Office Visit LoanSneha [facility] Adult Medicine Encounter/ [id number] [facility] 2016-09-02 00:00:00 2016-09-02 00:00:00 Office Visit Dc Guerrero [facility] Behavioral Health Encounter/ [id number] [facility] 2016-09-02 00:00:00 2016-09-02 00:00:00 Office Visit Dc Guerrero [facility] Behavioral Health Encounter/ [id number] [facility] 2016-07-21 00:00:00 2016-07-21 00:00:00 Office Visit Casa Riggs [facility] Vision Encounter/ [id number] [facility] 2016-07-21 00:00:00 2016-07-21 00:00:00 Office Visit Rupert Tiwari [facility] Adult Medicine Encounter/ [id number] [facility] 2016-07-21 00:00:00 2016-07-21 00:00:00 Office Visit Dc Guerrero [facility] Encounter/ [id number] [facility] 2016-07-21 00:00:00 2016-07-21 00:00:00 Office Visit Shirley Encarnacion [facility] Vision Encounter/ [id number] [facility] 2016-07-12 00:00:00 2016-07-12 00:00:00 Office Visit Rupert Tiwari Leslie Iglesias, Diana [facility] Services Contact Center Encounter/ [id number] [facility] 2016-07-12 00:00:00 2016-07-12 00:00:00 Office Visit Dc Guerrero [facility] Behavioral Health Encounter/ [id number] [facility] 2016-07-12 00:00:00 2016-07-12 00:00:00 Office Visit Dc Guerrero [facility] Behavioral Health Encounter/ [id number] [facility] 2016-07-05 00:00:00 2016-07-05 00:00:00 Office Visit Kasia Betancur [facility] Manager Welding Encounter/ [id number] [facility] 2016-07-04 00:00:00 2016-07-04 00:00:00 Office Visit Kasia Betancur [facility] Manager Welding Encounter/ [id number] [facility] 2016-07-01 00:00:00 2016-07-01 00:00:00 Office Visit Caterina Palafox Raul Wallace, Sabrina [facility] Services Contact Center Encounter/ [id number] [facility] 2016-06-09 00:00:00 2016-06-09 00:00:00 Office Visit Shirley Encarnacion [facility] Vision Encounter/ [id number] [facility] 2016-06-09 00:00:00 2016-06-09 00:00:00 Office Visit Dc Guerrero [facility] Encounter/ [id number] [facility] 2016-06-09 00:00:00 2016-06-09 00:00:00 Office Visit [place]gs [facility] Vision Encounter/ [id number] [facility] 2016-06-09 00:00:00 2016-06-09 00:00:00 Office Visit Casa Riggs [facility] Vision Encounter/ [id number] [facility] 2016-06-09 00:00:00 2016-06-09 00:00:00 Office Visit [place] Eva [facility] Vision Encounter/ [id number] [facility] 2016-06-09 00:00:00 2016-06-09 00:00:00 Office Visit Nestor Guzman [facility] Vision Encounter/ [id number] [facility] 2016-06-09 00:00:00 2016-06-09 00:00:00 Office Visit Nestor Guzman [facility] Vision Encounter/ [id number] [facility] 2016-06-09 00:00:00 2016-06-09 00:00:00 Office Visit Nestor Guzman [facility] Vision Encounter/ [id number] [facility] 2016-06-09 00:00:00 2016-06-09 00:00:00 Office Visit Nestor Guzman Cecilia [facility] Vision Encounter/ [id number] [facility] 2016-06-07 00:00:00 2016-06-07 00:00:00 [facility] [id number] [facility] 2016-05-19 00:00:00 2016-05-19 00:00:00 Office Visit Kasia Betancur [facility] Manager Welding Encounter/ [id number] [facility] 2016-05-18 00:00:00 2016-05-18 00:00:00 Office Visit Kasia Betancur [facility] Manager Welding Encounter/ [id number] [facility] 2016-05-17 00:00:00 2016-05-17 00:00:00 Office Visit Kasia Betancur [facility] Manager Welding Encounter/ [id number] [facility] 2016-05-13 00:00:00 2016-05-13 00:00:00 Office Visit Rupert Tiwari [facility] Adult Medicine Encounter/ [id number] [facility] 2016-05-13 00:00:00 2016-05-13 00:00:00 Office Visit Kasia Betancur [facility] Manager Welding Encounter/ [id number] [facility] 2016-05-13 00:00:00 2016-05-13 00:00:00 Office Visit Rupert Tiwari [facility] Adult Medicine Encounter/ [id number] [facility] 2016-05-12 00:00:00 2016-05-12 00:00:00 Office Visit Kasia Betancur [facility] Manager Welding Encounter/ [id number] [facility] 2016-05-06 00:00:00 2016-05-06 00:00:00 Office Visit Rupert Tiwari [facility] Adult Medicine Encounter/ [id number] [facility] 2016-05-06 00:00:00 2016-05-06 00:00:00 Office Visit Rupert Tiwari [facility] Adult Medicine Encounter/ [id number] [facility] 2016-05-06 00:00:00 2016-05-06 00:00:00 Office Visit Kasia Betancur [facility] Manager Welding Encounter/ [id number] [facility] 2016-05-06 00:00:00 2016-05-06 00:00:00 Office Visit Kasia Betancur [facility] Manager Welding Encounter/ [id number] [facility] 2016-05-06 00:00:00 2016-05-06 00:00:00 Office Visit Kasia Betancur Sandra Rocha, Jessenia [facility] Manager Welding Encounter/ [id number] [facility] 2016-05-06 00:00:00 2016-05-06 00:00:00 Office Visit Rupert Tiwari [facility] Adult Medicine Encounter/ [id number] [facility] 2016-05-06 00:00:00 2016-05-06 00:00:00 Office Visit Rupert Tiwari [facility] Adult Medicine Encounter/ [id number] [facility] 2016-05-06 00:00:00 2016-05-06 00:00:00 Office Visit Rupert Tiwari Sandra Davila, Caterina Santiago, Yolie [facility] Adult Medicine Encounter/ [id number] [facility] 2016-05-06 00:00:00 2016-05-06 00:00:00 Office Visit Ameena Stringer [facility] Adult Medicine Encounter/ [id number] [facility] 2016-05-06 00:00:00 2016-05-06 00:00:00 Office Visit Ameena Stringer [facility] Adult Medicine Encounter/ [id number] [facility] 2016-05-06 00:00:00 2016-05-06 00:00:00 Office Visit Ameena Stringer [facility] Adult Medicine Encounter/ [id number] [facility] 2016-05-05 00:00:00 2016-05-05 00:00:00 Office Visit Ivory Fontanez [facility] Behavioral Health Encounter/ [id number] [facility] 2016-04-28 00:00:00 2016-04-28 00:00:00 Office Visit Kaleigh Finney [facility] Adult Medicine Encounter/ [id number] [facility] 2016-04-15 00:00:00 2016-04-15 00:00:00 Office Visit Rupert Tiwari [facility] Adult Medicine Encounter/ [id number] [facility] 2016-04-15 00:00:00 2016-04-15 00:00:00 Office Visit Kiel Billy [facility] Services Encounter/ [id number] [facility] 2016-04-15 00:00:00 2016-04-15 00:00:00 Office Visit KarieRupert [facility] Services Encounter/ [id number] [facility] 2014-09-04 00:00:00 2014-09-04 00:00:00 Office Visit Jamal Zelaya [facility] [facility] En[facility]/ [id number] [facility] 2012-10-25 00:00:00 2012-10-25 00:00:00 Office Visit Nestor Guzman [facility] Vision Encounter/ [id number] [facility] 2012-10-25 00:00:00 2012-10-25 00:00:00 Office Visit Shirley Encarnacion [facility] Vision Encounter/ [id number] [facility] 2012-10-16 00:00:00 2012-10-16 00:00:00 Office Visit Shirley Encarnacion [facility] Vision Encounter/ [id number] [facility] 2012-10-16 00:00:00 2012-10-16 00:00:00 Office Visit [place] Eva [facility] Vision Encounter/ [id number] [facility] 2012-10-16 00:00:00 2012-10-16 00:00:00 Office Visit Nestor Guzman Cecilia [facility] Vision Encounter/ [id number] [facility] 2012-10-16 00:00:00 2012-10-16 00:00:00 Office Visit Alejandro Saenz [facility] Adult Medicine Encounter/ [id number] [facility] Results Test Description Test Time Test Comments Results Result Co mments Source [facility]cludes [facility]LDL [facility], [id number] 11:10:00* Test Item Value Reference Range Interpretation Comme [facility] LDL cholesterol, serum (test code = 2089-1) 89 mg/dL 0-99 [facility] HospitalHDL cholesterol, [id number] 11:10:00* Test Item Value Reference Range Interpretation Comme [facility] HDL cholesterol, serum (test code = 2085-9) 29 mg/dL >39 L Count Includes [facility] Hospitaltriglyceride, serum, [id number] 11:10:00* Test Item Value Reference Range Interpretation Comme nts triglyceride, serum, fasting (test code = 2571-8) 272 mg/dL 0-149 H Count Includes [facility] Hospitalcholesterol, [id number] 11:10:00* Test Item Value Reference Range Interpretation Comme nts cholesterol, serum (test cod e = 2093-3) 172 mg/dL 100-199 Count Includes [facility] HospitalT-helper cells (CD4) as percent of blood lymphocytes 2019-11-02 11:10:00* Test Item Value Reference Range Interpretation Comme nts T-helper cells (CD4) as perc ent of blood lymphocytes (test code = 8123-2) 37.8 % 30.8-58.5 Count Includes [facility] HospitalT-helper cells (CD4) [id number] 11:10:00* Test Item Value Reference Range Interpretation Comme nts T-helper cells (CD4) count ( test code = 93334-5) 605 /UL 359-1519 Count Includes [facility] HospitalT-suppressor cells (CD8) as percent of blood lymphocytes 2019-11-02 11:10:00* Test Item Value Reference Range Interpretation Comme nts T-suppressor cells (CD8) as percent of blood lymphocytes (test code = 3517) 46.6 % 12.0-35.5 H Count Includes [facility] Hospitalabsolute [id number] 11:10:00* Test Item Value Reference Range Interpretation Comme nts absolute CD8 (test code = 45461) 746 (unknown unit) 109-897 Count Includes [facility] Hospitalrapid plasma reagin antibody, [id number] 11:10:00* Test Item Value Reference Range Interpretation Comme nts rapid plasma reagin antibody, serum (test code = 5291-0) 1:2 See_Comment H [Automated messa ge] The system which generated this result transmitted reference range: NonRea<1:1. The reference range was not used to interpret this result as normal/abnormal. Count Includes [facility] HospitalHIV-1RNA, serum, by PCR, [id number] 11:10:00 * Test Item Value Reference Range Interpretation Comme [facility] HIV-1RNA, serum, by PCR, paula ntitative (test code = 15060) 500 /mL [facility] low density jmjnsexerifc0956-62-06 11:10:00* Test Item Value Reference Range Interpretation Comme nts very low density lipoprotein s (test code = 2091-7) 54 mg/dL 5-40 H Count Includes [facility] Hospitalalanine aminotransferase (SGPT), ajqin3220-55-01 11:10:00 * Test Item Value Reference Range Interpretation Comme nts alanine aminotransferase (SG PT), serum (test code = 1742-6) 63 1/L 0-44 H Count Includes [facility] Hospitalaspartate aminotransferase (SGOT), psyja4541-71-14 11:10:00* Test Item Value Reference Range Interpretation Comme nts aspartate aminotransferase ( SGOT), serum (test code = 1920-8) 37 1/L 0-40 Count Includes [facility] Hospitalalkaline phosphatase, qbhet5630-06-03 11:10:00* Test Item Value Reference Range Interpretation Comme nts alkaline phosphatase, serum (test code = 1783-0) 80 1/L 39-117 Count Includes [facility] Hospitalbilirubin, serum, [id number] 11:10:00* Test Item Value Reference Range Interpretation Comme nts bilirubin, serum, total (janett t code = 1975-2) 0.6 mg/dL 0.0-1.2 [facility] Healthalbumin/globulin ratio, [id number] 11:10:00* Test Item Value Reference Range Interpretation Comme nts albumin/globulin ratio, serum (test code = 1759-0) 1.2 (unknown unit) 1.2-2.2 [facility] Healthglobulin, [id number] 11:10:00* Test Item Value Reference Range Interpretation Comme nts globulin, serum (test code = 2336-6) 3.7 (unknown unit) 1.5-4.5 [facility] Healthalbumin, [id number] 11:10:00* Test Item Value Reference Range Interpretation Comme nts albumin, serum (test code = 1751-7) 4.3 g/dL 3.5-5.5 Count Includes [facility] Hospitalprotein, total, [id number] 11:10:00* Test Item Value Reference Range Interpretation Comme nts protein, total, serum (test code = 2885-2) 8.0 g/dL 6.0-8.5 Count Includes [facility] Hospitalcalcium, [id number] 11:10:00* Test Item Value Reference Range Interpretation Comme nts calcium, serum (test code = 2000-8) 8.8 mg/dL 8.7-10.2 Count Includes [facility] Hospitalcarbon dioxide, venous rzknk8612-14-11 11:10:00* Test Item Value Reference Range Interpretation Comme nts carbon dioxide, venous blood (test code = 2027-1) 20 mmol/L 20-29 [facility] Healthchloride, [id number] 11:10:00* Test Item Value Reference Range Interpretation Comme nts chloride, serum (test code = 2075-0) 100 mmol/L 96-106 [facility] Healthpotassium, [id number] 11:10:00* Test Item Value Reference Range Interpretation Comme nts potassium, serum (test code = 2823-3) 4.0 mmol/L 3.5-5.2 Count Includes [facility] Hospitalsodium, [id number] 11:10:00* Test Item Value Reference Range Interpretation Comme nts sodium, serum (test code = 2951-2) 134 mmol/L 134-144 Count Includes [facility] Hospitalurea nitrogen/creatinine ratio, ohdkc8078-01-19 11:10:00 * Test Item Value Reference Range Interpretation Comme nts urea nitrogen/creatinine ratio, serum (test code = 3097-3) 12 (unknown unit) 9-20 [facility] HealtheGFR if Tklignci5046-04-11 11:10:00* Test Item Value Reference Range Interpretation Comme nts eGFR if (test code = 42608-1) 101 mL/min/{1.73 m2} >59 Count Includes [facility] HospitalEstimated Glomerular Filtration Rate (calc)2019-11-02 11:10:00* Test Item Value Reference Range Interpretation Comme nts Estimated Glomerular Filtration Rate (calc) (test code = 44681-8) 88 mL/min/{1.73 m2} >59 Count Includes [facility] Hospitalcreatinine, jpord2531-00-22 11:10:00* Test Item Value Reference Range Interpretation Comme nts creatinine, serum (test code = 2160-0) 1.05 mg/dL 0.76-1.27 Count Includes [facility] Hospitalurea nitrogen, [id number] 11:10:00* Test Item Value Reference Range Interpretation Comme nts urea nitrogen, blood (test c ode = 3094-0) 13 mg/dL 6-24 Count Includes [facility] Hospitalblood glucose, owmyhf0626-29-41 11:10:00* Test Item Value Reference Range Interpretation Comme nts blood glucose, random (test code = 2339-0) 327 mg/dL 65-99 H Count Includes [facility] Hospitalimmature granulocytes, percentage of total cells, blood 2019-11-02 11:10:00* Test Item Value Reference Range Interpretation Comme nts immature granulocytes, perce ntage of total cells, blood (test code = 82638-8) 0 % Count Includes [facility] Hospitalbasophil count, [id number] 11:10:00* Test Item Value Reference Range Interpretation Comme nts basophil count, absolute (te st code = 37925-1) 0.0 x10E3/uL 0.0-0.2 Count Includes [facility] HospitalEosinophil Absolute Ptvpl4111-31-73 11:10:00* Test Item Value Reference Range Interpretation Comme nts Eosinophil Absolute Count (t est code = 65109-0) 0.1 X10E3/UL 0.0-0.4 Count Includes [facility] Hospitalmonocyte count, blood, qdzdhulmi1550-13-06 11:10:00* Test Item Value Reference Range Interpretation Comme nts monocyte count, blood, autom ated (test code = 742-7) 0.2 X10E3/UL 0.1-0.9 Count Includes [facility] Hospitallymphocyte count, blood, aroqhaxqx9623-41-29 11:10:00* Test Item Value Reference Range Interpretation Comme nts lymphocyte count, blood, automated (test code = 731-0) 1.6 X10E3/UL 0.7-3.1 Count Includes [facility] HospitalAbsolute Cvgqxwenhdz7498-86-26 11:10:00* Test Item Value Reference Range Interpretation Comme nts Absolute Neutrophils (test c ode = 83827-6) 3.9 X10E3/UL 1.4-7.0 Count Includes [facility] Hospitalbasophils as percent of blood rsktcmptmr6405-82-09 11:10:00* Test Item Value Reference Range Interpretation Comme nts basophils as percent of bloo d leukocytes (test code = 707-0) 0 % Count Includes [facility] Hospitaleosinophils as percent of blood hymfcpngfd4234-98-14 11:10:00* Test Item Value Reference Range Interpretation Comme nts eosinophils as percent of bl ood leukocytes (test code = 713-8) 2 % [facility] Healthmonocytes as percent of blood nqanqoojqp1633-42-69 11:10:00* Test Item Value Reference Range Interpretation Comme nts monocytes as percent of bloo d leukocytes (test code = 5905-5) 4 % Count Includes [facility] Hospitallymphocytes as percent of blood zwxfslikmk1877-56-53 11:10:00* Test Item Value Reference Range Interpretation Comme nts lymphocytes as percent of bl ood leukocytes (test code = 736-9) 28 % Count Includes [facility] Hospitalneutrophils as percent of blood tuxsgxkeqa4389-65-21 11:10:00* Test Item Value Reference Range Interpretation Comme nts neutrophils as percent of bl ood leukocytes (test code = 770-8) 66 % Count Includes [facility] Hospitalplatelet iypio4263-23-64 11:10:00* Test Item Value Reference Range Interpretation Comme [facility] platelet count (test code = 777-3) 177 X10E3/UL 150-450 Count Includes [facility] Hospitalred blood cell distribution uniwd7430-23-81 11:10:00* Test Item Value Reference Range Interpretation Comme [facility] red blood cell distribution width (test code = 788-0) 14.7 % 12.3-15.4 [facility] corpuscular hemoglobin concentration, [id number] 11:10:00* Test Item Value Reference Range Interpretation Comme [facility] mean corpuscular hemoglobin concentration, RBC (test code = 786-4) 34.5 G/DL 31.5-35.7 [facility] corpuscular hemoglobin, [id number] 11:10:00* Test Item Value Reference Range Interpretation Comme [facility] mean corpuscular hemoglobin, RBC (test code = 785-6) 29.3 pg 26.6-33.0 [facility] corpuscular volume, [id number] 11:10:00* Test Item Value Reference Range Interpretation Comme [facility] mean corpuscular volume, RBC (test code = 787-2) 85 fL 79-97 Count Includes [facility] Hospitalhematocrit, yiski8813-24-99 11:10:00* Test Item Value Reference Range Interpretation Comme [facility] hematocrit, blood (test code = 4544-3) 44.0 % 37.5-51. 0 Count Includes [facility] Hospitalhemoglobin, pzmmp1359-83-10 11:10:00* Test Item Value Reference Range Interpretation Comme [facility] hemoglobin, blood (test code = 718-7) 15.2 g/dL 13.0-17.7 Count Includes [facility] Hospitalerythrocyte (RBC) wmdrn5894-44-07 11:10:00* Test Item Value Reference Range Interpretation Comme [facility] erythrocyte (RBC) count (janett t code = 789-8) 5.19 X10E6/UL 4.14-5.80 Count Includes [facility] Hospitalleukocyte count, zgoda0649-55-30 11:10:00* Test Item Value Reference Range Interpretation Comme [facility] leukocyte count, blood (test code = 6690-2) 5.9 X10E3/UL 3.4-10.8 Count Includes [facility] HospitalCD4/CD8 olefq3136-38-03 11:10:00* Test Item Value Reference Range Interpretation Comme [facility] CD4/CD8 ratio (test code = 23821) 0.81 (unknown unit) 0.92-3.72 L Count Includes [facility] HospitalLDL cholesterol, [id number] 16:37:00* Test Item Value Reference Range Interpretation Comme [facility] LDL cholesterol, serum (test code = 2089-1) 62 mg/dL 0-99 Count Includes [facility] HospitalHDL cholesterol, xvemt4643-01-34 16:37:00* Test Item Value Reference Range Interpretation Comme [facility] HDL cholesterol, serum (test code = 2085-9) 27 mg/dL >39 L Count Includes [facility] Hospitaltriglyceride, serum, rtmfhpu2682-80-17 16:37:00* Test Item Value Reference Range Interpretation Comme [facility] triglyceride, serum, fasting (test code = 2571-8) 331 mg/dL 0-149 H Count Includes [facility] Hospitalcholesterol, ekfbp6743-03-69 16:37:00* Test Item Value Reference Range Interpretation Comme [facility] cholesterol, serum (test cod e = 2093-3) 155 mg/dL 100-199 [facility] sevjchhteveq0843-98-97 16:37:00* Test Item Value Reference Range Interpretation Comme nts very low density lipoprotein s (test code = 2091-7) 66 mg/dL 5-40 H Count Includes [facility] HospitalTreponema pallidum antibodies, by particle agglutination 2019-04-26 16:26:00* Test Item Value Reference Range Interpretation Comme nts Treponema pallidum antibodie s, by particle agglutination (test code = 17974-5) Positive Negative A Count Includes [facility] Hospitalhemoglobin A1C, blood, as % of total ddwbfikxuq4269-58-10 16:26:00* Test Item Value Reference Range Interpretation Comme nts hemoglobin A1C, blood, as % of total hemoglobin (test code = 4548-4) 10.3 % 4.8-5.6 H Count Includes [facility] HospitalT-helper cells (CD4) as percent of blood lymphocytes 2019-04-26 16:26:00* Test Item Value Reference Range Interpretation Comme nts T-helper cells (CD4) as perc ent of blood lymphocytes (test code = 8123-2) 44.1 % 30.8-58.5 Count Includes [facility] HospitalT-helper cells (CD4) kybon3182-28-29 16:26:00* Test Item Value Reference Range Interpretation Comme nts T-helper cells (CD4) count ( test code = 41559-3) 573 /UL 359-1519 Count Includes [facility] Hospitalhepatitis C antibody, [id number] 16:26:00* Test Item Value Reference Range Interpretation Comme nts hepatitis C antibody, serum (test code = 5199-5) <0.1 0.0-0.9 Count Includes [facility] Hospitalrapid plasma reagin antibody, qzxhf4246-46-09 16:26:00* Test Item Value Reference Range Interpretation Comme nts rapid plasma reagin antibody, serum (test code = 5291-0) 1:1 See_Comment H [Automated Crowdparka ge] The system which generated this result transmitted reference range: NonRea<1:1. The reference range was not used to interpret this result as normal/abnormal. Count Includes [facility] HospitalHIV-1RNA, serum, by PCR, ghbezystsqcm3205-22-09 16:26:00 * Test Item Value Reference Range Interpretation Comme nts HIV-1RNA, serum, by PCR, paula ntitative (test code = 55290) 30 /mL Count Includes [facility] HospitalHepatitis B virus DNA, by Polymerase Chain Reaction 2019-04-26 16:26:00* Test Item Value Reference Range Interpretation Comme nts Hepatitis B virus DNA, by Polymerase Chain Reaction (test code = 55100) HBV DNA not detected Count Includes [facility] Hospitalalanine aminotransferase (SGPT), yfahs8380-76-74 16:26:00 * Test Item Value Reference Range Interpretation Comme nts alanine aminotransferase (SG PT), serum (test code = 1742-6) 47 1/L 0-44 H Count Includes [facility] Hospitalaspartate aminotransferase (SGOT), hmesf1687-98-60 16:26:00* Test Item Value Reference Range Interpretation Comme nts aspartate aminotransferase ( SGOT), serum (test code = 1920-8) 34 1/L 0-40 Count Includes [facility] Hospitalalkaline phosphatase, kttfm9948-79-17 16:26:00* Test Item Value Reference Range Interpretation Comme nts alkaline phosphatase, serum (test code = 1783-0) 101 1/L 39-117 Count Includes [facility] Hospitalbilirubin, serum, lflkk3589-84-15 16:26:00* Test Item Value Reference Range Interpretation Comme nts bilirubin, serum, total (janett t code = 1975-2) 0.3 mg/dL 0.0-1.2 [facility] Healthalbumin/globulin ratio, oaifg7634-30-12 16:26:00* Test Item Value Reference Range Interpretation Comme nts albumin/globulin ratio, serum (test code = 1759-0) 1.6 (unknown unit) 1.2-2.2 [facility] Healthglobulin, [id number] 16:26:00* Test Item Value Reference Range Interpretation Comme nts globulin, serum (test code = 2336-6) 2.8 (unknown unit) 1.5-4.5 [facility] Healthalbumin, jdikf5221-89-44 16:26:00* Test Item Value Reference Range Interpretation Comme nts albumin, serum (test code = 1751-7) 4.4 g/dL 3.5-5.5 [facility] Healthprotein, total, famrq3680-40-87 16:26:00* Test Item Value Reference Range Interpretation Comme nts protein, total, serum (test code = 2885-2) 7.2 g/dL 6.0-8.5 [facility] Healthcalcium, eyjvj2699-54-23 16:26:00* Test Item Value Reference Range Interpretation Comme nts calcium, serum (test code = 2000-8) 8.9 mg/dL 8.7-10.2 Count Includes [facility] Hospitalcarbon dioxide, venous wnmjj6565-79-76 16:26:00* Test Item Value Reference Range Interpretation Comme nts carbon dioxide, venous blood (test code = 2027-1) 19 mmol/L 20-29 L [facility] Healthchloride, lgngd6643-02-51 16:26:00* Test Item Value Reference Range Interpretation Comme nts chloride, serum (test code = 2075-0) 103 mmol/L 96-106 [facility] Healthpotassium, qcxoi6625-19-64 16:26:00* Test Item Value Reference Range Interpretation Comme nts potassium, serum (test code = 2823-3) 4.5 mmol/L 3.5-5.2 Count Includes [facility] Hospitalsodium, xkuqe4852-43-18 16:26:00* Test Item Value Reference Range Interpretation Comme nts sodium, serum (test code = 2951-2) 139 mmol/L 134-144 Count Includes [facility] Hospitalurea nitrogen/creatinine ratio, fzcdz6443-16-81 16:26:00 * Test Item Value Reference Range Interpretation Comme nts urea nitrogen/creatinine ratio, serum (test code = 3097-3) 12 (unknown unit) 9-20 [facility] HealtheGFR if Eiijwnym0121-63-35 16:26:00* Test Item Value Reference Range Interpretation Comme nts eGFR if (test code = 06224-6) 123 mL/min/{1.73 m2} >59 Count Includes [facility] HospitalEstimated Glomerular Filtration Rate (calc)2019-04-26 16:26:00* Test Item Value Reference Range Interpretation Comme nts Estimated Glomerular Filtration Rate (calc) (test code = 10349-8) 106 mL/min/{1.73 m2} >59 [facility] Healthcreatinine, payfy3593-98-11 16:26:00* Test Item Value Reference Range Interpretation Comme nts creatinine, serum (test code = 2160-0) 0.90 mg/dL 0.76-1.27 Count Includes [facility] Hospitalurea nitrogen, gfzri2526-39-22 16:26:00* Test Item Value Reference Range Interpretation Comme nts urea nitrogen, blood (test c ode = 3094-0) 11 mg/dL 6-24 Count Includes [facility] Hospitalblood glucose, zlaqcr8809-80-11 16:26:00* Test Item Value Reference Range Interpretation Comme nts blood glucose, random (test code = 2339-0) 325 mg/dL 65-99 H Count Includes [facility] Hospitalimmature granulocytes, percentage of total cells, blood 2019-04-26 16:26:00* Test Item Value Reference Range Interpretation Comme nts immature granulocytes, perce ntage of total cells, blood (test code = 95904-4) 1 % Count Includes [facility] Hospitalbasophil count, yiocqvtb9995-52-25 16:26:00* Test Item Value Reference Range Interpretation Comme nts basophil count, absolute (te st code = 24843-8) 0.0 x10E3/uL 0.0-0.2 Count Includes [facility] HospitalEosinophil Absolute Rznpl0199-99-35 16:26:00* Test Item Value Reference Range Interpretation Comme nts Eosinophil Absolute Count (t est code = 29179-2) 0.1 X10E3/UL 0.0-0.4 Count Includes [facility] Hospitalmonocyte count, blood, kiyinqnrl9397-20-09 16:26:00* Test Item Value Reference Range Interpretation Comme nts monocyte count, blood, autom ated (test code = 742-7) 0.5 X10E3/UL 0.1-0.9 Count Includes [facility] Hospitallymphocyte count, blood, fwekuddfl6127-31-87 16:26:00* Test Item Value Reference Range Interpretation Comme nts lymphocyte count, blood, automated (test code = 731-0) 1.3 X10E3/UL 0.7-3.1 Count Includes [facility] HospitalAbsolute Pyrgdjautwi3827-68-43 16:26:00* Test Item Value Reference Range Interpretation Comme nts Absolute Neutrophils (test c ode = 53579-6) 6.9 X10E3/UL 1.4-7.0 Count Includes [facility] Hospitalbasophils as percent of blood sopzluseae8647-83-62 16:26:00* Test Item Value Reference Range Interpretation Comme nts basophils as percent of bloo d leukocytes (test code = 707-0) 0 % Count Includes [facility] Hospitaleosinophils as percent of blood hlcxgyvcii6821-51-83 16:26:00* Test Item Value Reference Range Interpretation Comme nts eosinophils as percent of bl ood leukocytes (test code = 713-8) 1 % [facility] Healthmonocytes as percent of blood lazdnohqnz1269-05-63 16:26:00* Test Item Value Reference Range Interpretation Comme nts monocytes as percent of bloo d leukocytes (test code = 5905-5) 5 % Count Includes [facility] Hospitallymphocytes as percent of blood jqeuokayff6284-30-06 16:26:00* Test Item Value Reference Range Interpretation Comme nts lymphocytes as percent of bl ood leukocytes (test code = 736-9) 15 % Count Includes [facility] Hospitalneutrophils as percent of blood cvhjdswwle7879-14-12 16:26:00* Test Item Value Reference Range Interpretation Comme nts neutrophils as percent of bl ood leukocytes (test code = 770-8) 78 % Count Includes [facility] Hospitalplatelet nmuvk2082-89-69 16:26:00* Test Item Value Reference Range Interpretation Comme [facility] platelet count (test code = 777-3) 267 X10E3/UL 150-450 Count Includes [facility] Hospitalred blood cell distribution emexx1246-06-92 16:26:00* Test Item Value Reference Range Interpretation Comme [facility] red blood cell distribution width (test code = 788-0) 13.2 % 12.3-15.4 [facility] corpuscular hemoglobin concentration, [id number] 16:26:00* Test Item Value Reference Range Interpretation Comme [facility] mean corpuscular hemoglobin concentration, RBC (test code = 786-4) 34.7 G/DL 31.5-35.7 [facility] corpuscular hemoglobin, [id number] 16:26:00* Test Item Value Reference Range Interpretation Comme [facility] mean corpuscular hemoglobin, RBC (test code = 785-6) 30.6 pg 26.6-33.0 [facility] corpuscular volume, [id number] 16:26:00* Test Item Value Reference Range Interpretation Comme [facility] mean corpuscular volume, RBC (test code = 787-2) 88 fL 79-97 [facility]oc[facility], [id number] 16:26:00* Test Item Value Reference Range Interpretation Comme [facility] hematocrit, blood (test code = 4544-3) 48.7 % 37.5-51. 0 Count Includes [facility] Hospitalhemoglobin, [id number] 16:26:00* Test Item Value Reference Range Interpretation Comme [facility] hemoglobin, blood (test code = 718-7) 16.9 g/dL 13.0-17.7 Count Includes [facility] Hospitalerythrocyte (RBC) [id number] 16:26:00* Test Item Value Reference Range Interpretation Comme [facility] erythrocyte (RBC) count (janett t code = 789-8) 5.52 X10E6/UL 4.14-5.80 Count Includes [facility] Hospitalleukocyte count, [id number] 16:26:00* Test Item Value [facility], blood (test code = 6690-2) 8.9 X10E3/UL 3.4-10.8 Count Includes [facility] HospitalCD4/CD8 [id number] 16:26:00* Test Item Value Reference Range Interpretation [facility] CD4/CD8 ratio (test code = 73749) 1.45 (unknown unit) 0.92-3.72 Count Includes [facility] HospitalT-suppressor cells (CD8) as percent of blood lymphocytes 2019-04-26 16:26:00* Test Item Value Reference [facility]ation [facility] T-suppressor cells (CD8) as percent of blood lymphocytes (test code = 3517) 30.4 % 12.0-35.5 Count Includes [facility] Hospitalabsolute [id number] 16:26:00* Test Item Value Reference Range Interpretation [facility] absolute CD8 (test code = 47560) 395 (unknown unit) 109-897 Count Includes [facility] HospitalHIV-1 RNA (log 10)2018-10-25 10:41:00* Test Item Value Reference Range Interpretation [facility]-1 RNA (log 10) (test code = 24135) <1.30 DETECTED Log copies/mL NOT DETECTED A Count Includes [facility] HospitalHIV-1RNA, serum, by PCR, eskljsgcqsra6623-75-80 10:41:00 * Test Item Value Reference Range Interpretation Comme [facility] HIV-1RNA, serum, by PCR, quantitative (test code = 25141) <20 DETECTED copies/mL NOT DETECTED A Count Includes [facility] HospitalTreponema pallidum Ab, [id number] 10:40:00* Test Item Value Reference Range Interpretation Comme nts Treponema pallidum Ab, serum (test code = 77355-0) REACTIVE NON-REACTIVE A Count Includes [facility] HospitalT-helper cells (CD4) [id number] 10:40:00* Test Item Value Reference Range Interpretation Comme nts T-helper cells (CD4) count ( test code = 67335-4) 663 CELLS/UL 490-1740 N Count Includes [facility] HospitalT-helper cells (CD4) as percent of blood lymphocytes 2018-10-25 10:40:00* Test Item Value Reference Range Interpretation Comme nts T-helper cells (CD4) as perc ent of blood lymphocytes (test code = 8123-2) 44 % 30-61 N Count Includes [facility] HospitalLDL cholesterol, [id number] 10:40:00* Test Item Value Reference Range Interpretation Comme [facility] LDL cholesterol, serum (test code = 2089-1) LDL cholesterol not calculated. Triglyceride le... mg/dL (calc) Count Includes [facility] Hospitaltriglyceride, serum, [id number] 10:40:00* Test Item Value Reference Range Interpretation Comme nts triglyceride, serum, fasting (test code = 2571-8) 407 mg/dL <150 H Count Includes [facility] HospitalHDL cholesterol, [id number] 10:40:00* Test Item Value Reference Range Interpretation Comme [facility] HDL cholesterol, serum (test code = 2085-9) 24 mg/dL >40 L Count Includes [facility] Hospitalcholesterol, [id number] 10:40:00* Test Item Value Reference Range Interpretation Comme nts cholesterol, serum (test cod e = 2093-3) 178 mg/dL <200 N Count Includes [facility] Hospitalrapid plasma reagin antibody, [id number] 10:40:00* Test Item Value Reference Range Interpretation Comme nts rapid plasma reagin antibody , serum (test code = 5291-0) REACTIVE NON-REACTIVE A Count Includes [facility] Hospitalbasophils as percent of blood yjkzbwuijc2546-63-59 10:40:00* Test Item Value Reference Range Interpretation Comme nts basophils as percent of bloo d leukocytes (test code = 707-0) 0.4 % N Count Includes [facility] Hospitaleosinophils as percent of blood wvzsuaglai7398-74-12 10:40:00* Test Item Value Reference Range Interpretation Comme nts eosinophils as percent of bl ood leukocytes (test code = 714-6) 1.2 % N Count Includes [facility] Hospitalmonocytes as percent of blood mmopspfack4698-33-38 10:40:00* Test Item Value Reference Range Interpretation Comme nts monocytes as percent of bloo d leukocytes (test code = 5905-5) 4.2 % N Count Includes [facility] Hospitallymphocytes as percent of blood isdyeddnkl1316-99-29 10:40:00* Test Item Value Reference Range Interpretation Comme nts lymphocytes as percent of bl ood leukocytes (test code = 736-9) 18.9 % N Count Includes [facility] Hospitalneutrophils as percent of blood wipwdlrsyf8433-09-89 10:40:00* Test Item Value Reference Range Interpretation Comme nts neutrophils as percent of bl ood leukocytes (test code = 770-8) 75.3 % N Count Includes [facility] Hospitalbasophil count, [id number] 10:40:00* Test Item Value Reference Range Interpretation Comme nts basophil count, absolute (te st code = 03426-0) 33 cells/uL 0-200 N Count Includes [facility] HospitalAbsolute Eosinophil [id number] 10:40:00* Test Item Value Reference Range Interpretation Comme nts Absolute Eosinophil count (t est code = 95922-0) 100 cells/mcL 15-500 N Count Includes [facility] HospitalAbsolute Monocyte [id number] 10:40:00* Test Item Value Reference Range Interpretation Comme nts Absolute Monocyte count (janett t code = 25930-0) 349 cells/mcL 200-950 N Count Includes [facility] HospitalAbsolute Neutrophil dycri2944-93-43 10:40:00* Test Item Value Reference Range Interpretation Comme nts Absolute Neutrophil count (test code = 72065-3) 6250 cells/mcL 0478-5923 N Count Includes [facility] Hospitalmean platelet [id number] 10:40:00* Test Item Value Reference Range Interpretation Comme nts mean platelet volume (test c ode = 776-5) 11.2 fL 7.5-12.5 N Count Includes [facility] Hospitalplatelet [id number] 10:40:00* Test Item Value Reference Range Interpretation Comme [facility] platelet count (test code = 777-3) 230 THOUSAND/UL 140-400 N Count Includes [facility] Hospitalred blood cell distribution [id number] 10:40:00* Test Item Value Reference Range Interpretation Comme [facility] red blood cell distribution width (test code = 788-0) 13.1 % 11.0-15.0 N [facility] corpuscular hemoglobin concentration, [id number] 10:40:00* Test Item Value Reference Range Interpretation Comme [facility] mean corpuscular hemoglobin concentration, RBC (test code = 786-4) 35.4 G/DL 32.0-36.0 N [facility] corpuscular hemoglobin, [id number] 10:40:00* Test Item Value Reference Range Interpretation Comme [facility] mean corpuscular hemoglobin, RBC (test code = 785-6) 31.2 pg 27.0-33.0 N [facility] corpuscular volume, [id number] 10:40:00* Test Item Value Reference Range Interpretation Comme [facility] mean corpuscular volume, RBC (test code = 787-2) 88.1 fL 80.0-100.0 N Count Includes [facility] Hospitalhematocrit, [id number] 10:40:00* Test Item Value Reference Range Interpretation Comme [facility] hematocrit, blood (test code = 4544-3) 45.7 % 38.5-50. 0 N Count Includes [facility] Hospitalhemoglobin, [id number] 10:40:00* Test Item Value Reference Range Interpretation Comme [facility] hemoglobin, blood (test code = 718-7) 16.2 g/dL 13.2-17.1 N Count Includes [facility] Hospitalerythrocyte (RBC) [id number] 10:40:00* Test Item Value Reference Range Interpretation Comme [facility] erythrocyte (RBC) count (janett t code = 789-8) 5.19 MILLION/UL 4.20-5.80 N Count Includes [facility] Hospitalleukocyte count, [id number] 10:40:00* Test Item Value Reference Range Interpretation Comme nts leukocyte count, blood (test code = 6690-2) 8.3 THOUSAND/UL 3.8-10.8 N Count Includes [facility] Hospitallymphocytes, psegwrak0942-08-38 10:40:00* Test Item Value Reference Range Interpretation Comme nts lymphocytes, absolute (test code = 55075-6) 1569 CELLS/UL 850-3900 N Count Includes [facility] HospitalCD4/CD8 [id number] 10:40:00* Test Item Value Reference Range Interpretation Comme nts CD4/CD8 ratio (test code = 25692) 1.52 (unknown unit) 0.86-5.00 N Count Includes [facility] Hospitalabsolute [id number] 10:40:00* Test Item Value Reference Range Interpretation Comme nts absolute CD8 (test code = 72130) 436 (unknown unit) 180-1170 N Count Includes [facility] HospitalT-suppressor cells (CD8) as percent of blood lymphocytes 2018-10-25 10:40:00* Test Item Value Reference Range Interpretation Comme nts T-suppressor cells (CD8) as percent of blood lymphocytes (test code = 3517) 29 % 12-42 N Count Includes [facility] Hospitalalanine aminotransferase (SGPT), [id number] 10:40:00 * Test Item Value Reference Range Interpretation Comme nts alanine aminotransferase (SG PT), serum (test code = 1742-6) 79 1/L 9-46 H Count Includes [facility] Hospitalaspartate aminotransferase (SGOT), zvbkg3239-31-77 10:40:00* Test Item Value Reference Range Interpretation Comme nts aspartate aminotransferase ( SGOT), serum (test code = 1920-8) 51 1/L 10-40 H Count Includes [facility] Hospitalalkaline phosphatase, dapzt6565-33-96 10:40:00* Test Item Value Reference Range Interpretation Comme nts alkaline phosphatase, serum (test code = 1783-0) 87 1/L 40-115 N Count Includes [facility] Hospitalbilirubin, serum, dwdoo1456-64-14 10:40:00* Test Item Value Reference Range Interpretation Comme nts bilirubin, serum, total (janett t code = 1975-2) 0.7 mg/dL 0.2-1.2 N [facility], monxs9008-51-13 10:40:00* Test Item Value Reference Range Interpretation Comme nts albumin/globulin ratio, seru m (test code = 1759-0) 1.7 (calc) 1.0-2.5 N Count Includes [facility] Hospitalglobulins, serum, [id number] 10:40:00* Test Item Value Reference Range Interpretation Comme nts globulins, serum, total (janett t code = 2336-6) 2.6 G/DL (CALC) 1.9-3.7 N [facility] Healthalbumin, [id number] 10:40:00* Test Item Value Reference Range Interpretation Comme nts albumin, serum (test code = 1751-7) 4.4 g/dL 3.6-5.1 N [facility] Healthprotein, total, [id number] 10:40:00* Test Item Value Reference Range Interpretation Comme nts protein, total, serum (test code = 2885-2) 7.0 g/dL 6.1-8.1 N Count Includes [facility] Hospitalcalcium, [id number] 10:40:00* Test Item Value Reference Range Interpretation Comme nts calcium, serum (test code = 2000-8) 9.1 mg/dL 8.6-10.3 N Count Includes [facility] Hospitalcarbon dioxide, venous ximfv6915-80-04 10:40:00* Test Item Value Reference Range Interpretation Comme nts carbon dioxide, venous blood (test code = 2027-1) 24 mmol/L 20-32 N Count Includes [facility] Hospitalchloride, aifvw1729-26-07 10:40:00* Test Item Value Reference Range Interpretation Comme nts chloride, serum (test code = 2075-0) 105 mmol/L 98-110 N Count Includes [facility] Hospitalpotassium, rjuvt2588-87-16 10:40:00* Test Item Value Reference Range Interpretation Comme nts potassium, serum (test code = 2823-3) 3.9 mmol/L 3.5-5.3 N Count Includes [facility] Hospitalsodium, xglmo1120-71-58 10:40:00* Test Item Value Reference Range Interpretation Comme nts sodium, serum (test code = 2951-2) 139 mmol/L 135-146 N Count Includes [facility] Hospitalurea nitrogen/creatinine ratio, [id number] 10:40:00 * Test Item Value Reference Range Interpretation Comme nts urea nitrogen/creatinine ratio, serum (test code = 3097-3) NOT APPLICABLE (calc) 6- [facility] HealtheGFR if Awttxlba8787-26-15 10:40:00* Test Item Value Reference Range Interpretation Comme nts eGFR if (test code = 06762-8) 114 mL/min/{1.73 m2} See_Comment N [Automated message] The system which generated this result transmitted reference range: > OR = 60. The reference range was not used to interpret this result as normal/abnormal. Count Includes [facility] HospitalEstimated Glomerular Filtration Rate (calc)2018-10-25 10:40:00* Test Item Value Reference Range Interpretation Comme [facility] Estimated Glomerular Filtration Rate (calc) (test code = 86587-1) 98 mL/min/{1.73 m2} See_Comment N [Automated message] The system which generated this result transmitted reference range: > OR = 60. The reference range was not used to interpret this result as normal/abnormal. Count Includes [facility] Hospitalcreatinine, [id number] 10:40:00* Test Item Value Reference Range Interpretation Comme [facility] creatinine, serum (test code = 2160-0) 0.96 mg/dL 0.60-1.35 N Count Includes [facility] Hospitalurea nitrogen, ryohh6939-36-58 10:40:00* Test Item Value Reference Range Interpretation Comme nts urea nitrogen, blood (test c ode = 3094-0) 10 mg/dL 7-25 N Count Includes [facility] Hospitalblood glucose, gcitln9302-14-30 10:40:00* Test Item Value Reference Range Interpretation Comme [facility] blood glucose, random (test code = 2339-0) 217 mg/dL 65-99 H Count Includes [facility] Hospitalcholesterol, non-HDL, gmhfp4567-61-30 10:40:00* Test Item Value Reference Range Interpretation Comme nts cholesterol, non-HDL, total (test code = 37478) 154 MG/DL (CALC) <130 H Count Includes [facility] Hospitalcholesterol/HDL ratio, serum, [id number] 10:40:00 * Test Item Value Reference Range Interpretation Comme nts cholesterol/HDL ratio, serum , percent (test code = 2404) 7.4 (calc) <5.0 H Count Includes [facility] HospitalQuantiferon Gold TB blood test for tuberculosis screening 2018-05-22 09:03:00* Test Item Value Reference Range Interpretation Comme nts Quantiferon Gold TB blood te st for tuberculosis screening (test code = 13869-5) Negative Negative Count Includes [facility] HospitalHIV-1RNA, serum, by PCR, ymwszmnypkhv8261-17-65 08:46:00 * Test Item Value Reference Range Interpretation Comme nts HIV-1RNA, serum, by PCR, quantitative (test code = 87060) <20 copies/mL Count Includes [facility] HospitalTreponema pallidum antibodies, by particle agglutination 2018-05-21 08:44:00* Test Item Value Reference Range Interpretation Comme nts Treponema pallidum antibodie s, by particle agglutination (test code = 04308-3) Positive Negative A Count Includes [facility] Hospitalhemoglobin A1C, blood, as % of total pqhguhprvq8720-44-06 08:44:00* Test Item Value Reference Range Interpretation Comme nts hemoglobin A1C, blood, as % of total hemoglobin (test code = 4548-4) 6.4 % 4.8-5.6 H Count Includes [facility] HospitalLDL cholesterol, ornym6702-52-00 08:44:00* Test Item Value Reference Range Interpretation Comme nts LDL cholesterol, serum (test code = 2089-1) TRIGHI mg/dL 0-99 Count Includes [facility] HospitalHDL cholesterol, becvz9026-74-75 08:44:00* Test Item Value Reference Range Interpretation Comme nts HDL cholesterol, serum (test code = 2085-9) 22 mg/dL >39 L Count Includes [facility] Hospitaltriglyceride, serum, [id number] 08:44:00* Test Item Value Reference Range Interpretation Comme nts triglyceride, serum, fasting (test code = 2571-8) 401 mg/dL 0-149 H Count Includes [facility] Hospitalcholesterol, [id number] 08:44:00* Test Item Value Reference Range Interpretation Comme nts cholesterol, serum (test cod e = 2093-3) 159 mg/dL 100-199 Count Includes [facility] HospitalT-helper cells (CD4) as percent of blood lymphocytes 2018-05-21 08:44:00* Test Item Value Reference Range Interpretation Comme nts T-helper cells (CD4) as perc ent of blood lymphocytes (test code = 8123-2) 47.1 % 30.8-58.5 Count Includes [facility] HospitalT-helper cells (CD4) cuhjt5050-61-67 08:44:00* Test Item Value Reference Range Interpretation Comme nts T-helper cells (CD4) count ( test code = 78578-2) 1130 /UL 359-1519 Count Includes [facility] Hospitalrapid plasma reagin antibody, [id number] 08:44:00* Test Item Value Reference Range Interpretation Comme nts rapid plasma reagin antibody, serum (test code = 5291-0) 1:2 See_Comment H [Automated messa ge] The system which generated this result transmitted reference range: NonRea<1:1. The reference range was not used to interpret this result as normal/abnormal. Count Includes [facility] HospitalHepatitis B virus DNA, by Polymerase Chain Reaction 2018-05-21 08:44:00* Test Item Value Reference Range Interpretation Comme [facility] Hepatitis B virus DNA, by Polymerase Chain Reaction (test code = 47545) HBV DNA not detected [facility] low density laalvjaavhub7037-78-97 08:44:00* Test Item Value Reference Range Interpretation Comme [facility] very low density lipoprotein s (test code = 2091-7) VLDLCH mg/dL 5-40 Count Includes [facility] Hospitalalanine aminotransferase (SGPT), haxuz7019-32-98 08:44:00 * Test Item Value Reference Range Interpretation Comme [facility] alanine aminotransferase (SG PT), serum (test code = 1742-6) 121 1/L 0-44 H Count Includes [facility] Hospitalaspartate aminotransferase (SGOT), zuwbd9858-30-18 08:44:00* Test Item Value Reference Range Interpretation Comme nts aspartate aminotransferase ( SGOT), serum (test code = 1920-8) 41 1/L 0-40 H Count Includes [facility] Hospitalalkaline phosphatase, [id number] 08:44:00* Test Item Value Reference Range Interpretation Comme nts alkaline phosphatase, serum (test code = 1783-0) 85 1/L 39-117 Count Includes [facility] Hospitalbilirubin, serum, ivaif3692-29-97 08:44:00* Test Item Value Reference Range Interpretation Comme nts bilirubin, serum, total (janett t code = 1975-2) 0.3 mg/dL 0.0-1.2 [facility] Healthalbumin/globulin ratio, jycpw9728-51-17 08:44:00* Test Item Value Reference Range Interpretation Comme nts albumin/globulin ratio, serum (test code = 1759-0) 1.6 (unknown unit) 1.2-2.2 [facility] Healthglobulin, [id number] 08:44:00* Test Item Value Reference Range Interpretation Comme nts globulin, serum (test code = 2336-6) 2.8 (unknown unit) 1.5-4.5 [facility] Healthalbumin, [id number] 08:44:00* Test Item Value Reference Range Interpretation Comme nts albumin, serum (test code = 1751-7) 4.5 g/dL 3.5-5.5 [facility] Healthprotein, total, [id number] 08:44:00* Test Item Value Reference Range Interpretation Comme nts protein, total, serum (test code = 2885-2) 7.3 g/dL 6.0-8.5 [facility] Healthcalcium, mrxay3213-31-86 08:44:00* Test Item Value Reference Range Interpretation Comme nts calcium, serum (test code = 2000-8) 9.3 mg/dL 8.7-10.2 Count Includes [facility] Hospitalcarbon dioxide, venous tbcag2641-96-12 08:44:00* Test Item Value Reference Range Interpretation Comme nts carbon dioxide, venous blood (test code = 2027-1) 21 mmol/L 20-29 [facility] Healthchloride, xfijs4846-87-62 08:44:00* Test Item Value Reference Range Interpretation Comme nts chloride, serum (test code = 2075-0) 102 mmol/L 96-106 [facility] Healthpotassium, [id number] 08:44:00* Test Item Value Reference Range Interpretation Comme nts potassium, serum (test code = 2823-3) 3.9 mmol/L 3.5-5.2 [facility] Healthsodium, jqsjd2536-91-72 08:44:00* Test Item Value Reference Range Interpretation Comme nts sodium, serum (test code = 2951-2) 141 mmol/L 134-144 Count Includes [facility] Hospitalurea nitrogen/creatinine ratio, jgfbd6145-33-55 08:44:00 * Test Item Value Reference Range Interpretation Comme nts urea nitrogen/creatinine ratio, serum (test code = 3097-3) 11 (unknown unit) 9-20 [facility] HealtheGFR if Fmylhzxy0224-99-89 08:44:00* Test Item Value Reference Range Interpretation Comme nts eGFR if (test code = 42509-7) 101 mL/min/{1.73 m2} >59 Count Includes [facility] HospitalEstimated Glomerular Filtration Rate (calc)2018-05-21 08:44:00* Test Item Value Reference Range Interpretation Comme nts Estimated Glomerular Filtration Rate (calc) (test code = 00187-4) 87 mL/min/{1.73 m2} >59 Count Includes [facility] Hospitalcreatinine, zdxil6689-02-48 08:44:00* Test Item Value Reference Range Interpretation Comme nts creatinine, serum (test code = 2160-0) 1.07 mg/dL 0.76-1.27 Count Includes [facility] Hospitalurea nitrogen, tdaqb3723-58-71 08:44:00* Test Item Value Reference Range Interpretation Comme nts urea nitrogen, blood (test c ode = 3094-0) 12 mg/dL 6-20 Count Includes [facility] Hospitalblood glucose, yjlrzu0875-68-23 08:44:00* Test Item Value Reference Range Interpretation Comme nts blood glucose, random (test code = 2339-0) 315 mg/dL 65-99 H Count Includes [facility] Hospitalimmature granulocytes, percentage of total cells, blood 2018-05-21 08:44:00* Test Item Value Reference Range Interpretation Comme nts immature granulocytes, perce ntage of total cells, blood (test code = 01155-5) 0 % Count Includes [facility] Hospitalbasophil count, xfexkhkt9193-64-31 08:44:00* Test Item Value Reference Range Interpretation Comme nts basophil count, absolute (te st code = 24266-0) 0.0 x10E3/uL 0.0-0.2 Count Includes [facility] HospitalEosinophil Absolute Ltgrl2360-88-50 08:44:00* Test Item Value Reference Range Interpretation Comme nts Eosinophil Absolute Count (t est code = 58336-9) 0.2 X10E3/UL 0.0-0.4 [facility] Healthmonocyte count, blood, iazscifbl4355-69-62 08:44:00* Test Item Value Reference Range Interpretation Comme nts monocyte count, blood, autom ated (test code = 742-7) 0.3 X10E3/UL 0.1-0.9 [facility] Healthlymphocyte count, blood, phizbondf0357-00-70 08:44:00* Test Item Value Reference Range Interpretation Comme nts lymphocyte count, blood, automated (test code = 731-0) 2.4 X10E3/UL 0.7-3.1 [facility] HealthAbsolute Nmmspxdxbwc3789-65-29 08:44:00* Test Item Value Reference Range Interpretation Comme nts Absolute Neutrophils (test c ode = 71933-2) 7.3 X10E3/UL 1.4-7.0 H [facility] Healthbasophils as percent of blood ntndzihstp5471-00-75 08:44:00* Test Item Value Reference Range Interpretation Comme nts basophils as percent of bloo d leukocytes (test code = 707-0) 0 % Count Includes The [facility] [facility]aleosinophils as percent of blood ehnfuhguai3537-26-17 08:44:00* Test Item Value Reference Range Interpretation Comme nts eosinophils as percent of bl ood leukocytes (test code = 713-8) 2 % [facility] Healthmonocytes as percent of blood [id number] 08:44:00* Test Item Value Reference Range Interpretation Comme nts monocytes as percent of bloo d leukocytes (test code = 5905-5) 3 % [facility] Healthlymphocytes as percent of blood [id number] 08:44:00* Test Item Value Reference Range Interpretation Comme nts lymphocytes as percent of bl ood leukocytes (test code = 736-9) 24 % [facility] Healthneutrophils as percent of blood zylkvpbfpt7434-49-18 08:44:00* Test Item Value Reference Range Interpretation Comme nts neutrophils as percent of bl ood leukocytes (test code = 770-8) 71 % [facility] Healthplatelet [id number] 08:44:00* Test Item Value Reference Range Interpretation Comme nts platelet count (test code = 777-3) 217 X10E3/UL 150-379 [facility] [id number] 08:44:00* Test Item Value Reference Range Interpretation Comme [facility] red blood cell distribution width (test code = 788-0) 14.2 % 12.3-15.4 [facility] corpuscular hemoglobin concentration, [id number] 08:44:00* Test Item Value Reference Range Interpretation Comme [facility] mean corpuscular hemoglobin concentration, RBC (test code = 786-4) 34.6 G/DL 31.5-35.7 [facility] corpuscular hemoglobin, [id number] 08:44:00* Test Item Value Reference Range Interpretation Comme [facility] mean corpuscular hemoglobin, RBC (test code = 785-6) 32.6 pg 26.6-33.0 [facility] corpuscular volume, [id number] 08:44:00* Test Item Value Reference Range Interpretation Comme [facility] mean corpuscular volume, RBC (test code = 787-2) 94 fL 79-97 Count Includes [facility] Hospitalhematocrit, [id number] 08:44:00* Test Item Value Reference Range Interpretation Comme [facility] hematocrit, blood (test code = 4544-3) 47.4 % 37.5-51. 0 Count Includes [facility] Hospitalhemoglobin, [id number] 08:44:00* Test Item Value Reference Range Interpretation Comme [facility] hemoglobin, blood (test code = 718-7) 16.4 g/dL 13.0-17.7 Count Includes [facility] Hospitalerythrocyte (RBC) nncdk1046-94-55 08:44:00* Test Item Value Reference Range Interpretation Comme [facility] erythrocyte (RBC) count (janett t code = 789-8) 5.03 X10E6/UL 4.14-5.80 Count Includes [facility] Hospitalleukocyte count, [id number] 08:44:00* Test Item Value Reference Range Interpretation Comme [facility] leukocyte count, blood (test code = 6690-2) 10.2 X10E3/UL 3.4-10.8 Count Includes [facility] HospitalCD4/CD8 [id number] 08:44:00* Test Item Value Reference Range Interpretation Comme [facility] CD4/CD8 ratio (test code = 58166) 1.64 (unknown unit) 0.92-3.72 Count Includes [facility] HospitalT-suppressor cells (CD8) as percent of blood lymphocytes 2018-05-21 08:44:00* Test Item Value Reference Range Interpretation Comme nts T-suppressor cells (CD8) as percent of blood lymphocytes (test code = 3517) 28.7 % 12.0-35.5 Count Includes [facility] Hospitalabsolute [id number] 08:44:00* Test Item Value Reference Range Interpretation Comme nts absolute CD8 (test code = 13892) 689 (unknown unit) 109-897 Count Includes [facility] HospitalTreponema pallidum antibodies, by particle agglutination 2017-11-24 11:58:00* Test Item Value Reference Range Interpretation Comme nts Treponema pallidum antibodie s, by particle agglutination (test code = 02026-4) Positive Negative A Count Includes [facility] Hospitalhemoglobin A1C, blood, as % of total [id number] 11:58:00* Test Item Value Reference Range Interpretation Comme nts hemoglobin A1C, blood, as % of total hemoglobin (test code = 4548-4) 6.2 % 4.8-5.6 H Count Includes [facility] HospitalLDL cholesterol, [id number] 11:58:00* Test Item Value Reference Range Interpretation Comme nts LDL cholesterol, serum (test code = 2089-1) TRIGHI mg/dL 0-99 Count Includes [facility] HospitalHDL cholesterol, blmej4723-73-06 11:58:00* Test Item Value Reference Range Interpretation Comme nts HDL cholesterol, serum (test code = 2085-9) 22 mg/dL >39 L Count Includes [facility] Hospitaltriglyceride, serum, daukktb3999-40-02 11:58:00* Test Item Value Reference Range Interpretation Comme nts triglyceride, serum, fasting (test code = 2571-8) 471 mg/dL 0-149 H Count Includes [facility] Hospitalcholesterol, [id number] 11:58:00* Test Item Value Reference Range Interpretation Comme nts cholesterol, serum (test cod e = 2093-3) 159 mg/dL 100-199 Count Includes [facility] HospitalT-helper cells (CD4) as percent of blood lymphocytes 2017-11-24 11:58:00* Test Item Value Reference Range Interpretation Comme nts T-helper cells (CD4) as perc ent of blood lymphocytes (test code = 8123-2) 44.9 % 30.8-58.5 Count Includes [facility] HospitalT-helper cells (CD4) ctdqx0913-38-77 11:58:00* Test Item Value Reference Range Interpretation Comme nts T-helper cells (CD4) count ( test code = 25555-1) 853 /UL 359-1519 Count Includes [facility] Hospitalhepatitis C antibody, wujrd1485-77-97 11:58:00* Test Item Value Reference Range Interpretation Comme nts hepatitis C antibody, serum (test code = 5199-5) 0.1 (unknown unit) 0.0-0.9 Count Includes [facility] Hospitalrapid plasma reagin antibody, [id number] 11:58:00* Test Item Value Reference Range Interpretation Comme nts rapid plasma reagin antibody, serum (test code = 5291-0) 1:2 See_Comment H [Automated messa ge] The system which generated this result transmitted reference range: NonRea<1:1. The reference range was not used to interpret this result as normal/abnormal. Count Includes [facility] HospitalHIV-1RNA, serum, by PCR, zxbxevqnsevx1506-28-36 11:58:00 * Test Item Value Reference Range Interpretation Comme nts HIV-1RNA, serum, by PCR, quantitative (test code = 65731) <20 copies/mL [facility] low density ydyrtlbgtwik7451-83-51 11:58:00* Test Item Value Reference Range Interpretation Comme [facility] very low density lipoprotein s (test code = 2091-7) VLDLCH mg/dL 5-40 Count Includes [facility] Hospitalalanine aminotransferase (SGPT), szxqp8694-95-76 11:58:00 * Test Item Value Reference Range Interpretation Comme nts alanine aminotransferase (SG PT), serum (test code = 1742-6) 92 1/L 0-44 H Count Includes [facility] Hospitalaspartate aminotransferase (SGOT), [id number] 11:58:00* Test Item Value Reference Range Interpretation Comme nts aspartate aminotransferase ( SGOT), serum (test code = 1920-8) 49 1/L 0-40 H Count Includes [facility] Hospitalalkaline phosphatase, widpi2784-14-61 11:58:00* Test Item Value Reference Range Interpretation Comme nts alkaline phosphatase, serum (test code = 1783-0) 79 1/L 39-117 [facility] Healthbilirubin, serum, [id number] 11:58:00* Test Item Value Reference Range Interpretation Comme nts bilirubin, serum, total (janett t code = 1975-2) 0.4 mg/dL 0.0-1.2 [facility] Healthalbumin/globulin ratio, wheun0547-24-62 11:58:00* Test Item Value Reference Range Interpretation Comme nts albumin/globulin ratio, serum (test code = 1759-0) 1.5 (unknown unit) 1.2-2.2 [facility] Healthglobulin, [id number] 11:58:00* Test Item Value Reference Range Interpretation Comme nts globulin, serum (test code = 2336-6) 3.1 (unknown unit) 1.5-4.5 [facility] Healthalbumin, zupml6497-56-03 11:58:00* Test Item Value Reference Range Interpretation Comme nts albumin, serum (test code = 1751-7) 4.6 g/dL 3.5-5.5 [facility] Healthprotein, total, ncnpt5546-42-22 11:58:00* Test Item Value Reference Range Interpretation Comme nts protein, total, serum (test code = 2885-2) 7.7 g/dL 6.0-8.5 [facility] Healthcalcium, [id number] 11:58:00* Test Item Value Reference Range Interpretation Comme nts calcium, serum (test code = 2000-8) 9.6 mg/dL 8.7-10.2 Count Includes [facility] Hospitalcarbon dioxide, venous kfvuo7899-00-20 11:58:00* Test Item Value Reference Range Interpretation Comme nts carbon dioxide, venous blood (test code = 2027-1) 27 mmol/L 18-29 [facility] Healthchloride, ayflv0244-66-71 11:58:00* Test Item Value Reference Range Interpretation Comme nts chloride, serum (test code = 2075-0) 100 mmol/L 96-106 [facility] Healthpotassium, [id number] 11:58:00* Test Item Value Reference Range Interpretation Comme nts potassium, serum (test code = 2823-3) 4.6 mmol/L 3.5-5.2 Count Includes [facility] Hospitalsodium, [id number] 11:58:00* Test Item Value Reference Range Interpretation Comme nts sodium, serum (test code = 2951-2) 143 mmol/L 134-144 Count Includes [facility] Hospitalurea nitrogen/creatinine ratio, rhrod5732-51-43 11:58:00 * Test Item Value Reference Range Interpretation Comme nts urea nitrogen/creatinine ratio, serum (test code = 3097-3) 12 (unknown unit) 9-20 [facility] HealtheGFR if Bpsopxca1100-93-13 11:58:00* Test Item Value Reference Range Interpretation Comme nts eGFR if (test code = 40712-2) 99 mL/min/{1.73 m2} >59 Count Includes [facility] HospitalEstimated Glomerular Filtration Rate (calc)2017-11-24 11:58:00* Test Item Value Reference Range Interpretation Comme nts Estimated Glomerular Filtration Rate (calc) (test code = 25778-0) 86 mL/min/{1.73 m2} >59 Count Includes [facility] Hospitalcreatinine, [id number] 11:58:00* Test Item Value Reference Range Interpretation Comme nts creatinine, serum (test code = 2160-0) 1.08 mg/dL 0.76-1.27 Count Includes [facility] Hospitalurea nitrogen, [id number] 11:58:00* Test Item Value Reference Range Interpretation Comme nts urea nitrogen, blood (test c ode = 3094-0) 13 mg/dL 6-20 Count Includes [facility] Hospitalblood glucose, huysjt9304-53-72 11:58:00* Test Item Value Reference Range Interpretation Comme nts blood glucose, random (test code = 2339-0) 178 mg/dL 65-99 H Count Includes [facility] Hospitalimmature granulocytes, percentage of total cells, blood 2017-11-24 11:58:00* Test Item Value Reference Range Interpretation Comme nts immature granulocytes, perce ntage of total cells, blood (test code = 74049-3) 1 % Count Includes [facility] Hospitalbasophil count, bcotjiob5921-57-27 11:58:00* Test Item Value Reference Range Interpretation Comme nts basophil count, absolute (te st code = 75090-2) 0.0 x10E3/uL 0.0-0.2 [facility] HealthEosinophil Absolute Zcgvj8983-87-35 11:58:00* Test Item Value Reference Range Interpretation Comme nts Eosinophil Absolute Count (t est code = 56950-1) 0.1 X10E3/UL 0.0-0.4 [facility] Healthmonocyte count, blood, zrvwizqyh1763-64-75 11:58:00* Test Item Value Reference Range Interpretation Comme nts monocyte count, blood, autom ated (test code = 742-7) 0.3 X10E3/UL 0.1-0.9 [facility] Healthlymphocyte count, blood, icbotppca4943-01-71 11:58:00* Test Item Value Reference Range Interpretation Comme nts lymphocyte count, blood, automated (test code = 731-0) 1.9 X10E3/UL 0.7-3.1 [facility] HealthAbsolute Oyykgkzymnj5952-85-05 11:58:00* Test Item Value Reference Range Interpretation Comme nts Absolute Neutrophils (test c ode = 78716-1) 4.7 X10E3/UL 1.4-7.0 [facility] Healthbasophils as percent of blood phqmljgryv4207-97-37 11:58:00* Test Item Value Reference Range Interpretation Comme nts basophils as percent of bloo d leukocytes (test code = 707-0) 0 % [facility] Healtheosinophils as percent of blood vquhsygyoq6764-89-18 11:58:00* Test Item Value Reference Range Interpretation Comme nts eosinophils as percent of bl ood leukocytes (test code = 713-8) 2 % [facility] Healthmonocytes as percent of blood hvzrixbysw4039-37-39 11:58:00* Test Item Value Reference Range Interpretation Comme nts monocytes as percent of bloo d leukocytes (test code = 5905-5) 4 % [facility] Healthlymphocytes as percent of blood ixsfhosdzm6455-40-20 11:58:00* Test Item Value Reference Range Interpretation Comme nts lymphocytes as percent of bl ood leukocytes (test code = 736-9) 26 % [facility] Healthneutrophils as percent of blood qlbexoblft9311-39-30 11:58:00* Test Item Value Reference Range Interpretation Comme [facility] neutrophils as percent of bl ood leukocytes (test code = 770-8) 67 % Count Includes [facility] Hospitalplatelet bwvjm7573-43-15 11:58:00* Test Item Value Reference Range Interpretation Comme [facility] platelet count (test code = 777-3) 247 X10E3/UL 150-379 Count Includes [facility] Hospitalred blood cell distribution jyzlk3987-26-12 11:58:00* Test Item Value Reference Range Interpretation Comme [facility] red blood cell distribution width (test code = 788-0) 13.7 % 12.3-15.4 [facility] corpuscular hemoglobin concentration, [id number] 11:58:00* Test Item Value Reference Range Interpretation Comme [facility] mean corpuscular hemoglobin concentration, RBC (test code = 786-4) 34.8 G/DL 31.5-35.7 [facility] corpuscular hemoglobin, [id number] 11:58:00* Test Item Value Reference Range Interpretation Comme [facility] mean corpuscular hemoglobin, RBC (test code = 785-6) 31.4 pg 26.6-33.0 [facility] corpuscular volume, [id number] 11:58:00* Test Item Value Reference Range Interpretation Comme [facility] mean corpuscular volume, RBC (test code = 787-2) 90 fL 79-97 Count Includes [facility] Hospitalhematocrit, ejubc6406-07-41 11:58:00* Test Item Value Reference Range Interpretation Comme [facility] hematocrit, blood (test code = 4544-3) 47.7 % 37.5-51. 0 Count Includes [facility] Hospitalhemoglobin, zpnao7021-30-11 11:58:00* Test Item Value Reference Range Interpretation Comme [facility] hemoglobin, blood (test code = 718-7) 16.6 g/dL 13.0-17.7 Count Includes [facility] Hospitalerythrocyte (RBC) lpcxx4706-34-08 11:58:00* Test Item Value Reference Range Interpretation Comme [facility] erythrocyte (RBC) count (janett t code = 789-8) 5.29 X10E6/UL 4.14-5.80 Count Includes [facility] Hospitalleukocyte count, jrdqk8746-89-00 11:58:00* Test Item Value Reference Range Interpretation Comme nts leukocyte count, blood (test code = 6690-2) 7.1 X10E3/UL 3.4-10.8 Count Includes [facility] HospitalCD4/CD8 rpfla6222-62-52 11:58:00* Test Item Value Reference Range Interpretation Comme nts CD4/CD8 ratio (test code = 84148) 1.39 (unknown unit) 0.92-3.72 Count Includes [facility] HospitalT-suppressor cells (CD8) as percent of blood lymphocytes 2017-11-24 11:58:00* Test Item Value Reference Range Interpretation Comme nts T-suppressor cells (CD8) as percent of blood lymphocytes (test code = 3517) 32.4 % 12.0-35.5 Count Includes [facility] Hospitalabsolute [id number] 11:58:00* Test Item Value Reference Range Interpretation Comme nts absolute CD8 (test code = 84357) 616 (unknown unit) 109-897 Count Includes [facility] HospitalTreponema pallidum antibodies, by particle agglutination 2017-06-16 09:37:00* Test Item Value Reference Range Interpretation Comme [facility] Treponema pallidum antibodie s, by particle agglutination (test code = 16952-0) Positive Negative A Count Includes [facility] Hospitalhemoglobin A1C, blood, as % of total lbrtkkxqpe9618-28-43 09:37:00* Test Item Value Reference Range Interpretation Comme nts hemoglobin A1C, blood, as % of total hemoglobin (test code = 4548-4) 6.8 % 4.8-5.6 H Count Includes [facility] HospitalLDL cholesterol, fhgdc3568-81-26 09:37:00* Test Item Value Reference Range Interpretation Comme [facility] LDL cholesterol, serum (test code = 2089-1) 68 mg/dL 0-99 Count Includes [facility] HospitalHDL cholesterol, bbgdr7595-59-12 09:37:00* Test Item Value Reference Range Interpretation Comme [facility] HDL cholesterol, serum (test code = 2085-9) 25 mg/dL >39 L Count Includes [facility] Hospitaltriglyceride, serum, ihetbaf2797-86-98 09:37:00* Test Item Value Reference Range Interpretation Comme nts triglyceride, serum, fasting (test code = 2571-8) 390 mg/dL 0-149 H Count Includes [facility] Hospitalcholesterol, iiskm4096-10-43 09:37:00* Test Item Value Reference Range Interpretation Comme nts cholesterol, serum (test cod e = 2093-3) 171 mg/dL 100-199 Count Includes [facility] HospitalT-helper cells (CD4) as percent of blood lymphocytes 2017-06-16 09:37:00* Test Item Value Reference Range Interpretation Comme nts T-helper cells (CD4) as perc ent of blood lymphocytes (test code = 8123-2) 41.9 % 30.8-58.5 Count Includes [facility] HospitalT-helper cells (CD4) saisv7904-95-53 09:37:00* Test Item Value Reference Range Interpretation Comme nts T-helper cells (CD4) count ( test code = 41022-5) 880 /UL 359-1519 Count Includes [facility] Hospitalrapid plasma reagin antibody, pnscr7683-40-25 09:37:00* Test Item Value Reference Range Interpretation Comme nts rapid plasma reagin antibody, serum (test code = 5291-0) 1:4 See_Comment H [Automated messa ge] The system which generated this result transmitted reference range: NonRea<1:1. The reference range was not used to interpret this result as normal/abnormal. Count Includes [facility] HospitalHIV-1RNA, serum, by PCR, iqmouvdwyyse8449-49-89 09:37:00 * Test Item Value Reference Range Interpretation Comme nts HIV-1RNA, serum, by PCR, paula ntitative (test code = 74396) 40 /mL [facility] low density bckhczwdbefr0492-88-70 09:37:00* Test Item Value Reference Range Interpretation Comme nts very low density lipoprotein s (test code = 2091-7) 78 mg/dL 5-40 H Count Includes [facility] Hospitalalanine aminotransferase (SGPT), nqhdh1662-63-25 09:37:00 * Test Item Value Reference Range Interpretation Comme nts alanine aminotransferase (SG PT), serum (test code = 1742-6) 77 1/L 0-44 H Count Includes [facility] Hospitalaspartate aminotransferase (SGOT), thare5642-81-94 09:37:00* Test Item Value Reference Range Interpretation Comme nts aspartate aminotransferase ( SGOT), serum (test code = 1920-8) 46 1/L 0-40 H Count Includes [facility] Hospitalalkaline phosphatase, nlpko8486-96-28 09:37:00* Test Item Value Reference Range Interpretation Comme nts alkaline phosphatase, serum (test code = 1783-0) 89 1/L 39-117 [facility] Healthbilirubin, serum, ummbi4515-09-35 09:37:00* Test Item Value Reference Range Interpretation Comme nts bilirubin, serum, total (janett t code = 1975-2) 0.4 mg/dL 0.0-1.2 [facility] Healthalbumin/globulin ratio, dnmvx4912-94-62 09:37:00* Test Item Value Reference Range Interpretation Comme nts albumin/globulin ratio, serum (test code = 1759-0) 1.7 (unknown unit) 1.2-2.2 [facility] Healthglobulin, juzar5716-75-94 09:37:00* Test Item Value Reference Range Interpretation Comme nts globulin, serum (test code = 2336-6) 2.6 (unknown unit) 1.5-4.5 [facility] Healthalbumin, wwmuk1019-50-72 09:37:00* Test Item Value Reference Range Interpretation Comme nts albumin, serum (test code = 1751-7) 4.4 g/dL 3.5-5.5 [facility] Healthprotein, total, [id number] 09:37:00* Test Item Value Reference Range Interpretation Comme nts protein, total, serum (test code = 2885-2) 7.0 g/dL 6.0-8.5 [facility] Healthcalcium, [id number] 09:37:00* Test Item Value Reference Range Interpretation Comme nts calcium, serum (test code = 2000-8) 9.3 mg/dL 8.7-10.2 Count Includes [facility] Hospitalcarbon dioxide, venous mmybv8581-84-21 09:37:00* Test Item Value Reference Range Interpretation Comme nts carbon dioxide, venous blood (test code = 2027-1) 25 mmol/L 18-29 [facility] Healthchloride, qxqmf5628-06-97 09:37:00* Test Item Value Reference Range Interpretation Comme nts chloride, serum (test code = 2075-0) 102 mmol/L 96-106 [facility] Healthpotassium, wvity0513-03-06 09:37:00* Test Item Value Reference Range Interpretation Comme nts potassium, serum (test code = 2823-3) 4.6 mmol/L 3.5-5.2 [facility] Healthsodium, dfsce2569-04-81 09:37:00* Test Item Value Reference Range Interpretation Comme nts sodium, serum (test code = 2951-2) 142 mmol/L 134-144 Count Includes [facility] Hospitalurea nitrogen/creatinine ratio, zmrcg0872-32-67 09:37:00 * Test Item Value Reference Range Interpretation Comme nts urea nitrogen/creatinine ratio, serum (test code = 3097-3) 9 (unknown unit) 9-20 [facility] HealtheGFR if Urmlujxj1060-50-96 09:37:00* Test Item Value Reference Range Interpretation Comme nts eGFR if (test code = 39906-7) 127 mL/min/{1.73 m2} >59 Count Includes [facility] HospitalEstimated Glomerular Filtration Rate (calc)2017-06-16 09:37:00* Test Item Value Reference Range Interpretation Comme nts Estimated Glomerular Filtration Rate (calc) (test code = 37613-6) 110 mL/min/{1.73 m2} >59 Count Includes [facility] Hospitalcreatinine, sgjod3810-35-31 09:37:00* Test Item Value Reference Range Interpretation Comme nts creatinine, serum (test code = 2160-0) 0.86 mg/dL 0.76-1.27 Count Includes [facility] Hospitalurea nitrogen, [id number] 09:37:00* Test Item Value Reference Range Interpretation Comme nts urea nitrogen, blood (test c ode = 3094-0) 8 mg/dL 6-20 Count Includes [facility] Hospitalblood glucose, lbxahm0025-42-62 09:37:00* Test Item Value Reference Range Interpretation Comme nts blood glucose, random (test code = 2339-0) 236 mg/dL 65-99 H Count Includes [facility] Hospitalimmature granulocytes, percentage of total cells, blood 2017-06-16 09:37:00* Test Item Value Reference Range Interpretation Comme nts immature granulocytes, perce ntage of total cells, blood (test code = 54976-2) 0 % Count Includes [facility] Hospitalbasophil count, swfqkbxb8440-76-49 09:37:00* Test Item Value Reference Range Interpretation Comme nts basophil count, absolute (te st code = 90172-9) 0.0 x10E3/uL 0.0-0.2 [facility] HealthEosinophil Absolute Shdcr9220-15-20 09:37:00* Test Item Value Reference Range Interpretation Comme nts Eosinophil Absolute Count (t est code = 46750-5) 0.2 X10E3/UL 0.0-0.4 [facility] Healthmonocyte count, blood, qtiuifhur1095-71-66 09:37:00* Test Item Value Reference Range Interpretation Comme nts monocyte count, blood, autom ated (test code = 742-7) 0.3 X10E3/UL 0.1-0.9 [facility] Healthlymphocyte count, blood, gsnzhfukl0651-73-04 09:37:00* Test Item Value Reference Range Interpretation Comme nts lymphocyte count, blood, automated (test code = 731-0) 2.1 X10E3/UL 0.7-3.1 [facility] HealthAbsolute Ehtonxvgfzn5443-06-91 09:37:00* Test Item Value Reference Range Interpretation Comme nts Absolute Neutrophils (test c ode = 50411-1) 5.2 X10E3/UL 1.4-7.0 [facility] Healthbasophils as percent of blood nmbnngkvks0644-11-53 09:37:00* Test Item Value Reference Range Interpretation Comme nts basophils as percent of bloo d leukocytes (test code = 707-0) 1 % [facility] Healtheosinophils as percent of blood gjourzktte8591-54-72 09:37:00* Test Item Value Reference Range Interpretation Comme nts eosinophils as percent of bl ood leukocytes (test code = 713-8) 2 % [facility] Healthmonocytes as percent of blood isvslezdgk9315-60-52 09:37:00* Test Item Value Reference Range Interpretation Comme nts monocytes as percent of bloo d leukocytes (test code = 5905-5) 4 % [facility] Healthlymphocytes as percent of blood hauwzzkovf3244-24-81 09:37:00* Test Item Value Reference Range Interpretation Comme nts lymphocytes as percent of bl ood leukocytes (test code = 736-9) 26 % [facility] Healthneutrophils as percent of blood zhdnwtygur1828-06-07 09:37:00* Test Item Value Reference Range Interpretation Comme nts neutrophils as percent of bl ood leukocytes (test code = 770-8) 67 % [facility] zozdt5921-74-33 09:37:00* Test Item Value Reference Range Interpretation Comme [facility] platelet count (test code = 777-3) 239 X10E3/UL 150-379 Count Includes [facility] Hospitalred blood cell distribution glnvu4037-54-44 09:37:00* Test Item Value Reference Range Interpretation Comme [facility] red blood cell distribution width (test code = 788-0) 13.0 % 12.3-15.4 [facility] corpuscular hemoglobin concentration, [id number] 09:37:00* Test Item Value Reference Range Interpretation Comme [facility] mean corpuscular hemoglobin concentration, RBC (test code = 786-4) 35.0 G/DL 31.5-35.7 [facility] corpuscular hemoglobin, [id number] 09:37:00* Test Item Value Reference Range Interpretation Comme [facility] mean corpuscular hemoglobin, RBC (test code = 785-6) 31.1 pg 26.6-33.0 [facility] corpuscular volume, [id number] 09:37:00* Test Item Value Reference Range Interpretation Comme [facility] mean corpuscular volume, RBC (test code = 787-2) 89 fL 79-97 [facility] Hospitalhematocrit, bqypj0737-49-02 09:37:00* Test Item Value Reference Range Interpretation Comme [facility] hematocrit, blood (test code = 4544-3) 46.9 % 37.5-51. 0 Count Includes [facility] Hospitalhemoglobin, dsppn1024-14-16 09:37:00* Test Item Value Reference Range Interpretation Comme [facility] hemoglobin, blood (test code = 718-7) 16.4 g/dL 12.6-17.7 Count Includes [facility] Hospitalerythrocyte (RBC) ipklm4826-10-28 09:37:00* Test Item Value Reference Range Interpretation Comme [facility] erythrocyte (RBC) count (janett t code = 789-8) 5.27 X10E6/UL 4.14-5.80 Count Includes [facility] Hospitalleukocyte count, xchoj2622-35-30 09:37:00* Test Item Value Reference Range Interpretation Comme nts leukocyte count, blood (test code = 6690-2) 7.8 X10E3/UL 3.4-10.8 Count Includes [facility] HospitalCD4/CD8 psemj2742-41-77 09:37:00* Test Item Value Reference Range Interpretation Comme nts CD4/CD8 ratio (test code = 39307) 1.20 (unknown unit) 0.92-3.72 Count Includes [facility] HospitalT-suppressor cells (CD8) as percent of blood lymphocytes 2017-06-16 09:37:00* Test Item Value Reference Range Interpretation Comme nts T-suppressor cells (CD8) as percent of blood lymphocytes (test code = 3517) 34.8 % 12.0-35.5 Count Includes [facility] Hospitalabsolute [id number] 09:37:00* Test Item Value Reference Range Interpretation Comme nts absolute CD8 (test code = 48656) 731 (unknown unit) 109-897 Count Includes [facility] HospitalNeisseria gonorrhoeae DNA [id number] 09:48:00* Test Item Value Reference Range Interpretation Comme nts Neisseria gonorrhoeae DNA pr obe (test code = 27992-3) Negative Negative Count Includes [facility] Hospitalchlamydia DNA iibbu4499-82-71 09:48:00* Test Item Value Reference Range Interpretation Comme nts chlamydia DNA probe (test co de = 08824-7) Negative Negative Count Includes [facility] HospitalTreponema pallidum antibodies, by particle agglutination 2017-01-18 09:31:00* Test Item Value Reference Range Interpretation Comme nts Treponema pallidum antibodie s, by particle agglutination (test code = 14355-1) Positive Negative A Count Includes [facility] HospitalLDL cholesterol, gikmf6145-98-19 09:31:00* Test Item Value Reference Range Interpretation Comme nts LDL cholesterol, serum (test code = 2089-1) TRIGHI mg/dL 0-99 Count Includes [facility] HospitalHDL cholesterol, qqwkn4708-15-78 09:31:00* Test Item Value Reference Range Interpretation Comme nts HDL cholesterol, serum (test code = 2085-9) 17 mg/dL >39 L [facility], fvgdkoz8027-38-13 09:31:00* Test Item Value Reference Range Interpretation Comme nts triglyceride, serum, fasting (test code = 2571-8) 559 mg/dL 0-149 HH Count Includes [facility] Hospitalcholesterol, hevyc0551-67-12 09:31:00* Test Item Value Reference Range Interpretation Comme nts cholesterol, serum (test cod e = 2093-3) 174 mg/dL 100-199 Count Includes [facility] HospitalT-helper cells (CD4) as percent of blood lymphocytes 2017-01-18 09:31:00* Test Item Value Reference Range Interpretation Comme nts T-helper cells (CD4) as perc ent of blood lymphocytes (test code = 8123-2) 45.9 % 30.8-58.5 Count Includes [facility] HospitalT-helper cells (CD4) iamrq6905-31-77 09:31:00* Test Item Value Reference Range Interpretation Comme nts T-helper cells (CD4) count ( test code = 29377-7) 734 /UL 359-1519 Count Includes [facility] Hospitalrapid plasma reagin antibody, fvsnp4497-79-17 09:31:00* Test Item Value Reference Range Interpretation Comme [facility] rapid plasma reagin antibody, serum (test code = 5291-0) 1:4 See_Comment H [Automated [employer]dp[employer] ge] The system which generated this result transmitted reference range: NonRea<1:1. The reference range was not used to interpret this result as normal/abnormal. Count Includes [facility] HospitalHIV-1RNA, serum, by PCR, eanuyrqymrwh8487-47-65 09:31:00 * Test Item Value Reference Range Interpretation Comme [facility] HIV-1RNA, serum, by PCR, quantitative (test code = 92973) <20 copies/mL Count Includes [facility] HospitalHepatitis B virus DNA, by Polymerase Chain Reaction 2017-01-18 09:31:00* Test Item Value Reference Range Interpretation Comme [facility] Hepatitis B virus DNA, by Po lymerase Chain Reaction (test code = 67420) <10 [facility] low density ycrfpsjfryxb2010-26-65 09:31:00* Test Item Value Reference Range Interpretation Comme [facility] very low density lipoprotein s (test code = 2091-7) VLDLCH mg/dL 5-40 Count Includes [facility] Hospitalalanine aminotransferase (SGPT), yuoui6192-63-49 09:31:00 * Test Item Value Reference Range Interpretation Comme nts alanine aminotransferase (SG PT), serum (test code = 1742-6) 90 1/L 0-44 H Count Includes [facility] Hospitalaspartate aminotransferase (SGOT), pdolo0320-21-27 09:31:00* Test Item Value Reference Range Interpretation Comme nts aspartate aminotransferase ( SGOT), serum (test code = 1920-8) 66 1/L 0-40 H Count Includes [facility] Hospitalalkaline phosphatase, ublnq6859-66-30 09:31:00* Test Item Value Reference Range Interpretation Comme nts alkaline phosphatase, serum (test code = 1783-0) 104 1/L 39-117 [facility] Healthbilirubin, serum, yordt0191-26-83 09:31:00* Test Item Value Reference Range Interpretation Comme nts bilirubin, serum, total (janett t code = 1975-2) 0.4 mg/dL 0.0-1.2 [facility] Healthalbumin/globulin ratio, fcfby4672-41-05 09:31:00* Test Item Value Reference Range Interpretation Comme nts albumin/globulin ratio, serum (test code = 1759-0) 1.3 (unknown unit) 1.2-2.2 [facility] Healthglobulin, vrhtj4557-85-54 09:31:00* Test Item Value Reference Range Interpretation Comme nts globulin, serum (test code = 2336-6) 3.0 (unknown unit) 1.5-4.5 [facility] Healthalbumin, xwphh6904-04-58 09:31:00* Test Item Value Reference Range Interpretation Comme nts albumin, serum (test code = 1751-7) 4.0 g/dL 3.5-5.5 [facility] Healthprotein, total, xosad6366-88-16 09:31:00* Test Item Value Reference Range Interpretation Comme nts protein, total, serum (test code = 2885-2) 7.0 g/dL 6.0-8.5 [facility] Healthcalcium, oyuib3698-33-55 09:31:00* Test Item Value Reference Range Interpretation Comme nts calcium, serum (test code = 2000-8) 9.0 mg/dL 8.7-10.2 Count Includes [facility] Hospitalcarbon dioxide, venous yvcao0093-93-75 09:31:00* Test Item Value Reference Range Interpretation Comme nts carbon dioxide, venous blood (test code = 2027-1) 22 mmol/L 18-29 [facility] Healthchloride, axueu3107-57-34 09:31:00* Test Item Value Reference Range Interpretation Comme nts chloride, serum (test code = 2075-0) 100 mmol/L 96-106 [facility] Healthpotassium, khbep1080-38-42 09:31:00* Test Item Value Reference Range Interpretation Comme nts potassium, serum (test code = 2823-3) 4.3 mmol/L 3.5-5.2 Count Includes [facility] Hospitalsodium, lbyfa7233-56-37 09:31:00* Test Item Value Reference Range Interpretation Comme nts sodium, serum (test code = 2951-2) 139 mmol/L 134-144 Count Includes [facility] Hospitalurea nitrogen/creatinine ratio, tvwrk0545-29-51 09:31:00 * Test Item Value Reference Range Interpretation Comme nts urea nitrogen/creatinine ratio, serum (test code = 3097-3) 8 (unknown unit) 8-19 [facility] HealtheGFR if Uczasbar3396-24-44 09:31:00* Test Item Value Reference Range Interpretation Comme nts eGFR if (test code = 39294-2) 107 mL/min/{1.73 m2} >59 Count Includes [facility] HospitalEstimated Glomerular Filtration Rate (calc)2017-01-18 09:31:00* Test Item Value Reference Range Interpretation Comme nts Estimated Glomerular Filtration Rate (calc) (test code = 63050-5) 93 mL/min/{1.73 m2} >59 Count Includes [facility] Hospitalcreatinine, wwahq0000-71-70 09:31:00* Test Item Value Reference Range Interpretation Comme nts creatinine, serum (test code = 2160-0) 1.02 mg/dL 0.76-1.27 Count Includes [facility] Hospitalurea nitrogen, gfhws1708-57-81 09:31:00* Test Item Value Reference Range Interpretation Comme nts urea nitrogen, blood (test c ode = 3094-0) 8 mg/dL 6-20 Count Includes [facility] Hospitalblood glucose, yesoym0778-87-26 09:31:00* Test Item Value Reference Range Interpretation Comme nts blood glucose, random (test code = 2339-0) 313 mg/dL 65-99 H Count Includes [facility] Hospitalimmature granulocytes, percentage of total cells, blood 2017-01-18 09:31:00* Test Item Value Reference Range Interpretation Comme nts immature granulocytes, perce ntage of total cells, blood (test code = 77648-9) 0 % Count Includes [facility] Hospitalbasophil count, uqnxvoiw9111-85-00 09:31:00* Test Item Value Reference Range Interpretation Comme nts basophil count, absolute (te st code = 95791-6) 0.0 x10E3/uL 0.0-0.2 [facility] HealthEosinophil Absolute Wylsh0936-73-65 09:31:00* Test Item Value Reference Range Interpretation Comme nts Eosinophil Absolute Count (t est code = 15157-9) 0.3 X10E3/UL 0.0-0.4 [facility] Healthmonocyte count, blood, wlcxqlanp3186-98-74 09:31:00* Test Item Value Reference Range Interpretation Comme nts monocyte count, blood, autom ated (test code = 742-7) 0.4 X10E3/UL 0.1-0.9 Count Includes [facility] Hospitallymphocyte count, blood, hudzffqdx8819-06-80 09:31:00* Test Item Value Reference Range Interpretation Comme nts lymphocyte count, blood, automated (test code = 731-0) 1.6 X10E3/UL 0.7-3.1 Count Includes [facility] HospitalAbsolute Amsfnymzqbh6470-53-82 09:31:00* Test Item Value Reference Range Interpretation Comme nts Absolute Neutrophils (test c ode = 38047-7) 5.9 X10E3/UL 1.4-7.0 Count Includes [facility] Hospitalbasophils as percent of blood absyiovfxd1792-32-85 09:31:00* Test Item Value Reference Range Interpretation Comme nts basophils as percent of bloo d leukocytes (test code = 707-0) 0 % [facility] Healtheosinophils as percent of blood umivmmyltc8966-28-28 09:31:00* Test Item Value Reference Range Interpretation Comme nts eosinophils as percent of bl ood leukocytes (test code = 713-8) 3 % [facility] Healthmonocytes as percent of blood jdlpzrynkg1446-74-00 09:31:00* Test Item Value Reference Range Interpretation Comme nts monocytes as percent of bloo d leukocytes (test code = 5905-5) 5 % Count Includes [facility] Hospitallymphocytes as percent of blood ofngrvfply7716-10-09 09:31:00* Test Item Value Reference Range Interpretation Comme nts lymphocytes as percent of bl ood leukocytes (test code = 736-9) 19 % Count Includes [facility] Hospitalneutrophils as percent of blood jeviolwfzh1123-47-87 09:31:00* Test Item Value Reference Range Interpretation Comme nts neutrophils as percent of bl ood leukocytes (test code = 770-8) 73 % Count Includes [facility] Hospitalplatelet hfcis8132-69-35 09:31:00* Test Item Value Reference Range Interpretation Comme [facility] platelet count (test code = 777-3) 192 X10E3/UL 150-379 Count Includes [facility] Hospitalred blood cell distribution thlnx9765-66-81 09:31:00* Test Item Value Reference Range Interpretation Comme [facility] red blood cell distribution width (test code = 788-0) 13.7 % 12.3-15.4 [facility] corpuscular hemoglobin concentration, YMY9283-09-60 09:31:00* Test Item Value Reference Range Interpretation Comme [facility] mean corpuscular hemoglobin concentration, RBC (test code = 786-4) 34.7 G/DL 31.5-35.7 [facility] corpuscular hemoglobin, TOD8307-05-00 09:31:00* Test Item Value Reference Range Interpretation Comme [facility] mean corpuscular hemoglobin, RBC (test code = 785-6) 32.0 pg 26.6-33.0 [facility] corpuscular volume, [id number] 09:31:00* Test Item Value Reference Range Interpretation Comme [facility] mean corpuscular volume, RBC (test code = 787-2) 92 fL 79-97 Count Includes [facility] Hospitalhematocrit, cqvan5613-41-24 09:31:00* Test Item Value Reference Range Interpretation Comme [facility] hematocrit, blood (test code = 4544-3) 48.1 % 37.5-51. 0 Count Includes [facility] Hospitalhemoglobin, ozwdz1013-21-63 09:31:00* Test Item Value Reference Range Interpretation Comme nts hemoglobin, blood (test code = 718-7) 16.7 g/dL 12.6-17.7 Count Includes [facility] Hospitalerythrocyte (RBC) ljjxo3413-63-22 09:31:00* Test Item Value Reference Range Interpretation Comme nts erythrocyte (RBC) count (janett t code = 789-8) 5.22 X10E6/UL 4.14-5.80 Count Includes [facility] Hospitalleukocyte count, mfbkf3320-20-23 09:31:00* Test Item Value Reference Range Interpretation Comme nts leukocyte count, blood (test code = 6690-2) 8.3 X10E3/UL 3.4-10.8 Count Includes [facility] HospitalCD4/CD8 ryndq2446-91-34 09:31:00* Test Item Value Reference Range Interpretation Comme nts CD4/CD8 ratio (test code = 76230) 1.43 (unknown unit) 0.92-3.72 Count Includes [facility] HospitalT-suppressor cells (CD8) as percent of blood lymphocytes 2017-01-18 09:31:00* Test Item Value Reference Range Interpretation Comme nts T-suppressor cells (CD8) as percent of blood lymphocytes (test code = 3517) 32.0 % 12.0-35.5 Count Includes [facility] Hospitalabsolute [id number] 09:31:00* Test Item Value Reference Range Interpretation Comme nts absolute CD8 (test code = 50572) 512 (unknown unit) 109-897 Count Includes [facility] HospitalTreponema pallidum antibodies, by particle agglutination 2016-07-21 10:14:00* Test Item Value Reference Range Interpretation Comme nts Treponema pallidum antibodie s, by particle agglutination (test code = 26058-1) Positive Negative A Count Includes [facility] HospitalLDL cholesterol, noooi6991-45-08 10:14:00* Test Item Value Reference Range Interpretation Comme nts LDL cholesterol, serum (test code = 2089-1) TRIGHI mg/dL 0-99 Count Includes [facility] HospitalHDL cholesterol, hmpbm7359-84-76 10:14:00* Test Item Value Reference Range Interpretation Comme nts HDL cholesterol, serum (test code = 2085-9) 19 mg/dL >39 L Count Includes [facility] Hospitaltriglyceride, serum, yhifbzd6452-92-02 10:14:00* Test Item Value Reference Range Interpretation Comme nts triglyceride, serum, fasting (test code = 2571-8) 452 mg/dL 0-149 H Count Includes [facility] Hospitalcholesterol, sreth9529-35-03 10:14:00* Test Item Value Reference Range Interpretation Comme nts cholesterol, serum (test cod e = 2093-3) 144 mg/dL 100-199 Count Includes [facility] HospitalT-helper cells (CD4) as percent of blood lymphocytes 2016-07-21 10:14:00* Test Item Value Reference Range Interpretation Comme nts T-helper cells (CD4) as perc ent of blood lymphocytes (test code = 8123-2) 43.2 % 30.8-58.5 Count Includes [facility] HospitalT-helper cells (CD4) tvtxv4747-10-50 10:14:00* Test Item Value Reference Range Interpretation Comme nts T-helper cells (CD4) count ( test code = 83455-0) 691 /UL 359-1519 Count Includes [facility] HospitalQuantiferon Gold TB blood test for tuberculosis screening 2016-07-21 10:14:00* Test Item Value Reference Range Interpretation Comme [facility] Quantiferon Gold TB blood te st for tuberculosis screening (test code = 18181-5) Negative Negative Count Includes [facility] Hospitalrapid plasma reagin antibody, sasze3165-99-26 10:14:00* Test Item Value Reference Range Interpretation Comme nts rapid plasma reagin antibody, serum (test code = 5291-0) 1:2 See_Comment H [Automated messa ge] The system which generated this result transmitted reference range: NonRea<1:1. The reference range was not used to interpret this result as normal/abnormal. Count Includes [facility] HospitalHIV-1RNA, serum, by PCR, sdebbmshcthb8988-72-33 10:14:00 * Test Item Value Reference Range Interpretation Comme [facility] HIV-1RNA, serum, by PCR, quantitative (test code = 40761) <20 copies/mL [facility] low density mqafsesogfsu0642-30-01 10:14:00* Test Item Value Reference Range Interpretation Comme [facility] very low density lipoprotein s (test code = 2091-7) VLDLCH mg/dL 5-40 Count Includes [facility] Hospitalalanine aminotransferase (SGPT), kkwqi0873-95-56 10:14:00 * Test Item Value Reference Range Interpretation Comme nts alanine aminotransferase (SG PT), serum (test code = 1742-6) 128 1/L 0-44 H Count Includes [facility] Hospitalaspartate aminotransferase (SGOT), zywoh9457-70-61 10:14:00* Test Item Value Reference Range Interpretation Comme nts aspartate aminotransferase ( SGOT), serum (test code = 1920-8) 65 1/L 0-40 H Count Includes [facility] Hospitalalkaline phosphatase, stxfc5403-32-83 10:14:00* Test Item Value Reference Range Interpretation Comme nts alkaline phosphatase, serum (test code = 1783-0) 115 1/L 39-117 [facility] Healthbilirubin, serum, ycauk1877-97-84 10:14:00* Test Item Value Reference Range Interpretation Comme nts bilirubin, serum, total (janett t code = 1975-2) 0.6 mg/dL 0.0-1.2 [facility] Healthalbumin/globulin ratio, tdrrh1099-01-77 10:14:00* Test Item Value Reference Range Interpretation Comme nts albumin/globulin ratio, serum (test code = 1759-0) 1.5 (unknown unit) 1.1-2.5 [facility] Healthglobulin, [id number] 10:14:00* Test Item Value Reference Range Interpretation Comme nts globulin, serum (test code = 2336-6) 2.8 (unknown unit) 1.5-4.5 [facility] Healthalbumin, bmeds1962-09-07 10:14:00* Test Item Value Reference Range Interpretation Comme nts albumin, serum (test code = 1751-7) 4.2 g/dL 3.5-5.5 [facility] Healthprotein, total, qryhr5017-29-60 10:14:00* Test Item Value Reference Range Interpretation Comme nts protein, total, serum (test code = 2885-2) 7.0 g/dL 6.0-8.5 [facility] Healthcalcium, smwve7163-71-49 10:14:00* Test Item Value Reference Range Interpretation Comme nts calcium, serum (test code = 2000-8) 8.8 mg/dL 8.7-10.2 Count Includes [facility] Hospitalcarbon dioxide, venous hkbgk7305-56-45 10:14:00* Test Item Value Reference Range Interpretation Comme nts carbon dioxide, venous blood (test code = 2027-1) 18 mmol/L 18-29 [facility] Healthchloride, cibzx5402-27-14 10:14:00* Test Item Value Reference Range Interpretation Comme nts chloride, serum (test code = 2075-0) 101 mmol/L 97-108 Count Includes [facility] Hospitalpotassium, jvuhc5822-62-85 10:14:00* Test Item Value Reference Range Interpretation Comme nts potassium, serum (test code = 2823-3) 4.0 mmol/L 3.5-5.2 Count Includes [facility] Hospitalsodium, wcfhi9134-42-60 10:14:00* Test Item Value Reference Range Interpretation Comme nts sodium, serum (test code = 2951-2) 139 mmol/L 134-144 Count Includes [facility] Hospitalurea nitrogen/creatinine ratio, chdox9865-22-75 10:14:00 * Test Item Value Reference Range Interpretation Comme nts urea nitrogen/creatinine ratio, serum (test code = 3097-3) 10 (unknown unit) 8-19 [facility] HealtheGFR if Sesowtjk7927-55-42 10:14:00* Test Item Value Reference Range Interpretation Comme nts eGFR if (test code = 10799-2) 121 mL/min/{1.73 m2} >59 Count Includes [facility] HospitalEstimated Glomerular Filtration Rate (calc)2016-07-21 10:14:00* Test Item Value Reference Range Interpretation Comme nts Estimated Glomerular Filtration Rate (calc) (test code = 44566-1) 105 mL/min/{1.73 m2} >59 Count Includes [facility] Hospitalcreatinine, qzesz2630-80-15 10:14:00* Test Item Value Reference Range Interpretation Comme nts creatinine, serum (test code = 2160-0) 0.93 mg/dL 0.76-1.27 Count Includes [facility] Hospitalurea nitrogen, hfkjt5308-86-89 10:14:00* Test Item Value Reference Range Interpretation Comme nts urea nitrogen, blood (test c ode = 3094-0) 9 mg/dL 6-20 Count Includes [facility] Hospitalblood glucose, ocjynw1661-87-73 10:14:00* Test Item Value Reference Range Interpretation Comme nts blood glucose, random (test code = 2339-0) 362 mg/dL 65-99 H Count Includes [facility] [facility], percentage of total cells, blood 2016-07-21 10:14:00* Test Item Value Reference Range Interpretation Comme nts immature granulocytes, perce ntage of total cells, blood (test code = 44978-6) 0 % Count [facility] count, kodiulav5285-18-66 10:14:00* Test Item Value Reference Range Interpretation Comme nts basophil count, absolute (te st code = 96735-8) 0.0 x10E3/uL 0.0-0.2 [facility] HealthEosinophil Absolute Ykxin8560-51-14 10:14:00* Test Item Value Reference Range Interpretation Comme nts Eosinophil Absolute Count (t est code = 20453-3) 0.2 X10E3/UL 0.0-0.4 Count Includes [facility] Hospitalmonocyte count, blood, bysnqrhlf3191-06-33 10:14:00* Test Item Value Reference Range Interpretation Comme nts monocyte count, blood, autom ated (test code = 742-7) 0.3 X10E3/UL 0.1-0.9 Count Includes [facility] Hospitallymphocyte count, blood, xqimibqej2958-04-82 10:14:00* Test Item Value Reference Range Interpretation Comme nts lymphocyte count, blood, automated (test code = 731-0) 1.6 X10E3/UL 0.7-3.1 Count Includes [facility] HospitalAbsolute Rwvawjuoreh7568-75-36 10:14:00* Test Item Value Reference Range Interpretation Comme nts Absolute Neutrophils (test c ode = 54567-8) 3.7 X10E3/UL 1.4-7.0 [facility] Healthbasophils as percent of blood ccjbuioqkw1355-75-00 10:14:00* Test Item Value Reference Range Interpretation Comme nts basophils as percent of bloo d leukocytes (test code = 707-0) 0 % Count Includes [facility] Hospitaleosinophils as percent of blood frlnyucpxs2890-44-61 10:14:00* Test Item Value Reference Range Interpretation Comme nts eosinophils as percent of bl ood leukocytes (test code = 713-8) 3 % [facility] as percent of blood jmenktydro1621-87-78 10:14:00* Test Item Value Reference Range Interpretation Comme [facility] monocytes as percent of bloo d leukocytes (test code = 5905-5) 5 % Count Includes [facility] Hospitallymphocytes as percent of blood fwkznctspb8923-10-89 10:14:00* Test Item Value Reference Range Interpretation Comme nts lymphocytes as percent of bl ood leukocytes (test code = 736-9) 27 % Count Includes [facility] Hospitalneutrophils as percent of blood uciksdvqlr5004-18-71 10:14:00* Test Item Value Reference Range Interpretation Comme nts neutrophils as percent of bl ood leukocytes (test code = 770-8) 65 % Count Includes [facility] Hospitalplatelet feepp0499-29-10 10:14:00* Test Item Value Reference Range Interpretation Comme [facility] platelet count (test code = 777-3) 165 X10E3/UL 150-379 Count Includes [facility] Hospitalred blood cell distribution pmxyn9997-06-78 10:14:00* Test Item Value Reference Range Interpretation Comme [facility] red blood cell distribution width (test code = 788-0) 13.6 % 12.3-15.4 [facility] corpuscular hemoglobin concentration, CLG3343-67-88 10:14:00* Test Item Value Reference Range Interpretation Comme [facility] mean corpuscular hemoglobin concentration, RBC (test code = 786-4) 34.6 G/DL 31.5-35.7 [facility] corpuscular hemoglobin, HDJ5976-99-46 10:14:00* Test Item Value Reference Range Interpretation Comme [facility] mean corpuscular hemoglobin, RBC (test code = 785-6) 31.0 pg 26.6-33.0 [facility] corpuscular volume, IVK8886-45-72 10:14:00* Test Item Value Reference Range Interpretation Comme [facility] mean corpuscular volume, RBC (test code = 787-2) 90 fL 79-97 Count Includes [facility] Hospitalhematocrit, qcwwv0506-06-31 10:14:00* Test Item Value Reference Range Interpretation Comme [facility] hematocrit, blood (test code = 4544-3) 45.6 % 37.5-51. 0 [facility] Healthhemoglobin, efypk6406-30-14 10:14:00* Test Item Value Reference Range Interpretation Comme nts hemoglobin, blood (test code = 718-7) 15.8 g/dL 12.6-17.7 Count Includes [facility] Hospitalerythrocyte (RBC) abfxa6947-85-11 10:14:00* Test Item Value Reference Range Interpretation Comme nts erythrocyte (RBC) count (janett t code = 789-8) 5.09 X10E6/UL 4.14-5.80 Count Includes [facility] Hospitalleukocyte count, jvwoi6200-49-91 10:14:00* Test Item Value Reference Range Interpretation Comme nts leukocyte count, blood (test code = 6690-2) 5.8 X10E3/UL 3.4-10.8 Count Includes [facility] HospitalCD4/CD8 azgel7113-46-35 10:14:00* Test Item Value Reference Range Interpretation Comme nts CD4/CD8 ratio (test code = 64831) 1.39 (unknown unit) 0.92-3.72 Count Includes [facility] HospitalT-suppressor cells (CD8) as percent of blood lymphocytes 2016-07-21 10:14:00* Test Item Value Reference Range Interpretation Comme nts T-suppressor cells (CD8) as percent of blood lymphocytes (test code = 3517) 31.0 % 12.0-35.5 Count Includes [facility] Hospitalabsolute IO78099-13-00 10:14:00* Test Item Value Reference Range Interpretation Comme nts absolute CD8 (test code = 29772) 496 (unknown unit) 109-897 Count Includes [facility] Hospitalhepatitis A antibody, gygum1437-36-16 12:15:41* Test Item Value Reference Range Interpretation Comme [facility] hepatitis A antibody, total (test code = 75) Reactive Count Includes [facility] Hospitalhepatitis B surface nnhdpner7142-76-87 12:14:34* Test Item Value Reference Range Interpretation Comme [facility] hepatitis B surface antibody (test code = 78) Non-reactive Count Includes [facility] HospitalT-helper cells (CD4) as percent of blood lymphocytes 2016-04-15 12:13:24* Test Item Value Reference Range Interpretation Comme nts T-helper cells (CD4) as perc ent of blood lymphocytes (test code = 8123-2) 42 % Count Includes [facility] HospitalHIV-1RNA, serum, by PCR, xgrgfdgkxvpi1059-23-49 12:13:09 * Test Item Value Reference Range Interpretation Comme nts HIV-1RNA, serum, by PCR, paula ntitative (test code = 98400) <20 Count Includes [facility] HospitalT-helper cells (CD4) owxzd8568-22-52 12:12:46* Test Item Value Reference Range Interpretation Comme nts T-helper cells (CD4) count ( test code = 33228-6) 677 uL Count Includes [facility] Hospitaltoxoplasma gondii antibody, AkY0112-89-34 12:11:51* Test Item Value Reference Range Interpretation Comme nts toxoplasma gondii antibody, IgG (test code = 2430) <3 Count Includes [facility] Hospitalrapid plasma reagin antibody, fbwcr4571-31-57 12:11:28* Test Item Value Reference Range Interpretation Comme nts rapid plasma reagin antibody , serum (test code = 5291-0) 1:2 Count Includes [facility] HospitalHepatitis C virus (HCV) RNA, PCR, vupglcbkoatl3221-52-41 12:10:46* Test Item Value Reference Range Interpretation Comme nts Hepatitis C virus (HCV) RNA, PCR, quantitative (test code = 26949) Not-detected Count Includes [facility] Hospitalhepatitis C antibody, xrbyw7534-54-46 12:10:17* Test Item Value Reference Range Interpretation Comme nts hepatitis C antibody, serum (test code = 5199-5) Non-reactive Count Includes [facility] Hospitalhepatitis B surface tpgyixh9537-24-77 12:09:48* Test Item Value Reference Range Interpretation Comme nts hepatitis B surface antigen (test code = 79) reactive [facility] Healthprotein, total, jecve5085-00-16 12:08:51* Test Item Value Reference Range Interpretation Comme nts protein, total, serum (test code = 2885-2) 7.6 g/dL [facility] Healthalbumin, hbpau8066-10-23 12:08:51* Test Item Value Reference Range Interpretation Comme nts albumin, serum (test code = 1751-7) 4.0 g/dL [facility] Healthbilirubin, serum, lgdhp0360-36-65 12:08:50* Test Item Value Reference Range Interpretation Comme nts bilirubin, serum, total (janett t code = 1975-2) 0.5 mg/dL Count Includes [facility] Hospitalalanine aminotransferase (SGPT), otgxc6924-58-78 12:08:50 * Test Item Value Reference Range Interpretation Comme nts alanine aminotransferase (SG PT), serum (test code = 1742-6) 103 1/L Count Includes [facility] Hospitalaspartate aminotransferase (SGOT), jcllj5059-47-22 12:08:50* Test Item Value Reference Range Interpretation Comme nts aspartate aminotransferase ( SGOT), serum (test code = 1920-8) 54 1/L Count Includes [facility] Hospitalerythrocyte (RBC) xeuob2668-23-37 12:07:48* Test Item Value Reference Range Interpretation Comme nts erythrocyte (RBC) count (janett t code = 789-8) 5.26 10*6/mm3 [facility] Healthplatelet xfbmh4771-39-93 12:07:47* Test Item Value Reference Range Interpretation Comme nts platelet count (test code = 777-3) 228 10*3/mm3 Count Includes [facility] Hospitalhematocrit, pujav6581-11-34 12:07:47* Test Item Value Reference Range Interpretation Comme [facility] hematocrit, blood (test code = 4544-3) 46.8 % Count Includes [facility] Hospitalhemoglobin, irlbx8952-29-59 12:07:46* Test Item Value Reference Range Interpretation Comme [facility] hemoglobin, blood (test code = 718-7) 16.5 g/dL Count Includes [facility] Hospitalleukocyte count, uptxa7619-21-64 12:07:46* Test Item Value Reference Range Interpretation Comme [facility] leukocyte count, blood (test code = 6690-2) 0.74 10*3/mm3 Count Includes [facility] Hospitaltriglyceride, serum, zrdhfwc0904-91-80 12:06:54* Test Item Value Reference Range Interpretation Comme [facility] triglyceride, serum, fasting (test code = 2571-8) 330 mg/dL Count Includes [facility] HospitalLDL cholesterol, vbsqt9345-08-14 12:06:54* Test Item Value Reference Range Interpretation Comme [facility] LDL cholesterol, serum (test code = 2089-1) 88 mg/dL Count Includes [facility] HospitalHDL cholesterol, mnqqw6236-79-27 12:06:54* Test Item Value Reference Range Interpretation Comme [facility] HDL cholesterol, serum (test code = 2085-9) 23 mg/dL Count Includes [facility] Hospitalcholesterol, cgrdk1617-18-36 12:06:53* Test Item Value Reference Range Interpretation Comme nts cholesterol, serum (test cod e = 2093-3) 153 mg/dL Count Includes [facility] Hospitalcreatinine, kdmbl9482-53-50 12:06:25* Test Item Value Reference Range Interpretation Comme nts creatinine, serum (test code = 2160-0) 0.9 mg/dL Count Includes [facility] Hospitalurea nitrogen, astvp2086-16-17 12:06:25* Test Item Value Reference Range Interpretation Comme nts urea nitrogen, blood (test c ode = 3094-0) 10 mg/dL Count Includes [facility] Hospitalpotassium, xxvro4329-70-62 12:06:25* Test Item Value Reference Range Interpretation Comme nts potassium, serum (test code = 2823-3) 4.1 mmol/L Count Includes [facility] Hospitalsodium, kraey0228-36-45 12:06:24* Test Item Value Reference Range Interpretation Comme nts sodium, serum (test code = 2951-2) 142 mmol/L Count Includes [facility] HospitalT-helper cells (CD4) edpmh2939-82-63 15:52:58* Test Item Value Reference Range Interpretation Comme nts T-helper cells (CD4) count ( test code = 75073-3) 783 uL Count Includes [facility] HospitalHIV-1RNA, serum, by PCR, auoaajopwdvf5673-29-97 15:52:58 * Test Item Value Reference Range Interpretation Comme nts HIV-1RNA, serum, by PCR, paula ntitative (test code = 04206) 75 /mL Count Includes [facility] Notes Date/Time Note Provider Source 2024-01-15 11:42:10 slKyks2iY2Nug+iH/W/E 5pUdCEM87kDSUjrW83VH1m C1BLaUpTgRZyn/h7jTY2jm4089-85-66H16:42:10F ormatting of this note might be different from the original.Images from the original note were not included.Please advise on this refill, thank you. 06088-5Bsmlwrkzr encounter DulcZY0445-11-88I70:43:19Telephone encounter NoteTXT1.2.840.086086.1.13.104.2.7.2.48718 9|[id number] for patient pdtw83469-7KszwDPKRUXRNWPUYfkkkzink C-CDA narrative [address] Wr[id number] WIYPJBNMSNDVJQLX7776-22-64Y44:43:191.2.840 .158372.1.72.3.15|1.2.840.363898.1.13.104. 2.7.2.727879_[id number] [facility] 2024-01-12 13:05:49 nETFlyBW2Rd7cY+/qEzZ qDmO14jepu5+8ACj15W2sm DqEPHZOemgT8pl+ig16VbD9164-43-10N30:05:49F ormatting of this note might be different from the original.REFILL x5 (Already sent to the pharmacy)Provider: Nahomi Pugh'hamzah phone number: [phone] (home)Pharmacy:[facility] [place] [id number] [address]: 1) Medication: metFORMIN ER (GLUCOPHAGE-XR)Strength: 500 mg tablet,extended release 24 hrDirections: Take 4 tabs once dailyQuantity: 360 Tablets with 3 RefillsLast filled: Unknown2) Medication: fenofibrate nanocrystallized (TRICOR)Strength: 48 mg tabletDirections: TAKE ONE TABLET BY MOUTH DAILYQuantity: 30 Tablets with 11 RefillsLast filled: Unknown3) Medication: dulaglutide (TRULICITY)Strength: 3 mg/0.5 mL PnIjDirections: inject 1 Pen under the skin weeklyQuantity: 4 Pens with 5 RefillsLast filled: Unknown4) Medication: dmzmmfvdji-snjnnthr-qtbzkx ala (ODEFSEY)Strength: 200-25-25 mg TabDirections: TAKE ONE TABLET BY MOUTH DAILY WITH FOODQuantity: 30 Tablets with 5 RefillsLast filled: Unknown5) Medication: lisinopriL (PRINIVIL,ZESTRIL)Strength: 40 mg tabletDirections: TAKE ONE TABLET BY MOUTH DAILYQuantity: 90 Tablets with 8 RefillsLast filled: UnknownLast office visit: 11/28/2023Next scheduled visit: 05/28/2024 69443-0Ecuubbnos encounter JtloGH9621-60-18Z57:17:54Telephone encounter NoteTXT1.2.840.491996.1.13.104.2.7.2.15438 9|[id number] for patient snor22025-9WtjwCYSTRJQXIUXTravnmfkl C-CDA narrative [address] Ev[id number] CSXINFPKEPSLQSEB7011-69-12T16:17:541.2.840 .330348.1.72.3.15|1.2.840.362423.1.13.104. 2.7.2.727879_[id number] [facility] 2023-11-28 10:15:00 aZpvn/VYm4tEu9wdU3uz HewtcZ2SYCTYUjNEN2XicH +b413MH2yqdHqvAGb++9t/1652-39-96H48:15:00F ormatting of this note is different from the original.Images from the original note were not included.Venipuncture collection performed by clean technique on the right anticubitus. Total of 1 attempts were made. Slight pressure and a bandage/dressing were applied to the site(s). The patient experienced no complications. The following specimens were processed according to instructions and sent to [facility] laboratories per lab order on 11/28/2023:LT BLUESST 2REDLAV 1PPT 2DK GREEN (LiHep) 1DK GREEN (SodH)GRAYDK BLUE (K2)DK BLUE (S)ACDBlood CultureNIPT/NTD 74345-5Cjmor PnwiSE4630-24-54V82:25:12Nurse NoteTXT1.2.840.384451.1.13.104.2.7.2.32669 9|[id number] for patient qnpo99395-3Htmwz NoteLNNARRATIVEFormatted C-CDA narrative textUT[address] Cs[id number] SEDLLWUFEDCOTNGJ4685-08-52F63:25:121.2.840 .528651.1.72.3.15|1.2.840.137521.1.13.104. 2.7.2.727879_[id number] [facility]"
--- NOTE | 2024-01-31 10:51 | RAD REPORT ---
EXAM DESCRIPTION: CT - Head Brain Wo Cont - 01/31/2024 10:39 am CLINICAL HISTORY: HEADACHE COMPARISON: No comparisons TECHNIQUE: Noncontrast head CT images were obtained without IV contrast. Multiplanar reformats were generated and reviewed. All CT scans are performed using dose optimization technique as appropriate and may include automated exposure control or mA/KV adjustment according to patient size. FINDINGS: No intracranial hemorrhage, mass, or edema. Midline structures are unremarkable. Normal ventricular caliber for age. Davis-white matter differentiation is preserved, without evidence of acute infarct. No abnormal extra- axial fluid collections. Mastoid air cells and visualized portions of the paranasal sinuses are clear. No acute bony findings. IMPRESSION: No evidence of an acute intracranial process.
--- NOTE | 2024-01-31 11:02 | RAD REPORT ---
EXAM DESCRIPTION: RADChest Single View01/31/2024 10:57 am CLINICAL HISTORY: COUGH COMPARISON: Chest Pa And Lat (2 Views) dated 01/24/2023; Chest Single View dated 08/21/2021; Chest Si ngle View dated 06/08/2021; Chest Single View dated 04/23/2019 TECHNIQUE: Portable AP view of the chest. FINDINGS: The lungs are clear. No pneumothorax or effusion. The cardiomediastinal contours are unre markable. IMPRESSION: No acute cardiopulmonary process.
[2024-01-31 11:26] LABS: Specific Gravity 1.023 (1.005-1.030); Urine Bilirubin NEGATIVE (Negative); Urine Blood Negative (Negative); Urine Clarity Clear (Clear); Urine Color Light-Yellow (Yellow); Urine Glucose 4+ (Over) (Negative); Urine Ketones NEGATIVE (Negative); Urine Microscopic Reflex YN NO UMIC; Urine Nitrite NEGATIVE (Negative); Urine Protein NEGATIVE (Negative); Urine Urobilinogen Normal (Normal); Urine pH 6.5 (5.0-7.0)
[2024-01-31 11:26] LABS: Absolute Eosinophils 0.1 K/uL (0-0.5); Absolute Monocytes 0.4 K/uL (0.1-1.3); Absolute Neutrophil 4.6 K/uL (1.8-8.0); Basophils % 0.5 % (0-1.3); Eosinophils % 1.6 % (0-4.4); Hemoglobin 15.2 g/dL (13.6-17.9); Lymphocytes % 27.9 % (15.3-44.8); MCH 31.2 pg (27.0-35.0); MCHC 35.4 g/dL (32.0-36.0); MPV 8.3 fL (7.6-11.3); Monocytes % 5.3 % (3.3-12.3); Neutrophils % 64.7 % (41.7-73.7); Nucleated Red Blood Cells % 0.1 % (0-0); Platelets 206 thou/uL (152-406); RBC Red Blood Cell Count 4.89 M/uL (4.33-5.43); Red Cell Distribution Width 14.3 % (12.1-15.2)
[2024-01-31 11:32] LABS: PT Prothrombin Time 11.7 SECONDS (9.5-12.5); Protime INR 1.07
[2024-01-31 11:46] LABS: Albumin 3.9 g/dL (3.4-5.0); Albumin/Globulin Ratio 1.1 (1.1-1.8); Anion Gap 6.8 mEq/L (5.0-15.0); Bilirubin Direct 0.2 mg/dL (0-0.2); Bilirubin Indirect, Calculated 0.3 mg/dL (0.2-0.8); Bilirubin Total 0.5 mg/dL (0.2-1.0); Globulin 3.6 g/dL (2.3-3.5); Magnesium 2.4 mg/dL (1.6-2.4); Potassium 3.8 mEq/L (3.5-5.1); Protein, Total 7.5 g/dL (6.4-8.2)
--- NOTE | 2024-01-31 13:02 | EDPHYS ---
Physician Documentation [facility] Name: Jaleel Olivas Age: 43 yrs Sex: Male : 1980 Arrival Date: 01/31/2024 Time: 10:25 Bed 16 Private MD: Apolinar Smith ED Physician Matthieu Bowen HPI: 01/30 12:58 This 43 yrs old Male presents to ER via Ambulatory with complaints of Blurred anita Vision. 12:58 The patient is experiencing blurred vision. Onset: The symptoms/episode began/occurred anita 3 day(s) ago. Duration: the symptoms are continuous. Aggravated by nothing. Alleviated by nothing. Associated signs and symptoms: Pertinent positives: None. blurry vision. Patient wears glasses. Severity of symptoms: At their worst the symptoms were mild in the emergency department the symptoms are unchanged. Historical: - Allergies: 10:38 Codeine (Hives); hb 10:38 Tape; hb - Home Meds: 10:38 HIV med [Active]; lisinopril Oral [Active]; Metformin Oral [Active]; Odefsey oral hb [Active]; Trulicity subcutaneous [Active]; - PMHx: 10:38 Diabetes - NIDDM; HIV; Hypertension; hb - PSHx: 10:38 Appendectomy; hb - Immunization history:: Adult Immunizations up to date. - Social history:: Smoking status: Patient denies any tobacco usage or history of. - Family history:: not pertinent. ROS: 12:58 Constitutional: Negative for fever, chills, and weight loss, Eyes: Negative for injury, anita pain, redness, and discharge, ENT: Negative for injury, pain, and discharge, Neck: Negative for injury, pain, and swelling, Cardiovascular: Negative for chest pain, palpitations, and edema, Respiratory: Negative for shortness of breath, cough, wheezing, and pleuritic chest pain, Abdomen/GI: Negative for abdominal pain, nausea, vomiting, diarrhea, and constipation, Back: Negative for injury and pain, : Negative for injury, bleeding, discharge, and swelling, MS/Extremity: Negative for injury and deformity, Skin: Negative for injury, rash, and discoloration, Neuro: Negative for headache, weakness, numbness, tingling, and seizure, Psych: Negative for depression, anxiety, suicide ideation, homicidal ideation, and hallucinations, Allergy/Immunology: Negative for hives, rash, and allergies, Endocrine: Negative for neck swelling, polydipsia, polyuria, polyphagia, and marked weight changes, Hematologic/Lymphatic: Negative for swollen nodes, abnormal bleeding, and unusual bruising, 12:58 Eyes: Positive for blurry vision, Exam: 12:58 Constitutional: This is a well developed, well nourished patient who is awake, alert, anita and in no acute distress. Head/Face: Normocephalic, atraumatic. Eyes: Pupils equal round and reactive to light, extra-ocular motions intact. Lids and lashes normal. Conjunctiva and sclera are non-icteric and not injected. Cornea within normal limits. Periorbital areas with no swelling, redness, or edema. ENT: Nares patent. No nasal discharge, no septal abnormalities noted. Tympanic membranes are normal and external auditory canals are clear. Oropharynx with no redness, swelling, or masses, exudates, or evidence of obstruction, uvula midline. Mucous membranes moist. Neck: Trachea midline, no thyromegaly or masses palpated, and no cervical lymphadenopathy. Supple, full range of motion without nuchal rigidity, or vertebral point tenderness. No Meningismus. Chest/axilla: Normal chest wall appearance and motion. Nontender with no deformity. No lesions are appreciated. Cardiovascular: Regular rate and rhythm with a normal S1 and S2. No gallops, murmurs, or rubs. Normal PMI, no JVD. No pulse deficits. Respiratory: Lungs have equal breath sounds bilaterally, clear to auscultation and percussion. No rales, rhonchi or wheezes noted. No increased work of breathing, no retractions or nasal flaring. Abdomen/GI: Soft, non-tender, with normal bowel sounds. No distension or tympany. No guarding or rebound. No evidence of tenderness throughout. Back: No spinal tenderness. No costovertebral tenderness. Full range of motion. Male : Normal genitalia with no discharge or lesions. Skin: Warm, dry with normal turgor. Normal color with no rashes, no lesions, and no evidence of cellulitis. MS/ Extremity: Pulses equal, no cyanosis. Neurovascular intact. Full, normal range of motion. Neuro: Awake and alert, GCS 15, oriented to person, place, time, and situation. Cranial nerves II-XII grossly intact. Motor strength 5/5 in all extremities. Sensory grossly intact. Cerebellar exam normal. Normal gait. Psych: Awake, alert, with orientation to person, place and time. Behavior, mood, and affect are within normal limits. 13:04 ECG was reviewed by the Attending Physician. [facility] Vital Signs: 10:30 BP 173 / 112; Pulse 88; Resp 16; Temp 98.3; Pulse Ox 100% on R/A; Weight 63.5 kg; hb Height 5 ft. 4 in. ; Pain 0/10; 11:21 Pulse 77; Resp 18; Pulse Ox 99% on R/A; Pain 0/10; ld1 12:17 BP 190 / 99; Pulse 67; Resp 18; Pulse Ox 99% on R/A; ld1 10:30 Body Mass Index 24.03 (63.50 kg, 162.56 cm) hb 10:30 Pain Scale: Adult hb 11:21 Pain Scale: Adult ld1 MDM: 10:29 Patient medically screened. [facility] 13:00 Differential diagnosis: Differential Diagnosis altered mental status, sepsis, flu. Data [facility] reviewed: vital signs, nurses notes, lab test result(s), EKG, radiologic studies, CT scan. Consideration of Admission/Observation Escalation of care including admission/observation considered. I considered the following discharge prescriptions or medication management in the emergency department Medications were administered in the Emergency Department. See MAR. Independent interpretation of the following test(s) in the Emergency Department EKG: See my EKG interpretation above. Test considered but Not performed: MRI: no mri brain. Historians other than the Patient: patient well informed. 01/30 10: Order name: Basic Metabolic Panel; Complete Time: 12:29 [facility] 01/30 10: Order name: CBC with Diff; Complete Time: 12:29 [facility] 01/30 10:29 Order name: LFT's; Complete Time: 12:29 [facility] 01/30 10:29 Order name: Magnesium; Complete Time: 12:29 [facility] 01/30 10:29 Order name: NT PRO-BNP; Complete Time: 12:29 [facility] 01/30 10:29 Order name: PT-INR; Complete Time: 12:29 [facility] 01/30 10:29 Order name: Troponin HS; Complete Time: 12:29 [facility] 01/30 10:29 Order name: Urinalysis w/ reflexes [facility] 01/30 10:46 Order name: Glucose, Ancillary Testing; Complete Time: 12:29 EDMS 01/30 10:29 Order name: XRAY Chest (1 view); Complete Time: 12:29 [facility] 01/30 10:29 Order name: CT Head Brain wo Cont; Complete Time: 12:29 [facility] 01/30 10:29 Order name: EKG; Complete Time: 10:30 [facility] 01/30 10:29 Order name: Cardiac monitoring; Complete Time: 11:21 [facility] 01/30 10:29 Order name: EKG - Nurse/Tech; Complete Time: 11:19 [facility] 01/30 10:29 Order name: IV Saline Lock; Complete Time: 11:21 [facility] 01/30 10:29 Order name: Labs collected and sent; Complete Time: 11: [facility] 01/30 10:29 Order name: O2 Per Protocol; Complete Time: 10:44 [facility] 01/30 10:29 Order name: O2 Sat Monitoring; Complete Time: 10:44 [facility] EC:04 Rate is 77 beats/min. Rhythm is regular. QRS [place] is Normal. AR interval is normal. QRS anita interval is normal. QT interval is normal. No Q waves. T waves are Normal. No ST changes noted. Clinical impression: Normal ECG and No evidence of ischemia. Interpreted by me. Reviewed by me. Administered Medications: 11:21 Drug: NS 0.9% IV 1000 ml IV at 1 bolus Per protocol; 1000 mL bolus Route: IV; Rate: 1 ld1 bolus; Site: left forearm; 12:51 Drug: Insulin Glargine Sub-Q 30 units Sub-Q once {Co-Signature: ll1 (Francis Ansari RN).} Route: Sub-Q; Site: left upper arm; Disposition Summary: 01/31/24 13:02 Discharge Ordered Notes: Location: Home anita Problem: new anita Symptoms: have improved anita Condition: Stable anita Diagnosis - Type 2 diabetes mellitus with hyperglycemia anita - Other visual disturbances - blurry anita Followup: anita - With: Private Physician - When: 2 - 3 days - Reason: Recheck today's complaints, Continuance of care, Re-evaluation by your physician Followup: anita - With: Apolinar Smith - When: 2 - 3 days - Reason: Recheck today's complaints, Re-evaluation by your physician Discharge Instructions: - Discharge Summary Sheet anita - Blurred Vision, Adult anita - Type 2 Diabetes Mellitus, Diagnosis, Adult anita - Hyperglycemia anita - Diabetes Mellitus and Nutrition, Adult anita Forms: - Medication Reconciliation Form anita - Thank You Letter anita - Antibiotic Education anita - Prescription Opioid Use anita - Patient Portal Instructions anita - Leadership Thank You Letter anita - Work release form ld1 Signatures: Dispatcher [employer] Matthieu Dunn MD MD cha Baxter, Heather, RN RN Dilma Ghotra RN RN ld1 Francis Ansari RN ll1
--- NOTE | 2024-01-31 13:02 | ER ---
Nurse's Notes [facility] Name: Jaleel Olivas Age: 43 yrs Sex: Male : 1980 Arrival Date: 01/31/2024 Time: 10:25 Bed 16 Private MD: Apolinar Smith Diagnosis: Type 2 diabetes mellitus with hyperglycemia;Other visual disturbances-blurry Presentation: 01/30 10:30 Chief complaint: Blurred vision and increased thirst x 3 days, has been out of hb Lisinopril and Trulicity x 2-3 weeks. Coronavirus screen: At this time, the client does not indicate any symptoms associated with coronavirus-19. Ebola Screen: No symptoms or risks identified at this time. Initial Sepsis Screen: Does the patient meet any 2 criteria? No. Patient's initial sepsis screen is negative. Does the patient have a suspected source of infection? No. Patient's initial sepsis screen is negative. Risk Assessment: Do you want to hurt yourself or someone else? Patient reports no desire to harm self or others. Onset of symptoms was January 29, 2024. 10:30 Method Of Arrival: Ambulatory hb 10:30 Acuity: LARRY 2 hb Triage Assessment: 10:38 General: Appears in no apparent distress. Behavior is calm, cooperative. Pain: Denies hb pain. EENT: Reports blurred vision. Neuro: Level of Consciousness is awake, alert, obeys commands, Oriented to person, place, time, situation. Cardiovascular: Patient's skin is warm and dry. Respiratory: Respiratory effort is even, unlabored, Respiratory pattern is regular, symmetrical. Historical: - Allergies: 10:38 Codeine (Hives); hb 10:38 Tape; hb - Home Meds: 10:38 HIV med [Active]; lisinopril Oral [Active]; Metformin Oral [Active]; Odefsey oral hb [Active]; Trulicity subcutaneous [Active]; - PMHx: 10:38 Diabetes - NIDDM; HIV; Hypertension; hb - PSHx: 10:38 Appendectomy; hb - Immunization history:: Adult Immunizations up to date. - Social history:: Smoking status: Patient denies any tobacco usage or history of. - Family history:: not pertinent. Screenin:21 [facility] ED Fall Risk Assessment (Adult) History of falling in the last 3 months, ld1 including since admission No falls in past 3 months (0 pts). Abuse screen: Denies threats or abuse. Denies injuries from another. Nutritional screening: No deficits noted. Tuberculosis screening: No symptoms or risk factors identified. Assessment: 11:21 General: Appears in no apparent distress. comfortable, Behavior is calm, cooperative, ld1 appropriate for age. Pain: Denies pain. Neuro: Level of Consciousness is awake, alert, obeys commands, Oriented to person, place, time, situation. Neuro: Reports blurred vision since yesterday. Cardiovascular: Capillary refill < 3 seconds Patient's skin is warm and dry. Rhythm is sinus rhythm. Respiratory: Airway is patent Respiratory effort is even, unlabored. GI: Abdomen is flat, non-distended. : No signs and/or symptoms were reported regarding the genitourinary system. EENT: No signs and/or symptoms were reported regarding the EENT system. Derm: No signs and/or symptoms reported regarding the dermatologic system. Musculoskeletal: No signs and/or symptoms reported regarding the musculoskeletal system. 12:17 Reassessment: Patient appears in no apparent distress at this time. No changes from ld1 previously documented assessment. Patient and/or family updated on plan of care and expected duration. Pain level reassessed. Patient is alert, oriented x 3, equal unlabored respirations, skin warm/dry/pink. Vital Signs: 10:30 BP 173 / 112; Pulse 88; Resp 16; Temp 98.3; Pulse Ox 100% on R/A; Weight 63.5 kg; hb Height 5 ft. 4 in. ; Pain 0/10; 11:21 Pulse 77; Resp 18; Pulse Ox 99% on R/A; Pain 0/10; ld1 12:17 BP 190 / 99; Pulse 67; Resp 18; Pulse Ox 99% on R/A; ld1 10:30 Body Mass Index 24.03 (63.50 kg, 162.56 cm) hb 10:30 Pain Scale: Adult hb 11:21 Pain Scale: Adult ld1 ED Course: 10:27 Patient arrived in ED. mr 10:27 Apolinar Smith is Private Physician. mr 10:29 Matthieu Bowen MD is Attending Physician. anita 10:35 Triage completed. hb 10:38 Arm band placed on. hb 10:40 CT Head Brain wo Cont In Process Unspecified. EDMS 10:43 Dilma Ghotra, RN is Primary Nurse. ld1 10:58 XRAY Chest (1 view) In Process Unspecified. EDMS 11:21 Patient has correct armband on for positive identification. Placed in gown. Bed in low ld1 position. Call light in reach. Side rails up X2. security monitor on. Pulse ox on. NIBP on. Door closed. Noise minimized. Warm blanket given. 11:21 Urinalysis w/ reflexes Sent. ld1 11:21 Inserted saline lock: 20 gauge in left forearm, using aseptic technique. Blood ld1 collected. 11:21 No provider procedures requiring assistance completed. ld1 13:01 Apolinar Smith is Referral Physician. anita 13:11 Provided Education on: medication usage. ld1 13:11 IV discontinued, intact, bleeding controlled, No redness/swelling at site. ld1 Administered Medications: 11:21 Drug: NS 0.9% IV 1000 ml IV at 1 bolus Per protocol; 1000 mL bolus Route: IV; Rate: 1 ld1 bolus; Site: left forearm; 12:51 Drug: Insulin Glargine Sub-Q 30 units Sub-Q once {Co-Signature: ll1 (Francis Ansari1 RN).} Route: Sub-Q; Site: left upper arm; Medication: 11:21 VIS not applicable for this client. ld1 Outcome: 13:02 Discharge ordered by . [facility] 13:11 Discharged to home ambulatory, ld1 13:11 Condition: stable 13:11 Discharge instructions given to patient, Instructed on discharge instructions, follow up and referral plans. Demonstrated understanding of instructions, follow-up care, 13:11 Patient left the ED. ld1 Signatures: Dispatcher [employer] EDMS Matthieu Bowen MD MD cha Rivera, Mary, Reg Reg mr AnguianoKathleen, RN RN Dilma Ghotra, NASEEM RN ld1 Francis Ansari RN ll1 Corrections: (The following items were deleted from the chart) 10:38 10:30 Chief complaint: Blurred vision and increased thirst x 3 days, has been out of hb Trulicity x 2-3 weeks. hb
[2024-01-31 13:55] VITALS: BP 190/99; TEMP 98.3; O2SAT 99
--- NOTE | 2024-02-01 14:02 | EKG ---
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
== END ==
LOC: ER 10:25
DX: E11.65 Type 2 diabetes mellitus with hyperglycemia (principal); Z21 Asymptomatic human immunodeficiency virus [HIV] infection status; Z79.899 Other long term (current) drug therapy; I10 Essential (primary) hypertension; Z88.5 Allergy status to narcotic agent; Z91.048 Other nonmedicinal substance allergy status
CPT/HCPCS: 85025; 80048; 36415; 83735; 85610; 82947; 80076; 81003; 84484; 83880; 70450; 71045; J7030; 93005

== ENCOUNTER 2024-10-21 12:13 | Emergency (ER) | payer BC ==
--- OUTSIDE RECORDS SUMMARY | 2024-10-21 12:25 | XMS REPORT | Continuity of Care Document ---
Author Name Unknown Address [address] [facility] [address] [place] [address] [facility] thconnect Address [address] [facility]. [address] [place] [address] Care Team Providers Care Cottage Master Name Role Phone HARDEEP SNOWJULI Primary Care Physician Unavailab APOLINAR Blakely Attending Clinician Unavailable Sammy Romero MD Attending Clinician [phone] Apolinar Lam Attending Clinician [phone] [facility] Attending Clinician Unavailable [facility] Attending Clinician Unavailable Apolinar Lam Attending Clinician [phone] Sammy Romero MD Attending Clinician [phone] Myrna Pratt Attending Clinician Unavailable Visit, [facility] Id Nurse Attending Clinician Unavaila ble Doctor Unassigned, Micco Attending Clinician U Chari Garduno MD Attending Clinician [phone] BRAD HARRIS Attending Clinician Unavailable Regis Amanda RN, Awa Rodriguez Attending Clinician Unava hayde Nurse, Pcp Immunization Attending Clinician Unav Hiram Caruso DO Attending Clinician HIRAM DUPONT Attending Clinician Unavail able Emeka GUSMAN, Cait Attending Clinician Unavailable Adan MERA, Josep Attending Clinician [phone] JOSEP GUERRIER Attending Clinician Unavailable Raquel GUSMAN, Patti Lanza Attending Clinician Unavailab le Only, Ang Db Test Attending Clinician Unavailabl e Unknown, Attending Attending Clinician Unavailab le UNKNOWN, ATTENDING Attending Clinician Unavailab SHAWNEE Tubbs Attending Clinician Unavailabl SEE Mueller Attending Clinician Unavail able FIONA ESCOBEDO Attending Clinician Unavailable Lab, Adc Fam Pob I Attending Clinician Unavailab le Ebrahim BASEBALL SCOUT, Fiona Attending Clinician [phone] Anatoly GUSMAN, Anastasia Edwards Attending Clinician U kristal Pelayo DO, Reid Attending Clinician [phone] ELISA MONTENEGRO Attending Clinician Unavailable Kenia MASSEY, Sheryl Sloan Attending Clinici an Jacky Guadalupe MD Attending Clinician [phone] MARISOL ODONNELL Attending Clinician Unavailable Dvaid BASEBALL SCOUT, Marisol Attending Clinician [phone] Sofya Hightower MA Attending Clinician Unavailab Rupert Rao Attending Clinician [phone] Uzair Sidhu Attending Clinician Melonie vaAraceli Wong Attending Clinician Unavailab Elva Wise Attending Clinician Unavailab tadeo Extra HoursSalo Attending Clinician Unavailab tadeo Posadas MedAdherence, Naomie Zhang Attending Clinici an Unavailable Christopher MedAdherence,, Chuck Attending Clinician Un available David MedAdherence, Jaci Attending Clinicia n Unavailable Zuly MedAdherence,, Marni Attending Clinician Unavailable Admin, Eulogio Attending Clinician Unavailable Caterina Palafox Attending Clinician Unavailable Derick Wilder Attending Clinician Unavailable Agustina Simpson Attending Clinician Unavailable Isabel Wilder Attending Clinician Unavailabl Clarissa Reardon Attending Clinician Unavailabl e Kelli Lyles Attending Clinician Unavaila Dc Darden Attending Clinician [phone] Lizy Mcgregor Attending Clinician [phone] [facility] Attending Clinician Unavailable Vanessa Loomis Attending Clinician Unavailable Marni Sr Attending Clinician Unavailable Elva Brown Attending Clinician Unavailable Denise Wilder Attending Clinician Unavailable Ashlee Verdugo Attending Clinician Unavailable Nestor Guzman Attending Clinician [phone] Silvia Hassan Attending Clinician Unavailable Leticia Linder Attending Clinician Unavailab Valerie Sloan Attending Clinician Unavailable Camila Woodard Attending Clinician [phone] Samantha Cast Attending Clinician Unavailab Kasia Joseph Attending Clinician [phone] Robby Edwards Attending Clinician [phone] Az Islas Attending Clinician UnavailSaloni Samuel Attending Clinician Unavailable Sneha Dan Attending Clinician Unavailable Kiel Billy Attending Clinician Unavailable Casa Riggs Attending Clinician [phone] Shirley Encarnacion Attending Clinician [phone] Maribeth Abad Attending Clinician Unavailable Julio Govea Attending Clinician Unavailable Kaleigh Finney Attending Clinician Unavailable Carlos Alberto Bowen Attending Clinician Unavailable Nitza Alex Attending Clinician [phone] Wan Jeromeh Attending Clinician Un available Amanda Fuentes Attending Clinician [phone] Yolie Santiago Attending Clinician Unavailable Ameena Stringer Attending Clinician Unavailable Ivory Fontanez Attending Clinician [phone] Jamal Zelaya Attending Clinician [phone] Alejandro Saenz Attending Clinician Unavailable MARISOL ODONNELL Admitting Clinician Unavailable Rupert Tiwari Unavailable [phone] Dc Guerrero Unavailable [phone] Casa Riggs Unavailable [phone] Payers Payer Name Policy Type Policy Number Effective Date Expirati on Date Source AETNA [facility] CARE [id number] 2017 00:00:00 AGENCY GENERIC [id number] 2019 00:00:00 [employer] [id number] 2024 00:00:00 2024 00:00:00 AETNA 11 [id number] 2019 00:00:00 2020 00:00:00 [facility] AETNA 11 [id number] 2019 00:00:00 2020 00:00:00 [facility] AETNA CI [id number] 2019 00:00:00 2020 00:00:00 [facility] AETNA 11 [id number] 2018 00:00:00 2019 00:00:00 [facility] AETNA 11 [id number] 2016 00:00:00 2017 00:00:00 [facility] AETNA 11 [id number] 2012 00:00:00 2017 00:00:00 [facility] Problems Condition Name Condition Details Condition Category Status Onset Date Resolution Date Last Treatment Date Treating Clinician Comments Source abscess, perianal Condition Active 04-26 00:00: 00 2019-04-26 16:07:35 Rupert Tiwari MyaSaludFÁCIL [facility] Diabetes mellitus, type II Condition Active 04-17 00:00: 00 2017-12-21 10:15:14 Rupert Tiwari [facility] Hyperlipid emia Condition Active 2015-11 00:00: 00 2017-07-20 20:06:19 Rupert Tiwari [facility] Preventive health care Condition Active 2015-11 00:00: 00 2017-04-17 11:44:53 Rupert Tiwari [facility] ANXIETY DISORDER, UNSPECIFIE D Condition Active 07-21 00:00: 00 2016-09-21 09:37:47 Dc Guerrero [facility] Hallucinat ions Condition Active 06-09 00:00: 00 2016-09-21 09:37:47 Dc Guerrero [facility] HEPATITIS B, CHRONIC Condition Active 05-06 00:00: 00 2017-04-17 11:44:53 Rupert Tiwari [facility] PTSD Condition Active 05-06 00:00: 00 2016-09-21 09:37:47 Rupert Tiwari [facility] Intractabl e diarrhea Intractabl e diarrhea Disease Active 11-29 00:00: 00 [facility] Hypertrigl yceridemia Hypertrigl yceridemia Disease Active 02-06 00:00: 00 [facility] Depressive disorder Depressive disorder Disease Active 08-01 00:00: 00 Overview: Formattin g of this note might be different from the original. 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 d 12-09 00:00: 00 2012-05-30 00:00:00 2012-05-30 16:49:11 [facility] Early syphilis, other primary syphilis Early syphilis, other primary syphilis Disease Resolve d 04-06 00:00: 00 2012-02-29 00:00:00 2012-02-29 10:44:35 [facility] HCV (hepatitis C virus) HCV (hepatitis C virus) Disease Resolve d 04-06 00:00: 00 2011-10-24 00:00:00 2011-10-24 14:03:12 [facility] History of Past Illness Condition Name Condition Details Condition Category Status Onset Date Resolution Date Last Treatment Date Treating Clinician Comments Source Regular astigmatis m, bilateral Condition Inactiv e 06-09 00:00: 00 2017-12-21 00:00:00 2017-12-21 10:31:37 Rupert Tiwari Adair Pro[facility] Myopia - OU Condition Inactiv e 06-09 00:00: 00 2017-12-21 00:00:00 2017-12-21 10:31:37 [facility] Screening examinatio n for other specified viral diseases Condition Inactiv e 06-09 00:00: 00 2016-06-16 00:00:00 2016-06-09 09:56:49 Casa Riggs [facility] SPECIAL SCREENING EXAMINATIO N OTH SPEC VIRAL DZ Condition Inactiv e 2011-11 00:00: 00 2016-05-06 00:00:00 2016-05-06 10:53:58 Rupert Tiwari Adair [facility] MYOPIA Condition Inactiv e 2011-11 00:00: 00 2016-05-06 00:00:00 2016-05-06 10:53:58 Karie Rupert Borrero Pro[facility] ASTIGMATIS M Condition Inactiv e 2011-11 00:00: 00 2016-05-06 00:00:00 2016-05-06 10:53:58 Rupert Tiwari [facility] Allergies, Adverse Reactions, Alerts Allergy Name Allergy Type Status Severity Reaction(s) Onset Date Inactive Date Treating Clinician Comments Source CODEINE Drug allergy (disorde r) Active Low Criticali ty rash 2011-11 00:00: 00 [email or web address] CODEINE DRUG INGREDI Active High Rash 04-06 00:00: 00 [facility] Codeine Propensi ty to adverse reaction s to drug Active Rash 04-06 00:00: 00 [facility] Social History Social Habit Start Date Stop Date Quantity Comments Source Sexual orientation [facility] History of Social function 2024-09-18 00:00:00 2024-09-18 00:00:00 [facility] Alcoholic beverage intake 2024-09-18 00:00:00 2024-09-18 00:00:00 Current non-drinker of alcohol (finding) [facility] Cigarettes smoked current (pack per day) - Reported 2024-05-27 00:00:00 2024-05-27 00:00:00 [facility] Cigarette pack-years 2024-05-27 00:00:00 2024-05-27 00:00:00 [facility] Tobacco use and exposure 2024-05-27 00:00:00 2024-05-27 00:00:00 Smokeless tobacco non-user [facility] Alcohol intake 2023-11-28 00:00:00 2023-11-28 00:00:00 Current non-drinker of alcohol (finding) [facility] Exposure to SARS-CoV-2 (event) 2023-04-07 00:00:00 2023-04-17 11:19:00 Not sure [facility] albumin, serum 2019-11-02 11:10:00 2019-11-02 11:10:00 4.3 g/dL [facility] drug use 2019-04-26 15:28:24 2019-04-26 15:28:24 Never [facility] alcohol use 2019-04-26 15:28:24 2019-04-26 15:28:24 Currently [facility] social history reviewed E&M 2019-04-26 15:28:24 2019-04-26 15:28:24 reviewed today [facility] social history E&M 2019-04-26 15:28:24 2019-04-26 15:28:24 Single. Not homeless. Born in [facility]. City: [place]. State: [place]. Employed full-time. [employer] . Highest education level: some college. Sex at : Male. Sexual orientation: [place]. Gender identity: Male. Gender of partner(s): Male. Age of first sexual intercourse: 16. Sexually Active: No. driven [facility] sexual orientation 2019-04-26 15:28:24 2019-04-26 15:28:24 [place] [facility] PHQ2 Questionairre Score 2019-04-26 15:28:24 2019-04-26 15:28:24 [facility] assessment of health literacy (NCQA PCM 2014 Standards, 3C10) 2019-04-26 15:28:24 2019-04-26 15:28:24 Adequate [facility] time of call 2019-04-25 11:55:04 2019-04-25 11:55:04 04/25/2019 11:55 AM [facility] smoking, advice to quit 2017-04-17 10:47:27 2017-04-17 10:47:27 Yes [facility] cigarettes, number smoked per day 2016-09-21 09:13:37 2016-09-21 09:13:37 [facility] age when patient began smoking 2016-09-14 10:38:38 2016-09-14 10:38:38 [facility] tobacco use (cigarettes, cigar, chew, pipe) 2016-09-14 10:38:38 2016-09-14 10:38:38 Currently [facility] alcohol use, frequency 2016-06-09 11:43:33 2016-06-09 11:43:33 few times per month [facility] home/family situation, assessment 2016-06-09 11:43:33 2016-06-09 11:43:33 LIves with sister and his father and her 2 sons.Counts on them for work. [facility] family support 2016-06-09 11:43:33 2016-06-09 11:43:33 Grew up in a two parent family with a younger sister. Father was a [employer] employee and mother worked as a postal employee mother of scleroderma. [facility] Occupation #1 2016-05-06 09:53:46 2016-05-06 09:53:46 [employer] [facility] alcohol use, number maximum drinks per occasion 2016-05-06 09:53:46 2016-05-06 09:53:46 9 drinks per month [facility] smoking, year quit 2016-05-06 09:53:46 2016-05-06 09:53:46 [facility] sex at 2016-05-06 09:53:46 2016-05-06 09:53:46 Male [facility] patient considered to be homeless 2016-05-06 09:53:46 2016-05-06 09:53:46 No [facility] History of tobacco use 2006-12-07 00:00:00 2013-12-07 00:00:00 Cigarette Smoker [facility] Sex assigned at 1980 00:00:00 1980 00:00:00 [facility] Smoking Status Start Date Stop Date Source Ex-smoker 2024-05-27 00:00:00 2024-05-27 00:00:00 [facility] Smokes tobacco daily (finding) 2017-04-17 10:47:27 [facility] Occasional tobacco smoker (finding) 2016-09-14 10:38:38 [facility] Never smoked tobacco (finding) [facility] Medications Ordered Medication Name Filled Medication Name Start Date Stop Date Current Medication? Ordering Clinician Indication Dosage Frequency Signature (SIG) Comments Components Source flash glucose sensor (FREESTYLE HELEN 14 DAY SENSOR) Kit 2023-11 00:00: 00 Yes [id number] Check glucose TID and qHS [facility] LISINOPRIL 40 mg tablet 2023-11 00:00: 00 Yes [id number] 40mg TAKE ONE TABLET BY MOUTH DAILY [facility] TRULICITY 3 mg/0.5 mL PnIj 2023-11 00:00: 00 Yes [id number] 3mg INJECT 1 PEN UNDER THE SKIN WEEKLY. [facility] metformin ER 500 mg 24 hr tablet 2023-11 00:00: 00 Yes [id number] Take 4 tabs once daily [facility] fenofibrate 48 mg tablet 2023-11 00:00: 00 Yes [id number] 48mg Take 1 tablet by mouth in the morning. [facility] bictegrav-e mtricit-ten ofov ala (BIKTARVY) 50-200-25 mg tablet 2023-11 00:00: 00 Yes [id number] 1{tbl} Take 1 tablet by mouth in the morning. [facility] BIKTARVY 50-200-25 mg tablet 8-06 00:00: 00 09-25 00:00 :00 No [id number] 1{tbl} Take 1 tablet by mouth in the morning. [facility] flash glucose sensor (FREESTYLE HELNE 14 DAY SENSOR) Kit 3-11 00:00: 00 09-25 00:00 :00 No [id number] USE DIRECT EVERY 14 DAY [facility] metformin ER 500 mg 24 hr tablet 3-08 00:00: 00 09-25 00:00 :00 No [id number] Take 4 tabs once daily [facility] fenofibrate 48 mg tablet 3-08 00:00: 00 09-25 00:00 :00 No [id number] 48mg Take 1 tablet by mouth in the morning. [facility] dulaglutide (TRULICITY) 3 mg/0.5 mL PnIj 3-08 00:00: 00 09-25 00:00 :00 No [id number] 3mg inject 1 Pen under the skin weekly. [facility] lisinopriL 40 mg tablet 3-08 00:00: 00 09-25 00:00 :00 No [id number] 40mg Take 1 tablet by mouth in the morning. [facility] emtricitab- rilpivir-te nofo ala (ODEFSEY) 200-25-25 mg Tab 3-08 00:00: 00 06-11 00:00 :00 No [id number] 1{tbl} Take 1 tablet by mouth in the morning. [facility] LISINOPRIL 40 mg tablet 2022-11 1-16 00:00: 00 01-09 00:00 :00 No [id number] TAKE ONE TABLET BY MOUTH DAILY [facility] emtricitab- rilpivir-te nofo ala (ODEFSEY) 200-25-25 mg Tab 9-27 00:00: 00 01-09 00:00 :00 No [id number] TAKE ONE TABLET BY MOUTH DAILY WITH FOOD [facility] fenofibrate 48 mg tablet 0 6-15 00:00: 00 01-09 00:00 :00 No [id number] TAKE ONE TABLET BY MOUTH DAILY [facility] dulaglutide (TRULICITY) 3 mg/0.5 mL PnIj 2022-0 6-15 00:00: 00 01-09 00:00 :00 No [id number] 3mg inject 1 Pen under the skin weekly. [facility] metformin ER 500 mg 24 hr tablet 6-12 00:00: 00 01-09 00:00 :00 No [id number] Take 4 tabs once daily [facility] dulaglutide (TRULICITY) 1.5 mg/0.5 mL PnIj 0 6-12 00:00: 00 04-20 00:00 :00 No [id number] 1.5mg inject 1 Pen under the skin weekly. [facility] dulaglutide (TRULICITY) 1.5 mg/0.5 mL PnIj 5-25 00:00: 00 04-17 00:00 :00 No [id number] 1.5mg inject 1 Pen under the skin weekly. Please call our office at to schedule your follow up radha menjivar Thank you [facility] flash glucose sensor (FREESTYLE HELEN 14 DAY SENSOR) Kit 4-13 00:00: 00 04-17 00:00 :00 No USE DIRECTED EVERY 14 DAYS [facility] dulaglutide (TRULICITY) 1.5 mg/0.5 mL PnIj 0 2-16 00:00: 00 03-30 00:00 :00 No [id number] INJECT 1.5MG UNDER THE SKIN WEEKLY [facility] FENOFIBRATE 48 mg tablet 1-19 00:00: 00 04-20 00:00 :00 No [id number] TAKE ONE TABLET BY MOUTH DAILY [facility] TRULICITY 1.5 mg/0.5 mL PnIj 2021-11 2-21 00:00: 00 12-22 00:00 :00 No [id number] INJECT 1.5MG UNDER THE SKIN WEEKLY [facility] lisinopriL 40 mg tablet 2021-11 1-07 00:00: 00 09-21 00:00 :00 No [id number] TAKE ONE TABLET BY MOUTH DAILY [facility] TRULICITY 1.5 mg/0.5 mL PnIj 0 9-28 00:00: 00 10-26 00:00 :00 No [id number] INJECT 1.5MG UNDER THE SKIN WEEKLY [facility] ODEFSEY 200-25-25 mg Tab 07-15 00:00: 00 08-02 00:00 :00 No [id number] TAKE ONE TABLET BY MOUTH DAILY WITH FOOD [facility] metFORMIN 1,000 mg tablet 07-15 00:00: 04-17 00:00 :00 No [id number] TAKE ONE TABLET BY MOUTH TWICE A DAY [facility] FENOFIBRATE 48 mg tablet 07-15 00:00: 00 11-24 00:00 :00 No [id number] TAKE ONE TABLET BY MOUTH DAILY [facility] lisinopriL 20 mg tablet 07-15 00:00: 00 09-12 00:00 :00 No [id number] TAKE ONE TABLET BY MOUTH DAILY [facility] FREESTYLE HELEN 14 DAY SENSOR Kit 05-10 00:00: 00 02-16 00:00 :00 No USE DIRECTED EVERY 14 DAYS [facility] TRULICITY 1.5 mg/0.5 mL PnIj 04-14 00:00: 00 08-03 00:00 :00 No [id number] INJECT 1.5MG UNDER THE SKIN WEEKLY [facility] ODEFSEY 200-25-25 mg Tab 01-10 00:00: 00 Yes [id number] TAKE 1 TABLET BY MOUTH EVERY DAY WITH FOOD [facility] lisinopriL 20 mg tablet 01-10 00:00: 00 Yes [id number] TAKE 1 TABLET BY MOUTH EVERY DAY [facility] metFORMIN 1,000 mg tablet 01-10 00:00: 00 Yes [id number] TAKE 1 TABLET BY MOUTH TWICE A DAY [facility] FENOFIBRATE 48 mg tablet 01-07 00:00: 00 Yes [id number] TAKE ONE TABLET BY MOUTH DAILY [facility] ondansetron (ZOFRAN ODT) 8 mg disintegrat ing tablet 2020-11 0-14 00:00: 00 04-25 00:00 :00 No [id number] 8mg Take 1 tablet by mouth every 8 (eight) hours as needed for Nausea and Vomiting (N/V). [facility] flash glucose scanning reader (FREESTYLE HELEN 14 DAY READER) [facility] 6 00:00: 00 04-17 00:00 :00 No [id number] 1{kit} 1 Kit as needed (to check glucose levels). [facility] lamoTRIgine 25 mg tablet 4- 00:00: 00 04-25 00:00 :00 No 25mg Take 25 mg by mouth daily. [facility] COMPLERA (EMTRICITAB -RILPIVIR-T ENOFOVIR) 200-25-300 MG TABS 2018-11 00:00: 00 Yes Rupert Tiwari TAKE ONE TABLET BY MOUTH ONCE DAILY WITH FOOD. STORE IN ORIGINAL BOTTLE AT [facility] ([facility]ISIN[facility]RIL ) 20 MG TABS 05-20 00:00: 00 Yes Rupert Tiwari 1{Table t} 1xD TAKE 1 TABLET BY MOUTH EVERY DAY [facility] [employer] ANTABUSE 250 MG ORAL TABLET 2017-11 00:00: 00 Yes Dc Guerrero 1 1xD 1 By Mouth Every Day [facility] (METFORMIN HCL) 500 MG TABS 04-17 00:00: 00 Yes Rupert Tiwari 1 by mouth twice a day [facility] [employer] (NICOTINE) 21-14-7 MG/24HR KIT 2015-11 00:00: [address] [facility] [employer] LEXAPRO (ESCITALOPR AM OXALATE) 10 MG TABS 07-21 00:00: 00 Yes Dc Albaradoiuddin [address] Mouth Every Day [facility] [employer] RISPERDAL (RISPERIDON E) 2 MG TABS 8-04 00:00: 00 10-25 00:00 :00 No Robby Edwards [address] Mouth at bedtime [facility] [employer] MIRTAZAPINE (MIRTAZAPIN E TABS) TABS 2011-1 -11 00:00: 00 10-25 00:00 :00 No [facility] Immunizations Ordered Immunization Name Filled Immunization Name Date Status Comments Source Flu Injectable MDCK Pres-Free (FLUCELVAX) 2024-09-18 00:00:00 Completed [facility] SARS-COV-2 COVID 19 MAGALYS SUCROSE VACCINE 12+, [id number], 0.3 ML (30 MCG), IM PFIZER (NAVARRO TOP) 2024-09-18 00:00:00 Completed [facility]AP 2024-09-18 00:00:00 Completed Influenza Virus Vaccine Quad IM, Preserv and ABX Free 6 MO-64 YRS (FLUCELVAX) 2023-11-28 00:00:00 Completed [facility] SARS-COV-2 COVID 19 MAGALYS SUCROSE VACCINE 12+, [id number], 0.3 ML (30 MCG), IM PFIZER (NAVARRO TOP) 2023-11-28 00:00:00 Completed VACCINIA, SMALLPOX MONKEYPOX VACCINE LIVE, ADULT LOW DOSE 0.1ML, PF,ID 2022-10-11 00:00:00 Completed [facility] SMALLPOX MONKEYPOX VACCINE LIVE JYNNEOS, ADULT LOW DOSE 0.1ML, PF,ID 2022-10-11 00:00:00 Completed [facility] SMALLPOX MONKEYPOX VACCINE LIVE JYNNEOS, ADULT LOW DOSE 0.1ML, PF,ID 2022-10-11 00:00:00 Completed [facility] SMALLPOX MONKEYPOX VACCINE LIVE JYNNEOS, ADULT LOW DOSE 0.1ML, PF,ID 2022-10-11 00:00:00 Completed [facility] SMALLPOX MONKEYPOX VACCINE LIVE JYNNEOS, ADULT LOW DOSE 0.1ML, PF,ID 2022-10-11 00:00:00 Completed [facility] SMALLPOX MONKEYPOX VACCINE LIVE JYNNEOS, ADULT LOW DOSE 0.1ML, PF,ID 2022-10-11 00:00:00 Completed [facility] SMALLPOX MONKEYPOX VACCINE LIVE JYNNEOS, ADULT LOW DOSE 0.1ML, PF,ID 2022-10-11 00:00:00 Completed [facility] SMALLPOX MONKEYPOX VACCINE LIVE JYNNEOS, ADULT LOW DOSE 0.1ML, PF,ID 2022-10-11 00:00:00 Completed [facility] SMALLPOX MONKEYPOX VACCINE LIVE JYNNEOS, ADULT LOW DOSE 0.1ML, PF,ID 2022-10-11 00:00:00 Completed [facility] SMALLPOX MONKEYPOX VACCINE LIVE JYNNEOS, ADULT LOW DOSE 0.1ML, PF,ID 2022-10-11 00:00:00 Completed [facility] SMALLPOX MONKEYPOX VACCINE LIVE JYNNEOS, ADULT LOW DOSE 0.1ML, PF,ID 2022-10-11 00:00:00 Completed Influenza Virus Vaccine Quad IM, Preserv and ABX Free 6 MO-64 YRS 2022-09-12 00:00:00 Completed [facility] SARS-COV-2 COVID-19 VACCINE 12 YRS+, BIVALENT 0.5ML, IM, (MODERNA BOOSTER) 2022-09-12 00:00:00 Completed [facility] VACCINIA, SMALLPOX MONKEYPOX VACCINE LIVE, 0.5ML, PF,SQ 2022-09-12 00:00:00 Completed [facility] Influenza Virus Vaccine Quad IM, Preserv and ABX Free 6 MO-64 YRS 2022-09-12 00:00:00 Completed [facility] SARS-COV-2 COVID-19 VACCINE 12 YRS+, BIVALENT 0.5ML, IM, (MODERNA BOOSTER) 2022-09-12 00:00:00 Completed [facility] VACCINIA, SMALLPOX MONKEYPOX VACCINE LIVE, 0.5ML, PF,SQ 2022-09-12 00:00:00 Completed [facility] Influenza Virus Vaccine Quad IM, Preserv and ABX Free 6 MO-64 YRS 2022-09-12 00:00:00 Completed [facility] SARS-COV-2 COVID-19 VACCINE 12 YRS+, BIVALENT 0.5ML, IM, (MODERNA BOOSTER) 2022-09-12 00:00:00 Completed [facility] [facility] SMALLPOX MONKEYPOX VACCINE LIVE, 0.5ML, PF,SQ 2022-09-12 00:00:00 Completed [facility] Influenza Virus Vaccine Quad IM, Preserv and ABX Free 6 MO-64 YRS 2022-09-12 00:00:00 Completed [facility] SARS-COV-2 COVID-19 VACCINE 12 YRS+, BIVALENT 0.5ML, IM, (MODERNA BOOSTER) 2022-09-12 00:00:00 Completed [facility] VACCINIA, SMALLPOX MONKEYPOX VACCINE LIVE, 0.5ML, PF,SQ 2022-09-12 00:00:00 Completed [facility] Influenza Virus Vaccine Quad IM, Preserv and ABX Free 6 MO-64 YRS 2022-09-12 00:00:00 Completed [facility] SARS-COV-2 COVID-19 VACCINE 12 YRS+, BIVALENT 0.5ML, IM, (MODERNA BOOSTER) 2022-09-12 00:00:00 Completed [facility] SMALLPOX MONKEYPOX VACCINE LIVE JYNNEOS, 0.5ML,PF,SQ 2022-09-12 00:00:00 Completed [facility] Influenza Virus Vaccine Quad IM, Preserv and ABX Free 6 MO-64 YRS 2022-09-12 00:00:00 Completed [facility] SARS-COV-2 COVID-19 VACCINE 12 YRS+, BIVALENT 0.5ML, IM, (MODERNA BOOSTER) 2022-09-12 00:00:00 Completed [facility] SMALLPOX MONKEYPOX VACCINE LIVE JYNNEOS, 0.5ML,PF,SQ 2022-09-12 00:00:00 Completed [facility] Influenza Virus Vaccine Quad IM, Preserv and ABX Free 6 MO-64 YRS 2022-09-12 00:00:00 Completed [facility] SARS-COV-2 COVID-19 VACCINE 12 YRS+, BIVALENT 0.5ML, IM, (MODERNA BOOSTER) 2022-09-12 00:00:00 Completed [facility] SMALLPOX MONKEYPOX VACCINE LIVE JYNNEOS, 0.5ML,PF,SQ 2022-09-12 00:00:00 Completed [facility] Influenza Virus Vaccine Quad IM, Preserv and ABX Free 6 MO-64 YRS 2022-09-12 00:00:00 Completed [facility] SARS-COV-2 COVID-19 VACCINE 12 YRS+, BIVALENT 0.5ML, IM, (MODERNA BOOSTER) 2022-09-12 00:00:00 Completed [facility] SMALLPOX MONKEYPOX VACCINE LIVE JYNNEOS, 0.5ML,PF,SQ 2022-09-12 00:00:00 Completed [facility] Influenza Virus Vaccine Quad IM, Preserv and ABX Free 6 MO-64 YRS 2022-09-12 00:00:00 Completed [facility] SARS-COV-2 COVID-19 VACCINE 12 YRS+, BIVALENT 0.5ML, IM, (MODERNA BOOSTER) 2022-09-12 00:00:00 Completed [facility] SMALLPOX MONKEYPOX VACCINE LIVE JYNNEOS, 0.5ML,PF,SQ 2022-09-12 00:00:00 Completed [facility] Influenza Virus Vaccine Quad IM, Preserv and ABX Free 6 MO-64 YRS 2022-09-12 00:00:00 Completed [facility] SARS-COV-2 COVID-19 VACCINE 12 YRS+, BIVALENT 0.5ML, IM, (MODERNA-BLUE TOP) 2022-09-12 00:00:00 Completed [facility] SMALLPOX MONKEYPOX VACCINE LIVE JYNNEOS, 0.5ML,PF,SQ 2022-09-12 00:00:00 Completed [facility] Influenza Virus Vaccine Quad IM, Preserv and ABX Free 6 MO-64 YRS 2022-09-12 00:00:00 Completed [facility] SARS-COV-2 COVID-19 VACCINE 12 YRS+, BIVALENT 0.5ML, IM, (MODERNA-BLUE TOP) 2022-09-12 00:00:00 Completed [facility] SMALLPOX MONKEYPOX VACCINE LIVE JYNNEOS, 0.5ML,PF,SQ 2022-09-12 00:00:00 Completed [facility] Influenza Virus Vaccine Quad IM, Preserv and ABX Free 6 MO-64 YRS 2022-09-12 00:00:00 Completed [facility] SARS-COV-2 COVID-19 VACCINE 12 YRS+, BIVALENT 0.5ML, IM, (MODERNA-BLUE TOP) 2022-09-12 00:00:00 Completed [facility] SMALLPOX MONKEYPOX VACCINE LIVE JYNNEOS, 0.5ML,PF,SQ 2022-09-12 00:00:00 Completed [facility] Influenza Virus Vaccine Quad IM, Preserv and ABX Free 6 MO-64 YRS 2022-09-12 00:00:00 Completed [facility] SARS-COV-2 COVID-19 VACCINE 12 YRS+, BIVALENT 0.5ML, IM, (MODERNA-BLUE TOP) 2022-09-12 00:00:00 Completed [facility] SMALLPOX MONKEYPOX VACCINE LIVE JYNNEOS, 0.5ML,PF,SQ 2022-09-12 00:00:00 Completed [facility] Influenza Virus Vaccine Quad IM, Preserv and ABX Free 6 MO-64 YRS 2022-09-12 00:00:00 Completed [facility] SARS-COV-2 COVID-19 VACCINE 12 YRS+, BIVALENT 0.5ML, IM, (MODERNA-BLUE TOP) 2022-09-12 00:00:00 Completed [facility] SMALLPOX MONKEYPOX VACCINE LIVE JYNNEOS, 0.5ML,PF,SQ 2022-09-12 00:00:00 Completed [facility] Influenza Virus Vaccine Quad IM, Preserv and ABX Free 6 MO-64 YRS (FLUCELVAX) 2022-09-12 00:00:00 Completed [facility] SARS-COV-2 COVID-19 VACCINE 12 YRS+, BIVALENT 0.5ML, IM, (MODERNA-BLUE TOP) 2022-09-12 00:00:00 Completed SMALLPOX MONKEYPOX VACCINE LIVE JYNNEOS, 0.5ML,PF,SQ 2022-09-12 00:00:00 Completed Meningococcal Polysaccharide (groups A, C, Y and W-135) conjugate vaccine (MCV4P) 2022-04-25 00:00:00 Completed [facility] Meningococcal Polysaccharide (groups A, C, Y and W-135) conjugate vaccine (MCV4P) 2022-04-25 00:00:00 Completed [facility] Meningococcal Polysaccharide (groups A, C, Y and W-135) conjugate vaccine (MCV4P) 2022-04-25 00:00:00 Completed [facility] Meningococcal Polysaccharide (groups A, C, Y and W-135) conjugate vaccine (MCV4P) 2022-04-25 00:00:00 Completed [facility] Meningococcal Polysaccharide (groups A, C, Y and W-135) conjugate vaccine (MCV4P) 2022-04-25 00:00:00 Completed [facility] Meningococcal Polysaccharide (groups A, C, Y and W-135) conjugate vaccine (MCV4P) 2022-04-25 00:00:00 Completed [facility] Meningococcal Polysaccharide (groups A, C, Y and W-135) conjugate vaccine (MCV4P) 2022-04-25 00:00:00 Completed [facility] Meningococcal Polysaccharide (groups A, C, Y and W-135) conjugate vaccine (MCV4P) 2022-04-25 00:00:00 Completed [facility] Meningococcal Polysaccharide (groups A, C, Y and W-135) conjugate vaccine (MCV4P) 2022-04-25 00:00:00 Completed [facility] Meningococcal Polysaccharide (groups A, C, Y and W-135) conjugate vaccine (MCV4P) 2022-04-25 00:00:00 Completed [facility] Meningococcal Polysaccharide (groups A, C, Y and W-135) conjugate vaccine (MCV4P) 2022-04-25 00:00:00 Completed [facility] Meningococcal Polysaccharide (groups A, C, Y and W-135) conjugate vaccine (MCV4P) 2022-04-25 00:00:00 Completed [facility] Meningococcal Polysaccharide (groups A, C, Y and W-135) conjugate vaccine (MCV4P) 2022-04-25 00:00:00 Completed [facility] Meningococcal Polysaccharide (groups A, C, Y and W-135) conjugate vaccine (MCV4P) 2022-04-25 00:00:00 Completed [facility] Meningococcal Polysaccharide (groups A, C, Y and W-135) conjugate vaccine (MCV4P) 2022-04-25 00:00:00 Completed [facility] Meningococcal Polysaccharide (groups A, C, Y and W-135) conjugate vaccine (MCV4P) 2022-04-25 00:00:00 Completed [facility] Meningococcal Polysaccharide (groups A, C, Y and W-135) conjugate vaccine (MCV4P) 2022-04-25 00:00:00 Completed [facility] Meningococcal Polysaccharide (groups A, C, Y and W-135) conjugate vaccine (MCV4P) 2022-04-25 00:00:00 Completed [facility] Meningococcal Polysaccharide (groups A, C, Y and W-135) conjugate vaccine (MCV4P) 2022-04-25 00:00:00 Completed [facility] Meningococcal Polysaccharide (groups A, C, Y and W-135) conjugate vaccine (MCV4P) 2022-04-25 00:00:00 Completed [facility] Meningococcal Polysaccharide (groups A, C, Y and W-135) conjugate vaccine (MCV4P) 2022-04-25 00:00:00 Completed [facility] SARS-COV-2 COVID-19 MODERNA 0.25ML BOOSTER VACCINE 2021-09-14 00:00:00 Completed [facility] SARS-COV-2 COVID-19 MODERNA 0.25ML BOOSTER VACCINE 2021-09-14 00:00:00 Completed [facility] SARS-COV-2 COVID-19 MODERNA 0.25ML BOOSTER VACCINE 2021-09-14 00:00:00 Completed [facility] SARS-COV-2 COVID-19 MODERNA 0.25ML BOOSTER VACCINE 2021-09-14 00:00:00 Completed [facility] SARS-COV-2 COVID-19 MODERNA 0.25ML BOOSTER VACCINE 2021-09-14 00:00:00 Completed [facility] SARS-COV-2 COVID-19 MODERNA 0.25ML BOOSTER VACCINE 2021-09-14 00:00:00 Completed [facility] SARS-COV-2 COVID-19 MODERNA 0.25ML BOOSTER VACCINE 2021-09-14 00:00:00 Completed [facility] SARS-COV-2 COVID-19 MODERNA 0.25ML BOOSTER VACCINE 2021-09-14 00:00:00 Completed [facility] SARS-COV-2 COVID-19 MODERNA 0.25ML BOOSTER VACCINE 2021-09-14 00:00:00 Completed [facility] SARS-COV-2 COVID-19 MODERNA 0.25ML BOOSTER VACCINE 2021-09-14 00:00:00 Completed [facility] SARS-COV-2 COVID-19 MODERNA 0.25ML BOOSTER VACCINE 2021-09-14 00:00:00 Completed [facility] SARS-COV-2 COVID-19 MODERNA 0.25ML BOOSTER VACCINE 2021-09-14 00:00:00 Completed [facility] SARS-COV-2 COVID-19 MODERNA 0.25ML BOOSTER VACCINE 2021-09-14 00:00:00 Completed [facility] SARS-COV-2 COVID-19 MODERNA 0.25ML BOOSTER VACCINE 2021-09-14 00:00:00 Completed [facility] SARS-COV-2 COVID-19 MODERNA 0.25ML BOOSTER VACCINE 2021-09-14 00:00:00 Completed [facility] SARS-COV-2 COVID-19 MODERNA 0.25ML BOOSTER VACCINE 2021-09-14 00:00:00 Completed [facility] SARS-COV-2 COVID-19 MODERNA 0.25ML BOOSTER VACCINE 2021-09-14 00:00:00 Completed [facility] SARS-COV-2 COVID-19 MODERNA 0.25ML BOOSTER VACCINE 2021-09-14 00:00:00 Completed [facility] SARS-COV-2 COVID-19 MODERNA 0.25ML BOOSTER VACCINE 2021-09-14 00:00:00 Completed [facility] SARS-COV-2 COVID-19 MODERNA 0.25ML BOOSTER VACCINE 2021-09-14 00:00:00 Completed [facility] SARS-COV-2 COVID-19 MODERNA 0.25ML BOOSTER VACCINE 2021-09-14 00:00:00 Completed [facility] Influenza Virus Vaccine Quad IM 6-35 MO 2021-08-11 00:00:00 Completed [facility] Influenza Virus Vaccine Quad IM, Preserv and ABX Free 6 MO-64 YRS 2021-08-11 00:00:00 Completed [facility] Pneumococcal Polysaccharide, PPSV23 (PNEUMOVAX) 2021-08-11 00:00:00 Completed [facility] Influenza Virus Vaccine Quad IM 6-35 MO 2021-08-11 00:00:00 Completed [facility] Influenza Virus Vaccine Quad IM, Preserv and ABX Free 6 MO-64 YRS 2021-08-11 00:00:00 Completed [facility] Pneumococcal Polysaccharide, PPSV23 (PNEUMOVAX) 2021-08-11 00:00:00 Completed [facility] Influenza Virus Vaccine Quad IM 6-35 MO 2021-08-11 00:00:00 Completed [facility] Influenza Virus Vaccine Quad IM, Preserv and ABX Free 6 MO-64 YRS 2021-08-11 00:00:00 Completed [facility] Pneumococcal Polysaccharide, PPSV23 (PNEUMOVAX) 2021-08-11 00:00:00 Completed [facility] Influenza Virus Vaccine Quad IM 6-35 MO 2021-08-11 00:00:00 Completed [facility] Influenza Virus Vaccine Quad IM, Preserv and ABX Free 6 MO-64 YRS 2021-08-11 00:00:00 Completed [facility] Pneumococcal Polysaccharide, PPSV23 (PNEUMOVAX) 2021-08-11 00:00:00 Completed [facility] Influenza Virus Vaccine Quad IM 6-35 MO 2021-08-11 00:00:00 Completed [facility] Influenza Virus Vaccine Quad IM, Preserv and ABX Free 6 MO-64 YRS 2021-08-11 00:00:00 Completed [facility] Pneumococcal Polysaccharide, PPSV23 (PNEUMOVAX) 2021-08-11 00:00:00 Completed [facility] Influenza Virus Vaccine Quad IM 6-35 MO 2021-08-11 00:00:00 Completed [facility] Influenza Virus Vaccine Quad IM, Preserv and ABX Free 6 MO-64 YRS 2021-08-11 00:00:00 Completed [facility] Pneumococcal Polysaccharide, PPSV23 (PNEUMOVAX) 2021-08-11 00:00:00 Completed [facility] Influenza Virus Vaccine Quad IM 6-35 MO 2021-08-11 00:00:00 Completed [facility] Influenza Virus Vaccine Quad IM, Preserv and ABX Free 6 MO-64 YRS 2021-08-11 00:00:00 Completed [facility] Pneumococcal Polysaccharide, PPSV23 (PNEUMOVAX) 2021-08-11 00:00:00 Completed [facility] Influenza Virus Vaccine Quad IM 6-35 MO 2021-08-11 00:00:00 Completed [facility] Influenza Virus Vaccine Quad IM, Preserv and ABX Free 6 MO-64 YRS 2021-08-11 00:00:00 Completed [facility] Pneumococcal Polysaccharide, PPSV23 (PNEUMOVAX) 2021-08-11 00:00:00 Completed [facility] Influenza Virus Vaccine Quad IM 6-35 MO 2021-08-11 00:00:00 Completed [facility] Influenza Virus Vaccine Quad IM, Preserv and ABX Free 6 MO-64 YRS 2021-08-11 00:00:00 Completed [facility] Pneumococcal Polysaccharide, PPSV23 (PNEUMOVAX) 2021-08-11 00:00:00 Completed [facility] Influenza Virus Vaccine Quad IM 6-35 MO 2021-08-11 00:00:00 Completed [facility] Influenza Virus Vaccine Quad IM, Preserv and ABX Free 6 MO-64 YRS 2021-08-11 00:00:00 Completed [facility] Pneumococcal Polysaccharide, PPSV23 (PNEUMOVAX) 2021-08-11 00:00:00 Completed [facility] Influenza Virus Vaccine Quad IM 6-35 MO 2021-08-11 00:00:00 Completed [facility] Influenza Virus Vaccine Quad IM, Preserv and ABX Free 6 MO-64 YRS 2021-08-11 00:00:00 Completed [facility] Pneumococcal Polysaccharide, PPSV23 (PNEUMOVAX) 2021-08-11 00:00:00 Completed [facility] Influenza Virus Vaccine Quad IM 6-35 MO 2021-08-11 00:00:00 Completed [facility] Influenza Virus Vaccine Quad IM, Preserv and ABX Free 6 MO-64 YRS 2021-08-11 00:00:00 Completed [facility] Pneumococcal Polysaccharide, PPSV23 (PNEUMOVAX) 2021-08-11 00:00:00 Completed [facility] Influenza Virus Vaccine Quad IM 6-35 MO 2021-08-11 00:00:00 Completed [facility] Influenza Virus Vaccine Quad IM, Preserv and ABX Free 6 MO-64 YRS 2021-08-11 00:00:00 Completed [facility] Pneumococcal Polysaccharide, PPSV23 (PNEUMOVAX) 2021-08-11 00:00:00 Completed [facility] Influenza Virus Vaccine Quad IM 6-35 MO 2021-08-11 00:00:00 Completed [facility] Influenza Virus Vaccine Quad IM, Preserv and ABX Free 6 MO-64 YRS 2021-08-11 00:00:00 Completed [facility] Pneumococcal Polysaccharide, PPSV23 (PNEUMOVAX) 2021-08-11 00:00:00 Completed [facility] Influenza Virus Vaccine Quad IM 6-35 MO 2021-08-11 00:00:00 Completed [facility] Influenza Virus Vaccine Quad IM, Preserv and ABX Free 6 MO-64 YRS 2021-08-11 00:00:00 Completed [facility] Pneumococcal Polysaccharide, PPSV23 (PNEUMOVAX) 2021-08-11 00:00:00 Completed [facility] Influenza Virus Vaccine Quad IM 6-35 MO 2021-08-11 00:00:00 Completed [facility] Influenza Virus Vaccine Quad IM, Preserv and ABX Free 6 MO-64 YRS 2021-08-11 00:00:00 Completed [facility] Pneumococcal Polysaccharide, PPSV23 (PNEUMOVAX) 2021-08-11 00:00:00 Completed [facility] Influenza Virus Vaccine Quad IM 6-35 MO 2021-08-11 00:00:00 Completed [facility] Influenza Virus Vaccine Quad IM, Preserv and ABX Free 6 MO-64 YRS 2021-08-11 00:00:00 Completed [facility] Pneumococcal Polysaccharide, PPSV23 (PNEUMOVAX) 2021-08-11 00:00:00 Completed [facility] Influenza Virus Vaccine Quad IM 6-35 MO 2021-08-11 00:00:00 Completed [facility] Influenza Virus Vaccine Quad IM, Preserv and ABX Free 6 MO-64 YRS 2021-08-11 00:00:00 Completed [facility] Pneumococcal Polysaccharide, PPSV23 (PNEUMOVAX) 2021-08-11 00:00:00 Completed [facility] Influenza Virus Vaccine Quad IM 6-35 MO 2021-08-11 00:00:00 Completed [facility] Influenza Virus Vaccine Quad IM, Preserv and ABX Free 6 MO-64 YRS 2021-08-11 00:00:00 Completed [facility] Pneumococcal Polysaccharide, PPSV23 (PNEUMOVAX) 2021-08-11 00:00:00 Completed [facility] Influenza Virus Vaccine Quad IM 6-35 MO 2021-08-11 00:00:00 Completed [facility] Influenza Virus Vaccine Quad IM, Preserv and ABX Free 6 MO-64 YRS 2021-08-11 00:00:00 Completed [facility] Pneumococcal Polysaccharide, PPSV23 (PNEUMOVAX) 2021-08-11 00:00:00 Completed [facility] Influenza Virus Vaccine Quad IM 6-35 MO 2021-08-11 00:00:00 Completed [facility] Influenza Virus Vaccine Quad IM, Preserv and ABX Free 6 MO-64 YRS (FLUCELVAX) 2021-08-11 00:00:00 Completed Pneumococcal Polysaccharide, PPSV23 (PNEUMOVAX) 2021-08-11 00:00:00 Completed SARS-COV-2 COVID-19 TING/J&J VACCINE 2021-01-15 00:00:00 Completed [facility] MMR 2020-08-03 00:00:00 Completed Zoster Vaccine Recombinant 2020-08-03 00:00:00 Completed Influenza Virus Vaccine 2019-09-18 00:00:00 Completed [facility] Influenza Virus Vaccine 2019-09-18 00:00:00 Completed [facility] Influenza Virus Vaccine 2019-09-18 00:00:00 Completed [facility] Influenza Virus Vaccine 2019-09-18 00:00:00 Completed [facility] Influenza Virus Vaccine 2019-09-18 00:00:00 Completed [facility] Influenza Virus Vaccine 2019-09-18 00:00:00 Completed [facility] Influenza Virus Vaccine 2019-09-18 00:00:00 Completed [facility] Influenza Virus Vaccine 2019-09-18 00:00:00 Completed [facility] Influenza Virus Vaccine 2019-09-18 00:00:00 Completed [facility] Influenza Virus Vaccine 2019-09-18 00:00:00 Completed [facility] Influenza Virus Vaccine 2019-09-18 00:00:00 Completed [facility] Influenza Virus Vaccine 2019-09-18 00:00:00 Completed [facility] Influenza Virus Vaccine 2019-09-18 00:00:00 Completed [facility] Influenza Virus Vaccine 2019-09-18 00:00:00 Completed [facility] Influenza Virus Vaccine 2019-09-18 00:00:00 Completed [facility] Influenza Virus Vaccine 2019-09-18 00:00:00 Completed [facility] Influenza Virus Vaccine 2019-09-18 00:00:00 Completed [facility] Influenza Virus Vaccine 2019-09-18 00:00:00 Completed [facility] Influenza Virus Vaccine 2019-09-18 00:00:00 Completed [facility] Influenza Virus Vaccine 2019-09-18 00:00:00 Completed [facility] Influenza Virus Vaccine 2019-09-18 00:00:00 Completed [facility] TDAP 2019-08-05 00:00:00 Completed Pneumococcal 13 Conjugate, PCV13 (Prevnar 13) 2019-08-05 00:00:00 Completed Zoster Vaccine Recombinant 2019-08-05 00:00:00 Completed flu vax 2018-07-07 10:03:13 Completed [facility] flu vax 2017-09-06 11:35:57 Completed [facility] pneumovax 2017-07-20 12:39:39 Completed [facility] flu vax 2016-09-21 09:13:37 Completed [facility] pneumped1 2016-05-06 09:53:46 Completed [facility] Pneumococcal 13 Conjugate, PCV13 (Prevnar 13) 2014-09-17 00:00:00 Completed [facility] Influenza Virus Vaccine Quad IM 3+ YRS 2014-09-17 00:00:00 Completed [facility] Pneumococcal 13 Conjugate, PCV13 (Prevnar 13) 2014-09-17 00:00:00 Completed [facility] Influenza Virus Vaccine Quad IM 3+ YRS 2014-09-17 00:00:00 Completed [facility] Pneumococcal 13 Conjugate, PCV13 (Prevnar 13) 2014-09-17 00:00:00 Completed [facility] Influenza Virus Vaccine Quad IM 3+ YRS 2014-09-17 00:00:00 Completed [facility] Pneumococcal 13 Conjugate, PCV13 (Prevnar 13) 2014-09-17 00:00:00 Completed [facility] Influenza Virus Vaccine Quad IM 3+ YRS 2014-09-17 00:00:00 Completed [facility] Pneumococcal 13 Conjugate, PCV13 (Prevnar 13) 2014-09-17 00:00:00 Completed [facility] Influenza Virus Vaccine Quad IM 3+ YRS 2014-09-17 00:00:00 Completed [facility] Pneumococcal 13 Conjugate, PCV13 (Prevnar 13) 2014-09-17 00:00:00 Completed [facility] Influenza Virus Vaccine Quad IM 3+ YRS 2014-09-17 00:00:00 Completed [facility] Pneumococcal 13 Conjugate, PCV13 (Prevnar 13) 2014-09-17 00:00:00 Completed [facility] Influenza Virus Vaccine Quad IM 3+ YRS 2014-09-17 00:00:00 Completed [facility] Pneumococcal 13 Conjugate, PCV13 (Prevnar 13) 2014-09-17 00:00:00 Completed [facility] Influenza Virus Vaccine Quad IM 3+ YRS 2014-09-17 00:00:00 Completed [facility] Pneumococcal 13 Conjugate, PCV13 (Prevnar 13) 2014-09-17 00:00:00 Completed [facility] Influenza Virus Vaccine Quad IM 3+ YRS 2014-09-17 00:00:00 Completed [facility] Pneumococcal 13 Conjugate, PCV13 (Prevnar 13) 2014-09-17 00:00:00 Completed [facility] Influenza Virus Vaccine Quad IM 3+ YRS 2014-09-17 00:00:00 Completed [facility] Pneumococcal 13 Conjugate, PCV13 (Prevnar 13) 2014-09-17 00:00:00 Completed [facility] Influenza Virus Vaccine Quad IM 3+ YRS 2014-09-17 00:00:00 Completed [facility] Pneumococcal 13 Conjugate, PCV13 (Prevnar 13) 2014-09-17 00:00:00 Completed [facility] Influenza Virus Vaccine Quad IM 3+ YRS 2014-09-17 00:00:00 Completed [facility] Pneumococcal 13 Conjugate, PCV13 (Prevnar 13) 2014-09-17 00:00:00 Completed [facility] Influenza Virus Vaccine Quad IM 3+ YRS 2014-09-17 00:00:00 Completed [facility] Pneumococcal 13 Conjugate, PCV13 (Prevnar 13) 2014-09-17 00:00:00 Completed [facility] Influenza Virus Vaccine Quad IM 3+ YRS 2014-09-17 00:00:00 Completed [facility] Pneumococcal 13 Conjugate, PCV13 (Prevnar 13) 2014-09-17 00:00:00 Completed [facility] Influenza Virus Vaccine Quad IM 3+ YRS 2014-09-17 00:00:00 Completed [facility] Pneumococcal 13 Conjugate, PCV13 (Prevnar 13) 2014-09-17 00:00:00 Completed [facility] Influenza Virus Vaccine Quad IM 3+ YRS 2014-09-17 00:00:00 Completed [facility] Pneumococcal 13 Conjugate, PCV13 (Prevnar 13) 2014-09-17 00:00:00 Completed [facility] Influenza Virus Vaccine Quad IM 3+ YRS 2014-09-17 00:00:00 Completed [facility] Pneumococcal 13 Conjugate, PCV13 (Prevnar 13) 2014-09-17 00:00:00 Completed [facility] Influenza Virus Vaccine Quad IM 3+ YRS 2014-09-17 00:00:00 Completed [facility] Pneumococcal 13 Conjugate, PCV13 (Prevnar 13) 2014-09-17 00:00:00 Completed [facility] Influenza Virus Vaccine Quad IM 3+ YRS 2014-09-17 00:00:00 Completed [facility] Pneumococcal 13 Conjugate, PCV13 (Prevnar 13) 2014-09-17 00:00:00 Completed [facility] Influenza Virus Vaccine Quad IM 3+ YRS 2014-09-17 00:00:00 Completed [facility] Pneumococcal 13 Conjugate, PCV13 (Prevnar 13) 2014-09-17 00:00:00 Completed Influenza Virus Vaccine Quad IM 3+ YRS 2014-09-17 00:00:00 Completed HEPATITIS A 2014-04-23 00:00:00 Completed [facility] HEPATITIS A 2014-04-23 00:00:00 Completed [facility] HEPATITIS A 2014-04-23 00:00:00 Completed [facility] HEPATITIS A 2014-04-23 00:00:00 Completed [facility] HEPATITIS A 2014-04-23 00:00:00 Completed [facility] HEPATITIS A 2014-04-23 00:00:00 Completed [facility] HEPATITIS A 2014-04-23 00:00:00 Completed [facility] HEPATITIS A 2014-04-23 00:00:00 Completed [facility] HEPATITIS A 2014-04-23 00:00:00 Completed [facility] HEPATITIS A 2014-04-23 00:00:00 Completed [facility] HEPATITIS A 2014-04-23 00:00:00 Completed [facility] HEPATITIS A 2014-04-23 00:00:00 Completed [facility] HEPATITIS A 2014-04-23 00:00:00 Completed [facility] HEPATITIS A 2014-04-23 00:00:00 Completed [facility] HEPATITIS A 2014-04-23 00:00:00 Completed [facility] HEPATITIS A 2014-04-23 00:00:00 Completed [facility] HEPATITIS A 2014-04-23 00:00:00 Completed [facility] HEPATITIS A 2014-04-23 00:00:00 Completed [facility] HEPATITIS A 2014-04-23 00:00:00 Completed [facility] HEPATITIS A 2014-04-23 00:00:00 Completed [facility] HEPATITIS A 2014-04-23 00:00:00 Completed [facility] PPD (TB) 2012-08-01 00:00:00 Completed [facility] Influenza Virus Vaccine 2012-08-01 00:00:00 Completed [facility] PPD (TB) 2012-08-01 00:00:00 Completed [facility] Influenza Virus Vaccine 2012-08-01 00:00:00 Completed [facility] PPD (TB) 2012-08-01 00:00:00 Completed [facility] Influenza Virus Vaccine 2012-08-01 00:00:00 Completed [facility] PPD (TB) 2012-08-01 00:00:00 Completed [facility] Influenza Virus Vaccine 2012-08-01 00:00:00 Completed [facility] PPD (TB) 2012-08-01 00:00:00 Completed [facility] Influenza Virus Vaccine 2012-08-01 00:00:00 Completed [facility] PPD (TB) 2012-08-01 00:00:00 Completed [facility] Influenza Virus Vaccine 2012-08-01 00:00:00 Completed [facility] PPD (TB) 2012-08-01 00:00:00 Completed [facility] Influenza Virus Vaccine 2012-08-01 00:00:00 Completed [facility] PPD (TB) 2012-08-01 00:00:00 Completed [facility] Influenza Virus Vaccine 2012-08-01 00:00:00 Completed [facility] PPD (TB) 2012-08-01 00:00:00 Completed [facility] Influenza Virus Vaccine 2012-08-01 00:00:00 Completed [facility] PPD (TB) 2012-08-01 00:00:00 Completed [facility] Influenza Virus Vaccine 2012-08-01 00:00:00 Completed [facility] PPD (TB) 2012-08-01 00:00:00 Completed [facility] Influenza Virus Vaccine 2012-08-01 00:00:00 Completed [facility] PPD (TB) 2012-08-01 00:00:00 Completed [facility] Influenza Virus Vaccine 2012-08-01 00:00:00 Completed [facility] PPD (TB) 2012-08-01 00:00:00 Completed [facility] Influenza Virus Vaccine 2012-08-01 00:00:00 Completed [facility] PPD (TB) 2012-08-01 00:00:00 Completed [facility] Influenza Virus Vaccine 2012-08-01 00:00:00 Completed [facility] PPD (TB) 2012-08-01 00:00:00 Completed [facility] Influenza Virus Vaccine 2012-08-01 00:00:00 Completed [facility] PPD (TB) 2012-08-01 00:00:00 Completed [facility] Influenza Virus Vaccine 2012-08-01 00:00:00 Completed [facility] PPD (TB) 2012-08-01 00:00:00 Completed [facility] Influenza Virus Vaccine 2012-08-01 00:00:00 Completed [facility] PPD (TB) 2012-08-01 00:00:00 Completed [facility] Influenza Virus Vaccine 2012-08-01 00:00:00 Completed [facility] PPD (TB) 2012-08-01 00:00:00 Completed [facility] Influenza Virus Vaccine 2012-08-01 00:00:00 Completed [facility] PPD (TB) 2012-08-01 00:00:00 Completed [facility] Influenza Virus Vaccine 2012-08-01 00:00:00 Completed [facility] PPD (TB) 2012-08-01 00:00:00 Completed [facility] Influenza Virus Vaccine 2012-08-01 00:00:00 Completed Influenza Virus Vaccine 2011-07-25 00:00:00 Completed [facility] Influenza Virus Vaccine 2011-07-25 00:00:00 Completed [facility] Influenza Virus Vaccine 2011-07-25 00:00:00 Completed [facility] Influenza Virus Vaccine 2011-07-25 00:00:00 Completed [facility] Influenza Virus Vaccine 2011-07-25 00:00:00 Completed [facility] Influenza Virus Vaccine 2011-07-25 00:00:00 Completed [facility] Influenza Virus Vaccine 2011-07-25 00:00:00 Completed [facility] Influenza Virus Vaccine 2011-07-25 00:00:00 Completed [facility] Influenza Virus Vaccine 2011-07-25 00:00:00 Completed [facility] Influenza Virus Vaccine 2011-07-25 00:00:00 Completed [facility] Influenza Virus Vaccine 2011-07-25 00:00:00 Completed [facility] Influenza Virus Vaccine 2011-07-25 00:00:00 Completed [facility] Influenza Virus Vaccine 2011-07-25 00:00:00 Completed [facility] Influenza Virus Vaccine 2011-07-25 00:00:00 Completed [facility] Influenza Virus Vaccine 2011-07-25 00:00:00 Completed [facility] Influenza Virus Vaccine 2011-07-25 00:00:00 Completed [facility] Influenza Virus Vaccine 2011-07-25 00:00:00 Completed [facility] Influenza Virus Vaccine 2011-07-25 00:00:00 Completed [facility] Influenza Virus Vaccine 2011-07-25 00:00:00 Completed [facility] Influenza Virus Vaccine 2011-07-25 00:00:00 Completed [facility] Influenza Virus Vaccine 2011-07-25 00:00:00 Completed TDAP (ADACEL) VACCINE 2011-04-19 00:00:00 Completed [facility] Pneumococcal Polysaccharide, PPSV23 (PNEUMOVAX) 2011-04-19 00:00:00 Completed [facility] PPD (TB) 2011-04-19 00:00:00 Completed [facility] TDAP (ADACEL) VACCINE 2011-04-19 00:00:00 Completed [facility] Pneumococcal Polysaccharide, PPSV23 (PNEUMOVAX) 2011-04-19 00:00:00 Completed [facility] PPD (TB) 2011-04-19 00:00:00 Completed [facility] TDAP (ADACEL) VACCINE 2011-04-19 00:00:00 Completed [facility] Pneumococcal Polysaccharide, PPSV23 (PNEUMOVAX) 2011-04-19 00:00:00 Completed [facility] PPD (TB) 2011-04-19 00:00:00 Completed [facility] TDAP (ADACEL) VACCINE 2011-04-19 00:00:00 Completed [facility] Pneumococcal Polysaccharide, PPSV23 (PNEUMOVAX) 2011-04-19 00:00:00 Completed [facility] PPD (TB) 2011-04-19 00:00:00 Completed [facility] TDAP (ADACEL) VACCINE 2011-04-19 00:00:00 Completed [facility] Pneumococcal Polysaccharide, PPSV23 (PNEUMOVAX) 2011-04-19 00:00:00 Completed [facility] PPD (TB) 2011-04-19 00:00:00 Completed [facility] TDAP (ADACEL) VACCINE 2011-04-19 00:00:00 Completed [facility] Pneumococcal Polysaccharide, PPSV23 (PNEUMOVAX) 2011-04-19 00:00:00 Completed [facility] PPD (TB) 2011-04-19 00:00:00 Completed [facility] TDAP (ADACEL) VACCINE 2011-04-19 00:00:00 Completed [facility] Pneumococcal Polysaccharide, PPSV23 (PNEUMOVAX) 2011-04-19 00:00:00 Completed [facility] PPD (TB) 2011-04-19 00:00:00 Completed [facility] TDAP (ADACEL) VACCINE 2011-04-19 00:00:00 Completed [facility] Pneumococcal Polysaccharide, PPSV23 (PNEUMOVAX) 2011-04-19 00:00:00 Completed [facility] PPD (TB) 2011-04-19 00:00:00 Completed [facility] TDAP (ADACEL) VACCINE 2011-04-19 00:00:00 Completed [facility] Pneumococcal Polysaccharide, PPSV23 (PNEUMOVAX) 2011-04-19 00:00:00 Completed [facility] PPD (TB) 2011-04-19 00:00:00 Completed [facility] TDAP (ADACEL) VACCINE 2011-04-19 00:00:00 Completed [facility] Pneumococcal Polysaccharide, PPSV23 (PNEUMOVAX) 2011-04-19 00:00:00 Completed [facility] PPD (TB) 2011-04-19 00:00:00 Completed [facility] TDAP (ADACEL) VACCINE 2011-04-19 00:00:00 Completed [facility] Pneumococcal Polysaccharide, PPSV23 (PNEUMOVAX) 2011-04-19 00:00:00 Completed [facility] PPD (TB) 2011-04-19 00:00:00 Completed [facility] TDAP (ADACEL) VACCINE 2011-04-19 00:00:00 Completed [facility] Pneumococcal Polysaccharide, PPSV23 (PNEUMOVAX) 2011-04-19 00:00:00 Completed [facility] PPD (TB) 2011-04-19 00:00:00 Completed [facility] TDAP (ADACEL) VACCINE 2011-04-19 00:00:00 Completed [facility] Pneumococcal Polysaccharide, PPSV23 (PNEUMOVAX) 2011-04-19 00:00:00 Completed [facility] PPD (TB) 2011-04-19 00:00:00 Completed [facility] TDAP (ADACEL) VACCINE 2011-04-19 00:00:00 Completed [facility] Pneumococcal Polysaccharide, PPSV23 (PNEUMOVAX) 2011-04-19 00:00:00 Completed [facility] PPD (TB) 2011-04-19 00:00:00 Completed [facility] TDAP (ADACEL) VACCINE 2011-04-19 00:00:00 Completed [facility] Pneumococcal Polysaccharide, PPSV23 (PNEUMOVAX) 2011-04-19 00:00:00 Completed [facility] PPD (TB) 2011-04-19 00:00:00 Completed [facility] TDAP (ADACEL) VACCINE 2011-04-19 00:00:00 Completed [facility] Pneumococcal Polysaccharide, PPSV23 (PNEUMOVAX) 2011-04-19 00:00:00 Completed [facility] PPD (TB) 2011-04-19 00:00:00 Completed [facility] TDAP (ADACEL) VACCINE 2011-04-19 00:00:00 Completed [facility] Pneumococcal Polysaccharide, PPSV23 (PNEUMOVAX) 2011-04-19 00:00:00 Completed [facility] PPD (TB) 2011-04-19 00:00:00 Completed [facility] TDAP (ADACEL) VACCINE 2011-04-19 00:00:00 Completed [facility] Pneumococcal Polysaccharide, PPSV23 (PNEUMOVAX) 2011-04-19 00:00:00 Completed [facility] PPD (TB) 2011-04-19 00:00:00 Completed [facility] TDAP (ADACEL) VACCINE 2011-04-19 00:00:00 Completed [facility] Pneumococcal Polysaccharide, PPSV23 (PNEUMOVAX) 2011-04-19 00:00:00 Completed [facility] PPD (TB) 2011-04-19 00:00:00 Completed [facility] TDAP (ADACEL) VACCINE 2011-04-19 00:00:00 Completed [facility] Pneumococcal Polysaccharide, PPSV23 (PNEUMOVAX) 2011-04-19 00:00:00 Completed [facility] PPD (TB) 2011-04-19 00:00:00 Completed [facility] TDAP (ADACEL) VACCINE 2011-04-19 00:00:00 Completed Pneumococcal Polysaccharide, PPSV23 (PNEUMOVAX) 2011-04-19 00:00:00 Completed PPD (TB) 2011-04-19 00:00:00 Completed [facility] PPD (TB) 2010-07-02 00:00:00 Completed [facility] PPD (TB) 2010-07-02 00:00:00 Completed [facility] PPD (TB) 2010-07-02 00:00:00 Completed [facility] PPD (TB) 2010-07-02 00:00:00 Completed [facility] PPD (TB) 2010-07-02 00:00:00 Completed [facility] PPD (TB) 2010-07-02 00:00:00 Completed [facility] PPD (TB) 2010-07-02 00:00:00 Completed [facility] PPD (TB) 2010-07-02 00:00:00 Completed [facility] PPD (TB) 2010-07-02 00:00:00 Completed [facility] PPD (TB) 2010-07-02 00:00:00 Completed [facility] PPD (TB) 2010-07-02 00:00:00 Completed [facility] PPD (TB) 2010-07-02 00:00:00 Completed [facility] PPD (TB) 2010-07-02 00:00:00 Completed [facility] PPD (TB) 2010-07-02 00:00:00 Completed [facility] PPD (TB) 2010-07-02 00:00:00 Completed [facility] PPD (TB) 2010-07-02 00:00:00 Completed [facility] PPD (TB) 2010-07-02 00:00:00 Completed [facility] PPD (TB) 2010-07-02 00:00:00 Completed [facility] PPD (TB) 2010-07-02 00:00:00 Completed [facility] PPD (TB) 2010-07-02 00:00:00 Completed [facility] PPD (TB) 2010-07-02 00:00:00 Completed HEPATITIS A 2010-01-08 00:00:00 Completed [facility] HEPATITIS A 2010-01-08 00:00:00 Completed [facility] HEPATITIS A 2010-01-08 00:00:00 Completed [facility] HEPATITIS A 2010-01-08 00:00:00 Completed [facility] HEPATITIS A 2010-01-08 00:00:00 Completed [facility] HEPATITIS A 2010-01-08 00:00:00 Completed [facility] HEPATITIS A 2010-01-08 00:00:00 Completed [facility] HEPATITIS A 2010-01-08 00:00:00 Completed [facility] HEPATITIS A 2010-01-08 00:00:00 Completed [facility] HEPATITIS A 2010-01-08 00:00:00 Completed [facility] HEPATITIS A 2010-01-08 00:00:00 Completed [facility] HEPATITIS A 2010-01-08 00:00:00 Completed [facility] HEPATITIS A 2010-01-08 00:00:00 Completed [facility] HEPATITIS A 2010-01-08 00:00:00 Completed [facility] HEPATITIS A 2010-01-08 00:00:00 Completed [facility] HEPATITIS A 2010-01-08 00:00:00 Completed [facility] HEPATITIS A 2010-01-08 00:00:00 Completed [facility] HEPATITIS A 2010-01-08 00:00:00 Completed [facility] HEPATITIS A 2010-01-08 00:00:00 Completed [facility] HEPATITIS A 2010-01-08 00:00:00 Completed [facility] HEPATITIS A 2010-01-08 00:00:00 Completed HEPATITIS A 2009-04-16 00:00:00 Completed [facility] Pneumococcal Polysaccharide, PPSV23 (PNEUMOVAX) 2009-04-16 00:00:00 Completed [facility] TDAP 2009-04-16 00:00:00 Completed [facility] HEPATITIS A 2009-04-16 00:00:00 Completed [facility] Pneumococcal Polysaccharide, PPSV23 (PNEUMOVAX) 2009-04-16 00:00:00 Completed [facility] TDAP 2009-04-16 00:00:00 Completed [facility] HEPATITIS A 2009-04-16 00:00:00 Completed [facility] Pneumococcal Polysaccharide, PPSV23 (PNEUMOVAX) 2009-04-16 00:00:00 Completed [facility] TDAP 2009-04-16 00:00:00 Completed [facility] HEPATITIS A 2009-04-16 00:00:00 Completed [facility] Pneumococcal Polysaccharide, PPSV23 (PNEUMOVAX) 2009-04-16 00:00:00 Completed [facility] TDAP 2009-04-16 00:00:00 Completed [facility] HEPATITIS A 2009-04-16 00:00:00 Completed [facility] Pneumococcal Polysaccharide, PPSV23 (PNEUMOVAX) 2009-04-16 00:00:00 Completed [facility] TDAP 2009-04-16 00:00:00 Completed [facility] HEPATITIS A 2009-04-16 00:00:00 Completed [facility] Pneumococcal Polysaccharide, PPSV23 (PNEUMOVAX) 2009-04-16 00:00:00 Completed [facility] TDAP 2009-04-16 00:00:00 Completed [facility] HEPATITIS A 2009-04-16 00:00:00 Completed [facility] Pneumococcal Polysaccharide, PPSV23 (PNEUMOVAX) 2009-04-16 00:00:00 Completed [facility] TDAP 2009-04-16 00:00:00 Completed [facility] HEPATITIS A 2009-04-16 00:00:00 Completed [facility] Pneumococcal Polysaccharide, PPSV23 (PNEUMOVAX) 2009-04-16 00:00:00 Completed [facility] TDAP 2009-04-16 00:00:00 Completed [facility] HEPATITIS A 2009-04-16 00:00:00 Completed [facility] Pneumococcal Polysaccharide, PPSV23 (PNEUMOVAX) 2009-04-16 00:00:00 Completed [facility] TDAP 2009-04-16 00:00:00 Completed [facility] HEPATITIS A 2009-04-16 00:00:00 Completed [facility] Pneumococcal Polysaccharide, PPSV23 (PNEUMOVAX) 2009-04-16 00:00:00 Completed [facility] TDAP 2009-04-16 00:00:00 Completed [facility] HEPATITIS A 2009-04-16 00:00:00 Completed [facility] Pneumococcal Polysaccharide, PPSV23 (PNEUMOVAX) 2009-04-16 00:00:00 Completed [facility] TDAP 2009-04-16 00:00:00 Completed [facility] HEPATITIS A 2009-04-16 00:00:00 Completed [facility] Pneumococcal Polysaccharide, PPSV23 (PNEUMOVAX) 2009-04-16 00:00:00 Completed [facility] TDAP 2009-04-16 00:00:00 Completed [facility] HEPATITIS A 2009-04-16 00:00:00 Completed [facility] Pneumococcal Polysaccharide, PPSV23 (PNEUMOVAX) 2009-04-16 00:00:00 Completed [facility] TDAP 2009-04-16 00:00:00 Completed [facility] HEPATITIS A 2009-04-16 00:00:00 Completed [facility] Pneumococcal Polysaccharide, PPSV23 (PNEUMOVAX) 2009-04-16 00:00:00 Completed [facility] TDAP 2009-04-16 00:00:00 Completed [facility] HEPATITIS A 2009-04-16 00:00:00 Completed [facility] Pneumococcal Polysaccharide, PPSV23 (PNEUMOVAX) 2009-04-16 00:00:00 Completed [facility] TDAP 2009-04-16 00:00:00 Completed [facility] HEPATITIS A 2009-04-16 00:00:00 Completed [facility] Pneumococcal Polysaccharide, PPSV23 (PNEUMOVAX) 2009-04-16 00:00:00 Completed [facility] TDAP 2009-04-16 00:00:00 Completed [facility] HEPATITIS A 2009-04-16 00:00:00 Completed [facility] Pneumococcal Polysaccharide, PPSV23 (PNEUMOVAX) 2009-04-16 00:00:00 Completed [facility] TDAP 2009-04-16 00:00:00 Completed [facility] HEPATITIS A 2009-04-16 00:00:00 Completed [facility] Pneumococcal Polysaccharide, PPSV23 (PNEUMOVAX) 2009-04-16 00:00:00 Completed [facility] TDAP 2009-04-16 00:00:00 Completed [facility] HEPATITIS A 2009-04-16 00:00:00 Completed [facility] Pneumococcal Polysaccharide, PPSV23 (PNEUMOVAX) 2009-04-16 00:00:00 Completed [facility] TDAP 2009-04-16 00:00:00 Completed [facility] HEPATITIS A 2009-04-16 00:00:00 Completed [facility] Pneumococcal Polysaccharide, PPSV23 (PNEUMOVAX) 2009-04-16 00:00:00 Completed [facility] TDAP 2009-04-16 00:00:00 Completed [facility] HEPATITIS A 2009-04-16 00:00:00 Completed Pneumococcal Polysaccharide, PPSV23 (PNEUMOVAX) 2009-04-16 00:00:00 Completed TDAP 2009-04-16 00:00:00 Completed TDAP (ADACEL) VACCINE Unknown Completed [facility] PPD (TB) Unknown Completed [facility] HEPATITIS A Unknown Completed [facility] PPD (TB) Unknown Completed [facility] Pneumococcal 13 Conjugate, PCV13 (Prevnar 13) Unknown Completed [facility] Influenza Virus Vaccine Quad IM 6-35 MO Unknown Completed [facility] Influenza Virus Vaccine Quad IM 3+ YRS Unknown Completed [facility] Influenza Virus Vaccine Unknown Completed [facility] Influenza Virus Vaccine Quad IM, Preserv and ABX Free 6 MO-64 YRS (FLUCELVAX) Unknown Completed [facility] Pneumococcal Polysaccharide, PPSV23 (PNEUMOVAX) Unknown Completed [facility] SARS-COV-2 COVID-19 MODERNA 0.25ML BOOSTER VACCINE Unknown Completed [facility] Meningococcal Polysaccharide (groups A, C, Y and W-135) conjugate vaccine (MCV4P) Unknown Completed [facility] SARS-COV-2 COVID-19 VACCINE 12 YRS+, BIVALENT 0.5ML, IM, (MODERNA-BLUE TOP) Unknown Completed [facility] SMALLPOX MONKEYPOX VACCINE LIVE JYNNEOS, 0.5ML,PF,SQ Unknown Completed [facility] SMALLPOX MONKEYPOX VACCINE LIVE JYNNEOS, ADULT LOW DOSE 0.1ML, PF,ID Unknown Completed [facility] TDAP (ADACEL) VACCINE Unknown Completed [facility] PPD (TB) Unknown Completed [facility] HEPATITIS A Unknown Completed [facility] PPD (TB) Unknown Completed [facility] Pneumococcal 13 Conjugate, PCV13 (Prevnar 13) Unknown Completed [facility] Influenza Virus Vaccine Quad IM 6-35 MO Unknown Completed [facility] Influenza Virus Vaccine Quad IM 3+ YRS Unknown Completed [facility] Influenza Virus Vaccine Unknown Completed [facility] Influenza Virus Vaccine Quad IM, Preserv and ABX Free 6 MO-64 YRS (FLUCELVAX) Unknown Completed [facility] Pneumococcal Polysaccharide, PPSV23 (PNEUMOVAX) Unknown Completed [facility] SARS-COV-2 COVID-19 MODERNA 0.25ML BOOSTER VACCINE Unknown Completed [facility] Meningococcal Polysaccharide (groups A, C, Y and W-135) conjugate vaccine (MCV4P) Unknown Completed [facility] TDAP (ADACEL) VACCINE Unknown Completed [facility] PPD (TB) Unknown Completed [facility] HEPATITIS A Unknown Completed [facility] PPD (TB) Unknown Completed [facility] Pneumococcal 13 Conjugate, PCV13 (Prevnar 13) Unknown Completed [facility] Influenza Virus Vaccine Quad IM 6-35 MO Unknown Completed [facility] Influenza Virus Vaccine Quad IM 3+ YRS Unknown Completed [facility] Influenza Virus Vaccine Unknown Completed [facility] Influenza Virus Vaccine Quad IM, Preserv and ABX Free 6 MO-64 YRS (FLUCELVAX) Unknown Completed [facility] Pneumococcal Polysaccharide, PPSV23 (PNEUMOVAX) Unknown Completed [facility] SARS-COV-2 COVID-19 MODERNA 0.25ML BOOSTER VACCINE Unknown Completed [facility] TDAP (ADACEL) VACCINE Unknown Completed [facility] Pneumococcal Polysaccharide, PPSV23 (PNEUMOVAX) Unknown Completed [facility] PPD (TB) Unknown Completed [facility] HEPATITIS A Unknown Completed [facility] PPD (TB) Unknown Completed [facility] Pneumococcal 13 Conjugate, PCV13 (Prevnar 13) Unknown Completed [facility] Influenza Virus Vaccine Quad IM 3+ YRS Unknown Completed [facility] Influenza Virus Vaccine Unknown Completed [facility] TDAP (ADACEL) VACCINE Unknown Completed [facility] Pneumococcal Polysaccharide, PPSV23 (PNEUMOVAX) Unknown Completed [facility] PPD (TB) Unknown Completed [facility] HEPATITIS A Unknown Completed [facility] PPD (TB) Unknown Completed [facility] Pneumococcal 13 Conjugate, PCV13 (Prevnar 13) Unknown Completed [facility] Influenza Virus Vaccine Quad IM 3+ YRS Unknown Completed [facility] Influenza Virus Vaccine Unknown Completed [facility] Influenza Virus Vaccine Quad IM 6-35 MO Unknown Completed [facility] Influenza Virus Vaccine Unknown Completed [facility] Influenza Virus Vaccine Quad IM, Preserv and ABX Free 6 MO-64 YRS (FLUCELVAX) Unknown Completed [facility] Pneumococcal Polysaccharide, PPSV23 (PNEUMOVAX) Unknown Completed [facility] SARS-COV-2 COVID-19 MODERNA 0.25ML BOOSTER VACCINE Unknown Completed [facility] Meningococcal Polysaccharide (groups A, C, Y and W-135) conjugate vaccine (MCV4P) Unknown Completed [facility] SARS-COV-2 COVID-19 VACCINE 12 YRS+, BIVALENT 0.5ML, IM, (MODERNA-BLUE TOP) Unknown Completed [facility] SMALLPOX MONKEYPOX VACCINE LIVE JYNNEOS, 0.5ML,PF,SQ Unknown Completed [facility] SMALLPOX MONKEYPOX VACCINE LIVE JYNNEOS, ADULT LOW DOSE 0.1ML, PF,ID Unknown Completed [facility] TDAP (ADACEL) VACCINE Unknown Completed [facility] PPD (TB) Unknown Completed [facility] HEPATITIS A Unknown Completed [facility] PPD (TB) Unknown Completed [facility] Pneumococcal 13 Conjugate, PCV13 (Prevnar 13) Unknown Completed [facility] Influenza Virus Vaccine Quad IM 3+ YRS Unknown Completed [facility] TDAP (ADACEL) VACCINE Unknown Completed [facility] PPD (TB) Unknown Completed [facility] HEPATITIS A Unknown Completed [facility] PPD (TB) Unknown Completed [facility] Pneumococcal 13 Conjugate, PCV13 (Prevnar 13) Unknown Completed [facility] Influenza Virus Vaccine Quad IM 6-35 MO Unknown Completed [facility] Influenza Virus Vaccine Quad IM 3+ YRS Unknown Completed [facility] Influenza Virus Vaccine Unknown Completed [facility] Influenza Virus Vaccine Quad IM, Preserv and ABX Free 6 MO-64 YRS (FLUCELVAX) Unknown Completed [facility] Pneumococcal Polysaccharide, PPSV23 (PNEUMOVAX) Unknown Completed [facility] SARS-COV-2 COVID-19 MODERNA 0.25ML BOOSTER VACCINE Unknown Completed [facility] Meningococcal Polysaccharide (groups A, C, Y and W-135) conjugate vaccine (MCV4P) Unknown Completed [facility] SARS-COV-2 COVID-19 VACCINE 12 YRS+, BIVALENT 0.5ML, IM, (MODERNA-BLUE TOP) Unknown Completed [facility] SMALLPOX MONKEYPOX VACCINE LIVE JYNNEOS, 0.5ML,PF,SQ Unknown Completed [facility] SMALLPOX MONKEYPOX VACCINE LIVE JYNNEOS, ADULT LOW DOSE 0.1ML, PF,ID Unknown Completed [facility] TDAP (ADACEL) VACCINE Unknown Completed [facility] Pneumococcal Polysaccharide, PPSV23 (PNEUMOVAX) Unknown Completed [facility] PPD (TB) Unknown Completed [facility] HEPATITIS A Unknown Completed [facility] PPD (TB) Unknown Completed [facility] Influenza Virus Vaccine Unknown Completed [facility] Pneumococcal 13 Conjugate, PCV13 (Prevnar 13) Unknown Completed [facility] Influenza Virus Vaccine Quad IM 6-35 MO Unknown Completed [facility] Influenza Virus Vaccine Quad IM 3+ YRS Unknown Completed [facility] Influenza Virus Vaccine Quad IM, Preserv and ABX Free 6 MO-64 YRS (FLUCELVAX) Unknown Completed [facility] SARS-COV-2 COVID-19 MODERNA 0.25ML BOOSTER VACCINE Unknown Completed [facility] Meningococcal Polysaccharide (groups A, C, Y and W-135) conjugate vaccine (MCV4P) Unknown Completed [facility] SARS-COV-2 COVID-19 VACCINE 12 YRS+, BIVALENT 0.5ML, IM, (MODERNA-BLUE TOP) Unknown Completed [facility] SMALLPOX MONKEYPOX VACCINE LIVE JYNNEOS, 0.5ML,PF,SQ Unknown Completed [facility] SMALLPOX MONKEYPOX VACCINE LIVE JYNNEOS, ADULT LOW DOSE 0.1ML, PF,ID Unknown Completed [facility] SARS-COV-2 COVID-19 TING/J&J VACCINE Unknown Completed [facility] TDAP (ADACEL) VACCINE Unknown Completed [facility] Pneumococcal Polysaccharide, PPSV23 (PNEUMOVAX) Unknown Completed [facility] PPD (TB) Unknown Completed [facility] HEPATITIS A Unknown Completed [facility] PPD (TB) Unknown Completed [facility] Influenza Virus Vaccine Unknown Completed [facility] Pneumococcal 13 Conjugate, PCV13 (Prevnar 13) Unknown Completed [facility] Influenza Virus Vaccine Quad IM 6-35 MO Unknown Completed [facility] Influenza Virus Vaccine Quad IM 3+ YRS Unknown Completed [facility] Influenza Virus Vaccine Quad IM, Preserv and ABX Free 6 MO-64 YRS (FLUCELVAX) Unknown Completed [facility] SARS-COV-2 COVID-19 MODERNA 0.25ML BOOSTER VACCINE Unknown Completed [facility] Meningococcal Polysaccharide (groups A, C, Y and W-135) conjugate vaccine (MCV4P) Unknown Completed [facility] SARS-COV-2 COVID-19 VACCINE 12 YRS+, BIVALENT 0.5ML, IM, (MODERNA-BLUE TOP) Unknown Completed [facility] SMALLPOX MONKEYPOX VACCINE LIVE JYNNEOS, 0.5ML,PF,SQ Unknown Completed [facility] SMALLPOX MONKEYPOX VACCINE LIVE JYNNEOS, ADULT LOW DOSE 0.1ML, PF,ID Unknown Completed [facility] SARS-COV-2 COVID-19 TING/J&J VACCINE Unknown Completed [facility] TDAP (ADACEL) VACCINE Unknown Completed [facility] Pneumococcal Polysaccharide, PPSV23 (PNEUMOVAX) Unknown Completed [facility] PPD (TB) Unknown Completed [facility] HEPATITIS A Unknown Completed [facility] PPD (TB) Unknown Completed [facility] Influenza Virus Vaccine Unknown Completed [facility] Pneumococcal 13 Conjugate, PCV13 (Prevnar 13) Unknown Completed [facility] Influenza Virus Vaccine Quad IM 6-35 MO Unknown Completed [facility] Influenza Virus Vaccine Quad IM 3+ YRS Unknown Completed [facility] Influenza Virus Vaccine Quad IM, Preserv and ABX Free 6 MO-64 YRS (FLUCELVAX) Unknown Completed [facility] SARS-COV-2 COVID-19 MODERNA 0.25ML BOOSTER VACCINE Unknown Completed [facility] Meningococcal Polysaccharide (groups A, C, Y and W-135) conjugate vaccine (MCV4P) Unknown Completed [facility] SARS-COV-2 COVID-19 VACCINE 12 YRS+, BIVALENT 0.5ML, IM, (MODERNA-BLUE TOP) Unknown Completed [facility] SMALLPOX MONKEYPOX VACCINE LIVE JYNNEOS, 0.5ML,PF,SQ Unknown Completed [facility] SMALLPOX MONKEYPOX VACCINE LIVE JYNNEOS, ADULT LOW DOSE 0.1ML, PF,ID Unknown Completed [facility] SARS-COV-2 COVID-19 TING/J&J VACCINE Unknown Completed [facility] SARS-COV-2 COVID 19 MAGALYS SUCROSE VACCINE 12+, [id number], 0.3 ML (30 MCG), IM PFIZER (NAVARRO TOP) Unknown Completed [facility] TDAP (ADACEL) VACCINE Unknown Completed [facility] Pneumococcal Polysaccharide, PPSV23 (PNEUMOVAX) Unknown Completed [facility] PPD (TB) Unknown Completed [facility] HEPATITIS A Unknown Completed [facility] PPD (TB) Unknown Completed [facility] Influenza Virus Vaccine Unknown Completed [facility] Pneumococcal 13 Conjugate, PCV13 (Prevnar 13) Unknown Completed [facility] Influenza Virus Vaccine Quad IM 6-35 MO Unknown Completed [facility] Influenza Virus Vaccine Quad IM 3+ YRS Unknown Completed [facility] Influenza Virus Vaccine Quad IM, Preserv and ABX Free 6 MO-64 YRS (FLUCELVAX) Unknown Completed [facility] SARS-COV-2 COVID-19 MODERNA 0.25ML BOOSTER VACCINE Unknown Completed [facility] Meningococcal Polysaccharide (groups A, C, Y and W-135) conjugate vaccine (MCV4P) Unknown Completed [facility] SARS-COV-2 COVID-19 VACCINE 12 YRS+, BIVALENT 0.5ML, IM, (MODERNA-BLUE TOP) Unknown Completed [facility] SMALLPOX MONKEYPOX VACCINE LIVE JYNNEOS, 0.5ML,PF,SQ Unknown Completed [facility] SMALLPOX MONKEYPOX VACCINE LIVE JYNNEOS, ADULT LOW DOSE 0.1ML, PF,ID Unknown Completed [facility] SARS-COV-2 COVID-19 TING/J&J VACCINE Unknown Completed [facility] SARS-COV-2 COVID 19 MAGALYS SUCROSE VACCINE 12+, [id number], 0.3 ML (30 MCG), IM PFIZER (NAVARRO TOP) Unknown Completed [facility] TDAP (ADACEL) VACCINE Unknown Completed [facility] Pneumococcal Polysaccharide, PPSV23 (PNEUMOVAX) Unknown Completed [facility] PPD (TB) Unknown Completed [facility] HEPATITIS A Unknown Completed [facility] PPD (TB) Unknown Completed [facility] Influenza Virus Vaccine Unknown Completed [facility] Pneumococcal 13 Conjugate, PCV13 (Prevnar 13) Unknown Completed [facility] Influenza Virus Vaccine Quad IM 6-35 MO Unknown Completed [facility] Influenza Virus Vaccine Quad IM 3+ YRS Unknown Completed [facility] Influenza Virus Vaccine Quad IM, Preserv and ABX Free 6 MO-64 YRS (FLUCELVAX) Unknown Completed [facility] SARS-COV-2 COVID-19 MODERNA 0.25ML BOOSTER VACCINE Unknown Completed [facility] Meningococcal Polysaccharide (groups A, C, Y and W-135) conjugate vaccine (MCV4P) Unknown Completed [facility] SARS-COV-2 COVID-19 VACCINE 12 YRS+, BIVALENT 0.5ML, IM, (MODERNA-BLUE TOP) Unknown Completed [facility] SMALLPOX MONKEYPOX VACCINE LIVE JYNNEOS, 0.5ML,PF,SQ Unknown Completed [facility] SMALLPOX MONKEYPOX VACCINE LIVE JYNNEOS, ADULT LOW DOSE 0.1ML, PF,ID Unknown Completed [facility] SARS-COV-2 COVID-19 TING/J&J VACCINE Unknown Completed [facility] SARS-COV-2 COVID 19 MAGALYS SUCROSE VACCINE 12+, [id number], 0.3 ML (30 MCG), IM PFIZER (NAVARRO TOP) Unknown Completed [facility] PPD (TB) Unknown Completed [facility] Pneumococcal 13 Conjugate, PCV13 (Prevnar 13) Unknown Completed [facility] Influenza Virus Vaccine Quad IM 6-35 MO Unknown Completed [facility] Influenza Virus Vaccine Quad IM 3+ YRS Unknown Completed [facility] SARS-COV-2 COVID-19 MODERNA 0.25ML BOOSTER VACCINE Unknown Completed [facility] Meningococcal Polysaccharide (groups A, C, Y and W-135) conjugate vaccine (MCV4P) Unknown Completed [facility] SARS-COV-2 COVID-19 VACCINE 12 YRS+, BIVALENT 0.5ML, IM, (MODERNA-BLUE TOP) Unknown Completed [facility] SMALLPOX MONKEYPOX VACCINE LIVE JYNNEOS, 0.5ML,PF,SQ Unknown Completed [facility] SMALLPOX MONKEYPOX VACCINE LIVE JYNNEOS, ADULT LOW DOSE 0.1ML, PF,ID Unknown Completed [facility] SARS-COV-2 COVID-19 TING/J&J VACCINE Unknown Completed [facility] SARS-COV-2 COVID 19 MAGALYS SUCROSE VACCINE 12+, [id number], 0.3 ML (30 MCG), IM PFIZER (NAVARRO TOP) Unknown Completed [facility] TDAP (ADACEL) VACCINE Unknown Completed [facility] Pneumococcal Polysaccharide, PPSV23 (PNEUMOVAX) Unknown Completed [facility] PPD (TB) Unknown Completed [facility] HEPATITIS A Unknown Completed [facility] Influenza Virus Vaccine Unknown Completed [facility] Influenza Virus Vaccine Quad IM, Preserv and ABX Free 6 MO-64 YRS (FLUCELVAX) Unknown Completed [facility] TDAP (ADACEL) VACCINE Unknown Completed [facility] Pneumococcal Polysaccharide, PPSV23 (PNEUMOVAX) Unknown Completed [facility] PPD (TB) Unknown Completed [facility] HEPATITIS A Unknown Completed [facility] PPD (TB) Unknown Completed [facility] Influenza Virus Vaccine Unknown Completed [facility] Pneumococcal 13 Conjugate, PCV13 (Prevnar 13) Unknown Completed [facility] Influenza Virus Vaccine Quad IM 6-35 MO Unknown Completed [facility] Influenza Virus Vaccine Quad IM 3+ YRS Unknown Completed [facility] Influenza Virus Vaccine Quad IM, Preserv and ABX Free 6 MO-64 YRS (FLUCELVAX) Unknown Completed [facility] SARS-COV-2 COVID-19 MODERNA 0.25ML BOOSTER VACCINE Unknown Completed [facility] Meningococcal Polysaccharide (groups A, C, Y and W-135) conjugate vaccine (MCV4P) Unknown Completed [facility] SARS-COV-2 COVID-19 VACCINE 12 YRS+, BIVALENT 0.5ML, IM, (MODERNA-BLUE TOP) Unknown Completed [facility] SMALLPOX MONKEYPOX VACCINE LIVE JYNNEOS, 0.5ML,PF,SQ Unknown Completed [facility] SMALLPOX MONKEYPOX VACCINE LIVE JYNNEOS, ADULT LOW DOSE 0.1ML, PF,ID Unknown Completed [facility] SARS-COV-2 COVID-19 TING/J&J VACCINE Unknown Completed [facility] SARS-COV-2 COVID 19 MAGALYS SUCROSE VACCINE 12+, [id number], 0.3 ML (30 MCG), IM PFIZER (NAVARRO TOP) Unknown Completed [facility] TDAP (ADACEL) VACCINE Unknown Completed [facility] Pneumococcal Polysaccharide, PPSV23 (PNEUMOVAX) Unknown Completed [facility] PPD (TB) Unknown Completed [facility] HEPATITIS A Unknown Completed [facility] PPD (TB) Unknown Completed [facility] Influenza Virus Vaccine Unknown Completed [facility] Pneumococcal 13 Conjugate, PCV13 (Prevnar 13) Unknown Completed [facility] Influenza Virus Vaccine Quad IM 6-35 MO Unknown Completed [facility] Influenza Virus Vaccine Quad IM 3+ YRS Unknown Completed [facility] Influenza Virus Vaccine Quad IM, Preserv and ABX Free 6 MO-64 YRS (FLUCELVAX) Unknown Completed [facility] SARS-COV-2 COVID-19 MODERNA 0.25ML BOOSTER VACCINE Unknown Completed [facility] Meningococcal Polysaccharide (groups A, C, Y and W-135) conjugate vaccine (MCV4P) Unknown Completed [facility] SARS-COV-2 COVID-19 VACCINE 12 YRS+, BIVALENT 0.5ML, IM, (MODERNA-BLUE TOP) Unknown Completed [facility] SMALLPOX MONKEYPOX VACCINE LIVE JYNNEOS, 0.5ML,PF,SQ Unknown Completed [facility] SMALLPOX MONKEYPOX VACCINE LIVE JYNNEOS, ADULT LOW DOSE 0.1ML, PF,ID Unknown Completed [facility] SARS-COV-2 COVID-19 TING/J&J VACCINE Unknown Completed [facility] SARS-COV-2 COVID 19 MAGALYS SUCROSE VACCINE 12+, [id number], 0.3 ML (30 MCG), IM PFIZER (NAVARRO TOP) Unknown Completed [facility] TDAP (ADACEL) VACCINE Unknown Completed [facility] Pneumococcal Polysaccharide, PPSV23 (PNEUMOVAX) Unknown Completed [facility] PPD (TB) Unknown Completed [facility] HEPATITIS A Unknown Completed [facility] PPD (TB) Unknown Completed [facility] Influenza Virus Vaccine Unknown Completed [facility] Pneumococcal 13 Conjugate, PCV13 (Prevnar 13) Unknown Completed [facility] Influenza Virus Vaccine Quad IM 6-35 MO Unknown Completed [facility] Influenza Virus Vaccine Quad IM 3+ YRS Unknown Completed [facility] Influenza Virus Vaccine Quad IM, Preserv and ABX Free 6 MO-64 YRS (FLUCELVAX) Unknown Completed [facility] SARS-COV-2 COVID-19 MODERNA 0.25ML BOOSTER VACCINE Unknown Completed [facility] Meningococcal Polysaccharide (groups A, C, Y and W-135) conjugate vaccine (MCV4P) Unknown Completed [facility] SARS-COV-2 COVID-19 VACCINE 12 YRS+, BIVALENT 0.5ML, IM, (MODERNA-BLUE TOP) Unknown Completed [facility] SMALLPOX MONKEYPOX VACCINE LIVE JYNNEOS, 0.5ML,PF,SQ Unknown Completed [facility] SMALLPOX MONKEYPOX VACCINE LIVE JYNNEOS, ADULT LOW DOSE 0.1ML, PF,ID Unknown Completed [facility] SARS-COV-2 COVID-19 TING/J&J VACCINE Unknown Completed [facility] SARS-COV-2 COVID 19 MAGALYS SUCROSE VACCINE 12+, [id number], 0.3 ML (30 MCG), IM PFIZER (NAVARRO TOP) Unknown Completed [facility] Vital Signs Vital Name Observation Time Observation Value Comments S ource Systolic blood pressure 2024-09-18 15:24:00 174 mm[Hg] pt states he's nervous [facility] Diastolic blood pressure 2024-09-18 15:24:00 91 mm[Hg] pt states he's nervous [facility] Heart rate 2024-09-18 15:24:00 86 /min [facility] Body temperature 2024-09-18 15:24:00 36.56 Christin [facility] Respiratory rate 2024-09-18 15:24:00 18 /min [facility] Body height 2024-09-18 15:24:00 162.6 cm [facility] Body weight 2024-09-18 15:24:00 68.357 kg [facility] BMI 2024-09-18 15:24:00 25.87 kg/m2 [facility] Oxygen saturation in Arterial blood by Pulse oximetry 2024-09-18 15:24:00 98 /min [facility] Systolic blood pressure 2024-05-27 14:37:00 156 mm[Hg] pt states just nervous [facility] Diastolic blood pressure 2024-05-27 14:37:00 95 mm[Hg] pt states just nervous [facility] Heart rate 2024-05-27 14:37:00 94 /min [facility] Body temperature 2024-05-27 14:37:00 36.39 Christin [facility] Respiratory rate 2024-05-27 14:37:00 16 /min [facility] Body height 2024-05-27 14:37:00 162.6 cm [facility] Body weight 2024-05-27 14:37:00 69.491 kg [facility] BMI 2024-05-27 14:37:00 26.30 kg/m2 [facility] Oxygen saturation in Arterial blood by Pulse oximetry 2024-05-27 14:37:00 99 /min [facility] Systolic blood pressure 2023-11-28 15:52:00 155 mm[Hg] [facility] Diastolic blood pressure 2023-11-28 15:52:00 86 mm[Hg] [facility] Heart rate 2023-11-28 15:48:00 85 /min [facility] Body temperature 2023-11-28 15:48:00 36.33 Christin [facility] Respiratory rate 2023-11-28 15:48:00 22 /min [facility] Body height 2023-11-28 15:48:00 165.1 cm [facility] Body weight 2023-11-28 15:48:00 65.545 kg [facility] BMI 2023-11-28 15:48:00 24.05 kg/m2 [facility] Oxygen saturation in Arterial blood by Pulse oximetry 2023-11-28 15:48:00 98 /min [facility] Systolic blood pressure 2023-04-17 20:39:00 158 mm[Hg] [facility] Diastolic blood pressure 2023-04-17 20:39:00 95 mm[Hg] [facility] Heart rate 2023-04-17 20:39:00 87 /min [facility] Body temperature 2023-04-17 20:39:00 36.94 Christin [facility] Respiratory rate 2023-04-17 20:39:00 16 /min [facility] Body height 2023-04-17 20:39:00 165.1 cm [facility] Body weight 2023-04-17 20:39:00 63.504 kg [facility] BMI 2023-04-17 20:39:00 23.30 kg/m2 [facility] Oxygen saturation in Arterial blood by Pulse oximetry 2023-04-17 20:39:00 98 /min room air [facility] Systolic blood pressure 2022-10-10 18:03:00 147 mm[Hg] [facility] Diastolic blood pressure 2022-10-10 18:03:00 94 mm[Hg] [facility] Heart rate 2022-10-10 18:03:00 86 /min [facility] Body temperature 2022-10-10 18:01:00 36.89 Christin [facility] Respiratory rate 2022-10-10 18:01:00 18 /min [facility] Body height 2022-10-10 18:01:00 165.1 cm [facility] Body weight 2022-10-10 18:01:00 66.679 kg [facility] BMI 2022-10-10 18:01:00 24.46 kg/m2 [facility] Oxygen saturation in Arterial blood by Pulse oximetry 2022-10-10 18:01:00 98 /min [facility] Systolic blood pressure 2022-09-12 19:31:00 161 mm[Hg] [facility] Diastolic blood pressure 2022-09-12 19:31:00 90 mm[Hg] [facility] Heart rate 2022-09-12 19:31:00 83 /min [facility] Body temperature 2022-09-12 19:28:00 36.33 Christin [facility] Respiratory rate 2022-09-12 19:28:00 18 /min [facility] Body height 2022-09-12 19:28:00 165.1 cm [facility] Body weight 2022-09-12 19:28:00 66.679 kg [facility] BMI 2022-09-12 19:28:00 24.46 kg/m2 [facility] Oxygen saturation in Arterial blood by Pulse oximetry 2022-09-12 19:28:00 97 /min [facility] Systolic blood pressure 2022-04-25 19:06:00 164 mm[Hg] [facility] Diastolic blood pressure 2022-04-25 19:06:00 93 mm[Hg] [facility] Heart rate 2022-04-25 19:06:00 76 /min [facility] Body temperature 2022-04-25 19:05:00 36.67 Christin [facility] Body height 2022-04-25 19:05:00 162.6 cm [facility] Body weight 2022-04-25 19:05:00 68.584 kg [facility] BMI 2022-04-25 19:05:00 25.95 kg/m2 [facility] temperature E&M 2019-04-26 15:28:24 98.1 [degF] [facility] blood pressure, diastolic 2019-04-26 15:28:24 98 mm[Hg] [facility] blood pressure, systolic 2019-04-26 15:28:24 144 mm[Hg] [facility] pulse rate 2019-04-26 15:28:24 112 /min [facility] oxygen saturation, oximetry 2019-04-26 15:28:24 98 /min [facility] weight E&M 2019-04-26 15:28:24 145 [lb_av] [facility] weight in kilograms E&M 2019-04-26 15:28:24 65.91 kg [facility] height in centimeters E&M 2019-04-26 15:28:24 165.10 cm [facility] temperature site 2019-04-26 15:28:24 oral [facility] blood pressure, diastolic 2018-12-24 09:50:41 99 mm[Hg] [facility] blood pressure, systolic 2018-12-24 09:50:41 155 mm[Hg] [facility] pulse rate 2018-12-24 09:50:41 91` /min [facility] weight E&M 2018-12-24 09:50:41 157 [lb_av] [facility] weight in kilograms E&M 2018-12-24 09:50:41 71.36 kg [facility] height in centimeters E&M 2018-12-24 09:50:41 165.10 cm [facility] blood pressure, diastolic 2018-12-21 09:56:09 86 mm[Hg] [facility] blood pressure, systolic 2018-12-21 09:56:09 136 mm[Hg] [facility] weight E&M 2018-12-21 09:56:09 153 [lb_av] [facility] weight in kilograms E&M 2018-12-21 09:56:09 69.55 kg [facility] oxygen saturation, oximetry 2018-12-21 09:56:09 98 /min [facility] respiratory rate E&M 2018-12-21 09:56:09 16 /min [facility] pulse rate 2018-12-21 09:56:09 102 /min [facility] temperature E&M 2018-12-21 09:56:09 98.1 [degF] [facility] height in centimeters E&M 2018-12-21 09:56:09 165.10 cm [facility] temperature site 2018-12-21 09:56:09 oral [facility] blood pressure, diastolic 2018-10-25 11:52:22 89 mm[Hg] [facility] blood pressure, systolic 2018-10-25 11:52:22 166 mm[Hg] [facility] pulse rate 2018-10-25 11:52:22 83 /min [facility] weight E&M 2018-10-25 11:52:22 161 [lb_av] [facility] weight in kilograms E&M 2018-10-25 11:52:22 73.18 kg [facility] height in centimeters E&M 2018-10-25 11:52:22 165.10 cm [facility] blood pressure, diastolic 2017-12-21 10:04:46 90 mm[Hg] [facility] blood pressure, systolic 2017-12-21 10:04:46 139 mm[Hg] [facility] respiratory rate E&M 2017-12-21 10:04:46 16 /min [facility] pulse rate 2017-12-21 10:04:46 66 /min [facility] oxygen saturation, oximetry 2017-12-21 10:04:46 98 /min [facility] temperature E&M 2017-12-21 10:04:46 98.1 [degF] [facility] height in centimeters E&M 2017-12-21 10:04:46 165.10 cm [facility] weight E&M 2017-12-21 10:04:46 161 [lb_av] [facility] weight in kilograms E&M 2017-12-21 10:04:46 73.18 kg [facility] temperature site 2017-12-21 10:04:46 tympanic [facility] blood pressure, diastolic 2017-07-20 12:39:39 87 mm[Hg] [facility] blood pressure, systolic 2017-07-20 12:39:39 138 mm[Hg] [facility] pulse rate 2017-07-20 12:39:39 76 /min [facility] respiratory rate E&M 2017-07-20 12:39:39 16 /min [facility] oxygen saturation, oximetry 2017-07-20 12:39:39 97 /min [facility] temperature E&M 2017-07-20 12:39:39 98.7 [degF] [facility] weight E&M 2017-07-20 12:39:39 161.80 [lb_av] [facility] weight in kilograms E&M 2017-07-20 12:39:39 73.55 kg [facility] height in centimeters E&M 2017-07-20 12:39:39 165.10 cm [facility] temperature site 2017-07-20 12:39:39 tympanic [facility] blood pressure, diastolic 2017-04-17 10:47:27 100 mm[Hg] [facility] blood pressure, systolic 2017-04-17 10:47:27 138 mm[Hg] [facility] pulse rate 2017-04-17 10:47:27 103 /min [facility] respiratory rate E&M 2017-04-17 10:47:27 16 /min [facility] oxygen saturation, oximetry 2017-04-17 10:47:27 98 /min [facility] temperature E&M 2017-04-17 10:47:27 99.5 [degF] [facility] weight E&M 2017-04-17 10:47:27 151 [lb_av] [facility] weight in kilograms E&M 2017-04-17 10:47:27 68.64 kg [facility] height in centimeters E&M 2017-04-17 10:47:27 165.10 cm [facility] temperature site 2017-04-17 10:47:27 tympanic [facility] blood pressure, diastolic 2016-10-20 10:15:15 88 mm[Hg] [facility] blood pressure, systolic 2016-10-20 10:15:15 135 mm[Hg] [facility] pulse rate 2016-10-20 10:15:15 92 /min [facility] weight E&M 2016-10-20 10:15:15 175.13 [lb_av] [facility] weight in kilograms E&M 2016-10-20 10:15:15 79.60 kg [facility] height in centimeters E&M 2016-10-20 10:15:15 165.10 cm [facility] blood pressure, diastolic 2016-09-21 09:13:37 80 mm[Hg] [facility] blood pressure, systolic 2016-09-21 09:13:37 130 mm[Hg] [facility] pulse rate 2016-09-21 09:13:37 85 /min [facility] oxygen saturation, oximetry 2016-09-21 09:13:37 98 /min [facility] temperature E&M 2016-09-21 09:13:37 97.5 [degF] [facility] weight E&M 2016-09-21 09:13:37 175 [lb_av] [facility] weight in kilograms E&M 2016-09-21 09:13:37 79.55 kg [facility] height in centimeters E&M 2016-09-21 09:13:37 165.10 cm [facility] temperature site 2016-09-21 09:13:37 tympanic [facility] blood pressure, diastolic 2016-07-21 12:17:59 87 mm[Hg] [facility] blood pressure, systolic 2016-07-21 12:17:59 138 mm[Hg] [facility] pulse rate 2016-07-21 12:17:59 96 /min [facility] weight E&M 2016-07-21 12:17:59 175.25 [lb_av] [facility] weight in kilograms E&M 2016-07-21 12:17:59 79.66 kg [facility] height in centimeters E&M 2016-07-21 12:17:59 165.10 cm [facility] blood pressure, diastolic 2016-06-09 11:43:33 90 mm[Hg] [facility] blood pressure, systolic 2016-06-09 11:43:33 132 mm[Hg] [facility] pulse rate 2016-06-09 11:43:33 89 /min [facility] height in centimeters E&M 2016-06-09 11:43:33 165.10 cm [facility] blood pressure, diastolic 2016-05-06 09:53:46 84 mm[Hg] [facility] blood pressure, systolic 2016-05-06 09:53:46 132 mm[Hg] [facility] pulse rate 2016-05-06 09:53:46 97 /min [facility] temperature E&M 2016-05-06 09:53:46 97.5 [degF] [facility] oxygen saturation, oximetry 2016-05-06 09:53:46 98 /min [facility] weight E&M 2016-05-06 09:53:46 181.60 [lb_av] [facility] weight in kilograms E&M 2016-05-06 09:53:46 82.55 kg [facility] height in centimeters E&M 2016-05-06 09:53:46 165.10 cm [facility] temperature site 2016-05-06 09:53:46 tympanic [facility] Procedures Procedure Date / Time Performed Performing Clinician Source TDAP VACCINE, >11 YRS, IM 2024-09-18 16:08[facility]2 [facility] 19 MAGALYS SUCROSE VACCINE 12+, [id number], 0.3 ML (30 MCG), IM PFIZER (NAVARRO TOP) 2024-09-18 16:08:41 [facility] FLU VACC (), 6 MO-64 YRS, .5ML, IM, TIV (FLUCELVAX) 2024-09-18 16:08:41 [facility] FLU VACC ([id number]), 6 MO-64 YRS, .5ML, IM, QUAD (FLUCELVAX) 2023-11-28 16:36:46 [facility] SARS-COV-2 COVID 19 MAGALYS SUCROSE VACCINE 12+, , 0.3 ML (30 MCG), IM PFIZER (NAVARRO TOP) 2023-11-28 16:36:46 Luis [facility] SMALLPOX, MONKEYPOX VACCINE, 18+ YRS, 0.1 ML,ID 2022-10-10 17:45:22 Luis [facility] IMMTRAC2 CONSENT 2022-10-10 06:01:00 Doctor Shane signed, Mic[facility] SMALLPOX, MONKEYPOX VACCINE, 0.5ML,SQ 2022-09-12 20:46:33 Luis [facility] FLU VACC (), 6 MO-64 YRS, .5ML, IM, QUAD (FLUCELVAX) 2022-09-12 20:14:06 [facility] SARS-COV-2 COVID-19 VACCINE 12 YRS+, BIVALENT 0.5ML, IM (MODERNA BOOSTER) 2022-09-12 20:14:06 [facility] IMMTRAC2 CONSENT 2022-09-12 06:01:00 Doctor Lynn signed, [facility] MENACTRA (MCV4-D) VACCINE 2022-04-25 20:08:00 [facility] Spherocyl, SV, plano to +/- 4.00d sphere, 0.12 to 2.00d cyl, per lens 2017-11-26 11:18:56 Ashlee Verdugo [facility] Frames, purchases 2017-11-26 11:18:34 Ashlee Verdugo [facility] Est Patient Intermediate Opt - [id number] 2017-11-24 11:18:26 Nestor Guzman [facility] Medical Case Management 2017-02-23 17:27:29 Pipe Kasia [facility] Medical Case Management 2017-02-16 17:56:43 Pipe Kasia [facility] Medical Case Management 2017-02-13 18:42:43 Pipe Kasia [facility] Dispensing Visit (UNLIVSTED OPHTHALMOLOGICAL SERVICE/PROCEDURE) 2016-07-21 09:54:30 Shashank [facility] Medical Case Management 2016-07-05 19:13:18 Pipe Kasia [facility] Medical Case Management 2016-07-04 17:24:31 Pipe Kasia [facility] Frames, purchases 2016-06-14 10:10:24 Encarnacion Shirley [facility] Spherocyl, SV, plano to +/- 4.00d sphere, 0.12 to 2.00d cyl, per lens 2016-06-14 10:09:52 [facility] Diagnostic evaluation with [facility] - [id number] 2016-06-09 13:54:25 Dc Guerrero [facility] Est Patient Intermediate Opt - [id number] 2016-06-09 09:55:53 Casa Riggs [facility] Est Patient Intermediate Opt - [id number] 2016-06-09 09:13:24 Nestor Guzman [facility] Medical Case Management 2016-05-19 16:23:45 Kasia Betancur [facility] Medical Case Management 2016-05-18 18:11:23 Pipe Kasia [facility] Medical Case Management 2016-05-17 17:22:38 Pipe Kasia [facility] Medical Case Management 2016-05-13 16:51:20 Kasia Betancur [facility] Medical Case Management 2016-05-12 17:31:08 Kasia Betancur [facility] Behavioral Health - Psychiatry 2016-05-12 14:26:13 Kasia [facility] - Service Planning Comprehensive 2016-05-06 13:01:29 Kasia Betancur [facility] - Assesment-Comprehensive [facility] 2016-05-06 13:01:29 [facility] Medical Case Management 2016-05-06 13:01:29 Kasia Betancur [facility] - Psychiatry 2016-05-06 10:34:33 Rupert Tiwari [facility] Dispensing Visit (UNLIVSTED OPHTHALMOLOGICAL SERVICE/PROCEDURE) 2012-10-25 13:23:10 [facility] 2012-10-16 16:24:53 [facility] Spherocyl, SV, plano to +/- 4.00d sphere, 0.12 to 2.00d cyl, per lens 2012-10-16 16:24:23 Encarnacion, Shirley [facility] Est Patient Intermediate Opt - [id number] 2012-10-16 16:00:28 Casa Riggs [facility] New Patient Intermediate Opt - [id number] 2012-10-16 15:26:36 Nestor Guzman [facility] Encounters Start Date/Time End Date/Time Encounter Type Admission Type Attending [facility] Care Facility Care Department Encounter ID Source 2022-08-04 14:33:04 Outpatient CHW CHW [id number] [facility] 2021-09-04 03:30:10 Emergency [facility] [id number] [facility] 2024-09-25 00:00:00 2024-09-26 08:45:29 Refill Sammy Romero [facility] ([facility]) 1.2.840.114 350.1.13.10 4.2.7.2.686 [id number] [facility] 2024-09-25 00:00:00 2024-09-25 16:38:22 Refill Apolinar Smith [facility] ([facility]) 1.2.840.114 350.1.13.10 4.2.7.2.686 [id number] [facility] 2024-09-25 00:00:00 2024-09-25 15:24:56 Refill Apolinar Smith [facility] ([facility]) 1.2.840.114 350.1.13.10 4.2.7.2.686 [id number] [facility] 2024-09-18 10:45:00 2024-09-18 11:00:00 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 [facility]-Lab Apolinar Smith [facility] ([facility]) 1.2.840.114 350.1.13.10 4.2.7.2.686 [id number] [facility] 2024-09-18 09:30:00 2024-09-18 10:00:00 Office Visit Apolinar Smith [facility] ([facility]) 1.2.840.114 350.1.13.10 4.2.7.2.686 [id number] [facility] 2024-09-18 09:30:00 2024-09-18 09:30:00 Outpatient R APOLINAR SMITH [facility] [id number] [facility] 2024-06-11 00:00:00 2024-07-13 18:21:02 Patient Secure Msg Apolinar Smith [facility] 1.2.840.114 350.1.13.10 4.2.7.2.686 [id number] [id number] [facility] 2024-06-10 00:00:00 2024-06-11 18:51:06 Patient Secure Msg Apolinar Smith [facility] 1.2.840.114 350.1.13.10 4.2.7.2.686 [id number] [facility] 2024-05-27 11:15:00 2024-05-27 11:30:00 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 [facility] 1.2.840.114 350.1.13.10 4.2.7.2.686 [id number] [facility] 2024-05-27 09:30:00 2024-05-27 10:00:00 Office Visit Apolinar Smith [facility] ([facility]) 1.2.840.114 350.1.13.10 4.2.7.2.686 [id number] [facility] 2024-05-27 09:30:00 2024-05-27 09:30:00 Outpatient R LUIS [facility] [id number] [facility] 2024-01-15 00:00:00 2024-01-15 00:00:00 Sammy Mack [facility] 1.2.840.114 350.1.13.10 4.2.7.2.686 [id number] [facility] 2024-01-10 00:00:00 2024-01-10 00:00:00 Refill [facility] 1.2.840.114 350.1.13.10 4.2.7.2.686 [id number] [facility] 2023-12-26 00:00:00 2023-12-26 00:00:00 Outpatient R LUIS APOLINAR [facility] [id number] [facility] 2023-11-28 10:15:00 2023-11-28 10:30:00 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 [facility] 1.2.840.114 350.1.13.10 4.2.7.2.686 [id number] [facility] 2023-11-28 09:00:00 2023-11-28 09:30:00 Office Visit [facility] 1.2.840.114 350.1.13.10 4.2.7.2.686 [id number] [facility] 2023-11-28 09:00:00 2023-11-28 09:00:00 Outpatient R APOLINAR SMITH [facility] [id number] [facility] 2023-10-23 15:30:00 2023-10-23 15:30:00 Outpatient R LU[facility] [id number] [facility] 2023-09-21 00:00:00 2023-09-21 00:00:00 Refill [facility] 1.2.840.114 350.1.13.10 4.2.7.2.686 [id number] [facility] 2023-09-21 00:00:00 2023-09-21 00:00:00 Refill [facility] 1.2.840.114 350.1.13.10 4.2.7.2.686 [id number] [facility] 2023-09-04 00:00:00 2023-09-04 00:00:00 Telephone [facility] 1.2.840.114 350.1.13.10 4.2.7.2.686 [id number] [facility] 2023-09-03 00:00:00 2023-09-03 00:00:00 Telephone [facility] 1.2.840.114 350.1.13.10 4.2.7.2.686 [id number] [facility] 2023-08-02 00:00:00 2023-08-02 00:00:00 Refill [facility] 1.2.840.114 350.1.13.10 4.2.7.2.686 [id number] [facility] 2023-04-18 00:00:00 2023-04-18 00:00:00 Refill [facility] 1.2.840.114 350.1.13.10 4.2.7.2.686 [id number] [facility] 2023-04-17 16:00:00 2023-04-17 16:15:00 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 [facility] 1.2.840.114 350.1.13.10 4.2.7.2.686 [id number] [facility] 2023-04-17 15:00:00 2023-04-17 15:30:00 Office Visit [facility] 1.2.840.114 350.1.13.10 4.2.7.2.686 [id number] [facility] 2023-04-17 15:00:00 2023-04-17 15:00:00 Outpatient [facility] [id number] [facility] 2023-04-17 00:00:00 2023-04-17 00:00:00 Telephone [facility] 1.2.840.114 350.1.13.10 4.2.7.2.686 [id number] [facility] 2023-04-07 14:30:00 2023-04-07 14:30:00 Outpatient R LUIS [facility] [id number] [facility] 2023-03-28 10:30:00 2023-03-28 10:30:00 Outpatient [facility] [id number] [facility] 2023-03-22 00:00:00 [facility]23-03[facility] 1.2.840.114 350.1.13.10 4.2.7.2.686 [id number] [facility] 2023-03-13 13:00:00 2023-03-13 13:00:00 Outpatient R APOLINAR SMITH [facility] [id number] [facility] 2023-02-14 00:00:00 2023-02-14 00:00:00 Refill [facility] 1.2.840.114 350.1.13.10 4.2.7.2.686 [id number] [facility] 2022-12-20 00:00:00 2022-12-20 00:00:00 Refill [facility] 1.2.840.114 350.1.13.10 4.2.7.2.686 [id number] [facility] 2022-11-24 00:00:00 2022-11-24 00:00:00 Refill [facility] 1.2.840.114 350.1.13.10 4.2.7.2.686 [id number] [facility] 2022-10-24 14:09:00 2022-10-24 14:09:00 Outpatient Myrna Pratt [facility] [id number] [facility] 2022-10-24 00:00:00 2022-10-24 00:00:00 Refill [facility] 1.2.840.114 350.1.13.10 4.2.7.2.686 [id number] [facility] 2022-10-10 13:30:00 2022-10-10 13:45:00 Nurse Visit Visit, [facility] Id Nurse [facility] 1.2840.114 350.1.13.10 4.2.7.2.686 [id number] [facility] 2022-10-10 13:30:00 2022-10-10 13:30:00 Outpatient R APOLINAR SMITH [facility] [id number] [facility] 2022-10-10 12:45:00 2022-10-10 13:00:00 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 [facility] 1.2.840.114 350.1.13.10 4.2.7.2.686 [id number] [facility] 2022-10-10 00:00:00 2022-10-10 00:00:00 Orders Only Doctor Unassigned, Micco [facility] 1.2.840.114 350.1.13.10 4.2.7.2.686 [id number] [facility] 2022-09-12 15:00:00 2022-09-12 15:15:00 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 [facility] 1.2.840.114 350.1.13.10 4.2.7.2.686 [id number] [facility] 2022-09-12 13:30:00 2022-09-12 14:00:00 Office Visit [facility] 1.2.840.114 350.1.13.10 4.2.7.2.686 [id number] [facility] 2022-09-12 13:30:00 2022-09-12 13:30:00 Outpatient R APOLINAR SMITH [facility] [id number] [facility] 2022-09-12 00:00:00 2022-09-12 00:00:00 Orders Only Doctor Unassigned, Micco [facility] 1.2.840.114 350.1.13.10 4.2.7.2.686 [id number] [facility] 2022-08-02 00:00:00 2022-08-02 00:00:00 Chari Nolan [facility] 1.2.840.114 350.1.13.10 4.2.7.2.686 [id number] [facility] 2022-07-25 14:30:00 2022-07-25 14:30:00 Outpatient Michael LUIS APOLINAR [facility] [id number] [facility] 2022-07-12 00:00:00 2022-07-12 00:00:00 Chari Nolan [facility] 1.2.840.114 350.1.13.10 4.2.7.2.686 [id number] [facility] 2022-07-12 00:00:00 2022-07-12 00:00[facility]00 [facility] 1.2.840.114 350.1.13.10 4.2.7.2.686 [id number] [facility] 2022-06-27 00:00:00 2022-06-27 00:00:00 [facility] 1.2.840.114 350.1.13.10 4.2.7.2.686 [id number] [facility] 2022-05-30 00:00:00 2022-05-30 00:00:00 Chari Nolan [facility] 1.2.840.114 350.1.13.10 4.2.7.2.686 [id number] [facility] 2022-05-11 00:00:00 2022-05-11 00:00:00 Outpatient Michael SMITH APOLINAR [facility] [id number] [facility] 2022-05-04 00:00:00 2022-05-04 00:00:00 Patient Secure Msg Doctor Unassigned, Micco [facility] 1.840.114 350.1.13.10 4.2.7.2.686 [id number] [facility] 2022-05-02 00:00:00 2022-05-02 00:00:00 Chari Nolan [facility] 1.0.114 350.1.13.10 4.2.7.2.686 [id number] [facility] 2022-04-25 14:00:00 2022-04-25 14:30:00 Office Visit [facility] 1..114 350.1.13.10 4.2.7.2.686 [id number] [facility] 2022-04-25 14:00:00 2022-04-25 14:00:00 Outpatient R LUIS APOLINAR [facility] [id number] [facility] 2022-04-05 00:00:00 2022-04-05 00:00:00 Chari Nolan [facility] 1..114 350.1.13.10 4.2.7.2.686 [id number] [facility] 2022-03-29 14:00:00 2022-03-29 14:00:00 Outpatient R APOLINAR SMITH [facility] [id number] [facility] 2022-01-21 13:00:00 2022-01-21 13:00:00 Outpatient R BRAD HARRIS [facility] [id number] [facility] 2022-01-12 08:15:00 2022-01-12 08:30:00 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 [facility] 1..114 350.1.13.10 4.2.7.2.686 [id number] [facility] 2022-01-12 08:15:00 2022-01-12 08:15:00 Outpatient R APOLINAR SMITH [facility] [id number] [facility] 2022-01-10 00:00:00 2022-01-10 00:00:00 Patient Secure Msg Doctor Unassigned, Micco [facility] 1.2840.114 350.1.13.10 4.2.7.2.686 [id number] [facility] 2022-01-07 00:00:00 2022-01-07 00:00:00 Refill Luis [facility] 1.0.114 350.1.13.10 4.2.7.2.686 [id number] [facility] 2022-01-07 00:00:00 2022-01-07 00:00:00 Refill Chari Siddiqi [facility] 1..114 350.1.13.10 4.2.7.2.686 [id number] [id number] [facility] 2021-12-28 16:30:00 2021-12-28 17:00:00 Office Visit Luis [facility] 1..114 350.1.13.10 4.2.7.2.686 [id number] [facility] 2021-12-28 16:30:00 2021-12-28 16:30:00 Outpatient R APOLINAR SMITH [facility] [id number] [facility] 2021-12-28 00:00:00 2021-12-28 00:00:00 Case Management Awa Leslie [facility] 1..114 350.1.13.10 4.2.7.2.686 [id number] [facility] 2021-12-21 15:00:00 2021-12-21 15:00:00 Outpatient R APOLINAR SMITH [facility] [id number] [facility] 2021-11-30 11:30:00 2021-11-30 11:30:00 [facility] [id number] 2021-11-30 11:30:00 2021-11-30 11:30:00 Outpatient R LU[facility] [id number] [facility] 2021-11-12 10:00:00 2021-11-12 10:00:00 Outpatient R LUIS [facility] [id number] [facility] 2021-11-10 00:00:00 2021-11-10 00:00:00 Refill [facility] 1.114 350.1.13.10 4.2.7.2.686 [id number] [facility] 2021-09-24 00:00:00 2021-09-24 00:00:00 Orders Only Doctor Unassigned, Micco [facility] 1.114 350.1.13.10 4.2.7.2.686 [id number] [facility] 2021-09-14 16:48:04 2021-09-14 16:58:04 Imm/Inj Visit Nurse, Pcp Immunizatio Hiram Zhang [facility] 1..114 350.1.13.10 4.2.7.2.686 [id number] [facility] 2021-09-14 16:50:00 2021-09-14 16:50:00 Outpatient HIRAM ROMAN [facility] [id number] [facility] 2021-09-14 00:00:00 2021-09-14 00:00:00 Refill [facility] 1.114 350.1.13.10 4.2.7.2.686 [id number] [facility] 2021-08-20 00:00:00 2021-08-20 00:00:00 Telephone Cait Hendrickson [facility] 1..114 350.1.13.10 4.2.7.2.686 [id number] [facility] 2021-08-19 09:47:45 2021-08-19 10:07:45 [facility] [place] 1..114 350.1.13.10 4.2.7.2.686 [id number] [facility] 2021-08-19 10:00:00 2021-08-19 10:00:00 Outpatient R ADAN [facility] [id number] [facility] 2021-08-11 10:49:45 2021-08-11 10:58:54 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 [facility] 1..114 350.1.13.10 4.2.7.2.686 [id number] [facility] 2021-08-11 10:00:00 2021-08-11 10:30:00 Office Visit [facility] 1.2.114 350.1.13.10 4.2.7.2.686 [id number] [facility] 2021-08-11 10:00:00 2021-08-11 10:00:00 Outpatient [facility] [id number] [facility] 2021-08-11 10:00:00 2021-08-11 10:00:00 Outpatient [facility] [id number] [facility] 2021-08-07 00:00:00 2021-08-07 00:00:00 Letter (Out) Patti García [facility] 1.2.114 350.1.13.10 4.2.7.2.686 [id number] [facility] 2021-08-06 10:48:16 2021-08-06 11:16:47 Laboratory Only Only, Ang Db Test Unknown, Attending [facility] Bayron [place] 1.840.114 350.1.13.10 4.2.7.2.686 [id number] [facility] 2021-08-06 11:00:00 2021-08-06 11:00:00 Outpatient R UNKNOWN, ATTENDING [facility] [id number] [facility] 2021-07-27 09:00:00 2021-07-27 09:00:00 Outpatient R SH[place] VITAL [facility] [id number] [facility] 2021-07-26 13:00:00 2021-07-26 13:00:00 Outpatient R APOLINAR SMITH [facility] [id number] [facility] 2021-07-26 00:00:00 2021-07-26 00:00:00 Apolinar Zavaleta [facility] 1.840.114 [id number] [facility] 2021-06-23 13:15:00 2021-06-23 13:15:00 Outpatient R SEE [facility] [id number] [facility] 2021-05-26 00:00:00 2021-05-26 00:00:00 Patient Secure Msg Doctor Unassigned, [place] 1.840.114 [id number] [facility] 2021-05-24 10:30:00 2021-05-24 10:30:00 Outpatient R [facility] [id number] [facility] 2021-05-24 09:45:39 2021-05-24 10:15:39 Office Visit [facility] 1.2.840.114 350.1.13.10 4.2.7.2.686 [id number] [facility] 2021-05-24 09:45:39 2021-05-24 10:15:39 Office Visit [facility] 1.2.840.114 350.1.13.10 4.2.7.2.686 [id number] 2021-05-05 00:00:00 2021-05-05 00:00:00 Refill [facility] 1.2.840.114 350.1.13.10 4.2.7.2.686 [id number] [facility] 2021-04-27 00:00:00 2021-04-27 00:00:00 Patient Secure Msg Doctor Unassigned, Micco [facility] 1.2.840.114 350.1.13.10 4.2.7.2.686 [id number] [facility] 2021-04-26 11:56:12 2021-04-26 12:11:12 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 [facility] 1.2.840.114 350.1.13.10 4.2.7.2.686 [id number] [facility] 2021-04-26 11:02:28 2021-04-26 11:55:04 Office Visit [facility] 1.2.840.114 350.1.13.10 4.2.7.2.686 [id number] [facility] 2021-04-26 11:00:00 2021-04-26 11:55:04 Outpatient R [facility] [id number] [facility] 2021-04-26 11:00:00 2021-04-26 11:00:00 Outpatient R [facility] [id number] [facility] 2021-02-12 00:00:00 2021-02-12 00:00:00 Refill [facility] 1.2.840.114 350.1.13.10 4.2.7.2.686 [id number] [facility] 2021-02-11 00:00:00 2021-02-11 00:00:00 Telephone [facility] 1.2.840.114 350.1.13.10 4.2.7.2.686 [id number] [facility] 2021-02-10 15:10:00 2021-02-10 15:10:00 Outpatient DRE [facility] [id number] [facility] 2021-02-10 00:00:00 2021-02-10 00:00:00 Telephone [facility] 1.2.840.114 350.1.13.10 4.2.7.2.686 [id number] [facility] 2021-02-08 00:00:00 2021-02[facility].114 350.1.13.10 4.2.7.2.686 [id number] [facility] 2021-02-07 00:00:00 2021-02-07 00:00:00 Refill [facility] 1.2.840.114 350.1.13.10 4.2.7.2.686 [id number] [facility] 2021-02-03 00:00:00 2021-02-03 00:00:00 Telephone [facility] 1.2.840.114 350.1.13.10 4.2.7.2.686 [id number] [facility] 2021-01-21 00:00:00 2021-01-21 00:00:00 Patient Outreach DreHiram [facility] 1.840.114 350.1.13.10 4.2.7.2.686 [id number] [facility] 2020-11-30 18:20:00 2020-11-30 18:20:00 Outpatient [facility] [id number] [facility] 2020-11-30 17:53:14 2020-11-30 18:13:14 Laboratory Only Lab, [facility] Ananth Mohrkelsi [facility] Office [address] 1..114 350.1.13.10 4.2.7.2.686 [id number] [facility] 2020-10-26 11:41:13 2020-10-26 11:56:13 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 [facility] 1.0.114 350.1.13.10 4.2.7.2.686 [id number] [facility] 2020-10-26 10:46:04 2020-10-26 11:16:04 Office Visit [facility] 1.0.114 350.1.13.10 4.2.7.2.686 [id number] [facility] 2020-10-26 11:00:00 2020-10-26 11:00:00 Outpatient R [facility] [id number] [facility] 2020-09-12 00:00:00 2020-09-12 00:00:00 Telephone Anastasia Brito [facility] 1.114 350.1.13.10 4.2.7.2.686 [id number] [facility] 2020-09-10 15:49:00 2020-09-10 20:08:00 Emergency Reid Pelay[facility] 1.0.114 350.1.13.10 4.2.7.2.686 [id number] [facility] 2020-03-26 00:00:00 2020-03-26 00:00:00 Telephone [facility] 1..114 350.1.13.10 4.2.7.2.686 [id number] [facility] 2020-02-26 00:00:00 2020-02-26 00:00:00 Refill [facility] 1..114 350.1.13.10 4.2.7.2.686 [id number] [facility] 2020-02-24 10:15:00 2020-02-24 10:15:00 Outpatient R ELISA [facility] [id number] [facility] 2020-02-14 00:00:00 2020-02-14 00:00:00 Telephone [facility] 1..114 350.1.13.10 4.2.7.2.686 [id number] [facility] 2020-02-04 08:30:00 2020-02-04 08:30:00 Outpatient [facility] [id number] [facility] 2020-02-04 07:20:02 2020-02-04 07:50:02 Telemedici ne Visit Sheryl Aquino [facility] 1..114 350.1.13.10 4.2.7.2.686 [id number] [facility] 2020-01-27 00:00:00 2020-01-27 00:00:00 Refill [facility] 1.2840.114 350.1.13.10 4.2.7.2.686 [id number] [facility] 2019-12-26 14:27:10 2019-12-26 19:05:00 Emergency X MARISOL ODONNELL [facility] ERT [id number] [facility] 2019-12-26 14:27:10 2019-12-26 19:05:00 Emergency Marisol Odonnell [facility] 1.2840.114 350.1.13.10 4.2.7.2.686 [id number] [facility] 2019-12-26 00:00:00 2019-12-26 00:00:00 Patient Secure Msg Doctor Unassigned, Micco [facility] 1.2.840.114 350.1.13.10 4.2.7.2.686 [id number] [facility] 2019-12-25 00:00:00 2019-12-25 00:00:00 Telephone [facility] 1.2840.114 350.1.13.10 4.2.7.2.686 [id number] [facility] 2019-12-17 10:30:00 2019-12-17 11:59:42 Outpatient R [facility] [id number] [facility] 2019-12-17 10:08:35 2019-12-17 11:59:42 Office Visit [facility] 1.2.840.114 350.1.13.10 4.2.7.2.686 [id number] [facility] 2019-12-14 00:00:00 2019-12-14 00:00:00 Patient Secure Msg Doctor Unassigned, Micco [facility] 1.2840.114 350.1.13.10 4.2.7.2.686 [id number] [facility] 2019-12-07 00:00:00 2019-12-07 00:00:00 Refill [facility] 1.2.840.114 350.1.13.10 4.2.7.2.686 [id number] [facility] 2019-12-06 00:00:00 2019-12-06 00:00:00 Telephone [facility] 1.2.840.114 350.1.13.10 4.2.7.2.686 [id number] [facility] 2019-12-02 12:24:39 2019-12-02 13:04:27 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 [facility] 1.2.840.114 350.1.13.10 4.2.7.2.686 [id number] [facility] 2019-12-02 09:31:38 2019-12-02 12:19:07 Office Visit [facility] 1.2.840.114 350.1.13.10 4.2.7.2.686 [id number] [facility] 2019-12-02 00:00:00 2019-12-02 00:00:00 Orders Only Doctor Unassigned, Micco [facility] 1.2.840.114 350.1.13.10 4.2.7.2.686 [id number] [facility] 2019-12-02 00:00:00 2019-12-02 00:00:00 Case Management Sofya Hightower [facility] 1.2.840.114 350.1.13.10 4.2.7.2.686 [id number] [facility] 2019-11-20 00:00:00 2019-11-20 00:00:00 Office Visit Rupert Tiwari Leonardo [facility] Adult Medicine Encounter/ [id number] [facility] 2019-11-15 00:00:00 2019-11-15 00:00:00 Office Visit Araceli Thomson [facility] Adult Medicine Encounter/ [id number] [facility] 2019-11-02 00:00:00 2019-11-02 00:00:00 Office Visit Rupert Tiwari [facility] Adult Medicine Encounter/ [id number] [facility] 2019-11-02 00:00:00 2019-11-02 00:00:00 Office Visit Rupert Tiwari Nancy [facility] Adult Medicine Encounter/ [id number] [facility] 2019-11-02 00:00:00 2019-11-02 00:00:00 Office Visit Extra Hours, Salo [facility] Health Services Encounter/ [id number] [facility] 2019-11-02 00:00:00 2019-11-02 00:00:00 Office Visit Extra Hours, Salo [facility] Services Encounter/ [id number] [facility] 2019-10-17 00:00:00 2019-10-17 00:00:00 Office Visit Rupert Tiwari MedAdherenc eNaomie [facility] Encounter/ [id number] [facility] 2019-10-14 00:00:00 2019-10-14 00:00:00 Office Visit Rupert Tiwari MedAdherenc e,Chuck [facility] Adult Medicine Encounter/ [id number] [facility] 2019-09-30 00:00:00 2019-09-30 00:00:00 Office Visit Araceli Thomson [facility] Adult Medicine Encounter/ [id number] [facility] 2019-09-17 00:00:00 2019-09-17 00:00:00 Office Visit Rupert Tiwari MedAdherenc eJaci [facility] Adult Medicine Encounter/ [id number] [facility] 2019-08-23 00:00:00 2019-08-23 00:00:00 Office Visit Rupert Tiwari MedAdherenc e,, Marni [facility] Encounter/ [id number] [facility] 2019-07-17 00:00:00 2019-07-17 00:00:00 Office Visit Eulogio Layton [facility] Behavioral Health Encounter/ [id number] [facility] [employer] 2019-05-21 00:00:00 2019-05-21 00:00:00 Office Visit Rupert Tiwari MedAdherenc e, Naomie hZang [facility] Adult Medicine Encounter/ [id number] [facility] 2019-05-17 00:00:00 2019-05-17 00:00:00 Office Visit Araceli Thomson [facility] Adult Medicine Encounter/ [id number] [facility] 2019-04-30 00:00:00 2019-04-30 00:00:00 Office Visit Rupert Tiwari [facility] Adult Medicine Encounter/ [id number] [facility] 2019-04-29 00:00:00 2019-04-29 00:00:00 Office Visit Caterina Palafox Erick [facility] Adult Medicine Encounter/ [id number] [facility] 2019-04-26 00:00:00 2019-04-26 00:00:00 Office Visit Rupert Tiwari [facility] Adult Medicine Encounter/ [id number] [facility] 2019-04-26 00:00:00 2019-04-26 00:00:00 Office Visit Rupert Tiwari [facility] Adult Medicine Encounter/ [id number] [facility] [employer] [facility] 2019-04-26 00:00:00 2019-04-26 00:00:00 Office Visit Rupert Tiwari [facility] Adult Medicine Encounter/ [id number] [facility] [employer] [facility] 2019-04-26 00:00:00 2019-04-26 00:00:00 Office Visit Rupert Tiwari Erick [facility] Adult Medicine Encounter/ [id number] [facility] 2019-04-25 00:00:00 2019-04-25 00:00:00 Office Visit Caterina Palafox [facility] Encounter/ [id number] [facility] 2019-04-25 00:00:00 2019-04-25 00:00:00 Office Visit Rupert Tiwari [facility] Adult Medicine Encounter/ [id number] [facility] 2019-04-25 00:00:00 2019-04-25 00:00:00 Office Visit Rupert Tiwari [facility] Adult Medicine Encounter/ [id number] [facility] 2019-03-13 00:00:00 2019-03-13 00:00:00 Office Visit Isabel Wilder [facility] Encounter/ [id number] [facility] 2019-02-27 00:00:00 2019-02-27 00:00:00 Office Visit Zuly tian,Marni [facility] Adult Medicine Encounter/ [id number] [facility] 2019-02-08 00:00:00 2019-02-08 00:00:00 Office Visit Kelli Wilkins [facility] Public Health Services Encounter/ [id number] [facility] 2019-01-15 00:00:00 2019-01-15 00:00:00 Office Visit Dc Guerrero [facility] Behavioral Health Encounter/ [id number] [facility] 2018-12-24 00:00:00 2018-12-24 00:00:00 Office Visit Dc Guerrero Maritza [facility] Behavioral Health Encounter/ [id number] [facility] 2018-12-21 00:00:00 2018-12-21 00:00:00 Office Visit Caterina Palafox [facility] Adult Medicine Encounter/ [id number] [facility] 2018-12-21 00:00:00 2018-12-21 00:00:00 Office Visit Rupert Tiwari [facility] Adult Medicine Encounter/ [id number] [facility] 2018-12-21 00:00:00 2018-12-21 00:00:00 Office Visit Rupert Tiwari Azucena [facility] Adult Medicine Encounter/ [id number] [facility] 2018-10-25 00:00:00 2018-10-25 00:00:00 Office Visit Rupert Tiwari [facility] Adult Medicine Encounter/ [id number] [facility] 2018-10-25 00:00:00 2018-10-25 00:00:00 Office Visit Rupert Tiwari [facility] Adult Medicine Encounter/ [id number] [facility] 2018-10-25 00:00:00 2018-10-25 00:00:00 Office Visit Dc Guerrero Maritza [facility] Behavioral Health Encounter/ [id number] [facility] 2018-10-25 00:00:00 2018-10-25 00:00:00 Office Visit Rupert Tiwari Jonah [facility] Adult Medicine Encounter/ [id number] [facility] 2018-10-08 00:00:00 2018-10-08 00:00:00 Office Visit Rupert TiwariAdhernguyen Lori [facility] Adult Medicine Encounter/ [id number] [facility] 2018-10-05 00:00:00 2018-10-05 00:00:00 Office Visit Vanessa Loomis [facility] Encounter/ [id number] [facility] 2018-05-22 00:00:00 2018-05-22 00:00:00 Office Visit Rupert Tiwari [facility] Adult Medicine Encounter/ [id number] [facility] 2018-05-21 00:00:00 2018-05-21 00:00:00 Office Visit Rupert Tiwari [facility] Adult Medicine Encounter/ [id number] [facility] 2018-05-21 00:00:00 2018-05-21 00:00:00 Office Visit Rupert Tiwari [facility] Adult Medicine Encounter/ [id number] [facility] 2018-05-21 00:00:00 2018-05-21 00:00:00 Office Visit Rupert Tiwari [facility] Adult Medicine Encounter/ [id number] [facility] 2018-04-03 00:00:00 2018-04-03 00:00:00 Office Visit Rupert Tiwari Lori [facility] Adult Medicine Encounter/ [id number] [facility] 2018-04-01 00:00:00 2018-04-01 00:00:00 Office Visit Rupert Tiwari Lori [facility] Adult Medicine Encounter/ [id number] [facility] 2018-03-07 00:00:00 2018-03-07 00:00:00 Office Visit Rupert Tiwari Lori [facility] Adult Medicine Encounter/ [id number] [facility] 2018-03-06 00:00:00 2018-03-06 00:00:00 Office Visit Rupert Tiwari Lori [facility] Adult Medicine Encounter/ [id number] [facility] 2018-01-03 00:00:00 2018-01-03 00:00:00 Office Visit Elva Brown [facility] Encounter/ [id number] [facility] 2017-12-21 00:00:00 2017-12-21 00:00:00 Office Visit Denise Wilder [facility] Adult Medicine Encounter/ [id number] [facility] 2017-12-21 00:00:00 2017-12-21 00:00:00 Office Visit Rupert Tiwari [facility] Adult Medicine Encounter/ [id number] [facility] 2017-12-21 00:00:00 2017-12-21 00:00:00 Office Visit Rupert Tiwari [facility] Adult Medicine Encounter/ [id number] [facility] 2017-12-21 00:00:00 2017-12-21 00:00:00 Office Visit Rupert Tiwari Azucena [facility] Adult Medicine Encounter/ [id number] [facility] 2017-12-21 00:00:00 2017-12-21 00:00:00 Office Visit Ashlee Verdugo [facility] Vision Encounter/ [id number] [facility] 2017-11-24 00:00:00 2017-11-24 00:00:00 Office Visit Rupert Tiwari [facility] Adult Medicine Encounter/ [id number] [facility] 2017-11-24 00:00:00 2017-11-24 00:00:00 Office Visit Ashlee Verdugo [facility] Vision Encounter/ [id number] [facility] 2017-11-24 00:00:00 2017-11-24 00:00:00 Office Visit Nestor Guzman [facility] Vision Encounter/ [id number] [facility] 2017-11-24 00:00:00 2017-11-24 00:00:00 Office Visit Nestor Guzman [facility] Vision Encounter/ [id number] [facility] 2017-11-24 00:00:00 2017-11-24 00:00:00 Office Visit Nestor Guzman [facility] Vision Encounter/ [id number] [facility] 2017-11-24 00:00:00 2017-11-24 00:00:00 Office Visit Nestor Guzman Laurie [facility] Vision Encounter/ [id number] [facility] 2017-11-22 00:00:00 2017-11-22 00:00:00 Office Visit Rupert Tiwari Lori [facility] Adult Medicine Encounter/ [id number] [facility] 2017-11-22 00:00:00 2017-11-22 00:00:00 Office Visit Silvia Hassan Lori [facility] Adult Medicine Encounter/ [id number] [facility] 2017-11-21 00:00:00 2017-11-21 00:00:00 Office Visit Rupert Tiwari Lori [facility] Adult Medicine Encounter/ [id number] [facility] 2017-11-16 00:00:00 2017-11-16 00:00:00 Office Visit Silvia Hassan Lori [facility] Adult Medicine Encounter/ [id number] [facility] 2017-11-15 00:00:00 2017-11-15 00:00:00 Office Visit Leticia Linder [facility] Encounter/ [id number] [facility] 2017-10-05 00:00:00 2017-10-05 00:00:00 Office Visit [facility] Encounter/ [id number] [facility] 2017-08-01 00:00:00 2017-08-01 00:00:00 Office Visit Rupert Tiwari Lori [facility] Adult Medicine Encounter/ [id number] [facility] 2017-07-20 00:00:00 2017-07-20 00:00:00 Office Visit Rupert Tiwari [facility] Adult Medicine Encounter/ [id number] [facility] 2017-07-20 00:00:00 2017-07-20 00:00:00 Office Visit Rupert Tiwari Azucena [facility] Adult Medicine Encounter/ [id number] [facility] 2017-06-16 00:00:00 2017-06-16 00:00:00 Office Visit Rupert Tiwari [facility] Adult Medicine Encounter/ [id number] [facility] 2017-06-16 00:00:00 2017-06-16 00:00:00 Office Visit Denise Wilder [facility] Adult Medicine Encounter/ [id number] [facility] 2017-05-15 00:00:00 2017-05-15 00:00:00 Office Visit Rupert Tiwari [facility] Adult Medicine Encounter/ [id number] [facility] 2017-04-17 00:00:00 2017-04-17 00:00:00 Office Visit Camila Woodard [facility] Quirk Sander Encounter/ [id number] [facility] 2017-04-17 00:00:00 2017-04-17 00:00:00 Office Visit Samantha Cast [facility] Quirk Sander Encounter/ [id number] [facility] 2017-04-17 00:00:00 2017-04-17 00:00:00 Office Visit Rupert Tiwari [facility] Adult Medicine Encounter/ [id number] [facility] 2017-04-17 00:00:00 2017-04-17 00:00:00 Office Visit Rupert Tiwari [facility] Adult Medicine Encounter/ [id number] [facility] 2017-04-17 00:00:00 2017-04-17 00:00:00 Office Visit Rupert Tiwari Azucena [facility] Adult Medicine Encounter/ [id number] [facility] 2017-02-23 00:00:00 2017-02-23 00:00:00 Office Visit Kasia Betancur [facility] Quirk Sander Encounter/ [id number] [facility] 2017-02-20 00:00:00 2017-02-20 00:00:00 Office Visit aKsia Betancur [facility] Quirk Sander Encounter/ [id number] [facility] 2017-02-16 00:00:00 2017-02-16 00:00:00 Office Visit Kasia Betancur [facility] Quirk Sander Encounter/ [id number] [facility] 2017-02-16 00:00:00 2017-02-16 00:00:00 Office Visit Kasia Betancur [facility] Quirk Sander Encounter/ [id number] [facility] 2017-02-13 00:00:00 2017-02-13 00:00:00 Office Visit Kasia Betancur [facility] Quirk Sander Encounter/ [id number] [facility] 2017-01-30 00:00:00 2017-01-30 00:00:00 Office Visit Robby Edwards [facility] Behavioral Health Encounter/ [id number] [facility] 2017-01-30 00:00:00 2017-01-30 00:00:00 Office Visit Robby Edwards [facility] Behavioral Health Encounter/ [id number] [facility] 2017-01-29 00:00:00 2017-01-29 00:00:00 Office Visit Robby Edwards [facility] Behavioral Health Encounter/ [id number] [facility] 2017-01-29 00:00:00 2017-01-29 00:00:00 Office Visit Robby Edwards [facility] Behavioral Health Encounter/ [id number] [facility] 2017-01-24 00:00:00 2017-01-24 00:00:00 Office Visit Az Islas [facility] Adult Medicine Encounter/ [id number] [facility] 2017-01-18 00:00:00 2017-01-18 00:00:00 Office Visit Rupert Tiwari [facility] Adult Medicine Encounter/ [id number] [facility] 2017-01-18 00:00:00 2017-01-18 00:00:00 Office Visit Rupert Tiwari [facility] Adult Medicine Encounter/ [id number] [facility] 2017-01-17 00:00:00 2017-01-17 00:00:00 Office Visit Saloni Gil [facility] Adult Medicine Encounter/ [id number] [facility] 2016-12-28 00:00:00 2016-12-28 00:00:00 Office Visit Robby Edwards [facility] Behavioral Health Encounter/ [id number] [facility] 2016-12-28 00:00:00 2016-12-28 00:00:00 Office Visit Rob[facility] Edwards [facility] [facility] Encounter/ [id number] [facility] 2016-11-28 00:00:00 2016-11-28 00:00:00 Office Visit Sneha Dan [facility] Adult Medicine Encounter/ [id number] [facility] 2016-10-20 00:00:00 2016-10-20 00:00:00 Office Visit Dc Guerrero [facility] Behavioral Health Encounter/ [id number] [facility] 2016-10-20 00:00:00 2016-10-20 00:00:00 Office Visit Dc Guerrero Adam [facility] Behavioral Health Encounter/ [id number] [facility] 2016-10-17 00:00:00 2016-10-17 00:00:00 Office Visit Dc Guerrero [facility] Behavioral Health Encounter/ [id number] [facility] 2016-10-17 00:00:00 2016-10-17 00:00:00 Office Visit Dc Guerrero [facility] Behavioral Health Encounter/ [id number] [facility] 2016-10-17 00:00:00 2016-10-17 00:00:00 Office Visit Dc Guerrero [facility] Behavioral Health Encounter/ [id number] [facility] 2016-10-16 00:00:00 2016-10-16 00:00:00 Office Visit Dc Guerrero [facility] Behavioral Health Encounter/ [id number] [facility] 2016-09-21 00:00:00 2016-09-21 00:00:00 Office Visit Rupert Tiwari [facility] Adult Medicine Encounter/ [id number] [facility] 2016-09-21 00:00:00 2016-09-21 00:00:00 Office Visit Rupert Tiwari [facility] Adult Medicine Encounter/ [id number] [facility] 2016-09-21 00:00:00 2016-09-21 00:00:00 Office Visit Rupert Tiwari [facility] Adult Medicine Encounter/ [id number] [facility] 2016-09-21 00:00:00 2016-09-21 00:00:00 Office Visit Caterina Palafox [facility] Adult Medicine Encounter/ [id number] [facility] 2016-09-21 00:00:00 2016-09-21 00:00:00 Office Visit Rupert Tiwari [facility] Adult Medicine Encounter/ [id number] [facility] 2016-09-21 00:00:00 2016-09-21 00:00:00 Office Visit Rupert Tiwari Azucena [facility] Adult Medicine Encounter/ [id number] [facility] 2016-09-20 00:00:00 2016-09-20 00:00:00 Office Visit Dc Guerrero [facility] Behavioral Health Encounter/ [id number] [facility] 2016-09-19 00:00:00 2016-09-19 00:00:00 Office Visit Dc Guerrero [facility] Behavioral Health Encounter/ [id number] [facility] 2016-09-14 00:00:00 2016-09-14 00:00:00 Office Visit Sneha Dan [facility] Adult Medicine Encounter/ [id number] [facility] 2016-09-02 00:00:00 2016-09-02 00:00:00 Office Visit Dc Guerrero [facility] Behavioral Health Encounter/ [id number] [facility] 2016-09-02 00:00:00 2016-09-02 00:00:00 Office Visit Dc Guerrero [facility] Behavioral Health Encounter/ [id number] [facility] 2016-07-21 00:00:00 2016-07-21 00:00:00 Office Visit Casa Riggs [facility] Vision Encounter/ [id number] [facility] 2016-07-21 00:00:00 2016-07-21 00:00:00 Office Visit Rupert Tiwari [facility] Adult Medicine Encounter/ [id number] [facility] 2016-07-21 00:00:00 2016-07-21 00:00:00 Office Visit Dc Guerrero Adam [facility] Behavioral Health Encounter/ [id number] [facility]:00 2016-07-21 00:00:00 Office Visit Shirley Encarnacion [facility] Vision Encounter/ [id number] [facility] 2016-07-12 00:00:00 2016-07-12 00:00:00 Office Visit Rupert Tiwari Leslie Iglesias, Diana [facility] Encounter/ [id number] [facility] 2016-07-12 00:00:00 2016-07-12 00:00:00 Office Visit Dc Guerrero [facility] Behavioral Health Encounter/ [id number] [facility] 2016-07-12 00:00:00 2016-07-12 00:00:00 Office Visit Dc Guerrero [facility] Behavioral Health Encounter/ [id number] [facility] 2016-07-05 00:00:00 2016-07-05 00:00:00 Office Visit Kasia Betancur [facility] Quirk Sander Encounter/ [id number] [facility] 2016-07-04 00:00:00 2016-07-04 00:00:00 Office Visit Kasia Betancur [facility] Quirk Sander Encounter/ [id number] [facility] 2016-07-01 00:00:00 2016-07-01 00:00:00 Office Visit Caterina Palafox Raul Wallace, Sabrina [facility] Encounter/ [id number] [facility] 2016-06-09 00:00:00 2016-06-09 00:00:00 Office Visit Shirley Encarnacion [facility] Vision Encounter/ [id number] [facility] 2016-06-09 00:00:00 2016-06-09 00:00:00 Office Visit Dc Guerrero Glenn [facility] Behavioral Health Encounter/ [id number] [facility] 2016-06-09 00:00:00 2016-06-09 00:00:00 Office Visit Casa Riggs [facility] Vision Encounter/ [id number] [facility] 2016-06-09 00:00:00 2016-06-09 00:00:00 Office Visit Casa Riggs [facility] Vision Encounter/ [id number] [facility] 2016-06-09 00:00:00 2016-06-09 00:00:00 Office Visit Casa Riggs Eva [facility] Vision Encounter/ [id number] [facility] 2016-06-09 00:00:00 2016-06-09 00:00:00 Office Visit Nestor Guzman [facility] Vision Encounter/ [id number] [facility] 2016-06-09 00:00:00 2016-06-09 00:00:00 Office Visit Nestor Guzman [facility] Vision Encounter/ [id number] [facility] 2016-06-09 00:00:00 2016-06-09 00:00:00 Office Visit Nestor Guzman [facility] Vision Encounter/ [id number] [facility] 2016-06-09 00:00:00 2016-06-09 00:00:00 Office Visit Nestor Guzman Cecilia [facility] Vision Encounter/ [id number] [facility] 2016-06-07 00:00:00 2016-06-07 00:00:00 [facility] [id number] [facility] 2016-05-19 00:00:00 2016-05-19 00:00:00 Office Visit Kasia Betancur [facility] Quirk Sander Encounter/ [id number] [facility] 2016-05-18 00:00:00 2016-05-18 00:00:00 Office Visit Kasia Betancur [facility] Quirk Sander Encounter/ [id number] [facility] 2016-05-17 00:00:00 2016-05-17 00:00:00 Office Visit Kasia Betancur [facility] Quirk Sander Encounter/ [id number] [facility] 2016-05-13 00:00:00 2016-05-13 00:00:00 Office Visit Rupert Tiwari [facility] Adult Medicine Encounter/ [id number] [facility] 2016-05-13 00:00:00 2016-05-13 00:00:00 Office Visit Kasia Betancur [facility] Quirk Sander Encounter/ [id number] [facility] 2016-05-13 00:00:00 2016-05-13 00:00:00 Office Visit Rupert Tiwari [facility] Adult Medicine Encounter/ [id number] [facility] 2016-05-12 00:00:00 2016-05-12 00:00:00 Office Visit Kasia Betancur [facility] Quirk Sander Encounter/ [id number] [facility] 2016-05-06 00:00:00 2016-05-06 00:00:00 Office Visit Rupert Tiwari [facility] Adult Medicine Encounter/ [id number] [facility] 2016-05-06 00:00:00 2016-05-06 00:00:00 Office Visit Rupert Tiwari [facility] Adult Medicine Encounter/ [id number] [facility] 2016-05-06 00:00:00 2016-05-06 00:00:00 Office Visit Kasia Betancur [facility] Quirk Sander Encounter/ [id number] [facility] 2016-05-06 00:00:00 2016-05-06 00:00:00 Office Visit Kasia Betancur [facility] Quirk Sander Encounter/ [id number] [facility] 2016-05-06 00:00:00 2016-05-06 00:00:00 Office Visit Kasia Betancur Sandra Rocha, Jessenia [facility] Quirk Sander Encounter/ [id number] [facility] 2016-05-06 00:00:00 2016-05-06 00:00:00 Office Visit Rupert Tiwari [facility] Adult Medicine Encounter/ [id number] [facility] 2016-05-06 00:00:00 2016-05-06 00:00:00 Office Visit Rupert Tiwari [facility] Adult Medicine Encounter/ [id number] [facility] 2016-05-06 00:00:00 2016-05-06 00:00:00 Office Visit Rupert Tiwari Sandra Davila, Yolie Carroll [facility] Adult Medicine Encounter/ [id number] [facility] 2016-05-06 00:00:00 2016-05-06 00:00:00 Office Visit Ameena Stringer [facility] Adult Medicine Encounter/ [id number] [facility] 2016-05-06 00:00:00 2016-05-06 00:00:00 Office Visit Ameena Stringer [facility] Adult Medicine Encounter/ [id number] [facility] 2016-05-06 00:00:00 2016-05-06 00:00:00 Office Visit Ameena Stringer [facility] Adult Medicine Encounter/ [id number] [facility] 2016-05-05 00:00:00 2016-05-05 00:00:00 Office Visit Ivory Fontanez [facility] Behavioral Health Encounter/ [id number] [facility] 2016-04-28 00:00:00 2016-04-28 00:00:00 Office Visit Kaleigh Finney [facility] Adult Medicine Encounter/ [id number] [facility] 2016-04-15 00:00:00 2016-04-15 00:00:00 Office Visit Rupert Tiwari [facility] Adult Medicine Encounter/ [id number] [facility] 2016-04-15 00:00:00 2016-04-15 00:00:00 Office Visit Kiel [facility] Encounter/ [id number] [facility] 2016-04-15 00:00:00 2016-04-15 00:00:00 Office Visit Rupert Tiwari [facility] Encounter/ [id number] [facility] 2014-09-04 00:00:00 2014-09-04 00:00:00 Office Visit Jamal Zelaya [facility] Encounter/ [id number] [facility] 2012-10-25 00:00:00 2012-10-25 00:00:00 Office Visit Nestor Guzman [facility] Vision Encounter/ [id number] [facility] 2012-10-25 00:00:00 2012-10-25 00:00:00 Office Visit Shirley Encarnacion [facility] Vision Encounter/ [id number] [facility] 2012-10-16 00:00:00 2012-10-16 00:00:00 Office Visit Shirley Encarnacion [facility] Vision Encounter/ [id number] [facility] 2012-10-16 00:00:00 2012-10-16 00:00:00 Office Visit Casa Riggs Eva [facility] Vision Encounter/ [id number] [facility] 2012-10-16 00:00:00 2012-10-16 00:00:00 Office Visit Nestor Guzman Cecilia [facility] Vision Encounter/ [id number] [facility] 2012-10-16 00:00:00 2012-10-16 00:00:00 Office Visit Alejandro Saenz [facility] Adult Medicine Encounter/ [id number] [facility] Results Test Description Test Time Test Comments Results Result Co mments Source [facility], [id number] 11:10:00* Test Item Value Reference Range Interpretation Comme nts LDL cholesterol, serum (test code = 2089-1) 89 mg/dL 0-99 [facility], [id number] 11:10:00* Test Item Value Reference Range Interpretation Comme nts HDL cholesterol, serum (test code = 2085-9) 29 mg/dL >39 L [facility]lyceride, serum, [id number] 11:10:00* Test Item Value Reference Range Interpretation Comme nts triglyceride, serum, fasting (test code = 2571-8) 272 mg/dL 0-149 H [facility]cholesterol, [id number] 11:10:00* Test Item Value Reference Range Interpretation Comme nts cholesterol, serum (test cod e = 2093-3) 172 mg/dL 100-199 [facility]T-helper cells (CD4) as percent of blood lymphocytes 2019-11-02 11:10:00* Test Item Value Reference Range Interpretation Comme nts T-helper cells (CD4) as perc ent of blood lymphocytes (test code = 8123-2) 37.8 % 30.8-58.5 [facility]-helper cells (CD4) [id number] 11:10:00* Test Item Value Reference Range Interpretation Comme nts T-helper cells (CD4) count ( test code = 23848-3) 605 /UL [phone] [facility]T-suppressor cells (CD8) as percent of blood lymphocytes 2019-11-02 11:10:00* Test Item Value Reference Range Interpretation Comme nts T-suppressor cells (CD8) as percent of blood lymphocytes (test code = 3517) 46.6 % 12.0-35.5 H [facility] [id number] 11:10:00* Test Item Value Reference Range Interpretation Comme nts absolute CD8 (test code = 39445) 746 (unknown unit) 109-897 [facility] plasma reagin antibody, [id number] 11:10:00* Test Item Value Reference Range Interpretation Comme nts rapid plasma reagin antibody, serum (test code = 5291-0) 1:2 See_Comment H [Automated messa ge] The system which generated this result transmitted reference range: NonRea<1:1. The reference range was not used to interpret this result as normal/abnormal. [facility]HIV-1RNA, serum, by PCR, [id number] 11:10:00 * Test Item Value Reference Range Interpretation Comme nts HIV-1RNA, serum, by PCR, paula ntitative (test code = 88973) 500 /mL [facility] Clevelandvery low density [id number] 11:10:00* Test Item Value Reference Range Interpretation Comme nts very low density lipoprotein s (test code = 2091-7) 54 mg/dL 5-40 H [facility] Clevelandalanine aminotransferase (SGPT), [id number] 11:10:00 * Test Item Value Reference Range Interpretation Comme nts alanine aminotransferase (SG PT), serum (test code = 1742-6) 63 1/L 0-44 H [facility] Clevelandaspartate aminotransferase (SGOT), [id number] 11:10:00* Test Item Value Reference Range Interpretation Comme nts aspartate aminotransferase ( SGOT), serum (test code = 1920-8) 37 1/L 0-40 [facility] Clevelandalkaline phosphatase, [id number] 11:10:00* Test Item Value Reference Range Interpretation Comme nts alkaline phosphatase, serum (test code = 1783-0) 80 1/L 39-117 [facility]bilirubin, serum, [id number] 11:10:00* Test Item Value Reference Range Interpretation Comme nts bilirubin, serum, total ([facility] t code = 1975-2) 0.6 mg/dL 0.0-1.2 [facility] Healthalbumin/globulin ratio, [id number] 11:10:00* Test Item Value Reference Range Interpretation Comme nts albumin/globulin ratio, serum (test code = 1759-0) 1.2 (unknown unit) 1.2-2.2 [facility] Healthglobulin, [id number] 11:10:00* Test Item Value Reference Range Interpretation Comme nts globulin, serum (test code = 2336-6) 3.7 (unknown unit) 1.5-4.5 [facility] Healthalbumin, [id number] 11:10:00* Test Item Value Reference Range Interpretation Comme nts albumin, serum (test code = 1751-7) 4.3 g/dL 3.5-5.5 [facility] Healthprotein, total, [id number] 11:10:00* Test Item Value Reference Range Interpretation Comme nts protein, total, serum (test code = 2885-2) 8.0 g/dL 6.0-8.5 [facility] Healthcalcium, [id number] 11:10:00* Test Item Value Reference Range Interpretation Comme nts calcium, serum (test code = 2000-8) 8.8 mg/dL 8.7-10.2 [facility] dioxide, venous [id number] 11:10:00* Test Item Value Reference Range Interpretation Comme nts carbon dioxide, venous blood (test code = 2027-1) 20 mmol/L 20-29 [facility] Healthchloride, [id number] 11:10:00* Test Item Value Reference Range Interpretation Comme nts chloride, serum (test code = 2075-0) 100 mmol/L 96-106 [facility] Healthpotassium, [id number] 11:10:00* Test Item Value Reference Range Interpretation Comme nts potassium, serum (test code = 2823-3) 4.0 mmol/L 3.5-5.2 [facility]levelandsodium, [id number] 11:10:00* Test Item Value Reference Range Interpretation Comme nts sodium, serum (test code = 2951-2) 134 mmol/L 134-144 [facility] Clevelandurea nitrogen/creatinine ratio, [id number] 11:10:00 * Test Item Value Reference Range Interpretation Comme nts urea nitrogen/creatinine ratio, serum (test code = 3097-3) 12 (unknown unit) 9-20 [facility] HealtheGFR if [id number] 11:10:00* Test Item Value Reference Range Interpretation Comme nts eGFR if (test code = 38063-1) 101 mL/min/{1.73 m2} >59 [facility] ClevelandEstimated Glomerular Filtration Rate (calc)2019-11-02 11:10:00* Test Item Value Reference Range Interpretation Comme nts Estimated Glomerular Filtration Rate (calc) (test code = 79716-8) 88 mL/min/{1.73 m2} >59 [facility] Clevelandcreatinine, [id number] 11:10:00* Test Item Value Reference Range Interpretation Comme nts creatinine, serum (test code = 2160-0) 1.05 mg/dL 0.76-1.27 [facility] Clevelandurea nitrogen, [id number] 11:10:00* Test Item Value Reference Range Interpretation Comme nts urea nitrogen, blood (test c ode = 3094-0) 13 mg/dL 6-24 [facility] Clevelandblood glucose, [id number] 11:10:00* Test Item Value Reference Range Interpretation Comme nts blood glucose, random (test code = 2339-0) 327 mg/dL 65-99 H [facility] Clevelandimmature granulocytes, percentage of total cells, blood 2019-11-02 11:10:00* Test Item Value Reference Range Interpretation Comme [facility] immature granulocytes, perce ntage of total cells, blood (test code = 16006-9) 0 % [facility] Clevelandbasophil count, [id number] 11:10:00* Test Item Value Reference Range Interpretation Comme [facility] basophil count, absolute (te st code = 30355-7) 0.0 x10E3/uL 0.0-0.2 [facility] ClevelandEosinophil Absolute [id number] 11:10:00* Test Item Value Reference Range Interpretation Comme nts Eosinophil Absolute Count (t est code = 14486-1) 0.1 X10E3/UL 0.0-0.4 [facility] Clevelandmonocyte count, blood, [id number] 11:10:00* Test Item Value Reference Range Interpretation Comme nts monocyte count, blood, autom ated (test code = 742-7) 0.2 X10E3/UL 0.1-0.9 [facility] Clevelandlymphocyte count, blood, [id number] 11:10:00* Test Item Value Reference Range Interpretation Comme nts lymphocyte count, blood, automated (test code = 731-0) 1.6 X10E3/UL 0.7-3.1 [facility] ClevelandAbsolute [id number] 11:10:00* Test Item Value Reference Range Interpretation Comme nts Absolute Neutrophils (test c ode = 66054-2) 3.9 X10E3/UL 1.4-7.0 [facility]basophils as percent of blood [id number] 11:10:00* Test Item Value Reference Range Interpretation Comme nts basophils as percent of bloo d leukocytes (test code = 707-0) 0 % [facility]level[facility]osinophils as percent of blood [id number] 11:10:00* Test Item Value Reference Range Interpretation Comme nts eosinophils as percent of bl ood leukocytes (test code = 713-8) 2 % [facility] Clevelandmonocytes as percent of blood [id number] 11:10:00* Test Item Value Reference Range Interpretation Comme nts monocytes as percent of bloo d leukocytes (test code = 5905-5) 4 % [facility] Healthlymphocytes as percent of blood [id number] 11:10:00* Test Item Value Reference Range Interpretation Comme nts lymphocytes as percent of bl ood leukocytes (test code = 736-9) 28 % [facility] Clevelandneutrophils as percent of blood [id number] 11:10:00* Test Item Value Reference Range Interpretation Comme nts neutrophils as percent of bl ood leukocytes (test code = 770-8) 66 % [facility] Clevelandplatelet [id number] 11:10:00* Test Item Value Reference Range Interpretation Comme [facility] platelet count (test code = 777-3) 177 X10E3/UL 150-450 [facility] Clevelandred blood cell distribution [id number] 11:10:00* Test Item Value Reference Range Interpretation Comme [facility] red blood cell distribution width (test code = 788-0) 14.7 % 12.3-15.4 [facility] corpuscular hemoglobin concentration, [id number] 11:10:00* Test Item Value Reference Range Interpretation Comme [facility] mean corpuscular hemoglobin concentration, RBC (test code = 786-4) 34.5 G/DL 31.5-35.7 [facility] corpuscular hemoglobin, [id number] 11:10:00* Test Item Value Reference Range Interpretation Comme [facility] mean corpuscular hemoglobin, RBC (test code = 785-6) 29.3 pg 26.6-33.0 [facility] corpuscular volume, [id number] 11:10:00* Test Item Value Reference Range Interpretation Comme [facility] mean corpuscular volume, RBC (test code = 787-2) 85 fL 79-97 [facility] Clevelandhematocrit, [id number] 11:10:00* Test Item Value Reference Range Interpretation Comme [facility] hematocrit, blood (test code = 4544-3) 44.0 % 37.5-51. 0 [facility] Clevelandhemoglobin, [id number] 11:10:00* Test Item Value Reference Range Interpretation Comme [facility] hemoglobin, blood (test code = 718-7) 15.2 g/dL 13.0-17.7 [facility] Clevelanderythrocyte (RBC) [id number] 11:10:00* Test Item Value Reference Range Interpretation Comme [facility] erythrocyte (RBC) count (janett t code = 789-8) 5.19 X10E6/UL 4.14-5.80 [facility] Clevelandleukocyte count, [id number] 11:10:00* Test Item Value Reference Range Interpretation Comme [facility] leukocyte count, blood (test code = 6690-2) 5.9 X10E3/UL 3.4-10.8 [facility] ClevelandCD4/CD8 [id number] 11:10:00* Test Item Value [facility]CD[facility] ratio (test code = 60972) 0.81 (unknown unit) 0.92-3.72 L [facility] ClevelandLDL cholesterol, [id number] 16:37:00* Test Item Value Reference Range Interpretation Comme [facility] LDL cholesterol, serum (test code = 2089-1) 62 mg/dL 0-99 [facility] ClevelandHDL cholesterol, [id number] 16:37:00* Test Item Value Reference Range Interpretation Comme [facility] HDL cholesterol, serum (test code = 2085-9) 27 mg/dL >39 L [facility] Clevelandtriglyceride, serum, [id number] 16:37:00* Test Item Value Reference Range Interpretation Comme [facility] triglyceride, serum, fasting (test code = 2571-8) 331 mg/dL 0-149 [facility] Clevelandcholesterol, [id number] 16:37:00* Test Item Value Reference Range Interpretation Comme [facility] cholesterol, serum (test cod e = 2093-3) 155 mg/dL 100-199 [facility] Clevelandver low density aajuynwexvml4277-73-18 16:37:00* Test Item Value Reference Range Interpretation Comme nts very low density lipoprotein s (test code = 2091-7) 66 mg/dL 5-40 H [facility] ClevelandTreponema pallidum antibodies, by particle agglutination 2019-04-26 16:26:00* Test Item Value Reference Range Interpretation Comme nts Treponema pallidum antibodie s, by particle agglutination (test code = 49911-4) Positive Negative A [facility] Clevelandhemoglobin A1C, blood, as % of total [id number] 16:26:00* Test Item Value Reference Range Interpretation Comme nts hemoglobin A1C, blood, as % of total hemoglobin (test code = 4548-4) 10.3 % 4.8-5.6 H [facility] ClevelandT-helper cells (CD4) as percent of blood lymphocytes 2019-04-26 16:26:00* Test Item Value Reference Range Interpretation Comme nts T-helper cells (CD4) as perc ent of blood lymphocytes (test code = 8123-2) 44.1 % 30.8-58.5 [facility] ClevelandT-helper cells (CD4) [id number] 16:26:00* Test Item Value Reference Range Interpretation Comme nts T-helper cells (CD4) count ( test code = 16548-6) 573 /UL 359-1519 [facility] Clevelandhepatitis C antibody, [id number] 16:26:00* Test Item Value Reference Range Interpretation Comme nts hepatitis C antibody, serum (test code = 5199-5) <0.1 0.0-0.9 [facility] Clevelandrapid plasma reagin antibody, [id number] 16:26:00* Test Item Value Reference Range Interpretation Comme nts rapid plasma reagin antibody, serum (test code = 5291-0) 1:1 See_Comment H [Automated messa ge] The system which generated this result transmitted reference range: NonRea<1:1. The reference range was not used to interpret this result as normal/abnormal. [facility] ClevelandHIV-1RNA, serum, by PCR, ciboxnrslybt0731-16-58 16:26:00 * Test Item Value Reference Range Interpretation Comme nts HIV-1RNA, serum, by PCR, paula ntitative (test code = 41608) 30 /mL [facility] ClevelandHepatitis B virus DNA, by Polymerase Chain Reaction 2019-04-26 16:26:00* Test Item Value Reference Range Interpretation Comme nts Hepatitis B virus DNA, by Polymerase Chain Reaction (test code = 39005) HBV DNA not detected [facility]levelandalanine aminotransferase (SGPT), aahrs3695-54-49 16:26:00 * Test Item Value Reference Range Interpretation Comme nts alanine aminotransferase (SG PT), serum (test code = 1742-6) 47 1/L 0-44 H [facility] Clevelandaspartate aminotransferase (SGOT), qmwbn6474-68-18 16:26:00* Test Item Value Reference Range Interpretation Comme nts aspartate aminotransferase ( SGOT), serum (test code = 1920-8) 34 1/L 0-40 [facility] Clevelandalkaline phosphatase, gffcr6583-66-75 16:26:00* Test Item Value Reference Range Interpretation Comme nts alkaline phosphatase, serum (test code = 1783-0) 101 1/L 39-117 [facility] Clevelandbilirubin, serum, [id number] 16:26:00* Test Item Value Reference Range Interpretation Comme nts bilirubin, serum, total ([facility] t code = 1975-2) 0.3 mg/dL 0.0-1.2 [facility] Healthalbumin/globulin ratio, [id number] 16:26:00* Test Item Value Reference Range Interpretation Comme nts albumin/globulin ratio, serum (test code = 1759-0) 1.6 (unknown unit) 1.2-2.2 [facility] Healthglobulin, axwlq7680-04-29 16:26:00* Test Item Value Reference Range Interpretation Comme nts globulin, serum (test code = 2336-6) 2.8 (unknown unit) 1.5-4.5 [facility] Healthalbumin, pntgp5803-99-56 16:26:00* Test Item Value Reference Range Interpretation Comme nts albumin, serum (test code = 1751-7) 4.4 g/dL 3.5-5.5 [facility] Healthprotein, total, ouqjz9910-09-34 16:26:00* Test Item Value Reference Range Interpretation Comme nts protein, total, serum (test code = 2885-2) 7.2 g/dL 6.0-8.5 [facility] Clevelandcalcium, qplpb3354-23-40 16:26:00* Test Item Value Reference Range Interpretation Comme nts calcium, serum (test code = 2000-8) 8.9 mg/dL 8.7-10.2 [facility] Clevelandcarbon dioxide, venous swawb8283-97-44 16:26:00* Test Item Value Reference Range Interpretation Comme nts carbon dioxide, venous blood (test code = 2027-1) 19 mmol/L 20-29 L [facility] Healthchloride, lijhb3798-07-71 16:26:00* Test Item Value Reference Range Interpretation Comme nts chloride, serum (test code = 2075-0) 103 mmol/L 96-106 [facility] Healthpotassium, [id number] 16:26:00* Test Item Value Reference Range Interpretation Comme nts potassium, serum (test code = 2823-3) 4.5 mmol/L 3.5-5.2 [facility]levelandsodium, [id number] 16:26:00* Test Item Value Reference Range Interpretation Comme nts sodium, serum (test code = 2951-2) 139 mmol/L 134-144 [facility] Clevelandurea nitrogen/creatinine ratio, ancqx7478-45-36 16:26:00 * Test Item Value Reference Range Interpretation Comme nts urea nitrogen/creatinine ratio, serum (test code = 3097-3) 12 (unknown unit) 9-20 [facility] HealtheGFR if Taiqnvgv0768-43-53 16:26:00* Test Item Value Reference Range Interpretation Comme nts eGFR if (test code = 55056-5) 123 mL/min/{1.73 m2} >59 [facility] ClevelandEstimated Glomerular Filtration Rate (calc)2019-04-26 16:26:00* Test Item Value Reference Range Interpretation Comme nts Estimated Glomerular Filtration Rate (calc) (test code = 61834-1) 106 mL/min/{1.73 m2} >59 [facility] Clevelandcreatinine, [id number] 16:26:00* Test Item Value Reference Range Interpretation Comme nts creatinine, serum (test code = 2160-0) 0.90 mg/dL 0.76-1.27 [facility] Clevelandurea nitrogen, iljji8445-26-95 16:26:00* Test Item Value Reference Range Interpretation Comme nts urea nitrogen, blood (test c ode = 3094-0) 11 mg/dL 6-24 [facility] Clevelandblood glucose, tdjrmp2404-01-85 16:26:00* Test Item Value Reference Range Interpretation Comme nts blood glucose, random (test code = 2339-0) 325 mg/dL 65-99 H [facility] Clevelandimmature granulocytes, percentage of total cells, blood 2019-04-26 16:26:00* Test Item Value Reference Range Interpretation Comme nts immature granulocytes, perce ntage of total cells, blood (test code = 26053-3) 1 % [facility] Clevelandbasophil count, qhtjoezt4272-74-62 16:26:00* Test Item Value Reference Range Interpretation Comme nts basophil count, absolute (te st code = 89081-0) 0.0 x10E3/uL 0.0-0.2 [facility] ClevelandEosinophil Absolute Qqxed2126-30-32 16:26:00* Test Item Value Reference Range Interpretation Comme nts Eosinophil Absolute Count (t est code = 89162-0) 0.1 X10E3/UL 0.0-0.4 [facility] Clevelandmonocyte count, blood, bhwfpeaqo4640-16-89 16:26:00* Test Item Value Reference Range Interpretation Comme nts monocyte count, blood, autom ated (test code = 742-7) 0.5 X10E3/UL 0.1-0.9 [facility] Clevelandlymphocyte count, blood, drafwembu7309-56-83 16:26:00* Test Item Value Reference Range Interpretation Comme nts lymphocyte count, blood, automated (test code = 731-0) 1.3 X10E3/UL 0.7-3.1 [facility] ClevelandAbsolute Dsmonuukbde4160-78-21 16:26:00* Test Item Value Reference Range Interpretation Comme nts Absolute Neutrophils (test c ode = 77436-5) 6.9 X10E3/UL 1.4-7.0 [facility]bas[facility] as percent of blood qcvvejbyss4868-72-30 16:26:00* Test Item Value Reference Range Interpretation Comme nts basophils as percent of bloo d leukocytes (test code = 707-0) 0 % [facility]levelandeosinophils as percent of blood quzgmnlmjn7361-23-91 16:26:00* Test Item Value Reference Range Interpretation Comme nts eosinophils as percent of bl ood leukocytes (test code = 713-8) 1 % [facility] Clevelandmonocytes as percent of blood ulkapsxmvt4417-80-22 16:26:00* Test Item Value Reference Range Interpretation Comme nts monocytes as percent of bloo d leukocytes (test code = 5905-5) 5 % [facility] Clevelandlymphocytes as percent of blood kxaozqyeuq8328-05-22 16:26:00* Test Item Value Reference Range Interpretation Comme nts lymphocytes as percent of bl ood leukocytes (test code = 736-9) 15 % [facility] Clevelandneutrophils as percent of blood lcwbepbtws3234-35-37 16:26:00* Test Item Value Reference Range Interpretation Comme nts neutrophils as percent of bl ood leukocytes (test code = 770-8) 78 % [facility] Clevelandplatelet yzzui5856-51-01 16:26:00* Test Item Value Reference Range Interpretation Comme [facility] platelet count (test code = 777-3) 267 X10E3/UL 150-450 [facility] Clevelandred blood cell distribution edamu0484-10-87 16:26:00* Test Item Value Reference Range Interpretation Comme [facility] red blood cell distribution width (test code = 788-0) 13.2 % 12.3-15.4 [facility] corpuscular hemoglobin concentration, [id number] 16:26:00* Test Item Value Reference Range Interpretation Comme [facility] mean corpuscular hemoglobin concentration, RBC (test code = 786-4) 34.7 G/DL 31.5-35.7 [facility] corpuscular hemoglobin, [id number] 16:26:00* Test Item Value Reference Range Interpretation Comme [facility] mean corpuscular hemoglobin, RBC (test code = 785-6) 30.6 pg 26.6-33.0 [facility] corpuscular volume, [id number] 16:26:00* Test Item Value Reference Range Interpretation Comme [facility] mean corpuscular volume, RBC (test code = 787-2) 88 fL 79-97 [facility] Clevelandhematocrit, ghguw2814-68-63 16:26:00* Test Item Value Reference Range Interpretation Comme [facility] hematocrit, blood (test code = 4544-3) 48.7 % 37.5-51. 0 [facility] Clevelandhemoglobin, cbnhv1980-81-79 16:26:00* Test Item Value Reference Range Interpretation Comme [facility] hemoglobin, blood (test code = 718-7) 16.9 g/dL 13.0-17.7 [facility] Clevelanderythrocyte (RBC) ehalu1297-06-88 16:26:00* Test Item Value Reference Range Interpretation Comme [facility] erythrocyte (RBC) count (janett t code = 789-8) 5.52 X10E6/UL 4.14-5.80 [facility] Clevelandleukocyte count, xtcvg7597-00-14 16:26:00* Test Item Value Reference Range [facility]ation [facility], blood (test code = 6690-2) 8.9 X10E3/UL 3.4-10.8 [facility] ClevelandCD4/CD8 rdaez9595-67-49 16:26:00* Test Item Value Reference Range Interpretation [facility] CD4/CD8 ratio (test code = 86677) 1.45 (unknown unit) 0.92-3.72 [facility] ClevelandT-suppressor cells (CD8) as percent of blood lymphocytes 2019-04-26 16:26:00* Test Item Value Reference Range Interpretation [facility] T-suppressor cells (CD8) as percent of blood lymphocytes (test code = 3517) 30.4 % 12.0-35.5 [facility] Clevelandabsolute [id number] 16:26:00* Test Item Value Reference Range Interpretation [facility] absolute CD8 (test code = 46659) 395 (unknown unit) 109-897 [facility] NHRMCV-1 RNA (log 10)2018-10-25 10:41:00* Test Item Value Reference Range Interpretation [facility] HIV-1 RNA (log 10) (test code = 58905) <1.30 DETECTED Log copies/mL NOT DETECTED A [facility] HealthHIV-1RNA, serum, by PCR, olxqzuwmodct8145-95-05 10:41:00 * Test Item Value Reference Range Interpretation Comme nts HIV-1RNA, serum, by PCR, quantitative (test code = 69072) <20 DETECTED copies/mL NOT DETECTED A [facility] ClevelandTreponema pallidum Ab, oitkg1885-07-86 10:40:00* Test Item Value Reference Range Interpretation Comme nts Treponema pallidum Ab, serum (test code = 66440-0) REACTIVE NON-REACTIVE A [facility] ClevelandT-helper cells (CD4) uuvma8906-84-80 10:40:00* Test Item Value Reference Range Interpretation Comme nts T-helper cells (CD4) count ( test code = 11342-3) 663 CELLS/UL 490-1740 N [facility] ClevelandT-helper cells (CD4) as percent of blood lymphocytes 2018-10-25 10:40:00* Test Item Value Reference Range Interpretation Comme nts T-helper cells (CD4) as perc ent of blood lymphocytes (test code = 8123-2) 44 % 30-61 N [facility] ClevelandLDL cholesterol, xklim4761-13-13 10:40:00* Test Item Value Reference Range Interpretation Comme [facility] LDL cholesterol, serum (test code = 2089-1) LDL cholesterol not calculated. Triglyceride le... mg/dL (calc) [facility] Clevelandtriglyceride, serum, zvgmxla9619-86-43 10:40:00* Test Item Value Reference Range Interpretation Comme nts triglyceride, serum, fasting (test code = 2571-8) 407 mg/dL <150 H [facility] ClevelandHDL cholesterol, yfbad3463-01-21 10:40:00* Test Item Value Reference Range Interpretation Comme nts HDL cholesterol, serum (test code = 2085-9) 24 mg/dL >40 L [facility] Clevelandcholesterol, wbggp1594-37-71 10:40:00* Test Item Value Reference Range Interpretation Comme nts cholesterol, serum (test cod e = 2093-3) 178 mg/dL <200 N [facility] Clevelandrapid plasma reagin antibody, [id number] 10:40:00* Test Item Value Reference Range Interpretation Comme nts rapid plasma reagin antibody , serum (test code = 5291-0) REACTIVE NON-REACTIVE A [facility] Clevelandbasophils as percent of blood xpbztptfqe1939-53-70 10:40:00* Test Item Value Reference Range Interpretation Comme nts basophils as percent of bloo d leukocytes (test code = 707-0) 0.4 % N [facility]levelandeosinophils as percent of blood jbfyfyasme4843-47-93 10:40:00* Test Item Value Reference Range Interpretation Comme nts eosinophils as percent of bl ood leukocytes (test code = 714-6) 1.2 % N [facility] Healthmonocytes as percent of blood zdybsdempq6308-31-60 10:40:00* Test Item Value Reference Range Interpretation Comme nts monocytes as percent of bloo d leukocytes (test code = 5905-5) 4.2 % N [facility] Clevelandlymphocytes as percent of blood oecjrujnoy9660-33-40 10:40:00* Test Item Value Reference Range Interpretation Comme nts lymphocytes as percent of bl ood leukocytes (test code = 736-9) 18.9 % N [facility] Clevelandneutrophils as percent of blood gzbvdmpome4161-99-05 10:40:00* Test Item Value Reference Range Interpretation Comme nts neutrophils as percent of bl ood leukocytes (test code = 770-8) 75.3 % N [facility] Clevelandbasophil count, gcebxunm0946-49-03 10:40:00* Test Item Value Reference Range Interpretation Comme nts basophil count, absolute (te st code = 63619-1) 33 cells/uL 0-200 N [facility] ClevelandAbsolute Eosinophil zpkni5072-54-88 10:40:00* Test Item Value Reference Range Interpretation Comme nts Absolute Eosinophil count (t est code = 92492-6) 100 cells/mcL 15-500 N [facility] ClevelandAbsolute Monocyte jkcwv0036-87-15 10:40:00* Test Item Value Reference Range Interpretation Comme nts Absolute Monocyte count (janett t code = 00837-9) 349 cells/mcL 200-950 N [facility] ClevelandAbsolute Neutrophil cellz0058-71-73 10:40:00* Test Item Value Reference Range Interpretation Comme nts Absolute Neutrophil count (test code = 72244-4) 6250 cells/mcL 9935-6780 N [facility] platelet sjlphv6853-04-61 10:40:00* Test Item Value Reference Range Interpretation Comme [facility] mean platelet volume (test c ode = 776-5) 11.2 fL 7.5-12.5 N [facility] Clevelandplatelet uhlov3170-78-69 10:40:00* Test Item Value Reference Range Interpretation Comme [facility] platelet count (test code = 777-3) 230 THOUSAND/UL 140-400 N [facility] Clevelandred blood cell distribution nresw2371-73-72 10:40:00* Test Item Value Reference Range Interpretation Comme [facility] red blood cell distribution width (test code = 788-0) 13.1 % 11.0-15.0 N [facility] corpuscular hemoglobin concentration, VPY4550-36-13 10:40:00* Test Item Value Reference Range Interpretation Comme [facility] mean corpuscular hemoglobin concentration, RBC (test code = 786-4) 35.4 G/DL 32.0-36.0 N [facility] corpuscular hemoglobin, [id number] 10:40:00* Test Item Value Reference Range Interpretation Comme [facility] mean corpuscular hemoglobin, RBC (test code = 785-6) 31.2 pg 27.0-33.0 N [facility] corpuscular volume, [id number] 10:40:00* Test Item Value Reference Range Interpretation Comme [facility] mean corpuscular volume, RBC (test code = 787-2) 88.1 fL 80.0-100.0 N [facility] Clevelandhematocrit, dfwff1819-43-77 10:40:00* Test Item Value Reference Range Interpretation Comme [facility] hematocrit, blood (test code = 4544-3) 45.7 % 38.5-50. 0 N [facility] Clevelandhemoglobin, idokv9545-62-81 10:40:00* Test Item Value Reference Range Interpretation Comme [facility] hemoglobin, blood (test code = 718-7) 16.2 g/dL 13.2-17.1 N [facility] Clevelanderythrocyte (RBC) zlole1239-79-72 10:40:00* Test Item Value Reference Range Interpretation Comme [facility] erythrocyte (RBC) count (janett t code = 789-8) 5.19 MILLION/UL 4.20-5.80 N [facility] Clevelandleukocyte count, qdmug9262-04-01 10:40:00* Test Item Value Reference Range Interpretation Comme nts leukocyte count, blood (test code = 6690-2) 8.3 THOUSAND/UL 3.8-10.8 N [facility] Clevelandlymphocytes, vusptyng9577-98-53 10:40:00* Test Item Value Reference Range Interpretation Comme nts lymphocytes, absolute (test code = 17357-8) 1569 CELLS/UL 850-3900 N [facility] ClevelandCD4/CD8 rnuon3410-07-31 10:40:00* Test Item Value Reference Range Interpretation Comme nts CD4/CD8 ratio (test code = 77965) 1.52 (unknown unit) 0.86-5.00 N [facility] Clevelandabsolute [id number] 10:40:00* Test Item Value Reference Range Interpretation Comme nts absolute CD8 (test code = 72444) 436 (unknown unit) 180-1170 N [facility] ClevelandT-suppressor cells (CD8) as percent of blood lymphocytes 2018-10-25 10:40:00* Test Item Value Reference Range Interpretation Comme nts T-suppressor cells (CD8) as percent of blood lymphocytes (test code = 3517) 29 % 12-42 N [facility] Clevelandalanine aminotransferase (SGPT), jlqfx0500-72-40 10:40:00 * Test Item Value Reference Range Interpretation Comme nts alanine aminotransferase (SG PT), serum (test code = 1742-6) 79 1/L 9-46 H [facility] Clevelandaspartate aminotransferase (SGOT), vsdur2180-79-56 10:40:00* Test Item Value Reference Range Interpretation Comme nts aspartate aminotransferase ( SGOT), serum (test code = 1920-8) 51 1/L 10-40 H [facility] Clevelandalkaline phosphatase, cmcqp2299-23-55 10:40:00* Test Item Value Reference Range Interpretation Comme nts alkaline phosphatase, serum (test code = 1783-0) 87 1/L 40-115 N [facility] Clevelandbilirubin, serum, gbmau9719-11-17 10:40:00* Test Item Value Reference Range Interpretation Comme nts bilirubin, serum, total (janett t code = 1975-2) 0.7 mg/dL 0.2-1.2 N [facility] Healthalbumin/globulin ratio, cxpdv4530-12-06 10:40:00* Test Item Value Reference Range Interpretation Comme nts albumin/globulin ratio, seru m (test code = 1759-0) 1.7 (calc) 1.0-2.5 N [facility] Healthglobulins, serum, khmri8344-96-37 10:40:00* Test Item Value Reference Range Interpretation Comme nts globulins, serum, total (janett t code = 2336-6) 2.6 G/DL (CALC) 1.9-3.7 N [facility] Healthalbumin, zufml8291-02-80 10:40:00* Test Item Value Reference Range Interpretation Comme nts albumin, serum (test code = 1751-7) 4.4 g/dL 3.6-5.1 N [facility] Clevelandprotein, total, qtsfg1299-70-71 10:40:00* Test Item Value Reference Range Interpretation Comme nts protein, total, serum (test code = 2885-2) 7.0 g/dL 6.1-8.1 N [facility] Clevelandcalcium, fhoct5083-09-80 10:40:00* Test Item Value Reference Range Interpretation Comme nts calcium, serum (test code = 2000-8) 9.1 mg/dL 8.6-10.3 N [facility] Clevelandcarbon dioxide, venous rcslk6250-77-26 10:40:00* Test Item Value Reference Range Interpretation Comme nts carbon dioxide, venous blood (test code = 2027-1) 24 mmol/L 20-32 N [facility] Clevelandchloride, myzvq7987-30-18 10:40:00* Test Item Value Reference Range Interpretation Comme nts chloride, serum (test code = 2075-0) 105 mmol/L 98-110 N [facility] Clevelandpotassium, wsstz0382-16-63 10:40:00* Test Item Value Reference Range Interpretation Comme nts potassium, serum (test code = 2823-3) 3.9 mmol/L 3.5-5.3 N [facility] Clevelandsodium, yjkgj7267-05-25 10:40:00* Test Item Value Reference Range Interpretation Comme nts sodium, serum (test code = 2951-2) 139 mmol/L 135-146 N [facility] Clevelandurea nitrogen/creatinine ratio, weome6809-46-89 10:40:00 * Test Item Value Reference Range Interpretation Comme nts urea nitrogen/creatinine ratio, serum (test code = 3097-3) NOT APPLICABLE (calc) 6-22 [facility] HealtheGFR if Ntzzggwr2240-17-97 10:40:00* Test Item Value Reference Range Interpretation Comme nts eGFR if (test code = 75559-1) 114 mL/min/{1.73 m2} See_Comment N [Automated message] The system which generated this result transmitted reference range: > OR = 60. The reference range was not used to interpret this result as normal/abnormal. [facility] ClevelandEstimated Glomerular Filtration Rate (calc)2018-10-25 10:40:00* Test Item Value Reference Range Interpretation Comme [facility] Estimated Glomerular Filtration Rate (calc) (test code = 07644-9) 98 mL/min/{1.73 m2} See_Comment N [Automated message] The system which generated this result transmitted reference range: > OR = 60. The reference range was not used to interpret this result as normal/abnormal. [facility] Clevelandcreatinine, werrs8784-76-15 10:40:00* Test Item Value Reference Range Interpretation Comme [facility] creatinine, serum (test code = 2160-0) 0.96 mg/dL 0.60-1.35 N [facility] Clevelandurea nitrogen, pxmxg1728-26-94 10:40:00* Test Item Value Reference Range Interpretation Comme [facility] urea nitrogen, blood (test c ode = 3094-0) 10 mg/dL 7-25 N [facility] Clevelandblood glucose, gjwjpj9546-27-10 10:40:00* Test Item Value Reference Range Interpretation Comme [facility] blood glucose, random (test code = 2339-0) 217 mg/dL 65-99 H [facility] Clevelandcholesterol, non-HDL, ureeh7339-86-89 10:40:00* Test Item Value Reference Range Interpretation Comme nts cholesterol, non-HDL, total (test code = 15932) 154 MG/DL (CALC) <130 H [facility] Clevelandcholesterol/HDL ratio, serum, dbpmeyd5394-10-85 10:40:00 * Test Item Value Reference Range Interpretation Comme nts cholesterol/HDL ratio, serum , percent (test code = 2404) 7.4 (calc) <5.0 H [facility] ClevelandQuantiferon Gold TB blood test for tuberculosis screening 2018-05-22 09:03:00* Test Item Value Reference Range Interpretation Comme nts Quantiferon Gold TB blood te st for tuberculosis screening (test code = 17548-5) Negative Negative [facility] ClevelandHIV-1RNA, serum, by PCR, sibusxuracet2514-31-74 08:46:00 * Test Item Value Reference Range Interpretation Comme nts HIV-1RNA, serum, by PCR, quantitative (test code = 97244) <20 copies/mL [facility] ClevelandTreponema pallidum antibodies, by particle agglutination 2018-05-21 08:44:00* Test Item Value Reference Range Interpretation Comme nts Treponema pallidum antibodie s, by particle agglutination (test code = 91587-1) Positive Negative A [facility] Clevelandhemoglobin A1C, blood, as % of total lohmgwlbhf3549-58-32 08:44:00* Test Item Value Reference Range Interpretation Comme nts hemoglobin A1C, blood, as % of total hemoglobin (test code = 4548-4) 6.4 % 4.8-5.6 H [facility] ClevelandLDL cholesterol, ugdyq5285-94-54 08:44:00* Test Item Value Reference Range Interpretation Comme nts LDL cholesterol, serum (test code = 2089-1) TRIGHI mg/dL 0-99 [facility] ClevelandHDL cholesterol, vnvud0342-31-31 08:44:00* Test Item Value Reference Range Interpretation Comme nts HDL cholesterol, serum (test code = 2085-9) 22 mg/dL >39 [facility], [facility], [id number] 08:44:00* Test Item Value Reference Range Interpretation Comme nts triglyceride, serum, fasting (test code = 2571-8) 401 mg/dL 0-149 H [facility] Clevelandcholesterol, [id number] 08:44:00* Test Item Value Reference Range Interpretation Comme nts cholesterol, serum (test cod e = 2093-3) 159 mg/dL 100-199 [facility] ClevelandT-helper cells (CD4) as percent of blood lymphocytes 2018-05-21 08:44:00* Test Item Value Reference Range Interpretation Comme nts T-helper cells (CD4) as perc ent of blood lymphocytes (test code = 8123-2) 47.1 % 30.8-58.5 [facility] ClevelandT-helper cells (CD4) [id number] 08:44:00* Test Item Value Reference Range Interpretation Comme nts T-helper cells (CD4) count ( test code = 97380-6) 1130 /UL 359-1519 [facility] Clevelandrapid plasma reagin antibody, [id number] 08:44:00* Test Item Value Reference Range Interpretation Comme nts rapid plasma reagin antibody, serum (test code = 5291-0) 1:2 See_Comment H [Automated messa ge] The system which generated this result transmitted reference range: NonRea<1:1. The reference range was not used to interpret this result as normal/abnormal. [facility] ClevelandHepatitis B virus DNA, by Polymerase Chain Reaction 2018-05-21 08:44:00* Test Item Value Reference Range Interpretation Comme [facility] Hepatitis B virus DNA, by Polymerase Chain Reaction (test code = 18922) HBV DNA not detected [facility] low density gzmuptetsjmm4621-89-53 08:44:00* Test Item Value Reference Range Interpretation Comme nts very low density lipoprotein s (test code = 2091-7) VLDLCH mg/dL 5-40 [facility]andalanine aminotransferase (SGPT), ycume5640-55-96 08:44:00 * Test Item Value Reference Range Interpretation Comme nts alanine aminotransferase (SG PT), serum (test code = 1742-6) 121 1/L 0-44 H [facility] Clevelandaspartate aminotransferase (SGOT), zkdyx6555-61-01 08:44:00* Test Item Value Reference Range Interpretation Comme nts aspartate aminotransferase ( SGOT), serum (test code = 1920-8) 41 1/L 0-40 H [facility] Clevelandalkaline phosphatase, [id number] 08:44:00* Test Item Value Reference Range Interpretation Comme nts alkaline phosphatase, serum (test code = 1783-0) 85 1/L 39-117 [facility], [facility], [id number] 08:44:00* Test Item Value Reference Range Interpretation Comme nts bilirubin, serum, total (janett t code = 1975-2) 0.3 mg/dL 0.0-1.2 [facility] Healthalbumin/globulin ratio, [id number] 08:44:00* Test Item Value Reference Range Interpretation Comme nts albumin/globulin ratio, serum (test code = 1759-0) 1.6 (unknown unit) 1.2-2.2 [facility] Healthglobulin, [id number] 08:44:00* Test Item Value Reference Range Interpretation Comme nts globulin, serum (test code = 2336-6) 2.8 (unknown unit) 1.5-4.5 [facility] Healthalbumin, sbgxi1102-57-03 08:44:00* Test Item Value Reference Range Interpretation Comme nts albumin, serum (test code = 1751-7) 4.5 g/dL 3.5-5.5 [facility] Healthprotein, total, [id number] 08:44:00* Test Item Value Reference Range Interpretation Comme nts protein, total, serum (test code = 2885-2) 7.3 g/dL 6.0-8.5 [facility] Healthcalcium, dxxtu6533-92-87 08:44:00* Test Item Value Reference Range Interpretation Comme nts calcium, serum (test code = 2000-8) 9.3 mg/dL 8.7-10.2 [facility] dioxide, venous fwcuf9678-15-64 08:44:00* Test Item Value Reference Range Interpretation Comme nts carbon dioxide, venous blood (test code = 2027-1) 21 mmol/L 20-29 [facility] Healthchloride, [id number] 08:44:00* Test Item Value Reference Range Interpretation Comme nts chloride, serum (test code = 2075-0) 102 mmol/L 96-106 [facility] Healthpotassium, [id number] 08:44:00* Test Item Value Reference Range Interpretation Comme nts potassium, serum (test code = 2823-3) 3.9 mmol/L 3.5-5.2 [facility] Healthsodium, [id number] 08:44:00* Test Item Value Reference Range Interpretation Comme nts sodium, serum (test code = 2951-2) 141 mmol/L 134-144 [facility]urea nitrogen/creatinine ratio, [id number] 08:44:00 * Test Item Value Reference Range Interpretation Comme nts urea nitrogen/creatinine ratio, serum (test code = 3097-3) 11 (unknown unit) 9-20 [facility] HealtheGFR if Tenmbpie8014-32-02 08:44:00* Test Item Value Reference Range Interpretation Comme nts eGFR if (test code = 01310-6) 101 mL/min/{1.73 m2} >59 [facility] ClevelandEstimated Glomerular Filtration Rate (calc)2018-05-21 08:44:00* Test Item Value Reference Range Interpretation Comme nts Estimated Glomerular Filtration Rate (calc) (test code = 49328-7) 87 mL/min/{1.73 m2} >59 [facility] Clevelandcreatinine, [id number] 08:44:00* Test Item Value Reference Range Interpretation Comme nts creatinine, serum (test code = 2160-0) 1.07 mg/dL 0.76-1.27 [facility] Clevelandurea nitrogen, dmypr6000-45-49 08:44:00* Test Item Value Reference Range Interpretation Comme nts urea nitrogen, blood (test c ode = 3094-0) 12 mg/dL 6-20 [facility] Clevelandblood glucose, [id number] 08:44:00* Test Item Value Reference Range Interpretation Comme nts blood glucose, random (test code = 2339-0) 315 mg/dL 65-99 H [facility] Clevelandimmature granulocytes, percentage of total cells, blood 2018-05-21 08:44:00* Test Item Value Reference Range Interpretation Comme nts immature granulocytes, perce ntage of total cells, blood (test code = 58140-6) 0 % [facility] Clevelandbasophil count, rafaqlrb6803-60-20 08:44:00* Test Item Value Reference Range Interpretation Comme nts basophil count, absolute (te st code = 12002-6) 0.0 x10E3/uL 0.0-0.2 [facility] ClevelandEosinophil Absolute Vqgvt8452-26-55 08:44:00* Test Item Value Reference Range Interpretation Comme nts Eosinophil Absolute Count (t est code = 35658-4) 0.2 X10E3/UL 0.0-0.4 [facility] Healthmonocyte count, blood, thubgwngu3614-85-60 08:44:00* Test Item Value Reference Range Interpretation Comme nts monocyte count, blood, autom ated (test code = 742-7) 0.3 X10E3/UL 0.1-0.9 [facility] Healthlymphocyte count, blood, mqnsxbyuy0259-63-65 08:44:00* Test Item Value Reference Range Interpretation Comme nts lymphocyte count, blood, automated (test code = 731-0) 2.4 X10E3/UL 0.7-3.1 [facility] HealthAbsolute Mxcxlndyssp8784-48-81 08:44:00* Test Item Value Reference Range Interpretation Comme nts Absolute Neutrophils (test c ode = 49965-1) 7.3 X10E3/UL 1.4-7.0 H [facility] Healthbasophils as percent of blood muwxxtcrhh8521-40-68 08:44:00* Test Item Value Reference Range Interpretation Comme nts basophils as percent of bloo d leukocytes (test code = 707-0) 0 % [facility]levelandeosinophils as percent of blood dxxmrudszo2372-64-08 08:44:00* Test Item Value Reference Range Interpretation Comme nts eosinophils as percent of bl ood leukocytes (test code = 713-8) 2 % [facility] Healthmonocytes as percent of blood dfjrwkihap4680-17-32 08:44:00* Test Item Value Reference Range Interpretation Comme nts monocytes as percent of bloo d leukocytes (test code = 5905-5) 3 % [facility] Healthlymphocytes as percent of blood fhbvnflgpn5853-87-94 08:44:00* Test Item Value Reference Range Interpretation Comme nts lymphocytes as percent of bl ood leukocytes (test code = 736-9) 24 % [facility] Healthneutrophils as percent of blood oofdwntnrd9908-78-96 08:44:00* Test Item Value Reference Range Interpretation Comme nts neutrophils as percent of bl ood leukocytes (test code = 770-8) 71 % [facility] Healthplatelet fqhsq7858-90-86 08:44:00* Test Item Value Reference Range Interpretation Comme [facility] platelet count (test code = 777-3) 217 X10E3/UL 150-379 [facility] Clevelandred blood cell distribution eptmw1615-58-07 08:44:00* Test Item Value Reference Range Interpretation Comme [facility] red blood cell distribution width (test code = 788-0) 14.2 % 12.3-15.4 [facility] corpuscular hemoglobin concentration, [id number] 08:44:00* Test Item Value Reference Range Interpretation Comme [facility] mean corpuscular hemoglobin concentration, RBC (test code = 786-4) 34.6 G/DL 31.5-35.7 [facility] corpuscular hemoglobin, [id number] 08:44:00* Test Item Value Reference Range Interpretation Comme [facility] mean corpuscular hemoglobin, RBC (test code = 785-6) 32.6 pg 26.6-33.0 [facility] corpuscular volume, [id number] 08:44:00* Test Item Value Reference Range Interpretation Comme [facility] mean corpuscular volume, RBC (test code = 787-2) 94 fL 79-97 [facility] Clevelandhematocrit, lcttd1627-04-17 08:44:00* Test Item Value Reference Range Interpretation Comme [facility] hematocrit, blood (test code = 4544-3) 47.4 % 37.5-51. 0 [facility] Clevelandhemoglobin, [id number] 08:44:00* Test Item Value Reference Range Interpretation Comme [facility] hemoglobin, blood (test code = 718-7) 16.4 g/dL 13.0-17.7 [facility] Clevelanderythrocyte (RBC) yucog3291-27-55 08:44:00* Test Item Value Reference Range Interpretation Comme [facility] erythrocyte (RBC) count (janett t code = 789-8) 5.03 X10E6/UL 4.14-5.80 [facility] Clevelandleukocyte count, [id number] 08:44:00* Test Item Value Reference Range Interpretation Comme [facility] leukocyte count, blood (test code = 6690-2) 10.2 X10E3/UL 3.4-10.8 [facility] ClevelandCD4/CD8 ewtpd3304-16-97 08:44:00* Test Item Value Reference Range Interpretation Comme nts CD4/CD8 ratio (test code = 38005) 1.64 (unknown unit) 0.92-3.72 [facility] ClevelandT-suppressor cells (CD8) as percent of blood lymphocytes 2018-05-21 08:44:00* Test Item Value Reference Range Interpretation Comme nts T-suppressor cells (CD8) as percent of blood lymphocytes (test code = 3517) 28.7 % 12.0-35.5 [facility] Clevelandabsolute [id number] 08:44:00* Test Item Value Reference Range Interpretation Comme nts absolute CD8 (test code = 39448) 689 (unknown unit) 109-897 [facility] ClevelandTreponema pallidum antibodies, by particle agglutination 2017-11-24 11:58:00* Test Item Value Reference Range Interpretation Comme [facility] Treponema pallidum antibodie s, by particle agglutination (test code = 73152-4) Positive Negative A [facility] Clevelandhemoglobin A1C, blood, as % of total qrhhdfjfdl4716-13-53 11:58:00* Test Item Value Reference Range Interpretation Comme [facility] hemoglobin A1C, blood, as % of total hemoglobin (test code = 4548-4) 6.2 % 4.8-5.6 H [facility] ClevelandLDL cholesterol, [id number] 11:58:00* Test Item Value Reference Range Interpretation Comme [facility] LDL cholesterol, serum (test code = 2089-1) TRIGHI mg/dL 0-99 [facility] ClevelandHDL cholesterol, yfbdz1428-97-05 11:58:00* Test Item Value Reference Range Interpretation Comme nts HDL cholesterol, serum (test code = 2085-9) 22 mg/dL >39 L [facility] Clevelandtriglyceride, serum, dblrchq3053-33-19 11:58:00* Test Item Value Reference Range Interpretation Comme nts triglyceride, serum, fasting (test code = 2571-8) 471 mg/dL 0-149 H [facility] Clevelandcholesterol, esssd4074-49-44 11:58:00* Test Item Value Reference Range Interpretation Comme nts cholesterol, serum (test cod e = 2093-3) 159 mg/dL 100-199 [facility] ClevelandT-helper cells (CD4) as percent of blood lymphocytes 2017-11-24 11:58:00* Test Item Value Reference Range Interpretation Comme nts T-helper cells (CD4) as perc ent of blood lymphocytes (test code = 8123-2) 44.9 % 30.8-58.5 [facility] ClevelandT-helper cells (CD4) dpugi6999-83-53 11:58:00* Test Item Value Reference Range Interpretation Comme nts T-helper cells (CD4) count ( test code = 01698-4) 853 /UL 359-1519 [facility] Clevelandhepatitis C antibody, dfinp4616-10-44 11:58:00* Test Item Value Reference Range Interpretation Comme nts hepatitis C antibody, serum (test code = 5199-5) 0.1 (unknown unit) 0.0-0.9 [facility] Clevelandrapid plasma reagin antibody, [id number] 11:58:00* Test Item Value Reference Range Interpretation Comme nts rapid plasma reagin antibody, serum (test code = 5291-0) 1:2 See_Comment H [Automated messa ge] The system which generated this result transmitted reference range: NonRea<1:1. The reference range was not used to interpret this result as normal/abnormal. [facility] ClevelandHIV-1RNA, serum, by PCR, mduyvyxxzerk3344-01-66 11:58:00 * Test Item Value Reference Range Interpretation Comme nts HIV-1RNA, serum, by PCR, quantitative (test code = 58756) <20 copies/mL [facility] low density myjtwmlobspy2129-59-50 11:58:00* Test Item Value Reference Range Interpretation Comme nts very low density lipoprotein s (test code = 2091-7) VLDLCH mg/dL 5-40 [facility]andalanine aminotransferase (SGPT), xddrk8415-42-72 11:58:00 * Test Item Value Reference Range Interpretation Comme nts alanine aminotransferase (SG PT), serum (test code = 1742-6) 92 1/L 0-44 H [facility] Clevelandaspartate aminotransferase (SGOT), [id number] 11:58:00* Test Item Value Reference Range Interpretation Comme nts aspartate aminotransferase ( SGOT), serum (test code = 1920-8) 49 1/L 0-40 H [facility] Clevelandalkaline phosphatase, [id number] 11:58:00* Test Item Value Reference Range Interpretation Comme nts alkaline phosphatase, serum (test code = 1783-0) 79 1/L 39-117 [facility] Healthbilirubin, serum, cjyrk3710-58-04 11:58:00* Test Item Value Reference Range Interpretation Comme nts bilirubin, serum, total (janett t code = 1975-2) 0.4 mg/dL 0.0-1.2 [facility] Healthalbumin/globulin ratio, [id number] 11:58:00* Test Item Value Reference Range Interpretation Comme nts albumin/globulin ratio, serum (test code = 1759-0) 1.5 (unknown unit) 1.2-2.2 [facility] Healthglobulin, [id number] 11:58:00* Test Item Value Reference Range Interpretation Comme nts globulin, serum (test code = 2336-6) 3.1 (unknown unit) 1.5-4.5 [facility] Healthalbumin, [id number] 11:58:00* Test Item Value Reference Range Interpretation Comme nts albumin, serum (test code = 1751-7) 4.6 g/dL 3.5-5.5 [facility] Healthprotein, total, [id number] 11:58:00* Test Item Value Reference Range Interpretation Comme nts protein, total, serum (test code = 2885-2) 7.7 g/dL 6.0-8.5 [facility] Healthcalcium, zscuh1939-90-22 11:58:00* Test Item Value Reference Range Interpretation Comme nts calcium, serum (test code = 2000-8) 9.6 mg/dL 8.7-10.2 [facility] Clevelandcarbon dioxide, venous [id number] 11:58:00* Test Item Value Reference Range Interpretation Comme nts carbon dioxide, venous blood (test code = 2027-1) 27 mmol/L 18-29 [facility] Healthchloride, [id number] 11:58:00* Test Item Value Reference Range Interpretation Comme nts chloride, serum (test code = 2075-0) 100 mmol/L 96-106 [facility] Healthpotassium, [id number] 11:58:00* Test Item Value Reference Range Interpretation Comme nts potassium, serum (test code = 2823-3) 4.6 mmol/L 3.5-5.2 [facility]levelandsodium, [id number] 11:58:00* Test Item Value Reference Range Interpretation Comme nts sodium, serum (test code = 2951-2) 143 mmol/L 134-144 [facility] Clevelandurea nitrogen/creatinine ratio, yozqr5568-06-08 11:58:00 * Test Item Value Reference Range Interpretation Comme nts urea nitrogen/creatinine ratio, serum (test code = 3097-3) 12 (unknown unit) 9-20 [facility] HealtheGFR if Yvbcizsw2634-56-49 11:58:00* Test Item Value Reference Range Interpretation Comme nts eGFR if (test code = 87756-3) 99 mL/min/{1.73 m2} >59 [facility] ClevelandEstimated Glomerular Filtration Rate (calc)2017-11-24 11:58:00* Test Item Value Reference Range Interpretation Comme nts Estimated Glomerular Filtration Rate (calc) (test code = 95886-3) 86 mL/min/{1.73 m2} >59 [facility] Clevelandcreatinine, [id number] 11:58:00* Test Item Value Reference Range Interpretation Comme nts creatinine, serum (test code = 2160-0) 1.08 mg/dL 0.76-1.27 [facility] Clevelandurea nitrogen, efllp1025-47-23 11:58:00* Test Item Value Reference Range Interpretation Comme nts urea nitrogen, blood (test c ode = 3094-0) 13 mg/dL 6-20 [facility] Clevelandblood glucose, aritxu5035-38-83 11:58:00* Test Item Value Reference Range Interpretation Comme nts blood glucose, random (test code = 2339-0) 178 mg/dL 65-99 H [facility] Clevelandimmature granulocytes, percentage of total cells, blood 2017-11-24 11:58:00* Test Item Value Reference Range Interpretation Comme nts immature granulocytes, perce ntage of total cells, blood (test code = 27195-0) 1 % [facility] Healthbasophil count, sycesrng5729-89-18 11:58:00* Test Item Value Reference Range Interpretation Comme nts basophil count, absolute (te st code = 60096-5) 0.0 x10E3/uL 0.0-0.2 [facility] HealthEosinophil Absolute [id number] 11:58:00* Test Item Value Reference Range Interpretation Comme nts Eosinophil Absolute Count (t est code = 59135-8) 0.1 X10E3/UL 0.0-0.4 [facility] Healthmonocyte count, blood, bmixzqycl0913-41-37 11:58:00* Test Item Value Reference Range Interpretation Comme nts monocyte count, blood, autom ated (test code = 742-7) 0.3 X10E3/UL 0.1-0.9 [facility] Clevelandlymphocyte count, blood, isvcvivvo4179-78-50 11:58:00* Test Item Value Reference Range Interpretation Comme nts lymphocyte count, blood, automated (test code = 731-0) 1.9 X10E3/UL 0.7-3.1 [facility] HealthAbsolute Qcbvwdkoapa9341-51-90 11:58:00* Test Item Value Reference Range Interpretation Comme nts Absolute Neutrophils (test c ode = 22328-0) 4.7 X10E3/UL 1.4-7.0 [facility] Healthbasophils as percent of blood iohojcmuad6593-68-74 11:58:00* Test Item Value Reference Range Interpretation Comme nts basophils as percent of bloo d leukocytes (test code = 707-0) 0 % [facility] Healtheosinophils as percent of blood griehcffwg2309-17-99 11:58:00* Test Item Value Reference Range Interpretation Comme nts eosinophils as percent of bl ood leukocytes (test code = 713-8) 2 % [facility] Healthmonocytes as percent of blood tqcdxrfyit2169-90-38 11:58:00* Test Item Value Reference Range Interpretation Comme nts monocytes as percent of bloo d leukocytes (test code = 5905-5) 4 % [facility] Healthlymphocytes as percent of blood gxzwujhszj2212-40-73 11:58:00* Test Item Value Reference Range Interpretation Comme nts lymphocytes as percent of bl ood leukocytes (test code = 736-9) 26 % [facility] Clevelandneutrophils as percent of blood ayegpwumjs1730-07-10 11:58:00* Test Item Value Reference Range Interpretation Comme nts neutrophils as percent of bl ood leukocytes (test code = 770-8) 67 % [facility] Clevelandplatelet [id number] 11:58:00* Test Item Value Reference Range Interpretation Comme [facility] platelet count (test code = 777-3) 247 X10E3/UL 150-379 [facility] Clevelandred blood cell distribution jghdu5756-97-45 11:58:00* Test Item Value Reference Range Interpretation Comme [facility] red blood cell distribution width (test code = 788-0) 13.7 % 12.3-15.4 [facility] corpuscular hemoglobin concentration, [id number] 11:58:00* Test Item Value Reference Range Interpretation Comme [facility] mean corpuscular hemoglobin concentration, RBC (test code = 786-4) 34.8 G/DL 31.5-35.7 [facility] corpuscular hemoglobin, [id number] 11:58:00* Test Item Value Reference Range Interpretation Comme [facility] mean corpuscular hemoglobin, RBC (test code = 785-6) 31.4 pg 26.6-33.0 [facility] corpuscular volume, [id number] 11:58:00* Test Item Value Reference Range Interpretation Comme [facility] mean corpuscular volume, RBC (test code = 787-2) 90 fL 79-97 [facility] Clevelandhematocrit, azqsk9964-57-81 11:58:00* Test Item Value Reference Range Interpretation Comme [facility] hematocrit, blood (test code = 4544-3) 47.7 % 37.5-51. 0 [facility] Clevelandhemoglobin, [id number] 11:58:00* Test Item Value Reference Range Interpretation Comme [facility] hemoglobin, blood (test code = 718-7) 16.6 g/dL 13.0-17.7 [facility] Clevelanderythrocyte (RBC) soeco4345-54-54 11:58:00* Test Item Value Reference Range Interpretation Comme [facility] erythrocyte (RBC) count (janett t code = 789-8) 5.29 X10E6/UL 4.14-5.80 [facility] Clevelandleukocyte count, pcchz1625-87-15 11:58:00* Test Item Value Reference Range Interpretation Comme nts leukocyte count, blood (test code = 6690-2) 7.1 X10E3/UL 3.4-10.8 [facility] ClevelandCD4/CD8 hnrmw5541-32-79 11:58:00* Test Item Value Reference Range Interpretation Comme nts CD4/CD8 ratio (test code = 63757) 1.39 (unknown unit) 0.92-3.72 [facility] ClevelandT-suppressor cells (CD8) as percent of blood lymphocytes 2017-11-24 11:58:00* Test Item Value Reference Range Interpretation Comme nts T-suppressor cells (CD8) as percent of blood lymphocytes (test code = 3517) 32.4 % 12.0-35.5 [facility] Clevelandabsolute [id number] 11:58:00* Test Item Value Reference Range Interpretation Comme nts absolute CD8 (test code = 70777) 616 (unknown unit) 109-897 [facility] ClevelandTreponema pallidum antibodies, by particle agglutination 2017-06-16 09:37:00* Test Item Value Reference Range Interpretation Comme nts Treponema pallidum antibodie s, by particle agglutination (test code = 77878-5) Positive Negative A [facility] Clevelandhemoglobin A1C, blood, as % of total naffcpxioy0265-53-69 09:37:00* Test Item Value Reference Range Interpretation Comme nts hemoglobin A1C, blood, as % of total hemoglobin (test code = 4548-4) 6.8 % 4.8-5.6 H [facility] ClevelandLDL cholesterol, jxtdm9821-55-09 09:37:00* Test Item Value Reference Range Interpretation Comme [facility] LDL cholesterol, serum (test code = 2089-1) 68 mg/dL 0-99 [facility] ClevelandHDL cholesterol, fdxoi2947-72-15 09:37:00* Test Item Value Reference Range Interpretation Comme [facility] HDL cholesterol, serum (test code = 2085-9) 25 mg/dL >39 L [facility] Clevelandtriglyceride, serum, yyhaavp1596-29-82 09:37:00* Test Item Value Reference Range Interpretation Comme nts triglyceride, serum, fasting (test code = 2571-8) 390 mg/dL 0-149 H [facility] Clevelandcholesterol, scmvf9554-74-78 09:37:00* Test Item Value Reference Range Interpretation Comme nts cholesterol, serum (test cod e = 2093-3) 171 mg/dL 100-199 [facility] ClevelandT-helper cells (CD4) as percent of blood lymphocytes 2017-06-16 09:37:00* Test Item Value Reference Range Interpretation Comme nts T-helper cells (CD4) as perc ent of blood lymphocytes (test code = 8123-2) 41.9 % 30.8-58.5 [facility] ClevelandT-helper cells (CD4) nzavk8099-81-70 09:37:00* Test Item Value Reference Range Interpretation Comme nts T-helper cells (CD4) count ( test code = 54565-8) 880 /UL 359-1519 [facility] Clevelandrapid plasma reagin antibody, [id number] 09:37:00* Test Item Value Reference Range Interpretation Comme nts rapid plasma reagin antibody, serum (test code = 5291-0) 1:4 See_Comment H [Automated Pixel[employer]a ge] The system which generated this result transmitted reference range: NonRea<1:1. The reference range was not used to interpret this result as normal/abnormal. [facility], serum, by PCR, [id number] 09:37:00 * Test Item Value Reference Range Interpretation Comme [facility] HIV-1RNA, serum, by PCR, paula ntitative (test code = 62228) 40 /mL [facility] Clevelandvery low density gsxadortewdq0546-28-52 09:37:00* Test Item Value Reference Range Interpretation Comme [facility] very low density lipoprotein s (test code = 2091-7) 78 mg/dL 5-40 H [facility]levelandalanine aminotransferase (SGPT), [id number] 09:37:00 * Test Item Value Reference Range Interpretation Comme nts alanine aminotransferase (SG PT), serum (test code = 1742-6) 77 1/L 0-44 H [facility] Clevelandaspartate aminotransferase (SGOT), [id number] 09:37:00* Test Item Value Reference Range Interpretation Comme nts aspartate aminotransferase ( SGOT), serum (test code = 1920-8) 46 1/L 0-40 H [facility] Clevelandalkaline phosphatase, [id number] 09:37:00* Test Item Value Reference Range Interpretation Comme nts alkaline phosphatase, serum (test code = 1783-0) 89 1/L 39-117 [facility] Healthbilirubin, serum, [id number] 09:37:00* Test Item Value Reference Range Interpretation Comme nts bilirubin, serum, total (janett t code = 1975-2) 0.4 mg/dL 0.0-1.2 [facility] Healthalbumin/globulin ratio, [id number] 09:37:00* Test Item Value Reference Range Interpretation Comme nts albumin/globulin ratio, serum (test code = 1759-0) 1.7 (unknown unit) 1.2-2.2 [facility] Healthglobulin, [id number] 09:37:00* Test Item Value Reference Range Interpretation Comme nts globulin, serum (test code = 2336-6) 2.6 (unknown unit) 1.5-4.5 [facility] Healthalbumin, [id number] 09:37:00* Test Item Value Reference Range Interpretation Comme nts albumin, serum (test code = 1751-7) 4.4 g/dL 3.5-5.5 [facility] Healthprotein, total, [id number] 09:37:00* Test Item Value Reference Range Interpretation Comme nts protein, total, serum (test code = 2885-2) 7.0 g/dL 6.0-8.5 [facility] Healthcalcium, [id number] 09:37:00* Test Item Value Reference Range Interpretation Comme nts calcium, serum (test code = 2000-8) 9.3 mg/dL 8.7-10.2 [facility]carbon dioxide, venous vbfds3073-22-30 09:37:00* Test Item Value Reference Range Interpretation Comme nts carbon dioxide, venous blood (test code = 2027-1) 25 mmol/L 18-29 [facility] Healthchloride, [id number] 09:37:00* Test Item Value Reference Range Interpretation Comme nts chloride, serum (test code = 2075-0) 102 mmol/L 96-106 [facility] Healthpotassium, [id number] 09:37:00* Test Item Value Reference Range Interpretation Comme nts potassium, serum (test code = 2823-3) 4.6 mmol/L 3.5-5.2 [facility] Healthsodium, [id number] 09:37:00* Test Item Value Reference Range Interpretation Comme nts sodium, serum (test code = 2951-2) 142 mmol/L 134-144 [facility] Clevelandurea nitrogen/creatinine ratio, [id number] 09:37:00 * Test Item Value Reference Range Interpretation Comme nts urea nitrogen/creatinine ratio, serum (test code = 3097-3) 9 (unknown unit) 9-20 [facility] HealtheGFR if Qsiogzgr8264-47-64 09:37:00* Test Item Value Reference Range Interpretation Comme nts eGFR if (test code = 18366-8) 127 mL/min/{1.73 m2} >59 [facility] ClevelandEstimated Glomerular Filtration Rate (calc)2017-06-16 09:37:00* Test Item Value Reference Range Interpretation Comme nts Estimated Glomerular Filtration Rate (calc) (test code = 29550-1) 110 mL/min/{1.73 m2} >59 [facility] Clevelandcreatinine, [id number] 09:37:00* Test Item Value Reference Range Interpretation Comme nts creatinine, serum (test code = 2160-0) 0.86 mg/dL 0.76-1.27 [facility] Clevelandurea nitrogen, [id number] 09:37:00* Test Item Value Reference Range Interpretation Comme nts urea nitrogen, blood (test c ode = 3094-0) 8 mg/dL 6-20 [facility] Clevelandblood glucose, [id number] 09:37:00* Test Item Value Reference Range Interpretation Comme nts blood glucose, random (test code = 2339-0) 236 mg/dL 65-99 H [facility] Clevelandimmature granulocytes, percentage of total cells, blood 2017-06-16 09:37:00* Test Item Value Reference Range Interpretation Comme nts immature granulocytes, perce ntage of total cells, blood (test code = 73700-2) 0 % [facility] Healthbasophil count, vyhofeta3922-65-69 09:37:00* Test Item Value Reference Range Interpretation Comme nts basophil count, absolute (te st code = 59742-6) 0.0 x10E3/uL 0.0-0.2 [facility] HealthEosinophil Absolute Kqawf8090-06-50 09:37:00* Test Item Value Reference Range Interpretation Comme nts Eosinophil Absolute Count (t est code = 38613-2) 0.2 X10E3/UL 0.0-0.4 [facility] Healthmonocyte count, blood, ibzqhkazs0769-58-64 09:37:00* Test Item Value Reference Range Interpretation Comme nts monocyte count, blood, autom ated (test code = 742-7) 0.3 X10E3/UL 0.1-0.9 [facility] Clevelandlymphocyte count, blood, nxkbbwuus1546-79-16 09:37:00* Test Item Value Reference Range Interpretation Comme nts lymphocyte count, blood, automated (test code = 731-0) 2.1 X10E3/UL 0.7-3.1 [facility] HealthAbsolute Tqvetynuaro0661-58-13 09:37:00* Test Item Value Reference Range Interpretation Comme nts Absolute Neutrophils (test c ode = 18525-8) 5.2 X10E3/UL 1.4-7.0 [facility] Healthbasophils as percent of blood uuftwnzhhb1390-34-95 09:37:00* Test Item Value Reference Range Interpretation Comme nts basophils as percent of bloo d leukocytes (test code = 707-0) 1 % [facility] Healtheosinophils as percent of blood fcpawbwwyw6292-46-70 09:37:00* Test Item Value Reference Range Interpretation Comme nts eosinophils as percent of bl ood leukocytes (test code = 713-8) 2 % [facility] Healthmonocytes as percent of blood vpiawsklqw0587-63-35 09:37:00* Test Item Value Reference Range Interpretation Comme nts monocytes as percent of bloo d leukocytes (test code = 5905-5) 4 % [facility] Healthlymphocytes as percent of blood yzeglhnexy2206-24-54 09:37:00* Test Item Value Reference Range Interpretation Comme nts lymphocytes as percent of bl ood leukocytes (test code = 736-9) 26 % [facility] Clevelandneutrophils as percent of blood vackibvzdz9660-66-91 09:37:00* Test Item Value Reference Range Interpretation Comme nts neutrophils as percent of bl ood leukocytes (test code = 770-8) 67 % [facility] Clevelandplatelet eudqb4869-25-38 09:37:00* Test Item Value Reference Range Interpretation Comme [facility] platelet count (test code = 777-3) 239 X10E3/UL 150-379 [facility] Clevelandred blood cell distribution fczao9256-49-39 09:37:00* Test Item Value Reference Range Interpretation Comme [facility] red blood cell distribution width (test code = 788-0) 13.0 % 12.3-15.4 [facility] corpuscular hemoglobin concentration, [id number] 09:37:00* Test Item Value Reference Range Interpretation Comme [facility] mean corpuscular hemoglobin concentration, RBC (test code = 786-4) 35.0 G/DL 31.5-35.7 [facility] corpuscular hemoglobin, [id number] 09:37:00* Test Item Value Reference Range Interpretation Comme [facility] mean corpuscular hemoglobin, RBC (test code = 785-6) 31.1 pg 26.6-33.0 [facility] corpuscular volume, [id number] 09:37:00* Test Item Value Reference Range Interpretation Comme [facility] mean corpuscular volume, RBC (test code = 787-2) 89 fL 79-97 [facility] Clevelandhematocrit, [id number] 09:37:00* Test Item Value Reference Range Interpretation Comme [facility] hematocrit, blood (test code = 4544-3) 46.9 % 37.5-51. 0 [facility] Clevelandhemoglobin, [id number] 09:37:00* Test Item Value Reference Range Interpretation Comme [facility] hemoglobin, blood (test code = 718-7) 16.4 g/dL 12.6-17.7 [facility] Clevelanderythrocyte (RBC) pyxtp2548-94-94 09:37:00* Test Item Value Reference Range Interpretation Comme nts erythrocyte (RBC) count (janett t code = 789-8) 5.27 X10E6/UL 4.14-5.80 [facility] Clevelandleukocyte count, nuort2950-63-22 09:37:00* Test Item Value Reference Range Interpretation Comme nts leukocyte count, blood (test code = 6690-2) 7.8 X10E3/UL 3.4-10.8 [facility] ClevelandCD4/CD8 qepro7634-47-42 09:37:00* Test Item Value Reference Range Interpretation Comme nts CD4/CD8 ratio (test code = 51019) 1.20 (unknown unit) 0.92-3.72 [facility] ClevelandT-suppressor cells (CD8) as percent of blood lymphocytes 2017-06-16 09:37:00* Test Item Value Reference Range Interpretation Comme nts T-suppressor cells (CD8) as percent of blood lymphocytes (test code = 3517) 34.8 % 12.0-35.5 [facility] Clevelandabsolute [id number] 09:37:00* Test Item Value Reference Range Interpretation Comme nts absolute CD8 (test code = 50469) 731 (unknown unit) 109-897 [facility] ClevelandNeisseria gonorrhoeae DNA yrjhm7156-03-87 09:48:00* Test Item Value Reference Range Interpretation Comme nts Neisseria gonorrhoeae DNA pr obe (test code = 62290-7) Negative Negative [facility] Clevelandchlamydia DNA wmxwq7350-31-09 09:48:00* Test Item Value Reference Range Interpretation Comme nts chlamydia DNA probe (test co de = 12106-9) Negative Negative [facility] ClevelandTreponema pallidum antibodies, by particle agglutination 2017-01-18 09:31:00* Test Item Value Reference Range Interpretation Comme nts Treponema pallidum antibodie s, by particle agglutination (test code = 79215-5) Positive Negative A [facility] ClevelandLDL cholesterol, kwcgh6186-84-17 09:31:00* Test Item Value Reference Range Interpretation Comme nts LDL cholesterol, serum (test code = 2089-1) TRIGHI mg/dL 0-99 [facility] ClevelandHDL cholesterol, fpvtg2785-85-56 09:31:00* Test Item Value Reference Range Interpretation Comme nts HDL cholesterol, serum (test code = 2085-9) 17 mg/dL >39 L [facility] Clevelandtriglyceride, serum, [id number] 09:31:00* Test Item Value Reference Range Interpretation Comme nts triglyceride, serum, fasting (test code = 2571-8) 559 mg/dL 0-149 HH [facility] Clevelandcholesterol, [id number] 09:31:00* Test Item Value Reference Range Interpretation Comme nts cholesterol, serum (test cod e = 2093-3) 174 mg/dL 100-199 [facility] ClevelandT-helper cells (CD4) as percent of blood lymphocytes 2017-01-18 09:31:00* Test Item Value Reference Range Interpretation Comme nts T-helper cells (CD4) as perc ent of blood lymphocytes (test code = 8123-2) 45.9 % 30.8-58.5 [facility] ClevelandT-helper cells (CD4) bvljz7205-05-49 09:31:00* Test Item Value Reference Range Interpretation Comme nts T-helper cells (CD4) count ( test code = 89931-7) 734 /UL 359-1519 [facility] Clevelandrapid plasma reagin antibody, dpsem7604-27-65 09:31:00* Test Item Value Reference Range Interpretation Comme nts rapid plasma reagin antibody, serum (test code = 5291-0) 1:4 See_Comment H [Automated [employer]a ge] The system which generated this result transmitted reference range: NonRea<1:1. The reference range was not used to interpret this result as normal/abnormal. [facility]HIV-1RNA, serum, by PCR, osrrrmecukop7015-99-79 09:31:00 * Test Item Value Reference Range Interpretation Comme nts HIV-1RNA, serum, by PCR, quantitative (test code = 96577) <20 copies/mL [facility] ClevelandHepatitis B virus DNA, by Polymerase Chain Reaction 2017-01-18 09:31:00* Test Item Value Reference Range Interpretation Comme nts Hepatitis B virus DNA, by Po lymerase Chain Reaction (test code = 91647) <10 [facility] low density xmnpvjrjtwim5210-14-18 09:31:00* Test Item Value Reference Range Interpretation Comme nts very low density lipoprotein s (test code = 2091-7) VLDLCH mg/dL 5-40 [facility] Clevelandalanine aminotransferase (SGPT), ksklk8540-65-96 09:31:00 * Test Item Value Reference Range Interpretation Comme nts alanine aminotransferase (SG PT), serum (test code = 1742-6) 90 1/L 0-44 H [facility] Clevelandaspartate aminotransferase (SGOT), wdhtu1216-55-62 09:31:00* Test Item Value Reference Range Interpretation Comme nts aspartate aminotransferase ( SGOT), serum (test code = 1920-8) 66 1/L 0-40 H [facility] Clevelandalkaline phosphatase, rrzoe4882-57-53 09:31:00* Test Item Value Reference Range Interpretation Comme nts alkaline phosphatase, serum (test code = 1783-0) 104 1/L 39-117 [facility] Clevelandbilirubin, serum, ewhdx5179-62-42 09:31:00* Test Item Value Reference Range Interpretation Comme nts bilirubin, serum, total ([facility] t code = 1975-2) 0.4 mg/dL 0.0-1.2 [facility] Healthalbumin/globulin ratio, oljwz4063-24-22 09:31:00* Test Item Value Reference Range Interpretation Comme nts albumin/globulin ratio, serum (test code = 1759-0) 1.3 (unknown unit) 1.2-2.2 [facility] Healthglobulin, pcnlj2838-88-09 09:31:00* Test Item Value Reference Range Interpretation Comme nts globulin, serum (test code = 2336-6) 3.0 (unknown unit) 1.5-4.5 [facility] Healthalbumin, zwxwc3773-72-02 09:31:00* Test Item Value Reference Range Interpretation Comme nts albumin, serum (test code = 1751-7) 4.0 g/dL 3.5-5.5 [facility] Healthprotein, total, [id number] 09:31:00* Test Item Value Reference Range Interpretation Comme nts protein, total, serum (test code = 2885-2) 7.0 g/dL 6.0-8.5 [facility] Healthcalcium, jzfko2155-59-66 09:31:00* Test Item Value Reference Range Interpretation Comme nts calcium, serum (test code = 2000-8) 9.0 mg/dL 8.7-10.2 [facility] Clevelandcarbon dioxide, venous obwfb2908-75-34 09:31:00* Test Item Value Reference Range Interpretation Comme nts carbon dioxide, venous blood (test code = 2027-1) 22 mmol/L 18-29 [facility] Healthchloride, [id number] 09:31:00* Test Item Value Reference Range Interpretation Comme nts chloride, serum (test code = 2075-0) 100 mmol/L 96-106 [facility] Healthpotassium, evlvo0324-25-66 09:31:00* Test Item Value Reference Range Interpretation Comme nts potassium, serum (test code = 2823-3) 4.3 mmol/L 3.5-5.2 [facility] Clevelandsodium, [id number] 09:31:00* Test Item Value Reference Range Interpretation Comme nts sodium, serum (test code = 2951-2) 139 mmol/L 134-144 [facility] Clevelandurea nitrogen/creatinine ratio, lwgkl1457-88-36 09:31:00 * Test Item Value Reference Range Interpretation Comme nts urea nitrogen/creatinine ratio, serum (test code = 3097-3) 8 (unknown unit) 8-19 [facility] HealtheGFR if Wwynpapz3845-22-22 09:31:00* Test Item Value Reference Range Interpretation Comme nts eGFR if (test code = 29513-3) 107 mL/min/{1.73 m2} >59 [facility] ClevelandEstimated Glomerular Filtration Rate (calc)2017-01-18 09:31:00* Test Item Value Reference Range Interpretation Comme nts Estimated Glomerular Filtration Rate (calc) (test code = 25850-3) 93 mL/min/{1.73 m2} >59 [facility] Clevelandcreatinine, eavge0560-23-16 09:31:00* Test Item Value Reference Range Interpretation Comme nts creatinine, serum (test code = 2160-0) 1.02 mg/dL 0.76-1.27 [facility] Clevelandurea nitrogen, srhql1366-79-05 09:31:00* Test Item Value Reference Range Interpretation Comme nts urea nitrogen, blood (test c ode = 3094-0) 8 mg/dL 6-20 [facility] Clevelandblood glucose, iahjop1965-78-77 09:31:00* Test Item Value Reference Range Interpretation Comme nts blood glucose, random (test code = 2339-0) 313 mg/dL 65-99 H [facility] Clevelandimmature granulocytes, percentage of total cells, blood 2017-01-18 09:31:00* Test Item Value Reference Range Interpretation Comme nts immature granulocytes, perce ntage of total cells, blood (test code = 83755-1) 0 % [facility] Clevelandbasophil count, qvpqgbgm8296-61-75 09:31:00* Test Item Value Reference Range Interpretation Comme nts basophil count, absolute (te st code = 82246-9) 0.0 x10E3/uL 0.0-0.2 [facility] ClevelandEosinophil Absolute Thakq2199-90-22 09:31:00* Test Item Value Reference Range Interpretation Comme nts Eosinophil Absolute Count (t est code = 42118-9) 0.3 X10E3/UL 0.0-0.4 [facility] Clevelandmonocyte count, blood, hpfcbyftr8523-13-30 09:31:00* Test Item Value Reference Range Interpretation Comme nts monocyte count, blood, autom ated (test code = 742-7) 0.4 X10E3/UL 0.1-0.9 [facility] Clevelandlymphocyte count, blood, ssztyevnh2320-02-28 09:31:00* Test Item Value Reference Range Interpretation Comme nts lymphocyte count, blood, automated (test code = 731-0) 1.6 X10E3/UL 0.7-3.1 [facility] ClevelandAbsolute Omtbwuxccqi3616-18-63 09:31:00* Test Item Value Reference Range Interpretation Comme nts Absolute Neutrophils (test c ode = 27897-9) 5.9 X10E3/UL 1.4-7.0 [facility] Clevelandbasophils as percent of blood txjhwzrmyw5007-05-47 09:31:00* Test Item Value Reference Range Interpretation Comme nts basophils as percent of bloo d leukocytes (test code = 707-0) 0 % [facility]levelandeosinophils as percent of blood wgxcdwbcgc2995-33-51 09:31:00* Test Item Value Reference Range Interpretation Comme nts eosinophils as percent of bl ood leukocytes (test code = 713-8) 3 % [facility] Healthmonocytes as percent of blood atwkodmaux4687-13-25 09:31:00* Test Item Value Reference Range Interpretation Comme nts monocytes as percent of bloo d leukocytes (test code = 5905-5) 5 % [facility] Clevelandlymphocytes as percent of blood iulisgjysf8562-04-72 09:31:00* Test Item Value Reference Range Interpretation Comme nts lymphocytes as percent of bl ood leukocytes (test code = 736-9) 19 % [facility] Clevelandneutrophils as percent of blood docdhuacve6260-95-47 09:31:00* Test Item Value Reference Range Interpretation Comme nts neutrophils as percent of bl ood leukocytes (test code = 770-8) 73 % [facility] Clevelandplatelet fejfn2985-35-06 09:31:00* Test Item Value Reference Range Interpretation Comme [facility] platelet count (test code = 777-3) 192 X10E3/UL 150-379 [facility] Clevelandred blood cell distribution bkycu8655-15-17 09:31:00* Test Item Value Reference Range Interpretation Comme [facility] red blood cell distribution width (test code = 788-0) 13.7 % 12.3-15.4 [facility] corpuscular hemoglobin concentration, [id number] 09:31:00* Test Item Value Reference Range Interpretation Comme [facility] mean corpuscular hemoglobin concentration, RBC (test code = 786-4) 34.7 G/DL 31.5-35.7 [facility] corpuscular hemoglobin, [id number] 09:31:00* Test Item Value Reference Range Interpretation Comme [facility] mean corpuscular hemoglobin, RBC (test code = 785-6) 32.0 pg 26.6-33.0 [facility] corpuscular volume, [id number] 09:31:00* Test Item Value Reference Range Interpretation Comme [facility] mean corpuscular volume, RBC (test code = 787-2) 92 fL 79-97 [facility] Clevelandhematocrit, lvqcb5854-13-55 09:31:00* Test Item Value Reference Range Interpretation Comme nts hematocrit, blood (test code = 4544-3) 48.1 % 37.5-51. 0 [facility] Clevelandhemoglobin, vivbn9151-96-08 09:31:00* Test Item Value Reference Range Interpretation Comme nts hemoglobin, blood (test code = 718-7) 16.7 g/dL 12.6-17.7 [facility] Clevelanderythrocyte (RBC) xfaxu6091-45-65 09:31:00* Test Item Value Reference Range Interpretation Comme nts erythrocyte (RBC) count (janett t code = 789-8) 5.22 X10E6/UL 4.14-5.80 [facility] Clevelandleukocyte count, lyjhp6401-96-26 09:31:00* Test Item Value Reference Range Interpretation Comme nts leukocyte count, blood (test code = 6690-2) 8.3 X10E3/UL 3.4-10.8 [facility] ClevelandCD4/CD8 jlmhv4218-38-25 09:31:00* Test Item Value Reference Range Interpretation Comme nts CD4/CD8 ratio (test code = 80976) 1.43 (unknown unit) 0.92-3.72 [facility] ClevelandT-suppressor cells (CD8) as percent of blood lymphocytes 2017-01-18 09:31:00* Test Item Value Reference Range Interpretation Comme nts T-suppressor cells (CD8) as percent of blood lymphocytes (test code = 3517) 32.0 % 12.0-35.5 [facility] Clevelandabsolute [id number] 09:31:00* Test Item Value Reference Range Interpretation Comme nts absolute CD8 (test code = 84405) 512 (unknown unit) 109-897 [facility] ClevelandTreponema pallidum antibodies, by particle agglutination 2016-07-21 10:14:00* Test Item Value Reference Range Interpretation Comme [facility] Treponema pallidum antibodie s, by particle agglutination (test code = 05676-5) Positive Negative A [facility] ClevelandLDL cholesterol, uijgy0360-62-60 10:14:00* Test Item Value Reference Range Interpretation Comme nts LDL cholesterol, serum (test code = 2089-1) TRIGHI mg/dL 0-99 [facility] ClevelandHDL cholesterol, jgnws3763-48-89 10:14:00* Test Item Value Reference Range Interpretation Comme nts HDL cholesterol, serum (test code = 2085-9) 19 mg/dL >39 L [facility] Clevelandtriglyceride, serum, huzyicc0007-27-48 10:14:00* Test Item Value Reference Range Interpretation Comme nts triglyceride, serum, fasting (test code = 2571-8) 452 mg/dL 0-149 H [facility] Clevelandcholesterol, cbuli6894-03-85 10:14:00* Test Item Value Reference Range Interpretation Comme nts cholesterol, serum (test cod e = 2093-3) 144 mg/dL 100-199 [facility] ClevelandT-helper cells (CD4) as percent of blood lymphocytes 2016-07-21 10:14:00* Test Item Value Reference Range Interpretation Comme nts T-helper cells (CD4) as perc ent of blood lymphocytes (test code = 8123-2) 43.2 % 30.8-58.5 [facility] ClevelandT-helper cells (CD4) admyu0651-06-31 10:14:00* Test Item Value Reference Range Interpretation Comme nts T-helper cells (CD4) count ( test code = 01215-7) 691 /UL 359-1519 [facility] ClevelandQuantiferon Gold TB blood test for tuberculosis screening 2016-07-21 10:14:00* Test Item Value Reference Range Interpretation Comme nts Quantiferon Gold TB blood te st for tuberculosis screening (test code = 62277-9) Negative Negative [facility] Clevelandrapid plasma reagin antibody, lmcza9288-89-61 10:14:00* Test Item Value Reference Range Interpretation Comme nts rapid plasma reagin antibody, serum (test code = 5291-0) 1:2 See_Comment H [Automated messa ge] The system which generated this result transmitted reference range: NonRea<1:1. The reference range was not used to interpret this result as normal/abnormal. [facility] ClevelandHIV-1RNA, serum, by PCR, pslgaavfmfkv4993-76-61 10:14:00 * Test Item Value Reference Range Interpretation Comme nts HIV-1RNA, serum, by PCR, quantitative (test code = 75324) <20 copies/mL [facility] Clevelandver low density ratpuuivblzd2486-93-04 10:14:00* Test Item Value Reference Range Interpretation Comme nts very low density lipoprotein s (test code = 2091-7) VLDLCH mg/dL 5-40 [facility] Clevelandalanine aminotransferase (SGPT), qcxfz9272-82-88 10:14:00 * Test Item Value Reference Range Interpretation Comme nts alanine aminotransferase (SG PT), serum (test code = 1742-6) 128 1/L 0-44 H [facility] Clevelandaspartate aminotransferase (SGOT), crfhf0349-62-57 10:14:00* Test Item Value Reference Range Interpretation Comme nts aspartate aminotransferase ( SGOT), serum (test code = 1920-8) 65 1/L 0-40 [facility], [id number] 10:14:00* Test Item Value Reference Range Interpretation Comme nts alkaline phosphatase, serum (test code = 1783-0) 115 1/L 39-117 [facility]irubin, serum, [id number] 10:14:00* Test Item Value Reference Range Interpretation Comme nts bilirubin, serum, total (janett t code = 1975-2) 0.6 mg/dL 0.0-1.2 [facility] Healthalbumin/globulin ratio, [id number] 10:14:00* Test Item Value Reference Range Interpretation Comme nts albumin/globulin ratio, serum (test code = 1759-0) 1.5 (unknown unit) 1.1-2.5 [facility] Healthglobulin, [id number] 10:14:00* Test Item Value Reference Range Interpretation Comme nts globulin, serum (test code = 2336-6) 2.8 (unknown unit) 1.5-4.5 [facility] Healthalbumin, [id number] 10:14:00* Test Item Value Reference Range Interpretation Comme nts albumin, serum (test code = 1751-7) 4.2 g/dL 3.5-5.5 [facility] Healthprotein, total, [id number] 10:14:00* Test Item Value Reference Range Interpretation Comme nts protein, total, serum (test code = 2885-2) 7.0 g/dL 6.0-8.5 [facility] Healthcalcium, [id number] 10:14:00* Test Item Value Reference Range Interpretation Comme nts calcium, serum (test code = 2000-8) 8.8 mg/dL 8.7-10.2 [facility] dioxide, venous [id number] 10:14:00* Test Item Value Reference Range Interpretation Comme nts carbon dioxide, venous blood (test code = 2027-1) 18 mmol/L 18-29 [facility] Healthchloride, [id number] 10:14:00* Test Item Value Reference Range Interpretation Comme nts chloride, serum (test code = 2075-0) 101 mmol/L 97-108 [facility] Healthpotassium, [id number] 10:14:00* Test Item Value Reference Range Interpretation Comme nts potassium, serum (test code = 2823-3) 4.0 mmol/L 3.5-5.2 [facility]odium, [id number] 10:14:00* Test Item Value Reference Range Interpretation Comme nts sodium, serum (test code = 2951-2) 139 mmol/L 134-144 [facility]urea nitrogen/creatinine ratio, [id number] 10:14:00 * Test Item Value Reference Range Interpretation Comme nts urea nitrogen/creatinine ratio, serum (test code = 3097-3) 10 (unknown unit) 8-19 [facility] HealtheGFR if [id number] 10:14:00* Test Item Value Reference Range Interpretation Comme nts eGFR if (test code = 13783-3) 121 mL/min/{1.73 m2} >59 [facility] ClevelandEstimated Glomerular Filtration Rate (calc)2016-07-21 10:14:00* Test Item Value Reference Range Interpretation Comme nts Estimated Glomerular Filtration Rate (calc) (test code = 88657-7) 105 mL/min/{1.73 m2} >59 [facility] Clevelandcreatinine, [id number] 10:14:00* Test Item Value Reference Range Interpretation Comme nts creatinine, serum (test code = 2160-0) 0.93 mg/dL 0.76-1.27 [facility]urea nitrogen, [id number] 10:14:00* Test Item Value Reference Range Interpretation Comme nts urea nitrogen, blood (test c ode = 3094-0) 9 mg/dL 6-20 [facility]blood glucose, [id number] 10:14:00* Test Item Value Reference Range Interpretation Comme nts blood glucose, random (test code = 2339-0) 362 mg/dL 65-99 H [facility] Clevelandimmature granulocytes, percentage of total cells, blood 2016-07-21 10:14:00* Test Item Value Reference Range Interpretation Comme nts immature granulocytes, perce ntage of total cells, blood (test code = 66842-5) 0 % [facility]basophil count, [id number] 10:14:00* Test Item Value Reference Range Interpretation Comme nts basophil count, absolute (te st code = 32410-8) 0.0 x10E3/uL 0.0-0.2 [facility] ClevelandEosinophil Absolute [id number] 10:14:00* Test Item Value Reference Range Interpretation Comme nts Eosinophil Absolute Count (t est code = 65987-5) 0.2 X10E3/UL 0.0-0.4 [facility]ocyte count, blood, [id number] 10:14:00* Test Item Value Reference Range Interpretation Comme nts monocyte count, blood, autom ated (test code = 742-7) 0.3 X10E3/UL 0.1-0.9 [facility]lymphocyte count, blood, [id number] 10:14:00* Test Item Value Reference Range Interpretation Comme nts lymphocyte count, blood, automated (test code = 731-0) 1.6 X10E3/UL 0.7-3.1 [facility] ClevelandAbsolute [id number] 10:14:00* Test Item Value Reference Range Interpretation Comme nts Absolute Neutrophils (test c ode = 10628-8) 3.7 X10E3/UL 1.4-7.0 [facility]basophils as percent of blood [id number] 10:14:00* Test Item Value Reference Range Interpretation Comme nts basophils as percent of bloo d leukocytes (test code = 707-0) 0 % [facility]levelandeosinophils as percent of blood [id number] 10:14:00* Test Item Value Reference Range Interpretation Comme nts eosinophils as percent of bl ood leukocytes (test code = 713-8) 3 % [facility] Healthmonocytes as percent of blood [id number] 10:14:00* Test Item Value Reference Range Interpretation Comme nts monocytes as percent of bloo d leukocytes (test code = 5905-5) 5 % [facility]lymphocytes as percent of blood [id number] 10:14:00* Test Item Value Reference Range Interpretation Comme nts lymphocytes as percent of bl ood leukocytes (test code = 736-9) 27 % [facility] Clevelandneutrophils as percent of blood [id number] 10:14:00* Test Item Value Reference Range Interpretation Comme nts neutrophils as percent of bl ood leukocytes (test code = 770-8) 65 % [facility] Clevelandplatelet [id number] 10:14:00* Test Item Value Reference Range Interpretation Comme [facility] platelet count (test code = 777-3) 165 X10E3/UL 150-379 [facility]red blood cell distribution [id number] 10:14:00* Test Item Value Reference Range Interpretation Comme [facility] red blood cell distribution width (test code = 788-0) 13.6 % 12.3-15.4 [facility] corpuscular hemoglobin concentration, [id number] 10:14:00* Test Item Value Reference Range Interpretation Comme [facility] mean corpuscular hemoglobin concentration, RBC (test code = 786-4) 34.6 G/DL 31.5-35.7 [facility] corpuscular hemoglobin, [id number] 10:14:00* Test Item Value Reference Range Interpretation Comme [facility] mean corpuscular hemoglobin, RBC (test code = 785-6) 31.0 pg 26.6-33.0 [facility] corpuscular volume, [id number] 10:14:00* Test Item Value Reference Range Interpretation Comme [facility] mean corpuscular volume, RBC (test code = 787-2) 90 fL 79-97 [facility]hematocrit, [id number] 10:14:00* Test Item Value Reference Range Interpretation Comme nts hematocrit, blood (test code = 4544-3) 45.6 % 37.5-51. 0 [facility] Clevelandhemoglobin, [id number] 10:14:00* Test Item Value Reference Range Interpretation Comme nts hemoglobin, blood (test code = 718-7) 15.8 g/dL 12.6-17.7 [facility] Clevelanderythrocyte (RBC) [id number] 10:14:00* Test Item Value Reference Range Interpretation Comme [facility] erythrocyte (RBC) count (janett t code = 789-8) 5.09 X10E6/UL 4.14-5.80 [facility]leukocyte count, [id number] 10:14:00* Test Item Value Reference Range Interpretation Comme [facility] leukocyte count, blood (test code = 6690-2) 5.8 X10E3/UL 3.4-10.8 [facility] ClevelandCD4/CD8 [id number] 10:14:00* Test Item Value Reference Range Interpretation Comme [facility] CD4/CD8 ratio (test code = 42731) 1.39 (unknown unit) 0.92-3.72 [facility] ClevelandT-suppressor cells (CD8) as percent of blood lymphocytes 2016-07-21 10:14:00* Test Item Value Reference Range Interpretation Comme [facility] T-suppressor cells (CD8) as percent of blood lymphocytes (test code = 3517) 31.0 % 12.0-35.5 [facility]absolute [id number] 10:14:00* Test Item Value Reference Range Interpretation Comme [facility] absolute CD8 (test code = 30444) 496 (unknown unit) 109-897 [facility] Clevelandhepatitis A antibody, [id number] 12:15:41* Test Item Value Reference Range Interpretation Comme [facility] hepatitis A antibody, total (test code = 75) Reactive [facility]hepatitis B surface [id number] 12:14:34* Test Item Value Reference Range Interpretation Comme [facility] hepatitis B surface antibody (test code = 78) Non-reactive [facility] ClevelandT-helper cells (CD4) as percent of blood lymphocytes 2016-04-15 12:13:24* Test Item Value Reference Range Interpretation Comme [facility] T-helper cells (CD4) as perc ent of blood lymphocytes (test code = 8123-2) 42 % [facility] ClevelandHIV-1RNA, serum, by PCR, [id number] 12:13:09 * Test Item Value Reference Range Interpretation Comme nts HIV-1RNA, serum, by PCR, paula ntitative (test code = 37020) <20 [facility] ClevelandT-helper cells (CD4) [id number] 12:12:46* Test Item Value Reference Range Interpretation Comme nts T-helper cells (CD4) count ( test code = 40205-6) 677 uL [facility] Clevelandtoxoplasma gondii antibody, [id number] 12:11:51* Test Item Value Reference Range Interpretation Comme nts toxoplasma gondii antibody, IgG (test code = 2430) <3 [facility] Clevelandrapid plasma reagin antibody, [id number] 12:11:28* Test Item Value Reference Range Interpretation Comme nts rapid plasma reagin antibody , serum (test code = 5291-0) 1:2 [facility] ([facility]CV[facility] RNA, PCR, [id number] 12:10:46* Test Item Value Reference Range Interpretation Comme nts Hepatitis C virus (HCV) RNA, PCR, quantitative (test code = 89553) Not-detected [facility]hepatitis C antibody, [id number] 12:10:17* Test Item Value Reference Range Interpretation Comme nts hepatitis C antibody, serum (test code = 5199-5) Non-reactive [facility]hepatitis B surface [id number] 12:09:48* Test Item Value Reference Range Interpretation Comme nts hepatitis B surface antigen (test code = 79) reactive [facility]protein, total, [id number] 12:08:51* Test Item Value Reference Range Interpretation Comme nts protein, total, serum (test code = 2885-2) 7.6 g/dL [facility] Healthalbumin, [id number] 12:08:51* Test Item Value Reference Range Interpretation Comme nts albumin, serum (test code = 1751-7) 4.0 g/dL [facility] Healthbilirubin, serum, [id number] 12:08:50* Test Item Value Reference Range Interpretation Comme nts bilirubin, serum, total (janett t code = 1975-2) 0.5 mg/dL [facility]levelandalanine aminotransferase (SGPT), [id number] 12:08:50 * Test Item Value Reference Range Interpretation Comme nts alanine aminotransferase (SG PT), serum (test code = 1742-6) 103 1/L [facility] Clevelandaspartate aminotransferase (SGOT), [id number] 12:08:50* Test Item Value Reference Range Interpretation Comme nts aspartate aminotransferase ( SGOT), serum (test code = 1920-8) 54 1/L [facility] Clevelanderythrocyte (RBC) [id number] 12:07:48* Test Item Value Reference Range Interpretation Comme nts erythrocyte (RBC) count (janett t code = 789-8) 5.26 10*6/mm3 [facility] Clevelandplatelet [id number] 12:07:47* Test Item Value Reference Range Interpretation Comme nts platelet count (test code = 777-3) 228 10*3/mm3 [facility] Clevelandhematocrit, [id number] 12:07:47* Test Item Value Reference Range Interpretation Comme [facility] hematocrit, blood (test code = 4544-3) 46.8 % [facility]hemoglobin, [id number] 12:07:46* Test Item Value Reference Range Interpretation Comme [facility] hemoglobin, blood (test code = 718-7) 16.5 g/dL [facility]leukocyte count, [id number] 12:07:46* Test Item Value Reference Range Interpretation Comme nts leukocyte count, blood (test code = 6690-2) 0.74 10*3/mm3 [facility] Clevelandtriglyceride, serum, [id number] 12:06:54* Test Item Value Reference Range Interpretation Comme nts triglyceride, serum, fasting (test code = 2571-8) 330 mg/dL [facility] ClevelandLDL cholesterol, [id number] 12:06:54* Test Item Value Reference Range Interpretation Comme [facility] LDL cholesterol, serum (test code = 2089-1) 88 mg/dL [facility] ClevelandHDL cholesterol, [id number] 12:06:54* Test Item Value Reference Range Interpretation Comme nts HDL cholesterol, serum (test code = 2085-9) 23 mg/dL [facility] Clevelandcholesterol, [id number] 12:06:53* Test Item Value Reference Range Interpretation Comme nts cholesterol, serum (test cod e = 2093-3) 153 mg/dL [facility] Clevelandcreatinine, [id number] 12:06:25* Test Item Value Reference Range Interpretation Comme nts creatinine, serum (test code = 2160-0) 0.9 mg/dL [facility] Clevelandurea nitrogen, [id number] 12:06:25* Test Item Value Reference Range Interpretation Comme nts urea nitrogen, blood (test c ode = 3094-0) 10 mg/dL [facility] Clevelandpotassium, [id number] 12:06:25* Test Item Value Reference Range Interpretation Comme nts potassium, serum (test code = 2823-3) 4.1 mmol/L [facility]odium, [id number] 12:06:24* Test Item Value Reference Range Interpretation Comme nts sodium, serum (test code = 2951-2) 142 mmol/L [facility] ClevelandT-helper cells (CD4) [id number] 15:52:58* Test Item Value Reference Range Interpretation Comme nts T-helper cells (CD4) count ( test code = 34053-5) 783 uL [facility] ClevelandHIV-1RNA, serum, by PCR, [id number] 15:52:58 * Test Item Value Reference Range Interpretation Comme nts HIV-1RNA, serum, by PCR, paula ntitative (test code = 19656) 75 /mL [facility]
[2024-10-21] MEDS ORDERED: BENZONATATE 100 MG CAP PO ONE (13:00)
--- NOTE | 2024-10-21 14:29 | ER ---
Nurse's Notes [facility] Name: Jaleel Olivas Age: 44 yrs Sex: Male : 1980 Arrival Date: 10/21/2024 Time: 12:13 Bed Treatment Private MD: Diagnosis: Cough Presentation: 10/21 12:40 Chief complaint: Patient states: PRODUCTIVE COUGH X1 WEEK. PT REPORTS THAT HIS RIBS cm10 HURT FROM COUGHING. PT ALSO REPORTS CHILLS. Coronavirus screen: Client denies travel out of the [place] in the last 14 days. Ebola Screen: Patient denies travel to an Ebola-affected area in the 21 days before illness onset. No symptoms or risks identified at this time. Initial Sepsis Screen: Does the patient meet any 2 criteria? No. Patient's initial sepsis screen is negative. Does the patient have a suspected source of infection? No. Patient's initial sepsis screen is negative. Risk Assessment: Do you want to hurt yourself or someone else? Patient reports no desire to harm self or others. Onset of symptoms was October 21, 2024. 12:40 Method Of Arrival: Ambulatory cm10 12:40 Acuity: LARRY 3 cm10 Triage Assessment: 12:44 General: Appears in no apparent distress. uncomfortable, Behavior is calm, cooperative. cm10 Pain: Complains of pain in right lateral anterior chest and left lateral anterior chest Pain currently is 7 out of 10 on a pain scale. Neuro: No deficits noted. Level of Consciousness is awake, alert, obeys commands, Oriented to person, place, time, situation, Appropriate for age. Respiratory: No deficits noted. Reports cough that is Airway is patent Respiratory effort is even, unlabored, Respiratory pattern is regular, symmetrical. Historical: - Allergies: 12:41 Codeine (Hives); cm10 12:41 Tape; cm10 - Home Meds: 12:41 lisinopril Oral [Active]; Metformin Oral [Active]; Trulicity subcutaneous [Active]; cm10 ivuvchhsjzo-segtbzdqraizs-bptvghwhc alafenamide oral [Active]; fenofibrate oral [Active]; - PMHx: 12:41 Diabetes - NIDDM; HIV; Hypertension; Hypercholesterolemia; cm10 - PSHx: 12:41 Appendectomy; cm10 - Immunization history:: Adult Immunizations up to date. - Infectious Disease History:: Denies. - Social history:: Smoking status: Reported history of juuling and/or vaping. Screenin:46 [facility] ED Fall Risk Assessment (Adult) History of falling in the last 3 months, rs5 including since admission. [facility] ED Fall Risk Assessment (Adult) Confusion or Disorientation No (0 pts) Intoxicated or Sedated No (0 pts) Impaired Gait No (0 pts) Mobility Assist Device Used No (0 pt) Altered Elimination No (0 pt) Score/Fall Risk Level 0 - 2 = Low Risk Oriented to surroundings, Maintained a safe environment. Abuse screen: Denies threats or abuse. Nutritional screening: No deficits noted. Tuberculosis screening: No symptoms or risk factors identified. Assessment: 12:46 General: Appears in no apparent distress. uncomfortable, Behavior is calm, cooperative. rs5 Pain: Complains of pain in chest Pain currently is 3 out of 10 on a pain scale. Quality of pain is described as aching, when coughing Is intermittent. Neuro: Level of Consciousness is awake, alert, obeys commands, Oriented to person, place, time, situation. Cardiovascular: Patient's skin is warm and dry. Respiratory: Reports cough that is Airway is patent Respiratory effort is even, unlabored, Respiratory pattern is regular, symmetrical. GI: Abdomen is round non-distended, Abd is soft and non tender X 4 quads. : No signs and/or symptoms were reported regarding the genitourinary system. EENT: No signs and/or symptoms were reported regarding the EENT system. Derm: Skin is intact, Skin is pink, warm \T\ dry. Musculoskeletal: Range of motion: intact in all extremities. 12:56 Reassessment: Patient and/or family updated on plan of care and expected duration. Pain rs5 level reassessed. Patient is alert, oriented x 3, equal unlabored respirations, skin warm/dry/pink. 14:10 Reassessment: Patient and/or family updated on plan of care and expected duration. Pain ss level reassessed. Patient is alert, oriented x 3, equal unlabored respirations, skin warm/dry/pink. 14:40 Reassessment: Patient and/or family updated on plan of care and expected duration. Pain ss level reassessed. Patient is alert, oriented x 3, equal unlabored respirations, skin warm/dry/pink. Vital Signs: 12:40 BP 175 / 101; Pulse 87; Resp 16; Temp 98.8(O); Pulse Ox 96% on R/A; Weight 68.04 kg; cm10 Height 5 ft. 5 in. ; Pain 7/10; 14:20 BP 151 / 81; Pulse 74; Resp 17; Pulse Ox 97% on R/A; ss 12:40 Body Mass Index 24.96 (68.04 kg, 165.1 cm) cm10 12:40 Pain Scale: Adult cm10 ED Course: 12:17 Patient arrived in ED. sj2 12:18 Matthieu Santiago PA is PHCP. cp 12:18 Kwadwo Thomas MD is Attending Physician. cp 12:41 Triage completed. cm10 12:44 Arm band placed on right wrist. Patient placed in waiting room. cm10 12:46 Patient has correct armband on for positive identification. Placed in gown. Bed in low rs5 position. Call light in reach. Side rails up X2. 12:46 No provider procedures requiring assistance completed. rs5 12:54 Mason Byrd, RN is Primary Nurse. rs5 13:49 XRAY Chest Pa And Lat (2 Views) In Process Unspecified. EDMS 14:45 Provided Education on: discharge instructions . ss 14:45 IV discontinued, intact, bleeding controlled, No redness/swelling at site. Pressure ss dressing applied. Administered Medications: 13:06 Drug: Tessalon Perle PO 200 mg PO once Route: PO; rs5 14:01 Follow up: Response: No adverse reaction ss Medication: 12:58 VIS not applicable for this client. rs5 Outcome: 14:29 Discharge ordered by MD. cp 14:45 Discharged to home ambulatory, ss 14:45 Condition: stable ss 14:45 Discharge instructions given to patient, family, Instructed on discharge instructions, follow up and referral plans. medication usage, Demonstrated understanding of instructions, follow-up care, medications, Prescriptions given X 3, 14:47 Patient left the ED. rs5 Signatures: Dispatcher [employer] EDMS Kendra Martinez RN RN ss Matthieu Santiago PA PA cp Mason Byrd, RN RN rs5 Mely Crawley RN RN cm[address] sj2
--- NOTE | 2024-10-21 14:29 | EDPHYS ---
Physician Documentation [facility] Name: Jaleel Olivas Age: 44 yrs Sex: Male : 1980 Arrival Date: 10/21/2024 Time: 12:13 Bed Treatment Private MD: ED Physician Kwadwo Thomas HPI: 10/21 12:55 This 44 yrs old Male presents to ER via Ambulatory with complaints of Painful cp Cough. 12:55 The patient or guardian reports cough, that is intermittent, with productive sputum, cp that is purulent. Onset: The symptoms/episode began/occurred 1 week(s) ago. Severity of symptoms: in the emergency department the symptoms are unchanged, despite home interventions. Associated signs and symptoms: Pertinent positives: headache with cough, Pertinent negatives: diarrhea, fever, sore throat, vomiting. Historical: - Allergies: 12:41 Codeine (Hives); cm10 12:41 Tape; cm10 - Home Meds: 12:41 lisinopril Oral [Active]; Metformin Oral [Active]; Trulicity subcutaneous [Active]; cm10 rnabttcfcde-[id number]-nxygdrzvu alafenamide oral [Active]; fenofibrate oral [Active]; - PMHx: 12:41 Diabetes - NIDDM; HIV; Hypertension; Hypercholesterolemia; cm10 - PSHx: 12:41 Appendectomy; cm10 - Immunization history:: Adult Immunizations up to date. - Infectious Disease History:: Denies. - Social history:: Smoking status: Reported history of juuling and/or vaping. ROS: 13:00 Constitutional: Negative for body aches, chills, fever, poor PO intake, cp 13:00 Eyes: Negative for injury, pain, redness, and discharge, cp 13:00 ENT: Negative for drainage from ear(s), ear pain, sore throat, difficulty swallowing, difficulty handling secretions, 13:00 Cardiovascular: Positive for chest pain, with cough, 13:00 Respiratory: Positive for cough, "sounds productive", Negative for shortness of breath, wheezing, 13:00 Abdomen/GI: Negative for abdominal pain, vomiting, diarrhea, constipation, 13:00 Neuro: Positive for headache, Negative for altered mental status, weakness, 13:00 All other systems are negative, Exam: 13:05 Constitutional: The patient appears in no acute distress, alert, awake, non-toxic, well cp developed, well nourished, 13:05 Head/Face: Normocephalic, atraumatic. cp 13:05 Eyes: Periorbital structures: appear normal, Conjunctiva: normal, no exudate, no injection, Sclera: no appreciated abnormality, Lids and lashes: appear normal, bilaterally, 13:05 ENT: External ear(s): are unremarkable, Nose: is normal, Mouth: Lips: moist, Oral mucosa: moist, Posterior pharynx: Airway: no evidence of obstruction, patent, 13:05 Chest/axilla: Inspection: normal, 13:05 Cardiovascular: Rate: normal, Rhythm: regular, Edema: is not appreciated, JVD: is not appreciated, 13:05 Respiratory: the patient does not display signs of respiratory distress, Respirations: normal, no use of accessory muscles, no retractions, labored breathing, is not present, Breath sounds: decreased breath sounds, are not appreciated, stridor, is not appreciated, wheezing: is not appreciated, 13:05 Abdomen/GI: Exam negative for discomfort, distension, guarding, Inspection: abdomen appears normal, Vital Signs: 12:40 BP 175 / 101; Pulse 87; Resp 16; Temp 98.8(O); Pulse Ox 96% on R/A; Weight 68.04 kg; cm10 Height 5 ft. 5 in. ; Pain 7/10; 14:20 BP 151 / 81; Pulse 74; Resp 17; Pulse Ox 97% on R/A; ss 12:40 Body Mass Index 24.96 (68.04 kg, 165.1 cm) cm10 12:40 Pain Scale: Adult cm10 MDM: 12:47 Medical Screening Exam initiated cp 13:15 Differential Diagnosis: Bronchitis Influenza Pharyngitis Otitis Media Viral Syndrome cp Pneumonia. 14:28 Data reviewed: vital signs, nurses notes, radiologic studies, plain films. cp 14:28 Independent interpretation of the following test(s) in the Emergency Department X-Ray: cp My interpretation is images of chest negative for focal pneumonia. Counseling: I had a detailed discussion with the patient and/or guardian regarding the historical points, exam findings, and any diagnostic results supporting the discharge/admit diagnosis, radiology results, to return to the emergency department if symptoms worsen or persist or if there are any questions or concerns that arise at home. 12/16 12:48 Order name: XRAY Chest Pa And Lat (2 Views) cp Administered Medications: 13:06 Drug: Tessalon Perle PO 200 mg PO once Route: PO; rs5 14:01 Follow up: Response: No adverse reaction ss Disposition: 18:12 Co-signature as Attending Physician, Kwadwo Thomas MD I reviewed the patient's care rn provided by the Advanced Practice Provider and agree with the diagnosis and treatment plan. Disposition Summary: 10/21/24 14:29 Discharge Ordered Notes: Location: Home cp Problem: new cp Symptoms: have improved cp Condition: Stable cp Diagnosis - Cough cp Followup: cp - With: Private Physician - When: 2 - 3 days - Reason: Worsening of condition Discharge Instructions: - Discharge Summary Sheet cp - Cough, Adult cp Forms: - Work release form cp - Medication Reconciliation Form cp - Antibiotic Education cp - Prescription Opioid Use cp - Patient Portal Instructions cp - Leadership Thank You Letter cp Prescriptions: - Bromfed DM 2-30-10 mg/5 mL Oral syrup - administer 10 milliliter ORAL route every 6 hours as needed for cold symptoms; cp 240 milliliter; Refills: 0, Product Selection Permitted - Zithromax Z-Cecilio 250 mg Oral Tablet - take 1 tablet ORAL route as directed for 5 days Day 1 - take two (2) tablets cp one time. Day 2, 3, 4 , 5 take one (1) tablet once daily.; 6 tablet; Refills: 0, Product Selection Permitted Signatures: Dispatcher [employer] EDMS Kwadwo Thomas MD MD rn Page, Corey, PA PA cp Mason Byrd RN RN rs5 Mely Crawley RN RN cm10 Kendra Martinez RN ss Corrections: (The following items were deleted from the chart) 12:48 12:48 Chest Pa And Lat (2 Views)+[email or web address] ordered. EDMS EDMS
[2024-10-21 15:05] VITALS: BP 175/101; TEMP 98.8; O2SAT 96
--- NOTE | 2024-10-21 15:19 | RAD REPORT ---
EXAMINATION: TWO VIEW CHEST XR CLINICAL INDICATION: Male, 44 years old. [facility] MAIN COUGH Bed Name: [facility] TECHNIQUE: 2 view radiographs of the chest were performed. COMPARISON: 01/31/2024 FINDINGS: The lungs are well inflated and clear. No pneumothorax or sizable effusion. The heart is normal in si ze. Mediastinal contours are unremarkable. IMPRESSION: No acute or significant abnormalities.
== END 2024-10-21 14:47 | disposition home or self-care (01) ==
LOC: ER 12:13
DX: R05.9 Cough, unspecified (principal); E11.9 Type 2 diabetes mellitus without complications; I10 Essential (primary) hypertension; Z21 Asymptomatic human immunodeficiency virus [HIV] infection status
CPT/HCPCS: 71046; 99283